=== PATIENT | female | born 1935 | race Caucasian/White ===

== ENCOUNTER 2023-04-10 04:31 | Emergency (ER) | payer MEDICARE, SELFPAY ==
[2023-04-10 04:32] VITALS: BP 130/82; PULSE 65; RESP 18; O2SAT 98
--- NOTE | 2023-04-10 04:38 | ED_ITS ---
HPI - Fall General Chief Complaint: Fall Stated Complaint: FALL Time Seen by Provider: 04/10/23 04:38 History of Present Illness HPI Narrative: demented skilled nursing patient fell and sustained a nose bleed. Does not take blood thinners. Nose bleed has stop. Sent in from [place] Related Data Home Medications Medication Instructions Recorded Confirmed acetaminophen 325 mg tablet 325 mg PO Q6H PRN fever or pain 04/10/23 04/10/23 (Tylenol) aspirin 325 mg capsule 325 mg PO DAILY 04/10/23 04/10/23 buspirone 5 mg tablet mg 04/10/23 calcium carbonate 600 mg-vitamin 1 tab PO DAILY 04/10/23 04/10/23 D3 20 mcg (800 unit) chewable tablet (Caltrate 600 plus D) cholecalciferol (vitamin D3) 50 04/10/23 mcg (2,000 unit) capsule ferrous sulfate 325 mg (65 mg mg PO 04/10/23 iron) tablet,delayed release sertraline 25 mg tablet mg 04/10/23 Allergies Allergy/AdvReac Type Severity Reaction Status Date / Time No Known Drug Allergies Allergy Verified 04/10/23 04:41 Exam Constitutional Vital Signs, click to edit/add: Last Vital Signs Pulse 65 04/10/23 04:32 Resp 18 04/10/23 04:32 BP 130/82 04/10/23 04:32 Pulse Ox 98 04/10/23 04:32 O2 Del Method Room Air 04/10/23 04:32 Common normals: no apparent distress and alert Eye Common normals: EOMs intact bilaterally and conjunctivae normal Respiratory Common normals: normal respiratory effort and no use of accessory muscles Cardio Common normals: regular rate, regular rhythm, S1 normal heart sound and S2 normal heart sound GI Common normals: Normal to inspection, nondistended, normoactive bowel sounds present, soft to palpation and non-tender Extremity Common normals: normal to inspection and full ROM Neuro Common normals: moves all extremities Psych Appearance: grossly normal Course Vital Signs Vital signs: Vital Signs Pulse Rate 65 04/10/23 04:32 Respiratory Rate 18 04/10/23 04:32 Blood Pressure 130/82 04/10/23 04:32 Pulse Oximetry 98 04/10/23 04:32 Oxygen Delivery Method Room Air 04/10/23 04:32 Pulse Rate 65 04/10/23 04:32 Respiratory Rate 18 04/10/23 04:32 Blood Pressure 130/82 04/10/23 04:32 Pulse Oximetry 98 04/10/23 04:32 Oxygen Delivery Method Room Air 04/10/23 04:32 MDM - Fall MDM Narrative Medical decision making narrative: patient presents after a fall striking her face and a nose bleed. Bleed stop spontaneously. Patient demented and not able to provide any history. Her nephew did show up and felt she was normal baseline to him. I did perform a CT of her brain and findings of age indeterminate mastoiditis. Will discharge patient back to the skilled nursing and recommend consult with ENT regarding the mastoiditis Lab Data Labs: Lab Results 04/10/23 04/10/23 Range/Units 04:50 05:15 WBC 7.2 (4.0-11.0) 10^3/uL RBC 3.68 L (4.20-5.40) 10^6/uL Hgb 11.9 L (12.0-16.0) g/dL Hct 34.5 L (36.0-48.0) % MCV 93.8 (81.0-99.0) fL MCH 32.3 (26.7-34.0) pg MCHC 34.5 (29.9-35.2) g/dL RDW 13.2 (11.0-15.0) % Plt Count 338 (150-450) 10^3/uL MPV 9.2 L (9.5-13.5) fL Neut % (Auto) 70.5 (43.0-75.0) % Lymph % (Auto) 17.5 L (20.5-60.0) % Caroline % (Auto) 10.8 (1.7-12.0) % Eos % (Auto) 0.4 L (0.9-7.0) % Baso % (Auto) 0.4 (0.2-2.0) % Neut # (Auto) 5.1 (1.4-6.5) 10^3/uL Lymph # (Auto) 1.3 (1.2-3.8) 10^3/uL Caroline # (Auto) 0.8 (0.3-0.8) 10^3/uL Eos # (Auto) 0.0 (0.0-0.7) 10^3/uL Baso # (Auto) 0.0 (0.0-0.1) 10^3/uL Abs Immat Gran (auto) 0.03 (0.00-0.03) 10^3/uL Imm/Tot Granulo (auto) 0.4 (0.0-0.5) % Sodium 136 (136-145) mmol/L Potassium 3.3 L (3.5-5.1) mmol/L Chloride 100 (98-107) mmol/L Carbon Dioxide 29.1 (21.0-32.0) mmol/L Anion Gap 10.2 BUN 11.0 (7.0-18.0) mg/dL Creatinine 0.58 (0.55-1.02) mg/dL Est GFR ( Amer) >60 (>=60) Est GFR (Non-Af Amer) >60 (>=60) BUN/Creatinine Ratio 19.0 Glucose 134 H (74-106) mg/dL Calcium 9.2 (8.5-10.1) mg/dL Stool Occult Blood Negative Discharge Plan Discharge Chief Complaint: Fall Clinical Impression: Chronic mastoiditis, right ear, Acute anterior epistaxis Patient Disposition: Home, Self-Care Prescriptions / Home Meds: No Action buspirone 5 mg tablet sertraline 25 mg tablet ferrous sulfate 325 mg (65 mg iron) tablet,delayed release (DR/EC) PO cholecalciferol (vitamin D3) 50 mcg (2,000 unit) capsule aspirin 325 mg capsule 325 mg PO DAILY Caltrate 600 plus D 600 mg-20 mcg (800 unit) tablet,chewable 1 tab PO DAILY acetaminophen [Tylenol] 325 mg tablet 325 mg PO Q6H PRN (Reason: fever or pain) Instructions: Nosebleed (ED), Mastoiditis (ED) Additional Instructions: consult ENT to manage mastoiditis Stand Alone Forms: Portal Instructions Referrals: ASHLEY BONILLA [Primary Care Provider] - 1 week
--- NOTE | 2023-04-10 04:40 | CT_ITS ---
The [address] [address] Patient Name: JIM GARCIA MRN: [id number] date: 1935 Sex: F Assigned Patient Location: ER Current Patient Location: ER Accession/Order Number: [id number] Exam Date: 04/10/2023 05:10 Report Date: 04/10/2023 05:48 At the request of: SHEYLA JAIME Procedure: CT head/brain wo con INDICATION: 87 years old; Female. Fall. TECHNIQUE: CT Head (ax/cor/sag reformats). Ionizing radiation dose reduced via iterative reconstruction/FBP blend and body size kV/mA adjustment. Comparison: Head CT dated 09/27/2022. FINDINGS: POSTOPERATIVE CHANGES: None. BRAIN PARENCHYMA: Old lacunar infarction in the santosh on the left. Old lacunar infarction versus dilated perivascular space in the lentiform nucleus on the right. No intraparenchymal or extra-axial hemorrhage. No mass effect. No midline shift or herniation. Patchy and confluent low-density in the white matter without mass effect consistent with small vessel ischemic change. VENTRICLES/EXTRA-AXIAL SPACES: Enlarged, consistent with atrophy. SINUSES/MASTOIDS: Visualized sinuses are clear. There is opacification of the right mastoid air cells, mastoid antrum, and right middle ear. This is consistent with indeterminate age otomastoiditis. Underlying cholesteatoma not excluded. Recommend follow-up with ENT. MSK: No displaced or depressed calvarial fracture. Generalized bony demineralization. Degenerative change in the TMJ. OTHER: No hyperdense intraluminal thrombus. Vascular calcifications. TECHNIQUE: CT imaging of the cervical spine was performed. IV contrast: None. Dose reduction techniques were achieved by using automated exposure control and/or adjustment of mA and/or kV according to patient size and/or use of iterative reconstruction technique. COMPARISON: Cervical CT dated 09/27/2022. Due to difficulty with patient positioning, the anterior margin of C7 and the upper thoracic vertebral bodies are not included in the examination. FINDINGS: POSTOPERATIVE CHANGES: None. ALIGNMENT: There is accentuation the normal cervical curve. The horizontal orientation of the lower cervical upper thoracic spine is seen which would be most consistent with increased thoracic kyphosis. This is unchanged as compared to the prior study. COMPRESSION FRACTURES: Generalized bony demineralization is seen. No fracture or vertebral body collapse is seen. No asymmetric widening of the facets is noted. PREVERTEBRAL SOFT TISSUES: Normal. CRANIOCERVICAL JUNCTION: There is a normal relationship of the occipital condyles, lateral masses of C1, and articular surfaces of C2. The base of the dens and body of C2 are intact. There is narrowing of the predental space with sclerosis and spurring. Spurring arising from the anterior arch of C1 with pseudoarthrosis between the osteophytes and the adjacent clivus. POSTERIOR FOSSA: Cerebellar tonsils are above the foramen magnum. Disc levels: C2-C3: No disc herniation. No spinal canal or foraminal narrowing. C3-C4: No disc herniation. No spinal canal or foraminal narrowing. C4-C5: No disc herniation. No spinal canal or foraminal narrowing. C5-C6: No disc herniation. No spinal canal or foraminal narrowing. C6-C7: No disc herniation. No spinal canal or foraminal narrowing. C7-T1: The anterior portion the vertebral bodies are not included. The central canal and neural foramina are patent. UPPER THORACIC SPINE: The anterior aspects of the T1 and T2 vertebral bodies are not included. The central canal and neural foramina are patent. OTHER: No thyroid nodule or adenopathy. CT/CT head/brain wo con IMPRESSION: 1. 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 Atrophy. 3. Vascular calcification. 4. Opacification of the right mastoids, mastoid antrum, and middle ear. This is consistent with indeterminate age otomastoiditis. Recommend ENT evaluation. 5. Allowing for difficulties with patient positioning, no fracture is seen. No focal disc herniation or bony stenosis is noted. Electronically authenticated by: NADYA KAHN Date: 04/10/2023 05:48
--- NOTE | 2023-04-10 04:40 | CT_ITS ---
The [address] [address] Patient Name: JIM GARCIA MRN: [id number] date: 1935 Sex: F Assigned Patient Location: ED.MAIN Current Patient Location: Accession/Order Number: [id number] Exam Date: 04/10/2023 05:13 Report Date: 04/10/2023 05:48 At the request of: SHEYLA JAIME Procedure: CT cervical spine wo con INDICATION: 87 years old; Female. Fall. TECHNIQUE: CT Head (ax/cor/sag reformats). Ionizing radiation dose reduced via iterative reconstruction/FBP blend and body size kV/mA adjustment. Comparison: Head CT dated 09/27/2022. FINDINGS: POSTOPERATIVE CHANGES: None. BRAIN PARENCHYMA: Old lacunar infarction in the santosh on the left. Old lacunar infarction versus dilated perivascular space in the lentiform nucleus on the right. No intraparenchymal or extra-axial hemorrhage. No mass effect. No midline shift or herniation. Patchy and confluent low-density in the white matter without mass effect consistent with small vessel ischemic change. VENTRICLES/EXTRA-AXIAL SPACES: Enlarged, consistent with atrophy. SINUSES/MASTOIDS: Visualized sinuses are clear. There is opacification of the right mastoid air cells, mastoid antrum, and right middle ear. This is consistent with indeterminate age otomastoiditis. Underlying cholesteatoma not excluded. Recommend follow-up with ENT. MSK: No displaced or depressed calvarial fracture. Generalized bony demineralization. Degenerative change in the TMJ. OTHER: No hyperdense intraluminal thrombus. Vascular calcifications. TECHNIQUE: CT imaging of the cervical spine was performed. IV contrast: None. Dose reduction techniques were achieved by using automated exposure control and/or adjustment of mA and/or kV according to patient size and/or use of iterative reconstruction technique. COMPARISON: Cervical CT dated 09/27/2022. Due to difficulty with patient positioning, the anterior margin of C7 and the upper thoracic vertebral bodies are not included in the examination. FINDINGS: POSTOPERATIVE CHANGES: None. ALIGNMENT: There is accentuation the normal cervical curve. The horizontal orientation of the lower cervical upper thoracic spine is seen which would be most consistent with increased thoracic kyphosis. This is unchanged as compared to the prior study. COMPRESSION FRACTURES: Generalized bony demineralization is seen. No fracture or vertebral body collapse is seen. No asymmetric widening of the facets is noted. PREVERTEBRAL SOFT TISSUES: Normal. CRANIOCERVICAL JUNCTION: There is a normal relationship of the occipital condyles, lateral masses of C1, and articular surfaces of C2. The base of the dens and body of C2 are intact. There is narrowing of the predental space with sclerosis and spurring. Spurring arising from the anterior arch of C1 with pseudoarthrosis between the osteophytes and the adjacent clivus. POSTERIOR FOSSA: Cerebellar tonsils are above the foramen magnum. Disc levels: C2-C3: No disc herniation. No spinal canal or foraminal narrowing. C3-C4: No disc herniation. No spinal canal or foraminal narrowing. C4-C5: No disc herniation. No spinal canal or foraminal narrowing. C5-C6: No disc herniation. No spinal canal or foraminal narrowing. C6-C7: No disc herniation. No spinal canal or foraminal narrowing. C7-T1: The anterior portion the vertebral bodies are not included. The central canal and neural foramina are patent. UPPER THORACIC SPINE: The anterior aspects of the T1 and T2 vertebral bodies are not included. The central canal and neural foramina are patent. OTHER: No thyroid nodule or adenopathy. CT/CT cervical spine wo con IMPRESSION: 1. 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 Atrophy. 3. Vascular calcification. 4. Opacification of the right mastoids, mastoid antrum, and middle ear. This is consistent with indeterminate age otomastoiditis. Recommend ENT evaluation. 5. Allowing for difficulties with patient positioning, no fracture is seen. No focal disc herniation or bony stenosis is noted. Electronically authenticated by: NADYA KAHN Date: 04/10/2023 05:48
[2023-04-10 05:19] LABS: Basophils Percent Auto 0.4 % (0.2-2.0); Eosinophils Percent Auto 0.4 % (0.9-7.0); Hematocrit 34.5 % (36.0-48.0); Hemoglobin 11.9 g/dL (12.0-16.0); Immature Granulocytes Abs Auto 0.03 10^3/uL (0.00-0.03); Immature Granulocytes Pct Auto 0.4 % (0.0-0.5); Lymphocytes Absolute Auto 1.3 10^3/uL (1.2-3.8); Lymphocytes Percent Auto 17.5 % (20.5-60.0); Mean Corpuscular HGB Conc 34.5 g/dL (29.9-35.2); Mean Corpuscular Hemoglobin 32.3 pg (26.7-34.0); Mean Corpuscular Volume 93.8 fL (81.0-99.0); Mean Platelet Volume 9.2 fL (9.5-13.5); Monocytes Absolute Auto 0.8 10^3/uL (0.3-0.8); Monocytes Percent Auto 10.8 % (1.7-12.0); Neutrophils Absolute Auto 5.1 10^3/uL (1.4-6.5); Neutrophils Percent Auto 70.5 % (43.0-75.0); Platelet Count 338 10^3/uL (150-450); Red Blood Count 3.68 10^6/uL (4.20-5.40); Red Cell Distribution Width 13.2 % (11.0-15.0); White Blood Count 7.2 10^3/uL (4.0-11.0)
[2023-04-10] MEDS: 0.9 % SODIUM CHLORIDE 1,000 ML 999 ML IV (05:20)
[2023-04-10 05:27] LABS: Anion Gap 10.2; Calcium 9.2 mg/dL (8.5-10.1); Carbon Dioxide 29.1 mmol/L (21.0-32.0); Chloride 100 mmol/L (98-107); Estimated GFR (African America >60 (>=60); Estimated GFR (Non-African Ame >60 (>=60); Glucose 134 mg/dL (74-106); Potassium 3.3 mmol/L (3.5-5.1); Sodium 136 mmol/L (136-145)
[2023-04-10 05:28] LABS: Occult Blood Negative
== END 2023-04-10 06:37 | disposition home or self-care (01) ==
PROVIDERS: Emergency Provider Internal Medicine; PCP Nurse Practitioner
DX: R04.0 Epistaxis (principal); H70.11 Chronic mastoiditis, right ear; Z79.82 Long term (current) use of aspirin; Z79.899 Other long term (current) drug therapy; W19.XXXA Unspecified fall, initial encounter
CPT/HCPCS: 36415; 70450; 72125; 80048; 85025; 99285; G0328

== ENCOUNTER 2023-07-28 13:52 | Emergency (ER) | payer MEDICARE, SELFPAY ==
[2023-07-28 14:07] VITALS: PULSE 76; RESP 18; TEMP 36.6; BMI 19.4
--- NOTE | 2023-07-28 14:15 | XR_ITS ---
The [address] [address] Patient Name: JIM GARCIA MRN: [id number] date: 1935 Sex: F Assigned Patient Location: ER Current Patient Location: ER Accession/Order Number: [id number] Exam Date: 07/28/2023 14:34 Report Date: 07/28/2023 14:50 At the request of: BONIFACIO LEMOS Procedure: XR ankle RT min 3V PROCEDURE: XR ankle RT min 3V COMPARISON: None. HISTORY: FALL A COUPLE DAYS AGO FINDINGS: BONES:No acute fracture or dislocation. Mild degenerative changes. Mild enthesopathic spurring plantar calcaneus SOFT TISSUES:Moderate bimalleolar soft tissue swelling EFFUSION:None visible. OTHER: Negative. XR/XR ankle RT min 3V IMPRESSION: Soft tissue swelling, no acute fracture Electronically authenticated by: SOPHIE BARKER Date: 07/28/2023 14:50
[2023-07-28 14:18] VITALS: PULSE 84; O2SAT 99
--- NOTE | 2023-07-28 14:53 | ED_ITS ---
Documented by User: Lucille Carrillo 07/28/23 15:18 HPI - Extremity Injury (Lower) General Chief Complaint: Extremity Injury, Lower Stated Complaint: LOWER EXTREMITY SWELLING TO RIGHT LEG Time Seen by Provider: 07/28/23 14:52 Source: patient Mode of arrival: walk-in Limitations: no limitations History of Present Illness HPI Narrative: 87-year-old female presents to the emergency room with chief complaint right ankle pain. patient had a witnessed fall at home in the senior living two days ago presents today with right ankle pain.Patient and family member denies striking her head. Patient states only right ankle tenderness but does not hurt as much now. Patient does have borderline dementia. No obvious swelling deformity other than right ankle swelling to all other extremities small abr asion to left knee. Related Data Home Medications Medication Instructions Recorded Confirmed acetaminophen 325 mg tablet 325 mg PO Q6H PRN fever or pain 04/10/23 07/28/23 (Tylenol) aspirin 325 mg capsule 325 mg PO DAILY 04/10/23 07/28/23 buspirone 5 mg tablet 5 mg PO DAILY 04/10/23 07/28/23 calcium carbonate 600 mg-vitamin 1 tab PO DAILY 04/10/23 07/28/23 D3 20 mcg (800 unit) chewable tablet (Caltrate 600 plus D) cholecalciferol (vitamin D3) 50 50 mcg PO DAILY 04/10/23 07/28/23 mcg (2,000 unit) capsule ferrous sulfate 325 mg (65 mg 325 mg PO DAILY 04/10/23 07/28/23 iron) tablet,delayed release sertraline 25 mg tablet 25 mg PO Q24H 04/10/23 07/28/23 Allergies Allergy/AdvReac Type Severity Reaction Status Date / Time No Known Drug Allergies Allergy Verified 04/10/23 04:41 Review of Systems ROS Narrative All Systems are negative except as noted/marked. Exam Narrative Exam Narrative: Nurses note and vital signs reviewed and patient is not hypoxic. General: The patient appears well and in no apparent distress. Patient is resting comfortably on cart. Skin: Warm, dry, no pallor noted. There is no rash noted. Head: Normocephalic, atraumatic Eye: Normal conjunctiva, no drainage, EOMI. PERRL Ears, Nose, Mouth, and Throat: oral mucosa is moist. Nares patent. Mouth without vesicles. Ear canals patent. Tm's without Erythema Cardiovascular: Regular Rate and Rhythm Respiratory: Patient is in no distress, no accessory muscle use, lungs are clear to auscultation, no wheezing, rales or rhonchi Musculoskeletal: right ankle swelling, no obvious dislocation, pulses intact latera sThe patient has no evidence of calf tenderness, no pitting edema, symmetrical pulses noted bilaterally Neurological: A&O x4, normal speech Psychiatric: Cooperative Constitutional Vital Signs, click to edit/add: Last Vital Signs Temp 97.8 F 07/28/23 14:07 Pulse 84 07/28/23 14:18 Resp 18 07/28/23 14:07 Pulse Ox 99 07/28/23 14:18 O2 Del Method Room Air 07/28/23 14:07 Course Vital Signs Vital signs: Vital Signs Temperature 97.8 F 07/28/23 14:07 Pulse Rate 76 07/28/23 14:07 Respiratory Rate 18 07/28/23 14:07 Oxygen Delivery Method Room Air 07/28/23 14:07 Temperature 97.8 F 07/28/23 14:07 Pulse Rate 84 07/28/23 14:18 Respiratory Rate 18 07/28/23 14:07 Pulse Oximetry 99 07/28/23 14:18 Oxygen Delivery Method Room Air 07/28/23 14:07 MDM - Extremity Injury (Lower) MDM Narrative Medical decision making narrative: She presented here with a chief complaint of fall two days ago at her nursing facility. She is alert and oriented appropriate to herself she does have a history of dementia. Patient denies any head or neck pain and bruising swelling or abnormalities. She is brought here by family members chief complaint right ankle swelling left knee abrasion. X-rays of right ankle shows no acute deformity or fracture. Patient will be placed in an Caesar wrap. She'll follow-up Dr. Willett's office for ankle sprain. Caesar wrap applied by nursing staff extremity is neurovascular intact before and after application. Ankle sprain Rice care instructions were given. Family members at bedside agree with plan of care Differential Diagnosis Differential diagnosis: Likely ankle sprain and strain Medical Records Attestation: I reviewed the patient's medical records. Imaging Data ankle: Attestation: I have reviewed the pertinent imaging results. Radiologist's impression: JIM GARCIA MRN: [facility]:[id number] date: 1935 Sex: F Assigned Patient Location: ER Current Patient Location: ER Accession/Order Number: [id number] Exam Date: 07/28/2023 14:34 Report Date: 07/28/2023 14:50 At the request of: BONIFACIO GAMEZ Procedure: XR ankle RT min 3V PROCEDURE: XR ankle RT min 3V COMPARISON: None. HISTORY: FALL A COUPLE DAYS AGO FINDINGS: BONES:No acute fracture or dislocation. Mild degenerative changes. Mild enthesopathic spurring plantar calcaneus SOFT TISSUES:Moderate bimalleolar soft tissue swelling EFFUSION:None visible. OTHER: Negative. IMPRESSION: Soft tissue swelling, no acute fracture Electronically authenticated by: SOPHIE BARKER Date: 07/28/2023 14:50 Discharge Plan Discharge Chief Complaint: Extremity Injury, Lower Clinical Impression: Ankle sprain and strain Patient Disposition: Home, Self-Care Time of Disposition Decision: 15:07 Condition: Good Prescriptions / Home Meds: No Action buspirone 5 mg tablet 5 mg PO DAILY sertraline 25 mg tablet 25 mg PO Q24H ferrous sulfate 325 mg (65 mg iron) tablet,delayed release (DR/EC) 325 mg PO DAILY cholecalciferol (vitamin D3) 50 mcg (2,000 unit) capsule 50 mcg PO DAILY aspirin 325 mg capsule 325 mg PO DAILY Caltrate 600 plus D 600 mg-20 mcg (800 unit) tablet,chewable 1 tab PO DAILY acetaminophen [Tylenol] 325 mg tablet 325 mg PO Q6H PRN (Reason: fever or pain) Instructions: P.R.I.C.E. Treatment (ED), Ankle Strain (ED) Stand Alone Forms: Portal Instructions Referrals: Ever Willett DPM [Physician] - 1 week ASHLEY BONILLA [Primary Care Provider] - 1 week Discharge Date/Time: 07/28/23 15:26 Documented by User: Bonifacio Gamez MD 07/28/23 20:56 HPI - Extremity Injury (Lower) General Chief Complaint: Extremity Injury, Lower Stated Complaint: LOWER EXTREMITY SWELLING TO RIGHT LEG Time Seen by Provider: 07/28/23 14:52 Related Data Home Medications Medication Instructions Recorded Confirmed acetaminophen 325 mg tablet 325 mg PO Q6H PRN fever or pain 04/10/23 07/28/23 (Tylenol) aspirin 325 mg capsule 325 mg PO DAILY 04/10/23 07/28/23 buspirone 5 mg tablet 5 mg PO DAILY 04/10/23 07/28/23 calcium carbonate 600 mg-vitamin 1 tab PO DAILY 04/10/23 07/28/23 D3 20 mcg (800 unit) chewable tablet (Caltrate 600 plus D) cholecalciferol (vitamin D3) 50 50 mcg PO DAILY 04/10/23 07/28/23 mcg (2,000 unit) capsule ferrous sulfate 325 mg (65 mg 325 mg PO DAILY 04/10/23 07/28/23 iron) tablet,delayed release sertraline 25 mg tablet 25 mg PO Q24H 04/10/23 07/28/23 Allergies Allergy/AdvReac Type Severity Reaction Status Date / Time No Known Drug Allergies Allergy Verified 04/10/23 04:41 Exam Constitutional Vital Signs, click to edit/add: Last Vital Signs Temp 97.8 F 07/28/23 14:07 Pulse 84 07/28/23 14:18 Resp 18 07/28/23 14:07 Pulse Ox 99 07/28/23 14:18 O2 Del Method Room Air 07/28/23 14:07 Course Vital Signs Vital signs: Vital Signs Temperature 97.8 F 07/28/23 14:07 Pulse Rate 76 07/28/23 14:07 Respiratory Rate 18 07/28/23 14:07 Oxygen Delivery Method Room Air 07/28/23 14:07 Temperature 97.8 F 07/28/23 14:07 Pulse Rate 84 07/28/23 14:18 Respiratory Rate 18 07/28/23 14:07 Pulse Oximetry 99 07/28/23 14:18 Oxygen Delivery Method Room Air 07/28/23 14:07 MDM - Extremity Injury (Lower) MDM Narrative Medical decision making narrative: She presented here with a chief complaint of fall two days ago at her nursing facility. She is alert and oriented appropriate to herself she does have a history of dementia. Patient denies any head or neck pain and bruising swelling or abnormalities. She is brought here by family members chief complaint right ankle swelling left knee abrasion. X-rays of right ankle shows no acute deformity or fracture. Patient will be placed in an Caesar wrap. She'll follow-up Dr. Willett's office for ankle sprain. Caesar wrap applied by nursing staff extremity is neurovascular intact before and after application. Ankle sprain Rice care instructions were given. Family members at bedside agree with plan of care I, Dr Gamez, have reviewed the above progress note and course of action in the ER; agree with the above. I have gone over history and physical, and discussed disposition and treatment plan with the patient. Discharge Plan Discharge Chief Complaint: Extremity Injury, Lower Clinical Impression: Ankle sprain and strain Patient Disposition: Home, Self-Care Time of Disposition Decision: 15:07 Condition: Good Prescriptions / Home Meds: No Action buspirone 5 mg tablet 5 mg PO DAILY sertraline 25 mg tablet 25 mg PO Q24H ferrous sulfate 325 mg (65 mg iron) tablet,delayed release (DR/EC) 325 mg PO DAILY cholecalciferol (vitamin D3) 50 mcg (2,000 unit) capsule 50 mcg PO DAILY aspirin 325 mg capsule 325 mg PO DAILY Caltrate 600 plus D 600 mg-20 mcg (800 unit) tablet,chewable 1 tab PO DAILY acetaminophen [Tylenol] 325 mg tablet 325 mg PO Q6H PRN (Reason: fever or pain) Instructions: P.R.I.C.E. Treatment (ED), Ankle Strain (ED) Stand Alone Forms: Portal Instructions Referrals: Ever Willett DPM [Physician] - 1 week ASHLEY BONILLA [Primary Care Provider] - 1 week Discharge Date/Time: 07/28/23 15:26
== END 2023-07-28 15:26 | disposition home or self-care (01) ==
PROVIDERS: Emergency Provider Emergency Medicine; PCP Nurse Practitioner
DX: S93.401A Sprain of unspecified ligament of right ankle, initial encounter (principal); S96.911A Strain of unspecified muscle and tendon at ankle and foot level, right foot, initial encounter; W19.XXXA Unspecified fall, initial encounter; Z79.82 Long term (current) use of aspirin; Z79.899 Other long term (current) drug therapy; F03.90 Unspecified dementia, unspecified severity, without behavioral disturbance, psychotic disturbance, mood disturbance, and anxiety
CPT/HCPCS: 73610; 99283

== ENCOUNTER 2023-09-22 17:54 | Emergency (ER) | payer MEDICARE, SELFPAY ==
--- OUTSIDE RECORDS SUMMARY | 2023-09-22 18:01 | XMS_ITS | CCD ---
Author Name Unknown Address [address] [place] [address] Organization [facility] Care Team Providers Care [employer] Optician Name Role Phone Rylie Galvan Unavailable Richard He Primary Care Provider UnavailRichard Loomis Primary Care Provider UnavailRichard Loomis Primary Care Provider UnavailJULES Chaves Primary Care Provider MD Juliet Green Admit Provider MD Leighton Valente Other Provider MD Galen Escobar Other Provider MD Lilian Van Other Provider DO Silvestre Saunders Other Provider [phone] MD Bulmaro Moses II Other Provider MD Yani Cyr Attending Provider ADELE KATZ Admitting Unavailable DR TAYLOR PENA Consulting Unavailable OLVERA, ASHLEY Primary Care Unavailable ADELE KATZ Attending Unavailable ADELE KATZ Consulting Unavailable PAY ., DR VALDOVINOS Attending Unavailable OLVERA, ASHLEY Primary Care Unavailable PAY ., DR VALDOVINOS Consulting Unavailable PAY ., DR VALDOVINOS Admitting Unavailable ISRAEL JUÁREZ Consulting Unavailable DIAB ., JACIEL Admitting Unavailable OLVERA, ASHLEY Primary Care Unavailable DIAB ., JACIEL Attending Unavailable Kanu Burk Consulting Unavailable SOPHIE SINGLETON Consulting Unavailable DIAB ., JACIEL Consulting Unavailable RAVEN RENNER Consulting Unavailable MADELEINE HEREDIA Consulting Unavailable DR GAB LEE Attending Unavailable OLVERA, ASHLEY Primary Care Unavailable DR GAB LEE Consulting Unavailable DR GAB LEE Admitting Unavailable JANETTE, DR MARISSA Orosco Consulting Unavailnico PENA, DR TAYLOR Grimes Consulting Unavailable BRIGHT, DR LENI Steele Consulting Unavailable ERICKA ., FAHAD HAMILTON Consulting UnavailVAEL Maciel Consulting Unavailable ASHLEY OLVERA Primary Care Unavailable JACKIE, DR ONEIL Consulting Unavailable JACKIE, DR ONEIL Admitting Unavailable JACKIE, DR ONEIL Attending Unavailable Leighton Valente Consulting Unavailable Juliet Green Admitting Unavailable Yani Cyr Attending Unavailable Ashley Olvera Primary Care Unavailable Galen Escobar Consulting Unavailable Lilian Van Consulting Unavailable Silvestre Saunders Consulting Unavailable Bulmaro Moses II Consulting UnavailLeighton Anglin Unavailable Medications Current Medications Medication Drug Class(es) Dates Sig (Normalized) Sig (Original) acetaminophen 500 mg oral tablet (4 sources) Start: 10-03-2022 take 1000 mg by mouth every eight hours Acetaminophen Active 1000 MG PO Every 8 hours 0 October 03, 2022 12:00am Start: 04-09-2016 take 1 tablet by senia th every four hours as needed acetaminophen (TYLENOL) 325 mg tablet Take 1 tablet by mouth every 4 hours as needed. 0 04/09/2016 Active Comment on above: Take 1 tablet by senia th every 4 hours as needed. aspirin 325 mg oral tablet (1 source) Platelet Aggregation Inhibitor, Nonsteroidal Anti-inflammatory Drug Start: 10-03-2022 take 325 mg by mouth once daily Aspirin Active 325 MG PO Daily 0 October 03, 2022 12:00am Calcium Citrate-Vitamin D3 (1 source) Start: 09-28-2022 take 1 tablet by mouth once daily Calcium Citrate-Vitamin D3 Active 1 TAB PO Daily September 28, 2022 1:00am Citracal +D3 250-107-500 MG-MG-UNIT (2 sources) Citracal +D3 250-107-500 MG-MG-UNIT Orally Active ferrous sulfate 325 mg oral tablet (3 sources) Start: 09-28-2022 take 325 mg by mouth once daily Ferrous Sulfate Active 325 MG PO Daily September 28, 2022 1:00am take 1 tablet by mouth once jeanine y Ferrous Sulfate 325 (65 Fe) MG 1 tablet Orally Once a day Active take 1 tablet by senia th every twenty-four hours Ferrous Sulfate 325 (65 Fe) MG 1 tablet Orally Once a day Active lutein 20 mg oral tablet (5 sources) take 1 capsule by mo [facility] once daily Lutein 20 MG 1 capsule with a meal Orally Once a day Active LUTEIN ORAL Take by mouth. 0 Active [facility] hours Lutein 20 MG 1 capsule with a meal Orall y Once a day Active Comment on above: Take by mouth. Completed/Discontinued Medications Medication Drug Class(es) Dates Sig (Normalized) Sig (Original) ibandronic acid 150 mg oral tablet (5 sources) Bisphosphonate Start: 05-06-2014 Ibandronate 150 mg tablet loperamide hydrochloride 2 mg oral capsule (3 sources) Opioid Agonist Start: 04-19-2016 take 1 capsule by mouth twice daily, then take 1 capsule by mouth at breakfast, then take 1 capsule by mouth at dinner loperamide (IMODIUM) 2 mg cap(s) Take 1 capsule by mouth twice daily. Take 1 capsule with breakfast and 1 with dinner 60 capsule 5 04/19/2016 Active Comment on above: [facility]. Take 1 capsule with breakfast and 1 with dinner meclizine hydrochloride 25 mg chewable tablet (3 sources) Antiemetic take 1 tablet by mouth three times daily as needed Meclizine HCl 25 mg Chew Tab Take by mouth three times daily as needed. 0 Active Comment on above: Take by mouth three times daily as needed. meloxicam 7.5 mg oral tablet (3 sources) Nonsteroidal Anti-inflammatory Drug Start: 05-15-2014 meloxicam (MOBIC) 7.5 mg tablet MV,CA,MIN/IRON FUM/FA/VIT K (MULTI FOR HER ORAL) (3 sources) MV,CA,MIN/IRON FUM/FA/VIT K (MULTI FOR HER ORAL) Take by mouth. 0 Active Comment on above: Take by mouth. oxyCODONE hydrochloride 5 mg oral tablet (3 sources) Opioid Agonist Start: 04-09-2016 take 1 tablet by mouth every four hours as needed oxyCODONE immediate release (PERCOLONE) 5 mg immediate release tablet Take 1 tablet by mouth every 4 hours as needed. 40 tablet 0 04/09/2016 Active Comment on above: Take 1 tablet by [facility] every 4 hours as needed. simvastatin 20 mg oral tablet (5 sources) HMG-CoA Reductase Inhibitor Start: 05-16-2014 simvastatin (ZOCOR) 20 mg tablet Suprep Bowel Prep - (2 sources) Start: 01-27-2016 Suprep Bowel Prep - 1 Orally Daily for 1 day(s) Jan, Not-Taking Problems Active Problems Problem Classification Problem Date Documented Date Episodic/Chronic Cancer of colon (5 sources) Malignant tumor of colon; Translations: [Malignant neoplasm of colon, unspecified] Onset: 04-04-2016 04-04-2016 Chronic Deficiency and other anemia (2 sources) Iron deficiency anemia; Translations: [Iron deficiency anemia, unspecified] Episodic Deficiency and other anemia (4 sources) Anemia, unspecified; Translations: [ANEMIA UNSPECIFIED] Onset: 10-14-2022 Episodic Diverticulosis and diverticulitis (2 sources) Diverticular disease; Translations: [Diverticulosis of intestine, part unspecified, without perforation or abscess without bleeding] Chronic E Codes: Fall (6 sources) Unspecified fall, initial encounter; Translations: [Fall] Onset: 12-13-2021 Resolved: 12-13-2021 Episodic Fluid and electrolyte disorders (2 sources) Hypokalemia; Translations: [Hypo-osmolality and hyponatremia] Onset: 05-12-2022 Episodic Fracture of neck of femur (hip) (4 sources) Fracture of bone of hip region; Translations: [Fracture of unspecified part of neck of left femur, initial encounter for closed fracture] Onset: 09-28-2022 09-28-2022 Episodic Other aftercare (1 source) Other half-way (current) drug therapy; Translations: [OTH [facility] CURRENT DRUG THERAPY] Onset: 09-29-2022 Episodic Other non-traumatic joint disorders (3 sources) Pain in left hip; Translations: [PAIN IN LEFT HIP] Onset: 09-27-2022 Episodic Spondylosis; intervertebral disc disorders; other back problems (2 sources) Other intervertebral disc degeneration, lumbar region; Translations: [Other cervical disc degeneration, unspecified cervical region] Onset: 09-29-2022 Chronic Thyroid disorders (1 source) Hypothyroidism, unspecified; Translations: [HYPOTHYROIDISM UNSPECIFIED] Onset: 05-12-2022 Chronic Unclassified (1 source) CONTACT W/AND (SUSP) EXPOS COVID-19; Translations: [CONTACT W/AND (SUSP) EXPOS COVID-19] Onset: 05-12-2022 Unclassified (1 source) Displaced intertrochanteric fracture of left femur, initial encounter for closed fracture; Translations: [Displaced intertrochanteric fracture of left femur, initial encounter for closed fracture] Onset: 09-28-2022 Past or Other Problems Problem Classification Problem Date Documented Da te Episodic/Chronic Bacterial infection; unspecified site (2 sources) Proteus (mirabilis) (morganii) as the cause of diseases classified elsewhere; Translations: [Unspecified Escherichia coli [E. coli] as the cause of diseases classified elsewhere] Onset: 05-12-2022 Episodic Deficiency and other anemia (1 source) Iron deficiency anemia, unspecified; Translations: [IRON DEFICIENCY ANEMIA UNSPECIFIED] Onset: 05-12-2022 Episodic E Codes: Place of occurrence (1 source) Unspecified place in unspecified non-institutional (private) residence as the place of occurrence of the external cause Onset: 12-13-2021 Resolved: 12-13-2021 Episodic Nonspecific chest pain (1 source) Other chest pain; Translations: [OTHER CHEST PAIN] Onset: 05-12-2022 Episodic Other fractures (1 source) Unspecified fracture of sacrum, initial encounter for closed fracture; Translations: [UNS FX SACRUM INITIAL CLOS FRACTURE] Onset: 05-03-2022 Episodic Other fractures (4 sources) Other specified fracture of right pubis, initial encounter for closed fracture; Translations: [OTHER SPEC FX RT PUBIS INIT CLOS FX] Onset: 03-31-2022 Episodic Other fractures (1 source) Collapsed vertebra, not elsewhere classified, thoracic region, subsequent encounter for fracture with routine healing; Translations: [COLLAPSED VERT NEC THOR SUB RTN HL] Onset: 05-12-2022 Episodic Other injuries and conditions due to external causes (1 source) Unspecified injury of head, initial encounter Onset: 12-13-2021 Resolved: 12-13-2021 Episodic Other non-traumatic joint disorders (5 sources) Pain in right hip; Translations: [PAIN IN RIGHT HIP] Onset: 12-13-2021 Resolved: 12-13-2021 Episodic Screening and history of mental health and substance abuse codes (1 source) Personal history of nicotine dependence; Translations: [PERSONAL HISTORY OF NICOTINE DEPEND] Onset: 12-14-2021 Episodic Superficial injury; contusion (1 source) Contusion of right hip, initial encounter; Translations: [CONTUSION RIGHT HIP INITIAL ENC] Onset: 12-14-2021 Episodic Urinary tract infections (1 source) Urinary tract infection, site not specified; Translations: [UTI SITE NOT SPECIFIED] Onset: 05-12-2022 Episodic Results Test Name Value Interpretation Reference Range Facility CBC AUTO DIFFon 10-14-2022 BASO # 0.0 103/ul Normal 0.0-0.1 [facility] Comment on above: Performed By: #### C HELENA CARCAMO #### [facility] [address] [address] [address] Nidhi Dawn Basophils/100 WBC (Bld) 0.3 % Normal 0.2-2.0 [facility] Comment on above: Performed By: #### C HELENA CARCAMO #### [facility] [address] [place] [address] Dr. Nidhi Dawn EO # 0.1 103/ul Normal 0.0-0.7 [facility] Comment on above: Performed By: #### C HELENA CARCAMO #### [facility] [address] [place] [address] Dr. Nidhi Dawn Eosinophils/100 WBC (Bld) 1.2 % Normal 0.9-7.0 [facility] Comment on above: Performed By: #### C HELENA CARCAMO #### [facility] [address] [place] [address] Dr. Nidhi Dawn Erythrocyte distribution width (RBC) [Ratio] 15.7 % Critically high 11.0-15.0 [facility] Comment on above: Performed By: #### C HELENA CARCAMO #### [facility] [address] [place] [address] Dr. Nidhi Dawn Hematocrit (Bld) [Volume fraction] 28.5 % Critically low 36.0-48.0 [facility] Comment on above: Performed By: #### C HELENA CARCAMO #### [facility] [address] [place] [address] Dr. Nidhi Dawn Hemoglobin (Bld) [Mass/Vol] 8.9 g/dL Critically low 12.0-16.0 [facility] Comment on above: Performed By: #### C DONA, CMADM #### [facility] [address] [address] [address] Nidhi Dawn IG # 0.04 10e3/ul Critically high 0.00-0.03 [facility] Comment on above: Performed By: #### C MP, CMADM #### [facility] [address] [address] [address] Nidhi Dawn IG % 0.7 % Critically high 0.0-0.5 [facility] Comment on above: Performed By: #### C MP, CMADM #### [facility] [address] [address] [address] Nidhi Dawn LYMPH # 0.9 103/ul Critically low 1.2-3.8 [facility] Comment on above: Performed By: #### C MP, CMADM #### [facility] [address] [place] [address] Dr. Nidhi Dawn Lymphocytes/100 WBC (Bld) 15.6 % Critically low 20.5-60.0 [facility] Comment on above: Performed By: #### C MP, CMADM #### [facility] [address] [address] [address] Nidhi Dawn MANUAL DIFF REQ NO Normal [facility] Comment on above: Performed By: #### C MP, CMADM #### [facility] [address] [address] [address] Nidhi Dawn MCH (RBC) [Entitic mass] 30.8 pg Normal 26.7-34.0 [facility] Comment on above: Performed By: #### C MP, CMADM #### [facility] [address] [address] [address] Nidhi Dawn MCHC (RBC) [Mass/Vol] 31.2 g/dL Normal 29.9-35.2 [facility] Comment on above: Performed By: #### C MP, CMADM #### [facility] [address] [place] [address] Dr. Nidhi Dawn MCV (RBC) [Entitic vol] 98.6 fL Normal 81.0-99.0 [facility] Comment on above: Performed By: #### C MP, CMADM #### [facility] [address] [address] [address] Nidhi Dawn MONO # 0.7 103/ul Normal 0.3-0.8 [facility] Comment on above: Performed By: #### C MP, CMADM #### [facility] [address] [address] [address] Nidhi Dawn Monocytes/100 WBC (Bld) 11.1 % Normal 1.7-12.0 [facility] Comment on above: Performed By: #### C MP, CMADM #### [facility] [address] [address] [address] Nidhi Dawn NEUT # 4.2 103/ul Normal 1.4-6.5 [facility] Comment on above: Performed By: #### C MP, CMADM #### [facility] [address] [place] [address] Dr. Nidhi Dawn Neutrophils/100 WBC (Bld) 71.1 % Normal 43.0-75.0 [facility] Comment on above: Performed By: #### C DONA, CMADM #### [facility] [address] [place] [address] Dr. Nidhi Dawn Platelet mean volume (Bld) [Entitic vol] 8.5 fL Critically low 9.5-13.5 [facility] Comment on above: Performed By: #### C DONA, CMADM #### [facility] [address] [address] [address] Nidhi Dawn PLT 614 103/ul Critically high 150-450 [facility] Comment on above: Performed By: #### C DONA, CMADM #### [facility] [address] [address] [address] Nidhi Dawn RBC 2.89 106/ul Critically low 4.20-5.40 [facility] Comment on above: Performed By: #### C DONA, CMADM #### [facility] [address] [address] [address] Nidhi Dawn WBC 5.8 103/ul Normal 4.0-11.0 [facility] Comment on above: Performed By: #### C MP, CMADM #### [facility] [address] [address] [address] Nidhi Dawn Basic Metabolic Panelon - Anion gap [Moles/Vol] 8.2 mmol/L Normal 6.0-15.0 [facility] Comment on above: Performed By: #### F ER, FE and TIBC #### [facility] [address] Calcium [Mass/Vol] 9.1 mg/dL Normal 8.6-10.3 [facility] Comment on above: Performed By: #### F ER, FE and TIBC #### [facility] [address] Chloride [Moles/Vol] 102 mmol/L Normal 98-107 [facility] Comment on above: Performed By: #### F ER, FE and TIBC #### [facility] [address] CO2 [Moles/Vol] 30.5 mmol/L Normal 21.0-31.0 [facility] Comment on above: Performed By: #### F ER, FE and TIBC #### [facility] [address] [place] [address] [place] Creatinine [Mass/Vol] 0.35 mg/dL Low 0.60-1.20 [facility] Comment on above: Performed By: #### F ER, FE and TIBC #### [facility] [address] [place] [address] [place] Creatinine Clr Calc Pharmacy 35.59 Normal [facility] Comment on above: Result Comment: PERF ORMED BY: [place] [address] PATHOLOGIST [employer] CLARICE OSWALD M.D. Performed By: #### F ER, FE and TIBC #### [facility] [address] [place] [address] [place] GFR/1.73 sq M.predicted MDRD (S/P/Bld) [Vol rate/Area] mL/min/{1.73_m2} Normal [facility] Comment on above: Performed By: #### F ER, FE and TIBC #### [facility] [address] Glucose [Mass/Vol] 104 mg/dL Normal 74-109 [facility] Comment on above: Result Comment: [place] Glucose Reference Range is dependent on time and content of last meal. Glucose of more than 200 mg/dL in a nonstressed, ambulatory subject supports the diagnosis of Diabetes Mellitus. ADA recommended reference range Performed By: #### F ER, FE and TIBC #### [facility] [address] Potassium [Moles/Vol] 3.7 mmol/L Normal 3.5-5.1 [facility] Comment on above: Performed By: #### F ER, FE and TIBC #### [facility] [address] Sodium [Moles/Vol] 137 mmol/L Normal 136-145 [facility] Comment on above: Performed By: #### F ER, FE and TIBC #### [facility] [address] Urea nitrogen [Mass/Vol] 10 mg/dL Normal 7-25 [facility] Comment on above: Performed By: #### F ER, FE and TIBC #### [facility] [address] Basophils Auto (Bld) [#/Vol] Ordered By: Yani Cyr on 10-03-2022 Basophils (Bld) [#/Vol] 0.0 10*3/uL 0.0-0.2 [facility] Basophils/100 WBC Auto (Bld) Ordered By: Yani Cyr on 10-03-2022 Basophils/100 WBC (Bld) 0.4 % . [facility] Calcium [Mass/volume] in Ser um or PlasmaOrdered By: Yani Cyr on 10-03-2022 Calcium [Mass/Vol] 9.1 mg/dL 8.6-10.3 [facility] Carbon dioxide, total [Moles /volume] in Serum or PlasmaOrdered By: Yani Cyr on 10-03-2022 CO2 [Moles/Vol] 30.5 mmol/L 21.0-31.0 [facility] Chloride [Moles/volume] in S enma or PlasmaOrdered By: Yani Cyr on 10-03-2022 Chloride [Moles/Vol] 102 mmol/L 98-107 [facility] Complete Blood Count Auto Di ffon 10-03-2022 Basophils (Bld) [#/Vol] 0.0 10*3/uL Normal 0.0-0.2 [facility] Comment on above: Result Comment: PERF ORMED BY: [place] [address] PATHOLOGIST [employer] CLARICE OSWALD M.D. Performed By: #### F ER, FE and TIBC #### [address] Basophils/100 WBC (Bld) 0.4 % Normal . [facility] Comment on above: Performed By: #### F ER, FE and TIBC #### [facility] [address] [place] [address] Eosinophils (Bld) [#/Vol] 0.1 10*3/uL Normal 0.0-0.45 [facility] Comment on above: Performed By: #### F ER, FE and TIBC #### [facility] [address] [place] [address] [place] Eosinophils/100 WBC (Bld) 1.9 % Normal . [facility] Comment on above: Performed By: #### F ER, FE and TIBC #### [facility] [address] [place] [address] Erythrocyte distribution width (RBC) [Ratio] 14.5 % Normal 11.9-15.3 [facility] Comment on above: Performed By: #### F ER, FE and TIBC #### [facility] [address] [place] [address] Hematocrit (Bld) [Volume fraction] 25.7 % Low 34.0-46.4 [facility] Comment on above: Performed By: #### F ER, FE and TIBC #### [address] Hemoglobin (Bld) [Mass/Vol] 8.7 g/dL Low 11.8-15.4 [facility] Comment on above: Performed By: #### F ER, FE and TIBC #### [address] Lymphocytes (Bld) [#/Vol] 1.1 10*3/uL Normal 1.00-4.8 [facility] Comment on above: Performed By: #### F ER, FE and TIBC #### [address] Lymphocytes/100 WBC (Bld) 14.2 % Normal . [facility] Comment on above: Performed By: #### F ER, FE and TIBC #### [address] MCH (RBC) [Entitic mass] 31.5 pg Normal 24.7-34.3 [facility] Comment on above: Performed By: #### F ER, FE and TIBC #### [address] MCV (RBC) [Entitic vol] 92.5 fL Normal 80-100 [facility] Comment on above: Performed By: #### F ER, FE and TIBC #### [address] Mean Corpuscular HGB Conc 34.1 g/dL Normal 32.0-35.0 [facility] Comment on above: Performed By: #### F ER, FE and TIBC #### [address] Monocytes (Bld) [#/Vol] 0.8 10*3/uL Normal 0.0-0.8 [facility] Comment on above: Performed By: #### F ER, FE and TIBC #### [address] [place] [address] [place] Monocytes/100 WBC (Bld) 10.5 % Normal . [facility] Comment on above: Performed By: #### F ER, FE and TIBC #### [facility] [address] Neutrophils (Bld) [#/Vol] 5.5 10*3/uL Normal 1.8-7.7 [facility] Comment on above: Performed By: #### F ER, FE and TIBC #### [facility] [address] Neutrophils/100 WBC (Bld) 73.0 % Normal . [facility] Comment on above: Performed By: #### F ER, FE and TIBC #### [address] NRBC% 0.1 /100{WBC} Normal 0-0.5 [facility] Comment on above: Performed By: #### F ER, FE and TIBC #### [address] Platelet mean volume (Bld) [Entitic vol] 7.5 fL Normal 6.3-10.7 [facility] Comment on above: Performed By: #### F ER, FE and TIBC #### [place] [address] [place] Platelets (Bld) [#/Vol] 322 10*3/uL Normal 150-450 [facility] Comment on above: Performed By: #### F ER, FE and TIBC #### [place] [address] [place] RBC (Bld) [#/Vol] 2.77 10*6/uL Low 3.60-5.00 [facility] Comment on above: Performed By: #### F ER, FE and TIBC #### [place] [address] [place] WBC (Bld) [#/Vol] 7.6 10*3/uL Normal 3.8-11.6 [facility] Comment on above: Performed By: #### F ER, FE and TIBC #### [facility] [address] Creatinine [Mass/volume] in Serum or PlasmaOrdered By: Yani Cyr on 10-03-2022 Creatinine [Mass/Vol] 0.35 mg/dL 0.60-1.20 [facility] Eosinophils Auto (Bld) [#/Vo l]Ordered By: Yani Cyr on 10-03-2022 Eosinophils (Bld) [#/Vol] 0.1 10*3/uL 0.0-0.45 [facility] Eosinophils/100 WBC Auto (Bl d)Ordered By: Yani Cyr on 10-03-2022 Eosinophils/100 WBC (Bld) 1.9 % . [facility] Erythrocyte distribution wid th Auto (RBC) [Ratio]Ordered By: Yani Cyr on 10-03-2022 Erythrocyte distribution width (RBC) [Ratio] 14.5 % 11.9-15.3 [facility] Glucose [Mass/volume] in Ser um or PlasmaOrdered By: Yani Cyr on 10-03-2022 Glucose [Mass/Vol] 104 mg/dL 74-109 [facility] Comment on above: ADA recommended refe rence rangeRandom Glucose Reference Range is dependent on time and content of last meal. Glucose of more than 200 mg/dL in a nonstressed, ambulatory subject supports the diagnosis of Diabetes Mellitus. Hematocrit Auto (Bld) [Volum e fraction]Ordered By: Yani Cyr on 10-03-2022 Hematocrit (Bld) [Volume fraction] 25.7 % 34.0-46.4 [facility] Hemoglobin [Mass/volume] in BloodOrdered By: Yani Cyr on 10-03-2022 Hemoglobin (Bld) [Mass/Vol] 8.7 g/dL 11.8-15.4 [facility] - Chemistry and C hemistry - challengeOrdered By: Yani Cyr on 10-03-2022 GFR/1.73 sq M.predicted MDRD (S/P/Bld) [Vol rate/Area] mL/min/{1.73_m2} [facility] Leukocytes [#/volume] correc anna marie for nucleated erythrocytes in Blood by Automated counOrdered By: Yani Cyr on 10-03-2022 WBC corrected for nucl RBC Auto (Bld) [#/Vol] 7.6 10*3/uL 3.8-11.6 [facility] Lymphocytes Auto (Bld) [#/Vo l]Ordered By: Yani Cyr on 10-03-2022 Lymphocytes (Bld) [#/Vol] 1.1 10*3/uL 1.00-4.8 [facility] Lymphocytes/100 WBC Auto (Bl d)Ordered By: Yani Cyr on 10-03-2022 Lymphocytes/100 WBC (Bld) 14.2 % . [facility] MCH Auto (RBC) [Entitic mass ]Ordered By: Yani Cyr on 10-03-2022 MCH (RBC) [Entitic mass] 31.5 pg 24.7-34.3 [facility] MCHC Auto (RBC) [Mass/Vol]Or dered By: Yani Cyr on 10-03-2022 MCHC (RBC) [Mass/Vol] 34.1 g/dL 32.0-35.0 [facility] MCV Auto (RBC) [Entitic vol] Ordered By: Yani Cyr on 10-03-2022 MCV (RBC) [Entitic vol] 92.5 fL 80-100 [facility] [facility] Monocytes Auto (Bld) [#/Vol] Ordered By: Yani Cyr on 10-03-2022 Monocytes (Bld) [#/Vol] 0.8 10*3/uL 0.0-0.8 [facility] Monocytes/100 WBC Auto (Bld) Ordered By: Yani Cyr on 10-03-2022 Monocytes/100 WBC (Bld) 10.5 % . [facility] Neutrophils Auto (Bld) [#/Vo l]Ordered By: Yani Cyr on 10-03-2022 Neutrophils (Bld) [#/Vol] 5.5 10*3/uL 1.8-7.7 [facility] Neutrophils/100 WBC Auto (Bl d)Ordered By: Yani Cyr on 10-03-2022 Neutrophils/100 WBC (Bld) 73.0 % . [facility] No Panel InformationOrdered By: Yani Cyr on 10-03-2022 Pharmacy Creatinine Clearance (Chem 35.59 [facility] Nucleated erythrocytes [Pres ence] in Blood by Automated countOrdered By: Yani Cyr on 10-03-2022 Nucleated RBC Auto Ql (Bld) 0.1 /100{WBC} 0-0.5 [facility] Platelet mean volume Auto (B ld) [Entitic vol]Ordered By: Yani Cyr on 10-03-2022 Platelet mean volume (Bld) [Entitic vol] 7.5 fL 6.3-10.7 [facility] Platelets Auto (Bld) [#/Vol] Ordered By: Yani Cyr on 10-03-2022 Platelets (Bld) [#/Vol] 322 10*3/uL 150-450 [facility] Potassium [Moles/volume] in Serum or PlasmaOrdered By: Yani Cyr on 10-03-2022 Potassium [Moles/Vol] 3.7 mmol/L 3.5-5.1 [facility] RBC Auto (Bld) [#/Vol]Ordere d By: Yani Cyr on 10-03-2022 RBC (Bld) [#/Vol] 2.77 10*6/uL 3.60-5.00 [facility] Serum or plasma anion gap de terminationOrdered By: Yani Cyr on 10-03-2022 Anion gap [Moles/Vol] 8.2 mmol/L 6.0-15.0 [facility] Sodium [Moles/volume] in Ser um or PlasmaOrdered By: Yani Cyr on 10-03-2022 Sodium [Moles/Vol] 137 mmol/L 136-145 [facility] Urea nitrogen [Mass/volume] in Serum or PlasmaOrdered By: Yani Cyr on 10-03-2022 Urea nitrogen [Mass/Vol] 10 mg/dL 7-25 [facility] WBC Auto (Bld) [#/Vol]Ordere d By: Yani Cyr on 10-03-2022 WBC (Bld) [#/Vol] 7.6 10*3/uL 3.8-11.6 [facility] XR hip LT min 2V(w/wo pelvis )*on 10-03-2022 XR hip LT min 2V(w/wo pelvis)* [facility] [place] [address] [place] [id number] XRay Report Signed Patient: Annamaria Garcia MR#: [id number] : 1935 Acct:[id number] Age/Sex: 87 / F ADM Date: 09/28/22 Loc: Room: [address] [place] [address] Type: ADM IN Attending Dr: Yani Cyr MD Copies to: MD Leighton Gibson MD Ordering Provider: Leighton Valente MD Date of Service: 10/03/22 XR/XR hip LT min 2V(w/wo pelvis)*: fx LEFT HIP - 2 views: CLINICAL HISTORY: Status post left hip TFN COMPARISON: Intraoperative study 09/28/2022 FINDINGS: Soft tissues demonstrate post surgical changes. Left hip hardware in place without radiographic complication. Presumed remote left-sided pubic rami fractures. XR/XR hip LT min 2V(w/wo pelvis)* IMPRESSION: No evidence of hardware complication. Impression dictated by: Josse Forrester Jr., D.O.10/03/2022 10:04 AM Dictation Location: [place] [address] Transcribed By: [facility] 10/03/22 1004 Dictated By: Josse Forrester Jr, DO 10/03/22 1003 Signed By: 10/03/22 1004 Normal [facility] Hemoglobin and Hematocriton 10-02-2022 Hematocrit (Bld) [Volume fraction] 21.3 % Low 34.0-46.4 [facility] Comment on above: Result Comment: PERF ORMED BY: [place] [address] PATHOLOGIST [employer] CLARICE OSWALD M.D. Performed By: #### F ER, FE and TIBC #### [place] [address] [place] Hemoglobin (Bld) [Mass/Vol] 7.3 g/dL Low 11.8-15.4 [facility] Comment on above: Performed By: #### F ER, FE and TIBC #### [address] Complete Blood Count Auto Di ffon 10-01-2022 Basophils (Bld) [#/Vol] 0.0 10*3/uL Normal 0.0-0.2 [facility] Comment on above: Result Comment: PERF ORMED BY: [place] [address] PATHOLOGIST [employer] CLARICE OSWALD M.D. Performed By: #### C BC #### [address] Basophils/100 WBC (Bld) 0.3 % Normal . [facility] Comment on above: Performed By: #### C BC #### [address] Eosinophils (Bld) [#/Vol] 0.1 10*3/uL Normal 0.0-0.45 [facility] Comment on above: Performed By: #### C BC #### [address] Eosinophils/100 WBC (Bld) 1.0 % Normal . [facility] Comment on above: Performed By: #### C BC #### [address] Erythrocyte distribution width (RBC) [Ratio] 13.8 % Normal 11.9-15.3 [facility] Comment on above: Performed By: #### C BC #### [address] Hematocrit (Bld) [Volume fraction] 21.8 % Low 34.0-46.4 [facility] Comment on above: Performed By: #### C BC #### [address] Hemoglobin (Bld) [Mass/Vol] 7.4 g/dL Low 11.8-15.4 [facility] Comment on above: Performed By: #### C BC #### [facility] [address] Lymphocytes (Bld) [#/Vol] 0.9 10*3/uL Low 1.00-4.8 [facility] Comment on above: Performed By: #### C BC #### [facility] [address] Lymphocytes/100 WBC (Bld) 12.7 % Normal . [facility] Comment on above: Performed By: #### C BC #### [facility] [address] MCH (RBC) [Entitic mass] 31.0 pg Normal 24.7-34.3 [facility] Comment on above: Performed By: #### C BC #### [address] MCV (RBC) [Entitic vol] 91.8 fL Normal 80-100 [facility] Comment on above: Performed By: #### C BC #### [address] Mean Corpuscular HGB Conc 33.8 g/dL Normal 32.0-35.0 [facility] Comment on above: Performed By: #### C BC #### [address] Monocytes (Bld) [#/Vol] 1.0 10*3/uL High 0.0-0.8 [facility] Comment on above: Performed By: #### C BC #### [place] [address] [place] Monocytes/100 WBC (Bld) 13.6 % Normal . [facility] Comment on above: Performed By: #### C BC #### [address] Neutrophils (Bld) [#/Vol] 5.3 10*3/uL Normal 1.8-7.7 [facility] Comment on above: Performed By: #### C BC #### [facility] [address] Neutrophils/100 WBC (Bld) 72.4 % Normal . [facility] Comment on above: Performed By: #### C BC #### [facility] [address] NRBC% 0.0 /100{WBC} Normal 0-0.5 [facility] Comment on above: Performed By: #### C BC #### [facility] [address] Platelet mean volume (Bld) [Entitic vol] 8.0 fL Normal 6.3-10.7 [facility] Comment on above: Performed By: #### C BC #### [address] Platelets (Bld) [#/Vol] 208 10*3/uL Normal 150-450 [facility] Comment on above: Performed By: #### C BC #### [address] RBC (Bld) [#/Vol] 2.37 10*6/uL Low 3.60-5.00 [facility] Comment on above: Performed By: #### C BC #### [address] WBC (Bld) [#/Vol] 7.3 10*3/uL Normal 3.8-11.6 [facility] Comment on above: Performed By: #### C BC #### [address] Basic Metabolic Panelon 09-21 Anion gap [Moles/Vol] 8.7 mmol/L Normal 6.0-15.0 [facility] Comment on above: Performed By: #### B MP, CBC #### [address] Calcium [Mass/Vol] 8.3 mg/dL Low 8.6-10.3 [facility] Comment on above: Performed By: #### B MP, CBC #### [facility] [address] [place] [address] [place] Chloride [Moles/Vol] 111 mmol/L High 98-107 [facility] Comment on above: Performed By: #### B MP, CBC #### [facility] [address] CO2 [Moles/Vol] 26.5 mmol/L Normal 21.0-31.0 [facility] Comment on above: Performed By: #### B MP, CBC #### [facility] [address] Creatinine [Mass/Vol] 0.37 mg/dL Low 0.60-1.20 [facility] Comment on above: Performed By: #### B MP, CBC #### [address] Creatinine Clr Calc Pharmacy 35.59 Normal [facility] Comment on above: Result Comment: PERF ORMED BY: [place] [address] PATHOLOGIST [employer] CLARICE OSWALD M.D. Performed By: #### B MP, CBC #### [place] [address] [place] GFR/1.73 sq M.predicted MDRD (S/P/Bld) [Vol rate/Area] mL/min/{1.73_m2} [facility] Comment on above: Performed By: #### B MP, CBC #### [address] Glucose [Mass/Vol] 102 mg/dL Normal 74-109 [facility] Comment on above: Result Comment: [place] Glucose Reference Range is dependent on time and content of last meal. Glucose of more than 200 mg/dL in a nonstressed, ambulatory subject supports the diagnosis of Diabetes Mellitus. ADA recommended reference range Performed By: #### B MP, CBC #### [facility] [address] [place] [address] [place] Potassium [Moles/Vol] 4.2 mmol/L Normal 3.5-5.1 [facility] Comment on above: Performed By: #### B MP, CBC #### [address] Sodium [Moles/Vol] 142 mmol/L Normal 136-145 [facility] Comment on above: Performed By: #### B MP, CBC #### [facility] [address] Urea nitrogen [Mass/Vol] 16 mg/dL Normal 7-25 [facility] Comment on above: Performed By: #### B MP, CBC #### [address] Complete Blood Count Auto Di ffon 09-30-2022 Basophils (Bld) [#/Vol] 0.0 10*3/uL Normal 0.0-0.2 [facility] Comment on above: Result Comment: PERF ORMED BY: [place] [address] PATHOLOGIST [employer] CLARICE OSWALD M.D. Performed By: #### B MP, CBC #### [address] Basophils/100 WBC (Bld) 0.3 % Normal . [facility] Comment on above: Performed By: #### B MP, CBC #### [address] Eosinophils (Bld) [#/Vol] 0.0 10*3/uL Normal 0.0-0.45 [facility] Comment on above: Performed By: #### B MP, CBC #### [address] Eosinophils/100 WBC (Bld) 0.3 % Normal . [facility] Comment on above: Performed By: #### B MP, CBC #### [address] Erythrocyte distribution width (RBC) [Ratio] 14.1 % Normal 11.9-15.3 [facility] Comment on above: Performed By: #### B MP, CBC #### [facility] [address] Hematocrit (Bld) [Volume fraction] 22.3 % Low 34.0-46.4 [facility] Comment on above: Performed By: #### B MP, CBC #### [facility] [address] Hemoglobin (Bld) [Mass/Vol] 7.8 g/dL Low 11.8-15.4 [facility] Comment on above: Performed By: #### B MP, CBC #### [facility] [address] Lymphocytes (Bld) [#/Vol] 1.0 10*3/uL Normal 1.00-4.8 [facility] Comment on above: Performed By: #### B MP, CBC #### [address] Lymphocytes/100 WBC (Bld) 12.9 % Normal . [facility] Comment on above: Performed By: #### B MP, CBC #### [address] MCH (RBC) [Entitic mass] 31.9 pg Normal 24.7-34.3 [facility] Comment on above: Performed By: #### B MP, CBC #### [address] MCV (RBC) [Entitic vol] 91.3 fL Normal 80-100 [facility] Comment on above: Performed By: #### B MP, CBC #### [address] Mean Corpuscular HGB Conc 34.9 g/dL Normal 32.0-35.0 [facility] Comment on above: Performed By: #### B MP, CBC #### [address] Monocytes (Bld) [#/Vol] 1.1 10*3/uL High 0.0-0.8 [facility] Comment on above: Performed By: #### B MP, CBC #### [facility] [address] Monocytes/100 WBC (Bld) 13.3 % Normal . [facility] Comment on above: Performed By: #### B MP, CBC #### [facility] [address] Neutrophils (Bld) [#/Vol] 5.9 10*3/uL Normal 1.8-7.7 [facility] Comment on above: Performed By: #### B MP, CBC #### [facility] [address] Neutrophils/100 WBC (Bld) 73.2 % Normal . [facility] Comment on above: Performed By: #### B MP, CBC #### [facility] [address] NRBC% 0.0 /100{WBC} Normal 0-0.5 [facility] Comment on above: Performed By: #### B MP, CBC #### [facility] [address] Platelet mean volume (Bld) [Entitic vol] 8.2 fL Normal 6.3-10.7 [facility] Comment on above: Performed By: #### B MP, CBC #### [facility] [address] [place] [address] [place] Platelets (Bld) [#/Vol] 182 10*3/uL Normal 150-450 [facility] Comment on above: Performed By: #### B MP, CBC #### [facility] [address] RBC (Bld) [#/Vol] 2.44 10*6/uL Low 3.60-5.00 [facility] Comment on above: Performed By: #### B MP, CBC #### [facility] [address] WBC (Bld) [#/Vol] 8.0 10*3/uL Normal 3.8-11.6 [facility] Comment on above: Performed By: #### B MP, CBC #### [facility] [address] [place] [id number] [facility] Ferritinon 09-30-2022 Ferritin [Mass/Vol] 53.4 ng/mL Normal 11.0-306.8 [facility] Comment on above: Order Comment: Comme nt add on Result Comment: PERF ORMED BY: [place] [address] PATHOLOGIST [employer] CLARICE OSWALD M.D. Performed By: #### F ER, FE and TIBC #### [address] Ferritin [Mass/volume] in Se rum or PlasmaOrdered By: Mimi Artis on 09-30-2022 Ferritin [Mass/Vol] 53.4 ng/mL 11.0-306.8 [facility] Hemoglobin and Hematocriton 09-30-2022 Hematocrit (Bld) [Volume fraction] 25.5 % Low 34.0-46.4 [facility] Comment on above: Result Comment: PERF ORMED BY: [place] [address] PATHOLOGIST [employer] CLARICE OSWALD M.D. Performed By: #### F ER, FE and TIBC #### [address] Hemoglobin (Bld) [Mass/Vol] 8.6 g/dL Low 11.8-15.4 [facility] Comment on above: Performed By: #### F ER, FE and TIBC #### [address] Iron [Mass/volume] in Serum or PlasmaOrdered By: Mimi Artis on 09-30-2022 Iron [Mass/Vol] 20 ug/dL 50-212 [facility] Iron and TIBC Profileon 09-21 0 % Iron Saturation 7.0 % Low 20-50 [facility] Comment on above: Order Comment: Comme nt add on Performed By: #### F ER, FE and TIBC #### [facility] [address] [place] [address] Iron [Mass/Vol] 20 ug/dL Low 50-212 [facility] Comment on above: Order Comment: Comme nt add on Performed By: #### F ER, FE and TIBC #### [facility] [address] Total Iron Binding Capacity 286 ug/dL Normal 255-450 [facility] Comment on above: Order Comment: Comme nt add on Performed By: #### F ER, FE and TIBC #### [facility] [address] Transferrin [Mass/Vol] 204 mg/dL Normal 203-362 [facility] Comment on above: Order Comment: Comme nt add on Performed By: #### F ER, FE and TIBC #### [facility] [address] Iron binding capacity [Mass/ volume] in Serum or PlasmaOrdered By: Mimi Artis on 09-30-2022 Iron binding capacity [Mass/Vol] 286 ug/dL 255-450 [facility] Iron saturation [Mass Fracti on] in Serum or PlasmaOrdered By: Mimi Artis on 09-30-2022 Iron saturation [Mass fraction] 7.0 % 20-50 [facility] Transferrin [Mass/volume] in Serum or PlasmaOrdered By: Mimi Artis on 09-30-2022 Transferrin [Mass/Vol] 204 mg/dL 203-362 [facility] Basic Metabolic Panelon 030 Anion gap [Moles/Vol] 12.9 mmol/L Normal 6.0-15.0 [facility] Comment on above: Performed By: #### B MP, SCAN CBC #### [facility] [address] [place] [address] [place] Calcium [Mass/Vol] 8.9 mg/dL Normal 8.6-10.3 [facility] Comment on above: Performed By: #### B MP, SCAN CBC #### [facility] [address] [place] [address] [place] Chloride [Moles/Vol] 108 mmol/L High 98-107 [facility] Comment on above: Performed By: #### B MP, SCAN CBC #### [facility] [address] [place] [address] [place] CO2 [Moles/Vol] 21.4 mmol/L Normal 21.0-31.0 [facility] Comment on above: Performed By: #### B MP, SCAN CBC #### [facility] [address] [place] [address] [place] Creatinine [Mass/Vol] 0.56 mg/dL Low 0.60-1.20 [facility] Comment on above: Performed By: #### B MP, SCAN CBC #### [facility] [address] [place] [address] [place] Creatinine Clr Calc Pharmacy 35.59 Normal [facility] Comment on above: Result Comment: PERF ORMED BY: [place] [address] PATHOLOGIST [employer] CLARICE OSWALD M.D. Performed By: #### B MP, SCAN CBC #### [facility] [address] [place] [address] [place] GFR/1.73 sq M.predicted MDRD (S/P/Bld) [Vol rate/Area] mL/min/{1.73_m2} Normal [facility] Comment on above: Performed By: #### B MP, SCAN CBC #### [facility] [address] [place] [address] [place] Glucose [Mass/Vol] 118 mg/dL High 74-109 [facility] Comment on above: Result Comment: [place] Glucose Reference Range is dependent on time and content of last meal. Glucose of more than 200 mg/dL in a nonstressed, ambulatory subject supports the diagnosis of Diabetes Mellitus. ADA recommended reference range Performed By: #### B MP, SCAN CBC #### [facility] [address] [place] [address] [place] Potassium [Moles/Vol] 4.3 mmol/L Normal 3.5-5.1 [facility] Comment on above: Performed By: #### B MP, SCAN CBC #### [facility] [address] Sodium [Moles/Vol] 138 mmol/L Normal 136-145 [facility] Comment on above: Performed By: #### B MP, SCAN CBC #### [facility] [address] Urea nitrogen [Mass/Vol] 16 mg/dL Normal 7-25 [facility] Comment on above: Performed By: #### B MP, SCAN CBC #### [facility] [address] Platelet adequacy [Presence] in Blood by Light microscopyOrdered By: Mimi Arits on 09-29-2022 Platelets LM Ql (Bld) Normal Normal [facility] Platelet morphology finding [Identifier] in BloodOrdered By: Mimi Artis on 09-29-2022 Platelet morphology finding Nom (Bld) Normal Normal [facility] RBC morphologyOrdered By: Rosalba Artis on 09-29-2022 RBC morphology finding Nom (Bld) Normal Normal [facility] Scan and CBCon 09-29-2022 Basophils (Bld) [#/Vol] 0.0 10*3/uL Normal 0.0-0.2 [facility] Comment on above: Performed By: #### B MP, SCAN CBC #### [facility] [address] [place] [address] Basophils/100 WBC (Bld) 0.1 % Normal . [facility] Comment on above: Performed By: #### B MP, SCAN CBC #### [facility] [address] [place] [address] [place] Eosinophils (Bld) [#/Vol] 0.0 10*3/uL Normal 0.0-0.45 [facility] Comment on above: Performed By: #### B MP, SCAN CBC #### [facility] [address] Eosinophils/100 WBC (Bld) 0.0 % Normal . [facility] Comment on above: Performed By: #### B MP, SCAN CBC #### [facility] [address] Erythrocyte distribution width (RBC) [Ratio] 14.2 % Normal 11.9-15.3 [facility] Comment on above: Performed By: #### B MP, SCAN CBC #### [address] Hematocrit (Bld) [Volume fraction] 27.0 % Low 34.0-46.4 [facility] Comment on above: Performed By: #### B MP, SCAN CBC #### [facility] [address] [place] [address] Hemoglobin (Bld) [Mass/Vol] 9.1 g/dL Low 11.8-15.4 [facility] Comment on above: Performed By: #### B MP, SCAN CBC #### [address] Lymphocytes (Bld) [#/Vol] 0.9 10*3/uL Low 1.00-4.8 [facility] Comment on above: Performed By: #### B MP, SCAN CBC #### [address] Lymphocytes/100 WBC (Bld) 7.1 % Normal . [facility] Comment on above: Performed By: #### B MP, SCAN CBC #### [address] MCH (RBC) [Entitic mass] 30.9 pg Normal 24.7-34.3 [facility] Comment on above: Performed By: #### B MP, SCAN CBC #### [address] MCV (RBC) [Entitic vol] 91.6 fL Normal 80-100 [facility] Comment on above: Performed By: #### B MP, SCAN CBC #### [facility] [address] [place] [address] Mean Corpuscular HGB Conc 33.7 g/dL Normal 32.0-35.0 [facility] Comment on above: Performed By: #### B MP, SCAN CBC #### [address] Monocytes (Bld) [#/Vol] 1.7 10*3/uL High 0.0-0.8 [facility] Comment on above: Performed By: #### B MP, SCAN CBC #### [facility] [address] Monocytes/100 WBC (Bld) 13.5 % Normal . [facility] Comment on above: Performed By: #### B MP, SCAN CBC #### [facility] [address] Neutrophils (Bld) [#/Vol] 10.2 10*3/uL High 1.8-7.7 [facility] Comment on above: Performed By: #### B MP, SCAN CBC #### [facility] [address] [place] [address] Neutrophils/100 WBC (Bld) 79.3 % Normal . [facility] Comment on above: Performed By: #### B MP, SCAN CBC #### [facility] [address] [place] [address] NRBC% 0.0 /100{WBC} Normal 0-0.5 [facility] Comment on above: Performed By: #### B MP, SCAN CBC #### [facility] [address] [place] [address] Platelet Estimate Normal Normal Normal [facility] Comment on above: Performed By: #### B MP, SCAN CBC #### [facility] [address] [place] [address] Platelet mean volume (Bld) [Entitic vol] 8.0 fL Normal 6.3-10.7 [facility] Comment on above: Performed By: #### B MP, SCAN CBC #### [facility] [address] [place] [address] Platelet Morphology Normal Normal Normal [facility] Comment on above: Result Comment: PERF ORMED BY: [place] [address] PATHOLOGIST [employer] CLARICE OSWALD M.D. Performed By: #### B MP, SCAN CBC #### [place] [id number] [place] Platelets (Bld) [#/Vol] 220 10*3/uL Normal 150-450 [facility] Comment on above: Performed By: #### B MP, SCAN CBC #### [facility] [address] RBC (Bld) [#/Vol] 2.95 10*6/uL Low 3.60-5.00 [facility] Comment on above: Performed By: #### B MP, SCAN CBC #### [facility] [address] RBC morphology finding Nom (Bld) Normal Normal Normal [facility] Comment on above: Performed By: #### B MP, SCAN CBC #### [facility] [address] WBC (Bld) [#/Vol] 12.9 10*3/uL High 3.8-11.6 [facility] Comment on above: Performed By: #### B MP, SCAN CBC #### [place] [address] [place] XR hip LT min 2V(w/wo pelvis )*on 09-29-2022 XR hip LT min 2V(w/wo pelvis)* [facility] [place] [address] [place] [address] XRay Report Signed Patient: Annamaria Garcia MR#: [id number] : 1935 Acct:[id number] Age/Sex: 87 / F ADM Date: 09/28/22 Loc: Room: 6X4148-2 Type: ADM IN Attending Dr: Adama Kothari MD Copies to: MD Leighton Paul MD Ordering Provider: Leighton Valente MD Date of Service: 09/28/22 XR/XR hip LT min 2V(w/wo pelvis)*: LT HIP TFN PORTABLE LEFT HIP -9 images: CLINICAL HISTORY: Intraoperative localization for fixation of intratrochanteric hip fracture COMPARISON: 09/28/2022 AP and lateral spot films pre as well as multiple images during placement of a dynamic hip screw with short intramedullary sona were obtained. An intratrochanteric hip fracture is again seen. There is improvement of the varus positioning of fracture fragments following fixation. DAP: 2.27 Gy cm2 Impression dictated by: Angie Francisco M.D.09/29/2022 11:29 AM Dictation Location: [place] [address] Transcribed By: [facility] 09/29/22 112 Dictated By: Angie Francisco MD 09/29/22 112 Signed By: 09/29/22 1129 Normal [facility] ABO AND RH TYPEon 09-28-2022 ABO and Rh group Nom (Bld) ABO Rh Typing A Rh Positive Normal [facility] Comment on above: Performed By: #### C MP, CMADM #### [facility] [address] [place] [address] Dr. Nidhi Dawn Albumin Levelon 09-28-2022 Albumin [Mass/Vol] 4.0 g/dL Normal 3.5-5.7 [facility] Comment on above: Result Comment: PERF ORMED BY: [place] [address] PATHOLOGIST [employer] CLARICE OSWALD M.D. Performed By: #### F ER, FE and TIBC #### [facility] [address] [place] [address] Albumin [Mass/volume] in Ser um or Plasma by Bromocresol green (BCG) dye binding methoOrdered By: Bulmaro Moses on 09-28-2022 Albumin BCG dye [Mass/Vol] 4.0 g/dL 3.5-5.7 [facility] Basic Metabolic Panelon Anion gap [Moles/Vol] 10.8 mmol/L Normal 6.0-15.0 [facility] Comment on above: Performed By: #### F ER, FE and TIBC #### [facility] [address] [place] [address] [place] Calcium [Mass/Vol] 9.0 mg/dL Normal 8.6-10.3 [facility] Comment on above: Performed By: #### F ER, FE and TIBC #### [facility] [address] [place] [address] [place] Chloride [Moles/Vol] 103 mmol/L Normal 98-107 [facility] Comment on above: Performed By: #### F ER, FE and TIBC #### [facility] [address] CO2 [Moles/Vol] 28.5 mmol/L Normal 21.0-31.0 [facility] Comment on above: Performed By: #### F ER, FE and TIBC #### [facility] [address] [place] [address] [place] Creatinine [Mass/Vol] 0.40 mg/dL Low 0.60-1.20 [facility] Comment on above: Performed By: #### F ER, FE and TIBC #### [facility] [address] [place] [address] [place] Creatinine Clr Calc Pharmacy 31.68 [facility] Comment on above: Result Comment: PERF ORMED BY: [facility] [address] [place] [address] PATHOLOGIST [employer] CLARICE OSWALD M.D. Performed By: #### F ER, FE and TIBC #### [facility] [address] GFR/1.73 sq M.predicted MDRD (S/P/Bld) [Vol rate/Area] mL/min/{1.73_m2} [facility] Comment on above: Performed By: #### F ER, FE and TIBC #### [facility] [address] [place] [address] [place] Glucose [Mass/Vol] 143 mg/dL High 74-109 [facility] Comment on above: Result Comment: [place] Glucose Reference Range is dependent on time and content of last meal. Glucose of more than 200 mg/dL in a nonstressed, ambulatory subject supports the diagnosis of Diabetes Mellitus. ADA recommended reference range Performed By: #### F ER, FE and TIBC #### [facility] [address] [place] [address] [place] Potassium [Moles/Vol] 3.3 mmol/L Low 3.5-5.1 [facility] Comment on above: Performed By: #### F ER, FE and TIBC #### [facility] [address] [place] [id number] [facility] Sodium [Moles/Vol] 139 mmol/L Normal 136-145 [facility] Comment on above: Performed By: #### F ER, FE and TIBC #### [facility] [address] [place] [id number] [facility] Urea nitrogen [Mass/Vol] 8 mg/dL Normal 7-25 [facility] Comment on above: Performed By: #### F ER, FE and TIBC #### [facility] [address] [place] [id number] [facility] CT ABD/PELVIS WO CONon 09-28 CT ABD/PELVIS WO CON EXAM: CT ABD/PELVIS WO CON TECHNIQUE: Axial CT images were obtained of the abdomen and pelvis without intravenous contrast. Sagittal and coronal reformatted images were also obtained. Dose reduction techniques were achieved by using automated exposure control and/or adjustment of mA and/or kV according to patient size and/or use of iterative reconstruction technique. HISTORY: Unspecified fall COMPARISON: 05/02/2022 FINDINGS: Lower chest: The lower lungs are clear. Liver: The liver is homogeneous with normal contours and normal size. Gallbladder: Status post cholecystectomy. No significant biliary dilatation. Pancreas: The pancreas is homogeneous without evidence for mass lesion or inflammation. Spleen: The spleen is unremarkable without evidence for mass lesion. Adrenal glands: The adrenal glands are unremarkable Kidneys and bladder: The kidneys are unremarkable with no evidence for mass lesion, hydronephrosis or inflammation. The ureters demonstrate normal caliber. The urinary bladder is unremarkable. GI Tract: Stomach is unremarkable. Visualized small bowel is unremarkable without evidence for obstruction or active inflammation. Severe diverticulosis throughout the remaining portion of the colon. Prior partial colectomy. Reproductive: Unremarkable Lymph nodes: No retroperitoneal or abdominal lymphadenopathy. Vascular: The aorta is not dilated. Peritoneum: Small amount of free fluid in the pelvis. Abdominal wall: Comminuted fracture of the proximal intertrochanteric left femur appears acute. Additional old pelvic fractures. IMPRESSION: Intertrochanteric fracture of the proximal left femur with varus angulation at the fracture site. Several old healed pelvic fractures. No additional acute abdominal findings. Electronically authenticated by: RAVEN RENNER Date: 2022-09-27 22:38 Normal [facility] CT CSPINE WO CONon 3 CT CSPINE WO CON EXAMINATION: CT CSPI NE WO CON HISTORY: Unspecified fall COMPARISON: Cervical spine CT 03/31/2022 TECHNIQUE: CT Cervical spine without IV contrast. Coronal and sagittal reformations were performed. Dose reduction techniques were achieved by using automated exposure control and/or adjustment of mA and/or kV according to patient size and/or use of iterative reconstruction technique. FINDINGS: There is a stable increase of the normal cervical lordosis. Vertebral body heights and alignments exhibit no fracture or listhesis. The dens and lateral masses of C1 are symmetric. Age-related facet and endplate changes. No prevertebral soft tissue edema. IMPRESSION: No visualized acute irregularity Electronically authenticated by: SOPHIE SINGLETON Date: 2022-09-27 22:42 Normal [facility] CT HEAD WO CONon 09-28-2022 CT HEAD WO CON EXAMINATION: CT HEAD WO CON TECHNIQUE: Axial CT images were obtained through the brain. Sagittal and coronal reformatted images were also obtained. HISTORY: Unspecified fall COMPARISON: 03/31/2022 FINDINGS: Intracranial Bleed: No evidence for acute intracranial bleed. Intracranial Mass: No evidence for mass lesion. No mass effect or midline shift. Extra-axial spaces: There is mild cerebral atrophy and proportional ventricular enlargement. White/Vasquez Matter: No acute cortical infarct. Moderate bilateral white matter chronic small vessel ischemic change. Skull/Scalp: No evidence for skull fracture or lesion. Orbits and sinuses: The orbits appear unremarkable. The visualized paranasal sinuses are clear. Opacification of the right mastoid air cells which may suggest mastoid effusion and/or mastoiditis. IMPRESSION: No acute intracranial pathology. Electronically authenticated by: RAVEN RENNER Date: 2022-09-27 22:43 Normal [facility] CT LSPINE WO CONon 3 CT LSLIEBENTHAL WO CON EXAM: CT LSPINE WO C ON HISTORY: The patient is an 86-year-old female. Unspecified fall COMPARISON: CT scan of the chest from 03/31/[address] scan of the pelvis from 05/02/2022. TECHNIQUE: CT images were obtained through the lumbar spine without intravenous contrast and reformatted in 2 dimensions. Dose reduction techniques were achieved by using automated exposure control and/or adjustment of mA and/or kV according to patient size and/or use of iterative reconstruction technique. FINDINGS: The coronal and sagittal reformatted images demonstrate an old wedge compression fracture of the T11 vertebral body, and this was present on the prior CT scan from 03/31/2022. There are also old partially healed fracture deformities of the sacrum, and these were present on the prior CT scan of 05/02/2022. The axial images demonstrate no new fractures or cortical discontinuities throughout the lumbar spine. The alignment of the sacroiliac joints is relatively maintained. The coronal and sagittal reformatted images demonstrate no new fractures or loss of vertebral body height throughout the lumbar spine. There is no spondylolisthesis throughout the lumbar spine. There is moderate narrowing of the L4-L5 and L5-S1 discs, unchanged since 03/31/2022. The soft tissue images demonstrate no evidence of disc herniations or central canal stenosis throughout the lumbar spine. There are no new findings. IMPRESSION: No new fractures or loss of vertebral body height throughout the lumbar spine. Electronically authenticated by: KANU BURK Date: 2022-09-27 22:42 Normal [facility] Complete Blood Count Auto Di ffon 09-28-2022 Basophils (Bld) [#/Vol] 0.0 10*3/uL Normal 0.0-0.2 [facility] Comment on above: Result Comment: PERF ORMED BY: [place] [address] PATHOLOGIST [employer] CLARICE OSWALD M.D. Performed By: #### F ER, FE and TIBC #### [address] Basophils/100 WBC (Bld) 0.0 % Normal . [facility] Comment on above: Performed By: #### F ER, FE and TIBC #### [address] Eosinophils (Bld) [#/Vol] 0.0 10*3/uL Normal 0.0-0.45 [facility] Comment on above: Performed By: #### F ER, FE and TIBC #### [address] Eosinophils/100 WBC (Bld) 0.0 % Normal . [facility] Comment on above: Performed By: #### F ER, FE and TIBC #### [address] Erythrocyte distribution width (RBC) [Ratio] 13.9 % Normal 11.9-15.3 [facility] Comment on above: Performed By: #### F ER, FE and TIBC #### [address] Hematocrit (Bld) [Volume fraction] 33.9 % Low 34.0-46.4 [facility] Comment on above: Performed By: #### F ER, FE and TIBC #### [address] Hemoglobin (Bld) [Mass/Vol] 11.5 g/dL Low 11.8-15.4 [facility] Comment on above: Performed By: #### F ER, FE and TIBC #### [address] Lymphocytes (Bld) [#/Vol] 0.6 10*3/uL Low 1.00-4.8 [facility] Comment on above: Performed By: #### F ER, FE and TIBC #### [address] Lymphocytes/100 WBC (Bld) 4.7 % Normal . [facility] Comment on above: Performed By: #### F ER, FE and TIBC #### [address] MCH (RBC) [Entitic mass] 30.8 pg Normal 24.7-34.3 [facility] Comment on above: Performed By: #### F ER, FE and TIBC #### [address] MCV (RBC) [Entitic vol] 90.8 fL Normal 80-100 [facility] Comment on above: Performed By: #### F ER, FE and TIBC #### [address] Mean Corpuscular HGB Conc 34.0 g/dL Normal 32.0-35.0 [facility] Comment on above: Performed By: #### F ER, FE and TIBC #### [address] Monocytes (Bld) [#/Vol] 0.9 10*3/uL High 0.0-0.8 [facility] Comment on above: Performed By: #### F ER, FE and TIBC #### [address] Monocytes/100 WBC (Bld) 7.4 % Normal . [facility] Comment on above: Performed By: #### F ER, FE and TIBC #### [address] Neutrophils (Bld) [#/Vol] 10.7 10*3/uL High 1.8-7.7 [facility] Comment on above: Performed By: #### F ER, FE and TIBC #### [address] Neutrophils/100 WBC (Bld) 87.9 % Normal . [facility] Comment on above: Performed By: #### F ER, FE and TIBC #### [address] NRBC% 0.1 /100{WBC} Normal 0-0.5 [facility] Comment on above: Performed By: #### F ER, FE and TIBC #### [address] Platelet mean volume (Bld) [Entitic vol] 8.0 fL Normal 6.3-10.7 [facility] Comment on above: Performed By: #### F ER, FE and TIBC #### [facility] [address] Platelets (Bld) [#/Vol] 253 10*3/uL Normal 150-450 [facility] Comment on above: Performed By: #### F ER, FE and TIBC #### [facility] [address] RBC (Bld) [#/Vol] 3.73 10*6/uL Normal 3.60-5.00 [facility] Comment on above: Performed By: #### F ER, FE and TIBC #### [facility] [address] WBC (Bld) [#/Vol] 12.2 10*3/uL High 3.8-11.6 [facility] Comment on above: Performed By: #### F ER, FE and TIBC #### [facility] [address] ECG 12 lead ECGon 09-28-2022 ECG 12 lead ECG [facility] [place] [address] Electrocardiograph Report Signed Patient: Annamaria Garcia MR#: [id number] : 1935 Acct:[id number] Age/Sex: 87 / F ADM Date: 09/28/22 Loc: Room: [address] [place] [address] Type: ADM IN Attending Dr: Adama Kothari MD Ordering Provider: Juliet Green MD Date of Service: 09/28/2203/15/500 ECG/ECG 12 lead ECG: preop Copies to: Test Reason : Blood Pressure : / mmHG Vent. Rate : 070 BPM Atrial Rate : 070 BPM P-R Int : 140 ms QRS Dur : 086 ms QT Int : 396 ms P-R-T Axes : 069 013 054 degrees QTc Int : 427 ms Normal sinus rhythm Normal ECG No previous ECGs available Confirmed by ESTEE TSONE MD ([id number]) on 09/28/2022 3:08:35 PM Referred By: Electronically Signed By:ESTEE STONE MD Transcribed By: MUS Signed By Estee Stone MD 0 09/28/22 1508 Normal [facility] ER URINE PROFILEon 3 Bilirubin Ql (U) Negative Normal NEGATIVE [facility] Comment on above: Performed By: #### C MP, CMADM #### [facility] [address] [place] [address] Dr. Nidhi Dawn Clarity (U) CLEAR Normal CLEAR [facility] Comment on above: Performed By: #### C MP, CMADM #### [facility] [address] [place] [address] Dr. Nidhi Dawn Color (U) LT. YELLOW Normal YELLOW [facility] Comment on above: Performed By: #### C MP, CMADM #### [facility] [address] [place] [address] Dr. Nidhi TERRAZAS A micrscopic examina tion will be performed if indicated. Normal [facility] Comment on above: Performed By: #### C MP, CMADM #### [facility] [address] [place] [address] Dr. Nidhi Dawn Glucose Ql (U) Negative Normal NEGATIVE [facility] Comment on above: Performed By: #### C MP, CMADM #### [facility] [address] [place] [address] [address] Nidhi Dawn Hemoglobin Ql (U) Negative Normal NEGATIVE [facility] Comment on above: Performed By: #### C MP, CMADM #### [facility] [address] [place] [address] [address] Nidhi Dawn Ketones Ql (U) 40 mg/dl Abnormal NEGATIVE [facility] Comment on above: Performed By: #### C MP, CMADM #### [facility] [address] [place] [address] Dr. Nidhi Dawn LEUKOCYTES Negative Normal NEGATIVE [facility] Comment on above: Performed By: #### C MP, CMADM #### [facility] [address] [place] [address] [address] Nidhi Dawn Nitrite Ql (U) Negative Normal NEGATIVE [facility] Comment on above: Performed By: #### C DONA, CMADM #### [facility] [address] [place] [address] [address] Nidhi Dawn pH (U) 7.0 [pH] Normal 5-9 [facility] Comment on above: Performed By: #### C DONA, CMADM #### [facility] [address] [place] [address] [address] Nidhi Dawn SPEC GRAVITY 1.010 Normal 1.005-<=1.0 25 [facility] Comment on above: Performed By: #### C DONA, LEONCIODM #### [facility] [address] [place] [address] Dr. Nidhi Dawn UA PROTEIN TRACE Normal NEGATIVE/ TRACE [facility] Comment on above: Performed By: #### C DONA, LEONCIODM #### [facility] [address] [place] [address] Dr. Nidhi Dawn UR MICRO IND NOT INDICATED Normal [facility] Comment on above: Performed By: #### C DONA, LEONCIODM #### [facility] [address] [place] [address] Dr. Nidhi Dawn Urobilinogen Qn (U) 0.2 {[place]'U}/dL Normal 0.2 - 1. 0 [facility] Comment on above: Performed By: #### C DONA, LEONCIODM #### [facility] [address] [place] [address] Dr. Nidhi Dawn Glucose Glucometer (dC) [M ass/Vol]Ordered By: Juliet Green on 09-28-2022 Glucose [Mass/Vol] 107 mg/dL [facility] Comment on above: Random Glucose Refer ence Range is dependent on time and content of last meal. Glucose of more than 200 mg/dL in a nonstressed, ambulatory subject supports the diagnosis of Diabetes Mellitus. Glucose Poct Glucometerson 0 09-28-2022 Glucose [Mass/Vol] 107 mg/dL Normal [facility] Comment on above: Result Comment: [place] Glucose Reference Range is dependent on time and content of last meal. Glucose of more than 200 mg/dL in a nonstressed, ambulatory subject supports the diagnosis of Diabetes Mellitus. PERFORMED BY: [place] [address] PATHOLOGIST [employer] CLARICE OSWALD M.D. Performed By: #### G LU #### Point of Care testing , Laboratory - CoagulationOrde red By: Juliet Green on 09-28-2022 PT Coag (PPP) [Time] 13.1 s 9.0-12.9 [facility] Magnesiumon 09-28-2022 Magnesium [Mass/Vol] 1.9 mg/dL Normal 1.9-2.7 [facility] Comment on above: Order Comment: Comme nt add Result Comment: PERF ORMED BY: [place] [address] PATHOLOGIST [employer]ER CLARICE OSWALD M.D. Performed By: #### M G #### [address] Magnesium [Mass/volume] in S enma or PlasmaOrdered By: Juliet Green on 09-28-2022 Magnesium [Mass/Vol] 1.9 mg/dL 1.9-2.7 [facility] Platelet poor plasma interna tional normalized ratio (INR) by coagulation assay (relatOrdered By: Juliet Green on 09-28-2022 INR Coag (PPP) [Relative time] 1.1 {INR} [facility] Comment on above: INR Therapeutic Rang e A) Pre- and Peroperative OAT started two weeks before surgery. NOT HIP SURGERY: 1.5 - 2.5 HIP SURGERY: 2 - 3B) Primary and secondary prevention of venous THROMBOSIS: 2 - 3C) Active venous thrombosis, pulmonary embolismand prevention of recurrent venous thrombosis: 2 - 3D) Prevention of arterial thromboembolismincluding patients with mechanical heart valves: 3 - 4.5 Prothrombin Time INRon 09-28 INR Coag (PPP) [Relative time] 1.1 {INR} Normal [facility] Comment on above: Result Comment: INR Therapeutic Range A) Pre- and Peroperative OAT started two weeks before surgery. NOT HIP SURGERY: 1.5 - 2.5 HIP SURGERY: 2 - 3 B) Primary and secondary prevention of venous THROMBOSIS: 2 - 3 C) Active venous thrombosis, pulmonary embolism and prevention of recurrent venous thrombosis: 2 - 3 D) Prevention of arterial thromboembolism including patients with mechanical heart valves: 3 - 4.5 PERFORMED BY: [place] [address] PATHOLOGIST [employer] CLARICE OSWALD M.D. Performed By: #### F ER, FE and TIBC #### [facility] [address] [place] [address] PT Coag (PPP) [Time] 13.1 s High 9.0-12.9 [facility] Comment on above: Performed By: #### F ER, FE and TIBC #### [facility] [address] [place], [place] [id number] [facility] Vitamin B12on 09-28-2022 Cobalamin (Vitamin B12) [Mass/Vol] 202 pg/mL Normal 180-914 [facility] Comment on above: Result Comment: PERF ORMED BY: [place] [address] PATHOLOGIST [employer] DES[employer]ER CLARICE OSWALD M.D. Performed By: #### B 12 #### [facility] [address] [place], [place] [id number] [facility] Vitamin B12 ser/plasOrdered By: Mimi Artis on 09-28-2022 Cobalamin (Vitamin B12) [Mass/Vol] 202 pg/mL 180-914 [facility] Vitamin D 25 Hydroxy,Tot+D2+ D3on 09-28-2022 Vitamin D 25 OH (LC) 33 ng/mL Normal . [facility] Comment on above: Result Comment: Refe rence Range: All Ages: Target levels 30 - 100 Performed By: #### F ER, FE and TIBC #### [facility] [address] [place] [address] Vitamin D-2 <1.0 Normal . [facility] Comment on above: Result Comment: This test was developed and its performance characteristics determined by [facility]. It has not been cleared or approved by the Food and Drug Administration. Performed By: #### F ER, FE and TIBC #### [address] Vitamin D-3 33 ng/mL Normal . [facility] Comment on above: Result Comment: This test was developed and its performance characteristics determined by [facility]. It has not been cleared or approved by the Food and Drug Administration. Performed at: [employer] [address] [place] [id number] Roof Slater: Avel Dempsey MD, Phone: [phone] PERFORMED BY: [place] [address] PATHOLOGIST [employer] DES[employer]ER CLRAICE OSWALD M.D. Performed By: #### F ER, FE and TIBC #### [address] XR femur LT 2V*on 09-28-2022 XR femur LT 2V* [facility] [place] [address] [place] [address] XRay Report Signed Patient: Annamaria Garcia MR#: [id number] : 1935 Acct:[id number] Age/Sex: 87 / F ADM Date: 09/28/22 Loc: Room: [address] [place] [address] Type: ADM IN Attending Dr: Juliet Green MD Copies to: MD Juliet Lennon MD Ordering Provider: Bulmaro Moses MD Date of Service: 09/28/22 XR/XR femur LT 2V*: left fem head fx ([id number]) XR/XR low pelvis w/LT x-table hip: left femural head fx CLINICAL DATA: Follow-up femur fracture LOW PELVIS WITH LEFT HIP - 3 views COMPARISON: CT abdomen 09/27/2022 AP view of the low pelvis and AP and crosstable lateral views of the left hip were obtained. There is osteopenia. There is an acute, mildly comminuted left intertrochanteric hip fracture with varus positioning. There are chronic-appearing bilateral pubic rami fractures which were also seen on the CT study. Suspected old sacral fractures noted at that time are not as well demonstrated on plain film due to overlying bowel gas and stool. No dislocation is seen at the hips. There are no focal soft tissue findings. A Bernstein catheter is present. XR/XR low pelvis w/LT x-table hip IMPRESSION: ACUTE LEFT INTERTROCHANTERIC HIP FRACTURE. CHRONIC APPEARING BILATERAL PUBIC RAMI FRACTURES. LEFT FEMUR - 2 views COMPARISON: None AP and lateral views were obtained. The hip is not included since there is a separate hip study. There is osteopenia. No acute fractures or dislocation are seen within the [id number]. There is mild degenerative change at the knee with medial tibiofemoral joint compartment narrowing and minor tricompartment marginal spurring. There are no focal soft tissue findings. IMPRESSION: NO ACUTE BONY INJURY WITHIN THE [id number]. Impression dictated by: Angie Francisco M.D.09/28/2022 7:21 AM Dictation Location: [place] [address] Transcribed By: [facility] 09/28/22720 Dictated By: Angie Francisco MD 09/28/22 0716 Signed By: 09/28/2221 [facility] CARDIAC CELESTINO ADMITon 023 CK [Catalytic activity/Vol] 96 U/L Normal 26-192 [facility] Comment on above: Performed By: #### C HELENA CARCAMO #### [facility] [address] [place] [address] [address] Nidhi Dawn CK.MB [Mass/Vol] 2.59 ng/mL Normal <=3.60 [facility] Comment on above: Performed By: #### C LEONCIO CARCAMODM #### [facility] [address] [place] [address] [address] Nidhi Dawn HSTROP 8.6 pg/mL Normal 4.0-51.3 [facility] Comment on above: Result Comment: CUT- OFF POINTS HAVE BEEN ESTABLISHED BASED ON THE FOURTH UNIVERSAL DEFINITIONS OF MYOCARDIAL INFARCTION. THE UPPER REFERENCE LIMIT (URL) OF TROPONIN, DEFINED THE 99TH PERCENTILE OF cTnI DISTRIBUTION IN A REFERENCE POPULATION, HAS BEEN CONFIRMED THE DECISION THRESHOLD FOR AL DIAGNOSIS. Performed By: #### C MP, CMADM #### [facility] [address] [place] [address] [address] Nidhi Dawn BOBBY 75 ng/mL Normal 9-82 [facility] Comment on above: Performed By: #### C MP, CMADM #### [facility] [address] [place] [address] [address] Nidhi Dawn CBC AUTO DIFFon 09-27-2022 BASO # 0.0 103/ul Normal 0.0-0.1 [facility] Comment on above: Performed By: #### C BC #### [facility] [address] [place] [address] [address] Nidhi Dawn Basophils/100 WBC (Bld) 0.2 % Normal 0.2-2.0 [facility] Comment on above: Performed By: #### C BC #### [facility] [address] [place] [address] Dr. Nidhi Dawn EO # 0.0 103/ul Normal 0.0-0.7 [facility] Comment on above: Performed By: #### C BC #### [facility] [address] [place] [address] [address] Nidhi Dawn Eosinophils/100 WBC (Bld) 0.1 % Critically low 0.9-7.0 [facility] Comment on above: Performed By: #### C BC #### [facility] [address] [place] [address] [address] Nidhi Dawn Erythrocyte distribution width (RBC) [Ratio] 13.2 % Normal 11.0-15.0 [facility] Comment on above: Performed By: #### C BC #### [facility] [address] [place] [address] Dr. Nidhi Dawn Hematocrit (Bld) [Volume fraction] 34.6 % Critically low 36.0-48.0 [facility] Comment on above: Performed By: #### C BC #### [facility] [address] [address] [address] Nidhi Dawn Hemoglobin (Bld) [Mass/Vol] 11.7 g/dL Critically low 12.0-16.0 [facility] Comment on above: Performed By: #### C BC #### [facility] [address] [place] [address] Dr. Nidhi Dawn IG # 0.06 10e3/ul Critically high 0.00-0.03 [facility] Comment on above: Performed By: #### C BC #### [facility] [address] [place] [address] Dr. Nidhi Dawn IG % 0.4 % Normal 0.0-0.5 [facility] Comment on above: Performed By: #### C BC #### [facility] [address] [place] [address] Dr. Nidhi Dawn LYMPH # 1.1 103/ul Critically low 1.2-3.8 [facility] Comment on above: Performed By: #### C BC #### [facility] [address] [place] [address] Dr. Nidhi Dawn Lymphocytes/100 WBC (Bld) 7.0 % Critically low 20.5-60.0 [facility] Comment on above: Performed By: #### C BC #### [facility] [address] [place] [address] Dr. Nidhi Dawn MANUAL DIFF REQ NO Normal [facility] Comment on above: Performed By: #### C BC #### [facility] [address] [place] [address] Dr. Nidhi Dawn MCH (RBC) [Entitic mass] 31.0 pg Normal 26.7-34.0 [facility] Comment on above: Performed By: #### C BC #### [facility] [address] [place] [address] Dr. Nidhi Dawn MCHC (RBC) [Mass/Vol] 33.8 g/dL Normal 29.9-35.2 [facility] Comment on above: Performed By: #### C BC #### [facility] [address] [place] [address] Dr. Nidhi Dawn MCV (RBC) [Entitic vol] 91.8 fL Normal 81.0-99.0 [facility] Comment on above: Performed By: #### C BC #### [facility] [address] [address] [address] Nidhi Dawn MONO # 1.1 103/ul Critically high 0.3-0.8 [facility] Comment on above: Performed By: #### C BC #### [facility] [address] [address] [address] Nidhi Dawn Monocytes/100 WBC (Bld) 7.0 % Normal 1.7-12.0 [facility] Comment on above: Performed By: #### C BC #### [facility] [address] [address] [address] Nidhi Dawn NEUT # 13.1 103/ul Critically high 1.4-6.5 [facility] Comment on above: Performed By: #### C BC #### [facility] [address] [place] [address] Dr. Nidhi Dawn Neutrophils/100 WBC (Bld) 85.3 % Critically high 43.0-75.0 [facility] Comment on above: Performed By: #### C BC #### [facility] [address] [place] [address] Dr. Nidhi Dawn Platelet mean volume (Bld) [Entitic vol] 9.1 fL Critically low 9.5-13.5 [facility] Comment on above: Performed By: #### C BC #### [facility] [address] [place] [address] Dr. Nidhi Dawn PLT 274 103/ul Normal 150-450 [facility] Comment on above: Performed By: #### C BC #### [facility] [address] [place] [address] Dr. Nidhi Dawn RBC 3.77 106/ul Critically low 4.20-5.40 [facility] Comment on above: Performed By: #### C BC #### [facility] [address] [place] [address] Dr. Nidhi Dawn WBC 15.4 103/ul Critically high 4.0-11.0 [facility] Comment on above: Performed By: #### C BC #### [facility] [address] [place] [address] Dr. Nidhi Dawn MAGNESIUMon 09-27-2022 Magnesium [Mass/Vol] 1.6 mg/dL Critically low 1.8-2.4 [facility] Comment on above: Performed By: #### C BC #### [facility] [address] [place] [address] Dr. Nidhi Dawn PROF 14(COMP METB)on 023 Albumin [Mass/Vol] 3.6 g/dL Normal 3.4-5.0 [facility] Comment on above: Performed By: #### C MP, CMADM #### [facility] [address] [place] [address] Dr. Nidhi Dawn Albumin/Globulin [Mass ratio] 1.2 {ratio} Normal [facility] Comment on above: Performed By: #### C MP, CMADM #### [facility] [address] [place] [address] Dr. Nidhi Dawn ALP [Catalytic activity/Vol] 60 U/L Normal 46-116 [facility] Comment on above: Performed By: #### C MP, CMADM #### [facility] [address] [place] [address] Dr. Nidhi Dawn ALT [Catalytic activity/Vol] 18 U/L Normal 14-59 [facility] Comment on above: Performed By: #### C MP, CMADM #### [facility] [address] [place] [address] Dr. Nidhi Dawn Anion gap [Moles/Vol] 9.3 mmol/L Normal [facility] Comment on above: Performed By: #### C MP, CMADM #### [facility] [address] [place] [address] Dr. Nidhi Dawn AST [Catalytic activity/Vol] 19 U/L Normal 15-37 [facility] Comment on above: Performed By: #### C MP, CMADM #### [facility] [address] [place] [address] Dr. Nidhi Dawn Bilirubin [Mass/Vol] 0.4 mg/dL Normal 0.2-1.0 [facility] Comment on above: Performed By: #### C MP, CMADM #### [facility] [address] [address] [address] Nidhi Dawn Calcium [Mass/Vol] 8.8 mg/dL Normal 8.5-10.1 [facility] Comment on above: Performed By: #### C MP, CMADM #### [facility] [address] [address] [address] Nidhi Dawn Chloride [Moles/Vol] 104 mmol/L Normal 98-107 [facility] Comment on above: Performed By: #### C MP, CMADM #### [facility] [address] [address] [address] Nidhi Dawn CO2 [Moles/Vol] 30.6 mmol/L Normal 21.0-32.0 [facility] Comment on above: Performed By: #### C DONA, CMADM #### [facility] [address] [place] [address] Dr. Nidhi Dawn Creatinine [Mass/Vol] 0.43 mg/dL Critically low 0.55-1.02 [facility] Comment on above: Performed By: #### C DONA, CMADM #### [facility] [address] [place] [address] Dr. Nidhi Dawn EGFR-AF COMORAN >60 Normal >=60 [facility] Comment on above: Performed By: #### C DONA, CMADM #### [facility] [address] [place] [address] Dr. Nidhi Dawn EGFR-NON AF COMORAN >60 Normal >=60 [facility] Comment on above: Performed By: #### C MP, CMADM #### [facility] [address] [address] [address] Nidhi Dawn Globulin (S) [Mass/Vol] 3.0 g/dL Normal [facility] Comment on above: Performed By: #### C MP, CMADM #### [facility] [address] [place] [address] Dr. Nidhi Dawn Glucose [Mass/Vol] 152 mg/dL Critically high 74-106 [facility] Comment on above: Performed By: #### C MP, CMADM #### [facility] [address] [address] [address] Nidhi Dawn Potassium [Moles/Vol] 2.9 mmol/L Critically low 3.5-5.1 [facility] Comment on above: Performed By: #### C MP, CMADM #### [facility] [address] [place] [address] Dr. Nidhi Dawn Protein [Mass/Vol] 6.6 g/dL Normal 6.4-8.2 [facility] Comment on above: Performed By: #### C DONA, CMADM #### [facility] [address] [place] [address] Dr. Nidhi Dawn Sodium [Moles/Vol] 140 mmol/L Normal 136-145 [facility] Comment on above: Performed By: #### C DONA, CMADM #### [facility] [address] [place] [address] Dr. Nidhi Dawn Urea nitrogen [Mass/Vol] 5.0 mg/dL Critically low 7.0-18.0 [facility] Comment on above: Performed By: #### C DONA, CMADM #### [facility] [address] [place] [address] Dr. Nidhi Dawn Urea nitrogen/Creatinine [Mass ratio] 11.6 mg/mg Normal [facility] Comment on above: Performed By: #### C DONA, CMADM #### [facility] [address] [place] [address] PELVIS WO CONon 2 CT PELVIS WO CON EXAMINATION: CT PELV IS WO CON HISTORY: Pain ; acute posterior hip and pelvis pain since falling 2 weeks ago COMPARISON: CT pelvis 12/13/2021 TECHNIQUE: Axial, Coronal, and Sagittal CT images obtained without IV contrast. Dose reduction techniques were achieved by using automated exposure control and/or adjustment of mA and/or kV according to patient size and/or use of iterative reconstruction technique. FINDINGS: BOWEL: Air and fluid-filled, mildly distended loops of small bowel. Marked diverticulosis of the visible colon without acute inflammatory changes. No free air or free fluid. LYMPH NODES: No adenopathy. URINARY BLADDER: No visible focal wall thickening, lesion, or calculus. PELVIC ORGANS: No visible mass. Pelvic organs appropriate for patient age. ANTERIOR WALL: No hernia. BONES: No displaced fractures of the right and left sides of the sacrum which appears to extend through the right side of the sacrum from anterior to posterior paralleling the sacroiliac joint, and involves the anterior lateral corner of the left side of the sacrum. Displaced, comminuted fractures of the right superior and inferior pubic rami and right pubis. Early callus formation is present along margins of the rami fractures. Small amount of surrounding soft tissue, likely residual blood products and edema. OTHER: Negative. IMPRESSION: 1. Nondisplaced fractures of the right and left sacrum; new since prior study. 2. Subacute displaced and comminuted fractures of the right superior and inferior pubic ramus and right pubis; new since prior study. Small amount of surrounding residual blood products/inflammation. No free fluid or appreciable involvement of intrapelvic structures. 3. Marked colonic diverticulosis. 4. And fluid-filled small bowel which is mildly dilated; possible mild ileus. Electronically authenticated by: TAYLOR PENA Date: 2022-05-02 16:39 Normal [facility] T4 LABCORPon 04-05-2022 T4 [Mass/Vol] 6.9 ug/dL Normal 4.5-12.0 [facility] Comment on above: Performed By: #### C BC #### [facility] [address] [address] [address] Nidhi Dawn CBC AUTO DIFFon 04-04-2022 BASO # 0.0 103/ul Normal 0.0-0.1 [facility] Comment on above: Performed By: #### C BC #### [facility] [address] [address] [address] Nidhi aDwn Basophils/100 WBC (Bld) 0.4 % Normal 0.2-2.0 [facility] Comment on above: Performed By: #### C BC #### [facility] [address] [address] [address] Nidhi Dawn EO # 0.2 103/ul Normal 0.0-0.7 [facility] Comment on above: Performed By: #### C BC #### [facility] [address] [place] [address] Dr. Nidhi Dawn Eosinophils/100 WBC (Bld) 3.1 % Normal 0.9-7.0 [facility] Comment on above: Performed By: #### C BC #### [facility] [address] [place] [address] Dr. Nidhi Dawn Erythrocyte distribution width (RBC) [Ratio] 13.6 % Normal 11.0-15.0 [facility] Comment on above: Performed By: #### C BC #### [facility] [address] [place] [address] Dr. Nidhi Dawn Hematocrit (Bld) [Volume fraction] 30.8 % Critically low 36.0-48.0 [facility] Comment on above: Performed By: #### C BC #### [facility] [address] [place] [address] Dr. Nidhi Dawn Hemoglobin (Bld) [Mass/Vol] 10.3 g/dL Critically low 12.0-16.0 [facility] Comment on above: Performed By: #### C BC #### [facility] [address] [place] [address] Dr. Nidhi Dawn IG # 0.04 10e3/ul Critically high 0.00-0.03 [facility] Comment on above: Performed By: #### C BC #### [facility] [address] [place] [address] Dr. Nidhi Dawn IG % 0.6 % Critically high 0.0-0.5 [facility] Comment on above: Performed By: #### C BC #### [facility] [address] [place] [address] Dr. Nidhi Dawn LYMPH # 1.3 103/ul Normal 1.2-3.8 [facility] Comment on above: Performed By: #### C BC #### [facility] [address] [place] [address] Dr. Nidhi Dawn Lymphocytes/100 WBC (Bld) 18.3 % Critically low 20.5-60.0 [facility] Comment on above: Performed By: #### C BC #### [facility] [address] [place] [address] Dr. Nidhi Dawn MANUAL DIFF REQ NO Normal [facility] Comment on above: Performed By: #### C BC #### [facility] [address] [place] [address] Dr. Nidhi Dawn MCH (RBC) [Entitic mass] 31.0 pg Normal 26.7-34.0 [facility] Comment on above: Performed By: #### C BC #### [facility] [address] [place] [address] Dr. Nidhi Dawn MCHC (RBC) [Mass/Vol] 33.4 g/dL Normal 29.9-35.2 [facility] Comment on above: Performed By: #### C BC #### [facility] [address] [place] [address] Dr. Nidhi Dawn MCV (RBC) [Entitic vol] 92.8 fL Normal 81.0-99.0 [facility] Comment on above: Performed By: #### C BC #### [facility] [address] [place] [address] Dr. Nidhi Dawn MONO # 1.0 103/ul Critically high 0.3-0.8 [facility] Comment on above: Performed By: #### C BC #### [facility] [address] [place] [address] Dr. Nidhi Dawn Monocytes/100 WBC (Bld) 13.7 % Critically high 1.7-12.0 [facility] Comment on above: Performed By: #### C BC #### [facility] [address] [place] [address] Dr. Nidhi Dawn NEUT # 4.5 103/ul Normal 1.4-6.5 [facility] Comment on above: Performed By: #### C BC #### [facility] [address] [place] [address] Dr. Nidhi Dawn Neutrophils/100 WBC (Bld) 63.9 % Normal 43.0-75.0 [facility] Comment on above: Performed By: #### C BC #### [facility] [address] [address] [address] Nidhi Dawn Platelet mean volume (Bld) [Entitic vol] 9.6 fL Normal 9.5-13.5 [facility] Comment on above: Performed By: #### C BC #### [facility] [address] [address] [address] Nidhi Dawn PLT 228 103/ul Normal 150-450 [facility] Comment on above: Performed By: #### C BC #### [facility] [address] [address] [address] Nidhi Dawn RBC 3.32 106/ul Critically low 4.20-5.40 [facility] Comment on above: Performed By: #### C BC #### [facility] [address] [address] [address] Nidhi Dawn WBC 7.0 103/ul Normal 4.0-11.0 [facility] Comment on above: Performed By: #### C BC #### [facility] [address] [address] [address] Nidhi Dawn CULTURE URINEon 04-04-2022 CULTURE URINE Isolate 1 Proteus mirabilis >100,000 cfu/ml of Isolate 2 Escherichia coli >100,000 cfu/ml of ORGANISM 1 Proteus mirabilis ANTIBIOTIC M.I.C RX STATUS Ampicillin <=2 S F Ampicillin/Sulbactam <=2 S F Piperacillin/Tazobactam <=4 S F Cefazolin <=4 S F Ceftazidime <=1 S F Ceftriaxone <=1 S F Ertapenem <=0.5 S F Imipenem 2 S F Amikacin <=2 S F Gentamicin <=1 S F Tobramycin <=1 S F Ciprofloxacin <=0.25 S F Levofloxacin <=0.12 S F Nitrofurantoin 128 R F Trimethoprim/Sulfamethoxaz ole <=20 S F ORGANISM 2 Escherichia coli ANTIBIOTIC M.I.C RX STATUS Ampicillin 4 S F Ampicillin/Sulbactam <=2 S F Piperacillin/Tazobactam <=4 S F Cefazolin <=4 S F Ceftazidime <=1 S F Ceftriaxone <=1 S F Ertapenem <=0.5 S F Imipenem <=0.25 S F Amikacin <=2 S F Gentamicin <=1 S F Tobramycin <=1 S F Ciprofloxacin <=0.25 S F Levofloxacin <=0.12 S F Nitrofurantoin <=16 S F Trimethoprim/Sulfamethoxaz ole <=20 S F Normal [facility] Comment on above: Performed By: #### C DONA, CMADM #### [facility] [address] [place] [address] Dr. Nidhi Dawn PROF CHEM 8 (BAS METB)on Anion gap [Moles/Vol] 8.8 mmol/L Normal [facility] Comment on above: Performed By: #### C DONA, LEONCIODM #### [facility] [address] [place] [address] Dr. Nidhi Dawn Calcium [Mass/Vol] 8.7 mg/dL Normal 8.5-10.1 [facility] Comment on above: Performed By: #### C DONA, CMADM #### [facility] [address] [place] [address] Dr. Nidhi Dawn Chloride [Moles/Vol] 101 mmol/L Normal 98-107 [facility] Comment on above: Performed By: #### C DONA, CMADM #### [facility] [address] [place] [address] Dr. Nidhi Dawn CO2 [Moles/Vol] 29.6 mmol/L Normal 21.0-32.0 [facility] Comment on above: Performed By: #### C DONA, CMADM #### [facility] [address] [place] [address] Dr. Nidhi Dawn Creatinine [Mass/Vol] 0.56 mg/dL Normal 0.55-1.02 [facility] Comment on above: Performed By: #### C DONA, LEONCIODM #### [facility] [address] [place] [address] Dr. Nidhi Dawn EGFR-AF COMORAN >60 Normal >=60 [facility] Comment on above: Performed By: #### C DONA, CMADM #### [facility] [address] [address] [address] Nidhi Dawn EGFR-NON AF COMORAN >60 Normal >=60 [facility] Comment on above: Performed By: #### C DONA, CMADM #### [facility] [address] [address] [address] Nidhi Dawn Glucose [Mass/Vol] 106 mg/dL Normal 74-106 [facility] Comment on above: Performed By: #### C DONA, CMADM #### [facility] [address] [place] [address] Dr. Nidhi Dawn Potassium [Moles/Vol] 3.4 mmol/L Critically low 3.5-5.1 [facility] Comment on above: Performed By: #### C DONA, CMADM #### [facility] [address] [place] [address] Dr. Nidhi Dawn Sodium [Moles/Vol] 136 mmol/L Normal 136-145 [facility] Comment on above: Performed By: #### C DONA, CMADM #### [facility] [address] [place] [address] Dr. Nidhi Dawn Urea nitrogen [Mass/Vol] 10.0 mg/dL Normal 7.0-18.0 [facility] Comment on above: Performed By: #### C DONA, CMADM #### [facility] [address] [place] [address] Dr. Nidhi Dawn Urea nitrogen/Creatinine [Mass ratio] 17.9 mg/mg Normal [facility] Comment on above: Performed By: #### C DONA, CMADM #### [facility] [address] [place] [address] Dr. Nidhi Dawn CBC AUTO DIFFon 04-03-2022 BASO # 0.0 103/ul Normal 0.0-0.1 [facility] Comment on above: Performed By: #### C BC #### [facility] [address] [place] [address] Dr. Nidhi Dawn Basophils/100 WBC (Bld) 0.4 % Normal 0.2-2.0 [facility] Comment on above: Performed By: #### C BC #### [facility] [address] [place] [address] Dr. Nidhi Dawn EO # 0.1 103/ul Normal 0.0-0.7 [facility] Comment on above: Performed By: #### C BC #### [facility] [address] [place] [address] Dr. Nidhi Dawn Eosinophils/100 WBC (Bld) 1.0 % Normal 0.9-7.0 [facility] Comment on above: Performed By: #### C BC #### [facility] [address] [place] [address] Dr. Nidhi Dawn Erythrocyte distribution width (RBC) [Ratio] 13.6 % Normal 11.0-15.0 [facility] Comment on above: Performed By: #### C BC #### [facility] [address] [place] [address] Dr. Nidhi Dawn Hematocrit (Bld) [Volume fraction] 28.4 % Critically low 36.0-48.0 [facility] Comment on above: Performed By: #### C BC #### [facility] [address] [place] [address] Dr. Nidhi Dawn Hemoglobin (Bld) [Mass/Vol] 9.2 g/dL Critically low 12.0-16.0 [facility] Comment on above: Performed By: #### C BC #### [facility] [address] [place] [address] Dr. Nidhi Dawn IG # 0.04 10e3/ul Critically high 0.00-0.03 [facility] Comment on above: Performed By: #### C BC #### [facility] [address] [place] [address] Dr. Nidhi Dawn IG % 0.5 % Normal 0.0-0.5 [facility] Comment on above: Performed By: #### C BC #### [facility] [address] [place] [address] Dr. Nidhi Dawn LYMPH # 1.1 103/ul Critically low 1.2-3.8 [facility] Comment on above: Performed By: #### C BC #### [facility] [address] [place] [address] Dr. Nidhi Dawn Lymphocytes/100 WBC (Bld) 13.6 % Critically low 20.5-60.0 [facility] Comment on above: Performed By: #### C BC #### [facility] [address] [place] [address] Dr. Nidhi Dawn MANUAL DIFF REQ NO Normal [facility] Comment on above: Performed By: #### C BC #### [facility] [address] [place] [address] Dr. Nidhi Dawn MCH (RBC) [Entitic mass] 30.0 pg Normal 26.7-34.0 [facility] Comment on above: Performed By: #### C BC #### [facility] [address] [place] [address] Dr. Nidhi Dawn MCHC (RBC) [Mass/Vol] 32.4 g/dL Normal 29.9-35.2 [facility] Comment on above: Performed By: #### C BC #### [facility] [address] [place] [address] Dr. Nidhi Dawn MCV (RBC) [Entitic vol] 92.5 fL Normal 81.0-99.0 [facility] Comment on above: Performed By: #### C BC #### [facility] [address] [place] [address] Dr. Nidhi Dawn MONO # 0.9 103/ul Critically high 0.3-0.8 [facility] Comment on above: Performed By: #### C BC #### [facility] [address] [place] [address] Dr. Nidhi Dawn Monocytes/100 WBC (Bld) 12.1 % Critically high 1.7-12.0 [facility] Comment on above: Performed By: #### C BC #### [facility] [address] [place] [address] Dr. Nidhi Dawn NEUT # 5.7 103/ul Normal 1.4-6.5 [facility] Comment on above: Performed By: #### C BC #### [facility] [address] [address] [address] Nidhi Dawn Neutrophils/100 WBC (Bld) 72.4 % Normal 43.0-75.0 [facility] Comment on above: Performed By: #### C BC #### [facility] [address] [place] [address] Dr. Nidhi Dawn Platelet mean volume (Bld) [Entitic vol] 10.1 fL Normal 9.5-13.5 [facility] Comment on above: Performed By: #### C BC #### [facility] [address] [place] [address] Dr. Nidhi Dawn PLT 174 103/ul Normal 150-450 [facility] Comment on above: Performed By: #### C BC #### [facility] [address] [place] [address] Dr. Nidhi Dawn RBC 3.07 106/ul Critically low 4.20-5.40 [facility] Comment on above: Performed By: #### C BC #### [facility] [address] [place] [address] Dr. Nidhi Dawn WBC 7.8 103/ul Normal 4.0-11.0 [facility] Comment on above: Performed By: #### C BC #### [facility] [address] [place] [address] Dr. Nidhi Dawn PROF CHEM 8 (BAS METB)on Anion gap [Moles/Vol] 11.2 mmol/L Normal [facility] Comment on above: Performed By: #### B MP #### [facility] [address] [place] [address] Dr. Nidhi Dawn Calcium [Mass/Vol] 8.4 mg/dL Critically low 8.5-10.1 [facility] Comment on above: Performed By: #### B MP #### [facility] [address] [place] [address] Dr. Nidhi Dawn Chloride [Moles/Vol] 100 mmol/L Normal 98-107 [facility] Comment on above: Performed By: #### B MP #### [facility] [address] [address] [address] Nidhi Dawn CO2 [Moles/Vol] 27.4 mmol/L Normal 21.0-32.0 [facility] Comment on above: Performed By: #### B MP #### [facility] [address] [address] [address] Nidhi Dawn Creatinine [Mass/Vol] 0.56 mg/dL Normal 0.55-1.02 [facility] Comment on above: Performed By: #### B MP #### [facility] [address] [address] [address] Nidhi Dawn EGFR-AF COMORAN >60 Normal >=60 [facility] Comment on above: Performed By: #### B MP #### [facility] [address] [place] [address] Dr. Nidhi Dawn EGFR-NON AF COMORAN >60 Normal >=60 [facility] Comment on above: Performed By: #### B MP #### [facility] [address] [address] [address] Nidhi Dawn Glucose [Mass/Vol] 113 mg/dL Critically high 74-106 T [facility] Comment on above: Performed By: #### B MP #### [facility] [address] [address] [address] Nidhi Dawn Potassium [Moles/Vol] 3.6 mmol/L Normal 3.5-5.1 [facility] Comment on above: Performed By: #### B MP #### [facility] [address] [address] [address] Nidhi Dawn Sodium [Moles/Vol] 135 mmol/L Critically low 136-[address] [facility] Comment on above: Performed By: #### B MP #### [facility] [address] [place] [address] Dr. Nidhi Dawn Urea nitrogen [Mass/Vol] 14.0 mg/dL Normal 7.0-18.0 [facility] Comment on above: Performed By: #### B MP #### [facility] [address] [place] [address] Dr. Nidhi Dawn Urea nitrogen/Creatinine [Mass ratio] 25.0 mg/mg Normal [facility] Comment on above: Performed By: #### B MP #### [facility] [address] [place] [address] Dr. Nidhi Dawn CBC AUTO DIFFon 04-02-2022 BASO # 0.0 103/ul Normal 0.0-0.1 [facility] Comment on above: Performed By: #### C BC #### [facility] [address] [place] [address] Dr. Nidhi Dawn Basophils/100 WBC (Bld) 0.3 % Normal 0.2-2.0 [facility] Comment on above: Performed By: #### C BC #### [facility] [address] [place] [address] Dr. Nidhi Dawn EO # 0.1 103/ul Normal 0.0-0.7 [facility] Comment on above: Performed By: #### C BC #### [facility] [address] [place] [address] Dr. Nidhi Dawn Eosinophils/100 WBC (Bld) 0.8 % Critically low 0.9-7.0 [facility] Comment on above: Performed By: #### C BC #### [facility] [address] [place] [address] Dr. Nidhi Dawn Erythrocyte distribution width (RBC) [Ratio] 13.8 % Normal 11.0-15.0 [facility] Comment on above: Performed By: #### C BC #### [facility] [address] [place] [address] Dr. Nidhi Dawn Hematocrit (Bld) [Volume fraction] 30.1 % Critically low 36.0-48.0 [facility] Comment on above: Performed By: #### C BC #### [facility] [address] [place] [address] Dr. Nidhi Dawn Hemoglobin (Bld) [Mass/Vol] 10.1 g/dL Critically low 12.0-16.0 [facility] Comment on above: Performed By: #### C BC #### [facility] [address] [place] [address] Dr. Nidhi Dawn IG # 0.03 10e3/ul Normal 0.00-0.03 [facility] Comment on above: Performed By: #### C BC #### [facility] [address] [place] [address] Dr. Nidhi Dawn IG % 0.3 % Normal 0.0-0.5 [facility] Comment on above: Performed By: #### C BC #### [facility] [address] [place] [address] Dr. Nidhi Dawn LYMPH # 1.0 103/ul Critically low 1.2-3.8 [facility] Comment on above: Performed By: #### C BC #### [facility] [address] [place] [address] Dr. Nidhi Dawn Lymphocytes/100 WBC (Bld) 10.6 % Critically low 20.5-60.0 [facility] Comment on above: Performed By: #### C BC #### [facility] [address] [place] [address] Dr. Nidhi Dawn MANUAL DIFF REQ NO Normal [facility] Comment on above: Performed By: #### C BC #### [facility] [address] [place] [address] Dr. Nidhi Dawn MCH (RBC) [Entitic mass] 30.7 pg Normal 26.7-34.0 [facility] Comment on above: Performed By: #### C BC #### [facility] [address] [place] [address] Dr. Nidhi Dawn MCHC (RBC) [Mass/Vol] 33.6 g/dL Normal 29.9-35.2 [facility] Comment on above: Performed By: #### C BC #### [facility] [address] [place] [address] Dr. Nidhi Dawn MCV (RBC) [Entitic vol] 91.5 fL Normal 81.0-99.0 [facility] Comment on above: Performed By: #### C BC #### [facility] [address] [place] [address] Dr. Nidhi Dawn MONO # 1.0 103/ul Critically high 0.3-0.8 [facility] Comment on above: Performed By: #### C BC #### [facility] [address] [place] [address] Dr. Nidhi Dawn Monocytes/100 WBC (Bld) 10.3 % Normal 1.7-12.0 [facility] Comment on above: Performed By: #### C BC #### [facility] [address] [place] [address] Dr. Nidhi Dawn NEUT # 7.4 103/ul Critically high 1.4-6.5 [facility] Comment on above: Performed By: #### C BC #### [facility] [address] [place] [address] Dr. Nidhi Dwan Neutrophils/100 WBC (Bld) 77.7 % Critically high 43.0-75.0 [facility] Comment on above: Performed By: #### C BC #### [facility] [address] [place] [address] Dr. Nidhi Dawn Platelet mean volume (Bld) [Entitic vol] 10.0 fL Normal 9.5-13.5 [facility] Comment on above: Performed By: #### C BC #### [facility] [address] [place] [address] Dr. Nidhi Dawn PLT 175 103/ul Normal 150-450 [facility] Comment on above: Performed By: #### C BC #### [facility] [address] [place] [address] Dr. Nidhi Dawn RBC 3.29 106/ul Critically low 4.20-5.40 [facility] Comment on above: Performed By: #### C BC #### [facility] [address] [place] [address] Dr. Nidhi Dawn WBC 9.5 103/ul Normal 4.0-11.0 [facility] Comment on above: Performed By: #### C BC #### [facility] [address] [place] [address] Dr. Nidhi Dawn ER URINE PROFILEon 2 Bilirubin Ql (U) Negative Normal NEGATIVE [facility] Comment on above: Performed By: #### C MP, CMADM #### [facility] [address] [address] [address] Nidhi Dawn Clarity (U) CLEAR Normal CLEAR [facility] Comment on above: Performed By: #### C MP, CMADM #### [facility] [address] [place] [address] Dr. Nidhi Dawn Color (U) YELLOW Normal YELLOW [facility] Comment on above: Performed By: #### C MP, CMADM #### [facility] [address] [place] [address] Dr. Nidhi Dawn ERUAHD A micrscopic examina tion will be performed if indicated. Normal [facility] Comment on above: Performed By: #### C MP, CMADM #### [facility] [address] [place] [address] Dr. Nidhi Dawn Glucose Ql (U) Negative Normal NEGATIVE [facility] Comment on above: Performed By: #### C MP, CMADM #### [facility] [address] [place] [address] Dr. Nidhi Dawn Hemoglobin Ql (U) MODERATE Abnormal NEGATIVE [facility] Comment on above: Performed By: #### C MP, CMADM #### [facility] [address] [place] [address] Dr. Nidhi Dawn Ketones Ql (U) TRACE Abnormal NEGATIVE [facility] Comment on above: Performed By: #### C MP, CMADM #### [facility] [address] [address] [address] Nidhi Dawn LEUKOCYTES MODERATE Abnormal NEGATIVE [facility] Comment on above: Performed By: #### C MP, CMADM #### [facility] [address] [address] [address] Nidhi Dawn Nitrite Ql (U) Positive Abnormal NEGATIVE [facility] Comment on above: Performed By: #### C MP, CMADM #### [facility] [address] [place] [address] Dr. Nidhi Dawn pH (U) [pH] Abnormal 5-9 [facility] Comment on above: Performed By: #### C MP, CMADM #### [facility] [address] [place] [address] Dr. Nidhi Dawn Protein (U) [Mass/Vol] 100 mg/dL Abnormal NEGAT GRIFFIN/ TRACE [facility] Comment on above: Performed By: #### C MP, CMADM #### [facility] [address] [place] [address] Dr. Nidhi Dawn SPEC GRAVITY <=1.005 Abnormal 1.005-<=1.[address] [place] [address] Comment on above: Performed By: #### C MP, CMADM #### [facility] [address] [place] [address] Dr. Nidhi Dawn UR MICRO IND INDICATED Normal [facility] Comment on above: Performed By: #### C MP, CMADM #### [facility] [address] [place] [address] Dr. Nidhi Dawn Urobilinogen Qn (U) 1.0 {Lawrence'U}/dL Normal 0.2 - 1. 0 [facility] Comment on above: Performed By: #### C MP, CMADM #### [facility] [address] [place] [address] Dr. Nidhi Dawn FREE T3on 04-02-2022 FREE T3 1.84 pg/mlL Critically low 2.18-3.98 [facility] Comment on above: Performed By: #### C BC #### [facility] [address] [place] [address] Dr. Nidhi Dawn PROF CHEM 8 (BAS METB)on Anion gap [Moles/Vol] 10.9 mmol/L Normal Th [facility] Comment on above: Performed By: #### C BC #### [facility] [address] [place] [address] Dr. Nidhi Dawn Calcium [Mass/Vol] 8.6 mg/dL Normal 8.5-10.1 [facility] Comment on above: Performed By: #### C BC #### [facility] [address] [place] [address] Dr. Nidhi Dawn Chloride [Moles/Vol] 102 mmol/L Normal 98-107 [facility] Comment on above: Performed By: #### C BC #### [facility] [address] [place] [address] Dr. Nidhi Dawn CO2 [Moles/Vol] 24.9 mmol/L Normal 21.0-32.0 [facility] Comment on above: Performed By: #### C BC #### [facility] [address] [place] [address] Dr. Nidhi Dawn Creatinine [Mass/Vol] 0.42 mg/dL Critically low 0.55-1.02 [facility] Comment on above: Performed By: #### C BC #### [facility] [address] [place] [address] Dr. Nidhi Dawn EGFR-AF COMORAN >60 Normal >=60 [facility] Comment on above: Performed By: #### C BC #### [facility] [address] [place] [address] Dr. Nidhi Dawn EGFR-NON AF COMORAN >60 Normal >=60 [facility] Comment on above: Performed By: #### C BC #### [facility] [address] [place] [address] Dr. Nidhi Dawn Glucose [Mass/Vol] 103 mg/dL Normal 74-106 [facility] Comment on above: Performed By: #### C BC #### [facility] [address] [place] [address] Dr. Nidhi Dawn Potassium [Moles/Vol] 3.8 mmol/L Normal 3.5-5.1 [facility] Comment on above: Performed By: #### C BC #### [facility] [address] [place] [address] Dr. Nidhi Dawn Sodium [Moles/Vol] 134 mmol/L Critically low 136-[address] [facility] Comment on above: Performed By: #### C BC #### [facility] [address] [place] [address] Dr. Nidhi Dawn Urea nitrogen [Mass/Vol] 14.0 mg/dL Normal 7.0-18.0 [facility] Comment on above: Performed By: #### C BC #### [facility] [address] [place] [address] Dr. Nidhi Dawn Urea nitrogen/Creatinine [Mass ratio] 33.3 mg/mg Normal [facility] Comment on above: Performed By: #### C BC #### [facility] [address] [place] [address] Dr. Nidhi Dawn URINE MICROSCOPIC ONLYon BACTERIA MODERATE Abnormal NONE SEEN [facility] Comment on above: Performed By: #### C MP, CMADM #### [facility] [address] [place] [address] Dr. Nidhi Dawn Bacteria identified Cx Nom (U) INDICATED Normal [facility] Comment on above: Performed By: #### C MP, CMADM #### [facility] [address] [place] [address] Dr. Nidhi Dawn CAST NONE SEEN Normal NONE SEEN [facility] Comment on above: Performed By: #### C MP, CMADM #### [facility] [address] [place] [address] Dr. Nidhi Dawn Crystals LM Nom (Urine sed) NONE SEEN Normal NONE SEEN [facility] Comment on above: Performed By: #### C DONA, CMADM #### [facility] [address] [place] [address] Dr. Nidhi Dawn Epithelial cells LM Ql (Urine sed) RARE Normal NONE SEEN /RARE [facility] Comment on above: Performed By: #### C DONA, CMADM #### [facility] [address] [place] [address] Dr. Nidhi Dawn MUCOUS TRACE Abnormal NONE SEEN [facility] Comment on above: Performed By: #### C DONA, CMADM #### [facility] [address] [place] [address] Dr. Nidhi Dawn RBC 5-10 Abnormal 0-2 [facility] Comment on above: Performed By: #### C DONA, CMADM #### [facility] [address] [place] [address] Dr. Nidhi Dawn WBC 10-20 Abnormal NONE SEEN [facility] Comment on above: Performed By: #### C MP, CMADM #### [facility] [address] [address] [address] Nidhi Dawn CBC AUTO DIFFon 04-01-2022 BASO # 0.0 103/ul Normal 0.0-0.1 [facility] Comment on above: Performed By: #### C BC #### [facility] [address] [address] [address] Nidhi Dawn Basophils/100 WBC (Bld) 0.1 % Critically low 0.2-2.0 [facility] Comment on above: Performed By: #### C BC #### [facility] [address] [place] [address] Dr. Nidhi Dawn EO # 0.0 103/ul Normal 0.0-0.7 [facility] Comment on above: Performed By: #### C BC #### [facility] [address] [place] [address] Dr. Nidhi Dawn Eosinophils/100 WBC (Bld) 0.1 % Critically low 0.9-7.0 [facility] Comment on above: Performed By: #### C BC #### [facility] [address] [place] [address] Dr. Nidhi Dawn Erythrocyte distribution width (RBC) [Ratio] 13.9 % Normal 11.0-15.0 [facility] Comment on above: Performed By: #### C BC #### [facility] [address] [place] [address] Dr. Nidhi Dawn Hematocrit (Bld) [Volume fraction] 31.4 % Critically low 36.0-48.0 [facility] Comment on above: Performed By: #### C BC #### [facility] [address] [place] [address] Dr. Nidhi Dawn Hemoglobin (Bld) [Mass/Vol] 10.3 g/dL Critically low 12.0-16.0 [facility] Comment on above: Performed By: #### C BC #### [facility] [address] [place] [address] Dr. Nidhi Dawn IG # 0.03 10e3/ul Normal 0.00-0.03 [facility] Comment on above: Performed By: #### C BC #### [facility] [address] [place] [address] Dr. Nidhi Dawn IG % 0.3 % Normal 0.0-0.5 [facility] Comment on above: Performed By: #### C BC #### [facility] [address] [place] [address] Dr. Nidhi Dawn LYMPH # 1.3 103/ul Normal 1.2-3.8 [facility] Comment on above: Performed By: #### C BC #### [facility] [address] [place] [address] Dr. Nidhi Dawn Lymphocytes/100 WBC (Bld) 13.5 % Critically low 20.5-60.0 [facility] Comment on above: Performed By: #### C BC #### [facility] [address] [place] [address] Dr. Nidhi Dawn MANUAL DIFF REQ NO Normal [facility] Comment on above: Performed By: #### C BC #### [facility] [address] [place] [address] Dr. Nidhi Dawn MCH (RBC) [Entitic mass] 30.3 pg Normal 26.7-34.0 [facility] Comment on above: Performed By: #### C BC #### [facility] [address] [place] [address] Dr. Nidhi Dawn MCHC (RBC) [Mass/Vol] 32.8 g/dL Normal 29.9-35.2 [facility] Comment on above: Performed By: #### C BC #### [facility] [address] [place] [address] Dr. Nidhi Dawn MCV (RBC) [Entitic vol] 92.4 fL Normal 81.0-99.0 [facility] Comment on above: Performed By: #### C BC #### [facility] [address] [place] [address] Dr. Nidhi Dawn MONO # 1.1 103/ul Critically high 0.3-0.8 [facility] Comment on above: Performed By: #### C BC #### [facility] [address] [place] [address] Dr. Nidhi Dawn Monocytes/100 WBC (Bld) 11.1 % Normal 1.7-12.0 [facility] Comment on above: Performed By: #### C BC #### [facility] [address] [place] [address] Dr. Nidhi Dawn NEUT # 7.4 103/ul Critically high 1.4-6.5 [facility] Comment on above: Performed By: #### C BC #### [facility] [address] [place] [address] Dr. Nidhi Dawn Neutrophils/100 WBC (Bld) 74.9 % Normal 43.0-75.0 [facility] Comment on above: Performed By: #### C BC #### [facility] [address] [place] [address] Dr. Nidhi Dawn Platelet mean volume (Bld) [Entitic vol] 9.9 fL Normal 9.5-13.5 [facility] Comment on above: Performed By: #### C BC #### [facility] [address] [place] [address] Dr. Nidhi Dawn PLT 219 103/ul Normal 150-450 [facility] Comment on above: Performed By: #### C BC #### [facility] [address] [place] [address] Dr. Nidhi Dawn RBC 3.40 106/ul Critically low 4.20-5.40 [facility] Comment on above: Performed By: #### C BC #### [facility] [address] [place] [address] Dr. Nidhi Dawn WBC 9.9 103/ul Normal 4.0-11.0 [facility] Comment on above: Performed By: #### C BC #### [facility] [address] [place] [address] Dr. Nidhi Dawn PROF CHEM 8 (BAS METB)on Anion gap [Moles/Vol] 9.7 mmol/L Normal [facility] Comment on above: Performed By: #### B MP #### [facility] [address] [address] [address] Nidhi Dawn Calcium [Mass/Vol] 8.5 mg/dL Normal 8.5-10.1 [facility] Comment on above: Performed By: #### B MP #### [facility] [address] [address] [address] Nidhi Dawn Chloride [Moles/Vol] 102 mmol/L Normal 98-107 [facility] Comment on above: Performed By: #### B MP #### [facility] [address] [address] [address] Nidhi Dawn CO2 [Moles/Vol] 28.8 mmol/L Normal 21.0-32.0 [facility] Comment on above: Performed By: #### B MP #### [facility] [address] [place] [address] Dr. Nidhi Dawn Creatinine [Mass/Vol] 0.54 mg/dL Critically low 0.55-1.02 [facility] Comment on above: Performed By: #### B MP #### [facility] [address] [place] [address] Dr. Nidhi Dawn EGFR-AF COMORAN >60 Normal >=60 [facility] Comment on above: Performed By: #### B MP #### [facility] [address] [place] [address] Dr. Nidhi Dawn EGFR-NON AF COMORAN >60 Normal >=60 [facility] Comment on above: Performed By: #### B MP #### [facility] [address] [place] [address] Dr. Nidhi Dawn Glucose [Mass/Vol] 108 mg/dL Critically high 74-106 [facility] Comment on above: Performed By: #### B MP #### [facility] [address] [address] [address] Nidhi Dawn Potassium [Moles/Vol] 3.5 mmol/L Normal 3.5-5.1 [facility] Comment on above: Performed By: #### B MP #### [facility] [address] [place] [address] Dr. Nidhi Dawn Sodium [Moles/Vol] 137 mmol/L Normal 136-145 [facility] Comment on above: Performed By: #### B MP #### [facility] [address] [place] [address] Dr. Nidhi Dawn Urea nitrogen [Mass/Vol] 14.0 mg/dL Normal 7.0-18.0 [facility] Comment on above: Performed By: #### B MP #### [facility] [address] [place] [address] Dr. Nidhi Dawn Urea nitrogen/Creatinine [Mass ratio] 25.9 mg/mg Normal [facility] Comment on above: Performed By: #### B MP #### [facility] [address] [place] [address] Dr. Nidhi Dawn CARDIAC CELESTINO ADMITon 022 CK [Catalytic activity/Vol] 60 U/L Normal 26-192 [facility] Comment on above: Performed By: #### C BC #### [facility] [address] [place] [address] Dr. Nidhi Dawn CK.MB [Mass/Vol] 2.29 ng/mL Normal <=3.60 [facility] Comment on above: Performed By: #### C BC #### [facility] [address] [place] [address] Dr. Nidhi Dawn HSTROP 5.8 pg/mL Normal 4.0-51.3 [facility] Comment on above: Result Comment: CUT- OFF POINTS HAVE BEEN ESTABLISHED BASED ON THE FOURTH UNIVERSAL DEFINITIONS OF MYOCARDIAL INFARCTION. THE UPPER REFERENCE LIMIT (URL) OF TROPONIN, DEFINED THE 99TH PERCENTILE OF cTnI DISTRIBUTION IN A REFERENCE POPULATION, HAS BEEN CONFIRMED THE DECISION THRESHOLD FOR AL DIAGNOSIS. Performed By: #### C BC #### [facility] [address] [place] [address] Dr. Nidhi Dawn BOBBY 63 ng/mL Normal 9-82 [facility] Comment on above: Performed By: #### C BC #### [facility] [address] [place] [address] Dr. Nidhi Dawn CBC AUTO DIFFon 03-31-2022 BASO # 0.0 103/ul Normal 0.0-0.1 [facility] Comment on above: Performed By: #### C BC #### [facility] [address] [place] [address] Dr. Nidhi Dawn Basophils/100 WBC (Bld) 0.3 % Normal 0.2-2.0 [facility] Comment on above: Performed By: #### C BC #### [facility] [address] [place] [address] Dr. Nidhi Dawn EO # 0.0 103/ul Normal 0.0-0.7 [facility] Comment on above: Performed By: #### C BC #### [facility] [address] [place] [address] Dr. Nidhi Dawn Eosinophils/100 WBC (Bld) 0.3 % Critically low 0.9-7.0 [facility] Comment on above: Performed By: #### C BC #### [facility] [address] [place] [address] Dr. Nidhi Dawn Erythrocyte distribution width (RBC) [Ratio] 13.8 % Normal 11.0-15.0 [facility] Comment on above: Performed By: #### C BC #### [facility] [address] [place] [address] Dr. Nidhi Dawn Hematocrit (Bld) [Volume fraction] 39.3 % Normal 36.0-48.0 [facility] Comment on above: Performed By: #### C BC #### [facility] [address] [place] [address] Dr. Nidhi Dawn Hemoglobin (Bld) [Mass/Vol] 12.8 g/dL Normal 12.0-16.0 [facility] Comment on above: Performed By: #### C BC #### [facility] [address] [place] [address] Dr. Nidhi Dawn IG # 0.10 10e3/ul Critically high 0.00-0.03 [facility] Comment on above: Performed By: #### C BC #### [facility] [address] [place] [address] Dr. Nidhi Dawn IG % 0.8 % Critically high 0.0-0.5 [facility] Comment on above: Performed By: #### C BC #### [facility] [address] [place] [address] Dr. Nidhi Dawn LYMPH # 1.1 103/ul Critically low 1.2-3.8 [facility] Comment on above: Performed By: #### C BC #### [facility] [address] [place] [address] Dr. Nidhi Dawn Lymphocytes/100 WBC (Bld) 9.3 % Critically low 20.5-60.0 [facility] Comment on above: Performed By: #### C BC #### [facility] [address] [place] [address] Dr. Nidhi Dawn MANUAL DIFF REQ NO Normal [facility] Comment on above: Performed By: #### C BC #### [facility] [address] [place] [address] Dr. Nidhi Dawn MCH (RBC) [Entitic mass] 30.0 pg Normal 26.7-34.0 [facility] Comment on above: Performed By: #### C BC #### [facility] [address] [place] [address] Dr. Nidhi Dawn MCHC (RBC) [Mass/Vol] 32.6 g/dL Normal 29.9-35.2 [facility] Comment on above: Performed By: #### C BC #### [facility] [address] [place] [address] Dr. Nidhi Dawn MCV (RBC) [Entitic vol] 92.3 fL Normal 81.0-99.0 [facility] Comment on above: Performed By: #### C BC #### [facility] [address] [place] [address] Dr. Nidhi Dawn MONO # 0.8 103/ul Normal 0.3-0.8 [facility] Comment on above: Performed By: #### C BC #### [facility] [address] [place] [address] Dr. Nidhi Dawn Monocytes/100 WBC (Bld) 6.6 % Normal 1.7-12.0 [facility] Comment on above: Performed By: #### C BC #### [facility] [address] [place] [address] Dr. Nidhi Dawn NEUT # 9.8 103/ul Critically high 1.4-6.5 [facility] Comment on above: Performed By: #### C BC #### [facility] [address] [place] [address] Dr. Nidhi Dawn Neutrophils/100 WBC (Bld) 82.7 % Critically high 43.0-75.0 [facility] Comment on above: Performed By: #### C BC #### [facility] [address] [place] [address] Dr. Nidhi Dawn Platelet mean volume (Bld) [Entitic vol] 9.3 fL Critically low 9.5-13.5 [facility] Comment on above: Performed By: #### C BC #### [facility] [address] [place] [address] Dr. Nidhi Dawn PLT 284 103/ul Normal 150-450 [facility] Comment on above: Performed By: #### C BC #### [facility] [address] [place] [address] Dr. Nidhi Dawn RBC 4.26 106/ul Normal 4.20-5.40 [facility] Comment on above: Performed By: #### C BC #### [facility] [address] [place] [address] Dr. Nidhi Dawn WBC 11.8 103/ul Critically high 4.0-11.0 [facility] Comment on above: Performed By: #### C BC #### [facility] [address] [place] [address] CHEST W CONon 03-31-2022 CT CHEST W CON EXAMINATION: CT CHES T W CON HISTORY: Unspecified fall ; right side pain COMPARISON: No relevant comparison available. TECHNIQUE: Multi-planar CT images were created with IV contrast. Axial, Coronal, and Sagittal images. Dose reduction techniques were achieved by using automated exposure control and/or adjustment of mA and/or kV according to patient size and/or use of iterative reconstruction technique. FINDINGS: LUNGS: No acute infiltrates. Mild changes of COPD. PLEURA: No mass, effusion, or pneumothorax. VASCULATURE: No abnormality. FRAN: No mass or adenopathy. MEDIASTINUM: No mass or adenopathy. CARDIAC: No enlargement, pericardial thickening, or significant calcification. AORTA: No aneurysm or dissection. CHEST WALL: No mass or axillary adenopathy. BONES: T6, T8 and T11 moderate compression fractures. LIMITED ABDOMEN: No suspicious findings Limited images of the upper abdomen. OTHER: Negative. IMPRESSION: 1. 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 No new findings. 2. No acute infiltrates. Chronic changes of COPD. Electronically authenticated by: TAYLOR PENA Date: 2022-03-31 14:[address] [facility] CT CSPINE WO CONon CT CSPINE WO CON EXAMINATION: CT CSPI NE WO CON HISTORY: Unspecified fall COMPARISON: No relevant comparison available. TECHNIQUE: Axial, Coronal, and Sagittal images were created without IV contrast. Dose reduction techniques were achieved by using automated exposure control and/or adjustment of mA and/or kV according to patient size and/or use of iterative reconstruction technique. FINDINGS: VERTEBRAL BODIES: Marked kyphosis. No fracture or spondylolisthesis. FACET JOINTS: No disruption or abnormal widening. Multilevel mild/moderate degenerative changes. CERVICAL DISCS: Posterior disc-osteophyte complex causing moderate narrowing C3-4 on left, C4-5 on right. CENTRAL CANAL: No spinal stenosis or evidence of hemorrhage. PARASPINAL AREA: No visible mass. IMPRESSION: 1. No acute bone abnormality. 2. Chronic degenerative changes. Electronically authenticated by: TAYLOR PENA Date: 2022-03-31 14:[address] [facility] CT HEAD WO CONon 03-31-2022 CT HEAD WO CON EXAMINATION: CT HEAD WO CON HISTORY: Unspecified fall COMPARISON: No relevant comparison available. TECHNIQUE: Axial CT images were obtained without IV contrast. Dose reduction techniques were achieved by using automated exposure control and/or adjustment of mA and/or kV according to patient size and/or use of iterative reconstruction technique. FINDINGS: BRAIN: No edema, hemorrhage, mass, acute infarction, or inappropriate atrophy. CSF SPACES: No hydrocephalus, subarachnoid hemorrhage, or mass. Appropriate for age. SKULL: No fracture, mass, or other significant visible lesion. SINUSES: No significant mucosal thickening or fluid on the limited views. ORBITS: No appreciable abnormality on the limited views. OTHER: Negative IMPRESSION: 1. No intracranial hemorrhage or appreciable acute abnormality. 2. Age consistent atrophy and chronic small vessel ischemic changes. 3. No fracture of the calvarium or scalp hematoma. Electronically authenticated by: TAYLOR PENA Date: 2022-03-31 14:11 Normal [facility] CT LSPINE WO CONon 2 CT LSPINE WO CON EXAMINATION: CT LSPI NE WO CON, 03/31/2022 1:16 PM EDT HISTORY: Unspecified fall COMPARISON: None. TECHNIQUE: CT of the lumbar spine was performed without IV contrast. CT dose reduction technique was used, including Automated Exposure Control. FINDINGS: PARASPINAL AREA: Normal with no visible mass. BONES: Moderate degenerative facet arthropathy L4-5, L5-S1. No fracture or spondylolisthesis. DISCS : Multilevel mild diffuse disc bulging causing mild foramen and central canal narrowing. Marked narrowing of the left L5-S1 neural foramen secondary to posterior disc-osteophyte complex and uncovertebral joint spurring. IMPRESSION: 1. No acute bone abnormality. 2. Multilevel degenerative changes, greatest at L5-S1. Electronically authenticated by: TAYLOR PENA Date: 2022-03-31 14:27 Normal [facility] Cov[facility]19 PCR [facility]on SARS-CoV-2 (COVID-19) RNA COLLINS+probe Ql (Unsp spec) Not detected Normal NOT DETECTED [facility] Comment on above: Result Comment: When diagnostic testing is negative, the possibility of a false negative should be considered in the context of a patient's recent exposures and the presence of clinical signs and symptoms consistent with SARS-CoV-2. This test is not yet approved or cleared by the [place] FDA. When there are no FDA-approved or cleared tests available, and other criteria are met, FDA can make tests available under an emergency access mechanism called an Emergency Use Authorization (EUA). The EUA for this test is supported by the [place] of Health and Human Service's declaration that circumstances exist to justify the emergency use of in vitro diagnostics for the detection and/or diagnosis of the virus that causes COVID-19. This EUA will remain in effect for the duration of the COVID-19 declaration justifying emergency of IVDs, unless it is terminated or revoked by the FDA (after which the test may no longer be used). Performed By: #### C [facility] #### [facility] [address] [place] [address] Dr. Nidhi Dawn PROF 14(COMP METB)on 022 Albumin [Mass/Vol] 3.7 g/dL Normal 3.4-5.0 [facility] Comment on above: Performed By: #### C BC #### [facility] [address] [place] [address] Dr. Nidhi Dawn Albumin/Globulin [Mass ratio] 1.2 {ratio} Normal [facility] Comment on above: Performed By: #### C BC #### [facility] [address] [place] [address] Dr. Nidhi Dawn ALP [Catalytic activity/Vol] 55 U/L Normal 46-116 [facility] Comment on above: Performed By: #### C BC #### [facility] [address] [place] [address] Dr. Nidhi Dawn ALT [Catalytic activity/Vol] 24 U/L Normal 14-59 [facility] Comment on above: Performed By: #### C BC #### [facility] [address] [place] [address] Dr. Nidhi Dawn Anion gap [Moles/Vol] 9.2 mmol/L Normal [facility] Comment on above: Performed By: #### C BC #### [facility] [address] [place] [address] Dr. Nidhi Dawn AST [Catalytic activity/Vol] 19 U/L Normal 15-37 [facility] Comment on above: Performed By: #### C BC #### [facility] [address] [place] [address] Dr. Nidhi Dawn Bilirubin [Mass/Vol] 0.5 mg/dL Normal 0.2-1.0 [facility] Comment on above: Performed By: #### C BC #### [facility] [address] [place] [address] Dr. Nidhi Dawn Calcium [Mass/Vol] 9.1 mg/dL Normal 8.5-10.1 [facility] Comment on above: Performed By: #### C BC #### [facility] [address] [place] [address] Dr. Nidhi Dawn Chloride [Moles/Vol] 103 mmol/L Normal 98-107 [facility] Comment on above: Performed By: #### C BC #### [facility] [address] [place] [address] Dr. Nidhi Dawn CO2 [Moles/Vol] 28.0 mmol/L Normal 21.0-32.0 [facility] Comment on above: Performed By: #### C BC #### [facility] [address] [place] [address] Dr. Nidhi Dawn Creatinine [Mass/Vol] 0.56 mg/dL Normal 0.55-1.02 [facility] Comment on above: Performed By: #### C BC #### [facility] [address] [place] [address] Dr. Nidhi Dawn EGFR-AF COMORAN >60 Normal >=60 [facility] Comment on above: Performed By: #### C BC #### [facility] [address] [place] [address] Dr. Nidhi Dawn EGFR-NON AF COMORAN >60 Normal >=60 [facility] Comment on above: Performed By: #### C BC #### [facility] [address] [place] [address] Dr. Nidhi Dawn Globulin (S) [Mass/Vol] 3.2 g/dL Normal [facility] Comment on above: Performed By: #### C BC #### [facility] [address] [place] [address] Dr. Nidhi Dawn Glucose [Mass/Vol] 140 mg/dL Critically high 74-106 T [facility] Comment on above: Performed By: #### C BC #### [facility] [address] [place] [address] Dr. Nidhi Dawn Potassium [Moles/Vol] 3.2 mmol/L Critically low 3.5-5.1 [facility] Comment on above: Performed By: #### C BC #### [facility] [address] [address] [address] Nidhi Dawn Protein [Mass/Vol] 6.9 g/dL Normal 6.4-8.2 [facility] Comment on above: Performed By: #### C BC #### [facility] [address] [address] [address] Nidhi Dawn Sodium [Moles/Vol] 137 mmol/L Normal 136-145 [facility] Comment on above: Performed By: #### C BC #### [facility] [address] [address] [address] Nidhi Dawn Urea nitrogen [Mass/Vol] 13.0 mg/dL Normal 7.0-18.0 [facility] Comment on above: Performed By: #### C BC #### [facility] [address] [place] [address] Dr. Nidhi Dawn Urea nitrogen/Creatinine [Mass ratio] 23.2 mg/mg Normal [facility] Comment on above: Performed By: #### C BC #### [facility] [address] [place] [address] Dr. Nidhi Dawn PROTIMEon 03-31-2022 INR Coag (PPP) [Relative time] 1.01 {INR} Normal [facility] Comment on above: Performed By: #### C BC #### [facility] [address] [place] [address] Dr. Nidhi Dawn INR GUIDELINES SEE BELOW Normal [facility] Comment on above: Result Comment: BASSEM RED INR: 2.0 - 3.0 CONDITIONS NOT LISTED BELOW 2.5 - 3.5 FOR PROSTHETIC HEART VALVE REPLACEMENT 2.5 - 3.5 RECURRENT THROMBOSIS Performed By: #### C BC #### [facility] [address] [place] [address] Dr. Nidhi Dawn PT Coag (PPP) [Time] 10.9 s Normal 9.0-11.6 [facility] Comment on above: Performed By: #### C BC #### [facility] [address] [place] [address] Dr. Nidhi Dawn PTTon 03-31-2022 aPTT Coag (Bld) [Time] 25.7 s Normal 22.3-36.2 [facility] Comment on above: Performed By: #### C BC #### [facility] [address] [address] [address] Nidhi Dawn TSHon 03-31-2022 TSH 3.763 uIU/mL Critically high 0.358-3.740 [facility] Comment on above: Performed By: #### C BC #### [facility] [address] [address] [address] Nidhi Dawn XR HIP RT 2 3V W PELVISon XR HIP RT 2 3V W PELVIS EXAM: XR FEMUR RT, XR HIP RT 2 3V W PELVIS HISTORY: Unspecified fall COMPARISON: None. TECHNIQUE: Single view the pelvis, 2 views of the right hip and 4 views of the right femur FINDINGS: The bones are diffusely osteopenic, which limits detection of subtle nondisplaced fracture. There are comminuted fractures involving the right superior and inferior pubic rami near the pubic symphysis. No other acute displaced fracture identified. The right hip and knee are congruent. 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 Mild osteoarthritis of the left hip. 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 IMPRESSION: Comminuted, mildly displaced right superior and inferior pubic rami fractures near The pubic symphysis. Electronically authenticated by: AVEL BUENO Date: 2022-03-31 14:33 Normal [facility] XR HIP RT 2 3V W PELVISon XR HIP RT 2 3V W PELVIS EXAM:XR HIP RT 2 3V W PELVIS INDICATION:Pain COMPARISON: None FINDINGS: The bones are diffusely osteopenic. The hip alignments are preserved. The obturator rings are intact. The visualized portion of the lower lumbar spine demonstrates severe spondylotic changes at L4-L5. Surgical clips are seen in the right hemiabdomen. There is gaseous distention of the small bowel loops in the visualized portion of the abdomen and pelvis. IMPRESSION: Osteopenia limits the evaluation for subtle fracture. Allowing for the limitation of the study, no obvious fracture deformity. However, radiograph is not a sensitive modality for occult fracture. If the clinical suspicion remains high, this can be further evaluated with MRI using trauma pelvis protocol. Electronically authenticated by: KANDIS KENNY Date: 2021-12-14 21:43 [address] [facility] CT PELVIS WO CONon 2 CT PELVIS WO CON EXAMINATION: CT PELV IS WO CON HISTORY: Pain COMPARISON: None. TECHNIQUE: Multiple axial images of the pelvis are obtained without the use of IV contrast material. Coronal and sagittal reformatted sequences are submitted for review. Dose reduction techniques were achieved by using automated exposure control and/or adjustment of mA and/or kV according to patient size and/or use of iterative reconstruction technique. FINDINGS: Mild diffuse bony demineralization is seen. No acute fracture seen. Joint alignment is normal. Joint spaces are preserved. The visualized soft tissues appear unremarkable. The urinary bladder appears unremarkable. No significant free fluid or abnormal fluid collection is seen in the abdomen and pelvis. Sigmoid diverticula are seen without significant associated inflammatory changes IMPRESSION: No acute fracture or malalignment. Mild diffuse bony demineralization. Sigmoid diverticulosis without CT evidence for diverticulitis Electronically authenticated by: ISRAEL JUÁREZ Date: 2021-12-13 18:51 Normal [facility] Vital Signs Date Time Vital Sign Value Performing Clinician Facility 10-03-2022 16:00-0400 Body temperature 97.6 [degF] S[employer]ANT OPERATOR-C Ashley Olvera Work Phone: [facility] 10-03-2022 16:00-0400 Diastolic blood pressure 79 mm[Hg] S[employer]OWER PLANT OPERATOR-C Ashley Olvera Work Phone: [facility] 10-03-2022 16:00-0400 Heart rate 77 /min S[employer]IOR POWER PLANT OPERATOR-C Ashley Olvera Work Phone: [facility] 10-03-2022 16:00-0400 Respiratory rate 16 /min S[employer]IOR POWER PLANT OPERATOR-C Ashley Olvera Work Phone: [facility] 10-03-2022 16:00-0400 SaO2% (BldA) [Mass fraction] 100 % [employer] PLANT OPERATOR-C Ashley Olvera Work Phone: [facility] 10-03-2022 16:00-0400 Systolic blood pressure 156 mm[Hg] SENIOR POWER PLANT OPERATOR-Mino Olvera Work Phone: [facility] 10-02-2022 20:00-0400 Inhaled oxygen flow rate 2 L/min SENIOR POWER PLANT OPERATOR-Mino Olvera Work Phone: [facility] 09-29-2022 06:00-0500 Body weight 49 kg SENIOR POWER PLANT OPERATOR-Mino Olvera Work Phone: [facility] 09-28-2022 16:10-0500 Body height 147.32 cm SENIOR POWER PLANT OPERATOR-Mino Olvera Work Phone: [facility] 09-28-2022 16:10-0500 Body mass index (BMI) [Ratio] 18.6 kg/m2 SENIOR POWER PLANT OPERATOR-Mino Olvera Work Phone: [facility] 12-13-2021 16:30-0400 Body height 152.4 cm Rylie Brooksmond Other [facility] Other 12-13-2021 16:30-0400 Body mass index (BMI) [Ratio] 19.33 kg/m2 Rylie Brooksmond Other [facility] Other 12-13-2021 16:30-0400 Body temperature 98 [degF] Rylie Brooksmond Other [facility] Other 12-13-2021 16:30-0400 Body weight 44.91 kg Rylie Brooksmond Other [facility] Other 12-13-2021 16:30-0400 Diastolic blood pressure 83 mm[Hg] Rylie Mandy Other [facility] Other 12-13-2021 16:30-0400 Respiratory rate 18 /min Rylie Galvan Other [facility] Other 12-13-2021 16:30-0400 SaO2% (BldA) [Mass fraction] 97 % Rylie Galvan Other [facility] Other 12-13-2021 16:30-0400 Systolic blood pressure 130 mm[Hg] Rylie Galvan Other [facility] Other Encounters Encounter Date Encounter Type Care Provider Facility Start: 10-25-2022 End: 10-25-2022 ambulatory Leighton Valente Other [employer] [facility] Other Start: 10-25-2022 Telephone encounter Leighton Valente [facility] Start: 10-14-2022 End: 10-14-2022 ambulatory ASHLEY OLVERA Facility: Start: 09-28-2022 End: 10-03-2022 Evaluation and management of inpatient Leighton Valente Facility:[facility] Start: 09-28-2022 End: 10-03-2022 Evaluation and management of inpatient SENIOR POWER PLANT OPERATOR-C Ashley Olvera Work Phone: [facility] Work Phone: Start: 09-27-2022 End: 09-28-2022 ambulatory JACIEL WILSON . Facility:[facility] Start: 05-02-2022 End: 05-02-2022 ambulatory ADELE NÚÑEZ . Facility:[facility] Start: 04-13-2022 Patient encounter procedure Storm Russell APRN.HVAC SHEET METAL INSTALLER Work Phone: [facility] Start: 04-13-2022 Progress Note Storm GARCIA RN.HVAC SHEET METAL INSTALLER Work Phone: [facility] Start: 04-08-2022 Patient encounter procedure Storm Russell APRN.HVAC SHEET METAL INSTALLER Work Phone: [facility] Start: 04-08-2022 Progress Note Storm GARCIA RN.HVAC SHEET METAL INSTALLER Work Phone: [facility] Start: 04-05-2022 Patient encounter procedure Debra Vásquez Work Phone: [facility] Start: 04-05-2022 Progress Note Debra Vásquez Work Phone: [facility] [employer] [facility] Start: 03-31-2022 End: 04-04-2022 Evaluation and management of inpatient DR GAB FONSECA . Facility: Start: 12-13-2021 End: 12-13-[address] BONIFACIO LEMOS . [facility] [email or web address] Other Start: 12-13-2021 Office outpatient visit 15 minutes Rylie Galvan [facility] Procedures Date Procedure Procedure Detail Performing Clinician Start: 10-03-2022 Plain X-ray of left hip SENIOR POWER PLANT OPERATOR-C Ashley Olvera Work Phone: Start: 09-28-2022 Plain X-ray of left hip SENIOR POWER PLANT OPERATOR-C Ashley Olvera Work Phone: Start: 09-28-2022 Open reduction with internal fixation SENIOR POWER PLANT OPERATOR-C Ashley Olvera Work Phone: Start: 09-28-2022 Plain X-ray of left femur SENIOR POWER PLANT OPERATOR-C Ashley Olvera Work Phone: Start: 09-28-2022 Plain X-ray of left hip SENIOR POWER PLANT OPERATOR-C Ashley Olvera Work Phone: Plan of Treatment Date Care Activity Detail Author Start: 10-03-2022 [facility] Start: 09-28-2022 [facility] Start: 09-28-2022 Consultation [facility] Start: 09-28-2022 Hospital admission [facility] Start: 03-24-2022 Influenza vaccination INFLUENZA (#1) [facility] Start: 07-24-2021 ADVANCE DIRECTIVE DISCUSSION ADVANCE DIRECTIVE DISCUSSION [facility] Start: 04-09-2019 DIABETES SCREEN DIABETES SCREEN [facility] Start: 2000 BONE DENSITY BONE DENSITY [facility] Start: 2000 PNEUMOCOCCAL: 65+ (1 - PCV) PNEUMOCOCCAL: 65+ (1 - PCV) [facility] Start: 1985 SHINGRIX VACCINE (1 of 2) BASILIO GRIX VACCINE (1 of 2) [facility] Start: 1954 Urine microalbumin profile DTAP,TDAP,TD (1 - Tdap) [facility] Start: 03-10-1936 COVID-19 VACCINE (#1) COVID-19 VACCI NE (#1) [facility] 25-hydroxyvitamin D2 [Mass/volume] in Serum or Plasma [facility] 25-hydroxyvitamin D3 [Mass/volume] in Serum or Plasma [facility] 25-Hydroxyvitamin D3+25-Hydroxyvitamin D2 [Mass/volume] in Serum or Plasma [facility] Patient referral [facility] Work Phone: XR Hip - left 2 Views [facility] Payers Date Payer Category Payer Medicare [id number] 2022 Self-pay 2016 Medicare UHC MEDICARE UHC MEDICARE ADVANTAGE PPO [id number] 2016-Present [phone] [address] [address] [place] [address] PPO [id number] 1959 Medicare [id number] 1959 Private Health Insurance [id number] 1935 Unknown [id number] 1935 Unknown [id number] 1935 Unknown [id number] 1935 Unknown [id number] 1935 Unknown [id number] Unknown [id number] Social History Date Type Detail Facility Sex Assigned At [employer] Other [facility] Start: 10-25-2016 Alcohol intake Current drinke r of alcohol (finding) [facility] Start: 1935 Sex Assigned At Not on file [facility] Start: 09-29-2022 Tobacco smoking stat [facility] Unknown if ever smoked [facility] Start: 1935 Sex Assigned At Female F [facility] Goals Date Patient Goal Desired Activity /State Functional Status Date Assessment Result Facility 09-28-2022 Functional status Patient Not at Baseline [facility] Work Phone: Mental Status Date Assessment Result Facility 09-28-2022 Cognitive function Cognitive Sta tus Patient Not at Baseline [facility] Work Phone: Clinical Notes 12-13-2021 to 10-02-2022 Note Date & Type Note Facility 10-02-2022 Progress note Note Date/Time October 02, 2022 12:44pm [facility] [address] [place] [address] Hospitalist Progress Note Signed Patient: Annamaria Garcia MR#: [id number] : 1935 Acct:[id number] Age/Sex: 87 / F Adm Date: 3 Loc: 4N Room: [address] [place] [address] Type: ADM IN Attending Dr: Gordon You MD Copies to: ~ Date of Service: 10/02/2022 Subjective Subjective Narrative: Patient seen and examined at bedside. No acute events overnight. Patient resting comfortably in bed, denying any pain at this time. Mentation significantly improved and continues to improve. Afebrile Exam Physical Exam Vital Signs: Temp Pulse Resp BP Pulse Ox O2 Del Method O2 Flow Rate 97.9 F 79 12 140/77 96 Room Air 2 10/02/22 12:13 10/02/22 12:13 10/02/22 12:13 10/02/22 12:13 10/02/22 12:13 10/02/22 12:13 10/01/22 20:00 Narrative: CONST-very thin, no acute distress CARDIAC-normal rate, regular rhythm, normal S1 & S2. PULM-clear without wheeze or rhonchi, 2 L, no accessory muscle use or cough noted ABD - Soft. Bowel sounds are normal. No distention No tenderness EXTREM-left hip tenderness, dressing clean dry and intact NEURO-confused, speech clear and tongue midline, equal facial symmetry no focal motor deficits Objective Lab Results 10/02/22 09:50 09/30/22 04:51 Meds Allergies and Active Meds Allergies No Known Allergies Allergy (Verified 09/28/22 03:47) Active Meds: Active Medications Generic Name Dose Route Start Last Admin Trade Name Freq PRN Reason Stop Dose Admin Acetaminophen 1,000 mg 09/30/22 00:00 10/01/22 06:54 Acetaminophen 500 Mg Tablet PO 10/10/23 00:00 1,000 mg Q8HR PRN Administration Fever or Pain Albuterol 2.5 mg 09/28/22 04:41 Albuterol Neb 2.5 Mg/3 Ml Vial.Neb INHALATION 09/28/23 04:40 Q2H PRN Shortness Of Breath Aspirin 325 mg 09/30/22 13:30 10/02/22 09:41 Aspirin 325 Mg Tablet PO 09/30/23 13:29 325 mg DAILY XIAO Administration Calcium Carbonate 1 tab 09/29/22 09:00 10/02/22 09:41 Calcium Carbonate/Vitamin D3 500 Mg/200 Unit Tablet PO 09/29/23 08:59 1 tab DAILY XIAO Administration Docusate Sodium 200 mg 09/28/22 04:41 Docusate 100 Mg Capsule PO 09/28/23 04:40 BID PRN Constipation Ferrous Sulfate 324 mg 09/29/22 09:00 10/02/22 09:41 Ferrous Sulfate 324 Mg Tablet. PO 09/29/23 08:59 324 mg DAILY XIAO Administration Hydralazine HCl 10 mg 09/28/22 04:41 Hydralazine 20 Mg/Ml Vial IV-PUSH 09/28/23 04:40 Q4H PRN if SBP > 185 Hydromorphone HCl 0.25 mg 09/28/22 17:59 09/28/22 17:53 Hydromorphone 0.5 Mg/0.5 Ml Syringe IV-PUSH 0.25 mg ONCE PRN Administration Pain Sodium Chloride 0 ml 09/28/22 07:54 09/28/22 09:38 Sodium Chloride 0.9 % 10 Ml Syringe IV-PUSH 09/28/23 07:53 10 ml PRN PRN Administration Flush A&P - Hospitalist Assessment/Plan (1) Hip fracture, left: Plan Left hip fracture?secondary to below Mechanical fall Delirium?improving ?POD #4 S/P intramedullary nailing left proximal femur ?Weightbearing status per orthopedics ?Vitamin D pending ?PT/OT ?Continue pain management and avoid opioids due to mental status Anemia of possible acute blood loss ?Hemoglobin 7.3, preprocedure of 11.5. Will transfuse to keep hemoglobin above 7 ?Iron panel with low iron and iron saturation, on iron supplementation ?No signs of bleeding noted ?Continue to monitor H&H Hypertension?stable ?Continue hydralazine as needed DVT prophylaxis: Aspirin 325 per orthopedics CODE STATUS: Full code Discharge disposition: Medically stable to be discharged awaiting for placement Attending Provider Attestation Attending Physician Attestation: I personally saw this patient on the day of the encounter, reviewed the history,performed the cherry elements of the exam, formulated the plan of care and confirmed ACOUSTIC SENSOR OPERATOR's written note. Documented By: Mimi Artis APRN 10/02/22 1241 Signed By: <Electronically signed by KHURRAM Artis> 10/02/22 1244 <Electronically signed by Gordon You MD> 10/02/222119 [facility] Work Phone: [phone] 126-403803-12-2023 Progress note Author Gordon You [facility] October 02, 2022 9:16pm Note Date/Time October 01, 2022 12: 12pm [facility] [address] [place] [address] Hospitalist Progress Note Signed Patient: Annamaria Garcia MR#: [id number] : 1935 Acct:[id number] Age/Sex: 87 / F Adm Date: 3 Loc: 4N Room: 5A0089-1 Type: ADM IN Attending Dr: Gordon You MD Copies to: ~ Date of Service: 10/01/2022 Subjective Subjective Narrative: Patient seen and examined at bedside. No acute events overnight. Pleasantly confused, however mentation has improved since surgery. Reporting little to moderate pain to the left hip. Denies chest pain, still on 2 L of oxygen, will try to wean off oxygen. No fever, chills, afebrile. She is tolerating her dietwell Exam Physical Exam Vital Signs: Temp Pulse Resp BP Pulse Ox O2 Del Method O2 Flow Rate 97.5 F L 74 16 132/63 100 Nasal Cannula 2 10/01/22 07:54 10/01/22 07:54 10/01/22 07:54 10/01/22 07:54 10/01/22 07:54 10/01/22 09:30 10/01/22 09:30 Narrative: CONST-very thin, no acute distress CARDIAC-normal rate, regular rhythm, normal S1 & S2. PULM-clear without wheeze or rhonchi, 2 L, no accessory muscle use or cough noted ABD - Soft. Bowel sounds are normal. No distention No tenderness EXTREM-left hip tenderness, dressing clean dry and intact NEURO-confused, speech clear and tongue midline, equal facial symmetry no focal motor deficits Objective Lab Results 10/01/22 04:44 09/30/22 04:51 Meds Allergies and Active Meds Allergies No Known Allergies Allergy (Verified 09/28/22 03:47) Active Meds: Active Medications Generic Name Dose Route Start Last Admin Trade Name Chong PRN Reason Stop Dose Admin Acetaminophen 1,000 mg 09/30/22 00:00 10/01/22 06:54 Acetaminophen 500 Mg Tablet PO 10/10/23 00:00 1,000 mg Q8HR PRN Administration Fever or Pain Albuterol 2.5 mg 09/28/22 04:41 Albuterol Neb 2.5 Mg/3 Ml Vial.Neb INHALATION 09/28/23 04:40 Q2H PRN Shortness Of Breath Aspirin 325 mg 09/30/22 13:30 10/01/22 09:34 Aspirin 325 Mg Tablet PO 09/30/23 13:29 325 mg DAILY XIAO Administration Calcium Carbonate 1 tab 09/29/22 09:00 10/01/22 09:34 Calcium Carbonate/Vitamin D3 500 Mg/200 Unit Tablet PO 09/29/23 08:59 1 tab DAILY XIAO Administration Docusate Sodium 200 mg 09/28/22 04:41 Docusate 100 Mg Capsule PO 09/28/23 04:40 BID PRN Constipation Ferrous Sulfate 324 mg 09/29/22 09:00 10/01/22 09:34 Ferrous Sulfate 324 Mg Tablet. PO 09/29/23 08:59 324 mg DAILY XIAO Administration Hydralazine HCl 10 mg 09/28/22 04:41 Hydralazine 20 Mg/Ml Vial IV-PUSH 09/28/23 04:40 Q4H PRN if SBP > 185 Hydromorphone HCl 0.25 mg 09/28/22 17:59 09/28/22 17:53 Hydromorphone 0.5 Mg/0.5 Ml Syringe IV-PUSH 0.25 mg ONCE PRN Administration Pain Sodium Chloride 0 ml 09/28/22 07:54 09/28/22 09:38 Sodium Chloride 0.9 % 10 Ml Syringe IV-PUSH 09/28/23 07:53 10 ml PRN PRN Administration Flush A&P - Hospitalist Assessment/Plan (1) Hip fracture, left: Plan Left hip fracture?secondary to below Mechanical fall Delirium?improving ?POD #3 S/P intramedullary nailing left proximal femur ?Weightbearing status per orthopedics ?Vitamin D pending ?PT/OT ?Continue pain management and avoid opioids due to mental status Anemia of possible acute blood loss ?Hemoglobin 7.4, preprocedure of 11.5. Will transfuse to keep hemoglobin above 7 ?Iron panel with low iron and iron saturation, on iron supplementation ?No signs of bleeding noted ?Continue to monitor H&H Hypertension?stable ?Continue hydralazine as needed . DVT prophylaxis SCDs for now, defer to orthopedic team Attending Provider Attestation Attending Physician Attestation: I personally saw this patient on the day of the encounter, reviewed the history,performed the cherry elements of the exam, formulated the plan of care and confirmed the ACOUSTIC SENSOR OPERATOR's written note. Documented By: Mimi Artis APRN 10/01/22 1207 Signed By: <Electronically signed by KHURRAM Artis> 10/01/22 1213 <Electronically signed by Gordon You MD> 10/02/222115 [facility] Work Phone: 1([phone]) [phone] Progress note Author Leighton Valente [facility] October 02, 2022 12:49pm Note Date/Time October 02, 2022 12: 43pm [facility] [address] [place] [address] Orthopedic Progress Note Signed Patient: Annamaria Garcia MR#: [id number] : 1935 Acct:[id number] Age/Sex: 87 / F Adm Date: 3 Loc: Room: [address] [place] [address] Type: ADM IN Attending Dr: Gordon You MD Copies to: ~ Date of Service: 10/02/2022 Exam Physical Exam Vital Signs: Temp Pulse Resp BP Pulse Ox O2 Del Method O2 Flow Rate 98.4 F 89 18 164/74 H 99 Room Air 2 10/02/22 03:19 10/02/22 03:19 10/02/22 03:19 10/02/22 03:19 10/02/22 03:19 10/02/22 03:19 10/01/22 20:00 Narrative: Patient is alert and oriented with no specific complaints. The wound is clean and dry. The calf and thigh are nontender with no evidence of DVT. The leg is neurovascularly intact. Patient is able to move the ankle and toes without difficulty. Objective Labs Labs: Laboratory Results - last 24 hr 10/01/22 04:44 Corrected WBC 7.3 Uncorrected WBC Count 7.3 RBC 2.37 L Hgb 7.4 L Hct 21.8 L MCV 91.8 MCH 31.0 MCHC 33.8 RDW 13.8 Plt Count 208 MPV 8.0 Neut % (Auto) 72.4 Lymph % (Auto) 12.7 [place] % (Auto) 13.6 Eos % (Auto) 1.0 Baso % (Auto) 0.3 Nucleat RBC Rel Count 0.0 Neut # (Auto) 5.3 Lymph # (Auto) 0.9 L [place] # (Auto) 1.0 H Eos # (Auto) 0.1 Baso # (Auto) 0.0 Assessment / Plan Assessment and plan (1) Hip fracture, left: Plan: Hopeful discharge to extended care facility Monday. We will repeat x-rays left Monday. Code(s): S72.002A - Fracture of unspecified part of neck of left femur, initial encounterfor closed fracture Status: Acute Documented By: Leighton Valente MD 10/02/22 0541 Signed By: <Electronically signed by MD Leighton Valente> 10/02/22 8816 [facility] Work Phone: 1(958) 561-120503-10-2023 Progress note Author Yani Cyr [facility] September 30, 2022 4:42pm Note Date/Time September 30, 2022 12: 30pm [facility] [address] [place] [address] Hospitalist Progress Note Signed Patient: Annamaria Garcia MR#: [id number] : 1935 Acct:[id number] Age/Sex: 87 / F Adm Date: 3 Loc: 4N Room: [address] [place] [address] Type: ADM IN Attending Dr: Yani Cyr MD Copies to: ~ Date of Service: 09/30/2022 Subjective Subjective Narrative: Patient seen and examined at bedside. No acute events overnight. Resting comfortably in chair, does not appear to be in a lot of pain. Her mental statusis slightly improved. Continues to be afebrile Exam Physical Exam Vital Signs: Temp Pulse Resp BP Pulse Ox O2 Del Method O2 Flow Rate 98.1 F 85 16 128/72 100 Nasal Cannula 2 09/30/22 08:40 09/30/22 08:40 09/30/22 08:40 09/30/22 08:40 09/30/22 08:40 09/30/22 08:40 09/30/22 08:40 Narrative: CONST-very thin, no acute distress CARDIAC-normal rate, regular rhythm, normal S1 & S2. PULM-clear without wheeze or rhonchi, 2 L, no accessory muscle use or cough noted ABD - Soft. Bowel sounds are normal. No distention No tenderness EXTREM-left hip tenderness, dressing clean dry and intact NEURO-confused, speech clear and tongue midline, equal facial symmetry no focal motor deficits Objective Lab Results 09/30/22 04:51 09/30/22 04:51 Meds Allergies and Active Meds Allergies No Known Allergies Allergy (Verified 09/28/22 03:47) Active Meds: Active Medications Generic Name Dose Route Start Last Admin Trade Name Chong PRN Reason Stop Dose Admin Acetaminophen 1,000 mg 09/30/22 00:00 Acetaminophen 500 Mg Tablet PO 10/10/23 00:00 Q8HR PRN Fever or Pain Albuterol 2.5 mg 09/28/22 04:41 Albuterol Neb 2.5 Mg/3 Ml Vial.Neb INHALATION 09/28/23 04:40 Q2H PRN Shortness Of Breath Calcium Carbonate 1 tab 09/29/22 09:00 09/30/22 08:13 Calcium Carbonate/Vitamin D3 500 Mg/200 Unit Tablet PO 09/29/23 08:59 1 tab DAILY XIAO Administration Docusate Sodium 200 mg 09/28/22 04:41 Docusate 100 Mg Capsule PO 09/28/23 04:40 BID PRN Constipation Ferrous Sulfate 324 mg 09/29/22 09:00 09/30/22 08:13 Ferrous Sulfate 324 Mg Tablet. PO 09/29/23 08:59 324 mg DAILY XIAO Administration Hydralazine HCl 10 mg 09/28/22 04:41 Hydralazine 20 Mg/Ml Vial IV-PUSH 09/28/23 04:40 Q4H PRN if SBP > 185 Hydromorphone HCl 0.25 mg 09/28/22 17:59 09/28/22 17:53 Hydromorphone 0.5 Mg/0.5 Ml Syringe IV-PUSH 0.25 mg ONCE PRN Administration Pain Sodium Chloride 0 ml 09/28/22 07:54 09/28/22 09:38 Sodium Chloride 0.9 % 10 Ml Syringe IV-PUSH 09/28/23 07:53 10 ml PRN PRN Administration Flush A&P - Hospitalist Assessment/Plan (1) Hip fracture, left: Plan Left hip fracture?secondary to below Mechanical fall Delirium?improving ?POD #2 S/P intramedullary nailing left proximal femur ?Weightbearing status per orthopedics ?Vitamin D pending ?PT/OT ?Continue pain management and avoid opioids due to mental status Anemia of possible acute blood loss ?Hemoglobin 7.8, preprocedure of 11.5. Will repeat hemoglobin and if less than 7 will transfuse ?No signs of bleeding noted ?Continue to monitor H&H Hypertension?likely due to pain ?Continue hydralazine as needed . DVT prophylaxis SCDs for now, defer to orthopedic team Documented By: Mimi Artis APRN 09/30/22 1228 Signed By: <Electronically signed by KHURRAM Artis> 09/30/22 1237 <Electronically signed by Yani Cyr MD> 09/30/22 1642 [facility] Work Phone: [phone] Progress note Author Leighton Valente [facility] September 29, 2022 12:30pm Note Date/Time September 29, 2022 7:53 am [facility] [address] [place] [address] Orthopedic Progress Note Signed Patient: Annamaria Garcia MR#: [id number] : 1935 Acct:[id number] Age/Sex: 87 / F Adm Date: 3 Loc: 4N Room: [address] [place] [address] Type: ADM IN Attending Dr: Adama Kothari MD Copies to: ~ Date of Service: 09/29/2022 Exam Physical Exam Vital Signs: Temp Pulse Resp BP Pulse Ox O2 Del Method O2 Flow Rate 98 F 76 15 139/74 94 L Nasal Cannula 2 09/29/22 01:20 09/29/22 05:04 09/29/22 05:04 09/29/22 05:04 09/29/22 05:04 09/29/22 05:04 09/29/22 05:04 Narrative: Patient is alert and oriented with no specific complaints. The wound is clean and dry. The calf and thigh are nontender with no evidence of DVT. The leg is neurovascularly intact. Patient is able to move the ankle and toes without difficulty. Const General: cooperative Objective Labs Labs: Laboratory Results - last 24 hr 09/28/22 09/28/22 04:49 08:12 POC Glucose 107 Vitamin B12 202 Assessment / Plan Assessment and plan (1) Hip fracture, left: Plan: We will allow toe-touch/foot down weightbearing for transfers. Patient will require extended care facility stay within the next couple days. Obtain x-rays of the left hip in 1 week and have the sent to our office. We will then repeat x-rays every 2 weeks up to the 6-week point. Code(s): S72.002A - Fracture of unspecified part of neck of left femur, initial encounterfor closed fracture Status: Acute Documented By: Leighton Valente MD 09/29/22 0752 Signed By: <Electronically signed by MD Leighton Valente> 09/29/22 1230 [facility] Work Phone: [phone] Consult note Author Leighton Valente [facility] September 29, 2022 7:45am Note Date/Time September 29, 2022 7:39 am [facility] [address] [place] [address] Orthopedic Consult Note Signed Patient: Annamaria Garcia MR#: [id number] : 1935 Acct:[id number] Age/Sex: 87 / F Adm Date: 3 Loc: Room: [address] [place] [address] Type: ADM IN Attending Dr: Adama Kothari MD Copies to: MD Leighton Paul MD Valerie J Castillo NP-C~ History of Present Illness HPI Consult date: 09/29/2022 Requesting provider: Adama Kothari MD History of present illness: Patient is an 87-year-old female who sustained a fall with complaints of left hip pain.. [facility]. [facility] have demonstrated displaced left intertrochanteric hip fracture. Review of Systems Review of Systems All other systems reviewed & are negative unless noted below or in HPI PMFSH Vaccinated for COVID-19?: Yes Medical History (Updated 09/29/22 @ 05:21 by Cary Zabala RN) Anemia Dementia Frequent falls HTN (hypertension) Surgical History (Updated 09/28/22 @ 04:36 by Zoya Watkins RN) No pertinent past surgical history Social History Smoking Status: Unknown if ever smoked Allergies & Medications Medications and Allergies Allergies No Known Allergies Allergy (Verified 09/28/22 03:47) Home Medications calcium citrate-vitamin D3 500 mg-200 unit chewable tablet 1 tab PO DAILY 09/28/22 [History Confirmed 09/28/22] ferrous sulfate 325 mg (65 mg iron) tablet 325 mg PO DAILY 09/28/22 [History Confirmed 09/28/22] Exam Physical Exam Vital Signs: Temp Pulse Resp BP Pulse Ox O2 Del Method O2 Flow Rate 98 F 76 15 139/74 94 L Nasal Cannula 2 09/29/22 01:20 09/29/22 05:04 09/29/22 05:04 09/29/22 05:04 09/29/22 05:04 09/29/22 05:04 09/29/22 05:04 Narrative: Patient was awake and responding however discussion occurred with patient's daughter. Const General: cooperative HEENT Head: normal to inspection Neck Neck: normal visual inspection and full ROM Resp Effort & Inspection: normal respiratory effort Extrem Other: Patient demonstrated intact passive motion of both shoulder elbow and wrist. Good muscle tone and joint stability. Skin intact Nonpainful motion right hip knee and ankle. Holding the left leg shortened and externally rotated. Skin intact Results Lab Results 09/28/22 04:49 09/28/22 04:49 Labs: Laboratory Results - Last 48 hrs. 09/28/22 08:12: POC Glucose 107 09/28/22 04:49: Vitamin B12 202 09/28/22 04:49: Albumin 4.0 09/28/22 04:49: PHA Creatinine Clear 31.68, Sodium 139, Potassium 3.3 L, Chloride 103, Carbon Dioxide 28.5, Anion Gap 10.8, BUN 8, Creatinine 0.40 L, Est GFR (CKD-EPI) > 60.0, Glucose 143 H, Calcium 9.0 09/28/22 04:49: PT 13.1 H, INR 1.1 09/28/22 04:49: Corrected WBC 12.2 H, Uncorrected WBC Count 12.2 H, RBC 3.73, Hgb 11.5 L, Hct 33.9 L, MCV 90.8, MCH 30.8, MCHC 34.0, RDW 13.9, Plt Count 253, MPV 8.0, Neut % (Auto) 87.9, Lymph % (Auto) 4.7, [place] % (Auto) 7.4, Eos % (Auto)0.0, Baso % (Auto) 0.0, Nucleat RBC Rel Count 0.1, Neut # (Auto) 10.7 H, Lymph #(Auto) 0.6 L, [place] # (Auto) 0.9 H, Eos # (Auto) 0.0, Baso # (Auto) 0.0 09/28/22 04:49: Magnesium 1.9 H & H 09/28/22 Range/Units 04:49 Hgb 11.5 L (11.8-15.4) g/dL Hct 33.9 L (34.0-46.4) % Coagulation 09/28/22 Range/Units 04:49 INR 1.1 All other labs are normal. Imaging & Diagnostic Results Imaging/Diagnostics: AP and lateral views of the left hip demonstrate a comminuted shortened left intertrochanteric hip fracture Assessment/Plan (1) Hip fracture, left: Plan: Patient has sustained a displaced left intertrochanteric hip fracture. We will need to plan on internal fixation. This was extensively discussed with patient's daughter and son. Code(s): S72.002A - Fracture of unspecified part of neck of left femur, initial encounterfor closed fracture Documented By: Leighton Valente MD 09/29/22 0735 Signed By: <Electronically signed by MD Leighton Valente> 09/29/22 0745 [facility] Work Phone: 1([phone]) [phone] History and physical note Author Juliet Green [facility] September 28, 2022 9:41pm Note Date/Time September 28, 2022 4:41 am [facility] [address] [place] [address] Hospitalist H&P Signed Patient: Annamaria Garcia MR#: [id number] : 1935 Acct:[id number] Age/Sex: 87 / F Adm Date: 3 Loc: Room: [address] [place] [address] Type: ADM IN Attending Dr: Adama Kothari MD Copies to: MD Juliet Paul MD Valerie J Castillo SENIOR POWER PLANT OPERATOR-C~ HPI DATE OF EXAMINATION: 09/28/22 CHIEF COMPLAINT: hip fx HISTORY OF PRESENT ILLNESS: 87 years old female sustained what it seems mechanical fall, without any prodromal symptoms at home, where she lives alone, and presented to [facility] emergency room where she was diagnosed with intertrochanteric fracture of the proximal left femur. She laid on the ground for roughly 3.5 hours before relative found her and called 911. Upon arrival her blood pressure was in 200s. the case was discussed with our orthopedic surgeon who agreed to see the patient in consultation here. When I saw the patient on the floor she was confused, poor historian, she complained of left hip pain otherwise she denied any complaints. The patient's niece was at the bedside. No known history of cardiac or pulmonary problems. She lives alone at home, she sustained a fall last summer as well complicated by pelvic fractures. Since then she was not driving the car. CT abdomen and pelvis without contrast no acute abdominal findings CT spine without contrast no visualized abnormalities CT head without contrast without acute findings CT spine without contrast without acute findings While blood cell count 15.4, hemoglobin 11.7, platelets 274 Creatinine kinase 96 which is normal troponins 8.6 which is normal Sodium 140, potassium 2.9, chloride 104, bicarbonate 30, glucose 152, BUN 5, creatinine 0.4, calcium 8.8, ALT 18, AST 19, bilirubin normal EKG very poor quality, with a lot of artifact, normal sinus rhythm with ventricular rate 70, with QTc [address]-T wave changes Review of system is limited as the patient is confused and poor historian General -patient is awake alert oriented 1/2, lying in flat position, does not appear to be in respiratory distress HEENT -dry oropharyngeal mucosa without any ulcers or exudates Cardiovascular -S1 plus S2, with regular rate, no significant murmurs, I did notappreciate any carotid bruit Pulmonary -clear to auscultation bilaterally Gastrointestinal -abdomen is soft, nondistended, nontender, bowel sounds positive, no rigidity, no rebound Genitourinary -deferred Musculoskeletal -left external rotated and shortened leg Neurological -no focal Skin -no significant ulcers, no rash noted Extremities - no edema in bilateral lower extremities noted Psychiatry - appropriate affect Laboratory work up, imaging studies reviewed EKG personally reviewed by me as noted above Previous records in the computer system reviewed [facility] Vaccinated for COVID-19?: Yes Surgical History (Updated 09/28/22 @ 04:36 by Zoya Watkins RN) No pertinent past surgical history Social History Smoking Status: Unknown if ever smoked Meds Medications and Allergies Allergies No Known Allergies Allergy (Verified 09/28/22 03:47) Home Medications calcium citrate-vitamin D3 500 mg-200 unit chewable tablet 1 tab PO DAILY 09/28/22 [History Confirmed 09/28/22] ferrous sulfate 325 mg (65 mg iron) tablet 325 mg PO DAILY 09/28/22 [History Confirmed 09/28/22] Exam Physical Exam Vital Signs: Temp Pulse Resp BP Pulse Ox O2 Del Method O2 Flow Rate 37.1 C 77 18 183/80 H 97 Nasal Cannula 2 09/28/22 03:28 09/28/22 03:28 09/28/22 03:28 09/28/22 03:28 09/28/22 03:28 09/28/22 03:40 09/28/22 03:40 A&P - Hospitalist Assessment/Plan (1) Hip fracture, left: Plan 1. Status post mechanical fall associated with left hip fracture We will consult orthopedic team 2. Hypertension with elevated blood pressure, resume home medications and starthydralazine on as-needed basis 3. Hypokalemia, will replace and recheck 4. DVT prophylaxis SCDs for now Documented By: Juliet Green MD 09/28/22 0434 Signed By: <Electronically signed by Juliet Green MD> 09/28/22 2141 [facility] Work Phone: 1([phone]) 281-804203-08-2023 Progress note Author Adama Kothari [facility] September 28, 2022 7:19pm Note Date/Time September 28, 2022 10:0 4am [facility] [address] [place] [address] Hospitalist Progress Note Signed Patient: Annamaria Garcia MR#: [id number] : 1935 Acct:[id number] Age/Sex: 87 / F Adm Date: 3 Loc: Room: [address] [place] [address] Type: ADM IN Attending Dr: Adama Kothari MD Copies to: ~ Date of Service: 09/28/2022 Subjective Subjective Narrative: Patient seen and examined with family in the room, just medicated and resting comfortably. No chest pain, on 2 L of oxygen via nasal cannula, no heart palpitation. No fever, chills, nausea vomiting. No urinary symptoms Exam Physical Exam Vital Signs: Temp Pulse Resp BP Pulse Ox O2 Del Method O2 Flow Rate 97.9 F 71 16 164/83 H 98 Nasal Cannula 2 09/28/22 07:45 09/28/22 07:45 09/28/22 07:45 09/28/22 07:45 09/28/22 07:45 09/28/22 07:45 09/28/22 07:45 Narrative: CONST-very thin, no acute distress HEAD - Normocephalic and atraumatic EENT-Sclera nonicteric and conjunctive are nonerythemic, moist oral mucosa, pharynx clear NECK-Supple, no cervical lymphadenopathy CARDIAC-normal rate, regular rhythm, normal S1 & S2. PULM-clear without wheeze or rhonchi, RA, no accessory muscle use or cough noted ABD - Soft. Bowel sounds are normal. No distention No tenderness EXTREM-left hip tenderness, leg extended rotated and shortened SKIN- W/D good turgor MS- MAEX4 spontaneously with equal with equal strength NEURO- A&Ox3 speech clear and tongue midline, equal facial symmetry no focal motor deficits PSYCH-Mood, affect and behavior appropriate Objective Lab Results 09/28/22 04:49 09/28/22 04:49 Meds Allergies and Active Meds Allergies No Known Allergies Allergy (Verified 09/28/22 03:47) Active Meds: Active Medications Generic Name Dose Route Start Last Admin Trade Name Rudolphq PRN Reason Stop Dose Admin Acetaminophen 650 mg 09/28/22 04:41 Acetaminophen 325 Mg Tablet PO 09/28/23 04:40 Q4H PRN Pain Scale 1 - 5 Albuterol 2.5 mg 09/28/22 04:41 Albuterol Neb 2.5 Mg/3 Ml Vial.Neb INHALATION 09/28/23 04:40 Q2H PRN Shortness Of Breath Calcium Carbonate 1 tab 09/29/22 09:00 Calcium Carbonate/Vitamin D3 500 Mg/200 Unit Tablet PO 09/29/23 08:59 DAILY XIAO Docusate Sodium 200 mg 09/28/22 04:41 Docusate 100 Mg Capsule PO 09/28/23 04:40 BID PRN Constipation Ferrous Sulfate 324 mg 09/29/22 09:00 Ferrous Sulfate 324 Mg Tablet. PO 09/29/23 08:59 DAILY XIAO Hydralazine HCl 10 mg 09/28/22 04:41 Hydralazine 20 Mg/Ml Vial IV-PUSH 09/28/23 04:40 Q4H PRN if SBP > 185 Hydromorphone HCl 0.25 mg 09/28/22 04:41 09/28/22 09:38 Hydromorphone 0.5 Mg/0.5 Ml Syringe IV-PUSH 0.25 mg Q4H PRN Administration Pain Potassium Chloride/Sodium Chloride 1,000 mls @ 75 mls/hr 09/28/22 05:30 09/28/22 07:48 0.9 % Nacl-20 Meq Kcl IV 09/28/23 05:29 75 mls/hr .[id number] XIAO Administration Lactated Ringer's 1,000 mls @ 20 mls/hr 09/28/22 07:54 Lactated Ringers IV 09/29/22 07:53 .Q24H ONE Sodium Chloride 0 ml 09/28/22 07:54 09/28/22 09:38 Sodium Chloride 0.9 % 10 Ml Syringe IV-PUSH 09/28/23 07:53 10 ml PRN PRN Administration Flush A&P - Hospitalist Assessment/Plan (1) Fall: (2) Hip fracture, left: Plan Left hip fracture secondary to below Mechanical fall ?Hip and pelvis x-ray with left intertrochanteric hip fracture ?CT brain without contrast shows no acute intracranial processes ?Orthopedic consulted, n.p.o. since after midnight,anticipating surgery ?Check vitamin D, B12 ?Pain control with IV opiates ?PT/OT Hypertension?likely due to pain ?Continue hydralazine as needed Hypokalemia?repleted DVT prophylaxis: SCDs CODE STATUS: Full code Documented By: Mimi Artis APRN 09/28/22 0952 Signed By: <Electronically signed by KHURRAM Artis> 09/28/22 1004 <Electronically signed by Adama Kothari MD> 09/28/22 1919 [facility] Work Phone: 1(414) 594-935203-08-2023 Hospital Discharge instructions Additional Instructions SNF Physician: - PT/OT to eval and treat - Monitor VS routine - Hx. HTN - Orthopedic assessments - Dx. Left hip fracture with surgery 09/28/22 -- Toe-touch/foot down weightbearing for transfers -- Obtain x-rays of the left hip in 1 week and have the sent to our office. -- We will then repeat x-rays every 2 weeks up to the 6-week point. - Fall precautions - high fall risk, recent fall - Routine skin assessments/care -- Every 3 days - Mepilex border foam to Coccyx for protection. [facility] Work Phone: [phone]) 477-656309-26-2022 NoteHNO ID: [id number] Author: Storm Russell APRN.[employer] INST[employer]ER Service: ? Author Type: Nurse Specialist Type: Progress Notes Filed: 04/21/2022 7:19 AM Note Text: [facility] NOTE NAME: STANISLAW GARCIA NO.: [id number] DATE OF SERVICE: 04/18/2022 [facility] DATE OF : 1935 REASON FOR VISIT: The patient is a resident of [facility]. This is a skilled visit for fracture of the right pubis subsequent encounter with routine healing and other medical concerns. Upon entering room, found the patient alert, sitting up in bed, taking morning meal. The patient does not appear to be in distress or discomfort. The patient is pleasantly confused and does not appear to be in distress or discomfort. The patient states she feels well. The patient states has been up, walking up and down the halls and states has very minimal pain. The patient states no cough, shortness of breath. No fever, chills, or nausea. States appetite has been good and bowels have been moving. States has been drinking fluids. Denies urinary symptoms. MEDICATIONS: Medications have been reviewed. EXAMINATION: Temp 97.6, blood pressure 132/83, pulse 69, respirations 18, pulse ox 94% on room air. Weight 92.2 pounds. Respiratory: Respirations are easy and unlabored with the patient at rest. Lung sounds clear. Heart: Heart rate and rhythm are regular. Abdomen: Soft, nontender with palpation. Bowel sounds present x4. Extremities: Non-edematous. Musculoskeletal: The patient is noted moving bilateral lower extremities without difficulty. Full sensorium is stated. IMPRESSION AND PLAN: 1. Fracture of the right pubis subsequent encounter. Continue with therapy services. The patient has Percocet for pain and acetaminophen for lesser pain. 2. Gait instability and unsteadiness on feet. Continue with therapy services. 3. Anemia. Continue ferrous sulfate. 4. Generalized weakness. Again continue with therapy services. 5. Mild cognitive impairment. Continue monitor the patient and the patient's safety. Provide supportive care. 6. Hypothyroidism. On no supplement. DICTATED BY: SARAH Bliss/Bernice JOB# [id number] cc:[facility]09-21-2022 NoteHNO ID: [id number] Author: Storm Russell APRN.[employer] INSTALLER Service: ? Author Type: Nurse Specialist Type: Progress Notes Filed: 04/14/2022 3:59 PM Note Text: [facility] NAME: STANISLAW GARCIA NO.: [id number] DATE OF SERVICE: 04/13/2022 [facility] DATE OF : 1935 REASON FOR VISIT: The patient is a resident of [facility]. This is a skilled visit for fracture of the right pelvis subsequent encounter with routine healing and other medical concerns. Upon entering room, found the patient calm, alert, sitting upright in bed, working on puzzles. The patient does not appear to be in distress or discomfort. The patient does have confusion and states does not remember me from previous visit likely last week, re-introduced myself. The patient states was doing therapy today and stated the pain seemed to be intensifying and all of a sudden, the patient states pain relief and had very little pain to the right posterior hip. The patient states at this time she has very little pain. The patient states the medication for pain has been helping. The patient states no complaints of cough, shortness of breath. No fever, chills, or nausea. States appetite is good. Bowels have been moving. States has been drinking fluids. Denies urinary symptoms. The patient states no paresthesias down to right lower extremity MEDICATIONS: Medications have been reviewed. EXAMINATION: Temp 97.9, blood pressure 152/93, pulse 81, respirations 16, pulse ox 99% on room air. Weight 92.2 pounds. Respiratory: Respirations are easy and unlabored with the patient at rest. Lung sounds are clear. Heart: Heart rate and rhythm are regular. Abdomen: Soft, nontender with palpation. Bowel sounds present x4. Extremities: Non-edematous. Musculoskeletal: The patient has limited range of motion to right lower extremity. Full sensorium is stated. Right pedal pulses palpable. IMPRESSION AND PLAN: 1. Fracture of the right pubis subsequent encounter covered with routine healing. Continue with acetaminophen for lesser pain, Percocet for more severe pain. The patient will continue with therapy services. 2. Unsteadiness on feet and gait instability. The patient is working with therapy services. 3. Urinary tract infection. No urinary symptoms are stated. 4. Anemia from iron deficiency. Currently on ferrous sulfate. 5. Generalized weakness. Again the patient is working with therapy services. 6. Cognitive impairment. Continue to monitor the patient and the patient's safety, provide supportive care. DICTATED BY: SARAH Bliss/Bernice JOB# [id number] cc:[facility]09-21-2022 History of Present illness Narrative* Storm Russell APRN.[employer] INST[employer]ER - 04/13/2022 12:00 AM EDT [facility] NAME: STANISLAW GARCIA NO.: [id number] DATE OF SERVICE: 04/13/2022 [facility] DATE OF : 1935 REASON FOR VISIT: The patient is a resident of [facility]. This is a skilled visit for fracture of the right pelvis subsequent encounter with routine healing and other medical concerns. Upon entering room, found the patient calm, alert, sitting upright in bed, working on puzzles. The patient does not appear to be in distress or discomfort. The patient does have confusion and states does not remember me from previous visit likely last week, re-introduced myself. The patient states was doing therapy today and stated the pain seemed to be intensifying and all of a sudden, the patient states pain relief and had very little pain to the right posterior hip. The patient states at this time she has very little pain. The patient states the medication for pain has been helping. The patient states no complaints of cough, shortness of breath. No fever, chills, or nausea. States appetite is good. Bowels have been moving. States has been drinking fluids. Denies urinary symptoms. The patient states no paresthesias down to right lower extremity MEDICATIONS: Medications have been reviewed. EXAMINATION: Temp 97.9, blood pressure 152/93, pulse 81, respirations 16, pulse ox 99% on room air.Weight 92.2 pounds. Respiratory: Respirations are easy and unlabored with the patient at rest. Lungsounds are clear. Heart: Heart rate and rhythm are regular. Abdomen: Soft, nontender with palpation. Bowel sounds present x4. Extremities: Non-edematous. Musculoskeletal: The patient has limited range of motion to right lower extremity. Full sensorium is stated. Right pedal pulses palpable. IMPRESSION AND PLAN: 1. Fracture of the right pubis subsequent encounter covered with routine healing. Continue with acetaminophen for lesser pain, Percocet for more severe pain. The patient will continue with therapy services. 2. Unsteadiness on feet and gait instability. The patient is working with therapy services. 3. Urinary tract infection. No urinary symptoms are stated. 4. Anemia from iron deficiency. Currently on ferrous sulfate. 5. Generalized weakness. Again the patient is working with therapy services. 6. Cognitive impairment. Continue to monitor the patient and the patient's safety, provide supportive care. DICTATED BY: SARAH Bliss/Bernice JOB# [id number] cc:[facility] NoteHNO ID: [id number] Author: Storm Russell APRN.[employer] INSTALLER Service: ? Author Type: Nurse Specialist Type: Progress Notes Filed: 04/11/2022 7:39 PM Note Text: [facility] NAME: STANISLAW GARCIA NO.: [id number] DATE OF SERVICE: 04/08/2022 [facility] DATE OF : 1935 REASON FOR VISIT: The patient is a resident of [facility]. This is a skilled visit for pelvic fracture, subsequent encounter and other medical concerns. Upon entering the room found the patient calm, alert, sitting in chair. The patient does not appear to be in distress or discomfort. The patient is pleasantly confused, appears to be in good spirits and smiling. The patient states she does have right posterior hip pain and does have right hip pain when she is up and walking. The patient states has been participating in therapy services. The patient states no paresthesia to the bilateral lower extremities. The patient states no pain at rest. The patient states pain medications do help with the pain. Currently states no cough, no shortness of breath. No fever, chills, or nausea. States she eats and drinks well. Denies bowel or bladder dysfunction. MEDICATIONS: Have been reviewed. PHYSICAL EXAM: Temp 97.3, blood pressure 126/72, pulse 68, respirations 17, pulse ox 98% on room air. Weight 92.6 pounds. Respiratory: Respirations are easy and unlabored with patient at rest. Lung sounds are clear. Heart: Heart rate and rhythm regular. Abdomen: Soft, nontender with palpation. Bowel sounds present x4. Extremities: Not edematous. Musculoskeletal: The patient does move bilateral lower extremities without difficulty and no paresthesias stated. Pedal pulses palpable. IMPRESSION AND PLAN: 1. Fracture of the right pubis, subsequent encounter with routine healing. The patient will continue with therapy services. It is encouraged patient to use narcotic medication prior to therapy services to help tolerate the pain. The patient does have acetaminophen for lesser pain. 2. Gait instability and unsteadiness on feet. Again, patient will continue to follow with therapy services. 3. Urinary tract infection, on Cipro. 4. Anemia, iron deficiency. Currently on ferrous sulfate. 5. Generalized weakness. Again the patient will continue with therapy services. 6. Mild cognitive impairment. Continue supportive care. Continue monitoring patient and patient's safety. 7. Hypothyroidism, on supplement. The patient will have TSH, T4 drawn April 11, 2022. Labs reviewed April 07, 2022. Basic metabolic panel abnormals, creatinine 0.4, BUN creatinine ratio 28. All other labs within normal range. CBC with diff abnormals RBC 3.0, hemoglobin 9.4, hematocrit 28.0, monocytes 15.2, eosinophils 0.10. All other labs within normal range. DICTATED BY: SARAH Bliss/Bernice JOB# [id number] cc:[facility]09-16-2022 History of Present illness Narrative* Storm Russell APRN.[employer] METAL INSTALLER - 04/08/2022 12:00 AM EDT [facility] NAME: STANISLAW GARCIA NO.: [id number] DATE OF SERVICE: 04/08/2022 [facility] DATE OF : 1935 REASON FOR VISIT: The patient is a resident of [facility]. This is a skilled visit for pelvic fracture, subsequent encounter and other medical concerns. Upon entering the room found the patient calm, alert, sitting in chair. The patient does not appear to be in distress or discomfort. The patient is pleasantly confused, appears to be in good spirits and smiling. The patient states shedoes have right posterior hip pain and does have right hip pain when she is up and walking. The patient states has been participating in therapy services. The patient states no paresthesia to the bilateral lower extremities. The patient states no pain at rest. The patient states pain medications dohelp with the pain. Currently states no cough, no shortness of breath. No fever, chills, or nausea.States she eats and drinks well. Denies bowel or bladder dysfunction. MEDICATIONS: Have been reviewed. PHYSICAL EXAM: Temp 97.3, blood pressure 126/72, pulse 68, respirations 17, pulse ox 98% on room air. Weight 92.6 pounds. Respiratory: Respirations are easy and unlabored with patient at rest. Lung sounds are clear. Heart: Heart rate and rhythm regular. Abdomen: Soft, nontender with palpation. Bowel sounds present x4. Extremities: Not edematous. Musculoskeletal: The patient does move bilateral lower extremities without difficulty and no paresthesias stated. Pedal pulses palpable. IMPRESSION AND PLAN: 1. Fracture of the right pubis, subsequent encounter with routine healing. The patient will continue with therapy services. It is encouraged patient to use narcotic medication prior to therapy services to help tolerate the pain. The patient does have acetaminophen for lesser pain. 2. Gait instability and unsteadiness on feet. Again, patient will continue to follow with therapy services. 3. Urinary tract infection, on Cipro. 4. Anemia, iron deficiency. Currently on ferrous sulfate. 5. Generalized weakness. Again the patient will continue with therapy services. 6. Mild cognitive impairment. Continue supportive care. Continue monitoring patient and patient's safety. 7. Hypothyroidism, on supplement. The patient will have TSH, T4 drawn April 11, 2022. Labs reviewed April 07, 2022. Basic metabolic panel abnormals, creatinine 0.4, BUN creatinine ratio 28. All other labs within normal range. CBC with diff abnormals RBC 3.0, hemoglobin 9.4, hematocrit 28.0, monocytes 15.2, eosinophils 0.10. All other labs within normal range. DICTATED BY: SARAH Bliss JOB# [id number] cc:[facility]22 NoteHNO ID: [id number] Author: Debra Vásquez Service: ? Author Type: Physician Type: Progress Notes Filed: 04/06/2022 5:49 PM Note Text: [facility] NAME: STANISLAW GARCIA NO.: [id number] DATE OF SERVICE: 04/05/2022 [facility] DATE OF : 1935 NEW PATIENT HISTORY AND PHYSICAL HISTORY OF PRESENT ILLNESS: Patient is an 86-year-old female, who is admitted to us from [facility] with a diagnoses of acute nondisplaced fracture of the right superior and inferior pubic rami secondary to accidental mechanical fall, history of multiple thoracic compression fractures, lumbar degenerative disc disease, acute urinary tract infection, cervical degenerative disc disease, iron deficiency anemia, hypothyroidism and generalized weakness. The patient initially presented to the hospital after experiencing an accidental mechanical fall when she apparently tripped over her recliner. No reports of head trauma or loss of consciousness. Evaluation in the hospital did reveal a minimally displaced right superior and inferior pubic rami fractures, also mention made of multiple thoracic compression fractures though unclear whether these are old or acute. She was treated for an acute urinary tract infection. Her condition was stabilized and she is now admitted to our facility for continued therapy. REVIEW OF SYSTEMS: She is currently sitting up in bed. She is alert and responsive. She is somewhat a vague and poor historian. She guessed at the month as well as year. She could not tell me her current location though she knew that she was somewhere is [place]. She is aware of having had a fall. She does complain of some hip and pelvic pain. She claims to be fairly good health. She has had no change in her vision or hearing or actual syncope. She denies being short of breath. No documented history of COPD, asthma, bronchitis or recent pneumonia. She denies COVID infection and claims to be vaccinated. She is not aware of any heart problems. No chest pain, angina, palpitations, palpitations, previous heart attacks, heart surgery or pacemakers. No reports of hypertension. Her appetite has been poor to fair. No bleeding ulcers, hepatitis or melena. No prior strokes or seizures, diabetes mellitus, bleeding problems or blood clots. She does have hypothyroidism. FAMILY HISTORY: Significant for diabetes as well as heart disease. SOCIAL/FUNCTIONAL HISTORY: She does not smoke or abuse alcohol. She claims to be living by herself. MEDICATIONS: Calcium citrate with vitamin D 2 tablets daily, Cipro 500 mg b.i.d. for 7 days, ferrous sulfate 325 mg daily, oxycodone/acetaminophen p.r.n. ALLERGIES: No known drug allergies. EXAMINATION: She is currently afebrile, her vital signs stable. She is in no distress. She appears chronically ill. HEENT: Extraocular movements intact. Sclerae nonicteric. Ears intact. Lungs are clear. Heart: Regular. Abdomen: Soft, nontender. Bowel sounds present. Extremities: No edema. Skin is warm and dry. She does have generalized weakness. IMPRESSION: 1. Acute right superior and inferior pubic rami fractures secondary to accidental mechanical fall-we will continue with current conservative management. Fall precautions are present. She will be receiving physical therapy for gait training. Monitor symptoms and make adjustments as needed. 2. Acute urinary tract infection-patient will complete her course of antibiotic therapy. Monitor urinary symptoms closely. 3. Iron deficiency anemia-continue with current iron supplement. 4. Function assessment-she does have generalized weakness. She will be receiving rehab services for overall strengthening and condition. She may have some mild cognitive impairment. We will continue to monitor this closely. Overall condition and prognosis is somewhat guarded. We will obtain follow up labs including CBC and BMP. She will be returning home upon completion of her therapy. She does have hypothyroidism listed though she currently is not receiving any thyroid supplement. She apparently did have thyroid studies performed in the hospital. DICTATED BY: MD ROCHELLE Silverio/Bernice JOB# [id number] cc:[facility]09-13-2022 History of Present illness Narrative* Debra Vásquez - 04/05/2022 12:00 AM EDT [facility] NAME: STANISLAW GARCIA NO.: [id number] DATE OF SERVICE: 04/05/2022 [facility] DATE OF : 1935 NEW PATIENT HISTORY AND PHYSICAL HISTORY OF PRESENT ILLNESS: Patient is an 86-year-old female, who is admitted to us from [facility] with a diagnoses of acute nondisplaced fracture of the right superior and inferior pubic rami secondary to accidental mechanical fall, history of multiple thoracic compression fractures, lumbar degenerative disc disease, acute urinary tract infection, cervical degenerative disc disease, iron deficiency anemia, hypothyroidism and generalized weakness. The patient initially presented to the hospital after experiencing an accidental mechanical fall when she apparently tripped over her recliner. No reports of head trauma or loss of consciousness. Evaluation in the hospital did reveal a minimally displaced right superior and inferior pubic rami fractures, also mention made of multiple thoracic compression fractures though unclear whether these are old or acute. She was treated for an acute urinary tract infection. Her condition was stabilized and she is now admitted to our facility for continued therapy. REVIEW OF SYSTEMS: She is currently sitting up in bed. She is alert and responsive. She is somewhata vague and poor historian. She guessed at the month as well as year. She could not tell me her current location though she knew that she was somewhere is [place]. She is aware of having had a fall. She does complain of some hip and pelvic pain. She claims to be fairly good health. She has had no change in her vision or hearing or actual syncope. She denies being short of breath. No documented history of COPD, asthma, bronchitis or recent pneumonia. She denies COVID infection and claims to be vaccinated. She is not aware of any heart problems. No chest pain, angina, palpitations, palpitations, previous heart attacks, heart surgery or pacemakers. No reports of hypertension. Her appetite has been poor to fair. No bleeding ulcers, hepatitis or melena. No prior strokes or seizures, diabetes mellitus, bleeding problems or blood clots. She does have hypothyroidism. FAMILY HISTORY: Significant for diabetes as well as heart disease. SOCIAL/FUNCTIONAL HISTORY: She does not smoke or abuse alcohol. She claims to be living by herself. MEDICATIONS: Calcium citrate with vitamin D 2 tablets daily, Cipro 500 mg b.i.d. for 7 days, ferrous sulfate 325 mg daily, oxycodone/acetaminophen p.r.n. ALLERGIES: No known drug allergies. EXAMINATION: She is currently afebrile, her vital signs stable. She is in no distress. She appears chronically ill. HEENT: Extraocular movements intact. Sclerae nonicteric. Ears intact. Lungs are clear. Heart: Regular. Abdomen: Soft, nontender. Bowel sounds present. Extremities: No edema. Skin is warm and dry. She does have generalized weakness. IMPRESSION: 1. Acute right superior and inferior pubic rami fractures secondary to accidental mechanical fall-we will continue with current conservative management. Fall precautions are present. She will be receiving physical therapy for gait training. Monitor symptoms and make adjustments as needed. 2. Acute urinary tract infection-patient will complete her course of antibiotic therapy. Monitor urinary symptoms closely. 3. Iron deficiency anemia-continue with current iron supplement. 4. Functionassessment-she does have generalized weakness. She will be receiving rehab services for overall strengthening and condition. She may have some mild cognitive impairment. We will continue to monitor this closely. Overall condition and prognosis is somewhat guarded. We will obtain follow up labs including CBC and BMP. She will be returning home upon completion of her therapy. She does have hypothyroidism listed though she currently is not receiving any thyroid supplement. She apparently did have t hyroid studies performed in the hospital. DICTATED BY: MD ROCHELLE Silverio/Bernice JOB# [id number] cc:[facility] Evaluation note* Encounter Date Diagnosis Assessment Notes Treatment Notes Treatment Clinical Notes November, Unspecified fall, initial encounter (ICD-10 - W19.XXXA) November, Right hip pain (ICD-10 - M25.551) It is recommended that she go to the emergency room of your choice for further evaluation of your head injury and hip pain after falling at home. Patient and niece verbalized understanding and agreement with above plan, states she will go to [facility] for further evaluation. Patient states the pain is worsening with time and is unable to bear weight on the right leg. She lives in a split-level home and is concerned about using crutches at home. November, Unspecified place in unspecified non-institutional (private) residence as the place of occurrence of the external cause (ICD-10 - Y92.009) November, Injury of head, initial encounter (ICD-10 - S09.90XA) [employer] Other Evaluation note* Diagnosis Onset Date Resolution Status Fall acute Hip fracture, left [facility] Work Phone: Evaluation noteNo InformationNort Prelert Other History general Narrative - Reported* Type Description Date Surgical History CATARACT REMOVAL Surgical History CHOLECYSTECTOMY [employer] Other Advance Directives Documents on File Type Date Recorded 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 Advance Directive(s) 04/04/2016 12:27 PM Advance Directive Response Recorded Date/ Time Advance Directives No September 28 2:49am Summary Purpose Family History No Family History Records FoundNo Family History Records FoundNo Family History Records Found Chief Complaint and Reason for Visit Chief Complaint L femoral head fract ure Reason for Visit Fall Hip fracture, left Additional Source Comments REASON FOR VISIT (unrecogniz ed section and content) RIGHT LEG PAIN, S/P FALLdisk Source Comments (unrecognize d section and content) In the event this informatio n is protected by the Federal Confidentiality of Alcohol and Drug Abuse Patient Records regulations: The Federal rules restrict any use of the information to criminally investigate or prosecute any alcohol or drug abuse patient.[facility] the event this information is protected by the Federal Confidentiality of Alcohol and Drug Abuse Patient Records regulations: The Federal rules restrict any use of the information to criminally investigate or prosecute any alcohol or drug abuse patient.[facility] Hospital[facility] the event this information is protected by the Federal Confidentiality of Alcohol and Drug Abuse Patient Records regulations: The Federal rules restrict any use of the information to criminally investigate or prosecute any alcohol or drug abuse patient.[facility] Care Teams (unrecognized sec tion and content) [employer] Relationship Specialty Start Date End Date Richard He PCP - General Family Practice 05/08/14 [employer] Relationship Specialty Start Date End Date Richard He PCP - General Family Medicine 05/08/14 Team Status: Active Member Role Status Dates AshleyJULES Navarro Primary Care Provider Active Team Status: Inactive Member Role Status Dates Ashley Olvera NP-Mino Primary Care Provider Active Juliet Green MD Admit Provider Active Leighton Valente MD Other Provider Active Galen Escobar MD Other Provider Active Lilian Van MD Other Provider Active Silvestre Saunders DO Other Provider Active Bulmaro Moses II, MD Other Provider Active Yani Cyr MD Attending Provider Active INFORMATION SOURCE (unrecogn ized section and content) DATE CREATED AUTHOR 04/25/2022 [facility] DATE CREATED AUTHOR AUTHOR'S ORGANIZ ATION 10/17/2022 [facility] DATE CREATED AUTHOR AUTHOR'S ORGANIZ ATION 10/17/2022 [facility] FOR RECORDS PERTAINING TO PATIENTS WHO ARE OR HAVE BEEN ENROLLED IN A CHEMICAL DEPENDENCY/SUBSTANCEABUSE PROGRAM, SOME INFORMATION MAY BE OMITTED. This clinical summary was aggregated from multiple sources. Caution should be exercised in using it in the provision of clinical care. This summary normalizes information from multiple sources, and as a consequence, information in this document may materially change the coding, format and clinical context of patient data. In addition, data may be omitted in some cases. CLINICAL DECISIONS SHOULD BE BASED ON THE PRIMARY CLINICAL RECORDS. [employer] provides no warranty or guarantee of the accuracy or completeness of information in this document.
[2023-09-22 18:11] VITALS: BP 176/71; PULSE 64; RESP 15; TEMP 36.9; O2SAT 99; BMI 20.7
--- NOTE | 2023-09-22 19:12 | ED.GENADUL1 ---
Documented by User: Lucille Carrillo 09/22/23 19:17 HPI - General Adult General Chief complaint: Skin/Abscess/Foreign Body Stated complaint: RASH Time Seen by Provider: 09/22/23 18:38 Source: patient and family Mode of arrival: walk-in Limitations: no limitations History of Present Illness HPI narrative: 88 year old female presents here with chief complaint of a rash to bilateral lower extremities. Round circular dry rash is noted. Patient denies any new medications. She does stay at a local residential. She was on a Medrol Dosepak previously and it did help her symptoms. She stopped the Medrol Dosepak 2 weeks ago and symptoms have returned. Patient does scratch the areas routinely. Rash appears to be bilateral lower extremities only. Mucous membranes are spared. Related Data Home Medications Medication Instructions Recorded Confirmed acetaminophen 325 mg tablet 325 mg PO Q6H PRN fever or pain 04/10/23 07/28/23 (Tylenol) aspirin 325 mg capsule 325 mg PO DAILY 04/10/23 07/28/23 calcium carbonate 600 mg-vitamin 1 tab PO DAILY 04/10/23 07/28/23 D3 20 mcg (800 unit) chewable tablet (Caltrate 600 plus D) cholecalciferol (vitamin D3) 50 50 mcg PO DAILY 04/10/23 07/28/23 mcg (2,000 unit) capsule ferrous sulfate 325 mg (65 mg 325 mg PO DAILY 04/10/23 07/28/23 iron) tablet,delayed release sertraline 25 mg tablet 25 mg PO Q24H 04/10/23 07/28/23 Previous Rx's Medication Instructions Recorded clobetasol 0.05 % topical cream 1 applic topical DAILY 2 weeks #60 09/22/23 grams Allergies Allergy/AdvReac Type Severity Reaction Status Date / Time No Known Drug Allergies Allergy Verified 04/10/23 04:41 Review of Systems ROS Narrative All Systems are negative except as noted/marked. Exam Narrative Exam Narrative: Nurses note and vital signs reviewed and patient is not hypoxic. General: The patient appears well and in no apparent distress. Patient is resting comfortably on cart. Skin: Warm, dry, no pallor noted. pruitc, dry circular rash to bilateral lower extremities Head: Normocephalic, atraumatic Eye: Normal conjunctiva, no drainage, EOMI. PERRL Ears, Nose, Mouth, and Throat: oral mucosa is moist. Nares patent. Mouth without vesicles. Ear canals patent. Tm's without Erythema Cardiovascular: Regular Rate and Rhythm Respiratory: Patient is in no distress, no accessory muscle use, lungs are clear to auscultation, no wheezing, rales or rhonchi Back: non-tender, no CVA tenderness bilaterally to percussion. Musculoskeletal: The patient has no evidence of calf tenderness, no pitting edema, symmetrical pulses noted bilaterally Neurological: A&O x4, normal speech Psychiatric: Cooperative Constitutional Vital Signs, click to edit/add: Last Vital Signs Temp 98.4 F 09/22/23 18:11 Pulse 64 09/22/23 18:11 Resp 15 09/22/23 18:11 BP 176/71 H 09/22/23 18:11 Pulse Ox 99 09/22/23 18:11 O2 Del Method Room Air 09/22/23 18:11 Course Vital Signs Vital signs: Vital Signs Temperature 98.4 F 09/22/23 18:11 Pulse Rate 64 09/22/23 18:11 Respiratory Rate 15 09/22/23 18:11 Blood Pressure 176/71 H 09/22/23 18:11 Pulse Oximetry 99 09/22/23 18:11 Oxygen Delivery Method Room Air 09/22/23 18:11 Temperature 98.4 F 09/22/23 18:11 Pulse Rate 64 09/22/23 18:11 Respiratory Rate 15 09/22/23 18:11 Blood Pressure 176/71 H 09/22/23 18:11 Pulse Oximetry 99 09/22/23 18:11 Oxygen Delivery Method Room Air 09/22/23 18:11 Medical Decision Making [facility] Narrative Medical decision making narrative: 88 year old female presents here with chief complaint of a rash to bilateral lower extremities. Round circular dry rash is noted. Patient denies any new medications. She does stay at a local residential. She was on a Medrol Dosepak previously and it did help her symptoms. She stopped the Medrol Dosepak 2 weeks ago and symptoms have returned. Patient does scratch the areas routinely. Rash appears to be bilateral lower extremities only. Mucous membranes are spared. Nonspecific rash consistent with dermatitis, keratitis. Patient be discharged home prescription of cortisone cream as well as another Medrol Dosepak. Patient courage to follow-up with practicing physician at the facility she is staying. Patient's family members at bedside will take her back to the residential. They agree with plan of care Differential Diagnosis Differential Diagnosis: rash, dermatitis Medical Records Medical records reviewed: Yes I reviewed the patient's medical records Discharge Plan Discharge Chief Complaint: Skin/Abscess/Foreign Body Clinical Impression: Rash and nonspecific skin eruption, Keratitis Patient Disposition: Home, Self-Care Time of Disposition Decision: 19:08 Condition: Good Prescriptions / Home Meds: New clobetasol 0.05 % cream 1 applic topical DAILY 14 Days Qty: 60 1RF No Action sertraline 25 mg tablet 25 mg PO Q24H ferrous sulfate 325 mg (65 mg iron) tablet,delayed release (DR/EC) 325 mg PO DAILY cholecalciferol (vitamin D3) 50 mcg (2,000 unit) capsule 50 mcg PO DAILY aspirin 325 mg capsule 325 mg PO DAILY Caltrate 600 plus D 600 mg-20 mcg (800 unit) tablet,chewable 1 tab PO DAILY acetaminophen [Tylenol] 325 mg tablet 325 mg PO Q6H PRN (Reason: fever or pain) Referrals: ASHLEY BONILLA [Primary Care Provider] - 1 week Discharge Date/Time: 09/22/23 19:18 Stand Alone Forms: Portal Instructions Documented by User: Srinath Gamez MD 09/22/23 19:43 HPI - General Adult General Chief complaint: Skin/Abscess/Foreign Body Stated complaint: RASH Time Seen by Provider: 09/22/23 18:38 Related Data Home Medications Medication Instructions Recorded Confirmed acetaminophen 325 mg tablet 325 mg PO Q6H PRN fever or pain 04/10/23 07/28/23 (Tylenol) aspirin 325 mg capsule 325 mg PO DAILY 04/10/23 07/28/23 calcium carbonate 600 mg-vitamin 1 tab PO DAILY 04/10/23 07/28/23 D3 20 mcg (800 unit) chewable tablet (Caltrate 600 plus D) cholecalciferol (vitamin D3) 50 50 mcg PO DAILY 04/10/23 07/28/23 mcg (2,000 unit) capsule ferrous sulfate 325 mg (65 mg 325 mg PO DAILY 04/10/23 07/28/23 iron) tablet,delayed release sertraline 25 mg tablet 25 mg PO Q24H 04/10/23 07/28/23 Previous Rx's Medication Instructions Recorded clobetasol 0.05 % topical cream 1 applic topical DAILY 2 weeks #60 09/22/23 grams Allergies Allergy/AdvReac Type Severity Reaction Status Date / Time No Known Drug Allergies Allergy Verified 04/10/23 04:41 Exam Constitutional Vital Signs, click to edit/add: Last Vital Signs Temp 98.4 F 09/22/23 18:11 Pulse 64 09/22/23 18:11 Resp 15 09/22/23 18:11 BP 176/71 H 09/22/23 18:11 Pulse Ox 99 09/22/23 18:11 O2 Del Method Room Air 09/22/23 18:11 Course Vital Signs Vital signs: Vital Signs Temperature 98.4 F 09/22/23 18:11 Pulse Rate 64 09/22/23 18:11 Respiratory Rate 15 09/22/23 18:11 Blood Pressure 176/71 H 09/22/23 18:11 Pulse Oximetry 99 09/22/23 18:11 Oxygen Delivery Method Room Air 09/22/23 18:11 Temperature 98.4 F 09/22/23 18:11 Pulse Rate 64 09/22/23 18:11 Respiratory Rate 15 09/22/23 18:11 Blood Pressure 176/71 H 09/22/23 18:11 Pulse Oximetry 99 09/22/23 18:11 Oxygen Delivery Method Room Air 09/22/23 18:11 Medical Decision Making [facility] Narrative Medical decision making narrative: 88 year old female presents here with chief complaint of a rash to bilateral lower extremities. Round circular dry rash is noted. Patient denies any new medications. She does stay at a local residential. She was on a Medrol Dosepak previously and it did help her symptoms. She stopped the Medrol Dosepak 2 weeks ago and symptoms have returned. Patient does scratch the areas routinely. Rash appears to be bilateral lower extremities only. Mucous membranes are spared. Nonspecific rash consistent with dermatitis, keratitis. Patient be discharged home prescription of cortisone cream as well as another Medrol Dosepak. Patient courage to follow-up with practicing physician at the facility she is staying. Patient's family members at bedside will take her back to the residential. They agree with plan of care I, Dr Gamez, have reviewed the above progress note and course of action in the ER; agree with the above. I have gone over history and physical, and discussed disposition and treatment plan with the patient. Discharge Plan Discharge Chief Complaint: Skin/Abscess/Foreign Body Clinical Impression: Rash and nonspecific skin eruption, Keratitis Patient Disposition: Home, Self-Care Time of Disposition Decision: 19:08 Condition: Good Prescriptions / Home Meds: New clobetasol 0.05 % cream 1 applic topical DAILY 14 Days Qty: 60 1RF No Action sertraline 25 mg tablet 25 mg PO Q24H ferrous sulfate 325 mg (65 mg iron) tablet,delayed release (DR/EC) 325 mg PO DAILY cholecalciferol (vitamin D3) 50 mcg (2,000 unit) capsule 50 mcg PO DAILY aspirin 325 mg capsule 325 mg PO DAILY Caltrate 600 plus D 600 mg-20 mcg (800 unit) tablet,chewable 1 tab PO DAILY acetaminophen [Tylenol] 325 mg tablet 325 mg PO Q6H PRN (Reason: fever or pain) Referrals: ASHLEY BONILLA [Primary Care Provider] - 1 week Discharge Date/Time: 09/22/23 19:18 Stand Alone Forms: Portal Instructions
== END 2023-09-22 19:18 | disposition home or self-care (01) ==
PROVIDERS: Emergency Provider Emergency Medicine; PCP Nurse Practitioner
DX: R21 Rash and other nonspecific skin eruption (principal); H16.9 Unspecified keratitis; Z79.82 Long term (current) use of aspirin; Z79.899 Other long term (current) drug therapy
CPT/HCPCS: 99283

== ENCOUNTER 2023-09-30 21:55 | Observation (INO) | payer MEDICARE, SELFPAY ==
[2023-09-30 22:04] VITALS: BP 200/90; PULSE 64; RESP 20; TEMP 36.8; O2SAT 99; BMI 24.1
--- OUTSIDE RECORDS SUMMARY | 2023-09-30 22:07 | XMS_ITS | CCD ---
Author Name Unknown Address [id number] [place] [address] Organization [facility] Care Team Providers Care Business Controller Name Role Phone Rylie Galvan Unavailable Richard He Primary Care Provider UnavailRichard Loomis Primary Care Provider UnavailRichard Loomis E Primary Care Provider UnavailJULES Chaves Primary Care Provider MD Juliet Green Admit Provider MD Leighton Valente Other Provider MD Galen Escobar Other Provider MD Lilian Van Other Provider DO Silvestre Saunders Other Provider MD Bulmaro Moses II Other Provider [phone] MD Yani Cyr Attending Provider ADELE KATZ [...] Consulting Unavailable DIAB ., JACIEL Consulting Unavailable ARVEN RENNER Consulting Unavailable MADELEINE HEREDIA Consulting Unavailable RAYMUNDO Nath, DR DE GUZMAN Attending Unavailable ASHLEY OLVERA Primary Care Unavailable RAYMUNDO Nath, DR DE GUZMAN Consulting Unavailable RAYMUNDO Nath, DR DE GUZMAN Admitting Unavailable JANETTE, DR MARISSA Orosco Consulting Unavailnico PENA, DR TAYLOR Grimes Consulting Unavailable BRIGHT, DR LENI Steele Consulting Unavailable ERICKA ., FAHAD HAMILTON Consulting UnavailAVEL Maciel Consulting Unavailable ASHLEY OLVERA Primary Care Unavailable JACKIE, DR ONEIL Consulting Unavailable JACKIE, DR ONEIL Admitting Unavailable JACKIE, DR ONEIL Attending Unavailable Leighton Valente Consulting Unavailable Juliet Green Admitting Unavailable Yani Cyr Attending Unavailable Ashley Olvera Primary Care Unavailable Galen Escobar Consulting Unavailable Lilian Van Consulting Unavailable Silvestre Saunders Consulting Unavailable Bulmaro Moses II Consulting Unavailnico Valente, Leighton Unavailable ASHLEY OLVERA Attending Unavailable ASHLEY OLVERA Referring Unavailable ITA OLVERAE Shruthi Primary Care Unavailable ASLHEY OLVERA Attending Unavailable ASHLEY OLVERA Referring Unavailable CLIFTON OLVERAERIE Shruthi Primary Care Unavailable Olvera INSPECTOR EYEGL[employer] FRAMES-TRANSFORMER MECHANIC, Ashley Shruthi Primary Care Provid er Allergies Allergy Classification Reported Allergen(s) Allergy Type Date of Onset Reaction(s) Facility (2 sources) TETANUS VACCINES AND TOXOID; Translations: [TETANUS VACCINES AND TOXOID] Propensity to adverse reactions to drug (disorder) 7 Rash [facility] Medications Current Medications Medication Drug Class(es) Dates [...] as needed. aspirin 325 mg oral tablet (2 sources) Platelet Aggregation Inhibitor, Nonsteroidal Anti-inflammatory Drug Start: 10-03-2022 take 325 mg by mouth once daily Aspirin Active 325 MG PO Daily 0 October 03, 2022 12:00am take 1 tablet by mouth in the mo rning aspirin 81 mg Take 1 tablet (81 mg total) by mouth in the morning. 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 30 tablet 1 03/10/2023 Active calcium carbonate 1500 mg / cholecalciferol 800 unt chewable tablet (1 source) Vitamin D Start: 10-31-2022 calcium carbonate-vitamin D3 (CALTRATE 600 PLUS D) 600 mg (1,500 mg)-800 units tablet,chewable Indications: Age-related osteoporosis with current pathological fracture with routine healing, subsequent encounter Chew 1 tablet and swallow in the morning and 1 tablet in the evening. Chew with meals. 60 tablet 6 10/31/2022 Active Calcium Citrate-Vitamin D3 (1 source) Start: 09-28-2022 take 1 tablet by mouth once daily Calcium Citrate-Vitamin D3 Active 1 TAB PO Daily September 28, 2022 1:00am Citracal +D3 250-107-500 MG-MG-UNIT (2 sources) Citracal +D3 250-107-500 MG-MG-UNIT Orally Active clobetasol propionate 0.5 mg/ml topical cream (1 source) Corticosteroid Start: 09-22-2023 clobetasoL (TEMOVATE) 0.05 % cream apply to affected area once daily for 2 weeks 0 09/22/2023 Active ferrous sulfate 325 mg delayed release oral tablet (4 sources) Start: 07-13-2023 take 1 tablet by mouth in the morning, then take 1 tablet by mouth at mealtime ferrous sulfate 325 (65 FE) mg EC tablet Indications: Other iron deficiency anemia Take 1 tablet (325 mg total) by mouth in the morning and 1 tablet (325 mg total) in the evening. Take with meals. 60 tablet 11 07/13/2023 Active Start: 09-28-2022 take 325 mg by mouth once jeanine y Ferrous Sulfate Active 325 MG PO Daily September 28, 2022 1:00am take 1 tablet by mouth once jeanine y Ferrous Sulfate 325 (65 Fe) MG 1 tablet Orally Once a day Active take 1 tablet by senia every twenty-four hours Ferrous Sulfate 325 (65 Fe) MG 1 tablet Orally Once a day Active lutein 20 mg oral tablet (5 sources) take 1 capsule by mo [facility] once daily Lutein 20 MG 1 capsule with a meal Orally Once a day Active LUTEIN ORAL Take by mouth. 0 Active take 1 capsule by mo [facility] every twenty-four hours Lutein 20 MG 1 capsule with a meal Orall y Once a day Active Comment on above: Take by mouth. 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 30 tablet 11 07/13/2023 Active vitamin b12 1 mg sublingual tablet (1 source) Vitamin B12 Start: 2021 take 1 tablet under the tongue in the morning cyanocobalamin (VITAMIN B12) 1,000 mcg tablet, sublingual Indications: Deficiency of vitamin B12 Place 1 tablet (1,000 mcg total) under the tongue in the morning. 90 each 2 11/15/2021 Active Completed/Discontinued Medications Medication Drug Class(es) Dates Sig (Normalized) Sig (Original) alendronic acid 35 mg oral tablet (1 source) Bisphosphonate Start: 07-13-2023 End: 09-28-2023 take 1 tablet by mouth in the morning alendronate (FOSAMAX) 35 mg tablet Indications: History of healed osteoporosis fracture Take 1 tablet (35 mg total) by mouth every 7 days. In a.m. with water on empty stomach, nothing else by mouth and remain upright for 30min 4 tablet 11 07/13/2023 09/28/2023 Discontinued (Therapy completed) ibandronic acid 150 mg oral tablet (5 [...] Comment on above: Take 1 capsule by mo [facility] twice daily. Take 1 capsule with [...] Comment on above: Take 1 tablet by [facility] every 4 hours as needed. simvastatin 20 mg oral tablet (5 sources) HMG-CoA Reductase Inhibitor Start: 05-16-2014 simvastatin (ZOCOR) 20 mg tablet Suprep Bowel Prep - (2 sources) Start: 01-27-2016 Suprep Bowel Prep - 1 Orally Daily for 1 day(s) Jan, Not-Taking Problems Active Problems Problem Classification Problem Date Documented Date Episodic/Chronic Cancer of colon (8 sources) Malignant tumor of colon; Translations: [Malignant neoplasm of colon, unspecified] Onset: 04-04-2016 04-04-2016 Chronic Cancer of colon (1 source) History of malignant neoplasm of colon; Translations: [Personal history of other malignant neoplasm of large intestine] 05-12-2020 Episodic Deficiency and other anemia (2 sources) Iron deficiency anemia; Translations: [Iron deficiency anemia, unspecified] Episodic Deficiency and other anemia (4 sources) Anemia, unspecified; Translations: [ANEMIA UNSPECIFIED] Onset: 10-14-2022 Episodic Deficiency and other anemia (1 source) Other iron deficiency anemias; Translations: [Other iron deficiency anemias] Onset: 07-13-2023 Episodic Delirium, dementia, and amnestic and other cognitive disorders (4 sources) Alzheimer's disease with late onset; Translations: [Senile dementia] Onset: 09-30-2022 09-27-2023 Chronic Diverticulosis and diverticulitis (2 sources) Diverticular disease; Translations: [Diverticulosis of intestine, part unspecified, without perforation or abscess without bleeding] Chronic E Codes: Fall (6 sources) Unspecified fall, initial encounter; Translations: [Fall] Onset: 12-13-2021 Resolved: 12-13-2021 Episodic Fluid and electrolyte disorders (2 sources) Hypokalemia; Translations: [Hypo-osmolality and hyponatremia] Onset: 05-12-2022 Episodic Mood disorders (3 sources) Major depressive disorder, single episode, moderate; Translations: [Moderate major depression, single episode] Onset: 07-13-2023 09-27-2023 Chronic Nutritional deficiencies (1 source) Vitamin D deficiency; Translations: [Vitamin D deficiency, unspecified] Onset: 08-12-2019 08-12-2019 Chronic Osteoporosis (1 source) Osteoporosis; Translations: [Age-related osteoporosis without current pathological fracture] 06-07-2017 Chronic Other acquired deformities (1 source) Kyphosis of thoracic spine; Translations: [Unspecified kyphosis, thoracic region] 10-10-2022 Chronic Other aftercare (1 source) 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; Translations: [OTH HALF-WAY CURRENT DRUG THERAPY] Onset: 09-29-2022 Episodic Other nervous system disorders (1 source) Cognitive deficit in communication skills; Translations: [Cognitive communication deficit] Onset: 10-03-2022 01-03-2023 Chronic Other non-traumatic joint disorders (3 sources) Pain in left hip; Translations: [PAIN IN LEFT HIP] Onset: 09-27-2022 Episodic Other screening for suspected conditions (not mental disorders or infectious disease) (1 source) Encounter for screening for cardiovascular disorders; Translations: [Encounter for screening for cardiovascular disorders] Onset: 07-13-2023 Episodic Other skin disorders (1 source) Rash and other nonspecific skin eruption; Translations: [Rash and other nonspecific skin eruption] Onset: 09-27-2023 Episodic Other skin disorders (1 source) Eruption; Translations: [Rash and other nonspecific skin eruption] 09-27-2023 Episodic Pathological fracture (1 source) Personal history of (healed) osteoporosis fracture; Translations: [Personal history of (healed) osteoporosis fracture] Onset: 07-13-2023 Episodic Retinal detachments; defects; vascular occlusion; and retinopathy (1 source) Degenerative disorder of macula ; Translations: [Unspecified macular degeneration] 01-05-2017 Chronic Spondylosis; intervertebral disc disorders; other back problems (2 sources) Other intervertebral disc degeneration, lumbar region; Translations: [Other cervical disc degeneration, unspecified cervical region] Onset: 09-29-2022 Chronic Thyroid disorders (2 sources) Hypothyroidism, unspecified; Translations: [Thyroid nodule] Onset: 06-01-2019 06-01-2019 Chronic Unclassified (1 source) CONTACT W/AND (SUSP) EXPOS COVID-19; Translations: [CONTACT W/AND (SUSP) EXPOS COVID-19] Onset: 05-12-2022 Unclassified (1 source) Displaced intertrochanteric fracture of left femur, initial encounter for closed fracture; Translations: [Displaced intertrochanteric fracture of left femur, initial encounter for closed fracture] Onset: 09-28-2022 Unclassified (1 source) Dementia in other diseases classified elsewhere, mild, with other behavioral disturbance; Translations: [Dementia in other diseases classified elsewhere, mild, with other behavioral disturbance] Onset: 07-13-2023 Unclassified (1 source) Annual Exam Onset: 07-13-2023 Past or Other Problems Problem Classification Problem [...] external cause Onset: 12-13-2021 Resolved: 12-13-2021 Episodic Fracture of neck of femur (hip) (5 sources) Fracture of bone of hip region; Translations: [Fracture of unspecified part of neck of left femur, initial encounter for closed fracture] Onset: 09-28-2022 09-28-2022 Episodic Mood disorders (1 source) Mood disorders Onset: 09-27-2023 09-27-2023 Nonspecific chest pain (1 source) Other chest pain; Translations: [OTHER CHEST PAIN] Onset: 05-12-2022 Episodic Nutritional deficiencies (2 sources) Deficiency of other specified B group vitamins; Translations: [Cobalamin deficiency] Onset: 05-07-2018 05-07-2018 Episodic Other fractures (1 source) Unspecified fracture [...] HISTORY OF NICOTINE DEPEND] Onset: 12-14-2021 Episodic Spondylosis; intervertebral disc disorders; other back problems (1 source) Neck pain; Translations: [Cervicalgia] Onset: 02-20-2023 02-20-2023 Episodic Superficial injury; contusion (1 source) Contusion of right hip, initial encounter; Translations: [CONTUSION RIGHT HIP INITIAL ENC] Onset: 12-14-2021 Episodic Unclassified (1 source) Onset: 11-30-2022 11-30-2022 Urinary tract infections (1 source) Urinary tract infection, site not specified; Translations: [UTI SITE NOT SPECIFIED] Onset: 05-12-2022 Episodic Results Test Name Value Interpretation Reference Range Facility CBC AUTO DIFFon 10-14-2022 BASO # 0.0 103/ul Normal 0.0-0.1 [facility] Comment on above: Performed By: #### C MP, CMADM #### [facility] [address] [address] [address] Nidhi Dawn Basophils/100 WBC (Bld) 0.3 % Normal 0.2-2.0 [facility] Comment on above: Performed By: #### C MP, CMADM #### [facility] [address] [address] [address] Nidhi Dawn EO # 0.1 103/ul Normal 0.0-0.7 [facility] Comment on above: Performed By: #### C DONA, CMADM #### [facility] [address] [address] [address] Nidhi Dawn Eosinophils/100 WBC (Bld) 1.2 % Normal 0.9-7.0 [facility] Comment on above: Performed By: #### C DONA, CMADM #### [facility] [address] [address] [address] Nidhi Dawn Erythrocyte distribution width (RBC) [Ratio] 15.7 % Critically high 11.0-15.0 [facility] Comment on above: Performed By: #### C MP, CMADM #### [facility] [address] [address] [address] Nidhi Dawn Hematocrit (Bld) [Volume fraction] 28.5 % Critically low 36.0-48.0 [facility] Comment on above: Performed By: #### C MP, CMADM #### [facility] [address] [address] [address] Nidhi Dawn Hemoglobin (Bld) [Mass/Vol] 8.9 g/dL Critically low 12.0-16.0 [facility] Comment on above: Performed By: #### C DONA, CMADM #### [facility] [address] [place] [address] Dr. Nidhi Dawn IG # 0.04 10e3/ul Critically high 0.00-0.03 [facility] Comment on above: Performed By: #### C DONA, CMADM #### [facility] [address] [place] [address] Dr. Nidhi Dawn IG % 0.7 % Critically high 0.0-0.5 [facility] Comment on above: Performed By: #### C DONA, CMADM #### [facility] [address] [place] [address] Dr. Nidhi Dawn LYMPH # 0.9 103/ul Critically low 1.2-3.8 [facility] Comment on above: Performed By: #### C DONA CMADM #### [facility] [address] [place] [address] Dr. Nidhi Dawn Lymphocytes/100 WBC (Bld) 15.6 % Critically low 20.5-60.0 [facility] Comment on above: Performed By: #### C LEONCIO CARCAMODM #### [facility] [address] [place] [address] Dr. Nidhi Dawn MANUAL DIFF REQ NO Normal [facility] Comment on above: Performed By: #### C DONA, CMADM #### [facility] [address] [place] [address] Dr. Nidhi Dawn MCH (RBC) [Entitic mass] 30.8 pg Normal 26.7-34.0 [facility] Comment on above: Performed By: #### C DONA, CMADM #### [facility] [address] [place] [address] Dr. Nidhi Dawn MCHC (RBC) [Mass/Vol] 31.2 g/dL Normal 29.9-35.2 [facility] Comment on above: Performed By: #### C DONA, CMADM #### [facility] [address] [place] [address] Dr. Nidhi Dawn MCV (RBC) [Entitic vol] 98.6 fL Normal 81.0-99.0 [facility] Comment on above: Performed By: #### C DONA, CMADM #### [facility] [address] [place] [address] Dr. Nidhi Dawn MONO # 0.7 103/ul Normal 0.3-0.8 [facility] Comment on above: Performed By: #### C DONA, CMADM #### [facility] [address] [place] [address] Dr. Nidhi Dawn Monocytes/100 WBC (Bld) 11.1 % Normal 1.7-12.0 [facility] Comment on above: Performed By: #### C DONA, CMADM #### [facility] [address] [place] [address] Dr. Nidhi Dawn NEUT # 4.2 103/ul Normal 1.4-6.5 [facility] Comment on above: Performed By: #### C DONA, LEONCIODM #### [facility] [address] [place] [address] Dr. Nidhi Dawn Neutrophils/100 WBC (Bld) 71.1 % Normal 43.0-75.0 [facility] Comment on above: Performed By: #### C DONA, LEONCIODM #### [facility] [address] [place] [address] Dr. Nidhi Dawn Platelet mean volume (Bld) [Entitic vol] 8.5 fL Critically low 9.5-13.5 [facility] Comment on above: Performed By: #### C DONA, CMADM #### [facility] [address] [place] [address] Dr. Nidhi Dawn PLT 614 103/ul Critically high 150-450 [facility] Comment on above: Performed By: #### C DONA, CMADM #### [facility] [address] [place] [address] Dr. Nidhi Dawn RBC 2.89 106/ul Critically low 4.20-5.40 [facility] Comment on above: Performed By: #### C DONA, CMADM #### [facility] [address] [address] [address] Nidhi Dawn WBC 5.8 103/ul Normal 4.0-11.0 [facility] Comment on above: Performed By: #### C MP, CMADM #### [facility] [address] [address] [address] Nidhi Dawn Basic Metabolic Panelon 09-21 Anion gap [Moles/Vol] 8.2 mmol/L Normal 6.0-15.0 [facility] Comment on above: Performed By: #### F ER, FE and TIBC #### [facility] [address] [place] [address] [place] Calcium [Mass/Vol] 9.1 mg/dL Normal 8.6-10.3 [facility] Comment on above: Performed By: #### F ER, FE and TIBC #### [facility] [address] [place] [address] [place] Chloride [Moles/Vol] 102 mmol/L Normal 98-107 [facility] Comment on above: Performed By: #### F ER, FE and TIBC #### [facility] [address] [place] [address] [place] CO2 [Moles/Vol] 30.5 mmol/L Normal 21.0-31.0 [facility] Comment on above: Performed By: #### F ER, FE and TIBC #### [facility] [address] [place] [address] [place] Creatinine [Mass/Vol] 0.35 mg/dL Low 0.60-1.20 [facility] Comment on above: Performed By: #### F ER, FE and TIBC #### [facility] [address] [place] [address] [place] Creatinine Clr Calc Pharmacy 35.59 Normal [facility] Comment on above: Result Comment: PERF ORMED BY: [place] [address] PATHOLOGIST PRESIDENTIAL [employer] CHIEF CLARICE OSWALD M.D. Performed By: #### F ER, FE and TIBC #### [facility] [address] [place] [address] [place] GFR/1.73 sq M.predicted MDRD (S/P/Bld) [Vol rate/Area] mL/min/{1.73_m2} Normal [facility] Comment on above: Performed By: #### F ER, FE and TIBC #### [facility] [address] Glucose [Mass/Vol] 104 mg/dL Normal 74-109 [facility] Comment on above: Result Comment: [facility] Glucose Reference Range is dependent on time and content of last meal. Glucose of more than 200 mg/dL in a nonstressed, ambulatory subject supports the diagnosis of Diabetes Mellitus. ADA recommended reference range Performed By: #### F ER, FE and TIBC #### [facility] [address] Potassium [Moles/Vol] 3.7 mmol/L Normal 3.5-5.1 [facility] Comment on above: Performed By: #### F ER, FE and TIBC #### [address] Sodium [Moles/Vol] 137 mmol/L Normal 136-145 [facility] Comment on above: Performed By: #### F ER, FE and TIBC #### [address] Urea nitrogen [Mass/Vol] 10 mg/dL Normal 7-25 [facility] Comment on above: Performed By: #### F ER, FE and TIBC #### [facility] [address] [place] [address] [place] Basophils Auto (Bld) [#/Vol] Ordered By: Yani Cyr on 10-03-2022 Basophils (Bld) [#/Vol] 0.0 10*3/uL 0.0-0.2 [facility] Basophils/100 WBC Auto (Bld) Ordered By: Yani Cyr on 10-03-2022 Basophils/100 WBC (Bld) 0.4 % . [facility] Calcium [Mass/volume] in Ser um or PlasmaOrdered By: Yani Cyr on 10-03-2022 Calcium [Mass/Vol] 9.1 mg/dL 8.6-10.3 [facility] Carbon dioxide, total [Moles /volume] in Serum or PlasmaOrdered By: Yani Cyr on 10-03-2022 CO2 [Moles/Vol] 30.5 mmol/L 21.0-31.0 [facility] Chloride [Moles/volume] in S enma or PlasmaOrdered By: Yani Cyr on 10-03-2022 Chloride [Moles/Vol] 102 mmol/L 98-107 [facility] Complete Blood Count Auto Di ffon 10-03-2022 Basophils (Bld) [#/Vol] 0.0 10*3/uL Normal 0.0-0.2 [facility] Comment on above: Result Comment: PERF ORMED BY: [place] [address] PATHOLOGIST [employer]IDENT[employer] CHIEF CLARICE OSWALD M.D. Performed By: #### F ER, FE and TIBC #### [facility] [address] Basophils/100 WBC (Bld) 0.4 % Normal . [facility] Comment on above: Performed By: #### F ER, FE and TIBC #### [facility] [address] [place] [address] [place] Eosinophils (Bld) [#/Vol] 0.1 10*3/uL Normal 0.0-0.45 [facility] Comment on above: Performed By: #### F ER, FE and TIBC #### [facility] [address] [place] [address] [place] Eosinophils/100 WBC (Bld) 1.9 % Normal . [facility] Comment on above: Performed By: #### F ER, FE and TIBC #### [facility] [address] Erythrocyte distribution width (RBC) [Ratio] 14.5 % Normal 11.9-15.3 [facility] Comment on above: Performed By: #### F ER, FE and TIBC #### [facility] [address] Hematocrit (Bld) [Volume fraction] 25.7 % Low 34.0-46.4 [facility] Comment on above: Performed By: #### F ER, FE and TIBC #### [address] Hemoglobin (Bld) [Mass/Vol] 8.7 g/dL Low 11.8-15.4 [facility] Comment on above: Performed By: #### F ER, FE and TIBC #### [address] Lymphocytes (Bld) [#/Vol] 1.1 10*3/uL Normal 1.00-4.8 [facility] Comment on above: Performed By: #### F ER, FE and TIBC #### [address] Lymphocytes/100 WBC (Bld) 14.2 % Normal . [facility] Comment on above: Performed By: #### F ER, FE and TIBC #### [address] MCH (RBC) [Entitic mass] 31.5 pg Normal 24.7-34.3 [facility] Comment on above: Performed By: #### F ER, FE and TIBC #### [address] MCV (RBC) [Entitic vol] 92.5 fL Normal 80-100 [facility] Comment on above: Performed By: #### F ER, FE and TIBC #### [address] Mean Corpuscular HGB Conc 34.1 g/dL Normal 32.0-35.0 [facility] Comment on above: Performed By: #### F ER, FE and TIBC #### [address] Monocytes (Bld) [#/Vol] 0.8 10*3/uL Normal 0.0-0.8 [facility] Comment on above: Performed By: #### F ER, FE and TIBC #### [facility] [facility] [address] [place] [address] [place] Monocytes/100 WBC (Bld) 10.5 % Normal . [facility] Comment on above: Performed By: #### F ER, FE and TIBC #### [facility] [address] Neutrophils (Bld) [#/Vol] 5.5 10*3/uL Normal 1.8-7.7 [facility] Comment on above: Performed By: #### F ER, FE and TIBC #### [facility] [address] Neutrophils/100 WBC (Bld) 73.0 % Normal . [facility] Comment on above: Performed By: #### F ER, FE and TIBC #### [facility] [address] [place] [address] [place] NRBC% 0.1 /100{WBC} Normal 0-0.5 [facility] Comment on above: Performed By: #### F ER, FE and TIBC #### [facility] [address] [place] [address] [place] Platelet mean volume (Bld) [Entitic vol] 7.5 fL Normal 6.3-10.7 [facility] Comment on above: Performed By: #### F ER, FE and TIBC #### [facility] [address] [place] [address] [place] Platelets (Bld) [#/Vol] 322 10*3/uL Normal 150-450 [facility] Comment on above: Performed By: #### F ER, FE and TIBC #### [facility] [address] [place] [address] [place] RBC (Bld) [#/Vol] 2.77 10*6/uL Low 3.60-5.00 [facility] Comment on above: Performed By: #### F ER, FE and TIBC #### [facility] [address] [place] [address] [place] WBC (Bld) [#/Vol] 7.6 10*3/uL Normal 3.8-11.6 [facility] Comment on above: Performed By: #### F ER, FE and TIBC #### [facility] [address] Creatinine [Mass/volume] in Serum or PlasmaOrdered By: Yani Cyr on 10-03-2022 Creatinine [Mass/Vol] 0.35 mg/dL 0.60-1.20 [facility] Eosinophils Auto (Bld) [#/Vo l]Ordered By: Yani Cyr on 10-03-2022 Eosinophils (Bld) [#/Vol] 0.1 10*3/uL 0.0-0.45 [facility] Eosinophils/100 WBC Auto (Bl d)Ordered By: Yani Cyr on 10-03-2022 Eosinophils/100 WBC (Bld) 1.9 % . [facility] Erythrocyte distribution wid th Auto (RBC) [Ratio]Ordered By: Yani Cyr on 10-03-2022 Erythrocyte distribution width (RBC) [Ratio] 14.5 % 11.9-15.3 [facility] Glucose [Mass/volume] in Ser um or PlasmaOrdered By: Yani Cyr on 10-03-2022 Glucose [Mass/Vol] 104 mg/dL 74-109 [facility] Comment on above: ADA recommended refe rence rangeRandom Glucose Reference Range is dependent on time and content of last meal. Glucose of more than 200 mg/dL in a nonstressed, ambulatory subject supports the diagnosis of Diabetes Mellitus. Hematocrit Auto (Bld) [Volum e fraction]Ordered By: Yani Cyr on 10-03-2022 Hematocrit (Bld) [Volume fraction] 25.7 % 34.0-46.4 [facility] Hemoglobin [Mass/volume] in BloodOrdered By: Yani Cyr on 10-03-2022 Hemoglobin (Bld) [Mass/Vol] 8.7 g/dL 11.8-15.4 [facility] Laboratory - Chemistry and C hemistry - challengeOrdered By: Yani Cyr on 10-03-2022 GFR/1.73 sq M.predicted MDRD (S/P/Bld) [Vol rate/Area] mL/min/{1.73_m2} [facility] Leukocytes [#/volume] correc anna marie for nucleated erythrocytes in Blood by Automated counOrdered By: Yani Cyr on 10-03-2022 WBC corrected for nucl RBC Auto (Bld) [#/Vol] 7.6 10*3/uL 3.8-11.6 [facility] Lymphocytes Auto (Bld) [#/Vo l]Ordered By: Yani Cyr on 10-03-2022 Lymphocytes (Bld) [#/Vol] 1.1 10*3/uL 1.00-4.8 [facility] Lymphocytes/100 WBC Auto (Bl d)Ordered By: Yani Cyr on 10-03-2022 Lymphocytes/100 WBC (Bld) 14.2 % . [facility] MCH Auto (RBC) [Entitic mass ]Ordered By: Yani Cyr on 10-03-2022 MCH (RBC) [Entitic mass] 31.5 pg 24.7-34.3 [facility] MCHC Auto (RBC) [Mass/Vol]Or dered By: Yani Cyr on 10-03-2022 MCHC (RBC) [Mass/Vol] 34.1 g/dL 32.0-35.0 [facility] MCV Auto (RBC) [Entitic vol] Ordered By: Yani Cyr on 10-03-2022 MCV (RBC) [Entitic vol] 92.5 fL 80-100 [facility] Monocytes Auto (Bld) [#/Vol] Ordered By: Yani Cyr on 10-03-2022 Monocytes (Bld) [#/Vol] 0.8 10*3/uL 0.0-0.8 [facility] Monocytes/100 WBC Auto (Bld) Ordered By: Yani Cyr on 10-03-2022 Monocytes/100 WBC (Bld) 10.5 % . [facility] Neutrophils Auto (Bld) [#/Vo l]Ordered By: Yani yCr on 10-03-2022 Neutrophils (Bld) [#/Vol] 5.5 10*3/uL 1.8-7.7 [facility] Neutrophils/100 WBC Auto (Bl d)Ordered By: Yani Cyr on 10-03-2022 Neutrophils/100 WBC (Bld) 73.0 % . [facility] No Panel InformationOrdered By: Yani Cyr on 10-03-2022 Pharmacy Creatinine Clearance (Chem 35.59 [facility] Nucleated erythrocytes [Pres ence] in Blood by Automated countOrdered By: Yani Cyr on 10-03-2022 Nucleated RBC Auto Ql (Bld) 0.1 /100{WBC} 0-0.5 [facility] Platelet mean volume Auto (B ld) [Entitic vol]Ordered By: Yani Cyr on 10-03-2022 Platelet mean volume (Bld) [Entitic vol] 7.5 fL 6.3-10.7 [facility] Platelets Auto (Bld) [#/Vol] Ordered By: Yani Cyr on 10-03-2022 Platelets (Bld) [#/Vol] 322 10*3/uL 150-450 [facility] Potassium [Moles/volume] in Serum or PlasmaOrdered By: Yani Cyr on 10-03-2022 Potassium [Moles/Vol] 3.7 mmol/L 3.5-5.1 [facility] RBC Auto (Bld) [#/Vol]Ordere d By: Yani Cyr on 10-03-2022 RBC (Bld) [#/Vol] 2.77 10*6/uL 3.60-5.00 [facility] Serum or plasma anion gap de terminationOrdered By: Yani Cyr on 10-03-2022 Anion gap [Moles/Vol] 8.2 mmol/L 6.0-15.0 [facility] Sodium [Moles/volume] in Ser um or PlasmaOrdered By: Yani Cyr on 10-03-2022 Sodium [Moles/Vol] 137 mmol/L 136-145 [facility] Urea nitrogen [Mass/volume] in Serum or PlasmaOrdered By: Yani Cyr on 10-03-2022 Urea nitrogen [Mass/Vol] 10 mg/dL 7-25 [facility] WBC Auto (Bld) [#/Vol]Ordere d By: Yani Cyr on 10-03-2022 WBC (Bld) [#/Vol] 7.6 10*3/uL 3.8-11.6 [facility] XR hip LT min 2V(w/wo pelvis )*on 10-03-2022 XR hip LT min 2V(w/wo pelvis)* [facility] [place] [address] [place] [id number] XRay Report Signed Patient: Annamaria Garcia MR#: [id number] : 1935 Acct:[id number] Age/Sex: 87 / F ADM Date: 09/28/22 Loc: Room: [address] [place] [address] Type: ADM IN Attending Dr: Yani Cyr [...] complication. Impression dictated by: Josse Forrester Jr., D.OPortillo10/03/2022 10:04 AM Dictation Location: [place] [address] Transcribed By: [facility] 10/03/22 1004 Dictated By: Josse Forrester Jr, DO 10/03/22 1003 Signed By: 10/03/22 1004 Normal [facility] Hemoglobin and Hematocriton 10-02-2022 Hematocrit (Bld) [Volume fraction] 21.3 % Low 34.0-46.4 [facility] Comment on above: Result Comment: PERF ORMED BY: [address] [id number] PATHOLOGIST [employer] CLARICE OSWALD M.D. Performed By: #### F ER, FE and TIBC #### [address] Hemoglobin (Bld) [Mass/Vol] 7.3 g/dL Low 11.8-15.4 [facility] Comment on above: Performed By: #### F ER, FE and TIBC #### [address] Complete Blood Count Auto Di ffon 10-01-2022 Basophils (Bld) [#/Vol] 0.0 10*3/uL Normal 0.0-0.2 [facility] Comment on above: Result Comment: PERF ORMED BY: [place] [address] PATHOLOGIST [employer] CLARICE OSWALD M.D. Performed By: #### C BC #### [address] Basophils/100 WBC (Bld) 0.3 % Normal . [facility] Comment on above: Performed By: #### C BC #### [address] Eosinophils (Bld) [#/Vol] 0.1 10*3/uL Normal 0.0-0.45 [facility] Comment on above: Performed By: #### C BC #### [address] Eosinophils/100 WBC (Bld) 1.0 % Normal . [facility] Comment on above: Performed By: #### C BC #### [address] Erythrocyte distribution width (RBC) [Ratio] 13.8 % Normal 11.9-15.3 [facility] Comment on above: Performed By: #### C BC #### [address] Hematocrit (Bld) [Volume fraction] 21.8 % Low 34.0-46.4 [facility] Comment on above: Performed By: #### C BC #### [address] Hemoglobin (Bld) [Mass/Vol] 7.4 g/dL Low 11.8-15.4 [facility] Comment on above: Performed By: #### C BC #### [address] Lymphocytes (Bld) [#/Vol] 0.9 10*3/uL Low 1.00-4.8 [facility] Comment on above: Performed By: #### C BC #### [address] Lymphocytes/100 WBC (Bld) 12.7 % Normal . [facility] Comment on above: Performed By: #### C BC #### [address] MCH (RBC) [Entitic mass] 31.0 pg Normal 24.7-34.3 [facility] Comment on above: Performed By: #### C BC #### [address] MCV (RBC) [Entitic vol] 91.8 fL Normal 80-100 [facility] Comment on above: Performed By: #### C BC #### [address] Mean Corpuscular HGB Conc 33.8 g/dL Normal 32.0-35.0 [facility] Comment on above: Performed By: #### C BC #### [address] Monocytes (Bld) [#/Vol] 1.0 10*3/uL High 0.0-0.8 [facility] Comment on above: Performed By: #### C BC #### [address] Monocytes/100 WBC (Bld) 13.6 % Normal . [facility] Comment on above: Performed By: #### C BC #### [address] Neutrophils (Bld) [#/Vol] 5.3 10*3/uL Normal 1.8-7.7 [facility] Comment on above: Performed By: #### C BC #### [facility] [address] Neutrophils/100 WBC (Bld) 72.4 % Normal . [facility] Comment on above: Performed By: #### C BC #### [facility] [address] NRBC% 0.0 /100{WBC} Normal 0-0.5 [facility] Comment on above: Performed By: #### C BC #### [facility] [address] Platelet mean volume (Bld) [Entitic vol] 8.0 fL Normal 6.3-10.7 [facility] Comment on above: Performed By: #### C BC #### [facility] [address] Platelets (Bld) [#/Vol] 208 10*3/uL Normal 150-450 [facility] Comment on above: Performed By: #### C BC #### [facility] [address] RBC (Bld) [#/Vol] 2.37 10*6/uL Low 3.60-5.00 [facility] Comment on above: Performed By: #### C BC #### [facility] [address] WBC (Bld) [#/Vol] 7.3 10*3/uL Normal 3.8-11.6 [facility] Comment on above: Performed By: #### C BC #### [facility] [address] Basic Metabolic Panelon 09-21 Anion gap [Moles/Vol] 8.7 mmol/L Normal 6.0-15.0 [facility] Comment on above: Performed By: #### B MP, CBC #### [facility] [address] Calcium [Mass/Vol] 8.3 mg/dL Low 8.6-10.3 [facility] Comment on above: Performed By: #### B MP, CBC #### [facility] [address] [place] [address] [place] Chloride [Moles/Vol] 111 mmol/L High 98-107 [facility] Comment on above: Performed By: #### B MP, CBC #### [facility] [address] CO2 [Moles/Vol] 26.5 mmol/L Normal 21.0-31.0 [facility] Comment on above: Performed By: #### B MP, CBC #### [facility] [address] Creatinine [Mass/Vol] 0.37 mg/dL Low 0.60-1.20 [facility] Comment on above: Performed By: #### B MP, CBC #### [place] [address] [place] Creatinine Clr Calc Pharmacy 35.59 [facility] Comment on above: Result Comment: PERF ORMED BY: [place] [address] PATHOLOGIST [employer] CLARICE OSWALD M.D. Performed By: #### B MP, CBC #### [place] [address] [place] GFR/1.73 sq M.predicted MDRD (S/P/Bld) [Vol rate/Area] mL/min/{1.73_m2} [facility] Comment on above: Performed By: #### B MP, CBC #### [facility] [address] [place] [address] [place] Glucose [Mass/Vol] 102 mg/dL Normal 74-109 [facility] Comment on above: Result Comment: [place] Glucose Reference Range is dependent on time and content of last meal. Glucose of more than 200 mg/dL in a nonstressed, ambulatory subject supports the diagnosis of Diabetes Mellitus. ADA recommended reference range Performed By: #### B MP, CBC #### [place] [address] Potassium [Moles/Vol] 4.2 mmol/L Normal 3.5-5.1 [facility] Comment on above: Performed By: #### B MP, CBC #### [address] Sodium [Moles/Vol] 142 mmol/L Normal 136-145 [facility] Comment on above: Performed By: #### B MP, CBC #### [address] Urea nitrogen [Mass/Vol] 16 mg/dL Normal 7-25 [facility] Comment on above: Performed By: #### B MP, CBC #### [address] Complete Blood Count Auto Di ffon 09-30-2022 Basophils (Bld) [#/Vol] 0.0 10*3/uL Normal 0.0-0.2 [facility] Comment on above: Result Comment: PERF ORMED BY: [place] [address] PATHOLOGIST [employer] CLARICE OSWALD M.D. Performed By: #### B MP, CBC #### [address] Basophils/100 WBC (Bld) 0.3 % Normal . [facility] Comment on above: Performed By: #### B MP, CBC #### [address] Eosinophils (Bld) [#/Vol] 0.0 10*3/uL Normal 0.0-0.45 [facility] Comment on above: Performed By: #### B MP, CBC #### [address] Eosinophils/100 WBC (Bld) 0.3 % Normal . [facility] Comment on above: Performed By: #### B MP, CBC #### [address] Erythrocyte distribution width (RBC) [Ratio] 14.1 % Normal 11.9-15.3 [facility] Comment on above: Performed By: #### B MP, CBC #### [address] Hematocrit (Bld) [Volume fraction] 22.3 % Low 34.0-46.4 [facility] Comment on above: Performed By: #### B MP, CBC #### [address] Hemoglobin (Bld) [Mass/Vol] 7.8 g/dL Low 11.8-15.4 [facility] Comment on above: Performed By: #### B MP, CBC #### [address] Lymphocytes (Bld) [#/Vol] 1.0 10*3/uL Normal 1.00-4.8 [facility] Comment on above: Performed By: #### B MP, CBC #### [address] Lymphocytes/100 WBC (Bld) 12.9 % Normal . [facility] Comment on above: Performed By: #### B MP, CBC #### [address] MCH (RBC) [Entitic mass] 31.9 pg Normal 24.7-34.3 [facility] Comment on above: Performed By: #### B MP, CBC #### [address] MCV (RBC) [Entitic vol] 91.3 fL Normal 80-100 [facility] Comment on above: Performed By: #### B MP, CBC #### [address] Mean Corpuscular HGB Conc 34.9 g/dL Normal 32.0-35.0 [facility] Comment on above: Performed By: #### B MP, CBC #### [address] Monocytes (Bld) [#/Vol] 1.1 10*3/uL High 0.0-0.8 [facility] Comment on above: Performed By: #### B MP, CBC #### [facility] [address] Monocytes/100 WBC (Bld) 13.3 % Normal . [facility] Comment on above: Performed By: #### B MP, CBC #### [facility] [address] Neutrophils (Bld) [#/Vol] 5.9 10*3/uL Normal 1.8-7.7 [facility] Comment on above: Performed By: #### B MP, CBC #### [facility] [address] Neutrophils/100 WBC (Bld) 73.2 % Normal . [facility] Comment on above: Performed By: #### B MP, CBC #### [facility] [address] NRBC% 0.0 /100{WBC} Normal 0-0.5 [facility] Comment on above: Performed By: #### B MP, CBC #### [facility] [address] Platelet mean volume (Bld) [Entitic vol] 8.2 fL Normal 6.3-10.7 [facility] Comment on above: Performed By: #### B MP, CBC #### [facility] [address] [place] [address] [place] Platelets (Bld) [#/Vol] 182 10*3/uL Normal 150-450 [facility] Comment on above: Performed By: #### B MP, CBC #### [facility] [address] [place] [address] [place] RBC (Bld) [#/Vol] 2.44 10*6/uL Low 3.60-5.00 [facility] Comment on above: Performed By: #### B MP, CBC #### [facility] [address] WBC (Bld) [#/Vol] 8.0 10*3/uL Normal 3.8-11.6 [facility] Comment on above: Performed By: #### B MP, CBC #### [facility] [address] [place] [id number] [place] Ferritinon 09-30-2022 Ferritin [Mass/Vol] 53.4 ng/mL Normal 11.0-306.8 [facility] Comment on above: Order Comment: Comme nt add on Result Comment: PERF ORMED BY: [place] [address] PATHOLOGIST [employer] CLARICE OSWALD M.D. Performed By: #### F ER, FE and TIBC #### [facility] [address] [place] [address] Ferritin [Mass/volume] in Se rum or PlasmaOrdered By: Mimi Artis on 09-30-2022 Ferritin [Mass/Vol] 53.4 ng/mL 11.0-306.8 [facility] Hemoglobin and Hematocriton 09-30-2022 Hematocrit (Bld) [Volume fraction] 25.5 % Low 34.0-46.4 [facility] Comment on above: Result Comment: PERF ORMED BY: [place] [address] PATHOLOGIST [employer] CLARICE OSWALD M.D. Performed By: #### F ER, FE and TIBC #### [facility] [address] [place], [place] [id number] [facility] Hemoglobin (Bld) [Mass/Vol] 8.6 g/dL Low 11.8-15.4 [facility] Comment on above: Performed By: #### F ER, FE and TIBC #### [facility] [address] [place] [id number] [place] Iron [Mass/volume] in Serum or PlasmaOrdered By: Mimi Artis on 09-30-2022 Iron [Mass/Vol] 20 ug/dL 50-212 [facility] Iron and TIBC Profileon 09-21 0 % Iron Saturation 7.0 % Low 20-50 [facility] Comment on above: Order Comment: Comme nt add on Performed By: #### F ER, FE and TIBC #### [facility] [address] Iron [Mass/Vol] 20 ug/dL Low 50-212 [facility] Comment on above: Order Comment: Comme nt add on Performed By: #### F ER, FE and TIBC #### [facility] [address] Total Iron Binding Capacity 286 ug/dL Normal 255-450 [facility] Comment on above: Order Comment: Comme nt add on Performed By: #### F ER, FE and TIBC #### [facility] [address] Transferrin [Mass/Vol] 204 mg/dL Normal 203-362 [facility] Comment on above: Order Comment: Comme nt add on Performed By: #### F ER, FE and TIBC #### [address] Iron binding capacity [Mass/ volume] in Serum or PlasmaOrdered By: Mimi Artis on 09-30-2022 Iron binding capacity [Mass/Vol] 286 ug/dL 255-450 [facility] Iron saturation [Mass Fracti on] in Serum or PlasmaOrdered By: Mimi Obika on 09-30-2022 Iron saturation [Mass fraction] 7.0 % 20-50 [facility] Transferrin [Mass/volume] in Serum or PlasmaOrdered By: Mimi Obika on 09-30-2022 Transferrin [Mass/Vol] 204 mg/dL 203-362 [facility] Basic Metabolic Panelon 03 Anion gap [Moles/Vol] 12.9 mmol/L Normal 6.0-15.0 [facility] Comment on above: Performed By: #### B MP, SCAN CBC #### [facility] [address] [place] [address] Calcium [Mass/Vol] 8.9 mg/dL Normal 8.6-10.3 [facility] Comment on above: Performed By: #### B MP, SCAN CBC #### [facility] [address] Chloride [Moles/Vol] 108 mmol/L High 98-107 [facility] Comment on above: Performed By: #### B MP, SCAN CBC #### [facility] [address] CO2 [Moles/Vol] 21.4 mmol/L Normal 21.0-31.0 [facility] Comment on above: Performed By: #### B MP, SCAN CBC #### [facility] [address] Creatinine [Mass/Vol] 0.56 mg/dL Low 0.60-1.20 [facility] Comment on above: Performed By: #### B MP, SCAN CBC #### [address] Creatinine Clr Calc Pharmacy 35.59 [facility] Comment on above: Result Comment: PERF ORMED BY: [place] [address] PATHOLOGIST [employer] CLARICE OSWALD M.D. Performed By: #### B MP, SCAN CBC #### [address] GFR/1.73 sq M.predicted MDRD (S/P/Bld) [Vol rate/Area] mL/min/{1.73_m2} [facility] Comment on above: Performed By: #### B MP, SCAN CBC #### [facility] [address] [place] [address] Glucose [Mass/Vol] 118 mg/dL High 74-109 [facility] Comment on above: Result Comment: [place] Glucose Reference Range is dependent on time and content of last meal. Glucose of more than 200 mg/dL in a nonstressed, ambulatory subject supports the diagnosis of Diabetes Mellitus. ADA recommended reference range Performed By: #### B MP, SCAN CBC #### [facility] [address] Potassium [Moles/Vol] 4.3 mmol/L Normal 3.5-5.1 [facility] Comment on above: Performed By: #### B MP, SCAN CBC #### [facility] [address] Sodium [Moles/Vol] 138 mmol/L Normal 136-145 [facility] Comment on above: Performed By: #### B MP, SCAN CBC #### [facility] [address] Urea nitrogen [Mass/Vol] 16 mg/dL Normal 7-25 [facility] Comment on above: Performed By: #### B MP, SCAN CBC #### [facility] [address] Platelet adequacy [Presence] in Blood by Light microscopyOrdered By: Mimi Artis on 09-29-2022 Platelets LM Ql (Bld) Normal Normal [facility] Platelet morphology finding [Identifier] in BloodOrdered By: Mimi Artis on 09-29-2022 Platelet morphology finding Nom (Bld) Normal Normal [facility] RBC morphologyOrdered By: Rosalba Artis on 09-29-2022 RBC morphology finding Nom (Bld) Normal Normal [facility] Scan and CBCon 09-29-2022 Basophils (Bld) [#/Vol] 0.0 10*3/uL Normal 0.0-0.2 [facility] Comment on above: Performed By: #### B MP, SCAN CBC #### [facility] [address] [place] [address] [place] Basophils/100 WBC (Bld) 0.1 % Normal . [facility] Comment on above: Performed By: #### B MP, SCAN CBC #### [facility] [address] [place] [address] [place] Eosinophils (Bld) [#/Vol] 0.0 10*3/uL Normal 0.0-0.45 [facility] Comment on above: Performed By: #### B MP, SCAN CBC #### [facility] [address] [place] [address] [place] Eosinophils/100 WBC (Bld) 0.0 % Normal . [facility] Comment on above: Performed By: #### B MP, SCAN CBC #### [facility] [address] Erythrocyte distribution width (RBC) [Ratio] 14.2 % Normal 11.9-15.3 [facility] Comment on above: Performed By: #### B MP, SCAN CBC #### [facility] [address] Hematocrit (Bld) [Volume fraction] 27.0 % Low 34.0-46.4 [facility] Comment on above: Performed By: #### B MP, SCAN CBC #### [facility] [address] [place] [address] Hemoglobin (Bld) [Mass/Vol] 9.1 g/dL Low 11.8-15.4 [facility] Comment on above: Performed By: #### B MP, SCAN CBC #### [address] Lymphocytes (Bld) [#/Vol] 0.9 10*3/uL Low 1.00-4.8 [facility] Comment on above: Performed By: #### B MP, SCAN CBC #### [place] [address] [place] Lymphocytes/100 WBC (Bld) 7.1 % Normal . [facility] Comment on above: Performed By: #### B MP, SCAN CBC #### [address] MCH (RBC) [Entitic mass] 30.9 pg Normal 24.7-34.3 [facility] Comment on above: Performed By: #### B MP, SCAN CBC #### [place] [address] [place] MCV (RBC) [Entitic vol] 91.6 fL Normal 80-100 [facility] Comment on above: Performed By: #### B MP, SCAN CBC #### [facility] [address] [place] [address] Mean Corpuscular HGB Conc 33.7 g/dL Normal 32.0-35.0 [facility] Comment on above: Performed By: #### B MP, SCAN CBC #### [facility] [address] [place] [address] [place] Monocytes (Bld) [#/Vol] 1.7 10*3/uL High 0.0-0.8 [facility] Comment on above: Performed By: #### B MP, SCAN CBC #### [facility] [address] Monocytes/100 WBC (Bld) 13.5 % Normal . [facility] Comment on above: Performed By: #### B MP, SCAN CBC #### [facility] [address] Neutrophils (Bld) [#/Vol] 10.2 10*3/uL High 1.8-7.7 [facility] Comment on above: Performed By: #### B MP, SCAN CBC #### [facility] [address] [place] [address] Neutrophils/100 WBC (Bld) 79.3 % Normal . [facility] Comment on above: Performed By: #### B MP, SCAN CBC #### [address] NRBC% 0.0 /100{WBC} Normal 0-0.5 [facility] Comment on above: Performed By: #### B MP, SCAN CBC #### [facility] [address] [place] [address] Platelet Estimate Normal Normal Normal [facility] Comment on above: Performed By: #### B MP, SCAN CBC #### [facility] [address] [place] [address] Platelet mean volume (Bld) [Entitic vol] 8.0 fL Normal 6.3-10.7 [facility] Comment on above: Performed By: #### B MP, SCAN CBC #### [facility] [address] [place] [address] Platelet Morphology Normal Normal Normal [facility] Comment on above: Result Comment: PERF ORMED BY: [place] [address] PATHOLOGIST [employer] CLARICE OSWALD M.D. Performed By: #### B MP, SCAN CBC #### [facility] [address] [place] [address] [place] Platelets (Bld) [#/Vol] 220 10*3/uL Normal 150-450 [facility] Comment on above: Performed By: #### B MP, SCAN CBC #### [facility] [address] RBC (Bld) [#/Vol] 2.95 10*6/uL Low 3.60-5.00 [facility] Comment on above: Performed By: #### B MP, SCAN CBC #### [facility] [address] RBC morphology finding Nom (Bld) Normal Normal Normal [facility] Comment on above: Performed By: #### B MP, SCAN CBC #### [facility] [address] WBC (Bld) [#/Vol] 12.9 10*3/uL High 3.8-11.6 [facility] Comment on above: Performed By: #### B MP, SCAN CBC #### [facility] [address] XR hip LT min 2V(w/wo pelvis )*on 09-29-2022 XR hip LT min 2V(w/wo pelvis)* [facility] [place] [address] [place] [address] XRay Report Signed Patient: Annamaria Garcia MR#: [id number] : 1935 Acct:[id number] Age/Sex: 87 / F ADM Date: 09/28/22 Loc: Room: [address] [place] [address] Type: ADM IN Attending Dr: Adama Kothari [...] Angie Francisco M.D.09/29/2022 11:29 AM Dictation Location: [place] [address] Transcribed By: KWABENA 09/29/22 1129 Dictated By: Angie Francisco MD 09/29/22 1127 Signed By: 09/29/22 1129 Normal [facility] ABO AND RH TYPEon 09-28-2022 ABO and Rh group Nom (Bld) ABO Rh Typing A Rh Positive Normal [facility] Comment on above: Performed By: #### C MP, CMADM #### [facility] [address] [place] [address] [address] Nidhi Dawn Albumin Levelon 09-28-2022 Albumin [Mass/Vol] 4.0 g/dL Normal 3.5-5.7 [facility] Comment on above: Result Comment: PERF ORMED BY: [place] [address] PATHOLOGIST [employer] CLARICE OSWALD M.D. Performed By: #### F ER, FE and TIBC #### [facility] [address] [place] [address] [place] Albumin [Mass/volume] in Ser um or Plasma by Bromocresol green (BCG) dye binding methoOrdered By: Bulmaro Moses on 09-28-2022 Albumin BCG dye [Mass/Vol] 4.0 g/dL 3.5-5.7 [facility] Basic Metabolic Panelon Anion gap [Moles/Vol] 10.8 mmol/L Normal 6.0-15.0 [facility] Comment on above: Performed By: #### F ER, FE and TIBC #### [facility] [address] [place] [address] [place] Calcium [Mass/Vol] 9.0 mg/dL Normal 8.6-10.3 [facility] Comment on above: Performed By: #### F ER, FE and TIBC #### [facility] [address] Chloride [Moles/Vol] 103 mmol/L Normal 98-107 [facility] Comment on above: Performed By: #### F ER, FE and TIBC #### [facility] [address] CO2 [Moles/Vol] 28.5 mmol/L Normal 21.0-31.0 [facility] Comment on above: Performed By: #### F ER, FE and TIBC #### [facility] [address] Creatinine [Mass/Vol] 0.40 mg/dL Low 0.60-1.20 [facility] Comment on above: Performed By: #### F ER, FE and TIBC #### [facility] [address] [place] [address] [place] Creatinine Clr Calc Pharmacy 31.68 [facility] Comment on above: Result Comment: PERF ORMED BY: [place] [address] PATHOLOGIST [employer] CLARICE OSWALD M.D. Performed By: #### F ER, FE and TIBC #### [facility] [address] GFR/1.73 sq M.predicted MDRD (S/P/Bld) [Vol rate/Area] mL/min/{1.73_m2} [facility] Comment on above: Performed By: #### F ER, FE and TIBC #### [facility] [address] [place] [address] [place] Glucose [Mass/Vol] 143 mg/dL High 74-109 [facility] Comment on above: Result Comment: [place] Glucose Reference Range is dependent on time and content of last meal. Glucose of more than 200 mg/dL in a nonstressed, ambulatory subject supports the diagnosis of Diabetes Mellitus. ADA recommended reference range Performed By: #### F ER, FE and TIBC #### [facility] [address] [place] [address] [place] Potassium [Moles/Vol] 3.3 mmol/L Low 3.5-5.1 [facility] Comment on above: Performed By: #### F ER, FE and TIBC #### [facility] [address] Sodium [Moles/Vol] 139 mmol/L Normal 136-145 [facility] Comment on above: Performed By: #### F ER, FE and TIBC #### [facility] [address] Urea nitrogen [Mass/Vol] 8 mg/dL Normal 7-25 [facility] Comment on above: Performed By: #### F ER, FE and TIBC #### [facility] [address] ABD/PELVIS WO CONon 09-28 CT ABD/PELVIS [...] additional acute abdominal findings. Electronically authenticated by: ARVEN RENNER Date: 2022-09-27 22:38 Normal [facility] CT CSPINE WO CONon 3 CT CSPINE [...] SOPHIE SINGLETON Date: 2022-09-27 22:42 Normal [facility] CT HEAD WO CONon 09-28-2022 CT HEAD [...] RAVEN RENNER Date: 2022-09-27 22:43 Normal [facility] CT LSPINE WO CONon 3 CT LSPINE WO CON EXAM: CT LSPINE WO C [...] KANU BURK Date: 2022-09-27 22:42 Normal [facility] Complete Blood Count Auto Di ffon 09-28-2022 Basophils (Bld) [#/Vol] 0.0 10*3/uL Normal 0.0-0.2 [facility] Comment on above: Result Comment: PERF ORMED BY: [place] [address] PATHOLOGIST [employer] CLARICE OSWALD M.D. Performed By: #### F ER, FE and TIBC #### [address] Basophils/100 WBC (Bld) 0.0 % Normal . [facility] Comment on above: Performed By: #### F ER, FE and TIBC #### [address] Eosinophils (Bld) [#/Vol] 0.0 10*3/uL Normal 0.0-0.45 [facility] Comment on above: Performed By: #### F ER, FE and TIBC #### [address] Eosinophils/100 WBC (Bld) 0.0 % Normal . [facility] Comment on above: Performed By: #### F ER, FE and TIBC #### [address] Erythrocyte distribution width (RBC) [Ratio] 13.9 % Normal 11.9-15.3 [facility] Comment on above: Performed By: #### F ER, FE and TIBC #### [address] Hematocrit (Bld) [Volume fraction] 33.9 % Low 34.0-46.4 [facility] Comment on above: Performed By: #### F ER, FE and TIBC #### [address] Hemoglobin (Bld) [Mass/Vol] 11.5 g/dL Low 11.8-15.4 [facility] Comment on above: Performed By: #### F ER, FE and TIBC #### [address] Lymphocytes (Bld) [#/Vol] 0.6 10*3/uL Low 1.00-4.8 [facility] Comment on above: Performed By: #### F ER, FE and TIBC #### [address] Lymphocytes/100 WBC (Bld) 4.7 % Normal . [facility] Comment on above: Performed By: #### F ER, FE and TIBC #### [facility] [address] [place] [address] MCH (RBC) [Entitic mass] 30.8 pg Normal 24.7-34.3 [facility] Comment on above: Performed By: #### F ER, FE and TIBC #### [address] MCV (RBC) [Entitic vol] 90.8 fL Normal 80-100 [facility] Comment on above: Performed By: #### F ER, FE and TIBC #### [address] Mean Corpuscular HGB Conc 34.0 g/dL Normal 32.0-35.0 [facility] Comment on above: Performed By: #### F ER, FE and TIBC #### [address] Monocytes (Bld) [#/Vol] 0.9 10*3/uL High 0.0-0.8 [facility] Comment on above: Performed By: #### F ER, FE and TIBC #### [address] Monocytes/100 WBC (Bld) 7.4 % Normal . [facility] Comment on above: Performed By: #### F ER, FE and TIBC #### [address] Neutrophils (Bld) [#/Vol] 10.7 10*3/uL High 1.8-7.7 [facility] Comment on above: Performed By: #### F ER, FE and TIBC #### [address] Neutrophils/100 WBC (Bld) 87.9 % Normal . [facility] Comment on above: Performed By: #### F ER, FE and TIBC #### [address] NRBC% 0.1 /100{WBC} Normal 0-0.5 [facility] Comment on above: Performed By: #### F ER, FE and TIBC #### [facility] [address] Platelet mean volume (Bld) [Entitic vol] 8.0 fL Normal 6.3-10.7 [facility] Comment on above: Performed By: #### F ER, FE and TIBC #### [facility] [address] [place] [id number] [place] Platelets (Bld) [#/Vol] 253 10*3/uL Normal 150-450 [facility] Comment on above: Performed By: #### F ER, FE and TIBC #### [facility] [address] RBC (Bld) [#/Vol] 3.73 10*6/uL Normal 3.60-5.00 [facility] Comment on above: Performed By: #### F ER, FE and TIBC #### [facility] [address] WBC (Bld) [#/Vol] 12.2 10*3/uL High 3.8-11.6 [facility] Comment on above: Performed By: #### F ER, FE and TIBC #### [facility] [address] ECG 12 lead ECGon 09-28-2022 ECG 12 lead ECG [facility] [place] [address] [place] [address] Electrocardiograph Report Signed Patient: Annamaria Garcia MR#: [id number] : 1935 Acct:[id number] Age/Sex: 87 / F ADM Date: 09/28/22 Loc: Room: [address] [place] [address] Type: ADM IN Attending Dr: Adama Kothari [...] No previous ECGs available Confirmed by ESTEE KNIGHT MD ([id number]) on 09/28/2022 3:08:35 PM Referred By: Electronically Signed By:ESTEE KNIGHT MD Transcribed By: MUS Signed By Estee Knight MD 0 09/28/22 1508 Normal [facility] ER URINE PROFILEon 3 Bilirubin Ql (U) Negative Normal NEGATIVE [facility] Comment on above: Performed By: #### C MP, CMADM #### [facility] [address] [place] [address] Dr. Nidhi Dawn Clarity (U) CLEAR Normal CLEAR [facility] Comment on above: Performed By: #### C MP, CMADM #### [facility] [address] [place] [address] Dr. Nidhi Dawn Color (U) LT. YELLOW Normal YELLOW [facility] Comment on above: Performed By: #### C MP, CMADM #### [facility] [address] [place] [address] Dr. Nidhi Dawn ERUAHRadha A micrscopic examina tion will be performed if indicated. Normal [facility] Comment on above: Performed By: #### C MP, CMADM #### [facility] [address] [place] [address] Dr. Nidhi Dawn Glucose Ql (U) Negative Normal NEGATIVE [facility] Comment on above: Performed By: #### C MP, CMADM #### [facility] [address] [place] [address] [address] Nidhi Dawn Hemoglobin Ql (U) Negative Normal NEGATIVE [facility] Comment on above: Performed By: #### C MP, CMADM #### [facility] [address] [place] [address] Dr. Nidhi Dawn Ketones Ql (U) 40 mg/dl Abnormal NEGATIVE [facility] Comment on above: Performed By: #### C MP, CMADM #### [facility] [address] [place] [address] Dr. Nidhi Dawn LEUKOCYTES Negative Normal NEGATIVE [facility] Comment on above: Performed By: #### C MP, CMADM #### [facility] [address] [place] [address] [address] Nidhi Dawn Nitrite Ql (U) Negative Normal NEGATIVE [facility] Comment on above: Performed By: #### C MP, CMADM #### [facility] [address] [place] [address] [address] Nidhi Dawn pH (U) 7.0 [pH] Normal 5-9 [facility] Comment on above: Performed By: #### C MP, CMADM #### [facility] [address] [place] [address] [address] Nidhi Dawn SPEC GRAVITY 1.010 Normal 1.005-<=1.0 25 [facility] Comment on above: Performed By: #### C DONA, CMADM #### [facility] [address] [place] [address] [address] Nidhi Dawn UA PROTEIN TRACE Normal NEGATIVE/ TRACE [facility] Comment on above: Performed By: #### C DONA, CMADM #### [facility] [address] [place] [address] [address] Nidhi Dawn UR MICRO IND NOT INDICATED Normal [facility] Comment on above: Performed By: #### C DONA, CMADM #### [facility] [address] [place] [address] [address] Nidhi Dawn Urobilinogen Qn (U) 0.2 {[place]'U}/dL Normal 0.2 - 1. 0 [facility] Comment on above: Performed By: #### C DONA, CMADM #### [facility] [address] [place] [address] [address] Nidhi Dawn Glucose Glucometer ([facility]) [M ass/Vol]Ordered By: Juliet Green on 09-28-2022 Glucose [Mass/Vol] 107 mg/dL [facility] Comment on above: Random Glucose Refer ence Range is dependent on time and content of last meal. Glucose of more than 200 mg/dL in a nonstressed, ambulatory subject supports the diagnosis of Diabetes Mellitus. Glucose Poct Glucometerson 0 09-28-2022 Glucose [Mass/Vol] 107 mg/dL Normal [facility] Comment on above: Result Comment: [facility] Glucose Reference Range is dependent on time and content of last meal. Glucose of more than 200 mg/dL in a nonstressed, ambulatory subject supports the diagnosis of Diabetes Mellitus. PERFORMED BY: [place] [address] PATHOLOGIST [employer] CLARICE OSWALD M.D. Performed By: #### G OSCAR #### Point of Care testing , Laboratory - CoagulationOrde red By: Juliet Green on 09-28-2022 PT Coag (PPP) [Time] 13.1 s 9.0-12.9 [facility] Magnesiumon 09-28-2022 Magnesium [Mass/Vol] 1.9 mg/dL Normal 1.9-2.7 [facility] Comment on above: Order Comment: Comme nt add Result Comment: PERF ORMED BY: [place] [address] PATHOLOGIST [employer] CLARICE OSWALD M.D. Performed By: #### M G #### [address] Magnesium [Mass/volume] in S enma or PlasmaOrdered By: Juliet Green on 09-28-2022 Magnesium [Mass/Vol] 1.9 mg/dL 1.9-2.7 [facility] Platelet poor plasma interna tional normalized ratio (INR) by coagulation assay (relatOrdered By: Juliet Green on 09-28-2022 INR Coag (PPP) [Relative time] 1.1 {INR} [facility] Comment on above: INR Therapeutic Rang [...] Coag (PPP) [Relative time] 1.1 {INR} Normal [facility] Comment on above: Result Comment: INR [...] heart valves: 3 - 4.5 PERFORMED BY: [place] [address] PATHOLOGIST [employer] CLARICE OSWALD M.D. Performed By: #### F ER, FE and TIBC #### [address] PT Coag (PPP) [Time] 13.1 s High 9.0-12.9 [facility] Comment on above: Performed By: #### F ER, FE and TIBC #### [place] [id number] [facility] Vitamin B12on 09-28-2022 Cobalamin (Vitamin B12) [Mass/Vol] 202 pg/mL Normal 180-914 [facility] Comment on above: Result Comment: PERF ORMED BY: [place] [address] PATHOLOGIST [employer] CLARICE OSWALD M.D. Performed By: #### B 12 #### [facility] [address] [place] [address] Vitamin B12 ser/plasOrdered By: Mimi Artis on 09-28-2022 Cobalamin (Vitamin B12) [Mass/Vol] 202 pg/mL 180-914 [facility] Vitamin D 25 Hydroxy,Tot+D2+ D3on 09-28-2022 Vitamin D 25 OH (LC) 33 ng/mL Normal . [facility] Comment on above: Result Comment: Refe rence Range: All Ages: Target levels 30 - 100 Performed By: #### F ER, FE and TIBC #### [facility] [address] [place] [address] Vitamin D-2 <1.0 Normal . [facility] Comment on above: Result Comment: This test was developed and its performance characteristics determined by [facility]. It has not been cleared or approved by the Food and Drug Administration. Performed By: #### F ER, FE and TIBC #### [facility] [address] [place] [address] Vitamin D-3 33 ng/mL Normal . [facility] Comment on above: Result Comment: This test was developed and its performance characteristics determined by [facility]. It has not been cleared or approved by the Food and Drug Administration. Performed at: [employer] [address] [place] [id number] Anime Artist: Avel Dempsey MD, Phone: [phone] PERFORMED BY: [place] [address] PATHOLOGIST [employer] CLARICE OSWALD M.D. Performed By: #### F ER, FE and TIBC #### [address] XR femur LT 2V*on 09-28-2022 XR femur LT 2V* [facility] [place] [address] [place] [address] XRay Report Signed Patient: Annamaria Garcia MR#: [id number] : 1935 Acct:[id number] Age/Sex: 87 / F ADM Date: 09/28/22 Loc: Room: [address] [place] [address] Type: ADM IN Attending Dr: Juliet Green MD Copies to: MD Juliet Lennon MD Ordering Provider: Bulmaro Moses MD Date of Service: 09/28/22 XR/XR femur LT 2V*: left fem head fx ([id number]) XR/XR low pelvis w/LT x-table hip: left [...] fractures or dislocation are seen within the [id number]. There is mild degenerative change at the knee with medial tibiofemoral joint compartment narrowing and minor tricompartment marginal spurring. There are no focal soft tissue findings. IMPRESSION: NO ACUTE BONY INJURY WITHIN THE [id number]. Impression dictated by: Angie Francisco M.D.09/28/2022 7:21 AM Dictation Location: [place] [address] Transcribed By: [facility] 09/28/22720 Dictated By: Angie Francisco MD 09/28/22 0716 Signed By: 09/28/22720 [facility] CARDIAC CELESTINO ADMITon 023 CK [Catalytic activity/Vol] 96 U/L Normal 26-192 [facility] Comment on above: Performed By: #### C HELENA CARCAMO #### [facility] [address] [place] [address] [address] Nidhi Dawn CK.MB [Mass/Vol] 2.59 ng/mL Normal <=3.60 [facility] Comment on above: Performed By: #### HELENA Herzog MP #### [facility] [address] [place] [address] [address] Nidhi Dawn HSTROP 8.6 pg/mL Normal 4.0-51.3 [facility] Comment on above: Result Comment: CUT- OFF POINTS HAVE BEEN ESTABLISHED BASED ON THE FOURTH UNIVERSAL DEFINITIONS OF MYOCARDIAL INFARCTION. THE UPPER REFERENCE LIMIT (URL) OF TROPONIN, DEFINED THE 99TH PERCENTILE OF cTnI DISTRIBUTION IN A REFERENCE POPULATION, HAS BEEN CONFIRMED THE DECISION THRESHOLD FOR [place] DIAGNOSIS. Performed By: #### C HELENA CARCAMO #### [facility] [address] [place] [address] Dr. Nidhi Dawn BOBBY 75 ng/mL Normal 9-82 [facility] Comment on above: Performed By: #### C HELENA CARCAMO #### [facility] [address] [place] [address] Dr. Nidhi Dawn CBC AUTO DIFFon 09-27-2022 BASO # 0.0 103/ul Normal 0.0-0.1 [facility] Comment on above: Performed By: #### C BC #### [facility] [address] [place] [address] Dr. Nidhi Dawn Basophils/100 WBC (Bld) 0.2 % Normal 0.2-2.0 [facility] Comment on above: Performed By: #### C BC #### [facility] [address] [place] [address] Dr. Nidhi Dawn EO # 0.0 103/ul Normal 0.0-0.7 [facility] Comment on above: Performed By: #### C BC #### [facility] [address] [place] [address] Dr. Nidhi Dawn Eosinophils/100 WBC (Bld) 0.1 % Critically low 0.9-7.0 [facility] Comment on above: Performed By: #### C BC #### [facility] [address] [place] [address] Dr. Nidhi Dawn Erythrocyte distribution width (RBC) [Ratio] 13.2 % Normal 11.0-15.0 [facility] Comment on above: Performed By: #### C BC #### [facility] [address] [place] [address] Dr. Nidhi Dawn Hematocrit (Bld) [Volume fraction] 34.6 % Critically low 36.0-48.0 [facility] Comment on above: Performed By: #### C BC #### [facility] [address] [place] [address] Dr. Nidhi Dawn Hemoglobin (Bld) [Mass/Vol] 11.7 g/dL Critically low 12.0-16.0 [facility] Comment on above: Performed By: #### C BC #### [facility] [address] [place] [address] Dr. Nidhi Dawn IG # 0.06 10e3/ul Critically high 0.00-0.03 [facility] Comment on above: Performed By: #### C BC #### [facility] [address] [place] [address] Dr. Nidhi Dawn IG % 0.4 % Normal 0.0-0.5 [facility] Comment on above: Performed By: #### C BC #### [facility] [address] [place] [address] Dr. Nidhi Dawn LYMPH # 1.1 103/ul Critically low 1.2-3.8 [facility] Comment on above: Performed By: #### C BC #### [facility] [address] [place] [address] Dr. Nidhi Dawn Lymphocytes/100 WBC (Bld) 7.0 % Critically low 20.5-60.0 [facility] Comment on above: Performed By: #### C BC #### [facility] [address] [place] [address] Dr. Nidhi Dawn MANUAL DIFF REQ NO Normal [facility] Comment on above: Performed By: #### C BC #### [facility] [address] [place] [address] Dr. Nidhi Dawn MCH (RBC) [Entitic mass] 31.0 pg Normal 26.7-34.0 [facility] Comment on above: Performed By: #### C BC #### [facility] [address] [place] [address] Dr. Nidhi Dawn MCHC (RBC) [Mass/Vol] 33.8 g/dL Normal 29.9-35.2 [facility] Comment on above: Performed By: #### C BC #### [facility] [address] [place] [address] Dr. Nidhi Dawn MCV (RBC) [Entitic vol] 91.8 fL Normal 81.0-99.0 [facility] Comment on above: Performed By: #### C BC #### [facility] [address] [place] [address] Dr. Nidhi Dawn MONO # 1.1 103/ul Critically high 0.3-0.8 [facility] Comment on above: Performed By: #### C BC #### [facility] [address] [place] [address] Dr. Nidhi Dawn Monocytes/100 WBC (Bld) 7.0 % Normal 1.7-12.0 [facility] Comment on above: Performed By: #### C BC #### [facility] [address] [place] [address] Dr. Nidhi Dawn NEUT # 13.1 103/ul Critically high 1.4-6.5 [facility] Comment on above: Performed By: #### C BC #### [facility] [address] [place] [address] Dr. Nidhi Dawn Neutrophils/100 WBC (Bld) 85.3 % Critically high 43.0-75.0 [facility] Comment on above: Performed By: #### C BC #### [facility] [address] [place] [address] Dr. Nidhi Dawn Platelet mean volume (Bld) [Entitic vol] 9.1 fL Critically low 9.5-13.5 [facility] Comment on above: Performed By: #### C BC #### [facility] [address] [place] [address] Dr. Nidhi Dawn PLT 274 103/ul Normal 150-450 [facility] Comment on above: Performed By: #### C BC #### [facility] [address] [place] [address] Dr. Nidhi Dawn RBC 3.77 106/ul Critically low 4.20-5.40 [facility] Comment on above: Performed By: #### C BC #### [facility] [address] [place] [address] Dr. Nidhi Dawn WBC 15.4 103/ul Critically high 4.0-11.0 [facility] Comment on above: Performed By: #### C BC #### [facility] [address] [place] [address] Dr. Nidhi Dawn MAGNESIUMon 09-27-2022 Magnesium [Mass/Vol] 1.6 mg/dL Critically low 1.8-2.4 [facility] Comment on above: Performed By: #### C BC #### [facility] [address] [place] [address] Dr. Nidhi Dawn PROF 14(COMP METB)on 023 Albumin [Mass/Vol] 3.6 g/dL Normal 3.4-5.0 [facility] Comment on above: Performed By: #### C HELENA CARCAMO #### [facility] [address] [place] [address] Dr. Nidhi Dawn Albumin/Globulin [Mass ratio] 1.2 {ratio} Normal [facility] Comment on above: Performed By: #### C HELENA CARCAMO #### [facility] [address] [place] [address] Dr. Nidhi Dawn ALP [Catalytic activity/Vol] 60 U/L Normal 46-116 [facility] Comment on above: Performed By: #### C HELENA CARCAMO #### [facility] [address] [place] [address] Dr. Nidhi Dawn ALT [Catalytic activity/Vol] 18 U/L Normal 14-59 [facility] Comment on above: Performed By: #### C LEONCIO CARCAMODM #### [facility] [address] [place] [address] Dr. Nidhi Dawn Anion gap [Moles/Vol] 9.3 mmol/L Normal [facility] Comment on above: Performed By: #### C DONA, LEONCIODM #### [facility] [address] [place] [address] Dr. Nidhi Dawn AST [Catalytic activity/Vol] 19 U/L Normal 15-37 [facility] Comment on above: Performed By: #### C LEONCIO CARCAMODM #### [facility] [address] [place] [address] Dr. Nidhi Dawn Bilirubin [Mass/Vol] 0.4 mg/dL Normal 0.2-1.0 [facility] Comment on above: Performed By: #### C DONA, CMADM #### [facility] [address] [place] [address] Dr. Nidhi Dawn Calcium [Mass/Vol] 8.8 mg/dL Normal 8.5-10.1 [facility] Comment on above: Performed By: #### C DONA, CMADM #### [facility] [address] [place] [address] Dr. Nidhi Dawn Chloride [Moles/Vol] 104 mmol/L Normal 98-107 [facility] Comment on above: Performed By: #### C DONA, CMADM #### [facility] [address] [place] [address] Dr. Nidhi Dawn CO2 [Moles/Vol] 30.6 mmol/L Normal 21.0-32.0 [facility] Comment on above: Performed By: #### C DONA, CMADM #### [facility] [address] [place] [address] Dr. Nidhi Dawn Creatinine [Mass/Vol] 0.43 mg/dL Critically low 0.55-1.02 [facility] Comment on above: Performed By: #### C DONA, LEONCIODM #### [facility] [address] [place] [address] Dr. Nidhi Dawn EGFR-AF UZBEK >60 Normal >=60 [facility] Comment on above: Performed By: #### C DONA, CMADM #### [facility] [address] [place] [address] Dr. Nidhi Dawn EGFR-NON AF UZBEK >60 Normal >=60 [facility] Comment on above: Performed By: #### C DONA, CMADM #### [facility] [address] [place] [address] Dr. Nidhi Dawn Globulin (S) [Mass/Vol] 3.0 g/dL Normal [facility] Comment on above: Performed By: #### C DONA, CMADM #### [facility] [address] [place] [address] Dr. Nidhi Dawn Glucose [Mass/Vol] 152 mg/dL Critically high 74-106 [facility] Comment on above: Performed By: #### C DONA, CMADM #### [facility] [address] [address] [address] Nidhi Dawn Potassium [Moles/Vol] 2.9 mmol/L Critically low 3.5-5.1 [facility] Comment on above: Performed By: #### C DONA, CMADM #### [facility] [address] [address] [address] Nidhi Dawn Protein [Mass/Vol] 6.6 g/dL Normal 6.4-8.2 [facility] Comment on above: Performed By: #### C DONA, CMADM #### [facility] [address] [address] [address] Nidhi Dawn Sodium [Moles/Vol] 140 mmol/L Normal 136-145 [facility] Comment on above: Performed By: #### C DONA, CMADM #### [facility] [address] [address] [address] Nidhi Dawn Urea nitrogen [Mass/Vol] 5.0 mg/dL Critically low 7.0-18.0 [facility] Comment on above: Performed By: #### C DONA, CMADM #### [facility] [address] [address] [address] Nidhi Dawn Urea nitrogen/Creatinine [Mass ratio] 11.6 mg/mg Normal [facility] Comment on above: Performed By: #### C DONA, CMADM #### [facility] [address] [address] [address] PELVIS WO CONon CT PELVIS WO CON EXAMINATION: CT PELV [...] possible mild ileus. Electronically authenticated by: TAYLOR PEAN Date: 2022-05-02 16:39 Normal [facility] T4 [facility]ORPon 04-05-2022 T4 [Mass/Vol] 6.9 ug/dL Normal 4.5-12.0 [facility] Comment on above: Performed By: #### C BC #### [facility] [address] [address] [address] Nidhi Dawn CBC AUTO DIFFon 04-04-2022 BASO # 0.0 103/ul Normal 0.0-0.1 [facility] Comment on above: Performed By: #### C BC #### [facility] [address] [address] [address] Nidhi Dawn Basophils/100 WBC (Bld) 0.4 % Normal 0.2-2.0 [facility] Comment on above: Performed By: #### C BC #### [facility] [address] [place] [address] Dr. Nidhi Dawn EO # 0.2 103/ul Normal 0.0-0.7 [facility] Comment on above: Performed By: #### C BC #### [facility] [address] [place] [address] Dr. Nidhi Dawn Eosinophils/100 WBC (Bld) 3.1 % Normal 0.9-7.0 [facility] Comment on above: Performed By: #### C BC #### [facility] [address] [place] [address] Dr. Nidhi Dawn Erythrocyte distribution width (RBC) [Ratio] 13.6 % Normal 11.0-15.0 [facility] Comment on above: Performed By: #### C BC #### [facility] [address] [place] [address] Dr. iNdhi Dawn Hematocrit (Bld) [Volume fraction] 30.8 % Critically low 36.0-48.0 [facility] Comment on above: Performed By: #### C BC #### [facility] [address] [place] [address] Dr. Nidhi Dawn Hemoglobin (Bld) [Mass/Vol] 10.3 g/dL Critically low 12.0-16.0 [facility] Comment on above: Performed By: #### C BC #### [facility] [address] [place] [address] Dr. Nidhi Dawn IG # 0.04 10e3/ul Critically high 0.00-0.03 [facility] Comment on above: Performed By: #### C BC #### [facility] [address] [place] [address] Dr. Nidhi Dawn IG % 0.6 % Critically high 0.0-0.5 [facility] Comment on above: Performed By: #### C BC #### [facility] [address] [place] [address] Dr. Nidhi Dawn LYMPH # 1.3 103/ul Normal 1.2-3.8 [facility] Comment on above: Performed By: #### C BC #### [facility] [address] [place] [address] Dr. Nidhi Dawn Lymphocytes/100 WBC (Bld) 18.3 % Critically low 20.5-60.0 [facility] Comment on above: Performed By: #### C BC #### [facility] [address] [place] [address] Dr. Nidhi Dawn MANUAL DIFF REQ NO Normal [facility] Comment on above: Performed By: #### C BC #### [facility] [address] [place] [address] Dr. Nidhi Dawn MCH (RBC) [Entitic mass] 31.0 pg Normal 26.7-34.0 [facility] Comment on above: Performed By: #### C BC #### [facility] [address] [place] [address] Dr. Nidhi Dawn MCHC (RBC) [Mass/Vol] 33.4 g/dL Normal 29.9-35.2 [facility] Comment on above: Performed By: #### C BC #### [facility] [address] [place] [address] Dr. Nidhi Dawn MCV (RBC) [Entitic vol] 92.8 fL Normal 81.0-99.0 [facility] Comment on above: Performed By: #### C BC #### [facility] [address] [place] [address] Dr. Nidhi Dawn MONO # 1.0 103/ul Critically high 0.3-0.8 [facility] Comment on above: Performed By: #### C BC #### [facility] [address] [place] [address] Dr. Nidhi Dawn Monocytes/100 WBC (Bld) 13.7 % Critically high 1.7-12.0 [facility] Comment on above: Performed By: #### C BC #### [facility] [address] [place] [address] Dr. Nidhi Dawn NEUT # 4.5 103/ul Normal 1.4-6.5 [facility] Comment on above: Performed By: #### C BC #### [facility] [address] [place] [address] Dr. Nidhi Dawn Neutrophils/100 WBC (Bld) 63.9 % Normal 43.0-75.0 [facility] Comment on above: Performed By: #### C BC #### [facility] [address] [place] [address] Dr. Nidhi Dawn Platelet mean volume (Bld) [Entitic vol] 9.6 fL Normal 9.5-13.5 [facility] Comment on above: Performed By: #### C BC #### [facility] [address] [place] [address] Dr. Nidhi Dawn PLT 228 103/ul Normal 150-450 [facility] Comment on above: Performed By: #### C BC #### [facility] [address] [place] [address] Dr. Nidhi Dawn RBC 3.32 106/ul Critically low 4.20-5.40 [facility] Comment on above: Performed By: #### C BC #### [facility] [address] [place] [address] Dr. Nidhi Dawn WBC 7.0 103/ul Normal 4.0-11.0 [facility] Comment on above: Performed By: #### C BC #### [facility] [address] [place] [address] Dr. Nidhi Dawn CULTURE URINEon 04-04-2022 CULTURE [...] Trimethoprim/Sulfamethoxaz ole <=20 S F Normal [facility] Comment on above: Performed By: #### C HELENA CARCAMO #### [facility] [address] [place] [address] Dr. Nidhi Dawn PROF CHEM 8 (BAS METB)on Anion gap [Moles/Vol] 8.8 mmol/L Normal [facility] Comment on above: Performed By: #### C HELENA CARCAMO #### [facility] [address] [place] [address] Dr. Nidhi Dawn Calcium [Mass/Vol] 8.7 mg/dL Normal 8.5-10.1 [facility] Comment on above: Performed By: #### C HELENA CARCAMO #### [facility] [address] [place] [address] Dr. Nidhi Dawn Chloride [Moles/Vol] 101 mmol/L Normal 98-107 [facility] Comment on above: Performed By: #### C HELENA CARCAMO #### [facility] [address] [place] [address] Dr. Nidhi Dawn CO2 [Moles/Vol] 29.6 mmol/L Normal 21.0-32.0 [facility] Comment on above: Performed By: #### C HELENA CARCAMO #### [facility] [address] [place] [address] Dr. Nidhi Dawn Creatinine [Mass/Vol] 0.56 mg/dL Normal 0.55-1.02 [facility] Comment on above: Performed By: #### C HELENA CARCAMO #### [facility] [address] [place] [address] Dr. Nidhi Dawn EGFR-AF UZBEK >60 Normal >=60 [facility] Comment on above: Performed By: #### C MP, CMADM #### [facility] [address] [place] [address] Dr. Nidhi Dawn EGFR-NON AF UZBEK >60 Normal >=60 [facility] Comment on above: Performed By: #### C MP, CMADM #### [facility] [address] [place] [address] Dr. Nidhi Dawn Glucose [Mass/Vol] 106 mg/dL Normal 74-106 [facility] Comment on above: Performed By: #### C MP, CMADM #### [facility] [address] [place] [address] Dr. Nidhi Dawn Potassium [Moles/Vol] 3.4 mmol/L Critically low 3.5-5.1 [facility] Comment on above: Performed By: #### C DONA, CMADM #### [facility] [address] [place] [address] Dr. Nidhi Dawn Sodium [Moles/Vol] 136 mmol/L Normal 136-145 [facility] Comment on above: Performed By: #### C MP, CMADM #### [facility] [address] [place] [address] Dr. Nidhi Dawn Urea nitrogen [Mass/Vol] 10.0 mg/dL Normal 7.0-18.0 [facility] Comment on above: Performed By: #### C DONA, CMADM #### [facility] [address] [place] [address] Dr. Nidhi Dawn Urea nitrogen/Creatinine [Mass ratio] 17.9 mg/mg Normal [facility] Comment on above: Performed By: #### C MP, CMADM #### [facility] [address] [place] [address] Dr. Nidhi Dawn CBC AUTO DIFFon 04-03-2022 BASO # 0.0 103/ul Normal 0.0-0.1 [facility] Comment on above: Performed By: #### C BC #### [facility] [address] [place] [address] Dr. Nidhi Dawn Basophils/100 WBC (Bld) 0.4 % Normal 0.2-2.0 [facility] Comment on above: Performed By: #### C BC #### [facility] [address] [place] [address] Dr. Nidhi Dawn EO # 0.1 103/ul Normal 0.0-0.7 [facility] Comment on above: Performed By: #### C BC #### [facility] [address] [place] [address] Dr. Nidhi Dawn Eosinophils/100 WBC (Bld) 1.0 % Normal 0.9-7.0 [facility] Comment on above: Performed By: #### C BC #### [facility] [address] [place] [address] Dr. Nidhi Dawn Erythrocyte distribution width (RBC) [Ratio] 13.6 % Normal 11.0-15.0 [facility] Comment on above: Performed By: #### C BC #### [facility] [address] [place] [address] Dr. Nidhi Dawn Hematocrit (Bld) [Volume fraction] 28.4 % Critically low 36.0-48.0 [facility] Comment on above: Performed By: #### C BC #### [facility] [address] [place] [address] Dr. Nidhi Dawn Hemoglobin (Bld) [Mass/Vol] 9.2 g/dL Critically low 12.0-16.0 [facility] Comment on above: Performed By: #### C BC #### [facility] [address] [place] [address] Dr. Nidhi Dawn IG # 0.04 10e3/ul Critically high 0.00-0.03 [facility] Comment on above: Performed By: #### C BC #### [facility] [address] [place] [address] Dr. Nidhi Dawn IG % 0.5 % Normal 0.0-0.5 [facility] Comment on above: Performed By: #### C BC #### [facility] [address] [place] [address] Dr. Nidhi Dawn LYMPH # 1.1 103/ul Critically low 1.2-3.8 [facility] Comment on above: Performed By: #### C BC #### [facility] [address] [place] [address] Dr. Nidhi Dawn Lymphocytes/100 WBC (Bld) 13.6 % Critically low 20.5-60.0 [facility] Comment on above: Performed By: #### C BC #### [facility] [address] [place] [address] Dr. Nidhi aDwn MANUAL DIFF REQ NO Normal [facility] Comment on above: Performed By: #### C BC #### [facility] [address] [place] [address] Dr. Nidhi Dawn MCH (RBC) [Entitic mass] 30.0 pg Normal 26.7-34.0 [facility] Comment on above: Performed By: #### C BC #### [facility] [address] [place] [address] Dr. Nidhi Dawn MCHC (RBC) [Mass/Vol] 32.4 g/dL Normal 29.9-35.2 [facility] Comment on above: Performed By: #### C BC #### [facility] [address] [place] [address] Dr. Nidhi Dawn MCV (RBC) [Entitic vol] 92.5 fL Normal 81.0-99.0 [facility] Comment on above: Performed By: #### C BC #### [facility] [address] [place] [address] Dr. Nidhi Dawn MONO # 0.9 103/ul Critically high 0.3-0.8 [facility] Comment on above: Performed By: #### C BC #### [facility] [address] [place] [address] Dr. Nidhi Dawn Monocytes/100 WBC (Bld) 12.1 % Critically high 1.7-12.0 [facility] Comment on above: Performed By: #### C BC #### [facility] [address] [place] [address] Dr. Nidhi Dawn NEUT # 5.7 103/ul Normal 1.4-6.5 [facility] Comment on above: Performed By: #### C BC #### [facility] [address] [place] [address] Dr. Nidhi Dawn Neutrophils/100 WBC (Bld) 72.4 % Normal 43.0-75.0 [facility] Comment on above: Performed By: #### C BC #### [facility] [address] [place] [address] Dr. Nidhi Dawn Platelet mean volume (Bld) [Entitic vol] 10.1 fL Normal 9.5-13.5 [facility] Comment on above: Performed By: #### C BC #### [facility] [address] [place] [address] Dr. Nidhi Dawn PLT 174 103/ul Normal 150-450 [facility] Comment on above: Performed By: #### C BC #### [facility] [address] [place] [address] Dr. Nidhi Dawn RBC 3.07 106/ul Critically low 4.20-5.40 [facility] Comment on above: Performed By: #### C BC #### [facility] [address] [place] [address] Dr. Nidhi Dawn WBC 7.8 103/ul Normal 4.0-11.0 [facility] Comment on above: Performed By: #### C BC #### [facility] [address] [place] [address] Dr. Nidhi Dawn PROF CHEM 8 (BAS METB)on Anion gap [Moles/Vol] 11.2 mmol/L Normal [facility] Comment on above: Performed By: #### B MP #### [facility] [address] [place] [address] Dr. Nidhi Dawn Calcium [Mass/Vol] 8.4 mg/dL Critically low 8.5-10.1 [facility] Comment on above: Performed By: #### B MP #### [facility] [address] [place] [address] Dr. Nidhi Dawn Chloride [Moles/Vol] 100 mmol/L Normal 98-107 [facility] Comment on above: Performed By: #### B MP #### [facility] [address] [address] [address] Nidih Dawn CO2 [Moles/Vol] 27.4 mmol/L Normal 21.0-32.0 [facility] Comment on above: Performed By: #### B MP #### [facility] [address] [address] [address] Nidhi Dawn Creatinine [Mass/Vol] 0.56 mg/dL Normal 0.55-1.02 [facility] Comment on above: Performed By: #### B MP #### [facility] [address] [address] [address] Nidhi Dawn EGFR-AF UZBEK >60 Normal >=60 [facility] Comment on above: Performed By: #### B MP #### [facility] [address] [address] [address] Nidhi Dawn EGFR-NON AF UZBEK >60 Normal >=60 [facility] Comment on above: Performed By: #### B MP #### [facility] [address] [address] [address] Nidhi Dawn Glucose [Mass/Vol] 113 mg/dL Critically high 74-106 [facility] Comment on above: Performed By: #### B MP #### [facility] [address] [address] [address] Nidhi Dawn Potassium [Moles/Vol] 3.6 mmol/L Normal 3.5-5.1 [facility] Comment on above: Performed By: #### B MP #### [facility] [address] [place] [address] Dr. Nidhi Dawn Sodium [Moles/Vol] 135 mmol/L Critically low 136-145 Th [facility] Comment on above: Performed By: #### B MP #### [facility] [address] [address] [address] Nidhi Dawn Urea nitrogen [Mass/Vol] 14.0 mg/dL Normal 7.0-18.0 [facility] Comment on above: Performed By: #### B MP #### [facility] [address] [place] [address] Dr. Nidhi Dawn Urea nitrogen/Creatinine [Mass ratio] 25.0 mg/mg Normal [facility] Comment on above: Performed By: #### B MP #### [facility] [address] [place] [address] Dr. Nidhi Dawn CBC AUTO DIFFon 04-02-2022 BASO # 0.0 103/ul Normal 0.0-0.1 [facility] Comment on above: Performed By: #### C BC #### [facility] [address] [place] [address] Dr. Nidhi Dawn Basophils/100 WBC (Bld) 0.3 % Normal 0.2-2.0 [facility] Comment on above: Performed By: #### C BC #### [facility] [address] [place] [address] Dr. Nidhi Dawn EO # 0.1 103/ul Normal 0.0-0.7 [facility] Comment on above: Performed By: #### C BC #### [facility] [address] [place] [address] Dr. Nidhi Dawn Eosinophils/100 WBC (Bld) 0.8 % Critically low 0.9-7.0 [facility] Comment on above: Performed By: #### C BC #### [facility] [address] [place] [address] Dr. Nidhi Dawn Erythrocyte distribution width (RBC) [Ratio] 13.8 % Normal 11.0-15.0 [facility] Comment on above: Performed By: #### C BC #### [facility] [address] [place] [address] Dr. Nidhi Dawn Hematocrit (Bld) [Volume fraction] 30.1 % Critically low 36.0-48.0 [facility] Comment on above: Performed By: #### C BC #### [facility] [address] [place] [address] Dr. Nidhi Dawn Hemoglobin (Bld) [Mass/Vol] 10.1 g/dL Critically low 12.0-16.0 [facility] Comment on above: Performed By: #### C BC #### [facility] [address] [place] [address] Dr. Nidhi Dawn IG # 0.03 10e3/ul Normal 0.00-0.03 [facility] Comment on above: Performed By: #### C BC #### [facility] [address] [place] [address] Dr. Nidhi Dawn IG % 0.3 % Normal 0.0-0.5 [facility] Comment on above: Performed By: #### C BC #### [facility] [address] [place] [address] Dr. Nidhi Dawn LYMPH # 1.0 103/ul Critically low 1.2-3.8 [facility] Comment on above: Performed By: #### C BC #### [facility] [address] [place] [address] Dr. Nidhi Dawn Lymphocytes/100 WBC (Bld) 10.6 % Critically low 20.5-60.0 [facility] Comment on above: Performed By: #### C BC #### [facility] [address] [place] [address] Dr. Nidhi Dawn MANUAL DIFF REQ NO Normal [facility] Comment on above: Performed By: #### C BC #### [facility] [address] [place] [address] Dr. Nidhi Danw MCH (RBC) [Entitic mass] 30.7 pg Normal 26.7-34.0 [facility] Comment on above: Performed By: #### C BC #### [facility] [address] [place] [address] Dr. Nidhi Dawn MCHC (RBC) [Mass/Vol] 33.6 g/dL Normal 29.9-35.2 [facility] Comment on above: Performed By: #### C BC #### [facility] [address] [place] [address] Dr. Nidhi Dawn MCV (RBC) [Entitic vol] 91.5 fL Normal 81.0-99.0 [facility] Comment on above: Performed By: #### C BC #### [facility] [address] [place] [address] Dr. Nidhi Dawn MONO # 1.0 103/ul Critically high 0.3-0.8 [facility] Comment on above: Performed By: #### C BC #### [facility] [address] [place] [address] Dr. Nidhi Dawn Monocytes/100 WBC (Bld) 10.3 % Normal 1.7-12.0 [facility] Comment on above: Performed By: #### C BC #### [facility] [address] [place] [address] Dr. Nidhi Dawn NEUT # 7.4 103/ul Critically high 1.4-6.5 [facility] Comment on above: Performed By: #### C BC #### [facility] [address] [place] [address] Dr. Nidhi Dawn Neutrophils/100 WBC (Bld) 77.7 % Critically high 43.0-75.0 [facility] Comment on above: Performed By: #### C BC #### [facility] [address] [place] [address] Dr. Nidhi Dawn Platelet mean volume (Bld) [Entitic vol] 10.0 fL Normal 9.5-13.5 [facility] Comment on above: Performed By: #### C BC #### [facility] [address] [place] [address] Dr. Nidhi Dawn PLT 175 103/ul Normal 150-450 [facility] Comment on above: Performed By: #### C BC #### [facility] [address] [place] [address] Dr. Nidhi Dawn RBC 3.29 106/ul Critically low 4.20-5.40 [facility] Comment on above: Performed By: #### C BC #### [facility] [address] [place] [address] Dr. Nidhi Dawn WBC 9.5 103/ul Normal 4.0-11.0 [facility] Comment on above: Performed By: #### C BC #### [facility] [address] [place] [address] Dr. Nidhi HARDIN URINE PROFILEon 2 Bilirubin Ql (U) Negative Normal NEGATIVE [facility] Comment on above: Performed By: #### C MP, CMADM #### [facility] [address] [place] [address] Dr. Nidhi Dawn Clarity (U) CLEAR Normal CLEAR [facility] Comment on above: Performed By: #### C MP, CMADM #### [facility] [address] [place] [address] Dr. Nidhi Dawn Color (U) YELLOW Normal YELLOW [facility] Comment on above: Performed By: #### C MP, CMADM #### [facility] [address] [place] [address] Dr. Nidhi TERRAZAS A micrscopic examina tion will be performed if indicated. Normal [facility] Comment on above: Performed By: #### C MP, CMADM #### [facility] [address] [place] [address] Dr. Nidhi Dawn Glucose Ql (U) Negative Normal NEGATIVE [facility] Comment on above: Performed By: #### C MP, CMADM #### [facility] [address] [place] [address] Dr. Nidhi Dawn Hemoglobin Ql (U) MODERATE Abnormal NEGATIVE [facility] Comment on above: Performed By: #### C MP, CMADM #### [facility] [address] [place] [address] Dr. Nidhi Dawn Ketones Ql (U) TRACE Abnormal NEGATIVE [facility] Comment on above: Performed By: #### C MP, CMADM #### [facility] [address] [place] [address] Dr. Nidhi Dawn LEUKOCYTES MODERATE Abnormal NEGATIVE [facility] Comment on above: Performed By: #### C MP, CMADM #### [facility] [address] [place] [address] Dr. Nidhi Dawn Nitrite Ql (U) Positive Abnormal NEGATIVE [facility] Comment on above: Performed By: #### C MP, CMADM #### [facility] [address] [place] [address] Dr. Nidhi Dawn pH (U) [pH] Abnormal 5-9 [facility] Comment on above: Performed By: #### C DONA, LEONCIODM #### [facility] [address] [place] [address] Dr. Nidhi Dawn Protein (U) [Mass/Vol] 100 mg/dL Abnormal NEGAT GRIFFIN/ TRACE [facility] Comment on above: Performed By: #### C DONA, LEONCIODM #### [facility] [address] [place] [address] Dr. Nidhi Dawn SPEC GRAVITY <=1.005 Abnormal 1.005-<=1.0 25 [facility] Comment on above: Performed By: #### C HELENA CARCAMO #### [facility] [address] [place] [address] Dr. Nidhi Dawn UR MICRO IND INDICATED Normal [facility] Comment on above: Performed By: #### C HELENA CARCAMO #### [facility] [address] [place] [address] Dr. Nidhi Dawn Urobilinogen Qn (U) 1.0 {Lawrence'U}/dL Normal 0.2 - 1. 0 [facility] Comment on above: Performed By: #### C HELENA CARCAMO #### [facility] [address] [place] [address] Dr. Nidhi Dawn FREE T3on 04-02-2022 FREE T3 1.84 pg/mlL Critically low 2.18-3.98 [facility] Comment on above: Performed By: #### C BC #### [facility] [address] [place] [address] Dr. Nidhi Dawn PROF CHEM 8 (BAS METB)on Anion gap [Moles/Vol] 10.9 mmol/L Normal [facility] Comment on above: Performed By: #### C BC #### [facility] [address] [place] [address] Dr. Nidhi Dawn Calcium [Mass/Vol] 8.6 mg/dL Normal 8.5-10.1 [facility] Comment on above: Performed By: #### C BC #### [facility] [address] [place] [address] Dr. Nidhi Dawn Chloride [Moles/Vol] 102 mmol/L Normal 98-107 [facility] Comment on above: Performed By: #### C BC #### [facility] [address] [place] [address] [address] Nidhi Dawn CO2 [Moles/Vol] 24.9 mmol/L Normal 21.0-32.0 [facility] Comment on above: Performed By: #### C BC #### [facility] [address] [place] [address] Dr. Nidhi Dawn Creatinine [Mass/Vol] 0.42 mg/dL Critically low 0.55-1.02 [facility] Comment on above: Performed By: #### C BC #### [facility] [address] [place] [address] Dr. Nidhi Dawn EGFR-AF UZBEK >60 Normal >=60 [facility] Comment on above: Performed By: #### C BC #### [facility] [address] [place] [address] Dr. Nidhi Dawn EGFR-NON AF UZBEK >60 Normal >=60 [facility] Comment on above: Performed By: #### C BC #### [facility] [address] [place] [address] Dr. Nidhi Dawn Glucose [Mass/Vol] 103 mg/dL Normal 74-106 [facility] Comment on above: Performed By: #### C BC #### [facility] [address] [place] [address] Dr. Nidhi aDwn Potassium [Moles/Vol] 3.8 mmol/L Normal 3.5-5.1 [facility] Comment on above: Performed By: #### C BC #### [facility] [address] [place] [address] Dr. Nidhi Dawn Sodium [Moles/Vol] 134 mmol/L Critically low 136-145 Th [facility] Comment on above: Performed By: #### C BC #### [facility] [address] [place] [address] Dr. Nidhi Dawn Urea nitrogen [Mass/Vol] 14.0 mg/dL Normal 7.0-18.0 [facility] Comment on above: Performed By: #### C BC #### [facility] [address] [place] [address] Dr. Nidhi Dawn Urea nitrogen/Creatinine [Mass ratio] 33.3 mg/mg Normal [facility] Comment on above: Performed By: #### C BC #### [facility] [address] [place] [address] Dr. Nidhi Dawn URINE MICROSCOPIC ONLYon BACTERIA MODERATE Abnormal NONE SEEN The [facility] Comment on above: Performed By: #### C MP, CMADM #### [facility] [address] [place] [address] Dr. Nidhi Dawn Bacteria identified Cx Nom (U) INDICATED Normal [facility] Comment on above: Performed By: #### C MP, CMADM #### [facility] [address] [place] [address] Dr. Nidhi Dawn CAST NONE SEEN Normal NONE SEEN [facility] Comment on above: Performed By: #### C MP, CMADM #### [facility] [address] [place] [address] Dr. Nidhi Dawn Crystals LM Nom (Urine sed) NONE SEEN Normal NONE SEEN [facility] Comment on above: Performed By: #### C MP, CMADM #### [facility] [address] [place] [address] Dr. Nidhi Dawn Epithelial cells LM Ql (Urine sed) RARE Normal NONE SEEN /RARE [facility] Comment on above: Performed By: #### C MP, CMADM #### [facility] [address] [place] [address] Dr. Nidhi Dawn MUCOUS TRACE Abnormal NONE SEEN The [facility] Comment on above: Performed By: #### C MP, CMADM #### [facility] [address] [place] [address] Dr. Nidhi Dawn RBC 5-10 Abnormal 0-2 [facility] Comment on above: Performed By: #### C MP, CMADM #### [facility] [address] [place] [address] Dr. Nidhi Dawn WBC 10-20 Abnormal NONE SEEN [facility] Comment on above: Performed By: #### C MP, CMADM #### [facility] [address] [place] [address] Dr. Nidhi Dawn CBC AUTO DIFFon 04-01-2022 BASO # 0.0 103/ul Normal 0.0-0.1 [facility] Comment on above: Performed By: #### C BC #### [facility] [address] [place] [address] Dr. Nidhi Dawn Basophils/100 WBC (Bld) 0.1 % Critically low 0.2-2.0 [facility] Comment on above: Performed By: #### C BC #### [facility] [address] [place] [address] Dr. Nidhi Dawn EO # 0.0 103/ul Normal 0.0-0.7 [facility] Comment on above: Performed By: #### C BC #### [facility] [address] [place] [address] Dr. Nidhi Dawn Eosinophils/100 WBC (Bld) 0.1 % Critically low 0.9-7.0 [facility] Comment on above: Performed By: #### C BC #### [facility] [address] [place] [address] Dr. Nidhi Dawn Erythrocyte distribution width (RBC) [Ratio] 13.9 % Normal 11.0-15.0 [facility] Comment on above: Performed By: #### C BC #### [facility] [address] [place] [address] Dr. Nidhi Dawn Hematocrit (Bld) [Volume fraction] 31.4 % Critically low 36.0-48.0 [facility] Comment on above: Performed By: #### C BC #### [facility] [address] [place] [address] Dr. Nidhi Dawn Hemoglobin (Bld) [Mass/Vol] 10.3 g/dL Critically low 12.0-16.0 [facility] Comment on above: Performed By: #### C BC #### [facility] [address] [place] [address] Dr. Nidhi Dawn IG # 0.03 10e3/ul Normal 0.00-0.03 [facility] Comment on above: Performed By: #### C BC #### [facility] [address] [place] [address] Dr. Nidhi Dawn IG % 0.3 % Normal 0.0-0.5 [facility] Comment on above: Performed By: #### C BC #### [facility] [address] [place] [address] Dr. Nidhi Dawn LYMPH # 1.3 103/ul Normal 1.2-3.8 [facility] Comment on above: Performed By: #### C BC #### [facility] [address] [place] [address] Dr. Nidhi Dawn Lymphocytes/100 WBC (Bld) 13.5 % Critically low 20.5-60.0 [facility] Comment on above: Performed By: #### C BC #### [facility] [address] [place] [address] Dr. Nidhi Dawn MANUAL DIFF REQ NO Normal [facility] Comment on above: Performed By: #### C BC #### [facility] [address] [place] [address] Dr. Nidhi Dawn MCH (RBC) [Entitic mass] 30.3 pg Normal 26.7-34.0 [facility] Comment on above: Performed By: #### C BC #### [facility] [address] [place] [address] Dr. Nidhi Dawn MCHC (RBC) [Mass/Vol] 32.8 g/dL Normal 29.9-35.2 [facility] Comment on above: Performed By: #### C BC #### [facility] [address] [place] [address] Dr. Nidhi Dawn MCV (RBC) [Entitic vol] 92.4 fL Normal 81.0-99.0 [facility] Comment on above: Performed By: #### C BC #### [facility] [address] [place] [address] Dr. Nidhi Dawn MONO # 1.1 103/ul Critically high 0.3-0.8 [facility] Comment on above: Performed By: #### C BC #### [facility] [address] [place] [address] Dr. Nidhi Dawn Monocytes/100 WBC (Bld) 11.1 % Normal 1.7-12.0 [facility] Comment on above: Performed By: #### C BC #### [facility] [address] [place] [address] Dr. Nidhi Dawn NEUT # 7.4 103/ul Critically high 1.4-6.5 [facility] Comment on above: Performed By: #### C BC #### [facility] [address] [place] [address] Dr. Nidhi Dawn Neutrophils/100 WBC (Bld) 74.9 % Normal 43.0-75.0 [facility] Comment on above: Performed By: #### C BC #### [facility] [address] [place] [address] Dr. Nidhi Dawn Platelet mean volume (Bld) [Entitic vol] 9.9 fL Normal 9.5-13.5 [facility] Comment on above: Performed By: #### C BC #### [facility] [address] [place] [address] Dr. Nidhi Dawn PLT 219 103/ul Normal 150-450 [facility] Comment on above: Performed By: #### C BC #### [facility] [address] [place] [address] Dr. Nidhi Dawn RBC 3.40 106/ul Critically low 4.20-5.40 [facility] Comment on above: Performed By: #### C BC #### [facility] [address] [place] [address] Dr. Nidhi Dawn WBC 9.9 103/ul Normal 4.0-11.0 [facility] Comment on above: Performed By: #### C BC #### [facility] [address] [place] [address] Dr. Nidhi Dawn PROF CHEM 8 (BAS METB)on Anion gap [Moles/Vol] 9.7 mmol/L Normal [facility] Comment on above: Performed By: #### B MP #### [facility] [address] [place] [address] Dr. Nidhi Dawn Calcium [Mass/Vol] 8.5 mg/dL Normal 8.5-10.1 [facility] Comment on above: Performed By: #### B MP #### [facility] [address] [place] [address] Dr. Nidhi Dawn Chloride [Moles/Vol] 102 mmol/L Normal 98-107 [facility] Comment on above: Performed By: #### B MP #### [facility] [address] [place] [address] Dr. Nidhi Dawn CO2 [Moles/Vol] 28.8 mmol/L Normal 21.0-32.0 [facility] Comment on above: Performed By: #### B MP #### [facility] [address] [place] [address] Dr. Nidhi Dawn Creatinine [Mass/Vol] 0.54 mg/dL Critically low 0.55-1.02 [facility] Comment on above: Performed By: #### B MP #### [facility] [address] [place] [address] Dr. Nidhi Dawn EGFR-AF UZBEK >60 Normal >=60 [facility] Comment on above: Performed By: #### B MP #### [facility] [address] [place] [address] Dr. Nidhi Dawn EGFR-NON AF UZBEK >60 Normal >=60 [facility] Comment on above: Performed By: #### B MP #### [facility] [address] [place] [address] Dr. Nidhi Dawn Glucose [Mass/Vol] 108 mg/dL Critically high 74-106 [facility] Comment on above: Performed By: #### B MP #### [facility] [address] [place] [address] Dr. Nidhi Dawn Potassium [Moles/Vol] 3.5 mmol/L Normal 3.5-5.1 [facility] Comment on above: Performed By: #### B MP #### [facility] [address] [address] [address] Nidhi Dawn Sodium [Moles/Vol] 137 mmol/L Normal 136-145 [facility] Comment on above: Performed By: #### B MP #### [facility] [address] [address] [address] Nidhi Dawn Urea nitrogen [Mass/Vol] 14.0 mg/dL Normal 7.0-18.0 [facility] Comment on above: Performed By: #### B MP #### [facility] [address] [place] [address] Dr. Nidhi Dawn Urea nitrogen/Creatinine [Mass ratio] 25.9 mg/mg Normal [facility] Comment on above: Performed By: #### B MP #### [facility] [address] [place] [address] Dr. Nidhi Dawn CARDIAC CELESTINO ADMITon 022 CK [Catalytic activity/Vol] 60 U/L Normal 26-192 [facility] Comment on above: Performed By: #### C BC #### [facility] [address] [place] [address] Dr. Nidhi Dawn CK.MB [Mass/Vol] 2.29 ng/mL Normal <=3.60 [facility] Comment on above: Performed By: #### C BC #### [facility] [address] [place] [address] Dr. Nidhi Dawn HSTROP 5.8 pg/mL Normal 4.0-51.3 [facility] Comment on above: Result Comment: CUT- OFF POINTS HAVE BEEN ESTABLISHED BASED ON THE FOURTH UNIVERSAL DEFINITIONS OF MYOCARDIAL INFARCTION. THE UPPER REFERENCE LIMIT (URL) OF TROPONIN, DEFINED THE 99TH PERCENTILE OF cTnI DISTRIBUTION IN A REFERENCE POPULATION, HAS BEEN CONFIRMED THE DECISION THRESHOLD FOR [place] DIAGNOSIS. Performed By: #### C BC #### [facility] [address] [place] [address] Dr. Nidhi Dawn BOBBY 63 ng/mL Normal 9-82 [facility] Comment on above: Performed By: #### C BC #### [facility] [address] [place] [address] Dr. Nidhi Dawn CBC AUTO DIFFon 03-31-2022 BASO # 0.0 103/ul Normal 0.0-0.1 [facility] Comment on above: Performed By: #### C BC #### [facility] [address] [place] [address] Dr. Nidhi Dawn Basophils/100 WBC (Bld) 0.3 % Normal 0.2-2.0 [facility] Comment on above: Performed By: #### C BC #### [facility] [address] [place] [address] Dr. Nidhi Dawn EO # 0.0 103/ul Normal 0.0-0.7 [facility] Comment on above: Performed By: #### C BC #### [facility] [address] [place] [address] Dr. Nidhi Dawn Eosinophils/100 WBC (Bld) 0.3 % Critically low 0.9-7.0 [facility] Comment on above: Performed By: #### C BC #### [facility] [address] [place] [address] Dr. Nidhi Dawn Erythrocyte distribution width (RBC) [Ratio] 13.8 % Normal 11.0-15.0 [facility] Comment on above: Performed By: #### C BC #### [facility] [address] [place] [address] Dr. Nidhi Dawn Hematocrit (Bld) [Volume fraction] 39.3 % Normal 36.0-48.0 [facility] Comment on above: Performed By: #### C BC #### [facility] [address] [place] [address] Dr. Nidhi Dawn Hemoglobin (Bld) [Mass/Vol] 12.8 g/dL Normal 12.0-16.0 [facility] Comment on above: Performed By: #### C BC #### [facility] [address] [place] [address] Dr. Nidhi Dawn IG # 0.10 10e3/ul Critically high 0.00-0.03 [facility] Comment on above: Performed By: #### C BC #### [facility] [address] [place] [address] Dr. Nidhi Dawn IG % 0.8 % Critically high 0.0-0.5 [facility] Comment on above: Performed By: #### C BC #### [facility] [address] [place] [address] Dr. Nidhi Dawn LYMPH # 1.1 103/ul Critically low 1.2-3.8 [facility] Comment on above: Performed By: #### C BC #### [facility] [address] [place] [address] Dr. Nidhi Dawn Lymphocytes/100 WBC (Bld) 9.3 % Critically low 20.5-60.0 [facility] Comment on above: Performed By: #### C BC #### [facility] [address] [place] [address] Dr. Nidhi Dawn MANUAL DIFF REQ NO Normal [facility] Comment on above: Performed By: #### C BC #### [facility] [address] [place] [address] Dr. Nidhi Dawn MCH (RBC) [Entitic mass] 30.0 pg Normal 26.7-34.0 [facility] Comment on above: Performed By: #### C BC #### [facility] [address] [place] [address] Dr. Nidhi Dawn MCHC (RBC) [Mass/Vol] 32.6 g/dL Normal 29.9-35.2 [facility] Comment on above: Performed By: #### C BC #### [facility] [address] [place] [address] Dr. Nidhi Dawn MCV (RBC) [Entitic vol] 92.3 fL Normal 81.0-99.0 [facility] Comment on above: Performed By: #### C BC #### [facility] [address] [place] [address] Dr. Nidhi Dawn MONO # 0.8 103/ul Normal 0.3-0.8 [facility] Comment on above: Performed By: #### C BC #### [facility] [address] [place] [address] Dr. Nidhi Dawn Monocytes/100 WBC (Bld) 6.6 % Normal 1.7-12.0 [facility] Comment on above: Performed By: #### C BC #### [facility] [address] [place] [address] Dr. Nidhi Dawn NEUT # 9.8 103/ul Critically high 1.4-6.5 [facility] Comment on above: Performed By: #### C BC #### [facility] [address] [place] [address] Dr. Nidhi Dawn Neutrophils/100 WBC (Bld) 82.7 % Critically high 43.0-75.0 [facility] Comment on above: Performed By: #### C BC #### [facility] [address] [place] [address] Dr. Nidhi Dawn Platelet mean volume (Bld) [Entitic vol] 9.3 fL Critically low 9.5-13.5 [facility] Comment on above: Performed By: #### C BC #### [facility] [address] [place] [address] Dr. Nidhi Dawn PLT 284 103/ul Normal 150-450 [facility] Comment on above: Performed By: #### C BC #### [facility] [address] [place] [address] Dr. Nidhi Dawn RBC 4.26 106/ul Normal 4.20-5.40 [facility] Comment on above: Performed By: #### C BC #### [facility] [address] [place] [address] Dr. Nidhi Dawn WBC 11.8 103/ul Critically high 4.0-11.0 [facility] Comment on above: Performed By: #### C BC #### [facility] [address] [place], [place] [id number] Dr. Nidhi Dawn CT CHEST W CONon [...] by: TAYLOR PENA Date: 2022-03-31 14:36 Normal [facility] CT CSPINE WO CONon CT CSPINE WO [...] by: TAYLOR PENA Date: 2022-03-31 14:48 Normal The [facility] CT HEAD WO CONon 03-31-2022 CT HEAD [...] TAYLOR PENA Date: 2022-03-31 14:11 Normal The [facility] CT LSPINE WO CONon 2 CT LSPINE [...] TAYLOR PENA Date: 2022-03-31 14:27 Normal [facility]on SARS-CoV-2 (COVID-19) RNA COLLINS+probe Ql (Unsp spec) Not detected Normal NOT DETECTED The [facility] Comment on above: Result Comment: When diagnostic [...] for this test is supported by the [place] of Health and Human Service's declaration that [...] longer be used). Performed By: #### C VDTB #### [facility] [address] [place] [address] Dr. Nidhi Dawn PROF 14(COMP METB)on 022 Albumin [Mass/Vol] 3.7 g/dL Normal 3.4-5.0 [facility] Comment on above: Performed By: #### C BC #### [facility] [address] [place] [address] Dr. Nidhi Dawn Albumin/Globulin [Mass ratio] 1.2 {ratio} Normal [facility] Comment on above: Performed By: #### C BC #### [facility] [address] [place] [address] Dr. Nidhi Dawn ALP [Catalytic activity/Vol] 55 U/L Normal 46-116 [facility] Comment on above: Performed By: #### C BC #### [facility] [address] [place] [address] Dr. Nidhi Dawn ALT [Catalytic activity/Vol] 24 U/L Normal 14-59 [facility] Comment on above: Performed By: #### C BC #### [facility] [address] [place] [address] Dr. Nidhi Dawn Anion gap [Moles/Vol] 9.2 mmol/L Normal [facility] Comment on above: Performed By: #### C BC #### [facility] [address] [place] [address] Dr. Nidhi Dawn AST [Catalytic activity/Vol] 19 U/L Normal 15-37 [facility] Comment on above: Performed By: #### C BC #### [facility] [address] [place] [address] Dr. Nidhi Dawn Bilirubin [Mass/Vol] 0.5 mg/dL Normal 0.2-1.0 [facility] Comment on above: Performed By: #### C BC #### [facility] [address] [place] [address] Dr. Nidhi Dawn Calcium [Mass/Vol] 9.1 mg/dL Normal 8.5-10.1 [facility] Comment on above: Performed By: #### C BC #### [facility] [address] [place] [address] Dr. Nidhi Dawn Chloride [Moles/Vol] 103 mmol/L Normal 98-107 [facility] Comment on above: Performed By: #### C BC #### [facility] [address] [place] [address] Dr. Nidhi Dawn CO2 [Moles/Vol] 28.0 mmol/L Normal 21.0-32.0 [facility] Comment on above: Performed By: #### C BC #### [facility] [address] [place] [address] Dr. Nidhi Dawn Creatinine [Mass/Vol] 0.56 mg/dL Normal 0.55-1.02 [facility] Comment on above: Performed By: #### C BC #### [facility] [address] [place] [address] Dr. Nidhi Dawn EGFR-AF UZBEK >60 Normal >=60 [facility] Comment on above: Performed By: #### C BC #### [facility] [address] [place] [address] Dr. Nidhi Dawn EGFR-NON AF UZBEK >60 Normal >=60 [facility] Comment on above: Performed By: #### C BC #### [facility] [address] [place] [address] Dr. Nidhi Dawn Globulin (S) [Mass/Vol] 3.2 g/dL Normal [facility] Comment on above: Performed By: #### C BC #### [facility] [address] [place] [address] Dr. Nidhi Dawn Glucose [Mass/Vol] 140 mg/dL Critically high 74-106 [facility] Comment on above: Performed By: #### C BC #### [facility] [address] [place] [address] Dr. Nidhi Dawn Potassium [Moles/Vol] 3.2 mmol/L Critically low 3.5-5.1 [facility] Comment on above: Performed By: #### C BC #### [facility] [address] [place] [address] Dr. Nidhi Dawn Protein [Mass/Vol] 6.9 g/dL Normal 6.4-8.2 [facility] Comment on above: Performed By: #### C BC #### [facility] [address] [address] [address] Nidhi Dawn Sodium [Moles/Vol] 137 mmol/L Normal 136-145 [facility] Comment on above: Performed By: #### C BC #### [facility] [address] [place] [address] Dr. Nidhi Dawn Urea nitrogen [Mass/Vol] 13.0 mg/dL Normal 7.0-18.0 [facility] Comment on above: Performed By: #### C BC #### [facility] [address] [place] [address] Dr. Nidhi Dawn Urea nitrogen/Creatinine [Mass ratio] 23.2 mg/mg Normal The [facility] Comment on above: Performed By: #### C BC #### [facility] [address] [place] [address] Dr. Nidhi Dawn PROTIMEon 03-31-2022 INR Coag (PPP) [Relative time] 1.01 {INR} Normal [facility] Comment on above: Performed By: #### C BC #### [facility] [address] [place] [address] Dr. Nidhi Dawn INR GUIDELINES SEE BELOW Normal The [facility] Comment on above: Result Comment: BASSEM RED INR: 2.0 - 3.0 CONDITIONS NOT LISTED BELOW 2.5 - 3.5 FOR PROSTHETIC HEART VALVE REPLACEMENT 2.5 - 3.5 RECURRENT THROMBOSIS Performed By: #### C BC #### [facility] [address] [place] [address] Dr. Nidhi Dawn PT Coag (PPP) [Time] 10.9 s Normal 9.0-11.6 [facility] Comment on above: Performed By: #### C BC #### [facility] [address] [place], [place] [address] Dr. Nidhi Dawn PTTon 03-31-2022 aPTT Coag (Bld) [Time] 25.7 s Normal 22.3-36.2 Th e [facility] Comment on above: Performed By: #### C BC #### [facility] [address] [id number] Nidhi Dawn TSHon 03-31-2022 TSH 3.763 uIU/mL Critically high 0.358-3.740 [facility] Comment on above: Performed By: #### C BC #### [facility] [address] [address] [address] Nidhi Dawn XR HIP RT 2 [...] by: AVEL BUENO Date: 2022-03-31 14:33 Normal The [facility] XR HIP RT 2 3V W PELVISon [...] by: KANDIS KENNY Date: 2021-12-14 21:43 Normal [facility] CT PELVIS WO CONon 2 CT PELVIS [...] by: ISRAEL JUÁREZ Date: 2021-12-13 18:51 Normal [facility] Vital Signs Date Time Vital Sign Value Performing Clinician Facility 09-27-2023 15:42-0500 Body height 149.9 cm Ashley Olveraseth PAULSONSponduuTRANSFORMER MECHANIC Work Phone: [facility] 09-27-2023 15:42-0500 Body mass index (BMI) [Ratio] 19.79 kg/m2 [facility] Work Phone: [facility] 09-27-2023 15:42-0500 Body temperature 98.01 [degF] Ashley [facility]a [facility] Work Phone: [facility] 09-27-2023 15:42-0500 Body weight 44.45 kg Ashley Wade [facility] Work Phone: [facility] 09-27-2023 15:42-0500 Diastolic blood pressure 80 mm[Hg] Ashley Olvera INSPECTOR EYEGLASS FRAMES-TRANSFORMER MECHANIC Work Phone: [facility] 09-27-2023 15:42-0500 Heart rate 59 /min Ashley Olvera INSPECTOR EYEGLASS FRAMES-TRANSFORMER MECHANIC Work Phone: [facility] 09-27-2023 15:42-0500 Respiratory rate 18 /min Ashley Olvera INSPECTOR EYEGLASS FRAMES-TRANSFORMER MECHANIC Work Phone: [facility] 09-27-2023 15:42-0500 SaO2% (BldA) [Mass fraction] 93 % Ashley Olvera INSPECTOR EYEGLASS FRAMES-TRANSFORMER MECHANIC Work Phone: [facility] 09-27-2023 15:42-0500 Systolic blood pressure 122 mm[Hg] Ashley Olvera INSPECTOR EYEGLASS FRAMES-TRANSFORMER MECHANIC Work Phone: [facility] 10-03-2022 16:00-0400 Body temperature 97.6 [degF] LUBRICATING ENGINEER-C Ashley Olvera Work Phone: [facility] 10-03-2022 16:00-0400 Diastolic blood pressure 79 mm[Hg] LUBRICATING ENGINEER-C Ashley Olvera Work Phone: [facility] 10-03-2022 16:00-0400 Heart rate 77 /min LUBRICATING ENGINEER-C Ashley Olvera Work Phone: [facility] 10-03-2022 16:00-0400 Respiratory rate 16 /min LUBRICATING ENGINEER-C Ashley Olvera Work Phone: [facility] 10-03-2022 16:00-0400 SaO2% (BldA) [Mass fraction] 100 % LUBRICATING ENGINEER-C Ashley Olvera Work Phone: [facility] 10-03-2022 16:00-0400 Systolic blood pressure 156 mm[Hg] LUBRICATING ENGINEER-C Ashley Olvera Work Phone: [facility] 10-02-2022 20:00-0400 Inhaled oxygen flow rate 2 L/min LUBRICATING ENGINEER-Mino Olvera Work Phone: [facility] 09-29-2022 06:00-0500 Body weight 49 kg LUBRICATING ENGINEER-Mino Olvera Work Phone: [facility] 09-28-2022 16:10-0500 Body height 147.32 cm LUBRICATING ENGINEER-Mino Olvera Work Phone: [facility] 09-28-2022 16:10-0500 Body mass index (BMI) [Ratio] 18.6 kg/m2 LUBRICATING ENGINEER-Mino Olvera Work Phone: [facility] 12-13-2021 16:30-0400 Body height 152.4 cm Rylie Brooksmond Other [employer] Other 12-13-2021 16:30-0400 Body mass index (BMI) [Ratio] 19.33 kg/m2 Rylie Galvan Other [employer] Other 12-13-2021 16:30-0400 Body temperature 98 [degF] Rylie Galvan Other [employer] Other 12-13-2021 16:30-0400 Body weight 44.91 kg Rylie Brooksmond Other [employer] Other 12-13-2021 16:30-0400 Diastolic blood pressure 83 mm[Hg] Rylie Brooksmond Other [employer] Other 12-13-2021 16:30-0400 Respiratory rate 18 /min Rylie Brooksmond Other [employer] Other 12-13-2021 16:30-0400 SaO2% (BldA) [Mass fraction] 97 % Rylie Galvan Other [employer] Other 12-13-2021 16:30-0400 Systolic blood pressure 130 mm[Hg] Rylie Galvan Other [employer] Other Encounters Encounter Date Encounter Type Care Provider Facility Start: 09-27-2023 End: 09-27-2023 ambulatory [facility] Start: 09-27-2023 End: 09-27-2023 Office outpatient visit 15 minutes 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 ([facility]); Current moderate episode of major depressive disorder without prior episode ([facility]); Malignant neoplasm of colon, unspecified part of colon ([facility]) Start: 07-13-2023 End: 07-13-2023 ambulatory [facility] Start: 07-13-2023 Encounter for genera l adult medical examination without abnormal findings [facility] Start: 10-25-2022 End: 10-25-2022 ambulatory Leighton Valente Other [employer] Other Start: 10-25-2022 Telephone encounter Leighton Valente [facility] Start: 10-14-2022 End: 10-14-2022 ambulatory ASHLEY OLVERA Facility:[facility] Start: 09-28-2022 End: 10-03-2022 Evaluation and management of inpatient Leighton Valente Facility:[facility] Start: 09-28-2022 End: 10-03-2022 Evaluation and management of inpatient LUBRICATING ENGINEER-C Ashley Olvera Work Phone: [facility] Work Phone: Start: 09-27-2022 End: 03-08-2023 ambulatory JACIEL DIAB . Facility:[facility] Start: 05-02-2022 End: 05-02-2022 ambulatory ADELE NIYA . Facility:[facility] Start: 04-13-2022 Patient encounter procedure Storm Russell APRN.BATH MIXER Work Phone: [facility] Start: 04-13-2022 Progress Note Storm GARCIA RN.BATH MIXER Work Phone: [facility] Start: 04-08-2022 Patient encounter procedure Storm Russell APRN.BATH MIXER Work Phone: [facility] Start: 04-08-2022 Progress Note Storm GARCIA RN.BATH MIXER Work Phone: [facility] Department Start: 04-05-2022 Patient encounter procedure Debra Vásquez Work Phone: [facility] Start: 04-05-2022 Progress Note Itri A Fahad Work Phone: [facility] Start: 03-31-2022 End: 04-04-2022 Evaluation and management of inpatient DR GAB FONSECA . Facility:[facility] Start: 12-13-2021 End: 12-13-[address] BONIFACIO LEMOS . [employer] Other Start: 12-13-2021 Office outpatient vi sit 15 minutes Rylie Galvan [facility] Procedures Date Procedure Procedure Detail Performing Clinician Start: 09-27-2023 Follow-up visit Follow-up ASHLEY OLVERA Start: 09-27-2023 Adult depression screening assessment Ashley Olvera INSPECTOR EYEGLASS FRAMES-TRANSFORMER MECHANIC Work Phone: Start: 10-03-2022 Plain X-ray of left hip LUBRICATING ENGINEER-C Ashley Olvera Work Phone: Start: 09-28-2022 Plain X-ray of left hip LUBRICATING ENGINEER-C Ashley Olvera Work Phone: Start: 09-28-2022 Open reduction with internal fixation LUBRICATING ENGINEER-C Ashley Olvera Work Phone: Start: 09-28-2022 Plain X-ray of left femur LUBRICATING ENGINEER-C Ashley Olvera Work Phone: Start: 09-28-2022 Plain X-ray of left hip LUBRICATING ENGINEER-C Ashley Olvera Work Phone: Plan of Treatment Date Care Activity Detail Author Start: 06-14-2030 DTaP,Tdap and Td Vaccines (3 - Td or Tdap) DTaP,Tdap and Td Vaccines (3 - Td or Tdap) [facility] Start: 09-27-2024 Tobacco Screening Tobacco Screening [facility] Start: 09-26-2024 Adult BMI Screening Adult BMI Screening [facility] Start: 09-26-2024 Depression Screening Depression Screening [facility] Start: 09-26-2024 Fall Risk Screening Fall Risk Screening [facility] Start: 07-13-2024 Medicare Annual Wellness Visit Medicare Annual Wellness Visit [facility] Start: 03-20-2024 End: 03-20-2024 Patient encounter procedure 03/20/2024 11:20 AM EDT Office Visit [facility] [address] [place] [address] Ashley Olvera, INSPECTOR EYEGLASS FRAMES-TRANSFORMER MECHANIC [address] [place] [address] [facility] Start: 03-24-2023 COVID-19 Vaccine ( season) COVID-19 Vaccine ( season) [facility] Start: 10-03-2022 [facility] Start: 09-28-2022 [facility] Start: 09-28-2022 Consultation [facility] Start: 09-28-2022 Hospital admission [facility] Start: 03-24-2022 Influenza vaccination INFLUENZA (#1) [facility] Start: 07-24-2021 ADVANCE DIRECTIVE DISCUSSION ADVANCE DIRECTIVE DISCUSSION [facility] Start: 04-09-2019 DIABETES SCREEN DIABETES SCREEN [facility] Start: 2000 BONE DENSITY BONE DENSITY [facility] Start: 2000 PNEUMOCOCCAL: 65+ (1 - PCV) PNEUMOCOCCAL: 65+ (1 - PCV) [facility] Start: 1985 SHINGRIX VACCINE (1 of 2) SHINGRIX VACCINE (1 of 2) [facility] Start: 1954 Administration of varicella zoster vaccine Zoster (Shingles) Vaccine (1 of 2) [facility] Start: 1954 Urine microalbumin profile DTAP,TDAP,TD (1 - Tdap) [facility] Start: 03-10-1936 COVID-19 VACCINE (#1) COVID-19 VACCINE (#1) [facility] 25-hydroxyvitamin D2 [Mass/volume] in Serum or Plasma [facility] 25-hydroxyvitamin D3 [Mass/volume] in Serum or Plasma [facility] 25-Hydroxyvitamin D3+25-Hydroxyvitamin D2 [Mass/volume] in Serum or Plasma [facility] Patient referral [facility] Work Phone: XR Hip - left 2 Views [facility] Immunizations Immunization Date Immunization Notes Care Provider [facility] 04-11-2023 Influenza Vaccine, Quadrivalent, Adjuvanted Ashley Olvera INSPECTOR EYEGLASS FRAMES-TRANSFORMER MECHANIC Work Phone: [facility] 05-09-2022 influenza, seasonal, injectable Ashley Olvera INSPECTOR EYEGLASS FRAMES-TRANSFORMER MECHANIC Work Phone: [facility] 05-09-2022 pneumococcal polysaccharide vaccine, 23 valent Ashley Olvera INSPECTOR EYEGLASS FRAMES-TRANSFORMER MECHANIC Work Phone: [facility] 04-21-2022 Influenza Vaccine, Quadrivalent, Adjuvanted Ashley Olvera INSPECTOR EYEGLASS FRAMES-TRANSFORMER MECHANIC Work Phone: [facility] 12-06-2021 COVID-19, mRNA, LNP- S, PF, 30mcg/0.3mL Dose Ashley Olvera INSPECTOR EYEGLASS FRAMES-TRANSFORMER MECHANIC Work Phone: [facility] 11-01-2021 COVID-19, mRNA, LNP- S, PF, 30mcg/0.3mL Dose Ashley Olvera INSPECTOR EYEGLASS FRAMES-TRANSFORMER MECHANIC Work Phone: [facility] 05-17-2021 Influenza, High-dose , Quadrivalent Ashley Olvera INSPECTOR EYEGLASS FRAMES-TRANSFORMER MECHANIC Work Phone: [facility] 06-14-2020 diphtheria, tetanus toxoids and pertussis vaccine Ashley Olvera INSPECTOR EYEGLASS FRAMES-TRANSFORMER MECHANIC Work Phone: [facility] 05-12-2020 Influenza, High-dose , Quadrivalent Ashley Olvera INSPECTOR EYEGLASS FRAMES-TRANSFORMER MECHANIC Work Phone: [facility] 05-07-2019 influenza, high dose seasonal, preservative-free Ashley Olvera INSPECTOR EYEGLASS FRAMES-TRANSFORMER MECHANIC Work Phone: [facility] 04-17-2019 pneumococcal polysaccharide vaccine, 23 valent Ashley Olvera INSPECTOR EYEGLASS FRAMES-TRANSFORMER MECHANIC Work Phone: [facility] 05-07-2018 influenza, high dose seasonal, preservative-free Ashley Olvera INSPECTOR EYEGL[employer] FRAMES-TRANSFORMER MECHANIC Work Phone: [facility] 05-09-2017 influenza, injectabl e, quadrivalent, preservative free Ashley Olvera INSPECTOR EYEGLASS FRAMES-TRANSFORMER MECHANIC Work Phone: [facility] 01-05-2017 pneumococcal conjuga te vaccine, 13 valent Ashley Olvera INSPECTOR EYEGLASS [employer]AMES-TRANSFORMER MECHANIC Work Phone: [facility] 01-05-2017 tetanus toxoid, redu cristino diphtheria toxoid, and acellular pertussis vaccine, adsorbed Ashley Olvera INSPECTOR EYEGLASS FRAMES-TRANSFORMER MECHANIC Work Phone: [facility] 05-22-2015 influenza, injectabl e, quadrivalent, preservative free Ashley Olvera INSPECTOR EYEGLASS FRAMES-TRANSFORMER MECHANIC Work Phone: [facility] 04-21-2014 influenza, seasonal, injectable, preservative free Ashley Olvera INSPECTOR EYEGLASS FRAMES-TRANSFORMER MECHANIC Work Phone: [facility] 04-17-2013 influenza virus vacc ine, whole virus Ashley Olvera INSPECTOR EYEGLASS FRAMES-TRANSFORMER MECHANIC Work Phone: [facility] 06-28-2012 pneumococcal vaccine , unspecified formulation Ashley Olvera INSPECTOR EYEGLASS FRAMES-TRANSFORMER MECHANIC Work Phone: [facility] 04-24-2012 influenza virus vacc ine, whole virus Ashley Olvera INSPECTOR EYEGLASS FRAMES-TRANSFORMER MECHANIC Work Phone: [facility] 04-20-2011 influenza virus vacc ine, whole virus Ashley Olvera INSPECTOR EYEGLASS FRAMES-TRANSFORMER MECHANIC Work Phone: [facility] 05-05-2010 influenza virus vacc ine, whole virus Ashley Olvera INSPECTOR EYEGLASS FRAMES-TRANSFORMER MECHANIC Work Phone: [facility] 04-29-2009 influenza virus vacc ine, whole virus Ashley Olvera INSPECTOR EYEGLASS FRAMES-TRANSFORMER MECHANIC Work Phone: [facility] 05-09-2007 influenza virus vacc ine, whole virus Ashley Olvera INSPECTOR EYEGLASS FRAMES-TRANSFORMER MECHANIC Work Phone: [facility] Payers Date Payer Category Payer Medicare [id number] 2022 Self-pay 2016 Medicare [id number] 1959 Medicare [id number] 2.1 [id number] 1959 Private Health Insurance [id number] 1935 Unknown [id number] 2.16.84 [id number] 1935 Unknown [id number] 2.16.84 [id number] 1935 Unknown [id number] 2.16.84 [id number] 1935 Unknown [id number] 2.16.84 [id number] 1935 Unknown [id number] 2.16.84 [id number] 1935 Unknown [id number] 2.16.8 [id number] 1935 Unknown [id number] 2.16.84 [id number] Unknown [id number] 2.16.8 [id number] Social History Date Type Detail Facility Start: 08-04-2020 End: 09-28-2023 Sex Assigned At [facility] Start: 05-28-2014 End: 09-21-2022 Tobacco smoking status NHIS Never smoked tobacco [facility] Start: 10-25-2016 End: 09-28-2023 Alcohol intake Current drinker of alcohol (finding) [facility] Start: 1935 Sex Assigned At Not on file [facility] Start: 09-29-2022 Tobacco smoking stat us IDIS Unknown if ever smoked [facility] Start: 1935 Sex Assigned At Female F [facility] Start: 09-21-2022 Tobacco use and exposure Smokeless tobacco non-user [facility] Start: 08-04-2020 End: 09-28-2023 History of Social function [facility] Adolescent depressio n screening assessment 0 [facility] Goals Date Patient Goal Desired Activity /State Functional Status Date Assessment Result Facility 09-28-2022 Functional status Patient Not at Baseline [facility] Work Phone: Mental Status Date Assessment Result Facility 09-28-2022 Cognitive function Cognitive Sta tus Patient Not at Baseline [facility] Work Phone: Clinical Notes 12-13-2021 to 09-27-2023 Ashley Olvera APRN-TRANSFORMER MECHANIC - 09/27/2023 3:40 PM EST Note Date & Type Note Facility 09-27-2023 History of Present illness Narrative Images from the original note were not included. Yosef W [facility] [id number] SUBJECTIVE: Patient ID: Annamaria Garcia is a 88 y.o. female. Chief Complaint Patient presents with ER follow up. Rash on lower legs and face Is accompanied by her POA, nephew today. Nephew states she has a rash for over one month on lower legs. Rash on face started approximately 2 weeks ago. Was started on Medrol dose pack approximately 3 weeks ago. Rash did improve about 50% but returned worse. Family took her to [facility] ER last week for evaluation. Ordered another Medrol dose pack and clobetasol cream. Has not resolved. There is no drainage from rash. Patient does admit is itchy at times. Nephew does not believe she is using new detergents, creams, soaps, or body washes. Rash This is a recurrent problem. The current episode started more than 1 month ago. Location: legs and face. The rash is characterized by redness, scaling and itchiness. She was exposed to nothing. Pertinent negatives include no shortness of breath. Past treatments include moisturizer, oral steroids and topical steroids. The treatment provided mild relief. The following portions of the patient's history were reviewed and updated as appropriate: allergies, current medications, past family history, past medical history, past social history, past surgical history and problem list. Past Surgical History: Procedure Laterality Date CATARACT EXTRACTION, BILATERAL 07/24/2013 CHOLECYSTECTOMY COLECTOMY 07/24/2015 partial . colon cancer COLONOSCOPY 07/24/2015 EYE SURGERY Bilateral 07/24/2013 blephoplasty FRACTURE SURGERY Left Hip Past Medical History: Diagnosis Date B12 deficiency Colonic cancer ([facility]) s/p robotic resection. 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 Macular degeneration Menopausal state Osteoporosis 2018 dexa with worse t scores Vertigo Immunization History Administered Date(s) Administered COVID-19, mRNA, LNP-S, PF, 100mcg/0.5mL Dose 11/16/2020, 12/14/2020, 08/24/2021 COVID-19, mRNA, LNP-S, PF, 30mcg/0.3mL Dose 11/01/2021, 12/06/2021 DTP 06/14/2020 Influenza (IM) Preservative Free 04/21/2014 Influenza High Dose Preservative Free IM 05/07/2018, 05/07/2019 Influenza Vaccine, Quadrivalent, Adjuvanted 04/21/2022, 04/11/2023 Influenza Whole 05/09/2007, 04/29/2009, 05/05/2010, 04/20/2011, 04/24/2012, 04/17/2013 Influenza, High-dose, Quadrivalent 05/12/2020, 05/17/2021 Influenza, Im Trivalent Preservative 05/09/2022 Influenza, Injectable, quadrivalent (PF) 05/22/2015, 05/09/2017 Pneumococcal Conjugate 13-Valent 01/05/2017 Pneumococcal Polysaccharide 04/17/2019, 05/09/2022 Pneumococcal, Unspecified 06/28/2012 Tdap 01/05/2017 REVIEW OF SYSTEMS: Review of Systems HENT: Negative. Eyes: Negative for visual disturbance. Respiratory: Negative for chest tightness and shortness of breath. Cardiovascular: Negative for palpitations. Gastrointestinal: Negative. Endocrine: Negative. Genitourinary: Negative for menstrual problem and pelvic pain. Musculoskeletal: Negative. Skin: Positive for rash. Allergic/Immunologic: Negative. Neurological: Negative for syncope and facial asymmetry. Hematological: Does not bruise/bleed easily. Psychiatric/Behavioral: Negative. PHYSICAL EXAMINATION: Vitals: 09/27/23 1542 BP: 122/80 BP Site: Left Arm BP Postition: Sitting Pulse: 59 Resp: 18 Temp: 36.7 C (98 F) TempSrc: Oral SpO2: 93% Weight: 44.5 kg (98 lb) Height: 149.9 cm (4' 11 ) Physical Exam Vitals and nursing note reviewed. Constitutional: General: She is not in acute distress. Appearance: She is well-developed. She is not diaphoretic. HENT: Head: Normocephalic and atraumatic. Right Ear: Tympanic membrane and external ear normal. Left Ear: Tympanic membrane and external ear normal. Nose: Nose normal. Mouth/Throat: Mouth: Mucous membranes are moist. Pharynx: No oropharyngeal exudate. Eyes: General: Right eye: No discharge. Left eye: No discharge. Conjunctiva/sclera: Conjunctivae normal. Pupils: Pupils are equal, round, and reactive to light. Neck: Thyroid: No thyromegaly. Vascular: No JVD. Cardiovascular: Rate and Rhythm: Normal rate and regular rhythm. Heart sounds: Normal heart sounds. No murmur heard. No friction rub. No gallop. Pulmonary: Effort: Pulmonary effort is normal. Breath sounds: Normal breath sounds. Abdominal: General: Bowel sounds are normal. There is no distension. Palpations: Abdomen is soft. There is no mass. Tenderness: There is no abdominal tenderness. Musculoskeletal: General: Normal range of motion. Cervical back: Normal range of motion and neck supple. Comments: Red colored papules lower legs. Mild erythema of face. Lymphadenopathy: Cervical: No cervical adenopathy. Skin: General: Skin is warm and dry. Capillary Refill: Capillary refill takes less than 2 seconds. Findings: Rash present. Neurological: Mental Status: She is alert. Mental status is at baseline. Deep Tendon Reflexes: Reflexes are normal and symmetric. Psychiatric: Mood and Affect: Mood normal. Behavior: Behavior normal. ASSESSMENT/PLAN: Annamaria was seen today for er follow up. rash on lower legs and face. 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 Onset over one month ago. Not resolved with Medrol dose pack x2 or clobetasol. Excoriation on face started 2 weeks ago Finish medrol dose pack until gone. Continue clobetasol as directed. Apply thin layer of Aquaphor to face twice daily. Do not use any other lotions or creams to face. -Referral to dermatology Dementia. With depression. Days of sadness and behavior outbursts have stopped with sertraline. -Continue sertraline 25 mg oral daily Resides in assisted living with 24 hour supervision. Is now on lowest level of complex (ground floor) for safety. Depression: Not at risk (09/27/2023) PHQ-2 PHQ-2 Score: 0 Malignant neoplasm of colon History of colon cancer, approximately 2014. Was managed by [facility] and [facility]. She denies blood in stools, changes in stool patterns. ALL QUESTIONS ANSWERED Total time spent was 25 minutes: Preparing to see the patient (e.g., review of tests) Obtaining and/or reviewing separately obtained history Performing a medically appropriate examination and/or evaluation Counseling and educating the patient/family/caregiver Ordering medications, tests, or procedures Follow-up: 5 months Sooner if needed GAGE Guerrero 09/28/23 1358 [facility] Progress note Note Date/Time October 02, 2022 12:44pm [facility] [address] [place] [address] Hospitalist Progress Note Signed Patient: Annamaria Garcia MR#: [id number] : 1935 Acct:[id number] Age/Sex: 87 / F Adm Date: 3 Loc: 4N Room: [address] [place] [address] Type: ADM IN Attending Dr: Gordon You [...] formulated the plan of care and confirmed TRANSFORMER MECHANIC's written note. Documented By: Mimi Artis APRN 10/02/22 1241 Signed By: <Electronically signed by KHURRAM Artis> 10/02/22 1244 <Electronically signed by Gordon You MD> 10/02/220 [facility] Work Phone: 1(164) 360-696103-12-2023 Progress note Author Gordon You [facility] October 02, 2022 9:16pm Note Date/Time October 01, 2022 12: 12pm [facility] [address] [place] [address] Hospitalist Progress Note Signed Patient: Annamaria Garcia MR#: [id number] : 1935 Acct:[id number] Age/Sex: 87 / F Adm Date: 3 Loc: Room: [address] [place] [address] Type: ADM IN Attending Dr: Gordon You [...] the plan of care and confirmed the TRANSFORMER MECHANIC's written note. Documented By: Mimi Artis APRN 10/01/22 1207 Signed By: <Electronically signed by KHURRAM Artis> 10/01/22 1213 <Electronically signed by Gordon You MD> 10/02/22 211 [facility] Work Phone: 1(978) 879-782803-12-2023 Progress note Author Leighton Valente [facility] October 02, 2022 12:49pm Note Date/Time October 02, 2022 12: 43pm [facility] [address] [place] [address] Orthopedic Progress Note Signed Patient: Annamaria Garcia MR#: [id number] : 1935 Acct:[id number] Age/Sex: 87 / F Adm Date: 3 Loc: 4N Room: [address] [place] [address] Type: ADM IN Attending Dr: Gordon You [...] % (Auto) 72.4 Lymph % (Auto) 12.7 Foard % (Auto) 13.6 Eos % (Auto) 1.0 Baso % (Auto) 0.3 Nucleat RBC Rel Count 0.0 Neut # (Auto) 5.3 Lymph # (Auto) 0.9 L Foard # (Auto) 1.0 H Eos # (Auto) [...] <Electronically signed by MD Leighton Valente> 10/02/22 1249 [facility] Work Phone: 1(338) 421-386903-10-2023 Progress note Author Yani Cyr [facility] September 30, 2022 4:42pm Note Date/Time September 30, 2022 12: 30pm [facility] [address] [place] [address] Hospitalist Progress Note Signed Patient: Annamaria Garcia MR#: [id number] : 1935 Acct:[id number] Age/Sex: 87 / F Adm Date: 3 Loc: 4N Room: 1D7263-8 Type: ADM IN Attending Dr: Yani Cyr [...] signed by Yani Cyr MD> 09/30/22 1642 [facility] Work Phone: 1(476) 582-508303-09-2023 Progress note Author Leighton Valente [facility] September 29, 2022 12:30pm Note Date/Time September 29, 2022 7:53 am [facility] [address] [place], [place] [id number] Orthopedic Progress Note Signed Patient: Annamaria Garcia MR#: [id number] : 1935 Acct:[id number] Age/Sex: 87 / F Adm Date: 3 Loc: 4N Room: [address] [place] [address] Type: ADM IN Attending Dr: Adama Kothari [...] 04:49 08:12 POC Glucose 107 Vitamin B12 Assessment / Plan Assessment and plan (1) [...] signed by MD Leighton Valente> 09/29/22 1230 [facility] Work Phone: 1(688) 811-389603-09-2023 Consult note Author Leighton Valente [facility] September 29, 2022 7:45am Note Date/Time September 29, 2022 7:39 am [facility] [address] [place] [address] Orthopedic Consult Note Signed Patient: Annamaria Garcia MR#: [id number] : 1935 Acct:[id number] Age/Sex: 87 / F Adm Date: 3 Loc: 4N Room: 8A0421-0 Type: ADM IN Attending Dr: Adama Kothari MD Copies to: MD Leighton Paul MD Valerie J Castillo NP-C~ History of Present Illness HPI Consult date: 09/29/2022 Requesting provider: Adama Kothari MD History of present illness: Patient is an 87-year-old female who sustained a fall with complaints of left hip pain.. She [facility] [place] [facility]. [facility] have demonstrated displaced left [...] % (Auto) 87.9, Lymph % (Auto) 4.7, Foard % (Auto) 7.4, Eos % (Auto)0.0, Baso % (Auto) 0.0, Nucleat RBC Rel Count 0.1, Neut # (Auto) 10.7 H, Lymph #(Auto) 0.6 L, Foard # (Auto) 0.9 H, Eos # (Auto) [...] signed by MD Leighton Valente> 09/29/22 0745 [facility] Work Phone: 1(164) 927-798503-08-2023 History and physical note Author Juliet Green [facility] September 28, 2022 9:41pm Note Date/Time September 28, 2022 4:41 am [facility] [address] [place] [address] Hospitalist H&P Signed Patient: Annamaria Garcia MR#: [id number] : 1935 Acct:[id number] Age/Sex: 87 / F Adm Date: 3 Loc: 4 Room: [address] [place] [address] Type: ADM IN Attending Dr: Adama Kothari MD Copies to: MD Juliet Paul MD Valerie J Castillo LUBRICATING ENGINEER-C~ HPI DATE OF EXAMINATION: 09/28/22 CHIEF COMPLAINT: hip fx HISTORY OF PRESENT ILLNESS: 87 years old female sustained what it seems mechanical fall, without any prodromal symptoms at home, where she lives alone, and presented to [place] emergency room where she was diagnosed with [...] Previous records in the computer system reviewed PMFSH Vaccinated for COVID-19?: Yes Surgical History (Updated [...] signed by Juliet Green MD> 09/28/22 2141 [facility] Work Phone: 1(210) 613-166303-08-2023 Progress note Author Adama Kothari [facility] September 28, 2022 7:19pm Note Date/Time September 28, 2022 10:0 4am [facility] [address] [place] [address] Hospitalist Progress Note Signed Patient: Annamaria Garcia MR#: [id number] : 1935 Acct:[id number] Age/Sex: 87 / F Adm Date: 3 Loc: 4N Room: [address] [place] [address] Type: ADM IN Attending Dr: Adama Kothari [...] Freq PRN Reason Stop Dose Admin Acetaminophen 650 [...] Meq Kcl IV 09/28/23 05:29 75 mls/hr .[id number] XIAO Administration Lactated Ringer's 1,000 mls @ [...] <Electronically signed by Adama Kothari MD> 09/28/22 191 [facility] Work Phone: 1([phone]) [phone] Hospital Discharge instructions Additional Instructions SNF Physician: [...] Mepilex border foam to Coccyx for protection. [facility] Work Phone: 1(573) 863-620309-26-2022 NoteHNO ID: [id number] Author: Storm Russell APRN.BATH MIXER Service: ? Author Type: Nurse Specialist Type: Progress Notes Filed: 04/21/2022 7:19 AM Note Text: [facility] NOTE NAME: GARCIAANNAMARIACHELI NO.: [id number] DATE OF SERVICE: 04/18/[address] [facility] DATE OF : 1935 REASON FOR VISIT: The patient is a resident of [facility]. This is a skilled visit for fracture [...] no supplement. DICTATED BY: SARAH Bliss/Bernice JOB# [id number] cc:[facility]09-21-2022 NoteHNO ID: [id number] Author: Storm Russell APRN.BATH MIXER Service: ? Author Type: Nurse Specialist Type: Progress Notes Filed: 04/14/2022 3:59 PM Note Text: [facility] NOTE NAME: STANISLAW GARCIA NO.: [id number] DATE OF SERVICE: 04/13/[address] [facility] DATE OF : 1935 REASON FOR VISIT: The patient is a resident of [facility]. This is a skilled visit for fracture [...] safety, provide supportive care. DICTATED BY: SARAH Bliss JOB# [id number] cc:[facility]09-21-2022 History of Present illness Narrative* Storm Russell APRN.BATH MIXER - 04/13/2022 12:00 AM EDT [facility] NOTE NAME: STANISLAW GARCIA NO.: [id number] DATE OF SERVICE: 04/13/[address] [facility] DATE OF : 1935 REASON FOR VISIT: The patient is a resident of [facility]. This is a skilled visit for fracture [...] supportive care. DICTATED BY: SARAH Bliss/Bernice JOB# [id number] cc:[facility] NoteHNO ID: [id number] Author: Storm Russell APRN.BATH MIXER Service: ? Author Type: Nurse Specialist Type: Progress Notes Filed: 04/11/2022 7:39 PM Note Text: [facility] NOTE NAME: STANISLAW GARCIA NO.: [id number] DATE OF SERVICE: 04/08/[address] [facility] DATE OF : 1935 REASON FOR VISIT: The patient is a resident of [facility]. This is a skilled visit for pelvic [...] normal range. DICTATED BY: SARAH Bliss JOB# [id number] cc:[facility]09-16-2022 History of Present illness Narrative* Storm Russell APRN.BATH MIXER - 04/08/2022 12:00 AM EDT [facility] NOTE NAME: ANNAMARIA GARCIACHELI NO.: [id number] DATE OF SERVICE: 04/08/[address] [facility] DATE OF : 1935 REASON FOR VISIT: The patient is a resident of [facility]. This is a skilled visit for pelvic [...] normal range. DICTATED BY: SARAH Bliss JOB# [id number] cc:[facility]-2022 NoteHNO ID: [id number] Author: Debra Vásquez Service: ? Author Type: Physician Type: Progress Notes Filed: 04/06/2022 5:49 PM Note Text: [facility] NOTE NAME: STANISLAW GARCIA NO.: [id number] DATE OF SERVICE: 04/05/[address] [facility] DATE OF : 1935 NEW PATIENT HISTORY AND PHYSICAL HISTORY OF PRESENT ILLNESS: Patient is an 86-year-old female, who is admitted to us from [facility] with a diagnoses of acute nondisplaced fracture [...] she knew that she was somewhere is [place]. She is aware of having had a [...] hospital. DICTATED BY: MD ROCHELLE Silverio/Bernice JOB# [id number] cc:[facility]09-13-2022 History of Present illness Narrative* Debra Vásquez - 04/05/2022 12:00 AM EDT [facility] NOTE NAME: STANISLAW GARCIA NO.: [id number] DATE OF SERVICE: 04/05/[address] [facility] DATE OF : 1935 NEW PATIENT HISTORY AND PHYSICAL HISTORY OF PRESENT ILLNESS: Patient is an 86-year-old female, who is admitted to us from [facility] with a diagnoses of acute nondisplaced fracture [...] she knew that she was somewhere is [place]. She is aware of having had a [...] hospital. DICTATED BY: MD ROCHELLE Silverio/Bernice JOB# [id number] cc:[facility] Evaluation note* Encounter Date Diagnosis Assessment Notes [...] above plan, states she will go to [facility] for further evaluation. 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 * Skin Rash (Sinhala) documented in this encounterWex[facility] Center[facility] HospitalReason for referral (narrative)* Consultation (Routine) - Pending Review Specialty Diagnoses / Procedures Referred By Christiane layton Referred To Contact Dermatology Diagnoses Rash and nonspecific skin eruption Ashley Olvera APRN-CNP [address] [place] [address] Shawanda Cintron MD [address] , [address] [address] Referral ID Status Reason Start Date Expiration Date Visits Requested Visits Authorized [id number] Pending Review Specialty Services Required 09/27/2023 09/26/2024 1 1 [facility] Advance Directives Documents on File Type Date Recorded 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 Advance Directive(s) 04/04/2016 12:27 PM Advance Directive Response Recorded Date/ Time Advance Directives No September 28 2:49am Documents on File Type Date Recorded 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 Rash on lower legs and fac e Source Comments (unrecognize d section and content) In the event this informatio n is protected by the Federal Confidentiality of Alcohol and Drug Abuse Patient Records regulations: The Federal rules restrict any use of the information to criminally investigate or prosecute any alcohol or drug abuse patient.[facility] Center[facility] the event this information is protected by the Federal Confidentiality of Alcohol and Drug Abuse Patient Records regulations: The Federal rules restrict any use of the information to criminally investigate or prosecute any alcohol or drug abuse patient.[facility] CenterIn the event this information is protected by the Federal Confidentiality of Alcohol and Drug Abuse Patient Records regulations: The Federal rules restrict any use of the information to criminally investigate or prosecute any alcohol or drug abuse patient.[facility] Care Teams (unrecognized sec tion and content) Business Controller Relationship Specialty Start Date End Date Richard He PCP - General Family Practice 05/08/14 Business Controller Relationship Specialty Start Date End Date Richard He PCP - General Family Medicine 05/08/14 Team Status: Active Member Role Status Dates JULES Guerrero Primary Care Provider Active Team Status: Inactive Member Role Status Dates JULES Guerrero Primary Care Provider Active Juliet Green MD Admit Provider Active Leighton Valente MD Other Provider Active Galen Escobar MD Other Provider Active Lilian Van MD Other Provider Active Silvestre Saunders DO Other Provider Active Bulmaro Moses II, MD Other Provider Active Yani Cyr MD Attending Provider Active Business Controller Relationship Specialty Start Date End Date Ashley Olvera, INSPECTOR [employer]CH[employer]IC [address] [facility] [place] [id number] PCP - General Family Medicine 07/23/19 INFORMATION SOURCE (unrecogn ized section and content) DATE CREATED AUTHOR 04/25/2022 [facility] DATE CREATED AUTHOR AUTHOR'S ORGANIZ ATION 10/17/2022 [facility] DATE CREATED AUTHOR AUTHOR'S ORGANIZ ATION 10/17/[address] [facility] DATE CREATED AUTHOR AUTHOR'S ORGANIZ ATION 09/28/2023 [facility] FOR RECORDS PERTAINING TO PATIENTS WHO ARE [...] BE BASED ON THE PRIMARY CLINICAL RECORDS. [facility] [employer] [facility]. provides no warranty or guarantee of the accuracy or completeness of information in this document.
--- NOTE | 2023-09-30 22:26 | ED.BACK1 ---
HPI - Back Pain/Injury General Chief Complaint: Back Pain/Injury Stated Complaint: BACK PAIN Time Seen by Provider: 09/30/23 22:19 Source: other Source comment: prison Mode of arrival: Wheelchair Limitations: no limitations History of Present Illness HPI Narrative: patient resides at long-term. She is pleasant and cooperative but a poor historian. Presents complaining of right hip and lower back pain. No known history of fall. She states she fell and personnel from the nursing told her family she did not fall. No lower ext. weakness . No nausea or fever. Related Data Home Medications Medication Instructions Recorded Confirmed acetaminophen 325 mg tablet 325 mg PO Q6H PRN fever or pain 04/10/23 09/30/23 (Tylenol) aspirin 325 mg capsule 325 mg PO DAILY 04/10/23 09/30/23 calcium carbonate 600 mg-vitamin 1 tab PO DAILY 04/10/23 09/30/23 D3 20 mcg (800 unit) chewable tablet (Caltrate 600 plus D) cholecalciferol (vitamin D3) 50 50 mcg PO DAILY 04/10/23 09/30/23 mcg (2,000 unit) capsule ferrous sulfate 325 mg (65 mg 325 mg PO DAILY 04/10/23 09/30/23 iron) tablet,delayed release sertraline 25 mg tablet 25 mg PO Q24H 04/10/23 09/30/23 diphenhydramine HCl 25 mg capsule 25 mg PO Q4H PRN itching 09/30/23 09/30/23 (Allergy (diphenhydramine)) methylprednisolone 4 mg tablets in mg 09/30/23 a dose pack Previous Rx's Medication Instructions Recorded clobetasol 0.05 % topical cream 1 applic topical DAILY 2 weeks #60 09/22/23 grams Allergies Allergy/AdvReac Type Severity Reaction Status Date / Time No Known Drug Allergies Allergy Verified 04/10/23 04:41 Review of Systems ROS Status of ROS 10 or more systems reviewed and unremarkable except as noted in history and below PFSH PFSH Social History Smoking status: Former smoker Exam Constitutional Vital Signs, click to edit/add: Last Vital Signs Temp 98.3 F 09/30/23 22:04 Pulse 70 10/01/23 01:41 Resp 26 H 10/01/23 01:41 BP 182/68 H 10/01/23 01:41 Pulse Ox 99 10/01/23 01:41 O2 Del Method Room Air 10/01/23 01:41 Common normals: no apparent distress, oriented x3 and alert HENMT Common normals: normocephalic and head/scalp atraumatic Eye Common normals: EOMs intact bilaterally and conjunctivae normal Respiratory Common normals: normal respiratory effort, no retractions, no use of accessory muscles and clear to auscultation bilaterally Cardio Common normals: regular rate, regular rhythm, S1 normal heart sound and S2 normal heart sound GI Common normals: Normal to inspection, nondistended, normoactive bowel sounds present, soft to palpation and non-tender Back & Pelvis Other: mod sacral tenderness mild right hip tenderness Extremity Common normals: normal to inspection and full ROM Neuro Common normals: oriented x3, CN's II-XII intact bilaterally, moves all extremities and no focal motor deficits Psych Appearance: grossly normal Course Vital Signs Vital signs: Vital Signs Temperature 98.3 F 09/30/23 22:04 Pulse Rate 64 09/30/23 22:04 Respiratory Rate 20 09/30/23 22:04 Blood Pressure 200/90 H 09/30/23 22:04 Pulse Oximetry 99 09/30/23 22:04 Oxygen Delivery Method Room Air 09/30/23 22:04 Temperature 98.3 F 09/30/23 22:04 Pulse Rate 70 10/01/23 01:41 Respiratory Rate 26 H 10/01/23 01:41 Blood Pressure 182/68 H 10/01/23 01:41 Pulse Oximetry 99 10/01/23 01:41 Oxygen Delivery Method Room Air 10/01/23 01:41 MDM - Back Pain/Injury MDM Narrative Medical decision making narrative: patient presents from long-term with complaint of pain of her back and hip. No known history of a fall. Per her family member she is usually ambulatory with a walker. Patient needed the assistance of 2 nurses to get out of the car and out of the wheelchair. She has sacral tenderness. No deformity or shortning of her legs. CT with evidence of old fractures but no acute findings. Patient medicated with morphine and toradol. She was not able to get out of the bed to even attempt to stand. labs demonstrate hyponatremia. Her hypertension improved after a dose of Hydralazine. Discussed with the hospitalist and patient accepted for obs admission to get PT involved and to follow up on her labs Lab Data Labs: Lab Results 09/30/23 09/30/23 Range/Units 22:04 22:51 WBC 14.3 H (4.0-11.0) 10^3/uL RBC 4.29 (4.20-5.40) 10^6/uL Hgb 13.1 (12.0-16.0) g/dL Hct 41.6 (36.0-48.0) % MCV 97.0 (81.0-99.0) fL MCH 30.5 (26.7-34.0) pg MCHC 31.5 (29.9-35.2) g/dL RDW 12.8 (11.0-15.0) % Plt Count 347 (150-450) 10^3/uL MPV 8.8 L (9.5-13.5) fL Neut % (Auto) 77.9 H (43.0-75.0) % Lymph % (Auto) 11.4 L (20.5-60.0) % [place] % (Auto) 8.2 (1.7-12.0) % Eos % (Auto) 0.6 L (0.9-7.0) % Baso % (Auto) 0.4 (0.2-2.0) % Neut # (Auto) 11.1 H (1.4-6.5) 10^3/uL Lymph # (Auto) 1.6 (1.2-3.8) 10^3/uL [place] # (Auto) 1.2 H (0.3-0.8) 10^3/uL Eos # (Auto) 0.1 (0.0-0.7) 10^3/uL Baso # (Auto) 0.1 (0.0-0.1) 10^3/uL Abs Immat Gran (auto) 0.21 H (0.00-0.03) 10^3/uL Imm/Tot Granulo (auto) 1.5 H (0.0-0.5) % ESR 26 (<=30) mm/hr Sodium 128 L (136-145) mmol/L Potassium 3.9 (3.5-5.1) mmol/L Chloride 95 L (98-107) mmol/L Carbon Dioxide 24.5 (21.0-32.0) mmol/L Anion Gap 12.4 BUN 13.0 (7.0-18.0) mg/dL Creatinine 0.72 (0.55-1.02) mg/dL Est GFR ( Amer) >60 (>=60) Est GFR (Non-Af Amer) >60 (>=60) BUN/Creatinine Ratio 18.1 Glucose 105 (74-106) mg/dL Calcium 9.7 (8.5-10.1) mg/dL C-Reactive Protein <0.50 (<=0.50) mg/dL Urine Color Yellow (YELLOW) Urine Clarity Clear (CLEAR) Urine pH 7.0 (5.0-9.0) Ur Specific [place] 1.020 (1.005-1.025) Urine Protein Negative (NEG/TRACE) mg/dL Urine Glucose (UA) Negative (NEGATIVE) mg/dL Urine Ketones Negative (NEGATIVE) mg/dL Urine Occult Blood Negative (NEGATIVE) Urine Nitrite Negative (NEGATIVE) Urine Bilirubin Negative (NEGATIVE) Urine Urobilinogen 0.2 (0.2-1.0) EU/dL Ur Leukocyte Esterase Negative (NEGATIVE) Discharge Plan Discharge Chief Complaint: Back Pain/Injury Clinical Impression: Hypertensive urgency, Acute back pain, Acute hyponatremia Patient Disposition: Admitted as Observation
--- NOTE | 2023-09-30 22:29 | CT_ITS ---
The [address] [address] Patient Name: JIM GARCIA MRN: [id number] date: 1935 Sex: F Assigned Patient Location: ER Current Patient Location: ER Accession/Order Number: [id number] Exam Date: 09/30/2023 23:05 Report Date: 09/30/2023 23:43 At the request of: SHEYLA JAIME Procedure: CT pelvis wo con EXAM: CT pelvis wo con, CT hip RT wo con HISTORY: The patient is an 88-year-old female with sacral pain COMPARISON: None. TECHNIQUE: CT images were obtained through the bony pelvis and both hips without intravenous contrast and reformatted in 2 dimensions. Additional smaller [id number] images were scanned through the right hip only. Dose reduction techniques were achieved by using automated exposure control and/or adjustment of mA and/or kV according to patient size and/or use of iterative reconstruction technique. FINDINGS: There are old healed fracture deformities of the right and left superior and inferior pubic rami. There are old healed fracture deformities of the sacrum. No acute or ununited fractures are seen throughout the bony pelvis. No fractures or cortical discontinuities are seen within the proximal right femur. The width and alignment of the right hip joint is relatively maintained. There is an old healed fracture of the intertrochanteric region of the proximal left femur, internally fixated with a gamma nail. The width and alignment of the left hip joint is maintained. The alignment of both sacroiliac joints are maintained. 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 The pubic symphysis is maintained. 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 This may contribute to the patient's hip symptoms. This was previously evaluated with a CT scan of the lumbar spine on 09/27/2022. The soft tissue images demonstrate no abnormal fluid collections on this non-contrast enhanced study. CT/CT pelvis wo con IMPRESSION: No acute or ununited fractures are seen within either proximal femur or elsewhere throughout the bony pelvis. If there is a clinical concern for a sacral insufficiency fracture, MRI would be a more sensitive and specific imaging modality. Electronically authenticated by: MY BURK Date: 09/30/2023 23:43
--- NOTE | 2023-09-30 22:29 | CT_ITS ---
The [address] [address] Patient Name: JIM GARCIA MRN: [id number] date: 1935 Sex: F Assigned Patient Location: ER Current Patient Location: ER Accession/Order Number: [id number] Exam Date: 09/30/2023 23:05 Report Date: 09/30/2023 23:43 At the request of: SHEYLA JAIME Procedure: CT hip RT wo con EXAM: CT pelvis wo con, CT hip RT wo con HISTORY: The patient is an 88-year-old female with sacral pain COMPARISON: None. TECHNIQUE: CT images were obtained through the bony pelvis and both hips without intravenous contrast and reformatted in 2 dimensions. Additional smaller [id number] images were scanned through the right hip only. Dose reduction techniques were achieved by using automated exposure control and/or adjustment of mA and/or kV according to patient size and/or use of iterative reconstruction technique. FINDINGS: There are old healed fracture deformities of the right and left superior and inferior pubic rami. There are old healed fracture deformities of the sacrum. No acute or ununited fractures are seen throughout the bony pelvis. No fractures or cortical discontinuities are seen within the proximal right femur. The width and alignment of the right hip joint is relatively maintained. There is an old healed fracture of the intertrochanteric region of the proximal left femur, internally fixated with a gamma nail. The width and alignment of the left hip joint is maintained. The alignment of both sacroiliac joints are maintained. 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 The pubic symphysis is maintained. 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 This may contribute to the patient's hip symptoms. This was previously evaluated with a CT scan of the lumbar spine on 09/27/2022. The soft tissue images demonstrate no abnormal fluid collections on this non-contrast enhanced study. CT/CT hip RT wo con IMPRESSION: No acute or ununited fractures are seen within either proximal femur or elsewhere throughout the bony pelvis. If there is a clinical concern for a sacral insufficiency fracture, MRI would be a more sensitive and specific imaging modality. Electronically authenticated by: MY BURK Date: 09/30/2023 23:43
[2023-09-30 22:52] LABS: Bilirubin Urine NEGATIVE (NEGATIVE); Blood Urine NEGATIVE (NEGATIVE); Clarity Urine CLEAR (CLEAR); Color Urine YELLOW (YELLOW); Glucose Urine UA NEGATIVE (NEGATIVE); Ketones Urine NEGATIVE (NEGATIVE); Leukocyte Esterase Urine NEGATIVE (NEGATIVE); Nitrite Urine NEGATIVE (NEGATIVE); Protein Urine NEGATIVE (NEG/TRACE); Urine Microscopic Indicated NO; Urobilinogen Urine 0.2 EU/dL (0.2-1.0)
[2023-09-30 22:58] LABS: Basophils Absolute Auto 0.1 10^3/uL (0.0-0.1); Basophils Percent Auto 0.4 % (0.2-2.0); Eosinophils Absolute Auto 0.1 10^3/uL (0.0-0.7); Eosinophils Percent Auto 0.6 % (0.9-7.0); Hematocrit 41.6 % (36.0-48.0); Hemoglobin 13.1 g/dL (12.0-16.0); Immature Granulocytes Abs Auto 0.21 10^3/uL (0.00-0.03); Immature Granulocytes Pct Auto 1.5 % (0.0-0.5); Lymphocytes Absolute Auto 1.6 10^3/uL (1.2-3.8); Lymphocytes Percent Auto 11.4 % (20.5-60.0); Mean Corpuscular HGB Conc 31.5 g/dL (29.9-35.2); Mean Corpuscular Hemoglobin 30.5 pg (26.7-34.0); Mean Platelet Volume 8.8 fL (9.5-13.5); Monocytes Absolute Auto 1.2 10^3/uL (0.3-0.8); Monocytes Percent Auto 8.2 % (1.7-12.0); Neutrophils Absolute Auto 11.1 10^3/uL (1.4-6.5); Neutrophils Percent Auto 77.9 % (43.0-75.0); Platelet Count 347 10^3/uL (150-450); Red Blood Count 4.29 10^6/uL (4.20-5.40); Red Cell Distribution Width 12.8 % (11.0-15.0); White Blood Count 14.3 10^3/uL (4.0-11.0)
[2023-09-30] MEDS: MORPHINE SULFATE 4 MG/ML VIAL IV (22:59)
[2023-09-30 23:10] LABS: Anion Gap 12.4; BUN Creatinine Ratio 18.1; C Reactive Protein <0.50 mg/dL (<=0.50); Calcium 9.7 mg/dL (8.5-10.1); Carbon Dioxide 24.5 mmol/L (21.0-32.0); Chloride 95 mmol/L (98-107); Estimated GFR (African America >60 (>=60); Estimated GFR (Non-African Ame >60 (>=60); Glucose 105 mg/dL (74-106); Potassium 3.9 mmol/L (3.5-5.1); Sodium 128 mmol/L (136-145)
[2023-09-30 23:33] LABS: Erythrocyte Sedimentation Rate 26 mm/hr (<=30)
[2023-10-01] VITALS (9 sets, daily range): BP systolic 127–210; BP diastolic 66–78; PULSE 58–79; RESP 16–26; TEMP 36.4–36.9; O2SAT 93–100; BMI 19.2
[2023-10-01] MEDS: KETOROLAC TROMETHAMINE 30 MG/ML VIAL IVP (00:47)
[2023-10-01] MEDS: HYDRALAZINE HCL 20 MG/ML VIAL 5 MG IVP (00:47)
[2023-10-01 03:35] LABS: Creatinine Urine Random 55.02 mg/dL (20.00-300.00); Sodium Urine Random 82 mmol/L (30-90)
--- OUTSIDE RECORDS SUMMARY | 2023-10-01 03:40 | XMS_ITS | CCD ---
Author Name Unknown Address [address] [place] [address] Organization [facility] Care Team Providers Care Assurance Manager Insurance Name Role Phone Rylie Galvan Unavailable Richard He Primary Care Provider UnavailRichard Loomis Primary Care Provider UnavailRichard Loomis E Primary Care Provider UnavailJULES Chaves Primary Care Provider MD Juliet Green Admit Provider MD Leighton Valente Other Provider MD Galen Escobar Other Provider [phone] MD Lilian Van Other Provider [phone] DO Silvestre Saunders Other Provider [phone] MD Bulmaro Moses II Other Provider [phone] MD Yani Cyr Attending Provider [phone] ADELE KATZ Admitting Unavailable DR TAYLOR PENA [...] Attending Unavailable Ashley Olvera Primary Care Unavailable Glaen Escobar Consulting Unavailable Lilian Van Consulting Unavailable Silvestre Saunders Consulting Unavailable Bulmaro Moses II Consulting Unavailnico Valente, Leighton Unavailable ASHLEY OLVERA Attending Unavailable ASHLEY OLVERA Referring Unavailable ITA OLVERAE Shruthi Primary Care Unavailable ASHLEY OLVERA Attending Unavailable ASHLEY OLVERA Referring Unavailable CLIFTON OLVERAERIE Shruthi Primary Care Unavailable Olvera RESEARCH MANUFACTURING OPERATOR-ROUTE SALES SPECIALIST, Ashley Shruthi Primary Care Provid er Allergies [...] (5 sources) take 1 capsule by mo [facility] once daily Lutein 20 MG 1 capsule with a meal Orally Once a day Active LUTEIN ORAL Take by mouth. 0 Active take 1 capsule by mo [facility] every twenty-four hours Lutein 20 MG [...] on above: Take 1 capsule by mo [facility] twice daily. Take 1 capsule with [...] Comment on above: Take 1 tablet by [facility] every 4 hours as needed. simvastatin 20 [...] 10-10-2022 Chronic Other aftercare (1 source) Other [facility] (current) drug therapy; Translations: [OTH METAL FITTER CURRENT DRUG THERAPY] Onset: 09-29-2022 Episodic Other [...] 10-14-2022 BASO # 0.0 103/ul Normal 0.0-0.1 [facility] Comment on above: Performed By: #### C MP, CMADM #### [facility] [address] [address] [address] Nidhi Dawn Basophils/100 WBC (Bld) 0.3 % Normal 0.2-2.0 [facility] Comment on above: Performed By: #### C MP, CMADM #### [facility] [address] [address] [address] Nidhi Dawn EO # 0.1 103/ul Normal 0.0-0.7 [facility] Comment on above: Performed By: #### C DONA, CMADM #### [facility] [address] [address] [address] Nidhi Dawn Eosinophils/100 WBC (Bld) 1.2 % Normal 0.9-7.0 [facility] Comment on above: Performed By: #### C DONA, CMADM #### [facility] [address] [address] [address] Nidhi Dawn Erythrocyte distribution width (RBC) [Ratio] 15.7 % Critically high 11.0-15.0 [facility] Comment on above: Performed By: #### C MP, CMADM #### [facility] [address] [address] [address] Nidhi Dawn Hematocrit (Bld) [Volume fraction] 28.5 % Critically low 36.0-48.0 [facility] Comment on above: Performed By: #### C MP, CMADM #### [facility] [address] [address] [address] Nidhi Dawn Hemoglobin (Bld) [Mass/Vol] 8.9 g/dL Critically low 12.0-16.0 [facility] Comment on above: Performed By: #### C DONA, CMADM #### [facility] [address] [place] [address] Dr. Nidhi Dawn IG # 0.04 10e3/ul Critically high 0.00-0.03 [facility] Comment on above: Performed By: #### C DONA, CMADM #### [facility] [address] [place] [address] Dr. Nidhi Dawn IG % 0.7 % Critically high 0.0-0.5 [facility] Comment on above: Performed By: #### C DONA, CMADM #### [facility] [address] [place] [address] Dr. Nidhi Dawn LYMPH # 0.9 103/ul Critically low 1.2-3.8 [facility] Comment on above: Performed By: #### C DONA CMADM #### [facility] [address] [place] [address] Dr. Nidhi Dawn Lymphocytes/100 WBC (Bld) 15.6 % Critically low 20.5-60.0 [facility] Comment on above: Performed By: #### C LEONCIO CARCAMODM #### [facility] [address] [place] [address] Dr. Nidhi Dawn MANUAL DIFF REQ NO Normal [facility] Comment on above: Performed By: #### C DONA, CMADM #### [facility] [address] [place] [address] Dr. Nidhi Dawn MCH (RBC) [Entitic mass] 30.8 pg Normal 26.7-34.0 [facility] Comment on above: Performed By: #### C DONA, CMADM #### [facility] [address] [place] [address] Dr. Nidhi Dawn MCHC (RBC) [Mass/Vol] 31.2 g/dL Normal 29.9-35.2 [facility] Comment on above: Performed By: #### C DONA, CMADM #### [facility] [address] [place] [address] Dr. Nidhi Dawn MCV (RBC) [Entitic vol] 98.6 fL Normal 81.0-99.0 [facility] Comment on above: Performed By: #### C DONA, CMADM #### [facility] [address] [place] [address] Dr. Nidhi Dawn MONO # 0.7 103/ul Normal 0.3-0.8 [facility] Comment on above: Performed By: #### C DONA, CMADM #### [facility] [address] [place] [address] Dr. Nidhi Dawn Monocytes/100 WBC (Bld) 11.1 % Normal 1.7-12.0 [facility] Comment on above: Performed By: #### C DONA, CMADM #### [facility] [address] [place] [address] Dr. Nidhi Dawn NEUT # 4.2 103/ul Normal 1.4-6.5 [facility] Comment on above: Performed By: #### C DONA, LEONCIODM #### [facility] [address] [place] [address] Dr. Nidhi Dawn Neutrophils/100 WBC (Bld) 71.1 % Normal 43.0-75.0 [facility] Comment on above: Performed By: #### C DONA, LEONCIODM #### [facility] [address] [place] [address] Dr. Nidhi Dawn Platelet mean volume (Bld) [Entitic vol] 8.5 fL Critically low 9.5-13.5 [facility] Comment on above: Performed By: #### C DONA, CMADM #### [facility] [address] [place] [address] Dr. Nidhi Dawn PLT 614 103/ul Critically high 150-450 [facility] Comment on above: Performed By: #### C DONA, CMADM #### [facility] [address] [place] [address] Dr. Nidhi Dawn RBC 2.89 106/ul Critically low 4.20-5.40 [facility] Comment on above: Performed By: #### C DONA, CMADM #### [facility] [address] [address] [address] Nidhi Dawn WBC 5.8 103/ul Normal 4.0-11.0 [facility] Comment on above: Performed By: #### C MP, CMADM #### [facility] [address] [address] [address] Nidhi Dawn Basic Metabolic Panelon 09-21 Anion gap [Moles/Vol] 8.2 mmol/L Normal 6.0-15.0 [facility] Comment on above: Performed By: #### F ER, FE and TIBC #### [facility] [address] [place] [address] [place] Calcium [Mass/Vol] 9.1 mg/dL Normal 8.6-10.3 [facility] Comment on above: Performed By: #### F ER, FE and TIBC #### [facility] [address] [place] [address] [place] Chloride [Moles/Vol] 102 mmol/L Normal 98-107 [facility] Comment on above: Performed By: #### F ER, FE and TIBC #### [facility] [address] [place] [address] [place] CO2 [Moles/Vol] 30.5 mmol/L Normal 21.0-31.0 [facility] Comment on above: Performed By: #### F ER, FE and TIBC #### [facility] [address] [place] [address] [place] Creatinine [Mass/Vol] 0.35 mg/dL Low 0.60-1.20 [facility] Comment on above: Performed By: #### F ER, FE and TIBC #### [facility] [address] [place] [address] [place] Creatinine Clr Calc Pharmacy 35.59 Normal [facility] Comment on above: Result Comment: PERF ORMED BY: [place] [address] PATHOLOGIST DEPARTMENT SECRETARY CLARICE OSWALD M.D. Performed By: #### F ER, FE and TIBC #### [facility] [address] [place] [address] [place] GFR/1.73 sq M.predicted MDRD (S/P/Bld) [Vol rate/Area] mL/min/{1.73_m2} Normal [facility] Comment on above: Performed By: #### F ER, FE and TIBC #### [facility] [address] Glucose [Mass/Vol] 104 mg/dL Normal 74-109 [facility] Comment on above: Result Comment: [facility] Glucose Reference Range is dependent on time and content of last meal. Glucose of more than 200 mg/dL in a nonstressed, ambulatory subject supports the diagnosis of Diabetes Mellitus. ADA recommended reference range Performed By: #### F ER, FE and TIBC #### [facility] [address] Potassium [Moles/Vol] 3.7 mmol/L Normal 3.5-5.1 [facility] Comment on above: Performed By: #### F ER, FE and TIBC #### [address] Sodium [Moles/Vol] 137 mmol/L Normal 136-145 [facility] Comment on above: Performed By: #### F ER, FE and TIBC #### [address] Urea nitrogen [Mass/Vol] 10 mg/dL Normal 7-25 [facility] Comment on above: Performed By: #### F ER, FE and TIBC #### [facility] [address] [place] [address] [place] Basophils Auto (Bld) [#/Vol] Ordered By: Yani Cyr on 10-03-2022 Basophils (Bld) [#/Vol] 0.0 10*3/uL 0.0-0.2 [facility] Basophils/100 WBC Auto (Bld) Ordered By: Yani Cyr on 10-03-2022 Basophils/100 WBC (Bld) 0.4 % . [facility] Calcium [Mass/volume] in Ser um or PlasmaOrdered By: Yani Cyr on 10-03-2022 Calcium [Mass/Vol] 9.1 mg/dL 8.6-10.3 [facility] Carbon dioxide, total [Moles /volume] in Serum or PlasmaOrdered By: Yani Cyr on 10-03-2022 CO2 [Moles/Vol] 30.5 mmol/L 21.0-31.0 [facility] Chloride [Moles/volume] in S enma or PlasmaOrdered By: Yani Cyr on 10-03-2022 Chloride [Moles/Vol] 102 mmol/L 98-107 [facility] Complete Blood Count Auto Di ffon 10-03-2022 Basophils (Bld) [#/Vol] 0.0 10*3/uL Normal 0.0-0.2 [facility] Comment on above: Result Comment: PERF ORMED BY: [place] [address] PATHOLOGIST DEPARTMENT SECRETARY CLARICE OSWALD M.D. Performed By: #### F ER, FE and TIBC #### [facility] [address] Basophils/100 WBC (Bld) 0.4 % Normal . [facility] Comment on above: Performed By: #### F ER, FE and TIBC #### [facility] [address] [place] [address] [place] Eosinophils (Bld) [#/Vol] 0.1 10*3/uL Normal 0.0-0.45 [facility] Comment on above: Performed By: #### F ER, FE and TIBC #### [facility] [address] [place] [address] [place] Eosinophils/100 WBC (Bld) 1.9 % Normal . [facility] Comment on above: Performed By: #### F ER, FE and TIBC #### [facility] [address] Erythrocyte distribution width (RBC) [Ratio] 14.5 % Normal 11.9-15.3 [facility] Comment on above: Performed By: #### F ER, FE and TIBC #### [facility] [address] Hematocrit (Bld) [Volume fraction] 25.7 % Low 34.0-46.4 [facility] Comment on above: Performed By: #### F ER, FE and TIBC #### [address] Hemoglobin (Bld) [Mass/Vol] 8.7 g/dL Low 11.8-15.4 [facility] Comment on above: Performed By: #### F ER, FE and TIBC #### [address] Lymphocytes (Bld) [#/Vol] 1.1 10*3/uL Normal 1.00-4.8 [facility] Comment on above: Performed By: #### F ER, FE and TIBC #### [address] Lymphocytes/100 WBC (Bld) 14.2 % Normal . [facility] Comment on above: Performed By: #### F ER, FE and TIBC #### [address] MCH (RBC) [Entitic mass] 31.5 pg Normal 24.7-34.3 [facility] Comment on above: Performed By: #### F ER, FE and TIBC #### [address] MCV (RBC) [Entitic vol] 92.5 fL Normal 80-100 [facility] Comment on above: Performed By: #### F ER, FE and TIBC #### [address] Mean Corpuscular HGB Conc 34.1 g/dL Normal 32.0-35.0 [facility] Comment on above: Performed By: #### F ER, FE and TIBC #### [address] Monocytes (Bld) [#/Vol] 0.8 10*3/uL Normal 0.0-0.8 [facility] Comment on above: Performed By: #### F ER, FE and TIBC #### [facility] [address] [place] [address] [place] Monocytes/100 WBC (Bld) 10.5 % Normal . [facility] Comment on above: Performed By: #### F ER, FE and TIBC #### [facility] [address] Neutrophils (Bld) [#/Vol] 5.5 10*3/uL Normal 1.8-7.7 [facility] Comment on above: Performed By: #### F ER, FE and TIBC #### [facility] [address] Neutrophils/100 WBC (Bld) 73.0 % Normal . [facility] Comment on above: Performed By: #### F ER, FE and TIBC #### [facility] [address] [place] [address] [place] NRBC% 0.1 /100{WBC} Normal 0-0.5 [facility] Comment on above: Performed By: #### F ER, FE and TIBC #### [facility] [address] [place] [address] [place] Platelet mean volume (Bld) [Entitic vol] 7.5 fL Normal 6.3-10.7 [facility] Comment on above: Performed By: #### F ER, FE and TIBC #### [facility] [address] [place] [address] [place] Platelets (Bld) [#/Vol] 322 10*3/uL Normal 150-450 [facility] Comment on above: Performed By: #### F ER, FE and TIBC #### [facility] [address] [place] [address] [place] RBC (Bld) [#/Vol] 2.77 10*6/uL Low 3.60-5.00 [facility] Comment on above: Performed By: #### F ER, FE and TIBC #### [facility] [address] [place] [address] [place] WBC (Bld) [#/Vol] 7.6 10*3/uL Normal 3.8-11.6 [facility] Comment on above: Performed By: #### F ER, FE and TIBC #### [facility] [address] Creatinine [Mass/volume] in Serum or PlasmaOrdered By: Yani yCr on 10-03-2022 Creatinine [Mass/Vol] 0.35 mg/dL 0.60-1.20 [facility] Eosinophils Auto (Bld) [#/Vo l]Ordered By: Yani Cyr on 10-03-2022 Eosinophils (Bld) [#/Vol] 0.1 10*3/uL 0.0-0.45 [facility] Eosinophils/100 WBC Auto (Bl d)Ordered By: Yani Cyr on 10-03-2022 Eosinophils/100 WBC (Bld) 1.9 % . [facility] Erythrocyte distribution wid th Auto (RBC) [Ratio]Ordered By: Yani Cyr on 10-03-2022 Erythrocyte distribution width (RBC) [Ratio] 14.5 % 11.9-15.3 [facility] Glucose [Mass/volume] in Ser um or PlasmaOrdered By: Yani Cyr on 10-03-2022 Glucose [Mass/Vol] 104 mg/dL 74-109 [facility] Comment on above: ADA recommended refe rence rangeRandom Glucose Reference Range is dependent on time and content of last meal. Glucose of more than 200 mg/dL in a nonstressed, ambulatory subject supports the diagnosis of Diabetes Mellitus. Hematocrit Auto (Bld) [Volum e fraction]Ordered By: Yani Cyr on 10-03-2022 Hematocrit (Bld) [Volume fraction] 25.7 % 34.0-46.4 [facility] Hemoglobin [Mass/volume] in BloodOrdered By: Yani Cyr on 10-03-2022 Hemoglobin (Bld) [Mass/Vol] 8.7 g/dL 11.8-15.4 [facility] - Chemistry and C hemistry - challengeOrdered By: Yani Cyr on 10-03-2022 GFR/1.73 sq M.predicted MDRD (S/P/Bld) [Vol rate/Area] mL/min/{1.73_m2} [facility] Leukocytes [#/volume] correc anna marie for nucleated erythrocytes in Blood by Automated counOrdered By: Yani Cyr on 10-03-2022 WBC corrected for nucl RBC Auto (Bld) [#/Vol] 7.6 10*3/uL 3.8-11.6 [facility] Lymphocytes Auto (Bld) [#/Vo l]Ordered By: Yani Cyr on 10-03-2022 Lymphocytes (Bld) [#/Vol] 1.1 10*3/uL 1.00-4.8 [facility] Lymphocytes/100 WBC Auto (Bl d)Ordered By: Yani Cyr on 10-03-2022 Lymphocytes/100 WBC (Bld) 14.2 % . [facility] MCH Auto (RBC) [Entitic mass ]Ordered By: Yani Cyr on 10-03-2022 MCH (RBC) [Entitic mass] 31.5 pg 24.7-34.3 [facility] MCHC Auto (RBC) [Mass/Vol]Or dered By: Yani Cyr on 10-03-2022 MCHC (RBC) [Mass/Vol] 34.1 g/dL 32.0-35.0 [facility] MCV Auto (RBC) [Entitic vol] Ordered By: Yani Cyr on 10-03-2022 MCV (RBC) [Entitic vol] 92.5 fL 80-100 [facility] Monocytes Auto (Bld) [#/Vol] Ordered By: Yani Cyr on 10-03-2022 Monocytes (Bld) [#/Vol] 0.8 10*3/uL 0.0-0.8 [facility] Monocytes/100 WBC Auto (Bld) Ordered By: Yani Cyr on 10-03-2022 Monocytes/100 WBC (Bld) 10.5 % . [facility] Neutrophils Auto (Bld) [#/Vo l]Ordered By: Yani Cyr on 10-03-2022 Neutrophils (Bld) [#/Vol] 5.5 10*3/uL 1.8-7.7 [facility] Neutrophils/100 WBC Auto (Bl d)Ordered By: Yani Cyr on 10-03-2022 Neutrophils/100 WBC (Bld) 73.0 % . [facility] No Panel InformationOrdered By: Yani Cyr on 10-03-2022 Pharmacy Creatinine Clearance (Chem 35.59 [facility] Nucleated erythrocytes [Pres ence] in Blood by Automated countOrdered By: Yani Cyr on 10-03-2022 Nucleated RBC Auto Ql (Bld) 0.1 /100{WBC} 0-0.5 [facility] Platelet mean volume Auto (B ld) [Entitic vol]Ordered By: Yani Cyr on 10-03-2022 Platelet mean volume (Bld) [Entitic vol] 7.5 fL 6.3-10.7 [facility] Platelets Auto (Bld) [#/Vol] Ordered By: Yani Cyr on 10-03-2022 Platelets (Bld) [#/Vol] 322 10*3/uL 150-450 [facility] Potassium [Moles/volume] in Serum or PlasmaOrdered By: Yani Cyr on 10-03-2022 Potassium [Moles/Vol] 3.7 mmol/L 3.5-5.1 [facility] RBC Auto (Bld) [#/Vol]Ordere d By: Yani Cyr on 10-03-2022 RBC (Bld) [#/Vol] 2.77 10*6/uL 3.60-5.00 [facility] Serum or plasma anion gap de terminationOrdered By: Yani Cyr on 10-03-2022 Anion gap [Moles/Vol] 8.2 mmol/L 6.0-15.0 [facility] Sodium [Moles/volume] in Ser um or PlasmaOrdered By: Yani Cyr on 10-03-2022 Sodium [Moles/Vol] 137 mmol/L 136-145 [facility] Urea nitrogen [Mass/volume] in Serum or PlasmaOrdered By: Yani Cyr on 10-03-2022 Urea nitrogen [Mass/Vol] 10 mg/dL 7-25 [facility] WBC Auto (Bld) [#/Vol]Ordere d By: Yani Cyr on 10-03-2022 WBC (Bld) [#/Vol] 7.6 10*3/uL 3.8-11.6 [facility] XR hip LT min 2V(w/wo pelvis )*on 10-03-2022 XR hip LT min 2V(w/wo pelvis)* [facility] [place] [address] [place] [id number] XRay Report Signed Patient: Annamaria Garcia MR#: [id number] : 1935 Acct:[id number] Age/Sex: 87 / F ADM Date: 09/28/22 Loc: Room: [address] [place] [address] Type: ADM IN Attending Dr: Yani Cyr [...] Forrester Jr., D.OPortillo10/03/2022 10:04 AM Dictation Location: [place] [address] Transcribed By: [facility] 10/03/22 1004 Dictated By: Josse Forrester Jr, DO 10/03/22 1003 Signed By: 10/03/22 1004 Normal [facility] Hemoglobin and Hematocriton 10-02-2022 Hematocrit (Bld) [Volume fraction] 21.3 % Low 34.0-46.4 [facility] Comment on above: Result Comment: PERF ORMED BY: [address] [address] PATHOLOGIST DEPARTMENT SECRETARY CLARICE OSWALD M.D. Performed By: #### F ER, FE and TIBC #### [address] Hemoglobin (Bld) [Mass/Vol] 7.3 g/dL Low 11.8-15.4 [facility] Comment on above: Performed By: #### F ER, FE and TIBC #### [address] Complete Blood Count Auto Di ffon 10-01-2022 Basophils (Bld) [#/Vol] 0.0 10*3/uL Normal 0.0-0.2 [facility] Comment on above: Result Comment: PERF ORMED BY: [place] [address] PATHOLOGIST DEPARTMENT SECRETARY CLARICE OSWALD M.D. Performed By: #### C BC #### [address] Basophils/100 WBC (Bld) 0.3 % Normal . [facility] Comment on above: Performed By: #### C BC #### [address] Eosinophils (Bld) [#/Vol] 0.1 10*3/uL Normal 0.0-0.45 [facility] Comment on above: Performed By: #### C BC #### [address] Eosinophils/100 WBC (Bld) 1.0 % Normal . [facility] Comment on above: Performed By: #### C BC #### [address] Erythrocyte distribution width (RBC) [Ratio] 13.8 % Normal 11.9-15.3 [facility] Comment on above: Performed By: #### C BC #### [address] Hematocrit (Bld) [Volume fraction] 21.8 % Low 34.0-46.4 [facility] Comment on above: Performed By: #### C BC #### [address] Hemoglobin (Bld) [Mass/Vol] 7.4 g/dL Low 11.8-15.4 [facility] Comment on above: Performed By: #### C BC #### [address] Lymphocytes (Bld) [#/Vol] 0.9 10*3/uL Low 1.00-4.8 [facility] Comment on above: Performed By: #### C BC #### [address] Lymphocytes/100 WBC (Bld) 12.7 % Normal . [facility] Comment on above: Performed By: #### C BC #### [address] MCH (RBC) [Entitic mass] 31.0 pg Normal 24.7-34.3 [facility] Comment on above: Performed By: #### C BC #### [address] MCV (RBC) [Entitic vol] 91.8 fL Normal 80-100 [facility] Comment on above: Performed By: #### C BC #### [address] Mean Corpuscular HGB Conc 33.8 g/dL Normal 32.0-35.0 [facility] Comment on above: Performed By: #### C BC #### [address] Monocytes (Bld) [#/Vol] 1.0 10*3/uL High 0.0-0.8 [facility] Comment on above: Performed By: #### C BC #### [address] Monocytes/100 WBC (Bld) 13.6 % Normal . [facility] Comment on above: Performed By: #### C BC #### [address] Neutrophils (Bld) [#/Vol] 5.3 10*3/uL Normal 1.8-7.7 [facility] Comment on above: Performed By: #### C BC #### [facility] [address] Neutrophils/100 WBC (Bld) 72.4 % Normal . [facility] Comment on above: Performed By: #### C BC #### [facility] [address] NRBC% 0.0 /100{WBC} Normal 0-0.5 [facility] Comment on above: Performed By: #### C BC #### [facility] [address] Platelet mean volume (Bld) [Entitic vol] 8.0 fL Normal 6.3-10.7 [facility] Comment on above: Performed By: #### C BC #### [facility] [address] Platelets (Bld) [#/Vol] 208 10*3/uL Normal 150-450 [facility] Comment on above: Performed By: #### C BC #### [facility] [address] RBC (Bld) [#/Vol] 2.37 10*6/uL Low 3.60-5.00 [facility] Comment on above: Performed By: #### C BC #### [facility] [address] WBC (Bld) [#/Vol] 7.3 10*3/uL Normal 3.8-11.6 [facility] Comment on above: Performed By: #### C BC #### [facility] [address] Basic Metabolic Panelon 09-21 Anion gap [Moles/Vol] 8.7 mmol/L Normal 6.0-15.0 [facility] [facility] Comment on above: Performed By: #### B MP, CBC #### [facility] [address] Calcium [Mass/Vol] 8.3 mg/dL Low 8.6-10.3 [facility] Comment on above: Performed By: #### B MP, CBC #### [facility] 1111 [place] [address] [place] Chloride [Moles/Vol] 111 mmol/L High 98-107 [facility] Comment on above: Performed By: #### B MP, CBC #### [facility] [address] CO2 [Moles/Vol] 26.5 mmol/L Normal 21.0-31.0 [facility] Comment on above: Performed By: #### B MP, CBC #### [facility] [address] Creatinine [Mass/Vol] 0.37 mg/dL Low 0.60-1.20 [facility] Comment on above: Performed By: #### B MP, CBC #### [place] [address] [place] Creatinine Clr Calc Pharmacy 35.59 [facility] Comment on above: Result Comment: PERF ORMED BY: [place] [address] PATHOLOGIST DEPARTMENT SECRETARY CLARICE OSWALD M.D. Performed By: #### B MP, CBC #### [place] [address] [place] GFR/1.73 sq M.predicted MDRD (S/P/Bld) [Vol rate/Area] mL/min/{1.73_m2} [facility] Comment on above: Performed By: #### B MP, CBC #### [facility] 1111 [place] [address] [place] Glucose [Mass/Vol] 102 mg/dL Normal 74-109 [facility] Comment on above: Result Comment: [place] om Glucose Reference Range is dependent on time and content of last meal. Glucose of more than 200 mg/dL in a nonstressed, ambulatory subject supports the diagnosis of Diabetes Mellitus. ADA recommended reference range Performed By: #### B MP, CBC #### [place] [address] Potassium [Moles/Vol] 4.2 mmol/L Normal 3.5-5.1 [facility] Comment on above: Performed By: #### B MP, CBC #### [address] Sodium [Moles/Vol] 142 mmol/L Normal 136-145 [facility] Comment on above: Performed By: #### B MP, CBC #### [address] Urea nitrogen [Mass/Vol] 16 mg/dL Normal 7-25 [facility] Comment on above: Performed By: #### B MP, CBC #### [address] Complete Blood Count Auto Di ffon 09-30-2022 Basophils (Bld) [#/Vol] 0.0 10*3/uL Normal 0.0-0.2 [facility] Comment on above: Result Comment: PERF ORMED BY: [place] [address] PATHOLOGIST DEPARTMENT SECRETARY CLARICE OSWALD M.D. Performed By: #### B MP, CBC #### [address] Basophils/100 WBC (Bld) 0.3 % Normal . [facility] Comment on above: Performed By: #### B MP, CBC #### [address] Eosinophils (Bld) [#/Vol] 0.0 10*3/uL Normal 0.0-0.45 [facility] Comment on above: Performed By: #### B MP, CBC #### [address] Eosinophils/100 WBC (Bld) 0.3 % Normal . [facility] Comment on above: Performed By: #### B MP, CBC #### [address] Erythrocyte distribution width (RBC) [Ratio] 14.1 % Normal 11.9-15.3 [facility] Comment on above: Performed By: #### B MP, CBC #### [address] Hematocrit (Bld) [Volume fraction] 22.3 % Low 34.0-46.4 [facility] Comment on above: Performed By: #### B MP, CBC #### [address] Hemoglobin (Bld) [Mass/Vol] 7.8 g/dL Low 11.8-15.4 [facility] Comment on above: Performed By: #### B MP, CBC #### [address] Lymphocytes (Bld) [#/Vol] 1.0 10*3/uL Normal 1.00-4.8 [facility] Comment on above: Performed By: #### B MP, CBC #### [address] Lymphocytes/100 WBC (Bld) 12.9 % Normal . [facility] Comment on above: Performed By: #### B MP, CBC #### [address] MCH (RBC) [Entitic mass] 31.9 pg Normal 24.7-34.3 [facility] Comment on above: Performed By: #### B MP, CBC #### [address] MCV (RBC) [Entitic vol] 91.3 fL Normal 80-100 [facility] Comment on above: Performed By: #### B MP, CBC #### [address] Mean Corpuscular HGB Conc 34.9 g/dL Normal 32.0-35.0 [facility] Comment on above: Performed By: #### B MP, CBC #### [address] Monocytes (Bld) [#/Vol] 1.1 10*3/uL High 0.0-0.8 [facility] Comment on above: Performed By: #### B MP, CBC #### [facility] [address] Monocytes/100 WBC (Bld) 13.3 % Normal . [facility] Comment on above: Performed By: #### B MP, CBC #### [facility] [address] Neutrophils (Bld) [#/Vol] 5.9 10*3/uL Normal 1.8-7.7 [facility] Comment on above: Performed By: #### B MP, CBC #### [facility] [address] Neutrophils/100 WBC (Bld) 73.2 % Normal . [facility] Comment on above: Performed By: #### B MP, CBC #### [facility] [address] NRBC% 0.0 /100{WBC} Normal 0-0.5 [facility] Comment on above: Performed By: #### B MP, CBC #### [facility] [address] Platelet mean volume (Bld) [Entitic vol] 8.2 fL Normal 6.3-10.7 [facility] Comment on above: Performed By: #### B MP, CBC #### [facility] 1111 [place] [address] [place] Platelets (Bld) [#/Vol] 182 10*3/uL Normal 150-450 [facility] Comment on above: Performed By: #### B MP, CBC #### [facility] 1111 [place] [address] [place] RBC (Bld) [#/Vol] 2.44 10*6/uL Low 3.60-5.00 [facility] Comment on above: Performed By: #### B MP, CBC #### [facility] [address] WBC (Bld) [#/Vol] 8.0 10*3/uL Normal 3.8-11.6 [facility] Comment on above: Performed By: #### B MP, CBC #### [facility] [address] [place] [id number] [place] Ferritinon 09-30-2022 Ferritin [Mass/Vol] 53.4 ng/mL Normal 11.0-306.8 [facility] Comment on above: Order Comment: Comme nt add on Result Comment: PERF ORMED BY: [place] [address] PATHOLOGIST DEPARTMENT SECRETARY CLARICE OSWALD M.D. Performed By: #### F ER, FE and TIBC #### [facility] [address] [place] [address] Ferritin [Mass/volume] in Se rum or PlasmaOrdered By: Mimi Artis on 09-30-2022 Ferritin [Mass/Vol] 53.4 ng/mL 11.0-306.8 [facility] Hemoglobin and Hematocriton 09-30-2022 Hematocrit (Bld) [Volume fraction] 25.5 % Low 34.0-46.4 [facility] Comment on above: Result Comment: PERF ORMED BY: [place] [address] PATHOLOGIST DEPARTMENT SECRETARY CLARICE OSWALD M.D. Performed By: #### F ER, FE and TIBC #### [facility] [address] [place], [place] [id number] [facility] Hemoglobin (Bld) [Mass/Vol] 8.6 g/dL Low 11.8-15.4 [facility] Comment on above: Performed By: #### F ER, FE and TIBC #### [facility] [address] [place] [id number] [place] Iron [Mass/volume] in Serum or PlasmaOrdered By: Mimi Artis on 09-30-2022 Iron [Mass/Vol] 20 ug/dL 50-212 [facility] Iron and TIBC Profileon 09-21 0 % Iron Saturation 7.0 % Low 20-50 [facility] Comment on above: Order Comment: Comme nt add on Performed By: #### F ER, FE and TIBC #### [facility] [address] Iron [Mass/Vol] 20 ug/dL Low 50-212 [facility] Comment on above: Order Comment: Comme nt add on Performed By: #### F ER, FE and TIBC #### [facility] [address] Total Iron Binding Capacity 286 ug/dL Normal 255-450 [facility] Comment on above: Order Comment: Comme nt add on Performed By: #### F ER, FE and TIBC #### [facility] [address] Transferrin [Mass/Vol] 204 mg/dL Normal 203-362 [facility] Comment on above: Order Comment: Comme nt add on Performed By: #### F ER, FE and TIBC #### [address] Iron binding capacity [Mass/ volume] in Serum or PlasmaOrdered By: Mimi Artis on 09-30-2022 Iron binding capacity [Mass/Vol] 286 ug/dL 255-450 [facility] Iron saturation [Mass Fracti on] in Serum or PlasmaOrdered By: Mimi Obika on 09-30-2022 Iron saturation [Mass fraction] 7.0 % 20-50 [facility] Transferrin [Mass/volume] in Serum or PlasmaOrdered By: Mimi Obika on 09-30-2022 Transferrin [Mass/Vol] 204 mg/dL 203-362 [facility] Basic Metabolic Panelon 03 Anion gap [Moles/Vol] 12.9 mmol/L Normal 6.0-15.0 [facility] Comment on above: Performed By: #### B MP, SCAN CBC #### [facility] [address] [place] [address] Calcium [Mass/Vol] 8.9 mg/dL Normal 8.6-10.3 [facility] Comment on above: Performed By: #### B MP, SCAN CBC #### [facility] [address] Chloride [Moles/Vol] 108 mmol/L High 98-107 [facility] Comment on above: Performed By: #### B MP, SCAN CBC #### [facility] [address] CO2 [Moles/Vol] 21.4 mmol/L Normal 21.0-31.0 [facility] Comment on above: Performed By: #### B MP, SCAN CBC #### [facility] [address] Creatinine [Mass/Vol] 0.56 mg/dL Low 0.60-1.20 [facility] Comment on above: Performed By: #### B MP, SCAN CBC #### [address] Creatinine Clr Calc Pharmacy 35.59 [facility] Comment on above: Result Comment: PERF ORMED BY: [place] [address] PATHOLOGIST DEPARTMENT SECRETARY CLARICE OSWALD M.D. Performed By: #### B MP, SCAN CBC #### [address] GFR/1.73 sq M.predicted MDRD (S/P/Bld) [Vol rate/Area] mL/min/{1.73_m2} [facility] Comment on above: Performed By: #### B MP, SCAN CBC #### [facility] [address] [place] [address] Glucose [Mass/Vol] 118 mg/dL High 74-109 [facility] Comment on above: Result Comment: [place] Glucose Reference Range is dependent on time and content of last meal. Glucose of more than 200 mg/dL in a nonstressed, ambulatory subject supports the diagnosis of Diabetes Mellitus. ADA recommended reference range Performed By: #### B MP, SCAN CBC #### [facility] [address] Potassium [Moles/Vol] 4.3 mmol/L Normal 3.5-5.1 [facility] Comment on above: Performed By: #### B MP, SCAN CBC #### [facility] [address] Sodium [Moles/Vol] 138 mmol/L Normal 136-145 [facility] Comment on above: Performed By: #### B MP, SCAN CBC #### [facility] [address] Urea nitrogen [Mass/Vol] 16 mg/dL Normal 7-25 [facility] Comment on above: Performed By: #### B MP, SCAN CBC #### [facility] [address] Platelet adequacy [Presence] in Blood by Light microscopyOrdered By: Mimi Artis on 09-29-2022 Platelets LM Ql (Bld) Normal Normal [facility] Platelet morphology finding [Identifier] in BloodOrdered By: Mimi Artis on 09-29-2022 Platelet morphology finding Nom (Bld) Normal Normal [facility] RBC morphologyOrdered By: Rosalba Artis on 09-29-2022 RBC morphology finding Nom (Bld) Normal Normal [facility] Scan and CBCon 09-29-2022 Basophils (Bld) [#/Vol] 0.0 10*3/uL Normal 0.0-0.2 [facility] Comment on above: Performed By: #### B MP, SCAN CBC #### [facility] [address] [place] [address] [place] Basophils/100 WBC (Bld) 0.1 % Normal . [facility] Comment on above: Performed By: #### B MP, SCAN CBC #### [facility] [address] [place] [address] [place] Eosinophils (Bld) [#/Vol] 0.0 10*3/uL Normal 0.0-0.45 [facility] Comment on above: Performed By: #### B MP, SCAN CBC #### [facility] [address] [place] [address] [place] Eosinophils/100 WBC (Bld) 0.0 % Normal . [facility] Comment on above: Performed By: #### B MP, SCAN CBC #### [facility] [address] Erythrocyte distribution width (RBC) [Ratio] 14.2 % Normal 11.9-15.3 [facility] Comment on above: Performed By: #### B MP, SCAN CBC #### [facility] [address] Hematocrit (Bld) [Volume fraction] 27.0 % Low 34.0-46.4 [facility] Comment on above: Performed By: #### B MP, SCAN CBC #### [facility] [address] [place] [address] Hemoglobin (Bld) [Mass/Vol] 9.1 g/dL Low 11.8-15.4 [facility] Comment on above: Performed By: #### B MP, SCAN CBC #### [address] Lymphocytes (Bld) [#/Vol] 0.9 10*3/uL Low 1.00-4.8 [facility] Comment on above: Performed By: #### B MP, SCAN CBC #### [place] [address] [place] Lymphocytes/100 WBC (Bld) 7.1 % Normal . [facility] Comment on above: Performed By: #### B MP, SCAN CBC #### [address] MCH (RBC) [Entitic mass] 30.9 pg Normal 24.7-34.3 [facility] Comment on above: Performed By: #### B MP, SCAN CBC #### [place] [address] [place] MCV (RBC) [Entitic vol] 91.6 fL Normal 80-100 [facility] Comment on above: Performed By: #### B MP, SCAN CBC #### [facility] [address] [place] [address] Mean Corpuscular HGB Conc 33.7 g/dL Normal 32.0-35.0 [facility] Comment on above: Performed By: #### B MP, SCAN CBC #### [facility] [address] [place] [address] [place] Monocytes (Bld) [#/Vol] 1.7 10*3/uL High 0.0-0.8 [facility] Comment on above: Performed By: #### B MP, SCAN CBC #### [facility] [address] Monocytes/100 WBC (Bld) 13.5 % Normal . [facility] Comment on above: Performed By: #### B MP, SCAN CBC #### [facility] [address] Neutrophils (Bld) [#/Vol] 10.2 10*3/uL High 1.8-7.7 [facility] Comment on above: Performed By: #### B MP, SCAN CBC #### [facility] [address] [place] [address] Neutrophils/100 WBC (Bld) 79.3 % Normal . [facility] Comment on above: Performed By: #### B MP, SCAN CBC #### [address] NRBC% 0.0 /100{WBC} Normal 0-0.5 [facility] Comment on above: Performed By: #### B MP, SCAN CBC #### [facility] [address] [place] [address] Platelet Estimate Normal Normal Normal [facility] Comment on above: Performed By: #### B MP, SCAN CBC #### [facility] [address] [place] [address] Platelet mean volume (Bld) [Entitic vol] 8.0 fL Normal 6.3-10.7 [facility] Comment on above: Performed By: #### B MP, SCAN CBC #### [facility] [address] [place] [address] Platelet Morphology Normal Normal Normal [facility] Comment on above: Result Comment: PERF ORMED BY: [place] [address] PATHOLOGIST DEPARTMENT SECRETARY CLARICE OSWALD M.D. Performed By: #### B MP, SCAN CBC #### [facility] [address] [place] [address] [place] Platelets (Bld) [#/Vol] 220 10*3/uL Normal 150-450 [facility] Comment on above: Performed By: #### B MP, SCAN CBC #### [facility] [address] RBC (Bld) [#/Vol] 2.95 10*6/uL Low 3.60-5.00 [facility] Comment on above: Performed By: #### B MP, SCAN CBC #### [facility] [address] RBC morphology finding Nom (Bld) Normal Normal Normal [facility] Comment on above: Performed By: #### B MP, SCAN CBC #### [facility] [address] WBC (Bld) [#/Vol] 12.9 10*3/uL High 3.8-11.6 [facility] Comment on above: Performed By: #### B MP, SCAN CBC #### [facility] [address] XR hip LT min 2V(w/wo pelvis )*on 09-29-2022 XR hip LT min 2V(w/wo pelvis)* [facility] [place] [address] [place] [address] XRay Report Signed Patient: Annamaria Garcia MR#: [id number] : 1935 Acct:[id number] Age/Sex: 87 / F ADM Date: 09/28/22 Loc: Room: [address] [place] [address] Type: ADM IN Attending Dr: Adama Kothari [...] M.D.09/29/2022 11:29 AM Dictation Location: [place] [address] Transcribed By: KWABENA 09/29/22 1129 Dictated By: Angie Francisco MD 09/29/22 1127 Signed By: 09/29/22 1129 Normal [facility] ABO AND RH TYPEon 09-28-2022 ABO and Rh group Nom (Bld) ABO Rh Typing A Rh Positive Normal [facility] Comment on above: Performed By: #### C MP, CMADM #### [facility] [address] [place] [address] [address] Nidhi Danw Albumin Levelon 09-28-2022 Albumin [Mass/Vol] 4.0 g/dL Normal 3.5-5.7 [facility] Comment on above: Result Comment: PERF ORMED BY: [place] [address] PATHOLOGIST DEPARTMENT SECRETARY CLARICE OSWALD M.D. Performed By: #### F ER, FE and TIBC #### [facility] [address] [place] [address] [place] Albumin [Mass/volume] in Ser um or Plasma by Bromocresol green (BCG) dye binding methoOrdered By: Bulmaro Moses on 09-28-2022 Albumin BCG dye [Mass/Vol] 4.0 g/dL 3.5-5.7 [facility] Basic Metabolic Panelon Anion gap [Moles/Vol] 10.8 mmol/L Normal 6.0-15.0 [facility] Comment on above: Performed By: #### F ER, FE and TIBC #### [facility] [address] [place] [address] [place] Calcium [Mass/Vol] 9.0 mg/dL Normal 8.6-10.3 [facility] Comment on above: Performed By: #### F ER, FE and TIBC #### [facility] [address] Chloride [Moles/Vol] 103 mmol/L Normal 98-107 [facility] Comment on above: Performed By: #### F ER, FE and TIBC #### [facility] [address] CO2 [Moles/Vol] 28.5 mmol/L Normal 21.0-31.0 [facility] Comment on above: Performed By: #### F ER, FE and TIBC #### [facility] [address] Creatinine [Mass/Vol] 0.40 mg/dL Low 0.60-1.20 [facility] Comment on above: Performed By: #### F ER, FE and TIBC #### [facility] [address] [place] [address] [place] Creatinine Clr Calc Pharmacy 31.68 [facility] Comment on above: Result Comment: PERF ORMED BY: [place] [address] PATHOLOGIST DEPARTMENT SECRETARY CLARICE OSWALD M.D. Performed By: #### F ER, FE and TIBC #### [facility] [address] GFR/1.73 sq M.predicted MDRD (S/P/Bld) [Vol rate/Area] mL/min/{1.73_m2} [facility] Comment on above: Performed By: #### F ER, FE and TIBC #### [facility] [address] [place] [address] [place] Glucose [Mass/Vol] 143 mg/dL High 74-109 [facility] Comment on above: Result Comment: [place] Glucose Reference Range is dependent on time and content of last meal. Glucose of more than 200 mg/dL in a nonstressed, ambulatory subject supports the diagnosis of Diabetes Mellitus. ADA recommended reference range Performed By: #### F ER, FE and TIBC #### [facility] [address] [place] [address] [place] Potassium [Moles/Vol] 3.3 mmol/L Low 3.5-5.1 [facility] Comment on above: Performed By: #### F ER, FE and TIBC #### [facility] [address] Sodium [Moles/Vol] 139 mmol/L Normal 136-145 [facility] Comment on above: Performed By: #### F ER, FE and TIBC #### [facility] [address] Urea nitrogen [Mass/Vol] 8 mg/dL Normal 7-25 [facility] Comment on above: Performed By: #### F ER, FE and TIBC #### [facility] [address] ABD/PELVIS WO CONon 09-28 CT [...] RAVEN RENNER Date: 2022-09-27 22:38 Normal [facility] CT CSPINE WO CONon 3 CT CSPINE [...] SOPHIE SINGLETON Date: 2022-09-27 22:42 Normal [facility] CT HEAD WO CONon 09-28-2022 CT HEAD [...] RAVEN RENNER Date: 2022-09-27 22:43 Normal [facility] CT LSPINE WO CONon 3 CT LSPINE [...] KANU BURK Date: 2022-09-27 22:42 Normal [facility] Complete Blood Count Auto Di ffon 09-28-2022 Basophils (Bld) [#/Vol] 0.0 10*3/uL Normal 0.0-0.2 [facility] Comment on above: Result Comment: PERF ORMED BY: [place] [address] PATHOLOGIST DEPARTMENT SECRETARY CLARICE OSWALD M.D. Performed By: #### F ER, FE and TIBC #### [address] Basophils/100 WBC (Bld) 0.0 % Normal . [facility] Comment on above: Performed By: #### F ER, FE and TIBC #### [address] Eosinophils (Bld) [#/Vol] 0.0 10*3/uL Normal 0.0-0.45 [facility] Comment on above: Performed By: #### F ER, FE and TIBC #### [address] Eosinophils/100 WBC (Bld) 0.0 % Normal . [facility] Comment on above: Performed By: #### F ER, FE and TIBC #### [address] Erythrocyte distribution width (RBC) [Ratio] 13.9 % Normal 11.9-15.3 [facility] Comment on above: Performed By: #### F ER, FE and TIBC #### [address] Hematocrit (Bld) [Volume fraction] 33.9 % Low 34.0-46.4 [facility] Comment on above: Performed By: #### F ER, FE and TIBC #### [address] Hemoglobin (Bld) [Mass/Vol] 11.5 g/dL Low 11.8-15.4 [facility] Comment on above: Performed By: #### F ER, FE and TIBC #### [address] Lymphocytes (Bld) [#/Vol] 0.6 10*3/uL Low 1.00-4.8 [facility] Comment on above: Performed By: #### F ER, FE and TIBC #### [address] Lymphocytes/100 WBC (Bld) 4.7 % Normal . [facility] Comment on above: Performed By: #### F ER, FE and TIBC #### [facility] [address] [place] [address] MCH (RBC) [Entitic mass] 30.8 pg Normal 24.7-34.3 [facility] Comment on above: Performed By: #### F ER, FE and TIBC #### [address] MCV (RBC) [Entitic vol] 90.8 fL Normal 80-100 [facility] Comment on above: Performed By: #### F ER, FE and TIBC #### [address] Mean Corpuscular HGB Conc 34.0 g/dL Normal 32.0-35.0 [facility] Comment on above: Performed By: #### F ER, FE and TIBC #### [address] Monocytes (Bld) [#/Vol] 0.9 10*3/uL High 0.0-0.8 [facility] Comment on above: Performed By: #### F ER, FE and TIBC #### [address] Monocytes/100 WBC (Bld) 7.4 % Normal . [facility] Comment on above: Performed By: #### F ER, FE and TIBC #### [address] Neutrophils (Bld) [#/Vol] 10.7 10*3/uL High 1.8-7.7 [facility] Comment on above: Performed By: #### F ER, FE and TIBC #### [address] Neutrophils/100 WBC (Bld) 87.9 % Normal . [facility] Comment on above: Performed By: #### F ER, FE and TIBC #### [address] NRBC% 0.1 /100{WBC} Normal 0-0.5 [facility] Comment on above: Performed By: #### F ER, FE and TIBC #### [facility] [address] Street Platelet mean volume (Bld) [Entitic vol] 8.0 fL Normal 6.3-10.7 [facility] Comment on above: Performed By: #### F ER, FE and TIBC #### [facility] [address] [id number] [place] Platelets (Bld) [#/Vol] 253 10*3/uL Normal 150-450 [facility] Comment on above: Performed By: #### F ER, FE and TIBC #### [facility] [address] RBC (Bld) [#/Vol] 3.73 10*6/uL Normal 3.60-5.00 [facility] Comment on above: Performed By: #### F ER, FE and TIBC #### [facility] [address] WBC (Bld) [#/Vol] 12.2 10*3/uL High 3.8-11.6 [facility] Comment on above: Performed By: #### F ER, FE and TIBC #### [facility] [address] ECG 12 lead ECGon 09-28-2022 ECG 12 lead ECG [facility] [place] [address] [place] [address] Electrocardiograph Report Signed Patient: Annamaria Garcia MR#: [id number] : 1935 Acct:[id number] Age/Sex: 87 / F ADM Date: 09/28/22 Loc: Room: [address] [place] [address] Type: ADM IN Attending Dr: Adama Kothari [...] ECG No previous ECGs available Confirmed by ETSEE KNIGHT MD ([id number]) on 09/28/2022 3:08:35 PM Referred By: Electronically Signed By:ESTEE KNIGHT MD Transcribed By: MUS Signed By Estee Knight MD 0 09/28/22 1508 Normal [facility] ER URINE PROFILEon 3 Bilirubin Ql (U) Negative Normal NEGATIVE [facility] Comment on above: Performed By: #### C MP, CMADM #### [facility] [address] [place] [address] Dr. Nidhi Dawn Clarity (U) CLEAR Normal CLEAR [facility] Comment on above: Performed By: #### C MP, CMADM #### [facility] [address] [place] [address] Dr. Nidhi Dawn Color (U) LT. YELLOW Normal YELLOW [facility] Comment on above: Performed By: #### C MP, CMADM #### [facility] [address] [place] [address] Dr. Nidhi Dawn ERUAHRadha A micrscopic examina tion will be performed if indicated. Normal [facility] Comment on above: Performed By: #### C MP, CMADM #### [facility] [address] [place] [address] Dr. Nidhi Dawn Glucose Ql (U) Negative Normal NEGATIVE [facility] Comment on above: Performed By: #### C MP, CMADM #### [facility] [address] [address] [address] Nidhi Dawn Hemoglobin Ql (U) Negative Normal NEGATIVE [facility] Comment on above: Performed By: #### C MP, CMADM #### [facility] [address] [place] [address] Dr. Nidhi Dawn Ketones Ql (U) 40 mg/dl Abnormal NEGATIVE [facility] Comment on above: Performed By: #### C MP, CMADM #### [facility] [address] [place] [address] Dr. Nidhi Dawn LEUKOCYTES Negative Normal NEGATIVE [facility] Comment on above: Performed By: #### C MP, CMADM #### [facility] [address] [address] [address] Nidhi Dawn Nitrite Ql (U) Negative Normal NEGATIVE [facility] Comment on above: Performed By: #### C MP, CMADM #### [facility] [address] [address] [address] Nidhi Dawn pH (U) 7.0 [pH] Normal 5-9 [facility] Comment on above: Performed By: #### C MP, CMADM #### [facility] [address] [address] [address] Nidhi Dawn SPEC GRAVITY 1.010 Normal 1.005-<=1.0 25 [facility] Comment on above: Performed By: #### C DONA, CMADM #### [facility] [address] [address] [address] Nidhi Dawn UA PROTEIN TRACE Normal NEGATIVE/ TRACE [facility] Comment on above: Performed By: #### C DONA, CMADM #### [facility] [address] [address] [address] Nidhi Dawn UR MICRO IND NOT INDICATED Normal [facility] Comment on above: Performed By: #### C DONA, CMADM #### [facility] [address] [address] [address] Nidhi Dawn Urobilinogen Qn (U) 0.2 {Lawrence'U}/dL Normal 0.2 - 1. 0 [facility] Comment on above: Performed By: #### C DONA, CMADM #### [facility] [address] [address] [address] Nidhi Dawn Glucose Glucometer ([facility]) [M ass/Vol]Ordered By: Juliet Green on 09-28-2022 Glucose [Mass/Vol] 107 mg/dL [facility] Comment on above: Random Glucose Refer ence Range is dependent on time and content of last meal. Glucose of more than 200 mg/dL in a nonstressed, ambulatory subject supports the diagnosis of Diabetes Mellitus. Glucose Poct Glucometerson 0 09-28-2022 Glucose [Mass/Vol] 107 mg/dL Normal [facility] Comment on above: Result Comment: [facility] Glucose Reference Range is dependent on time and content of last meal. Glucose of more than 200 mg/dL in a nonstressed, ambulatory subject supports the diagnosis of Diabetes Mellitus. PERFORMED BY: [place] [address] PATHOLOGIST DEPARTMENT SECRETARY CLARICE OSWALD M.D. Performed By: #### G OSCAR #### Point of Care testing , Laboratory - CoagulationOrde red By: Juliet Green on 09-28-2022 PT Coag (PPP) [Time] 13.1 s 9.0-12.9 [facility] Magnesiumon 09-28-2022 Magnesium [Mass/Vol] 1.9 mg/dL Normal 1.9-2.7 [facility] Comment on above: Order Comment: Comme nt add Result Comment: PERF ORMED BY: [place] [address] PATHOLOGIST DEPARTMENT SECRETARY CLARICE OSWALD M.D. Performed By: #### M G #### [address] Magnesium [Mass/volume] in S enma or PlasmaOrdered By: Juliet Green on 09-28-2022 Magnesium [Mass/Vol] 1.9 mg/dL 1.9-2.7 [facility] Platelet poor plasma interna tional normalized ratio (INR) by coagulation assay (relatOrdered By: Juliet Green on 09-28-2022 INR Coag (PPP) [Relative time] 1.1 {INR} [facility] Comment on above: INR Therapeutic Rang [...] Coag (PPP) [Relative time] 1.1 {INR} Normal [facility] Comment on above: Result Comment: INR [...] heart valves: 3 - 4.5 PERFORMED BY: [place] [address] PATHOLOGIST DEPARTMENT SECRETARY CLARICE OSWALD M.D. Performed By: #### F ER, FE and TIBC #### [address] PT Coag (PPP) [Time] 13.1 s High 9.0-12.9 [facility] Comment on above: Performed By: #### F ER, FE and TIBC #### [place] [id number] [facility] Vitamin B12on 09-28-2022 Cobalamin (Vitamin B12) [Mass/Vol] 202 pg/mL Normal 180-914 [facility] Comment on above: Result Comment: PERF ORMED BY: [place] [address] PATHOLOGIST DEPARTMENT SECRETARY CLARICE OSWALD M.D. Performed By: #### B 12 #### [facility] [address] [place] [address] Vitamin B12 ser/plasOrdered By: Mimi Artis on 09-28-2022 Cobalamin (Vitamin B12) [Mass/Vol] 202 pg/mL 180-914 [facility] Vitamin D 25 Hydroxy,Tot+D2+ D3on 09-28-2022 Vitamin D 25 OH (LC) 33 ng/mL Normal . [facility] Comment on above: Result Comment: Refe rence Range: All Ages: Target levels 30 - 100 Performed By: #### F ER, FE and TIBC #### [facility] [address] [place] [address] Vitamin D-2 <1.0 Normal . [facility] Comment on above: Result Comment: This test was developed and its performance characteristics determined by [facility]. It has not been cleared or approved by the Food and Drug Administration. Performed By: #### F ER, FE and TIBC #### [facility] [address] [place] [address] Vitamin D-3 33 ng/mL Normal . [facility] Comment on above: Result Comment: This test was developed and its performance characteristics determined by [facility]. It has not been cleared or approved by the Food and Drug Administration. Performed at: [facility] [address] [place] [id number] Sponge Maker: Avel Dempsey MD, Phone: [phone] PERFORMED BY: [place] [address] PATHOLOGIST DEPARTMENT SECRETARY CLARICE OSWALD M.D. Performed By: #### F ER, FE and TIBC #### [address] XR femur LT 2V*on 09-28-2022 XR femur LT 2V* [facility] [place] [address] [place] [address] XRay Report Signed Patient: Annamaria Garcia MR#: [id number] : 1935 Acct:[id number] Age/Sex: 87 / F ADM Date: 09/28/22 Loc: Room: [address] [place] [address] Type: ADM IN Attending Dr: Juliet Green MD Copies to: MD Juliet Lennon MD Ordering Provider: Bulmaro Moses MD Date of Service: 09/28/22 XR/XR femur LT 2V*: left fem head fx ([id number]) XR/XR low pelvis w/LT x-table hip: left [...] fractures or dislocation are seen within the [id number]. There is mild degenerative change at the knee with medial tibiofemoral joint compartment narrowing and minor tricompartment marginal spurring. There are no focal soft tissue findings. IMPRESSION: NO ACUTE BONY INJURY WITHIN THE [id number]. Impression dictated by: Angie Francisco M.D.09/28/2022 7:21 AM Dictation Location: [place] [address] Transcribed By: [facility] 09/28/22720 Dictated By: Angie Francisco MD 09/28/22 0716 Signed By: 09/28/22720 [facility] CARDIAC CELESTINO ADMITon 023 CK [Catalytic activity/Vol] 96 U/L Normal 26-192 [facility] Comment on above: Performed By: #### C HELENA CARCAMO #### [facility] [address] [address] [address] Nidhi Dawn CK.MB [Mass/Vol] 2.59 ng/mL Normal <=3.60 [facility] Comment on above: Performed By: #### HELENA Herzog MP #### [facility] [address] [address] [address] Nidhi Dawn HSTROP 8.6 pg/mL Normal 4.0-51.3 [facility] Comment on above: Result Comment: CUT- OFF POINTS HAVE BEEN ESTABLISHED BASED ON THE FOURTH UNIVERSAL DEFINITIONS OF MYOCARDIAL INFARCTION. THE UPPER REFERENCE LIMIT (URL) OF TROPONIN, DEFINED THE 99TH PERCENTILE OF cTnI DISTRIBUTION IN A REFERENCE POPULATION, HAS BEEN CONFIRMED THE DECISION THRESHOLD FOR [place] DIAGNOSIS. Performed By: #### C HELENA CARCAMO #### [facility] [address] [place] [address] Dr. Nidhi Dawn BOBBY 75 ng/mL Normal 9-82 [facility] Comment on above: Performed By: #### C HELENA CARCAMO #### [facility] [address] [place] [address] Dr. Nidhi Dawn CBC AUTO DIFFon 09-27-2022 BASO # 0.0 103/ul Normal 0.0-0.1 [facility] Comment on above: Performed By: #### C BC #### [facility] [address] [place] [address] Dr. Nidhi Dawn Basophils/100 WBC (Bld) 0.2 % Normal 0.2-2.0 [facility] Comment on above: Performed By: #### C BC #### [facility] [address] [place] [address] Dr. Nidhi Dawn EO # 0.0 103/ul Normal 0.0-0.7 [facility] Comment on above: Performed By: #### C BC #### [facility] [address] [place] [address] Dr. Nidhi Dawn Eosinophils/100 WBC (Bld) 0.1 % Critically low 0.9-7.0 [facility] Comment on above: Performed By: #### C BC #### [facility] [address] [place] [address] Dr. Nidhi Dawn Erythrocyte distribution width (RBC) [Ratio] 13.2 % Normal 11.0-15.0 [facility] Comment on above: Performed By: #### C BC #### [facility] [address] [place] [address] Dr. Nidhi Dawn Hematocrit (Bld) [Volume fraction] 34.6 % Critically low 36.0-48.0 [facility] Comment on above: Performed By: #### C BC #### [facility] [address] [place] [address] Dr. Nidhi Dawn Hemoglobin (Bld) [Mass/Vol] 11.7 g/dL Critically low 12.0-16.0 [facility] Comment on above: Performed By: #### C BC #### [facility] [address] [place] [address] Dr. Nidhi Dawn IG # 0.06 10e3/ul Critically high 0.00-0.03 [facility] Comment on above: Performed By: #### C BC #### [facility] [address] [place] [address] Dr. Nidhi Dawn IG % 0.4 % Normal 0.0-0.5 [facility] Comment on above: Performed By: #### C BC #### [facility] [address] [place] [address] Dr. Nidhi Dawn LYMPH # 1.1 103/ul Critically low 1.2-3.8 [facility] Comment on above: Performed By: #### C BC #### [facility] [address] [place] [address] Dr. Nidhi Dawn Lymphocytes/100 WBC (Bld) 7.0 % Critically low 20.5-60.0 [facility] Comment on above: Performed By: #### C BC #### [facility] [address] [place] [address] Dr. Nidhi Dawn MANUAL DIFF REQ NO Normal [facility] Comment on above: Performed By: #### C BC #### [facility] [address] [place] [address] Dr. Nidhi Dawn MCH (RBC) [Entitic mass] 31.0 pg Normal 26.7-34.0 [facility] Comment on above: Performed By: #### C BC #### [facility] [address] [place] [address] Dr. Nidhi Dawn MCHC (RBC) [Mass/Vol] 33.8 g/dL Normal 29.9-35.2 [facility] Comment on above: Performed By: #### C BC #### [facility] [address] [place] [address] Dr. Nidhi Dawn MCV (RBC) [Entitic vol] 91.8 fL Normal 81.0-99.0 [facility] Comment on above: Performed By: #### C BC #### [facility] [address] [place] [address] Dr. Nidhi Dawn MONO # 1.1 103/ul Critically high 0.3-0.8 [facility] Comment on above: Performed By: #### C BC #### [facility] [address] [place] [address] Dr. Nidhi Dawn Monocytes/100 WBC (Bld) 7.0 % Normal 1.7-12.0 [facility] Comment on above: Performed By: #### C BC #### [facility] [address] [place] [address] Dr. Nidhi Dawn NEUT # 13.1 103/ul Critically high 1.4-6.5 [facility] Comment on above: Performed By: #### C BC #### [facility] [address] [place] [address] Dr. Nidhi Dawn Neutrophils/100 WBC (Bld) 85.3 % Critically high 43.0-75.0 [facility] Comment on above: Performed By: #### C BC #### [facility] [address] [place] [address] Dr. Nidhi Dawn Platelet mean volume (Bld) [Entitic vol] 9.1 fL Critically low 9.5-13.5 [facility] Comment on above: Performed By: #### C BC #### [facility] [address] [place] [address] Dr. Nidhi Dawn PLT 274 103/ul Normal 150-450 [facility] Comment on above: Performed By: #### C BC #### [facility] [address] [place] [address] Dr. Nidhi Dawn RBC 3.77 106/ul Critically low 4.20-5.40 [facility] Comment on above: Performed By: #### C BC #### [facility] [address] [place] [address] Dr. Nidhi Dawn WBC 15.4 103/ul Critically high 4.0-11.0 [facility] Comment on above: Performed By: #### C BC #### [facility] [address] [place] [address] Dr. Nidhi Dawn MAGNESIUMon 09-27-2022 Magnesium [Mass/Vol] 1.6 mg/dL Critically low 1.8-2.4 [facility] Comment on above: Performed By: #### C BC #### [facility] [address] [place] [address] Dr. Nidhi Dawn PROF 14(COMP METB)on 023 Albumin [Mass/Vol] 3.6 g/dL Normal 3.4-5.0 [facility] Comment on above: Performed By: #### C HELENA CARCAMO #### [facility] [address] [place] [address] Dr. Nidhi Dawn Albumin/Globulin [Mass ratio] 1.2 {ratio} Normal [facility] Comment on above: Performed By: #### C HELENA CARCAMO #### [facility] [address] [place] [address] Dr. Nidhi Dawn ALP [Catalytic activity/Vol] 60 U/L Normal 46-116 [facility] Comment on above: Performed By: #### C HELENA CARCAMO #### [facility] [address] [place] [address] Dr. Nidhi Dawn ALT [Catalytic activity/Vol] 18 U/L Normal 14-59 [facility] Comment on above: Performed By: #### C LEONCIO CARCAMODM #### [facility] [address] [place] [address] Dr. Nidhi Dawn Anion gap [Moles/Vol] 9.3 mmol/L Normal [facility] Comment on above: Performed By: #### C DONA, LEONCIODM #### [facility] [address] [place] [address] Dr. Nidhi Dawn AST [Catalytic activity/Vol] 19 U/L Normal 15-37 [facility] Comment on above: Performed By: #### C LEONCIO CARCAMODM #### [facility] [address] [place] [address] Dr. Nidhi Dawn Bilirubin [Mass/Vol] 0.4 mg/dL Normal 0.2-1.0 [facility] Comment on above: Performed By: #### C DONA, CMADM #### [facility] [address] [place] [address] Dr. Nidhi Dawn Calcium [Mass/Vol] 8.8 mg/dL Normal 8.5-10.1 [facility] Comment on above: Performed By: #### C DONA, CMADM #### [facility] [address] [place] [address] Dr. Nidhi Dawn Chloride [Moles/Vol] 104 mmol/L Normal 98-107 [facility] Comment on above: Performed By: #### C DONA, CMADM #### [facility] [address] [place] [address] Dr. Nidhi Dawn CO2 [Moles/Vol] 30.6 mmol/L Normal 21.0-32.0 [facility] Comment on above: Performed By: #### C DONA, CMADM #### [facility] [address] [place] [address] Dr. Nidhi Dawn Creatinine [Mass/Vol] 0.43 mg/dL Critically low 0.55-1.02 [facility] Comment on above: Performed By: #### C DONA, LEONCIODM #### [facility] [address] [place] [address] Dr. Nidhi Dawn EGFR-AF NIGERIAN >60 Normal >=60 [facility] Comment on above: Performed By: #### C DONA, CMADM #### [facility] [address] [place] [address] Dr. Nidhi Dawn EGFR-NON AF NIGERIAN >60 Normal >=60 [facility] Comment on above: Performed By: #### C DONA, CMADM #### [facility] [address] [place] [address] Dr. Nidhi Dawn Globulin (S) [Mass/Vol] 3.0 g/dL Normal [facility] Comment on above: Performed By: #### C DONA, CMADM #### [facility] [address] [place] [address] Dr. Nidhi Dawn Glucose [Mass/Vol] 152 mg/dL Critically high 74-106 [facility] Comment on above: Performed By: #### C DONA, CMADM #### [facility] [address] [address] [address] Nidhi Dawn Potassium [Moles/Vol] 2.9 mmol/L Critically low 3.5-5.1 [facility] Comment on above: Performed By: #### C DONA, CMADM #### [facility] [address] [address] [address] Nidhi Dawn Protein [Mass/Vol] 6.6 g/dL Normal 6.4-8.2 [facility] Comment on above: Performed By: #### C DONA, CMADM #### [facility] [address] [address] [address] Nidhi Dawn Sodium [Moles/Vol] 140 mmol/L Normal 136-145 [facility] Comment on above: Performed By: #### C DONA, CMADM #### [facility] [address] [address] [address] Nidhi Dawn Urea nitrogen [Mass/Vol] 5.0 mg/dL Critically low 7.0-18.0 [facility] Comment on above: Performed By: #### C DONA, CMADM #### [facility] [address] [address] [address] Nidhi Dawn Urea nitrogen/Creatinine [Mass ratio] 11.6 mg/mg Normal [facility] Comment on above: Performed By: #### C DONA, CMADM #### [facility] [address] [address] [address] PELVIS WO CONon [...] TAYLOR PENA Date: 2022-05-02 16:39 Normal [facility] T4 LABCORPon 04-05-2022 T4 [Mass/Vol] 6.9 ug/dL Normal 4.5-12.0 [facility] Comment on above: Performed By: #### C BC #### [facility] [address] [address] [address] Nidhi Dawn CBC AUTO DIFFon 04-04-2022 BASO # 0.0 103/ul Normal 0.0-0.1 [facility] Comment on above: Performed By: #### C BC #### [facility] [address] [address] [address] Nidhi Dawn Basophils/100 WBC (Bld) 0.4 % Normal 0.2-2.0 [facility] Comment on above: Performed By: #### C BC #### [facility] [address] [place] [address] Dr. Nidhi Dawn EO # 0.2 103/ul Normal 0.0-0.7 [facility] Comment on above: Performed By: #### C BC #### [facility] [address] [place] [address] Dr. Nidhi Dawn Eosinophils/100 WBC (Bld) 3.1 % Normal 0.9-7.0 [facility] Comment on above: Performed By: #### C BC #### [facility] [address] [place] [address] Dr. Nidhi Dawn Erythrocyte distribution width (RBC) [Ratio] 13.6 % Normal 11.0-15.0 [facility] Comment on above: Performed By: #### C BC #### [facility] [address] [place] [address] Dr. Nidhi Dawn Hematocrit (Bld) [Volume fraction] 30.8 % Critically low 36.0-48.0 [facility] Comment on above: Performed By: #### C BC #### [facility] [address] [place] [address] Dr. Nidhi Dawn Hemoglobin (Bld) [Mass/Vol] 10.3 g/dL Critically low 12.0-16.0 [facility] Comment on above: Performed By: #### C BC #### [facility] [address] [place] [address] Dr. Nidhi Dawn IG # 0.04 10e3/ul Critically high 0.00-0.03 [facility] Comment on above: Performed By: #### C BC #### [facility] [address] [place] [address] Dr. Nidhi Dawn IG % 0.6 % Critically high 0.0-0.5 [facility] Comment on above: Performed By: #### C BC #### [facility] [address] [place] [address] Dr. Nidhi Dawn LYMPH # 1.3 103/ul Normal 1.2-3.8 [facility] Comment on above: Performed By: #### C BC #### [facility] [address] [place] [address] Dr. Nidhi Dawn Lymphocytes/100 WBC (Bld) 18.3 % Critically low 20.5-60.0 [facility] Comment on above: Performed By: #### C BC #### [facility] [facility] [address] [place] [address] Dr. Nidhi Dawn MANUAL DIFF REQ NO Normal [facility] Comment on above: Performed By: #### C BC #### [facility] [address] [place] [address] Dr. Nidhi Dawn MCH (RBC) [Entitic mass] 31.0 pg Normal 26.7-34.0 [facility] Comment on above: Performed By: #### C BC #### [facility] [address] [place] [address] Dr. Nidhi Dawn MCHC (RBC) [Mass/Vol] 33.4 g/dL Normal 29.9-35.2 [facility] Comment on above: Performed By: #### C BC #### [facility] [address] [place] [address] Dr. Nidhi Dawn MCV (RBC) [Entitic vol] 92.8 fL Normal 81.0-99.0 [facility] Comment on above: Performed By: #### C BC #### [facility] [address] [place] [address] Dr. Nidhi Dawn MONO # 1.0 103/ul Critically high 0.3-0.8 [facility] Comment on above: Performed By: #### C BC #### [facility] [address] [place] [address] Dr. Nidhi Dawn Monocytes/100 WBC (Bld) 13.7 % Critically high 1.7-12.0 [facility] Comment on above: Performed By: #### C BC #### [facility] [address] [place] [address] Dr. Nidhi Dawn NEUT # 4.5 103/ul Normal 1.4-6.5 [facility] Comment on above: Performed By: #### C BC #### [facility] [address] [place] [address] Dr. Nidhi Dawn Neutrophils/100 WBC (Bld) 63.9 % Normal 43.0-75.0 [facility] Comment on above: Performed By: #### C BC #### [facility] [address] [place] [address] Dr. Nidhi Dawn Platelet mean volume (Bld) [Entitic vol] 9.6 fL Normal 9.5-13.5 [facility] Comment on above: Performed By: #### C BC #### [facility] [address] [place] [address] Dr. Nidhi Dawn PLT 228 103/ul Normal 150-450 [facility] Comment on above: Performed By: #### C BC #### [facility] [address] [place] [address] Dr. Nidhi Dawn RBC 3.32 106/ul Critically low 4.20-5.40 [facility] Comment on above: Performed By: #### C BC #### [facility] [address] [place] [address] Dr. Nidhi Dawn WBC 7.0 103/ul Normal 4.0-11.0 [facility] Comment on above: Performed By: #### C BC #### [facility] [address] [place] [address] Dr. Nidhi Dawn CULTURE URINEon 04-04-2022 CULTURE [...] Trimethoprim/Sulfamethoxaz ole <=20 S F Normal [facility] Comment on above: Performed By: #### C HELENA CARCAMO #### [facility] [address] [place] [address] Dr. Nidhi Dawn PROF CHEM 8 (BAS METB)on Anion gap [Moles/Vol] 8.8 mmol/L Normal [facility] Comment on above: Performed By: #### C HELENA CARCAMO #### [facility] [address] [place] [address] Dr. Nidhi Dawn Calcium [Mass/Vol] 8.7 mg/dL Normal 8.5-10.1 [facility] Comment on above: Performed By: #### C HELENA CARCAMO #### [facility] [address] [place] [address] Dr. Nidhi Dawn Chloride [Moles/Vol] 101 mmol/L Normal 98-107 [facility] Comment on above: Performed By: #### C HELENA CARCAMO #### [facility] [address] [place] [address] Dr. Nidhi Dawn CO2 [Moles/Vol] 29.6 mmol/L Normal 21.0-32.0 [facility] Comment on above: Performed By: #### C HELENA CARCAMO #### [facility] [address] [place] [address] Dr. Nidhi Dawn Creatinine [Mass/Vol] 0.56 mg/dL Normal 0.55-1.02 [facility] Comment on above: Performed By: #### C HELENA CARCAMO #### [facility] [address] [place] [address] Dr. Nidhi Dawn EGFR-AF NIGERIAN >60 Normal >=60 [facility] Comment on above: Performed By: #### C MP, CMADM #### [facility] [address] [place] [address] Dr. Nidhi Dawn EGFR-NON AF NIGERIAN >60 Normal >=60 [facility] Comment on above: Performed By: #### C MP, CMADM #### [facility] [address] [place] [address] Dr. Nidhi Dawn Glucose [Mass/Vol] 106 mg/dL Normal 74-106 [facility] Comment on above: Performed By: #### C MP, CMADM #### [facility] [address] [place] [address] Dr. Nidhi Dawn Potassium [Moles/Vol] 3.4 mmol/L Critically low 3.5-5.1 [facility] Comment on above: Performed By: #### C DONA, CMADM #### [facility] [address] [place] [address] Dr. Nidhi Dawn Sodium [Moles/Vol] 136 mmol/L Normal 136-145 [facility] Comment on above: Performed By: #### C MP, CMADM #### [facility] [address] [place] [address] Dr. Nidhi Dawn Urea nitrogen [Mass/Vol] 10.0 mg/dL Normal 7.0-18.0 [facility] Comment on above: Performed By: #### C DONA, CMADM #### [facility] [address] [place] [address] Dr. Nidhi Dawn Urea nitrogen/Creatinine [Mass ratio] 17.9 mg/mg Normal [facility] Comment on above: Performed By: #### C MP, CMADM #### [facility] [address] [place] [address] Dr. Nidhi Danw CBC AUTO DIFFon 04-03-2022 BASO # 0.0 103/ul Normal 0.0-0.1 [facility] Comment on above: Performed By: #### C BC #### [facility] [address] [place] [address] Dr. Nidhi Dawn Basophils/100 WBC (Bld) 0.4 % Normal 0.2-2.0 [facility] Comment on above: Performed By: #### C BC #### [facility] [address] [place] [address] Dr. Nidhi Dawn EO # 0.1 103/ul Normal 0.0-0.7 [facility] Comment on above: Performed By: #### C BC #### [facility] [address] [place] [address] Dr. Nidhi Dawn Eosinophils/100 WBC (Bld) 1.0 % Normal 0.9-7.0 [facility] Comment on above: Performed By: #### C BC #### [facility] [address] [place] [address] Dr. Nidhi Dawn Erythrocyte distribution width (RBC) [Ratio] 13.6 % Normal 11.0-15.0 [facility] Comment on above: Performed By: #### C BC #### [facility] [address] [place] [address] Dr. Nidhi Dawn Hematocrit (Bld) [Volume fraction] 28.4 % Critically low 36.0-48.0 [facility] Comment on above: Performed By: #### C BC #### [facility] [address] [place] [address] Dr. Nidhi Dawn Hemoglobin (Bld) [Mass/Vol] 9.2 g/dL Critically low 12.0-16.0 [facility] Comment on above: Performed By: #### C BC #### [facility] [address] [place] [address] Dr. Nidhi Dawn IG # 0.04 10e3/ul Critically high 0.00-0.03 [facility] Comment on above: Performed By: #### C BC #### [facility] [address] [place] [address] Dr. Nidhi Dawn IG % 0.5 % Normal 0.0-0.5 [facility] Comment on above: Performed By: #### C BC #### [facility] [address] [place] [address] Dr. Nidhi Dawn LYMPH # 1.1 103/ul Critically low 1.2-3.8 [facility] Comment on above: Performed By: #### C BC #### [facility] [address] [place] [address] Dr. Nidhi Dawn Lymphocytes/100 WBC (Bld) 13.6 % Critically low 20.5-60.0 [facility] Comment on above: Performed By: #### C BC #### [facility] [address] [place] [address] Dr. Nidhi Dawn MANUAL DIFF REQ NO Normal [facility] Comment on above: Performed By: #### C BC #### [facility] [address] [place] [address] Dr. Nidhi Dawn MCH (RBC) [Entitic mass] 30.0 pg Normal 26.7-34.0 [facility] Comment on above: Performed By: #### C BC #### [facility] [address] [place] [address] Dr. Nidhi Dawn MCHC (RBC) [Mass/Vol] 32.4 g/dL Normal 29.9-35.2 [facility] Comment on above: Performed By: #### C BC #### [facility] [address] [place] [address] Dr. Nidhi Dawn MCV (RBC) [Entitic vol] 92.5 fL Normal 81.0-99.0 [facility] Comment on above: Performed By: #### C BC #### [facility] [address] [place] [address] Dr. Nidhi Dawn MONO # 0.9 103/ul Critically high 0.3-0.8 [facility] Comment on above: Performed By: #### C BC #### [facility] [address] [place] [address] Dr. Nidhi Dawn Monocytes/100 WBC (Bld) 12.1 % Critically high 1.7-12.0 [facility] Comment on above: Performed By: #### C BC #### [facility] [address] [place] [address] Dr. Nidhi Dawn NEUT # 5.7 103/ul Normal 1.4-6.5 [facility] Comment on above: Performed By: #### C BC #### [facility] [address] [place] [address] Dr. Nidhi Dawn Neutrophils/100 WBC (Bld) 72.4 % Normal 43.0-75.0 [facility] Comment on above: Performed By: #### C BC #### [facility] [address] [place] [address] Dr. Nidhi Dawn Platelet mean volume (Bld) [Entitic vol] 10.1 fL Normal 9.5-13.5 [facility] Comment on above: Performed By: #### C BC #### [facility] [address] [place] [address] Dr. Nidhi Dawn PLT 174 103/ul Normal 150-450 [facility] Comment on above: Performed By: #### C BC #### [facility] [address] [place] [address] Dr. Nidhi Dawn RBC 3.07 106/ul Critically low 4.20-5.40 [facility] Comment on above: Performed By: #### C BC #### [facility] [address] [place] [address] Dr. Nidhi Dawn WBC 7.8 103/ul Normal 4.0-11.0 [facility] Comment on above: Performed By: #### C BC #### [facility] [address] [place] [address] Dr. Nidhi Dawn PROF CHEM 8 (BAS METB)on Anion gap [Moles/Vol] 11.2 mmol/L Normal [facility] Comment on above: Performed By: #### B MP #### [facility] [address] [place] [address] Dr. Nidhi Dawn Calcium [Mass/Vol] 8.4 mg/dL Critically low 8.5-10.1 [facility] Comment on above: Performed By: #### B MP #### [facility] [address] [place] [address] Dr. Nidhi Dawn Chloride [Moles/Vol] 100 mmol/L Normal 98-107 [facility] Comment on above: Performed By: #### B MP #### [facility] [address] [address] [address] Nidhi Dawn CO2 [Moles/Vol] 27.4 mmol/L Normal 21.0-32.0 [facility] Comment on above: Performed By: #### B MP #### [facility] [address] [address] [address] Nidhi Dawn Creatinine [Mass/Vol] 0.56 mg/dL Normal 0.55-1.02 [facility] Comment on above: Performed By: #### B MP #### [facility] [address] [address] [address] Nidhi Dawn EGFR-AF NIGERIAN >60 Normal >=60 [facility] Comment on above: Performed By: #### B MP #### [facility] [address] [address] [address] Nidhi Dawn EGFR-NON AF NIGERIAN >60 Normal >=60 [facility] Comment on above: Performed By: #### B MP #### [facility] [address] [address] [address] Nidhi Dawn Glucose [Mass/Vol] 113 mg/dL Critically high 74-106 [facility] Comment on above: Performed By: #### B MP #### [facility] [address] [address] [address] Nidhi Dawn Potassium [Moles/Vol] 3.6 mmol/L Normal 3.5-5.1 [facility] Comment on above: Performed By: #### B MP #### [facility] [address] [address] [address] Nidhi Dawn Sodium [Moles/Vol] 135 mmol/L Critically low 136-145 [facility] Comment on above: Performed By: #### B MP #### [facility] [address] [address] [address] Nidhi Dawn Urea nitrogen [Mass/Vol] 14.0 mg/dL Normal 7.0-18.0 [facility] Comment on above: Performed By: #### B MP #### [facility] [address] [place] [address] Dr. Nidhi Dawn Urea nitrogen/Creatinine [Mass ratio] 25.0 mg/mg Normal [facility] Comment on above: Performed By: #### B MP #### [facility] [address] [place] [address] Dr. Nidhi Dawn CBC AUTO DIFFon 04-02-2022 BASO # 0.0 103/ul Normal 0.0-0.1 [facility] Comment on above: Performed By: #### C BC #### [facility] [address] [place] [address] Dr. Nidhi Dawn Basophils/100 WBC (Bld) 0.3 % Normal 0.2-2.0 [facility] Comment on above: Performed By: #### C BC #### [facility] [address] [place] [address] Dr. Nidhi Dawn EO # 0.1 103/ul Normal 0.0-0.7 [facility] Comment on above: Performed By: #### C BC #### [facility] [address] [place] [address] Dr. Nidhi Dawn Eosinophils/100 WBC (Bld) 0.8 % Critically low 0.9-7.0 [facility] Comment on above: Performed By: #### C BC #### [facility] [address] [place] [address] Dr. Nidhi Dawn Erythrocyte distribution width (RBC) [Ratio] 13.8 % Normal 11.0-15.0 [facility] Comment on above: Performed By: #### C BC #### [facility] [address] [place] [address] Dr. Nidhi Dawn Hematocrit (Bld) [Volume fraction] 30.1 % Critically low 36.0-48.0 [facility] Comment on above: Performed By: #### C BC #### [facility] [address] [place] [address] Dr. Nidhi Dawn Hemoglobin (Bld) [Mass/Vol] 10.1 g/dL Critically low 12.0-16.0 [facility] Comment on above: Performed By: #### C BC #### [facility] [address] [place] [address] Dr. Nidhi Dawn IG # 0.03 10e3/ul Normal 0.00-0.03 [facility] Comment on above: Performed By: #### C BC #### [facility] [address] [place] [address] Dr. Nidhi Dawn IG % 0.3 % Normal 0.0-0.5 [facility] Comment on above: Performed By: #### C BC #### [facility] [address] [place] [address] Dr. Nidhi Dawn LYMPH # 1.0 103/ul Critically low 1.2-3.8 [facility] Comment on above: Performed By: #### C BC #### [facility] [address] [place] [address] Dr. Nidhi Dawn Lymphocytes/100 WBC (Bld) 10.6 % Critically low 20.5-60.0 [facility] Comment on above: Performed By: #### C BC #### [facility] [address] [place] [address] Dr. Nidhi Dawn MANUAL DIFF REQ NO Normal [facility] Comment on above: Performed By: #### C BC #### [facility] [address] [place] [address] Dr. Nidhi Dawn MCH (RBC) [Entitic mass] 30.7 pg Normal 26.7-34.0 [facility] Comment on above: Performed By: #### C BC #### [facility] [address] [place] [address] Dr. Nidhi Dawn MCHC (RBC) [Mass/Vol] 33.6 g/dL Normal 29.9-35.2 [facility] Comment on above: Performed By: #### C BC #### [facility] [address] [place] [address] Dr. Nidhi Dawn MCV (RBC) [Entitic vol] 91.5 fL Normal 81.0-99.0 [facility] Comment on above: Performed By: #### C BC #### [facility] [address] [place] [address] Dr. Nidhi Dawn MONO # 1.0 103/ul Critically high 0.3-0.8 [facility] Comment on above: Performed By: #### C BC #### [facility] [address] [place] [address] Dr. Nidhi Dawn Monocytes/100 WBC (Bld) 10.3 % Normal 1.7-12.0 [facility] Comment on above: Performed By: #### C BC #### [facility] [address] [place] [address] Dr. Nidhi Dawn NEUT # 7.4 103/ul Critically high 1.4-6.5 [facility] Comment on above: Performed By: #### C BC #### [facility] [address] [place] [address] Dr. Nidhi Dawn Neutrophils/100 WBC (Bld) 77.7 % Critically high 43.0-75.0 [facility] Comment on above: Performed By: #### C BC #### [facility] [address] [place] [address] Dr. Nidhi Dawn Platelet mean volume (Bld) [Entitic vol] 10.0 fL Normal 9.5-13.5 [facility] Comment on above: Performed By: #### C BC #### [facility] [address] [place] [address] Dr. Nidhi Dawn PLT 175 103/ul Normal 150-450 [facility] Comment on above: Performed By: #### C BC #### [facility] [address] [place] [address] Dr. Nidhi Dawn RBC 3.29 106/ul Critically low 4.20-5.40 [facility] Comment on above: Performed By: #### C BC #### [facility] [address] [place] [address] Dr. Nidhi Dawn WBC 9.5 103/ul Normal 4.0-11.0 [facility] Comment on above: Performed By: #### C BC #### [facility] [address] [place] [address] Dr. Nidhi HARDIN URINE PROFILEon 2 Bilirubin Ql (U) Negative Normal NEGATIVE [facility] Comment on above: Performed By: #### C MP, CMADM #### [facility] [address] [place] [address] Dr. Nidhi Dawn Clarity (U) CLEAR Normal CLEAR [facility] Comment on above: Performed By: #### C MP, CMADM #### [facility] [address] [place] [address] Dr. Nidhi Dawn Color (U) YELLOW Normal YELLOW [facility] Comment on above: Performed By: #### C MP, CMADM #### [facility] [address] [place] [address] Dr. Nidhi TERRAZAS A micrscopic examina tion will be performed if indicated. Normal [facility] Comment on above: Performed By: #### C MP, CMADM #### [facility] [address] [place] [address] Dr. Nidhi Dawn Glucose Ql (U) Negative Normal NEGATIVE [facility] Comment on above: Performed By: #### C MP, CMADM #### [facility] [address] [place] [address] Dr. Nidhi Dawn Hemoglobin Ql (U) MODERATE Abnormal NEGATIVE [facility] Comment on above: Performed By: #### C MP, CMADM #### [facility] [address] [place] [address] Dr. Nidhi Dawn Ketones Ql (U) TRACE Abnormal NEGATIVE [facility] Comment on above: Performed By: #### C MP, CMADM #### [facility] [address] [place] [address] Dr. Nidhi Dawn LEUKOCYTES MODERATE Abnormal NEGATIVE [facility] Comment on above: Performed By: #### C MP, CMADM #### [facility] [address] [place] [address] Dr. Nidhi Dawn Nitrite Ql (U) Positive Abnormal NEGATIVE [facility] Comment on above: Performed By: #### C MP, CMADM #### [facility] [address] [place] [address] Dr. Nidhi Dawn pH (U) [pH] Abnormal 5-9 [facility] Comment on above: Performed By: #### C DONA, LEONCIODM #### [facility] [address] [place] [address] Dr. Nidhi Dawn Protein (U) [Mass/Vol] 100 mg/dL Abnormal NEGAT GRIFFIN/ TRACE [facility] Comment on above: Performed By: #### C DONA, LEONCIODM #### [facility] [address] [place] [address] Dr. Nidhi Dawn SPEC GRAVITY <=1.005 Abnormal 1.005-<=1.0 25 [facility] Comment on above: Performed By: #### C HELENA CARCAMO #### [facility] [address] [place] [address] Dr. Nidhi Dawn UR MICRO IND INDICATED Normal [facility] Comment on above: Performed By: #### C HELENA CARCAMO #### [facility] [address] [place] [address] Dr. Nidhi Dawn Urobilinogen Qn (U) 1.0 {Lawrence'U}/dL Normal 0.2 - 1. 0 [facility] Comment on above: Performed By: #### C HELENA CARCAMO #### [facility] [address] [place] [address] Dr. Nidhi Dawn FREE T3on 04-02-2022 FREE T3 1.84 pg/mlL Critically low 2.18-3.98 [facility] Comment on above: Performed By: #### C BC #### [facility] [address] [place] [address] Dr. Nidhi Dawn PROF CHEM 8 (BAS METB)on Anion gap [Moles/Vol] 10.9 mmol/L Normal [facility] Comment on above: Performed By: #### C BC #### [facility] [address] [place] [address] Dr. Nidhi Dawn Calcium [Mass/Vol] 8.6 mg/dL Normal 8.5-10.1 [facility] Comment on above: Performed By: #### C BC #### [facility] [address] [place] [address] Dr. Nidhi Dawn Chloride [Moles/Vol] 102 mmol/L Normal 98-107 [facility] Comment on above: Performed By: #### C BC #### [facility] [address] [address] [address] Nidhi Dawn CO2 [Moles/Vol] 24.9 mmol/L Normal 21.0-32.0 [facility] Comment on above: Performed By: #### C BC #### [facility] [address] [place] [address] Dr. Nidhi Dawn Creatinine [Mass/Vol] 0.42 mg/dL Critically low 0.55-1.02 [facility] Comment on above: Performed By: #### C BC #### [facility] [address] [place] [address] Dr. Nidhi Dawn EGFR-AF NIGERIAN >60 Normal >=60 [facility] Comment on above: Performed By: #### C BC #### [facility] [address] [place] [address] Dr. Nidhi Dawn EGFR-NON AF NIGERIAN >60 Normal >=60 [facility] Comment on above: Performed By: #### C BC #### [facility] [address] [place] [address] Dr. Nidhi Dawn Glucose [Mass/Vol] 103 mg/dL Normal 74-106 [facility] Comment on above: Performed By: #### C BC #### [facility] [address] [place] [address] Dr. Nidhi Dawn Potassium [Moles/Vol] 3.8 mmol/L Normal 3.5-5.1 [facility] Comment on above: Performed By: #### C BC #### [facility] [address] [place] [address] Dr. Nidhi Dawn Sodium [Moles/Vol] 134 mmol/L Critically low 136-145 [facility] Comment on above: Performed By: #### C BC #### [facility] [address] [place] [address] Dr. Nidhi Dawn Urea nitrogen [Mass/Vol] 14.0 mg/dL Normal 7.0-18.0 [facility] Comment on above: Performed By: #### C BC #### [facility] [address] [place] [address] Dr. Nidhi Danw Urea nitrogen/Creatinine [Mass ratio] 33.3 mg/mg Normal [facility] Comment on above: Performed By: #### C BC #### [facility] [address] [place] [address] Dr. Nidhi Dawn URINE MICROSCOPIC ONLYon BACTERIA MODERATE Abnormal NONE SEEN [facility] Comment on above: Performed By: #### C MP, CMADM #### [facility] [address] [place] [address] Dr. Nidhi Dawn Bacteria identified Cx Nom (U) INDICATED Normal [facility] Comment on above: Performed By: #### C MP, CMADM #### [facility] [address] [place] [address] Dr. Nidhi Dawn CAST NONE SEEN Normal NONE SEEN [facility] Comment on above: Performed By: #### C MP, CMADM #### [facility] [address] [place] [address] Dr. Nidhi Danw Crystals LM Nom (Urine sed) NONE SEEN Normal NONE SEEN [facility] Comment on above: Performed By: #### C MP, CMADM #### [facility] [address] [place] [address] Dr. Nidhi Dawn Epithelial cells LM Ql (Urine sed) RARE Normal NONE SEEN /RARE [facility] Comment on above: Performed By: #### C MP, CMADM #### [facility] [address] [place] [address] Dr. Nidhi Dawn MUCOUS TRACE Abnormal NONE SEEN [facility] Comment on above: Performed By: #### C MP, CMADM #### [facility] [address] [place] [address] Dr. Nidhi Dawn RBC 5-10 Abnormal 0-2 [facility] Comment on above: Performed By: #### C MP, CMADM #### [facility] [address] [place] [address] Dr. Nidhi Dawn WBC 10-20 Abnormal NONE SEEN [facility] Comment on above: Performed By: #### C MP, CMADM #### [facility] [address] [place] [address] Dr. Nidhi Dawn CBC AUTO DIFFon 04-01-2022 BASO # 0.0 103/ul Normal 0.0-0.1 [facility] Comment on above: Performed By: #### C BC #### [facility] [address] [place] [address] Dr. Nidhi Dawn Basophils/100 WBC (Bld) 0.1 % Critically low 0.2-2.0 [facility] Comment on above: Performed By: #### C BC #### [facility] [address] [place] [address] Dr. Nidhi Dawn EO # 0.0 103/ul Normal 0.0-0.7 [facility] Comment on above: Performed By: #### C BC #### [facility] [address] [place] [address] Dr. Nidhi Dawn Eosinophils/100 WBC (Bld) 0.1 % Critically low 0.9-7.0 [facility] Comment on above: Performed By: #### C BC #### [facility] [address] [place] [address] Dr. Nidhi Dawn Erythrocyte distribution width (RBC) [Ratio] 13.9 % Normal 11.0-15.0 [facility] Comment on above: Performed By: #### C BC #### [facility] [address] [place] [address] Dr. Nidhi Dawn Hematocrit (Bld) [Volume fraction] 31.4 % Critically low 36.0-48.0 [facility] Comment on above: Performed By: #### C BC #### [facility] [address] [place] [address] Dr. Ndihi Dawn Hemoglobin (Bld) [Mass/Vol] 10.3 g/dL Critically low 12.0-16.0 [facility] Comment on above: Performed By: #### C BC #### [facility] [address] [place] [address] Dr. Nidhi Dawn IG # 0.03 10e3/ul Normal 0.00-0.03 [facility] Comment on above: Performed By: #### C BC #### [facility] [address] [place] [address] Dr. Nidhi Dawn IG % 0.3 % Normal 0.0-0.5 [facility] Comment on above: Performed By: #### C BC #### [facility] [address] [place] [address] Dr. Nidhi Dawn LYMPH # 1.3 103/ul Normal 1.2-3.8 [facility] Comment on above: Performed By: #### C BC #### [facility] [address] [place] [address] Dr. Nidhi Dawn Lymphocytes/100 WBC (Bld) 13.5 % Critically low 20.5-60.0 [facility] Comment on above: Performed By: #### C BC #### [facility] [address] [place] [address] Dr. Nidhi Dawn MANUAL DIFF REQ NO Normal [facility] Comment on above: Performed By: #### C BC #### [facility] [address] [place] [address] Dr. Nidhi Dawn MCH (RBC) [Entitic mass] 30.3 pg Normal 26.7-34.0 [facility] Comment on above: Performed By: #### C BC #### [facility] [address] [place] [address] Dr. Nidhi Dawn MCHC (RBC) [Mass/Vol] 32.8 g/dL Normal 29.9-35.2 [facility] Comment on above: Performed By: #### C BC #### [facility] [address] [place] [address] Dr. Nidhi Dawn MCV (RBC) [Entitic vol] 92.4 fL Normal 81.0-99.0 [facility] Comment on above: Performed By: #### C BC #### [facility] [address] [place] [address] Dr. Nidhi Dawn MONO # 1.1 103/ul Critically high 0.3-0.8 [facility] Comment on above: Performed By: #### C BC #### [facility] [address] [place] [address] Dr. Nidhi Dawn Monocytes/100 WBC (Bld) 11.1 % Normal 1.7-12.0 [facility] Comment on above: Performed By: #### C BC #### [facility] [address] [place] [address] Dr. Nidhi Dawn NEUT # 7.4 103/ul Critically high 1.4-6.5 [facility] Comment on above: Performed By: #### C BC #### [facility] [address] [place] [address] Dr. Nidih Dawn Neutrophils/100 WBC (Bld) 74.9 % Normal 43.0-75.0 [facility] Comment on above: Performed By: #### C BC #### [facility] [address] [place] [address] Dr. Nidhi Dawn Platelet mean volume (Bld) [Entitic vol] 9.9 fL Normal 9.5-13.5 [facility] Comment on above: Performed By: #### C BC #### [facility] [address] [place] [address] Dr. Nidhi Dawn PLT 219 103/ul Normal 150-450 [facility] Comment on above: Performed By: #### C BC #### [facility] [address] [place] [address] Dr. Nidhi Dawn RBC 3.40 106/ul Critically low 4.20-5.40 [facility] Comment on above: Performed By: #### C BC #### [facility] [address] [place] [address] Dr. Nidhi Dawn WBC 9.9 103/ul Normal 4.0-11.0 [facility] Comment on above: Performed By: #### C BC #### [facility] [address] [place] [address] Dr. Nidhi Dawn PROF CHEM 8 (BAS METB)on Anion gap [Moles/Vol] 9.7 mmol/L Normal [facility] Comment on above: Performed By: #### B MP #### [facility] [address] [place] [address] Dr. Nidhi Dawn Calcium [Mass/Vol] 8.5 mg/dL Normal 8.5-10.1 [facility] Comment on above: Performed By: #### B MP #### [facility] [address] [place] [address] Dr. Nidhi Dawn Chloride [Moles/Vol] 102 mmol/L Normal 98-107 [facility] Comment on above: Performed By: #### B MP #### [facility] [address] [place] [address] Dr. Nidhi Dawn CO2 [Moles/Vol] 28.8 mmol/L Normal 21.0-32.0 [facility] Comment on above: Performed By: #### B MP #### [facility] [address] [place] [address] Dr. Nidhi Dawn Creatinine [Mass/Vol] 0.54 mg/dL Critically low 0.55-1.02 [facility] Comment on above: Performed By: #### B MP #### [facility] [address] [place] [address] Dr. Nidhi Dawn EGFR-AF NIGERIAN >60 Normal >=60 [facility] Comment on above: Performed By: #### B MP #### [facility] [address] [place] [address] Dr. Nidhi Dawn EGFR-NON AF NIGERIAN >60 Normal >=60 [facility] Comment on above: Performed By: #### B MP #### [facility] [address] [place] [address] Dr. Nidhi Dawn Glucose [Mass/Vol] 108 mg/dL Critically high 74-106 [facility] Comment on above: Performed By: #### B MP #### [facility] [address] [place] [address] Dr. Nidhi Dawn Potassium [Moles/Vol] 3.5 mmol/L Normal 3.5-5.1 [facility] Comment on above: Performed By: #### B MP #### [facility] [address] [address] [address] Nidhi Dawn Sodium [Moles/Vol] 137 mmol/L Normal 136-145 [facility] Comment on above: Performed By: #### B MP #### [facility] [address] [address] [address] Nidhi Dawn Urea nitrogen [Mass/Vol] 14.0 mg/dL Normal 7.0-18.0 [facility] Comment on above: Performed By: #### B MP #### [facility] [address] [place] [address] Dr. Nidhi Dawn Urea nitrogen/Creatinine [Mass ratio] 25.9 mg/mg Normal [facility] Comment on above: Performed By: #### B MP #### [facility] [address] [place] [address] Dr. Nidhi Dawn CARDIAC CELESTINO ADMITon 022 CK [Catalytic activity/Vol] 60 U/L Normal 26-192 [facility] Comment on above: Performed By: #### C BC #### [facility] [address] [place] [address] Dr. Nidhi Dawn CK.MB [Mass/Vol] 2.29 ng/mL Normal <=3.60 [facility] Comment on above: Performed By: #### C BC #### [facility] [address] [place] [address] Dr. Nidhi Dawn HSTROP 5.8 pg/mL Normal 4.0-51.3 [facility] Comment on above: Result Comment: CUT- OFF POINTS HAVE BEEN ESTABLISHED BASED ON THE FOURTH UNIVERSAL DEFINITIONS OF MYOCARDIAL INFARCTION. THE UPPER REFERENCE LIMIT (URL) OF TROPONIN, DEFINED THE 99TH PERCENTILE OF cTnI DISTRIBUTION IN A REFERENCE POPULATION, HAS BEEN CONFIRMED THE DECISION THRESHOLD FOR [place] DIAGNOSIS. Performed By: #### C BC #### [facility] [address] [place] [address] Dr. Nidhi Dawn BOBBY 63 ng/mL Normal 9-82 [facility] Comment on above: Performed By: #### C BC #### [facility] [address] [place] [address] Dr. Nidhi Dawn CBC AUTO DIFFon 03-31-2022 BASO # 0.0 103/ul Normal 0.0-0.1 [facility] Comment on above: Performed By: #### C BC #### [facility] [address] [place] [address] Dr. Nidhi Dawn Basophils/100 WBC (Bld) 0.3 % Normal 0.2-2.0 [facility] Comment on above: Performed By: #### C BC #### [facility] [address] [place] [address] Dr. Nidhi Dawn EO # 0.0 103/ul Normal 0.0-0.7 [facility] Comment on above: Performed By: #### C BC #### [facility] [address] [place] [address] Dr. Nidhi Dawn Eosinophils/100 WBC (Bld) 0.3 % Critically low 0.9-7.0 [facility] Comment on above: Performed By: #### C BC #### [facility] [address] [place] [address] Dr. Nidhi Dawn Erythrocyte distribution width (RBC) [Ratio] 13.8 % Normal 11.0-15.0 [facility] Comment on above: Performed By: #### C BC #### [facility] [address] [place] [address] Dr. Nidhi Dawn Hematocrit (Bld) [Volume fraction] 39.3 % Normal 36.0-48.0 [facility] Comment on above: Performed By: #### C BC #### [facility] [address] [place] [address] Dr. Nidhi Dawn Hemoglobin (Bld) [Mass/Vol] 12.8 g/dL Normal 12.0-16.0 [facility] Comment on above: Performed By: #### C BC #### [facility] [address] [place] [address] Dr. Nidhi Dawn IG # 0.10 10e3/ul Critically high 0.00-0.03 [facility] Comment on above: Performed By: #### C BC #### [facility] [address] [place] [address] Dr. Nidhi Dawn IG % 0.8 % Critically high 0.0-0.5 [facility] Comment on above: Performed By: #### C BC #### [facility] [address] [place] [address] Dr. Nidhi Dawn LYMPH # 1.1 103/ul Critically low 1.2-3.8 [facility] Comment on above: Performed By: #### C BC #### [facility] [address] [place] [address] Dr. Nidhi Dawn Lymphocytes/100 WBC (Bld) 9.3 % Critically low 20.5-60.0 [facility] Comment on above: Performed By: #### C BC #### [facility] [address] [place] [address] Dr. Nidhi Dawn MANUAL DIFF REQ NO Normal [facility] Comment on above: Performed By: #### C BC #### [facility] [address] [place] [address] Dr. Nidhi Dawn MCH (RBC) [Entitic mass] 30.0 pg Normal 26.7-34.0 [facility] Comment on above: Performed By: #### C BC #### [facility] [address] [place] [address] Dr. Nidhi Dawn MCHC (RBC) [Mass/Vol] 32.6 g/dL Normal 29.9-35.2 [facility] Comment on above: Performed By: #### C BC #### [facility] [address] [place] [address] Dr. Nidhi Dawn MCV (RBC) [Entitic vol] 92.3 fL Normal 81.0-99.0 [facility] Comment on above: Performed By: #### C BC #### [facility] [address] [place] [address] Dr. Nidhi Dawn MONO # 0.8 103/ul Normal 0.3-0.8 [facility] Comment on above: Performed By: #### C BC #### [facility] [address] [place] [address] Dr. Nidhi Dawn Monocytes/100 WBC (Bld) 6.6 % Normal 1.7-12.0 [facility] Comment on above: Performed By: #### C BC #### [facility] [address] [place] [address] Dr. Nihdi Dawn NEUT # 9.8 103/ul Critically high 1.4-6.5 [facility] Comment on above: Performed By: #### C BC #### [facility] [address] [place] [address] Dr. Nidhi Dawn Neutrophils/100 WBC (Bld) 82.7 % Critically high 43.0-75.0 [facility] Comment on above: Performed By: #### C BC #### [facility] [address] [place] [address] Dr. Nidhi Dawn Platelet mean volume (Bld) [Entitic vol] 9.3 fL Critically low 9.5-13.5 [facility] Comment on above: Performed By: #### C BC #### [facility] [address] [place] [address] Dr. Nidhi Dawn PLT 284 103/ul Normal 150-450 [facility] Comment on above: Performed By: #### C BC #### [facility] [address] [place] [address] Dr. Nidhi Dawn RBC 4.26 106/ul Normal 4.20-5.40 [facility] Comment on above: Performed By: #### C BC #### [facility] [address] [place] [address] Dr. Nidhi Dawn WBC 11.8 103/ul Critically high 4.0-11.0 [facility] Comment on above: Performed By: #### C BC #### [facility] [address] [place], [place] [id number] Dr. Nidhi Danw CT CHEST W CONon 03-31-2022 CT CHEST [...] by: TAYLOR PENA Date: 2022-03-31 14:36 Normal [facility] CT CSPINE WO CONon CT CSPINE WO [...] TAYLOR PENA Date: 2022-03-31 14:48 Normal [facility] CT HEAD WO CONon 03-31-2022 CT HEAD [...] TAYLOR PENA Date: 2022-03-31 14:11 Normal [facility] CT LSPINE WO CONon 2 CT LSPINE [...] TAYLOR PENA Date: 2022-03-31 14:27 Normal [facility]on SARS-CoV-2 (COVID-19) RNA COLLINS+probe Ql (Unsp spec) Not detected Normal NOT DETECTED [facility] Comment on above: Result Comment: When diagnostic [...] for this test is supported by the [place] of Health and Human Service's declaration that [...] used). Performed By: #### C VDTB #### [facility] [address] [place] [address] Dr. Nidhi Dawn PROF 14(COMP METB)on 022 Albumin [Mass/Vol] 3.7 g/dL Normal 3.4-5.0 [facility] Comment on above: Performed By: #### C BC #### [facility] [address] [place] [address] Dr. Nidhi Dawn Albumin/Globulin [Mass ratio] 1.2 {ratio} Normal [facility] Comment on above: Performed By: #### C BC #### [facility] [address] [place] [address] Dr. Nidhi Dawn ALP [Catalytic activity/Vol] 55 U/L Normal 46-116 [facility] Comment on above: Performed By: #### C BC #### [facility] [address] [place] [address] Dr. Nidhi Dawn ALT [Catalytic activity/Vol] 24 U/L Normal 14-59 [facility] Comment on above: Performed By: #### C BC #### [facility] [address] [place] [address] Dr. Nidhi Dawn Anion gap [Moles/Vol] 9.2 mmol/L Normal [facility] Comment on above: Performed By: #### C BC #### [facility] [address] [place] [address] Dr. Nidhi Dawn AST [Catalytic activity/Vol] 19 U/L Normal 15-37 [facility] Comment on above: Performed By: #### C BC #### [facility] [address] [place] [address] Dr. Nidhi Dawn Bilirubin [Mass/Vol] 0.5 mg/dL Normal 0.2-1.0 [facility] Comment on above: Performed By: #### C BC #### [facility] [address] [place] [address] Dr. Nidhi Dawn Calcium [Mass/Vol] 9.1 mg/dL Normal 8.5-10.1 [facility] Comment on above: Performed By: #### C BC #### [facility] [address] [place] [address] Dr. Nidhi Dawn Chloride [Moles/Vol] 103 mmol/L Normal 98-107 [facility] Comment on above: Performed By: #### C BC #### [facility] [address] [place] [address] Dr. Nidhi Dawn CO2 [Moles/Vol] 28.0 mmol/L Normal 21.0-32.0 [facility] Comment on above: Performed By: #### C BC #### [facility] [address] [place] [address] Dr. Nidhi Dawn Creatinine [Mass/Vol] 0.56 mg/dL Normal 0.55-1.02 [facility] Comment on above: Performed By: #### C BC #### [facility] [address] [place] [address] Dr. Nidhi Dawn EGFR-AF NIGERIAN >60 Normal >=60 [facility] Comment on above: Performed By: #### C BC #### [facility] [address] [place] [address] Dr. Nidhi Dawn EGFR-NON AF NIGERIAN >60 Normal >=60 [facility] Comment on above: Performed By: #### C BC #### [facility] [address] [place] [address] Dr. Nidhi Dawn Globulin (S) [Mass/Vol] 3.2 g/dL Normal [facility] Comment on above: Performed By: #### C BC #### [facility] [address] [place] [address] Dr. Nidhi Dawn Glucose [Mass/Vol] 140 mg/dL Critically high 74-106 [facility] Comment on above: Performed By: #### C BC #### [facility] [address] [place] [address] Dr. Nidhi Dawn Potassium [Moles/Vol] 3.2 mmol/L Critically low 3.5-5.1 [facility] Comment on above: Performed By: #### C BC #### [facility] [address] [place] [address] Dr. Nidhi Dawn Protein [Mass/Vol] 6.9 g/dL Normal 6.4-8.2 [facility] Comment on above: Performed By: #### C BC #### [facility] [address] [address] [address] Nidhi Dawn Sodium [Moles/Vol] 137 mmol/L Normal 136-145 [facility] Comment on above: Performed By: #### C BC #### [facility] [address] [place] [address] Dr. Nidhi Dawn Urea nitrogen [Mass/Vol] 13.0 mg/dL Normal 7.0-18.0 [facility] Comment on above: Performed By: #### C BC #### [facility] [address] [place] [address] Dr. Nidhi Dawn Urea nitrogen/Creatinine [Mass ratio] 23.2 mg/mg Normal [facility] Comment on above: Performed By: #### C BC #### [facility] [address] [place] [address] Dr. Nidhi Dawn PROTIMEon 03-31-2022 INR Coag (PPP) [Relative time] 1.01 {INR} Normal [facility] Comment on above: Performed By: #### C BC #### [facility] [address] [place] [address] Dr. Nidhi Dawn INR GUIDELINES SEE BELOW Normal [facility] Comment on above: Result Comment: BASSEM RED INR: 2.0 - 3.0 CONDITIONS NOT LISTED BELOW 2.5 - 3.5 FOR PROSTHETIC HEART VALVE REPLACEMENT 2.5 - 3.5 RECURRENT THROMBOSIS Performed By: #### C BC #### [facility] [address] [place] [address] Dr. Nidhi Dawn PT Coag (PPP) [Time] 10.9 s Normal 9.0-11.6 [facility] Comment on above: Performed By: #### C BC #### [facility] [address] [place], [place] [address] Dr. Nidhi Dawn PTTon 03-31-2022 aPTT Coag (Bld) [Time] 25.7 s Normal 22.3-36.2 Th e [facility] Comment on above: Performed By: #### C BC #### [facility] [address] [id number] Nidhi Dawn TSHon 03-31-2022 TSH 3.763 uIU/mL Critically high 0.358-3.740 [facility] Comment on above: Performed By: #### C BC #### [facility] [address] [place] [address] [address] Nidhi Dawn XR HIP RT 2 [...] AVEL BUENO Date: 2022-03-31 14:33 Normal The [facility] XR HIP RT 2 3V W PELVISon [...] by: KANDIS KENNY Date: 2021-12-14 21:43 Normal [facility] CT PELVIS WO CONon 2 CT PELVIS [...] by: ISRAEL JUÁREZ Date: 2021-12-13 18:51 Normal [facility] Vital Signs Date Time Vital Sign Value Performing Clinician Facility 09-27-2023 15:42-0500 Body height 149.9 cm Ashley Olveraseth PAULSONRF ArraysROUTE SALES SPECIALIST Work Phone: [facility] 09-27-2023 15:42-0500 Body mass index (BMI) [Ratio] 19.79 kg/m2 [facility] Work Phone: [facility] 09-27-2023 15:42-0500 Body temperature 98.01 [degF] Ashley [facility]vera APRNRF [facility] Work Phone: [facility] 09-27-2023 15:42-0500 Body weight 44.45 kg Ashley Wade [facility] Work Phone: [facility] 09-27-2023 15:42-0500 Diastolic blood pressure 80 mm[Hg] Ashley Olvera RESEARCH MANUFACTURING OPERATOR-ROUTE SALES SPECIALIST Work Phone: [facility] 09-27-2023 15:42-0500 Heart rate 59 /min Ashley Olvera RESEARCH MANUFACTURING OPERATOR-ROUTE SALES SPECIALIST Work Phone: [facility] 09-27-2023 15:42-0500 Respiratory rate 18 /min Ashley Olvera RESEARCH MANUFACTURING OPERATOR-ROUTE SALES SPECIALIST Work Phone: [facility] 09-27-2023 15:42-0500 SaO2% (BldA) [Mass fraction] 93 % Ashley Olvera RESEARCH MANUFACTURING OPERATOR-ROUTE SALES SPECIALIST Work Phone: [facility] 09-27-2023 15:42-0500 Systolic blood pressure 122 mm[Hg] Ashley Olvera RESEARCH MANUFACTURING OPERATOR-ROUTE SALES SPECIALIST Work Phone: [facility] 10-03-2022 16:00-0400 Body temperature 97.6 [degF] SENIOR COMPLIANCE ANALYST-C Ashley Olvera Work Phone: [facility] 10-03-2022 16:00-0400 Diastolic blood pressure 79 mm[Hg] SENIOR COMPLIANCE ANALYST-C Ashley Olvera Work Phone: [facility] 10-03-2022 16:00-0400 Heart rate 77 /min SENIOR COMPLIANCE ANALYST-C Ashley Ovlera Work Phone: [facility] 10-03-2022 16:00-0400 Respiratory rate 16 /min SENIOR COMPLIANCE ANALYST-C Ashley Olvera Work Phone: [facility] 10-03-2022 16:00-0400 SaO2% (BldA) [Mass fraction] 100 % SENIOR COMPLIANCE ANALYST-C Ashley Olvera Work Phone: [facility] 10-03-2022 16:00-0400 Systolic blood pressure 156 mm[Hg] SENIOR COMPLIANCE ANALYST-C Ashley Olvera Work Phone: [facility] 10-02-2022 20:00-0400 Inhaled oxygen flow rate 2 L/min SENIOR COMPLIANCE ANALYST-Mino Olvera Work Phone: [facility] 09-29-2022 06:00-0500 Body weight 49 kg SENIOR COMPLIANCE ANALYST-Mino Olvera Work Phone: [facility] 09-28-2022 16:10-0500 Body height 147.32 cm SENIOR COMPLIANCE ANALYST-Mino Olvera Work Phone: [facility] 09-28-2022 16:10-0500 Body mass index (BMI) [Ratio] 18.6 kg/m2 SENIOR COMPLIANCE ANALYST-Mino Olvera Work Phone: [facility] 12-13-2021 16:30-0400 Body height 152.4 cm Rylie Brooksmond Other [employer] Other 12-13-2021 16:30-0400 Body mass index (BMI) [Ratio] 19.33 kg/m2 Rylie Galvan Other [employer] Other 12-13-2021 16:30-0400 Body temperature 98 [degF] Rylie Galvan Other [employer] Other 12-13-2021 16:30-0400 Body weight 44.91 kg Rylie Brooksmond Other [employer] Other 12-13-2021 16:30-0400 Diastolic blood pressure 83 mm[Hg] Rylie Brooksmond Other [employer] Other 12-13-2021 16:30-0400 Respiratory rate 18 /min Rylie Brooksmond Other [employer] Other 12-13-2021 16:30-0400 SaO2% (BldA) [Mass fraction] 97 % Rylie Galvan Other [employer] Other 12-13-2021 16:30-0400 Systolic blood pressure 130 mm[Hg] Rylie Galvan Other [employer] Other Encounters Encounter Date Encounter Type Care Provider Facility Start: 09-27-2023 End: 09-27-2023 ambulatory [facility] Start: 09-27-2023 End: 09-27-2023 Office outpatient visit 15 minutes [facility] RESEARCH MANUFACTURING OPERATOR-ROUTE SALES SPECIALIST Work Phone: [facility] Comment on above: Rash and nonspecific skin eruption (Primary Dx); 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); Current moderate episode of major depressive disorder without prior episode ([facility]); Malignant neoplasm of colon, unspecified part of colon ([facility]) Start: 07-13-2023 End: 07-13-2023 ambulatory [facility] Start: 07-13-2023 Encounter for genera l adult medical examination without abnormal findings [facility] Start: 10-25-2022 End: 10-25-2022 ambulatory Leighton Vlaente Other [employer] Other Start: 10-25-2022 Telephone encounter Leighton Valente [facility] Start: 10-14-2022 End: 10-14-2022 ambulatory ASHLEY OLVERA Facility:[facility] Start: 09-28-2022 End: 10-03-2022 Evaluation and management of inpatient Leighton Valente Facility:[facility] Start: 09-28-2022 End: 10-03-2022 Evaluation and management of inpatient SENIOR COMPLIANCE ANALYST-C Ashley Olvera Work Phone: [facility] Work Phone: Start: 09-27-2022 End: 03-08-2023 ambulatory JACIEL DIAB . Facility:[facility] Start: 05-02-2022 End: 05-02-2022 ambulatory ADELE NIYA . Facility:[facility] Start: 04-13-2022 Patient encounter procedure Storm Russell APRN.HEAD OF OPERATION AND LOGISTICS Work Phone: [facility] Start: 04-13-2022 Progress Note Storm GARCIA RN.HEAD OF OPERATION AND LOGISTICS Work Phone: [facility] Department Start: 04-08-2022 Patient encounter procedure Storm Russell APRN.HEAD OF OPERATION AND LOGISTICS Work Phone: [facility] Start: 04-08-2022 Progress Note Storm GARCIA RN.HEAD OF OPERATION AND LOGISTICS Work Phone: [facility] Start: 04-05-2022 Patient encounter procedure Debra Vásquez Work Phone: [facility] Start: 04-05-2022 Progress Note Itri A Fahad Work Phone: [facility] Coord[facility] Start: 03-31-2022 End: 04-04-2022 Evaluation and management of inpatient DR GAB FONSECA . Facility:[facility] Start: 12-13-2021 End: 12-13-[address] BONIFACIO LEMOS . 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-ROUTE SALES SPECIALIST Work Phone: Start: 10-03-2022 Plain X-ray of left hip SENIOR COMPLIANCE ANALYST-C Ashley Olvera Work Phone: Start: 09-28-2022 Plain X-ray of left hip SENIOR COMPLIANCE ANALYST-C Ashley Olvera Work Phone: Start: 09-28-2022 Open reduction with internal fixation SENIOR COMPLIANCE ANALYST-C Ashley Olvera Work Phone: Start: 09-28-2022 Plain X-ray of left femur SENIOR COMPLIANCE ANALYST-C Ashley Olvera Work Phone: Start: 09-28-2022 Plain X-ray of left hip SENIOR COMPLIANCE ANALYST-C Ashley Olvera Work Phone: Plan of Treatment Date Care Activity Detail Author Start: 06-14-2030 DTaP,Tdap and Td Vaccines (3 - Td or Tdap) DTaP,Tdap and Td Vaccines (3 - Td or Tdap) [facility] Start: 09-27-2024 Tobacco Screening Tobacco Screening [facility] Start: 09-26-2024 Adult BMI Screening Adult BMI Screening [facility] Start: 09-26-2024 Depression Screening Depression Screening [facility] Start: 09-26-2024 Fall Risk Screening Fall Risk Screening [facility] Start: 07-13-2024 Medicare Annual Wellness Visit Medicare Annual Wellness Visit [facility] Start: 03-20-2024 End: 03-20-2024 Patient encounter procedure 03/20/2024 11:20 AM EDT Office Visit [facility] [address] [place] [address] Ashley Olvera, RESEARCH MANUFACTURING OPERATOR-ROUTE SALES SPECIALIST [address] [place] [address] [facility] Start: 03-24-2023 COVID-19 Vaccine ( season) COVID-19 Vaccine ( season) [facility] Start: 10-03-2022 [facility] Start: 09-28-2022 [facility] Start: 09-28-2022 Consultation [facility] Start: 09-28-2022 Hospital admission [facility] Start: 03-24-2022 Influenza vaccination INFLUENZA (#1) [facility] Start: 07-24-2021 ADVANCE DIRECTIVE DISCUSSION ADVANCE DIRECTIVE DISCUSSION [facility] Start: 04-09-2019 DIABETES SCREEN DIABETES SCREEN [facility] Start: 2000 BONE DENSITY BONE DENSITY [facility] Start: 2000 PNEUMOCOCCAL: 65+ (1 - PCV) PNEUMOCOCCAL: 65+ (1 - PCV) [facility] Start: 1985 SHINGRIX VACCINE (1 of 2) SHINGRIX VACCINE (1 of 2) [facility] Start: 1954 Administration of varicella zoster vaccine Zoster (Shingles) Vaccine (1 of 2) [facility] Start: 1954 Urine microalbumin profile DTAP,TDAP,TD (1 - Tdap) [facility] Start: 03-10-1936 COVID-19 VACCINE (#1) COVID-19 VACCINE (#1) [facility] 25-hydroxyvitamin D2 [Mass/volume] in Serum or Plasma [facility] 25-hydroxyvitamin D3 [Mass/volume] in Serum or Plasma [facility] 25-Hydroxyvitamin D3+25-Hydroxyvitamin D2 [Mass/volume] in Serum or Plasma [facility] Patient referral [facility] Work Phone: XR Hip - left 2 Views [facility] Immunizations Immunization Date Immunization Notes Care Provider Fa [facility] 04-11-2023 Influenza Vaccine, Quadrivalent, Adjuvanted Ashley Olvera RESEARCH MANUFACTURING OPERATOR-ROUTE SALES SPECIALIST Work Phone: [facility] 05-09-2022 influenza, seasonal, injectable Ashley Olvera RESEARCH MANUFACTURING OPERATOR-ROUTE SALES SPECIALIST Work Phone: [facility] 05-09-2022 pneumococcal polysaccharide vaccine, 23 valent Ashley Olvera RESEARCH MANUFACTURING OPERATOR-ROUTE SALES SPECIALIST Work Phone: [facility] 04-21-2022 Influenza Vaccine, Quadrivalent, Adjuvanted Ashley Olvera RESEARCH MANUFACTURING OPERATOR-ROUTE SALES SPECIALIST Work Phone: [facility] 12-06-2021 COVID-19, mRNA, LNP- S, PF, 30mcg/0.3mL Dose Ashley Olvera RESEARCH MANUFACTURING OPERATOR-ROUTE SALES SPECIALIST Work Phone: [facility] 11-01-2021 COVID-19, mRNA, LNP- S, PF, 30mcg/0.3mL Dose Ashley Olvera RESEARCH MANUFACTURING OPERATOR-ROUTE SALES SPECIALIST Work Phone: [facility] 05-17-2021 Influenza, High-dose , Quadrivalent Ashley Olvera RESEARCH MANUFACTURING OPERATOR-ROUTE SALES SPECIALIST Work Phone: [facility] 06-14-2020 diphtheria, tetanus toxoids and pertussis vaccine Ashley Olvera RESEARCH MANUFACTURING OPERATOR-ROUTE SALES SPECIALIST Work Phone: [facility] 05-12-2020 Influenza, High-dose , Quadrivalent Ashley Olvera RESEARCH MANUFACTURING OPERATOR-ROUTE SALES SPECIALIST Work Phone: [facility] 05-07-2019 influenza, high dose seasonal, preservative-free Ashley Olvera RESEARCH MANUFACTURING OPERATOR-ROUTE SALES SPECIALIST Work Phone: [facility] 04-17-2019 pneumococcal polysaccharide vaccine, 23 valent Ashley Olvera RESEARCH MANUFACTURING OPERATOR-ROUTE SALES SPECIALIST Work Phone: [facility] 05-07-2018 influenza, high dose seasonal, preservative-free Ashley Olvera RESEARCH MANUFACTURING OPERATOR-ROUTE SALES SPECIALIST Work Phone: [facility] 05-09-2017 influenza, injectabl e, quadrivalent, preservative free Ashley Olvera RESEARCH MANUFACTURING OPERATOR-ROUTE SALES SPECIALIST Work Phone: [facility] 01-05-2017 pneumococcal conjuga te vaccine, 13 valent Ashley Olvera RESEARCH MANUFACTURING OPERATOR-ROUTE SALES SPECIALIST Work Phone: [facility] 01-05-2017 tetanus toxoid, redu cristino diphtheria toxoid, and acellular pertussis vaccine, adsorbed Ashley Olvera RESEARCH MANUFACTURING OPERATOR-ROUTE SALES SPECIALIST Work Phone: [facility] 05-22-2015 influenza, injectabl e, quadrivalent, preservative free Ashley Olvera RESEARCH MANUFACTURING OPERATOR-ROUTE SALES SPECIALIST Work Phone: [facility] 04-21-2014 influenza, seasonal, injectable, preservative free Ashley Olvera RESEARCH MANUFACTURING OPERATOR-ROUTE SALES SPECIALIST Work Phone: [facility] 04-17-2013 influenza virus vacc ine, whole virus Ashley Olvera RESEARCH MANUFACTURING OPERATOR-ROUTE SALES SPECIALIST Work Phone: [facility] 06-28-2012 pneumococcal vaccine , unspecified formulation Ashley Olvera RESEARCH MANUFACTURING OPERATOR-ROUTE SALES SPECIALIST Work Phone: [facility] 04-24-2012 influenza virus vacc ine, whole virus Ashley Olvera RESEARCH MANUFACTURING OPERATOR-ROUTE SALES SPECIALIST Work Phone: [facility] 04-20-2011 influenza virus vacc ine, whole virus Ashley Olvera RESEARCH MANUFACTURING OPERATOR-ROUTE SALES SPECIALIST Work Phone: [facility] 05-05-2010 influenza virus vacc ine, whole virus Ashley Olvera RESEARCH MANUFACTURING OPERATOR-ROUTE SALES SPECIALIST Work Phone: [facility] 04-29-2009 influenza virus vacc ine, whole virus Ashley Olvera RESEARCH MANUFACTURING OPERATOR-ROUTE SALES SPECIALIST Work Phone: [facility] 05-09-2007 influenza virus vacc ine, whole virus Ashley Olvera RESEARCH MANUFACTURING OPERATOR-ROUTE SALES SPECIALIST Work Phone: [facility] Payers Date Payer Category Payer Medicare [id number] 2022 Self-pay 2016 Medicare [id number] 1959 Medicare [id number] 2.1 [id number] 1959 Private Health Insurance [id number] 1935 Unknown [id number] 2.16.84 [id number] 1935 Unknown [id number] 2.16.84 [id number] 1935 Unknown [id number] 2.16.84 [id number] 1935 Unknown [id number] 2.16.84 [id number] 1935 Unknown [id number] 2.16.84 [id number] 1935 Unknown [id number] 2.16.8 [id number] 1935 Unknown [id number] 2.16.84 [id number] Unknown [id number] 2.16.8 [id number] Social History Date Type Detail Facility Start: 08-04-2020 End: 09-28-2023 Sex Assigned At [facility] Start: 05-28-2014 End: 09-21-2022 Tobacco smoking status NHIS Never smoked tobacco [facility] Start: 10-25-2016 End: 09-28-2023 Alcohol intake Current drinker of alcohol (finding) [facility] Start: 1935 Sex Assigned At Not on file C [facility] Start: 09-29-2022 Tobacco smoking stat us MTIS Unknown if ever smoked [facility] Start: 1935 Sex Assigned At Female F [facility] Start: 09-21-2022 Tobacco use and exposure Smokeless tobacco non-user [facility] Start: 08-04-2020 End: 09-28-2023 History of Social function [facility] Adolescent depressio n screening assessment 0 [facility] Goals Date Patient Goal Desired Activity /State Functional Status Date Assessment Result Facility 09-28-2022 Functional status Patient Not at Baseline [facility] Work Phone: Mental Status Date Assessment Result Facility 09-28-2022 Cognitive function Cognitive Sta tus Patient Not at Baseline [facility] Work Phone: Clinical Notes 12-13-2021 to 09-27-2023 Ashley Olvera APRN-ROUTE SALES SPECIALIST - 09/27/2023 3:40 PM EST Note Date & Type Note Facility 09-27-2023 History of Present illness Narrative Images from the original note were not included. [address] [facility] [address] SUBJECTIVE: Patient ID: Annamaria Garcia is [...] but returned worse. Family took her to [facility] ER last week for evaluation. 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 Documented By: Mimi Artis APRN 10/02/22 1241 Signed By: <Electronically signed by KHURRAM Artis> 10/02/22 1244 <Electronically signed by Gordon You MD> 10/02/[address] [facility] Work Phone: 1(764) 576-624703-12-2023 Progress note Author Gordon You [facility] October 02, 2022 9:16pm Note Date/Time October 01, 2022 12: 12pm [facility] [address] [place] [address] Hospitalist Progress Note Signed Patient: Annamaria Garcia MR#: [id number] : 1935 Acct:[id number] Age/Sex: 87 / F Adm Date: 3 Loc: Room: [address] [place] [address] Type: ADM IN Attending Dr: Gordon You [...] the plan of care and confirmed the ROUTE SALES SPECIALIST's written note. Documented By: Mimi Artis APRN 10/01/22 1207 Signed By: <Electronically signed by KHURRAM Artis> 10/01/22 1213 <Electronically signed by Gordon You MD> 10/02/[address] [facility] Work Phone: 1(714) 202-166603-12-2023 Progress note Author Leighton Valente [facility] October 02, 2022 12:49pm Note Date/Time October 02, 2022 12: 43pm [facility] [address] [place] [address] Orthopedic Progress Note Signed Patient: Annamaria Garcia MR#: [id number] : 1935 Acct:[id number] Age/Sex: 87 / F Adm Date: 3 Loc: 4N Room: [address] [place] [address] Type: ADM IN Attending Dr: Gordon You [...] % (Auto) 72.4 Lymph % (Auto) 12.7 Ballard % (Auto) 13.6 Eos % (Auto) 1.0 Baso % (Auto) 0.3 Nucleat RBC Rel Count 0.0 Neut # (Auto) 5.3 Lymph # (Auto) 0.9 L Ballard # (Auto) 1.0 H Eos # (Auto) [...] signed by MD Leighton Valente> 10/02/22 1249 [facility] Work Phone: 1(851) 909-165403-10-2023 Progress note Author Yani Cyr [facility] September 30, 2022 4:42pm Note Date/Time September 30, 2022 12: 30pm [facility] [address] [place] [address] Hospitalist Progress Note Signed Patient: Annamaria Garcia MR#: [id number] : 1935 Acct:[id number] Age/Sex: 87 / F Adm Date: 3 Loc: 4N Room: 4V5597-6 Type: ADM IN Attending Dr: Yani Cyr [...] signed by Yani Cyr MD> 09/30/22 1642 [facility] Work Phone: 1(441) 139-755103-09-2023 Progress note Author Leighton Valente [facility] September 29, 2022 12:30pm Note Date/Time September 29, 2022 7:53 am [facility] [address] [place], [place] [id number] Orthopedic Progress Note Signed Patient: Annamaria Garcia MR#: [id number] : 1935 Acct:[id number] Age/Sex: 87 / F Adm Date: 3 Loc: 4N Room: [address] [place] [address] Type: ADM IN Attending Dr: Adama Kothari [...] signed by MD Leighton Valente> 09/29/22 1230 [facility] Work Phone: 1([phone]) 820-272703-09-2023 Consult note Author Leighton Valente [facility] September 29, 2022 7:45am Note Date/Time September 29, 2022 7:39 am [facility] [address] [place] [address] Orthopedic Consult Note Signed Patient: Annamaria Garcia MR#: [id number] : 1935 Acct:[id number] Age/Sex: 87 / F Adm Date: 3 Loc: 4N Room: 1Z0090-6 Type: ADM IN Attending Dr: Adama Kothari MD Copies to: MD Leighton Paul MD Valerie J Castillo NP-C~ History of Present Illness HPI Consult date: 09/29/2022 Requesting provider: Adama Kothari MD History of present illness: Patient is an 87-year-old female who sustained a fall with complaints of left hip pain.. [facility]. [facility] displaced [...] % (Auto) 87.9, Lymph % (Auto) 4.7, Ballard % (Auto) 7.4, Eos % (Auto)0.0, Baso % (Auto) 0.0, Nucleat RBC Rel Count 0.1, Neut # (Auto) 10.7 H, Lymph #(Auto) 0.6 L, Ballard # (Auto) 0.9 H, Eos # (Auto) [...] signed by MD Leighton Valente> 09/29/22 0745 [facility] Work Phone: 1(202) 996-594903-08-2023 History and physical note Author Juliet Green [facility] September 28, 2022 9:41pm Note Date/Time September 28, 2022 4:41 am [facility] [address] [place] [address] Hospitalist H&P Signed Patient: Annamaria Garcia MR#: [id number] : 1935 Acct:[id number] Age/Sex: 87 / F Adm Date: 3 Loc: 4 Room: [address] [place] [address] Type: ADM IN Attending Dr: Adama Kothari MD Copies to: MD Juliet Paul MD Valerie J Castillo SENIOR COMPLIANCE ANALYST-C~ HPI DATE OF EXAMINATION: 09/28/22 CHIEF COMPLAINT: hip fx HISTORY OF PRESENT ILLNESS: 87 years old female sustained what it seems mechanical fall, without any prodromal symptoms at home, where she lives alone, and presented to [facility] emergency room where she was diagnosed with [...] 0434 Signed By: <Electronically signed by Juliet rGeen MD> 09/28/22 2141 [facility] Work Phone: 1(323) 279-455103-08-2023 Progress note Author Adama Kothari [facility] September 28, 2022 7:19pm Note Date/Time September 28, 2022 10:0 4am [facility] [address] [place] [address] Hospitalist Progress Note Signed Patient: Annamaria Garcia MR#: [id number] : 1935 Acct:[id number] Age/Sex: 87 / F Adm Date: 3 Loc: 4N Room: [address] [place] [address] Type: ADM IN Attending Dr: Adama Kothari [...] Meq Kcl IV 09/28/23 05:29 75 mls/hr .[id number] XIAO Administration Lactated Ringer's 1,000 mls @ [...] signed by Adama Kothari MD> 09/28/22 191 [facility] Work Phone: 1(893) 841-676803-08-2023 Hospital Discharge instructions Additional Instructions SNF Physician: [...] Mepilex border foam to Coccyx for protection. [facility] Work Phone: 1(862) 423-271209-26-2022 NoteHNO ID: [id number] Author: Storm Russell APRN.HEAD OF OPERATION AND LOGISTICS Service: ? Author Type: Nurse Specialist Type: Progress Notes Filed: 04/21/2022 7:19 AM Note Text: [facility] NOTE NAME: GARCIAANNAMARIACHELI NO.: [id number] DATE OF SERVICE: 04/18/2022 [facility] DATE OF : 1935 REASON FOR VISIT: The patient is a resident of [facility]. This is a skilled visit for [...] no supplement. DICTATED BY: SARAH Bliss/Bernice JOB# [id number] cc:[facility]09-21-2022 NoteHNO ID: [id number] Author: Storm Russell APRN.HEAD OF OPERATION AND LOGISTICS Service: ? Author Type: Nurse Specialist Type: Progress Notes Filed: 04/14/2022 3:59 PM Note Text: [facility] NOTE NAME: STANISLAW GARCIA NO.: [id number] DATE OF SERVICE: 04/13/2022 [facility] DATE OF : 1935 REASON FOR VISIT: The patient is a resident of [facility]. This is a skilled visit for [...] supportive care. DICTATED BY: SARAH Bliss JOB# [id number] cc:[facility]09-21-2022 History of Present illness Narrative* Storm Russell APRN.HEAD OF OPERATION AND LOGISTICS - 04/13/2022 12:00 AM EDT [facility] NOTE NAME: STANISLAW GARCIA NO.: [id number] DATE OF SERVICE: 04/13/2022 [facility] DATE OF : 1935 REASON FOR VISIT: The patient is a resident of [facility]. This is a skilled visit for [...] supportive care. DICTATED BY: SARAH Bliss/Bernice JOB# [id number] cc:[facility] documented in this encounterRegency Hospital Company09-16-2022 NoteHNO ID: [id number] Author: Storm Russell APRN.HEAD OF OPERATION AND LOGISTICS Service: ? Author Type: Nurse Specialist Type: Progress Notes Filed: 04/11/2022 7:39 PM Note Text: [facility] NOTE NAME: STANISLAW GARCIA NO.: [id number] DATE OF SERVICE: 04/08/2022 [facility] DATE OF : 1935 REASON FOR VISIT: The patient is a resident of [facility]. This is a skilled visit for [...] normal range. DICTATED BY: SARAH Bliss JOB# [id number] cc:[facility]09-16-2022 History of Present illness Narrative* Storm Russell APRN.HEAD OF OPERATION AND LOGISTICS - 04/08/2022 12:00 AM EDT [facility] NOTE NAME: ANNAMARIA GARCIACHELI NO.: [id number] DATE OF SERVICE: 04/08/2022 [facility] DATE OF : 1935 REASON FOR VISIT: The patient is a resident of [facility]. This is a skilled visit for [...] normal range. DICTATED BY: SARAH Bliss JOB# [id number] cc:[facility] documented in this encounterRegency Hospital Company09-13-2022 NoteHNO ID: [id number] Author: Debra Vásquez Service: ? Author Type: Physician Type: Progress Notes Filed: 04/06/2022 5:49 PM Note Text: [facility] NOTE NAME: STANISLAW GARCIA NO.: [id number] DATE OF SERVICE: 04/05/2022 [facility] DATE OF : 1935 NEW PATIENT HISTORY AND PHYSICAL HISTORY OF PRESENT ILLNESS: Patient is an 86-year-old female, who is admitted to us from [facility] with a diagnoses of acute nondisplaced fracture [...] she knew that she was somewhere is [place]. She is aware of having had a [...] hospital. DICTATED BY: MD ROCHELLE Silverio/Bernice JOB# [id number] cc:[facility]09-13-2022 History of Present illness Narrative* Debra Vásquez - 04/05/2022 12:00 AM EDT [facility] NOTE NAME: STANISLAW GARCIA NO.: [id number] DATE OF SERVICE: 04/05/2022 [facility] DATE OF : 1935 NEW PATIENT HISTORY AND PHYSICAL HISTORY OF PRESENT ILLNESS: Patient is an 86-year-old female, who is admitted to us from [facility] with a diagnoses of acute nondisplaced fracture [...] she knew that she was somewhere is [place]. She is aware of having had a [...] hospital. DICTATED BY: MD ROCHELLE Silverio/Bernice JOB# [id number] cc:[facility] documented in this encounterRegency Hospital Company05-23-2022 Evaluation note* Encounter Date Diagnosis Assessment Notes [...] above plan, states she will go to [facility] for further evaluation. 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-H[facility]) documented in this encounter [facility] HospitalHistory general Narrative - Reported* Type Description Date Surgical History CATARACT REMOVAL Surgical History CHOLECYSTECTOMY [employer] Other Instructions* Attachments The following attachments cannot be sent through Care Everywhere. * Skin Rash (Togolese) documented in this encounterDunlap Memorial HospitalYi Chang Ou Sai [facility] HospitalReason for referral (narrative)* Consultation (Routine) - Pending Review Specialty Diagnoses / Procedures Referred By Christiane layton Referred To Contact Dermatology Diagnoses Rash and nonspecific skin eruption Ashley Olvera APRN-CNP [address] [place] [address] Shawanda Cintron MD [address] , [address] [address] Referral ID Status Reason Start Date Expiration Date Visits Requested Visits Authorized [id number] Pending Review Specialty Services Required 09/27/2023 09/26/2024 1 1 [facility] Advance Directives Documents on File Type Date Recorded Patient Teleservices Representative Expl anation Advance Directive(s) 04/04/2016 12:27 PM Advance Directive Response Recorded Date/ Time Advance Directives No September 28 2:49am Documents on File Type Date Recorded Patient Teleservices Representative Expl anation Advance Directive 04/11/2023 3:23 PM [...] or prosecute any alcohol or drug abuse patient.[facility] Hospital CompanyIn the event this information is protected by the Federal Confidentiality of Alcohol and Drug Abuse Patient Records regulations: The Federal rules restrict any use of the information to criminally investigate or prosecute any alcohol or drug abuse patient.[facility] Hospital CompanyIn the event this information is protected by the Federal Confidentiality of Alcohol and Drug Abuse Patient Records regulations: The Federal rules restrict any use of the information to criminally investigate or prosecute any alcohol or drug abuse patient.[facility] Care Teams (unrecognized sec tion and content) Assurance Manager Insurance Relationship Specialty Start Date End Date Richard He PCP - General Family Practice 05/08/14 Assurance Manager Insurance Relationship Specialty Start Date End Date Richard [...] Active Yani Cyr MD Attending Provider Active Assurance Manager Insurance Relationship Specialty Start Date End Date Ashley Olvera, RESEARCH MANUFACTURING OPERATOR-ROUTE SALES SPECIALIST [address] [facility] [place] [address] PCP - General Family Medicine 07/23/19 INFORMATION SOURCE (unrecogn ized section and content) DATE CREATED AUTHOR 04/25/2022 [facility] DATE CREATED AUTHOR AUTHOR'S ORGANIZ ATION 10/17/2022 [facility] DATE CREATED AUTHOR AUTHOR'S ORGANIZ ATION 10/17/2022 [facility] DATE CREATED AUTHOR AUTHOR'S ORGANIZ ATION 09/28/2023 [facility] FOR RECORDS PERTAINING TO PATIENTS WHO ARE [...] BE BASED ON THE PRIMARY CLINICAL RECORDS. [facility] [employer] [facility]. provides no warranty or guarantee of the accuracy or completeness of information in this document.
[2023-10-01] MEDS: 0.9 % SODIUM CHLORIDE 1,000 ML 100 ML IV (04:16)
[2023-10-01 05:21] LABS: Basophils Percent Auto 0.2 % (0.2-2.0); Eosinophils Percent Auto 0.2 % (0.9-7.0); Hematocrit 38.6 % (36.0-48.0); Hemoglobin 12.6 g/dL (12.0-16.0); Immature Granulocytes Abs Auto 0.15 10^3/uL (0.00-0.03); Immature Granulocytes Pct Auto 0.8 % (0.0-0.5); Lymphocytes Absolute Auto 1.2 10^3/uL (1.2-3.8); Lymphocytes Percent Auto 6.3 % (20.5-60.0); Mean Corpuscular HGB Conc 32.6 g/dL (29.9-35.2); Mean Corpuscular Hemoglobin 30.5 pg (26.7-34.0); Mean Corpuscular Volume 93.5 fL (81.0-99.0); Mean Platelet Volume 9.1 fL (9.5-13.5); Monocytes Absolute Auto 1.5 10^3/uL (0.3-0.8); Neutrophils Absolute Auto 16.3 10^3/uL (1.4-6.5); Neutrophils Percent Auto 84.5 % (43.0-75.0); Platelet Count 340 10^3/uL (150-450); Red Blood Count 4.13 10^6/uL (4.20-5.40); Red Cell Distribution Width 12.7 % (11.0-15.0); White Blood Count 19.2 10^3/uL (4.0-11.0)
[2023-10-01 05:36] LABS: Alanine Aminotransferase 111 U/L (14-59); Albumin Globulin Ratio 0.8; Albumin Level 2.9 g/dL (3.4-5.0); Alkaline Phosphatase 113 U/L (46-116); Aspartate Amino Transferase 178 U/L (15-37); BUN Creatinine Ratio 20.4; Bilirubin Total 0.6 mg/dL (0.2-1.0); Calcium 8.7 mg/dL (8.5-10.1); Carbon Dioxide 22.4 mmol/L (21.0-32.0); Chloride 99 mmol/L (98-107); Estimated GFR (African America >60 (>=60); Estimated GFR (Non-African Ame >60 (>=60); Globulin 3.7 g/dL; Glucose 122 mg/dL (74-106); Potassium 3.4 mmol/L (3.5-5.1); Sodium 131 mmol/L (136-145); Total Protein 6.6 g/dL (6.4-8.2)
[2023-10-01] MEDS: ENOXAPARIN SODIUM 30 MG/0.3 ML SYRINGE SUBQ (08:38)
[2023-10-01] MEDS: CLOBETASOL PROPIONATE 0.05% CREAM 15 GRAM TUBE 1 APPLIC TOPICAL (08:38)
[2023-10-01] MEDS: CALCIUM CARBONATE 600 MG/VITAMIN D3 400 IU TABLET 1 TAB PO (08:39)
[2023-10-01] MEDS: ASPIRIN 325 MG TABLET.DR PO (08:39)
[2023-10-01] MEDS: CHOLECALCIFEROL (VITAMIN D3) 25 MCG/1,000 UNITS TABLET 50 MCG PO (08:39)
[2023-10-01] MEDS: FERROUS SULFATE 325 MG TABLET PO (08:39)
--- NOTE | 2023-10-01 09:20 | XR_ITS ---
The [address] [address] Patient Name: JIM GARCIA MRN: [id number] date: 1935 Sex: F Assigned Patient Location: [place] Current Patient Location: [place] Accession/Order Number: [id number] Exam Date: 10/01/2023 09:55 Report Date: 10/01/2023 10:50 At the request of: SHAIKH LEEANN Procedure: XR chest 1V EXAM: XR chest 1V HISTORY: LEUKOCYTOSIS COMPARISON: 03/31/2022 TECHNIQUE: Chest X-ray AP, 1 view FINDINGS: Support devices: None. Lungs/pleura: No effusion, or pneumothorax. Left basilar opacity, may represent atelectasis and/or consolidation. Heart and mediastinum: Normal contours. Bones: No acute abnormality identified. XR/XR chest 1V Impression: Left basilar opacity, may represent atelectasis and/or consolidation. Electronically authenticated by: CLEMENT KASPER Date: 10/01/2023 10:50
--- NOTE | 2023-10-01 11:11 | P.HP_ITS ---
HPI H&P: HPI History of Present Illness Chief complaint: PAIN HTN HYPONATREMIA BACK PAIN Narrative: 88 y o female, was sent from detention for intractable sacral/low back pain. She ambulates using a walker at baseline and required 2 person assist to help her move. There is inconstant report relate to whether or not she fell. Patient was seen earlier today and appeared comfortable. She seems to be more or less at her baseline now. She was still complaining of low back and hip pain. However, ambulated using a walker earlier today. She was admitted overnight for obs for pain control, PT/OT eval along with a host of abnormalities noted on her workup. She reports no complaints and denies CP, SOB, cough, nausea, vomiting, abdominal pain, urinary complaints. Upon arrival, her BP was 200/90 that improved during the course of night. no prior hx of HTN. She is a poor hx and unable to provide any reliable information due to underlying dementia Opioid HPI Opioid Management Most Recent Opioid Data: Last Pain Assessment 10/01/23 10:30 Last ED Pain Assessment 10/01/23 03:15 Last ORT Total Score 0 10/01/23 03:53 Last ORT Risk Category Low Risk 10/01/23 03:53 Review of Systems ROS Status of ROS 10 or more systems reviewed and unremark able except as noted in history and below [facility] Medical History (Updated 10/01/23 @ 11:23 by Shaikh Farhan MD) Bilateral fracture of pubic rami with routine healing ?S32.591D - Other specified fracture of right pubis, subsequent encounter for fracture with routine healing (ICD-10) ?S32.592D - Other specified fracture of left pubis, subsequent encounter for fracture with routine healing (ICD-10) Pubic bone fracture ?S32.509A - Unspecified fracture of unspecified pubis, initial encounter for closed fracture (ICD-10) Hip fracture, intertrochanteric ?S72.143A - Displaced intertrochanteric fracture of unspecified femur, initial encounter for closed fracture (ICD-10) H/O fracture of hip ?Z87.81 - Personal history of (healed) traumatic fracture (ICD-10) Closed sacral fracture ?S32.10XA - Unspecified fracture of sacrum, initial encounter for closed fracture (ICD-10) Dementia ?F03.90 - Unspecified dementia, unspecified severity, without behavioral disturbance, psychotic disturbance, mood disturbance, and anxiety (ICD-10) Osteoporosis ?M81.0 - Age-related osteoporosis without current pathological fracture (ICD- 10) Social History (Updated 10/01/23 @ 03:49 by Caity Arteaga RN) Within the past year, how often did you have a drink containing alcohol: never Score interpretation: A score less than 3 is consistent with normal alcohol consumption. Smoking status: Former smoker Non-prescribed substance use: denies use Gender Identity: female Meds Home Medications and Allergies Home Medications Medication Instructions Recorded Confirmed Type acetaminophen 325 mg tablet 325 mg PO Q6H PRN fever or pain 04/10/23 09/30/23 History (Tylenol) aspirin 325 mg capsule 325 mg PO DAILY 04/10/23 09/30/23 History calcium carbonate 600 mg-vitamin 1 tab PO DAILY 04/10/23 09/30/23 History D3 20 mcg (800 unit) chewable tablet (Caltrate 600 plus D) cholecalciferol (vitamin D3) 50 50 mcg PO DAILY 04/10/23 09/30/23 History mcg (2,000 unit) capsule ferrous sulfate 325 mg (65 mg 325 mg PO DAILY 04/10/23 09/30/23 History iron) tablet,delayed release sertraline 25 mg tablet 25 mg PO Q24H 04/10/23 09/30/23 History clobetasol 0.05 % topical cream 1 applic topical DAILY 2 weeks #60 09/22/23 09/30/23 Rx grams diphenhydramine HCl 25 mg capsule 25 mg PO Q4H PRN itching 09/30/23 09/30/23 History (Allergy (diphenhydramine)) Allergies Allergy/AdvReac Type Severity Reaction Status Date / Time No Known Drug Allergies Allergy Verified 04/10/23 04:41 Exam Constitutional Vital Signs, click to edit/add: Last Vital Signs Temp 98.2 F 10/01/23 09:29 Pulse 58 L 10/01/23 09:29 Resp 16 10/01/23 09:29 BP 150/75 H 10/01/23 09:29 Pulse Ox 96 10/01/23 09:29 O2 Del Method Room Air 10/01/23 09:29 Documenting provider has reviewed patient's vital signs: yes Common normals: no apparent distress and oriented x3 HENMT Common normals: normocephalic and head/scalp atraumatic Respiratory Common normals: normal respiratory effort, no use of accessory muscles and clear to auscultation bilaterally Effort & inspection: able to speak in complete sentences Cardio Common normals: regular rate, regular rhythm, S1 normal heart sound and S2 normal heart sound GI Common normals: Normal to inspection, nondistended, normoactive bowel sounds present Extremity Common normals: normal to inspection and full ROM Neuro Common normals: oriented x3, moves all extremities, no focal motor deficits and no sensory deficits noted Other: Patient is confused. Psych Common normals: mental status grossly normal and cooperative Results Labs Labs: Short CBC 09/30/23 10/01/23 Range/Units 22:51 04:46 WBC 14.3 H 19.2 H (4.0-11.0) 10^3/uL Hgb 13.1 12.6 (12.0-16.0) g/dL Hct 41.6 38.6 (36.0-48.0) % Plt Count 347 340 (150-450) 10^3/uL BMP 09/30/23 10/01/23 22:51 04:46 Sodium 128 L 131 L Potassium 3.9 3.4 L Chloride 95 L 99 Carbon Dioxide 24.5 22.4 BUN 13.0 11.0 Creatinine 0.72 0.54 L Glucose 105 122 H Calcium 9.7 8.7 Liver Function 10/01/23 Range/Units 04:46 Total Bilirubin 0.6 (0.2-1.0) mg/dL AST 178 H (15-37) U/L ALT 111 H (14-59) U/L Alkaline Phosphatase 113 (46-116) U/L Albumin 2.9 L (3.4-5.0) g/dL Urine 09/30/23 Range/Units 22:04 Urine Color Yellow (YELLOW) Urine Clarity Clear (CLEAR) Urine pH 7.0 (5.0-9.0) Ur Specific [place] 1.020 (1.005-1.025) Urine Protein Negative (NEG/TRACE) mg/dL Urine Glucose (UA) Negative (NEGATIVE) mg/dL Assessment and Plan Assessment and Plan (1) Hypertensive urgency: Assessment and Plan: No hx of HTN. BP is better now. IV hydralazine as needed. Started on po norvasc. (2) Left lower lobe pneumonia: Assessment and Plan: No resp symptoms but sig leukocytosis, along with possible inflittrate on CXR. Started on rocpehin/azithromycin Qualifiers: Pneumonia type: due to unspecified organism Qualified Code(s): J18.9 - Pneumonia, unspecified organism (3) Leukocytosis: Assessment and Plan: Blood and sputum cx ordered. CXR cw pna, started on abx. UA - no evidence of uti Qualifiers: Leukocytosis type: leukemoid reaction Qualified Code(s): D72.823 - Leukemoid reaction (4) Hyponatremia: Assessment and Plan: likely due to dehydration, improved. c/w IVF. (5) Intractable back pain: Assessment and Plan: Improved pain now. PT/OT eval. C/w pain control. (6) Dementia: Assessment and Plan: Confused at baseline. Monitor. Qualifiers: Dementia type: Alzheimer's Alzheimer's disease onset: late onset Dementia severity: moderate Dementia behavioral or psychological symptom: without behavioral, psychotic, or mood disturbance or anxiety Qualified Code(s): G30.1 - Alzheimer's disease with late onset; F02.B0 - Dementia in other diseases classified elsewhere, moderate, without behavioral disturbance, psychotic disturbance, mood disturbance, and anxiety (7) Closed sacral fracture: Assessment and Plan: Chronic, old. Unchanged. Monitor. Qualifiers: Encounter type: subsequent encounter Zone of sacrum fracture: unspecified portion of sacrum Fracture healing: with routine healing Qualified Code(s): S32.10XD - Unspecified fracture of sacrum, subsequent encounter for fracture with routine healing (8) Bilateral fracture of pubic rami with routine healing: Assessment and Plan: Chronic, old, monitor Qualifiers: Fracture type: closed Qualified Code(s): S32.591D - Other specified fracture of right pubis, subsequent encounter for fracture with routine healing; S32.592D - Other specified fracture of left pubis, subsequent encounter for fracture with routine healing
[2023-10-01] MEDS: POTASSIUM CHLORIDE 10 MEQ ER TABLET 40 MEQ PO (13:11)
[2023-10-01] MEDS: 0.9 % SODIUM CHLORIDE 1,000 ML 75 ML IV (13:11)
[2023-10-01] MEDS: AMLODIPINE BESYLATE 5 MG TABLET PO (13:11)
[2023-10-01] MEDS: AZITHROMYCIN 250 MG TABLET 500 MG PO (13:11)
[2023-10-01] MEDS: SERTRALINE HCL 50 MG TABLET 25 MG PO (13:11)
[2023-10-01] MEDS: CEFTRIAXONE 1,000 MG in 0.9 % SODIUM CHLORIDE 50 ML 100 MG IV (13:12)
[2023-10-01 16:30] LABS: Glucometer 76 mg/dL (74-106)
[2023-10-01] MEDS: HYDROCODONE/ACET 5-325 MG TABLET 2 TAB PO (16:49)
[2023-10-01 20:20] LABS: Glucometer 149 mg/dL (74-106)
[2023-10-02 00:38] VITALS: BP 168/85; PULSE 72; RESP 16; TEMP 36.4; O2SAT 95
[2023-10-02] MEDS: 0.9 % SODIUM CHLORIDE 1,000 ML 75 ML IV (02:53)
[2023-10-02 04:46] VITALS: BP 168/74; PULSE 74; RESP 18; TEMP 37.1; O2SAT 95
[2023-10-02 04:47] VITALS: BP 168/74; PULSE 74; RESP 18; TEMP 37.1; O2SAT 95
[2023-10-02 05:10] LABS: Basophils Absolute Auto 0.1 10^3/uL (0.0-0.1); Basophils Percent Auto 0.5 % (0.2-2.0); Eosinophils Absolute Auto 0.2 10^3/uL (0.0-0.7); Eosinophils Percent Auto 1.5 % (0.9-7.0); Hematocrit 39.8 % (36.0-48.0); Hemoglobin 13.1 g/dL (12.0-16.0); Immature Granulocytes Abs Auto 0.07 10^3/uL (0.00-0.03); Immature Granulocytes Pct Auto 0.6 % (0.0-0.5); Lymphocytes Absolute Auto 1.1 10^3/uL (1.2-3.8); Mean Corpuscular HGB Conc 32.9 g/dL (29.9-35.2); Mean Corpuscular Hemoglobin 30.8 pg (26.7-34.0); Mean Corpuscular Volume 93.4 fL (81.0-99.0); Mean Platelet Volume 9.2 fL (9.5-13.5); Monocytes Percent Auto 8.9 % (1.7-12.0); Neutrophils Percent Auto 78.5 % (43.0-75.0); Platelet Count 306 10^3/uL (150-450); Red Blood Count 4.26 10^6/uL (4.20-5.40); Red Cell Distribution Width 13.1 % (11.0-15.0); White Blood Count 11.5 10^3/uL (4.0-11.0)
[2023-10-02 05:28] LABS: Alanine Aminotransferase 71 U/L (14-59); Albumin Globulin Ratio 0.7; Albumin Level 2.9 g/dL (3.4-5.0); Alkaline Phosphatase 106 U/L (46-116); Anion Gap 11.4; Aspartate Amino Transferase 40 U/L (15-37); BUN Creatinine Ratio 15.6; Bilirubin Total 0.5 mg/dL (0.2-1.0); Calcium 8.4 mg/dL (8.5-10.1); Carbon Dioxide 25.1 mmol/L (21.0-32.0); Chloride 100 mmol/L (98-107); Estimated GFR (African America >60 (>=60); Estimated GFR (Non-African Ame >60 (>=60); Glucose 110 mg/dL (74-106); Potassium 3.5 mmol/L (3.5-5.1); Sodium 133 mmol/L (136-145); Total Protein 6.9 g/dL (6.4-8.2)
[2023-10-02 07:32] VITALS: BP 160/69; PULSE 70; RESP 16; TEMP 36.3; O2SAT 96
[2023-10-02 07:36] VITALS: RESP 16
[2023-10-02] MEDS: ENOXAPARIN SODIUM 30 MG/0.3 ML SYRINGE SUBQ (08:56)
[2023-10-02] MEDS: CLOBETASOL PROPIONATE 0.05% CREAM 15 GRAM TUBE 1 APPLIC TOPICAL (08:57)
[2023-10-02] MEDS: AZITHROMYCIN 250 MG TABLET 500 MG PO (08:58)
[2023-10-02] MEDS: CHOLECALCIFEROL (VITAMIN D3) 25 MCG/1,000 UNITS TABLET 50 MCG PO (08:58)
[2023-10-02] MEDS: FERROUS SULFATE 325 MG TABLET PO (08:58)
[2023-10-02] MEDS: SERTRALINE HCL 50 MG TABLET 25 MG PO (08:58)
[2023-10-02] MEDS: ASPIRIN 325 MG TABLET.DR PO (08:59)
[2023-10-02] MEDS: AMLODIPINE BESYLATE 5 MG TABLET PO (08:59)
[2023-10-02] MEDS: CALCIUM CARBONATE 600 MG/VITAMIN D3 400 IU TABLET 1 TAB PO (08:59)
[2023-10-02] MEDS: LIDOCAINE 5% PATCH 1 PATCH TOPICAL (10:31)
--- NOTE | 2023-10-02 10:50 | CM.NOTE ---
Rounds made with mike Decker to discharge pt back to [facility]. PT and OT will evaluate pt prior to discharge.
--- NOTE | 2023-10-02 11:26 | P.DS_ITS ---
<Statement entered by Shaikh Farhan MD - 10/02/23 12:43> This documentation has been reviewed and approved. Patient seen and examined. Agree with documentation and clinical finding. Exam Frail, NAD, sitting on recliner, was able to get up without needing help CTA b/l, no wheezing, rhonchi. Normal HR, No murmur noted Assessment and Plan LL PNA Intractable back pain HTN urgency Hyponatremia [place] Chronic healed sacral fracture Old/healed pubic rami fracture. Pain at baseline now. Ambulating with a walker. No resp symptoms or compromise. Stable for d/c on oral Abx.Will d/c on amlodipine. She will need to follow up her PCP to titrate her BP meds. She will go back to [facility]. Follow up with PCP in one week. DS: Providers Provider Date of admission: 10/01/23 03:32 Primary care physician: ASHLEY BONILLA Consults: 10/01/23 03:17 Occupational Therapy Eval and Treat Routine Reason for consultation: sacral pain Has provider been notified: No Physical Therapy Eval and Treat Routine Reason for consultation: sacral pain Has provider been notified: No 10/01/23 11:04 Occupational Therapy Eval and Treat Routine Reason for consultation: Ambulatory dysfunction/weakness Physical Therapy Eval and Treat Routine Reason for consultation: Ambulatory dysfunction/weakness Discharging clinician: Lilia Conde DS: Diagnosis Discharge Diagnosis (1) Hypertensive urgency: (2) Left lower lobe pneumonia: Qualifiers: Pneumonia type: due to unspecified organism Qualified Code(s): J18.9 - Pneumonia, unspecified organism (3) Leukocytosis: Qualifiers: Leukocytosis type: leukemoid reaction Qualified Code(s): D72.823 - Leukemoid reaction (4) Hyponatremia: (5) Intractable back pain: (6) Dementia: Qualifiers: Alzheimer's disease onset: late onset Dementia behavioral or psychological symptom: without behavioral, psychotic, or mood disturbance or anxiety Dementia severity: moderate Dementia type: Alzheimer's Qualified Code(s): G30.1 - Alzheimer's disease with late onset; F02.B0 - Dementia in other diseases classified elsewhere, moderate, without behavioral disturbance, psychotic disturbance, mood disturbance, and anxiety (7) Closed sacral fracture: Qualifiers: Encounter type: subsequent encounter Fracture healing: with routine healing Zone of sacrum fracture: unspecified portion of sacrum Qualified Code(s): S32.10XD - Unspecified fracture of sacrum, subsequent encounter for fracture with routine healing (8) Bilateral fracture of pubic rami with routine healing: Qualifiers: Fracture type: closed Qualified Code(s): S32.591D - Other specified fracture of right pubis, subsequent encounter for fracture with routine healing; S32.592D - Other specified fracture of left pubis, subsequent encounter for fracture with routine healing DS: Summary Hospital Course Hospital Course: The patient was admitted with sacral and hip pain that apparently she did not take her home pain medication for prior to arrival in the ED. She was also noted to be hypertensive and have hyponatremia on labs. She was admitted to the hospitalist service in observation overnight. She was given IV fluids and started on amlodipine. Her hypertension is improving although not yet to goal. We defer to the patient's PCP for further titrations of amlodipine or additional medications indicated for her hypertension. Her hyponatremia resolved by the time of discharge. CT of the hip and pelvis were negative for any acute fracture but did show old fractures that have healed. She was seen in consult by PT/OT who recommend further PT services for strengthening. She was also noted to have LLL pneumonia on CXR and was treated with IVPB Rocephin/PO azithromycin. She was not hypoxic during her stay. As this patient's pain is from her chronic injury, she is stable at her baseline and is being discharged back to her assisted living facility with home health services. We have prescribed a Lidoderm patch and low-dose tramadol as needed for her sacral/hip pain. She is also prescribed 7 more days of Augmentin for her pneumonia, and amlodipine for HTN. She is being discharged in stable condition. She should follow up with her PCP in 5-7 days. Time Spent with Patient Time attestation: Total time spent providing and/or coordinating discharge services: Time spent: greater than 30 minutes Specific discharge activities: Physical exam, discussion of discharge plan, questions answered. Exam Constitutional Vital Signs, click to edit/add: Last Vital Signs Temp 97.3 F L 10/02/23 07:32 Pulse 70 10/02/23 07:32 Resp 16 10/02/23 07:36 BP 160/69 H 10/02/23 07:32 Pulse Ox 96 10/02/23 07:32 O2 Del Method Room Air 10/02/23 07:32 Common normals: no apparent distress and alert General appearance: cooperative Orientation/consciousness: Yes awake, Yes oriented to person and Yes confused; not oriented to place and not oriented to time HENMT Common normals: normocephalic and head/scalp atraumatic Eye Common normals: PERRL, EOMs intact bilaterally, conjunctivae normal and no scleral icterus Neck & C-Spine Common normals: no JVD Respiratory Common normals: normal respiratory effort, no use of accessory muscles and clear to auscultation bilaterally Effort & inspection: able to speak in complete sentences and symmetric chest movement Cardio Common normals: no JVD, regular rate, regular rhythm, S1 normal heart sound, S2 normal heart sound, no murmurs and peripheral pulses 2+ throughout GI Common normals: Normal to inspection, nondistended, normoactive bowel sounds present, soft to palpation and non-tender Bladder/kidney exam: bladder normal to palpation Back & Pelvis Sacrum: tenderness (Especially with sitting) Extremity Common normals: normal to inspection, full ROM, normal capillary refill and no pedal edema General: no clubbing and no cyanosis Neuro Common normals: moves all extremities, no focal motor deficits and no sensory deficits noted Speech: speech normal Psych Common normals: activity/motor behavior normal Speech: normal speech Mood and affect: euthymic mood Memory/cognition: memory grossly impaired Insight: fair Judgement: limited DS: Data Data Completed and Pending Labs on day of discharge: Labs from last 24 hours 10/02/23 10/01/23 10/01/23 04:43 20:19 16:28 WBC 11.5 H RBC 4.26 Hgb 13.1 Hct 39.8 MCV 93.4 MCH 30.8 MCHC 32.9 RDW 13.1 Plt Count 306 MPV 9.2 L Neut % (Auto) 78.5 H Lymph % (Auto) 10.0 L [place] % (Auto) 8.9 Eos % (Auto) 1.5 Baso % (Auto) 0.5 Neut # (Auto) 9.0 H Lymph # (Auto) 1.1 L [place] # (Auto) 1.0 H Eos # (Auto) 0.2 Baso # (Auto) 0.1 Abs Immat Gran (auto) 0.07 H Imm/Tot Granulo (auto) 0.6 H Sodium 133 L Potassium 3.5 Chloride 100 Carbon Dioxide 25.1 Anion Gap 11.4 BUN 5.0 L Creatinine 0.32 L Est GFR ( Amer) >60 Est GFR (Non-Af Amer) >60 BUN/Creatinine Ratio 15.6 Glucose 110 H Calcium 8.4 L Total Bilirubin 0.5 AST 40 H ALT 71 H Alkaline Phosphatase 106 Total Protein 6.9 Albumin 2.9 L Globulin 4.0 Albumin/Globulin Ratio 0.7 POC Glucose 149 H 76 Imaging Chest x-ray: Attestation: I have reviewed the pertinent imaging results. Radiologist's impression: Impression: Left basilar opacity, may represent atelectasis and/or consolidation. CT scan - pelvis: Attestation: I have reviewed the pertinent imaging results. Radiologist's impression: IMPRESSION: No acute or ununited fractures are seen within either proximal femur or elsewhere throughout the bony pelvis. If there is a clinical concern for a sacral insufficiency fracture, MRI would be a more sensitive and specific imaging modality. Discharge Plan Discharge Disposition: Home Health Service Condition: Fair Discharge Medications: New amlodipine 5 mg Tablet 5 mg PO QD 30 Days Qty: 30 0RF amoxicillin-pot clavulanate 875-125 mg tablet 1 tab PO BID 7 Days Qty: 14 0RF lidocaine [Lidoderm] 5 % adhesive patch,medicated 1 patch topical DAILY Qty: 30 0RF Rx Instructions: leave on most painful area (tailbone/lumbar spine) for up to 12 hrs tramadol 50 mg tablet 50 mg PO Q8H PRN (Reason: pain) Qty: 20 0RF Continued clobetasol 0.05 % cream 1 applic topical DAILY 14 Days Qty: 60 1RF sertraline 25 mg tablet 25 mg PO Q24H ferrous sulfate 325 mg (65 mg iron) tablet,delayed release (DR/EC) 325 mg PO DAILY cholecalciferol (vitamin D3) 50 mcg (2,000 unit) capsule 50 mcg PO DAILY Rx Instructions: 1000 units daily aspirin 325 mg capsule 325 mg PO DAILY Caltrate 600 plus D 600 mg-20 mcg (800 unit) tablet,chewable 1 tab PO DAILY acetaminophen [Tylenol] 325 mg tablet 325 mg PO Q6H PRN (Reason: fever or pain) diphenhydramine HCl [Allergy (diphenhydramine)] 25 mg capsule 25 mg PO Q4H PRN (Reason: itching) Forms: Portal Instructions Follow Up Appointments: Follow up with PCP within 1 week
[2023-10-02 11:32] LABS: Glucometer 97 mg/dL (74-106)
--- NOTE | 2023-10-02 11:35 | SWNOTE1 ---
Pt is from [facility]. [facility] called over and spoke with them and they are able to accept her back and would use [facility]. Pt and nephew in room and they are agreeable to use [facility]. Pt's nephew does want her to return, and pt wants to return to see her friends. [facility]RIQUE sent referral to [facility], this included face sheet, physician notes, therapy and dc med rec.
--- NOTE | 2023-10-02 11:38 | SWNOTE1 ---
Pt's nephew is transporting and will need to leave by 1:00 as he works second shift.
[2023-10-02 11:50] VITALS: BP 159/90; PULSE 81; RESP 16; TEMP 36.7; O2SAT 97
--- NOTE | 2023-10-02 11:58 | SWNOTE1 ---
SW did review [facility] form with pt's nephew. He voiced understanding, no questions. Pt's nephew signed form, original given to him and copy placed on chart.
[2023-10-02] MEDS: CEFTRIAXONE 1,000 MG in 0.9 % SODIUM CHLORIDE 50 ML 100 MG IV (12:06)
--- NOTE | 2023-10-02 14:53 | SWNOTE1 ---
SW spoke to [facility], they received referral and are running insurance.
--- NOTE | 2023-10-02 16:17 | SWNOTE1 ---
[facility] is able to accept. SW sent over dc med rec and CRF.
--- NOTE | 2023-10-04 14:43 | CM.DCFOLLOWU ---
Pt at [facility]
[2023-10-07 20:07] LABS: Osmolality, Urine 506 mOsmol/kg (.)
== END 2023-10-02 14:05 | disposition home health service (06) ==
LOC: ER 10-01 03:35 → MS 10-01 03:38
PROVIDERS: Nurse Practitioner Acute Care; Admitting Provider Internal Medicine; Emergency Provider Internal Medicine; PCP Nurse Practitioner; Visit Provider Internal Medicine
DX: I16.0 Hypertensive urgency (principal); J18.9 Pneumonia, unspecified organism; E87.1 Hypo-osmolality and hyponatremia; D72.823 Leukemoid reaction; G30.1 Alzheimer's disease with late onset; F02.80 Dementia in other diseases classified elsewhere, unspecified severity, without behavioral disturbance, psychotic disturbance, mood disturbance, and anxiety; Z87.81 Personal history of (healed) traumatic fracture; Z87.891 Personal history of nicotine dependence; M81.0 Age-related osteoporosis without current pathological fracture; Z79.82 Long term (current) use of aspirin; Z79.899 Other long term (current) drug therapy
CPT/HCPCS: 36415; 71045; 72192; 73700; 80048; 80053; 81003; 82570; 82948; 83935; 84300; 85025; 85652; 86140; 87040; 96365; 96366; 96372; 96375; 97110; 97161; 97165; 97530; 99285; G0378

== ENCOUNTER 2023-10-18 09:43 | Outpatient (OUT) | payer MEDICARE, SELFPAY ==
--- NOTE | 2023-10-18 | XR_ITS ---
The [address] [address] Patient Name: JIM GARCIA MRN: [id number] date: 1935 Sex: F Assigned Patient Location: Current Patient Location: Accession/Order Number: [id number] Exam Date: 10/18/2023 10:00 Report Date: 10/19/2023 07:04 At the request of: FRANCOIS HOFFMAN Procedure: XR foot LT min 3V PROCEDURE: XR foot LT min 3V HISTORY: LEFT FOOT PAIN COMPARISON: None. FINDINGS: BONES:Joint space narrowing and degenerative osteophytes involving the first through fourth tarsal-metatarsal joints. No fracture, dislocation, bone lesion. Mild flattening of plantar arch. SOFT TISSUES:No visible soft tissue swelling. EFFUSION:None visible. OTHER: Negative. XR/XR foot LT min 3V IMPRESSION: 1. No appreciable acute bone abnormality. 2. Moderate degenerative changes of the midfoot. Electronically authenticated by: TAYLOR PENA Date: 10/19/2023 07:04
--- OUTSIDE RECORDS SUMMARY | 2023-10-18 09:49 | XMS_ITS | CCD ---
Author Organization [facility] Care Team Providers Care Shellfish Bed Worker Name Role Phone Rylie Galvan Unavailable Richard He Primary Care Provider UnavailAntwan Loomist Emelia Primary Care Provider UnavailAntwan Loomist E Primary Care Provider UnavailJULES Chaves Primary Care Provider MD Juliet Green Admit Provider MD Leighton Valente Other Provider MD Galen Escobar Other Provider MD Lilian Van Other Provider [phone] DO Silvestre Saunders Other Provider [phone] MD Bulmaro Moses II Other Provider [phone] MD Yani Cyr Attending Provider ADELE KATZ [...] Consulting Unavailable DR GAB LEE Admitting Unavailable JANETTE DR MARISSA Orosco Consulting Unavailnico PENA, DR [...] Consulting Unavailable Bulmaro Moses II Consulting Unavailnico Valente Leighton Unavailable Wade CLOUD SUBJECT MATTER EXPERTAshley SMITH Primary Care Provid er ASHLEY OLVERA Attending Unavailable ASHLEY OLVERA Referring Unavailable ASHLEY OLVERA Primary Care Unavailable ASHLEY OLVERA Attending Unavailable ASHLEY OLVERA Referring Unavailable ASHLEY OLVERA Primary Care Unavailable ASHLEY OLVERA Attending Unavailable ASHLEY OLVERA Referring Unavailable ASHLEY OLVERA Primary Care Unavailable Allergies Allergy Classification Reported Allergen(s) Allergy Type Date of Onset Reaction(s) Facility (5 sources) Tetanus Vaccines And Toxoid; Translations: [TETANUS VACCINES AND TOXOID] Propensity to adverse reactions to drug 01-11-2017 [facility] Medications Current Medications Medication Drug Class(es) Dates [...] senia th every 4 hours as needed. amLODIPine 5 mg oral tablet (5 sources) Dihydropyridine Calcium Channel Evelia Start: take 1 tablet by mouth once daily amLODIPine (NORVASC) 5 mg tablet Indications: Benign essential HTN take 1 tablet by mouth once daily 90 tablet 2 10/17/2023 Active Start: 10-02-2023 End: 10-17-2023 take 1 tablet by mouth once daily amLODIPine (NORVASC) 5 mg tablet Indications: Benign essential HTN take 1 tablet by mouth once daily 90 tablet 2 10/09/2023 10/17/2023 Discontinued (Reorder) aspirin 325 mg oral tablet (5 sources) Platelet Aggregation Inhibitor, Nonsteroidal Anti-inflammatory Drug Start: 10-03-2022 take 325 mg by mouth once daily Aspirin Active 325 MG PO Daily 0 October 03, 2022 12:00am take 1 tablet by mouth in the mo rning aspirin 81 mg Take 1 tablet (81 mg total) by mouth in the morning. 0 Active calcium carbonate 1500 mg / cholecalciferol 800 unt chewable tablet (4 sources) Vitamin D Start: 10-31-2022 calcium carbonate-vitamin D3 [...] Active clobetasol propionate 0.5 mg/ml topical cream (4 sources) Corticosteroid Start: 09-22-2023 clobetasoL (TEMOVATE) 0.05 % cream apply to affected area once daily for 2 weeks 0 09/22/2023 Active ferrous sulfate 325 mg delayed release oral tablet (7 sources) Start: 07-13-2023 take 1 tablet by [...] a day Active take 1 tablet by [facility] every twenty-four hours Ferrous Sulfate 325 (65 Fe) MG 1 tablet Orally Once a day Active lidocaine 0.018 mg/mg medicated patch (1 source) Antiarrhythmic, Amide Local Anesthetic Start: 10-17-2023 lidocaine 1.8 % adhesive patch,medicated Indications: Arthritis, multiple joint involvement Apply 1 patch topically See Admin Instructions. On for 12 hours off for 12 hours. 30 patch 10/17/2023 Active Start: 10-17-2023 lidocaine 1.8 % adhesive patch,medicated Indications: Arthritis, multiple joint involvement Apply 1 patch topically See Admin Instructions. On for 12 hours off for 12 hours. 30 patch 10/17/2023 Active lutein 20 mg oral tablet (5 sources) take 1 capsule by [facility] once daily Lutein 20 MG 1 capsule with a meal Orally Once a day Active LUTEIN ORAL Take by mouth. 0 Active take 1 capsule by [facility] every twenty-four hours Lutein 20 MG 1 capsule with a meal Orall y Once a day Active Comment on above: Take by mouth. meloxicam 7.5 mg oral tablet (7 sources) Nonsteroidal Anti-inflammatory Drug Start: 4 End: take 1 tablet by mouth in the morning meloxicam (MOBIC) 7.5 mg tablet Indications: Arthritis, multiple joint involvement Take 1 tablet (7.5 mg total) by mouth in the morning. 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 30 tablet 07/13/2023 Active traMADol hydrochloride 50 mg oral tablet (5 sources) Opioid Agonist Start: 10-02-2023 End: 10-09-2023 take 1 tablet by mouth every eight hours as needed for pain traMADoL (ULTRAM) 50 mg tablet Indications: Arthritis, multiple joint involvement Take 1 tablet (50 mg total) by mouth every 8 (eight) hours as needed for pain. 30 tablet 0 10/09/2023 Active vitamin b12 1 mg sublingual tablet (4 sources) Vitamin B12 Start: 11-15-2021 take 1 tablet under the tongue in the morning cyanocobalamin (VITAMIN B12) 1,000 mcg tablet, sublingual Indications: Deficiency of vitamin B12 Place 1 tablet (1,000 mcg total) under the tongue in the morning. 90 each 2 11/15/2021 Active Completed/Discontinued Medications Medication Drug Class(es) Dates Sig (Normalized) Sig (Original) alendronic acid 35 mg oral tablet (1 source) Bisphosphonate Start: 3 End: 4 take 1 tablet by mouth in the morning alendronate (FOSAMAX) 35 mg tablet Indications: History of healed osteoporosis fracture Take 1 tablet (35 mg total) by mouth every 7 days. In a.m. with water on empty stomach, nothing else by mouth and remain upright for 30min 4 tablet 11 07/13/2023 09/28/2023 Discontinued (Therapy completed) amoxicillin 875 mg / clavulanate 125 mg oral tablet (1 source) Penicillin-class Antibacterial Start: 4 End: 4 take 1 tablet by mouth twice daily amoxicillin-pot clavulanate (AUGMENTIN) 875-125 mg per tablet take 1 tablet by mouth twice a day for 7 days 0 10/02/2023 10/09/2023 Discontinued (Therapy completed) busPIRone hydrochloride 5 mg oral tablet (2 sources) Start: 3 End: 4 take 0.5 tablet by mouth three times daily as needed for anxiety busPIRone (BUSPAR) 5 mg tablet Indications: 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 30 tablet 1 03/10/2023 10/09/2023 Discontinued (Therapy completed) ibandronic acid 150 mg oral tablet (5 sources) Bisphosphonate Start: 4 Ibandronate 150 mg tablet loperamide hydrochloride 2 mg oral capsule (3 sources) Opioid Agonist Start: 6 take 1 capsule by mouth twice daily, then take 1 capsule by mouth at breakfast, then take 1 capsule by mouth at dinner loperamide (IMODIUM) 2 mg cap(s) Take 1 capsule by mouth twice daily. Take 1 capsule with breakfast and 1 with dinner 60 capsule 5 04/19/2016 Active Comment on above: Take 1 capsule by mo [facility] twice daily. Take 1 capsule with breakfast and 1 with dinner meclizine hydrochloride 25 mg chewable tablet (3 sources) Antiemetic take 1 tablet by mouth three times daily as needed Meclizine HCl 25 mg Chew Tab Take by mouth three times daily as needed. 0 Active Comment on above: Take by mouth three times daily as needed. 1 ml methylPREDNISolone acetate 40 mg/ml injection (4 sources) Corticosteroid Start: 4 End: methylPREDNISolone acetate (DEPO-MEDROL) injection 40 mg Start: 10-09-2023 End: 10-09-2023 methylPREDNISolone acetate ( DEPO-MEDROL) injection 40 mg Start: 09-22-2023 End: 10-09-2023 methylPREDNISolone (MEDROL, MONICA,) 4 mg tablet use as directed FOLLOW DIRECTIONS ON BACK OF FOIL PACK 0 09/22/2023 10/09/2023 Discontinued (Therapy completed) Start: 09-22-2023 methylPREDNISo lone (MEDROL, MONICA,) 4 mg tablet use as directed FOLLOW DIRECTIONS ON BACK OF FOIL PACK 0 09/22/2023 Active MV,CA,MIN/IRON FUM/FA/VIT K (MULTI FOR HER ORAL) (3 sources) MV,CA,MIN/IRON FUM/FA/VIT K (MULTI FOR HER ORAL) Take by mouth. 0 Active Comment on above: Take by mouth. oxyCODONE hydrochloride 5 mg oral tablet (3 sources) Opioid Agonist Start: 04-09-20 16 take 1 tablet by mouth every four hours as needed oxyCODONE immediate release (PERCOLONE) 5 mg immediate release tablet Take 1 tablet by mouth every 4 hours as needed. 40 tablet 0 04/09/2016 Active Comment on above: Take 1 tablet by [facility] every 4 hours as needed. simvastatin 20 mg oral tablet (5 sources) HMG-CoA Reductase Inhibitor Start: 05-16-20 14 simvastatin (ZOCOR) 20 mg tablet Suprep Bowel Prep - (2 sources) Start: 01-27-20 16 Suprep Bowel Prep - 1 Orally Daily for 1 day(s) Jan, Not-Taking Problems Active Problems Problem Classification Problem Date Documented Date Episodic/Chronic Cancer of colon (14 sources) Malignant tumor of colon; Translations: [Malignant neoplasm of colon, unspecified] Onset: 04-04-2016 04-04-2016 Chronic Cancer of colon (4 sources) History of malignant neoplasm of colon; Translations: [...] dementia, and amnestic and other cognitive disorders (10 sources) Senile dementia; Translations: [Alzheimer's disease with late onset] Onset: 09-30-2022 09-27-2023 Chronic Diverticulosis and diverticulitis (2 sources) Diverticular disease; Translations: [Diverticulosis of intestine, part unspecified, without perforation or abscess without bleeding] Chronic E Codes: Fall (6 sources) Unspecified fall, initial encounter; Translations: [Fall] Onset: 12-13-2021 Resolved: 12-13-2021 Episodic Essential hypertension (4 sources) Benign essential hypertension; Translations: [Essential (primary) hypertension] Onset: 10-09-2023 10-09-2023 Chronic Fluid and electrolyte disorders (2 sources) Hypokalemia; Translations: [Hypo-osmolality and hyponatremia] Onset: 05-12-2022 Episodic Mood disorders (6 sources) Moderate major depression, single episode; Translations: [Major depressive disorder, single episode, moderate] Onset: 07-13-2023 09-27-2023 Chronic Nutritional deficiencies (4 sources) Vitamin D deficiency; Translations: [Vitamin D deficiency, unspecified] Onset: 08-12-2019 08-12-2019 Chronic Osteoporosis (4 sources) Osteoporosis; Translations: [Age-related osteoporosis without current pathological fracture] 06-07-2017 Chronic Other acquired deformities (4 sources) Kyphosis of thoracic spine; Translations: [Unspecified kyphosis, thoracic region] 10-10-2022 Chronic Other aftercare (1 source) Other usp (current) drug therapy; Translations: [OTH [facility] CURRENT DRUG THERAPY] Onset: 09-29-2022 Episodic Other nervous system disorders (4 sources) Cognitive deficit in communication skills; Translations: [Cognitive communication deficit] Onset: 10-03-2022 01-03-2023 Chronic Other non-traumatic joint disorders (3 sources) Arthropathy of multiple joints; Translations: [Arthropathy, unspecified] 10-09-2023 Chronic Other non-traumatic joint disorders (1 source) Arthropathy, unspecified; Translations: [Arthropathy, unspecified] Onset: 10-09-2023 Chronic Other non-traumatic joint disorders (3 sources) Pain in left hip; Translations: [PAIN IN LEFT HIP] Onset: 09-27-2022 Episodic Other screening for suspected conditions (not mental disorders or infectious disease) (1 source) Encounter for screening for cardiovascular disorders; Translations: [Encounter for screening for cardiovascular disorders] Onset: 07-13-2023 Episodic Other skin disorders (2 sources) Eruption; Translations: [Rash and other nonspecific skin eruption] 09-27-2023 Episodic Other skin disorders (1 source) Rash and other nonspecific skin eruption; Translations: [Rash and other nonspecific skin eruption] Onset: 09-27-2023 Episodic Pathological fracture (1 source) Personal history of (healed) osteoporosis fracture; Translations: [Personal history of (healed) osteoporosis fracture] Onset: 07-13-2023 Episodic Pneumonia (except that caused by tuberculosis or sexually transmitted disease) (1 source) Infective pneumonia; Translations: [Pneumonia, unspecified organism] 10-09-2023 Episodic Retinal detachments; defects; vascular occlusion; and retinopathy (4 sources) Degenerative disorder of macula ; Translations: [Unspecified macular degeneration] 01-05-2017 Chronic Spondylosis; intervertebral disc disorders; other back problems (2 sources) Other intervertebral disc degeneration, lumbar region; Translations: [Other cervical disc degeneration, unspecified cervical region] Onset: 09-29-2022 Chronic Thyroid disorders (5 sources) Hypothyroidism, unspecified; Translations: [Thyroid nodule] Onset: [...] Episodic Fracture of neck of femur (hip) (8 sources) Fracture of bone of hip region; Translations: [Fracture of unspecified part of neck of left femur, initial encounter for closed fracture] Onset: 09-28-2022 09-28-2022 Episodic Mood disorders (4 sources) Mood disorders Onset: 09-27-2023 Resolved: 10-09-2023 09-27-2023 Nonspecific chest pain (1 source) Other chest pain; Translations: [OTHER CHEST PAIN] Onset: 05-12-2022 Episodic Nutritional deficiencies (5 sources) Cobalamin deficiency; Translations: [Deficiency of other specified B group vitamins] Onset: 05-07-2018 05-07-2018 Episodic Other fractures (1 [...] Spondylosis; intervertebral disc disorders; other back problems (4 sources) Neck pain; Translations: [Cervicalgia] Onset: 02-20-2023 02-20-2023 Episodic Superficial injury; contusion (1 source) Contusion of right hip, initial encounter; Translations: [CONTUSION RIGHT HIP INITIAL ENC] Onset: 12-14-2021 Episodic Unclassified (4 sources) Onset: 11-30-2022 11-30-2022 Urinary tract infections (1 source) Urinary tract infection, site not specified; Translations: [UTI SITE NOT SPECIFIED] Onset: 05-12-2022 Episodic Results Test Name Value Interpretation Reference Range Facility CBC AUTO DIFFon 10-14-2022 BASO # 0.0 103/ul Normal 0.0-0.1 [facility] Comment on above: Performed By: #### C HELENA CARCAMO #### [facility] [address] [address] [address] Nidhi Dawn Basophils/100 WBC (Bld) 0.3 % Normal 0.2-2.0 [facility] Comment on above: Performed By: #### C HELENA CARCAMO #### [facility] [address] [place] [address] Dr. Nidhi Dawn EO # 0.1 103/ul Normal 0.0-0.7 [facility] Comment on above: Performed By: #### C DONA, LEONCIODM #### [facility] [address] [place] [address] Dr. Nidhi Dawn Eosinophils/100 WBC (Bld) 1.2 % Normal 0.9-7.0 [facility] Comment on above: Performed By: #### C DONA, LEONCIODM #### [facility] [address] [place] [address] Dr. Nidhi Dawn Erythrocyte distribution width (RBC) [Ratio] 15.7 % Critically high 11.0-15.0 [facility] Comment on above: Performed By: #### C DONA, LEONCIODM #### [facility] [address] [place] [address] Dr. Nidhi Dawn Hematocrit (Bld) [Volume fraction] 28.5 % Critically low 36.0-48.0 [facility] Comment on above: Performed By: #### C DONA, LEONCIODM #### [facility] [address] [place] [address] Dr. Nidhi Dawn Hemoglobin (Bld) [Mass/Vol] 8.9 g/dL Critically low 12.0-16.0 [facility] Comment on above: Performed By: #### C DONA, LEONCIODM #### [facility] [address] [place] [address] Dr. Nidhi Dawn IG # 0.04 10e3/ul Critically high 0.00-0.03 [facility] Comment on above: Performed By: #### C DONA, CMADM #### [facility] [address] [place] [address] Dr. Nidhi Dawn IG % 0.7 % Critically high 0.0-0.5 [facility] Comment on above: Performed By: #### C DONA, CMADM #### [facility] [address] [place] [address] Dr. Nidhi Dawn LYMPH # 0.9 103/ul Critically low 1.2-3.8 [facility] Comment on above: Performed By: #### C DONA CMADM #### [facility] [address] [place] [address] Dr. Nidhi Dawn Lymphocytes/100 WBC (Bld) 15.6 % Critically low 20.5-60.0 [facility] Comment on above: Performed By: #### C MP, CMADM #### [facility] [address] [place] [address] Dr. Nidhi Dawn MANUAL DIFF REQ NO Normal [facility] Comment on above: Performed By: #### C MP, CMADM #### [facility] [address] [place] [address] Dr. Nidhi Dawn MCH (RBC) [Entitic mass] 30.8 pg Normal 26.7-34.0 [facility] Comment on above: Performed By: #### C MP, CMADM #### [facility] [address] [place] [address] Dr. Nidhi Dawn MCHC (RBC) [Mass/Vol] 31.2 g/dL Normal 29.9-35.2 [facility] Comment on above: Performed By: #### C DONA, CMADM #### [facility] [address] [place] [address] Dr. Nidhi Dawn MCV (RBC) [Entitic vol] 98.6 fL Normal 81.0-99.0 [facility] Comment on above: Performed By: #### C MP, CMADM #### [facility] [address] [place] [address] Dr. Nidhi Dawn MONO # 0.7 103/ul Normal 0.3-0.8 [facility] Comment on above: Performed By: #### C MP, CMADM #### [facility] [address] [place] [address] Dr. Nidhi Dawn Monocytes/100 WBC (Bld) 11.1 % Normal 1.7-12.0 [facility] Comment on above: Performed By: #### C MP, CMADM #### [facility] [address] [place] [address] Dr. Nidhi Dawn NEUT # 4.2 103/ul Normal 1.4-6.5 [facility] Comment on above: Performed By: #### C DONA, CMADM #### [facility] [address] [address] [address] Nidhi Dawn Neutrophils/100 WBC (Bld) 71.1 % Normal 43.0-75.0 [facility] Comment on above: Performed By: #### C DONA, CMADM #### [facility] [address] [address] [address] Nidhi Dawn Platelet mean volume (Bld) [Entitic vol] 8.5 fL Critically low 9.5-13.5 [facility] Comment on above: Performed By: #### C DONA, CMADM #### [facility] [address] [place] [address] Dr. Nidhi Dawn PLT 614 103/ul Critically high 150-450 [facility] Comment on above: Performed By: #### C DONA, CMADM #### [facility] [address] [address] [address] Nidhi Dawn RBC 2.89 106/ul Critically low 4.20-5.40 [facility] Comment on above: Performed By: #### C DONA, CMADM #### [facility] [address] [place] [address] Dr. Nidhi Dawn WBC 5.8 103/ul Normal 4.0-11.0 [facility] Comment on above: Performed By: #### C DONA, CMADM #### [facility] [address] [address] [address] Nidhi Dawn Basic Metabolic Panelon 09-21 Anion gap [Moles/Vol] 8.2 mmol/L Normal 6.0-15.0 [facility] Comment on above: Performed By: #### F ER, FE and TIBC #### [facility] [address] Calcium [Mass/Vol] 9.1 mg/dL Normal 8.6-10.3 [facility] Comment on above: Performed By: #### F ER, FE and TIBC #### [facility] [address] Chloride [Moles/Vol] 102 mmol/L Normal 98-107 [facility] Comment on above: Performed By: #### F ER, FE and TIBC #### [facility] [address] CO2 [Moles/Vol] 30.5 mmol/L Normal 21.0-31.0 [facility] Comment on above: Performed By: #### F ER, FE and TIBC #### [facility] [address] Creatinine [Mass/Vol] 0.35 mg/dL Low 0.60-1.20 [facility] Comment on above: Performed By: #### F ER, FE and TIBC #### [facility] [address] Creatinine Clr Calc Pharmacy 35.59 Normal [facility] Comment on above: Result Comment: PERF ORMED BY: [place] [address] PATHOLOGIST ADMINISTRATIVE HEARING OFFICER CLARICE OSWALD M.D. Performed By: #### F ER, FE and TIBC #### [facility] [address] GFR/1.73 sq M.predicted MDRD (S/P/Bld) [Vol rate/Area] mL/min/{1.73_m2} [facility] Comment on above: Performed By: #### F ER, FE and TIBC #### [facility] [address] Glucose [Mass/Vol] 104 mg/dL Normal 74-109 [facility] Comment on above: Result Comment: Schneider om Glucose Reference Range is dependent on time and content of last meal. Glucose of more than 200 mg/dL in a nonstressed, ambulatory subject supports the diagnosis of Diabetes Mellitus. ADA recommended reference range Performed By: #### F ER, FE and TIBC #### [facility] [address] Potassium [Moles/Vol] 3.7 mmol/L Normal 3.5-5.1 [facility] Comment on above: Performed By: #### F ER, FE and TIBC #### [facility] [address] Sodium [Moles/Vol] 137 mmol/L Normal 136-145 [facility] Comment on above: Performed By: #### F ER, FE and TIBC #### [facility] [address] Urea nitrogen [Mass/Vol] 10 mg/dL Normal 7-25 [facility] Comment on above: Performed By: #### F ER, FE and TIBC #### [facility] [address] Basophils Auto (Bld) [#/Vol] Ordered By: Yani Cyr on 10-03-2022 Basophils (Bld) [#/Vol] 0.0 10*3/uL 0.0-0.2 [facility] Basophils/100 WBC Auto (Bld) Ordered By: Yani Cyr on 10-03-2022 Basophils/100 WBC (Bld) 0.4 % . [facility] Calcium [Mass/volume] in Ser um or PlasmaOrdered By: Yani Cyr on 10-03-2022 Calcium [Mass/Vol] 9.1 mg/dL 8.6-10.3 [facility] Carbon dioxide, total [Moles /volume] in Serum or PlasmaOrdered By: Yani Cyr on 10-03-2022 CO2 [Moles/Vol] 30.5 mmol/L 21.0-31.0 [facility] Chloride [Moles/volume] in S enma or PlasmaOrdered By: Yani Cyr on 10-03-2022 Chloride [Moles/Vol] 102 mmol/L 98-107 [facility] Complete Blood Count Auto Di ffon 10-03-2022 Basophils (Bld) [#/Vol] 0.0 10*3/uL Normal 0.0-0.2 [facility] Comment on above: Result Comment: PERF ORMED BY: [facility] [address] [place] [address] PATHOLOGIST ADMINISTRATIVE HEARING OFFICER CLARICE OSWALD M.D. Performed By: #### F ER, FE and TIBC #### [address] Basophils/100 WBC (Bld) 0.4 % Normal . [facility] Comment on above: Performed By: #### F ER, FE and TIBC #### [address] Eosinophils (Bld) [#/Vol] 0.1 10*3/uL Normal 0.0-0.45 [facility] Comment on above: Performed By: #### F ER, FE and TIBC #### [address] Eosinophils/100 WBC (Bld) 1.9 % Normal . [facility] Comment on above: Performed By: #### F ER, FE and TIBC #### [address] Erythrocyte distribution width (RBC) [Ratio] 14.5 % Normal 11.9-15.3 [facility] Comment on above: Performed By: #### F ER, FE and TIBC #### [address] Hematocrit (Bld) [Volume fraction] 25.7 % Low 34.0-46.4 [facility] Comment on above: Performed By: #### F ER, FE and TIBC #### [place] [address] [place] Hemoglobin (Bld) [Mass/Vol] 8.7 g/dL Low 11.8-15.4 [facility] Comment on above: Performed By: #### F ER, FE and TIBC #### [place] [address] [place] Lymphocytes (Bld) [#/Vol] 1.1 10*3/uL Normal 1.00-4.8 [facility] Comment on above: Performed By: #### F ER, FE and TIBC #### [place] [address] [place] Lymphocytes/100 WBC (Bld) 14.2 % Normal . [facility] Comment on above: Performed By: #### F ER, FE and TIBC #### [address] MCH (RBC) [Entitic mass] 31.5 pg Normal 24.7-34.3 [facility] Comment on above: Performed By: #### F ER, FE and TIBC #### [address] MCV (RBC) [Entitic vol] 92.5 fL Normal 80-100 [facility] Comment on above: Performed By: #### F ER, FE and TIBC #### [address] Mean Corpuscular HGB Conc 34.1 g/dL Normal 32.0-35.0 [facility] Comment on above: Performed By: #### F ER, FE and TIBC #### [address] Monocytes (Bld) [#/Vol] 0.8 10*3/uL Normal 0.0-0.8 [facility] Comment on above: Performed By: #### F ER, FE and TIBC #### [address] Monocytes/100 WBC (Bld) 10.5 % Normal . [facility] Comment on above: Performed By: #### F ER, FE and TIBC #### [address] Neutrophils (Bld) [#/Vol] 5.5 10*3/uL Normal 1.8-7.7 [facility] Comment on above: Performed By: #### F ER, FE and TIBC #### [address] Neutrophils/100 WBC (Bld) 73.0 % Normal . [facility] Comment on above: Performed By: #### F ER, FE and TIBC #### [place] [id number] [place] NRBC% 0.1 /100{WBC} Normal 0-0.5 [facility] Comment on above: Performed By: #### F ER, FE and TIBC #### [facility] [address] [place] [address] Platelet mean volume (Bld) [Entitic vol] 7.5 fL Normal 6.3-10.7 [facility] Comment on above: Performed By: #### F ER, FE and TIBC #### [facility] [address] Platelets (Bld) [#/Vol] 322 10*3/uL Normal 150-450 [facility] Comment on above: Performed By: #### F ER, FE and TIBC #### [address] RBC (Bld) [#/Vol] 2.77 10*6/uL Low 3.60-5.00 [facility] Comment on above: Performed By: #### F ER, FE and TIBC #### [facility] [address] [place] [address] WBC (Bld) [#/Vol] 7.6 10*3/uL Normal 3.8-11.6 [facility] Comment on above: Performed By: #### F ER, FE and TIBC #### [facility] [address] [place] [address] Creatinine [Mass/volume] in Serum or PlasmaOrdered By: Yani Cyr on 10-03-2022 Creatinine [Mass/Vol] 0.35 mg/dL 0.60-1.20 [facility] Eosinophils Auto (Bld) [#/Vo l]Ordered By: Yani Cyr on 10-03-2022 Eosinophils (Bld) [#/Vol] 0.1 10*3/uL 0.0-0.45 [facility] Eosinophils/100 WBC Auto (Bl d)Ordered By: Yani Cyr on 10-03-2022 Eosinophils/100 WBC (Bld) 1.9 % . [facility] Erythrocyte distribution wid th Auto (RBC) [Ratio]Ordered By: Yani Cyr on 10-03-2022 Erythrocyte distribution width (RBC) [Ratio] 14.5 % 11.9-15.3 [facility] Glucose [Mass/volume] in Ser um or PlasmaOrdered By: Yani Cyr on 10-03-2022 Glucose [Mass/Vol] 104 mg/dL 74-109 [facility] Comment on above: ADA recommended refe rence rangeRandom Glucose Reference Range is dependent on time and content of last meal. Glucose of more than 200 mg/dL in a nonstressed, ambulatory subject supports the diagnosis of Diabetes Mellitus. Hematocrit Auto (Bld) [Volum e fraction]Ordered By: Yani Cyr on 10-03-2022 Hematocrit (Bld) [Volume fraction] 25.7 % 34.0-46.4 [facility] Hemoglobin [Mass/volume] in BloodOrdered By: Yani Cyr on 10-03-2022 Hemoglobin (Bld) [Mass/Vol] 8.7 g/dL 11.8-15.4 [facility] Laboratory - Chemistry and C hemistry - challengeOrdered By: Yani Cyr on 10-03-2022 GFR/1.73 sq M.predicted MDRD (S/P/Bld) [Vol rate/Area] mL/min/{1.73_m2} [facility] Leukocytes [#/volume] correc anna marie for nucleated erythrocytes in Blood by Automated counOrdered By: Yani Cyr on 10-03-2022 WBC corrected for nucl RBC Auto (Bld) [#/Vol] 7.6 10*3/uL 3.8-11.6 [facility] Lymphocytes Auto (Bld) [#/Vo l]Ordered By: Yani Cyr on 10-03-2022 Lymphocytes (Bld) [#/Vol] 1.1 10*3/uL 1.00-4.8 [facility] Lymphocytes/100 WBC Auto (Bl d)Ordered By: Yani Cyr on 10-03-2022 Lymphocytes/100 WBC (Bld) 14.2 % . [facility] MCH Auto (RBC) [Entitic mass ]Ordered By: Yani Cyr on 10-03-2022 MCH (RBC) [Entitic mass] 31.5 pg 24.7-34.3 [facility] MCHC Auto (RBC) [Mass/Vol]Or dered By: Yani Cyr on 10-03-2022 MCHC (RBC) [Mass/Vol] 34.1 g/dL 32.0-35.0 [facility] MCV Auto (RBC) [Entitic vol] Ordered By: Yani Cyr on 10-03-2022 MCV (RBC) [Entitic vol] 92.5 fL 80-100 [facility] Monocytes Auto (Bld) [#/Vol] Ordered By: Yani Cyr on 10-03-2022 Monocytes (Bld) [#/Vol] 0.8 10*3/uL 0.0-0.8 [facility] Monocytes/100 WBC Auto (Bld) Ordered By: Yani Cyr on 10-03-2022 Monocytes/100 WBC (Bld) 10.5 % . [facility] Neutrophils Auto (Bld) [#/Vo l]Ordered By: Yani Cyr on 10-03-2022 Neutrophils (Bld) [#/Vol] 5.5 10*3/uL 1.8-7.7 [facility] Neutrophils/100 WBC Auto (Bl d)Ordered By: Yani Cyr on 10-03-2022 Neutrophils/100 WBC (Bld) 73.0 % . [facility] No Panel InformationOrdered By: Yani Cyr on 10-03-2022 Pharmacy Creatinine Clearance (Chem 35.59 [facility] Nucleated erythrocytes [Pres ence] in Blood by Automated countOrdered By: Yani Cyr on 10-03-2022 Nucleated RBC Auto Ql (Bld) 0.1 /100{WBC} 0-0.5 [facility] Platelet mean volume Auto (B ld) [Entitic vol]Ordered By: Yani Cyr on 10-03-2022 Platelet mean volume (Bld) [Entitic vol] 7.5 fL 6.3-10.7 [facility] Platelets Auto (Bld) [#/Vol] Ordered By: Yani Cyr on 10-03-2022 Platelets (Bld) [#/Vol] 322 10*3/uL 150-450 [facility] Potassium [Moles/volume] in Serum or PlasmaOrdered By: Yani Cyr on 10-03-2022 Potassium [Moles/Vol] 3.7 mmol/L 3.5-5.1 [facility] RBC Auto (Bld) [#/Vol]Ordere d By: Yani Cyr on 10-03-2022 RBC (Bld) [#/Vol] 2.77 10*6/uL 3.60-5.00 [facility] Serum or plasma anion gap de terminationOrdered By: Yani Cyr on 10-03-2022 Anion gap [Moles/Vol] 8.2 mmol/L 6.0-15.0 [facility] Sodium [Moles/volume] in Ser um or PlasmaOrdered By: Yani Cyr on 10-03-2022 Sodium [Moles/Vol] 137 mmol/L 136-145 [facility] Urea nitrogen [Mass/volume] in Serum or PlasmaOrdered By: Yani Cyr on 10-03-2022 Urea nitrogen [Mass/Vol] 10 mg/dL 7-25 [facility] WBC Auto (Bld) [#/Vol]Ordere d By: Yani Cyr on 10-03-2022 WBC (Bld) [#/Vol] 7.6 10*3/uL 3.8-11.6 [facility] XR hip LT min 2V(w/wo pelvis )*on 10-03-2022 XR hip LT min 2V(w/wo pelvis)* [facility] [place] [place] [address] XRay Report Signed Patient: Annamaria Garcia MR#: [id number] : 1935 Acct:[id number] Age/Sex: 87 / F ADM Date: 09/28/22 Loc: Room: [address] [place] [address] Type: ADM IN Attending Dr: Yani Cyr [...] Forrester Jr., D.OPortillo10/03/2022 10:04 AM Dictation Location: [place] [address] Transcribed By: [facility] 10/03/22 1004 Dictated By: Josse Forrester Jr, DO 10/03/22 1003 Signed By: 10/03/22 1004 Normal [facility] Hemoglobin and Hematocriton 10-02-2022 Hematocrit (Bld) [Volume fraction] 21.3 % Low 34.0-46.4 [facility] Comment on above: Result Comment: PERF ORMED BY: [place] [address] PATHOLOGIST ADMINISTRATIVE HEARING OFFICER CLARICE OSWALD M.D. Performed By: #### F ER, FE and TIBC #### [address] Hemoglobin (Bld) [Mass/Vol] 7.3 g/dL Low 11.8-15.4 [facility] Comment on above: Performed By: #### F ER, FE and TIBC #### [address] Complete Blood Count Auto Di ffon 10-01-2022 Basophils (Bld) [#/Vol] 0.0 10*3/uL Normal 0.0-0.2 [facility] Comment on above: Result Comment: PERF ORMED BY: [place] [address] PATHOLOGIST ADMINISTRATIVE HEARING OFFICER CLARICE OSWALD M.D. Performed By: #### C BC #### [facility] [address] [place] [address] [place] Basophils/100 WBC (Bld) 0.3 % Normal . [facility] Comment on above: Performed By: #### C BC #### [facility] [address] Eosinophils (Bld) [#/Vol] 0.1 10*3/uL Normal 0.0-0.45 [facility] Comment on above: Performed By: #### C BC #### [address] Eosinophils/100 WBC (Bld) 1.0 % Normal . [facility] Comment on above: Performed By: #### C BC #### [address] Erythrocyte distribution width (RBC) [Ratio] 13.8 % Normal 11.9-15.3 [facility] Comment on above: Performed By: #### C BC #### [address] Hematocrit (Bld) [Volume fraction] 21.8 % Low 34.0-46.4 [facility] Comment on above: Performed By: #### C BC #### [address] Hemoglobin (Bld) [Mass/Vol] 7.4 g/dL Low 11.8-15.4 [facility] Comment on above: Performed By: #### C BC #### [address] Lymphocytes (Bld) [#/Vol] 0.9 10*3/uL Low 1.00-4.8 [facility] Comment on above: Performed By: #### C BC #### [address] Lymphocytes/100 WBC (Bld) 12.7 % Normal . [facility] Comment on above: Performed By: #### C BC #### [address] MCH (RBC) [Entitic mass] 31.0 pg Normal 24.7-34.3 [facility] Comment on above: Performed By: #### C BC #### [facility] [address] MCV (RBC) [Entitic vol] 91.8 fL Normal 80-100 [facility] Comment on above: Performed By: #### C BC #### [facility] [address] Mean Corpuscular HGB Conc 33.8 g/dL Normal 32.0-35.0 [facility] Comment on above: Performed By: #### C BC #### [facility] [address] Monocytes (Bld) [#/Vol] 1.0 10*3/uL High 0.0-0.8 [facility] Comment on above: Performed By: #### C BC #### [facility] [address] Monocytes/100 WBC (Bld) 13.6 % Normal . [facility] Comment on above: Performed By: #### C BC #### [address] Neutrophils (Bld) [#/Vol] 5.3 10*3/uL Normal 1.8-7.7 [facility] Comment on above: Performed By: #### C BC #### [address] Neutrophils/100 WBC (Bld) 72.4 % Normal . [facility] Comment on above: Performed By: #### C BC #### [address] NRBC% 0.0 /100{WBC} Normal 0-0.5 [facility] Comment on above: Performed By: #### C BC #### [address] Platelet mean volume (Bld) [Entitic vol] 8.0 fL Normal 6.3-10.7 [facility] Comment on above: Performed By: #### C BC #### [place] [id number] [place] Platelets (Bld) [#/Vol] 208 10*3/uL Normal 150-450 [facility] Comment on above: Performed By: #### C BC #### [address] RBC (Bld) [#/Vol] 2.37 10*6/uL Low 3.60-5.00 [facility] Comment on above: Performed By: #### C BC #### [address] WBC (Bld) [#/Vol] 7.3 10*3/uL Normal 3.8-11.6 [facility] Comment on above: Performed By: #### C BC #### [address] Basic Metabolic Panelon 09-21 0-2022 Anion gap [Moles/Vol] 8.7 mmol/L Normal 6.0-15.0 [facility] Comment on above: Performed By: #### B MP, CBC #### [address] Calcium [Mass/Vol] 8.3 mg/dL Low 8.6-10.3 [facility] Comment on above: Performed By: #### B MP, CBC #### [address] Chloride [Moles/Vol] 111 mmol/L High 98-107 [facility] Comment on above: Performed By: #### B MP, CBC #### [facility] [address] [place] [address] CO2 [Moles/Vol] 26.5 mmol/L Normal 21.0-31.0 [facility] Comment on above: Performed By: #### B MP, CBC #### [facility] [address] [place] [address] Creatinine [Mass/Vol] 0.37 mg/dL Low 0.60-1.20 [facility] Comment on above: Performed By: #### B MP, CBC #### [facility] [address] Creatinine Clr Calc Pharmacy 35.59 Normal [facility] Comment on above: Result Comment: PERF ORMED BY: [place] [address] PATHOLOGIST ADMINISTRATIVE HEARING OFFICER CLARICE OSWALD M.D. Performed By: #### B MP, CBC #### [place] [address] [place] GFR/1.73 sq M.predicted MDRD (S/P/Bld) [Vol rate/Area] mL/min/{1.73_m2} [facility] Comment on above: Performed By: #### B MP, CBC #### [address] Glucose [Mass/Vol] 102 mg/dL Normal 74-109 [facility] Comment on above: Result Comment: [facility] Glucose Reference Range is dependent on time and content of last meal. Glucose of more than 200 mg/dL in a nonstressed, ambulatory subject supports the diagnosis of Diabetes Mellitus. ADA recommended reference range Performed By: #### B MP, CBC #### [address] Potassium [Moles/Vol] 4.2 mmol/L Normal 3.5-5.1 [facility] Comment on above: Performed By: #### B MP, CBC #### [place] [address] [place] Sodium [Moles/Vol] 142 mmol/L Normal 136-145 [facility] Comment on above: Performed By: #### B MP, CBC #### [place] [address] [place] Urea nitrogen [Mass/Vol] 16 mg/dL Normal 7-25 [facility] Comment on above: Performed By: #### B MP, CBC #### [address] Complete Blood Count Auto Di ffon 09-30-2022 Basophils (Bld) [#/Vol] 0.0 10*3/uL Normal 0.0-0.2 [facility] Comment on above: Result Comment: PERF ORMED BY: [place] [address] PATHOLOGIST ADMINISTRATIVE HEARING OFFICER CLARICE OSWALD M.D. Performed By: #### B MP, CBC #### [address] Basophils/100 WBC (Bld) 0.3 % Normal . [facility] Comment on above: Performed By: #### B MP, CBC #### [place] [address] [place] Eosinophils (Bld) [#/Vol] 0.0 10*3/uL Normal 0.0-0.45 [facility] Comment on above: Performed By: #### B MP, CBC #### [address] Eosinophils/100 WBC (Bld) 0.3 % Normal . [facility] Comment on above: Performed By: #### B MP, CBC #### [address] Erythrocyte distribution width (RBC) [Ratio] 14.1 % Normal 11.9-15.3 [facility] Comment on above: Performed By: #### B MP, CBC #### [address] Hematocrit (Bld) [Volume fraction] 22.3 % Low 34.0-46.4 [facility] Comment on above: Performed By: #### B MP, CBC #### [place] [address] [place] Hemoglobin (Bld) [Mass/Vol] 7.8 g/dL Low 11.8-15.4 [facility] Comment on above: Performed By: #### B MP, CBC #### [place] [address] [place] Lymphocytes (Bld) [#/Vol] 1.0 10*3/uL Normal 1.00-4.8 [facility] Comment on above: Performed By: #### B MP, CBC #### [address] Lymphocytes/100 WBC (Bld) 12.9 % Normal . [facility] Comment on above: Performed By: #### B MP, CBC #### [facility] [address] MCH (RBC) [Entitic mass] 31.9 pg Normal 24.7-34.3 [facility] Comment on above: Performed By: #### B MP, CBC #### [address] MCV (RBC) [Entitic vol] 91.3 fL Normal 80-100 [facility] Comment on above: Performed By: #### B MP, CBC #### [address] Mean Corpuscular HGB Conc 34.9 g/dL Normal 32.0-35.0 [facility] Comment on above: Performed By: #### B MP, CBC #### [place] [address] [place] Monocytes (Bld) [#/Vol] 1.1 10*3/uL High 0.0-0.8 [facility] Comment on above: Performed By: #### B MP, CBC #### [address] Monocytes/100 WBC (Bld) 13.3 % Normal . [facility] Comment on above: Performed By: #### B MP, CBC #### [address] Neutrophils (Bld) [#/Vol] 5.9 10*3/uL Normal 1.8-7.7 [facility] Comment on above: Performed By: #### B MP, CBC #### [address] Neutrophils/100 WBC (Bld) 73.2 % Normal . [facility] Comment on above: Performed By: #### B MP, CBC #### [address] [place] [address] [place] NRBC% 0.0 /100{WBC} Normal 0-0.5 [facility] Comment on above: Performed By: #### B MP, CBC #### [address] Platelet mean volume (Bld) [Entitic vol] 8.2 fL Normal 6.3-10.7 [facility] Comment on above: Performed By: #### B MP, CBC #### [address] Platelets (Bld) [#/Vol] 182 10*3/uL Normal 150-450 [facility] Comment on above: Performed By: #### B MP, CBC #### [address] RBC (Bld) [#/Vol] 2.44 10*6/uL Low 3.60-5.00 [facility] Comment on above: Performed By: #### B MP, CBC #### [address] WBC (Bld) [#/Vol] 8.0 10*3/uL Normal 3.8-11.6 [facility] Comment on above: Performed By: #### B MP, CBC #### [address] Ferritinon 09-30-2022 Ferritin [Mass/Vol] 53.4 ng/mL Normal 11.0-306.8 [facility] Comment on above: Order Comment: Comme nt add on Result Comment: PERF ORMED BY: [place] [address] PATHOLOGIST ADMINISTRATIVE HEARING OFFICER CLARICE OSWALD M.D. Performed By: #### F ER, FE and TIBC #### [address] Ferritin [Mass/volume] in Se rum or PlasmaOrdered By: Mimi Artis on 09-30-2022 Ferritin [Mass/Vol] 53.4 ng/mL 11.0-306.8 [facility] Hemoglobin and Hematocriton 09-30-2022 Hematocrit (Bld) [Volume fraction] 25.5 % Low 34.0-46.4 [facility] Comment on above: Result Comment: PERF ORMED BY: [place] [address] PATHOLOGIST ADMINISTRATIVE HEARING OFFICER CLARICE OSWALD M.D. Performed By: #### F ER, FE and TIBC #### [facility] [address] [place] [address] Hemoglobin (Bld) [Mass/Vol] 8.6 g/dL Low 11.8-15.4 [facility] Comment on above: Performed By: #### F ER, FE and TIBC #### [address] Iron [Mass/volume] in Serum or PlasmaOrdered By: Mimi Artis on 09-30-2022 Iron [Mass/Vol] 20 ug/dL 50-212 [facility] Iron and TIBC Profileon 09-21 0-2022 % Iron Saturation 7.0 % Low 20-50 [facility] Comment on above: Order Comment: Comme nt add on Performed By: #### F ER, FE and TIBC #### [facility] [address] [place] [address] Iron [Mass/Vol] 20 ug/dL Low 50-212 [facility] Comment on above: Order Comment: Comme nt add on Performed By: #### F ER, FE and TIBC #### [facility] [address] [place] [address] Total Iron Binding Capacity 286 ug/dL Normal 255-450 [facility] Comment on above: Order Comment: Comme nt add on Performed By: #### F ER, FE and TIBC #### [facility] [address] [place] [address] Transferrin [Mass/Vol] 204 mg/dL Normal 203-362 [facility] Comment on above: Order Comment: Comme nt add on Performed By: #### F ER, FE and TIBC #### [address] [place] [address] [facility] Iron binding capacity [Mass/ volume] in Serum or PlasmaOrdered By: Mimi Artis on 09-30-2022 Iron binding capacity [Mass/Vol] 286 ug/dL 255-450 [facility] Iron saturation [Mass Fracti on] in Serum or PlasmaOrdered By: Mimi Artis on 09-30-2022 Iron saturation [Mass fraction] 7.0 % 20-50 [facility] Transferrin [Mass/volume] in Serum or PlasmaOrdered By: Mimi Artis on 09-30-2022 Transferrin [Mass/Vol] 204 mg/dL 203-362 [facility] Basic Metabolic Panelon Anion gap [Moles/Vol] 12.9 mmol/L Normal 6.0-15.0 [facility] Comment on above: Performed By: #### B MP, SCAN CBC #### [facility] [address] Calcium [Mass/Vol] 8.9 mg/dL Normal 8.6-10.3 [facility] Comment on above: Performed By: #### B MP, SCAN CBC #### [facility] [address] [place] [id number] [place] Chloride [Moles/Vol] 108 mmol/L High 98-107 [facility] Comment on above: Performed By: #### B MP, SCAN CBC #### [facility] [address] [place] [phone] [place] CO2 [Moles/Vol] 21.4 mmol/L Normal 21.0-31.0 [facility] Comment on above: Performed By: #### B MP, SCAN CBC #### [facility] [address] [place] [phone] [place] Creatinine [Mass/Vol] 0.56 mg/dL Low 0.60-1.20 [facility] Comment on above: Performed By: #### B MP, SCAN CBC #### [facility] [address] [place] [phone] [place] Creatinine Clr Calc Pharmacy 35.59 Normal [facility] Comment on above: Result Comment: PERF ORMED BY: [place] [address] PATHOLOGIST ADMINISTRATIVE HEARING OFFICER CLARICE OSWALD M.D. Performed By: #### B MP, SCAN CBC #### [facility] [address] [place] [address] [place] GFR/1.73 sq M.predicted MDRD (S/P/Bld) [Vol rate/Area] mL/min/{1.73_m2} Normal [facility] Comment on above: Performed By: #### B MP, SCAN CBC #### [facility] [address] Glucose [Mass/Vol] 118 mg/dL High 74-109 [facility] Comment on above: Result Comment: [facility] Glucose Reference Range is dependent on time and content of last meal. Glucose of more than 200 mg/dL in a nonstressed, ambulatory subject supports the diagnosis of Diabetes Mellitus. ADA recommended reference range Performed By: #### B MP, SCAN CBC #### [facility] [address] [place] [address] Potassium [Moles/Vol] 4.3 mmol/L Normal 3.5-5.1 [facility] Comment on above: Performed By: #### B MP, SCAN CBC #### [facility] [address] [place] [address] [place] Sodium [Moles/Vol] 138 mmol/L Normal 136-145 [facility] Comment on above: Performed By: #### B MP, SCAN CBC #### [facility] [address] [place] [address] [place] Urea nitrogen [Mass/Vol] 16 mg/dL Normal 7-25 [facility] Comment on above: Performed By: #### B MP, SCAN CBC #### [facility] [address] [place] [address] [place] Platelet adequacy [Presence] in Blood by Light microscopyOrdered By: Mimi Artis on 09-29-2022 Platelets LM Ql (Bld) Normal Normal [facility] Platelet morphology finding [Identifier] in BloodOrdered By: Mimi Artis on 03-09-2023 Platelet morphology finding Nom (Bld) Normal Normal [facility] RBC morphologyOrdered By: Rosalba Artis on 09-29-2022 RBC morphology finding Nom (Bld) Normal Normal [facility] Scan and CBCon 09-29-2022 Basophils (Bld) [#/Vol] 0.0 10*3/uL Normal 0.0-0.2 [facility] Comment on above: Performed By: #### B MP, SCAN CBC #### [facility] [address] Basophils/100 WBC (Bld) 0.1 % Normal . [facility] Comment on above: Performed By: #### B MP, SCAN CBC #### [facility] [address] Eosinophils (Bld) [#/Vol] 0.0 10*3/uL Normal 0.0-0.45 [facility] Comment on above: Performed By: #### B MP, SCAN CBC #### [facility] [address] Eosinophils/100 WBC (Bld) 0.0 % Normal . [facility] Comment on above: Performed By: #### B MP, SCAN CBC #### [facility] [address] Erythrocyte distribution width (RBC) [Ratio] 14.2 % Normal 11.9-15.3 [facility] Comment on above: Performed By: #### B MP, SCAN CBC #### [facility] [address] Hematocrit (Bld) [Volume fraction] 27.0 % Low 34.0-46.4 [facility] Comment on above: Performed By: #### B MP, SCAN CBC #### [facility] [address] [place] [address] [place] Hemoglobin (Bld) [Mass/Vol] 9.1 g/dL Low 11.8-15.4 [facility] Comment on above: Performed By: #### B MP, SCAN CBC #### [facility] [address] [place] [address] [place] Lymphocytes (Bld) [#/Vol] 0.9 10*3/uL Low 1.00-4.8 [facility] Comment on above: Performed By: #### B MP, SCAN CBC #### [facility] [address] Lymphocytes/100 WBC (Bld) 7.1 % Normal . [facility] Comment on above: Performed By: #### B MP, SCAN CBC #### [facility] [address] [place] [address] [place] MCH (RBC) [Entitic mass] 30.9 pg Normal 24.7-34.3 [facility] Comment on above: Performed By: #### B MP, SCAN CBC #### [facility] [address] [place] [address] MCV (RBC) [Entitic vol] 91.6 fL Normal 80-100 [facility] Comment on above: Performed By: #### B MP, SCAN CBC #### [facility] [address] [place] [address] Mean Corpuscular HGB Conc 33.7 g/dL Normal 32.0-35.0 [facility] Comment on above: Performed By: #### B MP, SCAN CBC #### [facility] [address] [place] [address] [place] Monocytes (Bld) [#/Vol] 1.7 10*3/uL High 0.0-0.8 [facility] Comment on above: Performed By: #### B MP, SCAN CBC #### [place] [address] [place] Monocytes/100 WBC (Bld) 13.5 % Normal . [facility] Comment on above: Performed By: #### B MP, SCAN CBC #### [facility] [address] [place] [address] [place] Neutrophils (Bld) [#/Vol] 10.2 10*3/uL High 1.8-7.7 [facility] Comment on above: Performed By: #### B MP, SCAN CBC #### [facility] [address] [place] [address] [place] Neutrophils/100 WBC (Bld) 79.3 % Normal . [facility] Comment on above: Performed By: #### B MP, SCAN CBC #### [address] NRBC% 0.0 /100{WBC} Normal 0-0.5 [facility] Comment on above: Performed By: #### B MP, SCAN CBC #### [place] [address] [place] Platelet Estimate Normal Normal Normal [facility] Comment on above: Performed By: #### B MP, SCAN CBC #### [address] Platelet mean volume (Bld) [Entitic vol] 8.0 fL Normal 6.3-10.7 [facility] Comment on above: Performed By: #### B MP, SCAN CBC #### [address] Platelet Morphology Normal Normal Normal [facility] Comment on above: Result Comment: PERF ORMED BY: [place] [address] PATHOLOGIST ADMINISTRATIVE HEARING OFFICER CLARICE OSWALD M.D. Performed By: #### B MP, SCAN CBC #### [place] [address] [place] Platelets (Bld) [#/Vol] 220 10*3/uL Normal 150-450 [facility] Comment on above: Performed By: #### B MP, SCAN CBC #### [place] [address] [place] RBC (Bld) [#/Vol] 2.95 10*6/uL Low 3.60-5.00 [facility] Comment on above: Performed By: #### B MP, SCAN CBC #### [address] RBC morphology finding Nom (Bld) Normal Normal Normal [facility] Comment on above: Performed By: #### B MP, SCAN CBC #### [place] [address] [place] WBC (Bld) [#/Vol] 12.9 10*3/uL High 3.8-11.6 [facility] Comment on above: Performed By: #### B MP, SCAN CBC #### [address] XR hip LT min 2V(w/wo pelvis )*on 09-29-2022 XR hip LT min 2V(w/wo pelvis)* [facility] Main [place] [address] [place] [address] XRay Report Signed Patient: Annamaria Garcia MR#: [id number] : 1935 Acct:[id number] Age/Sex: 87 / F ADM Date: 09/28/22 Loc: Room: [address] [place] [address] Type: ADM IN Attending Dr: Adama Kothari [...] Angie Francisco M.D.09/29/2022 11:29 AM Dictation Location: [place] [address] Transcribed By: [facility] 09/29/22 1129 Dictated By: Angie Francisco MD 09/29/22 1127 Signed By: 09/29/22 1129 Normal [facility] ABO AND RH TYPEon 09-28-2022 ABO and Rh group Nom (Bld) ABO Rh Typing A Rh Positive Normal [facility] Comment on above: Performed By: #### C MP, CMADM #### [facility] [address] [place] [address] [address] Nidhi Dawn Albumin Levelon 09-28-2022 Albumin [Mass/Vol] 4.0 g/dL Normal 3.5-5.7 [facility] Comment on above: Result Comment: PERF ORMED BY: [place] [address] PATHOLOGIST ADMINISTRATIVE HEARING OFFICER CLARICE OSWALD M.D. Performed By: #### F ER, FE and TIBC #### [facility] [address] [place] [address] [place] Albumin [Mass/volume] in Ser um or Plasma by Bromocresol green (BCG) dye binding methoOrdered By: Bulmaro Moses on 09-28-2022 Albumin BCG dye [Mass/Vol] 4.0 g/dL 3.5-5.7 [facility] Basic Metabolic Panelon Anion gap [Moles/Vol] 10.8 mmol/L Normal 6.0-15.0 [facility] Comment on above: Performed By: #### F ER, FE and TIBC #### [facility] [address] [place] [address] [place] Calcium [Mass/Vol] 9.0 mg/dL Normal 8.6-10.3 [facility] Comment on above: Performed By: #### F ER, FE and TIBC #### [facility] [address] [place] [address] [place] Chloride [Moles/Vol] 103 mmol/L Normal 98-107 [facility] Comment on above: Performed By: #### F ER, FE and TIBC #### [facility] [address] [place] [address] [place] CO2 [Moles/Vol] 28.5 mmol/L Normal 21.0-31.0 [facility] Comment on above: Performed By: #### F ER, FE and TIBC #### [facility] [address] [place] [address] [place] Creatinine [Mass/Vol] 0.40 mg/dL Low 0.60-1.20 [facility] Comment on above: Performed By: #### F ER, FE and TIBC #### [facility] [address] Creatinine Clr Calc Pharmacy 31.68 [facility] Comment on above: Result Comment: PERF ORMED BY: [place] [address] PATHOLOGIST ADMINISTRATIVE HEARING OFFICER CLARICE OSWALD M.D. Performed By: #### F ER, FE and TIBC #### [address] GFR/1.73 sq M.predicted MDRD (S/P/Bld) [Vol rate/Area] mL/min/{1.73_m2} [facility] Comment on above: Performed By: #### F ER, FE and TIBC #### [address] Glucose [Mass/Vol] 143 mg/dL High 74-109 [facility] Comment on above: Result Comment: [facility] Glucose Reference Range is dependent on time and content of last meal. Glucose of more than 200 mg/dL in a nonstressed, ambulatory subject supports the diagnosis of Diabetes Mellitus. ADA recommended reference range Performed By: #### F ER, FE and TIBC #### [address] Potassium [Moles/Vol] 3.3 mmol/L Low 3.5-5.1 [facility] Comment on above: Performed By: #### F ER, FE and TIBC #### [address] Sodium [Moles/Vol] 139 mmol/L Normal 136-145 [facility] Comment on above: Performed By: #### F ER, FE and TIBC #### [address] Urea nitrogen [Mass/Vol] 8 mg/dL Normal 7-25 [facility] Comment on above: Performed By: #### F ER, FE and TIBC #### [address] ABD/PELVIS WO CONon 09-28 CT [...] by: RAVEN RENNER Date: 2022-09-27 22:38 Normal [facility] CT CSPINE WO CONon CT CSPINE [...] SOPHIE SINGLETON Date: 2022-09-27 22:42 Normal [facility] CT HEAD WO CONon 09-28-2022 CT HEAD [...] RAVEN RENNER Date: 2022-09-27 22:43 Normal [facility] CT LSPINE WO CONon CT LSPINE WO CON EXAM: CT LSPINE [...] KANU BURK Date: 2022-09-27 22:42 Normal [facility] Complete Blood Count Auto Di ffon 09-28-2022 Basophils (Bld) [#/Vol] 0.0 10*3/uL Normal 0.0-0.2 [facility] Comment on above: Result Comment: PERF ORMED BY: [place] [address] PATHOLOGIST ADMINISTRATIVE HEARING OFFICER CLARICE OSWALD M.D. Performed By: #### F ER, FE and TIBC #### [facility] [address] [place] [address] Basophils/100 WBC (Bld) 0.0 % Normal . [facility] Comment on above: Performed By: #### F ER, FE and TIBC #### [facility] [address] [place] [address] [place] Eosinophils (Bld) [#/Vol] 0.0 10*3/uL Normal 0.0-0.45 [facility] Comment on above: Performed By: #### F ER, FE and TIBC #### [facility] [address] [place] [address] [place] Eosinophils/100 WBC (Bld) 0.0 % Normal . [facility] Comment on above: Performed By: #### F ER, FE and TIBC #### [facility] [address] [place] [address] Erythrocyte distribution width (RBC) [Ratio] 13.9 % Normal 11.9-15.3 [facility] Comment on above: Performed By: #### F ER, FE and TIBC #### [facility] [address] Hematocrit (Bld) [Volume fraction] 33.9 % Low 34.0-46.4 [facility] Comment on above: Performed By: #### F ER, FE and TIBC #### [address] Hemoglobin (Bld) [Mass/Vol] 11.5 g/dL Low 11.8-15.4 [facility] Comment on above: Performed By: #### F ER, FE and TIBC #### [address] Lymphocytes (Bld) [#/Vol] 0.6 10*3/uL Low 1.00-4.8 [facility] Comment on above: Performed By: #### F ER, FE and TIBC #### [address] Lymphocytes/100 WBC (Bld) 4.7 % Normal . [facility] Comment on above: Performed By: #### F ER, FE and TIBC #### [address] MCH (RBC) [Entitic mass] 30.8 pg Normal 24.7-34.3 [facility] Comment on above: Performed By: #### F ER, FE and TIBC #### [address] MCV (RBC) [Entitic vol] 90.8 fL Normal 80-100 [facility] Comment on above: Performed By: #### F ER, FE and TIBC #### [address] Mean Corpuscular HGB Conc 34.0 g/dL Normal 32.0-35.0 [facility] Comment on above: Performed By: #### F ER, FE and TIBC #### [address] Monocytes (Bld) [#/Vol] 0.9 10*3/uL High 0.0-0.8 [facility] Comment on above: Performed By: #### F ER, FE and TIBC #### [facility] [address] Monocytes/100 WBC (Bld) 7.4 % Normal . [facility] Comment on above: Performed By: #### F ER, FE and TIBC #### [facility] [address] [place] [address] Neutrophils (Bld) [#/Vol] 10.7 10*3/uL High 1.8-7.7 [facility] Comment on above: Performed By: #### F ER, FE and TIBC #### [address] Neutrophils/100 WBC (Bld) 87.9 % Normal . [facility] Comment on above: Performed By: #### F ER, FE and TIBC #### [address] NRBC% 0.1 /100{WBC} Normal 0-0.5 [facility] Comment on above: Performed By: #### F ER, FE and TIBC #### [address] Platelet mean volume (Bld) [Entitic vol] 8.0 fL Normal 6.3-10.7 [facility] Comment on above: Performed By: #### F ER, FE and TIBC #### [facility] [address] [place] [address] Platelets (Bld) [#/Vol] 253 10*3/uL Normal 150-450 [facility] Comment on above: Performed By: #### F ER, FE and TIBC #### [address] RBC (Bld) [#/Vol] 3.73 10*6/uL Normal 3.60-5.00 [facility] Comment on above: Performed By: #### F ER, FE and TIBC #### [address] [place] [address] [facility] WBC (Bld) [#/Vol] 12.2 10*3/uL High 3.8-11.6 [facility] Comment on above: Performed By: #### F ER, FE and TIBC #### [facility] [address] [place] [id number] [facility] ECG 12 lead ECGon 09-28-2022 ECG 12 lead ECG [facility] Main [place] [address] [place] [address] Electrocardiograph Report Signed Patient: Annamaria Garcia MR#: [id number] : 1935 Acct:[id number] Age/Sex: 87 / F ADM Date: 09/28/22 Loc: Room: [address] [place] [address] Type: ADM IN Attending Dr: Adama Kothari [...] Knight MD 0 09/28/22 1508 Normal [facility] ER URINE PROFILEon 3 Bilirubin Ql (U) Negative Normal NEGATIVE [facility] Comment on above: Performed By: #### C HELENA CARCAMO #### [facility] [address] [place] [address] Dr. Nidhi Dawn Clarity (U) CLEAR Normal CLEAR [facility] Comment on above: Performed By: #### C HELENA CARCAMO #### [facility] [address] [place] [address] Dr. Nidhi Dawn Color (U) LT. YELLOW Normal YELLOW [facility] Comment on above: Performed By: #### C DONA, CMADM #### [facility] [address] [place] [address] Dr. Nidhi TERRAZAS A micrscopic examina tion will be performed if indicated. Normal [facility] Comment on above: Performed By: #### C MP, CMADM #### [facility] [address] [place] [address] [address] Nidhi Dawn Glucose Ql (U) Negative Normal NEGATIVE [facility] Comment on above: Performed By: #### C MP, CMADM #### [facility] [address] [place] [address] Dr. Nidhi Dawn Hemoglobin Ql (U) Negative Normal NEGATIVE [facility] Comment on above: Performed By: #### C DONA, CMADM #### [facility] [address] [place] [address] Dr. Nidhi Dawn Ketones Ql (U) 40 mg/dl Abnormal NEGATIVE [facility] Comment on above: Performed By: #### C MP, CMADM #### [facility] [address] [place] [address] Dr. Nidhi Dawn LEUKOCYTES Negative Normal NEGATIVE [facility] Comment on above: Performed By: #### C MP, CMADM #### [facility] [address] [place] [address] Dr. Nidhi Dawn Nitrite Ql (U) Negative Normal NEGATIVE [facility] Comment on above: Performed By: #### C MP, CMADM #### [facility] [address] [place] [address] Dr. Nidhi Dawn pH (U) 7.0 [pH] Normal 5-9 [facility] Comment on above: Performed By: #### C MP, CMADM #### [facility] [address] [place] [address] Dr. Nidhi Dawn SPEC GRAVITY 1.010 Normal 1.005-<=1.0 25 [facility] Comment on above: Performed By: #### C MP, CMADM #### [facility] [address] [place] [address] [address] Nidhi Dawn UA PROTEIN TRACE Normal NEGATIVE/ TRACE [facility] Comment on above: Performed By: #### C HELENA CARCAMO #### [facility] [address] [place] [address] [address] Nidhi Dawn UR MICRO IND NOT INDICATED Normal [facility] Comment on above: Performed By: #### C DONA, HELENA #### [facility] [address] [place] [address] [address] Nidhi Dawn Urobilinogen Qn (U) 0.2 {Lawrence'U}/dL Normal 0.2 - 1. 0 [facility] Comment on above: Performed By: #### C HELENA CARCAMO #### [facility] [address] [place] [address] [address] Nidhi Dawn Glucose Glucometer (BldC) [M ass/Vol]Ordered By: Juliet Green on 09-28-2022 Glucose [Mass/Vol] 107 mg/dL [facility] Comment on above: Random Glucose Refer ence Range is dependent on time and content of last meal. Glucose of more than 200 mg/dL in a nonstressed, ambulatory subject supports the diagnosis of Diabetes Mellitus. Glucose Poct Glucometerson 0 09-28-2022 Glucose [Mass/Vol] 107 mg/dL Normal [facility] Comment on above: Result Comment: [facility] Glucose Reference Range is dependent on time and content of last meal. Glucose of more than 200 mg/dL in a nonstressed, ambulatory subject supports the diagnosis of Diabetes Mellitus. PERFORMED BY: [facility] [address] [place] [address] PATHOLOGIST ADMINISTRATIVE HEARING OFFICER CLARICE OSWALD M.D. Performed By: #### G LULS #### Point of Care testing , Laboratory - CoagulationOrde red By: Juliet Green on 09-28-2022 PT Coag (PPP) [Time] 13.1 s 9.0-12.9 [facility] Magnesiumon 09-28-2022 Magnesium [Mass/Vol] 1.9 mg/dL Normal 1.9-2.7 [facility] Comment on above: Order Comment: Comme nt add Result Comment: PERF ORMED BY: [facility] [address] [place] [address] PATHOLOGIST ADMINISTRATIVE HEARING OFFICER CLARICE OSWALD M.D. Performed By: #### M G #### [facility] [address] Magnesium [Mass/volume] in S enma or PlasmaOrdered By: Juliet Green on 09-28-2022 Magnesium [Mass/Vol] 1.9 mg/dL 1.9-2.7 [facility] Platelet poor plasma interna tional normalized ratio (INR) by coagulation assay (relatOrdered By: Juliet Green on 09-28-2022 INR Coag (PPP) [Relative time] 1.1 {INR} [facility] Comment on above: INR Therapeutic Rang e [...] (PPP) [Relative time] 1.1 {INR} Normal [facility] Comment on above: Result Comment: INR Therapeutic [...] heart valves: 3 - 4.5 PERFORMED BY: [address] [address] PATHOLOGIST ADMINISTRATIVE HEARING OFFICER CLARICE OSWALD M.D. Performed By: #### F ER, FE and TIBC #### [facility] [address] [place] [address] [facility] PT Coag (PPP) [Time] 13.1 s High 9.0-12.9 [facility] Comment on above: Performed By: #### F ER, FE and TIBC #### [facility] [address] [place] [address] Vitamin B12on 09-28-2022 Cobalamin (Vitamin B12) [Mass/Vol] 202 pg/mL Normal 180-914 [facility] Comment on above: Result Comment: PERF ORMED BY: [place] [address] PATHOLOGIST ADMINISTRATIVE HEARING OFFICER CLARICE OSWALD M.D. Performed By: #### B 12 #### [facility] [address] [place] [address] Vitamin B12 ser/plasOrdered By: Mimi Artis on 09-28-2022 Cobalamin (Vitamin B12) [Mass/Vol] 202 pg/mL 180-914 [facility] Vitamin D 25 Hydroxy,Tot+D2+ D3on 09-28-2022 Vitamin D 25 OH (LC) 33 ng/mL Normal . [facility] Comment on above: Result Comment: Refe rence Range: All Ages: Target levels 30 - 100 Performed By: #### F ER, FE and TIBC #### [facility] [address] [place] [address] Vitamin D-2 <1.0 Normal . [facility] Comment on above: Result Comment: This test was developed and its performance characteristics determined by [facility]. It has not been cleared or approved by the Food and Drug Administration. Performed By: #### F ER, FE and TIBC #### [facility] [address] [place] [address] Vitamin D-3 33 ng/mL Normal . [facility] Comment on above: Result Comment: This test was developed and its performance characteristics determined by [facility]. It has not been cleared or approved by the Food and Drug Administration. Performed at: [facility] [address] [place] [id number] Oral Therapist: Avel Dempsey MD, Phone: [phone] PERFORMED BY: [place] [address] PATHOLOGIST ADMINISTRATIVE HEARING OFFICER CLARICE OSWALD M.D. Performed By: #### F ER, FE and TIBC #### [facility] [address] [place] [id number] [facility] XR femur LT 2V*on 09-28-2022 XR femur LT 2V* [facility] Main [place] [address] [place] [id number] XRay Report Signed Patient: Annamaria Garcia MR#: [id number] : 1935 Acct:[id number] Age/Sex: 87 / F ADM Date: 09/28/22 Loc: Room: [address] [place] [address] Type: ADM IN Attending Dr: Juliet Green MD Copies to: MD Juliet Lennon MD Ordering Provider: Bulmaro Moses MD Date of Service: 09/28/22 XR/XR femur LT 2V*: left fem head fx ([id number]) XR/XR low pelvis w/LT x-table hip: left [...] fractures or dislocation are seen within the kjvea-[id number]. There is mild degenerative change at the knee with medial tibiofemoral joint compartment narrowing and minor tricompartment marginal spurring. There are no focal soft tissue findings. IMPRESSION: NO ACUTE BONY INJURY WITHIN THE [id number]-FU-YSVA. Impression dictated by: Angie Francisco M.D.09/28/2022 7:21 AM Dictation Location: [place] [address] Transcribed By: [facility] 09/28/22720 Dictated By: Angie Francisco MD 09/28/22715 Signed By: 09/28/22720 [facility] CARDIAC CELESTINO ADMITon 023 CK [Catalytic activity/Vol] 96 U/L Normal 26-192 [facility] Comment on above: Performed By: #### C MP, CMADM #### [facility] [address] [place] [address] Dr. Nidhi Dawn CK.MB [Mass/Vol] 2.59 ng/mL Normal <=3.60 [facility] Comment on above: Performed By: #### C DONA, CMADM #### [facility] [address] [place] [address] Dr. Nidhi Dawn HSTROP 8.6 pg/mL Normal 4.0-51.3 [facility] Comment on above: Result Comment: CUT- OFF POINTS HAVE BEEN ESTABLISHED BASED ON THE FOURTH UNIVERSAL DEFINITIONS OF MYOCARDIAL INFARCTION. THE UPPER REFERENCE LIMIT (URL) OF TROPONIN, DEFINED THE 99TH PERCENTILE OF cTnI DISTRIBUTION IN A REFERENCE POPULATION, HAS BEEN CONFIRMED THE DECISION THRESHOLD FOR OK DIAGNOSIS. Performed By: #### C DONA, CMADM #### [facility] [address] [place] [address] Dr. Nidhi Dawn BOBBY 75 ng/mL Normal 9-82 [facility] Comment on above: Performed By: #### C MP, CMADM #### [facility] [address] [place] [address] Dr. Nidhi Dawn CBC AUTO DIFFon 09-27-2022 BASO # 0.0 103/ul Normal 0.0-0.1 [facility] Comment on above: Performed By: #### C BC #### [facility] [address] [place] [address] [address] Nidhi Dawn Basophils/100 WBC (Bld) 0.2 % Normal 0.2-2.0 [facility] Comment on above: Performed By: #### C BC #### [facility] [address] [place] [address] Dr. Nidhi Dawn EO # 0.0 103/ul Normal 0.0-0.7 [facility] Comment on above: Performed By: #### C BC #### [facility] [address] [place] [address] Dr. Nidhi Dawn Eosinophils/100 WBC (Bld) 0.1 % Critically low 0.9-7.0 [facility] Comment on above: Performed By: #### C BC #### [facility] [address] [place] [address] Dr. Nidhi Dawn Erythrocyte distribution width (RBC) [Ratio] 13.2 % Normal 11.0-15.0 [facility] Comment on above: Performed By: #### C BC #### [facility] [address] [place] [address] Dr. Nidhi Dawn Hematocrit (Bld) [Volume fraction] 34.6 % Critically low 36.0-48.0 [facility] Comment on above: Performed By: #### C BC #### [facility] [address] [place] [address] Dr. Nidhi Dawn Hemoglobin (Bld) [Mass/Vol] 11.7 g/dL Critically low 12.0-16.0 [facility] Comment on above: Performed By: #### C BC #### [facility] [address] [place] [address] Dr. Nidhi Dawn IG # 0.06 10e3/ul Critically high 0.00-0.03 [facility] Comment on above: Performed By: #### C BC #### [facility] [address] [place] [address] Dr. Nidhi Dawn IG % 0.4 % Normal 0.0-0.5 [facility] Comment on above: Performed By: #### C BC #### [facility] [address] [place] [address] Dr. Nidhi Dawn LYMPH # 1.1 103/ul Critically low 1.2-3.8 [facility] Comment on above: Performed By: #### C BC #### [facility] [address] [place] [address] Dr. Nidhi Dawn Lymphocytes/100 WBC (Bld) 7.0 % Critically low 20.5-60.0 [facility] Comment on above: Performed By: #### C BC #### [facility] [address] [place] [address] Dr. Nidhi Dawn MANUAL DIFF REQ NO Normal [facility] Comment on above: Performed By: #### C BC #### [facility] [address] [place] [address] Dr. Nidhi Dawn MCH (RBC) [Entitic mass] 31.0 pg Normal 26.7-34.0 [facility] Comment on above: Performed By: #### C BC #### [facility] [address] [place] [address] Dr. Nidhi Dawn MCHC (RBC) [Mass/Vol] 33.8 g/dL Normal 29.9-35.2 [facility] Comment on above: Performed By: #### C BC #### [facility] [address] [place] [address] Dr. Nidhi Dawn MCV (RBC) [Entitic vol] 91.8 fL Normal 81.0-99.0 [facility] Comment on above: Performed By: #### C BC #### [facility] [address] [place] [address] Dr. Nidhi Dawn MONO # 1.1 103/ul Critically high 0.3-0.8 [facility] Comment on above: Performed By: #### C BC #### [facility] [address] [place] [address] Dr. Nidhi Dawn Monocytes/100 WBC (Bld) 7.0 % Normal 1.7-12.0 [facility] Comment on above: Performed By: #### C BC #### [facility] [address] [place] [address] Dr. Nidhi Dawn NEUT # 13.1 103/ul Critically high 1.4-6.5 [facility] Comment on above: Performed By: #### C BC #### [facility] [address] [address] [address] Nidhi Dawn Neutrophils/100 WBC (Bld) 85.3 % Critically high 43.0-75.0 [facility] Comment on above: Performed By: #### C BC #### [facility] [address] [address] [address] Nidhi Dawn Platelet mean volume (Bld) [Entitic vol] 9.1 fL Critically low 9.5-13.5 [facility] Comment on above: Performed By: #### C BC #### [facility] [address] [address] [address] Nidhi Dawn PLT 274 103/ul Normal 150-450 [facility] Comment on above: Performed By: #### C BC #### [facility] [address] [place] [address] Dr. Nidhi Dawn RBC 3.77 106/ul Critically low 4.20-5.40 [facility] Comment on above: Performed By: #### C BC #### [facility] [address] [place] [address] Dr. Nidhi Dawn WBC 15.4 103/ul Critically high 4.0-11.0 [facility] Comment on above: Performed By: #### C BC #### [facility] [address] [place] [address] Dr. Nidhi Dawn MAGNESIUMon 09-27-2022 Magnesium [Mass/Vol] 1.6 mg/dL Critically low 1.8-2.4 [facility] Comment on above: Performed By: #### C BC #### [facility] [address] [place] [address] Dr. Nidhi Dawn PROF 14(COMP METB)on 023 Albumin [Mass/Vol] 3.6 g/dL Normal 3.4-5.0 [facility] Comment on above: Performed By: #### C MP, CMADM #### [facility] [address] [place] [address] Dr. Nidhi Dawn Albumin/Globulin [Mass ratio] 1.2 {ratio} Normal [facility] Comment on above: Performed By: #### C MP, CMADM #### [facility] [address] [address] [address] Nidhi Dawn ALP [Catalytic activity/Vol] 60 U/L Normal 46-116 [facility] Comment on above: Performed By: #### C MP, CMADM #### [facility] [address] [address] [address] Nidhi Dawn ALT [Catalytic activity/Vol] 18 U/L Normal 14-59 [facility] Comment on above: Performed By: #### C MP, CMADM #### [facility] [address] [address] [address] Nidhi Dawn Anion gap [Moles/Vol] 9.3 mmol/L Normal [facility] Comment on above: Performed By: #### C MP, CMADM #### [facility] [address] [address] [address] Nidhi Dawn AST [Catalytic activity/Vol] 19 U/L Normal 15-37 [facility] Comment on above: Performed By: #### C DONA, CMADM #### [facility] [address] [address] [address] Nidhi Dawn Bilirubin [Mass/Vol] 0.4 mg/dL Normal 0.2-1.0 [facility] Comment on above: Performed By: #### C MP, CMADM #### [facility] [address] [address] [address] Nidhi Dawn Calcium [Mass/Vol] 8.8 mg/dL Normal 8.5-10.1 [facility] Comment on above: Performed By: #### C MP, CMADM #### [facility] [address] [address] [address] Nidhi Dawn Chloride [Moles/Vol] 104 mmol/L Normal 98-107 [facility] Comment on above: Performed By: #### C MP, CMADM #### [facility] [address] [address] [address] Nidhi Dawn CO2 [Moles/Vol] 30.6 mmol/L Normal 21.0-32.0 [facility] Comment on above: Performed By: #### C MP, CMADM #### [facility] [address] [address] [address] Nidhi Dawn Creatinine [Mass/Vol] 0.43 mg/dL Critically low 0.55-1.02 [facility] Comment on above: Performed By: #### C MP, CMADM #### [facility] [address] [address] [address] Nidhi Dawn EGFR-AF FAROESE >60 Normal >=60 [facility] Comment on above: Performed By: #### C MP, CMADM #### [facility] [address] [address] [address] Nidhi Dawn EGFR-NON AF FAROESE >60 Normal >=60 [facility] Comment on above: Performed By: #### C MP, CMADM #### [facility] [address] [address] [address] Nidhi Dawn Globulin (S) [Mass/Vol] 3.0 g/dL Normal [facility] Comment on above: Performed By: #### C MP, CMADM #### [facility] [address] [address] [address] Nidhi Dawn Glucose [Mass/Vol] 152 mg/dL Critically high 74-106 T [facility] Comment on above: Performed By: #### C MP, CMADM #### [facility] [address] [address] [address] Nidhi Dawn Potassium [Moles/Vol] 2.9 mmol/L Critically low 3.5-5.1 [facility] Comment on above: Performed By: #### C MP, CMADM #### [facility] [address] [address] [address] Nidhi Dawn Protein [Mass/Vol] 6.6 g/dL Normal 6.4-8.2 [facility] Comment on above: Performed By: #### C MP, CMADM #### [facility] [address] [address] [address] Nidhi Dawn Sodium [Moles/Vol] 140 mmol/L Normal 136-145 [facility] Comment on above: Performed By: #### C MP, CMADM #### [facility] [address] [address] [address] Nidhi Dawn Urea nitrogen [Mass/Vol] 5.0 mg/dL Critically low 7.0-18.0 [facility] Comment on above: Performed By: #### C DONA, CMADM #### [facility] [address] [address] [address] Nidhi Dawn Urea nitrogen/Creatinine [Mass ratio] 11.6 mg/mg Normal [facility] Comment on above: Performed By: #### C DONA, CMADM #### [facility] [address] [address] [address] PELVIS WO CONon [...] TAYLOR PENA Date: 2022-05-02 16:39 Normal [facility] T4 [facility]ORPon 04-05-2022 T4 [Mass/Vol] 6.9 ug/dL Normal 4.5-12.0 [facility] Comment on above: Performed By: #### C BC #### [facility] [address] [place] [address] Dr. Nidhi Dawn CBC AUTO DIFFon 04-04-2022 BASO # 0.0 103/ul Normal 0.0-0.1 [facility] Comment on above: Performed By: #### C BC #### [facility] [address] [place] [address] Dr. Nidhi Dawn Basophils/100 WBC (Bld) 0.4 % Normal 0.2-2.0 [facility] Comment on above: Performed By: #### C BC #### [facility] [address] [place] [address] Dr. Nidhi Dawn EO # 0.2 103/ul Normal 0.0-0.7 [facility] Comment on above: Performed By: #### C BC #### [facility] [address] [address] [address] Nidhi Dawn Eosinophils/100 WBC (Bld) 3.1 % Normal 0.9-7.0 [facility] Comment on above: Performed By: #### C BC #### [facility] [address] [place] [address] Dr. Nidhi Dawn Erythrocyte distribution width (RBC) [Ratio] 13.6 % Normal 11.0-15.0 [facility] Comment on above: Performed By: #### C BC #### [facility] [address] [place] [address] Dr. Nidhi Dawn Hematocrit (Bld) [Volume fraction] 30.8 % Critically low 36.0-48.0 [facility] Comment on above: Performed By: #### C BC #### [facility] [address] [place] [address] Dr. Nidhi Dawn Hemoglobin (Bld) [Mass/Vol] 10.3 g/dL Critically low 12.0-16.0 [facility] Comment on above: Performed By: #### C BC #### [facility] [address] [place] [address] Dr. Nidhi Dawn IG # 0.04 10e3/ul Critically high 0.00-0.03 [facility] Comment on above: Performed By: #### C BC #### [facility] [address] [place] [address] Dr. Nidhi Dawn IG % 0.6 % Critically high 0.0-0.5 [facility] Comment on above: Performed By: #### C BC #### [facility] [address] [place] [address] Dr. Nidhi Dawn LYMPH # 1.3 103/ul Normal 1.2-3.8 [facility] Comment on above: Performed By: #### C BC #### [facility] [address] [place] [address] Dr. Nidhi Dawn Lymphocytes/100 WBC (Bld) 18.3 % Critically low 20.5-60.0 [facility] Comment on above: Performed By: #### C BC #### [facility] [address] [place] [address] Dr. Nidhi Dawn MANUAL DIFF REQ NO Normal [facility] Comment on above: Performed By: #### C BC #### [facility] [address] [place] [address] Dr. Nidhi Dawn MCH (RBC) [Entitic mass] 31.0 pg Normal 26.7-34.0 [facility] Comment on above: Performed By: #### C BC #### [facility] [address] [place] [address] Dr. Nidhi Dawn MCHC (RBC) [Mass/Vol] 33.4 g/dL Normal 29.9-35.2 [facility] Comment on above: Performed By: #### C BC #### [facility] [address] [address] [address] Nidhi Dawn MCV (RBC) [Entitic vol] 92.8 fL Normal 81.0-99.0 [facility] Comment on above: Performed By: #### C BC #### [facility] [address] [address] [address] Nidhi Dawn MONO # 1.0 103/ul Critically high 0.3-0.8 [facility] Comment on above: Performed By: #### C BC #### [facility] [address] [place] [address] Dr. Nidhi Dawn Monocytes/100 WBC (Bld) 13.7 % Critically high 1.7-12.0 [facility] Comment on above: Performed By: #### C BC #### [facility] [address] [place] [address] Dr. Nidhi Dawn NEUT # 4.5 103/ul Normal 1.4-6.5 [facility] Comment on above: Performed By: #### C BC #### [facility] [address] [place] [address] Dr. Nidhi Dawn Neutrophils/100 WBC (Bld) 63.9 % Normal 43.0-75.0 [facility] Comment on above: Performed By: #### C BC #### [facility] [address] [place] [address] Dr. Nidhi Dawn Platelet mean volume (Bld) [Entitic vol] 9.6 fL Normal 9.5-13.5 [facility] Comment on above: Performed By: #### C BC #### [facility] [address] [place] [address] Dr. Nidhi Dawn PLT 228 103/ul Normal 150-450 [facility] Comment on above: Performed By: #### C BC #### [facility] [address] [place] [address] Dr. Nidhi Dawn RBC 3.32 106/ul Critically low 4.20-5.40 [facility] Comment on above: Performed By: #### C BC #### [facility] [address] [place] [address] Dr. Nidhi Dawn WBC 7.0 103/ul Normal 4.0-11.0 [facility] Comment on above: Performed By: #### C BC #### [facility] [address] [place] [address] Dr. Nidhi Dawn CULTURE URINEon 04-04-2022 CULTURE [...] Trimethoprim/Sulfamethoxaz ole <=20 S F Normal [facility] Comment on above: Performed By: #### C HELENA CARCAMO #### [facility] [address] [place] [address] Dr. Nidhi Dawn PROF CHEM 8 (BAS METB)on Anion gap [Moles/Vol] 8.8 mmol/L Normal [facility] Comment on above: Performed By: #### C MP, CMADM #### [facility] [address] [address] [address] Nidhi Dawn Calcium [Mass/Vol] 8.7 mg/dL Normal 8.5-10.1 [facility] Comment on above: Performed By: #### C MP, CMADM #### [facility] [address] [address] [address] Nidhi Dawn Chloride [Moles/Vol] 101 mmol/L Normal 98-107 [facility] Comment on above: Performed By: #### C MP, CMADM #### [facility] [address] [address] [address] Nidhi Dawn CO2 [Moles/Vol] 29.6 mmol/L Normal 21.0-32.0 [facility] Comment on above: Performed By: #### C DONA, CMADM #### [facility] [address] [place] [address] Dr. Nidhi Dawn Creatinine [Mass/Vol] 0.56 mg/dL Normal 0.55-1.02 [facility] Comment on above: Performed By: #### C DONA, CMADM #### [facility] [address] [place] [address] Dr. Nidhi Dawn EGFR-AF FAROESE >60 Normal >=60 [facility] Comment on above: Performed By: #### C DONA, CMADM #### [facility] [address] [place] [address] Dr. Nidhi Dawn EGFR-NON AF FAROESE >60 Normal >=60 [facility] Comment on above: Performed By: #### C DONA, CMADM #### [facility] [address] [place] [address] Dr. Nidhi Danw Glucose [Mass/Vol] 106 mg/dL Normal 74-106 [facility] Comment on above: Performed By: #### C MP, CMADM #### [facility] [address] [place] [address] Dr. Nidhi Dawn Potassium [Moles/Vol] 3.4 mmol/L Critically low 3.5-5.1 [facility] Comment on above: Performed By: #### C DONA, CMADM #### [facility] [address] [place] [address] Dr. Nidhi Dawn Sodium [Moles/Vol] 136 mmol/L Normal 136-145 [facility] Comment on above: Performed By: #### C MP, CMADM #### [facility] [address] [place] [address] Dr. Nidhi Dawn Urea nitrogen [Mass/Vol] 10.0 mg/dL Normal 7.0-18.0 [facility] Comment on above: Performed By: #### C MP, CMADM #### [facility] [address] [place] [address] Dr. Nidhi Dawn Urea nitrogen/Creatinine [Mass ratio] 17.9 mg/mg Normal [facility] Comment on above: Performed By: #### C DONA, CMADM #### [facility] [address] [place] [address] Dr. Nidhi Dawn CBC AUTO DIFFon 04-03-2022 BASO # 0.0 103/ul Normal 0.0-0.1 [facility] Comment on above: Performed By: #### C BC #### [facility] [address] [place] [address] Dr. Nidhi Dawn Basophils/100 WBC (Bld) 0.4 % Normal 0.2-2.0 [facility] Comment on above: Performed By: #### C BC #### [facility] [address] [place] [address] Dr. Nidhi Dawn EO # 0.1 103/ul Normal 0.0-0.7 [facility] Comment on above: Performed By: #### C BC #### [facility] [address] [place] [address] Dr. Nidhi Dawn Eosinophils/100 WBC (Bld) 1.0 % Normal 0.9-7.0 [facility] Comment on above: Performed By: #### C BC #### [facility] [address] [place] [address] Dr. Nidhi Dawn Erythrocyte distribution width (RBC) [Ratio] 13.6 % Normal 11.0-15.0 [facility] Comment on above: Performed By: #### C BC #### [facility] [address] [place] [address] Dr. Nidhi Dawn Hematocrit (Bld) [Volume fraction] 28.4 % Critically low 36.0-48.0 [facility] Comment on above: Performed By: #### C BC #### [facility] [address] [place] [address] Dr. Nidhi Dawn Hemoglobin (Bld) [Mass/Vol] 9.2 g/dL Critically low 12.0-16.0 [facility] Comment on above: Performed By: #### C BC #### [facility] [address] [place] [address] Dr. Nidhi Dawn IG # 0.04 10e3/ul Critically high 0.00-0.03 [facility] Comment on above: Performed By: #### C BC #### [facility] [address] [place] [address] Dr. Nidhi Dawn IG % 0.5 % Normal 0.0-0.5 [facility] Comment on above: Performed By: #### C BC #### [facility] [address] [place] [address] Dr. Nidhi Dawn LYMPH # 1.1 103/ul Critically low 1.2-3.8 [facility] Comment on above: Performed By: #### C BC #### [facility] [address] [place] [address] Dr. Nidhi Dawn Lymphocytes/100 WBC (Bld) 13.6 % Critically low 20.5-60.0 [facility] Comment on above: Performed By: #### C BC #### [facility] [address] [place] [address] Dr. Nidhi Dawn MANUAL DIFF REQ NO Normal [facility] Comment on above: Performed By: #### C BC #### [facility] [address] [place] [address] Dr. Nidhi Dawn MCH (RBC) [Entitic mass] 30.0 pg Normal 26.7-34.0 [facility] Comment on above: Performed By: #### C BC #### [facility] [address] [address] [address] Nidhi Dawn MCHC (RBC) [Mass/Vol] 32.4 g/dL Normal 29.9-35.2 [facility] Comment on above: Performed By: #### C BC #### [facility] [address] [address] [address] Nidhi Dawn MCV (RBC) [Entitic vol] 92.5 fL Normal 81.0-99.0 [facility] Comment on above: Performed By: #### C BC #### [facility] [address] [address] [address] Nidhi Dawn MONO # 0.9 103/ul Critically high 0.3-0.8 [facility] Comment on above: Performed By: #### C BC #### [facility] [address] [place] [address] Dr. Nidhi Dawn Monocytes/100 WBC (Bld) 12.1 % Critically high 1.7-12.0 [facility] Comment on above: Performed By: #### C BC #### [facility] [address] [place] [address] Dr. Nidhi Dawn NEUT # 5.7 103/ul Normal 1.4-6.5 [facility] Comment on above: Performed By: #### C BC #### [facility] [address] [place] [address] Dr. Nidhi Dawn Neutrophils/100 WBC (Bld) 72.4 % Normal 43.0-75.0 [facility] Comment on above: Performed By: #### C BC #### [facility] [address] [place] [address] Dr. Nidhi Dawn Platelet mean volume (Bld) [Entitic vol] 10.1 fL Normal 9.5-13.5 [facility] Comment on above: Performed By: #### C BC #### [facility] [address] [place] [address] Dr. Nidhi Dawn PLT 174 103/ul Normal 150-450 [facility] Comment on above: Performed By: #### C BC #### [facility] [address] [place] [address] Dr. Nidhi Dawn RBC 3.07 106/ul Critically low 4.20-5.40 [facility] Comment on above: Performed By: #### C BC #### [facility] [address] [place] [address] Dr. Nidhi Dawn WBC 7.8 103/ul Normal 4.0-11.0 [facility] Comment on above: Performed By: #### C BC #### [facility] [address] [place] [address] Dr. Nidhi Dawn PROF CHEM 8 (BAS METB)on Anion gap [Moles/Vol] 11.2 mmol/L Normal [facility] Comment on above: Performed By: #### B MP #### [facility] [address] [place] [address] Dr. Nidhi Dawn Calcium [Mass/Vol] 8.4 mg/dL Critically low 8.5-10.1 [facility] Comment on above: Performed By: #### B MP #### [facility] [address] [place] [address] Dr. Nidhi Dawn Chloride [Moles/Vol] 100 mmol/L Normal 98-107 [facility] Comment on above: Performed By: #### B MP #### [facility] [address] [place] [address] Dr. Nidhi Dawn CO2 [Moles/Vol] 27.4 mmol/L Normal 21.0-32.0 [facility] Comment on above: Performed By: #### B MP #### [facility] [address] [place] [address] Dr. Nidhi Dawn Creatinine [Mass/Vol] 0.56 mg/dL Normal 0.55-1.02 [facility] Comment on above: Performed By: #### B MP #### [facility] [address] [place] [address] Dr. Nidhi Dawn EGFR-AF FAROESE >60 Normal >=60 [facility] Comment on above: Performed By: #### B MP #### [facility] [address] [place] [address] Dr. Nidhi Dawn EGFR-NON AF FAROESE >60 Normal >=60 [facility] Comment on above: Performed By: #### B MP #### [facility] [address] [address] [address] Nidhi Dawn Glucose [Mass/Vol] 113 mg/dL Critically high 74-106 T [facility] Comment on above: Performed By: #### B MP #### [facility] [address] [address] [address] Nidhi Dawn Potassium [Moles/Vol] 3.6 mmol/L Normal 3.5-5.1 [facility] Comment on above: Performed By: #### B MP #### [facility] [address] [place] [address] Dr. Nidhi Dawn Sodium [Moles/Vol] 135 mmol/L Critically low 136-145 Th [facility] Comment on above: Performed By: #### B MP #### [facility] [address] [place] [address] Dr. Nidhi Dawn Urea nitrogen [Mass/Vol] 14.0 mg/dL Normal 7.0-18.0 [facility] Comment on above: Performed By: #### B MP #### [facility] [address] [place] [address] Dr. Nidhi Dawn Urea nitrogen/Creatinine [Mass ratio] 25.0 mg/mg Normal [facility] Comment on above: Performed By: #### B MP #### [facility] [address] [place] [address] Dr. Nidhi Dawn CBC AUTO DIFFon 04-02-2022 BASO # 0.0 103/ul Normal 0.0-0.1 [facility] Comment on above: Performed By: #### C BC #### [facility] [address] [place] [address] Dr. Nidhi Dawn Basophils/100 WBC (Bld) 0.3 % Normal 0.2-2.0 [facility] Comment on above: Performed By: #### C BC #### [facility] [address] [place] [address] Dr. Nidhi Dawn EO # 0.1 103/ul Normal 0.0-0.7 [facility] Comment on above: Performed By: #### C BC #### [facility] [address] [place] [address] Dr. Nidhi Dawn Eosinophils/100 WBC (Bld) 0.8 % Critically low 0.9-7.0 [facility] Comment on above: Performed By: #### C BC #### [facility] [address] [place] [address] Dr. Nidhi Dawn Erythrocyte distribution width (RBC) [Ratio] 13.8 % Normal 11.0-15.0 [facility] Comment on above: Performed By: #### C BC #### [facility] [address] [place] [address] Dr. Nidhi Dawn Hematocrit (Bld) [Volume fraction] 30.1 % Critically low 36.0-48.0 [facility] Comment on above: Performed By: #### C BC #### [facility] [address] [place] [address] Dr. Nidhi Dawn Hemoglobin (Bld) [Mass/Vol] 10.1 g/dL Critically low 12.0-16.0 [facility] Comment on above: Performed By: #### C BC #### [facility] [address] [place] [address] Dr. Nidhi Dawn IG # 0.03 10e3/ul Normal 0.00-0.03 [facility] Comment on above: Performed By: #### C BC #### [facility] [address] [place] [address] Dr. Nidhi Dawn IG % 0.3 % Normal 0.0-0.5 [facility] Comment on above: Performed By: #### C BC #### [facility] [address] [place] [address] Dr. Nidhi Dawn LYMPH # 1.0 103/ul Critically low 1.2-3.8 [facility] Comment on above: Performed By: #### C BC #### [facility] [address] [place] [address] Dr. Nidhi Dawn Lymphocytes/100 WBC (Bld) 10.6 % Critically low 20.5-60.0 [facility] Comment on above: Performed By: #### C BC #### [facility] [address] [place] [address] Dr. Nidhi Dawn MANUAL DIFF REQ NO Normal [facility] Comment on above: Performed By: #### C BC #### [facility] [address] [place] [address] Dr. Nidhi Dawn MCH (RBC) [Entitic mass] 30.7 pg Normal 26.7-34.0 [facility] Comment on above: Performed By: #### C BC #### [facility] [address] [place] [address] Dr. Nidhi Dawn MCHC (RBC) [Mass/Vol] 33.6 g/dL Normal 29.9-35.2 [facility] Comment on above: Performed By: #### C BC #### [facility] [address] [place] [address] Dr. Nidhi Dawn MCV (RBC) [Entitic vol] 91.5 fL Normal 81.0-99.0 [facility] Comment on above: Performed By: #### C BC #### [facility] [address] [place] [address] Dr. Nidhi Dawn MONO # 1.0 103/ul Critically high 0.3-0.8 [facility] Comment on above: Performed By: #### C BC #### [facility] [address] [place] [address] Dr. Nidhi Dawn Monocytes/100 WBC (Bld) 10.3 % Normal 1.7-12.0 [facility] Comment on above: Performed By: #### C BC #### [facility] [address] [place] [address] Dr. Nidhi Dawn NEUT # 7.4 103/ul Critically high 1.4-6.5 [facility] Comment on above: Performed By: #### C BC #### [facility] [address] [place] [address] Dr. Nidhi Dawn Neutrophils/100 WBC (Bld) 77.7 % Critically high 43.0-75.0 [facility] Comment on above: Performed By: #### C BC #### [facility] [address] [place] [address] Dr. Nidhi Dawn Platelet mean volume (Bld) [Entitic vol] 10.0 fL Normal 9.5-13.5 [facility] Comment on above: Performed By: #### C BC #### [facility] [address] [place] [address] Dr. Nidhi Dawn PLT 175 103/ul Normal 150-450 [facility] Comment on above: Performed By: #### C BC #### [facility] [address] [place] [address] Dr. Nidhi Dawn RBC 3.29 106/ul Critically low 4.20-5.40 [facility] Comment on above: Performed By: #### C BC #### [facility] [address] [place] [address] Dr. Nidhi Dawn WBC 9.5 103/ul Normal 4.0-11.0 [facility] Comment on above: Performed By: #### C BC #### [facility] [address] [place] [address] Dr. Nidhi Dawn ER URINE PROFILEon 2 Bilirubin Ql (U) Negative Normal NEGATIVE [facility] Comment on above: Performed By: #### C DONA, CMADM #### [facility] [address] [place] [address] Dr. Nidhi Dawn Clarity (U) CLEAR Normal CLEAR [facility] Comment on above: Performed By: #### C MP, CMADM #### [facility] [address] [place] [address] Dr. Nidhi Dawn Color (U) YELLOW Normal YELLOW [facility] Comment on above: Performed By: #### C DONA, CMADM #### [facility] [address] [place] [address] Dr. Nidhi Dawn ERUMANE A micrscopic examina tion will be performed if indicated. Normal [facility] Comment on above: Performed By: #### C DONA, CMADM #### [facility] [address] [address] [address] Nidhi Dawn Glucose Ql (U) Negative Normal NEGATIVE [facility] Comment on above: Performed By: #### C MP, CMADM #### [facility] [address] [place] [address] Dr. Nidhi Dawn Hemoglobin Ql (U) MODERATE Abnormal NEGATIVE [facility] Comment on above: Performed By: #### C MP, CMADM #### [facility] [address] [address] [address] Nidhi Dawn Ketones Ql (U) TRACE Abnormal NEGATIVE [facility] Comment on above: Performed By: #### C MP, CMADM #### [facility] [address] [place] [address] Dr. Nidhi Dawn LEUKOCYTES MODERATE Abnormal NEGATIVE [facility] Comment on above: Performed By: #### C MP, CMADM #### [facility] [address] [place] [address] Dr. Nidhi Dawn Nitrite Ql (U) Positive Abnormal NEGATIVE [facility] Comment on above: Performed By: #### C MP, CMADM #### [facility] [address] [place] [address] Dr. Nidhi Dawn pH (U) [pH] Abnormal 5-9 [facility] Comment on above: Performed By: #### C MP, CMADM #### [facility] [address] [place] [address] Dr. Nidhi Dawn Protein (U) [Mass/Vol] 100 mg/dL Abnormal NEGAT GRIFFIN/ TRACE [facility] Comment on above: Performed By: #### C MP, CMADM #### [facility] [address] [place] [address] Dr. Nidhi Dawn SPEC GRAVITY <=1.005 Abnormal 1.005-<=1.0 25 [facility] Comment on above: Performed By: #### C MP, CMADM #### [facility] [address] [place] [address] Dr. Nidhi Dawn UR MICRO IND INDICATED Normal [facility] Comment on above: Performed By: #### C MP, CMADM #### [facility] [address] [place] [address] Dr. Nidhi Dawn Urobilinogen Qn (U) 1.0 {Lawrence'U}/dL Normal 0.2 - 1. 0 [facility] Comment on above: Performed By: #### C HELENA CARCAMO #### [facility] [address] [place] [address] Dr. Nidhi Dawn FREE T3on 04-02-2022 FREE T3 1.84 pg/mlL Critically low 2.18-3.98 [facility] Comment on above: Performed By: #### C BC #### [facility] [address] [place] [address] Dr. Nidhi Dawn PROF CHEM 8 (BAS METB)on Anion gap [Moles/Vol] 10.9 mmol/L Normal [facility] Comment on above: Performed By: #### C BC #### [facility] [address] [place] [address] Dr. Nidhi Dawn Calcium [Mass/Vol] 8.6 mg/dL Normal 8.5-10.1 [facility] Comment on above: Performed By: #### C BC #### [facility] [address] [place] [address] Dr. Nidhi Dawn Chloride [Moles/Vol] 102 mmol/L Normal 98-107 [facility] Comment on above: Performed By: #### C BC #### [facility] [address] [place] [address] Dr. Nidhi Dawn CO2 [Moles/Vol] 24.9 mmol/L Normal 21.0-32.0 [facility] Comment on above: Performed By: #### C BC #### [facility] [address] [place] [address] Dr. Nidhi Dawn Creatinine [Mass/Vol] 0.42 mg/dL Critically low 0.55-1.02 [facility] Comment on above: Performed By: #### C BC #### [facility] [address] [place] [address] Dr. Nidhi Dawn EGFR-AF FAROESE >60 Normal >=60 [facility] Comment on above: Performed By: #### C BC #### [facility] [address] [address] [address] Nidhi Dawn EGFR-NON AF FAROESE >60 Normal >=60 [facility] Comment on above: Performed By: #### C BC #### [facility] [address] [address] [address] Nidhi Dawn Glucose [Mass/Vol] 103 mg/dL Normal 74-106 [facility] Comment on above: Performed By: #### C BC #### [facility] [address] [address] [address] Nidhi Dawn Potassium [Moles/Vol] 3.8 mmol/L Normal 3.5-5.1 [facility] Comment on above: Performed By: #### C BC #### [facility] [address] [address] [address] Nidhi Dawn Sodium [Moles/Vol] 134 mmol/L Critically low 136-145 [facility] Comment on above: Performed By: #### C BC #### [facility] [address] [address] [address] Nidhi Dawn Urea nitrogen [Mass/Vol] 14.0 mg/dL Normal 7.0-18.0 [facility] Comment on above: Performed By: #### C BC #### [facility] [address] [address] [address] Nidhi Dawn Urea nitrogen/Creatinine [Mass ratio] 33.3 mg/mg Normal [facility] Comment on above: Performed By: #### C BC #### [facility] [address] [address] [address] Nidhi Dawn URINE MICROSCOPIC ONLYon BACTERIA MODERATE Abnormal NONE SEEN [facility] Comment on above: Performed By: #### C DONA, CMADM #### [facility] [address] [address] [address] Nidhi Dawn Bacteria identified Cx Nom (U) INDICATED Normal [facility] Comment on above: Performed By: #### C MP, CMADM #### [facility] [address] [place] [address] Dr. Nidhi Dawn CAST NONE SEEN Normal NONE SEEN [facility] Comment on above: Performed By: #### C MP, CMADM #### [facility] [address] [place] [address] Dr. Nidhi Dawn Crystals LM Nom (Urine sed) NONE SEEN Normal NONE SEEN [facility] Comment on above: Performed By: #### C MP, CMADM #### [facility] [address] [place] [address] Dr. Nidhi Dawn Epithelial cells LM Ql (Urine sed) RARE Normal NONE SEEN /RARE [facility] Comment on above: Performed By: #### C DONA, CMADM #### [facility] [address] [place] [address] Dr. Nidhi Dawn MUCOUS TRACE Abnormal NONE SEEN [facility] Comment on above: Performed By: #### C DONA, CMADM #### [facility] [address] [place] [address] Dr. Nidhi Dawn RBC 5-10 Abnormal 0-2 [facility] Comment on above: Performed By: #### C DONA, CMADM #### [facility] [address] [place] [address] Dr. Nidhi Dawn WBC 10-20 Abnormal NONE SEEN [facility] Comment on above: Performed By: #### C DONA, CMADM #### [facility] [address] [place] [address] Dr. Nidhi Dawn CBC AUTO DIFFon 04-01-2022 BASO # 0.0 103/ul Normal 0.0-0.1 [facility] Comment on above: Performed By: #### C BC #### [facility] [address] [place] [address] Dr. Nidhi Dawn Basophils/100 WBC (Bld) 0.1 % Critically low 0.2-2.0 [facility] Comment on above: Performed By: #### C BC #### [facility] [address] [place] [address] Dr. Nidhi Dawn EO # 0.0 103/ul Normal 0.0-0.7 [facility] Comment on above: Performed By: #### C BC #### [facility] [address] [place] [address] Dr. Nidhi Dawn Eosinophils/100 WBC (Bld) 0.1 % Critically low 0.9-7.0 [facility] Comment on above: Performed By: #### C BC #### [facility] [address] [place] [address] Dr. Nidhi Dawn Erythrocyte distribution width (RBC) [Ratio] 13.9 % Normal 11.0-15.0 [facility] Comment on above: Performed By: #### C BC #### [facility] [address] [place] [address] Dr. Nidhi Dawn Hematocrit (Bld) [Volume fraction] 31.4 % Critically low 36.0-48.0 [facility] Comment on above: Performed By: #### C BC #### [facility] [address] [place] [address] Dr. Nidhi Dawn Hemoglobin (Bld) [Mass/Vol] 10.3 g/dL Critically low 12.0-16.0 [facility] Comment on above: Performed By: #### C BC #### [facility] [address] [place] [address] Dr. Nidhi Dawn IG # 0.03 10e3/ul Normal 0.00-0.03 [facility] Comment on above: Performed By: #### C BC #### [facility] [address] [place] [address] Dr. Nidhi Dawn IG % 0.3 % Normal 0.0-0.5 [facility] Comment on above: Performed By: #### C BC #### [facility] [address] [place] [address] Dr. Nidhi Dawn LYMPH # 1.3 103/ul Normal 1.2-3.8 [facility] Comment on above: Performed By: #### C BC #### [facility] [address] [place] [address] Dr. Nidhi Dawn Lymphocytes/100 WBC (Bld) 13.5 % Critically low 20.5-60.0 [facility] Comment on above: Performed By: #### C BC #### [facility] [address] [place] [address] Dr. Nidhi Dawn MANUAL DIFF REQ NO Normal [facility] Comment on above: Performed By: #### C BC #### [facility] [address] [place] [address] Dr. Nidhi Dawn MCH (RBC) [Entitic mass] 30.3 pg Normal 26.7-34.0 [facility] Comment on above: Performed By: #### C BC #### [facility] [address] [place] [address] Dr. Nidhi Dawn MCHC (RBC) [Mass/Vol] 32.8 g/dL Normal 29.9-35.2 [facility] Comment on above: Performed By: #### C BC #### [facility] [address] [place] [address] Dr. Nidhi Dawn MCV (RBC) [Entitic vol] 92.4 fL Normal 81.0-99.0 [facility] Comment on above: Performed By: #### C BC #### [facility] [address] [place] [address] Dr. Nidhi Dawn MONO # 1.1 103/ul Critically high 0.3-0.8 [facility] Comment on above: Performed By: #### C BC #### [facility] [address] [place] [address] Dr. Nidhi Dawn Monocytes/100 WBC (Bld) 11.1 % Normal 1.7-12.0 [facility] Comment on above: Performed By: #### C BC #### [facility] [address] [place] [address] Dr. Nidhi Dawn NEUT # 7.4 103/ul Critically high 1.4-6.5 [facility] Comment on above: Performed By: #### C BC #### [facility] [address] [place] [address] Dr. Nidhi Dawn Neutrophils/100 WBC (Bld) 74.9 % Normal 43.0-75.0 [facility] Comment on above: Performed By: #### C BC #### [facility] [address] [place] [address] Dr. Nidhi Dawn Platelet mean volume (Bld) [Entitic vol] 9.9 fL Normal 9.5-13.5 [facility] Comment on above: Performed By: #### C BC #### [facility] [address] [place] [address] Dr. Nidhi Dawn PLT 219 103/ul Normal 150-450 [facility] Comment on above: Performed By: #### C BC #### [facility] [address] [place] [address] Dr. Nidhi Dawn RBC 3.40 106/ul Critically low 4.20-5.40 [facility] Comment on above: Performed By: #### C BC #### [facility] [address] [place] [address] Dr. Nidhi Dawn WBC 9.9 103/ul Normal 4.0-11.0 [facility] Comment on above: Performed By: #### C BC #### [facility] [address] [place] [address] Dr. Nidhi Dawn PROF CHEM 8 (BAS METB)on Anion gap [Moles/Vol] 9.7 mmol/L Normal [facility] Comment on above: Performed By: #### B MP #### [facility] [address] [place] [address] Dr. Nidhi Dawn Calcium [Mass/Vol] 8.5 mg/dL Normal 8.5-10.1 [facility] Comment on above: Performed By: #### B MP #### [facility] [address] [place] [address] Dr. Nidhi Dawn Chloride [Moles/Vol] 102 mmol/L Normal 98-107 [facility] Comment on above: Performed By: #### B MP #### [facility] [address] [place] [address] Dr. Nidhi Dawn CO2 [Moles/Vol] 28.8 mmol/L Normal 21.0-32.0 [facility] Comment on above: Performed By: #### B MP #### [facility] [address] [address] [address] Nidhi Dawn Creatinine [Mass/Vol] 0.54 mg/dL Critically low 0.55-1.02 [facility] Comment on above: Performed By: #### B MP #### [facility] [address] [address] [address] Nidhi Dawn EGFR-AF FAROESE >60 Normal >=60 [facility] Comment on above: Performed By: #### B MP #### [facility] [address] [address] [address] Nidhi Dawn EGFR-NON AF FAROESE >60 Normal >=60 [facility] Comment on above: Performed By: #### B MP #### [facility] [address] [place] [address] Dr. Nidhi Dawn Glucose [Mass/Vol] 108 mg/dL Critically high 74-106 [facility] Comment on above: Performed By: #### B MP #### [facility] [address] [place] [address] Dr. Nidhi Dawn Potassium [Moles/Vol] 3.5 mmol/L Normal 3.5-5.1 [facility] Comment on above: Performed By: #### B MP #### [facility] [address] [place] [address] Dr. Nidhi Dawn Sodium [Moles/Vol] 137 mmol/L Normal 136-145 [facility] Comment on above: Performed By: #### B MP #### [facility] [address] [address] [address] Nidhi Dawn Urea nitrogen [Mass/Vol] 14.0 mg/dL Normal 7.0-18.0 [facility] Comment on above: Performed By: #### B MP #### [facility] [address] [place] [address] Dr. Nidhi Dawn Urea nitrogen/Creatinine [Mass ratio] 25.9 mg/mg Normal [facility] Comment on above: Performed By: #### B MP #### [facility] [address] [place] [address] Dr. Nidhi Dawn CARDIAC CELESTINO ADMITon 09-08-2 022 CK [Catalytic activity/Vol] 60 U/L Normal 26-192 [facility] Comment on above: Performed By: #### C BC #### [facility] [address] [place] [address] Dr. Nidhi Dawn CK.MB [Mass/Vol] 2.29 ng/mL Normal <=3.60 [facility] Comment on above: Performed By: #### C BC #### [facility] [address] [place] [address] Dr. Nidhi Dawn HSTROP 5.8 pg/mL Normal 4.0-51.3 [facility] Comment on above: Result Comment: CUT- OFF POINTS HAVE BEEN ESTABLISHED BASED ON THE FOURTH UNIVERSAL DEFINITIONS OF MYOCARDIAL INFARCTION. THE UPPER REFERENCE LIMIT (URL) OF TROPONIN, DEFINED THE 99TH PERCENTILE OF cTnI DISTRIBUTION IN A REFERENCE POPULATION, HAS BEEN CONFIRMED THE DECISION THRESHOLD FOR OK DIAGNOSIS. Performed By: #### C BC #### [facility] [address] [place] [address] Dr. Nidhi Dawn BOBBY 63 ng/mL Normal 9-82 [facility] Comment on above: Performed By: #### C BC #### [facility] [address] [place] [address] Dr. Nidhi Dawn CBC AUTO DIFFon 03-31-2022 BASO # 0.0 103/ul Normal 0.0-0.1 [facility] Comment on above: Performed By: #### C BC #### [facility] [address] [place] [address] Dr. Nidhi Dawn Basophils/100 WBC (Bld) 0.3 % Normal 0.2-2.0 [facility] Comment on above: Performed By: #### C BC #### [facility] [address] [place] [address] Dr. Nidhi Dawn EO # 0.0 103/ul Normal 0.0-0.7 [facility] Comment on above: Performed By: #### C BC #### [facility] [address] [place] [address] Dr. Nidhi Dawn Eosinophils/100 WBC (Bld) 0.3 % Critically low 0.9-7.0 [facility] Comment on above: Performed By: #### C BC #### [facility] [address] [place] [address] Dr. Nidhi Dawn Erythrocyte distribution width (RBC) [Ratio] 13.8 % Normal 11.0-15.0 [facility] Comment on above: Performed By: #### C BC #### [facility] [address] [place] [address] Dr. Nidhi Dawn Hematocrit (Bld) [Volume fraction] 39.3 % Normal 36.0-48.0 [facility] Comment on above: Performed By: #### C BC #### [facility] [address] [place] [address] Dr. Nidhi Dawn Hemoglobin (Bld) [Mass/Vol] 12.8 g/dL Normal 12.0-16.0 [facility] Comment on above: Performed By: #### C BC #### [facility] [address] [place] [address] Dr. Nidhi Dawn IG # 0.10 10e3/ul Critically high 0.00-0.03 [facility] Comment on above: Performed By: #### C BC #### [facility] [address] [place] [address] Dr. Nidhi Dawn IG % 0.8 % Critically high 0.0-0.5 [facility] Comment on above: Performed By: #### C BC #### [facility] [address] [place] [address] Dr. Nidhi Dwan LYMPH # 1.1 103/ul Critically low 1.2-3.8 [facility] Comment on above: Performed By: #### C BC #### [facility] [address] [place] [address] Dr. Nidhi Dawn Lymphocytes/100 WBC (Bld) 9.3 % Critically low 20.5-60.0 [facility] Comment on above: Performed By: #### C BC #### [facility] [address] [place] [address] Dr. Nidhi Dawn MANUAL DIFF REQ NO Normal [facility] Comment on above: Performed By: #### C BC #### [facility] [address] [address] [address] Nidhi Dawn MCH (RBC) [Entitic mass] 30.0 pg Normal 26.7-34.0 [facility] Comment on above: Performed By: #### C BC #### [facility] [address] [address] [address] Nidhi Dawn MCHC (RBC) [Mass/Vol] 32.6 g/dL Normal 29.9-35.2 [facility] Comment on above: Performed By: #### C BC #### [facility] [address] [place] [address] Dr. Nidhi Dawn MCV (RBC) [Entitic vol] 92.3 fL Normal 81.0-99.0 [facility] Comment on above: Performed By: #### C BC #### [facility] [address] [place] [address] Dr. Nidhi Dawn MONO # 0.8 103/ul Normal 0.3-0.8 [facility] Comment on above: Performed By: #### C BC #### [facility] [address] [place] [address] Dr. Nidhi Dawn Monocytes/100 WBC (Bld) 6.6 % Normal 1.7-12.0 [facility] Comment on above: Performed By: #### C BC #### [facility] [address] [place] [address] Dr. Nidhi Dawn NEUT # 9.8 103/ul Critically high 1.4-6.5 [facility] Comment on above: Performed By: #### C BC #### [facility] [address] [place] [address] Dr. Nidhi Dawn Neutrophils/100 WBC (Bld) 82.7 % Critically high 43.0-75.0 [facility] Comment on above: Performed By: #### C BC #### [facility] [address] [place] [address] Dr. Nidhi Dawn Platelet mean volume (Bld) [Entitic vol] 9.3 fL Critically low 9.5-13.5 [facility] Comment on above: Performed By: #### C BC #### [facility] [address] [address] [address] Nidhi Dawn PLT 284 103/ul Normal 150-450 [facility] Comment on above: Performed By: #### C BC #### [facility] [address] [address] [address] Nidhi Dawn RBC 4.26 106/ul Normal 4.20-5.40 [facility] Comment on above: Performed By: #### C BC #### [facility] [address] [address] [address] Nidhi Dawn WBC 11.8 103/ul Critically high 4.0-11.0 [facility] Comment on above: Performed By: #### C BC #### [facility] [address] [address] [address] CHEST W CONon [...] by: TAYLOR PENA Date: 2022-03-31 14:36 Normal [facility] CT CSPINE WO CONon 2 CT CSPINE WO CON EXAMINATION: CT CSPI [...] by: TAYLOR PENA Date: 2022-03-31 14:48 Normal [facility] CT HEAD WO CONon 03-31-2022 CT HEAD [...] by: TAYLOR PENA Date: 2022-03-31 14:11 Normal [facility] CT LSPINE WO CONon 2 CT LSPINE [...] TAYLOR PENA Date: 2022-03-31 14:27 Normal [facility] Covid-19 PCR (CVDTB)on SARS-CoV-2 (COVID-19) RNA COLLINS+probe Ql (Unsp spec) Not detected Normal NOT DETECTED [facility] Comment on above: Result Comment: When diagnostic [...] for this test is supported by the [place] of [employer] and Human Service's declaration that [...] used). Performed By: #### C VDTB #### [facility] [address] [place] [address] Dr. Nidhi Dawn PROF 14(COMP METB)on 022 Albumin [Mass/Vol] 3.7 g/dL Normal 3.4-5.0 [facility] Comment on above: Performed By: #### C BC #### [facility] [address] [place] [address] Dr. Nidhi Dawn Albumin/Globulin [Mass ratio] 1.2 {ratio} Normal [facility] Comment on above: Performed By: #### C BC #### [facility] [address] [place] [address] Dr. Nidhi Dawn ALP [Catalytic activity/Vol] 55 U/L Normal 46-116 [facility] Comment on above: Performed By: #### C BC #### [facility] [address] [place] [address] Dr. Nidhi Dawn ALT [Catalytic activity/Vol] 24 U/L Normal 14-59 [facility] Comment on above: Performed By: #### C BC #### [facility] [address] [place] [address] Dr. Nidhi Dawn Anion gap [Moles/Vol] 9.2 mmol/L Normal [facility] Comment on above: Performed By: #### C BC #### [facility] [address] [place] [address] Dr. Nidhi Dawn AST [Catalytic activity/Vol] 19 U/L Normal 15-37 [facility] Comment on above: Performed By: #### C BC #### [facility] [address] [place] [address] Dr. Nidhi Dawn Bilirubin [Mass/Vol] 0.5 mg/dL Normal 0.2-1.0 [facility] Comment on above: Performed By: #### C BC #### [facility] [address] [place] [address] Dr. Nidhi Dawn Calcium [Mass/Vol] 9.1 mg/dL Normal 8.5-10.1 [facility] Comment on above: Performed By: #### C BC #### [facility] [address] [place] [address] Dr. Nidhi Dawn Chloride [Moles/Vol] 103 mmol/L Normal 98-107 [facility] Comment on above: Performed By: #### C BC #### [facility] [address] [place] [address] Dr. Nidhi Dawn CO2 [Moles/Vol] 28.0 mmol/L Normal 21.0-32.0 [facility] Comment on above: Performed By: #### C BC #### [facility] [address] [place] [address] Dr. Nidhi Dawn Creatinine [Mass/Vol] 0.56 mg/dL Normal 0.55-1.02 [facility] Comment on above: Performed By: #### C BC #### [facility] [address] [address] [address] Nidhi Dawn EGFR-AF FAROESE >60 Normal >=60 [facility] Comment on above: Performed By: #### C BC #### [facility] [address] [address] [address] Nidhi Dawn EGFR-NON AF FAROESE >60 Normal >=60 [facility] Comment on above: Performed By: #### C BC #### [facility] [address] [address] [address] Nidhi Dawn Globulin (S) [Mass/Vol] 3.2 g/dL Normal [facility] Comment on above: Performed By: #### C BC #### [facility] [address] [place] [address] Dr. Nidhi Dawn Glucose [Mass/Vol] 140 mg/dL Critically high 74-106 [facility] Comment on above: Performed By: #### C BC #### [facility] [address] [address] [address] Nidhi Dawn Potassium [Moles/Vol] 3.2 mmol/L Critically low 3.5-5.1 [facility] Comment on above: Performed By: #### C BC #### [facility] [address] [address] [address] Nidhi Dawn Protein [Mass/Vol] 6.9 g/dL Normal 6.4-8.2 [facility] Comment on above: Performed By: #### C BC #### [facility] [facility] [address] [address] [address] Nidhi Dawn Sodium [Moles/Vol] 137 mmol/L Normal 136-145 [facility] Comment on above: Performed By: #### C BC #### [facility] [address] [address] [address] Nidhi Dawn Urea nitrogen [Mass/Vol] 13.0 mg/dL Normal 7.0-18.0 [facility] Comment on above: Performed By: #### C BC #### [facility] [address] [address] [address] Nidhi Dawn Urea nitrogen/Creatinine [Mass ratio] 23.2 mg/mg Normal [facility] Comment on above: Performed By: #### C BC #### [facility] [address] [place] [address] Dr. Nidhi Dawn PROTIMEon 03-31-2022 INR Coag (PPP) [Relative time] 1.01 {INR} Normal [facility] Comment on above: Performed By: #### C BC #### [facility] [address] [place] [address] Dr. Nidhi Dawn INR GUIDELINES SEE BELOW Normal [facility] Comment on above: Result Comment: BASSEM RED INR: 2.0 - 3.0 CONDITIONS NOT LISTED BELOW 2.5 - 3.5 FOR PROSTHETIC HEART VALVE REPLACEMENT 2.5 - 3.5 RECURRENT THROMBOSIS Performed By: #### C BC #### [facility] [address] [place] [address] Dr. Nidhi Dawn PT Coag (PPP) [Time] 10.9 s Normal 9.0-11.6 [facility] Comment on above: Performed By: #### C BC #### [facility] [address] [place] [address] Dr. Nidhi Dawn PTTon 03-31-2022 aPTT Coag (Bld) [Time] 25.7 s Normal 22.3-36.2 [facility] Comment on above: Performed By: #### C BC #### [facility] [address] [place] [address] Dr. Nidhi Dawn TSHon 03-31-2022 TSH 3.763 uIU/mL Critically high 0.358-3.740 [facility] Comment on above: Performed By: #### C BC #### [facility] [address] [place] [address] Dr. Nidhi Dawn XR HIP RT 2 [...] by: AVEL BUENO Date: 2022-03-31 14:33 Normal [facility] XR HIP RT 2 3V W PELVISon [...] by: KANDIS KENNY Date: 2021-12-14 21:[address] [facility] [address] PELVIS WO CONon 2 CT [...] by: ISRAEL JUÁREZ Date: 2021-12-13 18:51 Normal [facility] Vital Signs Date Time Vital Sign Value Performing Clinician Facility 10-09-2023 11:45-0400 Body height 149.9 cm Ashley Mistryillo CLOUD SUBJECT MATTER EXPERT-MANAGER BUSINESS PLANNING Work Phone: [facility] 10-09-2023 11:45-0400 Body mass index (BMI) [Ratio] 18.46 kg/m2 Ashley Olvera CLOUD SUBJECT MATTER EXPERT-MANAGER BUSINESS PLANNING Work Phone: [facility] 10-09-2023 11:45-0400 Body temperature 97.3 [degF] Ashley Olvera CLOUD SUBJECT MATTER EXPERT-MANAGER BUSINESS PLANNING Work Phone: [facility] 10-09-2023 11:45-0400 Body weight 41.46 kg Ashley Olvera CLOUD SUBJECT MATTER EXPERT-MANAGER BUSINESS PLANNING Work Phone: [facility] 10-09-2023 11:45-0400 Diastolic blood pressure 60 mm[Hg] Ashleyemelia Olvera CLOUD SUBJECT MATTER EXPERT-MANAGER BUSINESS PLANNING Work Phone: [facility] 10-09-2023 11:45-0400 Heart rate 70 /min Ashleyselina Mistryillo CLOUD SUBJECT MATTER EXPERT-MANAGER BUSINESS PLANNING Work Phone: [facility] 10-09-2023 11:45-0400 Respiratory rate 22 /min Ashley Mistryillo CLOUD SUBJECT MATTER EXPERT-MANAGER BUSINESS PLANNING Work Phone: [facility] 10-09-2023 11:45-0400 SaO2% (BldA) [Mass fraction] 100 % Ashley Mistryillo CLOUD SUBJECT MATTER EXPERT-MANAGER BUSINESS PLANNING Work Phone: [facility] 10-09-2023 11:45-0400 Systolic blood pressure 128 mm[Hg] Ashley Olvera CLOUD SUBJECT MATTER EXPERT-MANAGER BUSINESS PLANNING Work Phone: [facility] [employer] [facility] 09-27-2023 15:42-0500 Body height 149.9 cm Ashley Olvera APRN-SARAH Work Phone: [facility] [employer] [facility] 09-27-2023 15:42-0500 Body mass index (BMI) [Ratio] 19.79 kg/m2 Ashley Olvera APRN-SARAH Work Phone: [facility] [employer] [facility] 09-27-2023 15:42-0500 Body temperature 98.01 [degF] Ashley Olvera APRN-SARAH Work Phone: [facility] [employer] [facility] 09-27-2023 15:42-0500 Body weight 44.45 kg Ashley Olvera APRN-SARAH Work Phone: [facility] [employer] [facility] 09-27-2023 15:42-0500 Diastolic blood pressure 80 mm[Hg] Ashley Olvera APRN-SARAH Work Phone: [facility] [employer] [facility] 09-27-2023 15:42-0500 Heart rate 59 /min Ashley Olvera APRN-SARAH Work Phone: [facility] [employer] [facility] 09-27-2023 15:42-0500 Respiratory rate 18 /min Ashley Olvera APRN-SARAH Work Phone: [facility] [employer] [facility] 09-27-2023 15:42-0500 SaO2% (BldA) [Mass fraction] 93 % Ashley Olvera APRN-SARAH Work Phone: [facility] [employer] [facility] 09-27-2023 15:42-0500 Systolic blood pressure 122 mm[Hg] Ashley Olvera APRN-MANAGER BUSINESS PLANNING Work Phone: [facility] [employer] [facility] 10-03-2022 16:00-0400 Body temperature 97.6 [degF] COUNTY AGENT-C Ashley Olvera Work Phone: [facility] 10-03-2022 16:00-0400 Diastolic blood pressure 79 mm[Hg] COUNTY AGENT-C Ashley Olvera Work Phone: [facility] 10-03-2022 16:00-0400 Heart rate 77 /min COUNTY AGENT-C Ashley Olvera Work Phone: [facility] 10-03-2022 16:00-0400 Respiratory rate 16 /min COUNTY AGENT-C Ashley Olvera Work Phone: [facility] 10-03-2022 16:00-0400 SaO2% (BldA) [Mass fraction] 100 % COUNTY AGENT-C Ashley Olvera Work Phone: [facility] 10-03-2022 16:00-0400 Systolic blood pressure 156 mm[Hg] COUNTY AGENT-C Ashley Olvera Work Phone: [facility] 10-02-2022 20:00-0400 Inhaled oxygen flow rate 2 L/min COUNTY AGENT-C Ashley Olvera Work Phone: [facility] 09-29-2022 06:00-0500 Body weight 49 kg COUNTY AGENT-C Ashley Olvera Work Phone: [facility] 09-28-2022 16:10-0500 Body height 147.32 cm COUNTY AGENT-C Ashley Olvera Work Phone: [facility] 09-28-2022 16:10-0500 Body mass index (BMI) [Ratio] 18.6 kg/m2 COUNTY AGENT-C Ashley Olvera Work Phone: [facility] 12-13-2021 16:30-0400 Body height 152.4 cm Rylie Galvan Other [employer] Other 12-13-2021 16:30-0400 Body mass index (BMI) [Ratio] 19.33 kg/m2 Rylie Galvan Other [employer] Other 05-23-2022 16:30-0400 Body temperature 98 [degF] Rylie Galvan Other [employer] Other 12-13-2021 16:30-0400 Body weight 44.91 kg Rylie Galvan Other [employer] Other 12-13-2021 16:30-0400 Diastolic blood pressure 83 mm[Hg] Rylie Galvan Other [employer] Other 12-13-2021 16:30-0400 Respiratory rate 18 /min Rylie Galvan Other [employer] Other 12-13-2021 16:30-0400 SaO2% (BldA) [Mass fraction] 97 % Rylie Galvan Other [employer] Other 12-13-2021 16:30-0400 Systolic blood pressure 130 mm[Hg] Rylie Galvan Other [employer] Other Encounters Encounter Date Encounter Type Care Provider Facility Start: 10-17-2023 Orders Only Ashley ann CLOUD SUBJECT MATTER EXPERT-MANAGER BUSINESS PLANNING Work Phone: [facility] - [facility] Comment on above: Arthritis, multiple joint involvement (Primary Dx); Benign essential HTN Start: 10-09-2023 End: 10-09-2023 [facility] Comment on above: Arthritis, multiple joint involvement Start: 10-09-2023 End: 10-09-2023 Transitional care manage srvc 7 day discharge Ashley Olvera CLOUD SUBJECT MATTER EXPERT-MANAGER BUSINESS PLANNING Work Phone: [facility] - [facility] Comment on above: Pneumonia of left lo wer lobe due to infectious organism (Primary Dx); Benign essential HTN; Arthritis, multiple joint involvement; Rash and nonspecific skin eruption Start: 09-27-2023 End: 09-27-2023 ambulatory [facility] Start: 09-27-2023 End: 09-27-2023 Office outpatient visit 15 minutes Ashley Olvera CLOUD SUBJECT MATTER EXPERT-MANAGER BUSINESS PLANNING Work Phone: [facility] - [facility] Comment on above: Rash and nonspecific skin eruption (Primary Dx); 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 ([facility]); Current moderate episode of major depressive disorder without prior episode ([facility]); Malignant neoplasm of colon, unspecified part of colon ([facility]) Start: 07-13-2023 End: 07-13-2023 ambulatory [facility] Start: 07-13-2023 Encounter for genera l adult medical examination without abnormal findings [facility] Start: 10-25-2022 End: 10-25-2022 ambulatory Leighton Valente Other [employer] Other Start: 10-25-2022 Telephone encounter Leighton Valente [facility] Start: 10-14-2022 End: 10-14-2022 ambulatory ASHLEY OLVERA Facility:[facility] Start: 09-28-2022 End: 10-03-2022 Evaluation and management of inpatient Leighton Oledimple Facility:[facility] Start: 09-28-2022 End: 10-03-2022 Evaluation and management of inpatient COUNTY AGENT-C Ashley Olvera Work Phone: [facility] Work Phone: Start: 09-27-2022 End: 09-28-2022 ambulatory JACIEL DIAB . Facility:[facility] Start: 05-02-2022 End: 05-02-2022 ambulatory ADELE NIYA . Facility:[facility] Start: 04-13-2022 Patient encounter procedure Storm Russell APRN.ROLLER SKATE ASSEMBLER Work Phone: [facility] Start: 04-13-2022 Progress Note Storm GARCIA RN.ROLLER SKATE ASSEMBLER Work Phone: [facility] Start: 04-08-2022 Patient encounter procedure Storm Russell APRN.ROLLER SKATE ASSEMBLER Work Phone: [facility] Start: 04-08-2022 Progress Note Storm GARCIA RN.ROLLER SKATE ASSEMBLER Work Phone: [facility] Start: 04-05-2022 Patient encounter procedure Debra Alvaradon Work Phone: [facility] Start: 04-05-2022 Progress Note Itrdoris Alvaradon Work Phone: [employer] Start: 03-31-2022 End: 04-04-2022 Evaluation and management of inpatient DR GAB FONSECA . Facility: Start: 12-13-2021 End: 12-13-[address] BONIFACIO LEMOS . [facility] [employer] Other Start: 12-13-2021 Office outpatient vi sit 15 minutes Rylie Galvan [facility] Procedures Date Procedure Procedure Detail Performing Clinician Start: 10-09-2023 Adult depression screening assessment Ashley Olvera CLOUD SUBJECT MATTER EXPERT-MANAGER BUSINESS PLANNING Work Phone: Start: 09-27-2023 Follow-up visit Follow-up ASHLEY OLVERA Start: 09-27-2023 Adult depression screening assessment Ashley Olvera CLOUD SUBJECT MATTER EXPERT-MANAGER BUSINESS PLANNING Work Phone: Start: 10-03-2022 Plain X-ray of left hip COUNTY AGENT-C Ashley Olvera Work Phone: Start: 09-28-2022 Plain X-ray of left hip COUNTY AGENT-C Ashley Olvera Work Phone: Start: 09-28-2022 Open reduction with internal fixation COUNTY AGENT-C Ashley Olvera Work Phone: Start: 09-28-2022 Plain X-ray of left femur COUNTY AGENT-C sAhley Olvera Work Phone: Start: 09-28-2022 Plain X-ray of left hip COUNTY AGENT-C Ashley Olvera Work Phone: Plan of Treatment Date Care Activity Detail Author Start: 06-14-2030 DTaP,Tdap and Td Vaccines (3 - Td or Tdap) DTaP,Tdap and Td Vaccines (3 - Td or Tdap) [facility] Start: 10-08-2024 Adult BMI Screening Adult BMI Screening [facility] Start: 10-08-2024 Depression Screening Depression Screening [facility] Start: 10-08-2024 Fall Risk Screening Fall Risk Screening [facility] Start: 10-08-2024 Tobacco Screening Tobacco Screening [facility] Start: 09-27-2024 Tobacco Screening Tobacco Screening [facility] Start: 09-26-2024 Adult BMI Screening Adult BMI Screening [facility] Start: 09-26-2024 Depression Screening Depression Screening [facility] Start: 09-26-2024 Fall Risk Screening Fall Risk Screening [facility] Start: 07-13-2024 Medicare Annual Wellness Visit Medicare Annual Wellness Visit [facility] Start: 03-20-2024 End: 03-20-2024 Patient encounter procedure 03/20/2024 11:20 AM EDT Office Visit [facility] Internal Medicine - Family Medicine [address] [place] [address] Ashley Olvera, CLOUD SUBJECT MATTER EXPERT-MANAGER BUSINESS PLANNING [address] [place] [address] [facility] Internal Medicine - Family [facility] Start: 01-09-2024 End: 01-09-2024 Patient encounter procedure 01/09/2024 10:40 AM EDT Office Visit [facility] Internal Medicine - Family Medicine [address] [place] [address] Ashley Olvera, CLOUD SUBJECT MATTER EXPERT-MANAGER BUSINESS PLANNING [address] [place] [address] [facility] Internal Medicine Family [facility] Start: 11-01-2023 Adult BMI Follow Up Plan Adult BMI Follow Up Plan [facility] Start: 03-24-2023 COVID-19 Vaccine (2022- season) COVID-19 Vaccine (2022-24 season) [facility] Start: 10-03-2022 [facility] Start: 09-28-2022 [facility] Start: 09-28-2022 Consultation [facility] Start: 09-28-2022 Hospital admission [facility] Start: 03-24-2022 Influenza vaccination INFLUENZA (#1) [facility] Start: 07-24-2021 ADVANCE DIRECTIVE DISCUSSION ADVANCE DIRECTIVE DISCUSSION [facility] Start: 04-09-2019 DIABETES SCREEN DIABETES SCREEN [facility] Start: 2000 BONE DENSITY BONE DENSITY [facility] Start: 2000 PNEUMOCOCCAL: 65+ (1 - PCV) PNEUMOCOCCAL: 65+ (1 - PCV) [facility] Start: 1985 SHINGRIX VACCINE (1 of 2) SHINGRIX VACCINE (1 of 2) [facility] Start: 1954 Administration of varicella zoster vaccine Zoster (Shingles) Vaccine (1 of 2) [facility] Start: 1954 Urine microalbumin profile DTAP,TDAP,TD (1 - Tdap) [facility] Start: 03-10-1936 COVID-19 VACCINE (#1) COVID-19 VACCINE (#1) [facility] 25-hydroxyvitamin D2 [Mass/volume] in Serum or Plasma [facility] 25-hydroxyvitamin D3 [Mass/volume] in Serum or Plasma [facility] 25-Hydroxyvitamin D3+25-Hydroxyvitamin D2 [Mass/volume] in Serum or Plasma [facility] Patient referral [facility] Work Phone: XR Hip - left 2 Views [facility] Immunizations Immunization Date Immunization Notes Care Provider Fa cility 04-11-2023 Influenza Vaccine, Quadrivalent, Adjuvanted Ashley Olvera CLOUD SUBJECT MATTER EXPERT-MANAGER BUSINESS PLANNING Work Phone: [facility] 05-09-2022 influenza, seasonal, injectable Ashley Olvera CLOUD SUBJECT MATTER EXPERT-MANAGER BUSINESS PLANNING Work Phone: [facility] 05-09-2022 pneumococcal polysaccharide vaccine, 23 valent Ashley Olvera CLOUD SUBJECT MATTER EXPERT-MANAGER BUSINESS PLANNING Work Phone: [facility] 04-21-2022 Influenza Vaccine, Quadrivalent, Adjuvanted Ashley Olvera CLOUD SUBJECT MATTER EXPERT-MANAGER BUSINESS PLANNING Work Phone: [facility] 12-06-2021 COVID-19, mRNA, LNP- S, PF, 30mcg/0.3mL Dose Ashley Olvera CLOUD SUBJECT MATTER EXPERT-MANAGER BUSINESS PLANNING Work Phone: [facility] 11-01-2021 COVID-19, mRNA, LNP- S, PF, 30mcg/0.3mL Dose Ashley Olvera CLOUD SUBJECT MATTER EXPERT-MANAGER BUSINESS PLANNING Work Phone: [facility] 05-17-2021 Influenza, High-dose , Quadrivalent Ashley Olvera CLOUD SUBJECT MATTER EXPERT-MANAGER BUSINESS PLANNING Work Phone: [facility] 06-14-2020 diphtheria, tetanus toxoids and pertussis vaccine Ashley Olvera CLOUD SUBJECT MATTER EXPERT-MANAGER BUSINESS PLANNING Work Phone: [facility] 05-12-2020 Influenza, High-dose , Quadrivalent Ashley Olvera CLOUD SUBJECT MATTER EXPERT-MANAGER BUSINESS PLANNING Work Phone: [facility] 05-07-2019 influenza, high dose seasonal, preservative-free Ashley Olvera CLOUD SUBJECT MATTER EXPERT-MANAGER BUSINESS PLANNING Work Phone: [facility] 04-17-2019 pneumococcal polysaccharide vaccine, 23 valent Ashley Olvera CLOUD SUBJECT MATTER EXPERT-MANAGER BUSINESS PLANNING Work Phone: [facility] 05-07-2018 influenza, high dose seasonal, preservative-free Ashley Olvera CLOUD SUBJECT MATTER EXPERT-MANAGER BUSINESS PLANNING Work Phone: [facility] 05-09-2017 influenza, injectabl e, quadrivalent, preservative free Ashley Olvera CLOUD SUBJECT MATTER EXPERT-MANAGER BUSINESS PLANNING Work Phone: [facility] 01-05-2017 pneumococcal conjuga te vaccine, 13 valent Ashley Olvera CLOUD SUBJECT MATTER EXPERT-MANAGER BUSINESS PLANNING Work Phone: [facility] 01-05-2017 tetanus toxoid, redu cristino diphtheria toxoid, and acellular pertussis vaccine, adsorbed Ashley Olvera CLOUD SUBJECT MATTER EXPERT-MANAGER BUSINESS PLANNING Work Phone: [facility] 05-22-2015 influenza, injectabl e, quadrivalent, preservative free Ashley Olvera CLOUD SUBJECT MATTER EXPERT-MANAGER BUSINESS PLANNING Work Phone: [facility] 04-21-2014 influenza, seasonal, injectable, preservative free Ashley Olvera CLOUD SUBJECT MATTER EXPERT-MANAGER BUSINESS PLANNING Work Phone: [facility] 04-17-2013 influenza virus vacc ine, whole virus Ashley Olvera CLOUD SUBJECT MATTER EXPERT-MANAGER BUSINESS PLANNING Work Phone: [facility] 06-28-2012 pneumococcal vaccine , unspecified formulation Ashley Olvera CLOUD SUBJECT MATTER EXPERT-MANAGER BUSINESS PLANNING Work Phone: [facility] 04-24-2012 influenza virus vacc ine, whole virus Ashley Olvera CLOUD SUBJECT MATTER EXPERT-MANAGER BUSINESS PLANNING Work Phone: [facility] 04-20-2011 influenza virus vacc ine, whole virus Ashley Olvera CLOUD SUBJECT MATTER EXPERT-MANAGER BUSINESS PLANNING Work Phone: [facility] 05-05-2010 influenza virus vacc ine, whole virus Ashley Olvera CLOUD SUBJECT MATTER EXPERT-MANAGER BUSINESS PLANNING Work Phone: [facility] 04-29-2009 influenza virus vacc ine, whole virus Ashley Olvera CLOUD SUBJECT MATTER EXPERT-MANAGER BUSINESS PLANNING Work Phone: [facility] 05-09-2007 influenza virus vacc ine, whole virus Ashley Olvera CLOUD SUBJECT MATTER EXPERT-MANAGER BUSINESS PLANNING Work Phone: [facility] Payers Date Payer Category Payer Medicare [id number] 2022 Self-pay 2016 Medicare [id number] 1959 Medicare [id number] 2.1 [id number] 1959 Private Health Insurance [id number] 1935 Unknown [id number] [id number] 1935 Unknown [id number] 2.16.84 [id number] 1935 Unknown [id number] 2.16.84 [id number] 1935 Unknown [id number] 2.16.84 [id number] 1935 Unknown [id number] 2.16.84 [id number] 1935 Unknown [id number] 2.16.8 [id number] 1935 Unknown [id number] 2.16.8 [id number] 1935 Unknown [id number] 2.16.84 [id number] Unknown [id number] [id number] Social History Date Type Detail Facility Start: 08-04-2020 End: 09-28-2023 Sex Assigned At [facility] Start: 05-28-2014 End: 09-21-2022 Tobacco smoking status NHIS Never smoked tobacco [facility] Start: 10-25-2016 End: 10-09-2023 Alcohol intake Current drinker of alcohol (finding) [facility] Start: 1935 Sex Assigned At Not on file [facility] Start: 09-29-2022 Tobacco smoking stat us ALIS Unknown if ever smoked [facility] Start: 1935 Sex Assigned At Female F [facility] Start: 09-21-2022 Tobacco use and exposure Smokeless tobacco non-user [facility] Start: 08-04-2020 End: 09-28-2023 History of Social function [facility] Adolescent depressio n screening assessment 0 [facility] Goals Date Patient Goal Desired Activity /State Functional Status Date Assessment Result Facility 09-28-2022 Functional status Patient Not at Baseline [facility] Work Phone: Mental Status Date Assessment Result Facility 09-28-2022 Cognitive function Cognitive Sta tus Patient Not at Baseline [facility] Work Phone: Clinical Notes 12-13-2021 to 10-09-2023 Telephone Encounter - Justus Gastelum CMA - 10/09/2023 1:17 PM EDTTelephone Encounter - Justus Gastelum CMA - 10/09/2023 1:17 PM EDTGAGE Guerrero - 10/09/2023 11:20 AM EDT Note Date & Type Note Facility 10-09-[address] called and [facility] that [facility]. [phone] documented in this encounter [facility] 10-09-2023 Telephone encounter Note [address] called and would [facility] that was [facility]. [phone] [facility] 10-09-2023 History of Present illness Narrative Images from the original note were not included. [place] [address] Patient ID: Annamaria Garcia is a 88 y.o. female. Transition of Care Diagnosis on Discharge: Hypertensive urgency, Left lower lobe penumonia Name of Discharging Facility: [facility] Date of Facility Discharge: October 02, 2023 Date of Interactive Contact and Name of Appliance Repairer: Medication Reconciliation Completed: Yes Medication Reconciliation Questions/Concerns: *Follow Up Appointments with Providers: Primary: GAGE Guerrero Specialty: Dermatology November 06 Specialty: Specialty: Review of Pending Lab/Diagnostic Tests and Plan for Completion: NA Assessment and Support of Treatment Regimen Adherence and Medication Management: Medications administered by health care staff at assisted living Education Provided by ACN to Support Self-Management, Independent Living and ADLs: Resides in assisted living. Staff assist with needs. Communication with Home Health Agencies and Other Services Utilized/Needed by the Patient: [facility] Home care / PT *Additional Questions/Concerns Requiring PCP Follow-Up: Pain control for arthritis SUBJECTIVE: Patient ID: Annamaria Garcia is a 88 y.o. female. Chief Complaint Patient presents with Hypertension [facility] follow up 09/29-10/01 Hypertension This is a new problem. The current episode started in the past 7 days. The problem is controlled. Pertinent negatives include no chest pain, palpitations or shortness of breath. There are no associated agents to hypertension. Risk factors for coronary artery disease include post-menopausal state and sedentary lifestyle. Past treatments include calcium channel blockers. The current treatment provides significant improvement. There are no compliance problems. The following portions of the patient's history were reviewed and updated as appropriate: allergies, current medications, past family history, past medical history, past social history, past surgical history and problem list. REVIEW OF SYSTEMS: Review of Systems Reason unable to perform ROS: Nephew answers most questions due to patient dementia status. Constitutional: Negative for chills and fever. HENT: Negative. Eyes: Negative for visual disturbance. Respiratory: Negative for chest tightness and shortness of breath. Cardiovascular: Negative for chest pain and palpitations. Gastrointestinal: Negative. Endocrine: Negative. Genitourinary: Negative for menstrual problem and pelvic pain. Musculoskeletal: Positive for arthralgias and back pain. Skin: Positive for rash. Allergic/Immunologic: Negative. Neurological: Negative for syncope and facial asymmetry. Hematological: Does not bruise/bleed easily. Psychiatric/Behavioral: Negative. PHYSICAL EXAMINATION: Vitals: 10/09/23 1145 BP: 128/60 BP Site: Left Arm BP Postition: Sitting Pulse: 70 Resp: 22 Temp: 36.3 C (97.3 F) TempSrc: Oral SpO2: 100% Weight: 41.5 kg (91 lb 6.4 oz) Height: 149.9 cm (4' 11 ) Physical [...] Tenderness: There is no abdominal tenderness. Musculoskeletal: Cervical back: Normal range of motion and neck supple. Lumbar back: Tenderness and bony tenderness present. Decreased range of motion. Lymphadenopathy: Cervical: No cervical adenopathy. Skin: General: Skin is warm and dry. Capillary Refill: Capillary refill takes less than 2 seconds. Neurological: Mental Status: She is alert. Mental status is at baseline. Deep Tendon Reflexes: Reflexes are normal and symmetric. Psychiatric: Mood and Affect: Mood normal. ASSESSMENT/PLAN: Annamaria was seen today for hypertension. Diagnoses and all orders for this visit: Pneumonia of left lower lobe due to infectious organism Benign essential HTN - amLODIPine (NORVASC) 5 mg tablet; take 1 tablet by mouth once daily Arthritis, multiple joint involvement - traMADoL (ULTRAM) 50 mg tablet; Take 1 tablet (50 mg total) by mouth every 8 (eight) hours as needed for pain. - methylPREDNISolone acetate (DEPO-MEDROL) injection 40 mg - meloxicam (MOBIC) 7.5 mg tablet; Take 1 tablet (7.5 mg total) by mouth in the morning. Rash and nonspecific skin eruption - methylPREDNISolone acetate (DEPO-MEDROL) injection 40 mg Pneumonia left lower lobe Has finished course of Augmentin. No shortness of breath. Lungs are clear. Oxygen sats 100% 2. HTN Reorder amlodipine 5 mg oral daily BP is better controlled, 128/60 3. Rash and nonspecific skin eruption Facial rash is now resolved. Continue using Aquaphor to face as directed. Rash remains unchanged to lower legs. Has been on two Medrol dose packs. Currently using Clobetasol. Dermatology appointment scheduled for November 06 Depo Medrol 40 mg IM administered in office today 4. Chronic pain Arthritis pain Reported she was unable to walk previous days due to pain. Stayed in her room. Has tried Tylenol and Aleve with limited results. Previous history of bilateral pubic rami fracture and left humerus. Start Mobic 7.5 mg oral daily Tramadol 50 mg oral every 8 hours PRN breakthrough pain The OARRS/MAPPS database was reviewed today and found to be appropriate. No indication of medication diversion, or non compliance. Total time spent was 40 minutes: Preparing to see the patient (e.g., review of tests) Obtaining and/or reviewing separately obtained history Performing a medically appropriate examination and/or evaluation Counseling and educating the patient/family/caregiver Ordering medications, tests, or procedures Follow up in 3 months or sooner GAGE Guerrero 10/09/23 1307 documented in this encounter [employer] 09-27-2023 History of Present illness Narrative Images from the original note were not included. [address] [place] [address] SUBJECTIVE: Patient ID: Annamaria Garcia is a 88 y.o. female. Chief Complaint Patient presents with ER follow up. Rash on lower legs and face Is accompanied by her POA nephew today. Nephew states she has a rash for over one month on lower legs. Rash on face started approximately 2 weeks ago. Was started on Medrol dose pack approximately 3 weeks ago. Rash did improve about 50% but returned worse. Family took her to [facility] ER last week for evaluation. 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 Documented By: Mimi Artis APRN 10/02/22 1241 Signed By: <Electronically signed by KHURRAM Artis> 10/02/22 1244 <Electronically signed by Gordon You MD> 10/02/22 0300 [facility] Work Phone: 1(631) 286-767703-12-2023 Progress note Author Gordon You [facility] October 02, 2022 9:16pm Note Date/Time October 01, 2022 12: 12pm [facility] [address] [place], [place] [id number] Hospitalist Progress Note Signed Patient: Annamaria Garcia MR#: [id number] : 1935 Acct:[id number] Age/Sex: 87 / F Adm Date: 3 Loc: 4N Room: [address] [place] [address] Type: ADM IN Attending Dr: Gordon You [...] the plan of care and confirmed the MANAGER BUSINESS PLANNING's written note. Documented By: Mimi Artis APRN 10/01/22 1207 Signed By: <Electronically signed by KHURRAM Artis> 10/01/22 1213 <Electronically signed by Gordon You MD> 10/02/22 2116 [facility] Work Phone: 1(416) 121-184203-12-2023 Progress note Author Leighton Valente [facility] October 02, 2022 12:49pm Note Date/Time October 02, 2022 12: 43pm [facility] [address] [place] [address] Orthopedic Progress Note Signed Patient: Annamaria Garcia MR#: [id number] : 1935 Acct:[id number] Age/Sex: 87 / F Adm Date: 3 Loc: Room: [address] [place] [address] Type: ADM IN Attending Dr: Gordon You [...] % (Auto) 72.4 Lymph % (Auto) 12.7 Stark % (Auto) 13.6 Eos % (Auto) 1.0 Baso % (Auto) 0.3 Nucleat RBC Rel Count 0.0 Neut # (Auto) 5.3 Lymph # (Auto) 0.9 L Stark # (Auto) 1.0 H Eos # (Auto) [...] <Electronically signed by MD Leighton Valente> 10/02/22 1248 [facility] Work Phone: 1([phone]) 628-834703-10-2023 Progress note Author Yani Cyr [facility] September 30, 2022 4:42pm Note Date/Time September 30, 2022 12: 30pm [facility] [address] [place] [address] Hospitalist Progress Note Signed Patient: Annamaria Garcia MR#: [id number] : 1935 Acct:[id number] Age/Sex: 87 / F Adm Date: 3 Loc: 4N Room: [address] [place] [address] Type: ADM IN Attending Dr: Yani Cyr [...] <Electronically signed by Yani Cyr MD> 09/30/22 1641 [facility] Work Phone: 1([phone]) 277-456503-09-2023 Progress note Author Leighton Valente [facility] September 29, 2022 12:30pm Note Date/Time September 29, 2022 7:53 am [facility] [address] [place] [address] Orthopedic Progress Note Signed Patient: Annamaria Garcia MR#: [id number] : 1935 Acct:[id number] Age/Sex: 87 / F Adm Date: 3 Loc: 4N Room: [address] [place] [address] Type: ADM IN Attending Dr: Adama Kothari [...] signed by MD Leighton Valente> 09/29/22 1230 [facility] Work Phone: [phone]) 898-537003-09-2023 Consult note Author Leighton Valente [facility] September 29, 2022 7:45am Note Date/Time September 29, 2022 7:39 am [facility] [address] [place] [address] Orthopedic Consult Note Signed Patient: Annamaria Garcia MR#: [id number] : 1935 Acct:[id number] Age/Sex: 87 / F Adm Date: 3 Loc: Room: [address] [place] [address] Type: ADM IN Attending Dr: Adama Kothari MD Copies to: MD Leighton Paul MD Valerie J Castillo NP-C~ History of Present Illness HPI Consult date: 09/29/2022 Requesting provider: Adama Kothari MD History of present illness: Patient is an 87-year-old female who sustained a fall with complaints of left hip pain.. [facility]. [facility] demonstrated displaced left intertrochanteric hip fracture. Review of Systems Review of Systems All other systems reviewed & are negative unless noted below or in HPI PMFSH Vaccinated for COVID-19?: Yes Medical History (Updated 09/29/22 @ 05:21 by Cary Zabala RN) Anemia Dementia Frequent falls HTN (hypertension) Surgical History (Updated 09/28/22 @ 04:36 by Zoya aWtkins RN) No pertinent past surgical history Social [...] % (Auto) 87.9, Lymph % (Auto) 4.7, Stark % (Auto) 7.4, Eos % (Auto)0.0, Baso % (Auto) 0.0, Nucleat RBC Rel Count 0.1, Neut # (Auto) 10.7 H, Lymph #(Auto) 0.6 L, Stark # (Auto) 0.9 H, Eos # (Auto) [...] signed by MD Leighton Valente> 09/29/22 0745 [facility] Work Phone: 1([phone]) 169-220703-08-2023 History and physical note Author Juliet Green [facility] September 28, 2022 9:41pm Note Date/Time September 28, 2022 4:41 am [facility] [address] [place] [address] Hospitalist H&P Signed Patient: Annamaria Garcia MR#: [id number] : 1935 Acct:[id number] Age/Sex: 87 / F Adm Date: 3 Loc: 4N Room: 6H1488-6 Type: ADM IN Attending Dr: Adama Kothari MD Copies to: MD Juliet Paul MD Valerie J Castillo NP-C~ HPI DATE OF EXAMINATION: 09/28/22 CHIEF COMPLAINT: hip fx HISTORY OF PRESENT ILLNESS: 87 years old female sustained what it seems mechanical fall, without any prodromal symptoms at home, where she lives alone, and presented to [facility] emergency room where she was diagnosed with [...] Previous records in the computer system reviewed [facility] Vaccinated for COVID-19?: Yes Surgical History (Updated [...] signed by Juliet Green MD> 09/28/22 2141 [facility] Work Phone: 1(625) 278-649603-08-2023 Progress note [facility] September 28, 2022 7:19pm Note Date/Time September 28, 2022 10:0 4am [facility] [address] [place] [address] Hospitalist Progress Note Signed Patient: Annamaria Garcia MR#: [id number] : 1935 Acct:[id number] Age/Sex: 87 / F Adm Date: 3 Loc: 4N Room: 1H8512-9 Type: ADM IN Attending Dr: Adama Kothari [...] Shortness Of Breath Calcium Carbonate 1 tab 03/09/23 09:00 Calcium Carbonate/Vitamin D3 500 Mg/200 Unit [...] Meq Kcl IV 09/28/23 05:29 75 mls/hr .[id number] XIAO Administration Lactated Ringer's 1,000 mls @ [...] Full code Documented By: Mimi Artis APRN 09/28/2299 Signed By: <Electronically signed by KHURRAM Artis> 09/28/22 1004 <Electronically signed by Adama Kothari MD> 09/28/22 1919 [facility] Work Phone: [phone]) 333-993203-08-2023 Hospital Discharge instructions Additional Instructions [facility] Physician: - PT/OT to eval and treat [...] Mepilex border foam to Coccyx for protection. [facility] Work Phone: [phone]) [phone] NoteHNO ID: [id number] Author: Storm Russell APRN.ROLLER SKATE ASSEMBLER Service: ? Author Type: Nurse Specialist Type: Progress Notes Filed: 04/21/2022 7:19 AM Note Text: [facility] NOTE NAME: STANISLAW GARCIA NO.: [id number] DATE OF SERVICE: 04/18/2022 [facility] DATE OF : 1935 REASON FOR VISIT: The patient is a resident of [facility]. This is a skilled visit [...] no supplement. DICTATED BY: SARAH Bliss/Bernice JOB# [id number] cc:[facility]09-21-2022 NoteHNO ID: [id number] Author: Storm Russell APRN.ROLLER SKATE ASSEMBLER Service: ? Author Type: Nurse Specialist Type: Progress Notes Filed: 04/14/2022 3:59 PM Note Text: [facility] NOTE NAME: STANISLAW GARCAI NO.: [id number] DATE OF SERVICE: 04/13/2022 [facility] DATE OF : 1935 REASON FOR VISIT: The patient is a resident of [facility]. This is a skilled visit [...] supportive care. DICTATED BY: SARAH Bliss/Bernice JOB# [id number] cc:[facility]09-21-2022 History of Present illness Narrative* Storm Russell APRN.ROLLER SKATE ASSEMBLER - 04/13/2022 12:00 AM EDT [facility] NOTE NAME: GARCIA ANNAMARIACHELI NO.: [id number] DATE OF SERVICE: 04/13/2022 [facility] DATE OF : 1935 REASON FOR VISIT: The patient is a resident of [facility]. This is a skilled visit [...] safety, provide supportive care. DICTATED BY: SARAH Bliss/Berncie JOB# [id number] cc:[facility] documented in this encounterC[facility]-2022 NoteHNO ID: [id number] Author: Storm Russell APRN.ROLLER SKATE ASSEMBLER Service: ? Author Type: Nurse Specialist Type: Progress Notes Filed: 04/11/2022 7:39 PM Note Text: [facility] NOTE NAME: STANISLAW GARCIA NO.: [id number] DATE OF SERVICE: 04/08/2022 [facility] DATE OF : 1935 REASON FOR VISIT: The patient is a resident of [facility]. This is a skilled visit for pelvic [...] normal range. DICTATED BY: SARAH Bliss/Bernice JOB# [id number] cc:[facility]-16-2022 History of Present illness Narrative* Storm Russell APRN.ROLLER SKATE ASSEMBLER - 04/08/2022 12:00 AM EDT [facility] NOTE NAME: ANNAMARIA GARCIACHELI NO.: [id number] DATE OF SERVICE: 04/08/2022 [facility] DATE OF : 1935 REASON FOR VISIT: The patient is a resident of [facility]. This is a skilled visit for pelvic [...] normal range. DICTATED BY: SARAH Bliss/Bernice JOB# [id number] cc:[facility] documented in this encounterCleveland Clinic [facility]09-13-2022 NoteHNO ID: [id number] Author: Debra Vásquez Service: ? Author Type: Physician Type: Progress Notes Filed: 04/06/2022 5:49 PM Note Text: [facility] NOTE NAME: ANNAMARIA GARCIARAMONSANDRO NO.: [id number] DATE OF SERVICE: 04/05/2022 [facility] DATE OF : 1935 NEW PATIENT HISTORY AND PHYSICAL HISTORY OF PRESENT ILLNESS: Patient is an 86-year-old female, who is admitted to us from [facility] with a diagnoses of acute nondisplaced fracture [...] she knew that she was somewhere is [place]. She is aware of having had a [...] hospital. DICTATED BY: MD ROCHELLE Silverio/Bernice JOB# [id number] cc:[facility]-13-2022 History of Present illness Narrative* Debra Vásquez - 04/05/2022 12:00 AM EDT [facility] NOTE NAME: ANNAMARIA GARCIARAMONSANDRO NO.: [id number] DATE OF SERVICE: 04/05/2022 [facility] DATE OF : 1935 NEW PATIENT HISTORY AND PHYSICAL HISTORY OF PRESENT ILLNESS: Patient is an 86-year-old female, who is admitted to us from [facility] with a diagnoses of acute nondisplaced fracture [...] she knew that she was somewhere is [place]. She is aware of having had a [...] hospital. DICTATED BY: MD ROCHELLE Silverio/Bernice JOB# [id number] cc:[facility] documented in this encounterCleveland Clinic [facility]05-23-2022 Evaluation note* Encounter Date Diagnosis Assessment Notes [...] above plan, states she will go to [facility] for further evaluation. 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 ([facility]) Current moderate episode of major depressive disorder without prior episode ([facility]) Malignant neoplasm of colon, unspecified part of colon ([facility]) documented in this encounter [facility] SystemEvaluation note* Diagnosis Pneumonia of left lower lobe due to infectious organism- Primary Benign essential HTN Arthritis, multiple joint involvement Unspecified arthropathy, multiple sites Rash and nonspecific skin eruption Rash and other nonspecific skin eruption [facility]* Diagnosis Arthritis, multiple joint involvement Unspecified arthropathy, multiple sites documented in this encounter [facility] SystemEvaluation note* Diagnosis Arthritis, multiple joint involvement- Primary Unspecified arthropathy, multiple sites Benign essential HTN documented in this encounter [facility] Center[facility] general Narrative - Reported* Type Description Date Surgical History CATARACT REMOVAL Surgical History CHOLECYSTECTOMY [facility] [place] Other Instructions* Attachments The following attachments cannot be sent through Care Everywhere. * Skin Rash (Somali) documented in this encounterProDay[facility] SystemInstructions* Attachments The following attachments cannot be sent through Care Everywhere. * Joint Pain (Somali) documented in this encounterSamaritan North Health CenterInstructionsNot on file documented in this encounterSamaritan North Health CenterInstructionsNot on file documented in this encounterSamaritan North Health CenterReason for referral (narrative)* Consultation (Routine) - Pending Review Specialty Diagnoses / Procedures Referred By Christiane layton Referred To Contact Dermatology Diagnoses Rash and nonspecific skin eruption Ashley Olvera APRN-CNP [address] [place] [address] Shawanda Cintron MD [address] , [address] [address] Referral ID Status Reason Start Date Expiration Date Visits Requested Visits Authorized [id number] Pending Review Specialty Services Required 09/27/2023 09/26/2024 1 1 [facility] Advance Directives Documents on File Type Date Recorded Patient Director Of Safety Expl anation Advance Directive(s) 04/04/2016 12:27 PM Advance Directive Response Recorded Date/ Time Advance Directives No September 28 2:49am Documents on File Type Date Recorded Patient Director Of Safety Expl anation Advance Directive 04/11/2023 3:23 PM POA Advance Directive 03/08/2023 11:14 AM guar dianship 03/08/2023 Documents on File Type Date Recorded Patient Director Of Safety Expl anation Advance Directive 04/11/2023 3:23 PM POA Advance Directive 03/08/2023 11:14 AM guar dianship 03/08/2023 Summary Purpose Family History No Family History Records FoundNo Family History Records FoundNo Family History Records FoundNo Family History Records Found Chief Complaint and Reason for Visit Chief Complaint L femoral head fract ure Reason for Visit Fall Hip fracture, left Reason for Referral Specialty Diagnoses / Procedures Referred By Contac t Referred To Contact Diagnoses Arthritis, multiple joint involvement Ashley Olvera, CLOUD SUBJECT MATTER EXPERT-MANAGER BUSINESS PLANNING [address] [place] [address] Referral ID Status Reason Start Date Expiration Date V isits Requested Visits Authorized [id number] Pending Review 1 1 Additional Source Comments REASON FOR VISIT (unrecogniz ed section and content) Reason Comments ER follow up. Rash on lower legs and fac e Reason Comments Hypertension Tbh follow up 09/29-0 10/01 Source Comments (unrecognize d section and content) In the event this informatio n is protected by the Federal Confidentiality of Alcohol and Drug Abuse Patient Records regulations: The Federal rules restrict any use of the information to criminally investigate or prosecute any alcohol or drug abuse patient.[facility] RehabilitationIn the event this information is protected by the Federal Confidentiality of Alcohol and Drug Abuse Patient Records regulations: The Federal rules restrict any use of the information to criminally investigate or prosecute any alcohol or drug abuse patient.[facility] RehabilitationIn the event this information is protected by the Federal Confidentiality of Alcohol and Drug Abuse Patient Records regulations: The Federal rules restrict any use of the information to criminally investigate or prosecute any alcohol or drug abuse patient.[facility] Care Teams (unrecognized sec tion and content) Shellfish Bed Worker Relationship Specialty Start Date End Date Richard He PCP - General Family Practice 05/08/14 Shellfish Bed Worker Relationship Specialty Start Date End Date Richard He PCP - General Family Medicine 05/08/14 Team Status: Active Member Role Status Dates Ashley Olvera NP-Mino Primary Care Provider Active Team Status: Inactive Member Role Status Dates Ashley Olvera NP-Mino Primary Care Provider Active Juliet Green MD Admit Provider Active Leighton Valente MD Other Provider Active Galen Escobar MD Other Provider Active Lilian Van MD Other Provider Active Silvestre Saunders DO Other Provider Active Bulmaro Moses II, MD Other Provider Active Yani Cyr MD Attending Provider Active Shellfish Bed Worker Relationship Specialty Start Date End Date Ashley Olvera APRN-MANAGER BUSINESS PLANNING [address], [place] [address] PCP - General Family Medicine 07/23/19 Shellfish Bed Worker Relationship Specialty Start Date End Date Ashley Olvera APRN-MANAGER BUSINESS PLANNING [address] [place] [address] PCP - General Family Medicine 07/23/19 Shellfish Bed Worker Relationship Specialty Start Date End Date Olvera Ashley Hawkins APRN-SARAH [address] [place] [address] PCP - General Family Medicine 07/23/19 INFORMATION SOURCE (unrecogn ized section and content) DATE CREATED AUTHOR 04/25/2022 [facility] DATE CREATED AUTHOR AUTHOR'S ORGANIZ ATION 10/17/2022 [facility] DATE CREATED AUTHOR AUTHOR'S ORGANIZ ATION 10/17/2022 [facility] DATE CREATED AUTHOR AUTHOR'S ORGANIZ ATION 10/10/2023 [facility] FOR RECORDS PERTAINING TO PATIENTS WHO ARE [...] BE BASED ON THE PRIMARY CLINICAL RECORDS. [facility] [employer] provides no warranty or guarantee of the accuracy or completeness of information in this document.
== END 2023-10-18 09:44 | disposition home or self-care (01) ==
LOC: EC 09:43
PROVIDERS: PCP Nurse Practitioner; Visit Provider Podiatrist Foot & Ankle Surgery
DX: M79.672 Pain in left foot (principal)
CPT/HCPCS: 73630

== ENCOUNTER 2023-11-13 23:59 | Emergency (ER) | payer MEDICARE, SELFPAY ==
[2023-11-14] VITALS: BP 180/91; PULSE 73; TEMP 36.8; O2SAT 99; BMI 24.0
--- OUTSIDE RECORDS SUMMARY | 2023-11-14 00:09 | XMS_ITS | CCD ---
Author Organization [facility] Care Team Providers [employer] Name Role Phone Rylie Galvan Unavailable Richard He Primary Care Provider UnavailRichard Loomis Primary Care Provider UnavailRichard Loomis Primary Care Provider UnavailJULES Chaves Primary Care Provider MD Juliet Green Admit Provider MD Leighton Valente Other Provider MD Galen Escobar Other Provider MD Lilian Van Other Provider [phone] DO Silvestre Saunders Other Provider MD uBlmaro Moses II Other Provider [phone] MD Yani Cyr Attending Provider ADLEE KATZ Admitting Unavailable DR TAYLOR PENA Consulting [...] Care Unavailable DR GAB LEE Consulting Unavailable RAYMUNDO ., DR DE GUZMAN Admitting Unavailable JANETTE, DR MARISSA Orosco Consulting Unavailnico PENA, DR TAYLOR Grimes Consulting Unavailable BRIGHT, DR LENI Steele Consulting Unavailable ERICKA ., FAHAD HAMILTON Consulting UnavailAVEL Maciel Consulting Unavailable WADE ASHLEY Primary Care Unavailable JACKIE, DR ONEIL Consulting Unavailable JACKIE, DR ONEIL Admitting Unavailable JACKIE, DR ONEIL Attending Unavailable Leighton Valente Consulting Unavailable Juliet Green Admitting Unavailable Yani Cyr Attending Unavailable Clifton Olveraerie Shruthi Primary Care Unavailable Galen Escobar Consulting Unavailable Lilian Van Consulting Unavailable Silvestre Saunders Consulting Unavailable Bulmaro Moses II Consulting UnavailLeighton Anglin Unavailable Wade RUBBER VULCANIZING MACHINE OPERATOR-Ashley SMITH Primary Care Provid er ASHLEY OLVERA Attending Unavailable ASHLEY OLVERA Referring Unavailable OLVERAITA HOYOSE Shruthi Primary Care Unavailable ASHLEY OLVERA Attending Unavailable CLIFTON OLVERAERIE Shruthi Referring Unavailable OLVERACLIFTON HOYOSERIE Shruthi Primary Care Unavailable ASHLEY OLVERA Attending Unavailable OLVERACLIFTON HOYOSERIE Shruthi Referring Unavailable OLVERACLIFTON HOYOSERIE Shruthi Primary Care Unavailable ASHLEY OLVERA Attending Unavailable CLIFTON OLVERAERIE Shruthi Referring Unavailable OLVERA, ASHLEY J Primary Care Unavailable ITALO DONOHUE Attending Unavailable Allergies Allergy Classification Reported Allergen(s) Allergy Type Date of Onset Reaction(s) Facility (6 sources) Tetanus Vaccines And Toxoid; Translations: [TETANUS VACCINES AND TOXOID] Propensity to adverse reactions to drug 01-11-2017 [facility] Medications Current Medications Medication Drug Class(es) Dates [...] as needed. amLODIPine 5 mg oral tablet (6 sources) Dihydropyridine Calcium Channel Evelia Start: 4 take 1 tablet by mouth once daily [...] Discontinued (Reorder) aspirin 325 mg oral tablet (7 sources) Platelet Aggregation Inhibitor, Nonsteroidal Anti-inflammatory Drug Start: 10-03-2022 take 325 mg by mouth once daily Aspirin Active 325 MG PO Daily 0 October 03, 2022 12:00am End: 10-25-2023 take 1 tablet by mouth in the morning aspirin 81 mg Take 1 tablet (81 mg total) by mouth in the morning. 0 10/25/2023 Discontinued (Therapy completed) calcium carb/vit D3/minerals (CALTRATE 600+D PLUS MINERALS ORAL) (1 source) calcium carb/vit D3/minerals (CALTRATE 600+D PLUS MINERALS ORAL) Caltrate 600+D Plus 0 Active calcium carbonate 1500 mg / cholecalciferol 800 unt chewable tablet (5 sources) Vitamin D Start: 3 calcium carbonate-vitamin D3 (CALTRATE 600 PLUS D) 600 mg (1,500 mg)-800 units tablet,chewable Indications: Age-related osteoporosis with current pathological fracture with routine healing, subsequent encounter Chew 1 tablet and swallow in the morning and 1 tablet in the evening. Chew with meals. 60 tablet 6 10/31/2022 Active Calcium Citrate-Vitamin D3 (1 source) Start: 3 take 1 tablet by mouth once daily Calcium Citrate-Vitamin D3 Active 1 TAB PO Daily September 28, 2022 1:00am Citracal +D3 250-107-500 MG-MG-UNIT (2 sources) Citracal +D3 250-107-500 MG-MG-UNIT Orally Active clobetasol propionate 0.5 mg/ml topical cream (5 sources) Corticosteroid Start: 4 clobetasoL (TEMOVATE) 0.05 % cream apply to affected area once daily for 2 weeks 0 09/22/2023 Active ferrous sulfate 325 mg delayed release oral tablet (8 sources) Start: 3 take 1 tablet by mouth in the [...] day Active lidocaine 0.018 mg/mg medicated patch (2 sources) Antiarrhythmic, Amide Local Anesthetic Start: 10-17-2023 lidocaine 1.8 % adhesive patch,medicated Indications: Arthritis, multiple joint involvement Apply 1 patch topically See Admin Instructions. On for 12 hours off for 12 hours. 30 patch 11 10/17/2023 Active lutein 20 mg oral tablet (5 sources) take 1 capsule by mouth once daily Lutein 20 MG 1 capsule with a meal Orally Once a day Active LUTEIN ORAL Take by mouth. 0 Active take 1 capsule by mo [facility] every twenty-four hours Lutein 20 MG 1 capsule with a meal Orall y Once a day Active Comment on above: Take by mouth. meloxicam 7.5 mg oral tablet (8 sources) Nonsteroidal Anti-inflammatory Drug Start: 4 End: 4 take 1 tablet by mouth in the morning meloxicam (MOBIC) 7.5 mg tablet Indications: Arthritis, multiple joint involvement Take 1 tablet (7.5 mg total) by mouth in the morning. 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 30 tablet 11 07/13/2023 Active traMADol hydrochloride 50 mg oral tablet (6 sources) Opioid Agonist Start: 10-02-2023 End: 10-09-2023 take 1 tablet by mouth every eight hours as needed for pain traMADoL (ULTRAM) 50 mg tablet Indications: Arthritis, multiple joint involvement Take 1 tablet (50 mg total) by mouth every 8 (eight) hours as needed for pain. 30 tablet 0 10/09/2023 Active vitamin b12 1 mg sublingual tablet (5 sources) Vitamin B12 Start: 11-15-2021 take 1 [...] tablet 1 03/10/2023 10/09/2023 Discontinued (Therapy completed) cholecalciferol 0.01 mg oral capsule (1 source) Vitamin D End: cholecalciferol, vitamin D3, (VITAMIN D3) 10 mcg (400 unit) capsule Vitamin D3 0 10/25/2023 Discontinued (Therapy completed) ibandronic acid 150 mg [...] Comment on above: Take 1 capsule by [facility] twice daily. Take 1 capsule with breakfast [...] on above: Take 1 tablet by senia every 4 hours as needed. simvastatin 20 mg oral tablet (5 sources) HMG-CoA Reductase Inhibitor Start: 05-16-20 14 simvastatin (ZOCOR) 20 mg tablet Suprep Bowel Prep - (2 sources) Start: 01-27-20 16 Suprep Bowel Prep - 1 Orally Daily for 1 day(s) Jan, Not-Taking Problems Active Problems Problem Classification Problem Date Documented Date Episodic/Chronic Administrative/socia l admission (2 sources) Reduced mobility; Translations: [Other reduced mobility] Onset: 10-25-2023 10-25-2023 Episodic Cancer of colon (16 sources) Malignant tumor of colon; Translations: [Malignant neoplasm of colon, unspecified] Onset: 04-04-2016 04-04-2016 Chronic Cancer of colon (5 sources) History of malignant neoplasm of colon; Translations: [Personal history of other malignant neoplasm of large intestine] 05-12-2020 Episodic Deficiency and other anemia (2 sources) Iron deficiency anemia; Translations: [Iron deficiency anemia, unspecified] Episodic Deficiency and other anemia (4 sources) Anemia, unspecified; Translations: [ANEMIA UNSPECIFIED] Onset: 10-14-2022 Episodic Delirium, dementia, and amnestic and other cognitive disorders (12 sources) Senile dementia; Translations: [Alzheimer's disease with [...] and hyponatremia] Onset: 05-12-2022 Episodic Mood disorders (7 sources) Moderate major depression, single episode; Translations: [Major depressive disorder, single episode, moderate] Onset: 07-13-2023 09-27-2023 Chronic Nutritional deficiencies (5 sources) Vitamin D deficiency; Translations: [Vitamin D deficiency, unspecified] Onset: 08-12-2019 08-12-2019 Chronic Osteoporosis (5 sources) Osteoporosis; Translations: [Age-related osteoporosis without current pathological fracture] 06-07-2017 Chronic Other acquired deformities (5 sources) Kyphosis of thoracic spine; Translations: [Unspecified kyphosis, thoracic region] 10-10-2022 Chronic Other aftercare (1 source) Other terminal operations 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; Translations: [OTH STOCKHOLDER CURRENT DRUG THERAPY] Onset: 09-29-2022 Episodic Other nervous system disorders (5 sources) Cognitive deficit in communication skills; Translations: [Cognitive communication deficit] Onset: 10-03-2022 01-03-2023 Chronic Other non-traumatic joint disorders (4 sources) Arthropathy of multiple joints; Translations: [Arthropathy, unspecified] 10-09-2023 Chronic Other non-traumatic joint disorders (1 source) Arthropathy, unspecified; Translations: [Arthropathy, unspecified] Onset: 10-09-2023 Chronic Other non-traumatic joint disorders (3 sources) Pain in left hip; Translations: [PAIN IN LEFT HIP] Onset: 09-27-2022 Episodic Other skin disorders (2 sources) Eruption; Translations: [Rash and other nonspecific skin eruption] 09-27-2023 Episodic Other skin disorders (1 source) Rash and other nonspecific skin eruption; Translations: [Rash and other nonspecific skin eruption] Onset: 09-27-2023 Episodic Pathological fracture (2 sources) History of osteoporotic fracture; Translations: [Personal history of (healed) osteoporosis fracture] Onset: 10-25-2023 10-25-2023 Episodic Pneumonia (except that caused by tuberculosis or sexually transmitted disease) (1 source) Infective pneumonia; Translations: [Pneumonia, unspecified organism] 10-09-2023 Episodic Retinal detachments; defects; vascular occlusion; and retinopathy (5 sources) Degenerative disorder of macula ; Translations: [Unspecified macular degeneration] 01-05-2017 Chronic Spondylosis; intervertebral disc disorders; other back problems (2 sources) Other intervertebral disc degeneration, lumbar region; Translations: [Other cervical disc degeneration, unspecified cervical region] Onset: 09-29-2022 Chronic Spondylosis; intervertebral disc disorders; other back problems (6 sources) Neck pain; Translations: [Cervicalgia] Onset: 02-20-2023 02-20-2023 Episodic Thyroid disorders (6 sources) Hypothyroidism, unspecified; Translations: [Thyroid nodule] Onset: [...] Other Problems Problem Classification Problem Date Documented Date Episodic/Chronic Bacterial infection; unspecified site (2 sources) Proteus (mirabilis) (morganii) as the cause of diseases classified elsewhere; Translations: [Unspecified Escherichia coli [E. coli] as the cause of diseases classified elsewhere] Onset: 05-12-2022 Episodic Deficiency and other anemia (1 source) Iron deficiency anemia, unspecified; Translations: [IRON DEFICIENCY ANEMIA UNSPECIFIED] Onset: 05-12-2022 Episodic Deficiency and other anemia (1 source) Other iron deficiency anemias; Translations: [Other iron deficiency anemias] Onset: 07-13-2023 Episodic E Codes: Place of occurrence (1 source) Unspecified place in unspecified non-institutional (private) residence as the place of occurrence of the external cause Onset: 12-13-2021 Resolved: 12-13-2021 Episodic Fracture of neck of femur (hip) (9 sources) Fracture of bone of hip region; Translations: [Fracture of unspecified part of neck of left femur, initial encounter for closed fracture] Onset: 09-28-2022 09-28-2022 Episodic Mood disorders (5 sources) Mood disorders Onset: 09-27-2023 Resolved: 10-25-2023 09-27-2023 Nonspecific chest pain (1 source) Other chest pain; Translations: [OTHER CHEST PAIN] Onset: 05-12-2022 Episodic Nutritional deficiencies (6 sources) Cobalamin deficiency; Translations: [Deficiency of other [...] RIGHT HIP] Onset: 12-13-2021 Resolved: 12-13-2021 Episodic Other screening for suspected conditions (not mental disorders or infectious disease) (1 source) Encounter for screening for cardiovascular disorders; Translations: [Encounter for screening for cardiovascular disorders] Onset: 07-13-2023 Episodic Screening and history of mental health and substance abuse codes (1 source) Personal history of nicotine dependence; Translations: [PERSONAL HISTORY OF NICOTINE DEPEND] Onset: 12-14-2021 Episodic Superficial injury; contusion (1 source) Contusion of right hip, initial encounter; Translations: [CONTUSION RIGHT HIP INITIAL ENC] Onset: 12-14-2021 Episodic Unclassified (5 sources) Onset: 11-30-2022 11-30-2022 Urinary tract infections (1 source) Urinary tract infection, site not specified; Translations: [UTI SITE NOT SPECIFIED] Onset: 05-12-2022 Episodic Results Test Name Value Interpretation Reference Range Facility CBC AUTO DIFFon 10-14-2022 BASO # 0.0 103/ul Normal 0.0-0.1 [facility] Comment on above: Performed By: #### C MP, CMADM #### [facility] [address] [place] [address] Dr. Nidhi Dawn Basophils/100 WBC (Bld) 0.3 % Normal 0.2-2.0 [facility] Comment on above: Performed By: #### C MP, CMADM #### [facility] [address] [place] [address] Dr. Nidhi Dawn EO # 0.1 103/ul Normal 0.0-0.7 [facility] Comment on above: Performed By: #### C MP, CMADM #### [facility] [address] [place] [address] Dr. Nidhi Dawn Eosinophils/100 WBC (Bld) 1.2 % Normal 0.9-7.0 [facility] Comment on above: Performed By: #### C MP, CMADM #### [facility] [address] [place] [address] Dr. Nidhi Dawn Erythrocyte distribution width (RBC) [Ratio] 15.7 % Critically high 11.0-15.0 [facility] Comment on above: Performed By: #### C MP, CMADM #### [facility] [address] [place] [address] Dr. Nidhi Dawn Hematocrit (Bld) [Volume fraction] 28.5 % Critically low 36.0-48.0 [facility] Comment on above: Performed By: #### C MP, CMADM #### [facility] [address] [place] [address] Dr. Nidhi Dawn Hemoglobin (Bld) [Mass/Vol] 8.9 g/dL Critically low 12.0-16.0 [facility] Comment on above: Performed By: #### C MP, CMADM #### [facility] [address] [place] [address] Dr. Nidhi Dawn IG # 0.04 10e3/ul Critically high 0.00-0.03 [facility] Comment on above: Performed By: #### C DONA, CMADM #### [facility] [address] [place] [address] Dr. Nidhi Dawn IG % 0.7 % Critically high 0.0-0.5 [facility] Comment on above: Performed By: #### C DONA, CMADM #### [facility] [address] [place] [address] Dr. Nidhi Dawn LYMPH # 0.9 103/ul Critically low 1.2-3.8 [facility] Comment on above: Performed By: #### C DONA, LEONCIODM #### [facility] [address] [place] [address] Dr. Nidhi Dawn Lymphocytes/100 WBC (Bld) 15.6 % Critically low 20.5-60.0 [facility] Comment on above: Performed By: #### C DONA, LEONCIODM #### [facility] [address] [place] [address] Dr. Nidhi Dawn MANUAL DIFF REQ NO Normal [facility] Comment on above: Performed By: #### C DONA, LEONCIODM #### [facility] [address] [place] [address] Dr. Nidhi Dawn MCH (RBC) [Entitic mass] 30.8 pg Normal 26.7-34.0 [facility] Comment on above: Performed By: #### C DONA, LEONCIODM #### [facility] [address] [place] [address] Dr. Nidih Dawn MCHC (RBC) [Mass/Vol] 31.2 g/dL Normal 29.9-35.2 [facility] Comment on above: Performed By: #### C DONA, CMADM #### [facility] [address] [place] [address] Dr. Nidhi Dawn MCV (RBC) [Entitic vol] 98.6 fL Normal 81.0-99.0 [facility] Comment on above: Performed By: #### C DONA, CMADM #### [facility] [address] [place] [address] Dr. Nidhi Dawn MONO # 0.7 103/ul Normal 0.3-0.8 [facility] Comment on above: Performed By: #### C HELENA CARCAMO #### [facility] [address] [place] [address] Dr. Nidhi Dawn Monocytes/100 WBC (Bld) 11.1 % Normal 1.7-12.0 [facility] Comment on above: Performed By: #### C LEONCIO CARCAMODM #### [facility] [address] [place] [address] Dr. Nidhi Dawn NEUT # 4.2 103/ul Normal 1.4-6.5 [facility] Comment on above: Performed By: #### C HELENA CARCAMO #### [facility] [address] [place] [address] Dr. Nidhi Dawn Neutrophils/100 WBC (Bld) 71.1 % Normal 43.0-75.0 [facility] Comment on above: Performed By: #### C HELENA CARCAMO #### [facility] [address] [place] [address] Dr. Nidhi Dawn Platelet mean volume (Bld) [Entitic vol] 8.5 fL Critically low 9.5-13.5 [facility] Comment on above: Performed By: #### C HELENA CARCAMO #### [facility] [address] [place] [address] Dr. Nidhi Dawn PLT 614 103/ul Critically high 150-450 [facility] Comment on above: Performed By: #### C HELENA CARCAMO #### [facility] [address] [place] [address] Dr. Nidhi Dawn RBC 2.89 106/ul Critically low 4.20-5.40 [facility] Comment on above: Performed By: #### C HELENA CARCAMO #### [facility] [address] [place] [address] Dr. Nidhi Dawn WBC 5.8 103/ul Normal 4.0-11.0 [facility] Comment on above: Performed By: #### C HELENA CARCAMO #### [facility] [address] [address] [address] Nidhi Dawn Basic Metabolic Panelon 09-21 Anion gap [Moles/Vol] 8.2 mmol/L Normal 6.0-15.0 [facility] Comment on above: Performed By: #### F ER, FE and TIBC #### [facility] [address] [place] [address] [place] Calcium [Mass/Vol] 9.1 mg/dL Normal 8.6-10.3 [facility] Comment on above: Performed By: #### F ER, FE and TIBC #### [facility] [address] [place] [address] [place] Chloride [Moles/Vol] 102 mmol/L Normal 98-107 [facility] Comment on above: Performed By: #### F ER, FE and TIBC #### [facility] [address] CO2 [Moles/Vol] 30.5 mmol/L Normal 21.0-31.0 [facility] Comment on above: Performed By: #### F ER, FE and TIBC #### [facility] [address] [place] [address] [place] Creatinine [Mass/Vol] 0.35 mg/dL Low 0.60-1.20 [facility] Comment on above: Performed By: #### F ER, FE and TIBC #### [facility] [address] [place] [address] [place] Creatinine Clr Calc Pharmacy 35.59 [facility] Comment on above: Result Comment: PERF ORMED BY: [facility] [address] [place] [address] PATHOLOGIST BAGGAGEMASTER CLARICE OSWALD M.D. Performed By: #### F ER, FE and TIBC #### [facility] [address] [place] [address] [place] GFR/1.73 sq M.predicted MDRD (S/P/Bld) [Vol rate/Area] mL/min/{1.73_m2} [facility] Comment on above: Performed By: #### F ER, FE and TIBC #### [facility] [address] Glucose [Mass/Vol] 104 mg/dL Normal 74-109 [facility] Comment on above: Result Comment: [facility] Glucose Reference Range is dependent on time and content of last meal. Glucose of more than 200 mg/dL in a nonstressed, ambulatory subject supports the diagnosis of Diabetes Mellitus. ADA recommended reference range Performed By: #### F ER, FE and TIBC #### [facility] [address] Potassium [Moles/Vol] 3.7 mmol/L Normal 3.5-5.1 [facility] Comment on above: Performed By: #### F ER, FE and TIBC #### [facility] [address] Sodium [Moles/Vol] 137 mmol/L Normal 136-145 [facility] Comment on above: Performed By: #### F ER, FE and TIBC #### [facility] [address] Urea nitrogen [Mass/Vol] 10 mg/dL Normal 7-25 [facility] Comment on above: Performed By: #### F ER, FE and TIBC #### [facility] [address] Basophils Auto (Bld) [#/Vol] Ordered By: Yani Cyr on 10-03-2022 Basophils (Bld) [#/Vol] 0.0 10*3/uL 0.0-0.2 [facility] Basophils/100 WBC Auto (Bld) Ordered By: Yani Cyr on 10-03-2022 Basophils/100 WBC (Bld) 0.4 % . [facility] Calcium [Mass/volume] in Ser um or PlasmaOrdered By: Yani Cyr on 10-03-2022 Calcium [Mass/Vol] 9.1 mg/dL 8.6-10.3 [facility] Carbon dioxide, total [Moles /volume] in Serum or PlasmaOrdered By: Yani Cyr on 10-03-2022 CO2 [Moles/Vol] 30.5 mmol/L 21.0-31.0 [facility] Chloride [Moles/volume] in S enma or PlasmaOrdered By: Yani Cyr on 10-03-2022 Chloride [Moles/Vol] 102 mmol/L 98-107 [facility] Complete Blood Count Auto Di ffon 10-03-2022 Basophils (Bld) [#/Vol] 0.0 10*3/uL Normal 0.0-0.2 [facility] Comment on above: Result Comment: PERF ORMED BY: [place] [address] PATHOLOGIST BAGGAGEMASTER CLARICE OSWALD M.D. Performed By: #### F ER, FE and TIBC #### [address] Basophils/100 WBC (Bld) 0.4 % Normal . [facility] Comment on above: Performed By: #### F ER, FE and TIBC #### [facility] [address] Eosinophils (Bld) [#/Vol] 0.1 10*3/uL Normal 0.0-0.45 [facility] Comment on above: Performed By: #### F ER, FE and TIBC #### [address] Eosinophils/100 WBC (Bld) 1.9 % Normal . [facility] Comment on above: Performed By: #### F ER, FE and TIBC #### [facility] [address] Erythrocyte distribution width (RBC) [Ratio] 14.5 % Normal 11.9-15.3 [facility] Comment on above: Performed By: #### F ER, FE and TIBC #### [facility] [address] [place] [address] Hematocrit (Bld) [Volume fraction] 25.7 % Low 34.0-46.4 [facility] Comment on above: Performed By: #### F ER, FE and TIBC #### [facility] [address] Hemoglobin (Bld) [Mass/Vol] 8.7 g/dL Low 11.8-15.4 [facility] Comment on above: Performed By: #### F ER, FE and TIBC #### [facility] [address] Lymphocytes (Bld) [#/Vol] 1.1 10*3/uL Normal 1.00-4.8 [facility] Comment on above: Performed By: #### F ER, FE and TIBC #### [address] Lymphocytes/100 WBC (Bld) 14.2 % Normal . [facility] Comment on above: Performed By: #### F ER, FE and TIBC #### [address] MCH (RBC) [Entitic mass] 31.5 pg Normal 24.7-34.3 [facility] Comment on above: Performed By: #### F ER, FE and TIBC #### [address] MCV (RBC) [Entitic vol] 92.5 fL Normal 80-100 [facility] Comment on above: Performed By: #### F ER, FE and TIBC #### [address] Mean Corpuscular HGB Conc 34.1 g/dL Normal 32.0-35.0 [facility] Comment on above: Performed By: #### F ER, FE and TIBC #### [place] [address] [place] Monocytes (Bld) [#/Vol] 0.8 10*3/uL Normal 0.0-0.8 [facility] Comment on above: Performed By: #### F ER, FE and TIBC #### [place] [address] [place] Monocytes/100 WBC (Bld) 10.5 % Normal . [facility] Comment on above: Performed By: #### F ER, FE and TIBC #### [facility] [address] Neutrophils (Bld) [#/Vol] 5.5 10*3/uL Normal 1.8-7.7 [facility] Comment on above: Performed By: #### F ER, FE and TIBC #### [facility] [address] Neutrophils/100 WBC (Bld) 73.0 % Normal . [facility] Comment on above: Performed By: #### F ER, FE and TIBC #### [address] NRBC% 0.1 /100{WBC} Normal 0-0.5 [facility] Comment on above: Performed By: #### F ER, FE and TIBC #### [address] Platelet mean volume (Bld) [Entitic vol] 7.5 fL Normal 6.3-10.7 [facility] Comment on above: Performed By: #### F ER, FE and TIBC #### [place] [address] [place] Platelets (Bld) [#/Vol] 322 10*3/uL Normal 150-450 [facility] Comment on above: Performed By: #### F ER, FE and TIBC #### [address] RBC (Bld) [#/Vol] 2.77 10*6/uL Low 3.60-5.00 [facility] Comment on above: Performed By: #### F ER, FE and TIBC #### [place] [address] [place] WBC (Bld) [#/Vol] 7.6 10*3/uL Normal 3.8-11.6 [facility] Comment on above: Performed By: #### F ER, FE and TIBC #### [place] [address] [place] Creatinine [Mass/volume] in Serum or PlasmaOrdered By: Yani Cyr on 10-03-2022 Creatinine [Mass/Vol] 0.35 mg/dL 0.60-1.20 [facility] Eosinophils Auto (Bld) [#/Vo l]Ordered By: Yani Cyr on 10-03-2022 Eosinophils (Bld) [#/Vol] 0.1 10*3/uL 0.0-0.45 [facility] Eosinophils/100 WBC Auto (Bl d)Ordered By: Yani Cyr on 10-03-2022 Eosinophils/100 WBC (Bld) 1.9 % . [facility] Erythrocyte distribution wid th Auto (RBC) [Ratio]Ordered By: Yani Cyr on 10-03-2022 Erythrocyte distribution width (RBC) [Ratio] 14.5 % 11.9-15.3 [facility] Glucose [Mass/volume] in Ser um or PlasmaOrdered By: Yani Cyr on 10-03-2022 Glucose [Mass/Vol] 104 mg/dL 74-109 [facility] Comment on above: ADA recommended refe rence rangeRandom Glucose Reference Range is dependent on time and content of last meal. Glucose of more than 200 mg/dL in a nonstressed, ambulatory subject supports the diagnosis of Diabetes Mellitus. Hematocrit Auto (Bld) [Volum e fraction]Ordered By: Yani Cyr on 10-03-2022 Hematocrit (Bld) [Volume fraction] 25.7 % 34.0-46.4 [facility] Hemoglobin [Mass/volume] in BloodOrdered By: Yani Cyr on 10-03-2022 Hemoglobin (Bld) [Mass/Vol] 8.7 g/dL 11.8-15.4 [facility] Laboratory - Chemistry and C hemistry - challengeOrdered By: Yani Cyr on 10-03-2022 GFR/1.73 sq M.predicted MDRD (S/P/Bld) [Vol rate/Area] mL/min/{1.73_m2} [facility] Leukocytes [#/volume] correc anna marie for nucleated erythrocytes in Blood by Automated counOrdered By: Yani Cyr on 03-13-2023 WBC corrected for nucl RBC Auto (Bld) [#/Vol] 7.6 10*3/uL 3.8-11.6 [facility] Lymphocytes Auto (Bld) [#/Vo l]Ordered By: Yani Cyr on 10-03-2022 Lymphocytes (Bld) [#/Vol] 1.1 10*3/uL 1.00-4.8 [facility] Lymphocytes/100 WBC Auto (Bl d)Ordered By: Yani Cyr on 10-03-2022 Lymphocytes/100 WBC (Bld) 14.2 % . [facility] MCH Auto (RBC) [Entitic mass ]Ordered By: Yani Cyr on 10-03-2022 MCH (RBC) [Entitic mass] 31.5 pg 24.7-34.3 [facility] MCHC Auto (RBC) [Mass/Vol]Or dered By: Yani Cyr on 10-03-2022 MCHC (RBC) [Mass/Vol] 34.1 g/dL 32.0-35.0 [facility] MCV Auto (RBC) [Entitic vol] Ordered By: Yani Cyr on 10-03-2022 MCV (RBC) [Entitic vol] 92.5 fL 80-100 [facility] Monocytes Auto (Bld) [#/Vol] Ordered By: Yani Cyr on 10-03-2022 Monocytes (Bld) [#/Vol] 0.8 10*3/uL 0.0-0.8 [facility] Monocytes/100 WBC Auto (Bld) Ordered By: Yani Cyr on 10-03-2022 Monocytes/100 WBC (Bld) 10.5 % . [facility] Neutrophils Auto (Bld) [#/Vo l]Ordered By: Yani Cyr on 10-03-2022 Neutrophils (Bld) [#/Vol] 5.5 10*3/uL 1.8-7.7 [facility] Neutrophils/100 WBC Auto (Bl d)Ordered By: Yani Cyr on 10-03-2022 Neutrophils/100 WBC (Bld) 73.0 % . [facility] No Panel InformationOrdered By: Yani Cyr on 10-03-2022 Pharmacy Creatinine Clearance (Chem 35.59 [facility] Nucleated erythrocytes [Pres ence] in Blood by Automated countOrdered By: Yani Cyr on 10-03-2022 Nucleated RBC Auto Ql (Bld) 0.1 /100{WBC} 0-0.5 [facility] Platelet mean volume Auto (B ld) [Entitic vol]Ordered By: Yani Cyr on 10-03-2022 Platelet mean volume (Bld) [Entitic vol] 7.5 fL 6.3-10.7 [facility] Platelets Auto (Bld) [#/Vol] Ordered By: Yani Cyr on 10-03-2022 Platelets (Bld) [#/Vol] 322 10*3/uL 150-450 [facility] Potassium [Moles/volume] in Serum or PlasmaOrdered By: Yani Cyr on 10-03-2022 Potassium [Moles/Vol] 3.7 mmol/L 3.5-5.1 [facility] RBC Auto (Bld) [#/Vol]Ordere d By: Yani Cyr on 10-03-2022 RBC (Bld) [#/Vol] 2.77 10*6/uL 3.60-5.00 [facility] Serum or plasma anion gap de terminationOrdered By: Yani Cyr on 10-03-2022 Anion gap [Moles/Vol] 8.2 mmol/L 6.0-15.0 [facility] Sodium [Moles/volume] in Ser um or PlasmaOrdered By: Yani Cyr on 10-03-2022 Sodium [Moles/Vol] 137 mmol/L 136-145 [facility] Urea nitrogen [Mass/volume] in Serum or PlasmaOrdered By: Yani Cyr on 10-03-2022 Urea nitrogen [Mass/Vol] 10 mg/dL 7-25 [facility] WBC Auto (Bld) [#/Vol]Ordere d By: Yani Cyr on 10-03-2022 WBC (Bld) [#/Vol] 7.6 10*3/uL 3.8-11.6 [facility] XR hip LT min 2V(w/wo pelvis )*on 10-03-2022 XR hip LT min 2V(w/wo pelvis)* [facility] [place] [address] [place] [address] XRay Report Signed Patient: Annamaria Garcia MR#: [id number] : 1935 Acct:[id number] Age/Sex: 87 / F ADM Date: 09/28/22 Loc: Room: [address] [place] [address] Type: ADM IN Attending Dr: Yani Cyr [...] Forrester Jr., D.O.10/03/2022 10:04 AM Dictation Location: [place] [address] Transcribed By: [facility] 10/03/22 1004 Dictated By: Josse Forrester Jr, DO 10/03/22 1003 Signed By: 10/03/22 1004 Normal [facility] Hemoglobin and Hematocriton 10-02-2022 Hematocrit (Bld) [Volume fraction] 21.3 % Low 34.0-46.4 [facility] Comment on above: Result Comment: PERF ORMED BY: [place] [address] PATHOLOGIST BAGGAGEMASTER CLARICE OSWALD M.D. Performed By: #### F ER, FE and TIBC #### [place] [address] [place] Hemoglobin (Bld) [Mass/Vol] 7.3 g/dL Low 11.8-15.4 [facility] Comment on above: Performed By: #### F ER, FE and TIBC #### [address] Complete Blood Count Auto Di ffon 10-01-2022 Basophils (Bld) [#/Vol] 0.0 10*3/uL Normal 0.0-0.2 [facility] Comment on above: Result Comment: PERF ORMED BY: [address] [place] [address] PATHOLOGIST BAGGAGEMASTER CLARICE OSWALD M.D. Performed By: #### C BC #### [address] Basophils/100 WBC (Bld) 0.3 % Normal . [facility] Comment on above: Performed By: #### C BC #### [address] Eosinophils (Bld) [#/Vol] 0.1 10*3/uL Normal 0.0-0.45 [facility] Comment on above: Performed By: #### C BC #### [address] Eosinophils/100 WBC (Bld) 1.0 % Normal . [facility] Comment on above: Performed By: #### C BC #### [address] Erythrocyte distribution width (RBC) [Ratio] 13.8 % Normal 11.9-15.3 [facility] Comment on above: Performed By: #### C BC #### [address] Hematocrit (Bld) [Volume fraction] 21.8 % Low 34.0-46.4 [facility] Comment on above: Performed By: #### C BC #### [address] Hemoglobin (Bld) [Mass/Vol] 7.4 g/dL Low 11.8-15.4 [facility] Comment on above: Performed By: #### C BC #### [address] [address] [place] Lymphocytes (Bld) [#/Vol] 0.9 10*3/uL Low 1.00-4.8 [facility] Comment on above: Performed By: #### C BC #### [address] Lymphocytes/100 WBC (Bld) 12.7 % Normal . [facility] Comment on above: Performed By: #### C BC #### [address] MCH (RBC) [Entitic mass] 31.0 pg Normal 24.7-34.3 [facility] Comment on above: Performed By: #### C BC #### [address] MCV (RBC) [Entitic vol] 91.8 fL Normal 80-100 [facility] Comment on above: Performed By: #### C BC #### [address] Mean Corpuscular HGB Conc 33.8 g/dL Normal 32.0-35.0 [facility] Comment on above: Performed By: #### C BC #### [address] Monocytes (Bld) [#/Vol] 1.0 10*3/uL High 0.0-0.8 [facility] Comment on above: Performed By: #### C BC #### [address] Monocytes/100 WBC (Bld) 13.6 % Normal . [facility] Comment on above: Performed By: #### C BC #### [address] Neutrophils (Bld) [#/Vol] 5.3 10*3/uL Normal 1.8-7.7 [facility] Comment on above: Performed By: #### C BC #### [address] Neutrophils/100 WBC (Bld) 72.4 % Normal . [facility] Comment on above: Performed By: #### C BC #### [facility] [address] NRBC% 0.0 /100{WBC} Normal 0-0.5 [facility] Comment on above: Performed By: #### C BC #### [facility] [address] Platelet mean volume (Bld) [Entitic vol] 8.0 fL Normal 6.3-10.7 [facility] Comment on above: Performed By: #### C BC #### [facility] [address] Platelets (Bld) [#/Vol] 208 10*3/uL Normal 150-450 [facility] Comment on above: Performed By: #### C BC #### [facility] [address] RBC (Bld) [#/Vol] 2.37 10*6/uL Low 3.60-5.00 [facility] Comment on above: Performed By: #### C BC #### [facility] [address] WBC (Bld) [#/Vol] 7.3 10*3/uL Normal 3.8-11.6 [facility] Comment on above: Performed By: #### C BC #### [facility] [address] Basic Metabolic Panelon 03- Anion gap [Moles/Vol] 8.7 mmol/L Normal 6.0-15.0 [facility] Comment on above: Performed By: #### B MP, CBC #### [facility] [address] Calcium [Mass/Vol] 8.3 mg/dL Low 8.6-10.3 [facility] Comment on above: Performed By: #### B MP, CBC #### [facility] [address] Chloride [Moles/Vol] 111 mmol/L High 98-107 [facility] Comment on above: Performed By: #### B MP, CBC #### [facility] [address] [place] [address] [place] CO2 [Moles/Vol] 26.5 mmol/L Normal 21.0-31.0 [facility] Comment on above: Performed By: #### B MP, CBC #### [facility] [address] [place] [address] [place] Creatinine [Mass/Vol] 0.37 mg/dL Low 0.60-1.20 [facility] Comment on above: Performed By: #### B MP, CBC #### [facility] [address] [place] [address] [place] Creatinine Clr Calc Pharmacy 35.59 Normal [facility] Comment on above: Result Comment: PERF ORMED BY: [place] [address] PATHOLOGIST BAGGAGEMASTER CLARICE OSWALD M.D. Performed By: #### B MP, CBC #### [facility] [address] [place] [address] [place] GFR/1.73 sq M.predicted MDRD (S/P/Bld) [Vol rate/Area] mL/min/{1.73_m2} Normal [facility] Comment on above: Performed By: #### B MP, CBC #### [facility] [address] Glucose [Mass/Vol] 102 mg/dL Normal 74-109 [facility] Comment on above: Result Comment: [place] Glucose Reference Range is dependent on time and content of last meal. Glucose of more than 200 mg/dL in a nonstressed, ambulatory subject supports the diagnosis of Diabetes Mellitus. ADA recommended reference range Performed By: #### B MP, CBC #### [facility] [address] [place] [address] [place] Potassium [Moles/Vol] 4.2 mmol/L Normal 3.5-5.1 [facility] Comment on above: Performed By: #### B MP, CBC #### [facility] [address] [place] [address] Sodium [Moles/Vol] 142 mmol/L Normal 136-145 [facility] Comment on above: Performed By: #### B MP, CBC #### [address] Urea nitrogen [Mass/Vol] 16 mg/dL Normal 7-25 [facility] Comment on above: Performed By: #### B MP, CBC #### [address] Complete Blood Count Auto Di ffon 09-30-2022 Basophils (Bld) [#/Vol] 0.0 10*3/uL Normal 0.0-0.2 [facility] Comment on above: Result Comment: PERF ORMED BY: [place] [address] PATHOLOGIST BAGGAGEMASTER CLARICE OSWALD M.D. Performed By: #### B MP, CBC #### [address] Basophils/100 WBC (Bld) 0.3 % Normal . [facility] Comment on above: Performed By: #### B MP, CBC #### [address] Eosinophils (Bld) [#/Vol] 0.0 10*3/uL Normal 0.0-0.45 [facility] Comment on above: Performed By: #### B MP, CBC #### [address] Eosinophils/100 WBC (Bld) 0.3 % Normal . [facility] Comment on above: Performed By: #### B MP, CBC #### [address] Erythrocyte distribution width (RBC) [Ratio] 14.1 % Normal 11.9-15.3 [facility] Comment on above: Performed By: #### B MP, CBC #### [address] Hematocrit (Bld) [Volume fraction] 22.3 % Low 34.0-46.4 [facility] Comment on above: Performed By: #### B MP, CBC #### [facility] [address] Hemoglobin (Bld) [Mass/Vol] 7.8 g/dL Low 11.8-15.4 [facility] Comment on above: Performed By: #### B MP, CBC #### [facility] [address] Lymphocytes (Bld) [#/Vol] 1.0 10*3/uL Normal 1.00-4.8 [facility] Comment on above: Performed By: #### B MP, CBC #### [facility] [address] Lymphocytes/100 WBC (Bld) 12.9 % Normal . [facility] Comment on above: Performed By: #### B MP, CBC #### [facility] [address] MCH (RBC) [Entitic mass] 31.9 pg Normal 24.7-34.3 [facility] Comment on above: Performed By: #### B MP, CBC #### [facility] [address] MCV (RBC) [Entitic vol] 91.3 fL Normal 80-100 [facility] Comment on above: Performed By: #### B MP, CBC #### [facility] [address] Mean Corpuscular HGB Conc 34.9 g/dL Normal 32.0-35.0 [facility] Comment on above: Performed By: #### B MP, CBC #### [facility] [address] [place] [address] [place] Monocytes (Bld) [#/Vol] 1.1 10*3/uL High 0.0-0.8 [facility] Comment on above: Performed By: #### B MP, CBC #### [facility] [address] [place] [address] [place] Monocytes/100 WBC (Bld) 13.3 % Normal . [facility] Comment on above: Performed By: #### B MP, CBC #### [facility] [address] [place] [address] [place] Neutrophils (Bld) [#/Vol] 5.9 10*3/uL Normal 1.8-7.7 [facility] Comment on above: Performed By: #### B MP, CBC #### [facility] [address] [place] [address] [place] Neutrophils/100 WBC (Bld) 73.2 % Normal . [facility] Comment on above: Performed By: #### B MP, CBC #### [facility] [address] NRBC% 0.0 /100{WBC} Normal 0-0.5 [facility] Comment on above: Performed By: #### B MP, CBC #### [facility] [address] Platelet mean volume (Bld) [Entitic vol] 8.2 fL Normal 6.3-10.7 [facility] Comment on above: Performed By: #### B MP, CBC #### [facility] [address] [place] [address] [place] Platelets (Bld) [#/Vol] 182 10*3/uL Normal 150-450 [facility] Comment on above: Performed By: #### B MP, CBC #### [facility] [address] [place] [address] [place] RBC (Bld) [#/Vol] 2.44 10*6/uL Low 3.60-5.00 [facility] Comment on above: Performed By: #### B MP, CBC #### [facility] [address] [place] [address] [place] WBC (Bld) [#/Vol] 8.0 10*3/uL Normal 3.8-11.6 [facility] Comment on above: Performed By: #### B MP, CBC #### [facility] [address] [place] [id number] [place] Ferritinon 09-30-2022 Ferritin [Mass/Vol] 53.4 ng/mL Normal 11.0-306.8 [facility] Comment on above: Order Comment: Comme nt add on Result Comment: PERF ORMED BY: [place] [address] PATHOLOGIST BAGGAGEMASTER CLARICE OSWALD M.D. Performed By: #### F ER, FE and TIBC #### [place] [address] [place] Ferritin [Mass/volume] in Se rum or PlasmaOrdered By: Mimi Artis on 09-30-2022 Ferritin [Mass/Vol] 53.4 ng/mL 11.0-306.8 [facility] Hemoglobin and Hematocriton 09-30-2022 Hematocrit (Bld) [Volume fraction] 25.5 % Low 34.0-46.4 [facility] Comment on above: Result Comment: PERF ORMED BY: [place] [address] PATHOLOGIST BAGGAGEMASTER CLARICE OSWALD M.D. Performed By: #### F ER, FE and TIBC #### [facility] [address] [place] [address] Hemoglobin (Bld) [Mass/Vol] 8.6 g/dL Low 11.8-15.4 [facility] Comment on above: Performed By: #### F ER, FE and TIBC #### [address] Iron [Mass/volume] in Serum or PlasmaOrdered By: Mimi Artis on 09-30-2022 Iron [Mass/Vol] 20 ug/dL 50-212 [facility] Iron and TIBC Profileon 09-21 0-2022 % Iron Saturation 7.0 % Low 20-50 [facility] Comment on above: Order Comment: Comme nt add on Performed By: #### F ER, FE and TIBC #### [address] Iron [Mass/Vol] 20 ug/dL Low 50-212 [facility] Comment on above: Order Comment: Comme nt add on Performed By: #### F ER, FE and TIBC #### [facility] [address] [place] [id number] [facility] Total Iron Binding Capacity 286 ug/dL Normal 255-450 [facility] Comment on above: Order Comment: Comme nt add on Performed By: #### F ER, FE and TIBC #### [facility] [address] [place] [address] [place] Transferrin [Mass/Vol] 204 mg/dL Normal 203-362 [facility] Comment on above: Order Comment: Comme nt add on Performed By: #### F ER, FE and TIBC #### [facility] [address] Iron binding capacity [Mass/ volume] in Serum or PlasmaOrdered By: Mimi Artis on 09-30-2022 Iron binding capacity [Mass/Vol] 286 ug/dL 255-450 [facility] Iron saturation [Mass Fracti on] in Serum or PlasmaOrdered By: Mimi Artis on 09-30-2022 Iron saturation [Mass fraction] 7.0 % 20-50 [facility] Transferrin [Mass/volume] in Serum or PlasmaOrdered By: Mimi Artis on 09-30-2022 Transferrin [Mass/Vol] 204 mg/dL 203-362 [facility] Basic Metabolic Panelon Anion gap [Moles/Vol] 12.9 mmol/L Normal 6.0-15.0 [facility] Comment on above: Performed By: #### B MP, SCAN CBC #### [facility] [address] [place] [address] [place] Calcium [Mass/Vol] 8.9 mg/dL Normal 8.6-10.3 [facility] Comment on above: Performed By: #### B MP, SCAN CBC #### [facility] [address] [place] [address] [place] Chloride [Moles/Vol] 108 mmol/L High 98-107 [facility] Comment on above: Performed By: #### B MP, SCAN CBC #### [facility] [address] [place] [address] [place] CO2 [Moles/Vol] 21.4 mmol/L Normal 21.0-31.0 [facility] Comment on above: Performed By: #### B MP, SCAN CBC #### [facility] [address] Creatinine [Mass/Vol] 0.56 mg/dL Low 0.60-1.20 [facility] Comment on above: Performed By: #### B MP, SCAN CBC #### [facility] [address] [place] [address] [place] Creatinine Clr Calc Pharmacy 35.59 [facility] Comment on above: Result Comment: PERF ORMED BY: [place] [address] PATHOLOGIST BAGGAGEMASTER CLARICE OSWALD M.D. Performed By: #### B MP, SCAN CBC #### [address] GFR/1.73 sq M.predicted MDRD (S/P/Bld) [Vol rate/Area] mL/min/{1.73_m2} [facility] Comment on above: Performed By: #### B MP, SCAN CBC #### [facility] [address] [place] [address] Glucose [Mass/Vol] 118 mg/dL High 74-109 [facility] Comment on above: Result Comment: [place] Glucose Reference Range is dependent on time and content of last meal. Glucose of more than 200 mg/dL in a nonstressed, ambulatory subject supports the diagnosis of Diabetes Mellitus. ADA recommended reference range Performed By: #### B MP, SCAN CBC #### [facility] [address] [place] [address] [place] Potassium [Moles/Vol] 4.3 mmol/L Normal 3.5-5.1 [facility] Comment on above: Performed By: #### B MP, SCAN CBC #### [facility] [address] [place] [address] [place] Sodium [Moles/Vol] 138 mmol/L Normal 136-145 [facility] Comment on above: Performed By: #### B MP, SCAN CBC #### [facility] [address] [place] [address] [place] Urea nitrogen [Mass/Vol] 16 mg/dL Normal 7-25 [facility] Comment on above: Performed By: #### B MP, SCAN CBC #### [facility] [address] Platelet adequacy [Presence] in Blood by Light microscopyOrdered By: Mimi Artis on 09-29-2022 Platelets LM Ql (Bld) Normal Normal [facility] Platelet morphology finding [Identifier] in BloodOrdered By: Mimi Artis on 09-29-2022 Platelet morphology finding Nom (Bld) Normal Normal [facility] RBC morphologyOrdered By: Rosalba Artis on 09-29-2022 RBC morphology finding Nom (Bld) Normal Normal [facility] Scan and CBCon 09-29-2022 Basophils (Bld) [#/Vol] 0.0 10*3/uL Normal 0.0-0.2 [facility] Comment on above: Performed By: #### B MP, SCAN CBC #### [facility] [address] [place] [address] [place] Basophils/100 WBC (Bld) 0.1 % Normal . [facility] Comment on above: Performed By: #### B MP, SCAN CBC #### [facility] [address] [place] [address] [place] Eosinophils (Bld) [#/Vol] 0.0 10*3/uL Normal 0.0-0.45 [facility] Comment on above: Performed By: #### B MP, SCAN CBC #### [facility] [address] [place] [address] [place] Eosinophils/100 WBC (Bld) 0.0 % Normal . [facility] Comment on above: Performed By: #### B MP, SCAN CBC #### [facility] [address] [place] [id number] [place] Erythrocyte distribution width (RBC) [Ratio] 14.2 % Normal 11.9-15.3 [facility] Comment on above: Performed By: #### B MP, SCAN CBC #### [address] Hematocrit (Bld) [Volume fraction] 27.0 % Low 34.0-46.4 [facility] Comment on above: Performed By: #### B MP, SCAN CBC #### [address] Hemoglobin (Bld) [Mass/Vol] 9.1 g/dL Low 11.8-15.4 [facility] Comment on above: Performed By: #### B MP, SCAN CBC #### [facility] [address] [place] [address] Lymphocytes (Bld) [#/Vol] 0.9 10*3/uL Low 1.00-4.8 [facility] Comment on above: Performed By: #### B MP, SCAN CBC #### [address] Lymphocytes/100 WBC (Bld) 7.1 % Normal . [facility] Comment on above: Performed By: #### B MP, SCAN CBC #### [address] MCH (RBC) [Entitic mass] 30.9 pg Normal 24.7-34.3 [facility] Comment on above: Performed By: #### B MP, SCAN CBC #### [address] MCV (RBC) [Entitic vol] 91.6 fL Normal 80-100 [facility] Comment on above: Performed By: #### B MP, SCAN CBC #### [address] Mean Corpuscular HGB Conc 33.7 g/dL Normal 32.0-35.0 [facility] Comment on above: Performed By: #### B MP, SCAN CBC #### [facility] [address] [place] [address] Monocytes (Bld) [#/Vol] 1.7 10*3/uL High 0.0-0.8 [facility] Comment on above: Performed By: #### B MP, SCAN CBC #### [facility] [address] Monocytes/100 WBC (Bld) 13.5 % Normal . [facility] Comment on above: Performed By: #### B MP, SCAN CBC #### [facility] [address] Neutrophils (Bld) [#/Vol] 10.2 10*3/uL High 1.8-7.7 [facility] Comment on above: Performed By: #### B MP, SCAN CBC #### [facility] [address] Neutrophils/100 WBC (Bld) 79.3 % Normal . [facility] Comment on above: Performed By: #### B MP, SCAN CBC #### [facility] [address] NRBC% 0.0 /100{WBC} Normal 0-0.5 [facility] Comment on above: Performed By: #### B MP, SCAN CBC #### [facility] [address] [place] [address] Platelet Estimate Normal Normal Normal [facility] Comment on above: Performed By: #### B MP, SCAN CBC #### [facility] [address] Platelet mean volume (Bld) [Entitic vol] 8.0 fL Normal 6.3-10.7 [facility] Comment on above: Performed By: #### B MP, SCAN CBC #### [facility] [address] [place] [address] Platelet Morphology Normal Normal Normal [facility] Comment on above: Result Comment: PERF ORMED BY: [place] [address] PATHOLOGIST BAGGAGEMASTER CLARICE OSWALD M.D. Performed By: #### B MP, SCAN CBC #### [facility] [address] [place] [address] [place] Platelets (Bld) [#/Vol] 220 10*3/uL Normal 150-450 [facility] Comment on above: Performed By: #### B MP, SCAN CBC #### [facility] [facility] [address] [place] [address] [place] RBC (Bld) [#/Vol] 2.95 10*6/uL Low 3.60-5.00 [facility] Comment on above: Performed By: #### B MP, SCAN CBC #### [facility] [address] RBC morphology finding Nom (Bld) Normal Normal Normal [facility] Comment on above: Performed By: #### B MP, SCAN CBC #### [facility] [address] WBC (Bld) [#/Vol] 12.9 10*3/uL High 3.8-11.6 [facility] Comment on above: Performed By: #### B MP, SCAN CBC #### [facility] [address] [place] [address] [place] XR hip LT min 2V(w/wo pelvis )*on 09-29-2022 XR hip LT min 2V(w/wo pelvis)* [facility] [address] [place] [address] XRay Report Signed Patient: Annamaria Garcia MR#: [id number] : 1935 Acct:[id number] Age/Sex: 87 / F ADM Date: 09/28/22 Loc: Room: [address] [place] [address] Type: ADM IN Attending Dr: Adama Kothari [...] Angie Francisco M.D.09/29/2022 11:29 AM Dictation Location: [place] [address] Transcribed By: [facility] 09/29/22 112 Dictated By: Angie Francisco MD 09/29/221126 Signed By: 09/29/22 1129 Normal [facility] ABO AND RH TYPEon 09-28-2022 ABO and Rh group Nom (Bld) ABO Rh Typing A Rh Positive Normal [facility] Comment on above: Performed By: #### C MP, CMADM #### [facility] [address] [place] [address] [address] Nidhi Dawn Albumin Levelon 09-28-2022 Albumin [Mass/Vol] 4.0 g/dL Normal 3.5-5.7 [facility] Comment on above: Result Comment: PERF ORMED BY: [place] [address] PATHOLOGIST BAGGAGEMASTER CLARICE OSWALD M.D. Performed By: #### F ER, FE and TIBC #### [facility] [address] [place] [address] [place] Albumin [Mass/volume] in Ser um or Plasma by Bromocresol green (BCG) dye binding methoOrdered By: Bulmaro Moses on 09-28-2022 Albumin BCG dye [Mass/Vol] 4.0 g/dL 3.5-5.7 [facility] Basic Metabolic Panelon Anion gap [Moles/Vol] 10.8 mmol/L Normal 6.0-15.0 [facility] Comment on above: Performed By: #### F ER, FE and TIBC #### [facility] [address] [place] [address] [place] Calcium [Mass/Vol] 9.0 mg/dL Normal 8.6-10.3 [facility] Comment on above: Performed By: #### F ER, FE and TIBC #### [facility] [address] [place] [address] [place] Chloride [Moles/Vol] 103 mmol/L Normal 98-107 [facility] Comment on above: Performed By: #### F ER, FE and TIBC #### [facility] [address] CO2 [Moles/Vol] 28.5 mmol/L Normal 21.0-31.0 [facility] Comment on above: Performed By: #### F ER, FE and TIBC #### [facility] [address] [place] [address] [place] Creatinine [Mass/Vol] 0.40 mg/dL Low 0.60-1.20 [facility] Comment on above: Performed By: #### F ER, FE and TIBC #### [facility] [address] [place] [address] [place] Creatinine Clr Calc Pharmacy 31.68 [facility] Comment on above: Result Comment: PERF ORMED BY: [facility] [address] [place] [address] PATHOLOGIST BAGGAGEMASTER CLARICE OSWALD M.D. Performed By: #### F ER, FE and TIBC #### [facility] [address] [place] [address] [place] GFR/1.73 sq M.predicted MDRD (S/P/Bld) [Vol rate/Area] mL/min/{1.73_m2} [facility] Comment on above: Performed By: #### F ER, FE and TIBC #### [facility] [address] [place] [address] [place] Glucose [Mass/Vol] 143 mg/dL High 74-109 [facility] Comment on above: Result Comment: [place] Glucose Reference Range is dependent on time and content of last meal. Glucose of more than 200 mg/dL in a nonstressed, ambulatory subject supports the diagnosis of Diabetes Mellitus. ADA recommended reference range Performed By: #### F ER, FE and TIBC #### [facility] [address] [place] [address] [place] Potassium [Moles/Vol] 3.3 mmol/L Low 3.5-5.1 [facility] Comment on above: Performed By: #### F ER, FE and TIBC #### [facility] [address] Sodium [Moles/Vol] 139 mmol/L Normal 136-145 [facility] Comment on above: Performed By: #### F ER, FE and TIBC #### [facility] [address] [place] [id number] [facility] Urea nitrogen [Mass/Vol] 8 mg/dL Normal 7-25 [facility] Comment on above: Performed By: #### F ER, FE and TIBC #### [facility] [address] [place] [id number] [facility] CT ABD/PELVIS WO CONon 09-28 CT ABD/PELVIS [...] RAVEN RENNER Date: 2022-09-27 22:38 Normal [facility] CT CSPINE WO CONon 3 CT CSPINE [...] SOPHIE SINGLETON Date: 2022-09-27 22:42 Normal [facility] CT HEAD WO CONon 09-28-2022 CT [...] RAVEN RENNER Date: 2022-09-27 22:43 Normal [facility] CT LSPINE WO CONon 3 CT LSPINE [...] by: KANU BURK Date: 2022-09-27 22:42 Normal [facility] Complete Blood Count Auto Di ffon 09-28-2022 Basophils (Bld) [#/Vol] 0.0 10*3/uL Normal 0.0-0.2 [facility] Comment on above: Result Comment: PERF ORMED BY: [place] [address] PATHOLOGIST BAGGAGEMASTER CLARICE OSWALD M.D. Performed By: #### F ER, FE and TIBC #### [place] [address] [place] Basophils/100 WBC (Bld) 0.0 % Normal . [facility] Comment on above: Performed By: #### F ER, FE and TIBC #### [place] [address] [place] Eosinophils (Bld) [#/Vol] 0.0 10*3/uL Normal 0.0-0.45 [facility] Comment on above: Performed By: #### F ER, FE and TIBC #### [address] Eosinophils/100 WBC (Bld) 0.0 % Normal . [facility] Comment on above: Performed By: #### F ER, FE and TIBC #### [address] Erythrocyte distribution width (RBC) [Ratio] 13.9 % Normal 11.9-15.3 [facility] Comment on above: Performed By: #### F ER, FE and TIBC #### [address] Hematocrit (Bld) [Volume fraction] 33.9 % Low 34.0-46.4 [facility] Comment on above: Performed By: #### F ER, FE and TIBC #### [address] Hemoglobin (Bld) [Mass/Vol] 11.5 g/dL Low 11.8-15.4 [facility] Comment on above: Performed By: #### F ER, FE and TIBC #### [address] Lymphocytes (Bld) [#/Vol] 0.6 10*3/uL Low 1.00-4.8 [facility] Comment on above: Performed By: #### F ER, FE and TIBC #### [address] Lymphocytes/100 WBC (Bld) 4.7 % Normal . [facility] Comment on above: Performed By: #### F ER, FE and TIBC #### [address] MCH (RBC) [Entitic mass] 30.8 pg Normal 24.7-34.3 [facility] Comment on above: Performed By: #### F ER, FE and TIBC #### [address] [place] [address] [place] MCV (RBC) [Entitic vol] 90.8 fL Normal 80-100 [facility] Comment on above: Performed By: #### F ER, FE and TIBC #### [facility] [address] Mean Corpuscular HGB Conc 34.0 g/dL Normal 32.0-35.0 [facility] Comment on above: Performed By: #### F ER, FE and TIBC #### [address] Monocytes (Bld) [#/Vol] 0.9 10*3/uL High 0.0-0.8 [facility] Comment on above: Performed By: #### F ER, FE and TIBC #### [address] Monocytes/100 WBC (Bld) 7.4 % Normal . [facility] Comment on above: Performed By: #### F ER, FE and TIBC #### [address] Neutrophils (Bld) [#/Vol] 10.7 10*3/uL High 1.8-7.7 [facility] Comment on above: Performed By: #### F ER, FE and TIBC #### [address] Neutrophils/100 WBC (Bld) 87.9 % Normal . [facility] Comment on above: Performed By: #### F ER, FE and TIBC #### [address] NRBC% 0.1 /100{WBC} Normal 0-0.5 [facility] Comment on above: Performed By: #### F ER, FE and TIBC #### [address] Platelet mean volume (Bld) [Entitic vol] 8.0 fL Normal 6.3-10.7 [facility] Comment on above: Performed By: #### F ER, FE and TIBC #### [facility] [address] Platelets (Bld) [#/Vol] 253 10*3/uL Normal 150-450 [facility] Comment on above: Performed By: #### F ER, FE and TIBC #### [facility] [address] RBC (Bld) [#/Vol] 3.73 10*6/uL Normal 3.60-5.00 [facility] Comment on above: Performed By: #### F ER, FE and TIBC #### [facility] [address] WBC (Bld) [#/Vol] 12.2 10*3/uL High 3.8-11.6 [facility] Comment on above: Performed By: #### F ER, FE and TIBC #### [facility] [address] ECG 12 lead ECGon 09-28-2022 ECG 12 lead ECG [facility] [address] [place] [address] Electrocardiograph Report Signed Patient: Annamaria Garcia MR#: [id number] : 1935 Acct:[id number] Age/Sex: 87 / F ADM Date: 09/28/22 Loc: Room: [address] [place] [address] Type: ADM IN Attending Dr: Adama Kothari [...] ECG No previous ECGs available Confirmed by ANTONIA PACHECO, ESTEE ([id number]) on 09/28/2022 3:08:35 PM Referred By: Electronically Signed By:ESTEE KNIGHT MD Transcribed By: MUS Signed By Estee Knight MD 0 09/28/22 1508 Normal [facility] ER URINE PROFILEon 3 Bilirubin Ql (U) Negative Normal NEGATIVE [facility] Comment on above: Performed By: #### C MP, CMADM #### [facility] [address] [place] [address] [address] Nidhi Dawn Clarity (U) CLEAR Normal CLEAR [facility] Comment on above: Performed By: #### C MP, CMADM #### [facility] [address] [place] [address] Dr. Nidhi Dawn Color (U) LT. YELLOW Normal YELLOW [facility] Comment on above: Performed By: #### C MP, CMADM #### [facility] [address] [place] [address] Dr. Nidhi TERRAZAS A micrscopic examina tion will be performed if indicated. Normal [facility] Comment on above: Performed By: #### C MP, CMADM #### [facility] [address] [place] [address] [address] Nidhi Dawn Glucose Ql (U) Negative Normal NEGATIVE [facility] Comment on above: Performed By: #### C DONA, CMADM #### [facility] [address] [place] [address] Dr. Nidhi Dawn Hemoglobin Ql (U) Negative Normal NEGATIVE [facility] Comment on above: Performed By: #### C DONA, CMADM #### [facility] [address] [place] [address] [address] Nidhi Dawn Ketones Ql (U) 40 mg/dl Abnormal NEGATIVE [facility] Comment on above: Performed By: #### C DONA, CMADM #### [facility] [address] [place] [address] [address] Nidhi Dawn LEUKOCYTES Negative Normal NEGATIVE [facility] Comment on above: Performed By: #### C MP, CMADM #### [facility] [address] [place] [address] Dr. Nidhi Dawn Nitrite Ql (U) Negative Normal NEGATIVE [facility] Comment on above: Performed By: #### C MP, CMADM #### [facility] [address] [place] [address] [address] Nidhi Dawn pH (U) 7.0 [pH] Normal 5-9 [facility] Comment on above: Performed By: #### C MP, CMADM #### [facility] [address] [place] [address] [address] Nidhi Dawn SPEC GRAVITY 1.010 Normal 1.005-<=1.[address] [place] [address] Comment on above: Performed By: #### C MP, CMADM #### [facility] [address] [place] [address] [address] Nidhi Dawn UA PROTEIN TRACE Normal NEGATIVE/ TRACE [facility] Comment on above: Performed By: #### C MP, CMADM #### [facility] [address] [place] [address] [address] Nidhi Dawn UR MICRO IND NOT INDICATED Normal [facility] Comment on above: Performed By: #### C MP, CMADM #### [facility] [address] [place] [address] [address] Nidhi Dawn Urobilinogen Qn (U) 0.2 {[place]'U}/dL Normal 0.2 - 1. 0 [facility] Comment on above: Performed By: #### C MP, CMADM #### [facility] [address] [place] [address] [address] Nidhi Dawn Glucose Glucometer (dC) [M ass/Vol]Ordered By: Juliet Green on 09-28-2022 Glucose [Mass/Vol] 107 mg/dL [facility] Comment on above: Random Glucose Refer ence Range is dependent on time and content of last meal. Glucose of more than 200 mg/dL in a nonstressed, ambulatory subject supports the diagnosis of Diabetes Mellitus. Glucose Poct Glucometerson 0 09-28-2022 Glucose [Mass/Vol] 107 mg/dL Normal [facility] Comment on above: Result Comment: [place] Glucose Reference Range is dependent on time and content of last meal. Glucose of more than 200 mg/dL in a nonstressed, ambulatory subject supports the diagnosis of Diabetes Mellitus. PERFORMED BY: [place] [address] PATHOLOGIST BAGGAGEMASTER CLARICE OSWALD M.D. Performed By: #### G OSCAR #### Point of Care testing , Laboratory - CoagulationOrde red By: Juliet Green on 09-28-2022 PT Coag (PPP) [Time] 13.1 s 9.0-12.9 [facility] Magnesiumon 09-28-2022 Magnesium [Mass/Vol] 1.9 mg/dL Normal 1.9-2.7 [facility] Comment on above: Order Comment: Comme nt add Result Comment: PERF ORMED BY: [place] [address] PATHOLOGIST BAGGAGEMASTER CLARICE OSWALD M.D. Performed By: #### M G #### [address] Magnesium [Mass/volume] in S enma or PlasmaOrdered By: Juliet Green on 09-28-2022 Magnesium [Mass/Vol] 1.9 mg/dL 1.9-2.7 [facility] Platelet poor plasma interna tional normalized ratio (INR) by coagulation assay (relatOrdered By: Juliet Green on 09-28-2022 INR Coag (PPP) [Relative time] 1.1 {INR} [facility] Comment on above: INR Therapeutic Rang e [...] Coag (PPP) [Relative time] 1.1 {INR} Normal [facility] Comment on above: Result Comment: INR Therapeutic [...] heart valves: 3 - 4.5 PERFORMED BY: [place] [address] PATHOLOGIST BAGGAGEMASTER CLARICE OSWALD M.D. Performed By: #### F ER, FE and TIBC #### [facility] [address] [place] [address] PT Coag (PPP) [Time] 13.1 s High 9.0-12.9 [facility] Comment on above: Performed By: #### F ER FE and TIBC #### [address] Vitamin B12on 09-28-2022 Cobalamin (Vitamin B12) [Mass/Vol] 202 pg/mL Normal 180-914 [facility] Comment on above: Result Comment: PERF ORMED BY: [place] [address] PATHOLOGIST BAGGAGEMASTER CLARICE OSWALD M.D. Performed By: #### B 12 #### [address] Vitamin B12 ser/plasOrdered By: Mimi Artis on 09-28-2022 Cobalamin (Vitamin B12) [Mass/Vol] 202 pg/mL 180-914 [facility] Vitamin D 25 Hydroxy,Tot+D2+ D3on 09-28-2022 Vitamin D 25 [place] (LC) 33 ng/mL Normal . [facility] Comment on above: Result Comment: Refe rence Range: All Ages: Target levels 30 - 100 Performed By: #### F ER, FE and TIBC #### [facility] [address] [place] [address] Vitamin D-2 <1.0 Normal . [facility] Comment on above: Result Comment: This test was developed and its performance characteristics determined by [employer]. It has not been cleared or approved by the Food and Drug Administration. Performed By: #### F ER, FE and TIBC #### [facility] [address] [place] [address] Vitamin D-3 33 ng/mL Normal . [facility] Comment on above: Result Comment: This test was developed and its performance characteristics determined by [facility]. It has not been cleared or approved by the Food and Drug Administration. Performed at: [facility] [address] [place] [id number] [employer]: Avel Dempsey MD, Phone: [phone] PERFORMED BY: [place] [address] PATHOLOGIST BAGGAGEMASTER CLARICE OSWALD M.D. Performed By: #### F ER, FE and TIBC #### [address] XR femur LT 2V*on 09-28-2022 XR femur LT 2V* [facility] [address] [place] [address] XRay Report Signed Patient: Annamaria Garcia MR#: [id number] : 1935 Acct:[id number] Age/Sex: 87 / F ADM Date: 09/28/22 Loc: Room: [address] [place] [address] Type: ADM IN Attending Dr: Juliet Green MD Copies to: MD Juliet Lennon MD Ordering Provider: Bulmaro Moses MD Date of Service: 09/28/22 XR/XR femur LT 2V*: left fem head fx ([id number]) XR/XR low pelvis w/LT x-table hip: left [...] fractures or dislocation are seen within the cvfrs-wy-yvsr. There is mild degenerative change at the knee with medial tibiofemoral joint compartment narrowing and minor tricompartment marginal spurring. There are no focal soft tissue findings. IMPRESSION: NO ACUTE BONY INJURY WITHIN THE GROJI-MS-UNEW. Impression dictated by: Angie Francisco M.D.09/28/2022 7:21 AM Dictation Location: [place] [address] Transcribed By: [facility] 09/28/22720 Dictated By: Angie Francisco MD 09/28/22 0716 Signed By: 09/28/22 0721 [facility] CARDIAC CELESTINO ADMITon 023 CK [Catalytic activity/Vol] 96 U/L Normal 26-192 [facility] Comment on above: Performed By: #### C HELENA CARCAMO #### [facility] [address] [place] [address] Dr. Nidhi Dawn CK.MB [Mass/Vol] 2.59 ng/mL Normal <=3.60 [facility] Comment on above: Performed By: #### C HELENA CARCAMO #### [facility] [address] [place] [address] [address] Nidhi Dawn HSTROP 8.6 pg/mL Normal 4.0-51.3 [facility] Comment on above: Result Comment: CUT- OFF POINTS HAVE BEEN ESTABLISHED BASED ON THE FOURTH UNIVERSAL DEFINITIONS OF MYOCARDIAL INFARCTION. THE UPPER REFERENCE LIMIT (URL) OF TROPONIN, DEFINED THE 99TH PERCENTILE OF cTnI DISTRIBUTION IN A REFERENCE POPULATION, HAS BEEN CONFIRMED THE DECISION THRESHOLD FOR MD DIAGNOSIS. Performed By: #### C HELENA CARCAMO #### [facility] [address] [place] [address] [address] Nidhi Dawn BOBBY 75 ng/mL Normal 9-82 [facility] Comment on above: Performed By: #### C MP, CMADM #### [facility] [address] [place] [address] Dr. Nidhi Dawn CBC AUTO DIFFon 09-27-2022 BASO # 0.0 103/ul Normal 0.0-0.1 [facility] Comment on above: Performed By: #### C BC #### [facility] [address] [place] [address] Dr. Nidhi Dawn Basophils/100 WBC (Bld) 0.2 % Normal 0.2-2.0 [facility] Comment on above: Performed By: #### C BC #### [facility] [address] [place] [address] Dr. Nidhi Dawn EO # 0.0 103/ul Normal 0.0-0.7 [facility] Comment on above: Performed By: #### C BC #### [facility] [address] [place] [address] Dr. Nidhi Dawn Eosinophils/100 WBC (Bld) 0.1 % Critically low 0.9-7.0 [facility] Comment on above: Performed By: #### C BC #### [facility] [address] [place] [address] Dr. Nidhi Dawn Erythrocyte distribution width (RBC) [Ratio] 13.2 % Normal 11.0-15.0 [facility] Comment on above: Performed By: #### C BC #### [facility] [address] [place] [address] Dr. Nidhi Dawn Hematocrit (Bld) [Volume fraction] 34.6 % Critically low 36.0-48.0 [facility] Comment on above: Performed By: #### C BC #### [facility] [address] [place] [address] Dr. Nidhi Dawn Hemoglobin (Bld) [Mass/Vol] 11.7 g/dL Critically low 12.0-16.0 [facility] Comment on above: Performed By: #### C BC #### [facility] [address] [place] [address] Dr. Nidhi Dawn IG # 0.06 10e3/ul Critically high 0.00-0.03 [facility] Comment on above: Performed By: #### C BC #### [facility] [address] [place] [address] Dr. Nidhi Dawn IG % 0.4 % Normal 0.0-0.5 [facility] Comment on above: Performed By: #### C BC #### [facility] [address] [place] [address] Dr. Nidhi Dawn LYMPH # 1.1 103/ul Critically low 1.2-3.8 [facility] Comment on above: Performed By: #### C BC #### [facility] [address] [place] [address] Dr. Nidhi Dawn Lymphocytes/100 WBC (Bld) 7.0 % Critically low 20.5-60.0 [facility] Comment on above: Performed By: #### C BC #### [facility] [address] [place] [address] Dr. Nidhi Dawn MANUAL DIFF REQ NO Normal [facility] Comment on above: Performed By: #### C BC #### [facility] [address] [place] [address] Dr. Nidhi Dawn MCH (RBC) [Entitic mass] 31.0 pg Normal 26.7-34.0 [facility] Comment on above: Performed By: #### C BC #### [facility] [address] [place] [address] Dr. Nidhi Dawn MCHC (RBC) [Mass/Vol] 33.8 g/dL Normal 29.9-35.2 [facility] Comment on above: Performed By: #### C BC #### [facility] [address] [place] [address] Dr. Nidhi Dawn MCV (RBC) [Entitic vol] 91.8 fL Normal 81.0-99.0 [facility] Comment on above: Performed By: #### C BC #### [facility] [address] [place] [address] Dr. Nidhi Dawn MONO # 1.1 103/ul Critically high 0.3-0.8 [facility] Comment on above: Performed By: #### C BC #### [facility] [address] [place] [address] Dr. Nidhi Dawn Monocytes/100 WBC (Bld) 7.0 % Normal 1.7-12.0 [facility] Comment on above: Performed By: #### C BC #### [facility] [address] [place] [address] Dr. Nidhi Dawn NEUT # 13.1 103/ul Critically high 1.4-6.5 [facility] Comment on above: Performed By: #### C BC #### [facility] [address] [place] [address] Dr. Nidhi Dawn Neutrophils/100 WBC (Bld) 85.3 % Critically high 43.0-75.0 [facility] Comment on above: Performed By: #### C BC #### [facility] [address] [place] [address] Dr. Nidhi Dawn Platelet mean volume (Bld) [Entitic vol] 9.1 fL Critically low 9.5-13.5 [facility] Comment on above: Performed By: #### C BC #### [facility] [address] [place] [address] Dr. Nidhi Dawn PLT 274 103/ul Normal 150-450 [facility] Comment on above: Performed By: #### C BC #### [facility] [address] [place] [address] Dr. Nidhi Dawn RBC 3.77 106/ul Critically low 4.20-5.40 [facility] Comment on above: Performed By: #### C BC #### [facility] [address] [place] [address] Dr. Nidhi Dawn WBC 15.4 103/ul Critically high 4.0-11.0 [facility] Comment on above: Performed By: #### C BC #### [facility] [address] [place] [address] Dr. Nidhi Dawn MAGNESIUMon 09-27-2022 Magnesium [Mass/Vol] 1.6 mg/dL Critically low 1.8-2.4 [facility] Comment on above: Performed By: #### C BC #### [facility] [address] [place] [address] Dr. Nidhi Dawn PROF 14(COMP METB)on 023 Albumin [Mass/Vol] 3.6 g/dL Normal 3.4-5.0 [facility] Comment on above: Performed By: #### C LEONCIO CARCAMODM #### [facility] [address] [place] [address] Dr. Nidhi Dawn Albumin/Globulin [Mass ratio] 1.2 {ratio} Normal [facility] Comment on above: Performed By: #### C LEONCIO CARCAMODM #### [facility] [address] [place] [address] Dr. Nidhi Dawn ALP [Catalytic activity/Vol] 60 U/L Normal 46-116 [facility] Comment on above: Performed By: #### C LEONCIO CARCAMODM #### [facility] [address] [place] [address] Dr. Nidhi Dawn ALT [Catalytic activity/Vol] 18 U/L Normal 14-59 [facility] Comment on above: Performed By: #### C LEONCIO CARCAMODM #### [facility] [address] [place] [address] Dr. Nidhi Dawn Anion gap [Moles/Vol] 9.3 mmol/L Normal [facility] Comment on above: Performed By: #### C DONA, CMADM #### [facility] [address] [place] [address] Dr. Nidhi Dawn AST [Catalytic activity/Vol] 19 U/L Normal 15-37 [facility] Comment on above: Performed By: #### C DONA, CMADM #### [facility] [address] [place] [address] Dr. Nidhi Dawn Bilirubin [Mass/Vol] 0.4 mg/dL Normal 0.2-1.0 [facility] [facility] Comment on above: Performed By: #### C DONA, CMADM #### [facility] [address] [place] [address] Dr. Nidhi Dawn Calcium [Mass/Vol] 8.8 mg/dL Normal 8.5-10.1 [facility] Comment on above: Performed By: #### C DONA, CMADM #### [facility] [address] [place] [address] Dr. Nidhi Dawn Chloride [Moles/Vol] 104 mmol/L Normal 98-107 [facility] Comment on above: Performed By: #### C DONA, CMADM #### [facility] [address] [place] [address] Dr. Nidhi Dawn CO2 [Moles/Vol] 30.6 mmol/L Normal 21.0-32.0 [facility] Comment on above: Performed By: #### C DONA, CMADM #### [facility] [address] [place] [address] Dr. Nidhi Dawn Creatinine [Mass/Vol] 0.43 mg/dL Critically low 0.55-1.02 [facility] Comment on above: Performed By: #### C DONA, CMADM #### [facility] [address] [place] [address] Dr. Nidhi Dawn EGFR-AF FAROESE >60 Normal >=60 [facility] Comment on above: Performed By: #### C DONA, LEONCIODM #### [facility] [address] [place] [address] Dr. Nidhi Dawn EGFR-NON AF FAROESE >60 Normal >=60 [facility] Comment on above: Performed By: #### C DONA, CMADM #### [facility] [address] [place] [address] Dr. Nidhi Dawn Globulin (S) [Mass/Vol] 3.0 g/dL Normal [facility] Comment on above: Performed By: #### C DONA, CMADM #### [facility] [address] [place] [address] Dr. Nidhi Dawn Glucose [Mass/Vol] 152 mg/dL Critically high 74-106 T [facility] Comment on above: Performed By: #### C DONA, LEONCIODM #### [facility] [address] [place] [address] Dr. Nidhi Dawn Potassium [Moles/Vol] 2.9 mmol/L Critically low 3.5-5.1 [facility] Comment on above: Performed By: #### C DONA, CMADM #### [facility] [address] [address] [address] Nidhi Dawn Protein [Mass/Vol] 6.6 g/dL Normal 6.4-8.2 [facility] Comment on above: Performed By: #### C DONA, CMADM #### [facility] [address] [address] [address] Nidhi Dawn Sodium [Moles/Vol] 140 mmol/L Normal 136-145 [facility] Comment on above: Performed By: #### C DONA, CMADM #### [facility] [address] [place] [address] Dr. Nidhi Dawn Urea nitrogen [Mass/Vol] 5.0 mg/dL Critically low 7.0-18.0 [facility] Comment on above: Performed By: #### C DONA, CMADM #### [facility] [address] [place] [address] Dr. Nidhi Dawn Urea nitrogen/Creatinine [Mass ratio] 11.6 mg/mg Normal [facility] Comment on above: Performed By: #### C DONA, CMADM #### [facility] [address] [place] [address] PELVIS WO CONon [...] TAYLOR PENA Date: 2022-05-02 16:39 Normal [facility] T4 [facility]on 04-05-2022 T4 [Mass/Vol] 6.9 ug/dL Normal 4.5-12.0 [facility] Comment on above: Performed By: #### C BC #### [facility] [address] [place] [address] Dr. Nidhi Dawn CBC AUTO DIFFon 04-04-2022 BASO # 0.0 103/ul Normal 0.0-0.1 [facility] Comment on above: Performed By: #### C BC #### [facility] [address] [place] [address] Dr. Nidhi Dawn Basophils/100 WBC (Bld) 0.4 % Normal 0.2-2.0 [facility] Comment on above: Performed By: #### C BC #### [facility] [address] [place] [address] Dr. Nidhi Dawn EO # 0.2 103/ul Normal 0.0-0.7 [facility] Comment on above: Performed By: #### C BC #### [facility] [address] [place] [address] Dr. Nidhi Dawn Eosinophils/100 WBC (Bld) 3.1 % Normal 0.9-7.0 [facility] Comment on above: Performed By: #### C BC #### [facility] [address] [place] [address] Dr. Nidhi Dawn Erythrocyte distribution width (RBC) [Ratio] 13.6 % Normal 11.0-15.0 [facility] Comment on above: Performed By: #### C BC #### [facility] [address] [place] [address] Dr. Nidhi Dawn Hematocrit (Bld) [Volume fraction] 30.8 % Critically low 36.0-48.0 [facility] Comment on above: Performed By: #### C BC #### [facility] [address] [place] [address] Dr. Nidhi Dawn Hemoglobin (Bld) [Mass/Vol] 10.3 g/dL Critically low 12.0-16.0 [facility] Comment on above: Performed By: #### C BC #### [facility] [address] [place] [address] Dr. Nidhi Dawn IG # 0.04 10e3/ul Critically high 0.00-0.03 [facility] Comment on above: Performed By: #### C BC #### [facility] [address] [place] [address] Dr. Nidhi Dawn IG % 0.6 % Critically high 0.0-0.5 [facility] Comment on above: Performed By: #### C BC #### [facility] [address] [place] [address] Dr. Nidhi Dawn LYMPH # 1.3 103/ul Normal 1.2-3.8 [facility] Comment on above: Performed By: #### C BC #### [facility] [address] [place] [address] Dr. Nidhi Dawn Lymphocytes/100 WBC (Bld) 18.3 % Critically low 20.5-60.0 [facility] Comment on above: Performed By: #### C BC #### [facility] [address] [place] [address] Dr. Nidhi Dawn MANUAL DIFF REQ NO Normal [facility] Comment on above: Performed By: #### C BC #### [facility] [address] [place] [address] Dr. Nidhi Dawn MCH (RBC) [Entitic mass] 31.0 pg Normal 26.7-34.0 [facility] Comment on above: Performed By: #### C BC #### [facility] [address] [place] [address] Dr. Nidhi Dawn MCHC (RBC) [Mass/Vol] 33.4 g/dL Normal 29.9-35.2 [facility] Comment on above: Performed By: #### C BC #### [facility] [address] [place] [address] Dr. Nidhi Dawn MCV (RBC) [Entitic vol] 92.8 fL Normal 81.0-99.0 [facility] Comment on above: Performed By: #### C BC #### [facility] [address] [place] [address] Dr. Nidhi Dawn MONO # 1.0 103/ul Critically high 0.3-0.8 [facility] Comment on above: Performed By: #### C BC #### [facility] [address] [place] [address] Dr. Nidhi Dawn Monocytes/100 WBC (Bld) 13.7 % Critically high 1.7-12.0 [facility] Comment on above: Performed By: #### C BC #### [facility] [address] [place] [address] Dr. Nidhi Dawn NEUT # 4.5 103/ul Normal 1.4-6.5 [facility] Comment on above: Performed By: #### C BC #### [facility] [address] [place] [address] Dr. Nidhi Dawn Neutrophils/100 WBC (Bld) 63.9 % Normal 43.0-75.0 [facility] Comment on above: Performed By: #### C BC #### [facility] [address] [place] [address] Dr. Nidhi Dawn Platelet mean volume (Bld) [Entitic vol] 9.6 fL Normal 9.5-13.5 [facility] Comment on above: Performed By: #### C BC #### [facility] [address] [place] [address] Dr. Nidhi Dawn PLT 228 103/ul Normal 150-450 [facility] Comment on above: Performed By: #### C BC #### [facility] [address] [place] [address] Dr. Nidhi Dawn RBC 3.32 106/ul Critically low 4.20-5.40 [facility] Comment on above: Performed By: #### C BC #### [facility] [address] [place] [address] Dr. Nidhi Dawn WBC 7.0 103/ul Normal 4.0-11.0 [facility] Comment on above: Performed By: #### C BC #### [facility] [address] [place] [address] Dr. Nidhi Dawn CULTURE URINEon 04-04-2022 CULTURE [...] F Trimethoprim/Sulfamethoxaz ole <=20 S F Normal [facility] Comment on above: Performed By: #### C DONA, CMADM #### [facility] [address] [place] [address] Dr. Nidhi Dawn PROF CHEM 8 (BAS METB)on Anion gap [Moles/Vol] 8.8 mmol/L Normal [facility] Comment on above: Performed By: #### C DONA, CMADM #### [facility] [address] [place] [address] Dr. Nidhi Dawn Calcium [Mass/Vol] 8.7 mg/dL Normal 8.5-10.1 [facility] Comment on above: Performed By: #### C DONA, CMADM #### [facility] [address] [place] [address] Dr. Nidhi Dawn Chloride [Moles/Vol] 101 mmol/L Normal 98-107 [facility] Comment on above: Performed By: #### C DONA, LEONCIODM #### [facility] [address] [place] [address] Dr. Nidhi Dawn CO2 [Moles/Vol] 29.6 mmol/L Normal 21.0-32.0 [facility] Comment on above: Performed By: #### C DONA, CMADM #### [facility] [address] [place] [address] Dr. Nidhi Dawn Creatinine [Mass/Vol] 0.56 mg/dL Normal 0.55-1.02 [facility] Comment on above: Performed By: #### C DONA, CMADM #### [facility] [address] [place] [address] Dr. Nidhi Dawn EGFR-AF FAROESE >60 Normal >=60 [facility] Comment on above: Performed By: #### C DONA, CMADM #### [facility] [address] [place] [address] Dr. Nidhi Dawn EGFR-NON AF FAROESE >60 Normal >=60 [facility] Comment on above: Performed By: #### C DONA, CMADM #### [facility] [address] [place] [address] Dr. Nidhi Dawn Glucose [Mass/Vol] 106 mg/dL Normal 74-106 [facility] Comment on above: Performed By: #### C MP, CMADM #### [facility] [address] [place] [address] Dr. Nidhi Dawn Potassium [Moles/Vol] 3.4 mmol/L Critically low 3.5-5.1 [facility] Comment on above: Performed By: #### C DONA, CMADM #### [facility] [address] [place] [address] Dr. Nidhi Dawn Sodium [Moles/Vol] 136 mmol/L Normal 136-145 [facility] Comment on above: Performed By: #### C DONA, CMADM #### [facility] [address] [place] [address] Dr. Nidhi Dawn Urea nitrogen [Mass/Vol] 10.0 mg/dL Normal 7.0-18.0 [facility] Comment on above: Performed By: #### C DONA, LEONCIODM #### [facility] [address] [place] [address] Dr. Nidhi Dawn Urea nitrogen/Creatinine [Mass ratio] 17.9 mg/mg Normal [facility] Comment on above: Performed By: #### C DONA, CMADM #### [facility] [address] [place] [address] Dr. Nidhi Dawn CBC AUTO DIFFon 04-03-2022 BASO # 0.0 103/ul Normal 0.0-0.1 [facility] Comment on above: Performed By: #### C BC #### [facility] [address] [place] [address] Dr. Nidhi Dawn Basophils/100 WBC (Bld) 0.4 % Normal 0.2-2.0 [facility] Comment on above: Performed By: #### C BC #### [facility] [address] [place] [address] Dr. Nidhi Dawn EO # 0.1 103/ul Normal 0.0-0.7 [facility] Comment on above: Performed By: #### C BC #### [facility] [address] [place] [address] Dr. Nidhi Dawn Eosinophils/100 WBC (Bld) 1.0 % Normal 0.9-7.0 [facility] Comment on above: Performed By: #### C BC #### [facility] [address] [place] [address] Dr. Nidhi Dawn Erythrocyte distribution width (RBC) [Ratio] 13.6 % Normal 11.0-15.0 [facility] Comment on above: Performed By: #### C BC #### [facility] [address] [place] [address] Dr. Nidhi Dawn Hematocrit (Bld) [Volume fraction] 28.4 % Critically low 36.0-48.0 [facility] Comment on above: Performed By: #### C BC #### [facility] [address] [place] [address] Dr. Nidhi Dawn Hemoglobin (Bld) [Mass/Vol] 9.2 g/dL Critically low 12.0-16.0 [facility] Comment on above: Performed By: #### C BC #### [facility] [address] [place] [address] Dr. Nidhi Dawn IG # 0.04 10e3/ul Critically high 0.00-0.03 [facility] Comment on above: Performed By: #### C BC #### [facility] [address] [place] [address] Dr. Nidhi Dawn IG % 0.5 % Normal 0.0-0.5 [facility] Comment on above: Performed By: #### C BC #### [facility] [address] [place] [address] Dr. Nidhi Dawn LYMPH # 1.1 103/ul Critically low 1.2-3.8 [facility] Comment on above: Performed By: #### C BC #### [facility] [address] [place] [address] Dr. Nidhi Dawn Lymphocytes/100 WBC (Bld) 13.6 % Critically low 20.5-60.0 [facility] Comment on above: Performed By: #### C BC #### [facility] [address] [place] [address] Dr. Nidhi Dawn MANUAL DIFF REQ NO Normal [facility] Comment on above: Performed By: #### C BC #### [facility] [address] [place] [address] Dr. Nidhi Dawn MCH (RBC) [Entitic mass] 30.0 pg Normal 26.7-34.0 [facility] Comment on above: Performed By: #### C BC #### [facility] [address] [place] [address] Dr. Nidhi Dawn MCHC (RBC) [Mass/Vol] 32.4 g/dL Normal 29.9-35.2 [facility] Comment on above: Performed By: #### C BC #### [facility] [address] [place] [address] Dr. Nidhi Dawn MCV (RBC) [Entitic vol] 92.5 fL Normal 81.0-99.0 [facility] Comment on above: Performed By: #### C BC #### [facility] [address] [place] [address] Dr. Nidhi Dawn MONO # 0.9 103/ul Critically high 0.3-0.8 [facility] Comment on above: Performed By: #### C BC #### [facility] [address] [place] [address] Dr. Nidhi Dawn Monocytes/100 WBC (Bld) 12.1 % Critically high 1.7-12.0 [facility] Comment on above: Performed By: #### C BC #### [facility] [address] [place] [address] Dr. Nidhi Dawn NEUT # 5.7 103/ul Normal 1.4-6.5 [facility] Comment on above: Performed By: #### C BC #### [facility] [address] [place] [address] Dr. Nidhi Dawn Neutrophils/100 WBC (Bld) 72.4 % Normal 43.0-75.0 [facility] Comment on above: Performed By: #### C BC #### [facility] [address] [place] [address] Dr. Nidhi Dawn Platelet mean volume (Bld) [Entitic vol] 10.1 fL Normal 9.5-13.5 [facility] Comment on above: Performed By: #### C BC #### [facility] [address] [place] [address] Dr. Nidhi Dawn PLT 174 103/ul Normal 150-450 [facility] Comment on above: Performed By: #### C BC #### [facility] [address] [place] [address] Dr. Nidhi Dawn RBC 3.07 106/ul Critically low 4.20-5.40 [facility] Comment on above: Performed By: #### C BC #### [facility] [address] [place] [address] Dr. Nidhi Dawn WBC 7.8 103/ul Normal 4.0-11.0 [facility] Comment on above: Performed By: #### C BC #### [facility] [address] [place] [address] Dr. Nidhi Dawn PROF CHEM 8 (BAS METB)on Anion gap [Moles/Vol] 11.2 mmol/L Normal [facility] Comment on above: Performed By: #### B MP #### [facility] [address] [place] [address] Dr. Nidhi Dawn Calcium [Mass/Vol] 8.4 mg/dL Critically low 8.5-10.1 [facility] Comment on above: Performed By: #### B MP #### [facility] [address] [place] [address] Dr. Nidhi Dawn Chloride [Moles/Vol] 100 mmol/L Normal 98-107 [facility] Comment on above: Performed By: #### B MP #### [facility] [address] [place] [address] Dr. Nidhi Dawn CO2 [Moles/Vol] 27.4 mmol/L Normal 21.0-32.0 [facility] Comment on above: Performed By: #### B MP #### [facility] [address] [address] [address] Nidhi Dawn Creatinine [Mass/Vol] 0.56 mg/dL Normal 0.55-1.02 [facility] Comment on above: Performed By: #### B MP #### [facility] [address] [address] [address] Nidhi Dawn EGFR-AF FAROESE >60 Normal >=60 [facility] Comment on above: Performed By: #### B MP #### [facility] [address] [address] [address] Nidhi Dawn EGFR-NON AF FAROESE >60 Normal >=60 [facility] Comment on above: Performed By: #### B MP #### [facility] [address] [address] [address] Nidhi Dawn Glucose [Mass/Vol] 113 mg/dL Critically high 74-106 T [facility] Comment on above: Performed By: #### B MP #### [facility] [address] [address] [address] Nidhi Dawn Potassium [Moles/Vol] 3.6 mmol/L Normal 3.5-5.1 [facility] Comment on above: Performed By: #### B MP #### [facility] [address] [address] [address] Nidhi Dawn Sodium [Moles/Vol] 135 mmol/L Critically low 136-145 Th [facility] Comment on above: Performed By: #### B MP #### [facility] [address] [address] [address] Nidhi Dawn Urea nitrogen [Mass/Vol] 14.0 mg/dL Normal 7.0-18.0 [facility] Comment on above: Performed By: #### B MP #### [facility] [address] [address] [address] Nidhi Dawn Urea nitrogen/Creatinine [Mass ratio] 25.0 mg/mg Normal [facility] Comment on above: Performed By: #### B MP #### [facility] [address] [address] [address] Nidhi Dawn CBC AUTO DIFFon 04-02-2022 BASO # 0.0 103/ul Normal 0.0-0.1 [facility] Comment on above: Performed By: #### C BC #### [facility] [address] [place] [address] Dr. Nidhi Dawn Basophils/100 WBC (Bld) 0.3 % Normal 0.2-2.0 [facility] Comment on above: Performed By: #### C BC #### [facility] [address] [place] [address] Dr. Nidhi Dawn EO # 0.1 103/ul Normal 0.0-0.7 [facility] Comment on above: Performed By: #### C BC #### [facility] [address] [place] [address] Dr. Nidhi Dawn Eosinophils/100 WBC (Bld) 0.8 % Critically low 0.9-7.0 [facility] Comment on above: Performed By: #### C BC #### [facility] [address] [place] [address] Dr. Nidhi Dawn Erythrocyte distribution width (RBC) [Ratio] 13.8 % Normal 11.0-15.0 [facility] Comment on above: Performed By: #### C BC #### [facility] [address] [place] [address] Dr. Nidhi Dawn Hematocrit (Bld) [Volume fraction] 30.1 % Critically low 36.0-48.0 [facility] Comment on above: Performed By: #### C BC #### [facility] [address] [place] [address] Dr. Nidhi Dawn Hemoglobin (Bld) [Mass/Vol] 10.1 g/dL Critically low 12.0-16.0 [facility] Comment on above: Performed By: #### C BC #### [facility] [address] [place] [address] Dr. Nidhi Dawn IG # 0.03 10e3/ul Normal 0.00-0.03 [facility] Comment on above: Performed By: #### C BC #### [facility] [address] [place] [address] Dr. Nidhi Dawn IG % 0.3 % Normal 0.0-0.5 [facility] Comment on above: Performed By: #### C BC #### [facility] [address] [place] [address] Dr. Nidhi Dawn LYMPH # 1.0 103/ul Critically low 1.2-3.8 [facility] Comment on above: Performed By: #### C BC #### [facility] [address] [place] [address] Dr. Nidhi Dawn Lymphocytes/100 WBC (Bld) 10.6 % Critically low 20.5-60.0 [facility] Comment on above: Performed By: #### C BC #### [facility] [address] [place] [address] Dr. Nidhi Dawn MANUAL DIFF REQ NO Normal [facility] Comment on above: Performed By: #### C BC #### [facility] [address] [place] [address] Dr. Nidhi Dawn MCH (RBC) [Entitic mass] 30.7 pg Normal 26.7-34.0 [facility] Comment on above: Performed By: #### C BC #### [facility] [address] [place] [address] Dr. Nidhi Dawn MCHC (RBC) [Mass/Vol] 33.6 g/dL Normal 29.9-35.2 [facility] Comment on above: Performed By: #### C BC #### [facility] [address] [place] [address] Dr. Nidhi Dawn MCV (RBC) [Entitic vol] 91.5 fL Normal 81.0-99.0 [facility] Comment on above: Performed By: #### C BC #### [facility] [address] [place] [address] Dr. Nidhi Dawn MONO # 1.0 103/ul Critically high 0.3-0.8 [facility] Comment on above: Performed By: #### C BC #### [facility] [address] [place] [address] Dr. Nidhi Dawn Monocytes/100 WBC (Bld) 10.3 % Normal 1.7-12.0 [facility] Comment on above: Performed By: #### C BC #### [facility] [address] [place] [address] Dr. Nidhi Dawn NEUT # 7.4 103/ul Critically high 1.4-6.5 [facility] Comment on above: Performed By: #### C BC #### [facility] [address] [place] [address] Dr. Nidhi Dawn Neutrophils/100 WBC (Bld) 77.7 % Critically high 43.0-75.0 [facility] Comment on above: Performed By: #### C BC #### [facility] [address] [place] [address] Dr. Nidhi Dawn Platelet mean volume (Bld) [Entitic vol] 10.0 fL Normal 9.5-13.5 [facility] Comment on above: Performed By: #### C BC #### [facility] [address] [place] [address] Dr. Nidhi Dawn PLT 175 103/ul Normal 150-450 [facility] Comment on above: Performed By: #### C BC #### [facility] [address] [place] [address] Dr. Nidhi Dawn RBC 3.29 106/ul Critically low 4.20-5.40 [facility] Comment on above: Performed By: #### C BC #### [facility] [address] [place] [address] Dr. Nidhi Dawn WBC 9.5 103/ul Normal 4.0-11.0 [facility] Comment on above: Performed By: #### C BC #### [facility] [address] [place] [address] Dr. Nidhi Dawn ER URINE PROFILEon 2 Bilirubin Ql (U) Negative Normal NEGATIVE [facility] Comment on above: Performed By: #### C MP, CMADM #### [facility] [address] [place] [address] Dr. Nidhi Dawn Clarity (U) CLEAR Normal CLEAR [facility] Comment on above: Performed By: #### C MP, CMADM #### [facility] [address] [place] [address] Dr. Nidhi Dawn Color (U) YELLOW Normal YELLOW [facility] Comment on above: Performed By: #### C MP, CMADM #### [facility] [address] [place] [address] Dr. Nidhi TERRAZAS A micrscopic examina tion will be performed if indicated. Normal [facility] Comment on above: Performed By: #### C MP, CMADM #### [facility] [address] [place] [address] Dr. Nidhi Dawn Glucose Ql (U) Negative Normal NEGATIVE [facility] Comment on above: Performed By: #### C MP, CMADM #### [facility] [address] [place] [address] Dr. Nidhi Dawn Hemoglobin Ql (U) MODERATE Abnormal NEGATIVE [facility] Comment on above: Performed By: #### C MP, CMADM #### [facility] [address] [place] [address] Dr. Nidhi Dawn Ketones Ql (U) TRACE Abnormal NEGATIVE [facility] Comment on above: Performed By: #### C MP, CMADM #### [facility] [address] [place] [address] Dr. Nidhi Dawn LEUKOCYTES MODERATE Abnormal NEGATIVE [facility] Comment on above: Performed By: #### C MP, CMADM #### [facility] [address] [place] [address] Dr. Nidhi Dawn Nitrite Ql (U) Positive Abnormal NEGATIVE [facility] Comment on above: Performed By: #### C MP, CMADM #### [facility] [address] [place] [address] Dr. Nidhi Dawn pH (U) [pH] Abnormal 5-9 [facility] Comment on above: Performed By: #### C MP, CMADM #### [facility] [address] [place] [address] Dr. Nidhi Dawn Protein (U) [Mass/Vol] 100 mg/dL Abnormal NEGAT GRIFFIN/ TRACE [facility] Comment on above: Performed By: #### C HELENA CARCAMO #### [facility] [address] [place] [address] Dr. Nidhi Dawn SPEC GRAVITY <=1.005 Abnormal 1.005-<=1.0 25 [facility] Comment on above: Performed By: #### C LEONCIO CARCAMODM #### [facility] [address] [place] [address] Dr. Nidhi Dawn UR MICRO IND INDICATED Normal [facility] Comment on above: Performed By: #### C HELENA CARCAMO #### [facility] [address] [place] [address] Dr. Nidhi Dawn Urobilinogen Qn (U) 1.0 {Lawrence'U}/dL Normal 0.2 - 1. 0 [facility] Comment on above: Performed By: #### C HELENA CARCAMO #### [facility] [address] [place] [address] Dr. Nidhi Dawn FREE T3on 04-02-2022 FREE T3 1.84 pg/mlL Critically low 2.18-3.98 [facility] Comment on above: Performed By: #### C BC #### [facility] [address] [place] [address] Dr. Nidhi Dawn PROF CHEM 8 (BAS METB)on Anion gap [Moles/Vol] 10.9 mmol/L Normal [facility] Comment on above: Performed By: #### C BC #### [facility] [address] [place] [address] Dr. Nidhi Dawn Calcium [Mass/Vol] 8.6 mg/dL Normal 8.5-10.1 [facility] Comment on above: Performed By: #### C BC #### [facility] [address] [place] [address] Dr. Nidhi Dawn Chloride [Moles/Vol] 102 mmol/L Normal 98-107 [facility] Comment on above: Performed By: #### C BC #### [facility] [address] [address] [address] Nidhi Dawn CO2 [Moles/Vol] 24.9 mmol/L Normal 21.0-32.0 [facility] Comment on above: Performed By: #### C BC #### [facility] [address] [address] [address] Nidhi Dawn Creatinine [Mass/Vol] 0.42 mg/dL Critically low 0.55-1.02 [facility] Comment on above: Performed By: #### C BC #### [facility] [address] [address] [address] Nidhi Dawn EGFR-AF FAROESE >60 Normal >=60 [facility] Comment on above: Performed By: #### C BC #### [facility] [address] [place] [address] Dr. Nidhi Dawn EGFR-NON AF FAROESE >60 Normal >=60 [facility] Comment on above: Performed By: #### C BC #### [facility] [address] [place] [address] Dr. Nidhi Dawn Glucose [Mass/Vol] 103 mg/dL Normal 74-106 [facility] Comment on above: Performed By: #### C BC #### [facility] [address] [place] [address] Dr. Nidhi Dawn Potassium [Moles/Vol] 3.8 mmol/L Normal 3.5-5.1 [facility] Comment on above: Performed By: #### C BC #### [facility] [address] [place] [address] Dr. Nidhi Dawn Sodium [Moles/Vol] 134 mmol/L Critically low 136-145 Th [facility] Comment on above: Performed By: #### C BC #### [facility] [address] [place] [address] Dr. Nidhi Dawn Urea nitrogen [Mass/Vol] 14.0 mg/dL Normal 7.0-18.0 [facility] Comment on above: Performed By: #### C BC #### [facility] [address] [place] [address] Dr. Nidhi Dawn Urea nitrogen/Creatinine [Mass ratio] 33.3 mg/mg Normal [facility] Comment on above: Performed By: #### C BC #### [facility] [address] [place] [address] Dr. Nidhi Dawn URINE MICROSCOPIC ONLYon BACTERIA MODERATE Abnormal NONE SEEN [facility] Comment on above: Performed By: #### C MP, CMADM #### [facility] [address] [place] [address] Dr. Nidhi Dawn Bacteria identified Cx Nom (U) INDICATED Normal [facility] Comment on above: Performed By: #### C MP, CMADM #### [facility] [address] [place] [address] Dr. Nidhi Dawn CAST NONE SEEN Normal NONE SEEN [facility] Comment on above: Performed By: #### C MP, CMADM #### [facility] [address] [place] [address] Dr. Nidhi Dawn Crystals LM Nom (Urine sed) NONE SEEN Normal NONE SEEN [facility] Comment on above: Performed By: #### C MP, CMADM #### [facility] [address] [place] [address] Dr. Nidhi Dawn Epithelial cells LM Ql (Urine sed) RARE Normal NONE SEEN /RARE [facility] Comment on above: Performed By: #### C MP, CMADM #### [facility] [address] [place] [address] Dr. Nidhi Dawn MUCOUS TRACE Abnormal NONE SEEN [facility] Comment on above: Performed By: #### C MP, CMADM #### [facility] [address] [place] [address] Dr. Nidhi Dawn RBC 5-10 Abnormal 0-2 [facility] Comment on above: Performed By: #### C MP, CMADM #### [facility] [address] [place] [address] Dr. Nidhi Dawn WBC 10-20 Abnormal NONE SEEN [facility] Comment on above: Performed By: #### C MP, CMADM #### [facility] [address] [place] [address] Dr. Nidhi Dawn CBC AUTO DIFFon 04-01-2022 BASO # 0.0 103/ul Normal 0.0-0.1 [facility] Comment on above: Performed By: #### C BC #### [facility] [address] [place] [address] Dr. Nidhi Dawn Basophils/100 WBC (Bld) 0.1 % Critically low 0.2-2.0 [facility] Comment on above: Performed By: #### C BC #### [facility] [address] [place] [address] Dr. Nidhi Dawn EO # 0.0 103/ul Normal 0.0-0.7 [facility] Comment on above: Performed By: #### C BC #### [facility] [address] [place] [address] Dr. Nidhi Dawn Eosinophils/100 WBC (Bld) 0.1 % Critically low 0.9-7.0 [facility] Comment on above: Performed By: #### C BC #### [facility] [address] [place] [address] Dr. Nidhi Dawn Erythrocyte distribution width (RBC) [Ratio] 13.9 % Normal 11.0-15.0 [facility] Comment on above: Performed By: #### C BC #### [facility] [address] [place] [address] Dr. Nidhi Dawn Hematocrit (Bld) [Volume fraction] 31.4 % Critically low 36.0-48.0 [facility] Comment on above: Performed By: #### C BC #### [facility] [address] [place] [address] Dr. Nidhi Dawn Hemoglobin (Bld) [Mass/Vol] 10.3 g/dL Critically low 12.0-16.0 [facility] Comment on above: Performed By: #### C BC #### [facility] [address] [place] [address] Dr. Nidhi Dawn IG # 0.03 10e3/ul Normal 0.00-0.03 [facility] Comment on above: Performed By: #### C BC #### [facility] [address] [place] [address] Dr. Nidhi Dawn IG % 0.3 % Normal 0.0-0.5 [facility] Comment on above: Performed By: #### C BC #### [facility] [address] [place] [address] Dr. Nidhi Dawn LYMPH # 1.3 103/ul Normal 1.2-3.8 [facility] Comment on above: Performed By: #### C BC #### [facility] [address] [place] [address] Dr. Nidhi Dawn Lymphocytes/100 WBC (Bld) 13.5 % Critically low 20.5-60.0 [facility] Comment on above: Performed By: #### C BC #### [facility] [address] [place] [address] Dr. Nidhi Dawn MANUAL DIFF REQ NO Normal [facility] Comment on above: Performed By: #### C BC #### [facility] [address] [place] [address] Dr. iNdhi Dawn MCH (RBC) [Entitic mass] 30.3 pg Normal 26.7-34.0 [facility] Comment on above: Performed By: #### C BC #### [facility] [address] [place] [address] Dr. Nidhi Dawn MCHC (RBC) [Mass/Vol] 32.8 g/dL Normal 29.9-35.2 [facility] Comment on above: Performed By: #### C BC #### [facility] [address] [place] [address] Dr. Nidhi Dawn MCV (RBC) [Entitic vol] 92.4 fL Normal 81.0-99.0 [facility] Comment on above: Performed By: #### C BC #### [facility] [address] [place] [address] Dr. Nidhi Dawn MONO # 1.1 103/ul Critically high 0.3-0.8 [facility] Comment on above: Performed By: #### C BC #### [facility] [address] [place] [address] Dr. Nidhi Dawn Monocytes/100 WBC (Bld) 11.1 % Normal 1.7-12.0 [facility] Comment on above: Performed By: #### C BC #### [facility] [address] [place] [address] Dr. Ndihi Dawn NEUT # 7.4 103/ul Critically high 1.4-6.5 [facility] Comment on above: Performed By: #### C BC #### [facility] [address] [place] [address] Dr. Nidhi Dawn Neutrophils/100 WBC (Bld) 74.9 % Normal 43.0-75.0 [facility] Comment on above: Performed By: #### C BC #### [facility] [address] [place] [address] Dr. Nidhi Dawn Platelet mean volume (Bld) [Entitic vol] 9.9 fL Normal 9.5-13.5 [facility] Comment on above: Performed By: #### C BC #### [facility] [address] [place] [address] Dr. Nidhi Dawn PLT 219 103/ul Normal 150-450 [facility] Comment on above: Performed By: #### C BC #### [facility] [address] [place] [address] Dr. Nidhi Dawn RBC 3.40 106/ul Critically low 4.20-5.40 [facility] Comment on above: Performed By: #### C BC #### [facility] [address] [place] [address] Dr. Nidhi Dawn WBC 9.9 103/ul Normal 4.0-11.0 [facility] Comment on above: Performed By: #### C BC #### [facility] [address] [place] [address] Dr. Nidhi Dawn PROF CHEM 8 (BAS METB)on Anion gap [Moles/Vol] 9.7 mmol/L Normal [facility] Comment on above: Performed By: #### B MP #### [facility] [address] [place] [address] Dr. Nidhi Dawn Calcium [Mass/Vol] 8.5 mg/dL Normal 8.5-10.1 [facility] Comment on above: Performed By: #### B MP #### [facility] [address] [place] [address] Dr. Nidhi Dawn Chloride [Moles/Vol] 102 mmol/L Normal 98-107 [facility] Comment on above: Performed By: #### B MP #### [facility] [address] [place] [address] Dr. Nidhi Dawn CO2 [Moles/Vol] 28.8 mmol/L Normal 21.0-32.0 [facility] Comment on above: Performed By: #### B MP #### [facility] [address] [place] [address] Dr. Nidhi Dawn Creatinine [Mass/Vol] 0.54 mg/dL Critically low 0.55-1.02 [facility] Comment on above: Performed By: #### B MP #### [facility] [address] [place] [address] Dr. Nidhi Dawn EGFR-AF FAROESE >60 Normal >=60 [facility] Comment on above: Performed By: #### B MP #### [facility] [address] [place] [address] Dr. Nidhi Dawn EGFR-NON AF FAROESE >60 Normal >=60 [facility] Comment on above: Performed By: #### B MP #### [facility] [address] [place] [address] Dr. Nidhi Dawn Glucose [Mass/Vol] 108 mg/dL Critically high 74-106 [facility] Comment on above: Performed By: #### B MP #### [facility] [address] [place] [address] Dr. Nidhi Dawn Potassium [Moles/Vol] 3.5 mmol/L Normal 3.5-5.1 [facility] Comment on above: Performed By: #### B MP #### [facility] [address] [place] [address] Dr. Nidhi Dawn Sodium [Moles/Vol] 137 mmol/L Normal 136-145 [facility] Comment on above: Performed By: #### B MP #### [facility] [address] [place] [address] Dr. Nidhi Dawn Urea nitrogen [Mass/Vol] 14.0 mg/dL Normal 7.0-18.0 [facility] Comment on above: Performed By: #### B MP #### [facility] [address] [place] [address] Dr. Nidhi Dawn Urea nitrogen/Creatinine [Mass ratio] 25.9 mg/mg Normal [facility] Comment on above: Performed By: #### B MP #### [facility] [address] [place] [address] Dr. Nidhi Dawn CARDIAC CELESTINO ADMITon 022 CK [Catalytic activity/Vol] 60 U/L Normal 26-192 [facility] Comment on above: Performed By: #### C BC #### [facility] [address] [place] [address] Dr. Nidhi Dawn CK.MB [Mass/Vol] 2.29 ng/mL Normal <=3.60 [facility] Comment on above: Performed By: #### C BC #### [facility] [address] [place] [address] Dr. Nidhi Dawn HSTROP 5.8 pg/mL Normal 4.0-51.3 [facility] Comment on above: Result Comment: CUT- OFF POINTS HAVE BEEN ESTABLISHED BASED ON THE FOURTH UNIVERSAL DEFINITIONS OF MYOCARDIAL INFARCTION. THE UPPER REFERENCE LIMIT (URL) OF TROPONIN, DEFINED THE 99TH PERCENTILE OF cTnI DISTRIBUTION IN A REFERENCE POPULATION, HAS BEEN CONFIRMED THE DECISION THRESHOLD FOR MD DIAGNOSIS. Performed By: #### C BC #### [facility] [address] [place] [address] Dr. Nidhi Dawn BOBBY 63 ng/mL Normal 9-82 [facility] Comment on above: Performed By: #### C BC #### [facility] [address] [place] [address] Dr. Nidhi Dawn CBC AUTO DIFFon 03-31-2022 BASO # 0.0 103/ul Normal 0.0-0.1 [facility] Comment on above: Performed By: #### C BC #### [facility] [address] [address] [address] Nidhi Dawn Basophils/100 WBC (Bld) 0.3 % Normal 0.2-2.0 [facility] Comment on above: Performed By: #### C BC #### [facility] [address] [address] [address] Nidhi Dawn EO # 0.0 103/ul Normal 0.0-0.7 [facility] Comment on above: Performed By: #### C BC #### [facility] [address] [place] [address] Dr. Nidhi Dawn Eosinophils/100 WBC (Bld) 0.3 % Critically low 0.9-7.0 [facility] Comment on above: Performed By: #### C BC #### [facility] [address] [place] [address] Dr. Nidhi Dawn Erythrocyte distribution width (RBC) [Ratio] 13.8 % Normal 11.0-15.0 [facility] Comment on above: Performed By: #### C BC #### [facility] [address] [place] [address] Dr. Nidhi Dawn Hematocrit (Bld) [Volume fraction] 39.3 % Normal 36.0-48.0 [facility] Comment on above: Performed By: #### C BC #### [facility] [address] [place] [address] Dr. Nidhi Dawn Hemoglobin (Bld) [Mass/Vol] 12.8 g/dL Normal 12.0-16.0 [facility] Comment on above: Performed By: #### C BC #### [facility] [address] [place] [address] Dr. Nidhi Dawn IG # 0.10 10e3/ul Critically high 0.00-0.03 [facility] Comment on above: Performed By: #### C BC #### [facility] [address] [place] [address] Dr. Nidhi Dawn IG % 0.8 % Critically high 0.0-0.5 [facility] Comment on above: Performed By: #### C BC #### [facility] [address] [place] [address] Dr. Nidhi Dawn LYMPH # 1.1 103/ul Critically low 1.2-3.8 [facility] Comment on above: Performed By: #### C BC #### [facility] [address] [place] [address] Dr. Nidhi Dawn Lymphocytes/100 WBC (Bld) 9.3 % Critically low 20.5-60.0 [facility] Comment on above: Performed By: #### C BC #### [facility] [address] [place] [address] Dr. Nidhi Dawn MANUAL DIFF REQ NO Normal [facility] Comment on above: Performed By: #### C BC #### [facility] [address] [place] [address] Dr. Nidhi Dawn MCH (RBC) [Entitic mass] 30.0 pg Normal 26.7-34.0 [facility] Comment on above: Performed By: #### C BC #### [facility] [address] [place] [address] Dr. Nidhi Dawn MCHC (RBC) [Mass/Vol] 32.6 g/dL Normal 29.9-35.2 [facility] Comment on above: Performed By: #### C BC #### [facility] [address] [place] [address] Dr. Nidhi Dawn MCV (RBC) [Entitic vol] 92.3 fL Normal 81.0-99.0 [facility] Comment on above: Performed By: #### C BC #### [facility] [address] [place] [address] Dr. Nidhi Dawn MONO # 0.8 103/ul Normal 0.3-0.8 [facility] Comment on above: Performed By: #### C BC #### [facility] [address] [place] [address] Dr. Nidhi Dawn Monocytes/100 WBC (Bld) 6.6 % Normal 1.7-12.0 [facility] Comment on above: Performed By: #### C BC #### [facility] [address] [place] [address] Dr. Nidhi Dawn NEUT # 9.8 103/ul Critically high 1.4-6.5 [facility] Comment on above: Performed By: #### C BC #### [facility] [address] [address] [address] Nidhi Dawn Neutrophils/100 WBC (Bld) 82.7 % Critically high 43.0-75.0 [facility] Comment on above: Performed By: #### C BC #### [facility] [address] [address] [address] Nidhi Dawn Platelet mean volume (Bld) [Entitic vol] 9.3 fL Critically low 9.5-13.5 [facility] Comment on above: Performed By: #### C BC #### [facility] [address] [place] [address] Dr. Nidhi Dawn PLT 284 103/ul Normal 150-450 [facility] Comment on above: Performed By: #### C BC #### [facility] [address] [address] [address] Nidhi Dawn RBC 4.26 106/ul Normal 4.20-5.40 [facility] Comment on above: Performed By: #### C BC #### [facility] [address] [address] [address] Nidhi Dawn WBC 11.8 103/ul Critically high 4.0-11.0 [facility] Comment on above: Performed By: #### C BC #### [facility] [address] [place] [address] CHEST W CONon [...] by: TAYLOR PENA Date: 2022-03-31 14:36 Normal [facility] CT CSPINE WO CONon CT CSPINE WO [...] by: TAYLOR PENA Date: 2022-03-31 14:48 Normal [facility] CT HEAD WO CONon 03-31-2022 CT HEAD [...] TAYLOR PENA Date: 2022-03-31 14:11 Normal [facility] CT LSPINE WO CONon CT LSPINE WO CON EXAMINATION: CT LSPI [...] TAYLOR PENA Date: 2022-03-31 14:27 Normal [facility]on SARS-CoV-2 (COVID-19) RNA COLLINS+probe Ql (Unsp spec) Not detected Normal NOT DETECTED [facility] Comment on above: Result Comment: When [...] for this test is supported by the [place] of Health and Human Service's declaration that [...] longer be used). Performed By: #### C VDTBH #### [facility] [address] [place] [address] Dr. Nidhi Dawn PROF 14(COMP METB)on 022 Albumin [Mass/Vol] 3.7 g/dL Normal 3.4-5.0 [facility] Comment on above: Performed By: #### C BC #### [facility] [address] [place] [address] Dr. Nidhi Dawn Albumin/Globulin [Mass ratio] 1.2 {ratio} Normal [facility] Comment on above: Performed By: #### C BC #### [facility] [address] [place] [address] Dr. Nidhi Dawn ALP [Catalytic activity/Vol] 55 U/L Normal 46-116 [facility] Comment on above: Performed By: #### C BC #### [facility] [address] [place] [address] Dr. Nidhi Dawn ALT [Catalytic activity/Vol] 24 U/L Normal 14-59 [facility] Comment on above: Performed By: #### C BC #### [facility] [address] [place] [address] Dr. Nidhi Dawn Anion gap [Moles/Vol] 9.2 mmol/L Normal [facility] Comment on above: Performed By: #### C BC #### [facility] [address] [place] [address] Dr. Nidhi Dawn AST [Catalytic activity/Vol] 19 U/L Normal 15-37 [facility] Comment on above: Performed By: #### C BC #### [facility] [address] [place] [address] Dr. Nidhi Dawn Bilirubin [Mass/Vol] 0.5 mg/dL Normal 0.2-1.0 [facility] Comment on above: Performed By: #### C BC #### [facility] [address] [place] [address] Dr. Nidhi Dawn Calcium [Mass/Vol] 9.1 mg/dL Normal 8.5-10.1 [facility] Comment on above: Performed By: #### C BC #### [facility] [address] [place] [address] Dr. Nidhi Dawn Chloride [Moles/Vol] 103 mmol/L Normal 98-107 [facility] Comment on above: Performed By: #### C BC #### [facility] [address] [address] [address] Nidhi Dawn CO2 [Moles/Vol] 28.0 mmol/L Normal 21.0-32.0 [facility] Comment on above: Performed By: #### C BC #### [facility] [address] [place] [address] Dr. Nidhi Dawn Creatinine [Mass/Vol] 0.56 mg/dL Normal 0.55-1.02 [facility] Comment on above: Performed By: #### C BC #### [facility] [address] [place] [address] Dr. Nidhi Dawn EGFR-AF FAROESE >60 Normal >=60 [facility] Comment on above: Performed By: #### C BC #### [facility] [address] [place] [address] Dr. Nidhi Dawn EGFR-NON AF FAROESE >60 Normal >=60 [facility] Comment on above: Performed By: #### C BC #### [facility] [address] [place] [address] Dr. Nidhi Dawn Globulin (S) [Mass/Vol] 3.2 g/dL Normal [facility] Comment on above: Performed By: #### C BC #### [facility] [address] [place] [address] Dr. Nidhi Dawn Glucose [Mass/Vol] 140 mg/dL Critically high 74-106 [facility] Comment on above: Performed By: #### C BC #### [facility] [address] [place] [address] Dr. Nidhi Dawn Potassium [Moles/Vol] 3.2 mmol/L Critically low 3.5-5.1 [facility] Comment on above: Performed By: #### C BC #### [facility] [address] [place] [address] Dr. Nidhi Dawn Protein [Mass/Vol] 6.9 g/dL Normal 6.4-8.2 [facility] Comment on above: Performed By: #### C BC #### [facility] [address] [place] [address] Dr. Nidhi Dawn Sodium [Moles/Vol] 137 mmol/L Normal 136-145 [facility] Comment on above: Performed By: #### C BC #### [facility] [address] [place] [address] Dr. Nidhi Dawn Urea nitrogen [Mass/Vol] 13.0 mg/dL Normal 7.0-18.0 [facility] Comment on above: Performed By: #### C BC #### [facility] [address] [place] [address] Dr. Nidhi Dawn Urea nitrogen/Creatinine [Mass ratio] 23.2 mg/mg Normal [facility] Comment on above: Performed By: #### C BC #### [facility] [address] [place] [address] Dr. Nidhi Dawn PROTIMEon 03-31-2022 INR Coag (PPP) [Relative time] 1.01 {INR} Normal [facility] Comment on above: Performed By: #### C BC #### [facility] [address] [place] [address] Dr. Nidhi Dawn INR GUIDELINES SEE BELOW Normal [facility] Comment on above: Result Comment: BASSEM RED INR: 2.0 - 3.0 CONDITIONS NOT LISTED BELOW 2.5 - 3.5 FOR PROSTHETIC HEART VALVE REPLACEMENT 2.5 - 3.5 RECURRENT THROMBOSIS Performed By: #### C BC #### [facility] [address] [place] [address] Dr. Nidhi Dawn PT Coag (PPP) [Time] 10.9 s Normal 9.0-11.6 [facility] Comment on above: Performed By: #### C BC #### [facility] [address] [place] [address] Dr. Nidhi Dawn PTTon 03-31-2022 aPTT Coag (Bld) [Time] 25.7 s Normal 22.3-36.2 [facility] Comment on above: Performed By: #### C BC #### [facility] [address] [place], [place] [address] Dr. Nidhi Dawn TSHon 03-31-2022 TSH 3.763 uIU/mL Critically high 0.358-3.740 [facility] Comment on above: Performed By: #### C BC #### [facility] [address] [place], [place] [address] Dr. Nidhi Dawn XR HIP RT 2 [...] AVEL BUENO Date: 2022-03-31 14:33 Normal [facility] XR HIP RT 2 3V W [...] by: KANDIS KENNY Date: 2021-12-14 21:43 Normal [facility] CT PELVIS WO CONon CT PELVIS WO [...] by: ISRAEL JUÁREZ Date: 2021-12-13 18:51 Normal [facility] Vital Signs Date Time Vital Sign Value Performing Clinician Facility 10-25-2023 11:40-0400 Body height 149.9 cm Ashley ALMONTE Work Phone: [facility] 10-25-2023 11:40-0400 Body mass index (BMI) [Ratio] 19.09 kg/m2 Ashley Olvera APRN-COAL DIGGER Work Phone: [facility] 10-25-2023 11:40-0400 Body temperature 97.39 [degF] Ashley Olvera APRN-COAL DIGGER Work Phone: [facility] 10-25-2023 11:40-0400 Body weight 42.87 kg Ashley Olvera APRN-COAL DIGGER Work Phone: [facility] 10-25-2023 11:40-0400 Diastolic blood pressure 62 mm[Hg] Ashley Olvera APRN-COAL DIGGER Work Phone: [facility] 10-25-2023 11:40-0400 Heart rate 57 /min Ashley Olvera APRN-COAL DIGGER Work Phone: [facility] 10-25-2023 11:40-0400 Respiratory rate 18 /min Ashley Olvera APRN-COAL DIGGER Work Phone: [facility] 10-25-2023 11:40-0400 SaO2% (BldA) [Mass fraction] 99 % Ashley Olvera APRN-COAL DIGGER Work Phone: [facility] 10-25-2023 11:40-0400 Systolic blood pressure 120 mm[Hg] Ashley Olvera APRN-COAL DIGGER Work Phone: [facility] 10-09-2023 11:45-0400 Body height 149.9 cm Ashley Olvera APRN-COAL DIGGER Work Phone: [facility] 10-09-2023 11:45-0400 Body mass index (BMI) [Ratio] 18.46 kg/m2 Ashley Olvera APRN-COAL DIGGER Work Phone: [facility] 10-09-2023 11:45-0400 Body temperature 97.3 [degF] Ashley Olvera APRN-COAL DIGGER Work Phone: [facility] 10-09-2023 11:45-0400 Body weight 41.46 kg Ashley Olvera APRN-COAL DIGGER Work Phone: [facility] 10-09-2023 11:45-0400 Diastolic blood pressure 60 mm[Hg] Ashley Olvera APRN-COAL DIGGER Work Phone: [facility] 10-09-2023 11:45-0400 Heart rate 70 /min Ashley Olvera APRN-COAL DIGGER Work Phone: [facility] 10-09-2023 11:45-0400 Respiratory rate 22 /min Ashley Olvera APRN-COAL DIGGER Work Phone: [facility] 10-09-2023 11:45-0400 SaO2% (BldA) [Mass fraction] 100 % Ashley Olvera APRN-COAL DIGGER Work Phone: [facility] 10-09-2023 11:45-0400 Systolic blood pressure 128 mm[Hg] Ashley Olvera APRN-COAL DIGGER Work Phone: [facility] 09-27-2023 15:42-0500 Body height 149.9 cm Ashley Olvera APRN-COAL DIGGER Work Phone: [facility] 09-27-2023 15:42-0500 Body mass index (BMI) [Ratio] 19.79 kg/m2 Aslhey Olvera APRN-COAL DIGGER Work Phone: [facility] 09-27-2023 15:42-0500 Body temperature 98.01 [degF] Ashley Olvera APRN-COAL DIGGER Work Phone: [facility] 09-27-2023 15:42-0500 Body weight 44.45 kg Ashley Olvera APRN-COAL DIGGER Work Phone: [facility] 09-27-2023 15:42-0500 Diastolic blood pressure 80 mm[Hg] Ashley Olvera APRN-COAL DIGGER Work Phone: [facility] 09-27-2023 15:42-0500 Heart rate 59 /min Ashley Olvera APRN-COAL DIGGER Work Phone: [facility] 09-27-2023 15:42-0500 Respiratory rate 18 /min Ashley Olvera APRN-COAL DIGGER Work Phone: [facility] 09-27-2023 15:42-0500 SaO2% (BldA) [Mass fraction] 93 % Ashley Olvera APRN-COAL DIGGER Work Phone: [facility] 09-27-2023 15:42-0500 Systolic blood pressure 122 mm[Hg] Ashley Olvera RUBBER VULCANIZING MACHINE OPERATOR-COAL DIGGER Work Phone: [facility] 10-03-2022 16:00-0400 Body temperature 97.6 [degF] EXCELSIOR MACHINE FEEDER-C Ashley Olvera Work Phone: [facility] 10-03-2022 16:00-0400 Diastolic blood pressure 79 mm[Hg] EXCELSIOR MACHINE FEEDER-C Ashley Olvera Work Phone: [facility] 10-03-2022 16:00-0400 Heart rate 77 /min EXCELSIOR MACHINE FEEDER-C Ashley Olvera Work Phone: [facility] 10-03-2022 16:00-0400 Respiratory rate 16 /min EXCELSIOR MACHINE FEEDER-C Ashley Olvera Work Phone: [facility] 10-03-2022 16:00-0400 SaO2% (BldA) [Mass fraction] 100 % EXCELSIOR MACHINE FEEDER-C Ashley Olvera Work Phone: [facility] 10-03-2022 16:00-0400 Systolic blood pressure 156 mm[Hg] EXCELSIOR MACHINE FEEDER-C Ashley Olvera Work Phone: [facility] 10-02-2022 20:00-0400 Inhaled oxygen flow rate 2 L/min EXCELSIOR MACHINE FEEDER-C Ashley Olvera Work Phone: [facility] 09-29-2022 06:00-0500 Body weight 49 kg EXCELSIOR MACHINE FEEDER-C Ashley Olvera Work Phone: [facility] 09-28-2022 16:10-0500 Body height 147.32 cm EXCELSIOR MACHINE FEEDER-C Ashley Olvera Work Phone: [facility] 09-28-2022 16:10-0500 Body mass index (BMI) [Ratio] 18.6 kg/m2 EXCELSIOR MACHINE FEEDER-C Ashley Olvera Work Phone: [facility] 12-13-2021 16:30-0400 Body height 152.4 cm Rylie Galvan Other [facility] Other 12-13-2021 16:30-0400 Body mass index (BMI) [Ratio] 19.33 kg/m2 Rylie Galvan Other [facility] Other 12-13-2021 16:30-0400 Body temperature 98 [degF] Rylie Galvan Other [facility] Other 12-13-2021 16:30-0400 Body weight 44.91 kg Rylie Galvan Other [facility] Other 12-13-2021 16:30-0400 Diastolic blood pressure 83 mm[Hg] Rylie Galvan Other [facility] Other 12-13-2021 16:30-0400 Respiratory rate 18 /min Rylie Galvan Other [facility] Other 12-13-2021 16:30-0400 SaO2% (BldA) [Mass fraction] 97 % Rylie Galvan Other [facility] Other 12-13-2021 16:30-0400 Systolic blood pressure 130 mm[Hg] Rylie Galvan Other [facility] Other Encounters Encounter Date Encounter Type Care Provider Facility Start: 11-07-2023 End: 11-07-2023 ambulatory ITALOEmelia SNOWDEN Not Available Start: 10-25-2023 End: 10-25-2023 ambulatory ASHLEYEmelia OLVERA [facility] Start: 10-25-2023 End: 10-25-2023 Office outpatient visit 15 minutes Ashley Olvera RUBBER VULCANIZING MACHINE OPERATOR-COAL DIGGER Work Phone: [facility] - [facility] Comment on above: Arthritis, multiple joint involvement (Primary Dx); History of healed osteoporosis fracture; Decreased mobility and endurance Start: 10-17-2023 Orders Only Ashley hoyos RUBBER VULCANIZING MACHINE OPERATOR-COAL DIGGER Work Phone: [facility] - [facility] Comment on above: Arthritis, multiple joint involvement (Primary Dx); Benign essential HTN Start: 10-09-2023 End: 10-09-2023 [facility] Comment on above: Arthritis, multiple joint involvement Start: 10-09-2023 End: 10-09-2023 Transitional care manage srvc 7 day discharge Ashley Olvera RUBBER VULCANIZING MACHINE OPERATOR-COAL DIGGER Work Phone: [facility] - [facility] Comment on above: Pneumonia of left lo wer lobe due to infectious organism (Primary Dx); Benign essential HTN; Arthritis, multiple joint involvement; Rash and nonspecific skin eruption Start: 09-27-2023 End: 09-27-2023 ambulatory [facility] Start: 09-27-2023 End: 09-27-2023 Office outpatient visit 15 minutes Ashley Olvera RUBBER VULCANIZING MACHINE OPERATOR-COAL DIGGER Work Phone: [facility] - [facility] Comment on above: Rash and nonspecific skin eruption (Primary Dx); 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); Current moderate episode of major depressive disorder without prior episode (CMS-HCC); Malignant neoplasm of colon, unspecified part of colon (CMS-HCC) Start: 07-13-2023 End: 07-13-2023 ambulatory [facility] Start: 07-13-2023 Encounter for genera l adult medical examination without abnormal findings [facility] Start: 10-25-2022 End: 10-25-2022 ambulatory Leighton Valente Other [facility] Other Start: 10-25-2022 Telephone encounter Leighton Valente [facility] Start: 10-14-2022 End: 10-14-2022 ambulatory ASHLEY WADE Facility: Start: 09-28-2022 End: 10-03-2022 Evaluation and management of inpatient Leighton Valente Facility:[facility] Start: 09-28-2022 End: 10-03-2022 Evaluation and management of inpatient EXCELSIOR MACHINE FEEDER-C Ashley Olvera Work Phone: [facility] Work Phone: Start: 09-27-2022 End: 09-28-2022 ambulatory JACIEL STEVE . Facility:[facility] Start: 05-02-2022 End: 05-02-2022 ambulatory ADELE NÚÑEZ . Facility:[facility] Start: 04-13-2022 Patient encounter procedure Storm Russell APRN.DISABILITY BENEFITS SPECIALIST Work Phone: [facility] Start: 04-13-2022 Progress Note Storm GARCIA RN.DISABILITY BENEFITS SPECIALIST Work Phone: [facility] Start: 04-08-2022 Patient encounter procedure Storm Russell APRN.DISABILITY BENEFITS SPECIALIST Work Phone: [facility] Start: 04-08-2022 Progress Note Storm GARCIA RN.DISABILITY BENEFITS SPECIALIST Work Phone: [facility] Start: 04-05-2022 Patient encounter procedure Ryani Cedric Vásquez Work Phone: [facility] Start: 04-05-2022 Progress Note Itri Cedric Fahad Work Phone: [facility] Client Reporting Associate Start: 03-31-2022 End: 04-04-2022 Evaluation and management of inpatient DR GAB FONSECA . Facility:[facility] Start: 12-13-2021 End: 12-13-[address] BONIFACIO LEMOS . [facility] Other Start: 12-13-2021 Office outpatient vi sit 15 minutes Rylie Galvan [facility] Procedures Date Procedure Procedure Detail Performing Clinician Start: 10-25-2023 Adult depression screening assessment Ashley Olvera RUBBER VULCANIZING MACHINE OPERATOR-COAL DIGGER Work Phone: Start: 10-09-2023 Adult depression screening assessment Ashley Olvera RUBBER VULCANIZING MACHINE OPERATOR-COAL DIGGER Work Phone: Start: 09-27-2023 Follow-up visit Follow-up ASHLEY OLVERA Start: 09-27-2023 Adult depression screening assessment Ashley Olvera RUBBER VULCANIZING MACHINE OPERATOR-COAL DIGGER Work Phone: Start: 10-03-2022 Plain X-ray of left hip EXCELSIOR MACHINE FEEDER-C Ashley Olvera Work Phone: Start: 09-28-2022 Plain X-ray of left hip EXCELSIOR MACHINE FEEDER-C Ashley Olvera Work Phone: Start: 09-28-2022 Open reduction with internal fixation EXCELSIOR MACHINE FEEDER-C Ashley Olvera Work Phone: Start: 09-28-2022 Plain X-ray of left femur EXCELSIOR MACHINE FEEDER-Mino Olvera Work Phone: Start: 09-28-2022 Plain X-ray of left hip EXCELSIOR MACHINE FEEDER-Mino Olvera Work Phone: Plan of Treatment Date Care Activity Detail Author Start: 06-14-2030 DTaP,Tdap and Td Vaccines (3 - Td or Tdap) DTaP,Tdap and Td Vaccines (3 - Td or Tdap) [facility] Start: 10-24-2024 Adult BMI Screening Adult BMI Screening [facility] Start: 10-24-2024 Depression Screening Depression Screening [facility] Start: 10-24-2024 Fall Risk Screening Fall Risk Screening [facility] Start: 10-24-2024 Tobacco Screening Tobacco Screening [facility] Start: 10-08-2024 Adult BMI Screening Adult BMI Screening [facility] Start: 10-08-2024 Depression Screening Depression Screening [facility] Start: 10-08-2024 Fall Risk Screening Fall Risk Screening [facility] Start: 10-08-2024 Tobacco Screening Tobacco Screening [facility] Start: 09-27-2024 Tobacco Screening Tobacco Screening [facility] Start: 09-26-2024 Adult BMI Screening Adult BMI Screening [facility] Start: 09-26-2024 Depression Screening Depression Screening [facility] Start: 09-26-2024 Fall Risk Screening Fall Risk Screening [facility] Start: 07-13-2024 Medicare Annual Wellness Visit Medicare Annual Wellness Visit [facility] Start: 03-24-2024 Influenza vaccination Influenza Vaccine [facility] Start: 03-20-2024 End: 03-20-2024 Patient encounter procedure 03/20/2024 11:20 AM EDT Office Visit [facility] Internal Medicine - Family [facility] [address] [place] [address] Ashley Olvera, RUBBER VULCANIZING MACHINE OPERATOR-COAL DIGGER [address] [place] [address] [facility] Internal Medicine - Family [facility] Start: 01-09-2024 End: 01-09-2024 Patient encounter procedure 01/09/2024 10:40 AM EDT Office Visit [facility] Internal Medicine - [facility] [address] [place] [address] Ashley Olvera, RUBBER VULCANIZING MACHINE OPERATOR-COAL DIGGER [address] [place] [address] [facility] Internal [facility] Start: 11-01-2023 Adult BMI Follow Up Plan Adult BMI Follow Up Plan [facility] Start: 03-24-2023 COVID-19 Vaccine ( season) COVID-19 Vaccine ( season) [facility] Start: 10-03-2022 [facility] Start: 09-28-2022 [facility] Start: 09-28-2022 Consultation [facility] Start: 09-28-2022 Hospital admission [facility] Start: 03-24-2022 Influenza vaccination INFLUENZA (#1) [facility] Start: 07-24-2021 ADVANCE DIRECTIVE DISCUSSION ADVANCE DIRECTIVE DISCUSSION [facility] Start: 04-09-2019 DIABETES SCREEN DIABETES SCREEN [facility] Start: 2000 BONE DENSITY BONE DENSITY [facility] Start: 2000 PNEUMOCOCCAL: 65+ (1 - PCV) PNEUMOCOCCAL: 65+ (1 - PCV) [facility] Start: 1985 SHINGRIX VACCINE (1 of 2) SHINGRIX VACCINE (1 of 2) [facility] Start: 1954 Administration of varicella zoster vaccine Zoster (Shingles) Vaccine (1 of 2) [facility] Start: 1954 Urine microalbumin profile DTAP,TDAP,TD (1 - Tdap) [facility] Start: 03-10-1936 COVID-19 VACCINE (#1) COVID-19 VACCINE (#1) [facility] 25-hydroxyvitamin D2 [Mass/volume] in Serum or Plasma [facility] 25-hydroxyvitamin D3 [Mass/volume] in Serum or Plasma [facility] 25-Hydroxyvitamin D3+25-Hydroxyvitamin D2 [Mass/volume] in Serum or Plasma [facility] Patient referral [facility] Work Phone: XR Hip - left 2 Views [facility] Immunizations Immunization Date Immunization Notes Care Provider Fa [facility] 04-11-2023 Influenza Vaccine, Quadrivalent, Adjuvanted Ashley Olvera RUBBER VULCANIZING MACHINE OPERATOR-COAL DIGGER Work Phone: [facility] 04-11-2023 influenza virus vacc ine, unspecified formulation Ashley Olvera RUBBER VULCANIZING MACHINE OPERATOR-COAL DIGGER Work Phone: [facility] 05-09-2022 influenza, seasonal, injectable Ashley Olvera RUBBER VULCANIZING MACHINE OPERATOR-COAL DIGGER Work Phone: [facility] 05-09-2022 pneumococcal polysaccharide vaccine, 23 valent Ashley Olvera RUBBER VULCANIZING MACHINE OPERATOR-COAL DIGGER Work Phone: [facility] 04-21-2022 Influenza Vaccine, Quadrivalent, Adjuvanted Ashley Olvera RUBBER VULCANIZING MACHINE OPERATOR-COAL DIGGER Work Phone: [facility] 12-06-2021 COVID-19, mRNA, LNP- S, PF, 30mcg/0.3mL Dose Ashley Olvera RUBBER VULCANIZING MACHINE OPERATOR-COAL DIGGER Work Phone: [facility] 11-01-2021 COVID-19, mRNA, LNP- S, PF, 30mcg/0.3mL Dose Ashley Olvera RUBBER VULCANIZING MACHINE OPERATOR-COAL DIGGER Work Phone: [facility] 05-17-2021 Influenza, High-dose , Quadrivalent Ashley Olvera RUBBER VULCANIZING MACHINE OPERATOR-COAL DIGGER Work Phone: [facility] 06-14-2020 diphtheria, tetanus toxoids and pertussis vaccine Ashley Olvera RUBBER VULCANIZING MACHINE OPERATOR-COAL DIGGER Work Phone: [facility] 05-12-2020 Influenza, High-dose , Quadrivalent Ashley Olvera RUBBER VULCANIZING MACHINE OPERATOR-COAL DIGGER Work Phone: [facility] 05-07-2019 influenza, high dose seasonal, preservative-free Ashley Olvera RUBBER VULCANIZING MACHINE OPERATOR-COAL DIGGER Work Phone: [facility] 04-17-2019 pneumococcal polysaccharide vaccine, 23 valent Ashley Olvera RUBBER VULCANIZING MACHINE OPERATOR-COAL DIGGER Work Phone: [facility] 05-07-2018 influenza, high dose seasonal, preservative-free Ashley Olvera RUBBER VULCANIZING MACHINE OPERATOR-COAL DIGGER Work Phone: [facility] 05-09-2017 influenza, injectabl e, quadrivalent, preservative free Ashley Olvera RUBBER VULCANIZING MACHINE OPERATOR-COAL DIGGER Work Phone: [facility] 01-05-2017 pneumococcal conjuga te vaccine, 13 valent Ashley Olvera RUBBER VULCANIZING MACHINE OPERATOR-COAL DIGGER Work Phone: [facility] 01-05-2017 tetanus toxoid, redu cristino diphtheria toxoid, and acellular pertussis vaccine, adsorbed Ashley Olvera RUBBER VULCANIZING MACHINE OPERATOR-COAL DIGGER Work Phone: [facility] 05-22-2015 influenza, injectabl e, quadrivalent, preservative free Ashley Olvera RUBBER VULCANIZING MACHINE OPERATOR-COAL DIGGER Work Phone: [facility] 04-21-2014 influenza, seasonal, injectable, preservative free Ashley Olvera RUBBER VULCANIZING MACHINE OPERATOR-COAL DIGGER Work Phone: [facility] 04-17-2013 influenza virus vacc ine, whole virus Ashley Olvera RUBBER VULCANIZING MACHINE OPERATOR-COAL DIGGER Work Phone: [facility] 06-28-2012 pneumococcal vaccine , unspecified formulation Ashley Olvera RUBBER VULCANIZING MACHINE OPERATOR-COAL DIGGER Work Phone: [facility] 04-24-2012 influenza virus vacc ine, whole virus Ashley Olvera RUBBER VULCANIZING MACHINE OPERATOR-COAL DIGGER Work Phone: [facility] 04-20-2011 influenza virus vacc ine, whole virus Ashley Olvera RUBBER VULCANIZING MACHINE OPERATOR-COAL DIGGER Work Phone: [facility] 05-05-2010 influenza virus vacc ine, whole virus Ashley Olvera RUBBER VULCANIZING MACHINE OPERATOR-COAL DIGGER Work Phone: [facility] 04-29-2009 influenza virus vacc ine, whole virus Ashley Olvera RUBBER VULCANIZING MACHINE OPERATOR-COAL DIGGER Work Phone: [facility] 05-09-2007 influenza virus vacc ine, whole virus Ashley Olvera RUBBER VULCANIZING MACHINE OPERATOR-COAL DIGGER Work Phone: [facility] Payers Date Payer Category Payer Medicare [id number] 2022 Self-pay 2016 Medicare [id number] 1959 Medicare [id number] 2.1 [id number] 1959 Private Health Insurance [id number] 1935 Unknown [id number] 2.16.84 [id number] 1935 Unknown [id number] 2.16.84 [id number] 1935 Unknown [id number] 2.16.84 [id number] 1935 Unknown [id number] 2.16.84 [id number] 1935 Unknown [id number] 2.16.84 [id number] 1935 Unknown [id number] 2.16.8 [id number] 1935 Unknown [id number] 2.16.8 [id number] 1935 Unknown [id number] 2.16.8 [id number] 1935 Unknown [id number] 2.16.84 [id number] 1935 Unknown [id number] 2.16.84 [id number] Unknown [id number] 2.16.8 [id number] Social History Date Type Detail Facility Start: 08-04-2020 End: 09-28-2023 Sex Assigned At [facility] Start: 05-28-2014 End: 09-21-2022 Tobacco smoking status NHIS Never smoked tobacco [facility] Start: 10-25-2016 End: 10-25-2023 Alcohol intake Current drinker of alcohol (finding) [facility] Start: 1935 Sex Assigned At Not on file [facility] Start: 09-29-2022 Tobacco smoking stat us SDIS Unknown if ever smoked [facility] Start: 1935 Sex Assigned At Female F [facility] Start: 09-21-2022 Tobacco use and exposure Smokeless tobacco non-user [facility] Start: 08-04-2020 End: 09-28-2023 History of Social function [facility] Adolescent depressio n screening assessment 0 [facility] Goals Date Patient Goal Desired Activity /State Functional Status Date Assessment Result Facility 09-28-2022 Functional status Patient Not at Baseline [facility] Work Phone: Mental Status Date Assessment Result Facility 09-28-2022 Cognitive function Cognitive Sta t[facility] Patient Not at Baseline [facility] Work Phone: Clinical Notes 05-23-2022 to 10-25-2023 Ashley Olvera, RUBBER VULCANIZING MACHINE OPERATOR-COAL DIGGER - 10/25/2023 11:30 AM EDTTelephone Encounter - Justus Gastelum, [facility] - 10/09/2023 1:17 PM EDTTelephone Encounter - Justus Gastelum, [facility] - 10/09/2023 1:17 PM EDT Note Date & Type Note Facility 10-25-2023 History of Present illness Narrative Images from the original note were not included. [address] [place] [address] SUBJECTIVE: Patient ID: Annamaria Garcia is a 88 y.o. female. Chief Complaint Patient presents with Back Pain Back pain for a few weeks Patient is accompanied by her guardian, nephew, Celestino today. She has been experiencing increased arthritic join pain over the past several months. Decline in gait, balance, and endurance. At last visit, she was started on Mobic and tramadol PRN. Nursing staff noticed improvement with pain control. She is also using Lidocaine patches topically. Pain This is a chronic problem. The current episode started more than 1 year ago. The problem occurs daily. The problem has been gradually improving. Associated symptoms include arthralgias and myalgias. Pertinent negatives include no chest pain, chills or fever. The symptoms are aggravated by standing, walking, twisting, exertion and bending. She has tried oral narcotics, position changes, rest, lying down, NSAIDs and acetaminophen for the symptoms. The treatment provided moderate relief. 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 Constitutional: Negative for chills and fever. HENT: Negative. Eyes: Negative for visual disturbance. Respiratory: Negative for chest tightness and shortness of breath. Cardiovascular: Negative for chest pain and palpitations. Gastrointestinal: Negative. Endocrine: Negative. Genitourinary: Negative for menstrual problem and pelvic pain. Musculoskeletal: Positive for arthralgias, back pain and myalgias. Skin: Negative. Allergic/Immunologic: Negative. Neurological: Negative for syncope and facial asymmetry. Hematological: Does not bruise/bleed easily. Psychiatric/Behavioral: Positive for confusion. Negative for decreased concentration. PHYSICAL EXAMINATION: Vitals: 10/25/23 1140 BP: 120/62 BP Site: Left Arm BP Postition: Sitting Pulse: 57 Resp: 18 Temp: 36.3 C (97.4 F) TempSrc: Oral SpO2: 99% Weight: 42.9 kg (94 lb 8 oz) Height: 149.9 cm (4' 11 ) [...] Normal range of motion and neck supple. Lymphadenopathy: Cervical: No cervical adenopathy. Skin: General: Skin is warm and dry. Capillary Refill: Capillary refill takes less than 2 seconds. Neurological: Mental Status: She is alert. Mental status is at baseline. Motor: Weakness present. Gait: Gait abnormal. Deep Tendon Reflexes: Reflexes are normal and symmetric. Psychiatric: Mood and Affect: Mood normal. Behavior: Behavior normal. ASSESSMENT/PLAN: Annamaria was seen today for back pain. Diagnoses and all orders for this visit: Arthritis, multiple joint involvement - Ambulatory referral to Physical Therapy (Non-[facility]); Future - Disability/Handicap Placard History of healed osteoporosis fracture - Ambulatory referral to Physical Therapy (Non[facility]); Future - Disability/Handicap Placard Decreased mobility and endurance - Ambulatory referral to Physical Therapy (Non[facility]); Future - Disability/Handicap Placard Continue Mobic 7.5 mg oral daily Tramadol 50 mg oral every 8 hours PRN pain New orders for physical therapy. Patient does not drive. Is homebound. Resides at assisted living in [place]. ALL QUESTIONS ANSWERED Total time spent was 25 minutes: Preparing to see the patient (e.g., review of tests) Obtaining and/or reviewing separately obtained history Performing a medically appropriate examination and/or evaluation Counseling and educating the patient/family/caregiver Ordering medications, tests, or procedures Follow-up: 4 months GAGE Guerrero 10/25/23 1251 [facility] 10-09-[address] called and [facility] that was [facility]. [phone] documented in this encounter [facility]2023 Telephone encounter Note [address] called and would like the [facility] other [facility] that was listed. [phone] [facility] 10-09-2023 History of Present illness Narrative Images from the original note were not included. [address] [place] [address] Patient ID: Annamaria Garcia is a 88 y.o. female. Transition of Care Diagnosis on Discharge: Hypertensive urgency, Left lower lobe penumonia Name of Discharging Facility: [facility] Date of Facility Discharge: October 02, 2023 Date of Interactive Contact and Name of Accounting/Finance Tutor: Medication Reconciliation Completed: Yes Medication Reconciliation Questions/Concerns: [...] and Other Services Utilized/Needed by the Patient: [facility] Home care / PT *Additional Questions/Concerns Requiring PCP Follow-Up: Pain control for arthritis SUBJECTIVE: Patient ID: Annamaria Garcia is a 88 y.o. female. Chief Complaint Patient presents with Hypertension [facility] follow up 09/29-10/01 Hypertension This is a [...] Guerrero 10/09/23 1307 documented in this encounter [facility] 09-27-2023 History of Present illness Narrative Images from the original note were not included. [address] [facility] [address] SUBJECTIVE: Patient ID: Annamaria Garcia is a [...] but returned worse. Family took her to [facility] ER last week for evaluation. 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 10-02-2022 Progress note Note Date/Time October 02, 2022 12:44pm [facility] [address] [place] [address] Hospitalist Progress Note Signed Patient: Annamaria Garcia MR#: [id number] : 1935 Acct:[id number] Age/Sex: 87 / F Adm Date: 3 Loc: 4N Room: [address] [place] [address] Type: ADM IN Attending Dr: Gordon You [...] formulated the plan of care and confirmed COAL DIGGER's written note. Documented By: Mimi Artis APRN 10/02/22 1241 Signed By: <Electronically signed by KHURRAM Artis> 10/02/22 1244 <Electronically signed by Gordon You MD> 10/02/222119 [facility] Work Phone: 1(952) 441-329603-12-2023 Progress note Author Gordon You [facility] October 02, 2022 9:16pm Note Date/Time October 01, 2022 12: 12pm [facility] [address] [place] [address] Hospitalist Progress Note Signed Patient: Annamaria Garcia MR#: [id number] : 1935 Acct:[id number] Age/Sex: 87 / F Adm Date: 3 Loc: 4N Room: [address] [place] [address] Type: ADM IN Attending Dr: Gordon You [...] the plan of care and confirmed the COAL DIGGER's written note. Documented By: Mimi Artis APRN 10/01/22 1207 Signed By: <Electronically signed by KHURRAM Artis> 10/01/22 1213 <Electronically signed by Gordon You MD> 10/02/22 4642 [facility] Work Phone: 1(223) 179-878503-12-2023 Progress note Author Leighton Valente [facility] October 02, 2022 12:49pm Note Date/Time October 02, 2022 12: 43pm [facility] [address] [place] [address] Orthopedic Progress Note Signed Patient: Annamaria Garcia MR#: [id number] : 1935 Acct:[id number] Age/Sex: 87 / F Adm Date: 3 Loc: 4N Room: [address] [place] [address] Type: ADM IN Attending Dr: Gordon You [...] % (Auto) 72.4 Lymph % (Auto) 12.7 Spink % (Auto) 13.6 Eos % (Auto) 1.0 Baso % (Auto) 0.3 Nucleat RBC Rel Count 0.0 Neut # (Auto) 5.3 Lymph # (Auto) 0.9 L Spink # (Auto) 1.0 H Eos # (Auto) [...] <Electronically signed by MD Leighton Valente> 10/02/22 124 [facility] Work Phone: 1(970) 511-809403-10-2023 Progress note Author Yani Cyr [facility] September 30, 2022 4:42pm Note Date/Time September 30, 2022 12: 30pm [facility] [address] [place] [address] Hospitalist Progress Note Signed Patient: Annamaria Garcia MR#: [id number] : 1935 Acct:[id number] Age/Sex: 87 / F Adm Date: 3 Loc: Room: [address] [place] [address] Type: ADM IN Attending Dr: Yani Cyr [...] 09:00 09/30/22 08:13 Ferrous Sulfate 324 Mg Tablet.Dr PO 09/29/23 08:59 324 mg DAILY XIAO [...] Yani Cyr MD> 09/30/22 1641 [facility] Work Phone: 1(119) 933-592003-09-2023 Progress note Author Leighton Valente [facility] September 29, 2022 12:30pm Note Date/Time September 29, 2022 7:53 am [facility] [address] [place] [address] Orthopedic Progress Note Signed Patient: Annamaria Garcia MR#: [id number] : 1935 Acct:[id number] Age/Sex: 87 / F Adm Date: 3 Loc: Room: [address] [place] [address] Type: ADM IN Attending Dr: Adama Kothari [...] MD Leighton Valente> 09/29/22 1230 [facility] Work Phone: 1([phone]) 406-346003-09-2023 Consult note Author Leighton Valente [facility] September 29, 2022 7:45am Note Date/Time September 29, 2022 7:39 am [facility] [address] [place] [address] Orthopedic Consult Note Signed Patient: Annamaria Garcia MR#: [id number] : 1935 Acct:[id number] Age/Sex: 87 / F Adm Date: 3 Loc: Room: [address] [place] [address] Type: ADM IN Attending Dr: Adama Kothari MD Copies to: MD Leighton Paul MD Valerie J Castillo NP-C~ History of Present Illness HPI Consult date: 09/29/2022 Requesting provider: Adama Kothari MD History of present illness: Patient is an 87-year-old female who sustained a fall with complaints of left hip pain.. [facility] [place] [facility]. [facility] displaced [...] % (Auto) 87.9, Lymph % (Auto) 4.7, Spink % (Auto) 7.4, Eos % (Auto)0.0, Baso % (Auto) 0.0, Nucleat RBC Rel Count 0.1, Neut # (Auto) 10.7 H, Lymph #(Auto) 0.6 L, Spink # (Auto) 0.9 H, Eos # (Auto) [...] signed by MD Leighton Valente> 09/29/22 0745 [facility] Work Phone: 1(430) 340-404303-08-2023 History and physical note Author Juliet Green [facility] September 28, 2022 9:41pm Note Date/Time September 28, 2022 4:41 am [facility] [address] [place] [address] Hospitalist H&P Signed Patient: Annamaria Garcia MR#: [id number] : 1935 Acct:[id number] Age/Sex: 87 / F Adm Date: 3 Loc: 4N Room: [address] [place] [address] Type: ADM IN Attending Dr: Adama Kothari MD Copies to: MD Juliet Paul MD Valerie J Castillo EXCELSIOR MACHINE FEEDER-C~ HPI DATE OF EXAMINATION: 09/28/22 CHIEF COMPLAINT: hip fx HISTORY OF PRESENT ILLNESS: 87 years old female sustained what it seems mechanical fall, without any prodromal symptoms at home, where she lives alone, and presented to [place] emergency room where she was diagnosed with [...] Juliet Green MD> 09/28/22 2141 [facility] Work Phone: 1(163) 477-465603-08-2023 Progress note Author Adama Kothari [facility] September 28, 2022 7:19pm Note Date/Time September 28, 2022 10:0 4am [facility] [address] [place] [address] Hospitalist Progress Note Signed Patient: Annamaria Garcia MR#: [id number] : 1935 Acct:[id number] Age/Sex: 87 / F Adm Date: 3 Loc: Room: [address] [place] [address] Type: ADM IN Attending Dr: Adama Kothari [...] mg 09/29/22 09:00 Ferrous Sulfate 324 Mg Tablet.Dr PABLO 09/29/23 08:59 DAILY XIAO Hydralazine HCl 10 [...] Meq Kcl IV 09/28/23 05:29 75 mls/hr .[id number] XIAO Administration Lactated Ringer's 1,000 mls @ [...] Full code Documented By: Mimi Artis APRN 09/28/2205 Signed By: <Electronically signed by KHURRAM Artis> 09/28/22 1004 <Electronically signed by Adama Kothari MD> 09/28/22 191 [facility] Work Phone: 1(232) 412-765803-08-2023 Hospital Discharge instructions Additional Instructions SNF Physician: [...] foam to Coccyx for protection. [facility] Work Phone: 1(384) 598-244609-26-2022 NoteHNO ID: [id number] Author: Storm Russell APRN.DISABILITY BENEFITS SPECIALIST Service: ? Author Type: Nurse Specialist Type: Progress Notes Filed: 04/21/2022 7:19 AM Note Text: [facility] NOTE NAME: STANISLAW GARCIA NO.: [id number] DATE OF SERVICE: 04/18/2022 [facility] DATE OF : 1935 REASON FOR VISIT: The patient is a resident of [facility]. This is a skilled visit for fracture [...] no supplement. DICTATED BY: SARAH Bliss/Bernice JOB# [id number] cc:[facility]09-21-2022 NoteHNO ID: [id number] Author: Storm Russell APRN.DISABILITY BENEFITS SPECIALIST Service: ? Author Type: Nurse Specialist Type: Progress Notes Filed: 04/14/2022 3:59 PM Note Text: [facility] NOTE NAME: STANISLAW GARCIA NO.: [id number] DATE OF SERVICE: 04/13/2022 [facility] DATE OF : 1935 REASON FOR VISIT: The patient is a resident of [facility]. This is a skilled visit for fracture [...] supportive care. DICTATED BY: SARAH Bliss/Bernice JOB# [id number] cc:[facility]-21-2022 History of Present illness Narrative* Storm Russell APRN.DISABILITY BENEFITS SPECIALIST - 04/13/2022 12:00 AM EDT [facility] NOTE NAME: STANISLAW GARCIA NO.: [id number] DATE OF SERVICE: 04/13/2022 [facility] DATE OF : 1935 REASON FOR VISIT: The patient is a resident of [facility]. This is a skilled visit for fracture [...] supportive care. DICTATED BY: SARAH Bliss JOB# [id number] cc:[facility] documented [facility]-16-2022 NoteHNO ID: [id number] Author: Storm Russell APRN.DISABILITY BENEFITS SPECIALIST Service: ? Author Type: Nurse Specialist Type: Progress Notes Filed: 04/11/2022 7:39 PM Note Text: [facility] NOTE NAME: STANISLAW GARCIA NO.: [id number] DATE OF SERVICE: 04/08/2022 [facility] DATE OF : 1935 REASON FOR VISIT: The patient is a resident of [facility]. This is a skilled visit for [...] normal range. DICTATED BY: SARAH Bliss/Bernice JOB# [id number] cc:[facility]-16-2022 History of Present illness Narrative* Storm Russell APRN.DISABILITY BENEFITS SPECIALIST - 04/08/2022 12:00 AM EDT [facility] NOTE NAME: STANISLAW GARCIA NO.: [id number] DATE OF SERVICE: 04/08/2022 [facility] DATE OF : 1935 REASON FOR VISIT: The patient is a resident of [facility]. This is a skilled visit for [...] normal range. DICTATED BY: SARAH Bliss/Bernice JOB# [id number] cc:[facility] documented in this encounterLuther[facility] Hospital09-13-2022 NoteHNO ID: [id number] Author: Debra Vásquez Service: ? Author Type: Physician Type: Progress Notes Filed: 04/06/2022 5:49 PM Note Text: [facility] DETENTION NOTE NAME: RADHA ANNAMARIACHELI NO.: [id number] DATE OF SERVICE: 04/05/2022 [facility] DATE OF : 1935 NEW PATIENT HISTORY AND PHYSICAL HISTORY OF PRESENT ILLNESS: Patient is an 86-year-old female, who is admitted to us from [facility] with a diagnoses of acute nondisplaced [...] she knew that she was somewhere is [place]. She is aware of having had a [...] hospital. DICTATED BY: MD ROCHELLE Silverio/Bernice JOB# [id number] cc:[facility]09-13-2022 History of Present illness Narrative* Debra Vásquez - 04/05/2022 12:00 AM EDT [facility] NOTE NAME: STANISLAW GARCIA NO.: [id number] DATE OF SERVICE: 04/05/2022 [facility] DATE OF : 1935 NEW PATIENT HISTORY AND PHYSICAL HISTORY OF PRESENT ILLNESS: Patient is an 86-year-old female, who is admitted to us from [facility] with a diagnoses of acute nondisplaced [...] she knew that she was somewhere is [place]. She is aware of having had a [...] hospital. DICTATED BY: MD ROCHELLE Silverio/Bernice JOB# [id number] cc:[facility] documented in this encounterLutheran Hospital05-23-2022 Evaluation note* Encounter Date Diagnosis Assessment [...] above plan, states she will go to [facility] for further evaluation. 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 ([facility]) Current moderate episode of major depressive disorder without prior episode ([facility]) Malignant neoplasm of colon, unspecified part of colon ([facility]-HCC) [facility] Diagnosis Pneumonia of left lower lobe due to infectious organism- Primary Benign essential HTN Arthritis, multiple joint involvement Unspecified arthropathy, multiple sites Rash and nonspecific skin eruption Rash and other nonspecific skin eruption documented in this encounter [facility]* Diagnosis Arthritis, multiple joint involvement Unspecified arthropathy, multiple sites documented in this encounter [facility]* Diagnosis Arthritis, multiple joint involvement- Primary Unspecified arthropathy, multiple sites Benign essential HTN documented in this encounter [facility]* Diagnosis Arthritis, multiple joint involvement- Primary Unspecified arthropathy, multiple sites History of healed osteoporosis fracture Decreased mobility and endurance [facility] System[facility] general Narrative - Reported* Type Description Date Surgical History CATARACT REMOVAL Surgical History CHOLECYSTECTOMY YellowPepper Other Instructions* Attachments The following attachments cannot be sent through Care Everywhere. * Skin Rash (Israeli) [facility] SystemInst[facility]* Attachments The following attachments cannot be sent through Care Everywhere. * Joint Pain (Israeli) documented in [facility] SystemInstructionsNot on file documented in this encounterCosho[facility] SystemInstructionsNot on file documented in this encounterCoshocton [facility] SystemInstructions* Attachments The following attachments cannot be sent through Care Everywhere. * Chronic pain (Israeli) [facility] HospitalReason for referral (narrative)* Consultation (Routine) - Pending Review Specialty Diagnoses / Procedures Referred By Christiane layton Referred To Contact Dermatology Diagnoses Rash and nonspecific skin eruption Ashley Olvera APRN-COAL DIGGER [address] [place] [address] Shawanda Cintron MD [address] , [address] [address] Referral ID Status Reason Start Date Expiration Date Visits Requested Visits Authorized [id number] Pending Review Specialty Services Required 09/27/2023 09/26/2024 1 1 [facility] Advance Directives No Advanced Directives Records FoundDocuments on File Type Date Recorded Patient Pre Algebra Teacher Expl anation Advance Directive(s) 04/04/2016 12:27 PM Advance Directive Response Recorded Date/ Time Advance Directives No September 28 2:49am Documents on File Type Date Recorded Patient Pre Algebra Teacher Expl anation Advance Directive 04/11/2023 3:23 PM POA Advance Directive 03/08/2023 11:14 AM guar dianship 03/08/2023 Documents on File Type Date Recorded Patient Pre Algebra Teacher Expl anation Advance Directive 04/11/2023 3:23 PM [...] Referral Specialty Diagnoses / Procedures Referred By Christiane t Referred To Contact Diagnoses Arthritis, multiple joint involvement Ashley Olvera, RUBBER VULCANIZING MACHINE OPERATOR-COAL DIGGER [address] [place] [address] Referral ID Status Reason Start Date Expiration Date V isits Requested Visits Authorized [id number] Pending Review 1 1 Additional Source Comments REASON FOR VISIT (unrecogniz ed section and content) Reason Comments ER follow up. Rash on lower legs and fac e Reason Comments Hypertension [facility] follow up 09/29-0 10/01 Reason Comments Back Pain Back pain for a few weeks Source Comments (unrecognize d section and content) In the event this informatio n is protected by the Federal Confidentiality of Alcohol and Drug Abuse Patient Records regulations: The Federal rules restrict any use of the information to criminally investigate or prosecute any alcohol or drug abuse patient.[facility] HospitalIn the event this information is protected by the Federal Confidentiality of Alcohol and Drug Abuse Patient Records regulations: The Federal rules restrict any use of the information to criminally investigate or prosecute any alcohol or drug abuse patient.[facility] HospitalIn the event this information is protected by the Federal Confidentiality of Alcohol and Drug Abuse Patient Records regulations: The Federal rules restrict any use of the information to criminally investigate or prosecute any alcohol or drug abuse patient.[facility] Care Teams (unrecognized sec tion and content) Men'S Swim Coach Relationship Specialty Start Date End Date Richard He PCP - General Family Practice 05/08/14 Men'S Swim Coach Relationship Specialty Start Date End Date Richard [...] Active Yani Cyr MD Attending Provider Active Men'S Swim Coach Relationship Specialty Start Date End Date Ashley Olvera, RUBBER VULCANIZING MACHINE OPERATOR-COAL DIGGER [address], [place] [address] PCP - General Family Medicine 07/23/19 Men'S Swim Coach Relationship Specialty Start Date End Date [facility] [address] [place] [address] PCP - General Family Medicine 07/23/19 Men'S Swim Coach Relationship Specialty Start Date End Date [facility] [address] [place] [place] [address] PCP - General Family Medicine 07/23/19 Men'S Swim Coach Relationship Specialty Start Date End Date Ashley [facility] [address] [place] [address] PCP - General Family Medicine 07/23/19 INFORMATION SOURCE (unrecogn ized section and content) DATE CREATED AUTHOR 04/25/2022 [facility] DATE CREATED AUTHOR AUTHOR'S ORGANIZ ATION 10/17/2022 [facility] DATE CREATED AUTHOR AUTHOR'S ORGANIZ ATION 10/17/2022 [facility] DATE CREATED AUTHOR AUTHOR'S ORGANIZ ATION 10/26/2023 [facility] DATE CREATED AUTHOR AUTHOR'S ORGANIZ ATION 11/08/2023 [facility] dicny Specialists [facility] FOR RECORDS PERTAINING TO PATIENTS WHO ARE [...] BE BASED ON THE PRIMARY CLINICAL RECORDS. [facility]. provides no warranty or guarantee of the accuracy or completeness of information in this document.
--- NOTE | 2023-11-14 00:11 | CT_ITS ---
The [address] [address] Patient Name: JIM GARCIA MRN: [id number] date: 1935 Sex: F Assigned Patient Location: ER Current Patient Location: ER Accession/Order Number: [id number] Exam Date: 11/14/2023 00:20 Report Date: 11/14/2023 01:00 At the request of: AARON ROMERO Procedure: CT cervical spine wo con INDICATION: 88 years old; Female. Closed head trauma status post fall. TECHNIQUE: CT Head (ax/cor/sag reformats). Ionizing radiation dose reduced via iterative reconstruction/FBP blend and body size kV/mA adjustment. Comparison: Head CT dated 04/10/2023. FINDINGS: POSTOPERATIVE CHANGES: None. BRAIN PARENCHYMA: No intraparenchymal or extra-axial hemorrhage. 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 Redemonstration of patchy and confluent low-density throughout the white matter. This is a nonspecific finding but would be compatible with small vessel ischemic change. VENTRICLES/EXTRA-AXIAL SPACES: Enlarged, consistent with atrophy. SINUSES/MASTOIDS: Mucoperiosteal thickening in the maxillary sinus on the right. There is redemonstration and no change in the previously described opacification of the right mastoid antrum, mastoid air cells, and middle ear. Cyst is consistent with indeterminate age otomastoiditis and underlying cholesteatoma not excluded. As previously recommended, ENT evaluation is suggested. MSK: No displaced or depressed calvarial fracture. OTHER: No hyperdense intraluminal thrombus. Vascular calcifications are present. TECHNIQUE: CT imaging of the cervical spine was performed. IV contrast: None. Dose reduction techniques were achieved by using automated exposure control and/or adjustment of mA and/or kV according to patient size and/or use of iterative reconstruction technique. COMPARISON: Cervical CT dated 04/10/2023. Cervical CT dated 09/27/2022. FINDINGS: POSTOPERATIVE CHANGES: None. ALIGNMENT: Normal cervical lordotic curve. There are findings which would indicate accentuation of the thoracic kyphosis. COMPRESSION FRACTURES: Generalized bony demineralization is present. No fracture or vertebral body collapse is seen. No asymmetric widening of the facets is noted. There is concave appearance of the superior endplates of T2 and T3 which are unchanged as compared to the prior examination of 09/27/2022. PREVERTEBRAL SOFT TISSUES: Normal. CRANIOCERVICAL JUNCTION: There is a normal relationship of the occipital condyles, lateral masses of C1, and articular surfaces of C2. The base of the dens and body of C2 are intact. There is narrowing of the predental space with spurring arising from the anterior arch of C1 and the tip of the dens. POSTERIOR FOSSA: The cerebellar tonsils are above the foramen magnum. There is thickening of the transverse ligament without compression of the cervical medullary junction. Disc levels: C2-C3: No disc herniation. No spinal canal or foraminal narrowing. C3-C4: No disc herniation. No spinal canal or foraminal narrowing. C4-C5: No disc herniation. No spinal canal or foraminal narrowing. C5-C6: No disc herniation. No spinal canal or foraminal narrowing. C6-C7: No disc herniation. No spinal canal or foraminal narrowing. C7-T1: No disc herniation. No spinal canal or foraminal narrowing. UPPER THORACIC SPINE: Narrowing is seen at T1-T2 and T2-T3. This is unchanged from the prior study. Anterior osteophyte formation is noted. OTHER: Vascular calcifications. CT/CT cervical spine wo con IMPRESSION: 1. No acute intracranial abnormality. No hemorrhage or mass effect. 2. Nonspecific white matter changes which are stable. The prior examination. 3. Atrophy. 4. Redemonstration and no change in the previous described opacification of the mastoid antrum, mastoid air cells, and middle ear. This is consistent with otomastoiditis. Underlying cholesteatoma not excluded. As previously recommended, ENT evaluation is suggested. 5. No acute cervical fracture is seen. Cervical spondylosis, without stenosis. Electronically authenticated by: NADYA KAHN Date: 11/14/2023 01:00
--- NOTE | 2023-11-14 00:11 | XR_ITS ---
The [address] [address] Patient Name: JIM GARCIA MRN: [id number] date: 1935 Sex: F Assigned Patient Location: ER Current Patient Location: ER Accession/Order Number: [id number] Exam Date: 11/14/2023 00:20 Report Date: 11/14/2023 01:04 At the request of: AARON ROMERO Procedure: XR ribs RT min 3V w CXR1V EXAM: XR ribs RT min 3V w CXR1V HISTORY: Fall, right-sided pain, found on the floor. COMPARISON: Chest x-ray 10/01/2023. CT chest 03/31/2022. TECHNIQUE: AP chest x-ray with 3 views of the right ribs. FINDINGS: Cardiac size appears unchanged. Trachea is midline. No mediastinal widening. Chronic interstitial thickening is noted. No pneumothorax or effusion is identified. There is callus along a healed fracture of the posterior lateral right eighth rib. Acute, minimally displaced fracture of the lateral right ninth rib. XR/XR ribs RT min 3V w CXR1V IMPRESSION: 1. Acute, minimally displaced fracture of the lateral right ninth rib. No pneumothorax. 2. Mild chronic interstitial thickening. Electronically authenticated by: ADEN TSAI Date: 11/14/2023 01:04
--- NOTE | 2023-11-14 00:11 | CT_ITS ---
The [address] [address] Patient Name: JIM GARCIA MRN: [id number] date: 1935 Sex: F Assigned Patient Location: ER Current Patient Location: ER Accession/Order Number: [id number] Exam Date: 11/14/2023 00:20 Report Date: 11/14/2023 01:00 At the request of: AARON ROMERO Procedure: CT head/brain wo con INDICATION: 88 years old; Female. Closed head trauma status post fall. TECHNIQUE: CT Head (ax/cor/sag reformats). Ionizing radiation dose reduced via iterative reconstruction/FBP blend and body size kV/mA adjustment. Comparison: Head CT dated 04/10/2023. FINDINGS: POSTOPERATIVE CHANGES: None. BRAIN PARENCHYMA: No intraparenchymal or extra-axial hemorrhage. 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 Redemonstration of patchy and confluent low-density throughout the white matter. This is a nonspecific finding but would be compatible with small vessel ischemic change. VENTRICLES/EXTRA-AXIAL SPACES: Enlarged, consistent with atrophy. SINUSES/MASTOIDS: Mucoperiosteal thickening in the maxillary sinus on the right. There is redemonstration and no change in the previously described opacification of the right mastoid antrum, mastoid air cells, and middle ear. Cyst is consistent with indeterminate age otomastoiditis and underlying cholesteatoma not excluded. As previously recommended, ENT evaluation is suggested. MSK: No displaced or depressed calvarial fracture. OTHER: No hyperdense intraluminal thrombus. Vascular calcifications are present. TECHNIQUE: CT imaging of the cervical spine was performed. IV contrast: None. Dose reduction techniques were achieved by using automated exposure control and/or adjustment of mA and/or kV according to patient size and/or use of iterative reconstruction technique. COMPARISON: Cervical CT dated 04/10/2023. Cervical CT dated 09/27/2022. FINDINGS: POSTOPERATIVE CHANGES: None. ALIGNMENT: Normal cervical lordotic curve. There are findings which would indicate accentuation of the thoracic kyphosis. COMPRESSION FRACTURES: Generalized bony demineralization is present. No fracture or vertebral body collapse is seen. No asymmetric widening of the facets is noted. There is concave appearance of the superior endplates of T2 and T3 which are unchanged as compared to the prior examination of 09/27/2022. PREVERTEBRAL SOFT TISSUES: Normal. CRANIOCERVICAL JUNCTION: There is a normal relationship of the occipital condyles, lateral masses of C1, and articular surfaces of C2. The base of the dens and body of C2 are intact. There is narrowing of the predental space with spurring arising from the anterior arch of C1 and the tip of the dens. POSTERIOR FOSSA: The cerebellar tonsils are above the foramen magnum. There is thickening of the transverse ligament without compression of the cervical medullary junction. Disc levels: C2-C3: No disc herniation. No spinal canal or foraminal narrowing. C3-C4: No disc herniation. No spinal canal or foraminal narrowing. C4-C5: No disc herniation. No spinal canal or foraminal narrowing. C5-C6: No disc herniation. No spinal canal or foraminal narrowing. C6-C7: No disc herniation. No spinal canal or foraminal narrowing. C7-T1: No disc herniation. No spinal canal or foraminal narrowing. UPPER THORACIC SPINE: Narrowing is seen at T1-T2 and T2-T3. This is unchanged from the prior study. Anterior osteophyte formation is noted. OTHER: Vascular calcifications. CT/CT head/brain wo con IMPRESSION: 1. No acute intracranial abnormality. No hemorrhage or mass effect. 2. Nonspecific white matter changes which are stable. The prior examination. 3. Atrophy. 4. Redemonstration and no change in the previous described opacification of the mastoid antrum, mastoid air cells, and middle ear. This is consistent with otomastoiditis. Underlying cholesteatoma not excluded. As previously recommended, ENT evaluation is suggested. 5. No acute cervical fracture is seen. Cervical spondylosis, without stenosis. Electronically authenticated by: NADYA KAHN Date: 11/14/2023 01:00
--- NOTE | 2023-11-14 00:12 | ED_ITS ---
HPI HPI - Fall General Chief Complaint: Fall Stated Complaint: RIB PAIN Time Seen by Provider: 11/14/23 00:08 History of Present Illness HPI Narrative: 88-year-old female presents for an unwitnessed fall. She is unable to give any history at all, she has dementia. She was found on the floor and when they were getting her back in the bed she seems to be complaining of right rib pain. There was no bleeding. This happened tonight. No further history is obta inable. Related Data Home Medications ?Medication ?Instructions ?Recorded ?Confirmed acetaminophen 325 mg tablet 325 mg PO Q6H PRN fever or pain 04/10/23 09/30/23 (Tylenol) aspirin 325 mg capsule 325 mg PO DAILY 04/10/23 09/30/23 calcium carbonate 600 mg-vitamin 1 tab PO DAILY 04/10/23 09/30/23 D3 20 mcg (800 unit) chewable tablet (Caltrate 600 plus D) cholecalciferol (vitamin D3) 50 50 mcg PO DAILY 04/10/23 09/30/23 mcg (2,000 unit) capsule ferrous sulfate 325 mg (65 mg 325 mg PO DAILY 04/10/23 09/30/23 iron) tablet,delayed release sertraline 25 mg tablet 25 mg PO Q24H 04/10/23 09/30/23 diphenhydramine HCl 25 mg capsule 25 mg PO Q4H PRN itching 09/30/23 09/30/23 (Allergy (diphenhydramine)) Previous Rx's ?Medication ?Instructions ?Recorded clobetasol 0.05 % topical cream 1 applic topical DAILY 2 weeks #60 09/22/23 grams amlodipine 5 mg tablet 5 mg PO QD 30 days #30 tabs 10/02/23 amoxicillin 875 mg-potassium 1 tab PO BID 7 days #14 tabs 10/02/23 clavulanate 125 mg tablet lidocaine 5 % topical patch 1 patch topical DAILY #30 ea 10/02/23 (Lidoderm) tramadol 50 mg tablet 50 mg PO Q8H PRN pain #20 tabs 10/02/23 Allergies Allergy/AdvReac Type Severity Reaction Status Date / Time No Known Drug Allergies Allergy Verified 11/14/23 00:13 Opioid HPI Opioid Management Most Recent Pain and Opioid Data: Last Pain Scale 7 10/02/23 10:38 Last Pain Intensity 6 10/02/23 10:38 Last ORT Total Score 0 10/01/23 03:53 Last ORT Risk Category Low Risk 10/01/23 03:53 Review of Systems ROS Narrative A ten point review of systems is negative except as noted above. [facility] Medical History (Updated 11/14/23 @ 01:14 by Felice Echols MD) Acute hyponatremia ?E87.1 - Hypo-osmolality and hyponatremia (ICD-10) Acute back pain ?M54.9 - Dorsalgia, unspecified (ICD-10) Keratitis ?H16.9 - Unspecified keratitis (ICD-10) Rash and nonspecific skin eruption ?R21 - Rash and other nonspecific skin eruption (ICD-10) Ankle sprain and strain ?S93.409A - Sprain of unspecified ligament of unspecified ankle, initial encounter (ICD-10) ?S96.919A - Strain of unspecified muscle and tendon at ankle and foot level, unspecified foot, initial encounter (ICD-10) Acute anterior epistaxis ?R04.0 - Epistaxis (ICD-10) Chronic mastoiditis, 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 - Chronic mastoiditis, right ear (ICD-10) Bilateral fracture of pubic rami with routine healing ?S32.591D - Other specified fracture of right pubis, subsequent encounter for fracture with routine healing (ICD-10) ?S32.592D - Other specified fracture of left pubis, subsequent encounter for fracture with routine healing (ICD-10) Pubic bone fracture ?S32.509A - Unspecified fracture of unspecified pubis, initial encounter for closed fracture (ICD-10) Hip fracture, intertrochanteric ?S72.143A - Displaced intertrochanteric fracture of unspecified femur, initial encounter for closed fracture (ICD-10) H/O fracture of hip ?Z87.81 - Personal history of (healed) traumatic fracture (ICD-10) Closed sacral fracture ?S32.10XA - Unspecified fracture of sacrum, initial encounter for closed fracture (ICD-10) Dementia ?F03.90 - Unspecified dementia, unspecified severity, without behavioral disturbance, psychotic disturbance, mood disturbance, and anxiety (ICD-10) Osteoporosis ?M81.0 - Age-related osteoporosis without current pathological fracture (ICD- 10) Social History (Updated 10/01/23 @ 03:49 by Caity Arteaga RN) Within the past year, how often did you have a drink containing alcohol: never Score interpretation: A score less than 3 is consistent with normal alcohol consumption. Smoking status: Former smoker Non-prescribed substance use: denies use Gender Identity: female Exam Narrative Exam Narrative: Nurses note and vital signs reviewed and patient is not hypoxic. General: The patient appears in no acute respiratory distress. C-collar is in place. Skin: Warm, dry, no pallor noted. There is no rash noted. Head: Normocephalic, atraumatic Eye: Normal conjunctiva, no drainage Ears, Nose, Mouth, and Throat: oral mucosa is moist. Nares patent. Cardiovascular: Regular Rate and Rhythm Respiratory: Patient is in no distress, no accessory muscle use, lungs are clear to auscultation, no wheezing, rales or rhonchi. She seems to have tenderness on the right side of her chest without crepitus or bruise or abrasion. Back: non-tender GI: Soft and nontender Musculoskeletal: No palpable tenderness to all 4 extremities and all joints have full range of motion in her extremities. Neurological: Awake and alert. She could not tell me her name but she was able to tell the nurse. This is her baseline. She is otherwise not oriented. Psychiatric: Not uncooperative Constitutional Vital Signs, click to edit/add: Last Vital Signs Temp 98.2 F 11/14/23 00:00 Pulse 73 11/14/23 00:00 Resp 20 11/14/23 00:00 BP 180/91 H 11/14/23 00:00 Pulse Ox 99 11/14/23 00:00 O2 Del Method Room Air 11/14/23 00:00 Course Vital Signs Vital signs: Vital Signs Temperature 98.2 F 11/14/23 00:00 Pulse Rate 73 11/14/23 00:00 Respiratory Rate 20 11/14/23 00:00 Blood Pressure 180/91 H 11/14/23 00:00 Pulse Oximetry 99 11/14/23 00:00 Oxygen Delivery Method Room Air 11/14/23 00:00 Temperature 98.2 F 11/14/23 00:00 Pulse Rate 73 11/14/23 00:00 Respiratory Rate 20 11/14/23 00:00 Blood Pressure 180/91 H 11/14/23 00:00 Pulse Oximetry 99 11/14/23 00:00 Oxygen Delivery Method Room Air 11/14/23 00:00 MDM - Fall MDM Narrative Medical decision making narrative: CT of head and neck are negative and rib x-rays show 1/9 rib fracture without pneumothorax. Findings are discussed with the patient's niece. The patient was given Tylenol and an incentive spirometer. Treatment diagnosis and follow-up were discussed with the patient's niece. Differential Diagnosis Differential diagnosis: Likely other (Intracranial hemorrhage, rib fracture, pneumothorax, rib contusion) Imaging Data CT scan - head: Radiologist's impression: ITS Impressions Cervical Spine CT 11/14/23 00:11 IMPRESSION: 1. No acute intracranial abnormality. No hemorrhage or mass effect. 2. Nonspecific white matter changes which are stable. The prior examination. 3. Atrophy. 4. Redemonstration and no change in the previous described opacification of the mastoid antrum, mastoid air cells, and middle ear. This is consistent with otomastoiditis. Underlying cholesteatoma not excluded. As previously recommended, ENT evaluation is suggested. 5. No acute cervical fracture is seen. Cervical spondylosis, without stenosis. Electronically authenticated by: NADYA KAHN Date: 11/14/2023 01:[address] 11/14/23 00:11 IMPRESSION: 1. No acute intracranial abnormality. No hemorrhage or mass effect. 2. Nonspecific white matter changes which are stable. The prior examination. 3. Atrophy. 4. Redemonstration and no change in the previous described opacification of the mastoid antrum, mastoid air cells, and middle ear. This is consistent with otomastoiditis. Underlying cholesteatoma not excluded. As previously recommended, ENT evaluation is suggested. 5. No acute cervical fracture is seen. Cervical spondylosis, without stenosis. Electronically authenticated by: NADYA KAHN Date: 11/14/2023 01:00 Ribs X-Ray 11/14/23 00:11 IMPRESSION: 1. Acute, minimally displaced fracture of the lateral right ninth rib. No pneumothorax. 2. Mild chronic interstitial thickening. Electronically authenticated by: ADEN TSAI Date: 11/14/2023 01:04 Discharge Plan Discharge Stand Alone Forms: Portal Instructions Chief Complaint: Fall Clinical Impression: Fracture, rib Patient Disposition: Home, Self-Care Time of Disposition Decision: 01:14 Condition: Good Mode of Transportation: Private Vehicle Prescriptions / Home Meds: No Action clobetasol 0.05 % cream 1 applic topical DAILY 14 Days Qty: 60 1RF sertraline 25 mg tablet 25 mg PO Q24H ferrous sulfate 325 mg (65 mg iron) tablet,delayed release (DR/EC) 325 mg PO DAILY cholecalciferol (vitamin D3) 50 mcg (2,000 unit) capsule 50 mcg PO DAILY Rx Instructions: 1000 units daily aspirin 325 mg capsule 325 mg PO DAILY Caltrate 600 plus D 600 mg-20 mcg (800 unit) tablet,chewable 1 tab PO DAILY acetaminophen [Tylenol] 325 mg tablet 325 mg PO Q6H PRN (Reason: fever or pain) diphenhydramine HCl [Allergy (diphenhydramine)] 25 mg capsule 25 mg PO Q4H PRN (Reason: itching) amlodipine 5 mg Tablet 5 mg PO QD 30 Days Qty: 30 0RF amoxicillin-pot clavulanate 875-125 mg tablet 1 tab PO BID 7 Days Qty: 14 0RF lidocaine [Lidoderm] 5 % adhesive patch,medicated 1 patch topical DAILY Qty: 30 0RF Rx Instructions: leave on most painful area (tailbone/lumbar spine) for up to 12 hrs tramadol 50 mg tablet 50 mg PO Q8H PRN (Reason: pain) Qty: 20 0RF Print Language: Citizen Of [place] Instructions: Rib Fracture (ED) Referrals: ASHLEY BONILLA [Primary Care Provider] - 1 week
[2023-11-14] MEDS: ACETAMINOPHEN 325 MG TABLET 650 MG PO (01:36)
[2023-11-14 01:53] VITALS: BP 154/84; PULSE 70; O2SAT 98
== END 2023-11-14 02:00 | disposition home or self-care (01) ==
PROVIDERS: Emergency Provider Emergency Medicine; PCP Nurse Practitioner
DX: S22.31XA Fracture of one rib, right side, initial encounter for closed fracture (principal); W19.XXXA Unspecified fall, initial encounter; F03.90 Unspecified dementia, unspecified severity, without behavioral disturbance, psychotic disturbance, mood disturbance, and anxiety; M81.0 Age-related osteoporosis without current pathological fracture; Z87.891 Personal history of nicotine dependence; Z79.82 Long term (current) use of aspirin; Z79.899 Other long term (current) drug therapy; Z87.81 Personal history of (healed) traumatic fracture
CPT/HCPCS: 70450; 71101; 72125; 94667; 99284

== ENCOUNTER 2023-11-30 18:26 | Emergency (ER) | payer MEDICARE, SELFPAY ==
[2023-11-30 18:37] VITALS: BP 162/87; PULSE 73; TEMP 36.8; O2SAT 96; BMI 19.8
--- OUTSIDE RECORDS SUMMARY | 2023-11-30 18:55 | XMS_ITS | CCD ---
Author Organization [facility] Care Team Providers Care Cloth Washer Name Role Phone Rylie Galvan Unavailable Richard He Primary Care Provider UnavailRichard Loomis Primary Care Provider UnavailRichard Loomis Primary Care Provider UnavailJULES Chaves Primary Care Provider MD Juliet Green Admit Provider MD Leighton Valente Other Provider MD Galen Escobar Other Provider [phone] MD Lilian Van Other Provider DO Silvestre Saunders Other Provider [phone] MD Bulmaro Moses II Other Provider MD Yani Cyr Attending Provider [phone] ADELE KATZ Admitting Unavailable DR TAYLOR [...] FAHAD HAMILTON Consulting UnavailAVEL Maciel Consulting Unavailable OLVERA, ASHLEY Primary Care Unavailable JACKIE, DR ONEIL Consulting Unavailable JACKIE, DR ONEIL Admitting Unavailable JACKIE, DR ONEIL Attending Unavailable Leighton Valente Consulting Unavailable Juliet Green Admitting Unavailable Yani Cyr Attending Unavailable Olvera, Ashley J Primary Care Unavailable Galen Escobar Consulting Unavailable Lilian Van Consulting Unavailable Silvestre Saunders Consulting Unavailable Bulamro Moses II Consulting UnavailLeighton Anglin Unavailable Olvera TRIMMER MEATDELROY, Ashley J Primary Care Provid er ITALO DONOHUE Attending Unavailable OLVERAASHLEY J Attending Unavailable OLVREA, ASHLEY J Referring Unavailable OLVERA, ASHLEY J Primary Care Unavailable OLVERA, ASHLEY J Attending Unavailable OLVERA, ASHLEY J Referring Unavailable OLVERA, ASHLEY J Primary Care Unavailable OLVERA, ASHLEY J Attending Unavailable OLVERA, ASHLEY J Referring Unavailable OLVERA, ASHLEY J Primary Care Unavailable OLVERA, ASHLEY J Attending Unavailable OLVERA, ASHLEY J Referring Unavailable OLVERA, ASHLEY J Primary Care Unavailable OLVERA, ASHLEY J Attending Unavailable OLVERA, ASHLEY J Referring Unavailable OLVERA, ASHLEY J Primary Care Unavailable Allergies Allergy Classification Reported Allergen(s) Allergy Type Date of Onset Reaction(s) Facility (6 sources) Tetanus Vaccines And Toxoid; Translations: [TETANUS VACCINES AND TOXOID] Propensity to adverse reactions to drug 01-11-2017 [facility] Medications Current Medications Medication Drug Class(es) Dates [...] by senia every 4 hours as needed. amLODIPine 5 [...] 0 Active take 1 capsule by [facility] every twenty-four hours Lutein 20 MG 1 [...] Comment on above: Take 1 capsule by [facility] twice daily. Take 1 capsule with [...] senia th every 4 hours as needed. simvastatin 20 [...] 10-10-2022 Chronic Other aftercare (1 source) Other [facility]entiary (current) drug therapy; Translations: [OTH BRONC BREAKER CURRENT DRUG THERAPY] Onset: 09-29-2022 Episodic Other fractures (1 source) Fracture of one rib, right side, initial encounter for closed fracture; Translations: [Fracture of one rib, right side, initial encounter for closed fracture] Onset: 11-21-2023 Episodic Other nervous system disorders (5 sources) [...] other nonspecific skin eruption] Onset: 09-27-2023 Episodic Pneumonia (except that caused by tuberculosis [...] screening for cardiovascular disorders] Onset: 07-13-2023 Episodic Pathological fracture (2 sources) History of osteoporotic fracture; Translations: [Personal history of (healed) osteoporosis fracture] Onset: 07-13-2023 10-25-2023 Episodic Screening and history of mental health and substance abuse codes (1 source) Personal history of nicotine dependence; Translations: [PERSONAL HISTORY OF NICOTINE DEPEND] Onset: 05-24-2022 Episodic Superficial injury; contusion (1 source) Contusion [...] Performed By: #### C MP, CMADM #### [facility] [address] [place] [address] Dr. Nidhi Dawn Basophils/100 WBC (Bld) 0.3 % Normal 0.2-2.0 [facility] Comment on above: Performed By: #### C MP, CMADM #### [facility] [address] [place] [address] Dr. Nidhi Dawn EO # 0.1 103/ul Normal 0.0-0.7 [facility] Comment on above: Performed By: #### C DONA, CMADM #### [facility] [address] [place] [address] Dr. Nidhi Dawn Eosinophils/100 WBC (Bld) 1.2 % Normal 0.9-7.0 [facility] Comment on above: Performed By: #### C DONA, CMADM #### [facility] [address] [place] [address] Dr. Nidhi Dawn Erythrocyte distribution width (RBC) [Ratio] 15.7 % Critically high 11.0-15.0 [facility] Comment on above: Performed By: #### C MP, CMADM #### [facility] [address] [place] [address] Dr. Nidhi Dawn Hematocrit (Bld) [Volume fraction] 28.5 % Critically low 36.0-48.0 [facility] Comment on above: Performed By: #### C MP, CMADM #### [facility] [address] [place] [address] Dr. Nidhi Dawn Hemoglobin (Bld) [Mass/Vol] 8.9 g/dL Critically low 12.0-16.0 [facility] Comment on above: Performed By: #### C HELENA CARCAMO #### [facility] [address] [address] [address] Nidhi Dawn IG # 0.04 10e3/ul Critically high 0.00-0.03 [facility] Comment on above: Performed By: #### C DONA, LEONCIODM #### [facility] [address] [address] [address] Nidhi Dawn IG % 0.7 % Critically high 0.0-0.5 [facility] Comment on above: Performed By: #### C HELENA CARCAMO #### [facility] [address] [place] [address] Dr. Nidhi Dawn LYMPH # 0.9 103/ul Critically low 1.2-3.8 [facility] Comment on above: Performed By: #### C HELENA CARCAMO #### [facility] [address] [place] [address] Dr. Nidhi Dawn Lymphocytes/100 WBC (Bld) 15.6 % Critically low 20.5-60.0 [facility] Comment on above: Performed By: #### C HELENA CARCAMO #### [facility] [address] [place] [address] Dr. Nidhi Dawn MANUAL DIFF REQ NO Normal [facility] Comment on above: Performed By: #### C HELENA CARCAMO #### [facility] [address] [place] [address] Dr. Nidhi Dawn MCH (RBC) [Entitic mass] 30.8 pg Normal 26.7-34.0 [facility] Comment on above: Performed By: #### C HELENA CARCAMO #### [facility] [address] [place] [address] Dr. Nidhi Dawn MCHC (RBC) [Mass/Vol] 31.2 g/dL Normal 29.9-35.2 [facility] Comment on above: Performed By: #### C HELENA CARCAMO #### [facility] [address] [address] [address] Nidhi Dawn MCV (RBC) [Entitic vol] 98.6 fL Normal 81.0-99.0 [facility] Comment on above: Performed By: #### C MP, CMADM #### [facility] [address] [place] [address] Dr. Nidhi Dawn MONO # 0.7 103/ul Normal 0.3-0.8 [facility] Comment on above: Performed By: #### C MP, CMADM #### [facility] [address] [place] [address] Dr. Nidhi Dawn Monocytes/100 WBC (Bld) 11.1 % Normal 1.7-12.0 [facility] Comment on above: Performed By: #### C DONA, CMADM #### [facility] [address] [place] [address] Dr. Nidhi Dawn NEUT # 4.2 103/ul Normal 1.4-6.5 [facility] Comment on above: Performed By: #### C DONA, CMADM #### [facility] [address] [place] [address] Dr. Nidhi Dawn Neutrophils/100 WBC (Bld) 71.1 % Normal 43.0-75.0 [facility] Comment on above: Performed By: #### C DONA, CMADM #### [facility] [address] [place] [address] Dr. Nidhi Dawn Platelet mean volume (Bld) [Entitic vol] 8.5 fL Critically low 9.5-13.5 [facility] Comment on above: Performed By: #### C MP, CMADM #### [facility] [address] [place] [address] Dr. Nidhi Dawn PLT 614 103/ul Critically high 150-450 [facility] Comment on above: Performed By: #### C DONA, CMADM #### [facility] [address] [place] [address] Dr. Nidhi Dawn RBC 2.89 106/ul Critically low 4.20-5.40 [facility] Comment on above: Performed By: #### C DONA, CMADM #### [facility] [address] [place], [place] [address] Dr. Nidhi Dawn WBC 5.8 103/ul Normal 4.0-11.0 [facility] Comment on above: Performed By: #### C MP, CMADM #### [facility] [address] [place], [place] [address] Dr. Nidhi Dawn Basic Metabolic Panelon 09-21 Anion gap [Moles/Vol] 8.2 mmol/L Normal 6.0-15.0 [facility] Comment on above: Performed By: #### F ER, FE and TIBC #### [facility] [address] Calcium [Mass/Vol] 9.1 mg/dL Normal 8.6-10.3 [facility] Comment on above: Performed By: #### F ER, FE and TIBC #### [facility] [address] Chloride [Moles/Vol] 102 mmol/L Normal 98-107 [facility] Comment on above: Performed By: #### F ER, FE and TIBC #### [facility] [address] CO2 [Moles/Vol] 30.5 mmol/L Normal 21.0-31.0 [facility] Comment on above: Performed By: #### F ER, FE and TIBC #### [facility] [address] [place] [address] [place] Creatinine [Mass/Vol] 0.35 mg/dL Low 0.60-1.20 [facility] Comment on above: Performed By: #### F ER, FE and TIBC #### [facility] [address] [place] [address] [place] Creatinine Clr Calc Pharmacy 35.59 Normal [facility] Comment on above: Result Comment: PERF ORMED BY: [place] [address] PATHOLOGIST FISHER CLARICE OSWALD M.D. Performed By: #### F ER, FE and TIBC #### [facility] [address] [place] [address] [place] GFR/1.73 sq M.predicted MDRD (S/P/Bld) [Vol rate/Area] mL/min/{1.73_m2} Normal [facility] Comment on above: Performed By: #### F ER, FE and TIBC #### [facility] [address] Glucose [Mass/Vol] 104 mg/dL Normal 74-109 [facility] Comment on above: Result Comment: [facility] Glucose Reference Range is dependent on time and content of last meal. Glucose of more than 200 mg/dL in a nonstressed, ambulatory subject supports the diagnosis of Diabetes Mellitus. ADA recommended reference range Performed By: #### F ER, FE and TIBC #### [facility] [address] Potassium [Moles/Vol] 3.7 mmol/L Normal 3.5-5.1 [facility] Comment on above: Performed By: #### F ER, FE and TIBC #### [facility] [address] Sodium [Moles/Vol] 137 mmol/L Normal 136-145 [facility] Comment on above: Performed By: #### F ER, FE and TIBC #### [facility] [address] [place] [address] [place] Urea nitrogen [Mass/Vol] 10 mg/dL Normal 7-25 [facility] Comment on above: Performed By: #### F ER, FE and TIBC #### [facility] [address] [place] [address] [place] Basophils Auto (Bld) [#/Vol] Ordered By: Yani Cyr on 10-03-2022 Basophils (Bld) [#/Vol] 0.0 10*3/uL 0.0-0.2 [facility] Basophils/100 WBC Auto (Bld) Ordered By: Yani Cyr on 10-03-2022 Basophils/100 WBC (Bld) 0.4 % . [facility] Calcium [Mass/volume] in Ser um or PlasmaOrdered By: Yani Cyr on 10-03-2022 Calcium [Mass/Vol] 9.1 mg/dL 8.6-10.3 [facility] Carbon dioxide, total [Moles /volume] in Serum or PlasmaOrdered By: Yani Cyr on 10-03-2022 CO2 [Moles/Vol] 30.5 mmol/L 21.0-31.0 [facility] Chloride [Moles/volume] in S enma or PlasmaOrdered By: Yani Cyr on 10-03-2022 Chloride [Moles/Vol] 102 mmol/L 98-107 [facility] Complete Blood Count Auto Di ffon 10-03-2022 Basophils (Bld) [#/Vol] 0.0 10*3/uL Normal 0.0-0.2 [facility] Comment on above: Result Comment: PERF ORMED BY: [place] [address] PATHOLOGIST FISHER CLARICE OSWALD M.D. Performed By: #### F ER, FE and TIBC #### [facility] [address] Basophils/100 WBC (Bld) 0.4 % Normal . [facility] Comment on above: Performed By: #### F ER, FE and TIBC #### [facility] [address] Eosinophils (Bld) [#/Vol] 0.1 10*3/uL Normal 0.0-0.45 [facility] Comment on above: Performed By: #### F ER, FE and TIBC #### [facility] [address] [place] [address] [place] Eosinophils/100 WBC (Bld) 1.9 % Normal . [facility] Comment on above: Performed By: #### F ER, FE and TIBC #### [facility] [address] [place] [address] [place] Erythrocyte distribution width (RBC) [Ratio] 14.5 % Normal 11.9-15.3 [facility] Comment on above: Performed By: #### F ER, FE and TIBC #### [address] Hematocrit (Bld) [Volume fraction] 25.7 % Low 34.0-46.4 [facility] Comment on above: Performed By: #### F ER, FE and TIBC #### [address] Hemoglobin (Bld) [Mass/Vol] 8.7 g/dL Low 11.8-15.4 [facility] Comment on above: Performed By: #### F ER, FE and TIBC #### [address] Lymphocytes (Bld) [#/Vol] 1.1 10*3/uL Normal 1.00-4.8 [facility] Comment on above: Performed By: #### F ER, FE and TIBC #### [address] Lymphocytes/100 WBC (Bld) 14.2 % Normal . [facility] Comment on above: Performed By: #### F ER, FE and TIBC #### [address] MCH (RBC) [Entitic mass] 31.5 pg Normal 24.7-34.3 [facility] Comment on above: Performed By: #### F ER, FE and TIBC #### [address] MCV (RBC) [Entitic vol] 92.5 fL Normal 80-100 [facility] Comment on above: Performed By: #### F ER, FE and TIBC #### [address] Mean Corpuscular HGB Conc 34.1 g/dL Normal 32.0-35.0 [facility] Comment on above: Performed By: #### F ER, FE and TIBC #### [address] Monocytes (Bld) [#/Vol] 0.8 10*3/uL Normal 0.0-0.8 [facility] Comment on above: Performed By: #### F ER, FE and TIBC #### [facility] [address] [place] [address] [place] Monocytes/100 WBC (Bld) 10.5 % Normal . [facility] Comment on above: Performed By: #### F ER, FE and TIBC #### [facility] [address] Neutrophils (Bld) [#/Vol] 5.5 10*3/uL Normal 1.8-7.7 [facility] Comment on above: Performed By: #### F ER, FE and TIBC #### [facility] [address] Neutrophils/100 WBC (Bld) 73.0 % Normal . [facility] Comment on above: Performed By: #### F ER, FE and TIBC #### [facility] [address] NRBC% 0.1 /100{WBC} Normal 0-0.5 [facility] Comment on above: Performed By: #### F ER, FE and TIBC #### [facility] [address] Platelet mean volume (Bld) [Entitic vol] 7.5 fL Normal 6.3-10.7 [facility] Comment on above: Performed By: #### F ER, FE and TIBC #### [facility] [address] [place] [address] [place] Platelets (Bld) [#/Vol] 322 10*3/uL Normal 150-450 [facility] Comment on above: Performed By: #### F ER, FE and TIBC #### [facility] [address] [place] [address] [place] RBC (Bld) [#/Vol] 2.77 10*6/uL Low 3.60-5.00 [facility] Comment on above: Performed By: #### F ER, FE and TIBC #### [facility] [address] [place] [address] [place] WBC (Bld) [#/Vol] 7.6 10*3/uL Normal 3.8-11.6 [facility] Comment on above: Performed By: #### F ER, FE and TIBC #### [facility] [address] [place] [address] [place] Creatinine [Mass/volume] in Serum or PlasmaOrdered By: Yani Cyr on 10-03-2022 Creatinine [Mass/Vol] 0.35 mg/dL 0.60-1.20 [facility] Eosinophils Auto (Bld) [#/Vo l]Ordered By: Yani Cyr on 10-03-2022 Eosinophils (Bld) [#/Vol] 0.1 10*3/uL 0.0-0.45 [facility] Eosinophils/100 WBC Auto (Bl d)Ordered By: Yani Cyr on 10-03-2022 Eosinophils/100 WBC (Bld) 1.9 % . [facility] Erythrocyte distribution wid th Auto (RBC) [Ratio]Ordered By: Yani Cyr on 10-03-2022 Erythrocyte distribution width (RBC) [Ratio] 14.5 % 11.9-15.3 [facility] Glucose [Mass/volume] in Ser um or PlasmaOrdered By: Yani Cyr on 10-03-2022 Glucose [Mass/Vol] 104 mg/dL 74-109 [facility] Comment on above: ADA recommended refe rence rangeRandom Glucose Reference Range is dependent on time and content of last meal. Glucose of more than 200 mg/dL in a nonstressed, ambulatory subject supports the diagnosis of Diabetes Mellitus. Hematocrit Auto (Bld) [Volum e fraction]Ordered By: Yani Cyr on 10-03-2022 Hematocrit (Bld) [Volume fraction] 25.7 % 34.0-46.4 [facility] Hemoglobin [Mass/volume] in BloodOrdered By: Yani Cyr on 10-03-2022 Hemoglobin (Bld) [Mass/Vol] 8.7 g/dL 11.8-15.4 [facility] - Chemistry and C hemistry - challengeOrdered By: Yani Cyr on 10-03-2022 GFR/1.73 sq M.predicted MDRD (S/P/Bld) [Vol rate/Area] mL/min/{1.73_m2} [facility] Leukocytes [#/volume] correc anna marie for nucleated erythrocytes in Blood by Automated counOrdered By: Yani Cyr on 10-03-2022 WBC corrected for nucl RBC Auto (Bld) [#/Vol] 7.6 10*3/uL 3.8-11.6 [facility] Lymphocytes Auto (Bld) [#/Vo l]Ordered By: Yani Cyr on 10-03-2022 Lymphocytes (Bld) [#/Vol] 1.1 10*3/uL 1.00-4.8 [facility] Lymphocytes/100 WBC Auto (Bl d)Ordered By: Yani Cyr on 10-03-2022 Lymphocytes/100 WBC (Bld) 14.2 % . [facility] MCH Auto (RBC) [Entitic mass ]Ordered By: Yani Cyr on 10-03-2022 MCH (RBC) [Entitic mass] 31.5 pg 24.7-34.3 [facility] MCHC Auto (RBC) [Mass/Vol]Or dered By: Yani Cyr on 10-03-2022 MCHC (RBC) [Mass/Vol] 34.1 g/dL 32.0-35.0 [facility] MCV Auto (RBC) [Entitic vol] Ordered By: Yani Cyr on 10-03-2022 MCV (RBC) [Entitic vol] 92.5 fL 80-100 [facility] Monocytes Auto (Bld) [#/Vol] Ordered By: Yani Cyr on 10-03-2022 Monocytes (Bld) [#/Vol] 0.8 10*3/uL 0.0-0.8 [facility] Monocytes/100 WBC Auto (Bld) Ordered By: Yani Cyr on 10-03-2022 Monocytes/100 WBC (Bld) 10.5 % . [facility] Neutrophils Auto (Bld) [#/Vo l]Ordered By: Yani Cyr on 10-03-2022 Neutrophils (Bld) [#/Vol] 5.5 10*3/uL 1.8-7.7 [facility] Neutrophils/100 WBC Auto (Bl d)Ordered By: Yani Cyr on 10-03-2022 Neutrophils/100 WBC (Bld) 73.0 % . [facility] No Panel InformationOrdered By: Yani Cyr on 10-03-2022 Pharmacy Creatinine Clearance (Chem 35.59 [facility] Nucleated erythrocytes [Pres ence] in Blood by Automated countOrdered By: Yani Cyr on 10-03-2022 Nucleated RBC Auto Ql (Bld) 0.1 /100{WBC} 0-0.5 [facility] Platelet mean volume Auto (B ld) [Entitic vol]Ordered By: Yani Cyr on 10-03-2022 Platelet mean volume (Bld) [Entitic vol] 7.5 fL 6.3-10.7 [facility] Platelets Auto (Bld) [#/Vol] Ordered By: Yani Cyr on 10-03-2022 Platelets (Bld) [#/Vol] 322 10*3/uL 150-450 [facility] Potassium [Moles/volume] in Serum or PlasmaOrdered By: Yani Cyr on 10-03-2022 Potassium [Moles/Vol] 3.7 mmol/L 3.5-5.1 [facility] RBC Auto (Bld) [#/Vol]Ordere d By: Yani Cyr on 10-03-2022 RBC (Bld) [#/Vol] 2.77 10*6/uL 3.60-5.00 [facility] Serum or plasma anion gap de terminationOrdered By: Yani Cyr on 10-03-2022 Anion gap [Moles/Vol] 8.2 mmol/L 6.0-15.0 [facility] Sodium [Moles/volume] in Ser um or PlasmaOrdered By: Yani Cyr on 10-03-2022 Sodium [Moles/Vol] 137 mmol/L 136-145 [facility] Urea nitrogen [Mass/volume] in Serum or PlasmaOrdered By: Yani Cyr on 10-03-2022 Urea nitrogen [Mass/Vol] 10 mg/dL 7-25 [facility] WBC Auto (Bld) [#/Vol]Ordere d By: Yani Cyr on 10-03-2022 WBC (Bld) [#/Vol] 7.6 10*3/uL 3.8-11.6 [facility] XR hip LT min 2V(w/wo pelvis )*on 10-03-2022 XR hip LT min 2V(w/wo pelvis)* [facility] [place] [address] [place] [id number] XRay Report Signed Patient: Annamaria Garcia MR#: [id number] : 1935 Acct:[id number] Age/Sex: 87 / F ADM Date: 09/28/22 Loc: Room: [address] [place] [address] Type: ADM IN Attending Dr: Yani Cyr [...] Forrester Jr., D.O.10/03/2022 10:04 AM Dictation Location: [place] [address] Transcribed By: [facility] 10/03/22 1004 Dictated By: Josse Forrester Jr, DO 10/03/22 1003 Signed By: 10/03/22 1004 Normal [facility] Hemoglobin and Hematocriton 10-02-2022 Hematocrit (Bld) [Volume fraction] 21.3 % Low 34.0-46.4 [facility] Comment on above: Result Comment: PERF ORMED BY: [address] [address] PATHOLOGIST FISHER CLARICE OSWALD M.D. Performed By: #### F ER, FE and TIBC #### [facility] [address] Hemoglobin (Bld) [Mass/Vol] 7.3 g/dL Low 11.8-15.4 [facility] Comment on above: Performed By: #### F ER, FE and TIBC #### [facility] [address] Complete Blood Count Auto Di ffon 10-01-2022 Basophils (Bld) [#/Vol] 0.0 10*3/uL Normal 0.0-0.2 [facility] Comment on above: Result Comment: PERF ORMED BY: [place] [address] PATHOLOGIST FISHER CLARICE OSWALD M.D. Performed By: #### C BC #### [address] Basophils/100 WBC (Bld) 0.3 % Normal . [facility] Comment on above: Performed By: #### C BC #### [facility] [address] Eosinophils (Bld) [#/Vol] 0.1 10*3/uL Normal 0.0-0.45 [facility] Comment on above: Performed By: #### C BC #### [address] Eosinophils/100 WBC (Bld) 1.0 % Normal . [facility] Comment on above: Performed By: #### C BC #### [address] Erythrocyte distribution width (RBC) [Ratio] 13.8 % Normal 11.9-15.3 [facility] Comment on above: Performed By: #### C BC #### [address] Hematocrit (Bld) [Volume fraction] 21.8 % Low 34.0-46.4 [facility] Comment on above: Performed By: #### C BC #### [address] Hemoglobin (Bld) [Mass/Vol] 7.4 g/dL Low 11.8-15.4 [facility] Comment on above: Performed By: #### C BC #### [address] Lymphocytes (Bld) [#/Vol] 0.9 10*3/uL Low 1.00-4.8 [facility] Comment on above: Performed By: #### C BC #### [address] Lymphocytes/100 WBC (Bld) 12.7 % Normal . [facility] Comment on above: Performed By: #### C BC #### [address] MCH (RBC) [Entitic mass] 31.0 pg Normal 24.7-34.3 [facility] Comment on above: Performed By: #### C BC #### [address] MCV (RBC) [Entitic vol] 91.8 fL Normal 80-100 [facility] Comment on above: Performed By: #### C BC #### [address] Mean Corpuscular HGB Conc 33.8 g/dL Normal 32.0-35.0 [facility] Comment on above: Performed By: #### C BC #### [address] Monocytes (Bld) [#/Vol] 1.0 10*3/uL High 0.0-0.8 [facility] Comment on above: Performed By: #### C BC #### [place] [address] [place] Monocytes/100 WBC (Bld) 13.6 % Normal . [facility] Comment on above: Performed By: #### C BC #### [place] [address] [place] Neutrophils (Bld) [#/Vol] 5.3 10*3/uL Normal 1.8-7.7 [facility] Comment on above: Performed By: #### C BC #### [facility] [address] Neutrophils/100 WBC (Bld) 72.4 % Normal . [facility] Comment on above: Performed By: #### C BC #### [facility] [address] NRBC% 0.0 /100{WBC} Normal 0-0.5 [facility] Comment on above: Performed By: #### C BC #### [facility] [address] Platelet mean volume (Bld) [Entitic vol] 8.0 fL Normal 6.3-10.7 [facility] Comment on above: Performed By: #### C BC #### [facility] [address] Platelets (Bld) [#/Vol] 208 10*3/uL Normal 150-450 [facility] Comment on above: Performed By: #### C BC #### [address] RBC (Bld) [#/Vol] 2.37 10*6/uL Low 3.60-5.00 [facility] [facility] Comment on above: Performed By: #### C BC #### [facility] [address] WBC (Bld) [#/Vol] 7.3 10*3/uL Normal 3.8-11.6 [facility] Comment on above: Performed By: #### C BC #### [facility] [address] Basic Metabolic Panelon 03- 0-2022 Anion gap [Moles/Vol] 8.7 mmol/L Normal 6.0-15.0 [facility] Comment on above: Performed By: #### B MP, CBC #### [facility] [address] [place] [address] [place] Calcium [Mass/Vol] 8.3 mg/dL Low 8.6-10.3 [facility] Comment on above: Performed By: #### B MP, CBC #### [facility] [address] Chloride [Moles/Vol] 111 mmol/L High 98-107 [facility] Comment on above: Performed By: #### B MP, CBC #### [facility] [address] CO2 [Moles/Vol] 26.5 mmol/L Normal 21.0-31.0 [facility] Comment on above: Performed By: #### B MP, CBC #### [facility] [address] Creatinine [Mass/Vol] 0.37 mg/dL Low 0.60-1.20 [facility] Comment on above: Performed By: #### B MP, CBC #### [facility] [address] Creatinine Clr Calc Pharmacy 35.59 [facility] Comment on above: Result Comment: PERF ORMED BY: [place] [address] PATHOLOGIST FISHER CLARICE OSWALD M.D. Performed By: #### B MP, CBC #### [place] [address] [place] GFR/1.73 sq M.predicted MDRD (S/P/Bld) [Vol rate/Area] mL/min/{1.73_m2} [facility] Comment on above: Performed By: #### B MP, CBC #### [facility] [address] Glucose [Mass/Vol] 102 mg/dL Normal 74-109 [facility] Comment on above: Result Comment: [place] Glucose Reference Range is dependent on time and content of last meal. Glucose of more than 200 mg/dL in a nonstressed, ambulatory subject supports the diagnosis of Diabetes Mellitus. ADA recommended reference range Performed By: #### B MP, CBC #### [facility] [address] Potassium [Moles/Vol] 4.2 mmol/L Normal 3.5-5.1 [facility] Comment on above: Performed By: #### B MP, CBC #### [address] Sodium [Moles/Vol] 142 mmol/L Normal 136-145 [facility] Comment on above: Performed By: #### B MP, CBC #### [address] Urea nitrogen [Mass/Vol] 16 mg/dL Normal 7-25 [facility] Comment on above: Performed By: #### B MP, CBC #### [address] Complete Blood Count Auto Di ffon 09-30-2022 Basophils (Bld) [#/Vol] 0.0 10*3/uL Normal 0.0-0.2 [facility] Comment on above: Result Comment: PERF ORMED BY: [place] [address] PATHOLOGIST FISHER CLARICE OSWALD M.D. Performed By: #### B MP, CBC #### [address] Basophils/100 WBC (Bld) 0.3 % Normal . [facility] Comment on above: Performed By: #### B MP, CBC #### [address] Eosinophils (Bld) [#/Vol] 0.0 10*3/uL Normal 0.0-0.45 [facility] Comment on above: Performed By: #### B MP, CBC #### [place] [address] [place] Eosinophils/100 WBC (Bld) 0.3 % Normal . [facility] Comment on above: Performed By: #### B MP, CBC #### [address] Erythrocyte distribution width (RBC) [Ratio] 14.1 % Normal 11.9-15.3 [facility] Comment on above: Performed By: #### B MP, CBC #### [address] Hematocrit (Bld) [Volume fraction] 22.3 % Low 34.0-46.4 [facility] Comment on above: Performed By: #### B MP, CBC #### [address] Hemoglobin (Bld) [Mass/Vol] 7.8 g/dL Low 11.8-15.4 [facility] Comment on above: Performed By: #### B MP, CBC #### [address] Lymphocytes (Bld) [#/Vol] 1.0 10*3/uL Normal 1.00-4.8 [facility] Comment on above: Performed By: #### B MP, CBC #### [address] Lymphocytes/100 WBC (Bld) 12.9 % Normal . [facility] Comment on above: Performed By: #### B MP, CBC #### [address] MCH (RBC) [Entitic mass] 31.9 pg Normal 24.7-34.3 [facility] Comment on above: Performed By: #### B MP, CBC #### [address] MCV (RBC) [Entitic vol] 91.3 fL Normal 80-100 [facility] Comment on above: Performed By: #### B MP, CBC #### [address] Mean Corpuscular HGB Conc 34.9 g/dL Normal 32.0-35.0 [facility] Comment on above: Performed By: #### B MP, CBC #### [address] Monocytes (Bld) [#/Vol] 1.1 10*3/uL High 0.0-0.8 [facility] Comment on above: Performed By: #### B MP, CBC #### [address] Monocytes/100 WBC (Bld) 13.3 % Normal . [facility] Comment on above: Performed By: #### B MP, CBC #### [facility] [address] Neutrophils (Bld) [#/Vol] 5.9 10*3/uL Normal 1.8-7.7 [facility] Comment on above: Performed By: #### B MP, CBC #### [address] Neutrophils/100 WBC (Bld) 73.2 % Normal . [facility] Comment on above: Performed By: #### B MP, CBC #### [facility] [address] [place] [address] NRBC% 0.0 /100{WBC} Normal 0-0.5 [facility] Comment on above: Performed By: #### B MP, CBC #### [facility] [address] [place] [address] Platelet mean volume (Bld) [Entitic vol] 8.2 fL Normal 6.3-10.7 [facility] Comment on above: Performed By: #### B MP, CBC #### [facility] [address] [place] [address] [place] Platelets (Bld) [#/Vol] 182 10*3/uL Normal 150-450 [facility] Comment on above: Performed By: #### B MP, CBC #### [facility] [address] [place] [address] [place] RBC (Bld) [#/Vol] 2.44 10*6/uL Low 3.60-5.00 [facility] Comment on above: Performed By: #### B MP, CBC #### [address] WBC (Bld) [#/Vol] 8.0 10*3/uL Normal 3.8-11.6 [facility] Comment on above: Performed By: #### B MP, CBC #### [facility] [address] [place] [address] [place] Ferritinon 09-30-2022 Ferritin [Mass/Vol] 53.4 ng/mL Normal 11.0-306.8 [facility] Comment on above: Order Comment: Comme nt add on Result Comment: PERF ORMED BY: [place] [address] PATHOLOGIST FISHER CLARICE OSWALD M.D. Performed By: #### F ER, FE and TIBC #### [facility] [address] [place] [address] Ferritin [Mass/volume] in Se rum or PlasmaOrdered By: Mimi Artis on 09-30-2022 Ferritin [Mass/Vol] 53.4 ng/mL 11.0-306.8 [facility] Hemoglobin and Hematocriton 09-30-2022 Hematocrit (Bld) [Volume fraction] 25.5 % Low 34.0-46.4 [facility] Comment on above: Result Comment: PERF ORMED BY: [place] [address] PATHOLOGIST FISHER CLARICE OSWALD M.D. Performed By: #### F ER, FE and TIBC #### [facility] [address] [place] [address] Hemoglobin (Bld) [Mass/Vol] 8.6 g/dL Low 11.8-15.4 [facility] Comment on above: Performed By: #### F ER, FE and TIBC #### [facility] [address] [place] [address] Iron [Mass/volume] in Serum or PlasmaOrdered By: Mimi Artis on 09-30-2022 Iron [Mass/Vol] 20 ug/dL 50-212 [facility] Iron and TIBC Profileon 09-21 0 % Iron Saturation 7.0 % Low 20-50 [facility] Comment on above: Order Comment: Comme nt add on Performed By: #### F ER, FE and TIBC #### [facility] [address] Iron [Mass/Vol] 20 ug/dL Low 50-212 [facility] Comment on above: Order Comment: Comme nt add on Performed By: #### F ER, FE and TIBC #### [facility] [address] Total Iron Binding Capacity 286 ug/dL Normal 255-450 [facility] Comment on above: Order Comment: Comme nt add on Performed By: #### F ER, FE and TIBC #### [facility] [address] Transferrin [Mass/Vol] 204 mg/dL Normal 203-362 [facility] Comment on above: Order Comment: Comme nt add on Performed By: #### F ER, FE and TIBC #### [facility] [address] Iron binding capacity [Mass/ volume] in Serum or PlasmaOrdered By: Mimi Artis on 09-30-2022 Iron binding capacity [Mass/Vol] 286 ug/dL 255-450 [facility] Iron saturation [Mass Fracti on] in Serum or PlasmaOrdered By: Mimi Obika on 09-30-2022 Iron saturation [Mass fraction] 7.0 % 20-50 [facility] Transferrin [Mass/volume] in Serum or PlasmaOrdered By: Mimi Obika on 09-30-2022 Transferrin [Mass/Vol] 204 mg/dL 203-362 [facility] Basic Metabolic Panelon 030 Anion gap [Moles/Vol] 12.9 mmol/L Normal 6.0-15.0 [facility] Comment on above: Performed By: #### B MP, SCAN CBC #### [facility] [address] Calcium [Mass/Vol] 8.9 mg/dL Normal 8.6-10.3 [facility] Comment on above: Performed By: #### B MP, SCAN CBC #### [facility] [address] [place] [address] [place] Chloride [Moles/Vol] 108 mmol/L High 98-107 [facility] Comment on above: Performed By: #### B MP, SCAN CBC #### [facility] [address] [place] [address] [place] CO2 [Moles/Vol] 21.4 mmol/L Normal 21.0-31.0 [facility] Comment on above: Performed By: #### B MP, SCAN CBC #### [facility] [address] [place] [address] [place] Creatinine [Mass/Vol] 0.56 mg/dL Low 0.60-1.20 [facility] Comment on above: Performed By: #### B MP, SCAN CBC #### [facility] [address] [place] [address] [place] Creatinine Clr Calc Pharmacy 35.59 [facility] Comment on above: Result Comment: PERF ORMED BY: [place] [address] PATHOLOGIST FISHER CLARICE OSWALD M.D. Performed By: #### B MP, SCAN CBC #### [facility] [address] [place] [address] [place] GFR/1.73 sq M.predicted MDRD (S/P/Bld) [Vol rate/Area] mL/min/{1.73_m2} [facility] Comment on above: Performed By: #### B MP, SCAN CBC #### [facility] [address] [place] [address] [place] Glucose [Mass/Vol] 118 mg/dL High 74-109 [facility] Comment on above: Result Comment: [place] Glucose Reference Range is dependent on time and content of last meal. Glucose of more than 200 mg/dL in a nonstressed, ambulatory subject supports the diagnosis of Diabetes Mellitus. ADA recommended reference range Performed By: #### B MP, SCAN CBC #### [facility] [address] [place] [address] [place] Potassium [Moles/Vol] 4.3 mmol/L Normal 3.5-5.1 [facility] Comment on above: Performed By: #### B MP, SCAN CBC #### [facility] [address] [place] [address] [place] Sodium [Moles/Vol] 138 mmol/L Normal 136-145 [facility] Comment on above: Performed By: #### B MP, SCAN CBC #### [facility] [address] [place] [address] [place] Urea nitrogen [Mass/Vol] 16 mg/dL Normal 7-25 [facility] Comment on above: Performed By: #### B MP, SCAN CBC #### [facility] [address] [place] [address] [place] Platelet adequacy [Presence] in Blood by Light microscopyOrdered By: Mimi Artis on 09-29-2022 Platelets LM Ql (Bld) Normal Normal [facility] Platelet morphology finding [Identifier] in BloodOrdered By: Mimi Artis on 09-29-2022 Platelet morphology finding Nom (Bld) Normal Normal [facility] RBC morphologyOrdered By: Rosalba Artis on 09-29-2022 RBC morphology finding Nom (Bld) Normal Normal [facility] Scan and CBCon 09-29-2022 Basophils (Bld) [#/Vol] 0.0 10*3/uL Normal 0.0-0.2 [facility] Comment on above: Performed By: #### B MP, SCAN CBC #### [facility] [address] [place] [address] [place] Basophils/100 WBC (Bld) 0.1 % Normal . [facility] Comment on above: Performed By: #### B MP, SCAN CBC #### [facility] [address] [place] [address] [place] Eosinophils (Bld) [#/Vol] 0.0 10*3/uL Normal 0.0-0.45 [facility] Comment on above: Performed By: #### B MP, SCAN CBC #### [facility] [address] [place] [address] [place] Eosinophils/100 WBC (Bld) 0.0 % Normal . [facility] Comment on above: Performed By: #### B MP, SCAN CBC #### [facility] [address] Erythrocyte distribution width (RBC) [Ratio] 14.2 % Normal 11.9-15.3 [facility] Comment on above: Performed By: #### B MP, SCAN CBC #### [facility] [address] Hematocrit (Bld) [Volume fraction] 27.0 % Low 34.0-46.4 [facility] Comment on above: Performed By: #### B MP, SCAN CBC #### [facility] [address] Hemoglobin (Bld) [Mass/Vol] 9.1 g/dL Low 11.8-15.4 [facility] Comment on above: Performed By: #### B MP, SCAN CBC #### [address] Lymphocytes (Bld) [#/Vol] 0.9 10*3/uL Low 1.00-4.8 [facility] Comment on above: Performed By: #### B MP, SCAN CBC #### [place] [address] [place] Lymphocytes/100 WBC (Bld) 7.1 % Normal . [facility] Comment on above: Performed By: #### B MP, SCAN CBC #### [facility] [address] [place] [address] [place] MCH (RBC) [Entitic mass] 30.9 pg Normal 24.7-34.3 [facility] Comment on above: Performed By: #### B MP, SCAN CBC #### [facility] [address] [place] [address] [place] MCV (RBC) [Entitic vol] 91.6 fL Normal 80-100 [facility] Comment on above: Performed By: #### B MP, SCAN CBC #### [facility] [address] Mean Corpuscular HGB Conc 33.7 g/dL Normal 32.0-35.0 [facility] Comment on above: Performed By: #### B MP, SCAN CBC #### [facility] [address] [place] [address] [place] Monocytes (Bld) [#/Vol] 1.7 10*3/uL High 0.0-0.8 [facility] Comment on above: Performed By: #### B MP, SCAN CBC #### [facility] [address] [place] [address] [place] Monocytes/100 WBC (Bld) 13.5 % Normal . [facility] Comment on above: Performed By: #### B MP, SCAN CBC #### [facility] [address] [place] [address] [place] Neutrophils (Bld) [#/Vol] 10.2 10*3/uL High 1.8-7.7 [facility] Comment on above: Performed By: #### B MP, SCAN CBC #### [address] Neutrophils/100 WBC (Bld) 79.3 % Normal . [facility] Comment on above: Performed By: #### B MP, SCAN CBC #### [facility] [address] [place] [address] [place] NRBC% 0.0 /100{WBC} Normal 0-0.5 [facility] Comment on above: Performed By: #### B MP, SCAN CBC #### [facility] [address] [place] [address] Platelet Estimate Normal Normal Normal [facility] Comment on above: Performed By: #### B MP, SCAN CBC #### [facility] [address] [place] [address] [place] Platelet mean volume (Bld) [Entitic vol] 8.0 fL Normal 6.3-10.7 [facility] Comment on above: Performed By: #### B MP, SCAN CBC #### [facility] [address] [place] [address] Platelet Morphology Normal Normal Normal [facility] Comment on above: Result Comment: PERF ORMED BY: [place] [address] PATHOLOGIST FISHER CLARICE OSWALD M.D. Performed By: #### B MP, SCAN CBC #### [facility] [address] [place] [address] [place] Platelets (Bld) [#/Vol] 220 10*3/uL Normal 150-450 [facility] Comment on above: Performed By: #### B MP, SCAN CBC #### [facility] [address] RBC (Bld) [#/Vol] 2.95 10*6/uL Low 3.60-5.00 [facility] Comment on above: Performed By: #### B MP, SCAN CBC #### [facility] [address] RBC morphology finding Nom (Bld) Normal Normal Normal [facility] Comment on above: Performed By: #### B MP, SCAN CBC #### [facility] [address] WBC (Bld) [#/Vol] 12.9 10*3/uL High 3.8-11.6 [facility] Comment on above: Performed By: #### B MP, SCAN CBC #### [facility] [address] [place] [address] [place] XR hip LT min 2V(w/wo pelvis )*on 09-29-2022 XR hip LT min 2V(w/wo pelvis)* [facility] [place] [address] [place] [address] XRay Report Signed Patient: Annamaria Garcia MR#: [id number] : 1935 Acct:[id number] Age/Sex: 87 / F ADM Date: 09/28/22 Loc: Room: [address] [place] [address] Type: ADM IN Attending Dr: Adama Kothari [...] Angie Francisco M.D.09/29/2022 11:29 AM Dictation Location: [facility]- Transcribed By: [facility] 09/29/22 112 Dictated By: Angie Francisco MD 09/29/22 1127 Signed By: 09/29/22 1129 Normal [facility] ABO AND RH TYPEon 09-28-2022 ABO and Rh group Nom (Bld) ABO Rh Typing A Rh Positive Normal [facility] Comment on above: Performed By: #### C MP, CMADM #### [facility] [address] [address] [address] Nidhi Dawn Albumin Levelon 09-28-2022 Albumin [Mass/Vol] 4.0 g/dL Normal 3.5-5.7 [facility] Comment on above: Result Comment: PERF ORMED BY: [place] [address] PATHOLOGIST FISHER CLARICE OSWALD M.D. Performed By: #### F ER, FE and TIBC #### [facility] [address] Albumin [Mass/volume] in Ser um or Plasma by Bromocresol green (BCG) dye binding methoOrdered By: Bulmaro Moses on 09-28-2022 Albumin BCG dye [Mass/Vol] 4.0 g/dL 3.5-5.7 [facility] Basic Metabolic Panelon Anion gap [Moles/Vol] 10.8 mmol/L Normal 6.0-15.0 [facility] Comment on above: Performed By: #### F ER, FE and TIBC #### [facility] [address] [place] [address] [place] Calcium [Mass/Vol] 9.0 mg/dL Normal 8.6-10.3 [facility] Comment on above: Performed By: #### F ER, FE and TIBC #### [facility] [address] [place] [address] [place] Chloride [Moles/Vol] 103 mmol/L Normal 98-107 [facility] Comment on above: Performed By: #### F ER, FE and TIBC #### [facility] [address] [place] [address] [place] CO2 [Moles/Vol] 28.5 mmol/L Normal 21.0-31.0 [facility] Comment on above: Performed By: #### F ER, FE and TIBC #### [facility] [address] Creatinine [Mass/Vol] 0.40 mg/dL Low 0.60-1.20 [facility] Comment on above: Performed By: #### F ER, FE and TIBC #### [facility] [address] [place] [address] [place] Creatinine Clr Calc Pharmacy 31.68 [facility] Comment on above: Result Comment: PERF ORMED BY: [place] [address] PATHOLOGIST FISHER CLARICE OSWALD M.D. Performed By: #### F ER, FE and TIBC #### [facility] [address] GFR/1.73 sq M.predicted MDRD (S/P/Bld) [Vol rate/Area] mL/min/{1.73_m2} [facility] Comment on above: Performed By: #### F ER, FE and TIBC #### [facility] [address] [place] [address] [place] Glucose [Mass/Vol] 143 mg/dL High 74-109 [facility] Comment on above: Result Comment: [place] om Glucose Reference Range is dependent on time and content of last meal. Glucose of more than 200 mg/dL in a nonstressed, ambulatory subject supports the diagnosis of Diabetes Mellitus. ADA recommended reference range Performed By: #### F ER, FE and TIBC #### [facility] [address] Potassium [Moles/Vol] 3.3 mmol/L Low 3.5-5.1 [facility] Comment on above: Performed By: #### F ER, FE and TIBC #### [facility] [address] Sodium [Moles/Vol] 139 mmol/L Normal 136-145 [facility] Comment on above: Performed By: #### F ER, FE and TIBC #### [facility] [address] Urea nitrogen [Mass/Vol] 8 mg/dL Normal 7-25 [facility] Comment on above: Performed By: #### F ER, FE and TIBC #### [facility] [address] ABD/PELVIS WO CONon 09-28 CT [...] RAVEN RENNER Date: 2022-09-27 22:38 Normal [facility] CT CSPINE WO CONon 3 CT [...] by: SOPHIE SINGLETON Date: 2022-09-27 22:42 Normal [facility] CT HEAD WO CONon 09-28-2022 CT [...] RAVEN RENNER Date: 2022-09-27 22:43 Normal [facility] CT LSPINE WO CONon 3 CT [...] KANU BURK Date: 2022-09-27 22:42 Normal [facility] Complete Blood Count Auto Di ffon 09-28-2022 Basophils (Bld) [#/Vol] 0.0 10*3/uL Normal 0.0-0.2 [facility] Comment on above: Result Comment: PERF ORMED BY: [address] [place] [address] PATHOLOGIST FISHER CLARICE OSWALD M.D. Performed By: #### F ER, FE and TIBC #### [facility] [address] Basophils/100 WBC (Bld) 0.0 % Normal . [facility] Comment on above: Performed By: #### F ER, FE and TIBC #### [address] Eosinophils (Bld) [#/Vol] 0.0 10*3/uL Normal 0.0-0.45 [facility] Comment on above: Performed By: #### F ER, FE and TIBC #### [address] Eosinophils/100 WBC (Bld) 0.0 % Normal . [facility] Comment on above: Performed By: #### F ER, FE and TIBC #### [address] Erythrocyte distribution width (RBC) [Ratio] 13.9 % Normal 11.9-15.3 [facility] Comment on above: Performed By: #### F ER, FE and TIBC #### [address] Hematocrit (Bld) [Volume fraction] 33.9 % Low 34.0-46.4 [facility] Comment on above: Performed By: #### F ER, FE and TIBC #### [address] Hemoglobin (Bld) [Mass/Vol] 11.5 g/dL Low 11.8-15.4 [facility] Comment on above: Performed By: #### F ER, FE and TIBC #### [place] [address] [place] Lymphocytes (Bld) [#/Vol] 0.6 10*3/uL Low 1.00-4.8 [facility] Comment on above: Performed By: #### F ER, FE and TIBC #### [address] Lymphocytes/100 WBC (Bld) 4.7 % Normal . [facility] Comment on above: Performed By: #### F ER, FE and TIBC #### [facility] [address] MCH (RBC) [Entitic mass] 30.8 pg Normal 24.7-34.3 [facility] Comment on above: Performed By: #### F ER, FE and TIBC #### [address] MCV (RBC) [Entitic vol] 90.8 fL Normal 80-100 [facility] Comment on above: Performed By: #### F ER, FE and TIBC #### [address] Mean Corpuscular HGB Conc 34.0 g/dL Normal 32.0-35.0 [facility] Comment on above: Performed By: #### F ER, FE and TIBC #### [address] Monocytes (Bld) [#/Vol] 0.9 10*3/uL High 0.0-0.8 [facility] Comment on above: Performed By: #### F ER, FE and TIBC #### [address] Monocytes/100 WBC (Bld) 7.4 % Normal . [facility] Comment on above: Performed By: #### F ER, FE and TIBC #### [address] Neutrophils (Bld) [#/Vol] 10.7 10*3/uL High 1.8-7.7 [facility] Comment on above: Performed By: #### F ER, FE and TIBC #### [address] Neutrophils/100 WBC (Bld) 87.9 % Normal . [facility] Comment on above: Performed By: #### F ER, FE and TIBC #### [address] NRBC% 0.1 /100{WBC} Normal 0-0.5 [facility] Comment on above: Performed By: #### F ER, FE and TIBC #### [facility] [address] Platelet mean volume (Bld) [Entitic vol] 8.0 fL Normal 6.3-10.7 [facility] Comment on above: Performed By: #### F ER, FE and TIBC #### [facility] [address] Platelets (Bld) [#/Vol] 253 10*3/uL Normal 150-450 [facility] Comment on above: Performed By: #### F ER, FE and TIBC #### [facility] [address] RBC (Bld) [#/Vol] 3.73 10*6/uL Normal 3.60-5.00 [facility] Comment on above: Performed By: #### F ER, FE and TIBC #### [facility] [address] WBC (Bld) [#/Vol] 12.2 10*3/uL High 3.8-11.6 [facility] Comment on above: Performed By: #### F ER, FE and TIBC #### [address] ECG 12 lead ECGon 09-28-2022 ECG 12 lead ECG [facility] [place] [address] [place] [address] Electrocardiograph Report Signed Patient: Annamaria Garcia MR#: [id number] : 1935 Acct:[id number] Age/Sex: 87 / F ADM Date: 09/28/22 Loc: Room: [address] [place] [address] Type: ADM IN Attending Dr: Adama Kothari [...] Estee Knight MD 0 09/28/22 1508 Normal [facility] ER URINE PROFILEon 3 Bilirubin Ql (U) Negative Normal NEGATIVE [facility] Comment on above: Performed By: #### C MP, CMADM #### [facility] [address] [place] [address] Dr. Nidhi Dawn Clarity (U) CLEAR Normal CLEAR [facility] Comment on above: Performed By: #### C MP, CMADM #### [facility] [address] [place] [address] Dr. Nidhi Dawn Color (U) LT. YELLOW Normal YELLOW [facility] Comment on above: Performed By: #### C MP, CMADM #### [facility] [address] [address] [address] Nidhi TERRAZAS A micrscopic examina tion will be performed if indicated. Normal [facility] Comment on above: Performed By: #### C MP, CMADM #### [facility] [address] [place] [address] Dr. Nidhi Dawn Glucose Ql (U) Negative Normal NEGATIVE [facility] Comment on above: Performed By: #### C MP, CMADM #### [facility] [address] [address] [address] Nidhi Dawn Hemoglobin Ql (U) Negative Normal NEGATIVE [facility] Comment on above: Performed By: #### C MP, CMADM #### [facility] [address] [place] [address] Dr. Nidhi Dawn Ketones Ql (U) 40 mg/dl Abnormal NEGATIVE [facility] Comment on above: Performed By: #### C MP, CMADM #### [facility] [address] [address] [address] Nidhi Dawn LEUKOCYTES Negative Normal NEGATIVE [facility] Comment on above: Performed By: #### C MP, CMADM #### [facility] [address] [address] [address] Nidhi Dawn Nitrite Ql (U) Negative Normal NEGATIVE [facility] Comment on above: Performed By: #### C DONA, CMADM #### [facility] [address] [place] [address] Dr. Nidhi Dawn pH (U) 7.0 [pH] Normal 5-9 [facility] Comment on above: Performed By: #### C DONA, CMADM #### [facility] [address] [place] [address] Dr. Nidhi Dawn SPEC GRAVITY 1.010 Normal 1.005-<=1.0 25 [facility] Comment on above: Performed By: #### C DONA, CMADM #### [facility] [address] [place] [address] Dr. Nidhi Dawn UA PROTEIN TRACE Normal NEGATIVE/ TRACE [facility] Comment on above: Performed By: #### C DONA, CMADM #### [facility] [address] [place] [address] Dr. Nidhi Dawn UR MICRO IND NOT INDICATED Normal [facility] Comment on above: Performed By: #### C DONA, CMADM #### [facility] [address] [place] [address] Dr. Nidhi Dawn Urobilinogen Qn (U) 0.2 {Lawrence'U}/dL Normal 0.2 - 1. 0 [facility] Comment on above: Performed By: #### C DONA, CMADM #### [facility] [address] [place] [address] Dr. Nidhi Dawn Glucose Glucometer (dC) [M ass/Vol]Ordered By: Juliet Green on 09-28-2022 Glucose [Mass/Vol] 107 mg/dL [facility] Comment on above: Random Glucose Refer ence Range is dependent on time and content of last meal. Glucose of more than 200 mg/dL in a nonstressed, ambulatory subject supports the diagnosis of Diabetes Mellitus. Glucose Poct Glucometerson 0 09-28-2022 Glucose [Mass/Vol] 107 mg/dL Normal [facility] Comment on above: Result Comment: [facility] Glucose Reference Range is dependent on time and content of last meal. Glucose of more than 200 mg/dL in a nonstressed, ambulatory subject supports the diagnosis of Diabetes Mellitus. PERFORMED BY: [place] [address] PATHOLOGIST FISHER CLARICE OSWALD M.D. Performed By: #### G LULS #### Point of Care testing , Laboratory - CoagulationOrde red By: Juliet Green on 09-28-2022 PT Coag (PPP) [Time] 13.1 s 9.0-12.9 [facility] Magnesiumon 09-28-2022 Magnesium [Mass/Vol] 1.9 mg/dL Normal 1.9-2.7 [facility] Comment on above: Order Comment: Comme nt add Result Comment: PERF ORMED BY: [place] [address] PATHOLOGIST FISHER CLARICE OSWALD M.D. Performed By: #### M G #### [address] Magnesium [Mass/volume] in S enma or PlasmaOrdered By: Juliet Green on 09-28-2022 Magnesium [Mass/Vol] 1.9 mg/dL 1.9-2.7 [facility] Platelet poor plasma interna tional normalized ratio (INR) by coagulation assay (relatOrdered By: Juliet Green on 09-28-2022 INR Coag (PPP) [Relative time] 1.1 {INR} [facility] Comment on above: INR Therapeutic [...] Coag (PPP) [Relative time] 1.1 {INR} Normal [facility] Comment on above: Result Comment: [...] heart valves: 3 - 4.5 PERFORMED BY: [place] [address] PATHOLOGIST FISHER CLARICE OSWALD M.D. Performed By: #### F ER, FE and TIBC #### [facility] [address] [place] [address] PT Coag (PPP) [Time] 13.1 s High 9.0-12.9 [facility] Comment on above: Performed By: #### F ER, FE and TIBC #### [facility] [address] [place] [address] Vitamin B12on 09-28-2022 Cobalamin (Vitamin B12) [Mass/Vol] 202 pg/mL Normal 180-914 [facility] Comment on above: Result Comment: PERF ORMED BY: [place] [address] PATHOLOGIST FISHER CLARICE OSWALD M.D. Performed By: #### B 12 #### [facility] [address] [place] [address] Vitamin B12 ser/plasOrdered By: Mimi Artis on 09-28-2022 Cobalamin (Vitamin B12) [Mass/Vol] 202 pg/mL 180-914 [facility] Vitamin D 25 Hydroxy,Tot+D2+ D3on 09-28-2022 Vitamin D 25 OH (LC) 33 ng/mL Normal . [facility] Comment on above: Result Comment: Refe rence Range: All Ages: Target levels 30 - 100 Performed By: #### F ER, FE and TIBC #### [address] Vitamin D-2 <1.0 Normal . [facility] Comment on above: Result Comment: This test was developed and its performance characteristics determined by [facility]. It has not been cleared or approved by the Food and Drug Administration. Performed By: #### F ER, FE and TIBC #### [address] Vitamin D-3 33 ng/mL Normal . [facility] Comment on above: Result Comment: This test was developed and its performance characteristics determined by [facility]. It has not been cleared or approved by the Food and Drug Administration. Performed at: [facility] [address] [place] [id number] [employer]: Avel Dempsey MD, Phone: [phone] PERFORMED BY: [place] [address] PATHOLOGIST FISHER CLARICE OSWALD M.D. Performed By: #### F ER, FE and TIBC #### [address] XR femur LT 2V*on 09-28-2022 XR femur LT 2V* [facility] [place] [address] XRay Report Signed Patient: Annamaria Garcia MR#: [id number] : 1935 Acct:[id number] Age/Sex: 87 / F ADM Date: 09/28/22 Loc: Room: [address] [place] [address] Type: ADM IN Attending Dr: Juliet Green MD Copies to: MD Juliet Lennon MD Ordering Provider: Bulmaro Moses MD Date of Service: 09/28/22 XR/XR femur LT 2V*: left fem head fx ([id number]) XR/XR low pelvis w/LT x-table hip: left [...] fractures or dislocation are seen within the [id number]. There is mild degenerative change at the knee with medial tibiofemoral joint compartment narrowing and minor tricompartment marginal spurring. There are no focal soft tissue findings. IMPRESSION: NO ACUTE BONY INJURY WITHIN THE VMYLL-SY-AZVM. Impression dictated by: Angie Francisco M.D.09/28/2022 7:21 AM Dictation Location: [place] [address] Transcribed By: [facility] 09/28/22720 Dictated By: Angie Francisco MD 09/28/2216 Signed By: 09/28/22720 [facility] CARDIAC CELESTINO ADMITon 023 CK [Catalytic activity/Vol] 96 U/L Normal 26-192 [facility] Comment on above: Performed By: #### C HELENA CARCAMO #### [facility] [address] [place], [place] [address] Dr. Nidhi Dawn CK.MB [Mass/Vol] 2.59 ng/mL Normal <=3.60 [facility] Comment on above: Performed By: #### C HELENA CARCAMO #### [facility] [address] [place], [place] [address] Dr. Nidhi Dawn HSTROP 8.6 pg/mL Normal 4.0-51.3 [facility] Comment on above: Result Comment: CUT- OFF POINTS HAVE BEEN ESTABLISHED BASED ON THE FOURTH UNIVERSAL DEFINITIONS OF MYOCARDIAL INFARCTION. THE UPPER REFERENCE LIMIT (URL) OF TROPONIN, DEFINED THE 99TH PERCENTILE OF cTnI DISTRIBUTION IN A REFERENCE POPULATION, HAS BEEN CONFIRMED THE DECISION THRESHOLD FOR MN DIAGNOSIS. Performed By: #### C HELENA CARCAMO #### [facility] [address] [place] [address] Dr. Nidhi Dawn BOBBY 75 ng/mL Normal 9-82 [facility] Comment on above: Performed By: #### C HELENA CARCAMO #### [facility] [address] [place] [address] Dr. Nidhi Dawn CBC AUTO DIFFon 09-27-2022 BASO # 0.0 103/ul Normal 0.0-0.1 [facility] Comment on above: Performed By: #### C BC #### [facility] [address] [place] [address] Dr. Nidhi Dawn Basophils/100 WBC (Bld) 0.2 % Normal 0.2-2.0 [facility] Comment on above: Performed By: #### C BC #### [facility] [address] [place] [address] Dr. Nidhi Dawn EO # 0.0 103/ul Normal 0.0-0.7 [facility] Comment on above: Performed By: #### C BC #### [facility] [address] [place] [address] Dr. Nidhi Dawn Eosinophils/100 WBC (Bld) 0.1 % Critically low 0.9-7.0 [facility] Comment on above: Performed By: #### C BC #### [facility] [address] [place] [address] Dr. Nidhi Dawn Erythrocyte distribution width (RBC) [Ratio] 13.2 % Normal 11.0-15.0 [facility] Comment on above: Performed By: #### C BC #### [facility] [address] [place] [address] Dr. Nidhi Dawn Hematocrit (Bld) [Volume fraction] 34.6 % Critically low 36.0-48.0 [facility] Comment on above: Performed By: #### C BC #### [facility] [address] [address] [address] Nidhi Dawn Hemoglobin (Bld) [Mass/Vol] 11.7 g/dL Critically low 12.0-16.0 [facility] Comment on above: Performed By: #### C BC #### [facility] [address] [address] [address] Nidhi Dawn IG # 0.06 10e3/ul Critically high 0.00-0.03 [facility] Comment on above: Performed By: #### C BC #### [facility] [address] [place] [address] Dr. Nidhi Dawn IG % 0.4 % Normal 0.0-0.5 [facility] Comment on above: Performed By: #### C BC #### [facility] [address] [place] [address] Dr. Nidhi Dawn LYMPH # 1.1 103/ul Critically low 1.2-3.8 [facility] Comment on above: Performed By: #### C BC #### [facility] [address] [place] [address] Dr. Nidhi Dawn Lymphocytes/100 WBC (Bld) 7.0 % Critically low 20.5-60.0 [facility] Comment on above: Performed By: #### C BC #### [facility] [address] [place] [address] Dr. Nidhi Dawn MANUAL DIFF REQ NO Normal [facility] Comment on above: Performed By: #### C BC #### [facility] [address] [place] [address] Dr. Nidhi Dawn MCH (RBC) [Entitic mass] 31.0 pg Normal 26.7-34.0 [facility] Comment on above: Performed By: #### C BC #### [facility] [address] [place] [address] Dr. Nidhi Dawn MCHC (RBC) [Mass/Vol] 33.8 g/dL Normal 29.9-35.2 [facility] Comment on above: Performed By: #### C BC #### [facility] [address] [place] [address] Dr. Nidhi Dawn MCV (RBC) [Entitic vol] 91.8 fL Normal 81.0-99.0 [facility] Comment on above: Performed By: #### C BC #### [facility] [address] [place] [address] Dr. Nidhi Dawn MONO # 1.1 103/ul Critically high 0.3-0.8 [facility] Comment on above: Performed By: #### C BC #### [facility] [address] [place] [address] Dr. Nidhi Dawn Monocytes/100 WBC (Bld) 7.0 % Normal 1.7-12.0 [facility] Comment on above: Performed By: #### C BC #### [facility] [address] [place] [address] Dr. Nidhi Dawn NEUT # 13.1 103/ul Critically high 1.4-6.5 [facility] Comment on above: Performed By: #### C BC #### [facility] [address] [place] [address] Dr. Nidhi Dawn Neutrophils/100 WBC (Bld) 85.3 % Critically high 43.0-75.0 [facility] Comment on above: Performed By: #### C BC #### [facility] [address] [place] [address] Dr. Nidhi Dawn Platelet mean volume (Bld) [Entitic vol] 9.1 fL Critically low 9.5-13.5 [facility] Comment on above: Performed By: #### C BC #### [facility] [address] [place] [address] Dr. Nidhi Dawn PLT 274 103/ul Normal 150-450 [facility] Comment on above: Performed By: #### C BC #### [facility] [address] [place] [address] Dr. Nidhi Dawn RBC 3.77 106/ul Critically low 4.20-5.40 [facility] Comment on above: Performed By: #### C BC #### [facility] [address] [place] [address] Dr. Nidhi Dawn WBC 15.4 103/ul Critically high 4.0-11.0 [facility] Comment on above: Performed By: #### C BC #### [facility] [address] [place] [address] Dr. Nidhi Dawn MAGNESIUMon 09-27-2022 Magnesium [Mass/Vol] 1.6 mg/dL Critically low 1.8-2.4 [facility] Comment on above: Performed By: #### C BC #### [facility] [address] [place] [address] Dr. Nidhi Dawn PROF 14(COMP METB)on 023 Albumin [Mass/Vol] 3.6 g/dL Normal 3.4-5.0 [facility] Comment on above: Performed By: #### C LEONCIO CARCAMODM #### [facility] [address] [place] [address] Dr. Nidhi Dawn Albumin/Globulin [Mass ratio] 1.2 {ratio} Normal [facility] Comment on above: Performed By: #### C DONA CMADM #### [facility] [address] [place] [address] Dr. Nidhi Dawn ALP [Catalytic activity/Vol] 60 U/L Normal 46-116 [facility] Comment on above: Performed By: #### C DONA, CMADM #### [facility] [address] [place] [address] Dr. Nidhi Dawn ALT [Catalytic activity/Vol] 18 U/L Normal 14-59 [facility] Comment on above: Performed By: #### C DONA, CMADM #### [facility] [address] [place] [address] Dr. Nidhi Dawn Anion gap [Moles/Vol] 9.3 mmol/L Normal [facility] Comment on above: Performed By: #### C DONA, CMADM #### [facility] [address] [place] [address] Dr. Nidhi Dawn AST [Catalytic activity/Vol] 19 U/L Normal 15-37 [facility] Comment on above: Performed By: #### C DONA, CMADM #### [facility] [address] [address] [address] Nidhi Dawn Bilirubin [Mass/Vol] 0.4 mg/dL Normal 0.2-1.0 [facility] Comment on above: Performed By: #### C DONA, CMADM #### [facility] [address] [place] [address] Dr. Nidhi Dawn Calcium [Mass/Vol] 8.8 mg/dL Normal 8.5-10.1 [facility] Comment on above: Performed By: #### C DONA, CMADM #### [facility] [address] [place] [address] Dr. Nidhi Dawn Chloride [Moles/Vol] 104 mmol/L Normal 98-107 [facility] Comment on above: Performed By: #### C DONA, CMADM #### [facility] [address] [place] [address] Dr. Nidhi Dawn CO2 [Moles/Vol] 30.6 mmol/L Normal 21.0-32.0 [facility] Comment on above: Performed By: #### C DONA, CMADM #### [facility] [address] [place] [address] Dr. Nidhi Dawn Creatinine [Mass/Vol] 0.43 mg/dL Critically low 0.55-1.02 [facility] Comment on above: Performed By: #### C DONA, CMADM #### [facility] [address] [place] [address] Dr. Nidhi Dawn EGFR-AF PERUVIAN >60 Normal >=60 [facility] Comment on above: Performed By: #### C DONA, CMADM #### [facility] [address] [place] [address] Dr. Nidhi Dawn EGFR-NON AF PERUVIAN >60 Normal >=60 [facility] Comment on above: Performed By: #### C DONA, CMADM #### [facility] [address] [place] [address] Dr. Nidhi Dawn Globulin (S) [Mass/Vol] 3.0 g/dL Normal [facility] Comment on above: Performed By: #### C DONA, CMADM #### [facility] [address] [address] [address] Nidhi Dawn Glucose [Mass/Vol] 152 mg/dL Critically high 74-106 [facility] Comment on above: Performed By: #### C MP, CMADM #### [facility] [address] [address] [address] Nidhi Dawn Potassium [Moles/Vol] 2.9 mmol/L Critically low 3.5-5.1 [facility] Comment on above: Performed By: #### C MP, CMADM #### [facility] [address] [address] [address] Nidhi Dawn Protein [Mass/Vol] 6.6 g/dL Normal 6.4-8.2 [facility] Comment on above: Performed By: #### C DONA, CMADM #### [facility] [address] [address] [address] Nidhi Dawn Sodium [Moles/Vol] 140 mmol/L Normal 136-145 [facility] Comment on above: Performed By: #### C DONA, CMADM #### [facility] [address] [address] [address] Nidhi Dawn Urea nitrogen [Mass/Vol] 5.0 mg/dL Critically low 7.0-18.0 [facility] Comment on above: Performed By: #### C DONA, CMADM #### [facility] [address] [place] [address] Dr. Nidhi Dawn Urea nitrogen/Creatinine [Mass ratio] 11.6 mg/mg Normal [facility] Comment on above: Performed By: #### C DONA, CMADM #### [facility] [address] [address] [address] PELVIS WO CONon [...] TAYLOR PENA Date: 2022-05-02 16:39 Normal [facility] T4 LABCORPon 04-05-2022 T4 [Mass/Vol] 6.9 ug/dL Normal 4.5-12.0 [facility] Comment on above: Performed By: #### C BC #### [facility] [address] [address] [address] Nidhi Dawn CBC AUTO DIFFon 04-04-2022 BASO # 0.0 103/ul Normal 0.0-0.1 [facility] Comment on above: Performed By: #### C BC #### [facility] [address] [address] [address] Nidhi Dawn Basophils/100 WBC (Bld) 0.4 % Normal 0.2-2.0 [facility] Comment on above: Performed By: #### C BC #### [facility] [address] [place] [address] Dr. Nidhi Dawn EO # 0.2 103/ul Normal 0.0-0.7 [facility] Comment on above: Performed By: #### C BC #### [facility] [address] [place] [address] Dr. Nidhi Dawn Eosinophils/100 WBC (Bld) 3.1 % Normal 0.9-7.0 [facility] Comment on above: Performed By: #### C BC #### [facility] [address] [place] [address] Dr. Nidhi Dawn Erythrocyte distribution width (RBC) [Ratio] 13.6 % Normal 11.0-15.0 [facility] Comment on above: Performed By: #### C BC #### [facility] [address] [place] [address] Dr. Nidhi Dawn Hematocrit (Bld) [Volume fraction] 30.8 % Critically low 36.0-48.0 [facility] Comment on above: Performed By: #### C BC #### [facility] [address] [place] [address] Dr. Nidhi Dawn Hemoglobin (Bld) [Mass/Vol] 10.3 g/dL Critically low 12.0-16.0 [facility] Comment on above: Performed By: #### C BC #### [facility] [address] [place] [address] Dr. Nidhi Dawn IG # 0.04 10e3/ul Critically high 0.00-0.03 [facility] Comment on above: Performed By: #### C BC #### [facility] [address] [place] [address] Dr. Nidhi Dawn IG % 0.6 % Critically high 0.0-0.5 [facility] Comment on above: Performed By: #### C BC #### [facility] [address] [place] [address] Dr. Nidhi Dawn LYMPH # 1.3 103/ul Normal 1.2-3.8 [facility] Comment on above: Performed By: #### C BC #### [facility] [address] [place] [address] Dr. Nidhi Dawn Lymphocytes/100 WBC (Bld) 18.3 % Critically low 20.5-60.0 [facility] Comment on above: Performed By: #### C BC #### [facility] [address] [place] [address] Dr. Nidhi Dawn MANUAL DIFF REQ NO Normal [facility] Comment on above: Performed By: #### C BC #### [facility] [address] [place] [address] Dr. Nidhi Dawn MCH (RBC) [Entitic mass] 31.0 pg Normal 26.7-34.0 [facility] Comment on above: Performed By: #### C BC #### [facility] [address] [place] [address] Dr. Nidhi Dawn MCHC (RBC) [Mass/Vol] 33.4 g/dL Normal 29.9-35.2 [facility] Comment on above: Performed By: #### C BC #### [facility] [address] [place] [address] Dr. Nidhi Dawn MCV (RBC) [Entitic vol] 92.8 fL Normal 81.0-99.0 [facility] Comment on above: Performed By: #### C BC #### [facility] [address] [place] [address] Dr. Nidhi Dawn MONO # 1.0 103/ul Critically high 0.3-0.8 [facility] Comment on above: Performed By: #### C BC #### [facility] [address] [place] [address] Dr. Nidhi Dawn Monocytes/100 WBC (Bld) 13.7 % Critically high 1.7-12.0 [facility] Comment on above: Performed By: #### C BC #### [facility] [address] [place] [address] Dr. Nidhi Dawn NEUT # 4.5 103/ul Normal 1.4-6.5 [facility] Comment on above: Performed By: #### C BC #### [facility] [address] [place] [address] Dr. Nidhi Dawn Neutrophils/100 WBC (Bld) 63.9 % Normal 43.0-75.0 [facility] Comment on above: Performed By: #### C BC #### [facility] [address] [place] [address] Dr. Nidhi Dawn Platelet mean volume (Bld) [Entitic vol] 9.6 fL Normal 9.5-13.5 [facility] Comment on above: Performed By: #### C BC #### [facility] [address] [place] [address] Dr. Nidhi Dawn PLT 228 103/ul Normal 150-450 [facility] Comment on above: Performed By: #### C BC #### [facility] [address] [place] [address] Dr. Nidhi Dawn RBC 3.32 106/ul Critically low 4.20-5.40 [facility] Comment on above: Performed By: #### C BC #### [facility] [address] [place] [address] Dr. Nidhi Dawn WBC 7.0 103/ul Normal 4.0-11.0 [facility] Comment on above: Performed By: #### C BC #### [facility] [address] [place] [address] Dr. Nidhi Dawn CULTURE URINEon 04-04-2022 CULTURE [...] Trimethoprim/Sulfamethoxaz ole <=20 S F Normal [facility] Comment on above: Performed By: #### C HELENA CARCAMO #### [facility] [facility] [address] [place] [address] Dr. Nidhi Dawn PROF CHEM 8 (BAS METB)on Anion gap [Moles/Vol] 8.8 mmol/L Normal [facility] Comment on above: Performed By: #### C HELENA CARCAMO #### [facility] [address] [place] [address] Dr. Nidhi Dawn Calcium [Mass/Vol] 8.7 mg/dL Normal 8.5-10.1 [facility] Comment on above: Performed By: #### C HELENA CARCAMO #### [facility] [address] [place] [address] Dr. Nidhi Dawn Chloride [Moles/Vol] 101 mmol/L Normal 98-107 [facility] Comment on above: Performed By: #### C HELENA CARCAMO #### [facility] [address] [place] [address] Dr. Nidhi Dawn CO2 [Moles/Vol] 29.6 mmol/L Normal 21.0-32.0 [facility] Comment on above: Performed By: #### C HELENA CARCAMO #### [facility] [address] [place] [address] Dr. Nidhi Dawn Creatinine [Mass/Vol] 0.56 mg/dL Normal 0.55-1.02 [facility] Comment on above: Performed By: #### C HELENA CARCAMO #### [facility] [address] [place] [address] Dr. Nidhi Dawn EGFR-AF PERUVIAN >60 Normal >=60 [facility] Comment on above: Performed By: #### C HELENA CARCAMO #### [facility] [address] [place] [address] Dr. Nidhi Dawn EGFR-NON AF PERUVIAN >60 Normal >=60 [facility] Comment on above: Performed By: #### C HELENA CARCAMO #### [facility] [address] [address] [address] Nidhi Dawn Glucose [Mass/Vol] 106 mg/dL Normal 74-106 [facility] Comment on above: Performed By: #### C HELENA CARCAMO #### [facility] [address] [place] [address] Dr. Nidhi Dawn Potassium [Moles/Vol] 3.4 mmol/L Critically low 3.5-5.1 [facility] Comment on above: Performed By: #### C HELENA CARCAMO #### [facility] [address] [address] [address] Nidhi Dawn Sodium [Moles/Vol] 136 mmol/L Normal 136-145 [facility] Comment on above: Performed By: #### C HELENA CARCAMO #### [facility] [address] [place] [address] Dr. Nidhi Dawn Urea nitrogen [Mass/Vol] 10.0 mg/dL Normal 7.0-18.0 [facility] Comment on above: Performed By: #### C HELENA CARCAMO #### [facility] [address] [place] [address] Dr. Nidhi Dawn Urea nitrogen/Creatinine [Mass ratio] 17.9 mg/mg Normal [facility] Comment on above: Performed By: #### C HELENA CARCAMO #### [facility] [address] [place] [address] Dr. Nidhi Dawn CBC AUTO DIFFon 04-03-2022 BASO # 0.0 103/ul Normal 0.0-0.1 [facility] Comment on above: Performed By: #### C BC #### [facility] [address] [place] [address] Dr. Nidhi Dawn Basophils/100 WBC (Bld) 0.4 % Normal 0.2-2.0 [facility] Comment on above: Performed By: #### C BC #### [facility] [address] [place] [address] Dr. Nidhi Dawn EO # 0.1 103/ul Normal 0.0-0.7 [facility] Comment on above: Performed By: #### C BC #### [facility] [address] [place] [address] Dr. Nidhi Dawn Eosinophils/100 WBC (Bld) 1.0 % Normal 0.9-7.0 [facility] Comment on above: Performed By: #### C BC #### [facility] [address] [place] [address] Dr. Nidhi Dawn Erythrocyte distribution width (RBC) [Ratio] 13.6 % Normal 11.0-15.0 [facility] Comment on above: Performed By: #### C BC #### [facility] [address] [place] [address] Dr. Nidhi Dawn Hematocrit (Bld) [Volume fraction] 28.4 % Critically low 36.0-48.0 [facility] Comment on above: Performed By: #### C BC #### [facility] [address] [place] [address] Dr. Nidhi Dawn Hemoglobin (Bld) [Mass/Vol] 9.2 g/dL Critically low 12.0-16.0 [facility] Comment on above: Performed By: #### C BC #### [facility] [address] [place] [address] Dr. Nidhi Dawn IG # 0.04 10e3/ul Critically high 0.00-0.03 [facility] Comment on above: Performed By: #### C BC #### [facility] [address] [place] [address] Dr. Nidhi Dawn IG % 0.5 % Normal 0.0-0.5 [facility] Comment on above: Performed By: #### C BC #### [facility] [address] [place] [address] Dr. Nidhi Dawn LYMPH # 1.1 103/ul Critically low 1.2-3.8 [facility] Comment on above: Performed By: #### C BC #### [facility] [address] [place] [address] Dr. Nidhi Dawn Lymphocytes/100 WBC (Bld) 13.6 % Critically low 20.5-60.0 [facility] Comment on above: Performed By: #### C BC #### [facility] [address] [place] [address] Dr. Nidhi Dawn MANUAL DIFF REQ NO Normal [facility] Comment on above: Performed By: #### C BC #### [facility] [address] [place] [address] Dr. Nidhi Dawn MCH (RBC) [Entitic mass] 30.0 pg Normal 26.7-34.0 [facility] Comment on above: Performed By: #### C BC #### [facility] [address] [place] [address] Dr. Nidhi Dawn MCHC (RBC) [Mass/Vol] 32.4 g/dL Normal 29.9-35.2 [facility] Comment on above: Performed By: #### C BC #### [facility] [address] [place] [address] Dr. Nidhi Dawn MCV (RBC) [Entitic vol] 92.5 fL Normal 81.0-99.0 [facility] Comment on above: Performed By: #### C BC #### [facility] [address] [place] [address] Dr. Nidhi Dawn MONO # 0.9 103/ul Critically high 0.3-0.8 [facility] Comment on above: Performed By: #### C BC #### [facility] [address] [place] [address] Dr. Nidhi Dawn Monocytes/100 WBC (Bld) 12.1 % Critically high 1.7-12.0 [facility] Comment on above: Performed By: #### C BC #### [facility] [address] [place] [address] Dr. Nidhi Dawn NEUT # 5.7 103/ul Normal 1.4-6.5 [facility] Comment on above: Performed By: #### C BC #### [facility] [address] [place] [address] Dr. Nidhi Dawn Neutrophils/100 WBC (Bld) 72.4 % Normal 43.0-75.0 [facility] Comment on above: Performed By: #### C BC #### [facility] [address] [place] [address] Dr. Nidhi Dawn Platelet mean volume (Bld) [Entitic vol] 10.1 fL Normal 9.5-13.5 [facility] Comment on above: Performed By: #### C BC #### [facility] [address] [place] [address] Dr. Nidhi Dawn PLT 174 103/ul Normal 150-450 [facility] Comment on above: Performed By: #### C BC #### [facility] [address] [place] [address] Dr. Nidhi Dawn RBC 3.07 106/ul Critically low 4.20-5.40 [facility] Comment on above: Performed By: #### C BC #### [facility] [address] [place] [address] Dr. Nidhi Dawn WBC 7.8 103/ul Normal 4.0-11.0 [facility] Comment on above: Performed By: #### C BC #### [facility] [address] [place] [address] Dr. Nidhi Dawn PROF CHEM 8 (BAS METB)on Anion gap [Moles/Vol] 11.2 mmol/L Normal [facility] Comment on above: Performed By: #### B MP #### [facility] [address] [place] [address] Dr. Nidhi Dawn Calcium [Mass/Vol] 8.4 mg/dL Critically low 8.5-10.1 [facility] Comment on above: Performed By: #### B MP #### [facility] [address] [place] [address] Dr. Nidhi Dawn Chloride [Moles/Vol] 100 mmol/L Normal 98-107 [facility] Comment on above: Performed By: #### B MP #### [facility] [address] [address] [address] Nidhi Dawn CO2 [Moles/Vol] 27.4 mmol/L Normal 21.0-32.0 [facility] Comment on above: Performed By: #### B MP #### [facility] [address] [address] [address] Nidhi Dawn Creatinine [Mass/Vol] 0.56 mg/dL Normal 0.55-1.02 [facility] Comment on above: Performed By: #### B MP #### [facility] [address] [place] [address] Dr. Nidhi Dawn EGFR-AF PERUVIAN >60 Normal >=60 [facility] Comment on above: Performed By: #### B MP #### [facility] [address] [place] [address] Dr. Nidhi Dawn EGFR-NON AF PERUVIAN >60 Normal >=60 [facility] Comment on above: Performed By: #### B MP #### [facility] [address] [address] [address] Nidhi Dawn Glucose [Mass/Vol] 113 mg/dL Critically high 74-106 [facility] Comment on above: Performed By: #### B MP #### [facility] [address] [place] [address] Dr. Nidhi Dawn Potassium [Moles/Vol] 3.6 mmol/L Normal 3.5-5.1 [facility] Comment on above: Performed By: #### B MP #### [facility] [address] [address] [address] Nidhi Dawn Sodium [Moles/Vol] 135 mmol/L Critically low 136-145 [facility] Comment on above: Performed By: #### B MP #### [facility] [address] [address] [address] Nidhi Dawn Urea nitrogen [Mass/Vol] 14.0 mg/dL Normal 7.0-18.0 [facility] Comment on above: Performed By: #### B MP #### [facility] [address] [address] [address] Nidhi Dawn Urea nitrogen/Creatinine [Mass ratio] 25.0 mg/mg Normal [facility] Comment on above: Performed By: #### B MP #### [facility] [address] [address] [address] Nidhi Dawn CBC AUTO DIFFon 04-02-2022 BASO # 0.0 103/ul Normal 0.0-0.1 [facility] Comment on above: Performed By: #### C BC #### [facility] [address] [place] [address] Dr. Nidhi Dawn Basophils/100 WBC (Bld) 0.3 % Normal 0.2-2.0 [facility] Comment on above: Performed By: #### C BC #### [facility] [address] [place] [address] Dr. Nidhi Dawn EO # 0.1 103/ul Normal 0.0-0.7 [facility] Comment on above: Performed By: #### C BC #### [facility] [address] [place] [address] Dr. Nidhi Dawn Eosinophils/100 WBC (Bld) 0.8 % Critically low 0.9-7.0 [facility] Comment on above: Performed By: #### C BC #### [facility] [address] [place] [address] Dr. Nidhi Dawn Erythrocyte distribution width (RBC) [Ratio] 13.8 % Normal 11.0-15.0 [facility] Comment on above: Performed By: #### C BC #### [facility] [address] [place] [address] Dr. Nidhi Dawn Hematocrit (Bld) [Volume fraction] 30.1 % Critically low 36.0-48.0 [facility] Comment on above: Performed By: #### C BC #### [facility] [address] [place] [address] Dr. Nidhi Dawn Hemoglobin (Bld) [Mass/Vol] 10.1 g/dL Critically low 12.0-16.0 [facility] Comment on above: Performed By: #### C BC #### [facility] [address] [place] [address] Dr. Nidhi Dawn IG # 0.03 10e3/ul Normal 0.00-0.03 [facility] Comment on above: Performed By: #### C BC #### [facility] [address] [place] [address] Dr. Nidhi Dawn IG % 0.3 % Normal 0.0-0.5 [facility] Comment on above: Performed By: #### C BC #### [facility] [address] [place] [address] Dr. Nihdi Dawn LYMPH # 1.0 103/ul Critically low 1.2-3.8 [facility] Comment on above: Performed By: #### C BC #### [facility] [address] [place] [address] Dr. Nidhi Dawn Lymphocytes/100 WBC (Bld) 10.6 % Critically low 20.5-60.0 [facility] Comment on above: Performed By: #### C BC #### [facility] [address] [place] [address] Dr. Nidhi Dawn MANUAL DIFF REQ NO Normal [facility] Comment on above: Performed By: #### C BC #### [facility] [address] [place] [address] Dr. Nidhi Dawn MCH (RBC) [Entitic mass] 30.7 pg Normal 26.7-34.0 [facility] Comment on above: Performed By: #### C BC #### [facility] [address] [place] [address] Dr. Nidhi Dawn MCHC (RBC) [Mass/Vol] 33.6 g/dL Normal 29.9-35.2 [facility] Comment on above: Performed By: #### C BC #### [facility] [address] [place] [address] Dr. Nidhi Dawn MCV (RBC) [Entitic vol] 91.5 fL Normal 81.0-99.0 [facility] Comment on above: Performed By: #### C BC #### [facility] [address] [place] [address] Dr. Nidhi Dawn MONO # 1.0 103/ul Critically high 0.3-0.8 [facility] Comment on above: Performed By: #### C BC #### [facility] [address] [place] [address] Dr. Nidhi Dawn Monocytes/100 WBC (Bld) 10.3 % Normal 1.7-12.0 [facility] Comment on above: Performed By: #### C BC #### [facility] [address] [place] [address] Dr. Nidhi Dawn NEUT # 7.4 103/ul Critically high 1.4-6.5 [facility] Comment on above: Performed By: #### C BC #### [facility] [address] [place] [address] Dr. Nidhi Dawn Neutrophils/100 WBC (Bld) 77.7 % Critically high 43.0-75.0 [facility] Comment on above: Performed By: #### C BC #### [facility] [address] [place] [address] Dr. Nidhi Dawn Platelet mean volume (Bld) [Entitic vol] 10.0 fL Normal 9.5-13.5 [facility] Comment on above: Performed By: #### C BC #### [facility] [address] [place] [address] Dr. Nidhi Dawn PLT 175 103/ul Normal 150-450 [facility] Comment on above: Performed By: #### C BC #### [facility] [address] [place] [address] Dr. Nidhi Dawn RBC 3.29 106/ul Critically low 4.20-5.40 [facility] Comment on above: Performed By: #### C BC #### [facility] [address] [place] [address] Dr. Nidhi Dawn WBC 9.5 103/ul Normal 4.0-11.0 [facility] Comment on above: Performed By: #### C BC #### [facility] [address] [address] [address] Nidhi HARDIN URINE PROFILEon 2 Bilirubin Ql (U) Negative Normal NEGATIVE [facility] Comment on above: Performed By: #### C MP, CMADM #### [facility] [address] [place] [address] Dr. Nidhi Dawn Clarity (U) CLEAR Normal CLEAR [facility] Comment on above: Performed By: #### C MP, CMADM #### [facility] [address] [address] [address] Nidhi Dawn Color (U) YELLOW Normal YELLOW [facility] Comment on above: Performed By: #### C MP, CMADM #### [facility] [address] [place] [address] Dr. Nidhi TERRAZAS A micrscopic examina tion will be performed if indicated. Normal [facility] Comment on above: Performed By: #### C MP, CMADM #### [facility] [address] [place] [address] Dr. Nidhi Dawn Glucose Ql (U) Negative Normal NEGATIVE [facility] Comment on above: Performed By: #### C DONA, CMADM #### [facility] [address] [place] [address] Dr. Nidhi Dawn Hemoglobin Ql (U) MODERATE Abnormal NEGATIVE [facility] Comment on above: Performed By: #### C MP, CMADM #### [facility] [address] [address] [address] Nidhi Dawn Ketones Ql (U) TRACE Abnormal NEGATIVE [facility] Comment on above: Performed By: #### C MP, CMADM #### [facility] [address] [address] [address] Nidhi Dawn LEUKOCYTES MODERATE Abnormal NEGATIVE [facility] Comment on above: Performed By: #### C MP, CMADM #### [facility] [address] [place] [address] Dr. Nidhi Dawn Nitrite Ql (U) Positive Abnormal NEGATIVE [facility] Comment on above: Performed By: #### C MP, CMADM #### [facility] [address] [place] [address] Dr. Nidhi Dawn pH (U) [pH] Abnormal 5-9 [facility] Comment on above: Performed By: #### C DONA, LEONCIODM #### [facility] [address] [place] [address] Dr. Nidhi Dawn Protein (U) [Mass/Vol] 100 mg/dL Abnormal NEGAT GRIFFIN/ TRACE [facility] Comment on above: Performed By: #### C DONA, LEONCIODM #### [facility] [address] [place] [address] Dr. Nidhi Dawn SPEC GRAVITY <=1.005 Abnormal 1.005-<=1.0 25 [facility] Comment on above: Performed By: #### C HELENA CARCAMO #### [facility] [address] [place] [address] Dr. Nidhi Dawn UR MICRO IND INDICATED Normal [facility] Comment on above: Performed By: #### C DONA, HELENA #### [facility] [address] [place] [address] Dr. Nidhi Dawn Urobilinogen Qn (U) 1.0 {Lawrence'U}/dL Normal 0.2 - 1. 0 [facility] Comment on above: Performed By: #### C HELENA CARCAMO #### [facility] [address] [place] [address] Dr. Nidhi Dawn FREE T3on 04-02-2022 FREE T3 1.84 pg/mlL Critically low 2.18-3.98 [facility] Comment on above: Performed By: #### C BC #### [facility] [address] [place] [address] Dr. Nidhi Dawn PROF CHEM 8 (BAS METB)on Anion gap [Moles/Vol] 10.9 mmol/L Normal [facility] Comment on above: Performed By: #### C BC #### [facility] [address] [place] [address] Dr. Nidhi Dawn Calcium [Mass/Vol] 8.6 mg/dL Normal 8.5-10.1 [facility] Comment on above: Performed By: #### C BC #### [facility] [address] [address] [address] Nidhi Dawn Chloride [Moles/Vol] 102 mmol/L Normal 98-107 [facility] Comment on above: Performed By: #### C BC #### [facility] [address] [address] [address] Nidhi Dawn CO2 [Moles/Vol] 24.9 mmol/L Normal 21.0-32.0 [facility] Comment on above: Performed By: #### C BC #### [facility] [address] [address] [address] Nidhi Dawn Creatinine [Mass/Vol] 0.42 mg/dL Critically low 0.55-1.02 [facility] Comment on above: Performed By: #### C BC #### [facility] [address] [place] [address] Dr. Nidhi Dawn EGFR-AF PERUVIAN >60 Normal >=60 [facility] Comment on above: Performed By: #### C BC #### [facility] [address] [place] [address] Dr. Nidhi Dawn EGFR-NON AF PERUVIAN >60 Normal >=60 [facility] Comment on above: Performed By: #### C BC #### [facility] [address] [place] [address] Dr. Nidhi Dawn Glucose [Mass/Vol] 103 mg/dL Normal 74-106 [facility] Comment on above: Performed By: #### C BC #### [facility] [address] [place] [address] Dr. Nidhi Dawn Potassium [Moles/Vol] 3.8 mmol/L Normal 3.5-5.1 [facility] Comment on above: Performed By: #### C BC #### [facility] [address] [place] [address] Dr. Nidhi Dawn Sodium [Moles/Vol] 134 mmol/L Critically low 136-145 Th [facility] Comment on above: Performed By: #### C BC #### [facility] [address] [place] [address] Dr. Nidhi Dawn Urea nitrogen [Mass/Vol] 14.0 mg/dL Normal 7.0-18.0 [facility] Comment on above: Performed By: #### C BC #### [facility] [address] [place] [address] Dr. Nidhi Dawn Urea nitrogen/Creatinine [Mass ratio] 33.3 mg/mg Normal [facility] Comment on above: Performed By: #### C BC #### [facility] [address] [place] [address] Dr. Nidhi Dawn URINE MICROSCOPIC ONLYon BACTERIA MODERATE Abnormal NONE SEEN [facility] Comment on above: Performed By: #### C MP, CMADM #### [facility] [address] [place] [address] Dr. Nidhi Dawn Bacteria identified Cx Nom (U) INDICATED Normal [facility] Comment on above: Performed By: #### C MP, CMADM #### [facility] [address] [place] [address] Dr. Nidhi Dawn CAST NONE SEEN Normal NONE SEEN [facility] Comment on above: Performed By: #### C MP, CMADM #### [facility] [address] [place] [address] Dr. Nidhi Dawn Crystals LM Nom (Urine sed) NONE SEEN Normal NONE SEEN [facility] Comment on above: Performed By: #### C MP, CMADM #### [facility] [address] [place] [address] Dr. Nidhi Dawn Epithelial cells LM Ql (Urine sed) RARE Normal NONE SEEN /RARE [facility] Comment on above: Performed By: #### C MP, CMADM #### [facility] [address] [place] [address] Dr. Nidhi Dawn MUCOUS TRACE Abnormal NONE SEEN [facility] Comment on above: Performed By: #### C MP, CMADM #### [facility] [address] [place] [address] Dr. Nidhi Dawn RBC 5-10 Abnormal 0-2 [facility] Comment on above: Performed By: #### C MP, CMADM #### [facility] [address] [address] [address] Nidhi Dawn WBC 10-20 Abnormal NONE SEEN [facility] Comment on above: Performed By: #### C MP, CMADM #### [facility] [address] [place] [address] Dr. Nidhi Dawn CBC AUTO DIFFon 04-01-2022 BASO # 0.0 103/ul Normal 0.0-0.1 [facility] Comment on above: Performed By: #### C BC #### [facility] [address] [place] [address] Dr. Nidhi Dawn Basophils/100 WBC (Bld) 0.1 % Critically low 0.2-2.0 [facility] Comment on above: Performed By: #### C BC #### [facility] [address] [place] [address] Dr. Nidhi Dawn EO # 0.0 103/ul Normal 0.0-0.7 [facility] Comment on above: Performed By: #### C BC #### [facility] [address] [place] [address] Dr. Nidhi Dawn Eosinophils/100 WBC (Bld) 0.1 % Critically low 0.9-7.0 [facility] Comment on above: Performed By: #### C BC #### [facility] [address] [place] [address] Dr. Nidhi Dawn Erythrocyte distribution width (RBC) [Ratio] 13.9 % Normal 11.0-15.0 [facility] Comment on above: Performed By: #### C BC #### [facility] Laboratory [address] [place] [address] Dr. Nidhi Dawn Hematocrit (Bld) [Volume fraction] 31.4 % Critically low 36.0-48.0 [facility] Comment on above: Performed By: #### C BC #### [facility] [address] [place] [address] Dr. Nidhi Dawn Hemoglobin (Bld) [Mass/Vol] 10.3 g/dL Critically low 12.0-16.0 [facility] Comment on above: Performed By: #### C BC #### [facility] [address] [place] [address] Dr. Nidhi Dawn IG # 0.03 10e3/ul Normal 0.00-0.03 [facility] Comment on above: Performed By: #### C BC #### [facility] [address] [place] [address] Dr. Nidhi Dawn IG % 0.3 % Normal 0.0-0.5 [facility] Comment on above: Performed By: #### C BC #### [facility] [address] [place] [address] Dr. Nidhi Dawn LYMPH # 1.3 103/ul Normal 1.2-3.8 [facility] Comment on above: Performed By: #### C BC #### [facility] [address] [place] [address] Dr. Nidhi Dawn Lymphocytes/100 WBC (Bld) 13.5 % Critically low 20.5-60.0 [facility] Comment on above: Performed By: #### C BC #### [facility] [address] [place] [address] Dr. Nidhi Dawn MANUAL DIFF REQ NO Normal [facility] Comment on above: Performed By: #### C BC #### [facility] [address] [place] [address] Dr. Nidhi Dawn MCH (RBC) [Entitic mass] 30.3 pg Normal 26.7-34.0 [facility] Comment on above: Performed By: #### C BC #### [facility] [address] [place] [address] Dr. Nidhi Dawn MCHC (RBC) [Mass/Vol] 32.8 g/dL Normal 29.9-35.2 [facility] Comment on above: Performed By: #### C BC #### [facility] [address] [place] [address] Dr. Nidhi Dawn MCV (RBC) [Entitic vol] 92.4 fL Normal 81.0-99.0 [facility] Comment on above: Performed By: #### C BC #### [facility] [address] [address] [address] Nidhi Dawn MONO # 1.1 103/ul Critically high 0.3-0.8 [facility] Comment on above: Performed By: #### C BC #### [facility] [address] [place] [address] Dr. Nidhi Dawn Monocytes/100 WBC (Bld) 11.1 % Normal 1.7-12.0 [facility] Comment on above: Performed By: #### C BC #### [facility] [address] [place] [address] Dr. Nidhi Dawn NEUT # 7.4 103/ul Critically high 1.4-6.5 [facility] Comment on above: Performed By: #### C BC #### [facility] [address] [place] [address] Dr. Nidhi Dawn Neutrophils/100 WBC (Bld) 74.9 % Normal 43.0-75.0 [facility] Comment on above: Performed By: #### C BC #### [facility] [address] [place] [address] Dr. Nidhi Dawn Platelet mean volume (Bld) [Entitic vol] 9.9 fL Normal 9.5-13.5 [facility] Comment on above: Performed By: #### C BC #### [facility] [address] [place] [address] Dr. Nidhi Dawn PLT 219 103/ul Normal 150-450 [facility] Comment on above: Performed By: #### C BC #### [facility] [address] [place] [address] Dr. Nidhi Dawn RBC 3.40 106/ul Critically low 4.20-5.40 [facility] Comment on above: Performed By: #### C BC #### [facility] [address] [place] [address] Dr. Nidhi Dawn WBC 9.9 103/ul Normal 4.0-11.0 [facility] Comment on above: Performed By: #### C BC #### [facility] [address] [place] [address] Dr. Nidhi Dawn PROF CHEM 8 (BAS METB)on Anion gap [Moles/Vol] 9.7 mmol/L Normal [facility] Comment on above: Performed By: #### B MP #### [facility] [address] [address] [address] Nidhi Dawn Calcium [Mass/Vol] 8.5 mg/dL Normal 8.5-10.1 [facility] Comment on above: Performed By: #### B MP #### [facility] [address] [address] [address] Nidhi Dawn Chloride [Moles/Vol] 102 mmol/L Normal 98-107 [facility] Comment on above: Performed By: #### B MP #### [facility] [address] [address] [address] Nidhi Dawn CO2 [Moles/Vol] 28.8 mmol/L Normal 21.0-32.0 [facility] Comment on above: Performed By: #### B MP #### [facility] [address] [address] [address] Nidhi Dawn Creatinine [Mass/Vol] 0.54 mg/dL Critically low 0.55-1.02 [facility] Comment on above: Performed By: #### B MP #### [facility] [address] [place] [address] Dr. Nidhi Dawn EGFR-AF PERUVIAN >60 Normal >=60 [facility] Comment on above: Performed By: #### B MP #### [facility] [address] [address] [address] Nidhi Dawn EGFR-NON AF PERUVIAN >60 Normal >=60 [facility] Comment on above: Performed By: #### B MP #### [facility] [address] [address] [address] Nidhi Dawn Glucose [Mass/Vol] 108 mg/dL Critically high 74-106 [facility] Comment on above: Performed By: #### B MP #### [facility] [address] [place] [address] Dr. Nidhi Dawn Potassium [Moles/Vol] 3.5 mmol/L Normal 3.5-5.1 [facility] Comment on above: Performed By: #### B MP #### [facility] [address] [address] [address] Nidhi Dawn Sodium [Moles/Vol] 137 mmol/L Normal 136-145 [facility] Comment on above: Performed By: #### B MP #### [facility] [address] [address] [address] Nidhi Dawn Urea nitrogen [Mass/Vol] 14.0 mg/dL Normal 7.0-18.0 [facility] Comment on above: Performed By: #### B MP #### [facility] [address] [address] [address] Nidhi Dawn Urea nitrogen/Creatinine [Mass ratio] 25.9 mg/mg Normal [facility] Comment on above: Performed By: #### B MP #### [facility] [address] [place] [address] Dr. Nidhi Dawn CARDIAC CELESTINO ADMITon 022 CK [Catalytic activity/Vol] 60 U/L Normal 26-192 [facility] Comment on above: Performed By: #### C BC #### [facility] [address] [place] [address] Dr. Nidhi Dawn CK.MB [Mass/Vol] 2.29 ng/mL Normal <=3.60 [facility] Comment on above: Performed By: #### C BC #### [facility] [address] [place] [address] Dr. Nidhi Dawn HSTROP 5.8 pg/mL Normal 4.0-51.3 [facility] Comment on above: Result Comment: CUT- OFF POINTS HAVE BEEN ESTABLISHED BASED ON THE FOURTH UNIVERSAL DEFINITIONS OF MYOCARDIAL INFARCTION. THE UPPER REFERENCE LIMIT (URL) OF TROPONIN, DEFINED THE 99TH PERCENTILE OF cTnI DISTRIBUTION IN A REFERENCE POPULATION, HAS BEEN CONFIRMED THE DECISION THRESHOLD FOR [place] DIAGNOSIS. Performed By: #### C BC #### [facility] [address] [place] [address] Dr. Nidhi Dawn BOBBY 63 ng/mL Normal 9-82 [facility] Comment on above: Performed By: #### C BC #### [facility] [address] [place] [address] Dr. Nidhi Dawn CBC AUTO DIFFon 03-31-2022 BASO # 0.0 103/ul Normal 0.0-0.1 [facility] Comment on above: Performed By: #### C BC #### [facility] [address] [place] [address] Dr. Nidhi Dawn Basophils/100 WBC (Bld) 0.3 % Normal 0.2-2.0 [facility] Comment on above: Performed By: #### C BC #### [facility] [address] [place] [address] Dr. Nidhi Dawn EO # 0.0 103/ul Normal 0.0-0.7 [facility] Comment on above: Performed By: #### C BC #### [facility] [address] [place] [address] Dr. Nidhi Dawn Eosinophils/100 WBC (Bld) 0.3 % Critically low 0.9-7.0 [facility] Comment on above: Performed By: #### C BC #### [facility] [address] [place] [address] Dr. Nidhi Dawn Erythrocyte distribution width (RBC) [Ratio] 13.8 % Normal 11.0-15.0 [facility] Comment on above: Performed By: #### C BC #### [facility] [address] [place] [address] Dr. Nidhi Dawn Hematocrit (Bld) [Volume fraction] 39.3 % Normal 36.0-48.0 [facility] Comment on above: Performed By: #### C BC #### [facility] [address] [place] [address] Dr. Nidhi Dawn Hemoglobin (Bld) [Mass/Vol] 12.8 g/dL Normal 12.0-16.0 [facility] Comment on above: Performed By: #### C BC #### [facility] [address] [place] [address] Dr. Nidhi Dawn IG # 0.10 10e3/ul Critically high 0.00-0.03 [facility] Comment on above: Performed By: #### C BC #### [facility] [address] [place] [address] Dr. Nidhi Dawn IG % 0.8 % Critically high 0.0-0.5 [facility] Comment on above: Performed By: #### C BC #### [facility] [address] [place] [address] Dr. Nidhi Dawn LYMPH # 1.1 103/ul Critically low 1.2-3.8 [facility] Comment on above: Performed By: #### C BC #### [facility] [address] [place] [address] Dr. Nidhi Dawn Lymphocytes/100 WBC (Bld) 9.3 % Critically low 20.5-60.0 [facility] Comment on above: Performed By: #### C BC #### [facility] [address] [place] [address] Dr. Nidhi Dawn MANUAL DIFF REQ NO Normal [facility] Comment on above: Performed By: #### C BC #### [facility] [address] [place] [address] Dr. Nidhi Dwan MCH (RBC) [Entitic mass] 30.0 pg Normal 26.7-34.0 [facility] Comment on above: Performed By: #### C BC #### [facility] [address] [place] [address] Dr. Nidhi Dawn MCHC (RBC) [Mass/Vol] 32.6 g/dL Normal 29.9-35.2 [facility] Comment on above: Performed By: #### C BC #### [facility] [address] [place] [address] Dr. Nidhi Dawn MCV (RBC) [Entitic vol] 92.3 fL Normal 81.0-99.0 [facility] Comment on above: Performed By: #### C BC #### [facility] [address] [place] [address] Dr. Nidhi Dawn MONO # 0.8 103/ul Normal 0.3-0.8 [facility] Comment on above: Performed By: #### C BC #### [facility] [address] [place] [address] Dr. Nidhi Dawn Monocytes/100 WBC (Bld) 6.6 % Normal 1.7-12.0 [facility] Comment on above: Performed By: #### C BC #### [facility] [address] [place] [address] Dr. Nidhi Dawn NEUT # 9.8 103/ul Critically high 1.4-6.5 [facility] Comment on above: Performed By: #### C BC #### [facility] [address] [place] [address] Dr. Nidhi Dawn Neutrophils/100 WBC (Bld) 82.7 % Critically high 43.0-75.0 [facility] Comment on above: Performed By: #### C BC #### [facility] [address] [place] [address] Dr. Nidhi Dawn Platelet mean volume (Bld) [Entitic vol] 9.3 fL Critically low 9.5-13.5 [facility] Comment on above: Performed By: #### C BC #### [facility] [address] [place] [address] Dr. Nidhi Dawn PLT 284 103/ul Normal 150-450 [facility] Comment on above: Performed By: #### C BC #### [facility] [address] [place] [address] Dr. Nidhi Dawn RBC 4.26 106/ul Normal 4.20-5.40 [facility] Comment on above: Performed By: #### C BC #### [facility] [address] [place] [address] Dr. Nidhi Dawn WBC 11.8 103/ul Critically high 4.0-11.0 [facility] Comment on above: Performed By: #### C BC #### [facility] [address] [place] [address] CHEST W CONon [...] TAYLOR PENA Date: 2022-03-31 14:36 Normal [facility] CT CSPINE WO CONon CT CSPINE [...] TAYLOR PENA Date: 2022-03-31 14:48 Normal [facility] CT HEAD WO CONon 03-31-2022 CT [...] TAYLOR PENA Date: 2022-03-31 14:11 Normal [facility] CT LSPINE WO CONon 2 CT [...] TAYLOR PENA Date: 2022-03-31 14:27 Normal [facility] Cov[facility]-19 [facility]on SARS-CoV-2 (COVID-19) RNA COLLINS+probe Ql (Unsp spec) Not detected Normal NOT DETECTED [facility] Comment on above: Result Comment: When [...] for this test is supported by the [place] of Health and Human Service's declaration that [...] longer be used). Performed By: #### C [facility] #### [facility] [address] [place] [address] Dr. Nidhi Dawn PROF 14(COMP METB)on 022 Albumin [Mass/Vol] 3.7 g/dL Normal 3.4-5.0 [facility] Comment on above: Performed By: #### C BC #### [facility] [address] [place] [address] Dr. Nidhi Dawn Albumin/Globulin [Mass ratio] 1.2 {ratio} Normal [facility] Comment on above: Performed By: #### C BC #### [facility] [address] [place] [address] Dr. Nidhi Dawn ALP [Catalytic activity/Vol] 55 U/L Normal 46-116 [facility] Comment on above: Performed By: #### C BC #### [facility] [address] [place] [address] Dr. Nidhi Dawn ALT [Catalytic activity/Vol] 24 U/L Normal 14-59 [facility] Comment on above: Performed By: #### C BC #### [facility] [address] [place] [address] Dr. Nidhi Dawn Anion gap [Moles/Vol] 9.2 mmol/L Normal [facility] Comment on above: Performed By: #### C BC #### [facility] [address] [place] [address] Dr. Nidhi Dawn AST [Catalytic activity/Vol] 19 U/L Normal 15-37 [facility] Comment on above: Performed By: #### C BC #### [facility] [address] [place] [address] Dr. Nidhi Dawn Bilirubin [Mass/Vol] 0.5 mg/dL Normal 0.2-1.0 [facility] Comment on above: Performed By: #### C BC #### [facility] [address] [address] [address] Nidhi Dawn Calcium [Mass/Vol] 9.1 mg/dL Normal 8.5-10.1 [facility] Comment on above: Performed By: #### C BC #### [facility] [address] [address] [address] Nidhi Dawn Chloride [Moles/Vol] 103 mmol/L Normal 98-107 [facility] Comment on above: Performed By: #### C BC #### [facility] [address] [place] [address] Dr. Nidhi Dawn CO2 [Moles/Vol] 28.0 mmol/L Normal 21.0-32.0 [facility] Comment on above: Performed By: #### C BC #### [facility] [address] [place] [address] Dr. Nidhi Dawn Creatinine [Mass/Vol] 0.56 mg/dL Normal 0.55-1.02 [facility] Comment on above: Performed By: #### C BC #### [facility] [address] [place] [address] Dr. Nidhi Dawn EGFR-AF PERUVIAN >60 Normal >=60 [facility] Comment on above: Performed By: #### C BC #### [facility] [address] [place] [address] Dr. Nidhi Dawn EGFR-NON AF PERUVIAN >60 Normal >=60 [facility] Comment on above: Performed By: #### C BC #### [facility] [address] [place] [address] Dr. Nidhi Dawn Globulin (S) [Mass/Vol] 3.2 g/dL Normal [facility] Comment on above: Performed By: #### C BC #### [facility] [address] [place] [address] Dr. Nidhi Dawn Glucose [Mass/Vol] 140 mg/dL Critically high 74-106 [facility] Comment on above: Performed By: #### C BC #### [facility] [address] [address] [address] Nidhi Dawn Potassium [Moles/Vol] 3.2 mmol/L Critically low 3.5-5.1 [facility] Comment on above: Performed By: #### C BC #### [facility] [address] [place] [address] Dr. Nidhi Dawn Protein [Mass/Vol] 6.9 g/dL Normal 6.4-8.2 [facility] Comment on above: Performed By: #### C BC #### [facility] [address] [place] [address] Dr. Nidhi Dawn Sodium [Moles/Vol] 137 mmol/L Normal 136-145 [facility] Comment on above: Performed By: #### C BC #### [facility] [address] [place] [address] Dr. Nidhi Dawn Urea nitrogen [Mass/Vol] 13.0 mg/dL Normal 7.0-18.0 [facility] Comment on above: Performed By: #### C BC #### [facility] [address] [place] [address] Dr. Nidhi Dawn Urea nitrogen/Creatinine [Mass ratio] 23.2 mg/mg Normal [facility] Comment on above: Performed By: #### C BC #### [facility] [address] [place] [address] Dr. Nidhi Dawn PROTIMEon 03-31-2022 INR Coag (PPP) [Relative time] 1.01 {INR} Normal [facility] Comment on above: Performed By: #### C BC #### [facility] [address] [place] [address] Dr. Nidhi Dawn INR GUIDELINES SEE BELOW Normal [facility] Comment on above: Result Comment: BASSEM RED INR: 2.0 - 3.0 CONDITIONS NOT LISTED BELOW 2.5 - 3.5 FOR PROSTHETIC HEART VALVE REPLACEMENT 2.5 - 3.5 RECURRENT THROMBOSIS Performed By: #### C BC #### [facility] [address] [place] [address] Dr. Nidhi Dawn PT Coag (PPP) [Time] 10.9 s Normal 9.0-11.6 [facility] Comment on above: Performed By: #### C BC #### [facility] [address] [address] [address] Nidhi Dawn PTTon 03-31-2022 aPTT Coag (Bld) [Time] 25.7 s Normal 22.3-36.2 [facility] Comment on above: Performed By: #### C BC #### [facility] [address] [address] [address] Nidhi Dawn TSHon 03-31-2022 TSH 3.763 uIU/mL Critically high 0.358-3.740 [facility] Comment on above: Performed By: #### C BC #### [facility] [address] [address] [address] Nidhi Dawn XR HIP RT 2 [...] AVEL BUENO Date: 2022-03-31 14:33 Normal [facility] XR HIP RT 2 3V W [...] 10-25-2023 11:40-0400 Body height 149.9 cm Ashley Olvera APRNAfricasana Work Phone: [facility] 10-25-2023 11:40-0400 Body mass index (BMI) [Ratio] 19.09 kg/m2 Ashley Olveraseth PAULSONAfricasana Work Phone: [facility] 10-25-2023 11:40-0400 Body temperature 97.39 [degF] Ashley Olvera APRNSwift EndeavorPANTRY COOK Work Phone: [facility] 10-25-2023 11:40-0400 Body weight 42.87 kg Ashley Olvera APRN-PANTRY COOK Work Phone: [facility] 10-25-2023 11:40-0400 Diastolic blood pressure 62 mm[Hg] Ashley Olvera APRN-PANTRY COOK Work Phone: [facility] 10-25-2023 11:40-0400 Heart rate 57 /min Ashley Olvera APRN-PANTRY COOK Work Phone: [facility] 10-25-2023 11:40-0400 Respiratory rate 18 /min Ashley Olvera APRN-PANTRY COOK Work Phone: [facility] 10-25-2023 11:40-0400 SaO2% (BldA) [Mass fraction] 99 % Ashley Olvera APRN-PANTRY COOK Work Phone: [facility] 10-25-2023 11:40-0400 Systolic blood pressure 120 mm[Hg] Ashley Olvera APRN-PANTRY COOK Work Phone: [facility] 10-09-2023 11:45-0400 Body height 149.9 cm Ashley Olvera APRN-PANTRY COOK Work Phone: [facility] 10-09-2023 11:45-0400 Body mass index (BMI) [Ratio] 18.46 kg/m2 Ashley Olvera APRN-PANTRY COOK Work Phone: [facility] 10-09-2023 11:45-0400 Body temperature 97.3 [degF] Ashley Olvera APRN-PANTRY COOK Work Phone: [facility] 10-09-2023 11:45-0400 Body weight 41.46 kg Ashley Olvera APRN-PANTRY COOK Work Phone: [facility] 10-09-2023 11:45-0400 Diastolic blood pressure 60 mm[Hg] Ashley Olvera APRN-PANTRY COOK Work Phone: [facility] 10-09-2023 11:45-0400 Heart rate 70 /min Ashleyselina Olvera APRN-SARAH Work Phone: [facility] 10-09-2023 11:45-0400 Respiratory rate 22 /min Ashley ALMONTE Work Phone: [facility] 10-09-2023 11:45-0400 SaO2% (BldA) [Mass fraction] 100 % Ashley ALMONTE Work Phone: [facility] 10-09-2023 11:45-0400 Systolic blood pressure 128 mm[Hg] Ashley Olvera APRN-SARAH Work Phone: [facility] 09-27-2023 15:42-0500 Body height 149.9 cm Ashley ALMONTE Work Phone: [facility] 09-27-2023 15:42-0500 Body mass index (BMI) [Ratio] 19.79 kg/m2 Ashley ALMONTE Work Phone: [facility] 09-27-2023 15:42-0500 Body temperature 98.01 [degF] Ashley Olvera APRN-SARAH Work Phone: [facility] 09-27-2023 15:42-0500 Body weight 44.45 kg Ashley ALMONTE Work Phone: [facility] 09-27-2023 15:42-0500 Diastolic blood pressure 80 mm[Hg] Ashley Olvera APRN-SARAH Work Phone: [facility] 09-27-2023 15:42-0500 Heart rate 59 /min Ashley Olvera APRN-SARAH Work Phone: [facility] 09-27-2023 15:42-0500 Respiratory rate 18 /min Ashley Olvera APRN-SARAH Work Phone: [facility] 09-27-2023 15:42-0500 SaO2% (BldA) [Mass fraction] 93 % Ashley Olvera TRIMMER MEAT-PANTRY COOK Work Phone: [facility] 09-27-2023 15:42-0500 Systolic blood pressure 122 mm[Hg] Ashley Olvera TRIMMER MEAT-PANTRY COOK Work Phone: [facility] 10-03-2022 16:00-0400 Body temperature 97.6 [degF] [employer] Ashley Olvera Work Phone: [facility] 10-03-2022 16:00-0400 Diastolic blood pressure 79 mm[Hg] [employer] ENGINEER-C Ashley Olvera Work Phone: [facility] 10-03-2022 16:00-0400 Heart rate 77 /min [employer]INEER-[employer] Ashley Olvera Work Phone: [facility] 10-03-2022 16:00-0400 Respiratory rate 16 /min [employer] ENGINEER[employer] Ashley Olvera Work Phone: [facility] 10-03-2022 16:00-0400 SaO2% (BldA) [Mass fraction] 100 % [employer]INEER-C Ashley Olvera Work Phone: [facility] 10-03-2022 16:00-0400 Systolic blood pressure 156 mm[Hg] NAV[employer] ENGINEER-C Ashley Olvera Work Phone: [facility] 10-02-2022 20:00-0400 Inhaled oxygen flow rate 2 L/min [employer] Ashley Olvera Work Phone: [facility] 09-29-2022 06:00-0500 Body weight 49 kg [employer] ENG[employer]ER[employer] Ashley Olvera Work Phone: [facility] 09-28-2022 16:10-0500 Body height 147.32 cm NAVAL ENGINEER-C Ashley Olvera Work Phone: [facility] 09-28-2022 16:10-0500 Body mass index (BMI) [Ratio] 18.6 kg/m2 [employer] Ashley Olvera Work Phone: [facility] 12-13-2021 16:30-0400 Body height 152.4 cm Rylie Galvan Other [facility] Other 12-13-2021 16:30-0400 Body mass index (BMI) [Ratio] 19.33 kg/m2 Rylie Mandy Other [facility] [facility] Other 12-13-2021 16:30-0400 Body temperature 98 [degF] Rylie Mandy Other [facility] [facility] Other 12-13-2021 16:30-0400 Body weight 44.91 kg Rylie Galvan Other [facility] [facility] Other 12-13-2021 16:30-0400 Diastolic blood pressure 83 mm[Hg] Rylie Brooksmond Other [facility] [facility] Other 12-13-2021 16:30-0400 Respiratory rate 18 /min Rylie Galvan Other [facility] [facility] Other 12-13-2021 16:30-0400 SaO2% (BldA) [Mass fraction] 97 % Rylie Brooksmond Other [facility] [facility] Other 12-13-2021 16:30-0400 Systolic blood pressure 130 mm[Hg] Rylie Mandy Other [employer] [facility] Other Encounters Encounter Date Encounter Type Care Provider Facility Start: 11-21-2023 End: 11-21-2023 ambulatory ASHLEY OLVERA [facility] Start: 11-07-2023 End: 11-07-2023 ambulatory ITALO DONOHUE Not Available Start: 10-25-2023 End: 10-25-2023 ambulatory [facility] Start: 10-25-2023 End: 10-25-2023 Office outpatient visit 15 minutes Ashley Olvera [employer]IMMER MEAT-PANTRY COOK Work Phone: [facility] Comment on above: Arthritis, multiple joint involvement (Primary Dx); History of healed osteoporosis fracture; Decreased mobility and endurance Start: 10-17-2023 Orders Only Ashley ann TRIMMER MEAT-PANTRY COOK Work Phone: [facility] Comment on above: Arthritis, multiple joint involvement (Primary Dx); Benign essential HTN Start: 10-09-2023 End: 10-09-2023 Refill Justus Gastelum CMA [facility] Comment on above: Arthritis, multiple joint involvement Start: 10-09-2023 End: 10-09-2023 Transitional care manage srvc 7 day discharge Ashley Olvera [employer]IMMER MEAT[employer]PANTRY COOK Work Phone: [facility] Comment on above: Pneumonia of left lo wer lobe due to infectious organism (Primary Dx); Benign essential HTN; Arthritis, multiple joint involvement; Rash and nonspecific skin eruption Start: 09-27-2023 End: 09-27-2023 ambulatory [facility] Start: 09-27-2023 End: 09-27-2023 Office outpatient visit 15 minutes Ashley Olvera [employer]IMMER ME[employer]PANTRY COOK Work Phone: [facility] Comment on above: Rash and nonspecific skin eruption (Primary Dx); 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); Current moderate episode of major depressive disorder without prior episode (CMS-HCC); Malignant neoplasm of colon, unspecified part of colon (CMS-HCC) Start: 07-13-2023 End: 07-13-2023 ambulatory [facility] Start: 07-13-2023 Encounter for genera l adult medical examination without abnormal findings [facility] Start: 10-25-2022 End: 10-25-2022 ambulatory Leighton Valente Other [facility] [facility] Other Start: 10-25-2022 Telephone encounter Leighton Valente [facility] Start: 10-14-2022 End: 10-14-2022 ambulatory ASHLEY OLVERA Facility:[facility] Start: 09-28-2022 End: 10-03-2022 Evaluation and management of inpatient Leighton Valente Facility:[facility] Start: 09-28-2022 End: 10-03-2022 Evaluation and management of inpatient NAVAL ENGINEER-C Ashley Olvera Work Phone: [facility] Work Phone: Start: 09-27-2022 End: 09-28-2022 ambulatory JACIEL STEVE . Facility: Start: 05-02-2022 End: 05-02-2022 ambulatory ADELE NÚÑEZ . Facility:[facility] Start: 04-13-2022 Patient encounter procedure Storm Russell APRN.TUGBOAT CAPTAIN Work Phone: [facility] Start: 04-13-2022 Progress Note Storm GRACIA RN.TUGBOAT CAPTAIN Work Phone: [facility] Department Start: 04-08-2022 Patient encounter procedure Storm Russell APRN.TUGBOAT CAPTAIN Work Phone: [facility] Start: 04-08-2022 Progress Note Storm GARCIA RN.TUGBOAT CAPTAIN Work Phone: [facility] Department Start: 04-05-2022 Patient encounter procedure Itri A Fahad Work Phone: [facility] Start: 04-05-2022 Progress Note Itri A Fahad Work Phone: [employer] Start: 03-31-2022 End: 04-04-2022 Evaluation and management of inpatient DR GAB FONSECA . Facility:[facility] Start: 12-13-2021 End: 12-13-[address] BONIFACIO LEMOS . [facility] Other Start: 12-13-2021 Office outpatient vi sit 15 minutes Rylie Galvan [facility] Procedures Date Procedure Procedure Detail Performing Clinician Start: 10-25-2023 Adult depression screening assessment Ashley Olvera [employer]MER [employer] COOK Work Phone: Start: 10-09-2023 Adult depression screening assessment Ashley Olvera TRIMMER ME[employer]TRY COOK Work Phone: Start: 09-27-2023 Follow-up visit Follow-up ASHLEY OLVERA Start: 09-27-2023 Adult depression screening assessment Ashley Olvera [employer]MER [employer]PAN[employer] COOK Work Phone: Start: 10-03-2022 Plain X-ray of left hip NAVAL ENGINEER-C Ashley Olvera Work Phone: Start: 09-28-2022 Plain X-ray of left hip NAVAL ENGINEER-C Ashley Olvera Work Phone: Start: 09-28-2022 Open reduction with internal fixation NAVAL ENGINEER-C Ashley Olvera Work Phone: Start: 09-28-2022 Plain X-ray of left femur NAVAL ENGINEER-C Ashley Olvera Work Phone: Start: 09-28-2022 Plain X-ray of left hip NAVAL ENGINEER-C Ashley Olvera Work Phone: Plan of Treatment Date Care Activity Detail Author Start: 06-14-2030 DTaP,Tdap and Td Vaccines (3 - Td or Tdap) DTaP,Tdap and Td Vaccines (3 - Td or Tdap) [facility] Start: 10-24-2024 Adult BMI Screening Adult BMI Screening [facility] Start: 10-24-2024 Depression Screening Depression Screening [facility] Start: 10-24-2024 Fall Risk Screening Fall Risk Screening [facility] Start: 10-24-2024 Tobacco Screening Tobacco Screening [facility] Start: 10-08-2024 Adult BMI Screening Adult BMI Screening [facility] Start: 10-08-2024 Depression Screening Depression Screening [facility] Start: 10-08-2024 Fall Risk Screening Fall Risk Screening [facility] Start: 10-08-2024 Tobacco Screening Tobacco Screening [facility] Start: 09-27-2024 Tobacco Screening Tobacco Screening [facility] Start: 09-26-2024 Adult BMI Screening Adult BMI Screening [facility] Start: 09-26-2024 Depression Screening Depression Screening [facility] Start: 09-26-2024 Fall Risk Screening Fall Risk Screening [facility] Start: 07-13-2024 Medicare Annual Wellness Visit Medicare Annual Wellness Visit [facility] Start: 03-24-2024 Influenza vaccination Influenza Vaccine [facility] Start: 03-20-2024 End: 03-20-2024 Patient encounter procedure 03/20/2024 11:20 AM EDT Office Visit [facility] [address] [place] [address] Ashley Olvera, TRIMMER MEAT-PANTRY COOK [address] [place] [address] [facility] Start: 01-09-2024 End: 01-09-2024 Patient encounter procedure 01/09/2024 10:40 AM EDT Office Visit [facility] [address] [place] [address] Ashley Olvera, TRIMMER ME[employer]PANTRY COOK [address] [place] [address] [facility] Start: 11-01-2023 Adult BMI Follow Up Plan Adult BMI Follow Up Plan [facility] Start: 03-24-2023 COVID-19 Vaccine () COVID-19 Vaccine ( season) [facility] Start: 10-03-2022 [facility] Start: 09-28-2022 [facility] Start: 09-28-2022 Consultation [facility] Start: 09-28-2022 Hospital admission [facility] Start: 03-24-2022 Influenza vaccination INFLUENZA (#1) [facility] Start: 07-24-2021 ADVANCE DIRECTIVE DISCUSSION ADVANCE DIRECTIVE DISCUSSION [facility] Start: 04-09-2019 DIABETES SCREEN DIABETES SCREEN [facility] Start: 2000 BONE DENSITY BONE DENSITY [facility] Start: 2000 PNEUMOCOCCAL: 65+ (1 - PCV) PNEUMOCOCCAL: 65+ (1 - PCV) [facility] Start: 1985 SHINGRIX VACCINE (1 of 2) SHINGRIX VACCINE (1 of 2) [facility] Start: 1954 Administration of varicella zoster vaccine Zoster (Shingles) Vaccine (1 of 2) [facility] Start: 1954 Urine microalbumin profile DTAP,TDAP,TD (1 - Tdap) [facility] Start: 03-10-1936 COVID-19 VACCINE (#1) COVID-19 VACCINE (#1) [facility] 25-hydroxyvitamin D2 [Mass/volume] in Serum or Plasma [facility] 25-hydroxyvitamin D3 [Mass/volume] in Serum or Plasma [facility] 25-Hydroxyvitamin D3+25-Hydroxyvitamin D2 [Mass/volume] in Serum or Plasma [facility] Patient referral [facility] Work Phone: XR Hip - left 2 Views [facility] Immunizations Immunization Date Immunization Notes Care Provider Gustabo santos 04-11-2023 Influenza Vaccine, Quadrivalent, Adjuvanted Ashley Olvera TRIMMER MEAT[employer]PANTRY COOK Work Phone: [facility] 04-11-2023 influenza virus vacc ine, unspecified formulation Ashley Olvera TRIMMER MEAT-PANTRY COOK Work Phone: [facility] 05-09-2022 influenza, seasonal, injectable Ashley Olvera TRIMMER MEAT-PANTRY COOK Work Phone: [facility] 05-09-2022 pneumococcal polysaccharide vaccine, 23 valent Ashley Olvera TRIMMER MEAT-PANTRY COOK Work Phone: [facility] 04-21-2022 Influenza Vaccine, Quadrivalent, Adjuvanted Ashley Olvera TRIMMER MEAT-PANTRY COOK Work Phone: [facility] 12-06-2021 COVID-19, mRNA, LNP- S, PF, 30mcg/0.3mL Dose Ashley Olvera TRIMMER MEAT-PANTRY COOK Work Phone: [facility] 11-01-2021 COVID-19, mRNA, LNP- S, PF, 30mcg/0.3mL Dose Ashley Olvera TRIMMER MEAT-PANTRY COOK Work Phone: [facility] 05-17-2021 Influenza, High-dose , Quadrivalent Ashley Olvera TRIMMER MEAT-PANTRY COOK Work Phone: [facility] 06-14-2020 diphtheria, tetanus toxoids and pertussis vaccine Ashley Olvera TRIMMER MEAT-PANTRY COOK Work Phone: [facility] 05-12-2020 Influenza, High-dose , Quadrivalent Ashley Olvera TRIMMER MEAT-PANTRY COOK Work Phone: [facility] 05-07-2019 influenza, high dose seasonal, preservative-free Ashley Olvera TRIMMER MEAT-PANTRY COOK Work Phone: [facility] 04-17-2019 pneumococcal polysaccharide vaccine, 23 valent Ashley Olvera TRIMMER MEAT-PANTRY COOK Work Phone: [facility] 05-07-2018 influenza, high dose seasonal, preservative-free Ashley Olvera TRIMMER MEAT[employer]PANTRY COOK Work Phone: [facility] 05-09-2017 influenza, injectabl e, quadrivalent, preservative free Ashley Olvera TRIMMER MEAT-PANTRY COOK Work Phone: [facility] 01-05-2017 pneumococcal conjuga te vaccine, 13 valent Ashley Olvera TRIMMER MEAT-PANTRY COOK Work Phone: [facility] 01-05-2017 tetanus toxoid, redu cristino diphtheria toxoid, and acellular pertussis vaccine, adsorbed Ashley Olvera TRIMMER MEAT-PANTRY COOK Work Phone: [facility] 05-22-2015 influenza, injectabl e, quadrivalent, preservative free Ashley Olvera TRIMMER MEAT-PANTRY COOK Work Phone: [facility] 04-21-2014 influenza, seasonal, injectable, preservative free Ashley Olvera TRIMMER MEAT-PANTRY COOK Work Phone: [facility] 04-17-2013 influenza virus vacc ine, whole virus Ashley Olvera TRIMMER MEAT-PANTRY COOK Work Phone: [facility] 06-28-2012 pneumococcal vaccine , unspecified formulation Ashley Olvera TRIMMER MEAT-PANTRY COOK Work Phone: [facility] 04-24-2012 influenza virus vacc ine, whole virus Ashley Olvera TRIMMER MEAT-PANTRY COOK Work Phone: [facility] 04-20-2011 influenza virus vacc ine, whole virus Ashley Olvera TRIMMER MEAT-PANTRY COOK Work Phone: [facility] 05-05-2010 influenza virus vacc ine, whole virus Ashley Olvera TRIMMER MEAT-PANTRY COOK Work Phone: [facility] 04-29-2009 influenza virus vacc ine, whole virus Ashley Olvera TRIMMER MEAT-PANTRY COOK Work Phone: [facility] 05-09-2007 influenza virus vacc ine, whole virus Ashley Olvera TRIMMER MEAT-PANTRY COOK Work Phone: [facility] Payers Date Payer Category Payer Medicare [id number] 2022 Self-pay 2016 Medicare [id number] 1959 Medicare [id number] 2.1 [id number] 1959 Private Health Insurance [id number] 1935 Unknown [id number] 2.16.84 [id number] 1935 Unknown [id number] 2.16.84 [id number] 1935 Unknown [id number] 2.16.84 [id number] 1935 Unknown [id number] 2.16.84 [id number] 1935 Unknown [id number] 2.16.84 [id number] 1935 Unknown [id number] 2.16.84 [id number] 1935 Unknown [id number] 2.16.8 [id number] 1935 Unknown [id number] 2.16.8 [id number] 1935 Unknown [id number] 2.16.8 [id number] 1935 Unknown [id number] 2.16.8 [id number] 1935 Unknown [id number] 2.16.84 [id number] Unknown [id number] 2.16.8 [id number] Social History Date Type Detail Facility Start: 08-04-2020 End: 09-28-2023 Sex Assigned At [facility] Start: 05-28-2014 End: 09-21-2022 Tobacco smoking status NHIS Never smoked tobacco [facility] Start: 10-25-2016 End: 10-25-2023 Alcohol intake Current drinker of alcohol (finding) [facility] Start: 1935 Sex Assigned At Not on file [facility] Start: 09-29-2022 Tobacco smoking stat us MAIS Unknown if ever smoked [facility] Start: 1935 Sex Assigned At Female F [facility] Start: 09-21-2022 Tobacco use and exposure Smokeless tobacco non-user [facility] Start: 08-04-2020 End: 09-28-2023 History of Social function [facility] Adolescent depressio n screening assessment 0 [facility] Goals Date Patient Goal Desired Activity /State Functional Status Date Assessment Result Facility 09-28-2022 Functional status Patient Not at Baseline [facility] Work Phone: Mental Status Date Assessment Result Facility 09-28-2022 Cognitive function Cognitive Sta tus Patient Not at Baseline [facility] Work Phone: Clinical Notes 12-13-2021 to 10-25-2023 Ashley Olvera, [facility] - 10/25/2023 11:30 AM EDTTelephone Encounter - Justus Gastelum, [facility] - 10/09/2023 1:17 PM EDTTelephone Encounter - Justus Gastelum, [facility] 10/09/2023 1:17 PM EDT Note Date & Type Note Facility 10-25-2023 History of Present illness Narrative Images from the original note were not included. [address] [facility] [address] SUBJECTIVE: Patient ID: Annamaria Garcia [...] History: Diagnosis Date B12 deficiency Colonic cancer ([facility]) s/p robotic resection. 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 Resides at assisted living in [employer]. ALL QUESTIONS ANSWERED Total time spent was 25 minutes: Preparing to see the patient (e.g., review of tests) Obtaining and/or reviewing separately obtained history Performing a medically appropriate examination and/or evaluation Counseling and educating the patient/family/caregiver Ordering medications, tests, or procedures Follow-up: 4 months GAGE Guerrero 10/25/23 1251 documented in this encounter [facility] 10-09-2023 Miscellaneous Notes Ronel Perryyde Yenifer called and would like the recent Scripts sent to [facility] instead of the other pharmacy that was listed. [phone] documented in this encounter [facility] 10-09-2023 Telephone encounter Note Ronel frausto [address] called and would like the recent Scripts sent to [facility] instead of the other pharmacy that was listed. [phone] [facility] 10-09-2023 History of Present illness Narrative Images from the original note were not included. [place] [address] Patient ID: Annamaria Garcia is a 88 y.o. female. Transition of Care Diagnosis on Discharge: Hypertensive urgency, Left lower lobe penumonia Name of Discharging Facility: [facility] Date of Facility Discharge: October 02, 2023 Date of Interactive Contact and Name of Central Supply Supervisor: Medication Reconciliation Completed: Yes Medication Reconciliation Questions/Concerns: *Follow Up Appointments with Providers: Primary: Ashley Olvera APRN-SARAH Specialty: Dermatology November 06 Specialty: Specialty: Review [...] and Other Services Utilized/Needed by the Patient: [facility] Home care / PT *Additional Questions/Concerns Requiring PCP Follow-Up: Pain control for arthritis SUBJECTIVE: Patient ID: Annamaria Garcia is a 88 y.o. female. Chief Complaint Patient presents with Hypertension [facility] follow up 09/29-10/01 Hypertension This is [...] Guerrero 10/09/23 1307 documented in this encounter [facility] 09-27-2023 History of Present illness Narrative Images from the original note were not included. [address] [facility] [address] SUBJECTIVE: Patient ID: Annamaria Garcia is a [...] but returned worse. Family took her to [facility] ER last week for evaluation. Ordered [...] History: Diagnosis Date B12 deficiency Colonic cancer ([facility]) s/p robotic resection. 3 tumors, no [...] colon cancer, approximately 2014. Was managed by [facility] MURILLO and [facility]. She denies blood in stools, changes in stool patterns. ALL QUESTIONS ANSWERED Total time spent was 25 minutes: Preparing to see the patient (e.g., review of tests) Obtaining and/or reviewing separately obtained history Performing a medically appropriate examination and/or evaluation Counseling and educating the patient/family/caregiver Ordering medications, tests, or procedures Follow-up: 5 months Sooner if needed GAGE Guerrero 09/28/23 9409 documented in this encounter [facility] 10-02-2022 Progress note Note Date/Time October 02, 2022 12:44pm [facility] [address] [place] [address] Hospitalist Progress Note Signed Patient: Annamaria Garcia MR#: [id number] : 1935 Acct:[id number] Age/Sex: 87 / F Adm Date: 3 Loc: 4N Room: [address] [place] [address] Type: ADM IN Attending Dr: Gordon You [...] formulated the plan of care and confirmed PANTRY COOK's written note. Documented By: Miim Artis APRN 10/02/22 1241 Signed By: <Electronically signed by KHURRAM Artis> 10/02/22 1244 <Electronically signed by Gordon You MD> 10/02/22 [address] [facility] Work Phone: 1(702) 867-709503-12-2023 Progress note Author Gordon You [facility] October 02, 2022 9:16pm Note Date/Time October 01, 2022 12: 12pm [facility] [address] [place] [address] Hospitalist Progress Note Signed Patient: Annamaria Garcia MR#: [id number] : 1935 Acct:[id number] Age/Sex: 87 / F Adm Date: 3 Loc: 4N Room: [address] [place] [address] Type: ADM IN Attending Dr: Gordon You [...] the plan of care and confirmed the PANTRY COOK's written note. Documented By: Mimi Artis APRN 10/01/22 1207 Signed By: <Electronically signed by KHURRAM Artis> 10/01/22 1213 <Electronically signed by Gordon You MD> 10/02/22 [facility] Work Phone: 1(425) 654-685303-12-2023 Progress note Author Leighton Valente [facility] October 02, 2022 12:49pm Note Date/Time October 02, 2022 12: 43pm [facility] [address] [place] [address] Orthopedic Progress Note Signed Patient: Annamaria Garcia MR#: [id number] : 1935 Acct:[id number] Age/Sex: 87 / F Adm Date: 3 Loc: 4N Room: [address] [place] [address] Type: ADM IN Attending Dr: Gordon You [...] % (Auto) 72.4 Lymph % (Auto) 12.7 [place] % (Auto) 13.6 Eos % (Auto) 1.0 Baso % (Auto) 0.3 Nucleat RBC Rel Count 0.0 Neut # (Auto) 5.3 Lymph # (Auto) 0.9 L [place] # (Auto) 1.0 H Eos # (Auto) [...] signed by MD Leighton Valente> 10/02/22 12[address] [facility] Work Phone: 1(732) 536-669003-10-2023 Progress note Author Yani Cyr [facility] September 30, 2022 4:42pm Note Date/Time September 30, 2022 12: 30pm [facility] [address] [place] [address] Hospitalist Progress Note Signed Patient: Annamaria Garcia MR#: [id number] : 1935 Acct:[id number] Age/Sex: 87 / F Adm Date: 3 Loc: 4N Room: 3X5611-2 Type: ADM IN Attending Dr: Yani Cyr [...] signed by Yani Cyr MD> 09/30/22 1642 [facility] Work Phone: 1(898) 419-963103-09-2023 Progress note Author Leighton Valente [facility] September 29, 2022 12:30pm Note Date/Time September 29, 2022 7:[address] [facility] [address] [place] [address] Orthopedic Progress Note Signed Patient: Annamaria Garcia MR#: [id number] : 1935 Acct:[id number] Age/Sex: 87 / F Adm Date: 3 Loc: 4N Room: 4C9968-7 Type: ADM IN Attending Dr: Adama Kothari [...] signed by MD Leighton Valente> 09/29/22 1230 [facility] Work Phone: 1(613) 114-939803-09-2023 Consult note Author Leighton Valente [facility] September 29, 2022 7:45am Note Date/Time September 29, 2022 7:[address] [facility] [address] [place] [address] Orthopedic Consult Note Signed Patient: Annamaria Garcia MR#: [id number] : 1935 Acct:[id number] Age/Sex: 87 / F Adm Date: 3 Loc: 4N Room: [address] [place] [address] Type: ADM IN Attending Dr: Adama Kothari MD Copies to: MD Leighton Paul MD Valerie J Castillo NAVAL ENGINEERElizabethC~ History of Present Illness HPI Consult date: 09/29/2022 Requesting provider: Adama Kothari MD History of present illness: Patient is an 87-year-old female who sustained a fall with complaints of left hip pain.. [facility] [place] [facility]. [facility] demonstrated displaced [...] % (Auto) 87.9, Lymph % (Auto) 4.7, [place] % (Auto) 7.4, Eos % (Auto)0.0, Baso % (Auto) 0.0, Nucleat RBC Rel Count 0.1, Neut # (Auto) 10.7 H, Lymph #(Auto) 0.6 L, [place] # (Auto) 0.9 H, Eos # (Auto) [...] signed by MD Leighton Valente> 09/29/22 0745 [facility] Work Phone: [phone]) 165-563503-08-2023 History and physical note Author Juliet Green [facility] September 28, 2022 9:41pm Note Date/Time September 28, 2022 4:[address] [facility] [address] [place] [address] Hospitalist H&P Signed Patient: Annamaria Garcia MR#: [id number] : 1935 Acct:[id number] Age/Sex: 87 / F Adm Date: 3 Loc: Room: [address] [place] [address] Type: ADM IN Attending Dr: Adama Kothari MD Copies to: MD Juliet Paul MD Valerie J Castillo NP-C~ HPI DATE OF EXAMINATION: 09/28/22 CHIEF COMPLAINT: hip fx HISTORY OF PRESENT ILLNESS: 87 years old female sustained what it seems mechanical fall, without any prodromal symptoms at home, where she lives alone, and presented to [place] emergency room where she was diagnosed with [...] Previous records in the computer system reviewed [facility] Vaccinated for COVID-19?: Yes Surgical History (Updated [...] now Documented By: Juliet Green MD 09/28/22 [id number] Signed By: <Electronically signed by Juliet Green MD> 09/28/22 1438 [facility] Work Phone: [phone]) 459-748303-08-2023 Progress note [facility] 28, 2022 7:19pm Note Date/Time September 28, 2022 10:[address] [facility] [address] [place] [address] Hospitalist Progress Note Signed Patient: Annamaria Garcia MR#: [id number] : 1935 Acct:[id number] Age/Sex: 87 / F Adm Date: 3 Loc: 4N Room: [address] [place] [address] Type: ADM IN Attending Dr: Adama Kothari [...] Meq Kcl IV 09/28/23 05:29 75 mls/hr .[id number] XIAO Administration Lactated Ringer's 1,000 mls @ [...] signed by Adama Kothari MD> 09/28/22 1919 [facility] Work Phone: [phone]) 505-563803-08-2023 Hospital Discharge instructions Additional Instructions SNF Physician: [...] Mepilex border foam to Coccyx for protection. [facility] Work Phone: [phone]) 373-801409-26-2022 NoteHNO ID: [id number] Author: Storm Russell APRN.TUGBOAT CAPTAIN Service: ? Author Type: Nurse Specialist Type: Progress Notes Filed: 04/21/2022 7:19 AM Note Text: [facility] NOTE NAME: ANNAMARIA GARCIARAMONSANDRO NO.: [id number] DATE OF SERVICE: 04/18/2022 [facility] DATE OF : 1935 REASON FOR VISIT: The patient is a resident of [facility]. This is a skilled visit [...] no supplement. DICTATED BY: SARAH Bliss/Bernice JOB# [id number] cc:[facility]09-21-2022 NoteHNO ID: [id number] Author: Storm Russell APRN.TUGBOAT CAPTAIN Service: ? Author Type: Nurse Specialist Type: Progress Notes Filed: 04/14/2022 3:59 PM Note Text: [facility] NOTE NAME: ANNAMARIA GARCIARAMONSANRDO NO.: [id number] DATE OF SERVICE: 04/13/2022 [facility] DATE OF : 1935 REASON FOR VISIT: The patient is a resident of [facility]. This is a skilled visit [...] supportive care. DICTATED BY: SARAH Bliss/Bernice JOB# [id number] cc:[facility]09-21-2022 History of Present illness Narrative* Storm Russell APRN.TUGBOAT CAPTAIN - 04/13/2022 12:00 AM EDT [facility] NOTE NAME: STANISLAW GARCIA NO.: [id number] DATE OF SERVICE: 04/13/2022 [facility] DATE OF : 1935 REASON FOR VISIT: The patient is a resident of [facility]. This is a skilled visit [...] supportive care. DICTATED BY: SARAH Bliss/Bernice JOB# [id number] cc:[facility] documented in [facility] encounterMem[facility]22 NoteHNO ID: [id number] Author: Storm Russell APRN.TUGBOAT CAPTAIN Service: ? Author Type: Nurse Specialist Type: Progress Notes Filed: 04/11/2022 7:39 PM Note Text: [facility] CUSTODIAL NOTE NAME: STANISLAW GARCIA NO.: [id number] DATE OF SERVICE: 04/08/2022 [facility] [...] normal range. DICTATED BY: SARAH Bliss JOB# [id number] cc:[facility]09-16-2022 History of Present illness Narrative* Storm Russell APRN.TUGBOAT CAPTAIN - 04/08/2022 12:00 AM EDT [facility] NOTE NAME: STANISLAW GARCIA NO.: [id number] DATE OF SERVICE: 04/08/2022 [facility] [...] normal range. DICTATED BY: SARAH Bliss/Bernice JOB# [id number] cc:[facility] documented in this encounterMemorial Health [facility]09-13-2022 NoteHNO ID: [id number] Author: Debra Vásquez Service: ? Author Type: Physician Type: Progress Notes Filed: 04/06/2022 5:49 PM Note Text: [facility] NOTE NAME: STANISLAW GARCIA NO.: [id number] DATE OF SERVICE: 04/05/2022 [facility] DATE OF : 1935 NEW PATIENT HISTORY AND PHYSICAL HISTORY OF PRESENT ILLNESS: Patient is an 86-year-old female, who is admitted to us from [facility] with a diagnoses of acute nondisplaced [...] she knew that she was somewhere is [place]. She is aware of having had a [...] hospital. DICTATED BY: MD ROCHELLE Silverio/Bernice JOB# [id number] cc:[facility]09-13-2022 History of Present illness Narrative* Debra Vásquez - 04/05/2022 12:00 AM EDT [facility] NOTE NAME: STANISLAW GARCIA NO.: [id number] DATE OF SERVICE: 04/05/2022 [facility] DATE OF : 1935 NEW PATIENT HISTORY AND PHYSICAL HISTORY OF PRESENT ILLNESS: Patient is an 86-year-old female, who is admitted to us from [facility] with a diagnoses of acute nondisplaced [...] she knew that she was somewhere is [place]. She is aware of having had a [...] hospital. DICTATED BY: MD ROCHELLE Silverio/Bernice JOB# [id number] cc:[facility] documented in this encounterMemorial Health [facility]05-23-2022 Evaluation note* Encounter Date Diagnosis Assessment [...] above plan, states she will go to [facility] for further evaluation. 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 ([facility]-HCC) Malignant neoplasm of colon, unspecified part of colon ([facility]-HCC) documented in this encounter [facility] Diagnosis Pneumonia of left lower lobe due to infectious organism- Primary Benign essential HTN Arthritis, multiple joint involvement Unspecified arthropathy, multiple sites Rash and nonspecific skin eruption Rash and other nonspecific skin eruption documented in this encounter [facility]* Diagnosis Arthritis, multiple joint involvement Unspecified arthropathy, multiple sites documented in this encounter [facility]* Diagnosis Arthritis, multiple joint involvement- Primary Unspecified arthropathy, multiple sites Benign essential HTN documented [facility] this [facility]* Diagnosis Arthritis, multiple joint involvement- Primary Unspecified arthropathy, multiple sites History of healed osteoporosis fracture Decreased mobility and endurance documented in this encounter [facility] SystemHistory general Narrative - Reported* Type Description Date Surgical History CATARACT REMOVAL Surgical History CHOLECYSTECTOMY [facility] Other Instructions* Attachments The following attachments cannot be sent through Care Everywhere. * Skin Rash ([place]) documented in this encounterProT[facility] SystemInstructions* Attachments The following attachments cannot be sent through Care Everywhere. * Joint Pain ([place]) documented in this encounterProTuscarawas Hospital SystemInstructionsNot on file documented in this encounterProBryce Hospital DiabetOm[facility] SystemInstructionsNot on file documented in this encounterOhioHealth [facility] SystemInstructions* Attachments The following attachments cannot be sent through Care Everywhere. * Chronic pain ([place]) documented in this encounterOhioHealth [facility] SystemReason for referral (narrative)* Consultation (Routine) - Pending Review Specialty Diagnoses / Procedures Referred By Christiane layton Referred To Contact Dermatology Diagnoses Rash and nonspecific skin eruption Ashley Olvera, [employer] [address] [place] [address] Shawanda Cintron MD [address], [facility] [address] [place] [address] Referral ID Status Reason Start Date Expiration Date Visits Requested Visits Authorized [id number] Pending Review Specialty Services Required 09/27/2023 09/26/2024 1 1 [facility] Advance Directives No Advanced Directives Records FoundDocuments on File Type Date Recorded 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 Advance Directive(s) 04/04/2016 12:27 PM Advance Directive Response Recorded Date/ Time Advance Directives No September 28 2:49am Documents on File Type Date Recorded 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 Advance Directive 04/11/2023 3:23 PM POA Advance Directive 03/08/2023 11:14 AM guar dianship 03/08/2023 Documents on File Type Date Recorded 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 Advance Directive 04/11/2023 3:23 PM [...] Diagnoses Arthritis, multiple joint involvement Ashley Olvera, [employer] [address] [place] [address] Referral ID Status Reason Start Date Expiration Date V isits Requested Visits Authorized [id number] Pending Review 1 1 Additional Source Comments [...] or prosecute any alcohol or drug abuse patient.[facility] HospitalIn the event this information is protected by the Federal Confidentiality of Alcohol and Drug Abuse Patient Records regulations: The Federal rules restrict any use of the information to criminally investigate or prosecute any alcohol or drug abuse patient.[facility] HospitalIn the event this information is protected by the Federal Confidentiality of Alcohol and Drug Abuse Patient Records regulations: The Federal rules restrict any use of the information to criminally investigate or prosecute any alcohol or drug abuse patient.[facility] Care Teams (unrecognized sec tion and content) Cloth Washer Relationship Specialty Start Date End Date Richard He PCP - General Family Practice 05/08/14 Cloth Washer Relationship Specialty Start Date End Date Richard He PCP - General Family Medicine 05/08/14 Team Status: Active Member Role Status Dates Ashley Olvera NAVAL ENGINEER-C Primary Care Provider Active Team Status: Inactive Member Role Status Dates Ashley J Olvera , NAVAL ENGINEER-C Primary Care Provider Active Juliet Green MD Admit Provider Active Leighton Valente MD Other Provider Active Galen Escobar MD Other Provider Active Lilian Van MD Other Provider Active Silvestre Saunders DO Other Provider Active Bulmaro Moses II, MD Other Provider Active Yani Cyr MD Attending Provider Active Cloth Washer Relationship Specialty Start Date End Date [facility] [address] [place] [address] PCP - General Family Medicine 07/23/19 Cloth Washer Relationship Specialty Start Date End Date [facility] [address] [place] [address] PCP - General Family Medicine 07/23/19 Cloth Washer Relationship Specialty Start Date End Date Ashley Olvera [facility] [address] [place] [address] PCP - General Family Medicine 07/23/19 Cloth Washer Relationship Specialty Start Date End Date [facility] [address] [place] [address] PCP - General Family Medicine 07/23/19 INFORMATION SOURCE (unrecogn ized section and content) DATE CREATED AUTHOR 04/25/2022 [facility] DATE CREATED AUTHOR AUTHOR'S ORGANIZ ATION 10/17/2022 [facility] DATE CREATED AUTHOR AUTHOR'S ORGANIZ ATION 10/17/2022 [facility] DATE CREATED AUTHOR AUTHOR'S ORGANIZ ATION 11/08/2023 [facility] DATE CREATED AUTHOR AUTHOR'S ORGANIZ ATION 11/22/2023 [facility] FOR RECORDS PERTAINING TO PATIENTS WHO ARE [...] BE BASED ON THE PRIMARY CLINICAL RECORDS. [facility] Systems[facility]. provides no warranty or guarantee of the accuracy or completeness of information in this document.
[2023-11-30 20:05] VITALS: BP 160/90; PULSE 68; O2SAT 98
--- NOTE | 2023-11-30 20:16 | PC.NURSE ---
Dr. Love placed Rhino rocket in right nare.
--- NOTE | 2023-11-30 20:41 | ED_ITS ---
HPI - Epistaxis General Chief Complaint: Epistaxis Stated Complaint: EPISTAXIS Time Seen by Provider: 11/30/23 19:58 Source: patient and family Mode of arrival: walk-in Limitations: no limitations History of Present Illness HPI Narrative: patient resides at assisted living. Recurrent episodes of bleeding from right nostril . no injury. No headache. Assisted living facility wanted her evaluated to control her bleeding. Arrives and is no longer bleeding Related Data Home Medications ?Medication ?Instructions ?Recorded ?Confirmed acetaminophen 325 mg tablet 325 mg PO Q6H PRN fever or pain 04/10/23 09/30/23 (Tylenol) aspirin 325 mg capsule 325 mg PO DAILY 04/10/23 09/30/23 calcium carbonate 600 mg-vitamin 1 tab PO DAILY 04/10/23 09/30/23 D3 20 mcg (800 unit) chewable tablet (Caltrate 600 plus D) cholecalciferol (vitamin D3) 50 50 mcg PO DAILY 04/10/23 09/30/23 mcg (2,000 unit) capsule ferrous sulfate 325 mg (65 mg 325 mg PO DAILY 04/10/23 09/30/23 iron) tablet,delayed release sertraline 25 mg tablet 25 mg PO Q24H 04/10/23 09/30/23 diphenhydramine HCl 25 mg capsule 25 mg PO Q4H PRN itching 09/30/23 09/30/23 (Allergy (diphenhydramine)) Previous Rx's ?Medication ?Instructions ?Recorded clobetasol 0.05 % topical cream 1 applic topical DAILY 2 weeks #60 09/22/23 grams amlodipine 5 mg tablet 5 mg PO QD 30 days #30 tabs 10/02/23 amoxicillin 875 mg-potassium 1 tab PO BID 7 days #14 tabs 10/02/23 clavulanate 125 mg tablet lidocaine 5 % topical patch 1 patch topical DAILY #30 ea 10/02/23 (Lidoderm) tramadol 50 mg tablet 50 mg PO Q8H PRN pain #20 tabs 10/02/23 Allergies Allergy/AdvReac Type Severity Reaction Status Date / Time No Known Drug Allergies Allergy Verified 11/30/23 18:37 Review of Systems ROS Status of ROS 10 or more systems reviewed and unremark able except as noted in history and below [facility] Medical History (Updated 11/30/23 @ 20:41 by Rad Love MD) Acute hyponatremia ?E87.1 - Hypo-osmolality and hyponatremia (ICD-10) Acute back pain ?M54.9 - Dorsalgia, unspecified (ICD-10) Keratitis ?H16.9 - Unspecified keratitis (ICD-10) Rash and nonspecific skin eruption ?R21 - Rash and other nonspecific skin eruption (ICD-10) Ankle sprain and strain ?S93.409A - Sprain of unspecified ligament of unspecified ankle, initial encounter (ICD-10) ?S96.919A - Strain of unspecified muscle and tendon at ankle and foot level, unspecified foot, initial encounter (ICD-10) Acute anterior epistaxis ?R04.0 - Epistaxis (ICD-10) Chronic mastoiditis, 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 - Chronic mastoiditis, right ear (ICD-10) Bilateral fracture of pubic rami with routine healing ?S32.591D - Other specified fracture of right pubis, subsequent encounter for fracture with routine healing (ICD-10) ?S32.592D - Other specified fracture of left pubis, subsequent encounter for fracture with routine healing (ICD-10) Pubic bone fracture ?S32.509A - Unspecified fracture of unspecified pubis, initial encounter for closed fracture (ICD-10) Hip fracture, intertrochanteric ?S72.143A - Displaced intertrochanteric fracture of unspecified femur, initial encounter for closed fracture (ICD-10) H/O fracture of hip ?Z87.81 - Personal history of (healed) traumatic fracture (ICD-10) Closed sacral fracture ?S32.10XA - Unspecified fracture of sacrum, initial encounter for closed fracture (ICD-10) Dementia ?F03.90 - Unspecified dementia, unspecified severity, without behavioral disturbance, psychotic disturbance, mood disturbance, and anxiety (ICD-10) Osteoporosis ?M81.0 - Age-related osteoporosis without current pathological fracture (ICD- 10) Social History (Updated 10/01/23 @ 03:49 by Caity Arteaga RN) Within the past year, how often did you have a drink containing alcohol: never Score interpretation: A score less than 3 is consistent with normal alcohol consumption. Smoking status: Former smoker Non-prescribed substance use: denies use Gender Identity: female Exam Constitutional Vital Signs, click to edit/add: Last Vital Signs Temp 98.2 F 11/30/23 18:37 Pulse 68 11/30/23 20:05 Resp 18 11/30/23 20:05 BP 160/90 H 11/30/23 20:05 Pulse Ox 98 11/30/23 20:05 O2 Del Method Room Air 11/30/23 20:05 Common normals: no apparent distress, average body habitus, oriented x3, no limitations, healthy appearing, alert and well nourished [facility] Common normals: normocephalic and head/scalp atraumatic Other: dried blood right nostril. No active bleeding Eye Common normals: EOMs intact bilaterally and conjunctivae normal Respiratory Common normals: normal respiratory effort, no retractions, no use of accessory muscles and clear to auscultation bilaterally Cardio Common normals: regular rate, regular rhythm, S1 normal heart sound and S2 normal heart sound Extremity Common normals: normal to inspection and full ROM Neuro Common normals: oriented x3, CN's II-XII intact bilaterally, moves all extremities and no focal motor deficits Psych Appearance: grossly normal Course Vital Signs Vital signs: Vital Signs Temperature 98.2 F 11/30/23 18:37 Pulse Rate 73 11/30/23 18:37 Respiratory Rate 14 11/30/23 18:37 Blood Pressure 162/87 H 11/30/23 18:37 Pulse Oximetry 96 11/30/23 18:37 Oxygen Delivery Method Room Air 11/30/23 18:37 Temperature 98.2 F 11/30/23 18:37 Pulse Rate 68 11/30/23 20:05 Respiratory Rate 18 11/30/23 20:05 Blood Pressure 160/90 H 11/30/23 20:05 Pulse Oximetry 98 11/30/23 20:05 Oxygen Delivery Method Room Air 11/30/23 20:05 MDM - Epistaxis MDM Narrative Medical decision making narrative: presents with recurrent bleeding from right nostril. Arrives and no active bleeding but has dried blood right septum. Nasal Rhino rocket placed. Tolerated well. Discharged home in stable condition Discharge Plan Discharge Stand Alone Forms: Portal Instructions Chief Complaint: Epistaxis Clinical Impression: Epistaxis Patient Disposition: Home, Self-Care Prescriptions / Home Meds: No Action clobetasol 0.05 % cream 1 applic topical DAILY 14 Days Qty: 60 1RF sertraline 25 mg tablet 25 mg PO Q24H ferrous sulfate 325 mg (65 mg iron) tablet,delayed release (DR/EC) 325 mg PO DAILY cholecalciferol (vitamin D3) 50 mcg (2,000 unit) capsule 50 mcg PO DAILY Rx Instructions: 1000 units daily aspirin 325 mg capsule 325 mg PO DAILY Caltrate 600 plus D 600 mg-20 mcg (800 unit) tablet,chewable 1 tab PO DAILY acetaminophen [Tylenol] 325 mg tablet 325 mg PO Q6H PRN (Reason: fever or pain) diphenhydramine HCl [Allergy (diphenhydramine)] 25 mg capsule 25 mg PO Q4H PRN (Reason: itching) amlodipine 5 mg Tablet 5 mg PO QD 30 Days Qty: 30 0RF amoxicillin-pot clavulanate 875-125 mg tablet 1 tab PO BID 7 Days Qty: 14 0RF lidocaine [Lidoderm] 5 % adhesive patch,medicated 1 patch topical DAILY Qty: 30 0RF Rx Instructions: leave on most painful area (tailbone/lumbar spine) for up to 12 hrs tramadol 50 mg tablet 50 mg PO Q8H PRN (Reason: pain) Qty: 20 0RF Print Language: Pashto Instructions: Nosebleed (ED) Additional Instructions: have packing removed in 1-2 days Referrals: ASHLEY BONILLA [Primary Care Provider] - 1 week Procedures ED Procedure Instructions Procedures Procedures: nose bleed right nostril. anterior bleed . nasal Rhino rocket placed without incident. Tolerated well
[2023-11-30] MEDS: AMOXICILLIN 500 MG CAPSULE PO (20:51)
== END 2023-11-30 21:03 | disposition home or self-care (01) ==
PROVIDERS: Emergency Provider Internal Medicine; PCP Nurse Practitioner
DX: R04.0 Epistaxis (principal); Z79.899 Other long term (current) drug therapy; Z79.82 Long term (current) use of aspirin; F03.90 Unspecified dementia, unspecified severity, without behavioral disturbance, psychotic disturbance, mood disturbance, and anxiety; M81.0 Age-related osteoporosis without current pathological fracture; Z87.891 Personal history of nicotine dependence
CPT/HCPCS: 30901; 99283

== ENCOUNTER 2023-12-06 19:45 | Emergency (ER) | payer MEDICARE, SELFPAY ==
--- NOTE | 2023-12-06 19:47 | ED.GENADUL1 ---
HPI HPI - General Adult General Chief complaint: Back Pain/Injury Stated complaint: BACK PAIN Time Seen by Provider: 12/06/23 19:47 Source: patient Mode of arrival: ambulance Limitations: other Limitations comment: History of dementia History of Present Illness HPI narrative: This 88-year-old female was transferred from the [facility] where she resides for evaluation of left low back/left lower quadrant abdominal pain. The pain has been ongoing for a number of days. The patient has a history of dementia and is unable to give me a reliable history. Her niece is here with her and states that when she stood up earlier today she clutched her left lower back area. The patient denies any chest pain or shortness of breath. She denies any urinary symptoms. She does not think she is constipated. She does not think she is having any difficulty urinating. There was no note of any fever from the [facility]. According to the patient's niece she is at her baseline mental status. At the time of my interview the patient appears comfortable and denies any pain at this time. Related Data Home Medications ?Medication ?Instructions ?Recorded ?Confirmed acetaminophen 325 mg tablet 325 mg PO Q6H PRN fever or pain 04/10/23 09/30/23 (Tylenol) aspirin 325 mg capsule 325 mg PO DAILY 04/10/23 09/30/23 calcium carbonate 600 mg-vitamin 1 tab PO DAILY 04/10/23 09/30/23 D3 20 mcg (800 unit) chewable tablet (Caltrate 600 plus D) cholecalciferol (vitamin D3) 50 50 mcg PO DAILY 04/10/23 09/30/23 mcg (2,000 unit) capsule ferrous sulfate 325 mg (65 mg 325 mg PO DAILY 04/10/23 09/30/23 iron) tablet,delayed release sertraline 25 mg tablet 25 mg PO Q24H 04/10/23 09/30/23 diphenhydramine HCl 25 mg capsule 25 mg PO Q4H PRN itching 09/30/23 09/30/23 (Allergy (diphenhydramine)) Previous Rx's ?Medication ?Instructions ?Recorded clobetasol 0.05 % topical cream 1 applic topical DAILY 2 weeks #60 09/22/23 grams amlodipine 5 mg tablet 5 mg PO QD 30 days #30 tabs 10/02/23 amoxicillin 875 mg-potassium 1 tab PO BID 7 days #14 tabs 10/02/23 clavulanate 125 mg tablet lidocaine 5 % topical patch 1 patch topical DAILY #30 ea 10/02/23 (Lidoderm) tramadol 50 mg tablet 50 mg PO Q8H PRN pain #20 tabs 10/02/23 Allergies Allergy/AdvReac Type Severity Reaction Status Date / Time No Known Drug Allergies Allergy Verified 12/06/23 19:53 Opioid HPI Opioid Management Most Recent Opioid Data: Last Pain Scale 7 10/02/23 10:38 Last Pain Intensity 6 10/02/23 10:38 Last ORT Total Score 0 10/01/23 03:53 Last ORT Risk Category Low Risk 10/01/23 03:53 Review of Systems ROS Status of ROS 10 or more systems reviewed and unremarkable except as noted in history and below [facility] Medical History (Updated 12/06/23 @ 22:41 by Beth Ibanez MD) Acute hyponatremia ?E87.1 - Hypo-osmolality and hyponatremia (ICD-10) Acute back pain ?M54.9 - Dorsalgia, unspecified (ICD-10) Keratitis ?H16.9 - Unspecified keratitis (ICD-10) Rash and nonspecific skin eruption ?R21 - Rash and other nonspecific skin eruption (ICD-10) Ankle sprain and strain ?S93.409A - Sprain of unspecified ligament of unspecified ankle, initial encounter (ICD-10) ?S96.919A - Strain of unspecified muscle and tendon at ankle and foot level, unspecified foot, initial encounter (ICD-10) Acute anterior epistaxis ?R04.0 - Epistaxis (ICD-10) Chronic mastoiditis, 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 - Chronic mastoiditis, right ear (ICD-10) Bilateral fracture of pubic rami with routine healing ?S32.591D - Other specified fracture of right pubis, subsequent encounter for fracture with routine healing (ICD-10) ?S32.592D - Other specified fracture of left pubis, subsequent encounter for fracture with routine healing (ICD-10) Pubic bone fracture ?S32.509A - Unspecified fracture of unspecified pubis, initial encounter for closed fracture (ICD-10) Hip fracture, intertrochanteric ?S72.143A - Displaced intertrochanteric fracture of unspecified femur, initial encounter for closed fracture (ICD-10) H/O fracture of hip ?Z87.81 - Personal history of (healed) traumatic fracture (ICD-10) Closed sacral fracture ?S32.10XA - Unspecified fracture of sacrum, initial encounter for closed fracture (ICD-10) Dementia ?F03.90 - Unspecified dementia, unspecified severity, without behavioral disturbance, psychotic disturbance, mood disturbance, and anxiety (ICD-10) Osteoporosis ?M81.0 - Age-related osteoporosis without current pathological fracture (ICD-10) Social History (Updated 10/01/23 @ 03:49 by Caity Arteaga RN) Within the past year, how often did you have a drink containing alcohol: never Score interpretation: A score less than 3 is consistent with normal alcohol consumption. Smoking status: Former smoker Non-prescribed substance use: denies use Gender Identity: female Exam Narrative Exam Narrative: Vital signs and Nursing Notes reviewed: General: Awake, alert, pleasantly confused, no acute distress, lying comfortably on the stretcher HEENT: Normocephalic atraumatic, mucous membranes are moist and pink, eyes are clear, normal conjunctiva, vision is grossly intact, Neck: Supple, no meningeal signs, no anterior or posterior cervical lymphadenopathy Chest: Lungs are clear to auscultation with good air entry, there is no wheezing or rhonchi appreciated, there is faint rales at bilateral bases, patient is speaking in complete sentences-no chest wall tenderness to palpation CVS: Regular rate and rhythm S1-S2, no murmurs rubs or gallops, pulses are brisk and equal bilaterally ABD: Softly distended in the lower abdomen. Questionable minimal tenderness in the left lower quadrant without rebound or guarding. Posterior thoracic area appears normal with no skin rash but there is mild tenderness to palpation. No midline bony vertebral tenderness or step-off Extremities: Moving all extremities, no lower extremity tenderness or swelling noted, negative Homans' sign, pulses are brisk and equal bilaterally Skin: Normal in appearance without rash,pallor, petechiae or purpura Neuro: No focal deficits, pleasantly confused with a history of dementia and at her neurologic baseline according to her niece. Constitutional Vital Signs, click to edit/add: Last Vital Signs Temp 98.2 F 12/06/23 19:49 Pulse 72 12/06/23 22:12 Resp 16 12/06/23 22:12 BP 141/70 12/06/23 22:12 Pulse Ox 99 12/06/23 22:12 O2 Del Method Room Air 12/06/23 19:49 O2 Flow Rate 1 12/06/23 22:12 Course Vital Signs Vital signs: Vital Signs Temperature 98.2 F 12/06/23 19:49 Pulse Rate 73 12/06/23 19:49 Respiratory Rate 18 12/06/23 19:49 Blood Pressure 177/81 H 12/06/23 19:49 Pulse Oximetry 96 12/06/23 19:49 Oxygen Delivery Method Room Air 12/06/23 19:49 Temperature 98.2 F 12/06/23 19:49 Pulse Rate 72 12/06/23 22:12 Respiratory Rate 16 12/06/23 22:12 Blood Pressure 141/70 12/06/23 22:12 Pulse Oximetry 99 12/06/23 22:12 Oxygen Delivery Method Room Air 12/06/23 19:49 Oxygen Delivery Flow Rate 1 12/06/23 22:12 Medical Decision Making MDM Narrative Medical decision making narrative: This 88-year-old female with a history of dementia is transferred from the [facility] the [facility] where she currently resides for evaluation of left low back/left flank and left lower quadrant abdominal pain. According to the nursing report from the [facility] care facility she was complaining of abdominal pain but upon arrival the patient and her niece state that she is having left low back pain. It is unclear whether she has a history of kidney stones. The [facility] report seems to indicate that she did have a history of kidney stones with the patient cannot recall ever having any kidney stones. She is not having any nausea or vomiting. She appears comfortable. She denies that she is having any pain upon arrival. She is at her baseline according to her niece who presented to the emergency department shortly after the patient's arrival. She is pleasantly confused with no gross focal deficits. An IV was placed and she was medicated with IV fluids. Routine labs are reviewed. She has an elevated white count at 17.2 with a stable hemoglobin of 11. Electrolytes are normal. Lactic acid is normal. Urinalysis was obtained by placing a Bernstein catheter and does not appear to be infected. 2 view chest x-ray shows patchy interstitial infiltrates. CT scan of the abdomen pelvis shows a likely acute versus subacute fracture of L2 vertebrae and chronic partial compression of T11 vertebrae with underlying diffuse osteopenia. There is no sign of urinary tract dilatation or kidney stones. Colonic diverticulosis without diverticulitis it was also noted. There was other chronic changes. The results of the CT scan was shared with the patient and her niece. The niece request that she be medicated with something for pain. She has had tramadol in the past which she tolerated without difficulty. We had a lengthy discussion about pain medications in elderly patients with fall risk and the patient has a as needed order for tramadol. I suggest that she continue the tramadol. In light of the elevated white count and patchy interstitial infiltrates on the chest x-ray she was medicated with a dose of doxycycline and will be discharged home with doxycycline to use for the next 10 days. I encouraged the niece to make sure that she follows up closely with her primary care provider for further evaluation and treatment. The patient has remained comfortable and stable in the emergency department throughout her stay and is anxious to be discharged home. Medical Records Medical records reviewed: Yes I reviewed the patient's medical records Medical records narrative: The [address] [address] XRay Report Signed Patient: JIM GARCIA MR#: [id number] : 1935 Acct:[id number] Age/Sex: 88 / F ADM Date: 12/06/23 Loc: ER Attending Dr: Ordering Physician: Beth Ibanez Date of Service: 12/06/23 Procedure(s): XR chest 2V Accession Number(s): [id number] cc: ASHLEY BONILLA ; Beth Ibanez~ The [address] [id number] Patient Name: JIM GARCIA MRN: [id number] date: 1935 Sex: F Assigned Patient Location: ER Current Patient Location: ER Accession/Order Number: [id number] Exam Date: 12/06/2023 21:25 Report Date: 12/06/2023 22:11 At the request of: BETH IBANEZ Procedure: XR chest 2V EXAM: XR chest 2V HISTORY: Hx rib fracture, SOB COMPARISON: None. TECHNIQUE: 2 views of the chest FINDINGS: Heart size normal. Patchy interstitial and alveolar opacities scattered throughout the lungs. No pneumothorax. Small bilateral pleural effusions. XR/XR chest 2V IMPRESSION: Patchy scattered interstitial and alveolar opacities. Small bilateral pleural effusion The [address] [address] [address] Scan Report Signed Patient: JIM GARCIA MR#: [id number] : 1935 Acct:[id number] Age/Sex: 88 / F ADM Date: 12/06/23 Loc: ER Attending Dr: Ordering Physician: Beth Ibanez Date of Service: 12/06/23 Procedure(s): CT abdomen pelvis wo con Accession Number(s): [id number] cc: ASHLEY BONILLA ~ The [place] [id number] Patient Name: JIM GARCIA MRN: [id number] date: 1935 Sex: F Assigned Patient Location: ER Current Patient Location: ER Accession/Order Number: [id number] Exam Date: 12/06/2023 20:16 Report Date: 12/06/2023 21:22 At the request of: BETH IBANEZ Procedure: CT abdomen pelvis wo con EXAM: CT abdomen pelvis wo con , 12/06/2023 HISTORY: left flank pain COMPARISON: Prior CT scan from 09/27/2022 and rib x-rays from 11/14/2023. TECHNIQUE: Noncontrast CT scan of the abdomen and pelvis was performed. Coronal and sagittal reconstructions were performed. Dose reduction techniques were achieved by using automated exposure control and/or adjustment of mA and/or kV according to patient size and/or use of iterative reconstruction technique. FINDINGS: No urolithiasis or urinary tract dilatation. Urinary bladder is unremarkable. No obvious focal kidney lesion. The liver, spleen, pancreas and both adrenal glands are unremarkable, given the limitation of noncontrast study. Postcholecystectomy. No biliary dilatation or significant interval change. Mild atherosclerotic calcification of the abdominal aorta. Colonic diverticulosis without diverticulitis. No bowel loop dilatation or bowel wall thickening. Postsurgical sutures in the right-sided colon. Uterus and adnexa are unremarkable. No free fluid in the peritoneal cavity. The bone windows demonstrate compression fracture of L2 vertebra, which is a new finding compared to 2022. Partial compression of T11 vertebra. Fixation hardware in the left femur. Old fractures of the right-sided ribs posteriorly. Old healed fractures of the pelvic bones. Scans through the lung show mild bilateral atelectasis. CT/CT abdomen pelvis wo con IMPRESSION: 1. Likely acute/subacute fracture of L2 vertebra, and chronic partial compression of T11 vertebra with underlying diffuse osteopenia. Recommend clinical correlation and dedicated spine imaging as indicated. 2. No urolithiasis or urinary tract dilatation. 3. Colonic diverticulosis without diverticulitis. Electronically authenticated by: BEHZAD BARILLAS Date: 12/06/2023 21:22 Lab Data Labs: Lab Results 12/06/23 12/06/23 Range/Units 20:07 21:20 WBC 17.2 H (4.0-11.0) 10^3/uL RBC 3.56 L (4.20-5.40) 10^6/uL Hgb 11.1 L (12.0-16.0) g/dL Hct 32.8 L (36.0-48.0) % MCV 92.1 (81.0-99.0) fL MCH 31.2 (26.7-34.0) pg MCHC 33.8 (29.9-35.2) g/dL RDW 14.0 (11.0-15.0) % Plt Count 468 H (150-450) 10^3/uL MPV 8.7 L (9.5-13.5) fL Seg Neuts % (Manual) 83.0 Lymphocytes % (Manual) 4.0 L (20.5-60.0) % Atypical Lymphs % (Man) 4.0 % Monocytes % (Manual) 7.0 (1.7-12.0) % Eosinophils % (Manual) 0.0 L (0.9-7.0) % Basophils % (Manual) 0.0 L (0.2-2.0) % Myelocytes % 2.0 Neutrophils # (Manual) 14.27 H (1.4-6.5) 10^3/uL Lymphocytes # (Manual) 0.68 L (1.20-3.80) 10^3/uL Abs Atypical Lymphs Man 0.68 Monocytes # (Manual) 1.20 H (0.30-0.80) 10^3/uL Eosinophils # (Manual) 0.00 (0.00-0.70) 10^3/uL Basophils # (Manual) 0.00 (0.00-0.10) 10^3/uL Myelocytes # 0.34 Hypersegmented Neuts 3+ Sodium 131 L (136-145) mmol/L Potassium 3.4 L (3.5-5.1) mmol/L Chloride 96 L (98-107) mmol/L Carbon Dioxide 26.6 (21.0-32.0) mmol/L Anion Gap 11.8 BUN 13.0 (7.0-18.0) mg/dL Creatinine 0.46 L (0.55-1.02) mg/dL Est GFR ( Amer) >60 (>=60) Est GFR (Non-Af Amer) >60 (>=60) BUN/Creatinine Ratio 28.3 Glucose 108 H (74-106) mg/dL Lactate 1.2 (0.4-2.0) mmol/L Calcium 9.8 (8.5-10.1) mg/dL Total Bilirubin 0.5 (0.2-1.0) mg/dL AST 29 (15-37) U/L ALT 11 L (14-59) U/L Alkaline Phosphatase 88 (46-116) U/L Total Protein 7.1 (6.4-8.2) g/dL Albumin 2.8 L (3.4-5.0) g/dL Globulin 4.3 g/dL Albumin/Globulin Ratio 0.7 Urine Color Yellow (YELLOW) Urine Clarity Clear (CLEAR) Urine pH 6.0 (5.0-9.0) Ur Specific [place] 1.020 (1.005-1.025) Urine Protein 30 A (NEG/TRACE) mg/dL Urine Glucose (UA) Negative (NEGATIVE) mg/dL Urine Ketones 15 A (NEGATIVE) mg/dL Urine Occult Blood Negative (NEGATIVE) Urine Nitrite Negative (NEGATIVE) Urine Bilirubin Negative (NEGATIVE) Urine Urobilinogen 1.0 (0.2-1.0) EU/dL Ur Leukocyte Esterase Trace A (NEGATIVE) Urine RBC 0-2 (0-2) #/HPF Urine WBC 5-10 A (NONE SEEN) #/HPF Ur Squamous Epith Cells Rare (NONE/RARE) #/LPF Ur Transition Epith Cell Few A (NONE SEEN) #/LPF Urine Crystals None seen (None Seen) #/HPF Urine Bacteria None seen (NONE SEEN) #/HPF Urine Casts Seen A (NONE SEEN) #/LPF Hyaline Casts Few Urine Mucus Moderate A (NONE SEEN) Ur Culture Indicated? Yes ECG Data Attestation: I personally reviewed and interpreted this ECG as follows: Discharge Plan Discharge Stand Alone Forms: Portal Instructions Chief Complaint: Back Pain/Injury Clinical Impression: Compression fracture of lumbar spine, non-traumatic, Atypical pneumonia Patient Disposition: Home, Self-Care Time of Disposition Decision: 22:39 Condition: Fair Prescriptions / Home Meds: No Action clobetasol 0.05 % cream 1 applic topical DAILY 14 Days Qty: 60 1RF sertraline 25 mg tablet 25 mg PO Q24H ferrous sulfate 325 mg (65 mg iron) tablet,delayed release (DR/EC) 325 mg PO DAILY cholecalciferol (vitamin D3) 50 mcg (2,000 unit) capsule 50 mcg PO DAILY Rx Instructions: 1000 units daily aspirin 325 mg capsule 325 mg PO DAILY Caltrate 600 plus D 600 mg-20 mcg (800 unit) tablet,chewable 1 tab PO DAILY acetaminophen [Tylenol] 325 mg tablet 325 mg PO Q6H PRN (Reason: fever or pain) diphenhydramine HCl [Allergy (diphenhydramine)] 25 mg capsule 25 mg PO Q4H PRN (Reason: itching) amlodipine 5 mg Tablet 5 mg PO QD 30 Days Qty: 30 0RF amoxicillin-pot clavulanate 875-125 mg tablet 1 tab PO BID 7 Days Qty: 14 0RF lidocaine [Lidoderm] 5 % adhesive patch,medicated 1 patch topical DAILY Qty: 30 0RF Rx Instructions: leave on most painful area (tailbone/lumbar spine) for up to 12 hrs tramadol 50 mg tablet 50 mg PO Q8H PRN (Reason: pain) Qty: 20 0RF Print Language: Niuean Instructions: Vertebral Compression Fracture (ED) Additional Instructions: Continue current pain medication with tramadol as needed for pain. Use antibiotics as directed until gone. Referrals: ASHLEY BONILLA [Primary Care Provider] - 1 week
[2023-12-06 19:49] VITALS: BP 177/81; PULSE 73; TEMP 36.8; O2SAT 96
--- OUTSIDE RECORDS SUMMARY | 2023-12-06 20:02 | XMS_ITS | CCD ---
Author Organization [facility] Care Team Providers Care Nurse Navigator Name Role Phone Rylie Galvan Unavailable Richard He Primary Care Provider UnavailRichard Loomis Primary Care Provider UnavailRichard Loomis Primary Care Provider UnavailJULES Chaves Primary Care Provider MD Juliet Green Admit Provider MD Leighton Valente Other Provider MD Galen Escobar Other Provider MD Lilian Van Other Provider DO Silvestre Saunders Other Provider MD Bulmaro Moses II Other Provider MD [...] Bulmaro Moses II Consulting UnavailLeighton Anglin Unavailable Olvera CABLEMANDELROY, Ashley J Primary Care Provid er ITALO DONOHUE Attending Unavailable OLVERAASHLEY J Attending Unavailable OLVERA, ASHLEY J Referring [...] Propensity to adverse reactions to drug 01-11-2017 [facility] Medications Current Medications Medication Drug Class(es) [...] Comment on above: Take 1 capsule by [facility] twice daily. 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 Comment on above: Performed By: #### C MP, CMADM #### [facility] [address] [place] [address] Dr. Nidhi Dawn Basophils/100 WBC (Bld) 0.3 % Normal 0.2-2.0 [facility] Comment on above: Performed By: #### C MP, CMADM #### [facility] [address] [place] [address] Dr. Nidhi Dawn EO # 0.1 103/ul Normal 0.0-0.7 [facility] Comment on above: Performed By: #### C DONA, CMADM #### [facility] [address] [place] [address] Dr. iNdhi Dawn Eosinophils/100 WBC (Bld) 1.2 % Normal 0.9-7.0 [facility] Comment on above: Performed By: #### C DONA, CMADM #### [facility] [address] [place] [address] Dr. Nidhi Dawn Erythrocyte distribution width (RBC) [Ratio] 15.7 % Critically high 11.0-15.0 [facility] Comment on above: Performed By: #### C MP, CMADM #### [facility] [address] [place] [address] Dr. Nidhi Dawn Hematocrit (Bld) [Volume fraction] 28.5 % Critically low 36.0-48.0 [facility] Comment on above: Performed By: #### C MP, CMADM #### [facility] [address] [place] [address] Dr. Nidhi Dawn Hemoglobin (Bld) [Mass/Vol] 8.9 g/dL Critically low 12.0-16.0 [facility] Comment on above: Performed By: #### C HELENA CARCAMO #### [facility] [address] [address] [address] Nidhi Dawn IG # 0.04 10e3/ul Critically high 0.00-0.03 [facility] Comment on above: Performed By: #### C DONA, LEONCIODM #### [facility] [address] [address] [address] Nidhi Dawn IG % 0.7 % Critically high 0.0-0.5 [facility] Comment on above: Performed By: #### C HELENA CARCAMO #### [facility] [address] [place] [address] Dr. Nidhi Dawn LYMPH # 0.9 103/ul Critically low 1.2-3.8 [facility] Comment on above: Performed By: #### C HELENA CARCAMO #### [facility] [address] [place] [address] Dr. Nidhi Dawn Lymphocytes/100 WBC (Bld) 15.6 % Critically low 20.5-60.0 [facility] Comment on above: Performed By: #### C HELENA CARCAMO #### [facility] [address] [place] [address] Dr. Nidhi Dawn MANUAL DIFF REQ NO Normal [facility] Comment on above: Performed By: #### C HELENA CARCAMO #### [facility] [address] [place] [address] Dr. Nidhi Dawn MCH (RBC) [Entitic mass] 30.8 pg Normal 26.7-34.0 [facility] Comment on above: Performed By: #### C HELENA CARCAMO #### [facility] [address] [place] [address] Dr. Nidhi Dawn MCHC (RBC) [Mass/Vol] 31.2 g/dL Normal 29.9-35.2 [facility] Comment on above: Performed By: #### C HELENA CARCAMO #### [facility] [address] [address] [address] Nidhi Dawn MCV (RBC) [Entitic vol] 98.6 fL Normal 81.0-99.0 [facility] Comment on above: Performed By: #### C MP, CMADM #### [facility] [address] [place] [address] Dr. Nidhi Dawn MONO # 0.7 103/ul Normal 0.3-0.8 [facility] Comment on above: Performed By: #### C MP, CMADM #### [facility] [address] [place] [address] Dr. Nidhi Dawn Monocytes/100 WBC (Bld) 11.1 % Normal 1.7-12.0 [facility] Comment on above: Performed By: #### C DONA, CMADM #### [facility] [address] [place] [address] Dr. Nidhi Dawn NEUT # 4.2 103/ul Normal 1.4-6.5 [facility] Comment on above: Performed By: #### C DONA, CMADM #### [facility] [address] [place] [address] Dr. Nidhi Dawn Neutrophils/100 WBC (Bld) 71.1 % Normal 43.0-75.0 [facility] Comment on above: Performed By: #### C DONA, CMADM #### [facility] [address] [place] [address] Dr. Nidhi Dawn Platelet mean volume (Bld) [Entitic vol] 8.5 fL Critically low 9.5-13.5 [facility] Comment on above: Performed By: #### C MP, CMADM #### [facility] [address] [place] [address] Dr. Nidhi Dawn PLT 614 103/ul Critically high 150-450 [facility] Comment on above: Performed By: #### C DONA, CMADM #### [facility] [address] [place] [address] Dr. Nidhi Dawn RBC 2.89 106/ul Critically low 4.20-5.40 [facility] Comment on above: Performed By: #### C DONA, CMADM #### [facility] [address] [place], [place] [address] Dr. Nidhi Dawn WBC 5.8 103/ul Normal 4.0-11.0 [facility] Comment on above: Performed By: #### C MP, CMADM #### [facility] [address] [place], [place] [address] Dr. Nidhi Dawn Basic Metabolic Panelon 09-21 Anion gap [Moles/Vol] 8.2 mmol/L Normal 6.0-15.0 [facility] Comment on above: Performed By: #### F ER, FE and TIBC #### [facility] [address] Calcium [Mass/Vol] 9.1 mg/dL Normal 8.6-10.3 [facility] Comment on above: Performed By: #### F ER, FE and TIBC #### [facility] [address] Chloride [Moles/Vol] 102 mmol/L Normal 98-107 [facility] Comment on above: Performed By: #### F ER, FE and TIBC #### [facility] [address] CO2 [Moles/Vol] 30.5 mmol/L Normal 21.0-31.0 [facility] Comment on above: Performed By: #### F ER, FE and TIBC #### [facility] [address] [place] [address] [place] Creatinine [Mass/Vol] 0.35 mg/dL Low 0.60-1.20 [facility] Comment on above: Performed By: #### F ER, FE and TIBC #### [facility] [address] [place] [address] [place] Creatinine Clr Calc Pharmacy 35.59 Normal [facility] Comment on above: Result Comment: PERF ORMED BY: [place] [address] PATHOLOGIST CLINIC LPN CLARICE OSWALD M.D. Performed By: #### F ER, FE and TIBC #### [facility] [address] [place] [address] [place] GFR/1.73 sq M.predicted MDRD (S/P/Bld) [Vol rate/Area] mL/min/{1.73_m2} Normal [facility] Comment on above: Performed By: #### F ER, FE and TIBC #### [facility] [address] Glucose [Mass/Vol] 104 mg/dL Normal 74-109 [facility] Comment on above: Result Comment: [facility] [place] Glucose Reference Range is dependent on time and content of last meal. Glucose of more than 200 mg/dL in a nonstressed, ambulatory subject supports the diagnosis of Diabetes Mellitus. ADA recommended reference range Performed By: #### F ER, FE and TIBC #### [facility] [address] Potassium [Moles/Vol] 3.7 mmol/L Normal 3.5-5.1 [facility] Comment on above: Performed By: #### F ER, FE and TIBC #### [facility] [address] Sodium [Moles/Vol] 137 mmol/L Normal 136-145 [facility] Comment on above: Performed By: #### F ER, FE and TIBC #### [facility] [address] [place] [address] [place] Urea nitrogen [Mass/Vol] 10 mg/dL Normal 7-25 [facility] Comment on above: Performed By: #### F ER, FE and TIBC #### [facility] [address] [place] [address] [place] Basophils Auto (Bld) [#/Vol] Ordered By: Yani Cyr on 10-03-2022 Basophils (Bld) [#/Vol] 0.0 10*3/uL 0.0-0.2 [facility] Basophils/100 WBC Auto (Bld) Ordered By: Yani Cyr on 10-03-2022 Basophils/100 WBC (Bld) 0.4 % . [facility] Calcium [Mass/volume] in Ser um or PlasmaOrdered By: Yani Cyr on 10-03-2022 Calcium [Mass/Vol] 9.1 mg/dL 8.6-10.3 [facility] Carbon dioxide, total [Moles /volume] in Serum or PlasmaOrdered By: Yani Cyr on 10-03-2022 CO2 [Moles/Vol] 30.5 mmol/L 21.0-31.0 [facility] Chloride [Moles/volume] in S enma or PlasmaOrdered By: Yani Cyr on 10-03-2022 Chloride [Moles/Vol] 102 mmol/L 98-107 [facility] Complete Blood Count Auto Di ffon 10-03-2022 Basophils (Bld) [#/Vol] 0.0 10*3/uL Normal 0.0-0.2 [facility] Comment on above: Result Comment: PERF ORMED BY: [place] [address] PATHOLOGIST CLINIC LPN CLARICE OSWALD M.D. Performed By: #### F ER, FE and TIBC #### [facility] [address] Basophils/100 WBC (Bld) 0.4 % Normal . [facility] Comment on above: Performed By: #### F ER, FE and TIBC #### [facility] [address] Eosinophils (Bld) [#/Vol] 0.1 10*3/uL Normal 0.0-0.45 [facility] Comment on above: Performed By: #### F ER, FE and TIBC #### [facility] [address] [place] [address] [place] Eosinophils/100 WBC (Bld) 1.9 % Normal . [facility] Comment on above: Performed By: #### F ER, FE and TIBC #### [facility] [address] [place] [address] [place] Erythrocyte distribution width (RBC) [Ratio] 14.5 % Normal 11.9-15.3 [facility] Comment on above: Performed By: #### F ER, FE and TIBC #### [address] Hematocrit (Bld) [Volume fraction] 25.7 % Low 34.0-46.4 [facility] Comment on above: Performed By: #### F ER, FE and TIBC #### [address] Hemoglobin (Bld) [Mass/Vol] 8.7 g/dL Low 11.8-15.4 [facility] Comment on above: Performed By: #### F ER, FE and TIBC #### [address] Lymphocytes (Bld) [#/Vol] 1.1 10*3/uL Normal 1.00-4.8 [facility] Comment on above: Performed By: #### F ER, FE and TIBC #### [address] Lymphocytes/100 WBC (Bld) 14.2 % Normal . [facility] Comment on above: Performed By: #### F ER, FE and TIBC #### [address] MCH (RBC) [Entitic mass] 31.5 pg Normal 24.7-34.3 [facility] Comment on above: Performed By: #### F ER, FE and TIBC #### [address] MCV (RBC) [Entitic vol] 92.5 fL Normal 80-100 [facility] Comment on above: Performed By: #### F ER, FE and TIBC #### [address] Mean Corpuscular HGB Conc 34.1 g/dL Normal 32.0-35.0 [facility] Comment on above: Performed By: #### F ER, FE and TIBC #### [address] Monocytes (Bld) [#/Vol] 0.8 10*3/uL Normal 0.0-0.8 [facility] Comment on above: Performed By: #### F ER, FE and TIBC #### [facility] [address] [place] [address] [place] Monocytes/100 WBC (Bld) 10.5 % Normal . [facility] Comment on above: Performed By: #### F ER, FE and TIBC #### [facility] [address] Neutrophils (Bld) [#/Vol] 5.5 10*3/uL Normal 1.8-7.7 [facility] Comment on above: Performed By: #### F ER, FE and TIBC #### [facility] [address] Neutrophils/100 WBC (Bld) 73.0 % Normal . [facility] Comment on above: Performed By: #### F ER, FE and TIBC #### [facility] [address] NRBC% 0.1 /100{WBC} Normal 0-0.5 [facility] Comment on above: Performed By: #### F ER, FE and TIBC #### [facility] [address] Platelet mean volume (Bld) [Entitic vol] 7.5 fL Normal 6.3-10.7 [facility] Comment on above: Performed By: #### F ER, FE and TIBC #### [facility] [address] [place] [address] [place] Platelets (Bld) [#/Vol] 322 10*3/uL Normal 150-450 [facility] Comment on above: Performed By: #### F ER, FE and TIBC #### [facility] [address] [place] [address] [place] RBC (Bld) [#/Vol] 2.77 10*6/uL Low 3.60-5.00 [facility] Comment on above: Performed By: #### F ER, FE and TIBC #### [facility] [address] [place] [address] [place] WBC (Bld) [#/Vol] 7.6 10*3/uL Normal 3.8-11.6 [facility] Comment on above: Performed By: #### F ER, FE and TIBC #### [facility] [address] [place] [address] [facility] Creatinine [Mass/volume] in Serum or PlasmaOrdered By: Yani Cyr on 10-03-2022 Creatinine [Mass/Vol] 0.35 mg/dL 0.60-1.20 [facility] Eosinophils Auto (Bld) [#/Vo l]Ordered By: Yani Cyr on 10-03-2022 Eosinophils (Bld) [#/Vol] 0.1 10*3/uL 0.0-0.45 [facility] Eosinophils/100 WBC Auto (Bl d)Ordered By: Yani Cyr on 10-03-2022 Eosinophils/100 WBC (Bld) 1.9 % . [facility] Erythrocyte distribution wid th Auto (RBC) [Ratio]Ordered By: Yani Cyr on 10-03-2022 Erythrocyte distribution width (RBC) [Ratio] 14.5 % 11.9-15.3 [facility] Glucose [Mass/volume] in Ser um or PlasmaOrdered By: Yani Cyr on 10-03-2022 Glucose [Mass/Vol] 104 mg/dL 74-109 [facility] Comment on above: ADA recommended refe rence rangeRandom Glucose Reference Range is dependent on time and content of last meal. Glucose of more than 200 mg/dL in a nonstressed, ambulatory subject supports the diagnosis of Diabetes Mellitus. Hematocrit Auto (Bld) [Volum e fraction]Ordered By: Yani Cyr on 10-03-2022 Hematocrit (Bld) [Volume fraction] 25.7 % 34.0-46.4 [facility] Hemoglobin [Mass/volume] in BloodOrdered By: Yani Cyr on 10-03-2022 Hemoglobin (Bld) [Mass/Vol] 8.7 g/dL 11.8-15.4 [facility] - Chemistry and C hemistry - challengeOrdered By: Yani Cyr on 10-03-2022 GFR/1.73 sq M.predicted MDRD (S/P/Bld) [Vol rate/Area] mL/min/{1.73_m2} [facility] Leukocytes [#/volume] correc anna marie for nucleated erythrocytes in Blood by Automated counOrdered By: Yani Cyr on 10-03-2022 WBC corrected for nucl RBC Auto (Bld) [#/Vol] 7.6 10*3/uL 3.8-11.6 [facility] Lymphocytes Auto (Bld) [#/Vo l]Ordered By: Yani Cyr on 10-03-2022 Lymphocytes (Bld) [#/Vol] 1.1 10*3/uL 1.00-4.8 [facility] Lymphocytes/100 WBC Auto (Bl d)Ordered By: Yani Cyr on 10-03-2022 Lymphocytes/100 WBC (Bld) 14.2 % . [facility] MCH Auto (RBC) [Entitic mass ]Ordered By: Yani Cyr on 10-03-2022 MCH (RBC) [Entitic mass] 31.5 pg 24.7-34.3 [facility] MCHC Auto (RBC) [Mass/Vol]Or dered By: Yani Cyr on 10-03-2022 MCHC (RBC) [Mass/Vol] 34.1 g/dL 32.0-35.0 [facility] MCV Auto (RBC) [Entitic vol] Ordered By: Yani Cyr on 10-03-2022 MCV (RBC) [Entitic vol] 92.5 fL 80-100 [facility] Monocytes Auto (Bld) [#/Vol] Ordered By: Yani Cyr on 10-03-2022 Monocytes (Bld) [#/Vol] 0.8 10*3/uL 0.0-0.8 [facility] Monocytes/100 WBC Auto (Bld) Ordered By: Yani Cyr on 10-03-2022 Monocytes/100 WBC (Bld) 10.5 % . [facility] Neutrophils Auto (Bld) [#/Vo l]Ordered By: Yani Cyr on 10-03-2022 Neutrophils (Bld) [#/Vol] 5.5 10*3/uL 1.8-7.7 [facility] Neutrophils/100 WBC Auto (Bl d)Ordered By: Yani Cyr on 10-03-2022 Neutrophils/100 WBC (Bld) 73.0 % . [facility] No Panel InformationOrdered By: Yani Cyr on 10-03-2022 Pharmacy Creatinine Clearance (Chem 35.59 [facility] Nucleated erythrocytes [Pres ence] in Blood by Automated countOrdered By: Yani Cyr on 10-03-2022 Nucleated RBC Auto Ql (Bld) 0.1 /100{WBC} 0-0.5 [facility] Platelet mean volume Auto (B ld) [Entitic vol]Ordered By: Yani Cyr on 10-03-2022 Platelet mean volume (Bld) [Entitic vol] 7.5 fL 6.3-10.7 [facility] Platelets Auto (Bld) [#/Vol] Ordered By: Yani Cyr on 10-03-2022 Platelets (Bld) [#/Vol] 322 10*3/uL 150-450 [facility] Potassium [Moles/volume] in Serum or PlasmaOrdered By: Yani Cyr on 10-03-2022 Potassium [Moles/Vol] 3.7 mmol/L 3.5-5.1 [facility] RBC Auto (Bld) [#/Vol]Ordere d By: Yani Cyr on 10-03-2022 RBC (Bld) [#/Vol] 2.77 10*6/uL 3.60-5.00 [facility] Serum or plasma anion gap de terminationOrdered By: Yani Cyr on 10-03-2022 Anion gap [Moles/Vol] 8.2 mmol/L 6.0-15.0 [facility] Sodium [Moles/volume] in Ser um or PlasmaOrdered By: Yani Cyr on 10-03-2022 Sodium [Moles/Vol] 137 mmol/L 136-145 [facility] Urea nitrogen [Mass/volume] in Serum or PlasmaOrdered By: Yani Cyr on 10-03-2022 Urea nitrogen [Mass/Vol] 10 mg/dL 7-25 [facility] WBC Auto (Bld) [#/Vol]Ordere d By: Yani Cyr on 10-03-2022 WBC (Bld) [#/Vol] 7.6 10*3/uL 3.8-11.6 [facility] XR hip LT min 2V(w/wo pelvis )*on 10-03-2022 XR hip LT min 2V(w/wo pelvis)* [facility] [place] [address] [place] [id number] XRay Report Signed Patient: Annamaria Garcia MR#: [id number] : 1935 Acct:[id number] Age/Sex: 87 / F ADM Date: 09/28/22 Loc: Room: [address] [place] [address] Type: ADM IN Attending Dr: Yani Cyr [...] Forrester Jr., D.O.10/03/2022 10:04 AM Dictation Location: [place] [address] Transcribed By: [facility] 10/03/22 1004 Dictated By: Josse Forrester Jr, DO 10/03/22 1003 Signed By: 10/03/22 1004 Normal [facility] Hemoglobin and Hematocriton 10-02-2022 Hematocrit (Bld) [Volume fraction] 21.3 % Low 34.0-46.4 [facility] Comment on above: Result Comment: PERF ORMED BY: [address] [address] PATHOLOGIST CLINIC LPN CLARICE OSWALD M.D. Performed By: #### F ER, FE and TIBC #### [facility] [address] Hemoglobin (Bld) [Mass/Vol] 7.3 g/dL Low 11.8-15.4 [facility] Comment on above: Performed By: #### F ER, FE and TIBC #### [facility] [address] Complete Blood Count Auto Di ffon 10-01-2022 Basophils (Bld) [#/Vol] 0.0 10*3/uL Normal 0.0-0.2 [facility] Comment on above: Result Comment: PERF ORMED BY: [place] [address] PATHOLOGIST CLINIC LPN CLARICE OSWALD M.D. Performed By: #### C BC #### [address] Basophils/100 WBC (Bld) 0.3 % Normal . [facility] Comment on above: Performed By: #### C BC #### [facility] [address] Eosinophils (Bld) [#/Vol] 0.1 10*3/uL Normal 0.0-0.45 [facility] Comment on above: Performed By: #### C BC #### [address] Eosinophils/100 WBC (Bld) 1.0 % Normal . [facility] Comment on above: Performed By: #### C BC #### [address] Erythrocyte distribution width (RBC) [Ratio] 13.8 % Normal 11.9-15.3 [facility] Comment on above: Performed By: #### C BC #### [address] Hematocrit (Bld) [Volume fraction] 21.8 % Low 34.0-46.4 [facility] Comment on above: Performed By: #### C BC #### [address] Hemoglobin (Bld) [Mass/Vol] 7.4 g/dL Low 11.8-15.4 [facility] Comment on above: Performed By: #### C BC #### [address] Lymphocytes (Bld) [#/Vol] 0.9 10*3/uL Low 1.00-4.8 [facility] Comment on above: Performed By: #### C BC #### [address] Lymphocytes/100 WBC (Bld) 12.7 % Normal . [facility] Comment on above: Performed By: #### C BC #### [address] MCH (RBC) [Entitic mass] 31.0 pg Normal 24.7-34.3 [facility] Comment on above: Performed By: #### C BC #### [address] MCV (RBC) [Entitic vol] 91.8 fL Normal 80-100 [facility] Comment on above: Performed By: #### C BC #### [address] Mean Corpuscular HGB Conc 33.8 g/dL Normal 32.0-35.0 [facility] Comment on above: Performed By: #### C BC #### [address] Monocytes (Bld) [#/Vol] 1.0 10*3/uL High 0.0-0.8 [facility] Comment on above: Performed By: #### C BC #### [place] [address] [place] Monocytes/100 WBC (Bld) 13.6 % Normal . [facility] Comment on above: Performed By: #### C BC #### [place] [address] [place] Neutrophils (Bld) [#/Vol] 5.3 10*3/uL Normal 1.8-7.7 [facility] Comment on above: Performed By: #### C BC #### [facility] [address] Neutrophils/100 WBC (Bld) 72.4 % Normal . [facility] Comment on above: Performed By: #### C BC #### [facility] [address] NRBC% 0.0 /100{WBC} Normal 0-0.5 [facility] Comment on above: Performed By: #### C BC #### [facility] [address] Platelet mean volume (Bld) [Entitic vol] 8.0 fL Normal 6.3-10.7 [facility] Comment on above: Performed By: #### C BC #### [facility] [address] Platelets (Bld) [#/Vol] 208 10*3/uL Normal 150-450 [facility] Comment on above: Performed By: #### C BC #### [address] RBC (Bld) [#/Vol] 2.37 10*6/uL Low 3.60-5.00 [facility] Comment on above: Performed By: #### C BC #### [facility] [address] WBC (Bld) [#/Vol] 7.3 10*3/uL Normal 3.8-11.6 [facility] Comment on above: Performed By: #### C BC #### [facility] [address] Basic Metabolic Panelon 03- 0-2022 Anion gap [Moles/Vol] 8.7 mmol/L Normal 6.0-15.0 [facility] Comment on above: Performed By: #### B MP, CBC #### [facility] [address] [place] [address] [place] Calcium [Mass/Vol] 8.3 mg/dL Low 8.6-10.3 [facility] Comment on above: Performed By: #### B MP, CBC #### [facility] [address] Chloride [Moles/Vol] 111 mmol/L High 98-107 [facility] Comment on above: Performed By: #### B MP, CBC #### [facility] [address] CO2 [Moles/Vol] 26.5 mmol/L Normal 21.0-31.0 [facility] Comment on above: Performed By: #### B MP, CBC #### [facility] [address] Creatinine [Mass/Vol] 0.37 mg/dL Low 0.60-1.20 [facility] Comment on above: Performed By: #### B MP, CBC #### [facility] [address] Creatinine Clr Calc Pharmacy 35.59 [facility] Comment on above: Result Comment: PERF ORMED BY: [place] [address] PATHOLOGIST CLINIC LPN CLARICE OSWALD M.D. Performed By: #### B MP, CBC #### [place] [address] [place] GFR/1.73 sq M.predicted MDRD (S/P/Bld) [Vol rate/Area] mL/min/{1.73_m2} [facility] Comment on above: Performed By: #### B MP, CBC #### [facility] [address] Glucose [Mass/Vol] 102 mg/dL Normal 74-109 [facility] Comment on above: Result Comment: [place] Glucose Reference Range is dependent on time and content of last meal. Glucose of more than 200 mg/dL in a nonstressed, ambulatory subject supports the diagnosis of Diabetes Mellitus. ADA recommended reference range Performed By: #### B MP, CBC #### [facility] [address] Potassium [Moles/Vol] 4.2 mmol/L Normal 3.5-5.1 [facility] Comment on above: Performed By: #### B MP, CBC #### [address] Sodium [Moles/Vol] 142 mmol/L Normal 136-145 [facility] Comment on above: Performed By: #### B MP, CBC #### [address] Urea nitrogen [Mass/Vol] 16 mg/dL Normal 7-25 [facility] Comment on above: Performed By: #### B MP, CBC #### [address] Complete Blood Count Auto Di ffon 09-30-2022 Basophils (Bld) [#/Vol] 0.0 10*3/uL Normal 0.0-0.2 [facility] Comment on above: Result Comment: PERF ORMED BY: [place] [address] PATHOLOGIST CLINIC LPN CLARICE OSWALD M.D. Performed By: #### B MP, CBC #### [address] Basophils/100 WBC (Bld) 0.3 % Normal . [facility] Comment on above: Performed By: #### B MP, CBC #### [address] Eosinophils (Bld) [#/Vol] 0.0 10*3/uL Normal 0.0-0.45 [facility] Comment on above: Performed By: #### B MP, CBC #### [place] [address] [place] Eosinophils/100 WBC (Bld) 0.3 % Normal . [facility] Comment on above: Performed By: #### B MP, CBC #### [address] Erythrocyte distribution width (RBC) [Ratio] 14.1 % Normal 11.9-15.3 [facility] Comment on above: Performed By: #### B MP, CBC #### [address] Hematocrit (Bld) [Volume fraction] 22.3 % Low 34.0-46.4 [facility] Comment on above: Performed By: #### B MP, CBC #### [address] Hemoglobin (Bld) [Mass/Vol] 7.8 g/dL Low 11.8-15.4 [facility] Comment on above: Performed By: #### B MP, CBC #### [address] Lymphocytes (Bld) [#/Vol] 1.0 10*3/uL Normal 1.00-4.8 [facility] Comment on above: Performed By: #### B MP, CBC #### [address] Lymphocytes/100 WBC (Bld) 12.9 % Normal . [facility] Comment on above: Performed By: #### B MP, CBC #### [address] MCH (RBC) [Entitic mass] 31.9 pg Normal 24.7-34.3 [facility] Comment on above: Performed By: #### B MP, CBC #### [address] MCV (RBC) [Entitic vol] 91.3 fL Normal 80-100 [facility] Comment on above: Performed By: #### B MP, CBC #### [address] Mean Corpuscular HGB Conc 34.9 g/dL Normal 32.0-35.0 [facility] Comment on above: Performed By: #### B MP, CBC #### [address] Monocytes (Bld) [#/Vol] 1.1 10*3/uL High 0.0-0.8 [facility] Comment on above: Performed By: #### B MP, CBC #### [address] Monocytes/100 WBC (Bld) 13.3 % Normal . [facility] Comment on above: Performed By: #### B MP, CBC #### [facility] [address] Neutrophils (Bld) [#/Vol] 5.9 10*3/uL Normal 1.8-7.7 [facility] Comment on above: Performed By: #### B MP, CBC #### [address] Neutrophils/100 WBC (Bld) 73.2 % Normal . [facility] Comment on above: Performed By: #### B MP, CBC #### [facility] [address] [place] [address] NRBC% 0.0 /100{WBC} Normal 0-0.5 [facility] Comment on above: Performed By: #### B MP, CBC #### [facility] [address] [place] [address] Platelet mean volume (Bld) [Entitic vol] 8.2 fL Normal 6.3-10.7 [facility] Comment on above: Performed By: #### B MP, CBC #### [facility] [address] [place] [address] [place] Platelets (Bld) [#/Vol] 182 10*3/uL Normal 150-450 [facility] Comment on above: Performed By: #### B MP, CBC #### [facility] [address] [place] [address] [place] RBC (Bld) [#/Vol] 2.44 10*6/uL Low 3.60-5.00 [facility] Comment on above: Performed By: #### B MP, CBC #### [address] WBC (Bld) [#/Vol] 8.0 10*3/uL Normal 3.8-11.6 [facility] Comment on above: Performed By: #### B MP, CBC #### [facility] [address] [place] [address] [place] Ferritinon 09-30-2022 Ferritin [Mass/Vol] 53.4 ng/mL Normal 11.0-306.8 [facility] Comment on above: Order Comment: Comme nt add on Result Comment: PERF ORMED BY: [place] [address] PATHOLOGIST CLINIC LPN CLARICE OSWALD M.D. Performed By: #### F ER, FE and TIBC #### [facility] [address] [place] [address] Ferritin [Mass/volume] in Se rum or PlasmaOrdered By: Mimi Artis on 09-30-2022 Ferritin [Mass/Vol] 53.4 ng/mL 11.0-306.8 [facility] Hemoglobin and Hematocriton 09-30-2022 Hematocrit (Bld) [Volume fraction] 25.5 % Low 34.0-46.4 [facility] Comment on above: Result Comment: PERF ORMED BY: [place] [address] PATHOLOGIST CLINIC LPN CLARICE OSWALD M.D. Performed By: #### F ER, FE and TIBC #### [facility] [address] [place] [address] Hemoglobin (Bld) [Mass/Vol] 8.6 g/dL Low 11.8-15.4 [facility] Comment on above: Performed By: #### F ER, FE and TIBC #### [facility] [address] [place] [address] Iron [Mass/volume] in Serum or PlasmaOrdered By: Mimi Artis on 09-30-2022 Iron [Mass/Vol] 20 ug/dL 50-212 [facility] Iron and TIBC Profileon 09-21 0 % Iron Saturation 7.0 % Low 20-[address] [facility] Comment on above: Order Comment: Comme nt add on Performed By: #### F ER, FE and TIBC #### [facility] [address] Iron [Mass/Vol] 20 ug/dL Low 50-212 [facility] Comment on above: Order Comment: Comme nt add on Performed By: #### F ER, FE and TIBC #### [facility] [address] Total Iron Binding Capacity 286 ug/dL Normal 255-450 [facility] Comment on above: Order Comment: Comme nt add on Performed By: #### F ER, FE and TIBC #### [facility] [address] Transferrin [Mass/Vol] 204 mg/dL Normal 203-362 [facility] Comment on above: Order Comment: Comme nt add on Performed By: #### F ER, FE and TIBC #### [facility] [address] Iron binding capacity [Mass/ volume] in Serum or PlasmaOrdered By: Mimi Artis on 09-30-2022 Iron binding capacity [Mass/Vol] 286 ug/dL 255-450 [facility] Iron saturation [Mass Fracti on] in Serum or PlasmaOrdered By: Mimi Obika on 09-30-2022 Iron saturation [Mass fraction] 7.0 % 20-50 [facility] Transferrin [Mass/volume] in Serum or PlasmaOrdered By: Mimi Obika on 09-30-2022 Transferrin [Mass/Vol] 204 mg/dL 203-362 [facility] Basic Metabolic Panelon 030 Anion gap [Moles/Vol] 12.9 mmol/L Normal 6.0-15.0 [facility] Comment on above: Performed By: #### B MP, SCAN CBC #### [facility] [address] Calcium [Mass/Vol] 8.9 mg/dL Normal 8.6-10.3 [facility] Comment on above: Performed By: #### B MP, SCAN CBC #### [facility] [address] [place] [address] [place] Chloride [Moles/Vol] 108 mmol/L High 98-107 [facility] Comment on above: Performed By: #### B MP, SCAN CBC #### [facility] [address] [place] [address] [place] CO2 [Moles/Vol] 21.4 mmol/L Normal 21.0-31.0 [facility] Comment on above: Performed By: #### B MP, SCAN CBC #### [facility] [address] [place] [address] [place] Creatinine [Mass/Vol] 0.56 mg/dL Low 0.60-1.20 [facility] Comment on above: Performed By: #### B MP, SCAN CBC #### [facility] [address] [place] [address] [place] Creatinine Clr Calc Pharmacy 35.59 [facility] Comment on above: Result Comment: PERF ORMED BY: [place] [address] PATHOLOGIST CLINIC LPN CLARICE OSWALD M.D. Performed By: #### B MP, SCAN CBC #### [facility] [address] [place] [address] [place] GFR/1.73 sq M.predicted MDRD (S/P/Bld) [Vol rate/Area] mL/min/{1.73_m2} [facility] Comment on above: Performed By: #### B MP, SCAN CBC #### [facility] [address] [place] [address] [place] Glucose [Mass/Vol] 118 mg/dL High 74-109 [facility] Comment on above: Result Comment: [place] Glucose Reference Range is dependent on time and content of last meal. Glucose of more than 200 mg/dL in a nonstressed, ambulatory subject supports the diagnosis of Diabetes Mellitus. ADA recommended reference range Performed By: #### B MP, SCAN CBC #### [facility] [address] [place] [address] [place] Potassium [Moles/Vol] 4.3 mmol/L Normal 3.5-5.1 [facility] Comment on above: Performed By: #### B MP, SCAN CBC #### [facility] [address] [place] [address] [place] Sodium [Moles/Vol] 138 mmol/L Normal 136-145 [facility] Comment on above: Performed By: #### B MP, SCAN CBC #### [facility] [address] [place] [address] [place] Urea nitrogen [Mass/Vol] 16 mg/dL Normal 7-25 [facility] Comment on above: Performed By: #### B MP, SCAN CBC #### [facility] [address] [place] [address] [place] Platelet adequacy [Presence] in Blood by Light microscopyOrdered By: Mimi Artis on 09-29-2022 Platelets LM Ql (Bld) Normal Normal [facility] Platelet morphology finding [Identifier] in BloodOrdered By: Mimi Artis on 09-29-2022 Platelet morphology finding Nom (Bld) Normal Normal [facility] RBC morphologyOrdered By: Rosalba Artis on 09-29-2022 RBC morphology finding Nom (Bld) Normal Normal [facility] Scan and CBCon 09-29-2022 Basophils (Bld) [#/Vol] 0.0 10*3/uL Normal 0.0-0.2 [facility] Comment on above: Performed By: #### B MP, SCAN CBC #### [facility] [address] [place] [address] [place] Basophils/100 WBC (Bld) 0.1 % Normal . [facility] Comment on above: Performed By: #### B MP, SCAN CBC #### [facility] [address] [place] [address] [place] Eosinophils (Bld) [#/Vol] 0.0 10*3/uL Normal 0.0-0.45 [facility] Comment on above: Performed By: #### B MP, SCAN CBC #### [facility] [address] [place] [address] [place] Eosinophils/100 WBC (Bld) 0.0 % Normal . [facility] Comment on above: Performed By: #### B MP, SCAN CBC #### [facility] [address] Erythrocyte distribution width (RBC) [Ratio] 14.2 % Normal 11.9-15.3 [facility] Comment on above: Performed By: #### B MP, SCAN CBC #### [facility] [address] Hematocrit (Bld) [Volume fraction] 27.0 % Low 34.0-46.4 [facility] Comment on above: Performed By: #### B MP, SCAN CBC #### [facility] [address] Hemoglobin (Bld) [Mass/Vol] 9.1 g/dL Low 11.8-15.4 [facility] Comment on above: Performed By: #### B MP, SCAN CBC #### [address] Lymphocytes (Bld) [#/Vol] 0.9 10*3/uL Low 1.00-4.8 [facility] Comment on above: Performed By: #### B MP, SCAN CBC #### [place] [address] [place] Lymphocytes/100 WBC (Bld) 7.1 % Normal . [facility] Comment on above: Performed By: #### B MP, SCAN CBC #### [facility] [address] [place] [address] [place] MCH (RBC) [Entitic mass] 30.9 pg Normal 24.7-34.3 [facility] Comment on above: Performed By: #### B MP, SCAN CBC #### [facility] [address] [place] [address] [place] MCV (RBC) [Entitic vol] 91.6 fL Normal 80-100 [facility] Comment on above: Performed By: #### B MP, SCAN CBC #### [facility] [address] Mean Corpuscular HGB Conc 33.7 g/dL Normal 32.0-35.0 [facility] Comment on above: Performed By: #### B MP, SCAN CBC #### [facility] [address] [place] [address] [place] Monocytes (Bld) [#/Vol] 1.7 10*3/uL High 0.0-0.8 [facility] Comment on above: Performed By: #### B MP, SCAN CBC #### [facility] [address] [place] [address] [place] Monocytes/100 WBC (Bld) 13.5 % Normal . [facility] Comment on above: Performed By: #### B MP, SCAN CBC #### [facility] [address] [place] [address] [place] Neutrophils (Bld) [#/Vol] 10.2 10*3/uL High 1.8-7.7 [facility] Comment on above: Performed By: #### B MP, SCAN CBC #### [address] Neutrophils/100 WBC (Bld) 79.3 % Normal . [facility] Comment on above: Performed By: #### B MP, SCAN CBC #### [facility] [address] [place] [address] [place] NRBC% 0.0 /100{WBC} Normal 0-0.5 [facility] Comment on above: Performed By: #### B MP, SCAN CBC #### [facility] [address] [place] [address] Platelet Estimate Normal Normal Normal [facility] Comment on above: Performed By: #### B MP, SCAN CBC #### [facility] [address] [place] [address] [place] Platelet mean volume (Bld) [Entitic vol] 8.0 fL Normal 6.3-10.7 [facility] Comment on above: Performed By: #### B MP, SCAN CBC #### [facility] [address] [place] [address] Platelet Morphology Normal Normal Normal [facility] Comment on above: Result Comment: PERF ORMED BY: [place] [address] PATHOLOGIST CLINIC LPN CLARICE OSWALD M.D. Performed By: #### B MP, SCAN CBC #### [facility] [address] [place] [address] [place] Platelets (Bld) [#/Vol] 220 10*3/uL Normal 150-450 [facility] Comment on above: Performed By: #### B MP, SCAN CBC #### [facility] [address] RBC (Bld) [#/Vol] 2.95 10*6/uL Low 3.60-5.00 [facility] Comment on above: Performed By: #### B MP, SCAN CBC #### [facility] [address] RBC morphology finding Nom (Bld) Normal Normal Normal [facility] Comment on above: Performed By: #### B MP, SCAN CBC #### [facility] [address] WBC (Bld) [#/Vol] 12.9 10*3/uL High 3.8-11.6 [facility] Comment on above: Performed By: #### B MP, SCAN CBC #### [facility] [address] [place] [address] [place] XR hip LT min 2V(w/wo pelvis )*on 09-29-2022 XR hip LT min 2V(w/wo pelvis)* [facility] [place] [address] [place] [address] XRay Report Signed Patient: Annamaria Garcia MR#: [id number] : 1935 Acct:[id number] Age/Sex: 87 / F ADM Date: 09/28/22 Loc: Room: [address] [place] [address] Type: ADM IN Attending Dr: Adama Kothari [...] Angie Francisco M.D.09/29/2022 11:29 AM Dictation Location: [facility]- Transcribed By: [facility] 09/29/22 112 Dictated By: Angie Francisco MD 09/29/22 1127 Signed By: 09/29/22 1129 Normal [facility] ABO AND RH TYPEon 09-28-2022 ABO and Rh group Nom (Bld) ABO Rh Typing A Rh Positive Normal [facility] Comment on above: Performed By: #### C MP, CMADM #### [facility] [address] [address] [address] Nidhi Dawn Albumin Levelon 09-28-2022 Albumin [Mass/Vol] 4.0 g/dL Normal 3.5-5.7 [facility] Comment on above: Result Comment: PERF ORMED BY: [place] [address] PATHOLOGIST CLINIC LPN CLARICE OSWALD M.D. Performed By: #### F ER, FE and TIBC #### [facility] [address] Albumin [Mass/volume] in Ser um or Plasma by Bromocresol green (BCG) dye binding methoOrdered By: Bulmaro Moses on 09-28-2022 Albumin BCG dye [Mass/Vol] 4.0 g/dL 3.5-5.7 [facility] Basic Metabolic Panelon Anion gap [Moles/Vol] 10.8 mmol/L Normal 6.0-15.0 [facility] Comment on above: Performed By: #### F ER, FE and TIBC #### [facility] [address] [place] [address] [place] Calcium [Mass/Vol] 9.0 mg/dL Normal 8.6-10.3 [facility] Comment on above: Performed By: #### F ER, FE and TIBC #### [facility] [address] [place] [address] [place] Chloride [Moles/Vol] 103 mmol/L Normal 98-107 [facility] Comment on above: Performed By: #### F ER, FE and TIBC #### [facility] [address] [place] [address] [place] CO2 [Moles/Vol] 28.5 mmol/L Normal 21.0-31.0 [facility] Comment on above: Performed By: #### F ER, FE and TIBC #### [facility] [address] Creatinine [Mass/Vol] 0.40 mg/dL Low 0.60-1.20 [facility] Comment on above: Performed By: #### F ER, FE and TIBC #### [facility] [address] [place] [address] [place] Creatinine Clr Calc Pharmacy 31.68 [facility] Comment on above: Result Comment: PERF ORMED BY: [place] [address] PATHOLOGIST CLINIC LPN CLARICE OSWALD M.D. Performed By: #### F ER, FE and TIBC #### [facility] [address] GFR/1.73 sq M.predicted MDRD (S/P/Bld) [Vol rate/Area] mL/min/{1.73_m2} [facility] Comment on above: Performed By: #### F ER, FE and TIBC #### [facility] [address] [place] [address] [place] Glucose [Mass/Vol] 143 mg/dL High 74-109 [facility] Comment on above: Result Comment: [place] om Glucose Reference Range is dependent on time and content of last meal. Glucose of more than 200 mg/dL in a nonstressed, ambulatory subject supports the diagnosis of Diabetes Mellitus. ADA recommended reference range Performed By: #### F ER, FE and TIBC #### [facility] [address] Potassium [Moles/Vol] 3.3 mmol/L Low 3.5-5.1 [facility] Comment on above: Performed By: #### F ER, FE and TIBC #### [facility] [address] Sodium [Moles/Vol] 139 mmol/L Normal 136-145 [facility] Comment on above: Performed By: #### F ER, FE and TIBC #### [facility] [address] Urea nitrogen [Mass/Vol] 8 mg/dL Normal 7-25 [facility] Comment on above: Performed By: #### F ER, FE and TIBC #### [facility] [address] ABD/PELVIS WO CONon 09-28 CT [...] RAVEN RENNER Date: 2022-09-27 22:38 Normal [facility] CT CSPINE WO CONon 3 CT [...] by: SOPHIE SINGLETON Date: 2022-09-27 22:42 Normal [facility] CT HEAD WO CONon 09-28-2022 CT [...] Normal [facility] CT LSPINE WO CONon 3 CT [...] Normal [facility] Complete Blood Count Auto Di ffon 09-28-2022 Basophils (Bld) [#/Vol] 0.0 10*3/uL Normal 0.0-0.2 [facility] Comment on above: Result Comment: PERF ORMED BY: [address] [place] [address] PATHOLOGIST CLINIC LPN CLARICE OSWALD M.D. Performed By: #### F ER, FE and TIBC #### [facility] [address] Basophils/100 WBC (Bld) 0.0 % Normal . [facility] Comment on above: Performed By: #### F ER, FE and TIBC #### [address] Eosinophils (Bld) [#/Vol] 0.0 10*3/uL Normal 0.0-0.45 [facility] Comment on above: Performed By: #### F ER, FE and TIBC #### [address] Eosinophils/100 WBC (Bld) 0.0 % Normal . [facility] Comment on above: Performed By: #### F ER, FE and TIBC #### [address] Erythrocyte distribution width (RBC) [Ratio] 13.9 % Normal 11.9-15.3 [facility] Comment on above: Performed By: #### F ER, FE and TIBC #### [address] Hematocrit (Bld) [Volume fraction] 33.9 % Low 34.0-46.4 [facility] Comment on above: Performed By: #### F ER, FE and TIBC #### [address] Hemoglobin (Bld) [Mass/Vol] 11.5 g/dL Low 11.8-15.4 [facility] Comment on above: Performed By: #### F ER, FE and TIBC #### [place] [address] [place] Lymphocytes (Bld) [#/Vol] 0.6 10*3/uL Low 1.00-4.8 [facility] Comment on above: Performed By: #### F ER, FE and TIBC #### [address] Lymphocytes/100 WBC (Bld) 4.7 % Normal . [facility] Comment on above: Performed By: #### F ER, FE and TIBC #### [facility] [address] MCH (RBC) [Entitic mass] 30.8 pg Normal 24.7-34.3 [facility] Comment on above: Performed By: #### F ER, FE and TIBC #### [address] MCV (RBC) [Entitic vol] 90.8 fL Normal 80-100 [facility] Comment on above: Performed By: #### F ER, FE and TIBC #### [address] Mean Corpuscular HGB Conc 34.0 g/dL Normal 32.0-35.0 [facility] Comment on above: Performed By: #### F ER, FE and TIBC #### [address] Monocytes (Bld) [#/Vol] 0.9 10*3/uL High 0.0-0.8 [facility] Comment on above: Performed By: #### F ER, FE and TIBC #### [address] Monocytes/100 WBC (Bld) 7.4 % Normal . [facility] Comment on above: Performed By: #### F ER, FE and TIBC #### [address] Neutrophils (Bld) [#/Vol] 10.7 10*3/uL High 1.8-7.7 [facility] Comment on above: Performed By: #### F ER, FE and TIBC #### [address] Neutrophils/100 WBC (Bld) 87.9 % Normal . [facility] Comment on above: Performed By: #### F ER, FE and TIBC #### [address] NRBC% 0.1 /100{WBC} Normal 0-0.5 [facility] Comment on above: Performed By: #### F ER, FE and TIBC #### [facility] [address] Platelet mean volume (Bld) [Entitic vol] 8.0 fL Normal 6.3-10.7 [facility] Comment on above: Performed By: #### F ER, FE and TIBC #### [facility] [address] Platelets (Bld) [#/Vol] 253 10*3/uL Normal 150-450 [facility] Comment on above: Performed By: #### F ER, FE and TIBC #### [facility] [address] RBC (Bld) [#/Vol] 3.73 10*6/uL Normal 3.60-5.00 [facility] Comment on above: Performed By: #### F ER, FE and TIBC #### [facility] [address] WBC (Bld) [#/Vol] 12.2 10*3/uL High 3.8-11.6 [facility] Comment on above: Performed By: #### F ER, FE and TIBC #### [address] ECG 12 lead ECGon 09-28-2022 ECG 12 lead ECG [facility] [place] [address] [place] [address] Electrocardiograph Report Signed Patient: Annamaria Garcia MR#: [id number] : 1935 Acct:[id number] Age/Sex: 87 / F ADM Date: 09/28/22 Loc: Room: [address] [place] [address] Type: ADM IN Attending Dr: Adama Kothari [...] Estee Knight MD 0 09/28/22 1508 Normal [facility] ER URINE PROFILEon 3 Bilirubin Ql (U) Negative Normal NEGATIVE [facility] Comment on above: Performed By: #### C MP, CMADM #### [facility] [address] [place] [address] Dr. Nidhi Dawn Clarity (U) CLEAR Normal CLEAR [facility] Comment on above: Performed By: #### C MP, CMADM #### [facility] [address] [place] [address] Dr. Nidhi Dawn Color (U) LT. YELLOW Normal YELLOW [facility] Comment on above: Performed By: #### C MP, CMADM #### [facility] [address] [address] [address] Nidhi TERRAZAS A micrscopic examina tion will be performed if indicated. Normal [facility] Comment on above: Performed By: #### C MP, CMADM #### [facility] [address] [place] [address] Dr. Nidhi Dawn Glucose Ql (U) Negative Normal NEGATIVE [facility] Comment on above: Performed By: #### C MP, CMADM #### [facility] [address] [address] [address] Nidhi Dawn Hemoglobin Ql (U) Negative Normal NEGATIVE [facility] Comment on above: Performed By: #### C MP, CMADM #### [facility] [address] [place] [address] Dr. Nidhi Dawn Ketones Ql (U) 40 mg/dl Abnormal NEGATIVE [facility] Comment on above: Performed By: #### C MP, CMADM #### [facility] [address] [address] [address] Nidhi Dawn LEUKOCYTES Negative Normal NEGATIVE [facility] Comment on above: Performed By: #### C MP, CMADM #### [facility] [address] [address] [address] Nidhi Dawn Nitrite Ql (U) Negative Normal NEGATIVE [facility] Comment on above: Performed By: #### C DONA, CMADM #### [facility] [address] [place] [address] Dr. Nidhi Dawn pH (U) 7.0 [pH] Normal 5-9 [facility] Comment on above: Performed By: #### C DONA, CMADM #### [facility] [address] [place] [address] Dr. Nidhi Dawn SPEC GRAVITY 1.010 Normal 1.005-<=1.0 25 [facility] Comment on above: Performed By: #### C DONA, CMADM #### [facility] [address] [place] [address] Dr. Nidhi Dawn UA PROTEIN TRACE Normal NEGATIVE/ TRACE [facility] Comment on above: Performed By: #### C DONA, CMADM #### [facility] [address] [place] [address] Dr. Nidhi Dawn UR MICRO IND NOT INDICATED Normal [facility] Comment on above: Performed By: #### C DONA, CMADM #### [facility] [address] [place] [address] Dr. Nidhi Dawn Urobilinogen Qn (U) 0.2 {Lawrence'U}/dL Normal 0.2 - 1. 0 [facility] Comment on above: Performed By: #### C DONA, CMADM #### [facility] [address] [place] [address] Dr. Nidhi Dawn Glucose Glucometer (dC) [M ass/Vol]Ordered By: Juliet Green on 09-28-2022 Glucose [Mass/Vol] 107 mg/dL [facility] Comment on above: Random Glucose Refer ence Range is dependent on time and content of last meal. Glucose of more than 200 mg/dL in a nonstressed, ambulatory subject supports the diagnosis of Diabetes Mellitus. Glucose Poct Glucometerson 0 09-28-2022 Glucose [Mass/Vol] 107 mg/dL Normal [facility] Comment on above: Result Comment: [facility] [place] Glucose Reference Range is dependent on time and content of last meal. Glucose of more than 200 mg/dL in a nonstressed, ambulatory subject supports the diagnosis of Diabetes Mellitus. PERFORMED BY: [place] [address] PATHOLOGIST CLINIC LPN CLARICE OSWALD M.D. Performed By: #### G LULS #### Point of Care testing , Laboratory - CoagulationOrde red By: Juliet Green on 09-28-2022 PT Coag (PPP) [Time] 13.1 s 9.0-12.9 [facility] Magnesiumon 09-28-2022 Magnesium [Mass/Vol] 1.9 mg/dL Normal 1.9-2.7 [facility] Comment on above: Order Comment: Comme nt add Result Comment: PERF ORMED BY: [place] [address] PATHOLOGIST [facility]IN[facility] LPN CLARICE OSWALD M.D. Performed By: #### M G #### [address] Magnesium [Mass/volume] in S enma or PlasmaOrdered By: Juliet Green on 09-28-2022 Magnesium [Mass/Vol] 1.9 mg/dL 1.9-2.7 [facility] Platelet poor plasma interna tional normalized ratio (INR) by coagulation assay (relatOrdered By: Juliet Green on 09-28-2022 INR Coag (PPP) [Relative time] 1.1 {INR} [facility] Comment on above: INR Therapeutic Rang [...] Coag (PPP) [Relative time] 1.1 {INR} Normal [facility] Comment on above: Result Comment: INR [...] heart valves: 3 - 4.5 PERFORMED BY: [place] [address] PATHOLOGIST [facility]IN[facility] LPN CLARICE OSWALD M.D. Performed By: #### F ER, FE and TIBC #### [facility] [address] [place] [address] PT Coag (PPP) [Time] 13.1 s High 9.0-12.9 [facility] Comment on above: Performed By: #### F ER, FE and TIBC #### [facility] [address] [place] [address] Vitamin B12on 09-28-2022 Cobalamin (Vitamin B12) [Mass/Vol] 202 pg/mL Normal 180-914 [facility] Comment on above: Result Comment: PERF ORMED BY: [place] [address] PATHOLOGIST [facility]IN[facility] LPN CLARICE OSWALD M.D. Performed By: #### B 12 #### [facility] [address] [place] [address] Vitamin B12 ser/plasOrdered By: Mmii Artis on 09-28-2022 Cobalamin (Vitamin B12) [Mass/Vol] 202 pg/mL 180-914 [facility] Vitamin D 25 Hydroxy,Tot+D2+ D3on 09-28-2022 Vitamin D 25 OH (LC) 33 ng/mL Normal . [facility] Comment on above: Result Comment: Refe rence Range: All Ages: Target levels 30 - 100 Performed By: #### F ER, FE and TIBC #### [address] Vitamin D-2 <1.0 Normal . [facility] Comment on above: Result Comment: This test was developed and its performance characteristics determined by [facility]. It has not been cleared or approved by the Food and Drug Administration. Performed By: #### F ER, FE and TIBC #### [address] Vitamin D-3 33 ng/mL Normal . [facility] Comment on above: Result Comment: This test was developed and its performance characteristics determined by [facility]. It has not been cleared or approved by the Food and Drug Administration. Performed at: [facility] [address] [place] [address] [id number] [employer] Blockmaker: Avel Dempsey MD, Phone: [phone] PERFORMED BY: [place] [address] PATHOLOGIST CLINIC LPN CLARICE OSWALD M.D. Performed By: #### F ER, FE and TIBC #### [address] XR femur LT 2V*on 09-28-2022 XR femur LT 2V* [facility] [place] [address] XRay Report Signed Patient: Annamaria Garcia MR#: [id number] : 1935 Acct:[id number] Age/Sex: 87 / F ADM Date: 09/28/22 Loc: Room: [address] [place] [address] Type: ADM IN Attending Dr: Juliet Green MD Copies to: MD Juliet Lennon MD Ordering Provider: Bulmaro Moses MD Date of Service: 09/28/22 XR/XR femur LT 2V*: left fem head fx ([id number]) XR/XR low pelvis w/LT x-table hip: left [...] fractures or dislocation are seen within the krukw-gw-urfo. There is mild degenerative change at the knee with medial tibiofemoral joint compartment narrowing and minor tricompartment marginal spurring. There are no focal soft tissue findings. IMPRESSION: NO ACUTE BONY INJURY WITHIN THE [id number]. Impression dictated by: Angie Francisco M.D.09/28/2022 7:21 AM Dictation Location: [place] [address] Transcribed By: [facility] 09/28/22720 Dictated By: Angie Francisco MD 09/28/2216 Signed By: 09/28/22720 [facility] CARDIAC CELESTINO ADMITon 023 CK [Catalytic activity/Vol] 96 U/L Normal 26-192 [facility] Comment on above: Performed By: #### C HELENA CARCAMO #### [facility] [address] [place], [place] [address] Dr. Nidhi Dawn CK.MB [Mass/Vol] 2.59 ng/mL Normal <=3.60 [facility] Comment on above: Performed By: #### C HELENA CARCAMO #### [facility] [address] [place], [place] [address] Dr. Nidhi Dawn HSTROP 8.6 pg/mL Normal 4.0-51.3 [facility] Comment on above: Result Comment: CUT- OFF POINTS HAVE BEEN ESTABLISHED BASED ON THE FOURTH UNIVERSAL DEFINITIONS OF MYOCARDIAL INFARCTION. THE UPPER REFERENCE LIMIT (URL) OF TROPONIN, DEFINED THE 99TH PERCENTILE OF cTnI DISTRIBUTION IN A REFERENCE POPULATION, HAS BEEN CONFIRMED THE DECISION THRESHOLD FOR AR DIAGNOSIS. Performed By: #### C HELENA CARCAMO #### [facility] [address] [place] [address] Dr. Nidhi Dawn BOBBY 75 ng/mL Normal 9-82 [facility] Comment on above: Performed By: #### C HELENA CARCAMO #### [facility] [address] [place] [address] Dr. Nidhi Dawn CBC AUTO DIFFon 09-27-2022 BASO # 0.0 103/ul Normal 0.0-0.1 [facility] Comment on above: Performed By: #### C BC #### [facility] [address] [place] [address] Dr. Nidhi Dawn Basophils/100 WBC (Bld) 0.2 % Normal 0.2-2.0 [facility] Comment on above: Performed By: #### C BC #### [facility] [address] [place] [address] Dr. Nidhi Dawn EO # 0.0 103/ul Normal 0.0-0.7 [facility] Comment on above: Performed By: #### C BC #### [facility] [address] [place] [address] Dr. Nidhi Dawn Eosinophils/100 WBC (Bld) 0.1 % Critically low 0.9-7.0 [facility] Comment on above: Performed By: #### C BC #### [facility] [address] [place] [address] Dr. Nidhi Dawn Erythrocyte distribution width (RBC) [Ratio] 13.2 % Normal 11.0-15.0 [facility] Comment on above: Performed By: #### C BC #### [facility] [address] [place] [address] Dr. Nidhi Dawn Hematocrit (Bld) [Volume fraction] 34.6 % Critically low 36.0-48.0 [facility] Comment on above: Performed By: #### C BC #### [facility] [address] [address] [address] Nidhi Dawn Hemoglobin (Bld) [Mass/Vol] 11.7 g/dL Critically low 12.0-16.0 [facility] Comment on above: Performed By: #### C BC #### [facility] [address] [address] [address] Nidhi Dawn IG # 0.06 10e3/ul Critically high 0.00-0.03 [facility] Comment on above: Performed By: #### C BC #### [facility] [address] [place] [address] Dr. Nidhi Dawn IG % 0.4 % Normal 0.0-0.5 [facility] Comment on above: Performed By: #### C BC #### [facility] [address] [place] [address] Dr. Nidhi Dawn LYMPH # 1.1 103/ul Critically low 1.2-3.8 [facility] Comment on above: Performed By: #### C BC #### [facility] [address] [place] [address] Dr. Nidhi Dawn Lymphocytes/100 WBC (Bld) 7.0 % Critically low 20.5-60.0 [facility] Comment on above: Performed By: #### C BC #### [facility] [address] [place] [address] Dr. Nidhi Dawn MANUAL DIFF REQ NO Normal [facility] Comment on above: Performed By: #### C BC #### [facility] [address] [place] [address] Dr. Nidhi Dawn MCH (RBC) [Entitic mass] 31.0 pg Normal 26.7-34.0 [facility] Comment on above: Performed By: #### C BC #### [facility] [address] [place] [address] Dr. Nidhi Dawn MCHC (RBC) [Mass/Vol] 33.8 g/dL Normal 29.9-35.2 [facility] Comment on above: Performed By: #### C BC #### [facility] [address] [place] [address] Dr. Nidhi Dawn MCV (RBC) [Entitic vol] 91.8 fL Normal 81.0-99.0 [facility] Comment on above: Performed By: #### C BC #### [facility] [address] [place] [address] Dr. Nidhi Dawn MONO # 1.1 103/ul Critically high 0.3-0.8 [facility] Comment on above: Performed By: #### C BC #### [facility] [address] [place] [address] Dr. Nidhi Dawn Monocytes/100 WBC (Bld) 7.0 % Normal 1.7-12.0 [facility] Comment on above: Performed By: #### C BC #### [facility] [address] [place] [address] Dr. Nidhi Dawn NEUT # 13.1 103/ul Critically high 1.4-6.5 [facility] Comment on above: Performed By: #### C BC #### [facility] [address] [place] [address] Dr. Nidhi Dawn Neutrophils/100 WBC (Bld) 85.3 % Critically high 43.0-75.0 [facility] Comment on above: Performed By: #### C BC #### [facility] [address] [place] [address] Dr. Nidhi Dawn Platelet mean volume (Bld) [Entitic vol] 9.1 fL Critically low 9.5-13.5 [facility] Comment on above: Performed By: #### C BC #### [facility] [address] [place] [address] Dr. Nidhi Dawn PLT 274 103/ul Normal 150-450 [facility] Comment on above: Performed By: #### C BC #### [facility] [address] [place] [address] Dr. Nidhi Dawn RBC 3.77 106/ul Critically low 4.20-5.40 [facility] Comment on above: Performed By: #### C BC #### [facility] [address] [place] [address] Dr. Nidhi Dawn WBC 15.4 103/ul Critically high 4.0-11.0 [facility] Comment on above: Performed By: #### C BC #### [facility] [address] [place] [address] Dr. Nidhi Dawn MAGNESIUMon 09-27-2022 Magnesium [Mass/Vol] 1.6 mg/dL Critically low 1.8-2.4 [facility] Comment on above: Performed By: #### C BC #### [facility] [address] [place] [address] Dr. Nidhi Dawn PROF 14(COMP METB)on 023 Albumin [Mass/Vol] 3.6 g/dL Normal 3.4-5.0 [facility] Comment on above: Performed By: #### C LEONCIO CARCAMODM #### [facility] [address] [place] [address] Dr. Nidhi Dawn Albumin/Globulin [Mass ratio] 1.2 {ratio} Normal [facility] Comment on above: Performed By: #### C DONA CMADM #### [facility] [address] [place] [address] Dr. Nidhi Dawn ALP [Catalytic activity/Vol] 60 U/L Normal 46-116 [facility] Comment on above: Performed By: #### C DONA, CMADM #### [facility] [address] [place] [address] Dr. Nidhi Dawn ALT [Catalytic activity/Vol] 18 U/L Normal 14-59 [facility] Comment on above: Performed By: #### C DONA, CMADM #### [facility] [address] [place] [address] Dr. Nidhi Dawn Anion gap [Moles/Vol] 9.3 mmol/L Normal [facility] Comment on above: Performed By: #### C DONA, CMADM #### [facility] [address] [place] [address] Dr. Nidhi Dawn AST [Catalytic activity/Vol] 19 U/L Normal 15-37 [facility] Comment on above: Performed By: #### C DONA, CMADM #### [facility] [address] [address] [address] Nidhi Dawn Bilirubin [Mass/Vol] 0.4 mg/dL Normal 0.2-1.0 [facility] Comment on above: Performed By: #### C DONA, CMADM #### [facility] [address] [place] [address] Dr. Nidhi Dawn Calcium [Mass/Vol] 8.8 mg/dL Normal 8.5-10.1 [facility] Comment on above: Performed By: #### C DONA, CMADM #### [facility] [address] [place] [address] Dr. Nidhi Dawn Chloride [Moles/Vol] 104 mmol/L Normal 98-107 [facility] Comment on above: Performed By: #### C DONA, CMADM #### [facility] [address] [place] [address] Dr. Nidhi Dawn CO2 [Moles/Vol] 30.6 mmol/L Normal 21.0-32.0 [facility] Comment on above: Performed By: #### C DONA, CMADM #### [facility] [address] [place] [address] Dr. Nidhi Dawn Creatinine [Mass/Vol] 0.43 mg/dL Critically low 0.55-1.02 [facility] Comment on above: Performed By: #### C DONA, CMADM #### [facility] [address] [place] [address] Dr. Nidhi Dawn EGFR-AF SWISS >60 Normal >=60 [facility] Comment on above: Performed By: #### C DONA, CMADM #### [facility] [address] [place] [address] Dr. Nidhi Dawn EGFR-NON AF SWISS >60 Normal >=60 [facility] Comment on above: Performed By: #### C DONA, CMADM #### [facility] [address] [place] [address] Dr. Nidhi Dawn Globulin (S) [Mass/Vol] 3.0 g/dL Normal [facility] Comment on above: Performed By: #### C DONA, CMADM #### [facility] [address] [address] [address] Nidhi Dawn Glucose [Mass/Vol] 152 mg/dL Critically high 74-106 [facility] Comment on above: Performed By: #### C MP, CMADM #### [facility] [address] [address] [address] Nidhi Dawn Potassium [Moles/Vol] 2.9 mmol/L Critically low 3.5-5.1 [facility] Comment on above: Performed By: #### C MP, CMADM #### [facility] [address] [address] [address] Nidhi Dawn Protein [Mass/Vol] 6.6 g/dL Normal 6.4-8.2 [facility] Comment on above: Performed By: #### C DONA, CMADM #### [facility] [address] [address] [address] Nidhi Dawn Sodium [Moles/Vol] 140 mmol/L Normal 136-145 [facility] Comment on above: Performed By: #### C DONA, CMADM #### [facility] [address] [address] [address] Nidhi Dawn Urea nitrogen [Mass/Vol] 5.0 mg/dL Critically low 7.0-18.0 [facility] Comment on above: Performed By: #### C DONA, CMADM #### [facility] [address] [place] [address] Dr. Nidhi Dawn Urea nitrogen/Creatinine [Mass ratio] 11.6 mg/mg Normal [facility] Comment on above: Performed By: #### C DONA, CMADM #### [facility] [address] [address] [address] PELVIS WO CONon [...] TAYLOR PENA Date: 2022-05-02 16:39 Normal [facility] T4 LABCORPon 04-05-2022 T4 [Mass/Vol] 6.9 ug/dL Normal 4.5-12.0 [facility] Comment on above: Performed By: #### C BC #### [facility] [address] [address] [address] Nidhi Dawn CBC AUTO DIFFon 04-04-2022 BASO # 0.0 103/ul Normal 0.0-0.1 [facility] Comment on above: Performed By: #### C BC #### [facility] [address] [address] [address] Nidhi Dawn Basophils/100 WBC (Bld) 0.4 % Normal 0.2-2.0 [facility] Comment on above: Performed By: #### C BC #### [facility] [address] [place] [address] Dr. Nidhi Dawn EO # 0.2 103/ul Normal 0.0-0.7 [facility] Comment on above: Performed By: #### C BC #### [facility] [address] [place] [address] Dr. Nidhi Dawn Eosinophils/100 WBC (Bld) 3.1 % Normal 0.9-7.0 [facility] Comment on above: Performed By: #### C BC #### [facility] [address] [place] [address] Dr. Nidhi Dawn Erythrocyte distribution width (RBC) [Ratio] 13.6 % Normal 11.0-15.0 [facility] Comment on above: Performed By: #### C BC #### [facility] [address] [place] [address] Dr. Nidhi Dawn Hematocrit (Bld) [Volume fraction] 30.8 % Critically low 36.0-48.0 [facility] Comment on above: Performed By: #### C BC #### [facility] [address] [place] [address] Dr. Nidhi Dawn Hemoglobin (Bld) [Mass/Vol] 10.3 g/dL Critically low 12.0-16.0 [facility] Comment on above: Performed By: #### C BC #### [facility] [address] [place] [address] Dr. Nidhi Dawn IG # 0.04 10e3/ul Critically high 0.00-0.03 [facility] Comment on above: Performed By: #### C BC #### [facility] [address] [place] [address] Dr. Nidhi Dawn IG % 0.6 % Critically high 0.0-0.5 [facility] Comment on above: Performed By: #### C BC #### [facility] [address] [place] [address] Dr. Nidhi Dawn LYMPH # 1.3 103/ul Normal 1.2-3.8 [facility] Comment on above: Performed By: #### C BC #### [facility] [address] [place] [address] Dr. Nidhi Dawn Lymphocytes/100 WBC (Bld) 18.3 % Critically low 20.5-60.0 [facility] Comment on above: Performed By: #### C BC #### [facility] [address] [place] [address] Dr. Nidhi Dawn MANUAL DIFF REQ NO Normal [facility] Comment on above: Performed By: #### C BC #### [facility] [address] [place] [address] Dr. Nidhi Dawn MCH (RBC) [Entitic mass] 31.0 pg Normal 26.7-34.0 [facility] Comment on above: Performed By: #### C BC #### [facility] [address] [place] [address] Dr. Nidhi Dawn MCHC (RBC) [Mass/Vol] 33.4 g/dL Normal 29.9-35.2 [facility] Comment on above: Performed By: #### C BC #### [facility] [address] [place] [address] Dr. Nidhi Dawn MCV (RBC) [Entitic vol] 92.8 fL Normal 81.0-99.0 [facility] Comment on above: Performed By: #### C BC #### [facility] [address] [place] [address] Dr. Nidhi Dawn MONO # 1.0 103/ul Critically high 0.3-0.8 [facility] Comment on above: Performed By: #### C BC #### [facility] [address] [place] [address] Dr. Nidhi Dawn Monocytes/100 WBC (Bld) 13.7 % Critically high 1.7-12.0 [facility] [facility] Comment on above: Performed By: #### C BC #### [facility] [address] [place] [address] Dr. Nidhi Dawn NEUT # 4.5 103/ul Normal 1.4-6.5 [facility] Comment on above: Performed By: #### C BC #### [facility] [address] [place] [address] Dr. Nidhi Dawn Neutrophils/100 WBC (Bld) 63.9 % Normal 43.0-75.0 [facility] Comment on above: Performed By: #### C BC #### [facility] [address] [place] [address] Dr. Nidhi Dawn Platelet mean volume (Bld) [Entitic vol] 9.6 fL Normal 9.5-13.5 [facility] Comment on above: Performed By: #### C BC #### [facility] [address] [place] [address] Dr. Nidhi Dawn PLT 228 103/ul Normal 150-450 [facility] Comment on above: Performed By: #### C BC #### [facility] [address] [place] [address] Dr. Nidhi Dawn RBC 3.32 106/ul Critically low 4.20-5.40 [facility] Comment on above: Performed By: #### C BC #### [facility] [address] [place] [address] Dr. Nidhi Dawn WBC 7.0 103/ul Normal 4.0-11.0 [facility] Comment on above: Performed By: #### C BC #### [facility] [address] [place] [address] Dr. Nidhi Dawn CULTURE URINEon 04-04-2022 CULTURE [...] Normal [facility] Comment on above: Performed By: #### C HELENA CARCAMO #### [facility] [address] [place] [address] Dr. Nidhi Dawn PROF CHEM 8 (BAS METB)on Anion gap [Moles/Vol] 8.8 mmol/L Normal [facility] Comment on above: Performed By: #### C HELENA CARCAMO #### [facility] [address] [place] [address] Dr. Nidhi Dawn Calcium [Mass/Vol] 8.7 mg/dL Normal 8.5-10.1 [facility] Comment on above: Performed By: #### C HELENA CARCAMO #### [facility] [address] [place] [address] Dr. Nidhi Dawn Chloride [Moles/Vol] 101 mmol/L Normal 98-107 [facility] Comment on above: Performed By: #### C HELENA CARCAMO #### [facility] [address] [place] [address] Dr. Nidhi Dawn CO2 [Moles/Vol] 29.6 mmol/L Normal 21.0-32.0 [facility] Comment on above: Performed By: #### C HELENA CARCAMO #### [facility] [address] [place] [address] Dr. Nidhi Dawn Creatinine [Mass/Vol] 0.56 mg/dL Normal 0.55-1.02 [facility] Comment on above: Performed By: #### C HELENA CARCAMO #### [facility] [address] [place] [address] Dr. Nidhi Dawn EGFR-AF SWISS >60 Normal >=60 [facility] Comment on above: Performed By: #### C HELENA CARCAMO #### [facility] [address] [place] [address] Dr. Nidhi Dawn EGFR-NON AF SWISS >60 Normal >=60 [facility] Comment on above: Performed By: #### C HELENA CARCAMO #### [facility] [address] [address] [address] Nidhi Dawn Glucose [Mass/Vol] 106 mg/dL Normal 74-106 [facility] Comment on above: Performed By: #### C HELENA CARCAMO #### [facility] [address] [place] [address] Dr. Nidhi Dawn Potassium [Moles/Vol] 3.4 mmol/L Critically low 3.5-5.1 [facility] Comment on above: Performed By: #### C HELENA CARACMO #### [facility] [address] [address] [address] Nidhi Dawn Sodium [Moles/Vol] 136 mmol/L Normal 136-145 [facility] Comment on above: Performed By: #### C HELENA CARCAMO #### [facility] [address] [place] [address] Dr. Nidhi Dawn Urea nitrogen [Mass/Vol] 10.0 mg/dL Normal 7.0-18.0 [facility] Comment on above: Performed By: #### C HELENA CARCAMO #### [facility] [address] [place] [address] Dr. Nidhi Dawn Urea nitrogen/Creatinine [Mass ratio] 17.9 mg/mg Normal [facility] Comment on above: Performed By: #### C HELENA CARCAMO #### [facility] [address] [place] [address] Dr. Nidhi Dawn CBC AUTO DIFFon 04-03-2022 BASO # 0.0 103/ul Normal 0.0-0.1 [facility] Comment on above: Performed By: #### C BC #### [facility] [address] [place] [address] Dr. Nidhi Dawn Basophils/100 WBC (Bld) 0.4 % Normal 0.2-2.0 [facility] Comment on above: Performed By: #### C BC #### [facility] [address] [place] [address] Dr. Nidhi Dawn EO # 0.1 103/ul Normal 0.0-0.7 [facility] Comment on above: Performed By: #### C BC #### [facility] [address] [place] [address] Dr. Nidhi Dawn Eosinophils/100 WBC (Bld) 1.0 % Normal 0.9-7.0 [facility] Comment on above: Performed By: #### C BC #### [facility] [address] [place] [address] Dr. Nidhi Dawn Erythrocyte distribution width (RBC) [Ratio] 13.6 % Normal 11.0-15.0 [facility] Comment on above: Performed By: #### C BC #### [facility] [address] [place] [address] Dr. Nidhi aDwn Hematocrit (Bld) [Volume fraction] 28.4 % Critically low 36.0-48.0 [facility] Comment on above: Performed By: #### C BC #### [facility] [address] [place] [address] Dr. Nidhi Dawn Hemoglobin (Bld) [Mass/Vol] 9.2 g/dL Critically low 12.0-16.0 [facility] Comment on above: Performed By: #### C BC #### [facility] [address] [place] [address] Dr. Nidhi Dawn IG # 0.04 10e3/ul Critically high 0.00-0.03 [facility] Comment on above: Performed By: #### C BC #### [facility] [address] [place] [address] Dr. Nidhi Dawn IG % 0.5 % Normal 0.0-0.5 [facility] Comment on above: Performed By: #### C BC #### [facility] [address] [place] [address] Dr. Nidhi Dawn LYMPH # 1.1 103/ul Critically low 1.2-3.8 [facility] Comment on above: Performed By: #### C BC #### [facility] [address] [place] [address] Dr. Nidhi Dawn Lymphocytes/100 WBC (Bld) 13.6 % Critically low 20.5-60.0 [facility] Comment on above: Performed By: #### C BC #### [facility] [address] [place] [address] Dr. Nidhi Dawn MANUAL DIFF REQ NO Normal [facility] Comment on above: Performed By: #### C BC #### [facility] [address] [place] [address] Dr. Nidhi Dawn MCH (RBC) [Entitic mass] 30.0 pg Normal 26.7-34.0 [facility] Comment on above: Performed By: #### C BC #### [facility] [address] [place] [address] Dr. Nidhi Dawn MCHC (RBC) [Mass/Vol] 32.4 g/dL Normal 29.9-35.2 [facility] Comment on above: Performed By: #### C BC #### [facility] [address] [place] [address] Dr. Nidhi Dawn MCV (RBC) [Entitic vol] 92.5 fL Normal 81.0-99.0 [facility] Comment on above: Performed By: #### C BC #### [facility] [address] [place] [address] Dr. Nidhi Dawn MONO # 0.9 103/ul Critically high 0.3-0.8 [facility] Comment on above: Performed By: #### C BC #### [facility] [address] [place] [address] Dr. Nidhi Dawn Monocytes/100 WBC (Bld) 12.1 % Critically high 1.7-12.0 [facility] Comment on above: Performed By: #### C BC #### [facility] [address] [place] [address] Dr. Nidhi Dawn NEUT # 5.7 103/ul Normal 1.4-6.5 [facility] Comment on above: Performed By: #### C BC #### [facility] [address] [place] [address] Dr. Nidhi Dawn Neutrophils/100 WBC (Bld) 72.4 % Normal 43.0-75.0 [facility] Comment on above: Performed By: #### C BC #### [facility] [address] [place] [address] Dr. Nidhi Dawn Platelet mean volume (Bld) [Entitic vol] 10.1 fL Normal 9.5-13.5 [facility] Comment on above: Performed By: #### C BC #### [facility] [address] [place] [address] Dr. Nidhi Dawn PLT 174 103/ul Normal 150-450 [facility] Comment on above: Performed By: #### C BC #### [facility] [address] [place] [address] Dr. Nidhi Dawn RBC 3.07 106/ul Critically low 4.20-5.40 [facility] Comment on above: Performed By: #### C BC #### [facility] [address] [place] [address] Dr. Nidhi Dawn WBC 7.8 103/ul Normal 4.0-11.0 [facility] Comment on above: Performed By: #### C BC #### [facility] [address] [place] [address] Dr. Nidhi Dawn PROF CHEM 8 (BAS METB)on Anion gap [Moles/Vol] 11.2 mmol/L Normal [facility] Comment on above: Performed By: #### B MP #### [facility] [address] [place] [address] Dr. Nidhi Dawn Calcium [Mass/Vol] 8.4 mg/dL Critically low 8.5-10.1 [facility] Comment on above: Performed By: #### B MP #### [facility] [address] [place] [address] Dr. Nidhi Dawn Chloride [Moles/Vol] 100 mmol/L Normal 98-107 [facility] Comment on above: Performed By: #### B MP #### [facility] [address] [address] [address] Nidhi Dawn CO2 [Moles/Vol] 27.4 mmol/L Normal 21.0-32.0 [facility] Comment on above: Performed By: #### B MP #### [facility] [address] [address] [address] Nidhi Dawn Creatinine [Mass/Vol] 0.56 mg/dL Normal 0.55-1.02 [facility] Comment on above: Performed By: #### B MP #### [facility] [address] [place] [address] Dr. Nidhi Dawn EGFR-AF SWISS >60 Normal >=60 [facility] Comment on above: Performed By: #### B MP #### [facility] [address] [place] [address] Dr. Nidhi Dawn EGFR-NON AF SWISS >60 Normal >=60 [facility] Comment on above: Performed By: #### B MP #### [facility] [address] [address] [address] Nidhi Dawn Glucose [Mass/Vol] 113 mg/dL Critically high 74-106 [facility] Comment on above: Performed By: #### B MP #### [facility] [address] [place] [address] Dr. Nidhi Dawn Potassium [Moles/Vol] 3.6 mmol/L Normal 3.5-5.1 [facility] Comment on above: Performed By: #### B MP #### [facility] [address] [address] [address] Nidhi Dawn Sodium [Moles/Vol] 135 mmol/L Critically low 136-145 [facility] Comment on above: Performed By: #### B MP #### [facility] [address] [address] [address] Nidhi Dawn Urea nitrogen [Mass/Vol] 14.0 mg/dL Normal 7.0-18.0 [facility] Comment on above: Performed By: #### B MP #### [facility] [address] [address] [address] Nidhi Dawn Urea nitrogen/Creatinine [Mass ratio] 25.0 mg/mg Normal [facility] Comment on above: Performed By: #### B MP #### [facility] [address] [address] [address] Nidhi Dawn CBC AUTO DIFFon 04-02-2022 BASO # 0.0 103/ul Normal 0.0-0.1 [facility] Comment on above: Performed By: #### C BC #### [facility] [address] [place] [address] Dr. Nidhi Dawn Basophils/100 WBC (Bld) 0.3 % Normal 0.2-2.0 [facility] Comment on above: Performed By: #### C BC #### [facility] [address] [place] [address] Dr. Nidhi Dawn EO # 0.1 103/ul Normal 0.0-0.7 [facility] Comment on above: Performed By: #### C BC #### [facility] [address] [place] [address] Dr. Nidhi Dawn Eosinophils/100 WBC (Bld) 0.8 % Critically low 0.9-7.0 [facility] Comment on above: Performed By: #### C BC #### [facility] [address] [place] [address] Dr. Nidhi Dawn Erythrocyte distribution width (RBC) [Ratio] 13.8 % Normal 11.0-15.0 [facility] Comment on above: Performed By: #### C BC #### [facility] [address] [place] [address] Dr. Nidhi Dawn Hematocrit (Bld) [Volume fraction] 30.1 % Critically low 36.0-48.0 [facility] Comment on above: Performed By: #### C BC #### [facility] [address] [place] [address] Dr. Nidhi Dawn Hemoglobin (Bld) [Mass/Vol] 10.1 g/dL Critically low 12.0-16.0 [facility] Comment on above: Performed By: #### C BC #### [facility] [address] [place] [address] Dr. Nidhi Dawn IG # 0.03 10e3/ul Normal 0.00-0.03 [facility] Comment on above: Performed By: #### C BC #### [facility] [address] [place] [address] Dr. Nidhi Dawn IG % 0.3 % Normal 0.0-0.5 [facility] Comment on above: Performed By: #### C BC #### [facility] [address] [place] [address] Dr. Nidhi Dawn LYMPH # 1.0 103/ul Critically low 1.2-3.8 [facility] Comment on above: Performed By: #### C BC #### [facility] [address] [place] [address] Dr. Nidhi Dawn Lymphocytes/100 WBC (Bld) 10.6 % Critically low 20.5-60.0 [facility] Comment on above: Performed By: #### C BC #### [facility] [address] [place] [address] Dr. Nidhi Dawn MANUAL DIFF REQ NO Normal [facility] Comment on above: Performed By: #### C BC #### [facility] [address] [place] [address] Dr. Nidhi Dawn MCH (RBC) [Entitic mass] 30.7 pg Normal 26.7-34.0 [facility] Comment on above: Performed By: #### C BC #### [facility] [address] [place] [address] Dr. Nidhi Dawn MCHC (RBC) [Mass/Vol] 33.6 g/dL Normal 29.9-35.2 [facility] Comment on above: Performed By: #### C BC #### [facility] [address] [place] [address] Dr. Nidhi Dawn MCV (RBC) [Entitic vol] 91.5 fL Normal 81.0-99.0 [facility] Comment on above: Performed By: #### C BC #### [facility] [address] [place] [address] Dr. Nidhi Dawn MONO # 1.0 103/ul Critically high 0.3-0.8 [facility] Comment on above: Performed By: #### C BC #### [facility] [address] [place] [address] Dr. Nidhi Dawn Monocytes/100 WBC (Bld) 10.3 % Normal 1.7-12.0 [facility] Comment on above: Performed By: #### C BC #### [facility] [address] [place] [address] Dr. Nidhi Dawn NEUT # 7.4 103/ul Critically high 1.4-6.5 [facility] Comment on above: Performed By: #### C BC #### [facility] [address] [place] [address] Dr. Nidhi Dawn Neutrophils/100 WBC (Bld) 77.7 % Critically high 43.0-75.0 [facility] Comment on above: Performed By: #### C BC #### [facility] [address] [place] [address] Dr. Nidhi Dawn Platelet mean volume (Bld) [Entitic vol] 10.0 fL Normal 9.5-13.5 [facility] Comment on above: Performed By: #### C BC #### [facility] [address] [place] [address] Dr. Nidhi Dawn PLT 175 103/ul Normal 150-450 [facility] Comment on above: Performed By: #### C BC #### [facility] [address] [place] [address] Dr. Nidhi Dawn RBC 3.29 106/ul Critically low 4.20-5.40 [facility] Comment on above: Performed By: #### C BC #### [facility] [address] [place] [address] Dr. Nidhi Dawn WBC 9.5 103/ul Normal 4.0-11.0 [facility] Comment on above: Performed By: #### C BC #### [facility] [address] [address] [address] Nidhi HARDIN URINE PROFILEon 2 Bilirubin Ql (U) Negative Normal NEGATIVE [facility] Comment on above: Performed By: #### C MP, CMADM #### [facility] [address] [place] [address] Dr. Nidhi Dawn Clarity (U) CLEAR Normal CLEAR [facility] Comment on above: Performed By: #### C MP, CMADM #### [facility] [address] [address] [address] Nidhi Dawn Color (U) YELLOW Normal YELLOW [facility] Comment on above: Performed By: #### C MP, CMADM #### [facility] [address] [place] [address] Dr. Nidhi TERRAZAS A micrscopic examina tion will be performed if indicated. Normal [facility] Comment on above: Performed By: #### C MP, CMADM #### [facility] [address] [place] [address] Dr. Nidhi Dawn Glucose Ql (U) Negative Normal NEGATIVE [facility] Comment on above: Performed By: #### C DONA, CMADM #### [facility] [address] [place] [address] Dr. Nidhi Dawn Hemoglobin Ql (U) MODERATE Abnormal NEGATIVE [facility] Comment on above: Performed By: #### C MP, CMADM #### [facility] [address] [address] [address] Nidhi Dawn Ketones Ql (U) TRACE Abnormal NEGATIVE [facility] Comment on above: Performed By: #### C MP, CMADM #### [facility] [address] [address] [address] Nidhi Dawn LEUKOCYTES MODERATE Abnormal NEGATIVE [facility] Comment on above: Performed By: #### C MP, CMADM #### [facility] [address] [place] [address] Dr. Nidhi Dawn Nitrite Ql (U) Positive Abnormal NEGATIVE [facility] Comment on above: Performed By: #### C MP, CMADM #### [facility] [address] [place] [address] Dr. Nidhi Dawn pH (U) [pH] Abnormal 5-9 [facility] Comment on above: Performed By: #### C DONA, LEONCIODM #### [facility] [address] [place] [address] Dr. Nidhi Dawn Protein (U) [Mass/Vol] 100 mg/dL Abnormal NEGAT GRIFFIN/ TRACE [facility] Comment on above: Performed By: #### C DONA, LEONCIODM #### [facility] [address] [place] [address] Dr. Nidhi Dawn SPEC GRAVITY <=1.005 Abnormal 1.005-<=1.0 25 [facility] Comment on above: Performed By: #### C HELENA CARCAMO #### [facility] [address] [place] [address] Dr. Nidhi Dawn UR MICRO IND INDICATED Normal [facility] Comment on above: Performed By: #### C DONA, HELENA #### [facility] [address] [place] [address] Dr. Nidhi Dawn Urobilinogen Qn (U) 1.0 {Lawrence'U}/dL Normal 0.2 - 1. 0 [facility] Comment on above: Performed By: #### C HELENA CARCAMO #### [facility] [address] [place] [address] Dr. Nidhi Dawn FREE T3on 04-02-2022 FREE T3 1.84 pg/mlL Critically low 2.18-3.98 [facility] Comment on above: Performed By: #### C BC #### [facility] [address] [place] [address] Dr. Nidhi Dawn PROF CHEM 8 (BAS METB)on Anion gap [Moles/Vol] 10.9 mmol/L Normal [facility] Comment on above: Performed By: #### C BC #### [facility] [address] [place] [address] Dr. Nidhi Dawn Calcium [Mass/Vol] 8.6 mg/dL Normal 8.5-10.1 [facility] Comment on above: Performed By: #### C BC #### [facility] [address] [address] [address] Nidhi Dawn Chloride [Moles/Vol] 102 mmol/L Normal 98-107 [facility] Comment on above: Performed By: #### C BC #### [facility] [address] [address] [address] Nidhi Dawn CO2 [Moles/Vol] 24.9 mmol/L Normal 21.0-32.0 [facility] Comment on above: Performed By: #### C BC #### [facility] [address] [address] [address] Nidhi Dawn Creatinine [Mass/Vol] 0.42 mg/dL Critically low 0.55-1.02 [facility] Comment on above: Performed By: #### C BC #### [facility] [address] [place] [address] Dr. Nidhi Dawn EGFR-AF SWISS >60 Normal >=60 [facility] Comment on above: Performed By: #### C BC #### [facility] [address] [place] [address] Dr. Nidhi Dawn EGFR-NON AF SWISS >60 Normal >=60 [facility] Comment on above: Performed By: #### C BC #### [facility] [address] [place] [address] Dr. Nidhi Dawn Glucose [Mass/Vol] 103 mg/dL Normal 74-106 [facility] Comment on above: Performed By: #### C BC #### [facility] [address] [place] [address] Dr. Nidhi Dawn Potassium [Moles/Vol] 3.8 mmol/L Normal 3.5-5.1 [facility] Comment on above: Performed By: #### C BC #### [facility] [address] [place] [address] Dr. Nidhi Dawn Sodium [Moles/Vol] 134 mmol/L Critically low 136-145 Th [facility] Comment on above: Performed By: #### C BC #### [facility] [address] [place] [address] Dr. Nidhi Dawn Urea nitrogen [Mass/Vol] 14.0 mg/dL Normal 7.0-18.0 [facility] Comment on above: Performed By: #### C BC #### [facility] [address] [place] [address] Dr. Nidhi Dawn Urea nitrogen/Creatinine [Mass ratio] 33.3 mg/mg Normal [facility] Comment on above: Performed By: #### C BC #### [facility] [address] [place] [address] Dr. Nidhi Dawn URINE MICROSCOPIC ONLYon BACTERIA MODERATE Abnormal NONE SEEN [facility] Comment on above: Performed By: #### C MP, CMADM #### [facility] [address] [place] [address] Dr. Nidhi Dawn Bacteria identified Cx Nom (U) INDICATED Normal [facility] Comment on above: Performed By: #### C MP, CMADM #### [facility] [address] [place] [address] Dr. Nidhi Dawn CAST NONE SEEN Normal NONE SEEN [facility] Comment on above: Performed By: #### C MP, CMADM #### [facility] [address] [place] [address] Dr. Nidhi Dawn Crystals LM Nom (Urine sed) NONE SEEN Normal NONE SEEN [facility] Comment on above: Performed By: #### C MP, CMADM #### [facility] [address] [place] [address] Dr. Nidhi Dawn Epithelial cells LM Ql (Urine sed) RARE Normal NONE SEEN /RARE [facility] Comment on above: Performed By: #### C MP, CMADM #### [facility] [address] [place] [address] Dr. Nidhi Dawn MUCOUS TRACE Abnormal NONE SEEN [facility] Comment on above: Performed By: #### C MP, CMADM #### [facility] [address] [place] [address] Dr. Nidhi Dawn RBC 5-10 Abnormal 0-2 [facility] Comment on above: Performed By: #### C MP, CMADM #### [facility] [address] [address] [address] Nidhi Dawn WBC 10-20 Abnormal NONE SEEN [facility] Comment on above: Performed By: #### C MP, CMADM #### [facility] [address] [place] [address] Dr. Nidhi Dawn CBC AUTO DIFFon 04-01-2022 BASO # 0.0 103/ul Normal 0.0-0.1 [facility] Comment on above: Performed By: #### C BC #### [facility] [address] [place] [address] Dr. Nidhi Dawn Basophils/100 WBC (Bld) 0.1 % Critically low 0.2-2.0 [facility] Comment on above: Performed By: #### C BC #### [facility] [address] [place] [address] Dr. Nidhi Dawn EO # 0.0 103/ul Normal 0.0-0.7 [facility] Comment on above: Performed By: #### C BC #### [facility] [address] [place] [address] Dr. Nidhi Dawn Eosinophils/100 WBC (Bld) 0.1 % Critically low 0.9-7.0 [facility] Comment on above: Performed By: #### C BC #### [facility] [address] [place] [address] Dr. Nidhi Dawn Erythrocyte distribution width (RBC) [Ratio] 13.9 % Normal 11.0-15.0 [facility] Comment on above: Performed By: #### C BC #### [facility] [address] [place] [address] Dr. Nidhi Dawn Hematocrit (Bld) [Volume fraction] 31.4 % Critically low 36.0-48.0 [facility] Comment on above: Performed By: #### C BC #### [facility] [address] [place] [address] Dr. Nidhi Dawn Hemoglobin (Bld) [Mass/Vol] 10.3 g/dL Critically low 12.0-16.0 [facility] Comment on above: Performed By: #### C BC #### [facility] [address] [place] [address] Dr. Nidhi Dawn IG # 0.03 10e3/ul Normal 0.00-0.03 [facility] Comment on above: Performed By: #### C BC #### [facility] [address] [place] [address] Dr. Nidhi Dawn IG % 0.3 % Normal 0.0-0.5 [facility] Comment on above: Performed By: #### C BC #### [facility] [address] [place] [address] Dr. Nidhi Dawn LYMPH # 1.3 103/ul Normal 1.2-3.8 [facility] Comment on above: Performed By: #### C BC #### [facility] [address] [place] [address] Dr. Nidhi Dawn Lymphocytes/100 WBC (Bld) 13.5 % Critically low 20.5-60.0 [facility] Comment on above: Performed By: #### C BC #### [facility] [address] [place] [address] Dr. Nidhi Dawn MANUAL DIFF REQ NO Normal [facility] Comment on above: Performed By: #### C BC #### [facility] [address] [place] [address] Dr. Nidhi Dawn MCH (RBC) [Entitic mass] 30.3 pg Normal 26.7-34.0 [facility] Comment on above: Performed By: #### C BC #### [facility] [address] [place] [address] Dr. Nidhi Dawn MCHC (RBC) [Mass/Vol] 32.8 g/dL Normal 29.9-35.2 [facility] Comment on above: Performed By: #### C BC #### [facility] [address] [place] [address] Dr. Nidhi Dawn MCV (RBC) [Entitic vol] 92.4 fL Normal 81.0-99.0 [facility] Comment on above: Performed By: #### C BC #### [facility] [address] [address] [address] Nidhi Dawn MONO # 1.1 103/ul Critically high 0.3-0.8 [facility] Comment on above: Performed By: #### C BC #### [facility] [address] [place] [address] Dr. Nidhi Dawn Monocytes/100 WBC (Bld) 11.1 % Normal 1.7-12.0 [facility] Comment on above: Performed By: #### C BC #### [facility] [address] [place] [address] Dr. Nidhi Dawn NEUT # 7.4 103/ul Critically high 1.4-6.5 [facility] Comment on above: Performed By: #### C BC #### [facility] [address] [place] [address] Dr. Nidhi Dawn Neutrophils/100 WBC (Bld) 74.9 % Normal 43.0-75.0 [facility] Comment on above: Performed By: #### C BC #### [facility] [address] [place] [address] Dr. Nidhi Dawn Platelet mean volume (Bld) [Entitic vol] 9.9 fL Normal 9.5-13.5 [facility] Comment on above: Performed By: #### C BC #### [facility] [address] [place] [address] Dr. Nidhi Dawn PLT 219 103/ul Normal 150-450 [facility] Comment on above: Performed By: #### C BC #### [facility] [address] [place] [address] Dr. Nidhi Dawn RBC 3.40 106/ul Critically low 4.20-5.40 [facility] Comment on above: Performed By: #### C BC #### [facility] [address] [place] [address] Dr. Nidhi Dawn WBC 9.9 103/ul Normal 4.0-11.0 [facility] Comment on above: Performed By: #### C BC #### [facility] [address] [place] [address] Dr. Nidhi Dawn PROF CHEM 8 (BAS METB)on Anion gap [Moles/Vol] 9.7 mmol/L Normal [facility] Comment on above: Performed By: #### B MP #### [facility] [address] [address] [address] Nidhi Dawn Calcium [Mass/Vol] 8.5 mg/dL Normal 8.5-10.1 [facility] Comment on above: Performed By: #### B MP #### [facility] [address] [address] [address] Nidhi Dawn Chloride [Moles/Vol] 102 mmol/L Normal 98-107 [facility] Comment on above: Performed By: #### B MP #### [facility] [address] [address] [address] Nidhi Dawn CO2 [Moles/Vol] 28.8 mmol/L Normal 21.0-32.0 [facility] Comment on above: Performed By: #### B MP #### [facility] [address] [address] [address] Nidhi Dawn Creatinine [Mass/Vol] 0.54 mg/dL Critically low 0.55-1.02 [facility] Comment on above: Performed By: #### B MP #### [facility] [address] [place] [address] Dr. Nidhi Dawn EGFR-AF SWISS >60 Normal >=60 [facility] Comment on above: Performed By: #### B MP #### [facility] [address] [address] [address] Nidhi Dawn EGFR-NON AF SWISS >60 Normal >=60 [facility] Comment on above: Performed By: #### B MP #### [facility] [address] [address] [address] Nidhi Dawn Glucose [Mass/Vol] 108 mg/dL Critically high 74-106 [facility] Comment on above: Performed By: #### B MP #### [facility] [address] [place] [address] Dr. Nidhi Dawn Potassium [Moles/Vol] 3.5 mmol/L Normal 3.5-5.1 [facility] Comment on above: Performed By: #### B MP #### [facility] [address] [address] [address] Nidhi Dawn Sodium [Moles/Vol] 137 mmol/L Normal 136-145 [facility] Comment on above: Performed By: #### B MP #### [facility] [address] [address] [address] Nidhi Dawn Urea nitrogen [Mass/Vol] 14.0 mg/dL Normal 7.0-18.0 [facility] Comment on above: Performed By: #### B MP #### [facility] [address] [address] [address] Nidhi Dawn Urea nitrogen/Creatinine [Mass ratio] 25.9 mg/mg Normal [facility] Comment on above: Performed By: #### B MP #### [facility] [address] [place] [address] Dr. Nidhi Dawn CARDIAC CELESTINO ADMITon 022 CK [Catalytic activity/Vol] 60 U/L Normal 26-192 [facility] Comment on above: Performed By: #### C BC #### [facility] [address] [place] [address] Dr. Nidhi Dawn CK.MB [Mass/Vol] 2.29 ng/mL Normal <=3.60 [facility] Comment on above: Performed By: #### C BC #### [facility] [address] [place] [address] Dr. Nidhi Dawn HSTROP 5.8 pg/mL Normal 4.0-51.3 [facility] Comment on above: Result Comment: CUT- OFF POINTS HAVE BEEN ESTABLISHED BASED ON THE FOURTH UNIVERSAL DEFINITIONS OF MYOCARDIAL INFARCTION. THE UPPER REFERENCE LIMIT (URL) OF TROPONIN, DEFINED THE 99TH PERCENTILE OF cTnI DISTRIBUTION IN A REFERENCE POPULATION, HAS BEEN CONFIRMED THE DECISION THRESHOLD FOR AR DIAGNOSIS. Performed By: #### C BC #### [facility] [address] [place] [address] Dr. Nidhi Dawn BOBBY 63 ng/mL Normal 9-82 [facility] Comment on above: Performed By: #### C BC #### [facility] [address] [place] [address] Dr. Nidhi Dawn CBC AUTO DIFFon 03-31-2022 BASO # 0.0 103/ul Normal 0.0-0.1 [facility] Comment on above: Performed By: #### C BC #### [facility] [address] [place] [address] Dr. Nidhi Dawn Basophils/100 WBC (Bld) 0.3 % Normal 0.2-2.0 [facility] Comment on above: Performed By: #### C BC #### [facility] [address] [place] [address] Dr. Nidhi Dawn EO # 0.0 103/ul Normal 0.0-0.7 [facility] Comment on above: Performed By: #### C BC #### [facility] [address] [place] [address] Dr. Nidhi Dawn Eosinophils/100 WBC (Bld) 0.3 % Critically low 0.9-7.0 [facility] Comment on above: Performed By: #### C BC #### [facility] [address] [place] [address] Dr. Nidhi Dawn Erythrocyte distribution width (RBC) [Ratio] 13.8 % Normal 11.0-15.0 [facility] Comment on above: Performed By: #### C BC #### [facility] [address] [place] [address] Dr. Nidhi Dawn Hematocrit (Bld) [Volume fraction] 39.3 % Normal 36.0-48.0 [facility] Comment on above: Performed By: #### C BC #### [facility] [address] [place] [address] Dr. Nidhi Dawn Hemoglobin (Bld) [Mass/Vol] 12.8 g/dL Normal 12.0-16.0 [facility] Comment on above: Performed By: #### C BC #### [facility] [address] [place] [address] Dr. Nidhi Dawn IG # 0.10 10e3/ul Critically high 0.00-0.03 [facility] Comment on above: Performed By: #### C BC #### [facility] [address] [place] [address] Dr. Nidhi Dawn IG % 0.8 % Critically high 0.0-0.5 [facility] Comment on above: Performed By: #### C BC #### [facility] [address] [place] [address] Dr. Nidhi Dawn LYMPH # 1.1 103/ul Critically low 1.2-3.8 [facility] Comment on above: Performed By: #### C BC #### [facility] [address] [place] [address] Dr. Nidhi Dawn Lymphocytes/100 WBC (Bld) 9.3 % Critically low 20.5-60.0 [facility] Comment on above: Performed By: #### C BC #### [facility] [address] [place] [address] Dr. Nidhi Dawn MANUAL DIFF REQ NO Normal [facility] Comment on above: Performed By: #### C BC #### [facility] [address] [place] [address] Dr. Nidhi Dawn MCH (RBC) [Entitic mass] 30.0 pg Normal 26.7-34.0 [facility] Comment on above: Performed By: #### C BC #### [facility] [address] [place] [address] Dr. Nidhi Dawn MCHC (RBC) [Mass/Vol] 32.6 g/dL Normal 29.9-35.2 [facility] Comment on above: Performed By: #### C BC #### [facility] [address] [place] [address] Dr. Nidhi Dawn MCV (RBC) [Entitic vol] 92.3 fL Normal 81.0-99.0 [facility] Comment on above: Performed By: #### C BC #### [facility] [address] [place] [address] Dr. Nidhi Dawn MONO # 0.8 103/ul Normal 0.3-0.8 [facility] Comment on above: Performed By: #### C BC #### [facility] [address] [place] [address] Dr. Nidhi Dawn Monocytes/100 WBC (Bld) 6.6 % Normal 1.7-12.0 [facility] Comment on above: Performed By: #### C BC #### [facility] [address] [place] [address] Dr. Nidhi Dawn NEUT # 9.8 103/ul Critically high 1.4-6.5 [facility] Comment on above: Performed By: #### C BC #### [facility] [address] [place] [address] Dr. Nidhi Dawn Neutrophils/100 WBC (Bld) 82.7 % Critically high 43.0-75.0 [facility] Comment on above: Performed By: #### C BC #### [facility] [address] [place] [address] Dr. Nidhi Dawn Platelet mean volume (Bld) [Entitic vol] 9.3 fL Critically low 9.5-13.5 [facility] Comment on above: Performed By: #### C BC #### [facility] [address] [place] [address] Dr. Nidhi Dawn PLT 284 103/ul Normal 150-450 [facility] Comment on above: Performed By: #### C BC #### [facility] [address] [place] [address] Dr. Nidhi Dawn RBC 4.26 106/ul Normal 4.20-5.40 [facility] Comment on above: Performed By: #### C BC #### [facility] [address] [place] [address] Dr. Nidhi Dawn WBC 11.8 103/ul Critically high 4.0-11.0 [facility] Comment on above: Performed By: #### C BC #### [facility] [address] [place] [address] CHEST W CONon [...] TAYLOR PENA Date: 2022-03-31 14:36 Normal [facility] CT CSPINE WO CONon [...] Normal The [facility] CT HEAD WO CONon [...] Normal The [facility] CT LSPINE WO CONon [...] Normal [facility]on SARS-CoV-2 (COVID-19) RNA COLLINS+probe Ql (Unsp spec) Not detected Normal NOT DETECTED The [facility] Comment on above: Result Comment: When [...] for this test is supported by the [employer] and Human Service's declaration that [...] longer be used). Performed By: #### [facility] #### [facility] [address] [place] [address] Dr. Nidhi Dawn PROF 14(COMP METB)on 022 Albumin [Mass/Vol] 3.7 g/dL Normal 3.4-5.0 [facility] Comment on above: Performed By: #### C BC #### [facility] [address] [place] [address] Dr. Nidhi Dawn Albumin/Globulin [Mass ratio] 1.2 {ratio} Normal [facility] Comment on above: Performed By: #### C BC #### [facility] [address] [place] [address] Dr. Nidhi Dawn ALP [Catalytic activity/Vol] 55 U/L Normal 46-116 [facility] Comment on above: Performed By: #### C BC #### [facility] [address] [place] [address] Dr. Nidhi Dawn ALT [Catalytic activity/Vol] 24 U/L Normal 14-59 [facility] Comment on above: Performed By: #### C BC #### [facility] [address] [place] [address] Dr. Nidhi Dawn Anion gap [Moles/Vol] 9.2 mmol/L Normal [facility] Comment on above: Performed By: #### C BC #### [facility] [address] [place] [address] Dr. Nidhi Dawn AST [Catalytic activity/Vol] 19 U/L Normal 15-37 [facility] Comment on above: Performed By: #### C BC #### [facility] [address] [place] [address] Dr. Nidhi Dawn Bilirubin [Mass/Vol] 0.5 mg/dL Normal 0.2-1.0 [facility] Comment on above: Performed By: #### C BC #### [facility] [address] [address] [address] Nidhi Dawn Calcium [Mass/Vol] 9.1 mg/dL Normal 8.5-10.1 [facility] Comment on above: Performed By: #### C BC #### [facility] [address] [address] [address] Nidhi Dawn Chloride [Moles/Vol] 103 mmol/L Normal 98-107 [facility] Comment on above: Performed By: #### C BC #### [facility] [address] [place] [address] Dr. Nidhi Dawn CO2 [Moles/Vol] 28.0 mmol/L Normal 21.0-32.0 [facility] Comment on above: Performed By: #### C BC #### [facility] [address] [place] [address] Dr. Nidhi Dwan Creatinine [Mass/Vol] 0.56 mg/dL Normal 0.55-1.02 [facility] Comment on above: Performed By: #### C BC #### [facility] [address] [place] [address] Dr. Nidhi Dawn EGFR-AF SWISS >60 Normal >=60 [facility] Comment on above: Performed By: #### C BC #### [facility] [address] [place] [address] Dr. Nidhi Dawn EGFR-NON AF SWISS >60 Normal >=60 [facility] Comment on above: Performed By: #### C BC #### [facility] [address] [place] [address] Dr. Nidhi Dawn Globulin (S) [Mass/Vol] 3.2 g/dL Normal [facility] Comment on above: Performed By: #### C BC #### [facility] [address] [place] [address] Dr. Nidhi Dawn Glucose [Mass/Vol] 140 mg/dL Critically high 74-106 [facility] Comment on above: Performed By: #### C BC #### [facility] [address] [address] [address] Nidhi Dawn Potassium [Moles/Vol] 3.2 mmol/L Critically low 3.5-5.1 [facility] Comment on above: Performed By: #### C BC #### [facility] [address] [place] [address] Dr. Nidhi Dawn Protein [Mass/Vol] 6.9 g/dL Normal 6.4-8.2 [facility] Comment on above: Performed By: #### C BC #### [facility] [address] [place] [address] Dr. Nidhi Dawn Sodium [Moles/Vol] 137 mmol/L Normal 136-145 [facility] Comment on above: Performed By: #### C BC #### [facility] [address] [place] [address] Dr. Nidhi Dawn Urea nitrogen [Mass/Vol] 13.0 mg/dL Normal 7.0-18.0 [facility] Comment on above: Performed By: #### C BC #### [facility] [address] [place] [address] Dr. Nidhi Dawn Urea nitrogen/Creatinine [Mass ratio] 23.2 mg/mg Normal [facility] Comment on above: Performed By: #### C BC #### [facility] [address] [place] [address] Dr. Nidhi Dawn PROTIMEon 03-31-2022 INR Coag (PPP) [Relative time] 1.01 {INR} Normal [facility] Comment on above: Performed By: #### C BC #### [facility] [address] [place] [address] Dr. Nidhi Dawn INR GUIDELINES SEE BELOW Normal [facility] Comment on above: Result Comment: BASSEM RED INR: 2.0 - 3.0 CONDITIONS NOT LISTED BELOW 2.5 - 3.5 FOR PROSTHETIC HEART VALVE REPLACEMENT 2.5 - 3.5 RECURRENT THROMBOSIS Performed By: #### C BC #### [facility] [address] [place] [address] Dr. Nidhi Dawn PT Coag (PPP) [Time] 10.9 s Normal 9.0-11.6 [facility] Comment on above: Performed By: #### C BC #### [facility] [address] [address] [address] Nidhi Dawn PTTon 03-31-2022 aPTT Coag (Bld) [Time] 25.7 s Normal 22.3-36.2 Th e [facility] Comment on above: Performed By: #### C BC #### [facility] [address] [address] [address] Nidhi Dawn TSHon 03-31-2022 TSH 3.763 uIU/mL Critically high 0.358-3.740 [facility] Comment on above: Performed By: #### C BC #### [facility] [address] [address] [address] Nidhi Dawn XR HIP RT 2 [...] Normal [facility] XR HIP RT 2 [...] by: KANDIS KENNY Date: 2021-12-14 21:43 Normal [facility] CT PELVIS WO CONon 2 CT [...] by: ISRAEL JUÁREZ Date: 2021-12-13 18:51 Normal [facility] Vital Signs Date Time Vital Sign Value Performing Clinician Facility 10-25-2023 11:40-0400 Body height 149.9 cm Ashley Olvera [employer] Work Phone: [facility] 10-25-2023 11:40-0400 Body mass index (BMI) [Ratio] 19.09 kg/m2 Ashley Olveraseth [employer] Work Phone: [facility] 10-25-2023 11:40-0400 Body temperature 97.39 [degF] Ashley Olvera [employer]NB[employer] Work Phone: [facility] 10-25-2023 11:40-0400 Body weight 42.87 kg Ashley Olvera [employer] Work Phone: [facility] 10-25-2023 11:40-0400 Diastolic blood pressure 62 mm[Hg] Ashley Olvera [employer] Work Phone: [facility] 10-25-2023 11:40-0400 Heart rate 57 /min Ashley Olvera [employer] Work Phone: [facility] 10-25-2023 11:40-0400 Respiratory rate 18 /min Ashley Olvera [employer] Work Phone: [facility] 10-25-2023 11:40-0400 SaO2% (BldA) [Mass fraction] 99 % Ashley Olvera [employer] Work Phone: [facility] 10-25-2023 11:40-0400 Systolic blood pressure 120 mm[Hg] Ashley Olvera [employer] Work Phone: [facility] 10-09-2023 11:45-0400 Body height 149.9 cm Ashley Olvera [employer] Work Phone: [facility] 10-09-2023 11:45-0400 Body mass index (BMI) [Ratio] 18.46 kg/m2 Ashley Olvera [employer] Work Phone: [facility] [facility] 10-09-2023 11:45-0400 Body temperature 97.3 [degF] Ashley Olvera APRN-ENGRAVER PICTURE Work Phone: [facility] 10-09-2023 11:45-0400 Body weight 41.46 kg Ashley Olvera APRN-ENGRAVER PICTURE Work Phone: [facility] 10-09-2023 11:45-0400 Diastolic blood pressure 60 mm[Hg] Ashley Olvera APRN-ENGRAVER PICTURE Work Phone: [facility] 10-09-2023 11:45-0400 Heart rate 70 /min Ashleyselina Olvera APRN-SARAH Work Phone: [facility] 10-09-2023 11:45-0400 Respiratory rate 22 /min Ashley ALMONTE Work Phone: [facility] 10-09-2023 11:45-0400 SaO2% (BldA) [Mass fraction] 100 % Ashley ALMONTE Work Phone: [facility] 10-09-2023 11:45-0400 Systolic blood pressure 128 mm[Hg] Ashley Olvera APRN-SARAH Work Phone: [facility] 09-27-2023 15:42-0500 Body height 149.9 cm Ashley ALMONTE Work Phone: [facility] 09-27-2023 15:42-0500 Body mass index (BMI) [Ratio] 19.79 kg/m2 Ashley ALMONTE Work Phone: [facility] 09-27-2023 15:42-0500 Body temperature 98.01 [degF] Ashley Olvera APRN-SARAH Work Phone: [facility] 09-27-2023 15:42-0500 Body weight 44.45 kg Ashley ALMONTE Work Phone: [facility] 09-27-2023 15:42-0500 Diastolic blood pressure 80 mm[Hg] Ashley Olvera APRN-SARAH Work Phone: [facility] 09-27-2023 15:42-0500 Heart rate 59 /min Ashley Olvera APRN-SARAH Work Phone: [facility] 09-27-2023 15:42-0500 Respiratory rate 18 /min Ashley Olvera APRN-SARAH Work Phone: [facility] 09-27-2023 15:42-0500 SaO2% (BldA) [Mass fraction] 93 % Ashley Olvera CABLEMAN-ENGRAVER PICTURE Work Phone: [facility] 09-27-2023 15:42-0500 Systolic blood pressure 122 mm[Hg] Ashley Olvera CABLEMAN-ENGRAVER PICTURE Work Phone: [facility] 10-03-2022 16:00-0400 Body temperature 97.6 [degF] B[employer]BALL CLUB MANAGER-C Ashley Olvera Work Phone: [facility] 10-03-2022 16:00-0400 Diastolic blood pressure 79 mm[Hg] BASEBALL CLUB MANAGER-C Ashley Olvera Work Phone: [facility] 10-03-2022 16:00-0400 Heart rate 77 /min BASEBALL CLUB MANAGER-C Ashley Olvera Work Phone: [facility] 10-03-2022 16:00-0400 Respiratory rate 16 /min BASEBALL CLUB MANAGER-C Ashley Olvera Work Phone: [facility] 10-03-2022 16:00-0400 SaO2% (BldA) [Mass fraction] 100 % BASEBALL CLUB MANAGER-C Ashley Olvera Work Phone: [facility] 10-03-2022 16:00-0400 Systolic blood pressure 156 mm[Hg] BASEBALL CLUB MANAGER-C Ashley Olvera Work Phone: [facility] 10-02-2022 20:00-0400 Inhaled oxygen flow rate 2 L/min BASEBALL CLUB MANAGER-C Ashley Olvera Work Phone: [facility] 09-29-2022 06:00-0500 Body weight 49 kg BASEBALL CLUB MANAGER-C Ashley Olvera Work Phone: [facility] 09-28-2022 16:10-0500 Body height 147.32 cm BASEBALL CLUB MANAGER-C Ashley Olvera Work Phone: [facility] 09-28-2022 16:10-0500 Body mass index (BMI) [Ratio] 18.6 kg/m2 BASEBALL CLUB MANAGER-C Ashley Olvera Work Phone: [facility] 12-13-2021 16:30-0400 Body height 152.4 cm Rylie Galvan Other [facility] Other 12-13-2021 16:30-0400 Body mass index (BMI) [Ratio] 19.33 kg/m2 Rylie Mandy Other [facility] Other 12-13-2021 16:30-0400 Body temperature 98 [degF] Rylie Mandy Other [facility] Other 12-13-2021 16:30-0400 Body weight 44.91 kg Rylie Galvan Other [facility] Other 12-13-2021 16:30-0400 Diastolic blood pressure 83 mm[Hg] Rylie Brooksmond Other [facility] Other 12-13-2021 16:30-0400 Respiratory rate 18 /min Rylie Galvan Other [facility] Other 12-13-2021 16:30-0400 SaO2% (BldA) [Mass fraction] 97 % Rylie Brooksmond Other [facility] Other 12-13-2021 16:30-0400 Systolic blood pressure 130 mm[Hg] Rylie Mandy Other [facility] Other Encounters Encounter Date Encounter Type Care Provider Facility Start: 11-21-2023 End: 11-21-2023 ambulatory ASHLEY OLVERA [facility] Start: 11-07-2023 End: 11-07-2023 ambulatory ITALO DONOHUE Not Available Start: 10-25-2023 End: 10-25-2023 ambulatory [facility] Start: 10-25-2023 End: 10-25-2023 Office outpatient visit 15 minutes Ashley Olvera CABLEMAN-ENGRAVER PICTURE Work Phone: [facility] - [facility] Comment on above: Arthritis, multiple joint involvement (Primary Dx); History of healed osteoporosis fracture; Decreased mobility and endurance Start: 10-17-2023 Orders Only Ashley ann CABLEMAN-ENGRAVER PICTURE Work Phone: [facility] - [facility] Comment on above: Arthritis, multiple joint involvement (Primary Dx); Benign essential HTN Start: 10-09-2023 End: 10-09-2023 Refill Justus Gastelum CMA [facility] Physician s Internal Medicine - Family Medicine Comment on above: Arthritis, multiple joint involvement Start: 10-09-2023 End: 10-09-2023 Transitional care manage srvc 7 day discharge Ashley Olvera CABLEMAN-ENGRAVER PICTURE Work Phone: [facility] - [facility] Comment on above: Pneumonia of left lo wer lobe due to infectious organism (Primary Dx); Benign essential HTN; Arthritis, multiple joint involvement; Rash and nonspecific skin eruption Start: 09-27-2023 End: 09-27-2023 ambulatory [facility] [place] Start: 09-27-2023 End: 09-27-2023 Office outpatient visit 15 minutes Ashley Olvera CABLEMAN-ENGRAVER PICTURE Work Phone: [facility] - [facility] Comment on above: Rash and nonspecific skin eruption (Primary Dx); 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); Current moderate episode of major depressive disorder without prior episode (CMS-HCC); Malignant neoplasm of colon, unspecified part of colon (CMS-HCC) Start: 07-13-2023 End: 07-13-2023 ambulatory [facility] Start: 07-13-2023 Encounter for genera l adult medical examination without abnormal findings [facility] [place] Start: 10-25-2022 End: 10-25-2022 ambulatory Leighton Valente Other [facility] Other Start: 10-25-2022 Telephone encounter Leighton Valente [facility] Start: 10-14-2022 End: 10-14-2022 ambulatory ASHLEY OLVERA Facility:[facility] Start: 09-28-2022 End: 10-03-2022 Evaluation and management of inpatient Leighton Valente Facility:[facility] Start: 09-28-2022 End: 10-03-2022 Evaluation and management of inpatient B[employer]BALL CLUB MANAGER-C Ashley Olvera Work Phone: [facility] Work Phone: Start: 09-27-2022 End: 09-28-2022 ambulatory JACIEL STEVE . Facility: Start: 05-02-2022 End: 05-02-2022 ambulatory ADELE NÚÑEZ . Facility:[facility] Start: 04-13-2022 Patient encounter procedure Storm Russell APRN.NAVAL AIRCREWMAN TACTICAL HELICOPTER Work Phone: [facility] Start: 04-13-2022 Progress Note Storm GARCIA RN.NAVAL AIRCREWMAN TACTICAL HELICOPTER Work Phone: [facility] Start: 04-08-2022 Patient encounter procedure Storm Russell APRN.NAVAL AIRCREWMAN TACTICAL HELICOPTER Work Phone: [facility] Start: 04-08-2022 Progress Note Storm GARCIA RN.NAVAL AIRCREWMAN TACTICAL HELICOPTER Work Phone: [facility] Start: 04-05-2022 Patient encounter procedure Itri A Fahad Work Phone: [facility] Start: 04-05-2022 Progress Note Itri A Fahad Work Phone: [facility] Start: 03-31-2022 End: 04-04-2022 Evaluation and management of inpatient DR GAB FONSECA . Facility:[facility] Start: 12-13-2021 End: 12-13-[address] BONIFACIO LEMOS . [facility] Other Start: 12-13-2021 Office outpatient vi sit 15 minutes Rylie Galvan [facility] Procedures Date Procedure Procedure Detail Performing Clinician Start: 10-25-2023 Adult depression screening assessment Ashley Olvera CABLEMAN-ENGRAVER PICTURE Work Phone: Start: 10-09-2023 Adult depression screening assessment Ashley Olvera CABLEMAN-ENGRAVER PICTURE Work Phone: Start: 09-27-2023 Follow-up visit Follow-up ASHLEY OLVERA Start: 09-27-2023 Adult depression screening assessment Ashley Olvera CABLEMAN-ENGRAVER PICTURE Work Phone: Start: 10-03-2022 Plain X-ray of left hip BASEBALL CLUB MANAGER-C Ashley Olvera Work Phone: Start: 09-28-2022 Plain X-ray of left hip BASEBALL CLUB MANAGER-C Ashley Olvera Work Phone: Start: 09-28-2022 Open reduction with internal fixation B[employer]BALL CLUB MANAGER-C Ashley Olvera Work Phone: Start: 09-28-2022 Plain X-ray of left femur BASEBALL CLUB MANAGER-C Ashley Olvera Work Phone: Start: 09-28-2022 Plain X-ray of left hip BASEBALL CLUB MANAGER-C Ashley Olvera Work Phone: Plan of Treatment Date Care Activity Detail Author Start: 06-14-2030 DTaP,Tdap and Td Vaccines (3 - Td or Tdap) DTaP,Tdap and Td Vaccines (3 - Td or Tdap) [facility] Start: 10-24-2024 Adult BMI Screening Adult BMI Screening [facility] Start: 10-24-2024 Depression Screening Depression Screening [facility] Start: 10-24-2024 Fall Risk Screening Fall Risk Screening [facility] Start: 10-24-2024 Tobacco Screening Tobacco Screening [facility] Start: 10-08-2024 Adult BMI Screening Adult BMI Screening [facility] Start: 10-08-2024 Depression Screening Depression Screening [facility] Start: 10-08-2024 Fall Risk Screening Fall Risk Screening [facility] Start: 10-08-2024 Tobacco Screening Tobacco Screening [facility] Start: 09-27-2024 Tobacco Screening Tobacco Screening [facility] Start: 09-26-2024 Adult BMI Screening Adult BMI Screening [facility] Start: 09-26-2024 Depression Screening Depression Screening [facility] Start: 09-26-2024 Fall Risk Screening Fall Risk Screening [facility] Start: 07-13-2024 Medicare Annual Wellness Visit Medicare Annual Wellness Visit [facility] Start: 03-24-2024 Influenza vaccination Influenza Vaccine [facility] Start: 03-20-2024 End: 03-20-2024 Patient encounter procedure 03/20/2024 11:20 AM EDT Office Visit [facility] - [facility] Medicine [address] [place] [address] Ashley Olvera, CABLEMAN-ENGRAVER PICTURE [address] [place] [address] [facility] Start: 01-09-2024 End: 01-09-2024 Patient encounter procedure 01/09/2024 10:40 AM EDT Office Visit [facility] - [facility] Medicine [address] [place] [address] Ashley Olvera, CABLEMAN-ENGRAVER PICTURE [address] [place] [address] [facility] Start: 11-01-2023 Adult BMI Follow Up Plan Adult BMI Follow Up Plan [facility] Start: 03-24-2023 COVID-19 Vaccine () COVID-19 Vaccine ( season) [facility] Start: 10-03-2022 [facility] Start: 09-28-2022 [facility] Start: 09-28-2022 Consultation [facility] Start: 09-28-2022 Hospital admission [facility] Start: 03-24-2022 Influenza vaccination INFLUENZA (#1) [facility] Start: 07-24-2021 ADVANCE DIRECTIVE DISCUSSION ADVANCE DIRECTIVE DISCUSSION [facility] Start: 04-09-2019 DIABETES SCREEN DIABETES SCREEN [facility] Start: 2000 BONE DENSITY BONE DENSITY [facility] Start: 2000 PNEUMOCOCCAL: 65+ (1 - PCV) PNEUMOCOCCAL: 65+ (1 - PCV) [facility] Start: 1985 SHINGRIX VACCINE (1 of 2) SHINGRIX VACCINE (1 of 2) [facility] Start: 1954 Administration of varicella zoster vaccine Zoster (Shingles) Vaccine (1 of 2) [facility] Start: 1954 Urine microalbumin profile DTAP,TDAP,TD (1 - Tdap) [facility] Start: 03-10-1936 COVID-19 VACCINE (#1) COVID-19 VACCINE (#1) [facility] 25-hydroxyvitamin D2 [Mass/volume] in Serum or Plasma [facility] 25-hydroxyvitamin D3 [Mass/volume] in Serum or Plasma [facility] 25-Hydroxyvitamin D3+25-Hydroxyvitamin D2 [Mass/volume] in Serum or Plasma [facility] Patient referral [facility] Work Phone: XR Hip - left 2 Views [facility] Immunizations Immunization Date Immunization Notes Care Provider Gustabo santos 04-11-2023 Influenza Vaccine, Quadrivalent, Adjuvanted Ashley Olvera CABLEMAN-ENGRAVER PICTURE Work Phone: [facility] 04-11-2023 influenza virus vacc ine, unspecified formulation Ashley Olvera CABLEMAN-ENGRAVER PICTURE Work Phone: [facility] 05-09-2022 influenza, seasonal, injectable Ashley Olvera CABLEMAN-ENGRAVER PICTURE Work Phone: [facility] 05-09-2022 pneumococcal polysaccharide vaccine, 23 valent Ashley Olvera CABLEMAN-ENGRAVER PICTURE Work Phone: [facility] 04-21-2022 Influenza Vaccine, Quadrivalent, Adjuvanted Ashley Olvera CABLEMAN-ENGRAVER PICTURE Work Phone: [facility] 12-06-2021 COVID-19, mRNA, LNP- S, PF, 30mcg/0.3mL Dose Ashley Olvera CABLEMAN-ENGRAVER PICTURE Work Phone: [facility] 11-01-2021 COVID-19, mRNA, LNP- S, PF, 30mcg/0.3mL Dose Ashley Olvera CABLEMAN-ENGRAVER PICTURE Work Phone: [facility] 05-17-2021 Influenza, High-dose , Quadrivalent Ashley Olvera CABLEMAN-ENGRAVER PICTURE Work Phone: [facility] 06-14-2020 diphtheria, tetanus toxoids and pertussis vaccine Ashley Olvera CABLEMAN-ENGRAVER PICTURE Work Phone: [facility] 05-12-2020 Influenza, High-dose , Quadrivalent Ashley Olvera CABLEMAN-ENGRAVER PICTURE Work Phone: [facility] 05-07-2019 influenza, high dose seasonal, preservative-free Ashley Olvera CABLEMAN-ENGRAVER PICTURE Work Phone: [facility] 04-17-2019 pneumococcal polysaccharide vaccine, 23 valent Ashley Olvera CABLEMAN-ENGRAVER PICTURE Work Phone: [facility] 05-07-2018 influenza, high dose seasonal, preservative-free Ashley Olvera CABLEMAN-ENGRAVER PICTURE Work Phone: [facility] 05-09-2017 influenza, injectabl e, quadrivalent, preservative free Ashley Olvera CABLEMAN-ENGRAVER PICTURE Work Phone: [facility] 01-05-2017 pneumococcal conjuga te vaccine, 13 valent Ashley Olvera CABLEMAN-ENGRAVER PICTURE Work Phone: [facility] 01-05-2017 tetanus toxoid, redu cristino diphtheria toxoid, and acellular pertussis vaccine, adsorbed Ashley Olvera CABLEMAN-ENGRAVER PICTURE Work Phone: [facility] 05-22-2015 influenza, injectabl e, quadrivalent, preservative free Ashley Olvera CABLEMAN-ENGRAVER PICTURE Work Phone: [facility] 04-21-2014 influenza, seasonal, injectable, preservative free Ashley Olvera CABLEMAN-ENGRAVER PICTURE Work Phone: [facility] 04-17-2013 influenza virus vacc ine, whole virus Ashley Olvera CABLEMAN-ENGRAVER PICTURE Work Phone: [facility] 06-28-2012 pneumococcal vaccine , unspecified formulation Ashley Olvera CABLEMAN-ENGRAVER PICTURE Work Phone: [facility] 04-24-2012 influenza virus vacc ine, whole virus Ashley Olvera CABLEMAN-ENGRAVER PICTURE Work Phone: [facility] 04-20-2011 influenza virus vacc ine, whole virus Ashley Olvera CABLEMAN-ENGRAVER PICTURE Work Phone: [facility] 05-05-2010 influenza virus vacc ine, whole virus Ashley Olvera CABLEMAN-ENGRAVER PICTURE Work Phone: [facility] 04-29-2009 influenza virus vacc ine, whole virus Ashley Olvera CABLEMAN-ENGRAVER PICTURE Work Phone: [facility] 05-09-2007 influenza virus vacc ine, whole virus Ashley Olvera CABLEMAN-ENGRAVER PICTURE Work Phone: [facility] Payers Date Payer Category Payer Medicare [id number] 2022 Self-pay 2016 Medicare [id number] 1959 Medicare [id number] 2.1 [id number] 1959 Private Health Insurance [id number] 1935 Unknown [id number] 2.16.84 [id number] 1935 Unknown [id number] 2.16.84 [id number] 1935 Unknown [id number] 2.16.84 [id number] 1935 Unknown [id number] 2.16.84 [id number] 1935 Unknown [id number] 2.16.84 [id number] 1935 Unknown [id number] 2.16.84 [id number] 1935 Unknown [id number] 2.16.8 [id number] 1935 Unknown [id number] 2.16.8 [id number] 1935 Unknown [id number] 2.16.8 [id number] 1935 Unknown [id number] 2.16.8 [id number] 1935 Unknown [id number] 2.16.84 [id number] Unknown [id number] 2.16.8 [id number] Social History Date Type Detail Facility Start: 08-04-2020 End: 09-28-2023 Sex Assigned At [facility] Start: 05-28-2014 End: 09-21-2022 Tobacco smoking status NHIS Never smoked tobacco [facility] Start: 10-25-2016 End: 10-25-2023 Alcohol intake Current drinker of alcohol (finding) [facility] Start: 1935 Sex Assigned At Not on file [facility] Start: 09-29-2022 Tobacco smoking stat us VAIS Unknown if ever smoked [facility] Start: 1935 Sex Assigned At Female F [facility] Start: 09-21-2022 Tobacco use and exposure Smokeless tobacco non-user [facility] Start: 08-04-2020 End: 09-28-2023 History of Social function [facility] Adolescent depressio n screening assessment 0 [facility] Goals Date Patient Goal Desired Activity /State Functional Status Date Assessment Result Facility 09-28-2022 Functional status Patient Not at Baseline [facility] Work Phone: Mental Status Date Assessment Result Facility 09-28-2022 Cognitive function Cognitive Sta tus Patient Not at Baseline [facility] Work Phone: Clinical Notes 12-13-2021 to 10-25-2023 Ashley Olvera, [facility] - 10/25/2023 11:30 AM EDTTelephone Encounter - Justus Gastelum, [facility] - 10/09/2023 1:17 PM EDTTelephone Encounter - Justus Gastelum, [facility] 10/09/2023 1:17 PM EDT Note Date & Type Note Facility 10-25-2023 History of Present illness Narrative Images from the original note were not included. 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 Resides at assisted living in [place]. ALL QUESTIONS ANSWERED Total time spent was 25 minutes: Preparing to see the patient (e.g., review of tests) Obtaining and/or reviewing separately obtained history Performing a medically appropriate examination and/or evaluation Counseling and educating the patient/family/caregiver Ordering medications, tests, or procedures Follow-up: 4 months GAGE Guerrero 10/25/23 1251 documented in this encounter [facility] 10-09-2023 Miscellaneous Notes Ronel Perryyde Yenifer called and would like the recent Scripts sent to [facility] instead of the other pharmacy that was listed. [phone] documented in this encounter [facility] 10-09-2023 Telephone encounter Note Ronel frausto [address] called and would like the recent Scripts sent to [facility] instead of the other pharmacy that was listed. [phone] [facility] 10-09-2023 History of Present illness Narrative Images from the original note were not included. [place] [address] Patient ID: Annamaria Garcia is a 88 y.o. female. Transition of Care Diagnosis on Discharge: Hypertensive urgency, Left lower lobe penumonia Name of Discharging Facility: [facility] Date of Facility Discharge: October 02, 2023 Date of Interactive Contact and Name of Drum Tender: Medication Reconciliation Completed: Yes Medication Reconciliation Questions/Concerns: [...] and Other Services Utilized/Needed by the Patient: [facility] Home care / PT *Additional Questions/Concerns Requiring PCP Follow-Up: Pain control for arthritis SUBJECTIVE: Patient ID: Annamaria Garcia is a 88 y.o. female. Chief Complaint Patient presents with Hypertension [facility] follow up 09/29-10/01 Hypertension This is [...] Guerrero 10/09/23 1307 documented in this encounter [facility] 09-27-2023 History of Present illness Narrative Images from the original note were not included. [address] [facility] [address] SUBJECTIVE: Patient ID: Annamaria Garcia is a [...] but returned worse. Family took her to [facility] ER last week for evaluation. Ordered [...] History: Diagnosis Date B12 deficiency Colonic cancer ([facility]) s/p robotic resection. 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 [...] months Sooner if needed GAGE Guerrero 09/28/23 2186 documented in this encounter [employer] 10-02-2022 Progress note Note Date/Time October 02, 2022 12:44pm [facility] [address] [place] [address] Hospitalist Progress Note Signed Patient: Annamaria Garcia MR#: [id number] : 1935 Acct:[id number] Age/Sex: 87 / F Adm Date: 3 Loc: 4N Room: [address] [place] [address] Type: ADM IN Attending Dr: Gordon You [...] formulated the plan of care and confirmed ENGRAVER PICTURE's written note. Documented By: Mimi Artis APRN 10/02/22 1241 Signed By: <Electronically signed by KHURRAM Artis> 10/02/22 1244 <Electronically signed by Gordon You MD> 10/02/22 2120 [facility] Work Phone: 1(214) 979-296503-12-2023 Progress note Author Gordon You [facility] October 02, 2022 9:16pm Note Date/Time October 01, 2022 12: 12pm [facility] [address] [place] [address] Hospitalist Progress Note Signed Patient: Annamaria Garcia MR#: [id number] : 1935 Acct:[id number] Age/Sex: 87 / F Adm Date: 3 Loc: 4N Room: [address] [place] [address] Type: ADM IN Attending Dr: Gordon You [...] the plan of care and confirmed the ENGRAVER PICTURE's written note. Documented By: Mimi Artis APRN 10/01/22 1207 Signed By: <Electronically signed by KHURRAM Artis> 10/01/22 1213 <Electronically signed by Gordon You MD> 10/02/22 [facility] Work Phone: 1(687) 154-318903-12-2023 Progress note Author Leighton Valente [facility] October 02, 2022 12:49pm Note Date/Time October 02, 2022 12: 43pm [facility] [address] [place] [address] Orthopedic Progress Note Signed Patient: Annamaria Garcia MR#: [id number] : 1935 Acct:[id number] Age/Sex: 87 / F Adm Date: 3 Loc: 4N Room: [address] [place] [address] Type: ADM IN Attending Dr: Gordon You [...] % (Auto) 72.4 Lymph % (Auto) 12.7 [place] % (Auto) 13.6 Eos % (Auto) 1.0 Baso % (Auto) 0.3 Nucleat RBC Rel Count 0.0 Neut # (Auto) 5.3 Lymph # (Auto) 0.9 L [place] # (Auto) 1.0 H Eos # (Auto) [...] signed by MD Leighton Valente> 10/02/22 1249 [facility] Work Phone: 1(202) 639-762003-10-2023 Progress note Author Yani Cyr [facility] September 30, 2022 4:42pm Note Date/Time September 30, 2022 12: 30pm [facility] [address] [place] [address] Hospitalist Progress Note Signed Patient: Annamaria Garcia MR#: [id number] : 1935 Acct:[id number] Age/Sex: 87 / F Adm Date: 3 Loc: 4N Room: 0C2832-8 Type: ADM IN Attending Dr: Yani Cyr [...] signed by Yani Cyr MD> 09/30/22 1642 [facility] Work Phone: 1(776) 809-546103-09-2023 Progress note Author Leighton Valente [facility] September 29, 2022 12:30pm Note Date/Time September 29, 2022 7:53 am [facility] [address] [place] [address] Orthopedic Progress Note Signed Patient: Annamaria Garcia MR#: [id number] : 1935 Acct:[id number] Age/Sex: 87 / F Adm Date: 3 Loc: 4N Room: 0V9588-4 Type: ADM IN Attending Dr: Adama Kothari [...] signed by MD Leighton Valente> 09/29/22 1230 [facility] Work Phone: 1(808) 673-864803-09-2023 Consult note Author Leighton Valente [facility] September 29, 2022 7:45am Note Date/Time September 29, 2022 7:39 am [facility] [address] [place] [address] Orthopedic Consult Note Signed Patient: Annamaria Garcia MR#: [id number] : 1935 Acct:[id number] Age/Sex: 87 / F Adm Date: 3 Loc: 4N Room: [address] [place] [address] Type: ADM IN Attending Dr: Adama Kothari MD Copies to: MD Leighton Paul MD Valerie J Castillo [employer]ASEB[employer] CLUB MANAGERElizabethC~ History of Present Illness HPI Consult date: 09/29/2022 Requesting provider: Adama Kothari MD History of present illness: Patient is an 87-year-old female who sustained a fall with complaints of left hip pain.. [facility]. [facility] [...] % (Auto) 87.9, Lymph % (Auto) 4.7, [place] % (Auto) 7.4, Eos % (Auto)0.0, Baso % (Auto) 0.0, Nucleat RBC Rel Count 0.1, Neut # (Auto) 10.7 H, Lymph #(Auto) 0.6 L, [place] # (Auto) 0.9 H, Eos # (Auto) [...] signed by MD Leighton Valente> 09/29/22 0745 [facility] Work Phone: 1(923) 176-604703-08-2023 History and physical note Author Juliet Green [facility] September 28, 2022 9:41pm Note Date/Time September 28, 2022 4:41 am [facility] [address] [place] [address] Hospitalist H&P Signed Patient: Annamaria Garcia MR#: [id number] : 1935 Acct:[id number] Age/Sex: 87 / F Adm Date: 3 Loc: Room: [address] [place] [address] Type: ADM IN Attending Dr: Adama Kothari MD Copies to: MD Juliet Paul MD Valerie J Castillo NP-C~ HPI DATE OF EXAMINATION: 09/28/22 CHIEF COMPLAINT: hip fx HISTORY OF PRESENT ILLNESS: 87 years old female sustained what it seems mechanical fall, without any prodromal symptoms at home, where she lives alone, and presented to [facility] room where she was diagnosed with [...] Previous records in the computer system reviewed PENDING SALE TO [facility] Vaccinated for COVID-19?: Yes Surgical History (Updated [...] now Documented By: Juliet Green MD 09/28/22 3167 Signed By: <Electronically signed by Juliet Green MD> 09/28/22 3992 [facility] Work Phone: 1(321) 923-896303-08-2023 Progress note Author [facility] September 28, 2022 7:19pm Note Date/Time September 28, 2022 10:0 4am [facility] [address] [place] [address] Hospitalist Progress Note Signed Patient: Annamaria Garcia MR#: [id number] : 1935 Acct:[id number] Age/Sex: 87 / F Adm Date: 3 Loc: 4N Room: [address] [place] [address] Type: ADM IN Attending Dr: Adama oKthari MD Copies to: ~ Date of Service: [...] Meq Kcl IV 09/28/23 05:29 75 mls/hr .[id number] XIAO Administration Lactated Ringer's 1,000 mls @ [...] Adama Kothari MD> 09/28/22 1919 [facility] Work Phone: 1(241) 765-703403-08-2023 Hospital Discharge instructions Additional Instructions SNF Physician: [...] foam to Coccyx for protection. [facility] Work Phone: 1(290) 163-470009-26-2022 NoteHNO ID: [id number] Author: Storm Russell APRN.NAVAL AIRCREWMAN TACTICAL HELICOPTER Service: ? Author Type: Nurse Specialist Type: Progress Notes Filed: 04/21/2022 7:19 AM Note Text: [facility] NOTE NAME: ANNAMARIA GARCIARAMONSANDRO NO.: [id number] DATE OF SERVICE: 04/18/2022 [facility] DATE OF : 1935 REASON FOR VISIT: The patient is a resident of [facility]. This is a skilled visit for [...] no supplement. DICTATED BY: SARAH Bliss/Bernice JOB# [id number] cc:[facility]09-21-2022 NoteHNO ID: [id number] Author: Storm Russell APRN.[employer]VAL [employer]CREW[employer] TACTICAL HELICOPTER Service: ? Author Type: Nurse Specialist Type: Progress Notes Filed: 04/14/2022 3:59 PM Note Text: [facility] NOTE NAME: ANNAMARIA GARCIARAMONSANDRO NO.: [id number] DATE OF SERVICE: 04/13/2022 [facility] DATE OF : 1935 REASON FOR VISIT: The patient is a resident of [facility]. This is a skilled visit for [...] supportive care. DICTATED BY: SARAH Bliss/Bernice JOB# [id number] cc:[facility]09-21-2022 History of Present illness Narrative* Storm Russell APRN.[employer] TACTICAL HELICOPTER - 04/13/2022 12:00 AM EDT [facility] NOTE NAME: STANISLAW GARCIA NO.: [id number] DATE OF SERVICE: 04/13/2022 [facility] DATE OF : 1935 REASON FOR VISIT: The patient is a resident of [facility]. This is a skilled visit for [...] supportive care. DICTATED BY: SARAH Bliss/Bernice JOB# [id number] cc:[facility] documented in this encounterT[facility]09-16-2022 NoteHNO ID: [id number] Author: Storm Russell APRN.[employer]CREW[employer] TACTICAL HELICOPTER Service: ? Author Type: Nurse Specialist Type: Progress Notes Filed: 04/11/2022 7:39 PM Note Text: [facility] NOTE NAME: STANISLAW GARCIA NO.: [id number] DATE OF SERVICE: 04/08/2022 [facility] DATE OF : 1935 REASON FOR VISIT: The patient is a resident of [facility]. This is a skilled visit for pelvic [...] normal range. DICTATED BY: SARAH Bliss JOB# [id number] cc:[facility]09-16-2022 History of Present illness Narrative* Storm Russell APRN.[employer]CREW[employer] TACTICAL HELICOPTER - 04/08/2022 12:00 AM EDT [facility] NOTE NAME: STANISLAW GARCIA NO.: [id number] DATE OF SERVICE: 04/08/2022 [facility] DATE OF : 1935 REASON FOR VISIT: The patient is a resident of [facility]. This is a skilled visit for pelvic [...] normal range. DICTATED BY: SARAH Bliss/Bernice JOB# [id number] cc:[facility] documented in this encounterTogus [facility]09-13-2022 NoteHNO ID: [id number] Author: Debra Vásquez Service: ? Author Type: Physician Type: Progress Notes Filed: 04/06/2022 5:49 PM Note Text: [facility] NOTE NAME: STANISLAW GARCIA NO.: [id number] DATE OF SERVICE: 04/05/2022 [facility] DATE OF : 1935 NEW PATIENT HISTORY AND PHYSICAL HISTORY OF PRESENT ILLNESS: Patient is an 86-year-old female, who is admitted to us from [facility] with a diagnoses of acute nondisplaced [...] she knew that she was somewhere is [place]. She is aware of having had a [...] hospital. DICTATED BY: MD ROCHELLE Silverio/Bernice JOB# [id number] cc:[facility]09-13-2022 History of Present illness Narrative* Debra Vásquez - 04/05/2022 12:00 AM EDT [facility] NOTE NAME: STANISLAW GARCIA NO.: [id number] DATE OF SERVICE: 04/05/2022 [facility] DATE OF : 1935 NEW PATIENT HISTORY AND PHYSICAL HISTORY OF PRESENT ILLNESS: Patient is an 86-year-old female, who is admitted to us from [facility] with a diagnoses of acute nondisplaced [...] she knew that she was somewhere is [place]. She is aware of having had a [...] hospital. DICTATED BY: MD ROCHELLE Silverio/Bernice JOB# [id number] cc:[facility] documented in this encounterTogus [facility] Center05-23-2022 Evaluation note* Encounter Date Diagnosis [...] go to [facility] for further evaluation. 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* Diagnosis Arthritis, multiple joint involvement Unspecified arthropathy, multiple sites documented in this encounter [facility]* Diagnosis Arthritis, multiple joint involvement- Primary Unspecified arthropathy, multiple sites Benign essential HTN documented in this encounter [facility]* Diagnosis Arthritis, multiple joint involvement- Primary Unspecified arthropathy, multiple sites History of healed osteoporosis fracture Decreased mobility and endurance documented in this encounter [facility] SystemHistory general Narrative - Reported* Type Description Date Surgical History CATARACT REMOVAL Surgical History CHOLECYSTECTOMY INTEX Program Other Instructions* Attachments The following attachments cannot be sent through Care Everywhere. * Skin Rash (Bangladeshi) documented in this encounterProUniversity [facility] SystemInstructions* Attachments The following attachments cannot be sent through Care Everywhere. * Joint Pain (Bangladeshi) documented in this encounterProUniversity [facility] SystemInstructionsNot on file documented in this encounterProJohn [facility] [place] SystemInstructionsNot on file documented in this encounterSelect [facility] SystemInstructions* Attachments The following attachments cannot be sent through Care Everywhere. * Chronic pain (Bangladeshi) documented in this encounterSelect [facility] SystemReason for referral (narrative)* Consultation (Routine) - Pending Review Specialty Diagnoses / Procedures Referred By Christiane layton Referred To Contact Dermatology Diagnoses Rash and nonspecific skin eruption Ashley Olvera, [facility] [address] [place] [address] Shawanda Cintron MD [address], [facility] [address] [place] [address] Referral ID Status Reason Start Date Expiration Date Visits Requested Visits Authorized [id number] Pending Review Specialty Services Required 09/27/2023 09/26/[address] [facility] Advance Directives No Advanced Directives Records FoundDocuments on File Type Date Recorded Patient Business Unit Director Expl anation Advance Directive(s) 04/04/2016 12:27 PM Advance Directive Response Recorded Date/ Time Advance Directives No September 28 2:49am Documents on File Type Date Recorded Patient Business Unit Director Expl anation Advance Directive 04/11/2023 3:23 PM POA Advance Directive 03/08/2023 11:14 AM guar dianship 03/08/2023 Documents on File Type Date Recorded Patient Business Unit Director Expl anation Advance Directive 04/11/2023 3:23 PM [...] Diagnoses Arthritis, multiple joint involvement Ashley Olvera, [facility] [address] [place] [address] Referral ID Status Reason Start Date Expiration Date V isits Requested Visits Authorized [id number] Pending Review 1 1 Additional Source Comments [...] or prosecute any alcohol or drug abuse patient.[facility] CenterIn the event this information is protected by the Federal Confidentiality of Alcohol and Drug Abuse Patient Records regulations: The Federal rules restrict any use of the information to criminally investigate or prosecute any alcohol or drug abuse patient.[facility] CenterIn the event this information is protected by the Federal Confidentiality of Alcohol and Drug Abuse Patient Records regulations: The Federal rules restrict any use of the information to criminally investigate or prosecute any alcohol or drug abuse patient.[facility] Care Teams (unrecognized sec tion and content) Nurse Navigator Relationship Specialty Start Date End Date Richard He PCP - General Family Practice 05/08/14 Nurse Navigator Relationship Specialty Start Date End Date Richard He PCP - General Family Medicine 05/08/14 Team Status: Active Member Role Status Dates Ashley Olvera [employer]GER-C Primary Care Provider Active Team Status: Inactive Member Role Status Dates Ashley J Olvera , [employer] MA[employer]GER-C Primary Care Provider Active Juliet Green MD Admit Provider Active Leighton Valente MD Other Provider Active Galen Escobar MD Other Provider Active Lilian Van MD Other Provider Active Silvestre Saunders DO Other Provider Active Bulmaro Moses II, MD Other Provider Active Yani Cyr MD Attending Provider Active Nurse Navigator Relationship Specialty Start Date End Date Ashley Olvera [facility] [address] [place] [address] PCP - General Family Medicine 07/23/19 Nurse Navigator Relationship Specialty Start Date End Date Ashley Olvera [facility] [address] [place] [address] PCP - General Family Medicine 07/23/19 Nurse Navigator Relationship Specialty Start Date End Date Ashley Olvera [facility] [address] [place] [address] PCP - General Family Medicine 07/23/19 Nurse Navigator Relationship Specialty Start Date End Date Ashley Olvera [facility] [address] [place] [address] PCP - General Family Medicine 07/23/19 INFORMATION SOURCE (unrecogn ized section and content) DATE CREATED AUTHOR 04/25/2022 [facility] DATE CREATED AUTHOR AUTHOR'S ORGANIZ ATION 10/17/2022 [facility] DATE CREATED AUTHOR AUTHOR'S ORGANIZ ATION 10/17/2022 [facility] DATE CREATED AUTHOR AUTHOR'S ORGANIZ ATION 11/08/2023 [facility] DATE CREATED AUTHOR AUTHOR'S ORGANIZ ATION 11/22/2023 [facility] FOR RECORDS PERTAINING TO PATIENTS [...] BE BASED ON THE PRIMARY CLINICAL RECORDS. [facility]Phone[facility]. provides no warranty or guarantee of the accuracy or completeness of information in this document.
--- NOTE | 2023-12-06 20:05 | CT_ITS ---
The [address] [address] Patient Name: JIM GARCIA MRN: [id number] date: 1935 Sex: F Assigned Patient Location: ER Current Patient Location: ER Accession/Order Number: [id number] Exam Date: 12/06/2023 20:16 Report Date: 12/06/2023 21:22 At the request of: YANETH MARKER Procedure: CT abdomen pelvis wo con EXAM: CT abdomen pelvis wo con , 12/06/2023 HISTORY: left flank pain COMPARISON: Prior CT scan from 09/27/2022 and rib x-rays from 11/14/2023. TECHNIQUE: Noncontrast CT scan of the abdomen and pelvis was performed. Coronal and sagittal reconstructions were performed. Dose reduction techniques were achieved by using automated exposure control and/or adjustment of mA and/or kV according to patient size and/or use of iterative reconstruction technique. FINDINGS: No urolithiasis or urinary tract dilatation. Urinary bladder is unremarkable. No obvious focal kidney lesion. The liver, spleen, pancreas and both adrenal glands are unremarkable, given the limitation of noncontrast study. Postcholecystectomy. No biliary dilatation or significant interval change. Mild atherosclerotic calcification of the abdominal aorta. Colonic diverticulosis without diverticulitis. No bowel loop dilatation or bowel wall thickening. Postsurgical sutures in the right-sided colon. Uterus and adnexa are unremarkable. No free fluid in the peritoneal cavity. The bone windows demonstrate compression fracture of L2 vertebra, which is a new finding compared to 2022. Partial compression of T11 vertebra. Fixation hardware in the left femur. Old fractures of the right-sided ribs posteriorly. Old healed fractures of the pelvic bones. Scans through the lung show mild bilateral atelectasis. CT/CT abdomen pelvis wo con IMPRESSION: 1. Likely acute/subacute fracture of L2 vertebra, and chronic partial compression of T11 vertebra with underlying diffuse osteopenia. Recommend clinical correlation and dedicated spine imaging as indicated. 2. No urolithiasis or urinary tract dilatation. 3. Colonic diverticulosis without diverticulitis. Electronically authenticated by: BEHZAD BARILLAS Date: 12/06/2023 21:22
[2023-12-06 20:15] LABS: Hematocrit 32.8 % (36.0-48.0); Hemoglobin 11.1 g/dL (12.0-16.0); Mean Corpuscular HGB Conc 33.8 g/dL (29.9-35.2); Mean Corpuscular Hemoglobin 31.2 pg (26.7-34.0); Mean Corpuscular Volume 92.1 fL (81.0-99.0); Mean Platelet Volume 8.7 fL (9.5-13.5); Platelet Count 468 10^3/uL (150-450); Red Blood Count 3.56 10^6/uL (4.20-5.40); White Blood Count 17.2 10^3/uL (4.0-11.0)
[2023-12-06] MEDS: 0.9 % SODIUM CHLORIDE 1,000 ML 125 ML IV (20:25)
[2023-12-06 20:28] VITALS: BP 181/89; PULSE 84
[2023-12-06 20:31] LABS: Alanine Aminotransferase 11 U/L (14-59); Albumin Globulin Ratio 0.7; Albumin Level 2.8 g/dL (3.4-5.0); Alkaline Phosphatase 88 U/L (46-116); Anion Gap 11.8; Aspartate Amino Transferase 29 U/L (15-37); BUN Creatinine Ratio 28.3; Bilirubin Total 0.5 mg/dL (0.2-1.0); Calcium 9.8 mg/dL (8.5-10.1); Carbon Dioxide 26.6 mmol/L (21.0-32.0); Chloride 96 mmol/L (98-107); Estimated GFR (African America >60 (>=60); Estimated GFR (Non-African Ame >60 (>=60); Globulin 4.3 g/dL; Glucose 108 mg/dL (74-106); Potassium 3.4 mmol/L (3.5-5.1); Sodium 131 mmol/L (136-145); Total Protein 7.1 g/dL (6.4-8.2)
[2023-12-06 20:33] LABS: Lactate/Lactic Acid 1.2 mmol/L (0.4-2.0)
[2023-12-06 20:44] LABS: Atypical Lymphocytes Abs Man 0.68; Hypersegmented Neutrophils 3+; Lymphocytes Absolute Manual 0.68 10^3/uL (1.20-3.80); Myelocytes Absolute Manual 0.34; Segmented Neut Absolute Manual 14.27 10^3/uL (1.4-6.5)
--- NOTE | 2023-12-06 20:54 | XR_ITS ---
The [address] [address] Patient Name: JIM GARCIA MRN: [id number] date: 1935 Sex: F Assigned Patient Location: ER Current Patient Location: ER Accession/Order Number: [id number] Exam Date: 12/06/2023 21:25 Report Date: 12/06/2023 22:11 At the request of: YANETH MARKER Procedure: XR chest 2V EXAM: XR chest 2V HISTORY: Hx rib fracture, SOB COMPARISON: None. TECHNIQUE: 2 views of the chest FINDINGS: Heart size normal. Patchy interstitial and alveolar opacities scattered throughout the lungs. No pneumothorax. Small bilateral pleural effusions. XR/XR chest 2V IMPRESSION: Patchy scattered interstitial and alveolar opacities. Small bilateral pleural effusions. Electronically authenticated by: IAN PAINTING Date: 12/06/2023 22:11
[2023-12-06 20:55] VITALS: BP 178/80; PULSE 74; O2SAT 95
[2023-12-06 21:27] LABS: Bilirubin Urine NEGATIVE (NEGATIVE); Blood Urine NEGATIVE (NEGATIVE); Clarity Urine CLEAR (CLEAR); Color Urine YELLOW (YELLOW); Glucose Urine UA NEGATIVE (NEGATIVE); Ketones Urine 15 mg/dL (NEGATIVE); Leukocyte Esterase Urine TRACE (NEGATIVE); Nitrite Urine NEGATIVE (NEGATIVE); Protein Urine 30 mg/dL (NEG/TRACE)
[2023-12-06 21:42] LABS: Bacteria Urine NONE SEEN #/HPF (NONE SEEN); Crystals Seen? None Seen #/HPF (None Seen); Mucus Urine MODERATE (NONE SEEN); RBC Urine 0-2 #/HPF (0-2); Squamous Epithelial Cell Urine RARE #/LPF (NONE/RARE); Transitional Epi Cells Urine FEW #/LPF (NONE SEEN)
[2023-12-06 21:43] LABS: Cast Seen? SEEN #/LPF (NONE SEEN); Hyaline Casts Urine FEW; Urine Culture Indicated YES
[2023-12-06 22:12] VITALS: BP 141/70; PULSE 72; O2SAT 99
[2023-12-06] MEDS: DOXYCYCLINE MONOHYDRATE 100 MG CAPSULE PO (22:49)
[2023-12-06] MEDS: TRAMADOL HCL 50 MG TABLET PO (22:49)
[2023-12-06 22:50] VITALS: BP 158/76; PULSE 80; O2SAT 96
== END 2023-12-06 22:50 | disposition home or self-care (01) ==
PROVIDERS: Emergency Provider Emergency Medicine; PCP Nurse Practitioner
DX: M48.56XA Collapsed vertebra, not elsewhere classified, lumbar region, initial encounter for fracture (principal); J18.9 Pneumonia, unspecified organism; F03.90 Unspecified dementia, unspecified severity, without behavioral disturbance, psychotic disturbance, mood disturbance, and anxiety; M81.0 Age-related osteoporosis without current pathological fracture; Z87.891 Personal history of nicotine dependence; Z79.899 Other long term (current) drug therapy; Z79.82 Long term (current) use of aspirin; Z87.81 Personal history of (healed) traumatic fracture
CPT/HCPCS: 36415; 71046; 74176; 80053; 81001; 83605; 85007; 85027; 87086; 87150; 87186; 99285

== ENCOUNTER 2023-12-14 07:01 | Emergency (ER) | payer MEDICARE, SELFPAY ==
[2023-12-14 07:03] VITALS: BP 168/77; PULSE 74; TEMP 36.8; O2SAT 95; BMI 17.7
--- OUTSIDE RECORDS SUMMARY | 2023-12-14 07:13 | XMS_ITS | CCD ---
Author Organization [facility] Team Providers Care Negative Notcher Name Role Phone Rylie Galvan Unavailable Richard [...] Attending Unavailable OLVERA, ASHLEY Primary Care Unavailable RAYMUNDO ., DR DE GUZMAN Consulting Unavailable RAYMUNDO ., DR DE GUZMAN [...] Moses II Consulting UnavailLeighton Anglin Unavailable Olvera HUMAN RESOURCES VICE PRESIDENTSARAH, Ashley J Primary Care Provid er ITALO DONOHUE Attending Unavailable OLVERAASHLEY HOYOS J Attending Unavailable OLVERA, ASHLEY J Referring [...] Propensity to adverse reactions to drug 01-11-2017 [facility] Medications Current Medications Medication Drug [...] a day Active take [facility]-four hours Ferrous Sulfate 325 (65 [...] 0 Active take 1 capsule by mo [facility] every twenty-four hours Lutein 20 MG [...] Comment on above: Take [address] [facility] twice daily. Take 1 capsule with breakfast [...] 40 mg/ml injection (4 sources) Corticosteroid Start: End: methylPREDNISolone acetate (DEPO-MEDROL) injection 40 mg [...] 10-10-2022 Chronic Other aftercare (1 source) Other half-way (current) drug therapy; Translations: [OTH TRAVEL COORDINATOR CURRENT DRUG THERAPY] Onset: 09-29-2022 Episodic Other [...] 10-14-2022 BASO # 0.0 103/ul Normal 0.0-0.1 [facility] Comment on above: Performed By: #### C DONA, LEONCIODM #### [facility] [address] [place] [address] Dr. Nidhi Dawn Basophils/100 WBC (Bld) 0.3 % Normal 0.2-2.0 [facility] Comment on above: Performed By: #### C DONA, LEONCIODM #### [facility] [address] [place] [address] Dr. Nidhi Dawn EO # 0.1 103/ul Normal 0.0-0.7 [facility] Comment on above: Performed By: #### C DONA, HELENA #### [facility] [address] [place] [address] Dr. Nidhi Dawn Eosinophils/100 WBC (Bld) 1.2 % Normal 0.9-7.0 [facility] Comment on above: Performed By: #### C DONA, LEONCIODM #### [facility] [address] [place] [address] Dr. Nidhi Dawn Erythrocyte distribution width (RBC) [Ratio] 15.7 % Critically high 11.0-15.0 [facility] Comment on above: Performed By: #### C DONA, LEONCIODM #### [facility] [address] [place] [address] Dr. Nidhi Dawn Hematocrit (Bld) [Volume fraction] 28.5 % Critically low 36.0-48.0 [facility] Comment on above: Performed By: #### C DONA, LEONCIODM #### [facility] [address] [place] [address] Dr. Nidhi Dawn Hemoglobin (Bld) [Mass/Vol] 8.9 g/dL Critically low 12.0-16.0 [facility] Comment on above: Performed By: #### C DONA, LEONCIODM #### [facility] [address] [place] [address] Dr. Nidhi Dawn IG # 0.04 10e3/ul Critically high 0.00-0.03 [facility] Comment on above: Performed By: #### C DONA, LEONCIODM #### [facility] [address] [place] [address] Dr. Nidhi Dawn IG % 0.7 % Critically high 0.0-0.5 [facility] Comment on above: Performed By: #### C LEONCIO CARCAMODM #### [facility] [address] [place] [address] Dr. Nidhi Dawn LYMPH # 0.9 103/ul Critically low 1.2-3.8 [facility] Comment on above: Performed By: #### C LEONCIO CARCAMODM #### [facility] [address] [place] [address] Dr. Nidhi Dawn Lymphocytes/100 WBC (Bld) 15.6 % Critically low 20.5-60.0 [facility] Comment on above: Performed By: #### C LEONCIO CARCAMODM #### [facility] [address] [place] [address] Dr. Nidhi Dawn MANUAL DIFF REQ NO Normal [facility] Comment on above: Performed By: #### C DONA, LEONCIODM #### [facility] [address] [place] [address] Dr. Nidhi Dawn MCH (RBC) [Entitic mass] 30.8 pg Normal 26.7-34.0 [facility] Comment on above: Performed By: #### C DONA, LEONCIODM #### [facility] [address] [place] [address] Dr. Nidhi Dawn MCHC (RBC) [Mass/Vol] 31.2 g/dL Normal 29.9-35.2 [facility] Comment on above: Performed By: #### C DONA, LEONCIODM #### [facility] [address] [address] [address] Nidhi Dawn MCV (RBC) [Entitic vol] 98.6 fL Normal 81.0-99.0 [facility] Comment on above: Performed By: #### C MP, CMADM #### [facility] [address] [address] [address] Nidhi Dawn MONO # 0.7 103/ul Normal 0.3-0.8 [facility] Comment on above: Performed By: #### C MP, CMADM #### [facility] [address] [place] [address] Dr. Nidhi Dawn Monocytes/100 WBC (Bld) 11.1 % Normal 1.7-12.0 [facility] Comment on above: Performed By: #### C MP, CMADM #### [facility] [address] [place] [address] Dr. Nidhi Dawn NEUT # 4.2 103/ul Normal 1.4-6.5 [facility] Comment on above: Performed By: #### C MP, CMADM #### [facility] [address] [place] [address] Dr. Nidhi Dawn Neutrophils/100 WBC (Bld) 71.1 % Normal 43.0-75.0 [facility] Comment on above: Performed By: #### C MP, CMADM #### [facility] [address] [place] [address] Dr. Nidhi Dawn Platelet mean volume (Bld) [Entitic vol] 8.5 fL Critically low 9.5-13.5 [facility] Comment on above: Performed By: #### C MP, CMADM #### [facility] [address] [place] [address] Dr. Nidhi Dawn PLT 614 103/ul Critically high 150-450 [facility] Comment on above: Performed By: #### C MP, CMADM #### [facility] [address] [place] [address] Dr. Nidhi Dawn RBC 2.89 106/ul Critically low 4.20-5.40 [facility] Comment on above: Performed By: #### C HELENA CARCAMO #### [facility] [address] [place], [place] [address] Dr. Nidhi Dawn WBC 5.8 103/ul Normal 4.0-11.0 [facility] Comment on above: Performed By: #### C DONA, LEONCIODM #### [facility] [address] [place], [place] [address] Dr. Nidhi Dawn Basic Metabolic Panelon 09-21 Anion gap [Moles/Vol] 8.2 mmol/L Normal 6.0-15.[address] [facility] Comment on above: Performed By: #### F ER, FE and TIBC #### [facility] [address] Calcium [Mass/Vol] 9.1 mg/dL Normal 8.6-10.3 [facility] Comment on above: Performed By: #### F ER, FE and TIBC #### [facility] [address] [place] [address] [place] Chloride [Moles/Vol] 102 mmol/L Normal 98-107 [facility] Comment on above: Performed By: #### F ER, FE and TIBC #### [facility] [address] CO2 [Moles/Vol] 30.5 mmol/L Normal 21.0-31.0 [facility] Comment on above: Performed By: #### F ER, FE and TIBC #### [facility] [address] [place] [address] [place] Creatinine [Mass/Vol] 0.35 mg/dL Low 0.60-1.[address] [facility] Comment on above: Performed By: #### F ER, FE and TIBC #### [facility] [address] [place] [address] [place] Creatinine Clr Calc Pharmacy 35.59 Normal [facility] Comment on above: Result Comment: PERF ORMED BY: [place] [address] PATHOLOGIST [employer]SEMBLER CLARICE OSWALD M.D. Performed By: #### F ER, FE and TIBC #### [facility] [address] [place] [address] [place] GFR/1.73 sq M.predicted MDRD (S/P/Bld) [Vol rate/Area] mL/min/{1.73_m2} Normal [facility] Comment on above: Performed By: #### F ER, FE and TIBC #### [facility] [address] Glucose [Mass/Vol] 104 mg/dL Normal 74-109 [facility] Comment on above: Result Comment: [facility] Glucose Reference Range is dependent on time and content of last meal. Glucose of more than 200 mg/dL in a nonstressed, ambulatory subject supports the diagnosis of Diabetes Mellitus. ADA recommended reference range Performed By: #### F ER, FE and TIBC #### [facility] [address] Potassium [Moles/Vol] 3.7 mmol/L Normal 3.5-5.[address] [facility] Comment on above: Performed By: #### F ER, FE and TIBC #### [facility] [address] [place] [address] [place] Sodium [Moles/Vol] 137 mmol/L Normal 136-145 [facility] Comment on above: Performed By: #### F ER, FE and TIBC #### [facility] [address] [place] [address] [place] Urea nitrogen [Mass/Vol] 10 mg/dL Normal 7-25 [facility] Comment on above: Performed By: #### F ER, FE and TIBC #### [facility] [address] [place] [address] [place] Basophils Auto (Bld) [#/Vol] Ordered By: Yani Cyr on 10-03-2022 Basophils (Bld) [#/Vol] 0.0 10*3/uL 0.0-0.2 [facility] Basophils/100 WBC Auto (Bld) Ordered By: Yani Cyr on 10-03-2022 Basophils/100 WBC (Bld) 0.4 % . [facility] Calcium [Mass/volume] in Ser um or PlasmaOrdered By: Yani Cyr on 10-03-2022 Calcium [Mass/Vol] 9.1 mg/dL 8.6-10.3 [facility] Carbon dioxide, total [Moles /volume] in Serum or PlasmaOrdered By: Yani Cyr on 10-03-2022 CO2 [Moles/Vol] 30.5 mmol/L 21.0-31.0 [facility] Chloride [Moles/volume] in S enma or PlasmaOrdered By: Yani Cyr on 10-03-2022 Chloride [Moles/Vol] 102 mmol/L 98-107 [facility] Complete Blood Count Auto Di ffon 10-03-2022 Basophils (Bld) [#/Vol] 0.0 10*3/uL Normal 0.0-0.2 [facility] Comment on above: Result Comment: PERF ORMED BY: [place] [address] PATHOLOGIST [employer]SEM[employer] CLARICE OSWALD M.D. Performed By: #### F ER, FE and TIBC #### [facility] [address] [place] [address] [place] Basophils/100 WBC (Bld) 0.4 % Normal . [facility] Comment on above: Performed By: #### F ER, FE and TIBC #### [facility] [address] [place] [address] [place] Eosinophils (Bld) [#/Vol] 0.1 10*3/uL Normal 0.0-0.45 [facility] Comment on above: Performed By: #### F ER, FE and TIBC #### [facility] [address] [place] [address] [place] Eosinophils/100 WBC (Bld) 1.9 % Normal . [facility] Comment on above: Performed By: #### F ER, FE and TIBC #### [facility] [address] [place] [address] [place] Erythrocyte distribution width (RBC) [Ratio] 14.5 % Normal 11.9-15.3 [facility] Comment on above: Performed By: #### F ER, FE and TIBC #### [address] Hematocrit (Bld) [Volume fraction] 25.7 % Low 34.0-46.4 [facility] Comment on above: Performed By: #### F ER, FE and TIBC #### [address] Hemoglobin (Bld) [Mass/Vol] 8.7 g/dL Low 11.8-15.4 [facility] Comment on above: Performed By: #### F ER, FE and TIBC #### [address] Lymphocytes (Bld) [#/Vol] 1.1 10*3/uL Normal 1.00-4.8 [facility] Comment on above: Performed By: #### F ER, FE and TIBC #### [address] Lymphocytes/100 WBC (Bld) 14.2 % Normal . [facility] Comment on above: Performed By: #### F ER, FE and TIBC #### [address] MCH (RBC) [Entitic mass] 31.5 pg Normal 24.7-34.3 [facility] Comment on above: Performed By: #### F ER, FE and TIBC #### [address] MCV (RBC) [Entitic vol] 92.5 fL Normal 80-100 [facility] Comment on above: Performed By: #### F ER, FE and TIBC #### [address] Mean Corpuscular HGB Conc 34.1 g/dL Normal 32.0-35.0 [facility] Comment on above: Performed By: #### F ER, FE and TIBC #### [address] Monocytes (Bld) [#/Vol] 0.8 10*3/uL Normal 0.0-0.8 [facility] Comment on above: Performed By: #### F ER, FE and TIBC #### [address] Monocytes/100 WBC (Bld) 10.5 % Normal . [facility] Comment on above: Performed By: #### F ER, FE and TIBC #### [address] Neutrophils (Bld) [#/Vol] 5.5 10*3/uL Normal 1.8-7.7 [facility] Comment on above: Performed By: #### F ER, FE and TIBC #### [address] Neutrophils/100 WBC (Bld) 73.0 % Normal . [facility] Comment on above: Performed By: #### F ER, FE and TIBC #### [address] NRBC% 0.1 /100{WBC} Normal 0-0.5 [facility] Comment on above: Performed By: #### F ER, FE and TIBC #### [address] Platelet mean volume (Bld) [Entitic vol] 7.5 fL Normal 6.3-10.7 [facility] Comment on above: Performed By: #### F ER, FE and TIBC #### [address] Platelets (Bld) [#/Vol] 322 10*3/uL Normal 150-450 [facility] Comment on above: Performed By: #### F ER, FE and TIBC #### [address] RBC (Bld) [#/Vol] 2.77 10*6/uL Low 3.60-5.00 [facility] Comment on above: Performed By: #### F ER, FE and TIBC #### [address] WBC (Bld) [#/Vol] 7.6 10*3/uL Normal 3.8-11.6 [facility] Comment on above: Performed By: #### F ER, FE and TIBC #### [facility] [address] Creatinine [Mass/volume] in Serum or PlasmaOrdered By: Yani Cyr on 10-03-2022 Creatinine [Mass/Vol] 0.35 mg/dL 0.60-1.[address] [facility] Eosinophils Auto (Bld) [#/Vo l]Ordered By: Yani Cyr on 10-03-2022 Eosinophils (Bld) [#/Vol] 0.1 10*3/uL 0.0-0.45 [facility] Eosinophils/100 WBC Auto (Bl d)Ordered By: Yani Cyr on 10-03-2022 Eosinophils/100 WBC (Bld) 1.9 % . [facility] Erythrocyte distribution wid th Auto (RBC) [Ratio]Ordered By: Yani Cyr on 10-03-2022 Erythrocyte distribution width (RBC) [Ratio] 14.5 % 11.9-15.3 [facility] Glucose [Mass/volume] in Ser um or PlasmaOrdered By: Yani Cyr on 10-03-2022 Glucose [Mass/Vol] 104 mg/dL 74-109 [facility] Comment on above: ADA recommended refe rence rangeRandom Glucose Reference Range is dependent on time and content of last meal. Glucose of more than 200 mg/dL in a nonstressed, ambulatory subject supports the diagnosis of Diabetes Mellitus. Hematocrit Auto (Bld) [Volum e fraction]Ordered By: Yani Cyr on 10-03-2022 Hematocrit (Bld) [Volume fraction] 25.7 % 34.0-46.4 [facility] Hemoglobin [Mass/volume] in BloodOrdered By: Yani Cyr on 10-03-2022 Hemoglobin (Bld) [Mass/Vol] 8.7 g/dL 11.8-15.4 [facility] - Chemistry and C hemistry - challengeOrdered By: Yani Cyr on 10-03-2022 GFR/1.73 sq M.predicted MDRD (S/P/Bld) [Vol rate/Area] mL/min/{1.73_m2} [facility] Leukocytes [#/volume] correc anna marie for nucleated erythrocytes in Blood by Automated counOrdered By: Yani Cyr on 10-03-2022 WBC corrected for nucl RBC Auto (Bld) [#/Vol] 7.6 10*3/uL 3.8-11.6 [facility] Lymphocytes Auto (Bld) [#/Vo l]Ordered By: Yani Cyr on 10-03-2022 Lymphocytes (Bld) [#/Vol] 1.1 10*3/uL 1.00-4.8 [facility] Lymphocytes/100 WBC Auto (Bl d)Ordered By: Yani Cyr on 10-03-2022 Lymphocytes/100 WBC (Bld) 14.2 % . [facility] MCH Auto (RBC) [Entitic mass ]Ordered By: Yani Cyr on 10-03-2022 MCH (RBC) [Entitic mass] 31.5 pg 24.7-34.3 [facility] MCHC Auto (RBC) [Mass/Vol]Or dered By: Yani Cyr on 10-03-2022 MCHC (RBC) [Mass/Vol] 34.1 g/dL 32.0-35.[address] [facility] MCV Auto (RBC) [Entitic vol] Ordered By: Yani Cyr on 10-03-2022 MCV (RBC) [Entitic vol] 92.5 fL 80-100 [facility] Monocytes Auto (Bld) [#/Vol] Ordered By: Yani Cyr on 10-03-2022 Monocytes (Bld) [#/Vol] 0.8 10*3/uL 0.0-0.8 [facility] Monocytes/100 WBC Auto (Bld) Ordered By: Yani Cyr on 10-03-2022 Monocytes/100 WBC (Bld) 10.5 % . [facility] Neutrophils Auto (Bld) [#/Vo l]Ordered By: Yani Cyr on 10-03-2022 Neutrophils (Bld) [#/Vol] 5.5 10*3/uL 1.8-7.7 [facility] Neutrophils/100 WBC Auto (Bl d)Ordered By: Yani Cyr on 10-03-2022 Neutrophils/100 WBC (Bld) 73.0 % . [facility] No Panel InformationOrdered By: Yani Cyr on 10-03-2022 Pharmacy Creatinine Clearance (Chem 35.59 [facility] Nucleated erythrocytes [Pres ence] in Blood by Automated countOrdered By: Yani Cyr on 10-03-2022 Nucleated RBC Auto Ql (Bld) 0.1 /100{WBC} 0-0.5 [facility] Platelet mean volume Auto (B ld) [Entitic vol]Ordered By: Yani Cyr on 10-03-2022 Platelet mean volume (Bld) [Entitic vol] 7.5 fL 6.3-10.7 [facility] Platelets Auto (Bld) [#/Vol] Ordered By: Yani Cyr on 10-03-2022 Platelets (Bld) [#/Vol] 322 10*3/uL 150-450 [facility] Potassium [Moles/volume] in Serum or PlasmaOrdered By: Yani Cyr on 10-03-2022 Potassium [Moles/Vol] 3.7 mmol/L 3.5-5.[address] [facility] RBC Auto (Bld) [#/Vol]Ordere d By: Yani Cyr on 10-03-2022 RBC (Bld) [#/Vol] 2.77 10*6/uL 3.60-5.00 [facility] Serum or plasma anion gap de terminationOrdered By: Yani Cyr on 10-03-2022 Anion gap [Moles/Vol] 8.2 mmol/L 6.0-15.[address] [facility] Sodium [Moles/volume] in Ser um or PlasmaOrdered By: Yani Cyr on 10-03-2022 Sodium [Moles/Vol] 137 mmol/L 136-145 [facility] Urea nitrogen [Mass/volume] in Serum or PlasmaOrdered By: Yani Cyr on 10-03-2022 Urea nitrogen [Mass/Vol] 10 mg/dL 02-14 [facility] WBC Auto (Bld) [#/Vol]Ordere d By: Yani Cyr on 10-03-2022 WBC (Bld) [#/Vol] 7.6 10*3/uL 3.8-11.6 [facility] XR hip LT min 2V(w/wo pelvis )*on 10-03-2022 XR hip LT min 2V(w/wo pelvis)* [facility] Main [address] [address] XRay Report Signed Patient: Annamaria Garcia MR#: [id number] : 1935 Acct:[id number] Age/Sex: 87 / F ADM Date: 09/28/22 Loc: Room: [address] [place] [address] Type: ADM IN Attending Dr: Yani Cyr [...] Forrester Jr., D.O.10/03/2022 10:04 AM Dictation Location: [place] [address] Transcribed By: [facility] 10/03/22 1004 Dictated By: Josse Forrester Jr, DO 10/03/22 1003 Signed By: 10/03/22 1004 Normal [facility] Hemoglobin and Hematocriton 10-02-2022 Hematocrit (Bld) [Volume fraction] 21.3 % Low 34.0-46.4 [facility] Comment on above: Result Comment: PERF ORMED BY: [address] [id number] PATHOLOGIST [employer]SEMBLER CLARICE OSWALD M.D. Performed By: #### F ER, FE and TIBC #### [facility] [address] Hemoglobin (Bld) [Mass/Vol] 7.3 g/dL Low 11.8-15.4 [facility] Comment on above: Performed By: #### F ER, FE and TIBC #### [address] Complete Blood Count Auto Di ffon 10-01-2022 Basophils (Bld) [#/Vol] 0.0 10*3/uL Normal 0.0-0.2 [facility] Comment on above: Result Comment: PERF ORMED BY: [place] [address] PATHOLOGIST COM[employer]OR ASSEMBLER CLARICE OSWALD M.D. Performed By: #### C BC #### [address] Basophils/100 WBC (Bld) 0.3 % Normal . [facility] Comment on above: Performed By: #### C BC #### [address] Eosinophils (Bld) [#/Vol] 0.1 10*3/uL Normal 0.0-0.45 [facility] Comment on above: Performed By: #### C BC #### [address] Eosinophils/100 WBC (Bld) 1.0 % Normal . [facility] Comment on above: Performed By: #### C BC #### [address] Erythrocyte distribution width (RBC) [Ratio] 13.8 % Normal 11.9-15.3 [facility] Comment on above: Performed By: #### C BC #### [address] Hematocrit (Bld) [Volume fraction] 21.8 % Low 34.0-46.4 [facility] Comment on above: Performed By: #### C BC #### [address] Hemoglobin (Bld) [Mass/Vol] 7.4 g/dL Low 11.8-15.4 [facility] Comment on above: Performed By: #### C BC #### [address] Lymphocytes (Bld) [#/Vol] 0.9 10*3/uL Low 1.00-4.8 [facility] Comment on above: Performed By: #### C BC #### [address] Lymphocytes/100 WBC (Bld) 12.7 % Normal . [facility] Comment on above: Performed By: #### C BC #### [address] MCH (RBC) [Entitic mass] 31.0 pg Normal 24.7-34.3 [facility] Comment on above: Performed By: #### C BC #### [address] MCV (RBC) [Entitic vol] 91.8 fL Normal 80-100 [facility] Comment on above: Performed By: #### C BC #### [address] Mean Corpuscular HGB Conc 33.8 g/dL Normal 32.0-35.0 [facility] Comment on above: Performed By: #### C BC #### [address] Monocytes (Bld) [#/Vol] 1.0 10*3/uL High 0.0-0.8 [facility] Comment on above: Performed By: #### C BC #### [address] Monocytes/100 WBC (Bld) 13.6 % Normal . [facility] Comment on above: Performed By: #### C BC #### [address] Neutrophils (Bld) [#/Vol] 5.3 10*3/uL Normal 1.8-7.7 [facility] Comment on above: Performed By: #### C BC #### [address] Neutrophils/100 WBC (Bld) 72.4 % Normal . [facility] Comment on above: Performed By: #### C BC #### [address] NRBC% 0.0 /100{WBC} Normal 0-0.5 [facility] Comment on above: Performed By: #### C BC #### [address] Platelet mean volume (Bld) [Entitic vol] 8.0 fL Normal 6.3-10.7 [facility] Comment on above: Performed By: #### C BC #### [address] Platelets (Bld) [#/Vol] 208 10*3/uL Normal 150-450 [facility] Comment on above: Performed By: #### C BC #### [address] RBC (Bld) [#/Vol] 2.37 10*6/uL Low 3.60-5.00 [facility] Comment on above: Performed By: #### C BC #### [address] WBC (Bld) [#/Vol] 7.3 10*3/uL Normal 3.8-11.6 [facility] Comment on above: Performed By: #### C BC #### [address] Basic Metabolic Panelon 09-21 Anion gap [Moles/Vol] 8.7 mmol/L Normal 6.0-15.[address] [facility] Comment on above: Performed By: #### B MP, CBC #### [address] [address] [place] Calcium [Mass/Vol] 8.3 mg/dL Low 8.6-10.3 [facility] Comment on above: Performed By: #### B MP, CBC #### [facility] [address] Chloride [Moles/Vol] 111 mmol/L High 98-107 [facility] Comment on above: Performed By: #### B MP, CBC #### [facility] [address] CO2 [Moles/Vol] 26.5 mmol/L Normal 21.0-31.0 [facility] Comment on above: Performed By: #### B MP, CBC #### [facility] [address] Creatinine [Mass/Vol] 0.37 mg/dL Low 0.60-1.[address] [facility] Comment on above: Performed By: #### B MP, CBC #### [facility] [address] [place] [address] Creatinine Clr Calc Pharmacy 35.59 [facility] Comment on above: Result Comment: PERF ORMED BY: [place] [address] PATHOLOGIST [employer] ASSEMBLER CLARICE OSWALD M.D. Performed By: #### B MP, CBC #### [address] GFR/1.73 sq M.predicted MDRD (S/P/Bld) [Vol rate/Area] mL/min/{1.73_m2} [facility] Comment on above: Performed By: #### B MP, CBC #### [facility] [address] [place] [address] Glucose [Mass/Vol] 102 mg/dL Normal 74-109 [facility] Comment on above: Result Comment: [place] Glucose Reference Range is dependent on time and content of last meal. Glucose of more than 200 mg/dL in a nonstressed, ambulatory subject supports the diagnosis of Diabetes Mellitus. ADA recommended reference range Performed By: #### B MP, CBC #### [address] Potassium [Moles/Vol] 4.2 mmol/L Normal 3.5-5.[address] [facility] Comment on above: Performed By: #### B MP, CBC #### [address] Sodium [Moles/Vol] 142 mmol/L Normal 136-145 [facility] Comment on above: Performed By: #### B MP, CBC #### [address] Urea nitrogen [Mass/Vol] 16 mg/dL Normal 7-25 [facility] Comment on above: Performed By: #### B MP, CBC #### [address] Complete Blood Count Auto Di ffon 09-30-2022 Basophils (Bld) [#/Vol] 0.0 10*3/uL Normal 0.0-0.2 [facility] Comment on above: Result Comment: PERF ORMED BY: [place] [id number] PATHOLOGIST [employer]SEM[employer]ER CLARICE OSWALD M.D. Performed By: #### B MP, CBC #### [address] Basophils/100 WBC (Bld) 0.3 % Normal . [facility] Comment on above: Performed By: #### B MP, CBC #### [address] Eosinophils (Bld) [#/Vol] 0.0 10*3/uL Normal 0.0-0.45 [facility] Comment on above: Performed By: #### B MP, CBC #### [address] Eosinophils/100 WBC (Bld) 0.3 % Normal . [facility] Comment on above: Performed By: #### B MP, CBC #### [address] Erythrocyte distribution width (RBC) [Ratio] 14.1 % Normal 11.9-15.3 [facility] Comment on above: Performed By: #### B MP, CBC #### [address] Hematocrit (Bld) [Volume fraction] 22.3 % Low 34.0-46.4 [facility] Comment on above: Performed By: #### B MP, CBC #### [address] Hemoglobin (Bld) [Mass/Vol] 7.8 g/dL Low 11.8-15.4 [facility] Comment on above: Performed By: #### B MP, CBC #### [address] Lymphocytes (Bld) [#/Vol] 1.0 10*3/uL Normal 1.00-4.8 [facility] Comment on above: Performed By: #### B MP, CBC #### [address] Lymphocytes/100 WBC (Bld) 12.9 % Normal . [facility] Comment on above: Performed By: #### B MP, CBC #### [address] MCH (RBC) [Entitic mass] 31.9 pg Normal 24.7-34.3 [facility] Comment on above: Performed By: #### B MP, CBC #### [address] MCV (RBC) [Entitic vol] 91.3 fL Normal 80-100 [facility] Comment on above: Performed By: #### B MP, CBC #### [address] Mean Corpuscular HGB Conc 34.9 g/dL Normal 32.0-35.0 [facility] Comment on above: Performed By: #### B MP, CBC #### [address] Monocytes (Bld) [#/Vol] 1.1 10*3/uL High 0.0-0.8 [facility] Comment on above: Performed By: #### B MP, CBC #### [address] Monocytes/100 WBC (Bld) 13.3 % Normal . [facility] Comment on above: Performed By: #### B MP, CBC #### [address] Neutrophils (Bld) [#/Vol] 5.9 10*3/uL Normal 1.8-7.7 [facility] Comment on above: Performed By: #### B MP, CBC #### [address] Neutrophils/100 WBC (Bld) 73.2 % Normal . [facility] Comment on above: Performed By: #### B MP, CBC #### [address] NRBC% 0.0 /100{WBC} Normal 0-0.5 [facility] Comment on above: Performed By: #### B MP, CBC #### [address] Platelet mean volume (Bld) [Entitic vol] 8.2 fL Normal 6.3-10.7 [facility] Comment on above: Performed By: #### B MP, CBC #### [place] [address] [place] Platelets (Bld) [#/Vol] 182 10*3/uL Normal 150-450 [facility] Comment on above: Performed By: #### B MP, CBC #### [address] RBC (Bld) [#/Vol] 2.44 10*6/uL Low 3.60-5.00 [facility] Comment on above: Performed By: #### B MP, CBC #### [place] [address] [place] WBC (Bld) [#/Vol] 8.0 10*3/uL Normal 3.8-11.6 [facility] Comment on above: Performed By: #### B MP, CBC #### [facility] [address] [place] [address] Ferritinon 09-30-2022 Ferritin [Mass/Vol] 53.4 ng/mL Normal 11.0-306.8 [facility] Comment on above: Order Comment: Comme nt add on Result Comment: PERF ORMED BY: [place] [id number] PATHOLOGIST [employer]SEM[employer]ER CLARICE OSWALD M.D. Performed By: #### F ER, FE and TIBC #### [address] Ferritin [Mass/volume] in Se rum or PlasmaOrdered By: Mimi Artis on 09-30-2022 Ferritin [Mass/Vol] 53.4 ng/mL 11.0-306.8 [facility] Hemoglobin and Hematocriton 09-30-2022 Hematocrit (Bld) [Volume fraction] 25.5 % Low 34.0-46.4 [facility] Comment on above: Result Comment: PERF ORMED BY: [place] [id number] PATHOLOGIST [employer]OR [employer]SEM[employer]ER CLARICE OSWALD M.D. Performed By: #### F ER, FE and TIBC #### [facility] [address] [place] [address] Hemoglobin (Bld) [Mass/Vol] 8.6 g/dL Low 11.8-15.4 [facility] Comment on above: Performed By: #### F ER, FE and TIBC #### [facility] [address] [place] [address] Iron [Mass/volume] in Serum or PlasmaOrdered By: Mimi Artis on 09-30-2022 Iron [Mass/Vol] 20 ug/dL 50-212 [facility] Iron and TIBC Profileon 09-21 0 % Iron Saturation 7.0 % Low 20-50 [facility] Comment on above: Order Comment: Comme nt add on Performed By: #### F ER, FE and TIBC #### [facility] [address] Iron [Mass/Vol] 20 ug/dL Low 50-212 [facility] Comment on above: Order Comment: Comme nt add on Performed By: #### F ER, FE and TIBC #### [facility] [address] Total Iron Binding Capacity 286 ug/dL Normal 255-450 [facility] Comment on above: Order Comment: Comme nt add on Performed By: #### F ER, FE and TIBC #### [address] Transferrin [Mass/Vol] 204 mg/dL Normal 203-362 [facility] Comment on above: Order Comment: Comme nt add on Performed By: #### F ER, FE and TIBC #### [address] Iron binding capacity [Mass/ volume] in Serum or PlasmaOrdered By: Mimi Obika on 09-30-2022 Iron binding capacity [Mass/Vol] 286 ug/dL 255-450 [facility] Iron saturation [Mass Fracti on] in Serum or PlasmaOrdered By: Mimi Obika on 09-30-2022 Iron saturation [Mass fraction] 7.0 % 20-50 [facility] Transferrin [Mass/volume] in Serum or PlasmaOrdered By: Mimi Obika on 09-30-2022 Transferrin [Mass/Vol] 204 mg/dL 203-362 [facility] Basic Metabolic Panelon 030 Anion gap [Moles/Vol] 12.9 mmol/L Normal 6.0-15.0 [facility] Comment on above: Performed By: #### B MP, SCAN CBC #### [facility] [address] Calcium [Mass/Vol] 8.9 mg/dL Normal 8.6-10.3 [facility] Comment on above: Performed By: #### B MP, SCAN CBC #### [facility] [address] [place] [address] [place] Chloride [Moles/Vol] 108 mmol/L High 98-107 [facility] Comment on above: Performed By: #### B MP, SCAN CBC #### [facility] [address] CO2 [Moles/Vol] 21.4 mmol/L Normal 21.0-31.0 [facility] Comment on above: Performed By: #### B MP, SCAN CBC #### [facility] [address] Creatinine [Mass/Vol] 0.56 mg/dL Low 0.60-1.[address] [facility] Comment on above: Performed By: #### B MP, SCAN CBC #### [facility] [address] [place] [address] [place] Creatinine Clr Calc Pharmacy 35.59 [facility] Comment on above: Result Comment: PERF ORMED BY: [place] [id number] PATHOLOGIST [employer]SEM[employer]ER CLARICE OSWALD M.D. Performed By: #### B MP, SCAN CBC #### [facility] [address] [place] [address] [place] GFR/1.73 sq M.predicted MDRD (S/P/Bld) [Vol rate/Area] mL/min/{1.73_m2} [facility] Comment on above: Performed By: #### B MP, SCAN CBC #### [facility] [address] [place] [address] [place] Glucose [Mass/Vol] 118 mg/dL High 74-109 [facility] Comment on above: Result Comment: [place] Glucose Reference Range is dependent on time and content of last meal. Glucose of more than 200 mg/dL in a nonstressed, ambulatory subject supports the diagnosis of Diabetes Mellitus. ADA recommended reference range Performed By: #### B MP, SCAN CBC #### [facility] [address] [place] [address] [place] Potassium [Moles/Vol] 4.3 mmol/L Normal 3.5-5.[address] [facility] Comment on above: Performed By: #### B MP, SCAN CBC #### [facility] [address] Sodium [Moles/Vol] 138 mmol/L Normal 136-145 [facility] Comment on above: Performed By: #### B MP, SCAN CBC #### [facility] [address] [place] [address] [place] Urea nitrogen [Mass/Vol] 16 mg/dL Normal 7-25 [facility] Comment on above: Performed By: #### B MP, SCAN CBC #### [facility] [address] Platelet adequacy [Presence] in Blood by Light microscopyOrdered By: Mimi Artis on 09-29-2022 Platelets LM Ql (Bld) Normal Normal [facility] Platelet morphology finding [Identifier] in BloodOrdered By: Mimi Artis on 09-29-2022 Platelet morphology finding Nom (Bld) Normal Normal [facility] RBC morphologyOrdered By: Rosalba Artis on 09-29-2022 RBC morphology finding Nom (Bld) Normal Normal [facility] Scan and CBCon 09-29-2022 Basophils (Bld) [#/Vol] 0.0 10*3/uL Normal 0.0-0.2 [facility] Comment on above: Performed By: #### B MP, SCAN CBC #### [facility] [address] [place] [address] [place] Basophils/100 WBC (Bld) 0.1 % Normal . [facility] Comment on above: Performed By: #### B MP, SCAN CBC #### [facility] [address] [place] [address] [place] Eosinophils (Bld) [#/Vol] 0.0 10*3/uL Normal 0.0-0.45 [facility] Comment on above: Performed By: #### B MP, SCAN CBC #### [facility] [address] [place] [address] [place] Eosinophils/100 WBC (Bld) 0.0 % Normal . [facility] Comment on above: Performed By: #### B MP, SCAN CBC #### [facility] [address] Erythrocyte distribution width (RBC) [Ratio] 14.2 % Normal 11.9-15.3 [facility] Comment on above: Performed By: #### B MP, SCAN CBC #### [facility] [address] Hematocrit (Bld) [Volume fraction] 27.0 % Low 34.0-46.4 [facility] Comment on above: Performed By: #### B MP, SCAN CBC #### [facility] [address] Hemoglobin (Bld) [Mass/Vol] 9.1 g/dL Low 11.8-15.4 [facility] Comment on above: Performed By: #### B MP, SCAN CBC #### [facility] [address] [place] [address] Lymphocytes (Bld) [#/Vol] 0.9 10*3/uL Low 1.00-4.8 [facility] Comment on above: Performed By: #### B MP, SCAN CBC #### [facility] [address] [place] [address] [place] Lymphocytes/100 WBC (Bld) 7.1 % Normal . [facility] Comment on above: Performed By: #### B MP, SCAN CBC #### [facility] [address] [place] [address] [place] MCH (RBC) [Entitic mass] 30.9 pg Normal 24.7-34.3 [facility] Comment on above: Performed By: #### B MP, SCAN CBC #### [facility] [address] [place] [address] [place] MCV (RBC) [Entitic vol] 91.6 fL Normal 80-100 [facility] Comment on above: Performed By: #### B MP, SCAN CBC #### [facility] [address] [place] [address] Mean Corpuscular HGB Conc 33.7 g/dL Normal 32.0-35.0 [facility] Comment on above: Performed By: #### B MP, SCAN CBC #### [facility] [address] [place] [address] [place] Monocytes (Bld) [#/Vol] 1.7 10*3/uL High 0.0-0.8 [facility] Comment on above: Performed By: #### B MP, SCAN CBC #### [facility] [address] [place] [address] [place] Monocytes/100 WBC (Bld) 13.5 % Normal . [facility] Comment on above: Performed By: #### B MP, SCAN CBC #### [facility] [address] [place] [address] [place] Neutrophils (Bld) [#/Vol] 10.2 10*3/uL High 1.8-7.7 [facility] Comment on above: Performed By: #### B MP, SCAN CBC #### [facility] [address] Neutrophils/100 WBC (Bld) 79.3 % Normal . [facility] Comment on above: Performed By: #### B MP, SCAN CBC #### [facility] [address] [place] [address] [place] NRBC% 0.0 /100{WBC} Normal 0-0.5 [facility] Comment on above: Performed By: #### B MP, SCAN CBC #### [facility] [address] Platelet Estimate Normal Normal Normal [facility] Comment on above: Performed By: #### B MP, SCAN CBC #### [facility] [address] Platelet mean volume (Bld) [Entitic vol] 8.0 fL Normal 6.3-10.7 [facility] Comment on above: Performed By: #### B MP, SCAN CBC #### [facility] [address] Platelet Morphology Normal Normal Normal [facility] Comment on above: Result Comment: PERF ORMED BY: [facility] [address] [place] [address] PATHOLOGIST [employer]OR [employer]SEMBLER CLARICE OSWALD M.D. Performed By: #### B MP, SCAN CBC #### [facility] [address] Platelets (Bld) [#/Vol] 220 10*3/uL Normal 150-450 [facility] Comment on above: Performed By: #### B MP, SCAN CBC #### [facility] [address] RBC (Bld) [#/Vol] 2.95 10*6/uL Low 3.60-5.00 [facility] Comment on above: Performed By: #### B MP, SCAN CBC #### [facility] [address] RBC morphology finding Nom (Bld) Normal Normal Normal [facility] Comment on above: Performed By: #### B MP, SCAN CBC #### [facility] [address] WBC (Bld) [#/Vol] 12.9 10*3/uL High 3.8-11.6 [facility] Comment on above: Performed By: #### B MP, SCAN CBC #### [place] [address] [place] XR hip LT min 2V(w/wo pelvis )*on 09-29-2022 XR hip LT min 2V(w/wo pelvis)* [facility] [address] [place] [address] XRay Report Signed Patient: Annamaria Garcia MR#: [id number] : 1935 Acct:[id number] Age/Sex: 87 / F ADM Date: 09/28/22 Loc: Room: [address] [place] [address] Type: ADM IN Attending Dr: Adama Kothari [...] Angie Francisco M.D.09/29/2022 11:29 AM Dictation Location: [facility] Transcribed By: [facility] 09/29/22 112 Dictated By: Angie Francisco MD 09/29/22 112 Signed By: 09/29/22 1129 Normal [facility] ABO AND RH TYPEon 09-28-2022 ABO and Rh group Nom (Bld) ABO Rh Typing A Rh Positive Normal [facility] Comment on above: Performed By: #### C MP, CMADM #### [facility] [address] [address] [address] Nidhi Dawn Albumin Levelon 09-28-2022 Albumin [Mass/Vol] 4.0 g/dL Normal 3.5-5.7 [facility] Comment on above: Result Comment: PERF ORMED BY: [place] [id number] PATHOLOGIST COM[employer]OR ASSEMBLER CLARICE OSWALD M.D. Performed By: #### F ER, FE and TIBC #### [facility] [address] [place] [address] [place] Albumin [Mass/volume] in Ser um or Plasma by Bromocresol green (BCG) dye binding methoOrdered By: Bulmaro Moses on 09-28-2022 Albumin BCG dye [Mass/Vol] 4.0 g/dL 3.5-5.7 [facility] Basic Metabolic Panelon Anion gap [Moles/Vol] 10.8 mmol/L Normal 6.0-15.0 [facility] Comment on above: Performed By: #### F ER, FE and TIBC #### [facility] [address] [place] [address] [place] Calcium [Mass/Vol] 9.0 mg/dL Normal 8.6-10.3 [facility] Comment on above: Performed By: #### F ER, FE and TIBC #### [facility] [address] Chloride [Moles/Vol] 103 mmol/L Normal 98-107 [facility] Comment on above: Performed By: #### F ER, FE and TIBC #### [facility] [address] CO2 [Moles/Vol] 28.5 mmol/L Normal 21.0-31.0 [facility] Comment on above: Performed By: #### F ER, FE and TIBC #### [facility] [address] Creatinine [Mass/Vol] 0.40 mg/dL Low 0.60-1.[address] [facility] Comment on above: Performed By: #### F ER, FE and TIBC #### [facility] [address] [place] [address] [place] Creatinine Clr Calc Pharmacy 31.68 [facility] Comment on above: Result Comment: PERF ORMED BY: [place] [address] PATHOLOGIST COM[employer]OR ASSEMBLER CLARICE OSWALD M.D. Performed By: #### F ER, FE and TIBC #### [facility] [address] GFR/1.73 sq M.predicted MDRD (S/P/Bld) [Vol rate/Area] mL/min/{1.73_m2} [facility] Comment on above: Performed By: #### F ER, FE and TIBC #### [facility] [address] [place] [address] [place] Glucose [Mass/Vol] 143 mg/dL High 74-109 [facility] Comment on above: Result Comment: [place] Glucose Reference Range is dependent on time and content of last meal. Glucose of more than 200 mg/dL in a nonstressed, ambulatory subject supports the diagnosis of Diabetes Mellitus. ADA recommended reference range Performed By: #### F ER, FE and TIBC #### [facility] [address] Potassium [Moles/Vol] 3.3 mmol/L Low 3.5-5.[address] [facility] Comment on above: Performed By: #### F ER, FE and TIBC #### [facility] [address] Sodium [Moles/Vol] 139 mmol/L Normal 136-145 [facility] Comment on above: Performed By: #### F ER, FE and TIBC #### [facility] [address] Urea nitrogen [Mass/Vol] 8 mg/dL Normal 7-25 [facility] Comment on above: Performed By: #### F ER, FE and TIBC #### [facility] [address] ABD/PELVIS WO CONon 09-28 CT [...] by: RAVEN RENNER Date: 2022-09-27 22:38 Normal [facility] CT CSPINE WO CONon 3 CT [...] by: SOPHIE SINGLETON Date: 2022-09-27 22:42 Normal [facility] CT HEAD WO CONon 09-28-2022 CT [...] RAVEN RENNER Date: 2022-09-27 22:43 Normal [facility] CT LSPINE WO CONon 3 CT LSPINE [...] KANU BURK Date: 2022-09-27 22:42 Normal [facility] Complete Blood Count Auto Di ffon 09-28-2022 Basophils (Bld) [#/Vol] 0.0 10*3/uL Normal 0.0-0.2 [facility] Comment on above: Result Comment: PERF ORMED BY: [facility] [address] [place] [place] [address] PATHOLOGIST [employer]OR ASSEMBLER CLARICE OSWALD M.D. Performed By: #### F ER, FE and TIBC #### [facility] [address] Basophils/100 WBC (Bld) 0.0 % Normal . [facility] Comment on above: Performed By: #### F ER, FE and TIBC #### [facility] [address] Eosinophils (Bld) [#/Vol] 0.0 10*3/uL Normal 0.0-0.45 [facility] Comment on above: Performed By: #### F ER, FE and TIBC #### [address] Eosinophils/100 WBC (Bld) 0.0 % Normal . [facility] Comment on above: Performed By: #### F ER, FE and TIBC #### [address] Erythrocyte distribution width (RBC) [Ratio] 13.9 % Normal 11.9-15.3 [facility] Comment on above: Performed By: #### F ER, FE and TIBC #### [address] Hematocrit (Bld) [Volume fraction] 33.9 % Low 34.0-46.4 [facility] Comment on above: Performed By: #### F ER, FE and TIBC #### [address] Hemoglobin (Bld) [Mass/Vol] 11.5 g/dL Low 11.8-15.4 [facility] Comment on above: Performed By: #### F ER, FE and TIBC #### [place] [address] [place] Lymphocytes (Bld) [#/Vol] 0.6 10*3/uL Low 1.00-4.8 [facility] Comment on above: Performed By: #### F ER, FE and TIBC #### [address] Lymphocytes/100 WBC (Bld) 4.7 % Normal . [facility] Comment on above: Performed By: #### F ER, FE and TIBC #### [facility] [address] MCH (RBC) [Entitic mass] 30.8 pg Normal 24.7-34.3 [facility] Comment on above: Performed By: #### F ER, FE and TIBC #### [address] MCV (RBC) [Entitic vol] 90.8 fL Normal 80-100 [facility] Comment on above: Performed By: #### F ER, FE and TIBC #### [address] Mean Corpuscular HGB Conc 34.0 g/dL Normal 32.0-35.0 [facility] Comment on above: Performed By: #### F ER, FE and TIBC #### [address] Monocytes (Bld) [#/Vol] 0.9 10*3/uL High 0.0-0.8 [facility] Comment on above: Performed By: #### F ER, FE and TIBC #### [address] Monocytes/100 WBC (Bld) 7.4 % Normal . [facility] Comment on above: Performed By: #### F ER, FE and TIBC #### [address] Neutrophils (Bld) [#/Vol] 10.7 10*3/uL High 1.8-7.7 [facility] Comment on above: Performed By: #### F ER, FE and TIBC #### [address] Neutrophils/100 WBC (Bld) 87.9 % Normal . [facility] Comment on above: Performed By: #### F ER, FE and TIBC #### [address] NRBC% 0.1 /100{WBC} Normal 0-0.5 [facility] Comment on above: Performed By: #### F ER, FE and TIBC #### [facility] [address] Platelet mean volume (Bld) [Entitic vol] 8.0 fL Normal 6.3-10.7 [facility] Comment on above: Performed By: #### F ER, FE and TIBC #### [facility] [address] Platelets (Bld) [#/Vol] 253 10*3/uL Normal 150-450 [facility] Comment on above: Performed By: #### F ER, FE and TIBC #### [facility] [address] RBC (Bld) [#/Vol] 3.73 10*6/uL Normal 3.60-5.00 [facility] Comment on above: Performed By: #### F ER, FE and TIBC #### [facility] [address] WBC (Bld) [#/Vol] 12.2 10*3/uL High 3.8-11.6 [facility] Comment on above: Performed By: #### F ER, FE and TIBC #### [address] ECG 12 lead ECGon 09-28-2022 ECG 12 lead ECG [facility] [address] [place] [address] Electrocardiograph Report Signed Patient: Annamaria Garcia MR#: [id number] : 1935 Acct:[id number] Age/Sex: 87 / F ADM Date: 09/28/22 Loc: Room: [address] [place] [address] Type: ADM IN Attending Dr: Adama Kothari [...] Estee Knight MD 0 09/28/22 1508 Normal [facility] ER URINE PROFILEon 3 Bilirubin Ql (U) Negative Normal NEGATIVE [facility] Comment on above: Performed By: #### C MP, CMADM #### [facility] [address] [place] [address] Dr. Nidhi Dawn Clarity (U) CLEAR Normal CLEAR [facility] Comment on above: Performed By: #### C MP, CMADM #### [facility] [address] [place] [address] Dr. Nidhi Dawn Color (U) LT. YELLOW Normal YELLOW [facility] Comment on above: Performed By: #### C DONA, CMADM #### [facility] [address] [place] [address] Dr. Nidhi TERRAZAS A micrscopic examina tion will be performed if indicated. Normal [facility] Comment on above: Performed By: #### C MP, CMADM #### [facility] [address] [place] [address] Dr. Nidhi Dawn Glucose Ql (U) Negative Normal NEGATIVE [facility] Comment on above: Performed By: #### C MP, CMADM #### [facility] [address] [place] [address] Dr. Nidhi Dawn Hemoglobin Ql (U) Negative Normal NEGATIVE [facility] Comment on above: Performed By: #### C MP, CMADM #### [facility] [address] [place] [address] Dr. Nidhi Dawn Ketones Ql (U) 40 mg/dl Abnormal NEGATIVE [facility] Comment on above: Performed By: #### C MP, CMADM #### [facility] [address] [place] [address] Dr. Nidhi Dawn LEUKOCYTES Negative Normal NEGATIVE [facility] Comment on above: Performed By: #### C MP, CMADM #### [facility] [address] [place] [address] Dr. Nidhi Dawn Nitrite Ql (U) Negative Normal NEGATIVE [facility] Comment on above: Performed By: #### C DONA, CMADM #### [facility] [address] [place] [address] Dr. Nidhi Dawn pH (U) 7.0 [pH] Normal 5-9 [facility] Comment on above: Performed By: #### C DONA, CMADM #### [facility] [address] [place] [address] Dr. Nidhi Dawn SPEC GRAVITY 1.010 Normal 1.005-<=1.0 25 [facility] Comment on above: Performed By: #### C DONA, LEONCIODM #### [facility] [address] [place] [address] Dr. Nidhi Dawn UA PROTEIN TRACE Normal NEGATIVE/ TRACE [facility] Comment on above: Performed By: #### C DONA, LEONCIODM #### [facility] [address] [place] [address] Dr. Nidhi Dawn UR MICRO IND NOT INDICATED Normal [facility] Comment on above: Performed By: #### C DONA, LEONCIODM #### [facility] [address] [place] [address] Dr. Nidhi Dawn Urobilinogen Qn (U) 0.2 {Lawrence'U}/dL Normal 0.2 - 1. 0 [facility] Comment on above: Performed By: #### C DONA, CMADM #### [facility] [address] [place] [address] Dr. Nidhi Dawn Glucose Glucometer (dC) [M ass/Vol]Ordered By: Juliet Green on 09-28-2022 Glucose [Mass/Vol] 107 mg/dL [facility] Comment on above: Random Glucose Refer ence Range is dependent on time and content of last meal. Glucose of more than 200 mg/dL in a nonstressed, ambulatory subject supports the diagnosis of Diabetes Mellitus. Glucose Poct Glucometerson 0 09-28-2022 Glucose [Mass/Vol] 107 mg/dL Normal [facility] Comment on above: Result Comment: [place] Glucose Reference Range is dependent on time and content of last meal. Glucose of more than 200 mg/dL in a nonstressed, ambulatory subject supports the diagnosis of Diabetes Mellitus. PERFORMED BY: [place] [id number] PATHOLOGIST COMPRESSOR ASSEMBLER CLARICE OSWALD M.D. Performed By: #### G LULS #### Point of Care testing , Laboratory - CoagulationOrde red By: Juliet Green on 09-28-2022 PT Coag (PPP) [Time] 13.1 s 9.0-12.9 [facility] Magnesiumon 09-28-2022 Magnesium [Mass/Vol] 1.9 mg/dL Normal 1.9-2.7 [facility] Comment on above: Order Comment: Comme nt add Result Comment: PERF ORMED BY: [place] [id number] PATHOLOGIST COMPRESSOR ASSEMBLER CLARICE OSWALD M.D. Performed By: #### M G #### [address] Magnesium [Mass/volume] in S enma or PlasmaOrdered By: Juliet Green on 09-28-2022 Magnesium [Mass/Vol] 1.9 mg/dL 1.9-2.7 [facility] Platelet poor plasma interna tional normalized ratio (INR) by coagulation assay (relatOrdered By: Juliet Green on 09-28-2022 INR Coag (PPP) [Relative time] 1.1 {INR} [facility] Comment on above: INR Therapeutic [...] Coag (PPP) [Relative time] 1.1 {INR} Normal [facility] Comment on above: Result Comment: [...] heart valves: 3 - 4.5 PERFORMED BY: [place] [id number] PATHOLOGIST COMPRESSOR ASSEMBLER CLARICE OSWALD M.D. Performed By: #### F ER, FE and TIBC #### [facility] [address] [place] [address] PT Coag (PPP) [Time] 13.1 s High 9.0-12.9 [facility] Comment on above: Performed By: #### F ER, FE and TIBC #### [facility] [address] [place] [address] Vitamin B12on 09-28-2022 Cobalamin (Vitamin B12) [Mass/Vol] 202 pg/mL Normal 180-914 [facility] Comment on above: Result Comment: PERF ORMED BY: [place] [id number] PATHOLOGIST COMPRESSOR ASSEMBLER CLARICE OSWALD M.D. Performed By: #### B 12 #### [facility] [address] [place] [address] Vitamin B12 ser/plasOrdered By: Mimi Artis on 09-28-2022 Cobalamin (Vitamin B12) [Mass/Vol] 202 pg/mL 180-914 [facility] Vitamin D 25 Hydroxy,Tot+D2+ D3on 09-28-2022 Vitamin D 25 OH (LC) 33 ng/mL Normal . [facility] Comment on above: Result Comment: Refe rence Range: All Ages: Target levels 30 - 100 Performed By: #### F ER, FE and TIBC #### [facility] [address] [place] [address] Vitamin D-2 <1.0 Normal . [facility] Comment on above: Result Comment: This test was developed and its performance characteristics determined by [facility]. It has not been cleared or approved by the Food and Drug Administration. Performed By: #### F ER, FE and TIBC #### [facility] [address] [place] [address] Vitamin D-3 33 ng/mL Normal . [facility] Comment on above: Result Comment: This test was developed and its performance characteristics determined by [facility]. It has not been cleared or approved by the Food and Drug Administration. Performed at: [facility] [address] [place] [address] [id number] Redevelopment Manager: Avel Dempsey MD, Phone: [phone] PERFORMED BY: [place] [id number] PATHOLOGIST COMPRESSOR ASSEMBLER CLARICE OSWALD M.D. Performed By: #### F ER, FE and TIBC #### [address] XR femur LT 2V*on 09-28-2022 XR femur LT 2V* [facility] [place] [address] [place] [address] XRay Report Signed Patient: Annamaria Garcia MR#: [id number] : 1935 Acct:[id number] Age/Sex: 87 / F ADM Date: 09/28/22 Loc: Room: 0C6228-8 Type: ADM IN Attending Dr: Juliet Green MD Copies to: MD Juliet Lennon MD Ordering Provider: Bulmaro Moses MD Date of Service: 09/28/22 XR/XR femur LT 2V*: left fem head fx ([id number]) XR/XR low pelvis w/LT x-table hip: left [...] fractures or dislocation are seen within the [id number]. There is mild degenerative change at the knee with medial tibiofemoral joint compartment narrowing and minor tricompartment marginal spurring. There are no focal soft tissue findings. IMPRESSION: NO ACUTE BONY INJURY WITHIN THE [id number]. Impression dictated by: Angie Francisco M.D.09/28/2022 7:21 AM Dictation Location: [place] [address] Transcribed By: [facility] 09/28/22720 Dictated By: Angie Francisco MD 09/28/22 0716 Signed By: 09/28/22 0721 [facility] CARDIAC CELESTINO ADMITon 023 CK [Catalytic activity/Vol] 96 U/L Normal 26-192 [facility] Comment on above: Performed By: #### C HELENA CARCAMO #### [facility] [address] [address] [address] Nidhi Dawn CK.MB [Mass/Vol] 2.59 ng/mL Normal <=3.60 [facility] Comment on above: Performed By: #### C HELENA CARCAMO #### [facility] [address] [place], [place] [address] Dr. Nidhi Dawn HSTROP 8.6 pg/mL Normal 4.0-51.3 [facility] Comment on above: Result Comment: CUT- OFF POINTS HAVE BEEN ESTABLISHED BASED ON THE FOURTH UNIVERSAL DEFINITIONS OF MYOCARDIAL INFARCTION. THE UPPER REFERENCE LIMIT (URL) OF TROPONIN, DEFINED THE 99TH PERCENTILE OF cTnI DISTRIBUTION IN A REFERENCE POPULATION, HAS BEEN CONFIRMED THE DECISION THRESHOLD FOR OR DIAGNOSIS. Performed By: #### C DONA, LEONCIODM #### [facility] [address] [place] [address] Dr. Nidhi Dawn BOBBY 75 ng/mL Normal 9-82 [facility] Comment on above: Performed By: #### C MP, LEONCIODM #### [facility] [address] [place] [address] Dr. Nidhi Dawn CBC AUTO DIFFon 09-27-2022 BASO # 0.0 103/ul Normal 0.0-0.1 [facility] Comment on above: Performed By: #### C BC #### [facility] [address] [place] [address] Dr. Nidhi Dawn Basophils/100 WBC (Bld) 0.2 % Normal 0.2-2.0 [facility] Comment on above: Performed By: #### C BC #### [facility] [address] [place] [address] Dr. Nidhi Dawn EO # 0.0 103/ul Normal 0.0-0.7 [facility] Comment on above: Performed By: #### C BC #### [facility] [address] [place] [address] Dr. Nidhi Dawn Eosinophils/100 WBC (Bld) 0.1 % Critically low 0.9-7.0 [facility] Comment on above: Performed By: #### C BC #### [facility] [address] [place] [address] Dr. Nidhi Dawn Erythrocyte distribution width (RBC) [Ratio] 13.2 % Normal 11.0-15.0 [facility] Comment on above: Performed By: #### C BC #### [facility] [address] [place] [address] Dr. Nidhi Dawn Hematocrit (Bld) [Volume fraction] 34.6 % Critically low 36.0-48.0 [facility] Comment on above: Performed By: #### C BC #### [facility] [address] [place] [address] Dr. Nidhi Dawn Hemoglobin (Bld) [Mass/Vol] 11.7 g/dL Critically low 12.0-16.0 [facility] Comment on above: Performed By: #### C BC #### [facility] [address] [place] [address] Dr. Nidhi Dawn IG # 0.06 10e3/ul Critically high 0.00-0.03 [facility] Comment on above: Performed By: #### C BC #### [facility] [address] [place] [address] Dr. Nidhi Dawn IG % 0.4 % Normal 0.0-0.5 [facility] Comment on above: Performed By: #### C BC #### [facility] [address] [place] [address] Dr. Nidhi Dawn LYMPH # 1.1 103/ul Critically low 1.2-3.8 [facility] Comment on above: Performed By: #### C BC #### [facility] [address] [place] [address] Dr. Nidhi Dawn Lymphocytes/100 WBC (Bld) 7.0 % Critically low 20.5-60.0 [facility] Comment on above: Performed By: #### C BC #### [facility] [address] [place] [address] Dr. Nidhi Dawn MANUAL DIFF REQ NO Normal [facility] Comment on above: Performed By: #### C BC #### [facility] [address] [place] [address] Dr. Nidhi Dawn MCH (RBC) [Entitic mass] 31.0 pg Normal 26.7-34.0 [facility] Comment on above: Performed By: #### C BC #### [facility] [address] [place] [address] Dr. Nidhi Dawn MCHC (RBC) [Mass/Vol] 33.8 g/dL Normal 29.9-35.2 [facility] Comment on above: Performed By: #### C BC #### [facility] [address] [place] [id number] Nidhi Dawn MCV (RBC) [Entitic vol] 91.8 fL Normal 81.0-99.0 [facility] Comment on above: Performed By: #### C BC #### [facility] [address] [place] [address] [address] Nidhi Dawn MONO # 1.1 103/ul Critically high 0.3-0.8 [facility] Comment on above: Performed By: #### C BC #### [facility] [address] [place] [address] Dr. Nidhi Dawn Monocytes/100 WBC (Bld) 7.0 % Normal 1.7-12.0 [facility] Comment on above: Performed By: #### C BC #### [facility] [address] [place] [address] Dr. Nidhi Dawn NEUT # 13.1 103/ul Critically high 1.4-6.5 [facility] Comment on above: Performed By: #### C BC #### [facility] [address] [place] [address] Dr. Nidhi Dawn Neutrophils/100 WBC (Bld) 85.3 % Critically high 43.0-75.0 [facility] Comment on above: Performed By: #### C BC #### [facility] [address] [place] [address] Dr. Nidhi Dawn Platelet mean volume (Bld) [Entitic vol] 9.1 fL Critically low 9.5-13.5 [facility] Comment on above: Performed By: #### C BC #### [facility] [address] [place] [address] Dr. Nidhi Dawn PLT 274 103/ul Normal 150-450 [facility] Comment on above: Performed By: #### C BC #### [facility] [address] [place] [address] Dr. Nidhi Dawn RBC 3.77 106/ul Critically low 4.20-5.40 [facility] Comment on above: Performed By: #### C BC #### [facility] [address] [place] [address] Dr. Nidhi Dawn WBC 15.4 103/ul Critically high 4.0-11.0 [facility] Comment on above: Performed By: #### C BC #### [facility] [address] [place] [address] Dr. Nidhi Dawn MAGNESIUMon 09-27-2022 Magnesium [Mass/Vol] 1.6 mg/dL Critically low 1.8-2.4 [facility] Comment on above: Performed By: #### C BC #### [facility] [address] [place] [address] Dr. Nidhi Dawn PROF 14(COMP METB)on 023 Albumin [Mass/Vol] 3.6 g/dL Normal 3.4-5.0 [facility] Comment on above: Performed By: #### C LEONCIO CARCAMODM #### [facility] [address] [place] [address] Dr. Nidhi Dawn Albumin/Globulin [Mass ratio] 1.2 {ratio} Normal [facility] Comment on above: Performed By: #### C DONA CMADM #### [facility] [address] [place] [address] Dr. Nidhi Dawn ALP [Catalytic activity/Vol] 60 U/L Normal 46-116 [facility] Comment on above: Performed By: #### C DONA, CMADM #### [facility] [address] [place] [address] Dr. Nidhi Dawn ALT [Catalytic activity/Vol] 18 U/L Normal 14-59 [facility] Comment on above: Performed By: #### C DONA, CMADM #### [facility] [address] [place] [address] Dr. Nidhi Dawn Anion gap [Moles/Vol] 9.3 mmol/L Normal [facility] Comment on above: Performed By: #### C DONA, CMADM #### [facility] [address] [place] [address] Dr. Nidhi Dawn AST [Catalytic activity/Vol] 19 U/L Normal 15-37 [facility] Comment on above: Performed By: #### C DONA, CMADM #### [facility] [address] [place] [address] [address] Nidhi Dawn Bilirubin [Mass/Vol] 0.4 mg/dL Normal 0.2-1.0 [facility] Comment on above: Performed By: #### C MP, CMADM #### [facility] [address] [place] [address] [address] Nidhi Dawn Calcium [Mass/Vol] 8.8 mg/dL Normal 8.5-10.1 [facility] Comment on above: Performed By: #### C MP, CMADM #### [facility] [address] [address] [address] Nidhi Dawn Chloride [Moles/Vol] 104 mmol/L Normal 98-107 [facility] Comment on above: Performed By: #### C DONA, CMADM #### [facility] [address] [place] [address] Dr. Nidhi Dawn CO2 [Moles/Vol] 30.6 mmol/L Normal 21.0-32.0 [facility] Comment on above: Performed By: #### C DONA, CMADM #### [facility] [address] [place] [address] [address] Nidhi Dawn Creatinine [Mass/Vol] 0.43 mg/dL Critically low 0.55-1.02 [facility] Comment on above: Performed By: #### C DONA, CMADM #### [facility] [address] [place] [address] Dr. Nidhi Dawn EGFR-AF TRINIDADIAN >60 Normal >=60 [facility] Comment on above: Performed By: #### C MP, CMADM #### [facility] [address] [place] [address] Dr. Nidhi Dawn EGFR-NON AF TRINIDADIAN >60 Normal >=60 [facility] Comment on above: Performed By: #### C DONA, CMADM #### [facility] [address] [place] [address] [address] Nidhi Dawn Globulin (S) [Mass/Vol] 3.0 g/dL Normal [facility] Comment on above: Performed By: #### C DONA, CMADM #### [facility] [address] [place] [address] [address] Nidhi Dawn Glucose [Mass/Vol] 152 mg/dL Critically high 74-106 [facility] Comment on above: Performed By: #### C MP, CMADM #### [facility] [address] [place] [address] [address] Nidhi Dawn Potassium [Moles/Vol] 2.9 mmol/L Critically low 3.5-5.1 [facility] Comment on above: Performed By: #### C MP, CMADM #### [facility] [address] [place] [address] [address] Nidhi Dawn Protein [Mass/Vol] 6.6 g/dL Normal 6.4-8.2 [facility] Comment on above: Performed By: #### C MP, CMADM #### [facility] [address] [place] [address] [address] Nidhi Dawn Sodium [Moles/Vol] 140 mmol/L Normal 136-145 [facility] Comment on above: Performed By: #### C MP, CMADM #### [facility] [address] [place] [address] [address] Nidhi Dawn Urea nitrogen [Mass/Vol] 5.0 mg/dL Critically low 7.0-18.0 [facility] Comment on above: Performed By: #### C MP, CMADM #### [facility] [address] [address] [address] Nidhi Dawn Urea nitrogen/Creatinine [Mass ratio] 11.6 mg/mg Normal [facility] Comment on above: Performed By: #### C MP, CMADM #### [facility] [address] [place] [address] PELVIS WO CONon [...] TAYLOR PENA Date: 2022-05-02 16:39 Normal [facility] T4 LABCORPon 04-05-2022 T4 [Mass/Vol] 6.9 ug/dL Normal 4.5-12.0 [facility] Comment on above: Performed By: #### C BC #### [facility] [address] [address] [address] Nidhi Dawn CBC AUTO DIFFon 04-04-2022 BASO # 0.0 103/ul Normal 0.0-0.1 [facility] Comment on above: Performed By: #### C BC #### [facility] [address] [address] [address] Nidhi Dawn Basophils/100 WBC (Bld) 0.4 % Normal 0.2-2.0 [facility] Comment on above: Performed By: #### C BC #### [facility] [address] [place] [address] Dr. Nidhi Dawn EO # 0.2 103/ul Normal 0.0-0.7 [facility] Comment on above: Performed By: #### C BC #### [facility] [address] [place] [address] Dr. Nidhi Dawn Eosinophils/100 WBC (Bld) 3.1 % Normal 0.9-7.0 [facility] Comment on above: Performed By: #### C BC #### [facility] [address] [place] [address] Dr. Nidhi Dawn Erythrocyte distribution width (RBC) [Ratio] 13.6 % Normal 11.0-15.0 [facility] Comment on above: Performed By: #### C BC #### [facility] [address] [place] [address] Dr. Nidhi Dawn Hematocrit (Bld) [Volume fraction] 30.8 % Critically low 36.0-48.0 [facility] Comment on above: Performed By: #### C BC #### [facility] [address] [place] [address] Dr. Nidhi Dawn Hemoglobin (Bld) [Mass/Vol] 10.3 g/dL Critically low 12.0-16.0 [facility] Comment on above: Performed By: #### C BC #### [facility] [address] [place] [address] Dr. Nidhi Dawn IG # 0.04 10e3/ul Critically high 0.00-0.03 [facility] Comment on above: Performed By: #### C BC #### [facility] [address] [place] [address] Dr. Nidhi Dawn IG % 0.6 % Critically high 0.0-0.5 [facility] Comment on above: Performed By: #### C BC #### [facility] [address] [place] [address] Dr. Nidhi Dawn LYMPH # 1.3 103/ul Normal 1.2-3.8 [facility] Comment on above: Performed By: #### C BC #### [facility] [address] [place] [address] Dr. Nidhi Dawn Lymphocytes/100 WBC (Bld) 18.3 % Critically low 20.5-60.0 [facility] Comment on above: Performed By: #### C BC #### [facility] [address] [place] [address] Dr. Nidhi Dawn MANUAL DIFF REQ NO Normal [facility] Comment on above: Performed By: #### C BC #### [facility] [address] [place] [address] Dr. Nidhi Dawn MCH (RBC) [Entitic mass] 31.0 pg Normal 26.7-34.0 [facility] Comment on above: Performed By: #### C BC #### [facility] [address] [place] [address] Dr. Nidhi Dawn MCHC (RBC) [Mass/Vol] 33.4 g/dL Normal 29.9-35.2 [facility] Comment on above: Performed By: #### C BC #### [facility] [address] [place] [address] Dr. Nidhi Dawn MCV (RBC) [Entitic vol] 92.8 fL Normal 81.0-99.0 [facility] Comment on above: Performed By: #### C BC #### [facility] [address] [place] [address] Dr. Nidhi Dawn MONO # 1.0 103/ul Critically high 0.3-0.8 [facility] Comment on above: Performed By: #### C BC #### [facility] [address] [place] [address] Dr. Nidhi Dawn Monocytes/100 WBC (Bld) 13.7 % Critically high 1.7-12.0 [facility] Comment on above: Performed By: #### C BC #### [facility] [address] [place] [address] Dr. Nidhi Dawn NEUT # 4.5 103/ul Normal 1.4-6.5 [facility] Comment on above: Performed By: #### C BC #### [facility] [address] [place] [address] Dr. Nidhi Dawn Neutrophils/100 WBC (Bld) 63.9 % Normal 43.0-75.0 [facility] Comment on above: Performed By: #### C BC #### [facility] [address] [place] [address] Dr. Nidhi Dawn Platelet mean volume (Bld) [Entitic vol] 9.6 fL Normal 9.5-13.5 [facility] Comment on above: Performed By: #### C BC #### [facility] [address] [place] [address] Dr. Nidhi Dawn PLT 228 103/ul Normal 150-450 [facility] Comment on above: Performed By: #### C BC #### [facility] [address] [place] [address] Dr. Nidhi Dawn RBC 3.32 106/ul Critically low 4.20-5.40 [facility] Comment on above: Performed By: #### C BC #### [facility] [address] [place] [address] Dr. Nidhi Dawn WBC 7.0 103/ul Normal 4.0-11.0 [facility] Comment on above: Performed By: #### C BC #### [facility] Laboratory [address] [place] [address] Dr. Nidhi Dawn CULTURE URINEon 04-04-2022 CULTURE [...] Trimethoprim/Sulfamethoxaz ole <=20 S F Normal [facility] Comment on above: Performed By: #### C HELENA CARCAMO #### [facility] Laboratory [address] [place] [address] Dr. Nidhi Dawn PROF CHEM 8 ([facility])on Anion gap [Moles/Vol] 8.8 mmol/L Normal [facility] Comment on above: Performed By: #### C HELENA CARCAMO #### [facility] Laboratory [address] [place] [address] Dr. Nidhi Dawn Calcium [Mass/Vol] 8.7 mg/dL Normal 8.5-10.1 [facility] Comment on above: Performed By: #### C HELENA CARCAMO #### [facility] [address] [place] [address] Dr. Nidhi Dawn Chloride [Moles/Vol] 101 mmol/L Normal 98-107 [facility] Comment on above: Performed By: #### C HELENA CARCAMO #### [facility] [address] [place] [address] Dr. Nidhi Dawn CO2 [Moles/Vol] 29.6 mmol/L Normal 21.0-32.0 [facility] Comment on above: Performed By: #### C HELENA CARCAMO #### [facility] [address] [place] [address] Dr. Nidhi Dawn Creatinine [Mass/Vol] 0.56 mg/dL Normal 0.55-1.02 [facility] Comment on above: Performed By: #### C HELENA CARCAMO #### [facility] [address] [address] [address] Nidhi Dawn EGFR-AF TRINIDADIAN >60 Normal >=60 [facility] Comment on above: Performed By: #### C HELENA CARCAMO #### [facility] [address] [address] [address] Nidhi Dawn EGFR-NON AF TRINIDADIAN >60 Normal >=60 [facility] Comment on above: Performed By: #### C HELENA CARCAMO #### [facility] [address] [address] [address] Nidhi Dawn Glucose [Mass/Vol] 106 mg/dL Normal 74-106 [facility] Comment on above: Performed By: #### C HELENA CARCAMO #### [facility] [address] [place] [address] Dr. Nidhi Dawn Potassium [Moles/Vol] 3.4 mmol/L Critically low 3.5-5.1 [facility] Comment on above: Performed By: #### C HELENA CARCAMO #### [facility] [address] [place] [address] Dr. Nidhi Dawn Sodium [Moles/Vol] 136 mmol/L Normal 136-145 [facility] Comment on above: Performed By: #### C HELENA CARCAMO #### [facility] [address] [place] [address] Dr. Nidhi Dawn Urea nitrogen [Mass/Vol] 10.0 mg/dL Normal 7.0-18.0 [facility] Comment on above: Performed By: #### C HELENA CARCAMO #### [facility] [address] [place] [address] Dr. Nidhi Dawn Urea nitrogen/Creatinine [Mass ratio] 17.9 mg/mg Normal [facility] Comment on above: Performed By: #### C HELENA CARCAMO #### [facility] [address] [place] [address] Dr. Nidhi Dawn CBC AUTO DIFFon 04-03-2022 BASO # 0.0 103/ul Normal 0.0-0.1 [facility] Comment on above: Performed By: #### C BC #### [facility] [address] [place] [address] Dr. Nidhi Dawn Basophils/100 WBC (Bld) 0.4 % Normal 0.2-2.0 [facility] Comment on above: Performed By: #### C BC #### [facility] [address] [place] [address] Dr. Nidhi Dawn EO # 0.1 103/ul Normal 0.0-0.7 [facility] Comment on above: Performed By: #### C BC #### [facility] [address] [place] [address] Dr. Nidhi Dawn Eosinophils/100 WBC (Bld) 1.0 % Normal 0.9-7.0 [facility] Comment on above: Performed By: #### C BC #### [facility] [address] [place] [address] Dr. Nidhi Danw Erythrocyte distribution width (RBC) [Ratio] 13.6 % Normal 11.0-15.0 [facility] Comment on above: Performed By: #### C BC #### [facility] [address] [place] [address] Dr. Nidhi Dawn Hematocrit (Bld) [Volume fraction] 28.4 % Critically low 36.0-48.0 [facility] Comment on above: Performed By: #### C BC #### [facility] [address] [place] [address] Dr. Nidhi Dawn Hemoglobin (Bld) [Mass/Vol] 9.2 g/dL Critically low 12.0-16.0 [facility] Comment on above: Performed By: #### C BC #### [facility] [address] [place] [address] Dr. Nidhi Dawn IG # 0.04 10e3/ul Critically high 0.00-0.03 [facility] Comment on above: Performed By: #### C BC #### [facility] [address] [place] [address] Dr. Nidhi Dawn IG % 0.5 % Normal 0.0-0.5 [facility] Comment on above: Performed By: #### C BC #### [facility] [address] [place] [address] Dr. Nidhi Dawn LYMPH # 1.1 103/ul Critically low 1.2-3.8 [facility] Comment on above: Performed By: #### C BC #### [facility] [address] [place] [address] Dr. Nidhi Dawn Lymphocytes/100 WBC (Bld) 13.6 % Critically low 20.5-60.0 [facility] Comment on above: Performed By: #### C BC #### [facility] [address] [place] [address] Dr. Nidhi Dawn MANUAL DIFF REQ NO Normal [facility] Comment on above: Performed By: #### C BC #### [facility] [address] [place] [address] Dr. Nidhi Dawn MCH (RBC) [Entitic mass] 30.0 pg Normal 26.7-34.0 [facility] Comment on above: Performed By: #### C BC #### [facility] [address] [place] [address] Dr. Nidhi Dawn MCHC (RBC) [Mass/Vol] 32.4 g/dL Normal 29.9-35.2 [facility] Comment on above: Performed By: #### C BC #### [facility] [address] [place] [address] Dr. Nidhi Dawn MCV (RBC) [Entitic vol] 92.5 fL Normal 81.0-99.0 [facility] Comment on above: Performed By: #### C BC #### [facility] [address] [place] [address] Dr. Nidhi Dawn MONO # 0.9 103/ul Critically high 0.3-0.8 [facility] Comment on above: Performed By: #### C BC #### [facility] [address] [place] [address] Dr. Nidhi Dawn Monocytes/100 WBC (Bld) 12.1 % Critically high 1.7-12.0 [facility] Comment on above: Performed By: #### C BC #### [facility] [address] [place] [address] Dr. Nidhi Dawn NEUT # 5.7 103/ul Normal 1.4-6.5 [facility] Comment on above: Performed By: #### C BC #### [facility] [address] [place] [address] Dr. Nidhi Dawn Neutrophils/100 WBC (Bld) 72.4 % Normal 43.0-75.0 [facility] Comment on above: Performed By: #### C BC #### [facility] [address] [place] [address] Dr. Nidhi Dawn Platelet mean volume (Bld) [Entitic vol] 10.1 fL Normal 9.5-13.5 [facility] Comment on above: Performed By: #### C BC #### [facility] [address] [place] [address] Dr. Nidhi aDwn PLT 174 103/ul Normal 150-450 [facility] Comment on above: Performed By: #### C BC #### [facility] [address] [place] [address] Dr. Nidhi aDwn RBC 3.07 106/ul Critically low 4.20-5.40 [facility] Comment on above: Performed By: #### C BC #### [facility] [address] [place] [address] Dr. Nidhi Dawn WBC 7.8 103/ul Normal 4.0-11.0 [facility] Comment on above: Performed By: #### C BC #### [facility] [address] [place] [address] Dr. Nidhi Dawn PROF CHEM 8 (BAS METB)on Anion gap [Moles/Vol] 11.2 mmol/L Normal [facility] Comment on above: Performed By: #### B MP #### [facility] [address] [place] [address] Dr. Nidhi Dawn Calcium [Mass/Vol] 8.4 mg/dL Critically low 8.5-10.1 [facility] Comment on above: Performed By: #### B MP #### [facility] [address] [place] [address] Dr. Nidhi Dawn Chloride [Moles/Vol] 100 mmol/L Normal 98-107 [facility] Comment on above: Performed By: #### B MP #### [facility] [address] [address] [address] Nidhi Dawn CO2 [Moles/Vol] 27.4 mmol/L Normal 21.0-32.0 [facility] Comment on above: Performed By: #### B MP #### [facility] [address] [address] [address] Nidhi Dawn Creatinine [Mass/Vol] 0.56 mg/dL Normal 0.55-1.02 [facility] Comment on above: Performed By: #### B MP #### [facility] [address] [place] [address] Dr. Nidhi Dawn EGFR-AF TRINIDADIAN >60 Normal >=60 [facility] Comment on above: Performed By: #### B MP #### [facility] [address] [address] [address] Nidhi Dawn EGFR-NON AF TRINIDADIAN >60 Normal >=60 [facility] Comment on above: Performed By: #### B MP #### [facility] [address] [address] [address] Nidhi Dawn Glucose [Mass/Vol] 113 mg/dL Critically high 74-106 [facility] Comment on above: Performed By: #### B MP #### [facility] [address] [address] [address] Nidhi Dawn Potassium [Moles/Vol] 3.6 mmol/L Normal 3.5-5.1 [facility] Comment on above: Performed By: #### B MP #### [facility] [address] [address] [address] Nidhi Dawn Sodium [Moles/Vol] 135 mmol/L Critically low 136-145 [facility] Comment on above: Performed By: #### B MP #### [facility] [address] [place] [address] Dr. Nidhi Dawn Urea nitrogen [Mass/Vol] 14.0 mg/dL Normal 7.0-18.0 [facility] Comment on above: Performed By: #### B MP #### [facility] [address] [address] [address] Nidhi Dawn Urea nitrogen/Creatinine [Mass ratio] 25.0 mg/mg Normal [facility] Comment on above: Performed By: #### B MP #### [facility] [address] [place] [address] Dr. Nidhi Dawn CBC AUTO DIFFon 04-02-2022 BASO # 0.0 103/ul Normal 0.0-0.1 [facility] Comment on above: Performed By: #### C BC #### [facility] [address] [place] [address] Dr. Nidhi Dawn Basophils/100 WBC (Bld) 0.3 % Normal 0.2-2.0 [facility] Comment on above: Performed By: #### C BC #### [facility] [address] [place] [address] Dr. Nidhi Dawn EO # 0.1 103/ul Normal 0.0-0.7 [facility] Comment on above: Performed By: #### C BC #### [facility] [address] [place] [address] Dr. Nidhi Dawn Eosinophils/100 WBC (Bld) 0.8 % Critically low 0.9-7.0 [facility] Comment on above: Performed By: #### C BC #### [facility] [address] [place] [address] Dr. Nidhi Dawn Erythrocyte distribution width (RBC) [Ratio] 13.8 % Normal 11.0-15.0 [facility] Comment on above: Performed By: #### C BC #### [facility] [address] [place] [address] Dr. Nidhi Dawn Hematocrit (Bld) [Volume fraction] 30.1 % Critically low 36.0-48.0 [facility] Comment on above: Performed By: #### C BC #### [facility] [address] [place] [address] Dr. Nidhi Dawn Hemoglobin (Bld) [Mass/Vol] 10.1 g/dL Critically low 12.0-16.0 [facility] Comment on above: Performed By: #### C BC #### [facility] [address] [place] [address] Dr. Nidhi Dawn IG # 0.03 10e3/ul Normal 0.00-0.03 [facility] Comment on above: Performed By: #### C BC #### [facility] [address] [place] [address] Dr. Nidhi Dawn IG % 0.3 % Normal 0.0-0.5 [facility] Comment on above: Performed By: #### C BC #### [facility] [address] [place] [address] Dr. Nidhi Dawn LYMPH # 1.0 103/ul Critically low 1.2-3.8 [facility] Comment on above: Performed By: #### C BC #### [facility] [address] [place] [address] Dr. Nidhi Dawn Lymphocytes/100 WBC (Bld) 10.6 % Critically low 20.5-60.0 [facility] Comment on above: Performed By: #### C BC #### [facility] [address] [place] [address] Dr. Nidhi Dawn MANUAL DIFF REQ NO Normal [facility] Comment on above: Performed By: #### C BC #### [facility] [address] [place] [address] Dr. Nidhi Dawn MCH (RBC) [Entitic mass] 30.7 pg Normal 26.7-34.0 [facility] Comment on above: Performed By: #### C BC #### [facility] [address] [place] [address] Dr. Nidhi Dawn MCHC (RBC) [Mass/Vol] 33.6 g/dL Normal 29.9-35.2 [facility] Comment on above: Performed By: #### C BC #### [facility] [address] [place] [address] Dr. Nidhi Dawn MCV (RBC) [Entitic vol] 91.5 fL Normal 81.0-99.0 [facility] Comment on above: Performed By: #### C BC #### [facility] [address] [address] [address] Nidhi Dawn MONO # 1.0 103/ul Critically high 0.3-0.8 [facility] Comment on above: Performed By: #### C BC #### [facility] [address] [address] [address] Nidhi Dawn Monocytes/100 WBC (Bld) 10.3 % Normal 1.7-12.0 [facility] Comment on above: Performed By: #### C BC #### [facility] [address] [address] [address] Nidhi Dawn NEUT # 7.4 103/ul Critically high 1.4-6.5 [facility] Comment on above: Performed By: #### C BC #### [facility] [address] [place] [address] Dr. Nidhi Dawn Neutrophils/100 WBC (Bld) 77.7 % Critically high 43.0-75.0 [facility] Comment on above: Performed By: #### C BC #### [facility] [address] [place] [address] Dr. Nidhi Dawn Platelet mean volume (Bld) [Entitic vol] 10.0 fL Normal 9.5-13.5 [facility] Comment on above: Performed By: #### C BC #### [facility] [address] [place] [address] Dr. Nidhi Dawn PLT 175 103/ul Normal 150-450 [facility] Comment on above: Performed By: #### C BC #### [facility] [address] [place] [address] Dr. Nidhi Dawn RBC 3.29 106/ul Critically low 4.20-5.40 [facility] Comment on above: Performed By: #### C BC #### [facility] [address] [place] [address] Dr. Nidhi Dawn WBC 9.5 103/ul Normal 4.0-11.0 [facility] Comment on above: Performed By: #### C BC #### [facility] [address] [address] [address] Nidhi Dawn ER URINE PROFILEon 2 Bilirubin Ql (U) Negative Normal NEGATIVE [facility] Comment on above: Performed By: #### C MP, CMADM #### [facility] [address] [place] [address] Dr. Nidhi Dawn Clarity (U) CLEAR Normal CLEAR [facility] Comment on above: Performed By: #### C MP, CMADM #### [facility] [address] [place] [address] Dr. Nidhi Dawn Color (U) YELLOW Normal YELLOW [facility] Comment on above: Performed By: #### C MP, CMADM #### [facility] [address] [place] [address] Dr. Nidhi TERRAZAS A micrscopic examina tion will be performed if indicated. Normal [facility] Comment on above: Performed By: #### C MP, CMADM #### [facility] [address] [place] [address] Dr. Nidhi Dawn Glucose Ql (U) Negative Normal NEGATIVE [facility] Comment on above: Performed By: #### C MP, CMADM #### [facility] [address] [place] [address] Dr. Nidhi Dawn Hemoglobin Ql (U) MODERATE Abnormal NEGATIVE [facility] Comment on above: Performed By: #### C MP, CMADM #### [facility] [address] [address] [address] Nidhi Dawn Ketones Ql (U) TRACE Abnormal NEGATIVE [facility] Comment on above: Performed By: #### C MP, CMADM #### [facility] [address] [address] [address] Nidhi Dawn LEUKOCYTES MODERATE Abnormal NEGATIVE [facility] Comment on above: Performed By: #### C MP, CMADM #### [facility] [address] [place] [address] Dr. Nidhi Dawn Nitrite Ql (U) Positive Abnormal NEGATIVE [facility] Comment on above: Performed By: #### C MP, CMADM #### [facility] [address] [place] [address] Dr. Nidhi Dawn pH (U) [pH] Abnormal 5-9 [facility] Comment on above: Performed By: #### C DONA, CMADM #### [facility] [address] [place] [address] Dr. Nidhi Dawn Protein (U) [Mass/Vol] 100 mg/dL Abnormal NEGAT GRIFFIN/ TRACE [facility] Comment on above: Performed By: #### C DONA, CMADM #### [facility] [address] [place] [address] Dr. Nidhi Dawn SPEC GRAVITY <=1.005 Abnormal 1.005-<=1.[address] [place] [address] Comment on above: Performed By: #### C DONA, CMADM #### [facility] [address] [place] [address] Dr. Nidhi Dawn UR MICRO IND INDICATED Normal [facility] Comment on above: Performed By: #### C DONA, LEONCIODM #### [facility] [address] [place] [address] Dr. Nidhi Dawn Urobilinogen Qn (U) 1.0 {Lawrence'U}/dL Normal 0.2 - 1. 0 [facility] Comment on above: Performed By: #### C DONA, CMADM #### [facility] [address] [place] [address] Dr. Nidhi Dawn FREE T3on 04-02-2022 FREE T3 1.84 pg/mlL Critically low 2.18-3.98 [facility] Comment on above: Performed By: #### C BC #### [facility] [address] [place] [address] Dr. Nidhi Dawn PROF CHEM 8 (BAS METB)on Anion gap [Moles/Vol] 10.9 mmol/L Normal [facility] Comment on above: Performed By: #### C BC #### [facility] [address] [place] [address] Dr. Nidhi Dawn Calcium [Mass/Vol] 8.6 mg/dL Normal 8.5-10.1 [facility] Comment on above: Performed By: #### C BC #### [facility] [address] [address] [address] Nidhi Dawn Chloride [Moles/Vol] 102 mmol/L Normal 98-107 [facility] Comment on above: Performed By: #### C BC #### [facility] [address] [address] [address] Nidhi Dawn CO2 [Moles/Vol] 24.9 mmol/L Normal 21.0-32.0 [facility] Comment on above: Performed By: #### C BC #### [facility] [address] [place] [address] Dr. Nidhi Dawn Creatinine [Mass/Vol] 0.42 mg/dL Critically low 0.55-1.02 [facility] Comment on above: Performed By: #### C BC #### [facility] [address] [place] [address] Dr. Nidhi Dawn EGFR-AF TRINIDADIAN >60 Normal >=60 [facility] Comment on above: Performed By: #### C BC #### [facility] [address] [place] [address] Dr. Nidhi Dawn EGFR-NON AF TRINIDADIAN >60 Normal >=60 [facility] Comment on above: Performed By: #### C BC #### [facility] [address] [place] [address] Dr. Nidhi Dawn Glucose [Mass/Vol] 103 mg/dL Normal 74-106 [facility] Comment on above: Performed By: #### C BC #### [facility] [address] [place] [address] Dr. Nidhi Dawn Potassium [Moles/Vol] 3.8 mmol/L Normal 3.5-5.1 [facility] Comment on above: Performed By: #### C BC #### [facility] [address] [place] [address] Dr. Nidhi Dawn Sodium [Moles/Vol] 134 mmol/L Critically low 136-145 [facility] Comment on above: Performed By: #### C BC #### [facility] [address] [place] [address] Dr. Nidhi Dawn Urea nitrogen [Mass/Vol] 14.0 mg/dL Normal 7.0-18.0 [facility] Comment on above: Performed By: #### C BC #### [facility] [address] [place] [address] Dr. Nidhi Dawn Urea nitrogen/Creatinine [Mass ratio] 33.3 mg/mg Normal [facility] Comment on above: Performed By: #### C BC #### [facility] [address] [place] [address] Dr. Nidhi Dawn URINE MICROSCOPIC ONLYon BACTERIA MODERATE Abnormal NONE SEEN [facility] Comment on above: Performed By: #### C MP, CMADM #### [facility] [address] [place] [address] Dr. Nidhi Dawn Bacteria identified Cx Nom (U) INDICATED Normal [facility] Comment on above: Performed By: #### C MP, CMADM #### [facility] [address] [place] [address] Dr. Nidhi Dawn CAST NONE SEEN Normal NONE SEEN [facility] Comment on above: Performed By: #### C MP, CMADM #### [facility] [address] [place] [address] Dr. Nidhi Dawn Crystals LM Nom (Urine sed) NONE SEEN Normal NONE SEEN [facility] Comment on above: Performed By: #### C MP, CMADM #### [facility] [address] [place] [address] Dr. Nidhi Dawn Epithelial cells LM Ql (Urine sed) RARE Normal NONE SEEN /RARE [facility] Comment on above: Performed By: #### C MP, CMADM #### [facility] [address] [place] [address] Dr. Nidhi Dawn MUCOUS TRACE Abnormal NONE SEEN [facility] Comment on above: Performed By: #### C MP, CMADM #### [facility] [address] [place] [address] Dr. Nidhi Dawn RBC 5-10 Abnormal 0-2 [facility] Comment on above: Performed By: #### C MP, CMADM #### [facility] [address] [address] [address] Nidhi Dawn WBC 10-20 Abnormal NONE SEEN [facility] Comment on above: Performed By: #### C HELENA CARCAMO #### [facility] [address] [address] [address] Nidhi Dawn CBC AUTO DIFFon 04-01-2022 BASO # 0.0 103/ul Normal 0.0-0.1 [facility] Comment on above: Performed By: #### C BC #### [facility] [address] [place] [address] Dr. Nidhi Dawn Basophils/100 WBC (Bld) 0.1 % Critically low 0.2-2.0 [facility] Comment on above: Performed By: #### C BC #### [facility] [address] [place] [address] Dr. Nidhi Dawn EO # 0.0 103/ul Normal 0.0-0.7 [facility] Comment on above: Performed By: #### C BC #### [facility] [address] [place] [address] Dr. Nidhi Dawn Eosinophils/100 WBC (Bld) 0.1 % Critically low 0.9-7.0 [facility] Comment on above: Performed By: #### C BC #### [facility] [address] [place] [address] Dr. Nidhi Dawn Erythrocyte distribution width (RBC) [Ratio] 13.9 % Normal 11.0-15.0 [facility] Comment on above: Performed By: #### C BC #### [facility] [address] [place] [address] Dr. Nidhi Dawn Hematocrit (Bld) [Volume fraction] 31.4 % Critically low 36.0-48.0 [facility] Comment on above: Performed By: #### C BC #### [facility] [address] [place] [address] Dr. Nidhi Dawn Hemoglobin (Bld) [Mass/Vol] 10.3 g/dL Critically low 12.0-16.0 [facility] Comment on above: Performed By: #### C BC #### [facility] [address] [place] [address] Dr. Nidhi Dawn IG # 0.03 10e3/ul Normal 0.00-0.03 [facility] Comment on above: Performed By: #### C BC #### [facility] [address] [place] [address] Dr. Nidhi Dawn IG % 0.3 % Normal 0.0-0.5 [facility] Comment on above: Performed By: #### C BC #### [facility] [address] [place] [address] Dr. Nidhi Dawn LYMPH # 1.3 103/ul Normal 1.2-3.8 [facility] Comment on above: Performed By: #### C BC #### [facility] [address] [place] [address] Dr. Nidhi Dawn Lymphocytes/100 WBC (Bld) 13.5 % Critically low 20.5-60.0 [facility] Comment on above: Performed By: #### C BC #### [facility] [address] [place] [address] Dr. Nidhi Dawn MANUAL DIFF REQ NO Normal [facility] Comment on above: Performed By: #### C BC #### [facility] [address] [place] [address] Dr. Nidhi Dawn MCH (RBC) [Entitic mass] 30.3 pg Normal 26.7-34.0 [facility] Comment on above: Performed By: #### C BC #### [facility] [address] [place] [address] Dr. Nidhi Dawn MCHC (RBC) [Mass/Vol] 32.8 g/dL Normal 29.9-35.2 [facility] Comment on above: Performed By: #### C BC #### [facility] [address] [place] [address] Dr. Nidhi Dawn MCV (RBC) [Entitic vol] 92.4 fL Normal 81.0-99.0 [facility] Comment on above: Performed By: #### C BC #### [facility] [address] [place] [address] Dr. Nidhi Dawn MONO # 1.1 103/ul Critically high 0.3-0.8 [facility] Comment on above: Performed By: #### C BC #### [facility] [address] [place] [address] Dr. Nidhi Dawn Monocytes/100 WBC (Bld) 11.1 % Normal 1.7-12.0 [facility] Comment on above: Performed By: #### C BC #### [facility] [address] [place] [address] Dr. Nidhi Dawn NEUT # 7.4 103/ul Critically high 1.4-6.5 [facility] Comment on above: Performed By: #### C BC #### [facility] [address] [place] [address] Dr. Nidhi Dawn Neutrophils/100 WBC (Bld) 74.9 % Normal 43.0-75.0 [facility] Comment on above: Performed By: #### C BC #### [facility] [address] [place] [address] Dr. Nidhi Dawn Platelet mean volume (Bld) [Entitic vol] 9.9 fL Normal 9.5-13.5 [facility] Comment on above: Performed By: #### C BC #### [facility] [address] [place] [address] Dr. Nidhi Dawn PLT 219 103/ul Normal 150-450 [facility] Comment on above: Performed By: #### C BC #### [facility] [address] [place] [address] Dr. Nidhi Dawn RBC 3.40 106/ul Critically low 4.20-5.40 [facility] Comment on above: Performed By: #### C BC #### [facility] [address] [place] [address] Dr. Nidhi Dawn WBC 9.9 103/ul Normal 4.0-11.0 [facility] Comment on above: Performed By: #### C BC #### [facility] [address] [place] [address] Dr. Nidhi Dawn PROF CHEM 8 (BAS METB)on Anion gap [Moles/Vol] 9.7 mmol/L Normal [facility] Comment on above: Performed By: #### B MP #### [facility] [address] [address] [address] Nidhi Dawn Calcium [Mass/Vol] 8.5 mg/dL Normal 8.5-10.1 [facility] Comment on above: Performed By: #### B MP #### [facility] [address] [place] [address] Dr. Nidhi Dawn Chloride [Moles/Vol] 102 mmol/L Normal 98-107 [facility] Comment on above: Performed By: #### B MP #### [facility] [address] [place] [address] Dr. Nidhi Dawn CO2 [Moles/Vol] 28.8 mmol/L Normal 21.0-32.0 [facility] Comment on above: Performed By: #### B MP #### [facility] [address] [place] [address] Dr. Nidhi Dawn Creatinine [Mass/Vol] 0.54 mg/dL Critically low 0.55-1.02 [facility] Comment on above: Performed By: #### B MP #### [facility] [address] [place] [address] Dr. Nidhi Dawn EGFR-AF TRINIDADIAN >60 Normal >=60 [facility] Comment on above: Performed By: #### B MP #### [facility] [address] [place] [address] Dr. Nidhi Dawn EGFR-NON AF TRINIDADIAN >60 Normal >=60 [facility] Comment on above: Performed By: #### B MP #### [facility] [address] [place] [address] Dr. Nidhi Dawn Glucose [Mass/Vol] 108 mg/dL Critically high 74-106 [facility] Comment on above: Performed By: #### B MP #### [facility] [address] [address] [address] Nidhi Dawn Potassium [Moles/Vol] 3.5 mmol/L Normal 3.5-5.1 [facility] Comment on above: Performed By: #### B MP #### [facility] [address] [place] [address] Dr. Nidhi Dawn Sodium [Moles/Vol] 137 mmol/L Normal 136-145 [facility] Comment on above: Performed By: #### B MP #### [facility] [address] [place] [address] Dr. Nidhi Dawn Urea nitrogen [Mass/Vol] 14.0 mg/dL Normal 7.0-18.0 [facility] Comment on above: Performed By: #### B MP #### [facility] [address] [place] [address] Dr. Nidhi Dawn Urea nitrogen/Creatinine [Mass ratio] 25.9 mg/mg Normal [facility] Comment on above: Performed By: #### B MP #### [facility] [address] [place] [address] Dr. Nidhi Dawn CARDIAC CELESTINO ADMITon 022 CK [Catalytic activity/Vol] 60 U/L Normal 26-192 [facility] Comment on above: Performed By: #### C BC #### [facility] [address] [place] [address] Dr. Nidhi Dawn CK.MB [Mass/Vol] 2.29 ng/mL Normal <=3.60 [facility] Comment on above: Performed By: #### C BC #### [facility] [address] [place] [address] Dr. Nidhi Dawn HSTROP 5.8 pg/mL Normal 4.0-51.3 [facility] Comment on above: Result Comment: CUT- OFF POINTS HAVE BEEN ESTABLISHED BASED ON THE FOURTH UNIVERSAL DEFINITIONS OF MYOCARDIAL INFARCTION. THE UPPER REFERENCE LIMIT (URL) OF TROPONIN, DEFINED THE 99TH PERCENTILE OF cTnI DISTRIBUTION IN A REFERENCE POPULATION, HAS BEEN CONFIRMED THE DECISION THRESHOLD FOR OR DIAGNOSIS. Performed By: #### C BC #### [facility] [address] [place] [address] Dr. Nidhi Dawn BOBBY 63 ng/mL Normal 9-82 [facility] Comment on above: Performed By: #### C BC #### [facility] [address] [address] [address] Nidhi Dawn CBC AUTO DIFFon 03-31-2022 BASO # 0.0 103/ul Normal 0.0-0.1 [facility] Comment on above: Performed By: #### C BC #### [facility] [address] [address] [address] Nidhi Dawn Basophils/100 WBC (Bld) 0.3 % Normal 0.2-2.0 [facility] Comment on above: Performed By: #### C BC #### [facility] [address] [address] [address] Nidhi Dawn EO # 0.0 103/ul Normal 0.0-0.7 [facility] Comment on above: Performed By: #### C BC #### [facility] [address] [place] [address] Dr. Nidhi Dawn Eosinophils/100 WBC (Bld) 0.3 % Critically low 0.9-7.0 [facility] Comment on above: Performed By: #### C BC #### [facility] [address] [address] [address] Ndihi Dawn Erythrocyte distribution width (RBC) [Ratio] 13.8 % Normal 11.0-15.0 [facility] Comment on above: Performed By: #### C BC #### [facility] [address] [place] [address] Dr. Nidhi Dawn Hematocrit (Bld) [Volume fraction] 39.3 % Normal 36.0-48.0 [facility] Comment on above: Performed By: #### C BC #### [facility] [address] [address] [address] Nidhi Dawn Hemoglobin (Bld) [Mass/Vol] 12.8 g/dL Normal 12.0-16.0 [facility] Comment on above: Performed By: #### C BC #### [facility] [address] [address] [address] Nidhi Dawn IG # 0.10 10e3/ul Critically high 0.00-0.03 [facility] Comment on above: Performed By: #### C BC #### [facility] [address] [place] [address] Dr. Nidhi Dawn IG % 0.8 % Critically high 0.0-0.5 [facility] Comment on above: Performed By: #### C BC #### [facility] [address] [place] [address] Dr. Nidhi Dawn LYMPH # 1.1 103/ul Critically low 1.2-3.8 [facility] Comment on above: Performed By: #### C BC #### [facility] [address] [place] [address] Dr. Nidhi Dawn Lymphocytes/100 WBC (Bld) 9.3 % Critically low 20.5-60.0 [facility] Comment on above: Performed By: #### C BC #### [facility] [address] [place] [address] Dr. Nidhi Dawn MANUAL DIFF REQ NO Normal [facility] Comment on above: Performed By: #### C BC #### [facility] [address] [place] [address] Dr. Nidhi Dawn MCH (RBC) [Entitic mass] 30.0 pg Normal 26.7-34.0 [facility] Comment on above: Performed By: #### C BC #### [facility] [address] [place] [address] Dr. Nidhi Dawn MCHC (RBC) [Mass/Vol] 32.6 g/dL Normal 29.9-35.2 [facility] Comment on above: Performed By: #### C BC #### [facility] [address] [place] [address] Dr. Nidhi Dawn MCV (RBC) [Entitic vol] 92.3 fL Normal 81.0-99.0 [facility] Comment on above: Performed By: #### C BC #### [facility] [address] [place] [address] Dr. Nidhi Dawn MONO # 0.8 103/ul Normal 0.3-0.8 [facility] Comment on above: Performed By: #### C BC #### [facility] [address] [address] [address] Nidhi Dawn Monocytes/100 WBC (Bld) 6.6 % Normal 1.7-12.0 [facility] Comment on above: Performed By: #### C BC #### [facility] [address] [address] [address] Nidhi Dawn NEUT # 9.8 103/ul Critically high 1.4-6.5 [facility] Comment on above: Performed By: #### C BC #### [facility] [address] [address] [address] Nidhi Dawn Neutrophils/100 WBC (Bld) 82.7 % Critically high 43.0-75.0 [facility] Comment on above: Performed By: #### C BC #### [facility] [address] [place] [address] Dr. Nidhi Dawn Platelet mean volume (Bld) [Entitic vol] 9.3 fL Critically low 9.5-13.5 [facility] Comment on above: Performed By: #### C BC #### [facility] [address] [place] [address] Dr. Nidhi Dawn PLT 284 103/ul Normal 150-450 [facility] Comment on above: Performed By: #### C BC #### [facility] [address] [place] [address] Dr. Nidhi Dawn RBC 4.26 106/ul Normal 4.20-5.40 [facility] Comment on above: Performed By: #### C BC #### [facility] [address] [place] [address] Dr. Nidhi Dawn WBC 11.8 103/ul Critically high 4.0-11.0 [facility] Comment on above: Performed By: #### C BC #### [facility] [address] [place] [address] CHEST W CONon [...] by: TAYLOR PENA Date: 2022-03-31 14:36 Normal [facility] CT CSPINE WO CONon CT CSPINE [...] TAYLOR PENA Date: 2022-03-31 14:48 Normal [facility] CT HEAD WO CONon 03-31-2022 CT [...] TAYLOR PENA Date: 2022-03-31 14:11 Normal [facility] CT LSPINE WO CONon 2 [...] TAYLOR PENA Date: 2022-03-31 14:27 Normal [facility] Covid-19 PCR (CVDTB)on SARS-CoV-2 (COVID-19) RNA COLLINS+probe Ql (Unsp spec) Not detected Normal NOT DETECTED [facility] Comment on above: Result Comment: [...] for this test is supported by the [employer] of [employer] and Human Service's declaration that [...] longer be used). Performed By: #### [facility] #### [facility] [address] [place] [address] Dr. Nidhi Dawn PROF 14(COMP METB)on 022 Albumin [Mass/Vol] 3.7 g/dL Normal 3.4-5.0 [facility] Comment on above: Performed By: #### C BC #### [facility] [address] [place] [address] Dr. Nidhi Dawn Albumin/Globulin [Mass ratio] 1.2 {ratio} Normal [facility] Comment on above: Performed By: #### C BC #### [facility] [address] [place] [address] Dr. Nidhi Dawn ALP [Catalytic activity/Vol] 55 U/L Normal 46-116 [facility] Comment on above: Performed By: #### C BC #### [facility] [address] [place] [address] Dr. Nidhi Dawn ALT [Catalytic activity/Vol] 24 U/L Normal 14-59 [facility] Comment on above: Performed By: #### C BC #### [facility] [address] [place] [address] Dr. Nidhi Dawn Anion gap [Moles/Vol] 9.2 mmol/L Normal [facility] Comment on above: Performed By: #### C BC #### [facility] [address] [place] [address] Dr. Nidhi Dawn AST [Catalytic activity/Vol] 19 U/L Normal 15-37 [facility] Comment on above: Performed By: #### C BC #### [facility] [address] [place] [address] Dr. Nidhi Dawn Bilirubin [Mass/Vol] 0.5 mg/dL Normal 0.2-1.0 [facility] Comment on above: Performed By: #### C BC #### [facility] [address] [address] [address] Nidhi Dawn Calcium [Mass/Vol] 9.1 mg/dL Normal 8.5-10.1 [facility] Comment on above: Performed By: #### C BC #### [facility] [address] [address] [address] Nidhi Dawn Chloride [Moles/Vol] 103 mmol/L Normal 98-107 [facility] Comment on above: Performed By: #### C BC #### [facility] [address] [address] [address] Nidhi Dawn CO2 [Moles/Vol] 28.0 mmol/L Normal 21.0-32.0 [facility] Comment on above: Performed By: #### C BC #### [facility] [address] [place] [address] Dr. Nidhi Dawn Creatinine [Mass/Vol] 0.56 mg/dL Normal 0.55-1.02 [facility] Comment on above: Performed By: #### C BC #### [facility] [address] [place] [address] Dr. Nidhi Dawn EGFR-AF TRINIDADIAN >60 Normal >=60 [facility] Comment on above: Performed By: #### C BC #### [facility] [address] [address] [address] Nidhi Dawn EGFR-NON AF TRINIDADIAN >60 Normal >=60 [facility] Comment on above: Performed By: #### C BC #### [facility] [address] [place] [address] Dr. Nidhi Dawn Globulin (S) [Mass/Vol] 3.2 g/dL Normal [facility] Comment on above: Performed By: #### C BC #### [facility] [address] [address] [address] Nidhi Dawn Glucose [Mass/Vol] 140 mg/dL Critically high 74-106 [facility] Comment on above: Performed By: #### C BC #### [facility] [address] [address] [address] Nidhi Dawn Potassium [Moles/Vol] 3.2 mmol/L Critically low 3.5-5.1 [facility] Comment on above: Performed By: #### C BC #### [facility] [address] [address] [address] Nidhi Dawn Protein [Mass/Vol] 6.9 g/dL Normal 6.4-8.2 [facility] Comment on above: Performed By: #### C BC #### [facility] [address] [address] [address] Nidhi Dawn Sodium [Moles/Vol] 137 mmol/L Normal 136-145 [facility] Comment on above: Performed By: #### C BC #### [facility] [address] [address] [address] Nidhi Dawn Urea nitrogen [Mass/Vol] 13.0 mg/dL Normal 7.0-18.0 [facility] Comment on above: Performed By: #### C BC #### [facility] [address] [address] [address] Nidhi Dawn Urea nitrogen/Creatinine [Mass ratio] 23.2 mg/mg Normal [facility] Comment on above: Performed By: #### C BC #### [facility] [address] [address] [address] Nidhi Dawn PROTIMEon 03-31-2022 INR Coag (PPP) [Relative time] 1.01 {INR} Normal [facility] Comment on above: Performed By: #### C BC #### [facility] [address] [address] [address] Nidhi Dawn INR GUIDELINES SEE BELOW Normal [facility] Comment on above: Result Comment: BASSEM RED INR: 2.0 - 3.0 CONDITIONS NOT LISTED BELOW 2.5 - 3.5 FOR PROSTHETIC HEART VALVE REPLACEMENT 2.5 - 3.5 RECURRENT THROMBOSIS Performed By: #### C BC #### [facility] [address] [address] [address] Nidhi Dawn PT Coag (PPP) [Time] 10.9 s Normal 9.0-11.6 [facility] Comment on above: Performed By: #### C BC #### [facility] [address] [address] [address] Nidhi Dawn PTTon 03-31-2022 aPTT Coag (Bld) [Time] 25.7 s Normal 22.3-36.2 [facility] Comment on above: Performed By: #### C BC #### [facility] [address] [address] [address] Nidhi Dawn TSHon 03-31-2022 TSH 3.763 uIU/mL Critically high 0.358-3.740 [facility] Comment on above: Performed By: #### C BC #### [facility] [address] [address] [address] Nidhi Dawn XR HIP RT 2 [...] AVEL BUENO Date: 2022-03-31 14:33 Normal [facility] XR HIP RT 2 3V W PELVISon [...] by: KANDIS KENNY Date: 2021-12-14 21:43 Normal [facility] CT PELVIS WO CONon 2 CT [...] by: ISRAEL JUÁREZ Date: 2021-12-13 18:51 Normal [facility] Vital Signs Date Time Vital Sign Value Performing Clinician Facility 10-25-2023 11:40-0400 Body height 149.9 cm Ashley ALMONTE Work Phone: [facility] [employer] [facility] 10-25-2023 11:40-0400 Body mass index (BMI) [Ratio] 19.09 kg/m2 Ashley Olvera APRNClassic DriveTECHNICIAN ASSISTANT Work Phone: [facility] [employer] [facility] 10-25-2023 11:40-0400 Body temperature 97.39 [degF] Ashley DAVIESTECHNICIAN ASSISTANT Work Phone: [facility] [employer] [facility] 10-25-2023 11:40-0400 Body weight 42.87 kg Ashley Olvera APRN-SARAH Work Phone: [facility] [employer] [facility] 10-25-2023 11:40-0400 Diastolic blood pressure 62 mm[Hg] Ashley Olvera APRN-SARAH Work Phone: [facility] 10-25-2023 11:40-0400 Heart rate 57 /min Ashley Olvera APRN-SARAH Work Phone: [facility] 10-25-2023 11:40-0400 Respiratory rate 18 /min Ashley Olvera APRN-SARAH Work Phone: [facility] [employer] [facility] 10-25-2023 11:40-0400 SaO2% (BldA) [Mass fraction] 99 % Ashley Olvera APRN-SARAH Work Phone: [facility] [employer] [facility] 10-25-2023 11:40-0400 Systolic blood pressure 120 mm[Hg] Ashley Olvera APRN-SARAH Work Phone: [facility] 10-09-2023 11:45-0400 Body height 149.9 cm Ashley Olvera APRN-SARAH Work Phone: [facility] [employer] [facility] 10-09-2023 11:45-0400 Body mass index (BMI) [Ratio] 18.46 kg/m2 Ashley Olvera APRN-SARAH Work Phone: [facility] [employer] [facility] 10-09-2023 11:45-0400 Body temperature 97.3 [degF] Ashley Olvera APRN-SARAH Work Phone: [facility] [employer] [facility] 10-09-2023 11:45-0400 Body weight 41.46 kg Ashley Olvera APRN-SARAH Work Phone: [facility] 10-09-2023 11:45-0400 Diastolic blood pressure 60 mm[Hg] Ashley Olvera APRN-SARAH Work Phone: [facility] [employer] [facility] 10-09-2023 11:45-0400 Heart rate 70 /min Ashley Olvera APRN-SARAH Work Phone: [facility] [employer] [facility] 10-09-2023 11:45-0400 Respiratory rate 22 /min Ashley Olvera APRN-TECHNICIAN ASSISTANT Work Phone: [facility] 10-09-2023 11:45-0400 SaO2% (BldA) [Mass fraction] 100 % Ashley Olvera APRN-SARAH Work Phone: [facility] [employer] [facility] 10-09-2023 11:45-0400 Systolic blood pressure 128 mm[Hg] Ashley Olvera APRN-SARAH Work Phone: [facility] [employer] [facility] 09-27-2023 15:42-0500 Body height 149.9 cm Ashley Olvera APRN-TECHNICIAN ASSISTANT Work Phone: [facility] [employer] [facility] 09-27-2023 15:42-0500 Body mass index (BMI) [Ratio] 19.79 kg/m2 Ashley Olvera APRN-SARAH Work Phone: [facility] [employer] [facility] 09-27-2023 15:42-0500 Body temperature 98.01 [degF] Ashley Olvera APRN-SARAH Work Phone: [facility] 09-27-2023 15:42-0500 Body weight 44.45 kg Ashley Olvera APRN-TECHNICIAN ASSISTANT Work Phone: [facility] [employer] [facility] 09-27-2023 15:42-0500 Diastolic blood pressure 80 mm[Hg] Ashley Olvera APRN-TECHNICIAN ASSISTANT Work Phone: [facility] [employer] [facility] 09-27-2023 15:42-0500 Heart rate 59 /min Ashley Olvera APRN-TECHNICIAN ASSISTANT Work Phone: [facility] 09-27-2023 15:42-0500 Respiratory rate 18 /min Ashley Olvera APRN-TECHNICIAN ASSISTANT Work Phone: [facility] 09-27-2023 15:42-0500 SaO2% (BldA) [Mass fraction] 93 % Ashley Olvera HUMAN RESOURCES VICE PRESIDENT-TECHNICIAN ASSISTANT Work Phone: [facility] 09-27-2023 15:42-0500 Systolic blood pressure 122 mm[Hg] Ashley Olvera HUMAN RESOURCES VICE PRESIDENT-TECHNICIAN ASSISTANT Work Phone: [facility] 10-03-2022 16:00-0400 Body temperature 97.6 [degF] WIC SITE COORDINATOR-C Ashley Olvera Work Phone: [facility] 10-03-2022 16:00-0400 Diastolic blood pressure 79 mm[Hg] WIC SITE COORDINATOR-C Ashley Olvera Work Phone: [facility] 10-03-2022 16:00-0400 Heart rate 77 /min WIC SITE COORDINATOR-C Ashley Olvera Work Phone: [facility] 10-03-2022 16:00-0400 Respiratory rate 16 /min WIC SITE COORDINATOR-C Ashley Olvera Work Phone: [facility] 10-03-2022 16:00-0400 SaO2% (BldA) [Mass fraction] 100 % WIC SITE COORDINATOR-C Ashley Olvera Work Phone: [facility] 10-03-2022 16:00-0400 Systolic blood pressure 156 mm[Hg] WIC SITE COORDINATOR-C Ashley Olvera Work Phone: [facility] 10-02-2022 20:00-0400 Inhaled oxygen flow rate 2 L/min WIC SITE COORDINATOR-C Ashley Olvera Work Phone: [facility] 09-29-2022 06:00-0500 Body weight 49 kg WIC SITE COORDINATOR-C Ashley Olvera Work Phone: [facility] 09-28-2022 16:10-0500 Body height 147.32 cm WIC SITE COORDINATOR-C Ashley Olvera Work Phone: [facility] 09-28-2022 16:10-0500 Body mass index (BMI) [Ratio] 18.6 kg/m2 JULES Olvera Work Phone: [facility] 12-13-2021 16:30-0400 Body height 152.4 cm Rylie Galvan Other [employer] Other 12-13-2021 16:30-0400 Body mass index (BMI) [Ratio] 19.33 kg/m2 Rylie Mandy Other [employer] Other 12-13-2021 16:30-0400 Body temperature 98 [degF] Rylie Brooksmond Other [employer] Other 12-13-2021 16:30-0400 Body weight 44.91 kg Rylie Brooksmond Other [employer] Other 12-13-2021 16:30-0400 Diastolic blood pressure 83 mm[Hg] Rylie Brooksmond Other [employer] Other 12-13-2021 16:30-0400 Respiratory rate 18 /min Rylie Brooksmond Other [employer] Other 12-13-2021 16:30-0400 SaO2% (BldA) [Mass fraction] 97 % Rylie Mandy Other [employer] Other 12-13-2021 16:30-0400 Systolic blood pressure 130 mm[Hg] Rylie Mandy Other [employer] Other Encounters Encounter Date Encounter Type Care Provider Facility Start: 11-21-2023 End: 11-21-2023 ambulatory ASHLEY OLVERA [facility] Start: 11-07-2023 End: 11-07-2023 ambulatory ITALO DONOHUE Not Available Start: 10-25-2023 End: 10-25-2023 ambulatory [facility] Start: 10-25-2023 End: 10-25-2023 Office outpatient visit 15 minutes Ashley Shruthi Wade HUMAN RESOURCES VICE PRESIDENT-TECHNICIAN ASSISTANT Work Phone: [facility] - [facility] Comment on above: Arthritis, multiple joint involvement (Primary Dx); History of healed osteoporosis fracture; Decreased mobility and endurance Start: 10-17-2023 Orders Only Ashleyhector hoyos HUMAN RESOURCES VICE PRESIDENT-TECHNICIAN ASSISTANT Work Phone: [facility] - [facility] Comment on above: Arthritis, multiple joint involvement (Primary Dx); Benign essential HTN Start: 10-09-2023 End: 10-09-2023 Refill Justus Gastelum CMA [facility] - Family Medicine Comment on above: Arthritis, multiple joint involvement Start: 10-09-2023 End: 10-09-2023 Transitional care manage srvc 7 day discharge Ashley Olvera HUMAN RESOURCES VICE PRESIDENT-[facility] Work Phone: [facility] - [facility] Comment on above: Pneumonia of left lo wer lobe due to infectious organism (Primary Dx); Benign essential HTN; Arthritis, multiple joint involvement; Rash and nonspecific skin eruption Start: 09-27-2023 End: 09-27-2023 ambulatory [facility] Start: 09-27-2023 End: 09-27-2023 Office outpatient visit 15 minutes Ashley Olvera HUMAN RESOURCES VICE PRESIDENT-TECHNICIAN ASSISTANT Work Phone: [facility] - [facility] Comment on above: Rash and nonspecific skin eruption (Primary Dx); 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); Current moderate episode of major depressive disorder without prior episode (CMS-HCC); Malignant neoplasm of colon, unspecified part of colon (CMS-HCC) Start: 07-13-2023 End: 07-13-2023 ambulatory [facility] Start: 07-13-2023 Encounter for genera l adult medical examination without abnormal findings [facility] Start: 10-25-2022 End: 10-25-2022 ambulatory Leighton Valente Other [employer] Other Start: 10-25-2022 Telephone encounter Leighton Valente [facility] Start: 10-14-2022 End: 10-14-2022 ambulatory ASHLEY OLVERA Facility:[facility] Start: 09-28-2022 End: 10-03-2022 Evaluation and management of inpatient Leighton Valente Facility:[facility] Start: 09-28-2022 End: 10-03-2022 Evaluation and management of inpatient WIC SITE COORDINATOR-C Ashley Olvera Work Phone: [facility] Work Phone: Start: 09-27-2022 End: 09-28-2022 ambulatory JACIEL STEVE . Facility: Start: 05-02-2022 End: 05-02-2022 ambulatory ADELE NÚÑEZ . Facility:[facility] Start: 04-13-2022 Patient encounter procedure Storm Russell APRN.MANAGER OF REGULATORY AFFAIRS Work Phone: [facility] Start: 04-13-2022 Progress Note Storm GARCIA RN.MANAGER OF REGULATORY AFFAIRS Work Phone: [facility] Start: 04-08-2022 Patient encounter procedure Storm Russlel APRN.MANAGER OF REGULATORY AFFAIRS Work Phone: [facility] Start: 04-08-2022 Progress Note Storm GARCIA RN.MANAGER OF REGULATORY AFFAIRS Work Phone: [facility] Start: 04-05-2022 Patient encounter procedure Itri Cedric Fahad Work Phone: [facility] Start: 04-05-2022 Progress Note Itri A Fahad Work Phone: [facility] Start: 03-31-2022 End: 04-04-2022 Evaluation and management of inpatient DR GAB FONSECA . Facility:[facility] Start: 12-13-2021 End: 12-13-[address] BONIFACIO LEMOS . [employer] Other Start: 12-13-2021 Office outpatient vi sit 15 minutes Rylie Galvan [facility] Procedures Date Procedure Procedure Detail Performing Clinician Start: 10-25-2023 Adult depression screening assessment Ashley Olvera HUMAN RESOURCES VICE PRESIDENT-TECHNICIAN ASSISTANT Work Phone: Start: 10-09-2023 Adult depression screening assessment Ashley Olvera HUMAN RESOURCES VICE PRESIDENT-TECHNICIAN ASSISTANT Work Phone: Start: 09-27-2023 Follow-up visit Follow-up ASHLEY OLVERA Start: 09-27-2023 Adult depression screening assessment Ashley Olvera HUMAN RESOURCES VICE PRESIDENT-TECHNICIAN ASSISTANT Work Phone: Start: 10-03-2022 Plain X-ray of left hip WIC SITE COORDINATOR-C Ashley Olvera Work Phone: Start: 09-28-2022 Plain X-ray of left hip WIC SITE COORDINATOR-C Ashley Olvera Work Phone: Start: 09-28-2022 Open reduction with internal fixation WIC SITE COORDINATOR-C Ashley Olvera Work Phone: Start: 09-28-2022 Plain X-ray of left femur WIC SITE COORDINATOR-C Ashley Olvera Work Phone: Start: 09-28-2022 Plain X-ray of left hip WIC SITE COORDINATOR-C Ashley Olvera Work Phone: Plan of Treatment Date Care Activity Detail Author Start: 06-14-2030 DTaP,Tdap and Td Vaccines (3 - Td or Tdap) DTaP,Tdap and Td Vaccines (3 - Td or Tdap) [facility] Start: 10-24-2024 Adult BMI Screening Adult BMI Screening [facility] Start: 10-24-2024 Depression Screening Depression Screening [facility] Start: 10-24-2024 Fall Risk Screening Fall Risk Screening [facility] Start: 10-24-2024 Tobacco Screening Tobacco Screening [facility] Start: 10-08-2024 Adult BMI Screening Adult BMI Screening [facility] Start: 10-08-2024 Depression Screening Depression Screening [facility] Start: 10-08-2024 Fall Risk Screening Fall Risk Screening [facility] Start: 10-08-2024 Tobacco Screening Tobacco Screening [facility] Start: 09-27-2024 Tobacco Screening Tobacco Screening [facility] Start: 09-26-2024 Adult BMI Screening Adult BMI Screening [facility] Start: 09-26-2024 Depression Screening Depression Screening [facility] Start: 09-26-2024 Fall Risk Screening Fall Risk Screening [facility] Start: 07-13-2024 Medicare Annual Wellness Visit Medicare Annual Wellness Visit [facility] Start: 03-24-2024 Influenza vaccination Influenza Vaccine [facility] Start: 03-20-2024 End: 03-20-2024 Patient encounter procedure 03/20/2024 11:20 AM EDT Office Visit [facility] - [facility] [address] [place] [address] Ashley Olvera, HUMAN RESOURCES VICE PRESIDENT-TECHNICIAN ASSISTANT [address] [place] [address] [facility] Start: 01-09-2024 End: 01-09-2024 Patient encounter procedure 01/09/2024 10:40 AM EDT Office Visit [facility] [address] [place] [address] Ashley Olvera, HUMAN RESOURCES VICE PRESIDENT-TECHNICIAN ASSISTANT [address] [place] [address] [facility] Start: 11-01-2023 Adult BMI Follow Up Plan Adult BMI Follow Up Plan [facility] Start: 03-24-2023 COVID-19 Vaccine ( season) COVID-19 Vaccine ( season) [facility] Start: 10-03-2022 [facility] Start: 09-28-2022 [facility] Start: 09-28-2022 Consultation [facility] Start: 09-28-2022 Hospital admission [facility] Start: 03-24-2022 Influenza vaccination INFLUENZA (#1) [facility] Start: 07-24-2021 ADVANCE DIRECTIVE DISCUSSION ADVANCE DIRECTIVE DISCUSSION [facility] Start: 04-09-2019 DIABETES SCREEN DIABETES SCREEN [facility] Start: 2000 BONE DENSITY BONE DENSITY [facility] Start: 2000 PNEUMOCOCCAL: 65+ (1 - PCV) PNEUMOCOCCAL: 65+ (1 - PCV) [facility] Start: 1985 SHINGRIX VACCINE (1 of 2) SHINGRIX VACCINE (1 of 2) [facility] Start: 1954 Administration of varicella zoster vaccine Zoster (Shingles) Vaccine (1 of 2) [facility] Start: 1954 Urine microalbumin profile DTAP,TDAP,TD (1 - Tdap) [facility] Start: 03-10-1936 COVID-19 VACCINE (#1) COVID-19 VACCINE (#1) [facility] 25-hydroxyvitamin D2 [Mass/volume] in Serum or Plasma [facility] 25-hydroxyvitamin D3 [Mass/volume] in Serum or Plasma [facility] 25-Hydroxyvitamin D3+25-Hydroxyvitamin D2 [Mass/volume] in Serum or Plasma [facility] Patient referral [facility] Work Phone: XR Hip - left 2 Views [facility] Immunizations Immunization Date Immunization Notes Care Provider Gustabo roca 04-11-2023 Influenza Vaccine, Quadrivalent, Adjuvanted Ashley Olvera HUMAN RESOURCES VICE PRESIDENT-TECHNICIAN ASSISTANT Work Phone: [facility] 04-11-2023 influenza virus vacc ine, unspecified formulation Ashley Olvera HUMAN RESOURCES VICE PRESIDENT-TECHNICIAN ASSISTANT Work Phone: [facility] 05-09-2022 influenza, seasonal, injectable Ashley Olvera HUMAN RESOURCES VICE PRESIDENT-TECHNICIAN ASSISTANT Work Phone: [facility] 05-09-2022 pneumococcal polysaccharide vaccine, 23 valent Ashley Olvera HUMAN RESOURCES VICE PRESIDENT-TECHNICIAN ASSISTANT Work Phone: [facility] 04-21-2022 Influenza Vaccine, Quadrivalent, Adjuvanted Ashley Olvera HUMAN RESOURCES VICE PRESIDENT-TECHNICIAN ASSISTANT Work Phone: [facility] 12-06-2021 COVID-19, mRNA, LNP- S, PF, 30mcg/0.3mL Dose Ashley Olvera HUMAN RESOURCES VICE PRESIDENT-TECHNICIAN ASSISTANT Work Phone: [facility] 11-01-2021 COVID-19, mRNA, LNP- S, PF, 30mcg/0.3mL Dose Ashley Olvera HUMAN RESOURCES VICE PRESIDENT-TECHNICIAN ASSISTANT Work Phone: [facility] 05-17-2021 Influenza, High-dose , Quadrivalent Ashley Olvera HUMAN RESOURCES VICE PRESIDENT-TECHNICIAN ASSISTANT Work Phone: [facility] 06-14-2020 diphtheria, tetanus toxoids and pertussis vaccine Ashley Olvera HUMAN RESOURCES VICE PRESIDENT-TECHNICIAN ASSISTANT Work Phone: [facility] 05-12-2020 Influenza, High-dose , Quadrivalent Ashley Olvera HUMAN RESOURCES VICE PRESIDENT-TECHNICIAN ASSISTANT Work Phone: [facility] 05-07-2019 influenza, high dose seasonal, preservative-free Ashley Olvera HUMAN RESOURCES VICE PRESIDENT-TECHNICIAN ASSISTANT Work Phone: [facility] 04-17-2019 pneumococcal polysaccharide vaccine, 23 valent Ashley Olvera HUMAN RESOURCES VICE PRESIDENT-TECHNICIAN ASSISTANT Work Phone: [facility] 05-07-2018 influenza, high dose seasonal, preservative-free Ashley Olvera HUMAN RESOURCES VICE PRESIDENT-TECHNICIAN ASSISTANT Work Phone: [facility] 05-09-2017 influenza, injectabl e, quadrivalent, preservative free Ashley Olvera HUMAN RESOURCES VICE PRESIDENT-TECHNICIAN ASSISTANT Work Phone: [facility] 01-05-2017 pneumococcal conjuga te vaccine, 13 valent Ashley Olvera HUMAN RESOURCES VICE PRESIDENT-TECHNICIAN ASSISTANT Work Phone: [facility] 01-05-2017 tetanus toxoid, redu cristino diphtheria toxoid, and acellular pertussis vaccine, adsorbed Ashley Olvera HUMAN RESOURCES VICE PRESIDENT-TECHNICIAN ASSISTANT Work Phone: [facility] 05-22-2015 influenza, injectabl e, quadrivalent, preservative free Ashley Olvera HUMAN RESOURCES VICE PRESIDENT-TECHNICIAN ASSISTANT Work Phone: [facility] 04-21-2014 influenza, seasonal, injectable, preservative free Ashley Olvera HUMAN RESOURCES VICE PRESIDENT-TECHNICIAN ASSISTANT Work Phone: [facility] 04-17-2013 influenza virus vacc ine, whole virus Ashley Olvera HUMAN RESOURCES VICE PRESIDENT-TECHNICIAN ASSISTANT Work Phone: [facility] 06-28-2012 pneumococcal vaccine , unspecified formulation Ashley Olvera HUMAN RESOURCES VICE PRESIDENT-TECHNICIAN ASSISTANT Work Phone: [facility] 04-24-2012 influenza virus vacc ine, whole virus Ashley Olvera HUMAN RESOURCES VICE PRESIDENT-TECHNICIAN ASSISTANT Work Phone: [facility] 04-20-2011 influenza virus vacc ine, whole virus Ashley Olvera HUMAN RESOURCES VICE PRESIDENT-TECHNICIAN ASSISTANT Work Phone: [facility] 05-05-2010 influenza virus vacc ine, whole virus Ashley Olvera HUMAN RESOURCES VICE PRESIDENT-TECHNICIAN ASSISTANT Work Phone: [facility] 04-29-2009 influenza virus vacc ine, whole virus Ashley Olvera HUMAN RESOURCES VICE PRESIDENT-TECHNICIAN ASSISTANT Work Phone: [facility] 05-09-2007 influenza virus vacc ine, whole virus Ashley Olvera HUMAN RESOURCES VICE PRESIDENT-TECHNICIAN ASSISTANT Work Phone: [facility] Payers Date Payer Category Payer Medicare [id number] 2022 Self-pay 2016 Medicare [id number] 1959 Medicare [id number] 2.1 [id number] 1959 Private Health Insurance [id number] 1935 Unknown [id number] 2.16.84 [id number] 1935 Unknown [id number] 2.16.84 [id number] 1935 Unknown [id number] 2.16.84 [id number] 1935 Unknown [id number] 2.16.84 [id number] 1935 Unknown [id number] 2.16.84 [id number] 1935 Unknown [id number] 2.16.84 [id number] 1935 Unknown [id number] 2.16.8 [id number] 1935 Unknown [id number] 2.16.8 [id number] 1935 Unknown [id number] 2.16.8 [id number] 1935 Unknown [id number] 2.16.8 [id number] 1935 Unknown [id number] 2.16.84 [id number] Unknown [id number] 2.16.8 [id number] Social History Date Type Detail Facility Start: 08-04-2020 End: 09-28-2023 Sex Assigned At [facility] Start: 05-28-2014 End: 09-21-2022 Tobacco smoking status NHIS Never smoked tobacco [facility] Start: 10-25-2016 End: 10-25-2023 Alcohol intake Current drinker of alcohol (finding) [facility] Start: 1935 Sex Assigned At Not on file [facility] Start: 09-29-2022 Tobacco smoking stat us MIIS Unknown if ever smoked [facility] Start: 1935 Sex Assigned At Female F [facility] Start: 09-21-2022 Tobacco use and exposure Smokeless tobacco non-user [employer] Start: 08-04-2020 End: 09-28-2023 History of Social function [employer] Adolescent depressio n screening assessment 0 [employer] Goals Date Patient Goal Desired Activity /State Functional Status Date Assessment Result Facility 09-28-2022 Functional status Patient Not at Baseline [facility] Work Phone: Mental Status Date Assessment Result Facility 09-28-2022 Cognitive function Cognitive Sta tus Patient Not at Baseline [facility] Work Phone: Clinical Notes 12-13-2021 to 10-25-2023 Ashley Olvera APRN-[facility] - 10/25/2023 11:30 AM EDTTelephone Encounter - Justus Gastelum, [facility] - 10/09/2023 1:17 PM EDTTelephone Encounter - Justus Gastelum [facility] - 10/09/2023 1:17 PM EDT Note Date & Type Note Facility 10-25-2023 History of Present illness Narrative Images from the original note were not included. [address] [facility] [address] SUBJECTIVE: Patient ID: Annamaria Garcia [...] History: Diagnosis Date B12 deficiency Colonic cancer ([facility]) s/p robotic resection. 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 Resides at assisted living in [place]. ALL QUESTIONS ANSWERED Total time spent was 25 minutes: Preparing to see the patient (e.g., review of tests) Obtaining and/or reviewing separately obtained history Performing a medically appropriate examination and/or evaluation Counseling and educating the patient/family/caregiver Ordering medications, tests, or procedures Follow-up: 4 months GAGE Guerrero 10/25/23 [id number] documented in this encounter [facility] 10-09-[address] and would like the recent Scripts sent to [facility] instead of the other pharmacy that was listed. [phone] documented in this encounter [facility] 10-09-2023 Telephone encounter Note [address] called and would like the recent Scripts sent to [facility] instead of the other pharmacy that was listed. [phone] [facility] 10-09-2023 History of Present illness Narrative Images from the original note were not included. [address] [facility] [address] Patient ID: Annamaria Garcia is a 88 y.o. female. Transition of Care Diagnosis on Discharge: Hypertensive urgency, Left lower lobe penumonia Name of Discharging Facility: [facility] Date of Facility Discharge: October 02, 2023 Date of Interactive Contact and Name of Window Covering Sales Consultant: Medication Reconciliation Completed: Yes Medication Reconciliation Questions/Concerns: [...] and Other Services Utilized/Needed by the Patient: [facility] Home care / PT *Additional Questions/Concerns Requiring PCP Follow-Up: Pain control for arthritis SUBJECTIVE: Patient ID: Annamaria Garcia is a 88 y.o. female. Chief Complaint Patient presents with Hypertension [facility] follow up 09/29-10/01 Hypertension This is a [...] Guerrero 10/09/23 1307 documented in this encounter [facility] 09-27-2023 History of Present illness Narrative Images from the original note were not included. [address] [facility] [facility] [address] SUBJECTIVE: Patient ID: Annamaria [...] but returned worse. Family took her to [facility] ER last week for evaluation. Ordered another [...] History: Diagnosis Date B12 deficiency Colonic cancer ([facility]) s/p robotic resection. 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 [...] skin eruption - Ambulatory [facility] Future Mild late onset Alzheimer's dementia with [...] months Sooner if needed GAGE Guerrero 09/28/23 1351 documented in this encounter [facility] [employer] 10-02-2022 Progress note Note Date/Time October 02, 2022 12:44pm [facility] [address] [place] [address] Hospitalist Progress Note Signed Patient: Annamaria Garcia MR#: [id number] : 1935 Acct:[id number] Age/Sex: 87 / F Adm Date: 3 Loc: 4N Room: [address] [place], [place] [address] Type: ADM IN Attending Dr: Gordon You [...] formulated the plan of care and confirmed TECHNICIAN ASSISTANT's written note. Documented By: Mimi Artis APRN 10/02/22 1241 Signed By: <Electronically signed by KHURRAM Artis> 10/02/22 1244 <Electronically signed by Gordon You MD> 10/02/[address] [facility] Work Phone: 1(527) 535-195503-12-2023 Progress note Author Gordon You [facility] October 02, 2022 9:16pm Note Date/Time October 01, 2022 12: 12pm [facility] [address] [place] [address] Hospitalist Progress Note Signed Patient: Annamaria Garcia MR#: [id number] : 1935 Acct:[id number] Age/Sex: 87 / F Adm Date: 3 Loc: 4N Room: [address] [place] [address] Type: ADM IN Attending Dr: Gordon You [...] 09:00 10/01/22 09:34 Ferrous Sulfate 324 Mg Tablet.Dr PO 09/29/23 [...] the plan of care and confirmed the TECHNICIAN ASSISTANT's written note. Documented By: Mimi Artis APRN 10/01/22 1207 Signed By: <Electronically signed by KHURRAM Artis> 10/01/22 1213 <Electronically signed by Gordon You MD> 10/02/22 [facility] Work Phone: 1(776) 355-395803-12-2023 Progress note Author Leighton Valente [facility] October 02, 2022 12:49pm Note Date/Time October 02, 2022 12: 43pm [facility] [address] [place] [address] Orthopedic Progress Note Signed Patient: Annamaria Garcia MR#: [id number] : 1935 Acct:[id number] Age/Sex: 87 / F Adm Date: 3 Loc: 4N Room: [address] [place] [address] Type: ADM IN Attending Dr: Gordon You [...] % (Auto) 72.4 Lymph % (Auto) 12.7 [place] % (Auto) 13.6 Eos % (Auto) 1.0 Baso % (Auto) 0.3 Nucleat RBC Rel Count 0.0 Neut # (Auto) 5.3 Lymph # (Auto) 0.9 L [place] # (Auto) 1.0 H Eos # (Auto) [...] signed by MD Leighton Valente> 10/02/22 1249 [facility] Work Phone: 1(121) 467-421803-10-2023 Progress note Author Yani Cyr [facility] September 30, 2022 4:42pm Note Date/Time September 30, 2022 12: 30pm [facility] [address] [place] [address] Hospitalist Progress Note Signed Patient: Annamaria Garcia MR#: [id number] : 1935 Acct:[id number] Age/Sex: 87 / F Adm Date: 3 Loc: 4N Room: 1I5989-9 Type: ADM IN Attending Dr: Yani Cyr [...] <Electronically signed by Yani Cyr MD> 09/30/22 1649 [facility] Work Phone: 1(351) 534-809703-09-2023 Progress note Author Leighton Valente [facility] September 29, 2022 12:30pm Note Date/Time September 29, 2022 7:53 am [facility] [address] [place] [address] Orthopedic Progress Note Signed Patient: Annamaria Garcia MR#: [id number] : 1935 Acct:[id number] Age/Sex: 87 / F Adm Date: 3 Loc: 4N Room: 0G4156-6 Type: ADM IN Attending Dr: Adama Kothari [...] signed by MD Leighton Valente> 09/29/22 1230 [facility] Work Phone: 1([phone]) 208-531703-09-2023 Consult note Author Leighton Valente [facility] September 29, 2022 7:45am Note Date/Time September 29, 2022 7:39 am [facility] [address] [place] [address] Orthopedic Consult Note Signed Patient: Annamaria Garcia MR#: [id number] : 1935 Acct:[id number] Age/Sex: 87 / F Adm Date: 3 Loc: 4N Room: 5K8610-5 Type: ADM IN Attending Dr: Adama Kothari MD Copies to: MD Leighton Paul MD Valerie J Castillo WIC SITE COORDINATOR-C~ History of Present Illness HPI Consult date: 09/29/2022 Requesting provider: Adama Kothari MD History of present illness: Patient is an 87-year-old female who sustained a fall with complaints of left hip pain.. [facility]. [facility] demonstrated displaced left [...] % (Auto) 87.9, Lymph % (Auto) 4.7, [place] % (Auto) 7.4, Eos % (Auto)0.0, Baso % (Auto) 0.0, Nucleat RBC Rel Count 0.1, Neut # (Auto) 10.7 H, Lymph #(Auto) 0.6 L, [place] # (Auto) 0.9 H, Eos # (Auto) [...] <Electronically signed by MD Leighton Valente> 09/29/22 0445 [facility] Work Phone: 1(914) 247-530003-08-2023 History and physical note Author Juliet Green [facility] September 28, 2022 9:41pm Note Date/Time September 28, 2022 4:41 am [facility] [address] [place] [address] Hospitalist H&P Signed Patient: Annamaria Garcia MR#: [id number] : 1935 Acct:[id number] Age/Sex: 87 / F Adm Date: 3 Loc: 4N Room: [address] [place] [address] Type: ADM IN Attending Dr: Adama Kothari MD Copies to: MD Juliet Paul MD Valerie J Castillo WIC SITE COORDINATOR-C~ HPI DATE OF EXAMINATION: 09/28/22 CHIEF COMPLAINT: hip fx HISTORY OF PRESENT ILLNESS: 87 years old female sustained what it seems mechanical fall, without any prodromal symptoms at home, where she lives alone, and presented to [facility] emergency room where she was diagnosed with [...] [facility] computer system [facility] Vacc[facility] for [facility]-19?: Yes Surgical History (Updated [...] <Electronically signed by Juliet Green MD> 09/28/[address] [facility] Work Phone: 1(346) 337-105603-08-2023 Progress note Author Adama Saniya [facility] September 28, 2022 7:19pm Note Date/Time September 28, 2022 10:0 4am [facility] [address] [place] [address] Hospitalist Progress Note Signed Patient: Annamaria Garcia MR#: [id number] : 1935 Acct:[id number] Age/Sex: 87 / F Adm Date: 3 Loc: 4N Room: [address] [place] [address] Type: ADM IN Attending Dr: Adama Kothari [...] Meq Kcl IV 09/28/23 05:29 75 mls/hr .[id number] XIAO Administration Lactated Ringer's 1,000 mls @ [...] signed by Adama Kothari MD> 09/28/[address] [facility] Work Phone: [phone]) 545-751203-08-2023 Hospital Discharge instructions Additional Instructions SNF Physician: [...] Mepilex border foam to Coccyx for protection. [facility] Work Phone: 1(265) 206-481909-26-2022 NoteHNO ID: [id number] Author: Storm Russell APRN.MANAGER OF REGULATORY AFFAIRS Service: ? Author Type: Nurse Specialist Type: Progress Notes Filed: 04/21/2022 7:19 AM Note Text: [facility] NOTE NAME: STANISLAW GARCIA NO.: [id number] DATE OF SERVICE: 04/18/2022 [facility] DATE OF : 1935 REASON FOR VISIT: The patient is a resident of [facility]. This is a skilled visit [...] no supplement. DICTATED BY: SARAH Bliss/Bernice JOB# [id number] cc:[facility]09-21-2022 NoteHNO ID: [id number] Author: Storm Russell APRN.MANAGER OF REGULATORY AFFAIRS Service: ? Author Type: Nurse Specialist Type: Progress Notes Filed: 04/14/2022 3:59 PM Note Text: [facility] NOTE NAME: ANNAMARIA GARCIACHELI NO.: [id number] DATE OF SERVICE: 04/13/2022 [facility] DATE OF : 1935 REASON FOR VISIT: The patient is a resident of [facility]. This is a skilled visit [...] supportive care. DICTATED BY: SARAH Bliss/Bernice JOB# [id number] cc:[facility]09-21-2022 History of Present illness Narrative* Storm Russell APRN.MANAGER OF REGULATORY AFFAIRS - 04/13/2022 12:00 AM EDT [facility] NOTE NAME: STANISLAW GARCIA NO.: [id number] DATE OF SERVICE: 04/13/2022 [facility] DATE OF : 1935 REASON FOR VISIT: The patient is a resident of [facility]. This is a skilled visit [...] provide supportive care. DICTATED BY: SARAH Bliss/Bernice Garcia:04/13/2022 JOB# [id number] cc:[facility] documented in this encounterMercy Health09-16-2022 NoteHNO ID: [id number] Author: Storm Russell APRN.MANAGER OF REGULATORY AFFAIRS Service: ? Author Type: Nurse Specialist Type: Progress Notes Filed: 04/11/2022 7:39 PM Note Text: [facility] NOTE NAME: STANISLAW GARCIA NO.: [id number] DATE OF SERVICE: 04/08/2022 [facility] DATE OF : 1935 REASON FOR VISIT: The patient is a resident of [facility]. This is a skilled visit for [...] normal range. DICTATED BY: SARAH Bliss JOB# [id number] cc:[facility]09-16-2022 History of Present illness Narrative* Storm Russell APRN.MANAGER OF REGULATORY AFFAIRS - 04/08/2022 12:00 AM EDT [facility] NOTE NAME: STANISLAW GARCIA NO.: [id number] DATE OF SERVICE: 04/08/2022 [facility] DATE OF : 1935 REASON FOR VISIT: The patient is a resident of [facility]. This is a skilled visit for [...] normal range. DICTATED BY: SARAH Bliss/Bernice JOB# [id number] cc:[facility] documented in this encounterMercy Health09-13-2022 NoteHNO ID: [id number] Author: Debra Vásquez Service: ? Author Type: Physician Type: Progress Notes Filed: 04/06/2022 5:49 PM Note Text: [facility] NOTE NAME: STANISLAW GARCIA NO.: [id number] DATE OF SERVICE: 04/05/2022 [facility] DATE OF : 1935 NEW PATIENT HISTORY AND PHYSICAL HISTORY OF PRESENT ILLNESS: Patient is an 86-year-old female, who is admitted to us from [facility] with a diagnoses of acute [...] she knew that she was somewhere is [place]. She is aware of having had a [...] hospital. DICTATED BY: MD ROCHELLE Silverio/Bernice JOB# [id number] cc:[facility]09-13-2022 History of Present illness Narrative* Debra Vásquez - 04/05/2022 12:00 AM EDT [facility] NOTE NAME: RADHA ANNAMARIACHELI NO.: [id number] DATE OF SERVICE: 04/05/2022 [facility] DATE OF : 1935 NEW PATIENT HISTORY AND PHYSICAL HISTORY OF PRESENT ILLNESS: Patient is an 86-year-old female, who is admitted to us from [facility] with a diagnoses of acute nondisplaced [...] she knew that she was somewhere is [place]. She is aware of having had a [...] hospital. DICTATED BY: MD ROCHELLE Silverio/Bernice JOB# [id number] cc:[facility] documented in this encounterMercy Health05-23-2022 Evaluation note* Encounter Date Diagnosis Assessment Notes [...] above plan, states she will go to [facility] for further evaluation. 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 ([facility]-HCC) Malignant neoplasm of colon, unspecified part of colon ([facility]-HCC) documented [facility] encounter [facility] Diagnosis Pneumonia of left lower lobe due to infectious organism- Primary Benign essential HTN Arthritis, multiple joint involvement Unspecified arthropathy, multiple sites Rash and nonspecific skin eruption Rash and other nonspecific skin eruption [facility] Diagnosis Arthritis, multiple joint involvement Unspecified arthropathy, multiple sites documented [facility]* Diagnosis Arthritis, multiple joint involvement- Primary Unspecified arthropathy, multiple sites Benign essential HTN documented [facility]* Diagnosis Arthritis, multiple joint involvement- Primary Unspecified arthropathy, multiple sites History of healed osteoporosis fracture Decreased mobility and endurance documented [facility] this encounter [facility] general Narrative - Reported* Type Description Date Surgical History CATARACT REMOVAL Surgical History CHOLECYSTECTOMY KXEN Other Instructions* Attachments The following attachments cannot be sent through Care Everywhere. * Skin Rash (Mexican) [facility]* Attachments The following attachments cannot be sent through Care Everywhere. * Joint Pain (Mexican) documented in this encounterProLake [facility] SystemInstructionsNot on file documented in this encounterProLake County [facility] SystemInstructionsNot on file documented in this encounterLake [facility] SystemInstructions* Attachments The following attachments cannot be sent through Care Everywhere. * Chronic pain (Mexican) documented in this encounterLake [facility] SystemReason for referral (narrative)* Consultation (Routine) - Pending Review Specialty Diagnoses / Procedures Referred By Christiane layton Referred To Contact Dermatology Diagnoses Rash and nonspecific skin eruption Ashley Olvera HUMAN RESOURCES VICE PRESIDENT-TECHNICIAN ASSISTANT [address] [place] [address] Shawanda Cintron MD [address], [address] [place] [address] Referral ID Status Reason Start Date Expiration Date Visits Requested Visits Authorized [id number] Pending Review Specialty Services Required 09/27/2023 09/26/2024 1 1 [facility] Advance Directives No Advanced Directives Records FoundDocuments on File Type Date Recorded 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 Expl 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 Advance Directive(s) 04/04/2016 12:27 PM Advance Directive Response Recorded Date/ Time Advance Directives No September 28 2:49am Documents on File Type Date Recorded 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 Expl anation Advance Directive 04/11/2023 3:23 PM POA Advance Directive 03/08/2023 11:14 AM guar dianship 03/08/2023 Documents on File Type Date Recorded 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 Expl anation Advance Directive 04/11/2023 3:23 PM [...] Contact Diagnoses Arthritis, multiple joint involvement Ashley Olvera HUMAN RESOURCES VICE PRESIDENT-TECHNICIAN ASSISTANT [address] [place] [address] Referral ID Status Reason Start Date Expiration Date V isits Requested Visits Authorized [id number] Pending Review 1 1 Additional Source Comments [...] or prosecute any alcohol or drug abuse patient.[facility] HealthIn the event this information is protected by the Federal Confidentiality of Alcohol and Drug Abuse Patient Records regulations: The Federal rules restrict any use of the information to criminally investigate or prosecute any alcohol or drug abuse patient.[facility] HealthIn the event this information is protected by the Federal Confidentiality of Alcohol and Drug Abuse Patient Records regulations: The Federal rules restrict any use of the information to criminally investigate or prosecute any alcohol or drug abuse patient.[facility] Care Teams (unrecognized sec tion and content) Negative Notcher Relationship Specialty Start Date End Date Richard He PCP - General Family Practice 05/08/14 Negative Notcher Relationship Specialty Start Date End Date Richard He PCP - General Family Medicine 05/08/14 Team Status: Active Member Role Status Dates REILLY GuerreroC Primary Care Provider Active Team Status: Inactive Member Role Status Dates Ashley Olvera , WIC SITE COORDINATOR-C Primary Care Provider Active Juliet Green MD Admit Provider Active Leighton Valente MD Other Provider Active Galen Escobar MD Other Provider Active Lilian Van MD Other Provider Active Silvestre Saunders DO Other Provider Active Bulmaro Moses II, MD Other Provider Active Yani Cyr MD Attending Provider Active Negative Notcher Relationship Specialty Start Date End Date Ashley Olvera HUMAN RESOURCES VICE PRESIDENT-[facility] [address] [place] [address] PCP - General Family Medicine 07/23/19 Negative Notcher Relationship Specialty Start Date End Date Ashley Olvera HUMAN RESOURCES [facility] [address] [place] [address] PCP - General Family Medicine 07/23/19 Negative Notcher Relationship Specialty Start Date End Date Ashley Olvera HUMAN RESOURCES [facility] [address] [place] [address] PCP - General Family Medicine 07/23/19 Negative Notcher Relationship Specialty Start Date End Date Ashley Olvera HUMAN RESOURCES [facility] [address] [place] [address] PCP - General Family Medicine 07/23/19 INFORMATION SOURCE (unrecogn ized section and content) DATE CREATED AUTHOR 04/25/2022 [facility] DATE CREATED AUTHOR AUTHOR'S ORGANIZ ATION 10/17/2022 [facility] DATE CREATED AUTHOR AUTHOR'S ORGANIZ ATION 10/17/2022 [facility] DATE CREATED AUTHOR AUTHOR'S ORGANIZ ATION 11/08/2023 [facility] DATE CREATED AUTHOR AUTHOR'S ORGANIZ ATION 11/22/2023 [facility] FOR RECORDS PERTAINING TO PATIENTS [...] BE BASED ON THE PRIMARY CLINICAL RECORDS. [facility]. provides no warranty or guarantee of the accuracy or completeness of information in this document.
--- NOTE | 2023-12-14 07:59 | XR_ITS ---
The [address] [address] Patient Name: JIM GARCIA MRN: [id number] date: 1935 Sex: F Assigned Patient Location: ER Current Patient Location: ED.MAIN Accession/Order Number: [id number] Exam Date: 12/14/2023 08:10 Report Date: 12/14/2023 08:31 At the request of: AARON ROMERO Procedure: XR lumbar spine 2-3V EXAMINATION: XR lumbar spine 2-3V HISTORY: fall, pain COMPARISON: 12/06/2023 FINDINGS: BONES: Stable L2 fracture with increased sclerosis consistent with sclerotic healing. Retropulsion of the posterior superior margin into the central canal, unchanged. Compression fractures of T11 and T12, unchanged. Mild spondylosis. Moderate facet osteoarthropathy. Levocurvature centered at L3. DISC SPACES: Normal. No significant disc height narrowing, subluxation, or endplate abnormality. PARASPINOUS: Negative. No paraspinous abnormality is seen. OTHER: Negative. XR/XR lumbar spine 2-3V IMPRESSION: Stable thoracic and lumbar vertebral body fractures Electronically authenticated by: SOPHIE BARKER Date: 12/14/2023 08:31
[2023-12-14 08:42] VITALS: BP 146/74; PULSE 79; O2SAT 98
--- NOTE | 2023-12-14 08:55 | ED_ITS ---
HPI HPI - Fall General Chief Complaint: Fall Stated Complaint: FALL, LEG PAIN Time Seen by Provider: 12/14/23 07:07 Source: patient Mode of arrival: ambulance Limitations: altered mental status History of Present Illness HPI Narrative: 88-year-old female presents because she was found on the floor of her [facility]. She has dementia and is unable to provide any history. It was presumed that she fell but it was not witnessed. This happened today and no further history is obtainable. Related Data Home Medications ?Medication ?Instructions ?Recorded ?Confirmed acetaminophen 325 mg tablet 325 mg PO Q6H PRN fever or pain 04/10/23 09/30/23 (Tylenol) aspirin 325 mg capsule 325 mg PO DAILY 04/10/23 09/30/23 calcium carbonate 600 mg-vitamin 1 tab PO DAILY 04/10/23 09/30/23 D3 20 mcg (800 unit) chewable tablet (Caltrate 600 plus D) cholecalciferol (vitamin D3) 50 50 mcg PO DAILY 04/10/23 09/30/23 mcg (2,000 unit) capsule ferrous sulfate 325 mg (65 mg 325 mg PO DAILY 04/10/23 09/30/23 iron) tablet,delayed release sertraline 25 mg tablet 25 mg PO Q24H 04/10/23 09/30/23 diphenhydramine HCl 25 mg capsule 25 mg PO Q4H PRN itching 09/30/23 09/30/23 (Allergy (diphenhydramine)) Previous Rx's ?Medication ?Instructions ?Recorded clobetasol 0.05 % topical cream 1 applic topical DAILY 2 weeks #60 09/22/23 grams amlodipine 5 mg tablet 5 mg PO QD 30 days #30 tabs 10/02/23 amoxicillin 875 mg-potassium 1 tab PO BID 7 days #14 tabs 10/02/23 clavulanate 125 mg tablet lidocaine 5 % topical patch 1 patch topical DAILY #30 ea 10/02/23 (Lidoderm) tramadol 50 mg tablet 50 mg PO Q8H PRN pain #20 tabs 10/02/23 Allergies Allergy/AdvReac Type Severity Reaction Status Date / Time No Known Drug Allergies Allergy Verified 12/06/23 19:53 Opioid HPI Opioid Management Most Recent Pain and Opioid Data: Last Pain Scale 7 10/02/23 10:38 Last Pain Intensity 6 10/02/23 10:38 Last ORT Total Score 0 10/01/23 03:53 Last ORT Risk Category Low Risk 10/01/23 03:53 Review of Systems ROS Narrative Unable to be obtained, dementia [facility] Medical History (Updated 12/14/23 @ 08:55 by Felice Echols MD) Acute hyponatremia ?E87.1 - Hypo-osmolality and hyponatremia (ICD-10) Acute back pain ?M54.9 - Dorsalgia, unspecified (ICD-10) Keratitis ?H16.9 - Unspecified keratitis (ICD-10) Rash and nonspecific skin eruption ?R21 - Rash and other nonspecific skin eruption (ICD-10) Ankle sprain and strain ?S93.409A - Sprain of unspecified ligament of unspecified ankle, initial encounter (ICD-10) ?S96.919A - Strain of unspecified muscle and tendon at ankle and foot level, unspecified foot, initial encounter (ICD-10) Acute anterior epistaxis ?R04.0 - Epistaxis (ICD-10) Chronic mastoiditis, 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 - Chronic mastoiditis, right ear (ICD-10) Bilateral fracture of pubic rami with routine healing ?S32.591D - Other specified fracture of right pubis, subsequent encounter for fracture with routine healing (ICD-10) ?S32.592D - Other specified fracture of left pubis, subsequent encounter for fracture with routine healing (ICD-10) Pubic bone fracture ?S32.509A - Unspecified fracture of unspecified pubis, initial encounter for closed fracture (ICD-10) Hip fracture, intertrochanteric ?S72.143A - Displaced intertrochanteric fracture of unspecified femur, initial encounter for closed fracture (ICD-10) H/O fracture of hip ?Z87.81 - Personal history of (healed) traumatic fracture (ICD-10) Closed sacral fracture ?S32.10XA - Unspecified fracture of sacrum, initial encounter for closed fracture (ICD-10) Dementia ?F03.90 - Unspecified dementia, unspecified severity, without behavioral disturbance, psychotic disturbance, mood disturbance, and anxiety (ICD-10) Osteoporosis ?M81.0 - Age-related osteoporosis without current pathological fracture (ICD- 10) Social History (Updated 10/01/23 @ 03:49 by Caity Anstead, RN) Within the past year, how often did you have a drink containing alcohol: never Score interpretation: A score less than 3 is consistent with normal alcohol consumption. Smoking status: Former smoker Non-prescribed substance use: denies use Gender Identity: female Exam Narrative Exam Narrative: Nurses note and vital signs reviewed and patient is not hypoxic. General: The patient appears generally weak and in no acute distress Skin: Warm, dry, no pallor noted. There is no rash noted. Head: Normocephalic, atraumatic Eye: Normal conjunctiva, no drainage Ears, Nose, Mouth, and Throat: oral mucosa is moist. Nares patent. Cardiovascular: Regular Rate and Rhythm Respiratory: Patient is in no distress, no accessory muscle use, lungs are clear to auscultation, no wheezing, rales or rhonchi Back: Cervical and thoracic spines are nontender. She has no bruise or rash or abrasions on her lower back. She does not seem to have any palpable tenderness. She seems to be complaining of pain when she moved her lower back. GI: Soft and nontender Musculoskeletal: No tenderness to all 4 extremities. Neurological: Awake and alert. She does not know where she is or why she is here or what year it is. Psychiatric: Cooperative Constitutional Vital Signs, click to edit/add: Last Vital Signs Temp 98.3 F 12/14/23 07:03 Pulse 79 12/14/23 08:42 Resp 16 12/14/23 08:42 BP 146/74 H 12/14/23 08:42 Pulse Ox 98 12/14/23 08:42 O2 Del Method Room Air 12/14/23 07:03 Course Vital Signs Vital signs: Vital Signs Temperature 98.3 F 12/14/23 07:03 Pulse Rate 74 12/14/23 07:03 Respiratory Rate 16 12/14/23 07:03 Blood Pressure 168/77 H 12/14/23 07:03 Pulse Oximetry 95 12/14/23 07:03 Oxygen Delivery Method Room Air 12/14/23 07:03 Temperature 98.3 F 12/14/23 07:03 Pulse Rate 79 12/14/23 08:42 Respiratory Rate 16 12/14/23 08:42 Blood Pressure 146/74 H 12/14/23 08:42 Pulse Oximetry 98 12/14/23 08:42 Oxygen Delivery Method Room Air 12/14/23 07:03 MDM - Fall MDM Narrative Medical decision making narrative: Lumbar films were obtained. These show no acute findings per radiologist. She does not have any other apparent injury. She is released back to [facility]. Differential Diagnosis Differential diagnosis: Likely syncope, compression fracture and other (fall) Imaging Data Lumbar x-ray: Radiologist's impression: ITS Impressions Lumbar Spine X-Ray 12/14/23 07:59 IMPRESSION: Stable thoracic and lumbar vertebral body fractures Electronically authenticated by: SOPHIE BARKER Date: 12/14/2023 08:31 Discharge Plan Discharge Stand Alone Forms: Portal Instructions Chief Complaint: Fall Clinical Impression: Fall Patient Disposition: Home, Self-Care Time of Disposition Decision: 08:54 Condition: Good Mode of Transportation: Private Vehicle Prescriptions / Home Meds: No Action clobetasol 0.05 % cream 1 applic topical DAILY 14 Days Qty: 60 1RF sertraline 25 mg tablet 25 mg PO Q24H ferrous sulfate 325 mg (65 mg iron) tablet,delayed release (DR/EC) 325 mg PO DAILY cholecalciferol (vitamin D3) 50 mcg (2,000 unit) capsule 50 mcg PO DAILY Rx Instructions: 1000 units daily aspirin 325 mg capsule 325 mg PO DAILY Caltrate 600 plus D 600 mg-20 mcg (800 unit) tablet,chewable 1 tab PO DAILY acetaminophen [Tylenol] 325 mg tablet 325 mg PO Q6H PRN (Reason: fever or pain) diphenhydramine HCl [Allergy (diphenhydramine)] 25 mg capsule 25 mg PO Q4H PRN (Reason: itching) amlodipine 5 mg Tablet 5 mg PO QD 30 Days Qty: 30 0RF amoxicillin-pot clavulanate 875-125 mg tablet 1 tab PO BID 7 Days Qty: 14 0RF lidocaine [Lidoderm] 5 % adhesive patch,medicated 1 patch topical DAILY Qty: 30 0RF Rx Instructions: leave on most painful area (tailbone/lumbar spine) for up to 12 hrs tramadol 50 mg tablet 50 mg PO Q8H PRN (Reason: pain) Qty: 20 0RF Print Language: Tuvaluan Instructions: Fall Prevention for Older Adults (ED) Referrals: ASHLEY BONILLA [Primary Care Provider] - 1 week
--- NOTE | 2023-12-14 15:25 | ECG_ITS ---
The [facility] Test Date: 2023-12-14 Pat Name: JIM GARCIA Department: Room: - Gender: Female Pmo Consultant: : 1935 Requested By: Chantell Olvera Order Number: [id number] Reading MD: GAB FONSECA Measurements Intervals Jay Rate: 73 P: 81 MT: 146 QRS: 40 QRSD: 86 T: 67 QT: 392 QTc: 418 Interpretive Statements 1100 Sinus rhythm 9110 normal ECG Compared to ECG 09/27/2022 22:34:28 No significant changes Electronically Signed On 12-19-2023 9:44:24 EDT by GAB FONSECA
== END 2023-12-14 11:01 | disposition home or self-care (01) ==
PROVIDERS: Emergency Provider Emergency Medicine; PCP Nurse Practitioner
DX: Z04.3 Encounter for examination and observation following other accident (principal); F03.90 Unspecified dementia, unspecified severity, without behavioral disturbance, psychotic disturbance, mood disturbance, and anxiety
CPT/HCPCS: 72100; 84484; 93005; 99283

== ENCOUNTER 2023-12-27 06:27 | Emergency (ER) | payer MEDICARE, SELFPAY ==
[2023-12-27 06:28] VITALS: BP 194/90; PULSE 76; TEMP 36.7; O2SAT 97
--- NOTE | 2023-12-27 06:38 | XR_ITS ---
The [address] [address] Patient Name: JIM GARCIA MRN: [id number] date: 1935 Sex: F Assigned Patient Location: ER Current Patient Location: ER Accession/Order Number: [id number] Exam Date: 12/27/2023 06:53 Report Date: 12/27/2023 07:20 At the request of: AARON ROMERO Procedure: XR hip RT min 2V EXAM: XR hip RT min 2V HISTORY: Fall; technologist notes state right hip and knee pain following a fall. COMPARISON: None. TECHNIQUE: AP and lateral views of the right hip performed. FINDINGS: The bony structures are osteopenic. There is no acute fracture. There are old healed fracture deformities of the right symphysis and right superior and inferior pubic rami. The right hip joint is unremarkable. There is no avascular necrosis. There are mild discogenic degenerative changes at L4-5. The sacrum is unremarkable. The bilateral sacral joints are unremarkable. The symphysis is intact. There is anastomotic suture within the right lower abdomen. There are pelvic phleboliths. No soft tissue abnormality is identified. XR/XR hip RT min 2V IMPRESSION: There is no acute fracture. There are old healed fracture deformities of the right symphysis and right superior and inferior pubic rami. The right hip joint is unremarkable. Mild degenerative changes at L4-5. The bony structures are osteopenic. Electronically authenticated by: FRANCOIS RICCI Date: 12/27/2023 07:20
--- NOTE | 2023-12-27 06:38 | XR_ITS ---
The [address] [address] Patient Name: JIM GARCIA MRN: [id number] date: 1935 Sex: F Assigned Patient Location: ER Current Patient Location: ER Accession/Order Number: [id number] Exam Date: 12/27/2023 06:53 Report Date: 12/27/2023 07:16 At the request of: AARON ROMERO Procedure: XR knee RT 3V EXAM: XR knee RT 3V HISTORY: Fall; technologist notes state right hip and knee pain following a fall and redness and bruising lateral aspect of the right knee. COMPARISON: Right femur series dated 03/31/2022. TECHNIQUE: AP, oblique and crosstable lateral views of the right knee performed. FINDINGS: The bony structures are osteopenic. There is no fracture. The joint spaces are maintained. There is no joint effusion at the knee. There is atheromatous calcification. No soft tissue abnormality is otherwise identified. XR/XR knee RT 3V IMPRESSION: There is no acute fracture or malalignment. The bony structures are osteopenic. Electronically authenticated by: FRANCOIS RICCI Date: 12/27/2023 07:16
--- NOTE | 2023-12-27 06:41 | ED.FALL1 ---
HPI HPI - Fall General Chief Complaint: Fall Stated Complaint: KNEE PAIN Time Seen by Provider: 12/27/23 06:38 History of Present Illness HPI Narrative: 88-year-old female presented for a probable fall. She has dementia and is unable to provide any history whatsoever. She was reported to have fallen. She has some erythema at the lateral aspect of her right knee. She does not know what happened. She was transported here by paramedics. This reportedly happened within the last 2 hours. Related Data Home Medications ?Medication ?Instructions ?Recorded ?Confirmed acetaminophen 325 mg tablet 325 mg PO Q6H PRN fever or pain 04/10/23 09/30/23 (Tylenol) aspirin 325 mg capsule 325 mg PO DAILY 04/10/23 09/30/23 calcium carbonate 600 mg-vitamin 1 tab PO DAILY 04/10/23 09/30/23 D3 20 mcg (800 unit) chewable tablet (Caltrate 600 plus D) cholecalciferol (vitamin D3) 50 50 mcg PO DAILY 04/10/23 09/30/23 mcg (2,000 unit) capsule ferrous sulfate 325 mg (65 mg 325 mg PO DAILY 04/10/23 09/30/23 iron) tablet,delayed release sertraline 25 mg tablet 25 mg PO Q24H 04/10/23 09/30/23 diphenhydramine HCl 25 mg capsule 25 mg PO Q4H PRN itching 09/30/23 09/30/23 (Allergy (diphenhydramine)) Previous Rx's ?Medication ?Instructions ?Recorded clobetasol 0.05 % topical cream 1 applic topical DAILY 2 weeks #60 09/22/23 grams amlodipine 5 mg tablet 5 mg PO QD 30 days #30 tabs 10/02/23 amoxicillin 875 mg-potassium 1 tab PO BID 7 days #14 tabs 10/02/23 clavulanate 125 mg tablet lidocaine 5 % topical patch 1 patch topical DAILY #30 ea 10/02/23 (Lidoderm) tramadol 50 mg tablet 50 mg PO Q8H PRN pain #20 tabs 10/02/23 Allergies Allergy/AdvReac Type Severity Reaction Status Date / Time No Known Drug Allergies Allergy Verified 12/06/23 19:53 Opioid HPI Opioid Management Most Recent Pain and Opioid Data: Last Pain Scale 7 10/02/23 10:38 Last Pain Intensity 6 10/02/23 10:38 Last ORT Total Score 0 10/01/23 03:53 Last ORT Risk Category Low Risk 10/01/23 03:53 Review of Systems ROS Narrative Unobtainable, dementia [facility] Medical History (Updated 12/27/23 @ 06:41 by Felice Echols MD) Acute hyponatremia ?E87.1 - Hypo-osmolality and hyponatremia (ICD-10) Acute back pain ?M54.9 - Dorsalgia, unspecified (ICD-10) Keratitis ?H16.9 - Unspecified keratitis (ICD-10) Rash and nonspecific skin eruption ?R21 - Rash and other nonspecific skin eruption (ICD-10) Ankle sprain and strain ?S93.409A - Sprain of unspecified ligament of unspecified ankle, initial encounter (ICD-10) ?S96.919A - Strain of unspecified muscle and tendon at ankle and foot level, unspecified foot, initial encounter (ICD-10) Acute anterior epistaxis ?R04.0 - Epistaxis (ICD-10) Chronic mastoiditis, 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 - Chronic mastoiditis, right ear (ICD-10) Bilateral fracture of pubic rami with routine healing ?S32.591D - Other specified fracture of right pubis, subsequent encounter for fracture with routine healing (ICD-10) ?S32.592D - Other specified fracture of left pubis, subsequent encounter for fracture with routine healing (ICD-10) Pubic bone fracture ?S32.509A - Unspecified fracture of unspecified pubis, initial encounter for closed fracture (ICD-10) Hip fracture, intertrochanteric ?S72.143A - Displaced intertrochanteric fracture of unspecified femur, initial encounter for closed fracture (ICD-10) H/O fracture of hip ?Z87.81 - Personal history of (healed) traumatic fracture (ICD-10) Closed sacral fracture ?S32.10XA - Unspecified fracture of sacrum, initial encounter for closed fracture (ICD-10) Dementia ?F03.90 - Unspecified dementia, unspecified severity, without behavioral disturbance, psychotic disturbance, mood disturbance, and anxiety (ICD-10) Osteoporosis ?M81.0 - Age-related osteoporosis without current pathological fracture (ICD-10) Social History (Updated 10/01/23 @ 03:49 by Caity Anstead, RN) Within the past year, how often did you have a drink containing alcohol: never Score interpretation: A score less than 3 is consistent with normal alcohol consumption. Smoking status: Former smoker Non-prescribed substance use: denies use Gender Identity: female Exam Narrative Exam Narrative: Nurses note and vital signs reviewed and patient is not hypoxic. General: The patient appears well and in no apparent distress. Patient is resting comfortably on cart. Skin: Warm, dry, no pallor noted. There is no rash noted. Head: Normocephalic, atraumatic Eye: Normal conjunctiva, no drainage Ears, Nose, Mouth, and Throat: oral mucosa is moist. Nares patent. Cardiovascular: Regular Rate and Rhythm Respiratory: Patient is in no distress, no accessory muscle use, lungs are clear to auscultation, no wheezing, rales or rhonchi Back: non-tender GI: Soft and nontender Musculoskeletal: She has some erythema at the inferior lateral aspect of the right knee. Ankle knee and hip all have full range of motion actively and passively Neurological: Awake and alert. She knows her name. She does not know where she is or what year it is or why she is here Psychiatric: Cooperative Constitutional Vital Signs, click to edit/add: Last Vital Signs Temp 98.1 F 12/27/23 06:28 Pulse 76 12/27/23 06:28 Resp 16 12/27/23 06:28 BP 194/90 H 12/27/23 06:28 Pulse Ox 97 12/27/23 06:28 O2 Del Method Room Air 12/27/23 06:28 Course Vital Signs Vital signs: Vital Signs Temperature 98.1 F 12/27/23 06:28 Pulse Rate 76 12/27/23 06:28 Respiratory Rate 16 12/27/23 06:28 Blood Pressure 194/90 H 12/27/23 06:28 Pulse Oximetry 97 12/27/23 06:28 Oxygen Delivery Method Room Air 12/27/23 06:28 Temperature 98.1 F 12/27/23 06:28 Pulse Rate 76 12/27/23 06:28 Respiratory Rate 16 12/27/23 06:28 Blood Pressure 194/90 H 12/27/23 06:28 Pulse Oximetry 97 12/27/23 06:28 Oxygen Delivery Method Room Air 12/27/23 06:28 MDM - Fall MDM Narrative Medical decision making narrative: X-rays are ordered and the patient is signed out to Dr. Jacobs. Discharge Plan Discharge Patient Disposition: Still a Patient
--- OUTSIDE RECORDS SUMMARY | 2023-12-27 06:49 | XMS_ITS | CCD ---
Author Organization [facility] Team Providers Care Livestock Handler Name Role Phone Rylie Galvan Unavailable Richard He Primary Care Provider UnavailRichard Loomis Primary Care Provider UnavailRichard Loomis Primary Care Provider UnavailJULES Chaves Primary Care Provider MD Juliet Green Admit Provider MD Leighton Valente Other Provider MD Galen Escobar Other Provider [phone] MD Lilian Van Other Provider [phone] DO Silvestre Saunders Other Provider MD Bulmaro [...] Consulting Unavailable MADELEINE HEREDIA Consulting Unavailable RAYMUNDO .DR DE GUZMAN Attending Unavailable OLVERA, ASHLEY Primary Care Unavailable [...] Moses II Consulting UnavailLeighton Anglin Unavailable Olvera FERRY OPERATORSARAH, Ashley J Primary Care Provid er ITALO [...] Unavailable OLVERA, ASHLEY J Primary Care Unavailable OLVEAR, ASHLEY J Attending Unavailable OLVERA, ASHLEY J [...] a day Active take 1 tablet by [facility] every twenty-four hours Ferrous Sulfate 325 (65 [...] 0 Active take 1 capsule by mo [facility] every twenty-four hours Lutein 20 MG 1 [...] Comment on above: Take 1 capsule by [facility] twice daily. Take 1 capsule [...] Other [facility] (current) drug therapy; Translations: [OTH PATIENT CARE DIRECTOR CURRENT DRUG THERAPY] Onset: 09-29-2022 Episodic Other [...] 10-14-2022 BASO # 0.0 103/ul Normal 0.0-0.1 [facility] Comment on above: Performed By: #### C DONA, LEONCIODM #### [facility] [address] [place] [address] Dr. Nidhi Dawn Basophils/100 WBC (Bld) 0.3 % Normal 0.2-2.0 [facility] Comment on above: Performed By: #### C DONA, LEONCIODM #### [facility] [address] [place] [address] Dr. Nidhi Dawn EO # 0.1 103/ul Normal 0.0-0.7 [facility] Comment on above: Performed By: #### C DONA, HELENA #### [facility] [address] [place] [address] Dr. Nidhi Dawn Eosinophils/100 WBC (Bld) 1.2 % Normal 0.9-7.0 [facility] Comment on above: Performed By: #### C DONA, LEONCIODM #### [facility] [address] [place] [address] Dr. Nidhi Dawn Erythrocyte distribution width (RBC) [Ratio] 15.7 % Critically high 11.0-15.0 [facility] Comment on above: Performed By: #### C DONA, LEONCIODM #### [facility] [address] [place] [address] Dr. Nidhi Dawn Hematocrit (Bld) [Volume fraction] 28.5 % Critically low 36.0-48.0 [facility] Comment on above: Performed By: #### C DONA, LEONCIODM #### [facility] [address] [place] [address] Dr. Nidhi Dawn Hemoglobin (Bld) [Mass/Vol] 8.9 g/dL Critically low 12.0-16.[address] [facility] Comment on above: Performed By: #### C DONA, LEONCIODM #### [facility] [address] [place] [address] Dr. Nidhi Dawn IG # 0.04 10e3/ul Critically high 0.00-0.[address] [facility] Comment on above: Performed By: #### C DONA, LEONCIODM #### [facility] [address] [place] [address] Dr. Nidhi Dawn IG % 0.7 % Critically high 0.0-0.[address] [facility] Comment on above: Performed By: #### C LEONCIO CARCAMODM #### [facility] [address] [place] [address] Dr. Nidhi Dawn LYMPH # 0.9 103/ul Critically low 1.2-3.[address] [facility] Comment on above: Performed By: #### C LEONCIO CARCAMODM #### [facility] [address] [place] [address] Dr. Nidhi Dawn Lymphocytes/100 WBC (Bld) 15.6 % Critically low 20.5-60.[address] [facility] Comment on above: Performed By: #### C LEONCIO CARCAMODM #### [facility] [address] [place] [address] Dr. Nidhi Dawn MANUAL DIFF REQ NO Normal [facility] Comment on above: Performed By: #### C DONA, LEONCIODM #### [facility] [address] [place] [address] Dr. Nidhi Dawn MCH (RBC) [Entitic mass] 30.8 pg Normal 26.7-34.[address] [facility] Comment on above: Performed By: #### C DONA, LEONCIODM #### [facility] [address] [place] [address] Dr. Nidhi Dawn MCHC (RBC) [Mass/Vol] 31.2 g/dL Normal 29.9-35.[address] [facility] Comment on above: Performed By: #### C DONA, LEONCIODM #### [facility] [address] [address] [address] Nidhi Dawn MCV (RBC) [Entitic vol] 98.6 fL Normal 81.0-99.[address] [facility] Comment on above: Performed By: #### C MP, CMADM #### [facility] [address] [address] [address] Nidhi Dawn MONO # 0.7 103/ul Normal 0.3-0.[address] [facility] Comment on above: Performed By: #### C MP, CMADM #### [facility] [address] [place] [address] Dr. Nidhi Dawn Monocytes/100 WBC (Bld) 11.1 % Normal 1.7-12.0 [facility] Comment on above: Performed By: #### C MP, CMADM #### [facility] [address] [place] [address] Dr. Nidhi Dawn NEUT # 4.2 103/ul Normal 1.4-6.5 [facility] Comment on above: Performed By: #### C MP, CMADM #### [facility] [address] [place] [address] Dr. Nidhi Dawn Neutrophils/100 WBC (Bld) 71.1 % Normal 43.0-75.0 [facility] Comment on above: Performed By: #### C MP, CMADM #### [facility] [address] [place] [address] Dr. Nidhi Dawn Platelet mean volume (Bld) [Entitic vol] 8.5 fL Critically low 9.5-13.[address] [facility] Comment on above: Performed By: #### C MP, CMADM #### [facility] [address] [place] [address] Dr. Nidhi Dawn PLT 614 103/ul Critically high 150-[address] [facility] Comment on above: Performed By: #### C MP, CMADM #### [facility] [address] [place] [address] Dr. Nidhi Dawn RBC 2.89 106/ul Critically low 4.20-5.[address] [facility] Comment on above: Performed By: #### C HELENA CARCAMO #### [facility] [address], [place] [address] Dr. Nidhi Dawn WBC 5.8 103/ul Normal 4.0-11.0 [facility] Comment on above: Performed By: #### C DONA, LEONCIODM #### [facility] [address], [place] [address] Dr. Nidhi Dawn Basic Metabolic Panelon 09-21 Anion gap [Moles/Vol] 8.2 mmol/L Normal 6.0-15.0 [facility] Comment on above: Performed By: #### F ER, FE and TIBC #### [facility] [address] Calcium [Mass/Vol] 9.1 mg/dL Normal 8.6-10.3 [facility] Comment on above: Performed By: #### F ER, FE and TIBC #### [facility] [address] [place] [address] [place] Chloride [Moles/Vol] 102 mmol/L Normal 98-107 [facility] Comment on above: Performed By: #### F ER, FE and TIBC #### [facility] [address] CO2 [Moles/Vol] 30.5 mmol/L Normal 21.0-31.0 [facility] Comment on above: Performed By: #### F ER, FE and TIBC #### [facility] [address] [place] [address] [place] Creatinine [Mass/Vol] 0.35 mg/dL Low 0.60-1.20 [facility] Comment on above: Performed By: #### F ER, FE and TIBC #### [facility] [address] [place] [address] [place] Creatinine Clr Calc Pharmacy 35.59 Normal [facility] Comment on above: Result Comment: PERF ORMED BY: [place] [address] PATHOLOGIST WINDOW DRAPER CLARICE OSWALD M.D. Performed By: #### F ER, FE and TIBC #### [facility] [address] [place] [address] [place] GFR/1.73 sq M.predicted MDRD (S/P/Bld) [Vol rate/Area] mL/min/{1.73_m2} Normal [facility] Comment on above: Performed By: #### F ER, FE and TIBC #### [facility] [address] Glucose [Mass/Vol] 104 mg/dL Normal 74-109 [facility] Comment on above: Result Comment: [facility] Glucose Reference Range is dependent on time and content of last meal. Glucose of more than 200 mg/dL in a nonstressed, ambulatory subject supports the diagnosis of Diabetes Mellitus. ADA recommended reference range Performed By: #### F ER, FE and TIBC #### [facility] [address] Potassium [Moles/Vol] 3.7 mmol/L Normal 3.5-5.1 [facility] Comment on above: Performed By: #### F ER, FE and TIBC #### [facility] [address] [place] [address] [place] Sodium [Moles/Vol] 137 mmol/L Normal 136-145 [facility] Comment on above: Performed By: #### F ER, FE and TIBC #### [facility] [address] [place] [address] [place] Urea nitrogen [Mass/Vol] 10 mg/dL Normal 7-25 [facility] Comment on above: Performed By: #### F ER, FE and TIBC #### [facility] [address] [place] [address] [place] Basophils Auto (Bld) [#/Vol] Ordered By: Yani Cyr on 10-03-2022 Basophils (Bld) [#/Vol] 0.0 10*3/uL 0.0-0.2 [facility] Basophils/100 WBC Auto (Bld) Ordered By: Yani Cyr on 10-03-2022 Basophils/100 WBC (Bld) 0.4 % . [facility] Calcium [Mass/volume] in Ser um or PlasmaOrdered By: Yani Cyr on 10-03-2022 Calcium [Mass/Vol] 9.1 mg/dL 8.6-10.3 [facility] Carbon dioxide, total [Moles /volume] in Serum or PlasmaOrdered By: Yani Cyr on 10-03-2022 CO2 [Moles/Vol] 30.5 mmol/L 21.0-31.0 [facility] Chloride [Moles/volume] in S enma or PlasmaOrdered By: Yani Cyr on 10-03-2022 Chloride [Moles/Vol] 102 mmol/L 98-107 [facility] Complete Blood Count Auto Di ffon 10-03-2022 Basophils (Bld) [#/Vol] 0.0 10*3/uL Normal 0.0-0.2 [facility] Comment on above: Result Comment: PERF ORMED BY: [place] [address] PATHOLOGIST WINDOW DRAPER CLARICE OSWALD M.D. Performed By: #### F ER, FE and TIBC #### [facility] [address] [place] [address] [place] Basophils/100 WBC (Bld) 0.4 % Normal . [facility] Comment on above: Performed By: #### F ER, FE and TIBC #### [facility] [address] [place] [address] [place] Eosinophils (Bld) [#/Vol] 0.1 10*3/uL Normal 0.0-0.45 [facility] Comment on above: Performed By: #### F ER, FE and TIBC #### [facility] [address] [place] [address] [place] Eosinophils/100 WBC (Bld) 1.9 % Normal . [facility] Comment on above: Performed By: #### F ER, FE and TIBC #### [facility] [address] [place] [address] [place] Erythrocyte distribution width (RBC) [Ratio] 14.5 % Normal 11.9-15.3 [facility] Comment on above: Performed By: #### F ER, FE and TIBC #### [address] Hematocrit (Bld) [Volume fraction] 25.7 % Low 34.0-46.4 [facility] Comment on above: Performed By: #### F ER, FE and TIBC #### [address] Hemoglobin (Bld) [Mass/Vol] 8.7 g/dL Low 11.8-15.4 [facility] Comment on above: Performed By: #### F ER, FE and TIBC #### [address] Lymphocytes (Bld) [#/Vol] 1.1 10*3/uL Normal 1.00-4.8 [facility] Comment on above: Performed By: #### F ER, FE and TIBC #### [address] Lymphocytes/100 WBC (Bld) 14.2 % Normal . [facility] Comment on above: Performed By: #### F ER, FE and TIBC #### [address] MCH (RBC) [Entitic mass] 31.5 pg Normal 24.7-34.3 [facility] Comment on above: Performed By: #### F ER, FE and TIBC #### [address] MCV (RBC) [Entitic vol] 92.5 fL Normal 80-100 [facility] Comment on above: Performed By: #### F ER, FE and TIBC #### [address] Mean Corpuscular HGB Conc 34.1 g/dL Normal 32.0-35.0 [facility] Comment on above: Performed By: #### F ER, FE and TIBC #### [address] Monocytes (Bld) [#/Vol] 0.8 10*3/uL Normal 0.0-0.8 [facility] Comment on above: Performed By: #### F ER, FE and TIBC #### [address] Monocytes/100 WBC (Bld) 10.5 % Normal . [facility] Comment on above: Performed By: #### F ER, FE and TIBC #### [address] Neutrophils (Bld) [#/Vol] 5.5 10*3/uL Normal 1.8-7.7 [facility] Comment on above: Performed By: #### F ER, FE and TIBC #### [address] Neutrophils/100 WBC (Bld) 73.0 % Normal . [facility] Comment on above: Performed By: #### F ER, FE and TIBC #### [address] NRBC% 0.1 /100{WBC} Normal 0-0.5 [facility] Comment on above: Performed By: #### F ER, FE and TIBC #### [address] Platelet mean volume (Bld) [Entitic vol] 7.5 fL Normal 6.3-10.7 [facility] Comment on above: Performed By: #### F ER, FE and TIBC #### [address] Platelets (Bld) [#/Vol] 322 10*3/uL Normal 150-450 [facility] Comment on above: Performed By: #### F ER, FE and TIBC #### [address] RBC (Bld) [#/Vol] 2.77 10*6/uL Low 3.60-5.00 [facility] Comment on above: Performed By: #### F ER, FE and TIBC #### [address] WBC (Bld) [#/Vol] 7.6 10*3/uL Normal 3.8-11.6 [facility] Comment on above: Performed By: #### F ER, FE and TIBC #### [facility] [address] Creatinine [Mass/volume] in Serum or PlasmaOrdered By: Yani Cyr on 10-03-2022 Creatinine [Mass/Vol] 0.35 mg/dL 0.60-1.20 [facility] Eosinophils Auto (Bld) [#/Vo l]Ordered By: Yani Cyr on 10-03-2022 Eosinophils (Bld) [#/Vol] 0.1 10*3/uL 0.0-0.45 [facility] Eosinophils/100 WBC Auto (Bl d)Ordered By: Yani Cyr on 10-03-2022 Eosinophils/100 WBC (Bld) 1.9 % . [facility] Erythrocyte distribution wid th Auto (RBC) [Ratio]Ordered By: Yani Cyr on 10-03-2022 Erythrocyte distribution width (RBC) [Ratio] 14.5 % 11.9-15.3 [facility] Glucose [Mass/volume] in Ser um or PlasmaOrdered By: Yani Cyr on 10-03-2022 Glucose [Mass/Vol] 104 mg/dL 74-109 [facility] Comment on above: ADA recommended refe rence rangeRandom Glucose Reference Range is dependent on time and content of last meal. Glucose of more than 200 mg/dL in a nonstressed, ambulatory subject supports the diagnosis of Diabetes Mellitus. Hematocrit Auto (Bld) [Volum e fraction]Ordered By: Yani Cyr on 10-03-2022 Hematocrit (Bld) [Volume fraction] 25.7 % 34.0-46.4 [facility] Hemoglobin [Mass/volume] in BloodOrdered By: Yani Cyr on 10-03-2022 Hemoglobin (Bld) [Mass/Vol] 8.7 g/dL 11.8-15.4 [facility] Laboratory - Chemistry and C hemistry - challengeOrdered By: Yani Cyr on 10-03-2022 GFR/1.73 sq M.predicted MDRD (S/P/Bld) [Vol rate/Area] mL/min/{1.73_m2} [facility] Leukocytes [#/volume] correc anna marie for nucleated erythrocytes in Blood by Automated counOrdered By: Yani Cyr on 10-03-2022 WBC corrected for nucl RBC Auto (Bld) [#/Vol] 7.6 10*3/uL 3.8-11.6 [facility] Lymphocytes Auto (Bld) [#/Vo l]Ordered By: Yani Cyr on 10-03-2022 Lymphocytes (Bld) [#/Vol] 1.1 10*3/uL 1.00-4.8 [facility] Lymphocytes/100 WBC Auto (Bl d)Ordered By: Yani Cyr on 10-03-2022 Lymphocytes/100 WBC (Bld) 14.2 % . [facility] MCH Auto (RBC) [Entitic mass ]Ordered By: Yani Cyr on 10-03-2022 MCH (RBC) [Entitic mass] 31.5 pg 24.7-34.3 [facility] MCHC Auto (RBC) [Mass/Vol]Or dered By: Yani Cyr on 10-03-2022 MCHC (RBC) [Mass/Vol] 34.1 g/dL 32.0-35.0 [facility] MCV Auto (RBC) [Entitic vol] Ordered By: Yani Cyr on 10-03-2022 MCV (RBC) [Entitic vol] 92.5 fL 80-100 [facility] Monocytes Auto (Bld) [#/Vol] Ordered By: Yani Cyr on 10-03-2022 Monocytes (Bld) [#/Vol] 0.8 10*3/uL 0.0-0.8 [facility] Monocytes/100 WBC Auto (Bld) Ordered By: Yani Cyr on 10-03-2022 Monocytes/100 WBC (Bld) 10.5 % . [facility] Neutrophils Auto (Bld) [#/Vo l]Ordered By: Yani Cyr on 10-03-2022 Neutrophils (Bld) [#/Vol] 5.5 10*3/uL 1.8-7.7 [facility] Neutrophils/100 WBC Auto (Bl d)Ordered By: Yani Cyr on 10-03-2022 Neutrophils/100 WBC (Bld) 73.0 % . [facility] No Panel InformationOrdered By: Yani Cyr on 10-03-2022 Pharmacy Creatinine Clearance (Chem 35.59 [facility] Nucleated erythrocytes [Pres ence] in Blood by Automated countOrdered By: Yani Cyr on 10-03-2022 Nucleated RBC Auto Ql (Bld) 0.1 /100{WBC} 0-0.5 [facility] Platelet mean volume Auto (B ld) [Entitic vol]Ordered By: Yani Cyr on 10-03-2022 Platelet mean volume (Bld) [Entitic vol] 7.5 fL 6.3-10.7 [facility] Platelets Auto (Bld) [#/Vol] Ordered By: Yani Cyr on 10-03-2022 Platelets (Bld) [#/Vol] 322 10*3/uL 150-450 [facility] Potassium [Moles/volume] in Serum or PlasmaOrdered By: Yani Cyr on 10-03-2022 Potassium [Moles/Vol] 3.7 mmol/L 3.5-5.1 [facility] RBC Auto (Bld) [#/Vol]Ordere d By: Yani Cyr on 10-03-2022 RBC (Bld) [#/Vol] 2.77 10*6/uL 3.60-5.00 [facility] Serum or plasma anion gap de terminationOrdered By: Yani Cyr on 10-03-2022 Anion gap [Moles/Vol] 8.2 mmol/L 6.0-15.0 [facility] Sodium [Moles/volume] in Ser um or PlasmaOrdered By: Yani Cyr on 10-03-2022 Sodium [Moles/Vol] 137 mmol/L 136-145 [facility] Urea nitrogen [Mass/volume] in Serum or PlasmaOrdered By: Yani Cyr on 10-03-2022 Urea nitrogen [Mass/Vol] 10 mg/dL 02-14 [facility] WBC Auto (Bld) [#/Vol]Ordere d By: Yani Cyr on 10-03-2022 WBC (Bld) [#/Vol] 7.6 10*3/uL 3.8-11.6 [facility] XR hip LT min 2V(w/wo pelvis )*on 10-03-2022 XR hip LT min 2V(w/wo pelvis)* [facility] Main [address] [address] XRay Report Signed Patient: Annamaria Garcia MR#: [id number] : 1935 Acct:[id number] Age/Sex: 87 / F ADM Date: 09/28/22 Loc: Room: [address] [place] [address] Type: ADM IN Attending Dr: Yani Cyr [...] Forrester Jr., D.O.10/03/2022 10:04 AM Dictation Location: [place] [address] Transcribed By: [facility] 10/03/22 1004 Dictated By: Josse Forrester Jr, DO 10/03/22 1003 Signed By: 10/03/22 1004 Normal [facility] Hemoglobin and Hematocriton 10-02-2022 Hematocrit (Bld) [Volume fraction] 21.3 % Low 34.0-46.4 [facility] Comment on above: Result Comment: PERF ORMED BY: [address] [address] PATHOLOGIST WINDOW DRAPER CLARICE OSWALD M.D. Performed By: #### F ER, FE and TIBC #### [facility] [address] Hemoglobin (Bld) [Mass/Vol] 7.3 g/dL Low 11.8-15.4 [facility] Comment on above: Performed By: #### F ER, FE and TIBC #### [address] Complete Blood Count Auto Di ffon 10-01-2022 Basophils (Bld) [#/Vol] 0.0 10*3/uL Normal 0.0-0.2 [facility] Comment on above: Result Comment: PERF ORMED BY: [place] [address] PATHOLOGIST WINDOW DRAPER CLARICE OSWALD M.D. Performed By: #### C BC #### [address] Basophils/100 WBC (Bld) 0.3 % Normal . [facility] Comment on above: Performed By: #### C BC #### [address] Eosinophils (Bld) [#/Vol] 0.1 10*3/uL Normal 0.0-0.45 [facility] Comment on above: Performed By: #### C BC #### [address] Eosinophils/100 WBC (Bld) 1.0 % Normal . [facility] Comment on above: Performed By: #### C BC #### [address] Erythrocyte distribution width (RBC) [Ratio] 13.8 % Normal 11.9-15.3 [facility] Comment on above: Performed By: #### C BC #### [address] Hematocrit (Bld) [Volume fraction] 21.8 % Low 34.0-46.4 [facility] Comment on above: Performed By: #### C BC #### [address] Hemoglobin (Bld) [Mass/Vol] 7.4 g/dL Low 11.8-15.4 [facility] Comment on above: Performed By: #### C BC #### [address] Lymphocytes (Bld) [#/Vol] 0.9 10*3/uL Low 1.00-4.8 [facility] Comment on above: Performed By: #### C BC #### [address] Lymphocytes/100 WBC (Bld) 12.7 % Normal . [facility] Comment on above: Performed By: #### C BC #### [address] MCH (RBC) [Entitic mass] 31.0 pg Normal 24.7-34.3 [facility] Comment on above: Performed By: #### C BC #### [address] MCV (RBC) [Entitic vol] 91.8 fL Normal 80-100 [facility] Comment on above: Performed By: #### C BC #### [address] Mean Corpuscular HGB Conc 33.8 g/dL Normal 32.0-35.0 [facility] Comment on above: Performed By: #### C BC #### [address] Monocytes (Bld) [#/Vol] 1.0 10*3/uL High 0.0-0.8 [facility] Comment on above: Performed By: #### C BC #### [address] Monocytes/100 WBC (Bld) 13.6 % Normal . [facility] Comment on above: Performed By: #### C BC #### [address] Neutrophils (Bld) [#/Vol] 5.3 10*3/uL Normal 1.8-7.7 [facility] Comment on above: Performed By: #### C BC #### [address] Neutrophils/100 WBC (Bld) 72.4 % Normal . [facility] Comment on above: Performed By: #### C BC #### [address] NRBC% 0.0 /100{WBC} Normal 0-0.5 [facility] Comment on above: Performed By: #### C BC #### [address] Platelet mean volume (Bld) [Entitic vol] 8.0 fL Normal 6.3-10.7 [facility] Comment on above: Performed By: #### C BC #### [address] Platelets (Bld) [#/Vol] 208 10*3/uL Normal 150-450 [facility] Comment on above: Performed By: #### C BC #### [address] RBC (Bld) [#/Vol] 2.37 10*6/uL Low 3.60-5.00 [facility] Comment on above: Performed By: #### C BC #### [address] WBC (Bld) [#/Vol] 7.3 10*3/uL Normal 3.8-11.6 [facility] Comment on above: Performed By: #### C BC #### [address] Basic Metabolic Panelon 09-21 Anion gap [Moles/Vol] 8.7 mmol/L Normal 6.0-15.0 [facility] Comment on above: Performed By: #### B MP, CBC #### [address] [address] [place] Calcium [Mass/Vol] 8.3 mg/dL Low 8.6-10.3 [facility] Comment on above: Performed By: #### B MP, CBC #### [facility] [address] Chloride [Moles/Vol] 111 mmol/L High 98-107 [facility] Comment on above: Performed By: #### B MP, CBC #### [facility] [address] CO2 [Moles/Vol] 26.5 mmol/L Normal 21.0-31.0 [facility] Comment on above: Performed By: #### B MP, CBC #### [facility] [address] Creatinine [Mass/Vol] 0.37 mg/dL Low 0.60-1.20 [facility] Comment on above: Performed By: #### B MP, CBC #### [facility] [address] [place] [address] Creatinine Clr Calc Pharmacy 35.59 [facility] Comment on above: Result Comment: PERF ORMED BY: [place] [address] PATHOLOGIST WINDOW DRAPER CLARICE OSWALD M.D. Performed By: #### B MP, CBC #### [address] GFR/1.73 sq M.predicted MDRD (S/P/Bld) [Vol rate/Area] mL/min/{1.73_m2} [facility] Comment on above: Performed By: #### B MP, CBC #### [facility] [address] [place] [address] Glucose [Mass/Vol] 102 mg/dL Normal 74-109 [facility] Comment on above: Result Comment: [place] Glucose Reference Range is dependent on time and content of last meal. Glucose of more than 200 mg/dL in a nonstressed, ambulatory subject supports the diagnosis of Diabetes Mellitus. ADA recommended reference range Performed By: #### B MP, CBC #### [address] Potassium [Moles/Vol] 4.2 mmol/L Normal 3.5-5.1 [facility] Comment on above: Performed By: #### B MP, CBC #### [address] Sodium [Moles/Vol] 142 mmol/L Normal 136-145 [facility] Comment on above: Performed By: #### B MP, CBC #### [address] Urea nitrogen [Mass/Vol] 16 mg/dL Normal 7-25 [facility] Comment on above: Performed By: #### B MP, CBC #### [address] Complete Blood Count Auto Di ffon 09-30-2022 Basophils (Bld) [#/Vol] 0.0 10*3/uL Normal 0.0-0.2 [facility] Comment on above: Result Comment: PERF ORMED BY: [place] [address] PATHOLOGIST WINDOW DRAPER CLARICE OSWALD M.D. Performed By: #### B MP, CBC #### [address] Basophils/100 WBC (Bld) 0.3 % Normal . [facility] Comment on above: Performed By: #### B MP, CBC #### [address] Eosinophils (Bld) [#/Vol] 0.0 10*3/uL Normal 0.0-0.45 [facility] Comment on above: Performed By: #### B MP, CBC #### [address] Eosinophils/100 WBC (Bld) 0.3 % Normal . [facility] Comment on above: Performed By: #### B MP, CBC #### [address] Erythrocyte distribution width (RBC) [Ratio] 14.1 % Normal 11.9-15.3 [facility] Comment on above: Performed By: #### B MP, CBC #### [address] Hematocrit (Bld) [Volume fraction] 22.3 % Low 34.0-46.4 [facility] Comment on above: Performed By: #### B MP, CBC #### [address] Hemoglobin (Bld) [Mass/Vol] 7.8 g/dL Low 11.8-15.4 [facility] Comment on above: Performed By: #### B MP, CBC #### [address] Lymphocytes (Bld) [#/Vol] 1.0 10*3/uL Normal 1.00-4.8 [facility] Comment on above: Performed By: #### B MP, CBC #### [address] Lymphocytes/100 WBC (Bld) 12.9 % Normal . [facility] Comment on above: Performed By: #### B MP, CBC #### [address] MCH (RBC) [Entitic mass] 31.9 pg Normal 24.7-34.3 [facility] Comment on above: Performed By: #### B MP, CBC #### [address] MCV (RBC) [Entitic vol] 91.3 fL Normal 80-100 [facility] Comment on above: Performed By: #### B MP, CBC #### [address] Mean Corpuscular HGB Conc 34.9 g/dL Normal 32.0-35.0 [facility] Comment on above: Performed By: #### B MP, CBC #### [address] Monocytes (Bld) [#/Vol] 1.1 10*3/uL High 0.0-0.8 [facility] Comment on above: Performed By: #### B MP, CBC #### [address] Monocytes/100 WBC (Bld) 13.3 % Normal . [facility] Comment on above: Performed By: #### B MP, CBC #### [address] Neutrophils (Bld) [#/Vol] 5.9 10*3/uL Normal 1.8-7.7 [facility] Comment on above: Performed By: #### B MP, CBC #### [address] Neutrophils/100 WBC (Bld) 73.2 % Normal . [facility] Comment on above: Performed By: #### B MP, CBC #### [address] NRBC% 0.0 /100{WBC} Normal 0-0.5 [facility] Comment on above: Performed By: #### B MP, CBC #### [address] Platelet mean volume (Bld) [Entitic vol] 8.2 fL Normal 6.3-10.7 [facility] Comment on above: Performed By: #### B MP, CBC #### [place] [address] [place] Platelets (Bld) [#/Vol] 182 10*3/uL Normal 150-450 [facility] Comment on above: Performed By: #### B MP, CBC #### [address] RBC (Bld) [#/Vol] 2.44 10*6/uL Low 3.60-5.00 [facility] Comment on above: Performed By: #### B MP, CBC #### [place] [address] [place] WBC (Bld) [#/Vol] 8.0 10*3/uL Normal 3.8-11.6 [facility] Comment on above: Performed By: #### B MP, CBC #### [facility] [address] [place] [address] Ferritinon 09-30-2022 Ferritin [Mass/Vol] 53.4 ng/mL Normal 11.0-306.8 [facility] Comment on above: Order Comment: Comme nt add on Result Comment: PERF ORMED BY: [place] [address] PATHOLOGIST WINDOW DRAPER CLARICE OSWALD M.D. Performed By: #### F ER, FE and TIBC #### [address] Ferritin [Mass/volume] in Se rum or PlasmaOrdered By: Mimi Artis on 09-30-2022 Ferritin [Mass/Vol] 53.4 ng/mL 11.0-306.8 [facility] Hemoglobin and Hematocriton 09-30-2022 Hematocrit (Bld) [Volume fraction] 25.5 % Low 34.0-46.4 [facility] Comment on above: Result Comment: PERF ORMED BY: [place] [address] PATHOLOGIST WINDOW DRAPER CLARICE OSWALD M.D. Performed By: #### F ER, FE and TIBC #### [facility] [address] [place] [address] Hemoglobin (Bld) [Mass/Vol] 8.6 g/dL Low 11.8-15.4 [facility] Comment on above: Performed By: #### F ER, FE and TIBC #### [facility] [address] [place] [address] Iron [Mass/volume] in Serum or PlasmaOrdered By: Mimi Artis on 09-30-2022 Iron [Mass/Vol] 20 ug/dL 50-212 [facility] Iron and TIBC Profileon 09-21 0 % Iron Saturation 7.0 % Low 20-50 [facility] Comment on above: Order Comment: Comme nt add on Performed By: #### F ER, FE and TIBC #### [facility] [address] Iron [Mass/Vol] 20 ug/dL Low 50-212 [facility] Comment on above: Order Comment: Comme nt add on Performed By: #### F ER, FE and TIBC #### [facility] [address] Total Iron Binding Capacity 286 ug/dL Normal 255-450 [facility] Comment on above: Order Comment: Comme nt add on Performed By: #### F ER, FE and TIBC #### [address] Transferrin [Mass/Vol] 204 mg/dL Normal 203-362 [facility] Comment on above: Order Comment: Comme nt add on Performed By: #### F ER, FE and TIBC #### [address] Iron binding capacity [Mass/ volume] in Serum or PlasmaOrdered By: Mimi Obika on 09-30-2022 Iron binding capacity [Mass/Vol] 286 ug/dL 255-450 [facility] Iron saturation [Mass Fracti on] in Serum or PlasmaOrdered By: Mimi Obika on 09-30-2022 Iron saturation [Mass fraction] 7.0 % 20-50 [facility] Transferrin [Mass/volume] in Serum or PlasmaOrdered By: Mimi Obika on 09-30-2022 Transferrin [Mass/Vol] 204 mg/dL 203-362 [facility] Basic Metabolic Panelon 030 Anion gap [Moles/Vol] 12.9 mmol/L Normal 6.0-15.0 [facility] Comment on above: Performed By: #### B MP, SCAN CBC #### [facility] [address] Calcium [Mass/Vol] 8.9 mg/dL Normal 8.6-10.3 [facility] Comment on above: Performed By: #### B MP, SCAN CBC #### [facility] [address] [place] [address] [place] Chloride [Moles/Vol] 108 mmol/L High 98-107 [facility] Comment on above: Performed By: #### B MP, SCAN CBC #### [facility] [address] CO2 [Moles/Vol] 21.4 mmol/L Normal 21.0-31.0 [facility] Comment on above: Performed By: #### B MP, SCAN CBC #### [facility] [address] Creatinine [Mass/Vol] 0.56 mg/dL Low 0.60-1.20 [facility] Comment on above: Performed By: #### B MP, SCAN CBC #### [facility] [address] [place] [address] [place] Creatinine Clr Calc Pharmacy 35.59 [facility] Comment on above: Result Comment: PERF ORMED BY: [place] [address] PATHOLOGIST WINDOW DRAPER CLARICE OSWALD M.D. Performed By: #### B MP, SCAN CBC #### [facility] [address] [place] [address] [place] GFR/1.73 sq M.predicted MDRD (S/P/Bld) [Vol rate/Area] mL/min/{1.73_m2} [facility] Comment on above: Performed By: #### B MP, SCAN CBC #### [facility] [address] [place] [address] [place] Glucose [Mass/Vol] 118 mg/dL High 74-109 [facility] Comment on above: Result Comment: [place] Glucose Reference Range is dependent on time and content of last meal. Glucose of more than 200 mg/dL in a nonstressed, ambulatory subject supports the diagnosis of Diabetes Mellitus. ADA recommended reference range Performed By: #### B MP, SCAN CBC #### [facility] [address] [place] [address] [place] Potassium [Moles/Vol] 4.3 mmol/L Normal 3.5-5.1 [facility] Comment on above: Performed By: #### B MP, SCAN CBC #### [facility] [address] Sodium [Moles/Vol] 138 mmol/L Normal 136-145 [facility] Comment on above: Performed By: #### B MP, SCAN CBC #### [facility] [address] [place] [address] [place] Urea nitrogen [Mass/Vol] 16 mg/dL Normal 7-25 [facility] Comment on above: Performed By: #### B MP, SCAN CBC #### [facility] [address] Platelet adequacy [Presence] in Blood by Light microscopyOrdered By: Mimi Artis on 09-29-2022 Platelets LM Ql (Bld) Normal Normal [facility] Platelet morphology finding [Identifier] in BloodOrdered By: Mimi Artis on 09-29-2022 Platelet morphology finding Nom (Bld) Normal Normal [facility] RBC morphologyOrdered By: Rosalba Artis on 09-29-2022 RBC morphology finding Nom (Bld) Normal Normal [facility] Scan and CBCon 09-29-2022 Basophils (Bld) [#/Vol] 0.0 10*3/uL Normal 0.0-0.2 [facility] Comment on above: Performed By: #### B MP, SCAN CBC #### [facility] [address] [place] [address] [place] Basophils/100 WBC (Bld) 0.1 % Normal . [facility] Comment on above: Performed By: #### B MP, SCAN CBC #### [facility] [address] [place] [address] [place] Eosinophils (Bld) [#/Vol] 0.0 10*3/uL Normal 0.0-0.45 [facility] Comment on above: Performed By: #### B MP, SCAN CBC #### [facility] [address] [place] [address] [place] Eosinophils/100 WBC (Bld) 0.0 % Normal . [facility] Comment on above: Performed By: #### B MP, SCAN CBC #### [facility] [address] Erythrocyte distribution width (RBC) [Ratio] 14.2 % Normal 11.9-15.3 [facility] Comment on above: Performed By: #### B MP, SCAN CBC #### [facility] [address] Hematocrit (Bld) [Volume fraction] 27.0 % Low 34.0-46.4 [facility] Comment on above: Performed By: #### B MP, SCAN CBC #### [facility] [address] Hemoglobin (Bld) [Mass/Vol] 9.1 g/dL Low 11.8-15.4 [facility] Comment on above: Performed By: #### B MP, SCAN CBC #### [facility] [address] [place] [address] Lymphocytes (Bld) [#/Vol] 0.9 10*3/uL Low 1.00-4.8 [facility] Comment on above: Performed By: #### B MP, SCAN CBC #### [facility] [address] [place] [address] [place] Lymphocytes/100 WBC (Bld) 7.1 % Normal . [facility] Comment on above: Performed By: #### B MP, SCAN CBC #### [facility] [address] [place] [address] [place] MCH (RBC) [Entitic mass] 30.9 pg Normal 24.7-34.3 [facility] Comment on above: Performed By: #### B MP, SCAN CBC #### [facility] [address] [place] [address] [place] MCV (RBC) [Entitic vol] 91.6 fL Normal 80-100 [facility] Comment on above: Performed By: #### B MP, SCAN CBC #### [facility] [address] [place] [address] Mean Corpuscular HGB Conc 33.7 g/dL Normal 32.0-35.0 [facility] Comment on above: Performed By: #### B MP, SCAN CBC #### [facility] [address] [place] [address] [place] Monocytes (Bld) [#/Vol] 1.7 10*3/uL High 0.0-0.8 [facility] Comment on above: Performed By: #### B MP, SCAN CBC #### [facility] [address] [place] [address] [place] Monocytes/100 WBC (Bld) 13.5 % Normal . [facility] Comment on above: Performed By: #### B MP, SCAN CBC #### [facility] [address] [place] [address] [place] Neutrophils (Bld) [#/Vol] 10.2 10*3/uL High 1.8-7.7 [facility] Comment on above: Performed By: #### B MP, SCAN CBC #### [facility] [address] Neutrophils/100 WBC (Bld) 79.3 % Normal . [facility] Comment on above: Performed By: #### B MP, SCAN CBC #### [facility] [address] [place] [address] [place] NRBC% 0.0 /100{WBC} Normal 0-0.5 [facility] Comment on above: Performed By: #### B MP, SCAN CBC #### [facility] [address] Platelet Estimate Normal Normal Normal [facility] Comment on above: Performed By: #### B MP, SCAN CBC #### [facility] [address] Platelet mean volume (Bld) [Entitic vol] 8.0 fL Normal 6.3-10.7 [facility] Comment on above: Performed By: #### B MP, SCAN CBC #### [facility] [address] Platelet Morphology Normal Normal Normal [facility] Comment on above: Result Comment: PERF ORMED BY: [facility] [address] [place] [address] PATHOLOGIST WINDOW DRAPER CLARICE OSWALD M.D. Performed By: #### B MP, SCAN CBC #### [facility] [address] Platelets (Bld) [#/Vol] 220 10*3/uL Normal 150-450 [facility] Comment on above: Performed By: #### B MP, SCAN CBC #### [facility] [address] RBC (Bld) [#/Vol] 2.95 10*6/uL Low 3.60-5.00 [facility] Comment on above: Performed By: #### B MP, SCAN CBC #### [facility] [address] RBC morphology finding Nom (Bld) Normal Normal Normal [facility] Comment on above: Performed By: #### B MP, SCAN CBC #### [facility] [address] WBC (Bld) [#/Vol] 12.9 10*3/uL High 3.8-11.6 [facility] Comment on above: Performed By: #### B MP, SCAN CBC #### [place] [address] [place] XR hip LT min 2V(w/wo pelvis )*on 09-29-2022 XR hip LT min 2V(w/wo pelvis)* [facility] [place] [address] [place] [address] XRay Report Signed Patient: Annamaria Garcia MR#: [id number] : 1935 Acct:[id number] Age/Sex: 87 / F ADM Date: 09/28/22 Loc: Room: [address] [place] [address] Type: ADM IN Attending Dr: Adama Kothari [...] Angie Francisco M.D.09/29/2022 11:29 AM Dictation Location: [facility]12 Transcribed By: [facility] 09/29/22 112 Dictated By: Angie Francisco MD 09/29/22 112 Signed By: 09/29/22 1129 Normal [facility] ABO AND RH TYPEon 09-28-2022 ABO and Rh group Nom (Bld) ABO Rh Typing A Rh Positive Normal [facility] Comment on above: Performed By: #### C MP, CMADM #### [facility] [address] [address] [address] Nidhi Dawn Albumin Levelon 09-28-2022 Albumin [Mass/Vol] 4.0 g/dL Normal 3.5-5.7 [facility] Comment on above: Result Comment: PERF ORMED BY: [place] [address] PATHOLOGIST WINDOW DRAPER CLARICE OSWALD M.D. Performed By: #### F ER, FE and TIBC #### [facility] [address] [place] [address] [place] Albumin [Mass/volume] in Ser um or Plasma by Bromocresol green (BCG) dye binding methoOrdered By: Blumaro Moses on 09-28-2022 Albumin BCG dye [Mass/Vol] 4.0 g/dL 3.5-5.7 [facility] Basic Metabolic Panelon Anion gap [Moles/Vol] 10.8 mmol/L Normal 6.0-15.0 [facility] Comment on above: Performed By: #### F ER, FE and TIBC #### [facility] [address] [place] [address] [place] Calcium [Mass/Vol] 9.0 mg/dL Normal 8.6-10.3 [facility] Comment on above: Performed By: #### F ER, FE and TIBC #### [facility] [address] Chloride [Moles/Vol] 103 mmol/L Normal 98-107 [facility] Comment on above: Performed By: #### F ER, FE and TIBC #### [facility] [address] CO2 [Moles/Vol] 28.5 mmol/L Normal 21.0-31.0 [facility] Comment on above: Performed By: #### F ER, FE and TIBC #### [facility] [address] Creatinine [Mass/Vol] 0.40 mg/dL Low 0.60-1.20 [facility] Comment on above: Performed By: #### F ER, FE and TIBC #### [facility] [address] [place] [address] [place] Creatinine Clr Calc Pharmacy 31.68 [facility] Comment on above: Result Comment: PERF ORMED BY: [place] [address] PATHOLOGIST WINDOW DRAPER CLARICE OSWALD M.D. Performed By: #### F ER, FE and TIBC #### [facility] [address] GFR/1.73 sq M.predicted MDRD (S/P/Bld) [Vol rate/Area] mL/min/{1.73_m2} [facility] Comment on above: Performed By: #### F ER, FE and TIBC #### [facility] [address] [place] [address] [place] Glucose [Mass/Vol] 143 mg/dL High 74-109 [facility] Comment on above: Result Comment: [place] Glucose Reference Range is dependent on time and content of last meal. Glucose of more than 200 mg/dL in a nonstressed, ambulatory subject supports the diagnosis of Diabetes Mellitus. ADA recommended reference range Performed By: #### F ER, FE and TIBC #### [facility] [address] Potassium [Moles/Vol] 3.3 mmol/L Low 3.5-5.1 [facility] Comment on above: Performed By: #### F ER, FE and TIBC #### [facility] [address] Sodium [Moles/Vol] 139 mmol/L Normal 136-145 [facility] Comment on above: Performed By: #### F ER, FE and TIBC #### [facility] [address] Urea nitrogen [Mass/Vol] 8 mg/dL Normal 7-25 [facility] Comment on above: Performed By: #### F ER, FE and TIBC #### [facility] [address] ABD/PELVIS WO CONon 09-28 CT [...] by: RAVEN RENNER Date: 2022-09-27 22:38 Normal [facility] CT CSPINE WO CONon 3 [...] by: SOPHIE SINGLETON Date: 2022-09-27 22:42 Normal [facility] CT HEAD WO CONon 09-28-2022 [...] RAVEN RENNER Date: 2022-09-27 22:43 Normal [facility] CT LSPINE WO CONon 3 CT [...] KANU BURK Date: 2022-09-27 22:42 Normal [facility] Complete Blood Count Auto Di ffon 09-28-2022 Basophils (Bld) [#/Vol] 0.0 10*3/uL Normal 0.0-0.2 [facility] Comment on above: Result Comment: PERF ORMED BY: [facility] [address] [place] [address] PATHOLOGIST WINDOW DRAPER CLARICE OSWALD M.D. Performed By: #### F ER, FE and TIBC #### [facility] [address] Basophils/100 WBC (Bld) 0.0 % Normal . [facility] Comment on above: Performed By: #### F ER, FE and TIBC #### [facility] [address] Eosinophils (Bld) [#/Vol] 0.0 10*3/uL Normal 0.0-0.45 [facility] Comment on above: Performed By: #### F ER, FE and TIBC #### [address] Eosinophils/100 WBC (Bld) 0.0 % Normal . [facility] Comment on above: Performed By: #### F ER, FE and TIBC #### [address] Erythrocyte distribution width (RBC) [Ratio] 13.9 % Normal 11.9-15.3 [facility] Comment on above: Performed By: #### F ER, FE and TIBC #### [address] Hematocrit (Bld) [Volume fraction] 33.9 % Low 34.0-46.4 [facility] Comment on above: Performed By: #### F ER, FE and TIBC #### [address] Hemoglobin (Bld) [Mass/Vol] 11.5 g/dL Low 11.8-15.4 [facility] Comment on above: Performed By: #### F ER, FE and TIBC #### [place] [address] [place] Lymphocytes (Bld) [#/Vol] 0.6 10*3/uL Low 1.00-4.8 [facility] Comment on above: Performed By: #### F ER, FE and TIBC #### [address] Lymphocytes/100 WBC (Bld) 4.7 % Normal . [facility] Comment on above: Performed By: #### F ER, FE and TIBC #### [facility] [address] MCH (RBC) [Entitic mass] 30.8 pg Normal 24.7-34.3 [facility] Comment on above: Performed By: #### F ER, FE and TIBC #### [address] MCV (RBC) [Entitic vol] 90.8 fL Normal 80-100 [facility] Comment on above: Performed By: #### F ER, FE and TIBC #### [address] Mean Corpuscular HGB Conc 34.0 g/dL Normal 32.0-35.0 [facility] Comment on above: Performed By: #### F ER, FE and TIBC #### [address] Monocytes (Bld) [#/Vol] 0.9 10*3/uL High 0.0-0.8 [facility] Comment on above: Performed By: #### F ER, FE and TIBC #### [address] Monocytes/100 WBC (Bld) 7.4 % Normal . [facility] Comment on above: Performed By: #### F ER, FE and TIBC #### [address] Neutrophils (Bld) [#/Vol] 10.7 10*3/uL High 1.8-7.7 [facility] Comment on above: Performed By: #### F ER, FE and TIBC #### [address] Neutrophils/100 WBC (Bld) 87.9 % Normal . [facility] Comment on above: Performed By: #### F ER, FE and TIBC #### [address] NRBC% 0.1 /100{WBC} Normal 0-0.5 [facility] Comment on above: Performed By: #### F ER, FE and TIBC #### [facility] [address] Platelet mean volume (Bld) [Entitic vol] 8.0 fL Normal 6.3-10.7 [facility] Comment on above: Performed By: #### F ER, FE and TIBC #### [facility] [address] Platelets (Bld) [#/Vol] 253 10*3/uL Normal 150-450 [facility] Comment on above: Performed By: #### F ER, FE and TIBC #### [facility] [address] RBC (Bld) [#/Vol] 3.73 10*6/uL Normal 3.60-5.00 [facility] Comment on above: Performed By: #### F ER, FE and TIBC #### [facility] [address] WBC (Bld) [#/Vol] 12.2 10*3/uL High 3.8-11.6 [facility] Comment on above: Performed By: #### F ER, FE and TIBC #### [address] ECG 12 lead ECGon 09-28-2022 ECG 12 lead ECG [facility] [place] [address] [place] [address] Electrocardiograph Report Signed Patient: Annamaria Garcia MR#: [id number] : 1935 Acct:[id number] Age/Sex: 87 / F ADM Date: 09/28/22 Loc: Room: [address] [place] [address] Type: ADM IN Attending Dr: Adama Kothari [...] Knight MD 0 09/28/22 1508 Normal [facility] ER URINE PROFILEon 3 Bilirubin Ql (U) Negative Normal NEGATIVE [facility] Comment on above: Performed By: #### C MP, CMADM #### [facility] [address] [place] [address] Dr. Nidhi Dawn Clarity (U) CLEAR Normal CLEAR [facility] Comment on above: Performed By: #### C MP, CMADM #### [facility] [address] [place] [address] Dr. Nidhi Dawn Color (U) LT. YELLOW Normal YELLOW [facility] Comment on above: Performed By: #### C DONA, CMADM #### [facility] [address] [place] [address] Dr. Nidhi TERRAZAS A micrscopic examina tion will be performed if indicated. Normal [facility] Comment on above: Performed By: #### C MP, CMADM #### [facility] [address] [place] [address] Dr. Nidhi Dawn Glucose Ql (U) Negative Normal NEGATIVE [facility] Comment on above: Performed By: #### C MP, CMADM #### [facility] [address] [place] [address] Dr. Nidhi Dawn Hemoglobin Ql (U) Negative Normal NEGATIVE [facility] Comment on above: Performed By: #### C MP, CMADM #### [facility] [address] [place] [address] Dr. Nidhi Dawn Ketones Ql (U) 40 mg/dl Abnormal NEGATIVE [facility] Comment on above: Performed By: #### C MP, CMADM #### [facility] [address] [place] [address] Dr. Nidhi Dawn LEUKOCYTES Negative Normal NEGATIVE [facility] Comment on above: Performed By: #### C MP, CMADM #### [facility] [address] [place] [address] Dr. Nidhi Dawn Nitrite Ql (U) Negative Normal NEGATIVE [facility] Comment on above: Performed By: #### C DONA, CMADM #### [facility] [address] [place] [address] Dr. Nidhi Dawn pH (U) 7.0 [pH] Normal 5-9 [facility] Comment on above: Performed By: #### C DONA, CMADM #### [facility] [address] [place] [address] Dr. Nidhi Dawn SPEC GRAVITY 1.010 Normal 1.005-<=1.0 25 [facility] Comment on above: Performed By: #### C DONA, LEONCIODM #### [facility] [address] [place] [address] Dr. Nidhi Dawn UA PROTEIN TRACE Normal NEGATIVE/ TRACE [facility] Comment on above: Performed By: #### C DONA, LEONCIODM #### [facility] [address] [place] [address] Dr. Nidhi Dawn UR MICRO IND NOT INDICATED Normal [facility] Comment on above: Performed By: #### C DONA, LEONCIODM #### [facility] [address] [place] [address] Dr. Nidhi Dawn Urobilinogen Qn (U) 0.2 {Lawrence'U}/dL Normal 0.2 - 1. 0 [facility] Comment on above: Performed By: #### C DONA, CMADM #### [facility] [address] [place] [address] Dr. Nidhi Dawn Glucose Glucometer (dC) [M ass/Vol]Ordered By: Juliet Green on 09-28-2022 Glucose [Mass/Vol] 107 mg/dL [facility] Comment on above: Random Glucose Refer ence Range is dependent on time and content of last meal. Glucose of more than 200 mg/dL in a nonstressed, ambulatory subject supports the diagnosis of Diabetes Mellitus. Glucose Poct Glucometerson 0 09-28-2022 Glucose [Mass/Vol] 107 mg/dL Normal [facility] Comment on above: Result Comment: [place] Glucose Reference Range is dependent on time and content of last meal. Glucose of more than 200 mg/dL in a nonstressed, ambulatory subject supports the diagnosis of Diabetes Mellitus. PERFORMED BY: [place] [address] PATHOLOGIST WINDOW DRAPER CLARICE OSWALD M.D. Performed By: #### G LULS #### Point of Care testing , Laboratory - CoagulationOrde red By: Juliet Green on 09-28-2022 PT Coag (PPP) [Time] 13.1 s 9.0-12.9 [facility] Magnesiumon 09-28-2022 Magnesium [Mass/Vol] 1.9 mg/dL Normal 1.9-2.7 [facility] Comment on above: Order Comment: Comme nt add Result Comment: PERF ORMED BY: [place] [address] PATHOLOGIST WINDOW DRAPER CLARICE OSWALD M.D. Performed By: #### M G #### [address] Magnesium [Mass/volume] in S enma or PlasmaOrdered By: Juliet Green on 09-28-2022 Magnesium [Mass/Vol] 1.9 mg/dL 1.9-2.7 [facility] Platelet poor plasma interna tional normalized ratio (INR) by coagulation assay (relatOrdered By: Juliet Green on 09-28-2022 INR Coag (PPP) [Relative time] 1.1 {INR} [facility] Comment on above: INR Therapeutic Rang [...] (PPP) [Relative time] 1.1 {INR} Normal [facility] Comment on above: Result Comment: INR [...] heart valves: 3 - 4.5 PERFORMED BY: [place] [address] PATHOLOGIST WINDOW DRAPER CLARICE OSWALD M.D. Performed By: #### F ER, FE and TIBC #### [facility] [address] [place] [address] PT Coag (PPP) [Time] 13.1 s High 9.0-12.9 [facility] Comment on above: Performed By: #### F ER, FE and TIBC #### [facility] [address] [place] [address] Vitamin B12on 09-28-2022 Cobalamin (Vitamin B12) [Mass/Vol] 202 pg/mL Normal 180-914 [facility] Comment on above: Result Comment: PERF ORMED BY: [place] [address] PATHOLOGIST WINDOW DRAPER CLARICE OSWALD M.D. Performed By: #### B 12 #### [facility] [address] [place] [address] Vitamin B12 ser/plasOrdered By: Mimi Artis on 09-28-2022 Cobalamin (Vitamin B12) [Mass/Vol] 202 pg/mL 180-914 [facility] Vitamin D 25 Hydroxy,Tot+D2+ D3on 09-28-2022 Vitamin D 25 OH (LC) 33 ng/mL Normal . [facility] Comment on above: Result Comment: Refe rence Range: All Ages: Target levels 30 - 100 Performed By: #### F ER, FE and TIBC #### [facility] [address] [place] [address] Vitamin D-2 <1.0 Normal . [facility] Comment on above: Result Comment: This test was developed and its performance characteristics determined by [facility]. It has not been cleared or approved by the Food and Drug Administration. Performed By: #### F ER, FE and TIBC #### [facility] [address] [place] [address] Vitamin D-3 33 ng/mL Normal . [facility] Comment on above: Result Comment: This test was developed and its performance characteristics determined by [facility]. It has not been cleared or approved by the Food and Drug Administration. Performed at: [email or web address] [address] [place] [id number] [employer] Professor: Avel Dempsey MD, Phone: [phone] PERFORMED BY: [place] [address] PATHOLOGIST WINDOW DRAPER CLARICE OSWALD M.D. Performed By: #### F ER, FE and TIBC #### [address] XR femur LT 2V*on 09-28-2022 XR femur LT 2V* [facility] [place] [address] [place] [address] XRay Report Signed Patient: Annamaria Garcia MR#: [id number] : 1935 Acct:[id number] Age/Sex: 87 / F ADM Date: 09/28/22 Loc: Room: 1C8081-2 Type: ADM IN Attending Dr: Juliet Green MD Copies to: MD Juliet Lennon MD Ordering Provider: Bulmaro Moses MD Date of Service: 09/28/22 XR/XR femur LT 2V*: left fem head fx ([id number]) XR/XR low pelvis w/LT x-table hip: left [...] fractures or dislocation are seen within the [id number]-spmo. There is mild degenerative change at the knee with medial tibiofemoral joint compartment narrowing and minor tricompartment marginal spurring. There are no focal soft tissue findings. IMPRESSION: NO ACUTE BONY INJURY WITHIN THE [id number]. Impression dictated by: Angie Francisco M.D.09/28/2022 7:21 AM Dictation Location: [place] [address] Transcribed By: [facility] 09/28/22720 Dictated By: Angie Francisco MD 09/28/22 0716 Signed By: 09/28/22 0721 [facility] CARDIAC CELESTINO ADMITon 023 CK [Catalytic activity/Vol] 96 U/L Normal 26-192 [facility] Comment on above: Performed By: #### C HELENA CARCAMO #### [facility] [address] [place] [address] [address] Nidhi Dawn CK.MB [Mass/Vol] 2.59 ng/mL Normal <=3.[address] [facility] Comment on above: Performed By: #### C HELENA CARCAMO #### [facility] [address] [place] [address] Dr. Nidhi Dawn HSTROP 8.6 pg/mL Normal 4.0-51.[address] [facility] Comment on above: Result Comment: CUT- OFF POINTS HAVE BEEN ESTABLISHED BASED ON THE FOURTH UNIVERSAL DEFINITIONS OF MYOCARDIAL INFARCTION. THE UPPER REFERENCE LIMIT (URL) OF TROPONIN, DEFINED THE 99TH PERCENTILE OF cTnI DISTRIBUTION IN A REFERENCE POPULATION, HAS BEEN CONFIRMED THE DECISION THRESHOLD FOR IA DIAGNOSIS. Performed By: #### C DONA, LEONCIODM #### [facility] [address] [place] [address] Dr. Nidhi Dawn BOBBY 75 ng/mL Normal 9-[address] [facility] Comment on above: Performed By: #### C MP, LEONCIODM #### [facility] [address] [place] [address] Dr. Nidhi Dawn CBC AUTO DIFFon 09-27-2022 BASO # 0.0 103/ul Normal 0.0-0.1 [facility] Comment on above: Performed By: #### C BC #### [facility] [address] [place] [address] Dr. Nidhi Dawn Basophils/100 WBC (Bld) 0.2 % Normal 0.2-2.0 [facility] Comment on above: Performed By: #### C BC #### [facility] [address] [place] [address] Dr. Nidhi Dawn EO # 0.0 103/ul Normal 0.0-0.7 [facility] Comment on above: Performed By: #### C BC #### [facility] [address] [place] [address] Dr. Nidhi Dawn Eosinophils/100 WBC (Bld) 0.1 % Critically low 0.9-7.0 [facility] Comment on above: Performed By: #### C BC #### [facility] [address] [place] [address] Dr. Nidhi Dawn Erythrocyte distribution width (RBC) [Ratio] 13.2 % Normal 11.0-15.[address] [facility] Comment on above: Performed By: #### C BC #### [facility] [address] [place] [address] Dr. Nidhi Dawn Hematocrit (Bld) [Volume fraction] 34.6 % Critically low 36.0-48.[address] [facility] Comment on above: Performed By: #### C BC #### [facility] [address] [place] [address] Dr. Nidhi Dawn Hemoglobin (Bld) [Mass/Vol] 11.7 g/dL Critically low 12.0-16.0 [facility] Comment on above: Performed By: #### C BC #### [facility] [address] [place] [address] Dr. Nidhi Dawn IG # 0.06 10e3/ul Critically high 0.00-0.03 [facility] Comment on above: Performed By: #### C BC #### [facility] [address] [place] [address] Dr. Nidhi Dawn IG % 0.4 % Normal 0.0-0.5 [facility] Comment on above: Performed By: #### C BC #### [facility] [address] [place] [address] Dr. Nidhi Dawn LYMPH # 1.1 103/ul Critically low 1.2-3.8 [facility] Comment on above: Performed By: #### C BC #### [facility] [address] [place] [address] Dr. Nidhi Dawn Lymphocytes/100 WBC (Bld) 7.0 % Critically low 20.5-60.0 [facility] Comment on above: Performed By: #### C BC #### [facility] [address] [place] [address] Dr. Nidhi Dawn MANUAL DIFF REQ NO Normal [facility] Comment on above: Performed By: #### C BC #### [facility] [address] [place] [address] Dr. Nidhi Dawn MCH (RBC) [Entitic mass] 31.0 pg Normal 26.7-34.[address] [facility] Comment on above: Performed By: #### C BC #### [facility] [address] [place] [address] Dr. Nidhi Dawn MCHC (RBC) [Mass/Vol] 33.8 g/dL Normal 29.9-35.[address] [facility] Comment on above: Performed By: #### C BC #### [facility] [address] [place] [id number] Nidhi Dawn MCV (RBC) [Entitic vol] 91.8 fL Normal 81.0-99.0 [facility] Comment on above: Performed By: #### C BC #### [facility] [address] [place] [address] [address] Nidhi Dawn MONO # 1.1 103/ul Critically high 0.3-0.8 [facility] Comment on above: Performed By: #### C BC #### [facility] [address] [place] [address] Dr. Nidhi Dawn Monocytes/100 WBC (Bld) 7.0 % Normal 1.7-12.0 [facility] Comment on above: Performed By: #### C BC #### [facility] [address] [place] [address] Dr. Nidhi Dawn NEUT # 13.1 103/ul Critically high 1.4-6.5 [facility] Comment on above: Performed By: #### C BC #### [facility] [address] [place] [address] Dr. Nidhi Dawn Neutrophils/100 WBC (Bld) 85.3 % Critically high 43.0-75.0 [facility] Comment on above: Performed By: #### C BC #### [facility] [address] [place] [address] Dr. Nidhi Dawn Platelet mean volume (Bld) [Entitic vol] 9.1 fL Critically low 9.5-13.5 [facility] Comment on above: Performed By: #### C BC #### [facility] [address] [place] [address] Dr. Nidhi Dawn PLT 274 103/ul Normal 150-[address] [facility] Comment on above: Performed By: #### C BC #### [facility] [address] [place] [address] Dr. Nidhi Dawn RBC 3.77 106/ul Critically low 4.20-5.[address] [facility] Comment on above: Performed By: #### C BC #### [facility] [address] [place] [address] Dr. Nidhi Dawn WBC 15.4 103/ul Critically high 4.0-11.[address] [facility] Comment on above: Performed By: #### C BC #### [facility] [address] [place] [address] Dr. Nidhi Dawn MAGNESIUMon 09-27-2022 Magnesium [Mass/Vol] 1.6 mg/dL Critically low 1.8-2.[address] [facility] Comment on above: Performed By: #### C BC #### [facility] [address] [place] [address] Dr. Nidhi Dawn PROF 14(COMP METB)on 023 Albumin [Mass/Vol] 3.6 g/dL Normal 3.4-5.0 [facility] Comment on above: Performed By: #### C LEONCIO CARCAMODM #### [facility] [address] [place] [address] Dr. Nidhi Dawn Albumin/Globulin [Mass ratio] 1.2 {ratio} Normal [facility] Comment on above: Performed By: #### C DONA CMADM #### [facility] [address] [place] [address] Dr. Nidhi Dawn ALP [Catalytic activity/Vol] 60 U/L Normal 46-[address] [facility] Comment on above: Performed By: #### C DONA, CMADM #### [facility] [address] [place] [address] Dr. Nidhi Dawn ALT [Catalytic activity/Vol] 18 U/L Normal 14-[address] [facility] Comment on above: Performed By: #### C DONA, CMADM #### [facility] [address] [place] [address] Dr. Nidhi Dawn Anion gap [Moles/Vol] 9.3 mmol/L Normal [facility] Comment on above: Performed By: #### C DONA, CMADM #### [facility] [address] [place] [address] Dr. Nidhi Dawn AST [Catalytic activity/Vol] 19 U/L Normal 15-[address] [facility] Comment on above: Performed By: #### C DONA, CMADM #### [facility] [address] [place] [address] [address] Nidhi Dawn Bilirubin [Mass/Vol] 0.4 mg/dL Normal 0.2-1.[address] [facility] Comment on above: Performed By: #### C MP, CMADM #### [facility] [address] [place] [address] [address] Nidhi Dawn Calcium [Mass/Vol] 8.8 mg/dL Normal 8.5-10.[address] [facility] Comment on above: Performed By: #### C MP, CMADM #### [facility] [address] [place] [address] [address] Nidhi Dawn Chloride [Moles/Vol] 104 mmol/L Normal 98-[address] [facility] Comment on above: Performed By: #### C DONA, CMADM #### [facility] [address] [place] [address] Dr. Nidhi Dawn CO2 [Moles/Vol] 30.6 mmol/L Normal 21.0-32.[address] [facility] Comment on above: Performed By: #### C DONA, CMADM #### [facility] [address] [place] [address] [address] Nidhi Dawn Creatinine [Mass/Vol] 0.43 mg/dL Critically low 0.55-1.02 [facility] Comment on above: Performed By: #### C DONA, CMADM #### [facility] [address] [place] [address] Dr. Nidhi Dawn EGFR-AF NICARAGUAN >60 Normal >=[address] [facility] Comment on above: Performed By: #### C MP, CMADM #### [facility] [address] [place] [address] Dr. Nidhi Dawn EGFR-NON AF NICARAGUAN >60 Normal >=[address] [facility] Comment on above: Performed By: #### C DONA, CMADM #### [facility] [address] [place] [address] [address] Nidhi Dawn Globulin (S) [Mass/Vol] 3.0 g/dL Normal [facility] Comment on above: Performed By: #### C DONA, CMADM #### [facility] [address] [place] [address] [address] Nidhi Dawn Glucose [Mass/Vol] 152 mg/dL Critically high 74-106 [facility] Comment on above: Performed By: #### C MP, CMADM #### [facility] [address] [place] [address] [address] Nidhi Dawn Potassium [Moles/Vol] 2.9 mmol/L Critically low 3.5-5.1 [facility] Comment on above: Performed By: #### C MP, CMADM #### [facility] [address] [place] [address] [address] Nidhi Dawn Protein [Mass/Vol] 6.6 g/dL Normal 6.4-8.2 [facility] Comment on above: Performed By: #### C MP, CMADM #### [facility] [address] [place] [address] [address] Nidhi Dawn Sodium [Moles/Vol] 140 mmol/L Normal 136-145 [facility] Comment on above: Performed By: #### C MP, CMADM #### [facility] [address] [place] [address] [address] Nidhi Dawn Urea nitrogen [Mass/Vol] 5.0 mg/dL Critically low 7.0-18.0 [facility] Comment on above: Performed By: #### C MP, CMADM #### [facility] [address] [place] [address] [address] Nidhi Dawn Urea nitrogen/Creatinine [Mass ratio] 11.6 mg/mg Normal [facility] Comment on above: Performed By: #### C MP, CMADM #### [facility] [address] [place] [address] PELVIS WO CONon [...] TAYLOR PENA Date: 2022-05-02 16:39 Normal [facility] T4 LABCORPon 04-05-2022 T4 [Mass/Vol] 6.9 ug/dL Normal 4.5-12.0 [facility] Comment on above: Performed By: #### C BC #### [facility] [address] [place] [address] [address] Nidhi Dawn CBC AUTO DIFFon 04-04-2022 BASO # 0.0 103/ul Normal 0.0-0.1 [facility] Comment on above: Performed By: #### C BC #### [facility] [address] [place] [address] [address] Nidhi Dawn Basophils/100 WBC (Bld) 0.4 % Normal 0.2-2.0 [facility] Comment on above: Performed By: #### C BC #### [facility] [address] [place] [address] Dr. Nidhi Dawn EO # 0.2 103/ul Normal 0.0-0.[address] [facility] Comment on above: Performed By: #### C BC #### [facility] [address] [place] [address] Dr. Nidhi Dawn Eosinophils/100 WBC (Bld) 3.1 % Normal 0.9-7.0 [facility] Comment on above: Performed By: #### C BC #### [facility] [address] [place] [address] Dr. Nidhi Dawn Erythrocyte distribution width (RBC) [Ratio] 13.6 % Normal 11.0-15.0 [facility] Comment on above: Performed By: #### C BC #### [facility] [address] [place] [address] Dr. Nidhi Dawn Hematocrit (Bld) [Volume fraction] 30.8 % Critically low 36.0-48.0 [facility] Comment on above: Performed By: #### C BC #### [facility] [address] [place] [address] Dr. Ndihi Dawn Hemoglobin (Bld) [Mass/Vol] 10.3 g/dL Critically low 12.0-16.0 [facility] Comment on above: Performed By: #### C BC #### [facility] [address] [place] [address] Dr. Nidhi Dawn IG # 0.04 10e3/ul Critically high 0.00-0.[address] [facility] Comment on above: Performed By: #### C BC #### [facility] [address] [place] [address] Dr. Nidhi Dawn IG % 0.6 % Critically high 0.0-0.[address] [facility] Comment on above: Performed By: #### C BC #### [facility] [address] [place] [address] Dr. Nidhi Dawn LYMPH # 1.3 103/ul Normal 1.2-3.[address] [facility] Comment on above: Performed By: #### C BC #### [facility] [address] [place] [address] Dr. Nidhi Dawn Lymphocytes/100 WBC (Bld) 18.3 % Critically low 20.5-60.0 [facility] Comment on above: Performed By: #### C BC #### [facility] [address] [place] [address] Dr. Nidhi Dawn MANUAL DIFF REQ NO Normal [facility] Comment on above: Performed By: #### C BC #### [facility] [address] [place] [address] Dr. Nidhi Dawn MCH (RBC) [Entitic mass] 31.0 pg Normal 26.7-34.[address] [facility] Comment on above: Performed By: #### C BC #### [facility] [address] [place] [address] Dr. Nidhi Dawn MCHC (RBC) [Mass/Vol] 33.4 g/dL Normal 29.9-35.[address] [facility] Comment on above: Performed By: #### C BC #### [facility] [address] [place] [address] Dr. Nidhi Dawn MCV (RBC) [Entitic vol] 92.8 fL Normal 81.0-99.[address] [facility] Comment on above: Performed By: #### C BC #### [facility] [address] [place] [address] Dr. Nidhi Dawn MONO # 1.0 103/ul Critically high 0.3-0.[address] [facility] Comment on above: Performed By: #### C BC #### [facility] [address] [place] [address] Dr. Nidhi Dawn Monocytes/100 WBC (Bld) 13.7 % Critically high 1.7-12.[address] [facility] Comment on above: Performed By: #### C BC #### [facility] [address] [place] [address] Dr. Nidhi Dawn NEUT # 4.5 103/ul Normal 1.4-6.[address] [facility] Comment on above: Performed By: #### C BC #### [facility] [address] [place] [address] Dr. Nidhi Dawn Neutrophils/100 WBC (Bld) 63.9 % Normal 43.0-75.[address] [facility] Comment on above: Performed By: #### C BC #### [facility] [facility] [address] [place] [address] Dr. Nidhi Dawn Platelet mean volume (Bld) [Entitic vol] 9.6 fL Normal 9.5-13.[address] [facility] Comment on above: Performed By: #### C BC #### [facility] [address] [place] [address] Dr. Nidhi Dawn PLT 228 103/ul Normal 150-[address] [facility] Comment on above: Performed By: #### C BC #### [facility] [address] [place] [address] Dr. Nidhi Dawn RBC 3.32 106/ul Critically low 4.20-5.[address] [facility] Comment on above: Performed By: #### C BC #### [facility] [address] [place] [address] Dr. Nidhi Dawn WBC 7.0 103/ul Normal 4.0-11.[address] [facility] Comment on above: Performed By: #### C BC #### [facility] [address] [place] [address] Dr. Nidhi Dawn CULTURE URINEon 04-04-2022 CULTURE [...] Trimethoprim/Sulfamethoxaz ole <=20 S F Normal [facility] Comment on above: Performed By: #### C HELENA CARCAMO #### [facility] [address] [place] [address] Dr. Nihdi Dawn PROF CHEM 8 ([facility])on Anion gap [Moles/Vol] 8.8 mmol/L Normal [facility] Comment on above: Performed By: #### C HELENA CARCAMO #### [facility] [address] [place] [address] Dr. Nidhi Dawn Calcium [Mass/Vol] 8.7 mg/dL Normal 8.5-10.1 [facility] Comment on above: Performed By: #### C HELENA CARCAMO #### [facility] [address] [place] [address] Dr. Nidhi Dawn Chloride [Moles/Vol] 101 mmol/L Normal 98-[address] [facility] Comment on above: Performed By: #### C HELENA CARCAMO #### [facility] [address] [place] [address] Dr. Nidhi Dawn CO2 [Moles/Vol] 29.6 mmol/L Normal 21.0-32.0 [facility] Comment on above: Performed By: #### C HELENA CARCAMO #### [facility] [address] [place] [address] Dr. Nidhi Dawn Creatinine [Mass/Vol] 0.56 mg/dL Normal 0.55-1.02 [facility] Comment on above: Performed By: #### C HELENA CARCAMO #### [facility] [address] [address] [address] Nidhi Dawn EGFR-AF NICARAGUAN >60 Normal >=[address] [facility] Comment on above: Performed By: #### C HELENA CARCAMO #### [facility] [address] [address] [address] Nidhi Dawn EGFR-NON AF NICARAGUAN >60 Normal >=60 [facility] Comment on above: Performed By: #### C HELENA CARCAMO #### [facility] [address] [address] [address] Nidhi Dawn Glucose [Mass/Vol] 106 mg/dL Normal 74-[address] [facility] Comment on above: Performed By: #### C HELENA CARCAMO #### [facility] [address] [place] [address] Dr. Nidhi Dawn Potassium [Moles/Vol] 3.4 mmol/L Critically low 3.5-5.1 [facility] Comment on above: Performed By: #### C HELENA CARCAMO #### [facility] [address] [place] [address] Dr. Nidhi Dawn Sodium [Moles/Vol] 136 mmol/L Normal 136-[address] [facility] Comment on above: Performed By: #### C HELENA CARCAMO #### [facility] [address] [place] [address] Dr. Nidhi Dawn Urea nitrogen [Mass/Vol] 10.0 mg/dL Normal 7.0-18.0 [facility] Comment on above: Performed By: #### C HELENA CARCAMO #### [facility] [address] [place] [address] Dr. Nidhi Dawn Urea nitrogen/Creatinine [Mass ratio] 17.9 mg/mg Normal [facility] Comment on above: Performed By: #### C HELENA CARCAMO #### [facility] [address] [place] [address] Dr. Nidhi Dawn CBC AUTO DIFFon 04-03-2022 BASO # 0.0 103/ul Normal 0.0-0.1 [facility] Comment on above: Performed By: #### C BC #### [facility] [address] [place] [address] Dr. Nidhi Dawn Basophils/100 WBC (Bld) 0.4 % Normal 0.2-2.0 [facility] Comment on above: Performed By: #### C BC #### [facility] [address] [place] [address] Dr. Nidhi Dawn EO # 0.1 103/ul Normal 0.0-0.[address] [facility] Comment on above: Performed By: #### C BC #### [facility] [address] [place] [address] Dr. Nidhi Dawn Eosinophils/100 WBC (Bld) 1.0 % Normal 0.9-7.[address] [facility] Comment on above: Performed By: #### C BC #### [facility] [address] [place] [address] Dr. Nidhi Dawn Erythrocyte distribution width (RBC) [Ratio] 13.6 % Normal 11.0-15.0 [facility] Comment on above: Performed By: #### C BC #### [facility] [address] [place] [address] Dr. Nidhi Dawn Hematocrit (Bld) [Volume fraction] 28.4 % Critically low 36.0-48.0 [facility] Comment on above: Performed By: #### C BC #### [facility] [address] [place] [address] Dr. Nidhi Dawn Hemoglobin (Bld) [Mass/Vol] 9.2 g/dL Critically low 12.0-16.[address] [facility] Comment on above: Performed By: #### C BC #### [facility] [address] [place] [address] Dr. Nidhi Dawn IG # 0.04 10e3/ul Critically high 0.00-0.[address] [facility] Comment on above: Performed By: #### C BC #### [facility] [address] [place] [address] Dr. Nidhi Dawn IG % 0.5 % Normal 0.0-0.[address] [facility] Comment on above: Performed By: #### C BC #### [facility] [address] [place] [address] Dr. Nidhi Dawn LYMPH # 1.1 103/ul Critically low 1.2-3.8 [facility] Comment on above: Performed By: #### C BC #### [facility] [address] [place] [address] Dr. Nidhi Dawn Lymphocytes/100 WBC (Bld) 13.6 % Critically low 20.5-60.0 [facility] Comment on above: Performed By: #### C BC #### [facility] [address] [place] [address] Dr. Nidhi Dawn MANUAL DIFF REQ NO Normal [facility] Comment on above: Performed By: #### C BC #### [facility] [address] [place] [address] Dr. Nidhi Dawn MCH (RBC) [Entitic mass] 30.0 pg Normal 26.7-34.0 [facility] Comment on above: Performed By: #### C BC #### [facility] [address] [place] [address] Dr. Nidhi Dawn MCHC (RBC) [Mass/Vol] 32.4 g/dL Normal 29.9-35.2 [facility] Comment on above: Performed By: #### C BC #### [facility] [address] [place] [address] Dr. Nidhi Dawn MCV (RBC) [Entitic vol] 92.5 fL Normal 81.0-99.0 [facility] Comment on above: Performed By: #### C BC #### [facility] [address] [place] [address] Dr. Nidhi Dawn MONO # 0.9 103/ul Critically high 0.3-0.[address] [facility] Comment on above: Performed By: #### C BC #### [facility] [address] [place] [address] Dr. Nidhi Dawn Monocytes/100 WBC (Bld) 12.1 % Critically high 1.7-12.0 [facility] Comment on above: Performed By: #### C BC #### [facility] [address] [place] [address] Dr. Nidhi Dawn NEUT # 5.7 103/ul Normal 1.4-6.5 [facility] Comment on above: Performed By: #### C BC #### [facility] [address] [place] [address] Dr. Nidhi Dawn Neutrophils/100 WBC (Bld) 72.4 % Normal 43.0-75.0 [facility] Comment on above: Performed By: #### C BC #### [facility] [address] [place] [address] Dr. Nidhi Dawn Platelet mean volume (Bld) [Entitic vol] 10.1 fL Normal 9.5-13.5 [facility] Comment on above: Performed By: #### C BC #### [facility] [address] [place] [address] Dr. Nidhi Dawn PLT 174 103/ul Normal 150-450 [facility] Comment on above: Performed By: #### C BC #### [facility] [address] [place] [address] Dr. Nidhi Dawn RBC 3.07 106/ul Critically low 4.20-5.40 [facility] Comment on above: Performed By: #### C BC #### [facility] [address] [place] [address] Dr. Nidhi Dawn WBC 7.8 103/ul Normal 4.0-11.0 [facility] Comment on above: Performed By: #### C BC #### [facility] [address] [place] [address] Dr. Nidhi Dawn PROF CHEM 8 (BAS METB)on Anion gap [Moles/Vol] 11.2 mmol/L Normal [facility] Comment on above: Performed By: #### B MP #### [facility] [address] [place] [address] Dr. Nidhi Dawn Calcium [Mass/Vol] 8.4 mg/dL Critically low 8.5-10.1 [facility] Comment on above: Performed By: #### B MP #### [facility] [address] [place] [address] Dr. Nidhi Dawn Chloride [Moles/Vol] 100 mmol/L Normal 98-107 [facility] Comment on above: Performed By: #### B MP #### [facility] [address] [address] [address] Nidhi Dawn CO2 [Moles/Vol] 27.4 mmol/L Normal 21.0-32.0 [facility] Comment on above: Performed By: #### B MP #### [facility] [address] [address] [address] Nidhi Dawn Creatinine [Mass/Vol] 0.56 mg/dL Normal 0.55-1.02 [facility] Comment on above: Performed By: #### B MP #### [facility] [address] [place] [address] Dr. Nidhi Dawn EGFR-AF NICARAGUAN >60 Normal >=60 [facility] Comment on above: Performed By: #### B MP #### [facility] [address] [address] [address] Nidhi Dawn EGFR-NON AF NICARAGUAN >60 Normal >=60 [facility] Comment on above: Performed By: #### B MP #### [facility] [address] [address] [address] Nidhi Dawn Glucose [Mass/Vol] 113 mg/dL Critically high 74-[address] [facility] Comment on above: Performed By: #### B MP #### [facility] [address] [address] [address] Nidhi Dawn Potassium [Moles/Vol] 3.6 mmol/L Normal 3.5-5.1 [facility] Comment on above: Performed By: #### B MP #### [facility] [address] [address] [address] Nidhi Dawn Sodium [Moles/Vol] 135 mmol/L Critically low 136-145 [facility] Comment on above: Performed By: #### B MP #### [facility] [address] [place] [address] Dr. Nidhi Dawn Urea nitrogen [Mass/Vol] 14.0 mg/dL Normal 7.0-18.0 [facility] Comment on above: Performed By: #### B MP #### [facility] [address] [address] [address] Nidhi Dawn Urea nitrogen/Creatinine [Mass ratio] 25.0 mg/mg Normal [facility] Comment on above: Performed By: #### B MP #### [facility] [address] [place] [address] Dr. Nidhi Dawn CBC AUTO DIFFon 04-02-2022 BASO # 0.0 103/ul Normal 0.0-0.1 [facility] Comment on above: Performed By: #### C BC #### [facility] [address] [place] [address] Dr. Nidhi Dawn Basophils/100 WBC (Bld) 0.3 % Normal 0.2-2.0 [facility] Comment on above: Performed By: #### C BC #### [facility] [address] [place] [address] Dr. Nidhi Dawn EO # 0.1 103/ul Normal 0.0-0.7 [facility] Comment on above: Performed By: #### C BC #### [facility] [address] [place] [address] Dr. Nidhi Dawn Eosinophils/100 WBC (Bld) 0.8 % Critically low 0.9-7.0 [facility] Comment on above: Performed By: #### C BC #### [facility] [address] [place] [address] Dr. Nidhi Dawn Erythrocyte distribution width (RBC) [Ratio] 13.8 % Normal 11.0-15.0 [facility] Comment on above: Performed By: #### C BC #### [facility] [address] [place] [address] Dr. Nidhi Dawn Hematocrit (Bld) [Volume fraction] 30.1 % Critically low 36.0-48.0 [facility] Comment on above: Performed By: #### C BC #### [facility] [address] [place] [address] Dr. Nidhi Dawn Hemoglobin (Bld) [Mass/Vol] 10.1 g/dL Critically low 12.0-16.0 [facility] Comment on above: Performed By: #### C BC #### [facility] [address] [place] [address] Dr. Nidhi Dawn IG # 0.03 10e3/ul Normal 0.00-0.03 [facility] Comment on above: Performed By: #### C BC #### [facility] [address] [place] [address] Dr. Nidhi Dawn IG % 0.3 % Normal 0.0-0.5 [facility] Comment on above: Performed By: #### C BC #### [facility] [address] [place] [address] Dr. Nidhi Dawn LYMPH # 1.0 103/ul Critically low 1.2-3.8 [facility] Comment on above: Performed By: #### C BC #### [facility] [address] [place] [address] Dr. Nidhi Dawn Lymphocytes/100 WBC (Bld) 10.6 % Critically low 20.5-60.0 [facility] Comment on above: Performed By: #### C BC #### [facility] [address] [place] [address] Dr. Nidhi Dawn MANUAL DIFF REQ NO Normal [facility] Comment on above: Performed By: #### C BC #### [facility] [address] [place] [address] Dr. Nidhi Dawn MCH (RBC) [Entitic mass] 30.7 pg Normal 26.7-34.0 [facility] Comment on above: Performed By: #### C BC #### [facility] [address] [place] [address] Dr. Nidhi Dawn MCHC (RBC) [Mass/Vol] 33.6 g/dL Normal 29.9-35.2 [facility] Comment on above: Performed By: #### C BC #### [facility] [address] [place] [address] Dr. Nidhi Dawn MCV (RBC) [Entitic vol] 91.5 fL Normal 81.0-99.0 [facility] Comment on above: Performed By: #### C BC #### [facility] [address] [address] [address] Nidhi Dawn MONO # 1.0 103/ul Critically high 0.3-0.8 [facility] Comment on above: Performed By: #### C BC #### [facility] [address] [address] [address] Nidhi Dawn Monocytes/100 WBC (Bld) 10.3 % Normal 1.7-12.0 [facility] Comment on above: Performed By: #### C BC #### [facility] [address] [address] [address] Nidhi Dawn NEUT # 7.4 103/ul Critically high 1.4-6.5 [facility] Comment on above: Performed By: #### C BC #### [facility] [address] [place] [address] Dr. Nidhi Dawn Neutrophils/100 WBC (Bld) 77.7 % Critically high 43.0-75.0 [facility] Comment on above: Performed By: #### C BC #### [facility] [address] [place] [address] Dr. Nidhi Dawn Platelet mean volume (Bld) [Entitic vol] 10.0 fL Normal 9.5-13.5 [facility] Comment on above: Performed By: #### C BC #### [facility] [address] [place] [address] Dr. Nidhi Dawn PLT 175 103/ul Normal 150-[address] [facility] Comment on above: Performed By: #### C BC #### [facility] [address] [place] [address] Dr. Nidhi Dawn RBC 3.29 106/ul Critically low 4.20-5.[address] [facility] Comment on above: Performed By: #### C BC #### [facility] [address] [place] [address] Dr. Nidhi Dawn WBC 9.5 103/ul Normal 4.0-11.[address] [facility] Comment on above: Performed By: #### C BC #### [facility] [address] [address] [address] Nidhi Dawn ER URINE PROFILEon 2 Bilirubin Ql (U) Negative Normal NEGATIVE [facility] Comment on above: Performed By: #### C MP, CMADM #### [facility] [address] [place] [address] Dr. Nidhi Dawn Clarity (U) CLEAR Normal CLEAR [facility] Comment on above: Performed By: #### C MP, CMADM #### [facility] [address] [place] [address] Dr. Nidhi Dawn Color (U) YELLOW Normal YELLOW [facility] Comment on above: Performed By: #### C MP, CMADM #### [facility] [address] [place] [address] Dr. Nidhi TERRAZAS A micrscopic examina tion will be performed if indicated. Normal [facility] Comment on above: Performed By: #### C MP, CMADM #### [facility] [address] [place] [address] Dr. Nidhi Dawn Glucose Ql (U) Negative Normal NEGATIVE [facility] Comment on above: Performed By: #### C MP, CMADM #### [facility] [address] [place] [address] Dr. Nidhi Dawn Hemoglobin Ql (U) MODERATE Abnormal NEGATIVE [facility] Comment on above: Performed By: #### C MP, CMADM #### [facility] [address] [address] [address] Nidhi Dawn Ketones Ql (U) TRACE Abnormal NEGATIVE [facility] Comment on above: Performed By: #### C MP, CMADM #### [facility] [address] [address] [address] Nidhi Dawn LEUKOCYTES MODERATE Abnormal NEGATIVE [facility] Comment on above: Performed By: #### C MP, CMADM #### [facility] [address] [place] [address] Dr. Nidhi Dawn Nitrite Ql (U) Positive Abnormal NEGATIVE [facility] Comment on above: Performed By: #### C MP, CMADM #### [facility] [address] [place] [address] Dr. Nidhi Dawn pH (U) [pH] Abnormal 5-[address] [facility] Comment on above: Performed By: #### C DONA, CMADM #### [facility] [address] [place] [address] Dr. Nidhi Dawn Protein (U) [Mass/Vol] 100 mg/dL Abnormal NEGAT GRIFFIN/ TRACE [facility] Comment on above: Performed By: #### C DONA, CMADM #### [facility] [address] [place] [address] Dr. Nidhi Dawn SPEC GRAVITY <=1.005 Abnormal 1.005-<=1.[address] [place] [address] Comment on above: Performed By: #### C DONA, CMADM #### [facility] [address] [place] [address] Dr. Nidhi Dawn UR MICRO IND INDICATED Normal [facility] Comment on above: Performed By: #### C DONA, LEONCIODM #### [facility] [address] [place] [address] Dr. Nidhi Dawn Urobilinogen Qn (U) 1.0 {Lawrence'U}/dL Normal 0.2 - 1. 0 [facility] Comment on above: Performed By: #### C DONA, CMADM #### [facility] [address] [place] [address] Dr. Nidhi Dawn FREE T3on 04-02-2022 FREE T3 1.84 pg/mlL Critically low 2.18-3.98 [facility] Comment on above: Performed By: #### C BC #### [facility] [address] [place] [address] Dr. Nidhi Dawn PROF CHEM 8 (BAS METB)on Anion gap [Moles/Vol] 10.9 mmol/L Normal [facility] Comment on above: Performed By: #### C BC #### [facility] [address] [place] [address] Dr. Nidhi Dawn Calcium [Mass/Vol] 8.6 mg/dL Normal 8.5-10.1 [facility] Comment on above: Performed By: #### C BC #### [facility] [address] [address] [address] Nidhi Dawn Chloride [Moles/Vol] 102 mmol/L Normal 98-107 [facility] Comment on above: Performed By: #### C BC #### [facility] [address] [address] [address] Nidhi Dawn CO2 [Moles/Vol] 24.9 mmol/L Normal 21.0-32.0 [facility] Comment on above: Performed By: #### C BC #### [facility] [address] [place] [address] Dr. Nidhi Dawn Creatinine [Mass/Vol] 0.42 mg/dL Critically low 0.55-1.02 [facility] Comment on above: Performed By: #### C BC #### [facility] [address] [place] [address] Dr. Nidhi Dawn EGFR-AF NICARAGUAN >60 Normal >=60 [facility] Comment on above: Performed By: #### C BC #### [facility] [address] [place] [address] Dr. Nidhi Dawn EGFR-NON AF NICARAGUAN >60 Normal >=60 [facility] Comment on above: Performed By: #### C BC #### [facility] [address] [place] [address] Dr. Nidhi Dawn Glucose [Mass/Vol] 103 mg/dL Normal 74-[address] [facility] Comment on above: Performed By: #### C BC #### [facility] [address] [place] [address] Dr. Nidhi Dawn Potassium [Moles/Vol] 3.8 mmol/L Normal 3.5-5.[address] [facility] Comment on above: Performed By: #### C BC #### [facility] [address] [place] [address] Dr. Nidhi Dawn Sodium [Moles/Vol] 134 mmol/L Critically low 136-145 Th [facility] Comment on above: Performed By: #### C BC #### [facility] [address] [place] [address] Dr. Nidhi Dawn Urea nitrogen [Mass/Vol] 14.0 mg/dL Normal 7.0-18.[address] [facility] Comment on above: Performed By: #### C BC #### [facility] [address] [place] [address] Dr. Nidhi Dawn Urea nitrogen/Creatinine [Mass ratio] 33.3 mg/mg Normal [facility] Comment on above: Performed By: #### C BC #### [facility] [address] [place] [address] Dr. Nidhi Dawn URINE MICROSCOPIC ONLYon BACTERIA MODERATE Abnormal NONE SEEN [facility] Comment on above: Performed By: #### C MP, CMADM #### [facility] Laboratory [address] [place] [address] Dr. Nidhi Dawn Bacteria identified Cx Nom (U) INDICATED Normal [facility] Comment on above: Performed By: #### C MP, CMADM #### [facility] Laboratory [address] [place] [address] Dr. Nidhi Dawn CAST NONE SEEN Normal NONE SEEN [facility] Comment on above: Performed By: #### C MP, CMADM #### [facility] Laboratory [address] [place] [address] Dr. Nidhi Dawn Crystals LM Nom (Urine sed) NONE SEEN Normal NONE SEEN [facility] Comment on above: Performed By: #### C MP, CMADM #### [facility] Laboratory [address] [place] [address] Dr. Nidhi Dawn Epithelial cells LM Ql (Urine sed) RARE Normal NONE SEEN /RARE [facility] Comment on above: Performed By: #### C MP, CMADM #### [facility] Laboratory [address] [place] [address] Dr. Nidhi Dawn MUCOUS TRACE Abnormal NONE SEEN [facility] Comment on above: Performed By: #### C MP, CMADM #### [facility] Laboratory [address] [place] [address] Dr. Nidhi Dawn RBC 5-10 Abnormal 0-[address] [facility] Comment on above: Performed By: #### C MP, CMADM #### [facility] Laboratory [address] [address] [address] Nidhi Dawn WBC 10-20 Abnormal NONE SEEN [facility] Comment on above: Performed By: #### C HELENA CARCAMO #### [facility] Laboratory [address] [address] [address] Nidhi Dawn CBC AUTO DIFFon 04-01-2022 BASO # 0.0 103/ul Normal 0.0-0.1 [facility] Comment on above: Performed By: #### C BC #### [facility] Laboratory [address] [place] [address] Dr. Nidhi Dawn Basophils/100 WBC (Bld) 0.1 % Critically low 0.2-2.0 [facility] Comment on above: Performed By: #### C BC #### [facility] Laboratory [address] [place] [address] Dr. Nidhi Dawn EO # 0.0 103/ul Normal 0.0-0.7 [facility] Comment on above: Performed By: #### C BC #### [facility] Laboratory [address] [place] [address] Dr. Nidhi Dawn Eosinophils/100 WBC (Bld) 0.1 % Critically low 0.9-7.0 [facility] Comment on above: Performed By: #### C BC #### [facility] Laboratory [address] [place] [address] Dr. Nidhi Dawn Erythrocyte distribution width (RBC) [Ratio] 13.9 % Normal 11.0-15.[address] [facility] Comment on above: Performed By: #### C BC #### [facility] Laboratory [address] [place] [address] Dr. Nidhi Dawn Hematocrit (Bld) [Volume fraction] 31.4 % Critically low 36.0-48.[address] [facility] Comment on above: Performed By: #### C BC #### [facility] Laboratory [address] [place] [address] Dr. Nidhi Dawn Hemoglobin (Bld) [Mass/Vol] 10.3 g/dL Critically low 12.0-16.0 [facility] Comment on above: Performed By: #### C BC #### [facility] [address] [place] [address] Dr. Nidhi Dawn IG # 0.03 10e3/ul Normal 0.00-0.03 [facility] Comment on above: Performed By: #### C BC #### [facility] [address] [place] [address] Dr. Nidhi Dawn IG % 0.3 % Normal 0.0-0.5 [facility] Comment on above: Performed By: #### C BC #### [facility] [address] [place] [address] Dr. Nidhi Dawn LYMPH # 1.3 103/ul Normal 1.2-3.[address] [facility] Comment on above: Performed By: #### C BC #### [facility] Laboratory [address] [place] [address] Dr. Nidhi Dawn Lymphocytes/100 WBC (Bld) 13.5 % Critically low 20.5-60.0 [facility] Comment on above: Performed By: #### C BC #### [facility] [address] [place] [address] Dr. Nidhi Dawn MANUAL DIFF REQ NO Normal [facility] Comment on above: Performed By: #### C BC #### [facility] [address] [place] [address] Dr. Nidhi Dawn MCH (RBC) [Entitic mass] 30.3 pg Normal 26.7-34.0 [facility] Comment on above: Performed By: #### C BC #### [facility] [address] [place] [address] Dr. Nidhi Dawn MCHC (RBC) [Mass/Vol] 32.8 g/dL Normal 29.9-35.[address] [facility] Comment on above: Performed By: #### C BC #### [facility] [address] [place] [address] Dr. Nidhi Dawn MCV (RBC) [Entitic vol] 92.4 fL Normal 81.0-99.0 [facility] Comment on above: Performed By: #### C BC #### [facility] [address] [place] [address] Dr. Nidhi Dawn MONO # 1.1 103/ul Critically high 0.3-0.[address] [facility] Comment on above: Performed By: #### C BC #### [facility] [address] [place] [address] Dr. Nidhi Dawn Monocytes/100 WBC (Bld) 11.1 % Normal 1.7-12.0 [facility] Comment on above: Performed By: #### C BC #### [facility] [address] [place] [address] Dr. Nidhi Dawn NEUT # 7.4 103/ul Critically high 1.4-6.[address] [facility] Comment on above: Performed By: #### C BC #### [facility] [address] [place] [address] Dr. Nidhi Dawn Neutrophils/100 WBC (Bld) 74.9 % Normal 43.0-75.0 [facility] Comment on above: Performed By: #### C BC #### [facility] [address] [place] [address] Dr. Nidhi Dawn Platelet mean volume (Bld) [Entitic vol] 9.9 fL Normal 9.5-13.[address] [facility] Comment on above: Performed By: #### C BC #### [facility] [address] [place] [address] Dr. Nidhi Dawn PLT 219 103/ul Normal 150-[address] [facility] Comment on above: Performed By: #### C BC #### [facility] [address] [place] [address] Dr. Nidhi Dawn RBC 3.40 106/ul Critically low 4.20-5.[address] [facility] Comment on above: Performed By: #### C BC #### [facility] [address] [place] [address] Dr. Nidhi Dawn WBC 9.9 103/ul Normal 4.0-11.[address] [facility] Comment on above: Performed By: #### C BC #### [facility] [address] [place] [address] Dr. Nidhi Dawn PROF CHEM 8 (BAS METB)on Anion gap [Moles/Vol] 9.7 mmol/L Normal [facility] Comment on above: Performed By: #### B MP #### [facility] [address] [address] [address] Nidhi Dawn Calcium [Mass/Vol] 8.5 mg/dL Normal 8.5-10.1 [facility] Comment on above: Performed By: #### B MP #### [facility] [address] [place] [address] Dr. Nidhi Dawn Chloride [Moles/Vol] 102 mmol/L Normal 98-107 [facility] Comment on above: Performed By: #### B MP #### [facility] [address] [place] [address] Dr. Nidhi Dawn CO2 [Moles/Vol] 28.8 mmol/L Normal 21.0-32.0 [facility] Comment on above: Performed By: #### B MP #### [facility] [address] [place] [address] Dr. Nidhi Dawn Creatinine [Mass/Vol] 0.54 mg/dL Critically low 0.55-1.02 [facility] Comment on above: Performed By: #### B MP #### [facility] [address] [place] [address] Dr. Nidhi Dawn EGFR-AF NICARAGUAN >60 Normal >=60 [facility] Comment on above: Performed By: #### B MP #### [facility] [address] [place] [address] Dr. Nidhi Dawn EGFR-NON AF NICARAGUAN >60 Normal >=60 [facility] Comment on above: Performed By: #### B MP #### [facility] [address] [place] [address] Dr. Nidhi Dawn Glucose [Mass/Vol] 108 mg/dL Critically high 74-[address] [facility] Comment on above: Performed By: #### B MP #### [facility] [address] [address] [address] Nidhi Dawn Potassium [Moles/Vol] 3.5 mmol/L Normal 3.5-5.1 [facility] Comment on above: Performed By: #### B MP #### [facility] [address] [place] [address] Dr. Nidhi Dawn Sodium [Moles/Vol] 137 mmol/L Normal 136-145 [facility] Comment on above: Performed By: #### B MP #### [facility] [address] [place] [address] Dr. Nidhi Dawn Urea nitrogen [Mass/Vol] 14.0 mg/dL Normal 7.0-18.0 [facility] Comment on above: Performed By: #### B MP #### [facility] [address] [place] [address] Dr. Nidhi Dawn Urea nitrogen/Creatinine [Mass ratio] 25.9 mg/mg Normal [facility] Comment on above: Performed By: #### B MP #### [facility] [address] [place] [address] Dr. Nidhi Dawn CARDIAC CELESTINO ADMITon 022 CK [Catalytic activity/Vol] 60 U/L Normal 26-192 [facility] Comment on above: Performed By: #### C BC #### [facility] [address] [place] [address] Dr. Nidhi Dawn CK.MB [Mass/Vol] 2.29 ng/mL Normal <=3.60 [facility] Comment on above: Performed By: #### C BC #### [facility] [address] [place] [address] Dr. Nidhi Dawn HSTROP 5.8 pg/mL Normal 4.0-51.3 [facility] Comment on above: Result Comment: CUT- OFF POINTS HAVE BEEN ESTABLISHED BASED ON THE FOURTH UNIVERSAL DEFINITIONS OF MYOCARDIAL INFARCTION. THE UPPER REFERENCE LIMIT (URL) OF TROPONIN, DEFINED THE 99TH PERCENTILE OF cTnI DISTRIBUTION IN A REFERENCE POPULATION, HAS BEEN CONFIRMED THE DECISION THRESHOLD FOR IA DIAGNOSIS. Performed By: #### C BC #### [facility] [address] [place] [address] Dr. Nidhi Dawn BOBBY 63 ng/mL Normal 9-82 [facility] Comment on above: Performed By: #### C BC #### [facility] [address] [address] [address] Nidhi Dawn CBC AUTO DIFFon 03-31-2022 BASO # 0.0 103/ul Normal 0.0-0.1 [facility] Comment on above: Performed By: #### C BC #### [facility] [address] [address] [address] Nidhi Dawn Basophils/100 WBC (Bld) 0.3 % Normal 0.2-2.0 [facility] Comment on above: Performed By: #### C BC #### [facility] [address] [address] [address] Nidhi Dawn EO # 0.0 103/ul Normal 0.0-0.7 [facility] Comment on above: Performed By: #### C BC #### [facility] [address] [place] [address] Dr. Nidhi Dawn Eosinophils/100 WBC (Bld) 0.3 % Critically low 0.9-7.0 [facility] Comment on above: Performed By: #### C BC #### [facility] [address] [address] [address] Nidhi Dawn Erythrocyte distribution width (RBC) [Ratio] 13.8 % Normal 11.0-15.0 [facility] Comment on above: Performed By: #### C BC #### [facility] [address] [place] [address] Dr. Nidhi Dawn Hematocrit (Bld) [Volume fraction] 39.3 % Normal 36.0-48.0 [facility] Comment on above: Performed By: #### C BC #### [facility] [address] [address] [address] Nidhi Dawn Hemoglobin (Bld) [Mass/Vol] 12.8 g/dL Normal 12.0-16.0 [facility] Comment on above: Performed By: #### C BC #### [facility] [address] [address] [address] Nidhi Dawn IG # 0.10 10e3/ul Critically high 0.00-0.03 [facility] Comment on above: Performed By: #### C BC #### [facility] [address] [place] [address] Dr. Nidhi Dawn IG % 0.8 % Critically high 0.0-0.5 [facility] Comment on above: Performed By: #### C BC #### [facility] [address] [place] [address] Dr. Nidhi Dawn LYMPH # 1.1 103/ul Critically low 1.2-3.8 [facility] Comment on above: Performed By: #### C BC #### [facility] [address] [place] [address] Dr. Nidhi Dawn Lymphocytes/100 WBC (Bld) 9.3 % Critically low 20.5-60.0 [facility] Comment on above: Performed By: #### C BC #### [facility] [address] [place] [address] Dr. Nidhi Dawn MANUAL DIFF REQ NO Normal [facility] Comment on above: Performed By: #### C BC #### [facility] [address] [place] [address] Dr. Nidhi Dawn MCH (RBC) [Entitic mass] 30.0 pg Normal 26.7-34.0 [facility] Comment on above: Performed By: #### C BC #### [facility] [address] [place] [address] Dr. Nidhi Dawn MCHC (RBC) [Mass/Vol] 32.6 g/dL Normal 29.9-35.2 [facility] Comment on above: Performed By: #### C BC #### [facility] [address] [place] [address] Dr. Nidhi Dawn MCV (RBC) [Entitic vol] 92.3 fL Normal 81.0-99.0 [facility] Comment on above: Performed By: #### C BC #### [facility] [address] [place] [address] Dr. Nidhi Dawn MONO # 0.8 103/ul Normal 0.3-0.8 [facility] Comment on above: Performed By: #### C BC #### [facility] [address] [address] [address] Nidhi Dawn Monocytes/100 WBC (Bld) 6.6 % Normal 1.7-12.0 [facility] Comment on above: Performed By: #### C BC #### [facility] [address] [address] [address] Nidhi Dawn NEUT # 9.8 103/ul Critically high 1.4-6.5 [facility] Comment on above: Performed By: #### C BC #### [facility] [address] [address] [address] Nidhi Dawn Neutrophils/100 WBC (Bld) 82.7 % Critically high 43.0-75.0 [facility] Comment on above: Performed By: #### C BC #### [facility] [address] [place] [address] Dr. Nidhi Dawn Platelet mean volume (Bld) [Entitic vol] 9.3 fL Critically low 9.5-13.5 [facility] Comment on above: Performed By: #### C BC #### [facility] [address] [place] [address] Dr. Nidhi Dawn PLT 284 103/ul Normal 150-[address] [facility] Comment on above: Performed By: #### C BC #### [facility] [address] [place] [address] Dr. Nidhi Dawn RBC 4.26 106/ul Normal 4.20-5.[address] [facility] Comment on above: Performed By: #### C BC #### [facility] [address] [place] [address] Dr. Nidhi Dawn WBC 11.8 103/ul Critically high 4.0-11.[address] [facility] Comment on above: Performed By: #### C BC #### [facility] [address] [place] [address] CHEST W CONon [...] by: TAYLOR PENA Date: 2022-03-31 14:36 Normal [facility] CT CSPINE WO CONon CT CSPINE [...] TAYLOR PENA Date: 2022-03-31 14:48 Normal [facility] CT HEAD WO CONon 03-31-2022 CT [...] TAYLOR PENA Date: 2022-03-31 14:11 Normal [facility] CT LSPINE WO CONon 2 CT [...] TAYLOR PENA Date: 2022-03-31 14:27 Normal [facility] Covid-19 PCR (CVDTB)on SARS-CoV-2 (COVID-19) RNA COLLINS+probe Ql (Unsp spec) Not detected Normal NOT DETECTED [facility] Comment on above: Result Comment: When [...] for this test is supported by the [employer] of Health and Human Service's declaration [...] longer be used). Performed By: #### [facility] #### [facility] [address] [place] [address] Dr. Nidhi Dawn PROF 14(COMP METB)on 022 Albumin [Mass/Vol] 3.7 g/dL Normal 3.4-5.[address] [facility] Comment on above: Performed By: #### C BC #### [facility] [address] [place] [address] Dr. Nidhi Dawn Albumin/Globulin [Mass ratio] 1.2 {ratio} Normal [facility] Comment on above: Performed By: #### C BC #### [facility] [address] [place] [address] Dr. Nidhi Dawn ALP [Catalytic activity/Vol] 55 U/L Normal 46-[address] [facility] Comment on above: Performed By: #### C BC #### [facility] [address] [place] [address] Dr. Nidhi Dawn ALT [Catalytic activity/Vol] 24 U/L Normal 14-[address] [facility] Comment on above: Performed By: #### C BC #### [facility] [address] [place] [address] Dr. Nidhi Dawn Anion gap [Moles/Vol] 9.2 mmol/L Normal [facility] Comment on above: Performed By: #### C BC #### [facility] [address] [place] [address] Dr. Nidhi Dawn AST [Catalytic activity/Vol] 19 U/L Normal 15-[address] [facility] Comment on above: Performed By: #### C BC #### [facility] [address] [place] [address] Dr. Nidhi Dawn Bilirubin [Mass/Vol] 0.5 mg/dL Normal 0.2-1.0 [facility] Comment on above: Performed By: #### C BC #### [facility] [address] [address] [address] Nidhi Dawn Calcium [Mass/Vol] 9.1 mg/dL Normal 8.5-10.1 [facility] Comment on above: Performed By: #### C BC #### [facility] [address] [address] [address] Nidhi Dawn Chloride [Moles/Vol] 103 mmol/L Normal 98-107 [facility] Comment on above: Performed By: #### C BC #### [facility] [address] [address] [address] Nidhi Dawn CO2 [Moles/Vol] 28.0 mmol/L Normal 21.0-32.0 [facility] Comment on above: Performed By: #### C BC #### [facility] [address] [place] [address] Dr. Nidhi Dawn Creatinine [Mass/Vol] 0.56 mg/dL Normal 0.55-1.02 [facility] Comment on above: Performed By: #### C BC #### [facility] [address] [place] [address] Dr. Nidhi Dawn EGFR-AF NICARAGUAN >60 Normal >=60 [facility] Comment on above: Performed By: #### C BC #### [facility] [address] [address] [address] Nidhi Dawn EGFR-NON AF NICARAGUAN >60 Normal >=60 [facility] Comment on above: Performed By: #### C BC #### [facility] [address] [place] [address] Dr. Nidhi Dawn Globulin (S) [Mass/Vol] 3.2 g/dL Normal [facility] Comment on above: Performed By: #### C BC #### [facility] [address] [address] [address] Nidhi Dawn Glucose [Mass/Vol] 140 mg/dL Critically high 74-106 [facility] Comment on above: Performed By: #### C BC #### [facility] [address] [address] [address] Nidhi Dawn Potassium [Moles/Vol] 3.2 mmol/L Critically low 3.5-5.[address] [facility] Comment on above: Performed By: #### C BC #### [facility] [address] [address] [address] Nidhi Dawn Protein [Mass/Vol] 6.9 g/dL Normal 6.4-8.[address] [facility] Comment on above: Performed By: #### C BC #### [facility] [address] [address] [address] Nidhi Dawn Sodium [Moles/Vol] 137 mmol/L Normal 136-145 [facility] Comment on above: Performed By: #### C BC #### [facility] [address] [address] [address] Nidhi Dawn Urea nitrogen [Mass/Vol] 13.0 mg/dL Normal 7.0-18.0 [facility] Comment on above: Performed By: #### C BC #### [facility] [address] [address] [address] Nidhi Dawn Urea nitrogen/Creatinine [Mass ratio] 23.2 mg/mg Normal [facility] Comment on above: Performed By: #### C BC #### [facility] [address] [address] [address] Nidhi Dawn PROTIMEon 03-31-2022 INR Coag (PPP) [Relative time] 1.01 {INR} Normal [facility] Comment on above: Performed By: #### C BC #### [facility] [address] [address] [address] Nidhi Dawn INR GUIDELINES SEE BELOW Normal [facility] Comment on above: Result Comment: BASSEM RED INR: 2.0 - 3.0 CONDITIONS NOT LISTED BELOW 2.5 - 3.5 FOR PROSTHETIC HEART VALVE REPLACEMENT 2.5 - 3.5 RECURRENT THROMBOSIS Performed By: #### C BC #### [facility] [address] [address] [address] Nidhi Dawn PT Coag (PPP) [Time] 10.9 s Normal 9.0-11.6 [facility] Comment on above: Performed By: #### C BC #### [facility] [address] [address] [address] iNdhi Dawn PTTon 03-31-2022 aPTT Coag (Bld) [Time] 25.7 s Normal 22.3-36.[address] [facility] Comment on above: Performed By: #### C BC #### [facility] [address] [address] [address] Nidhi Dawn TSHon 03-31-2022 TSH 3.763 uIU/mL Critically high 0.358-3.740 [facility] Comment on above: Performed By: #### C BC #### [facility] [address] [address] [address] Nidhi Dawn XR HIP RT 2 [...] AVEL BUENO Date: 2022-03-31 14:33 Normal [facility] XR HIP RT 2 3V W [...] by: KANDIS KENNY Date: 2021-12-14 21:43 Normal [facility] CT PELVIS WO CONon 2 CT PELVIS [...] by: ISRAEL JUÁREZ Date: 2021-12-13 18:51 Normal [facility] Vital Signs Date Time Vital Sign Value Performing Clinician Facility 10-25-2023 11:40-0400 Body height 149.9 cm Ashley ALMONTE Work Phone: [facility] 10-25-2023 11:40-0400 Body mass index (BMI) [Ratio] 19.09 kg/m2 Ashley Olvera APRNJayporeHIGH SCHOOL HISTORY TEACHER Work Phone: [facility] 10-25-2023 11:40-0400 Body temperature 97.39 [degF] Ashley DAVIESHIGH SCHOOL HISTORY TEACHER Work Phone: [facility] 10-25-2023 11:40-0400 Body weight 42.87 kg Ashley Olvera APRN-SARAH Work Phone: [facility] 10-25-2023 11:40-0400 Diastolic blood pressure 62 mm[Hg] Ashley Olvera APRN-SARAH Work Phone: [facility] [facility] 10-25-2023 11:40-0400 Heart rate 57 /min Ashley Olvera APRN-SARAH Work Phone: [facility] 10-25-2023 11:40-0400 Respiratory rate 18 /min Ashley Olvera APRN-SARAH Work Phone: [facility] 10-25-2023 11:40-0400 SaO2% (BldA) [Mass fraction] 99 % Ashley Olvera APRN-SARAH Work Phone: [facility] 10-25-2023 11:40-0400 Systolic blood pressure 120 mm[Hg] Ashley Olvera APRN-SARAH Work Phone: [facility] 10-09-2023 11:45-0400 Body height 149.9 cm Ashley Olvera APRN-SARAH Work Phone: [facility] 10-09-2023 11:45-0400 Body mass index (BMI) [Ratio] 18.46 kg/m2 Ashley Olvera APRN-SARAH Work Phone: [facility] 10-09-2023 11:45-0400 Body temperature 97.3 [degF] Ashley Olvera APRN-SARAH Work Phone: [facility] 10-09-2023 11:45-0400 Body weight 41.46 kg Ashley Olvera APRN-SARAH Work Phone: [facility] 10-09-2023 11:45-0400 Diastolic blood pressure 60 mm[Hg] Ashley Olvera APRN-SARAH Work Phone: [facility] 10-09-2023 11:45-0400 Heart rate 70 /min Ashley Olvera APRN-SARAH Work Phone: [facility] 10-09-2023 11:45-0400 Respiratory rate 22 /min Ashley Olvera APRN-HIGH [employer]CHO[employer] H[employer]ORY TEACHER Work Phone: [facility] 10-09-2023 11:45-0400 SaO2% (BldA) [Mass fraction] 100 % Ashley Olvera APRN-SARAH Work Phone: [facility] 10-09-2023 11:45-0400 Systolic blood pressure 128 mm[Hg] Ashley Olvera APRN-SARAH Work Phone: [facility] 09-27-2023 15:42-0500 Body height 149.9 cm Ashley Olvera APRN-HIGH [employer]CHO[employer] HISTORY TEACHER Work Phone: [facility] 09-27-2023 15:42-0500 Body mass index (BMI) [Ratio] 19.79 kg/m2 Ashley Olvera APRN-SARAH Work Phone: [facility] 09-27-2023 15:42-0500 Body temperature 98.01 [degF] Ashley Olvera APRN-SARAH Work Phone: [facility] 09-27-2023 15:42-0500 Body weight 44.45 kg Ashley Olvera APRN-HIGH [employer]CHO[employer] HISTORY TEACHER Work Phone: [facility] 09-27-2023 15:42-0500 Diastolic blood pressure 80 mm[Hg] Ashley Olvera APRN-HIGH SCHO[employer] HISTORY TEACHER Work Phone: [facility] 09-27-2023 15:42-0500 Heart rate 59 /min Ashley Olvera APRN-HIGH SCHO[employer] HISTORY TEACHER Work Phone: [facility] 09-27-2023 15:42-0500 Respiratory rate 18 /min Ashley Olvera APRN-HIGH [employer]CHO[employer] HISTORY TEACHER Work Phone: [facility] 09-27-2023 15:42-0500 SaO2% (BldA) [Mass fraction] 93 % Ashley Olvera FERRY OPERATOR-HIGH SCHOOL HISTORY TEACHER Work Phone: [facility] 09-27-2023 15:42-0500 Systolic blood pressure 122 mm[Hg] Ashley Olvera FERRY OPERATOR-HIGH [employer]CHO[employer] HISTORY TEACHER Work Phone: [facility] 10-03-2022 16:00-0400 Body temperature 97.6 [degF] CLINICAL TECHNICIAN-C Ashley Olvera Work Phone: [facility] 10-03-2022 16:00-0400 Diastolic blood pressure 79 mm[Hg] CLINICAL TECHNICIAN-C Ashley Olvera Work Phone: [facility] 10-03-2022 16:00-0400 Heart rate 77 /min CLINICAL TECHNICIAN-C Ashley Olvera Work Phone: [facility] 10-03-2022 16:00-0400 Respiratory rate 16 /min CLINICAL TECHNICIAN-C Ashley Olvera Work Phone: [facility] 10-03-2022 16:00-0400 SaO2% (BldA) [Mass fraction] 100 % CLINICAL TECHNICIAN-C Ashley Olvera Work Phone: [facility] 10-03-2022 16:00-0400 Systolic blood pressure 156 mm[Hg] CLINICAL TECHNICIAN-C Ashley Olvera Work Phone: [facility] 10-02-2022 20:00-0400 Inhaled oxygen flow rate 2 L/min CLINICAL TECHNICIAN-C Ashley Olvera Work Phone: [facility] 09-29-2022 06:00-0500 Body weight 49 kg CLINICAL TECHNICIAN-C Ashley Olvear Work Phone: [facility] 09-28-2022 16:10-0500 Body height 147.32 cm CLINICAL TECHNICIAN-C Ashley Olvera Work Phone: [facility] 09-28-2022 16:10-0500 Body mass index (BMI) [Ratio] 18.6 kg/m2 JULES Olvera Work Phone: [facility] 12-13-2021 16:30-0400 Body height 152.4 cm Rylie Galvan Other [employer] Other 12-13-2021 16:30-0400 Body mass index (BMI) [Ratio] 19.33 kg/m2 Rylie Mandy Other [employer] Other 12-13-2021 16:30-0400 Body temperature 98 [degF] Rylie Brooksmond Other [employer] Other 12-13-2021 16:30-0400 Body weight 44.91 kg Rylie Brooksmond Other [employer] Other 12-13-2021 16:30-0400 Diastolic blood pressure 83 mm[Hg] Rylie Brooksmond Other [employer] Other 12-13-2021 16:30-0400 Respiratory rate 18 /min Rylie Brooksmond Other [employer] Other 12-13-2021 16:30-0400 SaO2% (BldA) [Mass fraction] 97 % Rylie Mandy Other [employer] Other 12-13-2021 16:30-0400 Systolic blood pressure 130 mm[Hg] Rylie Mandy Other [employer] Other Encounters Encounter Date Encounter Type Care Provider Facility Start: 11-21-2023 End: 11-21-2023 ambulatory ASHLEY OLVERA [facility] Start: 11-07-2023 End: 11-07-2023 ambulatory ITALO DONOHUE Not Available Start: 10-25-2023 End: 10-25-2023 ambulatory [facility] Start: 10-25-2023 End: 10-25-2023 Office outpatient visit 15 minutes Ashley Shruthi Wade FERRY OPERATOR-[employer] H[employer]ORY TEACHER Work Phone: [facility] Comment on above: Arthritis, multiple joint involvement (Primary Dx); History of healed osteoporosis fracture; Decreased mobility and endurance Start: 10-17-2023 Orders Only Ashleyemelia hoyos FERRY OPERATOR-H[employer]CHO[employer] HISTORY TEACHER Work Phone: [facility] Comment on above: Arthritis, multiple joint involvement (Primary Dx); Benign essential HTN Start: 10-09-2023 End: 10-09-2023 Refill Justus Gastelum CMA [facility] Comment on above: Arthritis, multiple joint involvement Start: 10-09-2023 End: 10-09-2023 Transitional care manage srvc 7 day discharge Ashley Olvera FERRY OPERATOR-[facility] Work Phone: [facility] Comment on above: Pneumonia of left lo wer lobe due to infectious organism (Primary Dx); Benign essential HTN; Arthritis, multiple joint involvement; Rash and nonspecific skin eruption Start: 09-27-2023 End: 09-27-2023 ambulatory [facility] Start: 09-27-2023 End: 09-27-2023 Office outpatient visit 15 minutes Ashley Olvera FERRY OPERATOR-[employer] H[employer]ORY TEACHER Work Phone: [facility] Comment on above: Rash and nonspecific skin eruption (Primary Dx); 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); Current moderate episode of major depressive disorder without prior episode (CMS-HCC); Malignant neoplasm of colon, unspecified part of colon (CMS-HCC) Start: 07-13-2023 End: 07-13-2023 ambulatory [facility] Start: 07-13-2023 Encounter for genera l adult medical examination without abnormal findings [facility] Start: 10-25-2022 End: 10-25-2022 ambulatory Leighton Valente Other [employer] Other Start: 10-25-2022 Telephone encounter Leighton Valente [facility] Start: 10-14-2022 End: 10-14-2022 ambulatory ASHLEY OLVERA Facility:[facility] Start: 09-28-2022 End: 10-03-2022 Evaluation and management of inpatient Leighton Valente Facility:[facility] Start: 09-28-2022 End: 10-03-2022 Evaluation and management of inpatient CLINICAL TECHNICIAN-C Ashley Olvera Work Phone: [facility] Work Phone: Start: 09-27-2022 End: 09-28-2022 ambulatory JACIEL STEVE . Facility: Start: 05-02-2022 End: 05-02-2022 ambulatory ADELE NÚÑEZ . Facility:[facility] Start: 04-13-2022 Patient encounter procedure Storm Russell APRN.RAW HIDE TRIMMER Work Phone: [facility] Start: 04-13-2022 Progress Note Storm GARCIA RN.RAW HIDE TRIMMER Work Phone: [facility] Start: 04-08-2022 Patient encounter procedure Storm Russell APRN.RAW HIDE TRIMMER Work Phone: [facility] Start: 04-08-2022 Progress Note Storm GARCIA RN.RAW HIDE TRIMMER Work Phone: [facility] Start: 04-05-2022 Patient encounter procedure Itri Cedric Fahad Work Phone: [facility] Start: 04-05-2022 Progress Note Itri A Fahad Work Phone: [facility] Start: 03-31-2022 End: 04-04-2022 Evaluation and management of inpatient DR GAB FONSECA . Facility:[facility] Start: 12-13-2021 End: 12-13-[address] BONIFACIO LEMOS . [employer] Other Start: 12-13-2021 Office outpatient vi sit 15 minutes Rylie Galvan [facility] Procedures Date Procedure Procedure Detail Performing Clinician Start: 10-25-2023 Adult depression screening assessment Ashley Olvera FERRY OPERATOR-[employer] H[employer]ORY TEACHER Work Phone: Start: 10-09-2023 Adult depression screening assessment Ashley Olvera FERRY OPERATOR-[employer]CHO[employer] HISTORY TEACHER Work Phone: Start: 09-27-2023 Follow-up visit Follow-up ASHLEY OLVERA Start: 09-27-2023 Adult depression screening assessment Ashley Olvera FERRY OPERATOR-H[employer]CHO[employer] HISTORY TEACHER Work Phone: Start: 10-03-2022 Plain X-ray of left hip CLINICAL TECHNICIAN-C Ashley Olvera Work Phone: Start: 09-28-2022 Plain X-ray of left hip CLINICAL TECHNICIAN-C Ashley Olvera Work Phone: Start: 09-28-2022 Open reduction with internal fixation CLINICAL TECHNICIAN-C Ashley Olvera Work Phone: Start: 09-28-2022 Plain X-ray of left femur CLINICAL TECHNICIAN-C Ashley Olvera Work Phone: Start: 09-28-2022 Plain X-ray of left hip CLINICAL TECHNICIAN-C Ashley Olvera Work Phone: Plan of Treatment Date Care Activity Detail Author Start: 06-14-2030 DTaP,Tdap and Td Vaccines (3 - Td or Tdap) DTaP,Tdap and Td Vaccines (3 - Td or Tdap) [facility] Start: 10-24-2024 Adult BMI Screening Adult BMI Screening [facility] Start: 10-24-2024 Depression Screening Depression Screening [facility] Start: 10-24-2024 Fall Risk Screening Fall Risk Screening [facility] Start: 10-24-2024 Tobacco Screening Tobacco Screening [facility] Start: 10-08-2024 Adult BMI Screening Adult BMI Screening [facility] Start: 10-08-2024 Depression Screening Depression Screening [facility] Start: 10-08-2024 Fall Risk Screening Fall Risk Screening [facility] Start: 10-08-2024 Tobacco Screening Tobacco Screening [facility] Start: 09-27-2024 Tobacco Screening Tobacco Screening [facility] Start: 09-26-2024 Adult BMI Screening Adult BMI Screening [facility] Start: 09-26-2024 Depression Screening Depression Screening [facility] Start: 09-26-2024 Fall Risk Screening Fall Risk Screening [facility] Start: 07-13-2024 Medicare Annual Wellness Visit Medicare Annual Wellness Visit [facility] Start: 03-24-2024 Influenza vaccination Influenza Vaccine [facility] Start: 03-20-2024 End: 03-20-2024 Patient encounter procedure 03/20/2024 11:20 AM EDT Office Visit [facility] [address] [place] [address] Ashley Olvera, FERRY OPERATOR-HIGH SCHOOL HISTORY TEACHER [address] [place] [address] [facility] Start: 01-09-2024 End: 01-09-2024 Patient encounter procedure 01/09/2024 10:40 AM EDT Office Visit [facility] [address] [place] [address] Ashley Olvera, FERRY OPERATOR-HIGH SCHOOL HISTORY TEACHER [address] [place] [address] [facility] Start: 11-01-2023 Adult BMI Follow Up Plan Adult BMI Follow Up Plan [facility] Start: 03-24-2023 COVID-19 Vaccine ( season) COVID-19 Vaccine ( season) [facility] Start: 10-03-2022 [facility] Start: 09-28-2022 [facility] Start: 09-28-2022 Consultation [facility] Start: 09-28-2022 Hospital admission [facility] Start: 03-24-2022 Influenza vaccination INFLUENZA (#1) [facility] Start: 07-24-2021 ADVANCE DIRECTIVE DISCUSSION ADVANCE DIRECTIVE DISCUSSION [facility] Start: 04-09-2019 DIABETES SCREEN DIABETES SCREEN [facility] Start: 2000 BONE DENSITY BONE DENSITY [facility] Start: 2000 PNEUMOCOCCAL: 65+ (1 - PCV) PNEUMOCOCCAL: 65+ (1 - PCV) [facility] Start: 1985 SHINGRIX VACCINE (1 of 2) SHINGRIX VACCINE (1 of 2) [facility] Start: 1954 Administration of varicella zoster vaccine Zoster (Shingles) Vaccine (1 of 2) [facility] Start: 1954 Urine microalbumin profile DTAP,TDAP,TD (1 - Tdap) [facility] Start: 03-10-1936 COVID-19 VACCINE (#1) COVID-19 VACCINE (#1) [facility] 25-hydroxyvitamin D2 [Mass/volume] in Serum or Plasma [facility] 25-hydroxyvitamin D3 [Mass/volume] in Serum or Plasma [facility] 25-Hydroxyvitamin D3+25-Hydroxyvitamin D2 [Mass/volume] in Serum or Plasma [facility] Patient referral [facility] Work Phone: XR Hip - left 2 Views [facility] Immunizations Immunization Date Immunization Notes Care Provider Gustabo roca 04-11-2023 Influenza Vaccine, Quadrivalent, Adjuvanted Ashley Olvera FERRY OPERATOR-HIGH [employer]CHO[employer] HISTORY TEACHER Work Phone: [facility] 04-11-2023 influenza virus vacc ine, unspecified formulation Ashley Olvera FERRY OPERATOR-HIGH [employer]CHO[employer] HISTORY TEACHER Work Phone: [facility] 05-09-2022 influenza, seasonal, injectable Ashley Olvera FERRY OPERATOR-HIGH SCHOOL HISTORY TEACHER Work Phone: [facility] 05-09-2022 pneumococcal polysaccharide vaccine, 23 valent Ashley Olvera FERRY OPERATOR-HIGH [employer]CHOOL HISTORY TEACHER Work Phone: [facility] 04-21-2022 Influenza Vaccine, Quadrivalent, Adjuvanted Ashley Olvera FERRY OPERATOR-HIGH SCHOOL HISTORY TEACHER Work Phone: [facility] 12-06-2021 COVID-19, mRNA, LNP- S, PF, 30mcg/0.3mL Dose Ashley Olvera FERRY OPERATOR-HIGH [employer]CHO[employer] HISTORY TEACHER Work Phone: [facility] 11-01-2021 COVID-19, mRNA, LNP- S, PF, 30mcg/0.3mL Dose Ashley Olvera FERRY OPERATOR-HIGH [employer]CHO[employer] HISTORY TEACHER Work Phone: [facility] 05-17-2021 Influenza, High-dose , Quadrivalent Ashley Olvera FERRY OPERATOR-HIGH [employer]CHO[employer] HISTORY TEACHER Work Phone: [facility] 06-14-2020 diphtheria, tetanus toxoids and pertussis vaccine Ashley Olvera FERRY OPERATOR-HIGH [employer]CHOOL HISTORY TEACHER Work Phone: [facility] 05-12-2020 Influenza, High-dose , Quadrivalent Ashley Olvera FERRY OPERATOR-HIGH [employer]CHO[employer] HISTORY TEACHER Work Phone: [facility] 05-07-2019 influenza, high dose seasonal, preservative-free Ashley Olvera FERRY OPERATOR-HIGH [employer]CHO[employer] HISTORY TEACHER Work Phone: [facility] 04-17-2019 pneumococcal polysaccharide vaccine, 23 valent Ashley Olvera FERRY OPERATOR-HIGH [employer]CHO[employer] HISTORY TEACHER Work Phone: [facility] 05-07-2018 influenza, high dose seasonal, preservative-free Ashley Olvera FERRY OPERATOR-HIGH SCHOOL HISTORY TEACHER Work Phone: [facility] 05-09-2017 influenza, injectabl e, quadrivalent, preservative free Ashley Olvera FERRY OPERATOR-HIGH [employer]CHOOL HISTORY TEACHER Work Phone: [facility] 01-05-2017 pneumococcal conjuga te vaccine, 13 valent Ashley Olvera FERRY OPERATOR-HIGH [employer]CHOOL HISTORY TEACHER Work Phone: [facility] 01-05-2017 tetanus toxoid, redu cristino diphtheria toxoid, and acellular pertussis vaccine, adsorbed Ashley Olvera FERRY OPERATOR-HIGH [employer]CHOOL HISTORY TEACHER Work Phone: [facility] 05-22-2015 influenza, injectabl e, quadrivalent, preservative free Ashley Olevra FERRY OPERATOR-HIGH SCHOOL HISTORY TEACHER Work Phone: [facility] 04-21-2014 influenza, seasonal, injectable, preservative free Ashley Olvera FERRY OPERATOR-HIGH [employer]CHO[employer] HISTORY TEACHER Work Phone: [facility] 04-17-2013 influenza virus vacc ine, whole virus Ashley Olvera FERRY OPERATOR-HIGH [employer]CHO[employer] HISTORY TEACHER Work Phone: [facility] 06-28-2012 pneumococcal vaccine , unspecified formulation Ashley Olvera FERRY OPERATOR-HIGH [employer]CHOOL HISTORY TEACHER Work Phone: [facility] 04-24-2012 influenza virus vacc ine, whole virus Ashley Olvera FERRY OPERATOR-HIGH SCHOOL HISTORY TEACHER Work Phone: [facility] 04-20-2011 influenza virus vacc ine, whole virus Ashley Olvera FERRY OPERATOR-HIGH [employer]CHOOL HISTORY TEACHER Work Phone: [facility] 05-05-2010 influenza virus vacc ine, whole virus Ashley Olvera FERRY OPERATOR-HIGH [employer]CHOOL HISTORY TEACHER Work Phone: [facility] 04-29-2009 influenza virus vacc ine, whole virus Ashley Olvera FERRY OPERATOR-HIGH [employer]CHOOL HISTORY TEACHER Work Phone: [facility] 05-09-2007 influenza virus vacc ine, whole virus Ashley Olvera FERRY OPERATOR-HIGH SCHOOL HISTORY TEACHER Work Phone: [facility] Payers Date Payer Category Payer Medicare [id number] 2022 Self-pay 2016 Medicare [id number] 1959 Medicare [id number] 2.1 [id number] 1959 Private Health Insurance [id number] 1935 Unknown [id number] 2.16.84 [id number] 1935 Unknown [id number] 2.16.84 [id number] 1935 Unknown [id number] 2.16.84 [id number] 1935 Unknown [id number] 2.16.84 [id number] 1935 Unknown [id number] 2.16.84 [id number] 1935 Unknown [id number] 2.16.84 [id number] 1935 Unknown [id number] 2.16.8 [id number] 1935 Unknown [id number] 2.16.8 [id number] 1935 Unknown [id number] 2.16.8 [id number] 1935 Unknown [id number] 2.16.8 [id number] 1935 Unknown [id number] 2.16.84 [id number] Unknown [id number] 2.16.8 [id number] Social History Date Type Detail Facility Start: 08-04-2020 End: 09-28-2023 Sex Assigned At [facility] Start: 05-28-2014 End: 09-21-2022 Tobacco smoking status NHIS Never smoked tobacco [facility] Start: 10-25-2016 End: 10-25-2023 Alcohol intake Current drinker of alcohol (finding) [facility] Start: 1935 Sex Assigned At Not on file [facility] Start: 09-29-2022 Tobacco smoking stat us GAIS Unknown if ever smoked [facility] Start: 1935 Sex Assigned At Female F [facility] Start: 09-21-2022 Tobacco use and exposure Smokeless tobacco non-user [facility] Start: 08-04-2020 End: 09-28-2023 History of Social function [facility] Adolescent depressio n screening assessment 0 [facility] Goals Date Patient Goal Desired Activity /State Functional Status Date Assessment Result Facility 09-28-2022 Functional status Patient Not at Baseline [facility] Work Phone: Mental Status Date Assessment Result Facility 09-28-2022 Cognitive function Cognitive Sta tus Patient Not at Baseline [facility] Work Phone: Clinical Notes 12-13-2021 to 10-25-2023 Ashley Olvera APRN-[facility] - 10/25/2023 11:30 AM EDTTelephone Encounter - Justus Gastelum, [facility] - 10/09/2023 1:17 PM EDTTelephone Encounter - Justus Gastelum [facility] - 10/09/2023 1:17 PM EDT Note Date & Type Note Facility 10-25-2023 History of Present illness Narrative Images from the original note were not included. [address] [facility] [address] SUBJECTIVE: Patient ID: Annamaria Garcia [...] History: Diagnosis Date B12 deficiency Colonic cancer ([facility]-H[facility]) s/p robotic resection. 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 Resides at assisted living in [place]. ALL QUESTIONS ANSWERED Total time spent was 25 minutes: Preparing to see the patient (e.g., review of tests) Obtaining and/or reviewing separately obtained history Performing a medically appropriate examination and/or evaluation Counseling and educating the patient/family/caregiver Ordering medications, tests, or procedures Follow-up: 4 months GAGE Guerrero 10/25/23 [id number] documented in this encounter [facility] 10-09-[address] called and would like the recent Scripts sent to [facility] instead of the other pharmacy that was listed. [phone] documented in this encounter [facility] 10-09-2023 Telephone encounter Note [address] called and would like the recent Scripts sent to [facility] instead of the other pharmacy that was listed. [phone] [facility] 10-09-2023 History of Present illness Narrative Images from the original note were not included. [address] [facility] [address] Patient ID: Annamaria Garcia is a 88 y.o. female. Transition of Care Diagnosis on Discharge: Hypertensive urgency, Left lower lobe penumonia Name of Discharging Facility: [facility] Date of Facility Discharge: October 02, 2023 Date of Interactive Contact and Name of Mmd Unit Teacher: Medication Reconciliation Completed: Yes Medication Reconciliation Questions/Concerns: [...] and Other Services Utilized/Needed by the Patient: [facility] Home care / PT *Additional Questions/Concerns Requiring PCP Follow-Up: Pain control for arthritis SUBJECTIVE: Patient ID: Annamaria Garcia is a 88 y.o. female. Chief Complaint Patient presents with Hypertension [facility] follow up 09/29-10/01 Hypertension This is [...] Guerrero 10/09/23 [id number] documented in this encounter [facility] 09-27-2023 History of Present illness Narrative Images from the original note were not included. [address] [facility] [address] SUBJECTIVE: Patient ID: Annamaria [...] but returned worse. Family took her to [facility] ER last week for evaluation. Ordered another [...] History: Diagnosis Date B12 deficiency Colonic cancer ([facility]) s/p robotic resection. 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 [...] skin eruption - [facility] Future Mild late onset Alzheimer's dementia with [...] months Sooner if needed GAGE Guerrero 09/28/23 1354 documented in this encounter [facility] 10-02-2022 Progress note Note Date/Time October 02, 2022 12:44pm [facility] [address] [place] [address] Hospitalist Progress Note Signed Patient: Annamaria Garcia MR#: [id number] : 1935 Acct:[id number] Age/Sex: 87 / F Adm Date: 3 Loc: 4N Room: [address] [place] [address] Type: ADM IN Attending Dr: Gordon You [...] formulated the plan of care and confirmed HIGH SCHOOL HISTORY TEACHER's written note. Documented By: Mimi Artis APRN 10/02/22 1241 Signed By: <Electronically signed by KHURRAM Artis> 10/02/22 1244 <Electronically signed by Gordon You MD> 10/02/22 2885 [facility] Work Phone: 1(516) 595-169103-12-2023 Progress note Author Gordon You [facility] October 02, 2022 9:16pm Note Date/Time October 01, 2022 12: 12pm [facility] [address] [place] [address] Hospitalist Progress Note Signed Patient: Annamaria Garcia MR#: [id number] : 1935 Acct:[id number] Age/Sex: 87 / F Adm Date: 3 Loc: 4N Room: [address] [place] [address] Type: ADM IN Attending Dr: Gordon You [...] the plan of care and confirmed the HIGH SCHOOL HISTORY TEACHER's written note. Documented By: Mimi Artis APRN 10/01/22 1207 Signed By: <Electronically signed by KHURRAM Artis> 10/01/22 1213 <Electronically signed by Gordon You MD> 10/02/22 [facility] Work Phone: 1(517) 645-615303-12-2023 Progress note Author Leighton Valente [facility] October 02, 2022 12:49pm Note Date/Time October 02, 2022 12: 43pm [facility] [address] [place] [address] Orthopedic Progress Note Signed Patient: Annamaria Garcia MR#: [id number] : 1935 Acct:[id number] Age/Sex: 87 / F Adm Date: 3 Loc: 4N Room: [address] [place] [address] Type: ADM IN Attending Dr: Gordon You [...] % (Auto) 72.4 Lymph % (Auto) 12.7 [place] % (Auto) 13.6 Eos % (Auto) 1.0 Baso % (Auto) 0.3 Nucleat RBC Rel Count 0.0 Neut # (Auto) 5.3 Lymph # (Auto) 0.9 L [place] # (Auto) 1.0 H Eos # (Auto) [...] signed by MD Leighton Valente> 10/02/22 1249 [facility] Work Phone: 1(187) 341-740303-10-2023 Progress note Author Yani Cyr [facility] September 30, 2022 4:42pm Note Date/Time September 30, 2022 12: 30pm [facility] [address] [place] [address] Hospitalist Progress Note Signed Patient: Annamaria Garcia MR#: [id number] : 1935 Acct:[id number] Age/Sex: 87 / F Adm Date: 3 Loc: 4N Room: 7Y3115-1 Type: ADM IN Attending Dr: Yani Cyr [...] <Electronically signed by Yani Cyr MD> 09/30/22 1646 [facility] Work Phone: 1(245) 793-348803-09-2023 Progress note Author Leighton Valente [facility] September 29, 2022 12:30pm Note Date/Time September 29, 2022 7:53 am [facility] [address] [place] [address] Orthopedic Progress Note Signed Patient: Annamaria Garcia MR#: [id number] : 1935 Acct:[id number] Age/Sex: 87 / F Adm Date: 3 Loc: 4N Room: 3M9556-2 Type: ADM IN Attending Dr: Adama Kothari [...] signed by MD Leighton Valente> 09/29/22 1230 [facility] Work Phone: 1(634) 734-291203-09-2023 Consult note Author Leighton Valente [facility] September 29, 2022 7:45am Note Date/Time September 29, 2022 7:39 am [facility] [address] [place] [address] Orthopedic Consult Note Signed Patient: Annamaria Garcia MR#: [id number] : 1935 Acct:[id number] Age/Sex: 87 / F Adm Date: 3 Loc: 4N Room: 3H7785-9 Type: ADM IN Attending Dr: Adama Kothari MD Copies to: MD Leighton Paul MD Valerie J Castillo CLINICAL TECHNICIAN-C~ History of Present Illness HPI Consult date: 09/29/2022 Requesting provider: Adama Kothari MD History of present illness: Patient is an 87-year-old female who sustained a fall with complaints of left hip pain.. [facility] at [place] [facility]. [facility] [...] % (Auto) 87.9, Lymph % (Auto) 4.7, [place] % (Auto) 7.4, Eos % (Auto)0.0, Baso % (Auto) 0.0, Nucleat RBC Rel Count 0.1, Neut # (Auto) 10.7 H, Lymph #(Auto) 0.6 L, [place] # (Auto) 0.9 H, Eos # (Auto) [...] <Electronically signed by MD Leighton Valente> 09/29/22 7945 [facility] Work Phone: 1(212) 109-127703-08-2023 History and physical note Author Juliet Green [facility] September 28, 2022 9:41pm Note Date/Time September 28, 2022 4:41 am [facility] [address] [place] [address] Hospitalist H&P Signed Patient: Annamaria Garcia MR#: [id number] : 1935 Acct:[id number] Age/Sex: 87 / F Adm Date: 3 Loc: 4N Room: [address] [place] [address] Type: ADM IN Attending Dr: Adama Kothari MD Copies to: MD Juliet Paul MD Valerie J Castillo CLINICAL TECHNICIAN-C~ HPI DATE OF EXAMINATION: 09/28/22 CHIEF COMPLAINT: hip fx HISTORY OF PRESENT ILLNESS: 87 years old female sustained what it seems mechanical fall, without any prodromal symptoms at home, where she lives alone, and presented to [place] emergency room where she was diagnosed with [...] Previous records in the computer system reviewed [facility] Vaccinated for COVID-19?: Yes Surgical History (Updated [...] <Electronically signed by Juliet Green MD> 09/28/22 8525 [facility] Work Phone: 1(210) 773-409703-08-2023 Progress note Author Adama Saniya [facility] September 28, 2022 7:19pm Note Date/Time September 28, 2022 10:0 4am [facility] [address] [place] [address] Hospitalist Progress Note Signed Patient: Annamaria Garcia MR#: [id number] : 1935 Acct:[id number] Age/Sex: 87 / F Adm Date: 3 Loc: 4N Room: [address] [place] [address] Type: ADM IN Attending Dr: Adama Kothari [...] Meq Kcl IV 09/28/23 05:29 75 mls/hr .[id number] XIAO Administration Lactated Ringer's 1,000 mls @ [...] signed by Adama Kothari MD> 09/28/22 1919 [facility] Work Phone: 1(244) [phone] Hospital Discharge instructions Additional Instructions SNF Physician: [...] Mepilex border foam to Coccyx for protection. [facility] Work Phone: 1(365) 597-316209-26-2022 NoteHNO ID: [id number] Author: Storm Russell APRN.RAW HIDE TRIMMER Service: ? Author Type: Nurse Specialist Type: Progress Notes Filed: 04/21/2022 7:19 AM Note Text: [facility] NOTE NAME: STANISLAW GARCIA NO.: [id number] DATE OF SERVICE: 04/18/2022 [facility] DATE OF : 1935 REASON FOR VISIT: The patient is a resident of [facility]. This is a skilled visit [...] no supplement. DICTATED BY: SARAH Bliss/Bernice JOB# [id number] cc:[facility]09-21-2022 NoteHNO ID: [id number] Author: Storm Russell APRN.RAW HIDE TRIMMER Service: ? Author Type: Nurse Specialist Type: Progress Notes Filed: 04/14/2022 3:59 PM Note Text: [facility] NOTE NAME: ANNAMARIA GARCIACHELI NO.: [id number] DATE OF SERVICE: 04/13/2022 [facility] DATE OF : 1935 REASON FOR VISIT: The patient is a resident of [facility]. This is a skilled visit [...] supportive care. DICTATED BY: SARAH Bliss/Bernice JOB# [id number] cc:[facility]09-21-2022 History of Present illness Narrative* Storm Russell APRN.RAW HIDE TRIMMER - 04/13/2022 12:00 AM EDT [facility] NOTE NAME: STANISLAW GARCIA NO.: [id number] DATE OF SERVICE: 04/13/2022 [facility] DATE OF : 1935 REASON FOR VISIT: The patient is a resident of [facility]. This is a skilled visit [...] care. DICTATED BY: SARAH Bliss/Bernice Garcia:04/13/2022 JOB# [id number] cc:[facility] documented in [facility] encounterOhio[facility]09-16-2022 NoteHNO ID: [id number] Author: Storm Russell APRN.RAW HIDE TRIMMER Service: ? Author Type: Nurse Specialist Type: Progress Notes Filed: 04/11/2022 7:39 PM Note Text: [facility] NOTE NAME: STANISLAW GARCIA NO.: [id number] DATE OF SERVICE: 04/08/2022 [facility] DATE OF : 1935 REASON FOR VISIT: The patient is a resident of [facility]. This is a skilled visit [...] normal range. DICTATED BY: SARAH Bliss JOB# [id number] cc:[facility]09-16-2022 History of Present illness Narrative* Storm Russell APRN.RAW HIDE TRIMMER - 04/08/2022 12:00 AM EDT [facility] NOTE NAME: STANISLAW GARCIA NO.: [id number] DATE OF SERVICE: 04/08/2022 [facility] DATE OF : 1935 REASON FOR VISIT: The patient is a resident of [facility]. This is a skilled visit [...] normal range. DICTATED BY: SARAH Bliss/Bernice JOB# [id number] cc:[facility] documented in this encounterOhiohealth [facility] Hospital09-13-2022 NoteHNO ID: [id number] Author: Debra Vásquez Service: ? Author Type: Physician Type: Progress Notes Filed: 04/06/2022 5:49 PM Note Text: [facility] NOTE NAME: STANISLAW GARCIA NO.: [id number] DATE OF SERVICE: 04/05/2022 [facility] DATE OF : 1935 NEW PATIENT HISTORY AND PHYSICAL HISTORY OF PRESENT ILLNESS: Patient is an 86-year-old female, who is admitted to us from [facility] with a diagnoses of acute nondisplaced [...] she knew that she was somewhere is [place]. She is aware of having had a [...] hospital. DICTATED BY: MD ROCHELLE Silverio/Bernice JOB# [id number] cc:[facility]09-13-2022 History of Present illness Narrative* Debra Vásquez - 04/05/2022 12:00 AM EDT [facility] NOTE NAME: RADHA ANNAMARIACHELI NO.: [id number] DATE OF SERVICE: 04/05/2022 [facility] DATE OF : 1935 NEW [...] she knew that she was somewhere is [place]. She is aware of having had a [...] hospital. DICTATED BY: MD ROCHELLE Silverio/Bernice JOB# [id number] cc:[facility] documented in this encounterOhiohealth [facility] Hospital05-23-2022 Evaluation note* Encounter Date Diagnosis Assessment [...] above plan, states she will go to [facility] for further evaluation. Patient states the [...] of head, initial encounter (ICD-10 - S09.90XA) [employer] Other Evaluation note* Diagnosis Onset Date Resolution Status Fall acute Hip fracture, left acute [facility] Work Phone: Evaluation noteNo InformationNort Hostmonster Other Evaluation note* Diagnosis Rash and nonspecific skin eruption- Primary Rash and other nonspecific skin eruption 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 ([facility]) Malignant neoplasm of colon, unspecified part of colon ([facility]) [facility] Diagnosis Pneumonia of left lower lobe due to infectious organism- Primary Benign essential HTN Arthritis, multiple joint involvement Unspecified arthropathy, multiple sites Rash and nonspecific skin eruption Rash and other nonspecific skin eruption [facility] Diagnosis Arthritis, multiple joint involvement Unspecified arthropathy, multiple sites documented [facility] Diagnosis Arthritis, multiple joint involvement- Primary Unspecified arthropathy, multiple sites Benign essential HTN documented [facility] Diagnosis Arthritis, multiple joint involvement- Primary Unspecified arthropathy, multiple sites History of healed osteoporosis fracture Decreased mobility and endurance [facility] N[facility]ative - Reported* Type Description Date Surgical History CATARACT REMOVAL Surgical History CHOLECYSTECTOMY [employer] Other Instructions* Attachments The following attachments cannot be sent through Care Everywhere. * Skin Rash ([place]izen [place]) [facility] SystemInst[facility]* Attachments The following attachments cannot be sent through Care Everywhere. * Joint Pain (Citizen [place]) documented in this encounterProOhio [facility] SystemInstructionsNot on file documented in this encounterProOhio State East Hospital SystemInstructionsNot on file documented in this encounterMer[facility] SystemInstructions* Attachments The following attachments cannot be sent through Care Everywhere. * Chronic pain (Citizen [place]) documented in [facility] encounterMer[facility] SystemReason for referral (narrative)* Consultation (Routine) - Pending Review Specialty Diagnoses / Procedures Referred By Christiane layton Referred To Contact Dermatology Diagnoses Rash and nonspecific skin eruption Ashley Olvera FERRY OPERATOR-HIGH SCHOOL HISTORY TEACHER [address] [place] [address] Shawanda Cintron MD [address], [address] [place] [address] Referral ID Status Reason Start Date Expiration Date Visits Requested Visits Authorized [id number] Pending Review Specialty Services Required 09/27/2023 09/26/2024 1 1 [facility] [place] Advance Directives No Advanced Directives Records FoundDocuments on File Type Date Recorded 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 Advance Directive(s) 04/04/2016 12:27 PM Advance Directive Response Recorded Date/ Time Advance Directives No September 28 2:49am Documents on File Type Date Recorded 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 Packer Expl anation Advance Directive 04/11/2023 3:23 PM POA Advance Directive 03/08/2023 11:14 AM guar dianship 03/08/2023 Documents on File Type Date Recorded 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 Packer Expl anation Advance Directive 04/11/2023 3:23 PM [...] Diagnoses Arthritis, multiple joint involvement Ashley Olvera FERRY OPERATOR-HIGH SCHOOL HISTORY TEACHER [address] [place] [address] Referral ID Status Reason Start Date Expiration Date V isits Requested Visits Authorized [id number] Pending Review 1 1 Additional Source Comments [...] or prosecute any alcohol or drug abuse patient.[facility] Doctors HospitalIn the event this information is protected by the Federal Confidentiality of Alcohol and Drug Abuse Patient Records regulations: The Federal rules restrict any use of the information to criminally investigate or prosecute any alcohol or drug abuse patient.[facility] Doctors HospitalIn the event this information is protected by the Federal Confidentiality of Alcohol and Drug Abuse Patient Records regulations: The Federal rules restrict any use of the information to criminally investigate or prosecute any alcohol or drug abuse patient.[facility] Care Teams (unrecognized sec tion and content) Livestock Handler Relationship Specialty Start Date End Date Richard He PCP - General Family Practice 05/08/14 Livestock Handler Relationship Specialty Start Date End Date Richard He PCP - General Family Medicine 05/08/14 Team Status: Active Member Role Status Dates REILLY GuerreroC Primary Care Provider Active Team Status: Inactive Member Role Status Dates Ashley Olvera , CLINICAL TECHNICIAN-C Primary Care Provider Active Juliet Green MD Admit Provider Active Leighton Valente MD Other Provider Active Galen Escobar MD Other Provider Active Lilian Van MD Other Provider Active Silvestre Saunders DO Other Provider Active Bulmaro Moses II, MD Other Provider Active Yani Cyr MD Attending Provider Active Livestock Handler Relationship Specialty Start Date End Date Ashley Olvera [facility]ATOR-[facility] [address] [place] [address] PCP - General Family Medicine 07/23/19 Livestock Handler Relationship Specialty Start Date End Date [facility]ver[facility] [address] [place] [address] PCP - General Family Medicine 07/23/19 Livestock Handler Relationship Specialty Start Date End Date Ashley [facility]ver[facility] [address] [place] [address] PCP - General Family Medicine 07/23/19 Livestock Handler Relationship Specialty Start Date End Date Ashley [facility]ver[facility] [address] [place] [address] PCP - General Family Medicine 07/23/19 INFORMATION SOURCE (unrecogn ized section and content) DATE CREATED AUTHOR 04/25/2022 [facility] DATE CREATED AUTHOR AUTHOR'S ORGANIZ ATION 10/17/2022 [facility] DATE CREATED AUTHOR AUTHOR'S ORGANIZ ATION 10/17/2022 [facility] DATE CREATED AUTHOR AUTHOR'S ORGANIZ ATION 11/08/2023 [facility] DATE CREATED AUTHOR AUTHOR'S ORGANIZ ATION 11/22/2023 [...] BE BASED ON THE PRIMARY CLINICAL RECORDS. [facility]. provides no warranty or guarantee of the accuracy or completeness of information in this document.
[2023-12-27 09:39] VITALS: BP 180/92; PULSE 97; O2SAT 98
== END 2023-12-27 09:15 | disposition home or self-care (01) ==
PROVIDERS: Emergency Provider Emergency Medicine; PCP Nurse Practitioner
DX: Z04.3 Encounter for examination and observation following other accident (principal); F03.90 Unspecified dementia, unspecified severity, without behavioral disturbance, psychotic disturbance, mood disturbance, and anxiety
CPT/HCPCS: 73502; 73562; 99284

== ENCOUNTER 2024-08-30 14:10 | Emergency (ER) | payer MEDICARE, SELFPAY ==
[2024-08-30 14:16] VITALS: BP 146/80; PULSE 86; TEMP 36.8; O2SAT 96; BMI 18.0
[2024-08-30 15:47] LABS: Basophils Percent Auto 0.2 % (0.2-2.0); Eosinophils Percent Auto 0.2 % (0.9-7.0); Hematocrit 42.4 % (36.0-48.0); Immature Granulocytes Abs Auto 0.02 10^3/uL (0.00-0.03); Immature Granulocytes Pct Auto 0.2 % (0.0-0.5); Lymphocytes Absolute Auto 1.7 10^3/uL (1.2-3.8); Lymphocytes Percent Auto 14.7 % (20.5-60.0); Mean Corpuscular Hemoglobin 30.4 pg (26.7-34.0); Mean Platelet Volume 9.8 fL (9.5-13.5); Monocytes Absolute Auto 1.1 10^3/uL (0.3-0.8); Monocytes Percent Auto 9.7 % (1.7-12.0); Neutrophils Absolute Auto 8.4 10^3/uL (1.4-6.5); Platelet Count 351 10^3/uL (150-450); Red Blood Count 4.61 10^6/uL (4.20-5.40); Red Cell Distribution Width 12.9 % (11.0-15.0); White Blood Count 11.2 10^3/uL (4.0-11.0)
[2024-08-30 16:01] LABS: Anion Gap 14.5; BUN Creatinine Ratio 48.7; Calcium 9.4 mg/dL (8.5-10.1); Carbon Dioxide 25.3 mmol/L (21.0-32.0); Chloride 103 mmol/L (98-107); Estimated GFR (African America >60 (>=60 mL/min/1.73m^2); Estimated GFR (Non-African Ame >60 (>=60 mL/min/1.73m^2); Glucose 100 mg/dL (74-106); Potassium 3.8 mmol/L (3.5-5.1); Sodium 139 mmol/L (136-145)
[2024-08-30] MEDS: ONDANSETRON PF 4 MG/2 ML VIAL IV (17:04)
[2024-08-30] MEDS: 0.9 % SODIUM CHLORIDE 1,000 ML 1000 ML IV (17:04)
[2024-08-30 18:11] VITALS: BP 112/75; PULSE 81; O2SAT 98
--- NOTE | 2024-08-30 19:27 | ED_ITS ---
HPI HPI - General Adult General Chief complaint: Nausea/Vomiting/Diarrhea Stated complaint: DIARRHEA X'S 1 WEEK Time Seen by Provider: 08/30/24 15:04 History of Present Illness HPI narrative: 88-year-old female to the emergency department with chief complaint of nausea vomiting diarrhea. Symptoms came on a week ago. She has had some mild diarrhea daily after the first 48 hours. She has had normal intake otherwise. Her facility sent her out of concern for dehydration. She is accompanied by her nephew who is her guardian. They have no concerns at this time. Patient does not provide any history. Related Data Home Medications ?Medication ?Instructions ?Recorded ?Confirmed acetaminophen 325 mg tablet 325 mg PO Q6H PRN fever or pain 04/10/23 08/30/24 (Tylenol) aspirin 325 mg capsule 325 mg PO DAILY 04/10/23 08/30/24 calcium 600 mg (as carbonate)-vit 1 tab PO DAILY 04/10/23 08/30/24 D3 20 mcg (800 unit) chewable tablet (Caltrate plus D) cholecalciferol (vitamin D3) 50 50 mcg PO DAILY 04/10/23 08/30/24 mcg (2,000 unit) capsule ferrous sulfate 325 mg (65 mg 325 mg PO DAILY 04/10/23 08/30/24 iron) tablet,delayed release sertraline 25 mg tablet 25 mg PO Q24H 04/10/23 08/30/24 diphenhydramine HCl 25 mg capsule 25 mg PO Q4H PRN itching 09/30/23 08/30/24 (Allergy (diphenhydramine)) amlodipine 5 mg tablet 10 mg PO QD 08/30/24 08/30/24 meloxicam 7.5 mg tablet 7.5 mg PO DAILY 08/30/24 08/30/24 Previous Rx's ?Medication ?Instructions ?Recorded clobetasol 0.05 % topical cream 1 applic topical DAILY 2 weeks #60 09/22/23 grams amoxicillin 875 mg-potassium 1 tab PO BID 7 days #14 tabs 10/02/23 clavulanate 125 mg tablet lidocaine 5 % topical patch 1 patch topical DAILY #30 ea 10/02/23 (Lidoderm) tramadol 50 mg tablet 50 mg PO Q8H PRN pain #20 tabs 10/02/23 Allergies Allergy/AdvReac Type Severity Reaction Status Date / Time No Known Drug Allergies Allergy Verified 12/06/23 19:53 Opioid HPI Opioid Management Most Recent Opioid Data: Last Pain Scale 7 10/02/23 10:38 10/02/23 Last Pain Intensity 6 10/02/23 10:38 10/02/23 Last ORT Total Score 0 10/01/23 03:53 10/01/23 Last ORT Risk Category Low Risk 10/01/23 03:53 10/01/23 Review of Systems ROS Status of ROS 10 or more systems reviewed and unremark able except as noted in history and below [facility] Medical History (Updated 08/30/24 @ 17:12 by Patrice Cortes MD) Acute hyponatremia ?E87.1 - Hypo-osmolality and hyponatremia (ICD-10) Acute back pain ?M54.9 - Dorsalgia, unspecified (ICD-10) Keratitis ?H16.9 - Unspecified keratitis (ICD-10) Rash and nonspecific skin eruption ?R21 - Rash and other nonspecific skin eruption (ICD-10) Ankle sprain and strain ?S93.409A - Sprain of unspecified ligament of unspecified ankle, initial encounter (ICD-10) ?S96.919A - Strain of unspecified muscle and tendon at ankle and foot level, unspecified foot, initial encounter (ICD-10) Acute anterior epistaxis ?R04.0 - Epistaxis (ICD-10) Chronic mastoiditis, 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 - Chronic mastoiditis, right ear (ICD-10) Bilateral fracture of pubic rami with routine healing ?S32.591D - Other specified fracture of right pubis, subsequent encounter for fracture with routine healing (ICD-10) ?S32.592D - Other specified fracture of left pubis, subsequent encounter for fracture with routine healing (ICD-10) Pubic bone fracture ?S32.509A - Unspecified fracture of unspecified pubis, initial encounter for closed fracture (ICD-10) Hip fracture, intertrochanteric ?S72.143A - Displaced intertrochanteric fracture of unspecified femur, initial encounter for closed fracture (ICD-10) H/O fracture of hip ?Z87.81 - Personal history of (healed) traumatic fracture (ICD-10) Closed sacral fracture ?S32.10XA - Unspecified fracture of sacrum, initial encounter for closed fracture (ICD-10) Dementia ?F03.90 - Unspecified dementia, unspecified severity, without behavioral disturbance, psychotic disturbance, mood disturbance, and anxiety (ICD-10) Osteoporosis ?M81.0 - Age-related osteoporosis without current pathological fracture (ICD- 10) Social History (Updated 10/01/23 @ 03:49 by Caity Arteaga RN) Within the past year, how often did you have a drink containing alcohol: never Score interpretation: A score less than 3 is consistent with normal alcohol consumption. Smoking status: Former smoker Non-prescribed substance use: denies use Gender Identity: female Exam Narrative Exam Narrative: VITALS: I have reviewed the triage vital signs. GENERAL: Elderly female in no distress NEURO: Alert and oriented. Moves all extremities. Face is symmetric and expressive. EYES: PERRL. No scleral icterus or conjunctival injection. No discharge. HENT: Normocephalic, atraumatic. Hearing is grossly intact. Nares grossly patent and without discharge. Mucous membranes moist. NECK: No JVD. Patient moves neck without restriction. CARDIO: Rhythm regular. Normal rate. No murmur, rub, or gallop. Pulses equal bilaterally in the upper and lower extremity. No lower extremity edema. PULM: Lungs clear to auscultation in all mercado. No wheezes, rales, or rhonchi. No conversational dyspnea. No splinting, stridor, or accessory muscle use. GI/: Abdomen is soft and non-tender. Normoactive bowel sounds. EXTREMITIES: Symmetric muscle bulk. No joint swelling. No clubbing, cyanosis, or deformity. SKIN: Warm and dry. Normal turgor. No rash or lesions appreciated. PSYCH: Mood, affect, and interaction is appropriate to the setting. Constitutional Vital Signs, click to edit/add: Last Vital Signs Temp 98.2 F 08/30/24 14:16 Pulse 81 08/30/24 18:11 Resp 18 08/30/24 18:11 BP 112/75 08/30/24 18:11 Pulse Ox 98 08/30/24 18:11 O2 Del Method Room Air 08/30/24 18:11 Course Vital Signs Vital signs: Vital Signs Temperature 98.2 F 08/30/24 14:16 Pulse Rate 86 08/30/24 14:16 Respiratory Rate 18 08/30/24 14:16 Blood Pressure 146/80 H 08/30/24 14:16 Pulse Oximetry 96 08/30/24 14:16 Oxygen Delivery Method Room Air 08/30/24 14:16 Temperature 98.2 F 08/30/24 14:16 Pulse Rate 81 08/30/24 18:11 Respiratory Rate 18 08/30/24 18:11 Blood Pressure 112/75 08/30/24 18:11 Pulse Oximetry 98 08/30/24 18:11 Oxygen Delivery Method Room Air 08/30/24 18:11 Medical Decision Making MDM Narrative Medical decision making narrative: 88-year-old female with diarrhea for a week. Vital stable, the patient is afebrile. She appears well-hydrated. Fluids are ordered. Basic labs. Zofran. Her abdominal examination is benign. Lab work unremarkable. She was able to tolerate oral intake. Discussed expected clinical course of viral diarrhea. Return precautions were discussed. All questions were answered. The patient was discharged home Medical Records Medical records reviewed: Yes I reviewed the patient's medical records Lab Data Lab results reviewed: Yes I reviewed the patient's lab results Labs: Lab Results 08/30/24 Range/Units 15:27 WBC 11.2 H (4.0-11.0) 10^3/uL RBC 4.61 (4.20-5.40) 10^6/uL Hgb 14.0 (12.0-16.0) g/dL Hct 42.4 (36.0-48.0) % MCV 92.0 (81.0-99.0) fL MCH 30.4 (26.7-34.0) pg MCHC 33.0 (29.9-35.2) g/dL RDW 12.9 (11.0-15.0) % Plt Count 351 (150-450) 10^3/uL MPV 9.8 (9.5-13.5) fL Neut % (Auto) 75.0 (43.0-75.0) % Lymph % (Auto) 14.7 L (20.5-60.0) % Sebastian % (Auto) 9.7 (1.7-12.0) % Eos % (Auto) 0.2 L (0.9-7.0) % Baso % (Auto) 0.2 (0.2-2.0) % Neut # (Auto) 8.4 H (1.4-6.5) 10^3/uL Lymph # (Auto) 1.7 (1.2-3.8) 10^3/uL Sebastian # (Auto) 1.1 H (0.3-0.8) 10^3/uL Eos # (Auto) 0.0 (0.0-0.7) 10^3/uL Baso # (Auto) 0.0 (0.0-0.1) 10^3/uL Abs Immat Gran (auto) 0.02 (0.00-0.03) 10^3/uL Imm/Tot Granulo (auto) 0.2 (0.0-0.5) % Sodium 139 (136-145) mmol/L Potassium 3.8 (3.5-5.1) mmol/L Chloride 103 (98-107) mmol/L Carbon Dioxide 25.3 (21.0-32.0) mmol/L Anion Gap 14.5 BUN 37.0 H (7.0-18.0) mg/dL Creatinine 0.76 (0.55-1.02) mg/dL Est GFR ( Amer) >60 (>=60 mL/min/1.73m^2) Est GFR (Non-Af Amer) >60 (>=60 mL/min/1.73m^2) BUN/Creatinine Ratio 48.7 Glucose 100 (74-106) mg/dL Calcium 9.4 (8.5-10.1) mg/dL Discharge Plan Discharge Chief Complaint: Nausea/Vomiting/Diarrhea Clinical Impression: Diarrhea Patient Disposition: Home, Self-Care Time of Disposition Decision: 17:12 Condition: Good Mode of Transportation: Private Vehicle Prescriptions / Home Meds: No Action clobetasol 0.05 % cream 1 applic topical DAILY 14 Days Qty: 60 1RF meloxicam 7.5 mg tablet 7.5 mg PO DAILY amlodipine 5 mg Tablet 10 mg PO QD sertraline 25 mg tablet 25 mg PO Q24H ferrous sulfate 325 mg (65 mg iron) tablet,delayed release (DR/EC) 325 mg PO DAILY cholecalciferol (vitamin D3) 50 mcg (2,000 unit) capsule 50 mcg PO DAILY Rx Instructions: 1000 units daily aspirin 325 mg capsule 325 mg PO DAILY Caltrate 600 plus D 600 mg-20 mcg (800 unit) tablet,chewable 1 tab PO DAILY acetaminophen [Tylenol] 325 mg tablet 325 mg PO Q6H PRN (Reason: fever or pain) diphenhydramine HCl [Allergy (diphenhydramine)] 25 mg capsule 25 mg PO Q4H PRN (Reason: itching) amoxicillin-pot clavulanate 875-125 mg tablet 1 tab PO BID 7 Days Qty: 14 0RF lidocaine [Lidoderm] 5 % adhesive patch,medicated 1 patch topical DAILY Qty: 30 0RF Rx Instructions: leave on most painful area (tailbone/lumbar spine) for up to 12 hrs tramadol 50 mg tablet 50 mg PO Q8H PRN (Reason: pain) Qty: 20 0RF Print Language: Estonian Instructions: Acute Diarrhea (ED) Additional Instructions: Call the office of your primary care doctor to arrange for follow-up within the above-stated timeframe. Your ED visit was focused on your acute issue and does not replace primary care. You should review your labs, imaging, and diagnoses from this ED visit with your primary care physician. There may be non-emergent/ incidental findings that need further evaluation. You should review your vital signs including blood pressure with your PCP. If you were prescribed medications you should discuss possible side-effects and drug interactions with your pharmacist. Call 911 or go to the nearest Emergency Department if you develop any new or worsening symptoms. Referrals: ASHLEY BONILLA [Primary Care Provider] - 1 week Discharge Date/Time: 08/30/24 18:13
== END 2024-08-30 18:13 | disposition home or self-care (01) ==
PROVIDERS: Emergency Provider Student in an Organized Health Care Education/Training Program; PCP Nurse Practitioner
DX: R19.7 Diarrhea, unspecified (principal); Z87.891 Personal history of nicotine dependence
CPT/HCPCS: 36415; 80048; 85025; 96361; 96374; 99285; J2405

== ENCOUNTER 2025-05-19 07:38 | Emergency (ER) | payer MEDICARE, SELFPAY ==
[2025-05-19 07:41] VITALS: BP 171/85; PULSE 63; TEMP 36.3; O2SAT 97; BMI 17.2
--- NOTE | 2025-05-19 07:48 | XR_ITS ---
The [place] [id number] Patient Name: JIM GARCIA MRN: [id number] date: 1935 Sex: F Assigned Patient Location: ER Current Patient Location: ER Accession/Order Number: [id number] Exam Date: 05/19/2025 08:20 Report Date: 05/19/2025 09:36 At the request of: JACIEL WILSON MD Procedure: XR knee LT 2V LEFT KNEE - 2 views CLINICAL DATA: Left knee pain following fall COMPARISON: None AP and lateral views were obtained. There is osteopenia. No acute fracture or dislocation is identified. There is minimal marginal spurring. No knee effusion or focal soft tissue swelling is noted. XR/XR knee LT 2V IMPRESSION: OSTEOPENIA AND MINOR DEGENERATIVE CHANGE. NO ACUTE BONY INJURY. Impression dictated by: Angie Francisco M.D. 05/19/2025 9:36 AM Dictation Location: [place] [address] Electronically authenticated by: [id number] Y Date: 05/19/2025 09:36
--- NOTE | 2025-05-19 07:48 | CT_ITS ---
The [address] [address] Patient Name: JIM GARCIA MRN: [id number] date: 1935 Sex: F Assigned Patient Location: ER Current Patient Location: ER Accession/Order Number: [id number] Exam Date: 05/19/2025 08:15 Report Date: 05/19/2025 08:46 At the request of: JACIEL WILSON MD Procedure: CT cervical spine wo con CLINICAL DATA: Patient fell. CT BRAIN WITHOUT CONTRAST: COMPARISON: 11/14/2023 TECHNIQUE: Contiguous axial unenhanced images were obtained through the brain. This CT exam was performed using one or more following dose reduction techniques: Automated exposure control, adjustment of the mA and/or kV according to patient size, or use of iterative reconstruction technique. FINDINGS: There is moderate generalized atrophy. The ventricles are stable in size and position. Moderate microvascular changes are again noted. There are no additional areas of abnormal attenuation. There is no hemorrhage, mass effect or extra-axial collections. The calvarium is intact. The imaged paranasal sinuses are clear. There is continued opacification of the right mastoid air cells and middle ear cavity on that side. Carotid siphon plaque is seen. CT/CT cervical spine wo con IMPRESSION: ATROPHY AND CHRONIC MICROVASCULAR DISEASE. CHRONIC RIGHT OTOMASTOIDITIS NO ACUTE INTRACRANIAL TRAUMA. CT CERVICAL SPINE WITHOUT CONTRAST WITH 3D RECONSTRUCTIONS: COMPARISON: 11/14/2023 TECHNIQUE: Spiral axial unenhanced images were obtained through the cervical spine. Sagittal, coronal and 3D volume-rendered reconstructions were also reviewed. This CT exam was performed using one or more following dose reduction techniques: Automated exposure control, adjustment of the mA and/or kV according to patient size, or use of iterative reconstruction technique. FINDINGS: There is exaggeration of the normal cervical lordosis as well as dextroscoliotic curvature.. The bony structures are osteopenic. No change in alignment is seen. No acute fractures are identified. The disc spaces are uniform. There is minor endplate spurring and mild bilateral facet hypertrophy. The atlantoaxial relationship is maintained. No prevertebral soft tissue swelling is seen. There is carotid artery plaque. The upper imaged lungs show minor scarring. IMPRESSION: OSTEOPENIA, LOSS OF NORMAL CERVICAL CURVATURE AND MILD DEGENERATIVE CHANGES SIMILAR TO THE COMPARISON STUDY. NO ACUTE BONY INJURY. Impression dictated by: Angie Francisco M.D. 05/19/2025 8:46 AM Dictation Location: [place] [address] Electronically authenticated by: [id number] Y Date: 05/19/2025 08:46
--- NOTE | 2025-05-19 07:48 | XR_ITS ---
The [address] [address] Patient Name: JIM GARCIA MRN: [id number] date: 1935 Sex: F Assigned Patient Location: ED.MAIN Current Patient Location: ER Accession/Order Number: [id number] Exam Date: 05/19/2025 08:20 Report Date: 05/19/2025 09:20 At the request of: JACIEL WILSON MD Procedure: XR thoracic spine 2V CLINICAL DATA: Patient fell LEFT HIP WITH AP PELVIS - 3 views COMPARISON: CT 12/06/2023 AP view of the pelvis as well as AP and frog-lateral views of the left hip were obtained. There is osteopenia. A dynamic hip screw with short intramedullary sona is present on the left. The hardware appears intact and in appropriate position. There is an old left intertrochanteric hip fracture. There are also old pubic rami fractures on both sides. No definite acute fracture or dislocation is identified. The hip joint spaces are maintained. There is mild marginal spurring. Sclerosis is seen at the SI joints. There is levoscoliotic curvature and degenerative change at the lower imaged lumbar spine. No soft tissue abnormalities are present. XR/XR thoracic spine 2V IMPRESSION: OSTEOPENIA AND MILD DEGENERATIVE CHANGES. OLD PUBIC RAMI AND LEFT INTERTROCHANTERIC HIP FRACTURES. NO ACUTE BONY FINDINGS. THORACIC SPINE -2 views: COMPARISON: Plain films 12/06/[address] chest 03/31/2022 AP and lateral views were obtained. There is osteopenia. There is thoracolumbar dextroscoliotic curvature. No significant displacement is seen. There are compression fractures at T6, T8 and T11 which were present previously. There is moderate worsening compression deformity at T12. There is continued compression deformity at L2. Mild endplate spurring is seen. There are no paraspinal soft tissue abnormalities. IMPRESSION: OSTEOPENIA, SCOLIOSIS AND DEGENERATIVE CHANGES. MULTIPLE VERTEBRAL COMPRESSION FRACTURES WITH PROGRESSION T12. Impression dictated by: Angie Francisco M.D. 05/19/2025 9:20 AM Dictation Location: [place] [address] Electronically authenticated by: [id number] Y Date: 05/19/2025 09:20
--- NOTE | 2025-05-19 07:48 | XR_ITS ---
The [address] [address] Patient Name: JIM GARCIA MRN: [id number] date: 1935 Sex: F Assigned Patient Location: ED.MAIN Current Patient Location: ER Accession/Order Number: [id number] Exam Date: 05/19/2025 08:20 Report Date: 05/19/2025 09:20 At the request of: JACIEL WILSON MD Procedure: XR thoracic spine 2V CLINICAL DATA: Patient fell LEFT HIP WITH AP PELVIS - 3 views COMPARISON: CT 12/06/2023 AP view of the pelvis as well as AP and frog-lateral views of the left hip were obtained. There is osteopenia. A dynamic hip screw with short intramedullary sona is present on the left. The hardware appears intact and in appropriate position. There is an old left intertrochanteric hip fracture. There are also old pubic rami fractures on both sides. No definite acute fracture or dislocation is identified. The hip joint spaces are maintained. There is mild marginal spurring. Sclerosis is seen at the SI joints. There is levoscoliotic curvature and degenerative change at the lower imaged lumbar spine. No soft tissue abnormalities are present. XR/XR hip LT 2V w/ pelvis IMPRESSION: OSTEOPENIA AND MILD DEGENERATIVE CHANGES. OLD PUBIC RAMI AND LEFT INTERTROCHANTERIC HIP FRACTURES. NO ACUTE BONY FINDINGS. THORACIC SPINE -2 views: COMPARISON: Plain films 12/06/[address] chest 03/31/2022 AP and lateral views were obtained. There is osteopenia. There is thoracolumbar dextroscoliotic curvature. No significant displacement is seen. There are compression fractures at T6, T8 and T11 which were present previously. There is moderate worsening compression deformity at T12. There is continued compression deformity at L2. Mild endplate spurring is seen. There are no paraspinal soft tissue abnormalities. IMPRESSION: OSTEOPENIA, SCOLIOSIS AND DEGENERATIVE CHANGES. MULTIPLE VERTEBRAL COMPRESSION FRACTURES WITH PROGRESSION T12. Impression dictated by: Angie Francisco M.D. 05/19/2025 9:20 AM Dictation Location: [place] [address] Electronically authenticated by: [id number] Y Date: 05/19/2025 09:20
--- NOTE | 2025-05-19 07:48 | CT_ITS ---
The [address] [address] Patient Name: JIM GARCIA MRN: [id number] date: 1935 Sex: F Assigned Patient Location: ER Current Patient Location: ER Accession/Order Number: [id number] Exam Date: 05/19/2025 08:15 Report Date: 05/19/2025 08:46 At the request of: JACIEL WILSON MD Procedure: CT cervical spine wo con CLINICAL DATA: Patient fell. CT BRAIN WITHOUT CONTRAST: COMPARISON: 11/14/2023 TECHNIQUE: Contiguous axial unenhanced images were obtained through the brain. This CT exam was performed using one or more following dose reduction techniques: Automated exposure control, adjustment of the mA and/or kV according to patient size, or use of iterative reconstruction technique. FINDINGS: There is moderate generalized atrophy. The ventricles are stable in size and position. Moderate microvascular changes are again noted. There are no additional areas of abnormal attenuation. There is no hemorrhage, mass effect or extra-axial collections. The calvarium is intact. The imaged paranasal sinuses are clear. There is continued opacification of the right mastoid air cells and middle ear cavity on that side. Carotid siphon plaque is seen. CT/CT head/brain wo con IMPRESSION: ATROPHY AND CHRONIC MICROVASCULAR DISEASE. CHRONIC RIGHT OTOMASTOIDITIS NO ACUTE INTRACRANIAL TRAUMA. CT CERVICAL SPINE WITHOUT CONTRAST WITH 3D RECONSTRUCTIONS: COMPARISON: 11/14/2023 TECHNIQUE: Spiral axial unenhanced images were obtained through the cervical spine. Sagittal, coronal and 3D volume-rendered reconstructions were also reviewed. This CT exam was performed using one or more following dose reduction techniques: Automated exposure control, adjustment of the mA and/or kV according to patient size, or use of iterative reconstruction technique. FINDINGS: There is exaggeration of the normal cervical lordosis as well as dextroscoliotic curvature.. The bony structures are osteopenic. No change in alignment is seen. No acute fractures are identified. The disc spaces are uniform. There is minor endplate spurring and mild bilateral facet hypertrophy. The atlantoaxial relationship is maintained. No prevertebral soft tissue swelling is seen. There is carotid artery plaque. The upper imaged lungs show minor scarring. IMPRESSION: OSTEOPENIA, LOSS OF NORMAL CERVICAL CURVATURE AND MILD DEGENERATIVE CHANGES SIMILAR TO THE COMPARISON STUDY. NO ACUTE BONY INJURY. Impression dictated by: Angie Fracnisco M.D. 05/19/2025 8:46 AM Dictation Location: [place] [address] Electronically authenticated by: [id number] Y Date: 05/19/2025 08:46
[2025-05-19 08:09] LABS: Hematocrit 37.0 % (36.0-48.0); Hemoglobin 12.5 g/dL (12.0-16.0); Immature Granulocytes Abs Auto 0.01 10^3/uL (0.00-0.03); Immature Granulocytes Pct Auto 0.2 % (0.0-0.5); Lymphocytes Absolute Auto 1.4 10^3/uL (1.2-3.8); Mean Corpuscular HGB Conc 33.8 g/dL (29.9-35.2); Mean Corpuscular Hemoglobin 32.2 pg (26.7-34.0); Mean Corpuscular Volume 95.4 fL (81.0-99.0); Platelet Count 311 10^3/uL (150-450); Red Blood Count 3.88 10^6/uL (4.20-5.40); White Blood Count 6.4 10^3/uL (4.0-11.0)
[2025-05-19 08:24] LABS: Alanine Aminotransferase 19 U/L (14-59); Albumin Globulin Ratio 0.9; Albumin Level 3.3 g/dL (3.4-5.0); Alkaline Phosphatase 62 U/L (46-116); Anion Gap 10.9; Aspartate Amino Transferase 18 U/L (15-37); Blood Urea Nitrogen 16.0 mg/dL (7.0-18.0); Calcium 9.8 mg/dL (8.5-10.1); Carbon Dioxide 33.6 mmol/L (21.0-32.0); Chloride 105 mmol/L (98-107); Estimated GFR (African America >60 (>=60 mL/min/1.73m^2); Estimated GFR (Non-African Ame >60 (>=60 mL/min/1.73m^2); Globulin 3.7 g/dL; Glucose 93 mg/dL (74-106); Potassium 3.5 mmol/L (3.5-5.1); Sodium 146 mmol/L (136-145); Total Protein 7.0 g/dL (6.4-8.2)
--- OUTSIDE RECORDS SUMMARY | 2025-05-19 08:33 | XMS_ITS ---
Author Organization [facility] Care Team Providers Care Tablet Making Machine Operator Helper Name Role Phone JAYANT*, ITRI Unavailable Unavailable Storm Russell Unavailable Unavailable Allergies and adverse reactions No Known Allergies Care Team Name Role Address Phone Organization Dates ITRI JAYANT* PCP [address], [place], [address], [facility] (Office): : [facility] 04/04/2022 - 04/18/2022 Storm Russell [address], [place], [address], [facility] O[facility]2504/04/2022 - 04/18/2022 Immunizations Immunization Status Vaccine Details Vaccine Code CodeSystem Ricci e Notes Influenza completed Influenza, high- dose, split virus, quadrivalent, injectable, preservative free Given intramuscularly 197 CVX created date: 04/29/2022 consent date: 04/29/2022 administered date: 04/13/2022 SARS-COV-2 (COVID-19)lmoixrawqPPEA-DZP-5 (COVID-19) vaccine, mRNA, spike protein, LNP, preservative free, 30 mcg/0.3mL dose Step 2 of Multi-step with next step fifjyyfw219EVRqpkzcun date: 04/04/2022 administered date: 12/14/20204742RIAF-BXR-1 (COVID-19)uzjemqqwcOFHI-DDD-2 (COVID-19) vaccine, mRNA, spike protein, LNP, preservative free, 30 mcg/0.3mL dose Step 1 of Multi-step with next step oowuuelf260SECapglxza date: 04/04/2022 administered date: 1pneumococcal polysaccharide RQA89dsqfqnjla pneumococcal polysaccharide vaccine, 23 wfknqa54UZJvontrzk date: 04/04/2022 administered date: 04/17/2019Pneumococcal conjugate PCV 13completedpneumococcal conjugate vaccine, 13 jzvqxx594GYQzbycnoc date: 04/04/2022 administered date: 01/05/2017Tetanus Diphtheria Toxoids&ACellular Pertussis Vaccinecompleteddiphtheria, tetanus toxoids and acellular pertussis vaccine, Haemophilus influenzae type b conjugate, and poliovirus vaccine, inactivated (BDpE-Sdn-YXD)120CVXcreated date: 04/04/2022 administered date: 06/14/2020COVID GxemtmouoogdfmkzAUVO-YBH-9 (COVID-19) vaccine, mRNA, spike protein, LNP, preservative free, 30 mcg/0.3mL ujel530UOP created date: 04/04/2022 administered date: 08/24/2021 Mental Status Section Date Assessment Total Score Description 04/18/2022 BIMS 15 cognitively int act CAM 0 No delirium ind icated PHQ-9 00 5754ZBTF82fpobnhop cognitive fmxxoalocrAOV5Zt delirium indicatedPHQ-903 minimal depression Insurance Providers Problems Problem # Description Date of onset Resolved Date Code CodeSystem Concern Status 1 CHRONIC OBSTRUCTIVE PULMONARY DISEASE, UNSPECIFIED 04/04/[address] active 2 FALL FROM CHAIR, SUBSEQUENT ENCOUNTER 04/04/[address] active 3 HYPOTHYROIDISM, UNSPECIFIED 04/04/[address] active 4 IRON DEFICIENCY ANEMIA, UNSPECIFIED 04/04/[address] active 5 MULTIPLE FRACTURES OF PELVIS WITHOUT DISRUPTION OF PELVIC RING, SUBSEQUENT ENCOUNTER FOR FRACTURE WITH ROUTINE HEALING 04/04/[address] active 6 MUSCLE WEAKNESS (GENERALIZED) 04/04/[address] active 7 NEED FOR ASSISTANCE WITH PERSONAL CARE 04/04/[address] active 8 OTHER CERVICAL DISC DEGENERATION, UNSPECIFIED CERVICAL REGION 04/04/[address] active 9 OTHER INTERVERTEBRAL DISC DEGENERATION, LUMBAR REGION 04/04/[address] active 10 UNSPECIFIED FRACTURE OF UNSPECIFIED THORACIC VERTEBRA, SUBSEQUENT ENCOUNTER FOR FRACTURE WITH ROUTINE HEALING 04/04/[address] active 11 UNSPECIFIED LACK OF COORDINATION 04/04/[address] active Reason for Referral No Reasons for Referral Entered Social History Social History Observation Description Start Date End Date Code Code System Current Smoking Status Tobacco smoking consumption unknown 956064442 SNOMED CT Sex Assigned At Female 1935 83335-1 [facility] Gender Identity Sexual Orientation Vital Signs Code Code System Vitals Name Values and Units Timing Information 9279-1 [facility] Respiratory Rate Value=18.0 Units=/m in 04/18/2022 8462-4 [facility] Blood Pressure-Diastolic Value=83 Un its=mmHg 04/18/2022 8480-6 [facility] Blood Pressure-Systolic Ijknj=823 Un its=mmHg 04/18/2022 8867-4 [facility] Heart rate Value=69.0 Units=/min 8310-5 [facility] Body Temperature Value=97.6 Units= F 04/18/2022 39318-9 [facility] O2 % BldC Oximetry Value=94.0 Units= % 04/18/2022 01418-2 [facility] Pain Level Value=0.0 04/18/2022 03541-9 [facility] Weight Value=92.2 Units=Lbs 03/25 8302-2 [facility] Height Value=59.0 Units=Inches 04/04/2022
--- OUTSIDE RECORDS SUMMARY | 2025-05-19 08:33 | XMS_ITS | Clinical Summary ---
Author Organization [facility] Address [id number] [place] [address] Care Team Providers Care Ship Rigger Name Role Phone Unavailable Primary Care Provider Unavailabl e Allergies Active AllergyReactionsCriticalityNoted DateCommentsTetanus Vaccines And Toxoid IfcgKft2101/11/2017 Redness and itching after vaccination Medications MedicationSigDispense QuantityRefillsLast FilledStart DateEnd DateStatus calcium carbonate-vitamin D3 (CALTRATE 600 PLUS D) 600 mg (1,500 mg)-800 units tablet,chewable Indications:Age-related osteoporosis with current pathological fracture with routine healing, subsequent encounterChew 1 tablet and swallow in the morning and 1 tablet in the evening. Chew with meals. 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 30 tablet ctive ferrous sulfate 325 (65 FE) mg EC tablet Indications:Other iron deficiency anemiaTake 1 tablet (325 mg total) by mouth in the morning and 1 tablet (325 mg total) in the evening. Take with meals. 60 tablet ctive clobetasoL (TEMOVATE) 0.05 % cream 09/22/2023ctive traMADoL (ULTRAM) 50 mg tablet Indications:Arthritis, multiple joint involvementTake 1 tablet (50 mg total) by mouth every 8 (eight) hours as needed for pain. 30 tablet 10/09/2023ctive meloxicam (MOBIC) 7.5 mg tablet Indications:Arthritis, multiple joint involvementTake 1 tablet (7.5 mg total) by mouth in the morning. 30 tablet 4Active lidocaine 1.8 % adhesive patch,medicated Indications:Arthritis, multiple joint involvementApply 1 patch topically See Admin Instructions. On for 12 hours off for 12 hours. 30 patch 4Active aspirin 325 mg capsule Active calcium carb/vit D3/minerals (CALTRATE 600+D PLUS MINERALS ORAL) Active triamcinolone (KENALOG) 0.1 % cream 11/08/2023ctive amLODIPine (NORVASC) 10 mg tablet Indications:Benign essential HTNtake 1 tablet by mouth once daily 30 tablet 4Active cyanocobalamin 500 mcg tablet, sublingual Indications:Deficiency of vitamin C30Hfery 500 mcg under the tongue in the morning. 30 each 5Active Active Problems ProblemNoted DateDiagnosed DatePrimary osteoarthritis involving multiple joints 11/27/2024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 09/27/2023epression, major, in nwcmyjwyr30/06/2024Neck pain3Cognitive communication rvacphj04ementia in other diseases classified elsewhere, unspecified severity, without behavioral disturbance, psychotic disturbance, mood disturbance, and gyuaaoh59Fracture of unspecified part of neck of left femur, subsequent encounter for closed fracture with routine hglsrdb82Malignant neoplasm of colon03/03/2021 Hypovitaminosis D008/12/2019Thyroid zsyejs6606/01/2019 Overview (06/01/2019): See US done 04/2019 / stable from prior exam Deficiency of vitamin B1205/07/2018Colon xetyuv8704/04/2016Kyphosis of thoracic region Overview (01/05/2017): known osteoporosis Macular degenerationOsteoporosisHistory of colon cancer Overview (06/07/2017): s/p robotic resection. 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 or radiation, Encounters DateTypeDepartmentCare ZkaeIooixvzwpyl97/12/2025Telephone [facility] [address] [place] [address] Blu Vargas, PAVAN from Last 3 Months Immunizations ImmunizationAdministration DatesNext DueCOVID-19, mRNA, LNP-S, PF, 30mcg/0.3mL Dose12/06/2021,2DTP06/14/2020Influenza (IM) Preservative Free04/21/2014 Influenza High Dose Preservative Free IM05/07/2019,05/07/2018Influenza Vaccine, Quadrivalent, Vuszpelfhv78/19/2023,04/21/2022Influenza Whole04/17/2013, 04/24/2012,04/20/2011,05/05/2010,04/29/2009,05/09/2007Influenza, High-dose, Lwjmohkumojw59/25/2021,05/12/2020Influenza, Im Trivalent Nrwiyaczmxmj98/17/2022 Influenza, Injectable, quadrivalent (PF)05/09/2017,05/22/2015Pneumococcal Conjugate 13-Dwuevf8501/05/2017Pneumococcal Nvkdyqkionwkxa34/17/2022,04/17/2019 Pneumococcal, Qdgcyiwxdgs33/06/9476Ksat86/15/2017 Family History Medical HistoryRelationNameCommentsHeart diseaseFatherBreast cancerMaternal Aunt Breast cancerMotherCancerMotherBreast cancerSisterRelationNameStatusComments FatherDeceased (Age 61)Maternal AuntMotherDeceased (Age 72)Sister Social History Tobacco UseTypesPacks/DayYears UsedDateSmoking Tobacco: NeverSmokeless Tobacco: Never Tobacco Cessation:Counseling Given: Not Answered Alcohol UseStandard Drinks/WeekCommentsYes0 (1 standard drink = 0.6 oz pure alcohol)WINE ON OCCATIONPHQ-2AnswerDate RecordedTotal Rpwva5775Childcare AnswerDate FtjbeubsItjeuzexwBxrnfit35/12/2019EmploymentAnswerDate Recorded OpeukvofcxUdecxoy49/12/2019Hunger ScreeningAnswerDate RecordedWithin the past 12 months we worried whether our food would run out before we got money to buy more.Never True11/27/2024Within the past 12 months the food we bought just didn't last and we didn't have money to get more.Never True11/27/2024Purpose - LifeAnswerDate RecordedPurpose and direction in nrbuTnclfgq25/12/2021 CommentsNoSex and Gender InformationValueDate RecordedSex Assigned at BirthNot on fileLegal WmiDvqxxi54/06/2015 12:11 PM EDTGender IdentityNot on fileSexual OrientationNot on fileOccupationIndustryJob Start DateJob End Dateretired / tax company clericalNot on fileNot on fileNot on file Last Filed Vital Signs Vital SignReadingTime TakenCommentsBlood Fksubjiy969/58011/27/2024 11:28 AM EDT Zumzt074711/27/2024 11:28 AM KMFXtsbnuncpzl30.9 ??C (98.4 ??F)11/27/2024 11:28 AM EDTRespiratory Gazj392711/27/2024 11:28 AM EDTOxygen Wczisdwaqw75%11/27/2024 11:28 AM EDTInhaled Oxygen Concentration--Umcdma57.6 kg (85 lb 3.2 oz)11/27/2024 11:28 AM YPHDmhtet699.9 cm (4' 11.02 )11/27/2024 11:28 AM EDTBody Mass Index17.2 11/27/2024 11:28 AM EDT Plan of Treatment Health MaintenanceDue DateLast DoneCommentsZoster (Shingles) Vaccine (1 of 2) 5COVID-19 Vaccine ( season)505/, 11/01/2021, 08/24/2021, Additional history existsInfluenza Stspohb58/10/2023, 04/11/2023, 05/09/2022, Additional history existsMedicare Annual Wellness Visit 512/, 07/13/2023, 05/19/2022, Additional history exists Depression Xdjwrrkqa57Fall Risk Jajsfxiwu62/01/2025 Tobacco Sukkjufmq52/01/2025DTaP,Tdap and Td Vaccines (3 - Td or Tdap) , 01/05/2017 Medical Devices Not on file Insurance Advance Directives TypeDate RecordedPatient RepresentativeExplanationAdvance Directive04/11/2023 3:23 PMPOA 04/11/23Advance Directive03/08/2023 11:14 AMguardianship 03/08/2023
--- OUTSIDE RECORDS SUMMARY | 2025-05-19 08:33 | XMS_ITS | Clinical Summary ---
Author Organization [facility] Healthcare Address [address] [place] [address] Care Team Providers Care Event Marketing Manager Name Role Phone UnallocatedMelissa MD Primary Care Provi edson Allergies No known active allergies Medications MedicationSigDispense QuantityRefillsLast FilledStart DateEnd DateStatus aspirin (Vazalore) 325 MG capsule Take 325 mg by mouth DailyActive ferrous sulfate 325 (65 Fe) MG EC tablet Take 325 mg by mouth in the morning and 325 mg in the evening. Take with meals. 07/13/2023ctive meloxicam (Mobic) 7.5 MG tablet Take 7.5 mg by mouth Daily10/09/2023ctive sertraline (Zoloft) 25 MG tablet Take 25 mg by mouth in the morning.07/13/2023ctive cholecalciferol (Vitamin D-3) 25 MCG (1000 UT) capsule Take 1,000 Units by mouth DailyActive amLODIPine (Norvasc) 5 MG tablet Take 5 mg by mouth Daily10/17/2023ctive Lidocaine 1.8 % patch Apply 1 patch topically See administration wfqpyypxyida49/26/2024ctive traMADol (Ultram) 50 MG tablet Take 50 mg by mouth every 8 (eight) hours if needed for moderate pain10/09/2023 Active Active Problems No known active problems Encounters DateTypeDepartmentCare UtarGtgactmiohc68/14/2025bstract [facility] DE[facility] [address] [place] [phone] Melissa Gaston MD 04/02/2025bstract [facility] DE[facility] [address] [place] [phone] Melissa Gaston MD 03/27/2025bstract [facility] [address] [place] [address] Unallocated, [facility] Provider, 03/27/2025bstract [facility] [address] [place] [phone] Unallocated, [facility] Provider, 02/26/2025bstract [facility] [address] [place] [phone] Echo Murray, JAIRO 02/26/2025bstract [facility] [address] [place] [phone] Echo Murray, DANDY TENDER from Last 3 Months Social History Tobacco UseTypesPacks/DayYears UsedDateSmoking Tobacco: NeverSmokeless Tobacco: Never Tobacco Cessation:Counseling Given: Not Answered CommentsUnknownSex and Gender InformationValueDate RecordedSex Assigned at BirthNot on fileLegal QfbGbxjto37/15/2023 6:54 PM EDTGender IdentityNot on fileSexual OrientationNot on file Plan of Treatment Health MaintenanceDue DateLast DoneCommentsInfluenza Vaccine (#1)03/24/2025 04/11/2023, 05/09/2022, 04/21/2022, Additional history existsMedicare Annual Wellness (AWV)51, 07/13/2023, 05/19/2022, Additional history existsPneumococcal Vaccine: 65+ RhplwUshtdoszi55/17/2022, 04/17/2019, 01/05/2017, Additional history exists Insurance Care Teams Team MemberRelationshipSpecialtyStart DateEnd Date Unallocated, [facility] Provider, [address] [place], [place] [phone] PCP - GeneralFamily Medicine12/07/23
--- OUTSIDE RECORDS SUMMARY | 2025-05-19 08:33 | XMS_ITS ---
Author Organization [facility] Address [id number] [place] [address] Care Team Providers Care Orbitread Operator Name Role Phone Unavailable Primary Care Provider Unavailabl e Active Problems ProblemNoted DateDiagnosed DatePrimary osteoarthritis involving multiple joints 11/27/2024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 4Depression, major, in jlhuthtgz96/06/2024Neck pain3Cognitive communication hebibmk70ementia in other diseases classified elsewhere, unspecified severity, without behavioral disturbance, psychotic disturbance, mood disturbance, and uoqtaxn14/Fracture of unspecified part of neck of left femur, subsequent encounter for closed fracture with routine cmwytiq24/Malignant neoplasm of colon03/03/2021 Hypovitaminosis D008/12/2019Thyroid pwsodt6006/01/2019 Overview (06/01/2019): See US done 04/2019 / stable from prior exam Deficiency of vitamin B1205/07/2018Colon cjufph6504/04/2016Kyphosis of thoracic region Overview (01/05/2017): known osteoporosis Macular degenerationOsteoporosisHistory of colon cancer Overview (06/07/2017): s/p robotic resection. 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 or radiation, Current Treatment and Therapy Plans No current plan information found. Past Treatment and Therapy Plans
--- OUTSIDE RECORDS SUMMARY | 2025-05-19 08:33 | XMS_ITS | Encounter Summary ---
Author Organization [facility] Address [address] [place] [address] Care Team Providers Care Abe Teacher Name Role Phone Unallocated, [facility] Provider Primary Care Provi edson Encounter Details DateTypeDepartmentCare Team (Latest Contact Info)Ljjilcefxur27/14/2025bstract [facility] [address] [place] [phone] Unallocated, [facility] ProviderMD [address] [place] [phone] Social History Tobacco UseTypesPacks/DayYears UsedDateSmoking Tobacco: NeverSmokeless Tobacco: NeverCommentsUnknownSex and Gender InformationValueDate RecordedSex Assigned at BirthNot on fileLegal KjfEndmub15/15/2023 6:54 PM EDTGender Identity Not on fileSexual OrientationNot on filedocumented as of this encounter Plan of Treatment Not on file documented as of this encounter Visit Diagnoses Not on filedocumented in this encounter Care Teams Team MemberRelationshipSpecialtyStart DateEnd Date Unallocated, [facility] ProviderMD [address] [place], [place] [phone] PCP - GeneralFamily Medicine12/07/23documented as of this encounter
--- OUTSIDE RECORDS SUMMARY | 2025-05-19 08:34 | XMS_ITS | Patient Health Record ---
Author Organization [facility] [place] Address [address] [place] [address] Care Team Providers Care Briar Wood Sorter Name Role Phone None, Unknown or Primary Care Provider Unavailab le Allergies No Known Allergies Reason For Referral No Information Medications Medication SIG (Take, Route, Frequency, Duration) Notes Start Date End Date Status busPIRone HCl 5 MG 1 tablet Orally Twice a day ActiveCaltrate 600+D PlusActiveFerrous Sulfate 325 (65 Fe) MG1 tablet Orally Three times a WeekActiveSertraline HCl 25 MG1 tablet Orally Once a dayActive Vitamin W5XcvyrpNciuphw 325 MG1 tablet Orally Once a dayActive Social History Tobacco Use: Social History Observation Description Date Details (start date - stop date) Never Smoker NA - NA Tobacco Use/Smoking Question Answer Notes Patient is a nonsmoker Problems Problem Type SNOMED Code ICD Code Onset Dates Problem Status W/U Status Risk Notes Problem Localized, primary o steoarthritis of the ankle and/or foot (600090403) Primary osteoarthritis, left ankle and foot (M19.072) ActiveconfirmedProblemPain in left foot (678435962223780)Left foot pain (M79.672)Activeconfirmed Plan Of Treatment No Information Insurance Providers Payer Name Payer Address Payer Phone Subscriber Number Group Number Insured Name Patient Relationship to Insured Coverage Start Date Coverage End Date [employer] MEDICARE PFFS [address] [address] [place], [place] [id number] Annamaria Cassidy Self - patient is the insured Medical (General) History Medical History History ICD Code Arthritis dementiaSurgical History Surgery Date(Month/Year) hip repair 10/13
--- OUTSIDE RECORDS SUMMARY | 2025-05-19 08:37 | XMS_ITS | CCD ---
Author Organization [facility] Care Team Providers Care Hospital Manager Name Role Phone Rylie Galvan Unavailable Richard He Primary Care Provider Unavailabl Avani Floresght E Primary Care Provider Unavailabl Antwan Florest E Primary Care Provider UnavailJULES Chaves Primary Care Provider MD Juliet Green Admit Provider [phone] MD Leighton Valente Other Provider MD Galen Escobar Other Provider MD Lilian Van Other Provider DO Silvestre Saunders Other Provider MD Bulmaro Moses II Other Provider [phone] MD Yani Cyr Attending Provider ADELE KATZ Admitting Unavailable DR TAYLOR PENA Consulting Unavailable OLVERA, ASHLEY Primary Care Unavailable ADELE KAZT Attending Unavailable ADELE KATZ Consulting Unavailable PAY [...] Consulting Unavailable MADELEINE HEREDIA Consulting Unavailable RAYMUNDO ., DR DE GUZMAN Attending Unavailable OLVERA, ASHLEY Primary Care Unavailable RAYMUNDO .DR DE GUZMAN Consulting Unavailable DR GAB LEE Admitting Unavailable DR MARISSA SAVAGE Consulting Unavailabl e BECKY, DR TAYLOR Grimes Consulting Unavailable NADERER, DR LENI Steele Consulting Unavailable HARMONYCHLAUREANO ., FAHAD HAMILTON Consulting UnavailAVEL Maciel Consulting Unavailable OLVERA, ASHLEY Primary Care Unavailable JACKIE, DR ONEIL Consulting Unavailable JACKIE, DR ONEIL Admitting Unavailable JACKIE, DR ONEIL Attending Unavailable Oledimple, Leighton Consulting Unavailable Juliet Green Admitting Unavailable Yani Cyr Attending Unavailable Olvera, Ashley J Primary Care Unavailable Galen Escobar Consulting Unavailable Lilian Van Consulting Unavailable Silvestre Saunders Consulting Unavailable Bulmaro Moses II Consulting Unavailnico e Sidra, Leighton Unavailable ITALO DONOHUE Attending Unavailable Olvera COMMANDER [employer] PLANNER, Ashley J Primary Care Provid er [place] OLVERAERIE J Referring Unavailable OLVERA, ASHLEY J Primary Care Unavailable OLVERA, ASHLEY Referring Unavailable OLVERA, ASHLEY Primary Care Unavailable Olvera COMMANDER [employer]AND PLANNER, Ashley J Primary Care Provid er [place] OLVERAERIE J Attending Unavailable OLVERA, ASHLEY J Referring Unavailable OLVERA, ASHLEY J Primary Care Unavailable OLVERA ASHLEY J Attending Unavailable OLVERA, ASHLEY J Referring Unavailable OLVERA, ASHLEY J Primary Care Unavailable OLVERA, ASHLEY J Attending Unavailable OLVERA, ASHLEY J Referring Unavailable OLVERA, ASHLEY J Primary Care Unavailable OLVERA, ASHLEY J Attending Unavailable OLVERA, ASHLEY J Referring Unavailable OLVERA, ASHLEY J Primary Care Unavailable Linda COMMANDER POLICE RESERVES-BRAND PLANNERReagan Primary Care Provider Allergies Allergy ClassificationReported Allergen(s)Allergy TypeDate of OnsetReaction(s) Facility (17 sources)Tetanus Vaccines And Toxoid; Translations: [TETANUS VACCINES AND TOXOID]Propensity to adverse reactions to rycv41-70[facility]5965[facility] Medications Current Medications MedicationDrug Class(es)DatesSig (Normalized)Sig (Original)acetaminophen 500 mg oral tablet (4 sources)Start: 35-89-8233gvht 1000 mg by mouth every eight hoursAcetaminophen Active 1000 MG PO Every 8 hours October 03, 2022 12:00amStart: 89-88-7807skhr 1 tablet by mouth every four hours as neededacetaminophen (TYLENOL) 325 mg tablet Take 1 tablet by mouth every 4 hours as needed. 0 04/09/2016 Active Comment on above:Take 1 tablet by mouth every 4 hours as needed.amLODIPine 10 mg oral tablet (17 sources)Dihydropyridine Calcium Channel BlockerStart: 36-22-5733pcoj 1 tablet by mouth once dailyamLODIPine (NORVASC) 10 mg tablet Indications: Benign essential HTN take 1 tablet by mouth once daily 30 tablet 11 03/20/2024 Active Start: 10-02-2023 End: 09-50-0409otlv 1 tablet by mouth once dailyamLODIPine (NORVASC) 5 mg tablet Indications: Benign essential HTN take 1 tablet by mouth once daily 90 tablet 2 10/17/2023 03/20/2024 Discontinued (Reorder)aspirin 325 mg oral tablet (17 sources)Platelet Aggregation Inhibitor, Nonsteroidal Anti-inflammatory Drug Start: 48-62-2032qgya 325 mg by mouth once dailyAspirin Active 325 MG PO Daily 0 October 03, 2022 12:00amaspirin 325 mg capsule Active End: 56-60-8154twqm 1 tablet by mouth in the morningaspirin 81 mg Take 1 tablet (81 mg total) by mouth in the morning. 0 10/25/2023 Discontinued (Therapy completed)calcium carb/vit D3/minerals (CALTRATE 600+D PLUS MINERALS ORAL) (11 sources)calcium carb/vit D3/minerals (CALTRATE 600+D PLUS MINERALS ORAL) Activecalcium carb/vit D3/minerals (CALTRATE 600+D PLUS MINERALS ORAL) Caltrate 600+D Plus Activecalcium carb/vit D3/minerals (CALTRATE 600+D PLUS MINERALS ORAL) Caltrate 600+D Plus 0 Activecalcium carbonate 1500 mg / cholecalciferol 800 unt chewable tablet (15 sources)Vitamin DStart: 83-33-5681glhkrcl carbonate-vitamin D3 (CALTRATE 600 PLUS D) 600 mg (1,500 mg)-800 units tablet,chewable Indications: Age-related osteoporosis with current pathological fracture with routine healing, subsequent encounter Chew 1 tablet and swallow in the morning and 1 tablet in the evening. Chew with meals. 60 tablet 6 10/31/2022 ActiveCalcium Citrate-Vitamin D3 (1 source)Start: 83-38-7945nwrm 1 tablet by mouth once dailyCalcium Citrate- Vitamin D3 Active 1 TAB PO Daily September 28, 2022 1:00amCitracal +D3 250-107-500 MG-MG-UNIT (2 sources)Citracal +D3 250-107-500 MG-MG-UNIT Orally Activeclobetasol propionate 0.5 mg/ml topical cream (15 sources)CorticosteroidStart: 86-22-6491wlakitjyyP (TEMOVATE) 0.05 % cream 09/22/2023 ActiveStart: 84-21-3763cqumgmvnuY (TEMOVATE) 0.05 % cream apply to affected area once daily for 2 weeks 09/22/2023 Activeferrous sulfate 325 mg delayed release oral tablet (18 sources)Start: 86-36-5941gvfs 1 tablet by mouth in the morning, then take 1 tablet by mouth at mealtimeferrous sulfate 325 (65 FE) mg EC tablet Indications: Other iron deficiency anemia Take 1 tablet (325 mg total) by mouth in the morning and 1 tablet (325 mg total) in the evening. Take with meals. 60tablet 11 07/13/2023 ActiveStart: 14-19-7573wdsm 325 mg by mouth once dailyFerrous Sulfate Active 325 MG PO Daily September 28, 2022 1:00amtake 1 tablet by mouth once daily Ferrous Sulfate 325 (65 Fe) MG 1 tablet Orally Once a day Activetake 1 tablet by mouth every twenty-four hoursFerrous Sulfate 325 (65 Fe) MG 1 tablet Orally Once a day Activelidocaine 0.018 mg/mg medicated patch (12 sources)Antiarrhythmic, Amide Local AnestheticStart: 83-82-6252wteabioxz 1.8 % adhesive patch,medicated Indications: Arthritis, multiple joint involvement Apply 1patch topically See Admin Instructions. On for 12 hours off for 12 hours. 30 patch 11 10/17/2023 Activelutein 20 mg oral tablet (5 sources)take 1 capsule by mouth once dailyLutein 20 MG 1 capsule with a meal Orally Once a day ActiveLUTEIN ORAL Take by mouth. 0 Activetake 1 capsule by mouth every twenty-four hoursLutein 20 MG 1 capsule with a meal Orally Once a day ActiveComment on above:Take by mouth.meloxicam 7.5 mg oral tablet (18 sources)Nonsteroidal Anti-inflammatory DrugStart: 10-09-2023 End: 02-67-2050nfel 1 tablet by mouth in the morningmeloxicam (MOBIC) 7.5 mg tablet Indications: Arthritis, multiple joint involvement Take 1 tablet (7.5 mg total) by mouth in the morning. 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 30 tablet 11 07/13/2023 ActivetraMADol hydrochloride 50 mg oral tablet (16 sources)Opioid AgonistStart: 10-02-2023 End: 93-78-7688gdwi 1 tablet by mouth every eight hours as needed for pain traMADoL (ULTRAM) 50 mg tablet Indications: Arthritis, multiple joint involvement Take 1 tablet (50mg total) by mouth every 8 (eight) hours as needed for pain. 30 tablet 10/09/2023 Activetriamcinolone acetonide 1 mg/ml topical cream (10 sources)CorticosteroidStart: 91-96-4478rlzyewchiyxxn (KENALOG) 0.1 % cream 11/08/2023 Activevitamin b12 0.5 mg sublingual tablet (16 sources)Vitamin M13Olgsh: 66-32-9310nxiv 1 tablet under the tongue in the morningcyanocobalamin 500 mcg tablet, sublingual Indications: Deficiency of vitamin B12 Place 500 mcg under the tongue in the morning. 30 each 11 07/25/2024 ActiveStart: 11-15-2021 End: 32-45-6054mhtj 1 tablet under the tongue in the morningcyanocobalamin (VITAMIN B12) 1,000 mcg tablet, sublingual Indications: Deficiency of vitamin B12 Place 1 tablet (1,000 mcg total) under the tongue in the morning. 90 each 2 11/15/2021 07/25/2024 Discontinued (Reorder) Completed/Discontinued Medications MedicationDrug Class(es)DatesSig (Normalized)Sig (Original)alendronic acid 35 mg oral tablet (1 source)BisphosphonateStart: 07-13-2023 End: 75-62-1917aoeq 1 tablet by mouth in the morningalendronate (FOSAMAX) 35 mg tablet Indications: History of healed osteoporosis fracture Take 1 tablet (35 mg total) by mouth every 7 days. In a.m. with water on empty stomach, nothing else by mouth and remain upright for 30min 4 tablet 11 07/13/2023 09/28/2023 Discontinued (Therapy completed)amoxicillin 875 mg / clavulanate 125 mg oral tablet (1 source)Penicillin-class AntibacterialStart: 10-02-2023 End: 96-38-6410igfp 1 tablet by mouth twice dailyamoxicillin-pot clavulanate (AUGMENTIN) 875-125 mg per tablet take 1 tablet by mouth twice a day for 7 days 0 10/02/2023 10/09/2023 Discontinued (Therapy completed)busPIRone hydrochloride 5 mg oral tablet (2 sources)Start: 03-10-2023 End: 28-98-9459zgiy 0.5 tablet by mouth three times daily as needed for anxiety busPIRone (BUSPAR) 5 mg tablet Indications: 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 30 tablet 1 03/10/2023 10/09/2023 Discontinued (Therapy completed)cholecalciferol 0.01 mg oral capsule (1 source)Vitamin D End: 42-48-4999dbwqhjnzsenedhj, vitamin D3, (VITAMIN D3) 10 mcg (400 unit) capsule Vitamin D3 0 10/25/2023 Discontinued (Therapy completed)ibandronic acid 150 mg oral tablet (5 sources)BisphosphonateStart: 54-23-6168Ryfflgjxpwa 150 mg tabletloperamide hydrochloride 2 mg oral capsule (3 sources)Opioid AgonistStart: 69-49-7720xisa 1 capsule by mouth twice daily, then take 1 capsule by mouth at breakfast, then take 1 capsuleby mouth at dinner loperamide (IMODIUM) 2 mg cap(s) Take 1 capsule by mouth twice daily. Take 1 capsule with breakfastand 1 with dinner 60 capsule 5 04/19/2016 ActiveComment on above:Take 1 capsule by mouth twice daily. Take 1 capsule with breakfast and 1 with dinnermeclizine hydrochloride 25 mg chewable tablet (3 sources)Antiemetictake 1 tablet by mouth three times daily as neededMeclizine HCl 25 mg Chew Tab Take by mouth three times daily as needed. 0 ActiveComment on above:Take by mouth three times daily as needed.1 ml methylPREDNISolone acetate 40 mg/ml injection (4 sources)CorticosteroidStart: 10-09-2023 End: 85-78-3461eknsveCZUNDOUorbir acetate (DEPO-MEDROL) injection 40 mgStart: 10-09-2023 End: 44-07-5058iovktbWAJHLVTdvzel acetate (DEPO-MEDROL) injection 40 mgStart: 09-22-2023 End: 88-50-2960kovnfoVZGEWDLlxxjb (MEDROL, MONICA,) 4 mg tablet use as directed FOLLOW DIRECTIONS ON BACK OF FOIL PACK 0 09/22/2023 10/09/2023 Discontinued (Therapy completed)Start: 83-03-1463gmhaumHREGYHZyimvu (MEDROL, MONICA,) 4 mg tablet use as directed FOLLOW DIRECTIONS ON BACK OF FOIL PACK 0 09/22/2023 ActiveMV,CA,MIN/IRON FUM/FA/VIT K (MULTI FOR HER ORAL) (3 sources)MV,CA,MIN/IRON FUM/FA/VIT K (MULTI FOR HER ORAL) Take by mouth. 0 ActiveComment on above:Take by mouth.oxyCODONE hydrochloride 5 mg oral tablet (3 sources)Opioid AgonistStart: 09-16-6039dzwo 1 tablet by mouth every four hours as neededoxyCODONE immediate release (PERCOLONE) 5 mg immediate release tablet Take 1 tablet by mouth every 4 hours as needed. 40 tablet 0 04/09/2016 ActiveComment on above:Take 1 tablet by mouth every 4 hours as needed. simvastatin 20 mg oral tablet (5 sources)HMG-CoA Reductase InhibitorStart: 24-41-5048pzcdpjnweii (ZOCOR) 20 mg tabletSuprep Bowel Prep - (2 sources)Start: 51-54-3957Sfxjbj Bowel Prep - 1 Orally Daily for 1 day(s) Jan, Not-Taking Problems Active Problems Problem ClassificationProblemDateDocumented DateEpisodic/ChronicCancer of colon (20 sources)Malignant tumor of colon; Translations: [Malignant neoplasm of colon, unspecified]Onset: 986652-01-0326FddvhspXkqrfp of colon (15 sources)History of malignant neoplasm of colon; Translations: [Personal history of other malignant neoplasmof large intestine]90-89-5413Xlwvfoij Deficiency and other anemia (2 sources)Iron deficiency anemia; Translations: [Iron deficiency anemia, unspecified]EpisodicDeficiency and other anemia (4 sources)Anemia, unspecified; Translations: [ANEMIA UNSPECIFIED]Onset: 25-73-3713XloiydvsEpcfxhxo, dementia, and amnestic and other cognitive disorders (20 sources)Dementia associated with another disease; Translations: [Dementia in other diseases classified elsewhere without behavioral disturbance]Onset: 913643-88-1806ZylcfhyQgceslxvykmewy and diverticulitis (2 sources)Diverticular disease; Translations: [Diverticulosis of intestine, part unspecified, without perforation or abscess without bleeding]ChronicE Codes: Fall (6 sources)Unspecified fall, initial encounter; Translations: [Fall]Onset: 12-13-2021 Resolved: 35-54-9568CebaiyuzAnaitpdjf hypertension (8 sources)Benign essential hypertension; Translations: [Essential (primary) hypertension]Onset: 080799-26-8316XeisdpvFktqs and electrolyte disorders (2 sources)Hypokalemia; Translations: [Hypo-osmolality and hyponatremia]Onset: 89-50-5787GkgkpyfdVtys disorders (19 sources)Moderate major depression, single episode; Translations: [Major depressive disorder, single episode, moderate]Onset: 873836-01-3059Xdouxri Nutritional deficiencies (18 sources)Vitamin D deficiency; Translations: [Vitamin D deficiency, unspecified]Onset: 720170-68-4519WpwtpkeGysxkejuvkdips (3 sources)Degenerative joint disease involving multiple joints; Translations: [Primary generalized (osteo)arthritis]Onset: 783589-12-5754Seezzcy Osteoporosis (15 sources)Osteoporosis; Translations: [Age-related osteoporosis without current pathological fracture]76-26-3336MseriwyGtblo acquired deformities (15 sources)Kyphosis of thoracic spine; Translations: [Unspecified kyphosis, thoracic region]52-07-2679NxcamrhDohte aftercare (1 source)Other residential (current) drug therapy; Translations: [OTH RETIREMENT CURRENT DRUG THERAPY]Onset: 77-50-4453AtkpouyvAxpxj nervous system disorders (15 sources)Cognitive deficit in communication skills; Translations: [Cognitive communication deficit]Onset: 914428-31-7677YugkbkxCukpb non-traumatic joint disorders (4 sources)Arthropathy of multiple joints; Translations: [Arthropathy, unspecified]41-83-6103LifrvjoSskvf non-traumatic joint disorders (3 sources)Pain in left hip; Translations: [PAIN IN LEFT HIP]Onset: 09-27-2022 EpisodicRetinal detachments; defects; vascular occlusion; and retinopathy (15 sources)Degenerative disorder of macula ; Translations: [Unspecified macular degeneration]70-82-3780CpyhzjwQltokhdhchx; intervertebral disc disorders; other back problems (2 sources)Other intervertebral disc degeneration, lumbar region; Translations: [Other cervical disc degeneration, unspecified cervical region]Onset: 09-29-2022 ChronicThyroid disorders (16 sources)Hypothyroidism, unspecified; Translations: [Thyroid nodule]Onset: 785005-35-7205UxbgxlsCntzzipchmdz (1 source)CONTACT W/AND (SUSP) EXPOS COVID-19; Translations: [CONTACT W/AND (SUSP) EXPOS COVID-19]Onset: 03-36-2658Jkwpzgjrlnca (1 source)Displaced intertrochanteric fracture of left femur, initial encounter for closed fracture; Translations: [Displaced intertrochanteric fracture of left femur, initial encounter for closed fracture]Onset: 30-88-5410Gtbbmmrbleme (1 source)controlled substanceOnset: 43-55-5172Scfpfnkvkxuu (1 source)Annual ExamOnset: 91-48-6304Elshamqgdlop (1 source)Dementia in other diseases classified elsewhere, mild, with other behavioral disturbance; Translations: [Dementia in other diseases classified elsewhere, mild, with other behavioral disturbance]Onset: 09-27-2023 Past or Other Problems Problem ClassificationProblemDateDocumented DateEpisodic/Chronic Administrative/social admission (1 source)Reduced mobility; Translations: [Other reduced mobility]10-25-2023 EpisodicAttention-deficit, conduct, and disruptive behavior disorders (2 sources)Other symptoms and signs involving appearance and behavior; Translations: [Other symptoms and signsinvolving appearance and behavior]Onset: 84-60-4733UtlvjuxbXljikgybf-deficit, conduct, and disruptive behavior disorders (1 source)Altered behavior; Translations: [Other symptoms and signs involving appearance and behavior]56-68-5870XaqrrilnLyldlchuj infection; unspecified site (2 sources)Proteus (mirabilis) (morganii) as the cause of diseases classified elsewhere; Translations: [Unspecified Escherichia coli [E. coli] as the cause of diseases classified elsewhere]Onset: 14-42-9829JotvlrahSjwthnzxgb and other anemia (1 source)Iron deficiency anemia, unspecified; Translations: [IRON DEFICIENCY ANEMIA UNSPECIFIED]Onset: 95-53-8488ComaqqbfY Codes: Place of occurrence (1 source)Unspecified place in unspecified non-institutional (private) residence as the place of occurrence of the external causeOnset: 12-13-2021 Resolved: 90-26-4904XbqkqertCgosxobi of neck of femur (hip) (19 sources)Fracture of bone of hip region; Translations: [Fracture of unspecified part of neck of left femur, initial encounter for closed fracture] Onset: 028094-54-2608SojdiydtBjbm disorders (15 sources)Mood disordersOnset: 07-23-2024 Resolved: 130399-39-4241Akxrixzwxpu chest pain (1 source)Other chest pain; Translations: [OTHER CHEST PAIN]Onset: 05-12-2022 EpisodicNutritional deficiencies (19 sources)Cobalamin deficiency; Translations: [Deficiency of other specified B group vitamins]Onset: 101137-47-9676MufgxcaiAshtw fractures (1 source)Unspecified fracture of sacrum, initial encounter for closed fracture; Translations: [UNS FX SACRUMINITIAL CLOS FRACTURE]Onset: 76-29-6749TgrxreszZnnbg fractures (4 sources)Other specified fracture of right pubis, initial encounter for closed fracture; Translations: [OTHER SPEC FX RT PUBIS INIT CLOS FX]Onset: 03-31-2022 EpisodicOther fractures (1 source)Collapsed vertebra, not elsewhere classified, thoracic region, subsequent encounter for fracture with routine healing; Translations: [COLLAPSED VERT NEC THOR SUB RTN HL]Onset: 17-38-4479LbhqhvgfOcblw fractures (1 source)Closed fracture of one rib; Translations: [Fracture of one rib, right side, subsequent encounter for fracture with routine healing]82-98-3478Tdgxzdql Other injuries and conditions due to external causes (1 source)Unspecified injury of head, initial encounterOnset: 12-13-2021 Resolved: 40-53-0944WtyqcuuhEdcna non-traumatic joint disorders (5 sources)Pain in right hip; Translations: [PAIN IN RIGHT HIP]Onset: 12-13-2021 Resolved: 60-33-9974JfrmiqdvZtrci skin disorders (2 sources)Eruption; Translations: [Rash and other nonspecific skin eruption] 12-83-6588OrefhijvWvnfjwhjfszt fracture (1 source)History of osteoporotic fracture; Translations: [Personal history of (healed) osteoporosis fracture]00-86-1110JgzinjeqLqdkamplx (except that caused by tuberculosis or sexually transmitted disease) (1 source)Infective pneumonia; Translations: [Pneumonia, unspecified organism] 97-23-1167FszyzcohIvyfayjal and history of mental health and substance abuse codes (1 source)Personal history of nicotine dependence; Translations: [PERSONAL HISTORY OF NICOTINE DEPEND]Onset: 48-14-1413CxdcnjyxPokjbhjckkf; intervertebral disc disorders; other back problems (15 sources)Neck pain; Translations: [Cervicalgia]Onset: 507596-39-9427 EpisodicSuperficial injury; contusion (1 source)Contusion of right hip, initial encounter; Translations: [CONTUSION RIGHT HIP INITIAL ENC]Onset: 13-37-6555GcizyiapKduqfntvoqco (15 sources)Onset: 485338-99-3025Fnxemtc tract infections (2 sources)Urinary tract infection, site not specified; Translations: [Urinary tract infectious disease]Onset: 80-90-8686Zmxqztli Results Test NameValueInterpretationReference RangeFacilityCBC AND AUTO DIFFon 88-18-2507EDFDCAPT BASOPHIL0.1 X10E9/LNormal0.0-0.2PMercy [facility] Comment on above:Performed By: #### CBCA, CMP, 6-3, 2132-03, 87980-6 #### [facility] ([id number]) [address], [address] [place], [place] [address]VXANPSHJ NEUTROPHIL5.4 X10E9/LNormal1.5-6.6ProMemorial Health System HospitalComment on above:Performed By: #### CBCA, CMP, 6-3, 2132-03, 50501-3 #### [facility] ([id number]) [address], [address] [place], [place] [address]Qwqswrgvt/100 WBC (Bld)0.7 %NormalAultman Alliance Community Hospital Comment on above:Performed By: #### CBCA, CMP, 6-3, 2132-03, 07449-4 #### [facility] ([id number]) [address], [address] [place], [place] [address]Dyteswqydyq (Bld) [#/Vol]0.1 10*3/uLNormal0.0-0.4ProSalem City HospitalComment on above:Performed By: #### CBCA, CMP, 6-3, 2132-03, 06859-3 #### [facility] ([id number]) [address], [address] [place], [place] [address]Ilxkgdxcngn/100 WBC (Bld)1.1 %NormalAultman Alliance Community Hospital Comment on above:Performed By: #### CBCA, CMP, 6-3, 2132-03, 87611-5 #### [facility] ([id number]) [address], [address] [place], [place] [address]Drfglrsqoxk distribution width (RBC) [Ratio]13.8 %Normal 11.5-15.0ProSalem City HospitalComment on above:Performed By: #### CBCA, CMP, 3016-3, 9, 65938-9 #### [facility] ([id number]) [address], [address] [place], [place] [address]Ztywlqqtlq (Bld) [Volume fraction]37.0 %Okheyb34-55AskLzgyux [place] HospitalComment on above:Performed By: #### CBCA, CMP, 6-3, 9, 98986-2 #### [facility] ([id number]) [address], [address] [place], [place] [address]Ougpwtgwmp (Bld) [Mass/Vol]12.7 g/fWIdqrff80.7-15.5ProMedica Lizella HospitalComment on above:Performed By: #### CBCA, CMP, 6-3, 9, 50197-7 #### [facility] ([id number]) [address], [address] [place], [place] [address]Hofbrweojov (Bld) [#/Vol]1.2 10*3/uLNormal1.0-3.5ProMedica [facility] HospitalComment on above:Performed By: #### CBCA, CMP, 6-3, 2132-03, 63417-7 #### [facility] ([id number]) [address], [address] [place], [place] [address]Uohyioqzjss/100 WBC (Bld)15.4 %NormalProMemorial Health System Hospital Comment on above:Performed By: #### CBCA, CMP, 6-3, 9, 45863-6 #### [facility] ([id number]) [address], [address] [place], [place] [address]SFW (RBC) [Entitic mass]31.9 apAohqoy53-93AeiOatude [place] HospitalComment on above:Performed By: #### CBCA, CMP, 6-3, 9, 42705-2 #### [facility] ([id number]) [address], [address] [place], [place] [address]UXXE (RBC) [Mass/Vol]34.3 g/cDCzyizh64-69KhiVahccg [place] HospitalComment on above:Performed By: #### CBCA, CMP, 3016-3, 9, 01167-1 #### [facility] ([id number]) [address], [address] [place], [place] [address]QKP (RBC) [Entitic vol]93 kGAyngxw26-669OhfLaksuc [place] HospitalComment on above:Performed By: #### CBCA, CMP, 6-3, 2132-03, 41975-4 #### [facility] ([id number]) [address], [address] [place], [place] [address]Rtxseelrz (Bld) [#/Vol]0.8 10*3/uLNormal0-0.9ProMemorial Health System HospitalComment on above:Performed By: #### CBCA, CMP, 6-3, 9, 68145-3 #### [facility] ([id number]) [address], [address] [place], [place] [address]Fctgwgocj/100 WBC (Bld)11.2 %NormalAultman Alliance Community Hospital Comment on above:Performed By: #### CBCA, CMP, 3016-3, 9, 52199-9 #### [facility] ([id number]) [address], [address] [place], [place] [address]Sxxlasdemnh/100 WBC (Bld)71.6 %NormalAultman Alliance Community Hospital Comment on above:Performed By: #### CBCA, CMP, 3016-3, 9, 45838-6 #### [facility] ([id number]) [address], [address] [place], [place] [address]Hqbiabyj mean volume (Bld) [Entitic vol]7.8 fLNormal7-12 [facility] HospitalComment on above:Performed By: #### CBCA, CMP, 3016-3, 2131-9, 66544-5 #### [facility] ([id number]) [address], [address] [place], [place] [address]Iphzotzis (Bld) [#/Vol]392 10*3/eSBrlrgq643-516SimVrscvn [facility] HospitalComment on above:Performed By: #### CBCA, CMP, 6-3, 9, 05398-1 #### [facility] ([id number]) [address], [address] [place], [place] [address]GFQ COUNT3.98 X10E12/LNormal3.80-5.20[facility] Comment on above:Performed By: #### CBCA, CMP, 6-3, 9, 12719-7 #### [facility] ([id number]) [address], [address] [place], [place] [address]HHB (Bld) [#/Vol]7.5 10*3/uLNormal4.0-11.0[facility] HospitalComment on above:Performed By: #### CBCA, CMP, 6-3, 9, 90974-9 #### [facility] ([id number]) [address], [address] [place], [place] [address]KETMGGGLJCVLR METABOLIC PANELon 76-65-2650Glwmtun [Mass/Vol]3.8 g/dLNormal3.2-5.3[facility] HospitalComment on above:Performed By: #### CBCA, CMP, 3016-3, 9, 36250-2 #### [facility] ([id number]) [address], [address] [place], [place] [address]WYN [Catalytic activity/Vol]56 U/LLnpecx97-232MpkDuktnv [facility] HospitalComment on above:Performed By: #### CBCCedric, CMP, 3016-3, 9, 12146-6 #### [facility] ([id number]) [address], [address] [place], [place] [address]LQT [Catalytic activity/Vol]9 U/LNormal0-31ProMedKettering Health Main Campus HospitalComment on above:Performed By: #### QUEENIE, CMP, 6-3, 9, 65483-1 #### [facility] ([id number]) [address], [address] [place], [place] [address]Xpwvc gap [Moles/Vol]6 mmol/LNormal5-15Pro[facility]ca [facility] Comment on above:Performed By: #### QUEENIE, CMP, 6-3, 2132-03, 93470-4 #### [facility] ([id number]) [address], [address] [place], [place] [address]SIW [Catalytic activity/Vol]14 U/LNormal0-41Pro[facility] HospitalComment on above:Performed By: #### QUEENIE, CMP, 6-3, 2132-03, 26951-7 #### [facility] ([id number]) [address], [address] [place], [place] [address]Pafevosfj [Mass/Vol]0.3 mg/dLNormal0.3-1.2ProMedKettering Health Main Campus HospitalComment on above:Performed By: #### CBCA, CMP, 6-3, 2132-03, 81210-1 #### [facility] ([id number]) [address], [address] [place], [place] [address]Rtgwhsw [Mass/Vol]9.6 mg/dLNormal8.5-10.5ProMedKettering Health Main Campus HospitalComment on above:Performed By: #### CBCA, CMP, 6-3, 9, 15333-8 #### [facility] ([id number]) [address], [address] [place], [place] [address]Vnejcowd [Moles/Vol]101 mmol/HVsncfw51-016MmfWebbin [place] HospitalComment on above:Performed By: #### JAIRON JEROME, 3016-3, 9, 89948-6 #### [facility] ([id number]) [address], [address] [place], [place] [address]WK2 [Moles/Vol]31 mmol/ROsholx80-31CilXwdkvsMercy Health [facility] Comment on above:Performed By: #### JAIRON JEROME, 6-3, 9, 22993-5 #### [facility] ([id number]) [address], [address] [place], [place] [address]Kluzrvsgvq [Mass/Vol]0.58 mg/dLNormal0.40-1.00ProSalem City HospitalComment on above:Result Comment: METHOD TRACEABLE TO IDMS STANDARD Performed By: #### JAIRON JEROME, 6-3, 9, 17805-8 #### [facility] ([id number]) [address], [address] [place], [place] [address]MHW/1.73 sq M.predicted among non-blacks MDRD (S/P/Bld) [Vol rate/Area]87 mL/min/{1.73_m2}Normal>59ProSalem City HospitalComment on above: Result Comment: Reported eGFR is based on the CKD-EPI 2020 equation that does not use a race coefficient.Performed By: #### QUEENIE, CMP, 3016-3, 9, 42072-7 #### [facility] ([id number]) [address], [address] [place], [place] [address]Jgzxvkl [Mass/Vol]96 mg/mPIfjpxm23-25BqvMnxwteAultman Alliance Community Hospital Comment on above:Performed By: #### SHANONA, CMP, 3016-3, 9, 37403-9 #### [facility] ([id number]) [address], [address] [place] [address]Erwrndicp [Moles/Vol]3.8 mmol/LNormal3.5-5.0Pro[facility] System HospitalComment on above:Performed By: #### JAIRON JEROME, 6-3, 2132-03, 29214-4 #### [facility] ([id number]) [address], [address] [place] [address]Fqcbdvd [Mass/Vol]7.1 g/dLNormal6.0-8.0[facility] Comment on above:Performed By: #### JAIRON JEROME, 3, 2132-03, 74902-4 #### [facility] ([id number]) [address], [address] [place] [address]Yewqlm [Moles/Vol]138 mmol/KRxcaum042-210YukYhaeuu [place] HospitalComment on above:Performed By: #### JAIRON JEROME, 3, 2132-03, 06441-6 #### [facility] ([id number]) [address], [address] [place] [address]Yjur nitrogen [Mass/Vol]18 mg/dLNormal5-27[facility] System HospitalComment on above:Performed By: #### JAIRON JEROME, 3015-3, 2132-03, 27405-0 #### [facility] ([id number]) [address], [address] [place] [address]JNV Qnon 13-16-3728AFP8.43 uIU/mLNormal0.49-4.67Pro[facility] System HospitalComment on above:Performed By: #### JAIRON JEROME, 6-3, 2132-03, 11837-8 #### [facility] ([id number]) [address], [address] [place] [address]RBEDLBM B12on 40-56-5159Idgkpdbms (Vitamin B12) [Mass/Vol]140 pg/dBZif237-779MczHxexed [place] HospitalComment on above:Performed By: #### JAIRON JEROME, 3016-3, 9, 24723-1 #### [facility] ([id number]) [address], [address] [place], [place] [address]Zryxfok D+Metabolites [Mass/Vol]on 99-47-6359NBTQEQF D 25 HYD TOT74.8 ng/qPMfbraj97-241MdgSdqsvs [place] HospitalComment on above:Result Comment: Vitamin D status 25 [place] Vitamin D Deficiency <20 ng/mL Insufficiency 20-29 ng/mL Sufficiency 30-100 ng/mL Toxicity >100 ng/mL NOTE: A pediatric reference range has not been established by the continuous miner of this kit. The [place] [employer] recommends a Vitamin D level of = or >20ng/mL in infants and children.Performed By: #### JAIRON JEROME, 3016-3, 9, 75027-9 #### [facility] ([id number]) [address], [address] [place], [place] [address]AJKTFBTUBIGPS METABOLIC PANELon 46-97-8431Lpbqmrw [Mass/Vol]3.7 g/dLNormal3.2-5.3PMercy Health St. Anne HospitalComment on above:Performed By: #### CMP #### [facility] ([id number]) [address], [address] [place], [place] [address]XAM [Catalytic activity/Vol]101 U/XRvajqt47-337XwlNqoxbh [place] HospitalComment on above:Performed By: #### CMP #### [facility] ([id number]) [address], [address] [place], [place] [address]STH [Catalytic activity/Vol]9 U/LNormal0-31PMercy [facility] HospitalComment on above:Performed By: #### CMP #### [facility] ([id number]) [address], [address] [place], [place] [address]Hampr gap [Moles/Vol]7 mmol/LNormal5-15[facility] Comment on above:Performed By: #### CMP #### [facility] ([id number]) [address], [address] [place], [place] [address]ESD [Catalytic activity/Vol]13 U/LNormal0-41Pro[facility] Hospitalca [facility] HospitalComment on above:Performed By: #### CMP #### [facility] ([id number]) [address], [address] [place], [place] [address]Lwxqcabev [Mass/Vol]0.3 mg/dLNormal0.3-1.2[facility] HospitalComment on above:Performed By: #### CMP #### [facility] ([id number]) [address], [address] [place], [place] [address]Mlxgtqy [Mass/Vol]9.6 mg/dLNormal8.5-10.5ProMeduab hospital highlands [facility] HospitalComment on above:Performed By: #### CMP #### [facility] ([id number]) [address], [address] [place], [place] [address]Aziyfbzw [Moles/Vol]100 mmol/MIqkxks80-641HngAyuvio [place] HospitalComment on above:Performed By: #### CMP #### [facility] ([id number]) [address], [address] [place], [place] [address]MF8 [Moles/Vol]33 mmol/HKkws53-75ZcrZgqtuq [facility] Comment on above:Performed By: #### CMP #### [facility] ([id number]) [address], [address] [place], [place] [address]Djckczifef [Mass/Vol]0.52 mg/dLNormal0.40-1.00ProVan [facility] County Hospitalca [facility] HospitalComment on above:Result Comment: METHOD TRACEABLE TO IDMS STANDARD Performed By: #### CMP #### [facility] ([id number]) [address], [address] [place], [place] [address]DUZ/1.73 sq M.predicted among non-blacks MDRD (S/P/Bld) [Vol rate/Area]89 mL/min/{1.73_m2}Normal>59[facility] HospitalComment on above: Result Comment: Reported eGFR is based on the CKD-EPI 2020 equation that does not use a race coefficient.Performed By: #### CMP #### [facility] ([id number]) [address], [address] [place], [place] [address]Whnttrx [Mass/Vol]92 mg/pQYlfiai75-21JacLzdoup [facility] Comment on above:Performed By: #### CMP #### [facility] ([id number]) [address], [address] [place], [place] [address]Zeqjkefer [Moles/Vol]3.8 mmol/LNormal3.5-5.0ProSalem City HospitalComment on above:Performed By: #### CMP #### [facility] ([id number]) [address], [address] [place], [place] [address]Uidohyb [Mass/Vol]6.7 g/dLNormal6.0-8.0[facility] Comment on above:Performed By: #### CMP #### [facility] ([id number]) [address], [address] [place], [place] [address]Vkgzvt [Moles/Vol]140 mmol/DUbtcok961-875ZqbDqufxx [place] HospitalComment on above:Performed By: #### CMP #### [facility] ([id number]) [address], [address] [place], [place] [address]Blkr nitrogen [Mass/Vol]11 mg/dLNormal5-27Pro[facility] HospitalComment on above:Performed By: #### CMP #### [facility] ([id number]) [address] [address], [address] [place], [place] [address]UKOC urinalysis dipstick onlyon 17-54-2722Zzracvgc Poct Urine BilirubinNegativeProAt[facility] Health SystemExternal Poct Urine BloodNegative ProMMonticello Hospital SystemExternal Poct Urine CharacterclearPMercy Hospital System External Poct Urine ColoryellowProAt[facility] Health SystemExternal Poct Urine GlucoseNegativeProOhio[facility] SystemExternal Poct Urine KetonesNegative [facility] Health SystemExternal Poct Urine Leukocyte EsteraseNegativeProOhiohealth [facility] SystemExternal Poct Urine NitriteNegativeProOhiohealth [facility] Hospital SystemExternal Poct Urine Ph8.5PMercy Hospital SystemExternal Poct Urine ProteinNegative [facility] SystemExternal Poct Urine Specific Gravity1.020ProCrystal Clinic Orthopedic CenterExternal Poct Urine Urobilinogen0.2PSpecial Care HospitalCBC AUTO DIFFon 36-04-3331GQEY #0.0 103/ulNormal0.0-0.1W[facility]ner Medical CenterComment on above:Performed By: #### JAIRON, CMADM #### [facility] [address] [address] [address] Nidhi Carringtonsophils/100 WBC (Bld)0.3 %Normal0.2-2.0[facility] Comment on above:Performed By: #### CMP, CMADM #### [facility] [address] [address] [address] Nidhi Romero #0.1 103/ulNormal0.0-0.7The [facility] HospitalComment on above: Performed By: #### CMP, CMADM #### [facility] [address] [address] [address] Nidhi Crooksosinophils/100 WBC (Bld)1.2 %Normal0.9-7.0The [facility] Comment on above:Performed By: #### CMP, CMADM #### [facility] [address] [address] [address] Nidhi Crooksrythrocyte distribution width (RBC) [Ratio]15.7 %Critically high 11.0-15.0The [facility] HospitalComment on above:Performed By: #### CMP, CMADM #### [facility] [address] [address] [address] Nidhi DawnHematocrit (Bld) [Volume fraction]28.5 %Critically low36.0-48.0 The [facility] HospitalComment on above:Performed By: #### CMP, CMADM #### [facility] [address] [address] [address] Nidhi DawnHemoglobin (Bld) [Mass/Vol]8.9 g/dLCritically low12.0-16.0The [facility] HospitalComment on above:Performed By: #### CMP, CMADM #### [facility] [address] [place] [address] Dr. Nidhi Killina #0.04 10e3/ulCritically high0.00-0.03The [facility] Comment on above:Performed By: #### CMP, CMADM #### [facility] [address] [address] [address] Nidhi Killian %0.7 %Critically high0.0-0.5The [facility] HospitalComment on above:Performed By: #### CMP, CMADM #### [facility] [address] [place] [address] Dr. Nidhi AvilaH #0.9 103/ulCritically low1.2-3.8The [facility] Comment on above:Performed By: #### CMP, CMADM #### [facility] [address] [place] [address] Dr. Nidhi Donmphocytes/100 WBC (Bld)15.6 %Critically low20.5-60.0The [facility] HospitalComment on above:Performed By: #### CMP, CMADM #### [facility] [address] [place] [address] Dr. Nidhi PrabhakarUAL DIFF REQNONormalThe [facility] HospitalComment on above: Performed By: #### CMP, CMADM #### [facility] [address] [place] [address] Dr. Nidhi Burrows (RBC) [Entitic mass]30.8 hxDlbqro33.7-34.0The [facility] HospitalComment on above:Performed By: #### CMP, CMADM #### [facility] [address] [place] [address] Dr. Nidhi Burrows (RBC) [Mass/Vol]31.2 g/zTZubwdu82.9-35.2The [facility]inauer HospitalComment on above:Performed By: #### CMP, CMADM #### [facility] [address] [place] [address] Dr. Nidhi Burrows (RBC) [Entitic vol]98.6 lSQxsjlg10.0-99.0The [facility] HospitalComment on above:Performed By: #### CMP, CMADM #### [facility] [address] [place] [address] Dr. Nidhi Franks #0.7 103/ulNormal0.3-0.8The [facility] HospitalComment on above:Performed By: #### CMP, CMADM #### [facility] [address] [place] [address] Dr. Nidhi Veeocytes/100 WBC (Bld)11.1 %Normal1.7-12.0The [facility] Comment on above:Performed By: #### CMP, CMADM #### [facility] [address] [place] [address] Dr. Nidhi Charles #4.2 103/ulNormal1.4-6.5The [facility] HospitalComment on above:Performed By: #### CMP, CMADM #### [facility] [address] [place] [address] Dr. Nidhi Jonesutrophils/100 WBC (Bld)71.1 %Ixkfgq41.0-75.0The [facility] HospitalComment on above:Performed By: #### CMP, CMADM #### [facility] [address] [place] [address] Dr. Yilan ChangPlatelet mean volume (Bld) [Entitic vol]8.5 fLCritically low 9.5-13.5The [facility] HospitalComment on above:Performed By: #### CMP, CMADM #### [facility] [address] [address] [address] Nidhi DawnPLT614 103/ulCritically hqcs217-668Srt [facility] HospitalComment on above:Performed By: #### CMP, CMADM #### [facility] [address] [address] [address] Nidhi DawnRBC2.89 106/ulCritically low4.20-5.40The [facility] HospitalComment on above:Performed By: #### CMP, CMADM #### [facility] [address] [place] [address] Dr. Nidhi DawnWBC5.8 103/ulNormal4.0-11.0[facility]ner Medical CenterComment on above: Performed By: #### CMP, CMADM #### [facility] [address] [place] [address] Dr. Nidhi DawnBasic Metabolic Panelon 17-40-8195Xeope gap [Moles/Vol]8.2 mmol/L Normal6.0-15.0[facility] NorthComment on above:Performed By: #### MARIO, FE and TIBC #### [facility] [address] [place] [address] USACalcium [Mass/Vol]9.1 mg/dLNormal8.6-10.3FCommunity Memorial HospitalComment on above:Performed By: #### MARIO, FE and TIBC #### [facility] [address] [place] [address] USAChloride [Moles/Vol]102 mmol/IQewcvo77-874LfxnssdmbSelect Medical Specialty Hospital - Cincinnati NorthComment on above:Performed By: #### MARIO, FE and TIBC #### [facility] [address] [place] [address] USACO2 [Moles/Vol]30.5 mmol/CVgivan37.0-31.0[facility] - [facility] NorthComment on above:Performed By: #### MARIO, FE and TIBC #### [facility] [address] [place] [address] USACreatinine [Mass/Vol]0.35 mg/dLLow0.60-1.20[facility] - [facility] NorthComment on above:Performed By: #### MARIO FE and TIBC #### [facility] [address] [place] [address] USACreatinine Clr Calc Wihytsxr29.59NormalSelect Medical Specialty Hospital - Cincinnati NorthComment on above:Result Comment: PERFORMED BY: [facility] [address] [place] [address] PATHOLOGIST RESEARCH PROJECT MANAGER CLARICE OSWALD M.D.Performed By: #### MARIO FE and TIBC #### [place] [address] USAGFR/1.73 sq M.predicted MDRD (S/P/Bld) [Vol rate/Area] mL/min/{1.73_m2}[facility] Ahuja Medical CenterComment on above: Performed By: #### MARIO FE and TIBC #### [place] [address] USAGlucose [Mass/Vol]104 mg/pOSvepip96-727SmumbbyqvSelect Medical Specialty Hospital - Cincinnati NorthComment on above:Result Comment: Random Glucose Reference Range is dependent on time and content of last meal. Glucose of more than 200 mg/dL in a nonstressed, ambulatory subject supports the diagnosis of Diabetes Mellitus. ADA recommended reference rangePerformed By: #### MARIO FE and TIBC #### [facility] [address] [place] [address] USAPotassium [Moles/Vol]3.7 mmol/LNormal3.5-5.1FCommunity Memorial HospitalComment on above:Performed By: #### MARIO FE and TIBC #### [facility] [address] [place] [address] USASodium [Moles/Vol]137 mmol/UAvekvw960-906QhsookgzqSelect Medical Specialty Hospital - Cincinnati NorthComment on above:Performed By: #### MARIO FE and TIBC #### [facility] [address] [place] [address] USAUrea nitrogen [Mass/Vol]10 mg/dLNormal7-25[facility] - [facility] NorthComment on above:Performed By: #### YAHIR MARTIN and TIBC #### [facility] [address] [place] [address] USABasophils Auto (Bld) [#/Vol]Ordered By: Yani Cyr on 42-65-2936Dikvuyymy (Bld) [#/Vol]0.0 10*3/uL0.0-0.2FCommunity Memorial HospitalBasophils/100 WBC Auto (Bld)Ordered By: Yani Cyr on 10-03-2022 Basophils/100 WBC (Bld)0.4 %.[facility] Cincinnati NorthCalcium [Mass/volume] in Serum or PlasmaOrdered By: Yani Cyr on 93-86-0496Vxedqbs [Mass/Vol]9.1 mg/dL8.6-10.3FCommunity Memorial HospitalCarbon dioxide, total [Moles/volume] in Serum or PlasmaOrdered By: Yani Cyr on 10-03-2022 CO2 [Moles/Vol]30.5 mmol/L21.0-31.0[facility] Cincinnati NorthChloride [Moles/volume] in Serum or PlasmaOrdered By: Yani Cyr on 58-10-9165Fxgorblv [Moles/Vol]102 mmol/N00-178HschaslozSelect Medical Specialty Hospital - Cincinnati NorthComplete Blood Count Auto Diffon 86-24-6930Tjrmyqdqv (Bld) [#/Vol]0.0 10*3/uLNormal0.0-0.2 [facility] - [facility] NorthComment on above:Result Comment: PERFORMED BY: [place] [address] PATHOLOGIST RESEARCH PROJECT MANAGER CLARICE OSWALD M.D.Performed By: #### YAHIR MARTIN and TIBC #### [facility] [address] [place] [address] USABasophils/100 WBC (Bld)0.4 %Normal.[facility] - Cincinnati NorthComment on above:Performed By: #### MARIO, FE and TIBC #### [place] [address] USAEosinophils (Bld) [#/Vol]0.1 10*3/uLNormal0.0-0.45 [facility] - Cincinnati NorthComment on above:Performed By: #### MARIO, FE and TIBC #### [place] [address] USAEosinophils/100 WBC (Bld)1.9 %Normal.[facility] - Cincinnati NorthComment on above:Performed By: #### MARIO, FE and TIBC #### [place] [address] USAErythrocyte distribution width (RBC) [Ratio]14.5 %Normal 11.9-15.3FCommunity Memorial HospitalComment on above:Performed By: #### MARIO, FE and TIBC #### [place] [address] USAHematocrit (Bld) [Volume fraction]25.7 %Low34.0-46.4 [facility] - [facility] NorthComment on above:Performed By: #### MARIO, FE and TIBC #### [place] [address] USAHemoglobin (Bld) [Mass/Vol]8.7 g/dLLow11.8-15.4FCommunity Memorial HospitalComment on above:Performed By: #### MARIO, FE and TIBC #### [place] [address] USALymphocytes (Bld) [#/Vol]1.1 10*3/uLNormal1.00-4.8 [facility] - Cincinnati NorthComment on above:Performed By: #### MARIO, FE and TIBC #### [place] [address] USALymphocytes/100 WBC (Bld)14.2 %Normal.[facility] - Cincinnati NorthComment on above:Performed By: #### MARIO, FE and TIBC #### [place] [address] USAMCH (RBC) [Entitic mass]31.5 ljRhlypt02.7-34.3FCommunity Memorial HospitalComment on above:Performed By: #### MARIO, FE and TIBC #### [facility] [address] (RBC) [Entitic vol]92.5 kUEyskez67-366BfvagdcdhSelect Medical Specialty Hospital - Cincinnati NorthComment on above:Performed By: #### MARIO, FE and TIBC #### [facility] [address] [place] [address] USAMean Corpuscular HGB Conc34.1 g/fDXyeweb62.0-35.0[facility] NorthComment on above:Performed By: #### MARIO, FE and TIBC #### [place] [address] USAMonocytes (Bld) [#/Vol]0.8 10*3/uLNormal0.0-0.8[facility] - [facility] NorthComment on above:Performed By: #### MARIO, FE and TIBC #### [facility] [address] [place] [address] USAMonocytes/100 WBC (Bld)10.5 %Normal.[facility] - Cincinnati NorthComment on above:Performed By: #### MARIO, FE and TIBC #### [facility] [address] [place] [address] USANeutrophils (Bld) [#/Vol]5.5 10*3/uLNormal1.8-7.7FCommunity Memorial HospitalComment on above:Performed By: #### MARIO, FE and TIBC #### [facility] [address] [place] [address] USANeutrophils/100 WBC (Bld)73.0 %Normal.[facility] - Cincinnati NorthComment on above:Performed By: #### MARIO, FE and TIBC #### [facility] [address] [place] [address] USANRBC%0.1 /100{WBC}Normal0-0.5FCommunity Memorial HospitalComment on above:Performed By: #### MARIO, FE and TIBC #### [facility] [address] [place] [address] USAPlatelet mean volume (Bld) [Entitic vol]7.5 fLNormal 6.3-10.7FCommunity Memorial HospitalComment on above:Performed By: #### MARIO, FE and TIBC #### [facility] [address] [place] [address] USAPlatelets (Bld) [#/Vol]322 10*3/kYLervwu716-265CqwjbmjzeSelect Medical Specialty Hospital - Cincinnati NorthComment on above:Performed By: #### MARIO, FE and TIBC #### [facility] [address] [place] [address] USARBC (Bld) [#/Vol]2.77 10*6/uLLow3.60-5.00[facility] - [facility] NorthComment on above:Performed By: #### MARIO, FE and TIBC #### [facility] [address] [place] [address] USAWBC (Bld) [#/Vol]7.6 10*3/uLNormal3.8-11.6FCommunity Memorial HospitalComment on above:Performed By: #### MARIO, FE and TIBC #### [place] [address] USACreatinine [Mass/volume] in Serum or PlasmaOrdered By: Yani Cyr on [id number] [Mass/Vol]0.35 mg/dL0.60-1.20[facility] NorthEosinophils Auto (Bld) [#/Vol]Ordered By: Yani Cyr on 19-42-1120Emvbmkasiub (Bld) [#/Vol]0.1 10*3/uL0.0-0.45[facility] NorthEosinophils/100 WBC Auto (Bld)Ordered By: Yani Cyr on 08-91-3697Khpwffiwqem/100 WBC (Bld)1.9 %.[facility] Erythrocyte distribution width Auto (RBC) [Ratio]Ordered By: Yani Cyr on 73-67-8834Gguyuazvesr distribution width (RBC) [Ratio]14.5 %11.9-15.3FCommunity Memorial HospitalGlucose [Mass/volume] in Serum or PlasmaOrdered By: Yani Cyr on 75-59-7447Nvjuyok [Mass/Vol]104 mg/gT33-879QmufuylieSelect Medical Specialty Hospital - Cincinnati NorthComment on above:ADA recommended reference rangeRandom Glucose Reference Range is dependent on time and content of last meal. Glucose of more than 200 mg/dL in a nonstressed, ambulatory subject supports the diagnosisof Diabetes Mellitus.Hematocrit Auto (Bld) [Volume fraction]Ordered By: Yani Cyr on 35-70-7711Rknxxelsxu (Bld) [Volume fraction]25.7 %34.0-46.4FCommunity Memorial HospitalHemoglobin [Mass/volume] in BloodOrdered By: Yani Cyr on 28-60-6410Algkhpquvt (Bld) [Mass/Vol]8.7 g/dL11.8-15.4FCommunity Memorial HospitalLaboratory - Chemistry and Chemistry - challengeOrdered By: Yani Cyr on 80-51-0909HTI/1.73 sq M.predicted MDRD (S/P/Bld) [Vol rate/Area]mL/min/{1.73_m2}[facility] NorthLeukocytes [#/volume] corrected for nucleated erythrocytes in Blood by Automated counOrdered By: Yani Cyr on 38-97-1234OML corrected for nucl RBC Auto (Bld) [#/Vol]7.6 10*3/uL3.8-11.6FCommunity Memorial HospitalLymphocytes Auto (Bld) [#/Vol] Ordered By: Yani Cyr on 33-26-4092Wdofisqlanv (Bld) [#/Vol]1.1 10*3/uL 1.00-4.8[facility] NorthLymphocytes/100 WBC Auto (Bld)Ordered By: Yani Cyr on 07-48-2622Dpzessfdgia/100 WBC (Bld)14.2 %.[facility] NorthMCH Auto (RBC) [Entitic mass]Ordered By: Yani Cyr on 18-57-3012EEC (RBC) [Entitic mass]31.5 pg24.7-34.3FCommunity Memorial HospitalMCHC Auto (RBC) [Mass/Vol]Ordered By: Yani Cyr on 46-42-8974XESF (RBC) [Mass/Vol]34.1 g/dL32.0-35.0[facility] NorthMCV Auto (RBC) [Entitic vol]Ordered By: Yani Cyr on 22-91-8865VBI (RBC) [Entitic vol]92.5 zD09-894RnexyqpanSelect Medical Specialty Hospital - Cincinnati NorthMonocytes Auto (Bld) [#/Vol] Ordered By: Yani Cyr on 04-48-1967Wktukdcqe (Bld) [#/Vol]0.8 10*3/uL0.0-0.8 [facility] NorthMonocytes/100 WBC Auto (Bld)Ordered By: Yani Cyr on 39-76-1091Uxsrozvem/100 WBC (Bld)10.5 %.[facility] NorthNeutrophils Auto (Bld) [#/Vol]Ordered By: Yani Cyr on 10-03-2022 Neutrophils (Bld) [#/Vol]5.5 10*3/uL1.8-7.7FCommunity Memorial Hospital Neutrophils/100 WBC Auto (Bld)Ordered By: Yani Cyr on 10-03-2022 Neutrophils/100 WBC (Bld)73.0 %.[facility] NorthNo Panel InformationOrdered By: Yani Cyr on 22-79-9109Xhtmpzkl Creatinine Clearance (Chem35.59[facility] NorthNucleated erythrocytes [Presence] in Blood by Automated countOrdered By: Yani Cyr on 82-10-2519Fdwnyhtaw RBC Auto Ql (Bld)0.1 /100{WBC}0-0.5FCommunity Memorial HospitalPlatelet mean volume Auto (Bld) [Entitic vol]Ordered By: Yani Cyr on 92-59-6805Qtbuclen mean volume (Bld) [Entitic vol]7.5 fL6.3-10.7FCommunity Memorial Hospital Platelets Auto (Bld) [#/Vol]Ordered By: Yani Cyr on 70-10-2511Wmraezxwj (Bld) [#/Vol]322 10*3/qI033-253GrmnksxohSelect Medical Specialty Hospital - Cincinnati NorthPotassium [Moles/volume] in Serum or PlasmaOrdered By: Yani Cyr on 10-03-2022 Potassium [Moles/Vol]3.7 mmol/L3.5-5.1FCommunity Memorial HospitalRBC Auto (Bld) [#/Vol]Ordered By: Yani Cyr on 82-11-7272VUF (Bld) [#/Vol]2.77 10*6/uL3.60-5.00[facility] Shriners Hospitalerum or plasma anion gap determinationOrdered By: Yani Cyr on 21-30-0303Ihcpn gap [Moles/Vol]8.2 mmol/L6.0-15.0[facility]riners Hospitalodium [Moles/volume] in Serum or PlasmaOrdered By: Yani Cyr on 76-51-9763Qsmgii [Moles/Vol]137 mmol/L 136-145[facility] NorthUrea nitrogen [Mass/volume] in Serum or PlasmaOrdered By: Yani Cyr on 99-90-7686Ozix nitrogen [Mass/Vol]10 mg/dL 7-25[facility] NorthWBC Auto (Bld) [#/Vol]Ordered By: Yani Cyr on 68-16-3751DUV (Bld) [#/Vol]7.6 10*3/uL3.8-11.6FCommunity Memorial HospitalXR hip LT min 2V(w/wo pelvis)*on 94-77-6590LK hip LT min 2V(w/wo pelvis)*[place] [address] XRay Report Signed Patient: Annamaria Garcia MR#: [id number] : 1935 Acct:[id number] Age/Sex: 87 / F ADM Date: 09/28/22 Loc: 4 Room: [address] [place] [address] Type: ADM IN Attending Dr: Yani Cyr [...] Forrester Jr., D.OPortillo10/03/2022 10:04 AM Dictation Location: [place] [address] Transcribed By: [facility] 10/03/22 1004 Dictated By: Josse Forrester Jr, DO 10/03/22 1003 Signed By: 10/03/22 1004NoOhioHealth Doctors HospitalHemoglobin and Hematocriton 12-82-9701Bpjeldeibf (Bld) [Volume fraction]21.3 %Low34.0-46.4FCommunity Memorial HospitalComment on above:Result Comment: PERFORMED BY: [place] [address] PATHOLOGIST RESEARCH PROJECT MANAGER CLARICE OSWALD M.D.Performed By: #### MARIO, FE and TIBC #### [facility] [address] [place] [address] USAHemoglobin (Bld) [Mass/Vol]7.3 g/dLLow11.8-15.4FCommunity Memorial HospitalComment on above:Performed By: #### MARIO, FE and TIBC #### [facility] [address] [place] [id number] USAComplete Blood Count Auto Diffon 42-16-1211Ddgopjixp (Bld) [#/Vol]0.0 10*3/uLNormal0.0-0.2FCommunity Memorial HospitalComment on above:Result Comment: PERFORMED BY: [place] [address] PATHOLOGIST RESEARCH PROJECT MANAGER CLARICE OSWALD M.D.Performed By: #### CBC #### [facility] [address] [place] [address] USABasophils/100 WBC (Bld)0.3 %Normal.[facility] - [facility] NorthComment on above:Performed By: #### CBC #### [facility] [address] [place] [address] USAEosinophils (Bld) [#/Vol]0.1 10*3/uLNormal0.0-0.45 [facility] NorthComment on above:Performed By: #### CBC #### [facility] [address] [place] [address] USAEosinophils/100 WBC (Bld)1.0 %Normal.[facility] - [facility] NorthComhelen newberry joy hospital on above:Performed By: #### CBC #### [facility] [address] [place] [address] USAErythrocyte distribution width (RBC) [Ratio]13.8 %Normal 11.9-15.3FCommunity Memorial HospitalComment on above:Performed By: #### CBC #### [facility] [address] [place] [address] USAHematocrit (Bld) [Volume fraction]21.8 %Low34.0-46.4 [facility] NorthComhelen newberry joy hospital on above:Performed By: #### CBC #### [facility] [address] [place] [id number] USAHemoglobin (Bld) [Mass/Vol]7.4 g/dLLow11.8-15.4FCommunity Memorial HospitalComment on above:Performed By: #### CBC #### [facility] [address] [place] [id number] USALymphocytes (Bld) [#/Vol]0.9 10*3/uLLow1.00-4.8[facility] NorthComhelen newberry joy hospital on above:Performed By: #### CBC #### [facility] [address] [place] [id number] USALymphocytes/100 WBC (Bld)12.7 %Normal.[facility] - Cincinnati NorthComment on above:Performed By: #### CBC #### [facility] [address] [place] [address] USAMCH (RBC) [Entitic mass]31.0 ylBmaonc65.7-34.3FCommunity Memorial HospitalComment on above:Performed By: #### CBC #### [facility] [address] [place] [address] USAMCV (RBC) [Entitic vol]91.8 wZPjyvxg66-796TaakwasjbSelect Medical Specialty Hospital - Cincinnati NorthComment on above:Performed By: #### CBC #### [facility] [address] [place] [address] USAMean Corpuscular HGB Conc33.8 g/hSNnusgs51.0-35.0[facility] NorthComment on above:Performed By: #### CBC #### [facility] [address] [place] [address] USAMonocytes (Bld) [#/Vol]1.0 10*3/uLHigh0.0-0.8[facility] NorthComment on above:Performed By: #### CBC #### [facility] [address] [place] [address] USAMonocytes/100 WBC (Bld)13.6 %Normal.[facility] - Cincinnati NorthComment on above:Performed By: #### CBC #### [facility] [address] [place] [address] USANeutrophils (Bld) [#/Vol]5.3 10*3/uLNormal1.8-7.7FCommunity Memorial HospitalComment on above:Performed By: #### CBC #### [facility] [address] [place] [address] USANeutrophils/100 WBC (Bld)72.4 %Normal.[facility] NorthComment on above:Performed By: #### CBC #### [facility] [address] [place] [address] USANRBC%0.0 /100{WBC}Normal0-0.5FCommunity Memorial HospitalComment on above:Performed By: #### CBC #### [facility] [address] [place] [address] USAPlatelet mean volume (Bld) [Entitic vol]8.0 fLNormal 6.3-10.7FCommunity Memorial HospitalComment on above:Performed By: #### CBC #### [facility] [address] [place] [address] USAPlatelets (Bld) [#/Vol]208 10*3/hJMvxfgm824-574ChzbsunwdSelect Medical Specialty Hospital - Cincinnati NorthComment on above:Performed By: #### CBC #### [facility] [address] [place] [address] USARBC (Bld) [#/Vol]2.37 10*6/uLLow3.60-5.00[facility] NorthComment on above:Performed By: #### CBC #### [facility] [address] [place] [address] USAWBC (Bld) [#/Vol]7.3 10*3/uLNormal3.8-11.6FCommunity Memorial HospitalComment on above:Performed By: #### CBC #### [facility] [address] [place] [address] USABasic Metabolic Panelon 73-16-9969Lytse gap [Moles/Vol]8.7 mmol/LNormal6.0-15.0[facility] NorthComment on above:Performed By: #### BMP, CBC #### [facility] [address] [place] [address] USACalcium [Mass/Vol]8.3 mg/dLLow8.6-10.3FCommunity Memorial HospitalComment on above:Performed By: #### BMP, CBC #### [facility] [address] [place] [address] USAChloride [Moles/Vol]111 mmol/YCzye38-891JyeegprkbSelect Medical Specialty Hospital - Cincinnati NorthComment on above:Performed By: #### BMP, CBC #### [facility] [address] [place] [address] USACO2 [Moles/Vol]26.5 mmol/LRprorx43.0-31.0[facility] NorthComment on above:Performed By: #### BMP, CBC #### [facility] [address] [place] [address] USACreatinine [Mass/Vol]0.37 mg/dLLow0.60-1.20[facility] - [facility] NorthComment on above:Performed By: #### BMP, CBC #### [facility] [address] [place] [address] USACreatinine Clr Calc Oupmqwds62.59NormalSelect Medical Specialty Hospital - Cincinnati NorthComment on above:Result Comment: PERFORMED BY: [place] [address] PATHOLOGIST RESEARCH PROJECT MANAGER CLARICE OSWALD M.D.Performed By: #### BMP, CBC #### [place] [address] USAGFR/1.73 sq M.predicted MDRD (S/P/Bld) [Vol rate/Area] mL/min/{1.73_m2}[facility]huja Medical CenterComment on above: Performed By: #### BMP, CBC #### [place] [address] USAGlucose [Mass/Vol]102 mg/eMDqztkz59-841WptbgxpbjSelect Medical Specialty Hospital - Cincinnati NorthComment on above:Result Comment: Random Glucose Reference Range is dependent on time and content of last meal. Glucose of more than 200 mg/dL in a nonstressed, ambulatory subject supports the diagnosis of Diabetes Mellitus. ADA recommended reference rangePerformed By: #### BMP, CBC #### [facility] [address] [place] [address] USAPotassium [Moles/Vol]4.2 mmol/LNormal3.5-5.1FCommunity Memorial HospitalComment on above:Performed By: #### BMP, CBC #### [place] [address] USASodium [Moles/Vol]142 mmol/NYssblh264-903McuaeqqnsSelect Medical Specialty Hospital - Cincinnati NorthComment on above:Performed By: #### BMP, CBC #### [facility] [address] [place] [address] USAUrea nitrogen [Mass/Vol]16 mg/dLNormal7-25[facility] - [facility] NorthComment on above:Performed By: #### BMP, CBC #### [facility] [address] [place] [address] USAComplete Blood Count Auto Diffon 87-75-8722Bbbqwbvsw (Bld) [#/Vol]0.0 10*3/uLNormal0.0-0.2FCommunity Memorial HospitalComment on above:Result Comment: PERFORMED BY: [place] [address] PATHOLOGIST RESEARCH PROJECT MANAGER CLARICE OSWALD M.D.Performed By: #### BMP, CBC #### [place] [address] USABasophils/100 WBC (Bld)0.3 %Normal.[facility] - Cincinnati NorthComment on above:Performed By: #### BMP, CBC #### [facility] [address] [place] [address] USAEosinophils (Bld) [#/Vol]0.0 10*3/uLNormal0.0-0.45 [facility] NorthComment on above:Performed By: #### BMP, CBC #### [place] [address] USAEosinophils/100 WBC (Bld)0.3 %Normal.[facility] - [facility] NorthComment on above:Performed By: #### BMP, CBC #### [place] [address] USAErythrocyte distribution width (RBC) [Ratio]14.1 %Normal 11.9-15.3FCommunity Memorial HospitalComment on above:Performed By: #### BMP, CBC #### [place] [address] USAHematocrit (Bld) [Volume fraction]22.3 %Low34.0-46.4 [facility] - [facility] NorthComment on above:Performed By: #### BMP, CBC #### [facility] [address] [place] [id number] USAHemoglobin (Bld) [Mass/Vol]7.8 g/dLLow11.8-15.4FCommunity Memorial HospitalComment on above:Performed By: #### BMP, CBC #### [facility] [address] [place] [address] USALymphocytes (Bld) [#/Vol]1.0 10*3/uLNormal1.00-4.8 [facility] - [facility] NorthComment on above:Performed By: #### BMP, CBC #### [facility] [address] [place] [id number] USALymphocytes/100 WBC (Bld)12.9 %Normal.[facility] NorthComment on above:Performed By: #### BMP, CBC #### [place] [address] USAMCH (RBC) [Entitic mass]31.9 qcUdnskp56.7-34.3FCommunity Memorial HospitalComment on above:Performed By: #### BMP, CBC #### [place] [id number] USAMCV (RBC) [Entitic vol]91.3 lFYnffsu01-866FkftgwqdpSelect Medical Specialty Hospital - Cincinnati NorthComhelen newberry joy hospital on above:Performed By: #### BMP, CBC #### [place] [id number] USAMean Corpuscular HGB Conc34.9 g/iFOrjacc72.0-35.0[facility] NorthComhelen newberry joy hospital on above:Performed By: #### BMP, CBC #### [facility] [address] [place] [id number] USAMonocytes (Bld) [#/Vol]1.1 10*3/uLHigh0.0-0.8[facility] NorthComhelen newberry joy hospital on above:Performed By: #### BMP, CBC #### [facility] [address] [place] [id number] USAMonocytes/100 WBC (Bld)13.3 %Normal.[facility] Regional Medical CenterComment on above:Performed By: #### BMP, CBC #### [facility] [address] [place] [address] USANeutrophils (Bld) [#/Vol]5.9 10*3/uLNormal1.8-7.7FCommunity Memorial HospitalComment on above:Performed By: #### BMP, CBC #### [facility] [address] [place] [address] USANeutrophils/100 WBC (Bld)73.2 %Normal.[facility] NorthComment on above:Performed By: #### BMP, CBC #### [facility] [address] [place] [address] USANRBC%0.0 /100{WBC}Normal0-0.5FCommunity Memorial HospitalComment on above:Performed By: #### BMP, CBC #### [facility] [address] [place] [address] USAPlatelet mean volume (Bld) [Entitic vol]8.2 fLNormal 6.3-10.7FCommunity Memorial HospitalComment on above:Performed By: #### BMP, CBC #### [place] [address] USAPlatelets (Bld) [#/Vol]182 10*3/rPCsomod710-657MjqkpxoaxSelect Medical Specialty Hospital - Cincinnati NorthComment on above:Performed By: #### BMP, CBC #### [facility] [address] [place] [address] USARBC (Bld) [#/Vol]2.44 10*6/uLLow3.60-5.00[facility] NorthComment on above:Performed By: #### BMP, CBC #### [facility] [address] [place] [address] USAWBC (Bld) [#/Vol]8.0 10*3/uLNormal3.8-11.6FCommunity Memorial HospitalComment on above:Performed By: #### BMP, CBC #### [place] [address] USAFerritinon 36-90-1809Dbgrmcnt [Mass/Vol]53.4 ng/mLNormal 11.0-306.8[facility] NorthComment on above:Order Comment: Comment add onResult Comment: PERFORMED BY: [place] [address] PATHOLOGIST RESEARCH PROJECT MANAGER CLARICE OSWALD M.D.Performed By: #### MARIO, FE and TIBC #### [facility] [address] [place], [place] [address] USAFerritin [Mass/volume] in Serum or PlasmaOrdered By: Mimi Artis on 97-33-9782Sidsthif [Mass/Vol]53.4 ng/mL11.0-306.8[facility] NorthHemoglobin and Hematocriton 19-69-1372Wgzyafhibs (Bld) [Volume fraction]25.5 %Low34.0-46.4FCommunity Memorial HospitalComment on above: Result Comment: PERFORMED BY: [place] [address] PATHOLOGIST RESEARCH PROJECT MANAGER CLARICE OSWALD M.D.Performed By: #### MARIO, FE and TIBC #### [facility] [address] [place], [place] [address] USAHemoglobin (Bld) [Mass/Vol]8.6 g/dLLow11.8-15.4FCommunity Memorial HospitalComment on above:Performed By: #### MARIO, FE and TIBC #### [facility] [address] [place], [place] [address] USAIron [Mass/volume] in Serum or PlasmaOrdered By: Mimi Artis on 72-01-7306Tpdd [Mass/Vol]20 ug/qR12-753GmknzrtmpSelect Medical Specialty Hospital - Cincinnati NorthIron and TIBC Profileon 09-30-2022% Iron Saturation7.0 %Zsi71-54FsokdixjoSelect Medical Specialty Hospital - Cincinnati NorthComment on above:Order Comment: Comment add onPerformed By: #### MARIO, FE and TIBC #### [facility] [address] [place], [place] [address] USAIron [Mass/Vol]20 ug/eXIid59-270BzsukrmdmSelect Medical Specialty Hospital - Cincinnati NorthComment on above:Order Comment: Comment add onPerformed By: #### MARIO, FE and TIBC #### [facility] [address] [place] [address] USATotal Iron Binding Smgnmgkp832 ug/bJQygajk574-213EslyazlefSelect Medical Specialty Hospital - Cincinnati NorthComment on above:Order Comment: Comment add onPerformed By: #### MARIO, FE and TIBC #### [facility] [address] [place] [address] USATransferrin [Mass/Vol]204 mg/cMOmswsj030-780NulinowlfSelect Medical Specialty Hospital - Cincinnati NorthComment on above:Order Comment: Comment add onPerformed By: #### MARIO, FE and TIBC #### [facility] [address] [place] [address] USAIron binding capacity [Mass/volume] in Serum or Plasma Ordered By: Mimi Artis on 86-02-5557Kyam binding capacity [Mass/Vol]286 ug/dL 255-450[facility] - [facility] NorthIron saturation [Mass Fraction] in Serum or PlasmaOrdered By: Mimi Artis on 90-63-1127Tild saturation [Mass fraction]7.0 %20-50[facility] NorthTransferrin [Mass/volume] in Serum or PlasmaOrdered By: Mimi Artis on 92-16-7038Uoyojsvwomm [Mass/Vol]204 mg/dL 203-362[facility] NorthBasic Metabolic Panelon 03-25-1478Mqhzg gap [Moles/Vol]12.9 mmol/LNormal6.0-15.0[facility] NorthComment on above:Performed By: #### BMP, SCAN CBC #### [facility] [address] [place] [address] USACalcium [Mass/Vol]8.9 mg/dLNormal8.6-10.3FCommunity Memorial HospitalComment on above:Performed By: #### BMP, SCAN CBC #### [facility] [address] [place] [address] USAChloride [Moles/Vol]108 mmol/HNynb81-893WtgykkiduSelect Medical Specialty Hospital - Cincinnati NorthComment on above:Performed By: #### BMP, SCAN CBC #### [facility] [address] [place] [address] USACO2 [Moles/Vol]21.4 mmol/IOeyklf25.0-31.0[facility] - [facility] NorthComment on above:Performed By: #### BMP, SCAN CBC #### [facility] [address] [place] [address] USACreatinine [Mass/Vol]0.56 mg/dLLow0.60-1.20[facility] - [facility] NorthComment on above:Performed By: #### BMP, SCAN CBC #### [facility] [address] [place] [address] USACreatinine Clr Calc Jguoshzy05.59NormalSelect Medical Specialty Hospital - Cincinnati NorthComment on above:Result Comment: PERFORMED BY: [place] [address] PATHOLOGIST RESEARCH PROJECT MANAGER CLARICE OSWALD M.D.Performed By: #### BMP, SCAN CBC #### [facility] [address] [place] [address] USAGFR/1.73 sq M.predicted MDRD (S/P/Bld) [Vol rate/Area] mL/min/{1.73_m2}[facility]huja Medical CenterComment on above: Performed By: #### BMP, SCAN CBC #### [facility] [address] [place] [id number] USAGlucose [Mass/Vol]118 mg/jIInmz72-753YfgsuxnfvSelect Medical Specialty Hospital - Cincinnati NorthComment on above:Result Comment: Random Glucose Reference Range is dependent on time and content of last meal. Glucose of more than 200 mg/dL in a nonstressed, ambulatory subject supports the diagnosis of Diabetes Mellitus. ADA recommended reference rangePerformed By: #### BMP, SCAN CBC #### [facility] [address] [place] [address] USAPotassium [Moles/Vol]4.3 mmol/LNormal3.5-5.1FCommunity Memorial HospitalComment on above:Performed By: #### BMP, SCAN CBC #### [facility] [address] [place] [address] USASodium [Moles/Vol]138 mmol/MNqdhrc301-871QiliholpaSelect Medical Specialty Hospital - Cincinnati NorthComment on above:Performed By: #### BMP, SCAN CBC #### [facility] [address] [place] [address] USAUrea nitrogen [Mass/Vol]16 mg/dLNormal7-25[facility] NorthComment on above:Performed By: #### BMP, SCAN CBC #### [facility] [address] [place] [address] USAPlatelet adequacy [Presence] in Blood by Light microscopy Ordered By: Mimi Artis on 58-38-8462Kpgkhpqtr LM Ql (Bld)[facility] OhioPlatelet morphology finding [Identifier] in BloodOrdered By: Mimi Artis on 00-51-1685Hfjesgva morphology finding Nom (Bld)NormalCameron Regional Medical Centeral [facility] NorthRBC morphologyOrdered By: Mimi Artis on 26-33-5077SOD morphology finding Nom (Bld)[facility] Hospitalcan and CBCon 88-07-2626Tpjahanki (Bld) [#/Vol]0.0 10*3/uLNormal0.0-0.2 [facility] NorthComment on above:Performed By: #### BMP, SCAN CBC #### [facility] [address] [place] [address] USABasophils/100 WBC (Bld)0.1 %Normal.[facility] - [facility] NorthComment on above:Performed By: #### BMP, SCAN CBC #### [facility] [address] [place] [address] USAEosinophils (Bld) [#/Vol]0.0 10*3/uLNormal0.0-0.45 [facility] NorthComment on above:Performed By: #### BMP, SCAN CBC #### [facility] [address] [place] [address] USAEosinophils/100 WBC (Bld)0.0 %Normal.[facility] - [facility] NorthComment on above:Performed By: #### BMP, SCAN CBC #### [facility] [address] [place] [address] USAErythrocyte distribution width (RBC) [Ratio]14.2 %Normal 11.9-15.3FCommunity Memorial HospitalComment on above:Performed By: #### BMP, SCAN CBC #### [facility] [address] [place] [address] USAHematocrit (Bld) [Volume fraction]27.0 %Low34.0-46.4 [facility] - [facility] NorthComment on above:Performed By: #### BMP, SCAN CBC #### [facility] [address] [place] [address] USAHemoglobin (Bld) [Mass/Vol]9.1 g/dLLow11.8-15.4FCommunity Memorial HospitalComment on above:Performed By: #### BMP, SCAN CBC #### [facility] [address] [place] [address] USALymphocytes (Bld) [#/Vol]0.9 10*3/uLLow1.00-4.8[facility] [place] NorthComment on above:Performed By: #### BMP, SCAN CBC #### [facility] [address] [place] [address] USALymphocytes/100 WBC (Bld)7.1 %Normal.[facility] - [place] NorthComment on above:Performed By: #### BMP, SCAN CBC #### [facility] [address] [place] [id number] USAMCH (RBC) [Entitic mass]30.9 jhHybonr32.7-34.3FCommunity Memorial HospitalComment on above:Performed By: #### BMP, SCAN CBC #### [facility] [address] [place] [id number] USAMCV (RBC) [Entitic vol]91.6 eZEcavcg77-576XrsajmnbcSelect Medical Specialty Hospital - [place] NorthComhelen newberry joy hospital on above:Performed By: #### BMP, SCAN CBC #### [facility] [address] [place] [id number] USAMean Corpuscular HGB Conc33.7 g/aMRpdcyv25.0-35.0[facility] - [place] NorthComment on above:Performed By: #### BMP, SCAN CBC #### [facility] [address] [place] [address] USAMonocytes (Bld) [#/Vol]1.7 10*3/uLHigh0.0-0.8[facility] - [place] NorthComment on above:Performed By: #### BMP, SCAN CBC #### [facility] [address] [place] [address] USAMonocytes/100 WBC (Bld)13.5 %Normal.[facility] - [place] NorthComment on above:Performed By: #### BMP, SCAN CBC #### [facility] [address] [place] [address] USANeutrophils (Bld) [#/Vol]10.2 10*3/uLHigh1.8-7.7FCommunity Memorial HospitalComment on above:Performed By: #### BMP, SCAN CBC #### [facility] [address] [place] [address] USANeutrophils/100 WBC (Bld)79.3 %Normal.[facility] - [place] NorthComment on above:Performed By: #### BMP, SCAN CBC #### [facility] [address] [place] [address] USANRBC%0.0 /100{WBC}Normal0-0.5FCommunity Memorial HospitalComment on above:Performed By: #### BMP, SCAN CBC #### [facility] [address] [place] [address] USAPlatelet EstimateNormalNormalNoOhioHealth Doctors HospitalComment on above:Performed By: #### BMP, SCAN CBC #### [facility] [address] [place] [address] USAPlatelet mean volume (Bld) [Entitic vol]8.0 fLNormal 6.3-10.7FCommunity Memorial HospitalComment on above:Performed By: #### BMP, SCAN CBC #### [facility] [address] [place] [address] USAPlatelet MorphologyNormalNormalUniversity Hospitals Ahuja Medical CenterComment on above:Result Comment: PERFORMED BY: [place] [address] PATHOLOGIST RESEARCH PROJECT MANAGER CLARICE OSWALD M.D.Performed By: #### BMP, SCAN CBC #### [facility] [address] [place] [address] USAPlatelets (Bld) [#/Vol]220 10*3/xCOduynv760-234TiunrmcneSelect Medical Specialty Hospital - [place] NorthComment on above:Performed By: #### BMP, SCAN CBC #### [facility] [address] [place] [address] USARBC (Bld) [#/Vol]2.95 10*6/uLLow3.60-5.00[facility] - [place] NorthComment on above:Performed By: #### BMP, SCAN CBC #### [facility] [address] [place] [address] USARBC morphology finding Nom (Bld)NormalNormalNormal [facility] - [place] NorthComment on above:Performed By: #### BMP, SCAN CBC #### [facility] [address] [place] [address] USAWBC (Bld) [#/Vol]12.9 10*3/uLHigh3.8-11.6FCommunity Memorial HospitalComment on above:Performed By: #### BMP, SCAN CBC #### [facility] [address] [place] [address] USAXR hip LT min 2V(w/wo pelvis)*on 93-28-3839ZW hip LT min 2V(w/wo pelvis)*[facility] [place] [address] [place] [address] XRay Report Signed Patient: Annamaria Garcia MR#: [id number] : 1935 Acct:[id number] Age/Sex: 87 / F ADM Date: 09/28/22 Loc: Room: [address] [place] [address] Type: ADM IN Attending Dr: Adama Kothari [...] Angie Francisco M.D.09/29/2022 11:29 AM Dictation Location: [facility]- Transcribed By: [facility] 09/29/22 1129 Dictated By: Angie Francisco MD 09/29/22 1127 Signed By: 09/29/22 1129NoOhioHealth Doctors HospitalABO AND RH TYPEon 09-28-2022 ABO and Rh group Nom (Bld)ABO Rh Typing A Rh PositiveOhio State East Hospital Comment on above:Performed By: #### CMP, CMADM #### [facility] [address] [place] [address] [address] Nidhi DawnAlbumin Levelon 69-52-3546Gpvtdeq [Mass/Vol]4.0 g/dLNormal3.5-5.7 [facility] [place] NorthComment on above:Result Comment: PERFORMED BY: [place] [address] PATHOLOGIST RESEARCH PROJECT MANAGER CLARICE OSWALD M.D.Performed By: #### MARIO, FE and TIBC #### [place] [address] USAAlbumin [Mass/volume] in Serum or Plasma by Bromocresol green (BCG) dye binding methoOrdered By: Bulmaro Moses on 49-16-6538Ghcptdk BCG dye [Mass/Vol]4.0 g/dL3.5-5.7FCommunity Memorial HospitalBasic Metabolic Panelon 83-96-1443Ssxqt gap [Moles/Vol]10.8 mmol/LNormal6.0-15.0 [facility] [place] NorthComment on above:Performed By: #### MARIO, FE and TIBC #### [facility] [address] [place] [address] USACalcium [Mass/Vol]9.0 mg/dLNormal8.6-10.3FCommunity Memorial HospitalComment on above:Performed By: #### MARIO, FE and TIBC #### [facility] [address] [place] [address] USAChloride [Moles/Vol]103 mmol/MIztnts77-346LbaonofwvSelect Medical Specialty Hospital - [place] NorthComment on above:Performed By: #### MARIO, FE and TIBC #### [place] [address] USACO2 [Moles/Vol]28.5 mmol/YRxprgb96.0-31.0[facility] - [place] NorthComment on above:Performed By: #### MARIO, FE and TIBC #### [place] [address] USACreatinine [Mass/Vol]0.40 mg/dLLow0.60-1.20[facility] - [place] NorthComment on above:Performed By: #### MARIO, FE and TIBC #### [place] [address] USACreatinine Clr Calc Sqavrxrg27.68NormalSelect Medical Specialty Hospital - [place] NorthComment on above:Result Comment: PERFORMED BY: [place] [address] PATHOLOGIST RESEARCH PROJECT MANAGER CLARICE OSWALD M.D.Performed By: #### MARIO, FE and TIBC #### [place] [address] USAGFR/1.73 sq M.predicted MDRD (S/P/Bld) [Vol rate/Area] mL/min/{1.73_m2}University Hospitals Ahuja Medical CenterComment on above: Performed By: #### MARIO, FE and TIBC #### [facility] [address] [place] [address] USAGlucose [Mass/Vol]143 mg/fYLvjo49-100GdkjtqyelSelect Medical Specialty Hospital - [place] NorthComment on above:Result Comment: Random Glucose Reference Range is dependent on time and content of last meal. Glucose of more than 200 mg/dL in a nonstressed, ambulatory subject supports the diagnosis of Diabetes Mellitus. ADA recommended reference rangePerformed By: #### MARIO FE and TIBC #### [facility] [address] [place] [address] USAPotassium [Moles/Vol]3.3 mmol/LLow3.5-5.1FCommunity Memorial HospitalComment on above:Performed By: #### MARIO FE and TIBC #### [facility] [address] [place] [address] USASodium [Moles/Vol]139 mmol/QFqpheu184-272UdawvlzqxSelect Medical Specialty Hospital - [place] NorthComhelen newberry joy hospital on above:Performed By: #### MARIO FE and TIBC #### [facility] [address] [place] [address] USAUrea nitrogen [Mass/Vol]8 mg/dLNormal7-25[facility] - [place] NorthComment on above:Performed By: #### MARIO FE and TIBC #### [facility] [address] [place] [address] USACT ABD/PELVIS WO CONon 86-35-8015WG ABD/PELVIS WO CONEXAM: CT ABD/PELVIS WO CON TECHNIQUE: Axial CT [...] Electronically authenticated by: RAVEN RENNER Date: 2022-09-27 22:38[facility] State East HospitalCT CSPINE WO CONon 84-66-6367XQ CSPINE WO CONEXAMINATION: CT CSPINE WO CON HISTORY: Unspecified fall COMPARISON: Cervical [...] Electronically authenticated by: SOPHIE SINGLETON Date: 2022-09-27 22:42[facility] East HospitalCT HEAD WO CONon 56-13-4426GK HEAD WO CONEXAMINATION: CT HEAD WO CON TECHNIQUE: Axial CT [...] Electronically authenticated by: RAVEN RENNER Date: 2022-09-27 22:43[facility] East HospitalCT [facility] WO CONon 91-82-1270SH [facility] WO CONEXAM: [facility] CON HISTORY: The patient is an 86-year-old female. [...] Electronically authenticated by: KANU BURK Date: 2022-09-27 22:42[facility] HospitalComplete Blood Count Auto Diffon 80-52-0083Xwdbvcymx (Bld) [#/Vol]0.0 10*3/uLNormal0.0-0.2FCommunity Memorial HospitalComment on above:Result Comment: PERFORMED BY: [place] [address] PATHOLOGIST RESEARCH PROJECT MANAGER CLARICE OSWALD M.D.Performed By: #### MARIO, FE and TIBC #### [place] [address] USABasophils/100 WBC (Bld)0.0 %Normal.[facility] [place] NorthComment on above:Performed By: #### MARIO, FE and TIBC #### [place] [address] USAEosinophils (Bld) [#/Vol]0.0 10*3/uLNormal0.0-0.45 [facility] - [place] NorthComment on above:Performed By: #### MARIO, FE and TIBC #### [place] [address] USAEosinophils/100 WBC (Bld)0.0 %Normal.[facility] [place] NorthComment on above:Performed By: #### MARIO, FE and TIBC #### [place] [address] USAErythrocyte distribution width (RBC) [Ratio]13.9 %Normal 11.9-15.3FCommunity Memorial HospitalComment on above:Performed By: #### MARIO, FE and TIBC #### [place] [address] USAHematocrit (Bld) [Volume fraction]33.9 %Low34.0-46.4 [facility] - [place] NorthComment on above:Performed By: #### MARIO, FE and TIBC #### [place] [address] USAHemoglobin (Bld) [Mass/Vol]11.5 g/dLLow11.8-15.4FCommunity Memorial HospitalComment on above:Performed By: #### MARIO, FE and TIBC #### [place] [address] USALymphocytes (Bld) [#/Vol]0.6 10*3/uLLow1.00-4.8[facility] - [place] NorthComment on above:Performed By: #### MARIO, FE and TIBC #### [place] [address] USALymphocytes/100 WBC (Bld)4.7 %Normal.[facility] - [place] NorthComment on above:Performed By: #### MARIO, FE and TIBC #### [address] (RBC) [Entitic mass]30.8 lmWtxjzx75.7-34.3FCommunity Memorial HospitalComment on above:Performed By: #### MARIO, FE and TIBC #### [address] (RBC) [Entitic vol]90.8 zXXgxbzz00-660BflokfusbSelect Medical Specialty Hospital - [place] NorthComment on above:Performed By: #### MARIO, FE and TIBC #### [place] [address] USAMean Corpuscular HGB Conc34.0 g/bZZetifw52.0-35.0[facility] - [place] NorthComment on above:Performed By: #### MARIO, FE and TIBC #### [place] [address] USAMonocytes (Bld) [#/Vol]0.9 10*3/uLHigh0.0-0.8[facility] - [place] NorthComment on above:Performed By: #### MARIO, FE and TIBC #### [place] [address] USAMonocytes/100 WBC (Bld)7.4 %Normal.[facility] [place] NorthComment on above:Performed By: #### MARIO, FE and TIBC #### [place] [address] USANeutrophils (Bld) [#/Vol]10.7 10*3/uLHigh1.8-7.7FCommunity Memorial HospitalComment on above:Performed By: #### MARIO, FE and TIBC #### [facility] [address] [place] [address] USANeutrophils/100 WBC (Bld)87.9 %Normal.[facility] [place] NorthComment on above:Performed By: #### MARIO, FE and TIBC #### [facility] [address] [place] [address] USANRBC%0.1 /100{WBC}Normal0-0.5FCommunity Memorial HospitalComment on above:Performed By: #### MARIO, FE and TIBC #### [facility] [address] [place] [address] USAPlatelet mean volume (Bld) [Entitic vol]8.0 fLNormal 6.3-10.7FCommunity Memorial HospitalComment on above:Performed By: #### MARIO, FE and TIBC #### [place] [address] USAPlatelets (Bld) [#/Vol]253 10*3/iQHiqvrs845-226HnxwbbsetSelect Medical Specialty Hospital - [place] NorthComment on above:Performed By: #### MARIO, FE and TIBC #### [facility] [address] [place] [address] USARBC (Bld) [#/Vol]3.73 10*6/uLNormal3.60-5.00[facility] [place] NorthComment on above:Performed By: #### MARIO, FE and TIBC #### [place] [address] USAWBC (Bld) [#/Vol]12.2 10*3/uLHigh3.8-11.6FCommunity Memorial HospitalComment on above:Performed By: #### MARIO, FE and TIBC #### [place] [address] USAECG 12 lead ECGon 33-08-9060BMC 12 lead ECGUK [facility] [place] [address] [place] [address] Electrocardiograph Report Signed Patient: Annamaria Garcia MR#: [id number] : 1935 Acct:[id number] Age/Sex: 87 / F ADM Date: 09/28/22 Loc: Room: [address] [place] [address] Type: ADM IN Attending Dr: Adama Kothari [...] ECGs available Confirmed by ESTEE KNIGHT MD ([facility]) on 09/28/2022 3:08:35 PM Referred By: Electronically Signed By:ESTEE KNIGHT MD Transcribed By: MUS Signed By Estee Knight MD 0 09/28/22 1508University Hospitals Ahuja Medical CenterER URINE PROFILEon 09-28-2022 Bilirubin Ql (U)NegativeNormalNEGATIVEWexner Medical CenterComment on above: Performed By: #### CMP, CMADM #### [facility] [address] [place] [address] Dr. Nidhi Sanchez (U)CLEARNormalCLEARWexner Medical CenterComment on above: Performed By: #### CMP, CMADM #### [facility] [address] [place] [address] Dr. Nidhi Rahman (U)LT. YELLOWNormalYELLOWWexner Medical CenterComment on above:Performed By: #### CMP, CMADM #### [facility] [address] [place] [address] Dr. Nidhi Hernandez micrscopic examination will be performed if indicated. NormalThe [facility] Bucyrus HospitalComment on above:Performed By: #### CMP, CMADM #### [facility] [address] [place] [address] Dr. Yilan ChangGlucose Ql (U)NegativeNormalNEGATIVEWexner Medical CenterComment on above:Performed By: #### CMP, CMADM #### [facility] [address] [place] [address] [address] Nidhi DawnHemoglobin Ql (U)[facility] Presbyterian Medical CenterNEGGrand Lake Joint Township District Memorial Hospital Comment on above:Performed By: #### CMP, CMADM #### [facility] [address] [place] [address] [address] Nidhi DawnKetones Ql (U)40 mg/dlAbnormalNEGGrand Lake Joint Township District Memorial Hospital Comment on above:Performed By: #### CMP, CMADM #### [facility] [address] [place] [address] [address] Nidhi DawnLEUKOCYTESNegativeNormalNEGATIVEWexner Medical CenterComment on above:Performed By: #### CMP, CMADM #### [facility] [address] [place] [address] [address] Nidhi Fordtrite Ql (U)NegativeNormalNEGATIVEWexner Medical CenterComment on above:Performed By: #### CMP, CMADM #### [facility] [address] [place] [address] [address] Nidhi DawnpH (U)7.0 [pH]Normal5-9The [facility] Bucyrus HospitalComment on above: Performed By: #### CMP, CMADM #### [facility] [address] [place] [address] [address] Nidhi DawnSPEC GRAVITY1.535Tdbbln3.005-<=1.025The [facility] Bucyrus HospitalComment on above:Performed By: #### CMP, CMADM #### [facility] [address] [place] [address] [address] Nidhi Humphrey PROTEINTRACENormalNEGATIVE/ TRACEThe [facility] Bucyrus HospitalComment on above:Performed By: #### CMP, CMADM #### [facility] [address] [place] [address] [address] Nidhi Kuo MICRO INDNOT INDICATEDNoSt. Francis Hospitale [facility] HospitalComment on above:Performed By: #### CMP, CMADM #### [facility] [address] [place] [address] [address] Nidhi Snyder Qn (U)0.2 {Lawrence'U}/dLNormal0.2 - 1.0The [facility] Bucyrus HospitalComment on above:Performed By: #### CMP, CMADM #### [facility] [address] [place] [address] [address] Nidhi DawnGlucose Glucometer (dC) [Mass/Vol]Ordered By: Juliet Green on 92-38-5401Kpjfkqi [Mass/Vol]107 mg/dLSelect Medical Specialty Hospital - [place] NorthComment on above:Random Glucose Reference Range is dependent on time and content of last meal. Glucose of more than 200 mg/dL in a nonstressed, ambulatory subject supports the diagnosis of Diabetes Mellitus.Glucose Poct Glucometerson 81-21-6203Uzmftrd [Mass/Vol]107 mg/dLUniversity Hospitals Ahuja Medical Center Comment on above:Result Comment: Random Glucose Reference Range is dependent on time and content of last meal. Glucose of more than 200 mg/dL in a nonstressed, ambulatory subject supports the diagnosis of Diabetes Mellitus. PERFORMED BY: [place] [address] PATHOLOGIST RESEARCH PROJECT MANAGER CLARICE OSWALD M.D.Performed By: #### GLULS #### Point of Care testing ,Laboratory - CoagulationOrdered By: Juliet Green on 72-53-7479IK Coag (PPP) [Time]13.1 s9.0-12.9[facility] - [place] NorthMagnesiumon 09-28-2022 Magnesium [Mass/Vol]1.9 mg/dLNormal1.9-2.7FCommunity Memorial Hospital Comment on above:Order Comment: Comment addResult Comment: PERFORMED BY: [place] [address] PATHOLOGIST RESEARCH PROJECT MANAGER CLARICE OSWALD M.D.Performed By: #### MG #### [place] [address] USAMagnesium [Mass/volume] in Serum or PlasmaOrdered By: Juliet Green on 02-32-3150Xrhfuslow [Mass/Vol]1.9 mg/dL1.9-2.7FCommunity Memorial HospitalPlatelet poor plasma international normalized ratio (INR) by coagulation assay (relatOrdered By: Juliet Gonzalesjenise on 00-01-3101ZVC Coag (PPP) [Relative time]1.1 {INR}[facility] [place] NorthComment on above:INR Therapeutic Range A) Pre- and Peroperative OAT started two weeks before surgery. NOT HIP SURGERY: 1.5 - 2.5 HIP SURGERY: 2 - 3B) Primary and secondary prevention of venous THROMBOSIS: 2 - 3C) Active venous thrombosis, pulmonary embolismand prevention of recurrent venous thrombosis: 2 - 3D) Prevention of arterial thromboembolismincluding patients with mechanical heart valves: 3 - 4.5 Prothrombin Time INRon 38-22-0801RTU Coag (PPP) [Relative time]1.1 {INR}Normal [facility] [place] NorthComment on above:Result Comment: INR Therapeutic Range A) Pre- and [...] heart valves: 3 - 4.5 PERFORMED BY: [place] [address] PATHOLOGIST RESEARCH PROJECT MANAGER CLARICE OSWALD M.D.Performed By: #### YAHIR MARTIN and NENA #### [facility] [address] [place], [place] [id number] USAPT Coag (PPP) [Time]13.1 sHigh9.0-12.9[facility] - [place] NorthComment on above:Performed By: #### YAHIR MARTIN and CHARUC #### [facility] [address] [place], [place] [address] USAVitamin B12on 74-69-7092Xxdssufnv (Vitamin B12) [Mass/Vol] 202 pg/fSModmdf321-033NzrkbqwivSelect Medical Specialty Hospital - [place] NorthComment on above:Result Comment: PERFORMED BY: [place] [address] PATHOLOGIST RESEARCH PROJECT MANAGER CLARICE OSWALD M.D.Performed By: #### B12 #### [place] [address] USAVitamin B12 ser/plasOrdered By: Mimi Artis on 09-28-2022 Cobalamin (Vitamin B12) [Mass/Vol]202 pg/vI123-713NvsawkvvsSelect Medical Specialty Hospital - [place] NorthVitamin D 25 Hydroxy,Tot+D2+D3on 62-09-1908Lnqmjsk D 25 OH (LC)33 ng/mL Normal.[facility] - [place] NorthComment on above:Result Comment: Reference Range: All Ages: Target levels 30 - 100Performed By: #### MARIO FE and TIBC #### [place] [address] USAVitamin D-2<1.0Normal.[facility] [place] [facility] Comment on above:Result Comment: This test was developed and its performance characteristics determined by [facility]. It has not been cleared or approved by the Food and Drug Administration.Performed By: #### MARIO, FE and TIBC #### [place] [address] USAVitamin D-333 ng/mLNormal.[facility] [place] NorthComment on above:Result Comment: This test was developed and its performance characteristics determined by [facility]. It has not been cleared or approved by the Food and Drug Administration. Performed at: [facility] [address] [place] [id number] Shank Sorter: Avel Dempsey MD, Phone: [phone] PERFORMED BY: [place] [address] PATHOLOGIST RESEARCH PROJECT MANAGER CLARICE OSWALD M.D.Performed By: #### MARIO FE and TIBC #### [place] [id number] USAXR femur LT 2V*on 57-69-8810EX femur LT 2V*[facility] [place] [address] [place] [address] XRay Report Signed Patient: Annamaria Garcia MR#: [id number] : 1935 Acct:[id number] Age/Sex: 87 / F ADM Date: 09/28/22 Loc: Room: [address] [place] [address] Type: ADM IN Attending Dr: Juliet Green MD Copies to: MD Juliet Lennon MD Ordering Provider: Bulmaro Moses MD Date of Service: 09/28/22 XR/XR femur LT 2V*: left fem head fx ([id number]) XR/XR low pelvis w/LT x-table hip: left [...] fractures or dislocation are seen within the lwnzo-jh-jxas. There is mild degenerative change at the knee with medial tibiofemoral joint compartment narrowing and minor tricompartment marginal spurring. There are no focal soft tissue findings. IMPRESSION: NO ACUTE BONY INJURY WITHIN THE NAZWA-UM-NZQG. Impression dictated by: Angie Francisco M.D.09/28/2022 7:21 AM Dictation Location: [place] [address] Transcribed By: [facility] 09/28/22 0721 Dictated By: Angie Francisco MD 09/28/22 0716 Signed By: 09/28/22 0721University Hospitals Ahuja Medical CenterCARDIAC CELESTINO ADMITon 37-59-2485VU [Catalytic activity/Vol]96 U/IWezcjz46-358Azn [facility] Comment on above:Performed By: #### CMP, CMADM #### [facility] [address] [place] [address] Dr. Nidhi Duque.MB [Mass/Vol]2.59 ng/mLNormal<=3.60The [facility] Comment on above:Performed By: #### CMP, CMADM #### [facility] [address] [place] [address] Dr. Nidhi DavisTROP8.6 pg/mLNormal4.0-51.3The [facility] HospitalComment on above:Result Comment: CUT-OFF POINTS HAVE BEEN ESTABLISHED BASED ON THE FOURTH UNIVERSAL DEFINITIONS OF MYOCARDIAL INFARCTION. THE UPPER REFERENCE LIMIT (URL) OF TROPONIN, DEFINED THE 99TH PERCENTILE OF cTnI DISTRIBUTION IN A REFERENCE POPULATION, HAS BEEN CONFIRMED THE DECISION THRESHOLD FOR AR DIAGNOSIS.Performed By: #### CMP, CMADM #### [facility] [address] [place] [address] Dr. Nidhi Watt75 ng/mLNormal9-82The [facility] HospitalComment on above: Performed By: #### CMP, CMADM #### [facility] [address] [place] [address] Dr. Nidhi Panda AUTO DIFFon 36-72-3191HZMO #0.0 103/ulNormal0.0-0.1The [facility] HospitalComment on above:Performed By: #### CBC #### [facility] [address] [place] [address] Dr. Nidhi Carringtonsophils/100 WBC (Bld)0.2 %Normal0.2-2.0[facility] Comment on above:Performed By: #### CBC #### [facility] [address] [place] [address] Dr. Nidhi Romero #0.0 103/ulNormal0.0-0.7The [facility] HospitalComment on above: Performed By: #### CBC #### [facility] [address] [place] [address] Dr. Nidhi Crooksosinophils/100 WBC (Bld)0.1 %Critically low0.9-7.0The [facility] Bucyrus HospitalComment on above:Performed By: #### CBC #### [facility] [address] [place] [address] Dr. Nidhi Crooksrythrocyte distribution width (RBC) [Ratio]13.2 %Qwkcwa32.0-15.0 The [facility] HospitalComment on above:Performed By: #### CBC #### [facility] [address] [place] [address] Dr. Nidhi DawnHematocrit (Bld) [Volume fraction]34.6 %Critically low36.0-48.0 The [facility] HospitalComhelen newberry [facility] on above:Performed By: #### CBC #### [facility] [address] [place] [address] Dr. Nidhi DawnHemoglobin (Bld) [Mass/Vol]11.7 g/dLCritically low12.0-16.0The [facility] HospitalComment on above:Performed By: #### CBC #### [facility] [address] [place] [address] Dr. Nidhi Killian #0.06 10e3/ulCritically high0.00-0.03[facility] Comment on above:Performed By: #### CBC #### [facility] [address] [place] [address] Dr. Nidhi Killian %0.4 %Normal0.0-0.5The [facility]ment on above: Performed By: #### CBC #### [facility] [address] [place] [address] Dr. Nidhi AvilaH #1.1 103/ulCritically low1.2-3.8The [facility] Comment on above:Performed By: #### CBC #### [facility] [address] [place] [address] Dr. Nidhi Donmphocytes/100 WBC (Bld)7.0 %Critically low20.5-60.0The [facility] HospitalComment on above:Performed By: #### CBC #### [facility] [address] [address] [address] Nidhi Shaffer DIFF REQNONormalThe [facility] HospitalComment on above: Performed By: #### CBC #### [facility] [address] [place] [address] Dr. Nidhi Burrows (RBC) [Entitic mass]31.0 faCboqeu07.7-34.0The [facility] HospitalComment on above:Performed By: #### CBC #### [facility] [address] [place] [address] Dr. Nidhi Burrows (RBC) [Mass/Vol]33.8 g/yRQogxag39.9-35.2The [facility] HospitalComment on above:Performed By: #### CBC #### [facility] [address] [place] [address] Dr. Nidhi Burrows (RBC) [Entitic vol]91.8 lDGlxqgq30.0-99.0[facility] CenterComment on above:Performed By: #### CBC #### [facility] [address] [place] [address] Dr. Nidhi Franks #1.1 103/ulCritically high0.3-0.8ThMount [facility]. [facility] Comment on above:Performed By: #### CBC #### [facility] [address] [place] [address] Dr. Nidhi Veeocytes/100 WBC (Bld)7.0 %Normal1.7-12.0[facility] Comment on above:Performed By: #### CBC #### [facility] [address] [place] [address] Dr. Nidhi Charles #13.1 103/ulCritically high1.4-6.5ThMount St. [facility] Comment on above:Performed By: #### CBC #### [facility] [address] [place] [address] Dr. Nidhi Jonesutrophils/100 WBC (Bld)85.3 %Critically high43.0-75.0The [facility] HospitalComment on above:Performed By: #### CBC #### [facility] [address] [place] [address] Dr. Nidhi DawnPlatelet mean volume (Bld) [Entitic vol]9.1 fLCritically low 9.5-13.5The [facility] HospitalComment on above:Performed By: #### CBC #### [facility] [address] [place] [address] Dr. Nidhi DawnPLT274 103/njJyhfhs273-098Pjh [facility] HospitalComment on above: Performed By: #### CBC #### [facility] [address] [place] [address] Dr. Nidhi DawnRBC3.77 106/ulCritically low4.20-5.40The [facility] HospitalComment on above:Performed By: #### CBC #### [facility] [address] [place] [address] Dr. Nidhi DawnWBC15.4 103/ulCritically high4.0-11.0The [facility] HospitalComment on above:Performed By: #### CBC #### [facility] [address] [place] [address] Dr. Nidhi DawnMAGNESIUMon [id number] [Mass/Vol]1.6 mg/dLCritically low 1.8-2.4The [facility] on above:Performed By: #### CBC #### [facility] [address] [place] [address] Dr. Nidhi DawnPROF 14(COMP METB)on [id number] [Mass/Vol]3.6 g/dLNormal 3.4-5.0The [facility] HospitalComment on above:Performed By: #### CMP, CMADM #### [facility] [address] [place] [address] Dr. Nidhi DawnAlbumin/Globulin [Mass ratio]1.2 {ratio}NormalThe [facility] HospitalComment on above:Performed By: #### CMP, CMADM #### [facility] [address] [place] [address] Dr. Yilan ChangALP [Catalytic activity/Vol]60 U/IHqpeoz78-889Nwc [facility] HospitalComment on above:Performed By: #### CMP, CMADM #### [facility] [address] [address] [address] Nidhi RuddT [Catalytic activity/Vol]18 U/QKzjztc26-18Mas [facility] HospitalComment on above:Performed By: #### CMP, CMADM #### [facility] [address] [address] [address] Nidhi Chaconon gap [Moles/Vol]9.3 mmol/LNormalThe [facility] HospitalComment on above:Performed By: #### CMP, CMADM #### [facility] [address] [place] [address] Dr. Nidhi DawnAST [Catalytic activity/Vol]19 U/VZfvbti92-36Hyf [facility] HospitalComment on above:Performed By: #### CMP, CMADM #### [facility] [address] [place] [address] Dr. Nidhi DawnBilirubin [Mass/Vol]0.4 mg/dLNormal0.2-1.0The [facility] Comment on above:Performed By: #### CMP, CMADM #### [facility] [address] [place] [address] Dr. Nidhi DawnCalcium [Mass/Vol]8.8 mg/dLNormal8.5-10.1The [facility] Comment on above:Performed By: #### CMP, CMADM #### [facility] [address] [address] [address] Nidhi DawnChloride [Moles/Vol]104 mmol/XKnictp03-730Lfy [facility] Comment on above:Performed By: #### CMP, CMADM #### [facility] [address] [place] [address] Dr. Nidhi DawnCO2 [Moles/Vol]30.6 mmol/BSkzegd43.0-32.0The [facility] Comment on above:Performed By: #### CMP, CMADM #### [facility] [address] [place] [address] Dr. Nidhi DawnCreatinine [Mass/Vol]0.43 mg/dLCritically low0.55-1.02The [facility] HospitalComment on above:Performed By: #### CMP, CMADM #### [facility] [address] [address] [address] Nidhi CrooksGFR-AF GREEK>60Normal>=60The [facility] HospitalComment on above:Performed By: #### CMP, CMADM #### [facility] [address] [address] [address] Nidhi CrooksGFR-NON AF GREEK>60Normal>=60The [facility] HospitalComment on above:Performed By: #### CMP, CMADM #### [facility] [address] [address] [address] Nidhi DawnGlobulin (S) [Mass/Vol]3.0 g/dLNormalThe [facility] HospitalComment on above:Performed By: #### CMP, CMADM #### [facility] [address] [address] [address] Nidhi DawnGlucose [Mass/Vol]152 mg/dLCritically sfhv03-210Lie [facility] HospitalComment on above:Performed By: #### CMP, CMADM #### [facility] [address] [address] [address] Nidhi DawnPotassium [Moles/Vol]2.9 mmol/LCritically low3.5-5.1The [facility] HospitalComment on above:Performed By: #### CMP, CMADM #### [facility] [address] [address] [address] Nidhi DawnProtein [Mass/Vol]6.6 g/dLNormal6.4-8.2The [facility] Comment on above:Performed By: #### CMP, CMADM #### [facility] [address] [address] [address] Nidhi DawnSodium [Moles/Vol]140 mmol/TJfsktn001-422Knq [facility] Comment on above:Performed By: #### CMP, CMADM #### [facility] [address] [place], [place] [address] Dr. Nidhi Macedo nitrogen [Mass/Vol]5.0 mg/dLCritically low7.0-18.0The [facility] HospitalComment on above:Performed By: #### CMP, CMADM #### [facility] [address] [place], [place] [address] Dr. Nidhi Macedo nitrogen/Creatinine [Mass ratio]11.6 mg/mgNormalThe [facility] HospitalComment on above:Performed By: #### CMP, CMADM #### [facility] [address] [place], [place] [address] Dr. Nidhi DawnCT PELVIS WO CONon [id number] PELVIS WO CONEXAMINATION: CT PELVIS WO CON HISTORY: Pain ; acute posterior [...] Electronically authenticated by: TAYLOR PENA Date: 2022-05-02 16:39NormProMedica Defiance Regional Hospitale [facility] HospitalT4 LABCORPon [id number] [Mass/Vol]6.9 ug/dLNormal4.5-12.0The [facility] HospitalComment on above:Performed By: #### CBC #### [facility] [address] [place] [address] Dr. Nidhi ZayasC AUTO DIFFon [id number] #0.0 103/ulNormal0.0-0.1The [facility] HospitalComment on above:Performed By: #### CBC #### [facility] [address] [place] [address] Dr. Nidhi DawnBasophils/100 WBC (Bld)0.4 %Normal0.2-2.0The [facility] Comment on above:Performed By: #### CBC #### [facility] [address] [address] [address] Nidhi Romero #0.2 103/ulNormal0.0-0.7The [facility] HospitalComment on above: Performed By: #### CBC #### [facility] [address] [place] [address] Dr. Nidhi Crooksosinophils/100 WBC (Bld)3.1 %Normal0.9-7.0The [facility] Comment on above:Performed By: #### CBC #### [facility] [address] [place] [address] Dr. Nidhi Crooksrythrocyte distribution width (RBC) [Ratio]13.6 %Kdeyue40.0-15.0 The [facility] HospitalComment on above:Performed By: #### CBC #### [facility] [address] [place] [address] Dr. Nidhi DawnHematocrit (Bld) [Volume fraction]30.8 %Critically low36.0-48.0 The [facility] HospitalComment on above:Performed By: #### CBC #### [facility] [address] [address] [address] Nidhi DawnHemoglobin (Bld) [Mass/Vol]10.3 g/dLCritically low12.0-16.0The [facility] HospitalComment on above:Performed By: #### CBC #### [facility] [address] [address] [address] Nidhi Killian #0.04 10e3/ulCritically high0.00-0.03The [facility] Comment on above:Performed By: #### CBC #### [facility] [address] [address] [address] Nidhi Killian %0.6 %Critically high0.0-0.5The [facility] HospitalComment on above:Performed By: #### CBC #### [facility] [address] [address] [address] Nidhi Guaman #1.3 103/ulNormal1.2-3.8The [facility] HospitalComment on above:Performed By: #### CBC #### [facility] [address] [address] [address] Nidhi Avilahocytes/100 WBC (Bld)18.3 %Critically low20.5-60.0The [facility] Hospitalment on above:Performed By: #### CBC #### [facility] [address] [address] [address] Nidhi PrabhakarUAL DIFF REQNONormalThe [facility] HospitalComment on above: Performed By: #### CBC #### [facility] [address] [address] [address] Nidhi Burrows (RBC) [Entitic mass]31.0 fcGtydjt08.7-34.0The [facility] Hospitalment on above:Performed By: #### CBC #### [facility] [address] [address] [address] Nidhi Burrows (RBC) [Mass/Vol]33.4 g/tPShxyfu18.9-35.2The [facility] HospitalComment on above:Performed By: #### CBC #### [facility] [address] [address] [address] Nidhi Haro (RBC) [Entitic vol]92.8 pRHlwkfq18.0-99.0The [facility] HospitalComment on above:Performed By: #### CBC #### [facility] [address] [place] [address] Dr. Nidhi Franks #1.0 103/ulCritically high0.3-0.8The [facility] Comment on above:Performed By: #### CBC #### [facility] [address] [place] [address] Dr. Nidhi Veeocytes/100 WBC (Bld)13.7 %Critically high1.7-12.0The [facility] HospitalComment on above:Performed By: #### CBC #### [facility] [address] [place] [address] Dr. Nidhi Charles #4.5 103/ulNormal1.4-6.5The [facility] HospitalComment on above:Performed By: #### CBC #### [facility] [address] [place] [address] Dr. Nidhi Jonesutrophils/100 WBC (Bld)63.9 %Jyuyfm16.0-75.0The [facility] HospitalComment on above:Performed By: #### CBC #### [facility] [address] [place] [address] Dr. Nidhi Ahnlet mean volume (Bld) [Entitic vol]9.6 fLNormal9.5-13.5The [facility] HospitalComment on above:Performed By: #### CBC #### [facility] [address] [place] [address] Dr. Nidhi BarthT228 103/mtPdrgyj039-274Ytb [facility] HospitalComment on above: Performed By: #### CBC #### [facility] [address] [place] [address] Dr. Nidhi DawnRBC3.32 106/ulCritically low4.20-5.40The [facility] HospitalComment on above:Performed By: #### CBC #### [facility] [address] [place] [address] Dr. Nidhi DawnWBC7.0 103/ulNormal4.0-11.0The [facility] HospitalComment on above: Performed By: #### CBC #### [facility] [address] [place] [address] Dr. Nidhi DawnCULTURE URINEon [id number] URINEIsolate 1 Proteus mirabilis >100,000 cfu/ml of Isolate [...] <=0.12 S F Nitrofurantoin 128 R F Trimethoprim/Sulfamethoxazole <=20 S F ORGANISM 2 Escherichia coli [...] <=0.12 S F Nitrofurantoin <=16 S F Trimethoprim/Sulfamethoxazole <=20 S FNormalThe [facility] HospitalComment on above:Performed By: #### CMP, CMADM #### [facility] [address] [place] [address] Dr. Nidhi DawnPROF CHEM 8 (BAS METB)on [id number] gap [Moles/Vol]8.8 mmol/LNormalThe [facility] HospitalComment on above:Performed By: #### CMP, CMADM #### [facility] [address] [address] [address] Nidhi DawnCalcium [Mass/Vol]8.7 mg/dLNormal8.5-10.1The [facility] Comment on above:Performed By: #### CMP, CMADM #### [facility] [address] [place] [address] Dr. Nidhi DawnChloride [Moles/Vol]101 mmol/PKsyjbd41-469Dwj [facility] Comment on above:Performed By: #### CMP, CMADM #### [facility] [address] [place] [address] Dr. Nidhi DawnCO2 [Moles/Vol]29.6 mmol/VPswovv16.0-32.0[facility] Comment on above:Performed By: #### CMP, CMADM #### [facility] [address] [place] [address] Dr. Nidhi DawnCreatinine [Mass/Vol]0.56 mg/dLNormal0.55-1.02The [facility] HospitalComment on above:Performed By: #### CMP, CMADM #### [facility] [address] [place] [address] Dr. Nidhi CrooksGFR-AF GREEK>60Normal>=60The [facility] HospitalComment on above:Performed By: #### CMP, CMADM #### [facility] [address] [place] [address] Dr. Nidhi CrooksGFR-NON AF GREEK>60Normal>=60The [facility] HospitalComment on above:Performed By: #### CMP, CMADM #### [facility] [address] [place] [address] Dr. Nidhi DawnGlucose [Mass/Vol]106 mg/yZZahedo09-147CtuWexner Medical Center Comment on above:Performed By: #### CMP, CMADM #### [facility] [address] [place] [address] Dr. Nidhi DawnPotassium [Moles/Vol]3.4 mmol/LCritically low3.5-5.1The [facility] HospitalComment on above:Performed By: #### CMP, CMADM #### [facility] [address] [place] [address] Dr. Nidhi Joshium [Moles/Vol]136 mmol/ZDnrttc090-536QfoWexner Medical Center Comment on above:Performed By: #### CMP, CMADM #### [facility] [address] [place] [address] Dr. Nidhi Macedo nitrogen [Mass/Vol]10.0 mg/dLNormal7.0-18.0The [facility] HospitalComment on above:Performed By: #### CMP, CMADM #### [facility] [address] [place] [address] Dr. Nidhi Macedo nitrogen/Creatinine [Mass ratio]17.9 mg/mgNormalThe [facility] HospitalComment on above:Performed By: #### CMP, CMADM #### [facility] [address] [place] [address] Dr. Nidhi Panda AUTO DIFFon [id number] #0.0 103/ulNormal0.0-0.1[facility] CenterComment on above:Performed By: #### CBC #### [facility] [address] [place] [address] Dr. Nidhi DawnBasophils/100 WBC (Bld)0.4 %Normal0.2-2.0[facility] Comment on above:Performed By: #### CBC #### [facility] [address] [place] [address] Dr. Nidhi Romero #0.1 103/ulNormal0.0-0.7The [facility] HospitalComment on above: Performed By: #### CBC #### [facility] [address] [place] [address] Dr. Nidhi Crooksosinophils/100 WBC (Bld)1.0 %Normal0.9-7.0The [facility] Comment on above:Performed By: #### CBC #### [facility] [address] [address] [address] Nidhi Crooksrythrocyte distribution width (RBC) [Ratio]13.6 %Orymwh79.0-15.0 [facility] CenterComment on above:Performed By: #### CBC #### [facility] [address] [place] [address] Dr. Nidhi DawnHematocrit (Bld) [Volume fraction]28.4 %Critically low36.0-48.0 The [facility] HospitalComment on above:Performed By: #### CBC #### [facility] [address] [place] [address] Dr. Nidhi DawnHemoglobin (Bld) [Mass/Vol]9.2 g/dLCritically low12.0-16.0The [facility] HospitalComment on above:Performed By: #### CBC #### [facility] [address] [place] [address] Dr. Nidhi Killian #0.04 10e3/ulCritically high0.00-0.03[facility] Comment on above:Performed By: #### CBC #### [facility] [address] [place] [address] Dr. Nidhi Killian %0.5 %Normal0.0-0.5ThLakeHealth [facility] on above: Performed By: #### CBC #### [facility] [address] [place] [address] Dr. Nidhi Guaman #1.1 103/ulCritically low1.2-3.8The [facility] Comment on above:Performed By: #### CBC #### [facility] [address] [place] [address] Dr. Nidhi Donmphocytes/100 WBC (Bld)13.6 %Critically low20.5-60.0[facility] on above:Performed By: #### CBC #### [facility] [address] [place] [address] Dr. Nidhi PrabhakarUAL DIFF REQNONormalThe [facility] HospitalComment on above: Performed By: #### CBC #### [facility] [address] [address] [address] Nidhi Burrows (RBC) [Entitic mass]30.0 waRphexo16.7-34.0The [facility] HospitalComment on above:Performed By: #### CBC #### [facility] [address] [address] [address] Nidhi Burrows (RBC) [Mass/Vol]32.4 g/lTHafwys36.9-35.2The [facility] HospitalComment on above:Performed By: #### CBC #### [facility] [address] [place] [address] Dr. Nidhi Burrows (RBC) [Entitic vol]92.5 qNQfrekg49.0-99.0The [facility] HospitalComment on above:Performed By: #### CBC #### [facility] [address] [place] [address] Dr. Nidhi Franks #0.9 103/ulCritically high0.3-0.8The [facility] Comment on above:Performed By: #### CBC #### [facility] [address] [address] [address] Nidhi Veeocytes/100 WBC (Bld)12.1 %Critically high1.7-12.0The [facility] HospitalComment on above:Performed By: #### CBC #### [facility] [address] [address] [address] Nidhi Charles #5.7 103/ulNormal1.4-6.5The [facility] HospitalComment on above:Performed By: #### CBC #### [facility] [address] [address] [address] Nidhi Jonesutrophils/100 WBC (Bld)72.4 %Hchkxy26.0-75.0The [facility] HospitalComment on above:Performed By: #### CBC #### [facility] [address] [place] [address] Dr. Nidhi Ahnlet mean volume (Bld) [Entitic vol]10.1 fLNormal9.5-13.5The [facility] HospitalComment on above:Performed By: #### CBC #### [facility] [address] [place] [address] Dr. Nidhi DawnPLT174 103/poGcwkxh761-014Zah [facility] HospitalComment on above: Performed By: #### CBC #### [facility] [address] [place] [address] Dr. Nidhi DawnRBC3.07 106/ulCritically low4.20-5.40The [facility] HospitalComment on above:Performed By: #### CBC #### [facility] [address] [place] [address] Dr. Nidhi DawnWBC7.8 103/ulNormal4.0-11.0The [facility] HospitalComment on above: Performed By: #### CBC #### [facility] [address] [place] [address] Dr. Nidih DawnPROF CHEM 8 (BAS METB)on [id number] gap [Moles/Vol]11.2 mmol/LNormalThe [facility] HospitalComment on above:Performed By: #### BMP #### [facility] [address] [place] [address] Dr. Nidhi DawnCalcium [Mass/Vol]8.4 mg/dLCritically low8.5-10.1The [facility] HospitalComment on above:Performed By: #### BMP #### [facility] [address] [place] [address] Dr. Nidhi DawnChloride [Moles/Vol]100 mmol/ODdsygf99-537Uoa [facility] Comment on above:Performed By: #### BMP #### [facility] [address] [place] [address] Dr. Nidhi DawnCO2 [Moles/Vol]27.4 mmol/SNhebcg10.0-32.0The [facility] Comment on above:Performed By: #### BMP #### [facility] [address] [place] [address] Dr. Nidhi DawnCreatinine [Mass/Vol]0.56 mg/dLNormal0.55-1.02The [facility] HospitalComment on above:Performed By: #### BMP #### [facility] [address] [address] [address] Nidhi CrooksGFR-AF GREEK>60Normal>=60The [facility] HospitalComment on above:Performed By: #### BMP #### [facility] [address] [address] [address] Nidhi CrooksGFR-NON AF GREEK>60Normal>=60The [facility] HospitalComment on above:Performed By: #### BMP #### [facility] [address] [address] [address] Nidhi DawnGlucose [Mass/Vol]113 mg/dLCritically vbde23-622Nzx [facility] HospitalComment on above:Performed By: #### BMP #### [facility] [address] [place] [address] Dr. Nidhi DawnPotassium [Moles/Vol]3.6 mmol/LNormal3.5-5.1The [facility] Comment on above:Performed By: #### BMP #### [facility] [address] [address] [address] Nidhi DawnSodium [Moles/Vol]135 mmol/LCritically bnf067-526Ral [facility] HospitalComment on above:Performed By: #### BMP #### [facility] [address] [address] [address] Nidhi DawnUrea nitrogen [Mass/Vol]14.0 mg/dLNormal7.0-18.0The [facility] HospitalComment on above:Performed By: #### BMP #### [facility] [address] [address] [address] Nidhi DawnUrea nitrogen/Creatinine [Mass ratio]25.0 mg/mgNormalThe [facility] HospitalComment on above:Performed By: #### BMP #### [facility] [address] [place] [address] Dr. Nidhi DawnCBC AUTO DIFFon [id number] #0.0 103/ulNormal0.0-0.1[facility] CenterComment on above:Performed By: #### CBC #### [facility] [address] [place] [address] Dr. Nidhi DawnBasophils/100 WBC (Bld)0.3 %Normal0.2-2.0[facility] on above:Performed By: #### CBC #### [facility] [address] [place] [address] Dr. Nidhi Romero #0.1 103/ulNormal0.0-0.7The [facility] HospitalComment on above: Performed By: #### CBC #### [facility] [address] [place] [address] Dr. Nidhi Crooksosinophils/100 WBC (Bld)0.8 %Critically low0.9-7.0The [facility] HospitalComment on above:Performed By: #### CBC #### [facility] [address] [place] [address] Dr. Nidhi Crooksrythrocyte distribution width (RBC) [Ratio]13.8 %Mrqxxb89.0-15.0 [facility] CenterComment on above:Performed By: #### CBC #### [facility] [address] [place] [address] Dr. Nidhi DawnHematocrit (Bld) [Volume fraction]30.1 %Critically low36.0-48.0 [facility] CenterComment on above:Performed By: #### CBC #### [facility] [address] [place] [address] Dr. Nidhi DawnHemoglobin (Bld) [Mass/Vol]10.1 g/dLCritically low12.0-16.0The [facility] HospitalComment on above:Performed By: #### CBC #### [facility] [address] [place] [address] Dr. Nidhi Killian #0.03 10e3/ulNormal0.00-0.03The [facility] HospitalComment on above:Performed By: #### CBC #### [facility] [address] [place] [address] Dr. Nidhi Killian %0.3 %Normal0.0-0.5The [facility] HospitalComment on above: Performed By: #### CBC #### [facility] [address] [place] [address] Dr. Nidhi Guaman #1.0 103/ulCritically low1.2-3.8The [facility] Comment on above:Performed By: #### CBC #### [facility] [address] [place] [address] Dr. Nidhi Avilahocytes/100 WBC (Bld)10.6 %Critically low20.5-60.0The [facility] HospitalComment on above:Performed By: #### CBC #### [facility] [address] [place] [address] Dr. Nidhi Shaffer DIFF REQNONormalThe [facility] HospitalComment on above: Performed By: #### CBC #### [facility] [address] [place] [address] Dr. Nidhi Burrows (RBC) [Entitic mass]30.7 auJjchtb91.7-34.0The [facility] HospitalComment on above:Performed By: #### CBC #### [facility] [address] [place] [address] Dr. Nidhi Burrows (RBC) [Mass/Vol]33.6 g/jTUbvolu88.9-35.2The [facility] HospitalComment on above:Performed By: #### CBC #### [facility] [address] [place] [address] Dr. Nidhi Burrows (RBC) [Entitic vol]91.5 rHZfvxme93.0-99.0The [facility] HospitalComment on above:Performed By: #### CBC #### [facility] [address] [place] [address] Dr. Nidhi Franks #1.0 103/ulCritically high0.3-0.8The [facility] Comment on above:Performed By: #### CBC #### [facility] [address] [place] [address] Dr. Nidhi Veeocytes/100 WBC (Bld)10.3 %Normal1.7-12.0The [facility] Comment on above:Performed By: #### CBC #### [facility] [address] [place] [address] Dr. Nidhi Charles #7.4 103/ulCritically high1.4-6.5The [facility] Comment on above:Performed By: #### CBC #### [facility] [address] [place] [address] Dr. Nidhi Jonesutrophils/100 WBC (Bld)77.7 %Critically high43.0-75.0The [facility] HospitalComment on above:Performed By: #### CBC #### [facility] [address] [place] [address] Dr. Nidhi Ahnlet mean volume (Bld) [Entitic vol]10.0 fLNormal9.5-13.5The [facility] HospitalComment on above:Performed By: #### CBC #### [facility] [address] [place] [address] Dr. Nidhi DawnPLT175 103/ewMiuevd319-613Wcd [facility] HospitalComment on above: Performed By: #### CBC #### [facility] [address] [place] [address] Dr. Nidhi DawnRBC3.29 106/ulCritically low4.20-5.40The [facility] HospitalComment on above:Performed By: #### CBC #### [facility] [address] [place] [address] Dr. Nidhi DawnWBC9.5 103/ulNormal4.0-11.0The [facility] HospitalComment on above: Performed By: #### CBC #### [facility] [address] [place] [address] Dr. Terrell ChangER URINE PROFILEon 99-76-1989Rkirgxeyu Ql (U)NegativeNormal NEGATIVEThe [facility] HospitalComment on above:Performed By: #### CMP, CMADM #### [facility] [address] [address] [address] Nidhi Colonarity (U)CLEARNormalCLEARWexner Medical CenterComment on above: Performed By: #### CMP, CMADM #### [facility] [address] [address] [address] Nidhi Rahman (U)YELLOWNormalYELLOWWexner Medical CenterComment on above: Performed By: #### CMP, CMADM #### [facility] [address] [address] [address] Nidhi Hernandez micrscopic examination will be performed if indicated. NormalWexner Medical CenterComment on above:Performed By: #### CMP, CMADM #### [facility] [address] [place] [address] Dr. Nidhi DawnGlucose Ql (U)NegativeNormalNEGATIVEWexner Medical CenterComment on above:Performed By: #### CMP, CMADM #### [facility] [address] [address] [address] Nidhi DawnHemoglobin Ql (U)MODERATEAbnormalNEGGrand Lake Joint [facility] District [facility] Hospital Comment on above:Performed By: #### CMP, CMADM #### [facility] [address] [address] [address] Nidhi Kumarones Ql (U)TRACEAbnormalNEGATIVEWexner Medical CenterComment on above:Performed By: #### CMP, CMADM #### [facility] [address] [address] [address] Nidhi DawnLEUKOCYTESMODERATEAbnormalNEGGrand Lake Joint [facility] District Memorial HospitalComhelen [facility] hospital on above:Performed By: #### CMP, CMADM #### [facility] [address] [address] [address] Nidhi DawnNitrite Ql (U)PositiveAbnormalNEGGrand Lake [facility] Hospital Comment on above:Performed By: #### CMP, CMADM #### [facility] [address] [address] [address] Nidhi DawnpH (U)[pH]Abnormal5-9[facility] CenterComment on above: Performed By: #### CMP, CMADM #### [facility] [address] [place] [address] Dr. Nidhi DawnProtein (U) [Mass/Vol]100 mg/dLAbnormalNEGATIVE/ TRACEThe [facility] HospitalComment on above:Performed By: #### CMP, CMADM #### [facility] [address] [place] [address] Dr. Nidhi DawnSPEC GRAVITY<=1.953Sgeuawns6.005-<=1.025The [facility] Comment on above:Performed By: #### CMP, CMADM #### [facility] [address] [place] [address] Dr. Nidhi Kuo MICRO INDINDICATEDNoSt. Francis Hospitale [facility] HospitalComment on above: Performed By: #### CMP, CMADM #### [facility] [address] [place] [address] Dr. Nidhi Snyder Qn (U)1.0 {Lawrence'U}/dLNormal0.2 - 1.0The [facility] HospitalComment on above:Performed By: #### CMP, CMADM #### [facility] [address] [place] [address] Dr. Nidhi Koenig T3on [id number] T31.84 pg/mlLCritically low2.18-3.98The [facility] HospitalComment on above:Performed By: #### CBC #### [facility] [address] [place] [address] Dr. Nidhi DawnPROSirisha CHEM 8 (BAS METB)on [id number] gap [Moles/Vol]10.9 mmol/LNormalThe [facility] HospitalComment on above:Performed By: #### CBC #### [facility] [address] [place] [address] Dr. Nidhi DawnCalcium [Mass/Vol]8.6 mg/dLNormal8.5-10.1The [facility] Comment on above:Performed By: #### CBC #### [facility] [address] [place] [address] Dr. Nidhi DawnChloride [Moles/Vol]102 mmol/NLbecdw27-174Uxu [facility] Comment on above:Performed By: #### CBC #### [facility] [address] [address] [address] Nidhi DawnCO2 [Moles/Vol]24.9 mmol/TOxxgff83.0-32.0The [facility] Comment on above:Performed By: #### CBC #### [facility] [address] [address] [address] Nidhi DawnCreatinine [Mass/Vol]0.42 mg/dLCritically low0.55-1.02The [facility] HospitalComment on above:Performed By: #### CBC #### [facility] [address] [place] [address] Dr. Nidhi CrooksGFR-AF GREEK>60Normal>=60The [facility] HospitalComment on above:Performed By: #### CBC #### [facility] [address] [address] [address] Nidhi CrooksGFR-NON AF GREEK>60Normal>=60The [facility] HospitalComment on above:Performed By: #### CBC #### [facility] [address] [address] [address] Nidhi DawnGlucose [Mass/Vol]103 mg/wQHlfpwt40-247Chf [facility] Comment on above:Performed By: #### CBC #### [facility] [address] [address] [address] Nidhi DawnPotassium [Moles/Vol]3.8 mmol/LNormal3.5-5.1The [facility] Comment on above:Performed By: #### CBC #### [facility] [address] [address] [address] Nidhi DawnSodium [Moles/Vol]134 mmol/LCritically lgy150-620Kph [facility] HospitalComment on above:Performed By: #### CBC #### [facility] [address] [address] [address] Nidhi DawnUrea nitrogen [Mass/Vol]14.0 mg/dLNormal7.0-18.0The [facility] HospitalComment on above:Performed By: #### CBC #### [facility] [address] [place] [address] Dr. Nidhi Macedo nitrogen/Creatinine [Mass ratio]33.3 mg/mgNoSelect Medical Specialty Hospital - Columbus SouthComment on above:Performed By: #### CBC #### [facility] [address] [address] [address] Nidhi Logan MICROSCOPIC ONLYon [id number]TCWK SEENThe [facility] HospitalComment on above:Performed By: #### CMP, CMADM #### [facility] [address] [place] [address] Dr. Nidhi Collado identified Cx Nom (U)INDICATEDOhio State East HospitalComment on above:Performed By: #### CMP, CMADM #### [facility] [address] [place] [address] Dr. Nidhi Ledezma SEENNormalNONE SEENTriHealth on above:Performed By: #### CMP, CMADM #### [facility] [address] [place] [address] Dr. Nidhi Alvarez LM Nom (Urine sed)NONE SEENNormalNONE SEENWexner Medical CenterComhelen [facility]berry [facility] hospital on above:Performed By: #### CMP, CMADM #### [facility] [address] [place] [address] Dr. Nidhi Lopezthelial cells LM Ql (Urine sed)RARENormalNONE SEEN /RAREWexner Medical CenterComhelen newberry joy hospital on above:Performed By: #### CMP, CMADM #### [facility] [address] [place] [address] Dr. Nidhi DaughertyACEAbnormalNONE SEENWexner Medical CenterComhelen [facility] hospital on above:Performed By: #### CMP, CMADM #### [facility] [address] [place] [address] Dr. Nidhi DawnStqakRLZ4-09Wimsjpob1-6Ugi Patrick HospitalComment on above:Performed By: #### CMP, CMADM #### [facility] [address] [place] [address] Dr. Nidhi DawnVmostZCH11-28RejnghuxFZOV SEENThe [facility] HospitalComhelen [facility] hospital on above: Performed By: #### CMP, CMADM #### [facility] [address] [place] [address] Dr. Nidhi ZayasC AUTO DIFFon [id number] #0.0 103/ulNormal0.0-0.1The [facility] HospitalComhelen newberry [facility] hospital on above:Performed By: #### CBC #### [facility] [address] [place] [address] Dr. Nidhi DawnBasophils/100 WBC (Bld)0.1 %Critically low0.2-2.0[facility] CenterComhelen newberry joy hospital on above:Performed By: #### CBC #### [facility] [address] [place] [address] Dr. Nidhi Romero #0.0 103/ulNormal0.0-0.7The [facility] HospitalComhelen [facility]berry [facility] hospital on above: Performed By: #### CBC #### [facility] [address] [place] [address] Dr. Nidhi Crooksosinophils/100 WBC (Bld)0.1 %Critically low0.9-7.0[facility] on above:Performed By: #### CBC #### [facility] [address] [place] [address] Dr. Nidhi Crooksrythrocyte distribution width (RBC) [Ratio]13.9 %Roxcvv13.0-15.0 [facility] CenterComhelen newberry [facility] hospital on above:Performed By: #### CBC #### [facility] [address] [place] [address] Dr. Nidhi DawnHematocrit (Bld) [Volume fraction]31.4 %Critically low36.0-48.0 [facility] CenterComhelen newberry [facility] hospital on above:Performed By: #### CBC #### [facility] [address] [place] [address] Dr. Nidhi DawnHemoglobin (Bld) [Mass/Vol]10.3 g/dLCritically low12.0-16.0The [facility] HospitalComment on above:Performed By: #### CBC #### [facility] [address] [place] [address] Dr. Nidhi Killian #0.03 10e3/ulNormal0.00-0.03The [facility] HospitalComment on above:Performed By: #### CBC #### [facility] [address] [place] [address] Dr. Nidhi Killian %0.3 %Normal0.0-0.5The [facility] HospitalComment on above: Performed By: #### CBC #### [facility] [address] [place] [address] Dr. Nidhi Guaman #1.3 103/ulNormal1.2-3.8The [facility] HospitalComment on above:Performed By: #### CBC #### [facility] [address] [place] [address] Dr. Nidhi Avilahocytes/100 WBC (Bld)13.5 %Critically low20.5-60.0The [facility] HospitalComment on above:Performed By: #### CBC #### [facility] [address] [place] [address] Dr. Nidhi PrabhakarUAL DIFF REQNONormalThe [facility] HospitalComment on above: Performed By: #### CBC #### [facility] [address] [place] [address] Dr. Nidhi Burrows (RBC) [Entitic mass]30.3 baFtpzqe40.7-34.0The [facility] HospitalComment on above:Performed By: #### CBC #### [facility] [address] [place] [address] Dr. Nidhi Burrows (RBC) [Mass/Vol]32.8 g/mEGrphcg78.9-35.2The [facility] HospitalComment on above:Performed By: #### CBC #### [facility] [address] [place] [address] Dr. Nidhi Haro (RBC) [Entitic vol]92.4 eYWifqgw45.0-99.0The [facility] HospitalComment on above:Performed By: #### CBC #### [facility] [address] [place] [address] Dr. Nidhi Franks #1.1 103/ulCritically high0.3-0.8The [facility] Comment on above:Performed By: #### CBC #### [facility] [address] [place] [address] Dr. Nidhi Veeocytes/100 WBC (Bld)11.1 %Normal1.7-12.0[facility] Comment on above:Performed By: #### CBC #### [facility] [address] [place] [address] Dr. Nidhi Charles #7.4 103/ulCritically high1.4-6.5The [facility] Comment on above:Performed By: #### CBC #### [facility] [address] [place] [address] Dr. Nidhi Jonesutrophils/100 WBC (Bld)74.9 %Rnntkv20.0-75.0The [facility] HospitalComment on above:Performed By: #### CBC #### [facility] [address] [place] [address] Dr. Nidhi Saez mean volume (Bld) [Entitic vol]9.9 fLNormal9.5-13.5The [facility] HospitalComment on above:Performed By: #### CBC #### [facility] [address] [place] [address] Dr. Nidhi DawnPLT219 103/aeZhggao221-497Kxq [facility] HospitalComment on above: Performed By: #### CBC #### [facility] [address] [place] [address] Dr. Nidhi DawnRBC3.40 106/ulCritically low4.20-5.40The [facility] HospitalComment on above:Performed By: #### CBC #### [facility] [address] [place] [address] Dr. Yilan ChangWBC9.9 103/ulNormal4.0-11.0The [facility] HospitalComment on above: Performed By: #### CBC #### [facility] [address] [place] [address] Dr. Nidhi DawnPROF CHEM 8 (BAS METB)on 19-94-3537Nlrpm gap [Moles/Vol]9.7 mmol/LNormalThe [facility] HospitalComment on above:Performed By: #### BMP #### [facility] [address] [place] [address] Dr. Nidhi DawnCalcium [Mass/Vol]8.5 mg/dLNormal8.5-10.1The [facility] Comment on above:Performed By: #### BMP #### [facility] [address] [place] [address] Dr. Nidhi DawnChloride [Moles/Vol]102 mmol/DMvxjsa51-222Sbo [facility] Comment on above:Performed By: #### BMP #### [facility] [address] [place] [address] Dr. Nidhi DawnCO2 [Moles/Vol]28.8 mmol/GNoyuyh11.0-32.0The [facility] Comment on above:Performed By: #### BMP #### [facility] [address] [place] [address] Dr. Nidhi DawnCreatinine [Mass/Vol]0.54 mg/dLCritically low0.55-1.02The [facility] HospitalComment on above:Performed By: #### BMP #### [facility] [address] [place] [address] Dr. Nidhi CrooksGFR-AF GREEK>60Normal>=60The [facility] HospitalComment on above:Performed By: #### BMP #### [facility] [address] [place] [address] Dr. Nidhi CrooksGFR-NON AF GREEK>60Normal>=60The [facility] HospitalComment on above:Performed By: #### BMP #### [facility] [address] [place] [address] Dr. Yilan ChangGlucose [Mass/Vol]108 mg/dLCritically kqwt02-886Vqk [facility] HospitalComment on above:Performed By: #### BMP #### [facility] [address] [place] [address] Dr. Nidhi DawnPotassium [Moles/Vol]3.5 mmol/LNormal3.5-5.1[facility] Comment on above:Performed By: #### BMP #### [facility] [address] [place] [address] Dr. Nidhi DawnSodium [Moles/Vol]137 mmol/UDyhjhh807-735Tcr [facility] Comment on above:Performed By: #### BMP #### [facility] [address] [place] [address] Dr. Nidhi DawnUrea nitrogen [Mass/Vol]14.0 mg/dLNormal7.0-18.0[facility] CenterComment on above:Performed By: #### BMP #### [facility] [address] [place] [address] Dr. Nidhi Maceod nitrogen/Creatinine [Mass ratio]25.9 mg/mgNormalThe [facility] HospitalComment on above:Performed By: #### BMP #### [facility] [address] [place] [address] Dr. Nidhi Haney CELESTINO ADMITon [id number] [Catalytic activity/Vol]60 U/L Sahvaj27-434Rpd [facility] HospitalComment on above:Performed By: #### CBC #### [facility] [address] [place] [address] Dr. Nidhi Duque.MB [Mass/Vol]2.29 ng/mLNormal<=3.60[facility] Comment on above:Performed By: #### CBC #### [facility] [address] [place] [address] Dr. Nidhi DawnHSTROP5.8 pg/mLNormal4.0-51.3The [facility] HospitalComment on above:Result Comment: CUT-OFF POINTS HAVE BEEN ESTABLISHED BASED ON THE FOURTH UNIVERSAL DEFINITIONS OF MYOCARDIAL INFARCTION. THE UPPER REFERENCE LIMIT (URL) OF TROPONIN, DEFINED THE 99TH PERCENTILE OF cTnI DISTRIBUTION IN A REFERENCE POPULATION, HAS BEEN CONFIRMED THE DECISION THRESHOLD FOR AR DIAGNOSIS.Performed By: #### CBC #### [facility] [address] [place] [address] Dr. Nidhi Watt63 ng/mLNormal9-82[facility] CenterComment on above: Performed By: #### CBC #### [facility] [address] [place] [address] Dr. Nidhi Panda AUTO DIFFon [id number] #0.0 103/ulNormal0.0-0.1The [facility] HospitalComment on above:Performed By: #### CBC #### [facility] [address] [place] [address] Dr. Nidhi DawnBasophils/100 WBC (Bld)0.3 %Normal0.2-2.0[facility] Comment on above:Performed By: #### CBC #### [facility] [address] [place] [address] Dr. Nidhi Romero #0.0 103/ulNormal0.0-0.7The [facility] HospitalComment on above: Performed By: #### CBC #### [facility] [address] [place] [address] Dr. Nidhi Crooksosinophils/100 WBC (Bld)0.3 %Critically low0.9-7.0[facility] CenterComment on above:Performed By: #### CBC #### [facility] [address] [place] [address] Dr. Nidhi Crooksrythrocyte distribution width (RBC) [Ratio]13.8 %Bflkrq25.0-15.0 [facility] CenterComment on above:Performed By: #### CBC #### [facility] [address] [place] [address] Dr. Nidhi DawnHematocrit (Bld) [Volume fraction]39.3 %Kouktp45.0-48.0[facility] CenterComment on above:Performed By: #### CBC #### [facility] [address] [place], [place] [address] Dr. Nidhi DawnHemoglobin (Bld) [Mass/Vol]12.8 g/rVZvwnpe46.0-16.0The [facility] HospitalComment on above:Performed By: #### CBC #### [facility] [address] [place] [address] Dr. Nidhi Killian #0.10 10e3/ulCritically high0.00-0.03The [facility] Comment on above:Performed By: #### CBC #### [facility] [address] [place] [address] Dr. Nidhi Killian %0.8 %Critically high0.0-0.5The [facility] HospitalComment on above:Performed By: #### CBC #### [facility] [address] [place] [address] Dr. Nidhi Guaman #1.1 103/ulCritically low1.2-3.8The [facility] Comment on above:Performed By: #### CBC #### [facility] [address] [place] [address] Dr. Nidhi Avilahocytes/100 WBC (Bld)9.3 %Critically low20.5-60.0The [facility] HospitalComment on above:Performed By: #### CBC #### [facility] [address] [place] [address] Dr. Nidhi PrabhakarUAL DIFF REQNONormalThe [facility] HospitalComment on above: Performed By: #### CBC #### [facility] [address] [place] [address] Dr. Nidhi Burrows (RBC) [Entitic mass]30.0 bqJzelar28.7-34.0The [facility] HospitalComment on above:Performed By: #### CBC #### [facility] [address] [place] [address] Dr. Nidhi Burrows (RBC) [Mass/Vol]32.6 g/gJWsddyw93.9-35.2The [facility] HospitalComment on above:Performed By: #### CBC #### [facility] [address] [address] [address] Nidhi BurrowsV (RBC) [Entitic vol]92.3 rKDirdkt56.0-99.0The [facility] HospitalComment on above:Performed By: #### CBC #### [facility] [address] [place] [address] Dr. Nidhi Franks #0.8 103/ulNormal0.3-0.8The [facility] HospitalComment on above:Performed By: #### CBC #### [facility] [address] [place] [address] Dr. Nidhi Veeocytes/100 WBC (Bld)6.6 %Normal1.7-12.0The [facility] Comment on above:Performed By: #### CBC #### [facility] [address] [place] [address] Dr. Nidhi Charles #9.8 103/ulCritically high1.4-6.5The [facility] Comment on above:Performed By: #### CBC #### [facility] [address] [place] [address] Dr. Nidhi Jonesutrophils/100 WBC (Bld)82.7 %Critically high43.0-75.0The [facility] HospitalComment on above:Performed By: #### CBC #### [facility] [address] [place] [address] Dr. Nidhi Saez mean volume (Bld) [Entitic vol]9.3 fLCritically low 9.5-13.5The [facility] HospitalComment on above:Performed By: #### CBC #### [facility] [address] [place] [address] Dr. Nidhi DawnPLT284 103/sjXwfcbx261-004Ffm [facility] HospitalComment on above: Performed By: #### CBC #### [facility] [address] [place] [address] Dr. Nidhi DawnRBC4.26 106/ulNormal4.20-5.40The [facility] HospitalComment on above:Performed By: #### CBC #### [facility] [address] [place], [place] [address] Dr. Nidhi DawnWBC11.8 103/ulCritically high4.0-11.0The [facility] HospitalComment on above:Performed By: #### CBC #### [facility] [address] [place], [place] [address] Dr. Nidhi DawnCT CHEST W CONon [id number] CHEST W CONEXAMINATION: CT CHEST W CON HISTORY: Unspecified fall ; right [...] Electronically authenticated by: TAYLOR PENA Date: 2022-03-31 14:36[facility] CSPINE WO CONon [id number] [facility] CT CSPINE WO CON HISTORY: Unspecified fall COMPARISON: No [...] Electronically authenticated by: TAYLOR PENA Date: 2022-03-31 14:48[facility] [id number] HEAD WO CONEXAMINATION: CT HEAD WO CON HISTORY: Unspecified fall [...] Electronically authenticated by: TAYLOR PENA Date: 2022-03-31 14:11[facility] L[facility] CONon [id number] LSPINE WO CONEXAMINATION: CT LSPINE WO CON, 03/31/2022 1:16 PM EDT HISTORY: [...] Electronically authenticated by: TAYLOR PENA Date: 2022-03-31 14:27[facility] HospitalCovid-19 PCR (CVDTBH)on [id number]-CoV-2 (COVID-19) RNA COLLINS+probe Ql (Unsp spec)Not detectedNormalNOT DETECTEDThe [facility] Comment on above:Result Comment: When diagnostic testing is negative, the [...] for this test is supported by the [place] of Health and Human Service's declaration that circumstances exist to justify the emergency use of in vitro diagnostics for the detection and/or diagnosis of the virus that causes COVID-19. This EUA will remain in effect for the duration of the COVID-19 declaration justifying emergency of IVDs, unless it is terminated or revoked by the FDA (after which the test may no longer be used).Performed By: #### CVDTBH #### [facility] [address] [place] [address] Dr. Nidhi DawnPROF 14(COMP METB)on [id number] [Mass/Vol]3.7 g/dLNormal 3.4-5.0[facility] Medical CenterComment on above:Performed By: #### CBC #### [facility] [address] [place] [address] Dr. Nidhi DawnAlbumin/Globulin [Mass ratio]1.2 {ratio}NormalThe [facility] on above:Performed By: #### CBC #### [facility] [address] [place] [address] Dr. Nidhi Hardin [Catalytic activity/Vol]55 U/LPepizl73-520Dlj [facility] on above:Performed By: #### CBC #### [facility] [address] [place] [address] Dr. Nidhi Worrell [Catalytic activity/Vol]24 U/JBpgwst10-16Hzj [facility] on above:Performed By: #### CBC #### [facility] [address] [address] [address] Nidhi Kirkpatrick gap [Moles/Vol]9.2 mmol/LNormalThe [facility] HospitalComment on above:Performed By: #### CBC #### [facility] [address] [address] [address] Nidhi DawnAST [Catalytic activity/Vol]19 U/JEwslbk02-01Uqh [facility] HospitalComment on above:Performed By: #### CBC #### [facility] [address] [address] [address] Nidhi DawnBilirubin [Mass/Vol]0.5 mg/dLNormal0.2-1.0The [facility] Comment on above:Performed By: #### CBC #### [facility] [address] [address] [address] Nidhi DawnCalcium [Mass/Vol]9.1 mg/dLNormal8.5-10.1The [facility] Comment on above:Performed By: #### CBC #### [facility] [address] [address] [address] Nidhi DawnChloride [Moles/Vol]103 mmol/QNxpyvk17-596Heo [facility] Comment on above:Performed By: #### CBC #### [facility] [address] [place] [address] Dr. Nidhi DawnCO2 [Moles/Vol]28.0 mmol/ILnqpvl17.0-32.0The [facility] Comment on above:Performed By: #### CBC #### [facility] [address] [place] [address] Dr. Nidhi DawnCreatinine [Mass/Vol]0.56 mg/dLNormal0.55-1.02The [facility] HospitalComment on above:Performed By: #### CBC #### [facility] [address] [address] [address] Terrell ChangEGFR-AF GREEK>60Normal>=60The [facility] HospitalComment on above:Performed By: #### CBC #### [facility] [address] [address] [address] Nidhi CrooksGFR-NON AF GREEK>60Normal>=60The [facility] HospitalComment on above:Performed By: #### CBC #### [facility] [address] [place] [address] Dr. Nidhi DawnGlobulin (S) [Mass/Vol]3.2 g/dLNormalThMount St. Mary HospitalComment on above:Performed By: #### CBC #### [facility] [address] [place] [address] Dr. Nidhi DawnGlucose [Mass/Vol]140 mg/dLCritically vvae19-440Oec [facility] HospitalComment on above:Performed By: #### CBC #### [facility] [address] [place] [address] Dr. Nidhi DawnPotassium [Moles/Vol]3.2 mmol/LCritically low3.5-5.1The [facility] HospitalComment on above:Performed By: #### CBC #### [facility] [address] [place] [address] Dr. Nidhi DawnProtein [Mass/Vol]6.9 g/dLNormal6.4-8.2[facility] Comment on above:Performed By: #### CBC #### [facility] [address] [place] [address] Dr. Nidhi DawnSodium [Moles/Vol]137 mmol/IBupqvv327-510Hcg [facility] Comment on above:Performed By: #### CBC #### [facility] [address] [place] [address] Dr. Nidhi DawnUrea nitrogen [Mass/Vol]13.0 mg/dLNormal7.0-18.0The [facility] HospitalComment on above:Performed By: #### CBC #### [facility] [address] [place] [address] Dr. Nidhi Macedo nitrogen/Creatinine [Mass ratio]23.2 mg/mgNormalThe [facility] HospitalComment on above:Performed By: #### CBC #### [facility] [address] [place] [address] Dr. Nidhi IrizarryIMEon [id number] Coag (PPP) [Relative time]1.01 {INR} NormalThe [facility] HospitalComment on above:Performed By: #### CBC #### [facility] [address] [place] [address] Dr. Nidhi Abrams GUIDELINESSEE BELOWNormalThMount St. Mary HospitalComment on above:Result Comment: DESIRED INR: 2.0 - 3.0 CONDITIONS NOT LISTED BELOW 2.5 - 3.5 FOR PROSTHETIC HEART VALVE REPLACEMENT 2.5 - 3.5 RECURRENT THROMBOSIS Performed By: #### CBC #### [facility] [address] [place] [address] Dr. Nidhi DawnPT Coag (PPP) [Time]10.9 sNormal9.0-11.6The [facility] Comment on above:Performed By: #### CBC #### [facility] [address] [place] [address] Dr. Nidhi Kennedy [id number] Coag (Bld) [Time]25.7 uQonzzl70.3-36.2The [facility] HospitalComment on above:Performed By: #### CBC #### [facility] [address] [place] [address] Dr. Nidhi Zapata 85-03-9941UHD6.763 uIU/mLCritically high0.358-3.740The [facility] HospitalComment on above:Performed By: #### CBC #### [facility] [address] [place] [address] Dr. Nidhi DawnXR HIP RT 2 3V W PELVISon [id number] HIP RT 2 3V W PELVISEXAM: XR FEMUR RT, XR HIP RT 2 [...] Electronically authenticated by: AVEL BUENO Date: 2022-03-31 14:33[facility] HospitalXR H[facility] 2 3V W PELVISon [id number] HIP RT 2 3V W PELVIS EXAM:XR [...] Electronically authenticated by: KANDIS KENNY Date: 2021-12-14 21:43[facility] HospitalCT PELVIS WO CONon [id number] PELVIS WO CONEXAMINATION: CT PELVIS WO CON HISTORY: Pain COMPARISON: None. TECHNIQUE: [...] Electronically authenticated by: ISRAEL JUÁREZ Date: 2021-12-13 18:[address] [place] [address] Vital Signs Date TimeVital SignValuePerforming IdoamyfjsQchhlgjz62-50-0596 11:28-0400Body kzqukr109.9 Esdras Olvera APRN-BRAND PLANNER Work Phone: [facility]05-07-2025 11:28-0400Body mass index (BMI) [Ratio]17.2 kg/i7RayxqeiAshley Olvera APRN-BRAND PLANNER Work Phone: [facility]05-07-2025 11:28-0400Body fpnpilyvmyv22.4 [degF]Ashley Olvera COMMANDER POLICE RESERVES-BRAND PLANNER Work Phone: [facility] [employer] Gftagi47-80-6514 11:28-0400Body oamaqm73.65 kgAshley Olvera APRN-BRAND PLANNER Work Phone: [facility] [employer] Pvbntd39-86-8644 11:28-0400Diastolic blood zccfxeoc44 mm[Hg]Ashley Olvera APRN-BRAND PLANNER Work Phone: [facility]05-07-2025 11:28-0400Heart rate 63 /minAshley Olvera APRN-BRAND PLANNER Work Phone: [facility]05-07-2025 11:28-0400 Respiratory rate18 /minAshley Olvera APRN-BRAND PLANNER Work Phone: [facility]05-07-2025 11:28-2084KwZ4% (BldA) [Mass fraction]91 %Ashley Olvera APRN-BRAND PLANNER Work Phone: [facility]05-07-2025 11:28-0400Systolic blood mm[Hg]Ashley Olvera COMMANDER POLICE RESERVES-BRAND PLANNER Work Phone: [facility]12-31-2024 11:24-0500Body .9 Esdras Olvera APRN-BRAND PLANNER Work Phone: [facility] [employer] Bzrrim96-87-1302 11:24-0500Body mass index (BMI) [Ratio]18.78 kg/g2RbikjwpAshley Olvera APRN-BRAND PLANNER Work Phone: [facility] [employer] Snjyhe55-38-7156 11:24-0500Body jatcpbmlkbb48.5 [degF]Aslhey Olvera APRN-BRAND PLANNER Work Phone: [facility]12-31-2024 11:24-0500Body glhimy34.19 kgAshley Olvera APRN-BRAND PLANNER Work Phone: [facility]12-31-2024 11:24-0500Diastolic blood vqvrunaf80 mm[Hg]Ashley Olvera APRN-BRAND PLANNER Work Phone: [facility]12-31-2024 11:24-0500Heart rate 68 /minAshley Olvera APRN-BRAND PLANNER Work Phone: [facility] [employer] Vvrccr97-97-0781 11:24-0500 Respiratory rate18 /minAshley Olvera APRN-BRAND PLANNER Work Phone: [facility]12-31-2024 11:24-5529XzU9% (BldA) [Mass fraction]99 %Ashley Olvera APRN-BRAND PLANNER Work Phone: [facility]12-31-2024 11:24-0500Systolic blood yhbtumkf264 mm[Hg]Ashley Olvera APRN-BRAND PLANNER Work Phone: [facility] [employer] Xnltnu63-65-6708 11:12-0400Body fbsdyq971.9 cmValenitish Olvera APRN-BRAND PLANNER Work Phone: [facility] [employer] Qfbkug33-75-4972 11:12-0400Body mass index (BMI) [Ratio]17.17 kg/o6JbcfbyuAshley Olvera APRN-BRAND PLANNER Work Phone: [facility] [employer] Mddhep75-37-5123 11:12-0400Body viiokkjcpjj14.7 [degF]Ashley Olvera APRN-BRAND PLANNER Work Phone: [facility]09-17-2024 11:12-0400Body olssmz85.56 kgAshley Olvera APRN-BRAND PLANNER Work Phone: [facility]09-17-2024 11:12-0400Diastolic blood xwztlafm60 mm[Hg]Ashley Olvera COMMANDER POLICE RESERVES-BRAND PLANNER Work Phone: [facility]09-17-2024 11:12-0400Heart rate 64 /minAshley Olvera APRN-BRAND PLANNER Work Phone: [facility]09-17-2024 11:12-0400 Respiratory rate20 /minAshley Olvera COMMANDER POLICE RESERVES-BRAND PLANNER Work Phone: [facility]09-17-2024 11:12-7897QeJ9% (BldA) [Mass fraction]97 %Ashley Olvera APRN-BRAND PLANNER Work Phone: [facility]09-17-2024 11:12-0400Systolic blood znzomvle980 mm[Hg]Ashley Olvera COMMANDER POLICE RESERVES-BRAND PLANNER Work Phone: [facility]08-28-2024 11:32-0400Body kawhsm625.9 cmVsae Olvera APRN-BRAND PLANNER Work Phone: [facility] [employer] Cljsxd83-06-0184 11:32-0400Body mass index (BMI) [Ratio]18.34 kg/a8FuckzezAshley Olvera APRN-BRAND PLANNER Work Phone: [facility]08-28-2024 11:32-0400Body dldgeoweyun78.01 [degF]Ashley Olvera COMMANDER POLICE RESERVES-BRAND PLANNER Work Phone: [facility]08-28-2024 11:32-0400Body .19 kgAshley Olvera COMMANDER POLICE RESERVES-BRAND PLANNER Work Phone: [facility]08-28-2024 11:32-0400Diastolic blood nhydegfh22 mm[Hg]Ashley Olvera APRN-BRAND PLANNER Work Phone: [facility] [employer] Krmkis87-96-0654 11:32-0400Heart rate 64 /minAshley Olvera APRN-BRAND PLANNER Work Phone: [facility]08-28-2024 11:32-0400 Respiratory rate18 /minAshley Olvera APRN-BRAND PLANNER Work Phone: [facility]08-28-2024 11:32-7730FrR1% (BldA) [Mass fraction]97 %Ashley Olvera APRN-BRAND PLANNER Work Phone: [facility] [employer] Dfnfrl28-15-4898 11:32-0400Systolic blood rzhyxypw440 mm[Hg]Ashley Olvera APRN-BRAND PLANNER Work Phone: [facility] [employer] Aufnyx91-66-1333 11:44-0400Body komhou441.9 cmVsae Olvera APRN-BRAND PLANNER Work Phone: [facility]04-30-2024 11:44-0400Body mass index (BMI) [Ratio]19.83 kg/z1VjdaxbyAshley Olvera APRN-BRAND PLANNER Work Phone: [facility]04-30-2024 11:44-0400Body cbkctegbqoh40.1 [degF]Ashley Olvera APRN-BRAND PLANNER Work Phone: [facility] [employer] Srieit11-95-8433 11:44-0400Body .54 kgAshley Olvera APRN-BRAND PLANNER Work Phone: [facility]04-30-2024 11:44-0400Diastolic blood orhpriou76 mm[Hg]Ashley Olvera APRN-BRAND PLANNER Work Phone: [facility]04-30-2024 11:44-0400Heart rate 78 /minAshley Olvera APRN-BRAND PLANNER Work Phone: [facility] [employer] Dzgpnv97-06-1613 11:44-0400 Respiratory rate18 /minAshley Olvera APRN-BRAND PLANNER Work Phone: [facility] Pubppx17-91-9783 11:44-3159GcS8% (BldA) [Mass fraction]96 %Ashley Olvera APRN-BRAND PLANNER Work Phone: [facility] [employer] Ihkexi35-00-6490 11:44-0400Systolic blood mm[Hg]Ashley Olvera APRN-BRAND PLANNER Work Phone: [facility] [employer] Icfyec11-48-7890 11:40-0400Body ecdjos768.9 cmVsae Olvera COMMANDER POLICE RESERVES-BRAND PLANNER Work Phone: [facility]04-03-2024 11:40-0400Body mass index (BMI) [Ratio]19.09 kg/m9CbzoggcAshley Olvera APRN-BRAND PLANNER Work Phone: [facility] [employer] Bctftt16-49-5297 11:40-0400Body vyuubmumfgq87.39 [degF]Ashley Olvera APRN-BRAND PLANNER Work Phone: [facility] [employer] Ewdniz21-13-6279 11:40-0400Body izyzkq45.87 kgAshley Olvera APRN-BRAND PLANNER Work Phone: [facility] [employer] Uxkpkn06-05-8394 11:40-0400Diastolic blood lqjwrjio15 mm[Hg]Ashley Olvera APRN-BRAND PLANNER Work Phone: [facility] [employer] Rhwwjy77-22-2308 11:40-0400Heart rate 57 /minAshley Olvera APRN-BRAND PLANNER Work Phone: [facility] [employer] Iyyfgf97-59-0715 11:40-0400 Respiratory rate18 /minAshley Olvera APRN-BRAND PLANNER Work Phone: [facility]04-03-2024 11:40-9888SdU2% (BldA) [Mass fraction]99 %Ashley Olvera APRN-BRAND PLANNER Work Phone: [facility]04-03-2024 11:40-0400Systolic blood egsazbjd324 mm[Hg]Ashley Olvera COMMANDER POLICE RESERVES-BRAND PLANNER Work Phone: [facility]03-18-2024 11:45-0400Body lqrcap688.9 Esdras Olvera COMMANDER POLICE RESERVES-BRAND PLANNER Work Phone: [facility]03-18-2024 11:45-0400Body mass index (BMI) [Ratio]18.46 kg/n3TccirvuAshley Olvera COMMANDER POLICE RESERVES-BRAND PLANNER Work Phone: [facility] [employer] Xtabmo75-03-5792 11:45-0400Body agijdfzzekk34.3 [degF]Ashley Olvera COMMANDER POLICE RESERVES-BRAND PLANNER Work Phone: [facility]03-18-2024 11:45-0400Body lvplcy17.46 kgAshley Olvera COMMANDER POLICE RESERVES-BRAND PLANNER Work Phone: [facility]03-18-2024 11:45-0400Diastolic blood yxdmapas45 mm[Hg]Ashley Olvera COMMANDER POLICE RESERVES-BRAND PLANNER Work Phone: [facility] [employer] Epzase95-47-8076 11:45-0400Heart rate 70 /minAshley Olvera COMMANDER POLICE RESERVES-BRAND PLANNER Work Phone: [facility] [employer] Ojyqug74-42-0393 11:45-0400 Respiratory rate22 /minAshley Olvera COMMANDER POLICE RESERVES-BRAND PLANNER Work Phone: [facility]03-18-2024 11:45-6019FgN1% (BldA) [Mass fraction]100 %Ashley Olvera COMMANDER POLICE RESERVES-BRAND PLANNER Work Phone: [facility]03-18-2024 11:45-0400Systolic blood qtksfzib407 mm[Hg]Ashley Olvera COMMANDER POLICE RESERVES-BRAND PLANNER Work Phone: [facility] [employer] Ronrxy18-40-7075 15:42-0500Body atpwmz607.9 Esdras Olvera COMMANDER POLICE RESERVES-BRAND PLANNER Work Phone: [facility]03-06-2024 15:42-0500Body mass index (BMI) [Ratio]19.79 kg/c7KdpjjqlAshley Olvera APRN-BRAND PLANNER Work Phone: [facility]03-06-2024 15:42-0500Body lpafwxdlrzw07.01 [degF]Ashley Olvera APRN-BRAND PLANNER Work Phone: [facility]03-06-2024 15:42-0500Body kbiktk88.45 kgAshley Olvera APRN-BRAND PLANNER Work Phone: [facility]03-06-2024 15:42-0500Diastolic blood lnjtbeuy43 mm[Hg]Ashley Olvera APRN-BRAND PLANNER Work Phone: [facility]03-06-2024 15:42-0500Heart rate 59 /minAshley Olvera APRN-SARAH Work Phone: [facility]03-06-2024 15:42-0500 Respiratory rate18 /minAshley Olvera APRN-BRAND PLANNER Work Phone: [facility]03-06-2024 15:42-2549KmT1% (BldA) [Mass fraction]93 %Ashley Olvera APRN-BRAND PLANNER Work Phone: [facility]03-06-2024 15:42-0500Systolic blood svfiwhmo778 mm[Hg]Ashley Olvera APRN-BRAND PLANNER Work Phone: [facility]03-13-2023 16:00-0400Body slyqjnhvdzl47.6 [degF][employer] TRAFFIC [employer]OLLER-C Ashley Olvera Work Phone: [facility]03-13-2023 16:00-0400 Diastolic blood btputkds14 mm[Hg]AIR [employer]TE TRAFFIC CONTROLLER-C Ashley Olvera Work Phone: [facility]03-13-2023 16:00-0400 Heart rate77 /minNP-C Ashley Olvera Work Phone: [facility]03-13-2023 16:00-0400 Respiratory rate16 /minNP-C Ashley Olvera Work Phone: [phone]03-13-2023 16:00-0400 SaO2% (BldA) [Mass fraction]100 %A[employer] TRAFFIC CONTROLLER-C Ashley Olvera Work Phone: [phone]03-13-2023 16:00-0400 Systolic blood jwbnjaqc268 mm[Hg]AIR [employer]TE TRAFFIC CONTROLLER-C Ashley Olvera Work Phone: [phone]03-12-2023 20:00-0400 Inhaled oxygen flow rate2 L/minNP-C Ashley Wade Work Phone: [phone] [place], [place] [address]003-09-2023 06:00-0500 Body qcosvb61 kgNP-C Ashley Wade Work Phone: [phone]03-08-2023 16:10-0500 Body darqyc066.32 cmNP-C Ashley Olvera Work Phone: [phone]03-08-2023 16:10-0500 Body mass index (BMI) [Ratio]18.6 kg/m2NP-C Ashley Olvera Work Phone: [phone]05-23-2022 16:30-0400 Body qitspo848.4 cmPshayla Galvan Other [employer] Other 05-23-2022 16:30-0400Body mass index (BMI) [Ratio] 19.33 kg/p3IcpfneRylie Galvan Other [employer] [facility] [employer] Other 05-23-2022 16:30-0400Body xrweaxclted67 [degF]Rylie Galvan Other [employer] Other 05-23-2022 16:30-0400Body vkxayb59.91 kgRylie Galvan Other [employer] Other 05-23-2022 16:30-0400Diastolic blood flibydpy80 mm[Hg] Rylie Galvan Other [employer] Other 05-23-2022 16:30-0400Respiratory rate18 /minRylie Galvan Other [employer] Other 05-23-2022 16:30-1119PcN4% (BldA) [Mass fraction]97 % Rylie Galvan Other [employer] Other 05-23-2022 16:30-0400Systolic blood obhdoosi552 mm[Hg] Rylie Galvan Other [employer] Other Encounters Encounter DateEncounter TypeCare ProviderFacilityStart: 03-04-2025 End: 16-24-8658Uddbrxgpc encounterAlexigia LUEVANOAProMedstephen Physicians Internal Medicine - Family MedicineStart: 11-27-2024 End: 06-32-1746Rufaub outpatient visit 25 minutesAshley Olvera APRN-BRAND PLANNER Work Phone: [facility] - Family MedicineComment on above:Benign essential HTN (Primary Dx); 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); Depression, major, in remission; Primary osteoarthritis involving multiple jointsStart: 11-27-2024 End: 21-11-3054nvzysvishyKGUVKCY J [facility]OBl[facility] Start: 07-30-2024 End: 77-15-3920Slwopsrhh encounterDolores [facility] Call CenterComment on above:Advice OnlyStart: 07-25-2024 End: 07-74-3946Rxgvfj OnlyMariahhector Hawkins Wade PAULSON-BRAND PLANNER Work Phone: [facility] Internal Medicine - Family MedicineComment on above:Deficiency of vitamin A95Wxqou: 07-23-2024 End: 10-31-2076bggyopsiyfHRBEOUFCleveland Clinic Hillcrest Hospitaltart: 07-23-2024 End: 89-61-6530Ofidbep encounter procedureMariahhector Shruthi Olvera APRN-BRAND PLANNER Work Phone: [facility] Physicians Internal Medicine - Family MedicineComment on above:Medicare annual wellness visit, subsequent (Primary Dx); Benign essential HTN; Deficiency of vitamin B12; Vitamin D deficiencyStart: 07-23-2024 End: 02-28-0684wbpspoumgjDAERYQZProvidence [facility] Start: 59-70-8808Hsztdgkuq for general adult medical examination without abnormal findingsCHRISTUS Saint [facility] PPGStart: 04-09-2024 End: 07-44-8619zfmylllcnaYQOFHNIMemorial Health Systemtart: 04-09-2024 End: 48-14-6300Lpcrdt outpatient visit 15 minutesAshley Olvera APRN-BRAND PLANNER Work Phone: [facility] - [facility] HospitalComment on above:Behavioral change (Primary Dx); Benign essential HTNStart: 04-09-2024 End: 27-14-4478cmugryfoayGLAKFMAProvidence Mount Carmel Hospital [facility] Start: 04-08-2024 End: 75-34-3107Glxjcicpe encounterValenitish Olvera APRN-SARAH Work Phone: [facility] - [facility] MedicineStart: 03-20-2024 End: 60-63-7858Uoiqxh outpatient visit 15 minutesAshley Olvera APRN-BRAND PLANNER Work Phone: [facility] Physicians Internal Medicine - Family MedicineComment on above:Benign essential HTN (Primary Dx); 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 ([facility]); Current moderate episode of major depressive disorder without prior episode ([facility])Start: 03-20-2024 End: 09-57-7525dspkirygocZINRQNL J CASTILLOBluffton Hospital [facility] Start: 01-29-2024 End: 87-25-2212Xciuxsrqd encounterValenitish Olvera APRN-BRAND PLANNER Work Phone: [facility] Physicians Internal Medicine - Family MedicineStart: 11-21-2023 End: 53-44-2480Vjldac outpatient visit 15 minutesAshley Olvera APRN-BRAND PLANNER Work Phone: [facility] Physicians Internal Medicine - Family MedicineComment on above:Closed fracture of one rib of right side with routine healing, subsequent encounter (Primary Dx)Start: 11-07-2023 End: 43-73-2133oenstbtnrqTXZKI NORTHEIMNot AvailableStart: 10-25-2023 End: 40-79-0571Hilpuy outpatient visit 15 minutesAshley Olvera APRN-BRAND PLANNER Work Phone: [facility] Physicians Internal Medicine - Family MedicineComment on above:Arthritis, multiple joint involvement (Primary Dx); History of healed osteoporosis fracture; Decreased mobility and enduranceStart: 38-17-4720Twcckk OnlyAshley Olvera APRN-BRAND PLANNER Work Phone: [facility] Physicians Internal Medicine - Family MedicineComment on above:Arthritis, multiple joint involvement (Primary Dx); Benign essential HTNStart: 86-54-2202AwmhejYdcjesuzPam Gastelum CMAProMediwa Physicians Internal Medicine - Family MedicineComment on above:Arthritis, multiple joint involvementStart: 10-09-2023 End: 33-16-7214Ufeqmhnpoplj care manage srvc 7 day dischargeAshley Olvera APRN-BRAND PLANNER Work Phone: [facility] Physicians Internal Medicine - Family MedicineComment on above:Pneumonia of left lower lobe due to infectious organism (Primary Dx); Benign essential HTN; Arthritis, multiple joint involvement; Rash and nonspecific skin eruptionStart: 09-27-2023 End: 28-34-6143Fwhqgh outpatient visit 15 minutesAshley Olvera APRN-BRAND PLANNER Work Phone: [facility] - Family MedicineComment on above:Rash and nonspecific skin eruption (Primary Dx); 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); Current moderate episode of major depressive disorder without prior episode (CMS-HCC); Malignant neoplasm of colon, unspecified part of colon (CMS-HCC)Start: 10-25-2022 End: 58-71-5399lfrbdwvwvsZcpyef Olexa Other [place] [facility] Other Start: 56-65-0542Utlthytdd encounterThomas OlexaFPG [facility] OrthopedicsStart: 10-14-2022 End: 29-64-9034kjfxvrnhtbTHDIEAA CASTILLOFacility:I6Chyao: 09-28-2022 End: 82-22-7117Muzzwstdwm and management of inpatientThomas Olexa [facility]: 09-28-2022 End: 29-43-2535Fwuakzjwmd and management of inpatientNP-C Ashley Olvera Work Phone: [facility] [place] [facility] Work Phone: Start: 09-27-2022 End: 35-95-2092sdmlsqkurjGJBLCC DIAB .Facility:R9Baips: 05-02-2022 End: 31-05-1578nyjxzftwgpFSOVJN NIYA .Facility:C9Dyztr: 40-15-4568Tfokbic encounter procedureStorm Russell APRN.POWER CHECKER Work Phone: [facility] MAINStart: 63-34-4268Sdcapoqn Macarena Russell APRN.POWER CHECKER Work Phone: [facility] DepartmentStart: 79-64-8412Lgeuoao encounter Racheal Russell APRN.POWER CHECKER Work Phone: [facility] MAINStart: 92-85-2290Yngxrweu Macarena Russell APRN.POWER CHECKER Work Phone: [facility] DepartmentStart: 51-84-9425Ljklaqf encounter procedureDebra Vásquez Work Phone: [facility] TRMStart: 29-67-5602Domhkzqn Note Itri A Fahad Work Phone: [facility] TermStart: 03-31-2022 End: 01-05-9906Kzfiqiyxln and management of inpatientDR GAB FONSECA .Facility: Start: 12-13-2021 End: 03-04-4027xzacredvhuAU BONIFACIO LEMOS .[employer] Other Start: 74-24-1289Yxklfb outpatient visit 15 minutes Rylie GalvanFPG [facility] Procedures DateProcedureProcedure DetailPerforming ClinicianStart: 60-98-0392Jqbbl depression screening assessmentMariahhector MistryOlvera COMMANDER POLICE RESERVES-BRAND PLANNER Work Phone: Start: 95-63-9609Ppvyc depression screening assessment Ashley Olvera COMMANDER POLICE RESERVES-BRAND PLANNER Work Phone: Start: 75-48-6577Imvxi dip stick/tablet rgnt non-auto w/o micrscpValenitish Hawkins Olvera COMMANDER POLICE RESERVES-BRAND PLANNER Work Phone: Start: 72-34-9057Vyluv depression screening assessment Ashley Olvera COMMANDER POLICE RESERVES-BRAND PLANNER Work Phone: Start: 76-19-3947Yqndu depression screening assessment Ashley Mistryillo COMMANDER POLICE RESERVES-BRAND PLANNER Work Phone: Start: 95-32-9817Mbhkn depression screening assessment Ashley Olvera COMMANDER POLICE RESERVES-BRAND PLANNER Work Phone: Start: 83-46-6951Uccns depression screening assessment Ashley Mistryillo COMMANDER POLICE RESERVES-BRAND PLANNER Work Phone: Start: 19-42-6064Kextb depression screening assessment Ashley Mistryillo COMMANDER POLICE RESERVES-BRAND PLANNER Work Phone: Start: 11-23-4012Voqkc X-ray of left hipNP-C Ashley Olvera Work Phone: Start: 94-97-3434Fqwzq X-ray of left hipNP-C Ashley Olvera Work Phone: Start: 62-72-2894Mkhw reduction with internal fixation AIR [employer]OU[employer] TRAFFIC [employer]OLLER-C Ashley Olvera Work Phone: Start: 91-12-0258Lfiff X-ray of left femurNP-C Ashley Olvera Work Phone: Start: 50-17-9235Vejva X-ray of left hipNP-C Ashley Olvera Work Phone: Plan of Treatment DateCare ActivityDetailAuthorStart: 29-16-4607EEpC,Tdap and Td Vaccines (3 - Td or Tdap)DTaP,Tdap and Td Vaccines (3 - Td or Tdap)[facility] SystemStart: 58-58-6073Jxstogjsqw ScreeningDepression ScreeningProOhiohealth Berger Hospital SystemStart: 41-91-8441Lqkq Risk ScreeningFall Risk ScreeningCincinnati Shriners Hospital SystemStart: 61-95-9785Ewwpbfv ScreeningTobacco ScreeningCincinnati Shriners Hospital SystemStart: 29-34-0409Zsazrnjhhs ScreeningDepression ScreeningCincinnati Shriners Hospital SystemStart: 25-26-9877Grrf Risk ScreeningFall Risk ScreeningCincinnati Shriners Hospital SystemStart: 12-31-2025Medicare Annual Wellness VisitMedicare Annual Wellness VisitCincinnati Shriners Hospital SystemStart: 87-51-4812Qkuebsb ScreeningTobacco ScreeningCincinnati Shriners Hospital SystemStart: 04-02-2025 End: 89-93-0940Rjfubhr encounter ovadgmzif78/10/2025 11:20 AM EDT Office Visit [facility] [address] [place] [address] Ashley Olvera, COMMANDER POLICE RESERVES-BRAND PLANNER [address] [place] [address] [facility] - Family MedicineStart: 89-60-5447Bqhxbgnyq vaccinationInfluenza VaccineProOhiohealth Berger Hospital SystemStart: 51-95-4682Ryqqz BMI ScreeningAdult BMI ScreeningProVan Wert County Hospitalca Health SystemStart: 26-17-2124Muadkdv ScreeningTobacco ScreeningKettering Health Miamisburgca Health SystemStart: 11-27-2024 End: 90-09-9450Cqppakd encounter kbknramfc87/07/2025 11:20 AM EDT Office Visit [facility] [address] [place] [address] Ashley Olvera, COMMANDER POLICE RESERVES-BRAND PLANNER [address] [place] [address] [facility] - Family MedicineStart: 59-85-2395Cvava BMI ScreeningAdult BMI ScreeningKettering Health Miamisburgca [facility] SystemStart: 93-43-5927Yrickeujmq ScreeningDepression ScreeningKettering Health Miamisburgca [facility] SystemStart: 35-49-0143Hlob Risk ScreeningFall Risk ScreeningKettering Health Miamisburgca Health SystemStart: 50-06-4293Mkeowtp ScreeningTobacco ScreeningGrace Cottage HospitalMedica Health SystemStart: 95-87-0616Hysai BMI ScreeningAdult BMI ScreeningKettering Health Miamisburgca Health SystemStart: 35-83-8498Ijaepvmzje ScreeningDepression ScreeningProMedica Health SystemStart: 63-47-4786Xoil Risk ScreeningFall Risk ScreeningGrace Cottage HospitalMedica Health SystemStart: 55-92-6377Pdeayto ScreeningTobacco ScreeningKettering Health Miamisburgca Health SystemStart: 48-04-3040Unabi BMI ScreeningAdult BMI ScreeningProMedica Health SystemStart: 19-30-2530Iiotvvjjbb ScreeningDepression ScreeningGrace Cottage HospitalMedica Health SystemStart: 15-46-5945Lyew Risk ScreeningFall Risk ScreeningKettering Health Miamisburgca Health SystemStart: 17-94-9325Tzwfbjb ScreeningTobacco ScreeningGrace Cottage HospitalMedica Health SystemStart: 40-33-6116Hnanrle ScreeningTobacco ScreeningGrace Cottage HospitalMedica [facility] SystemStart: 73-72-1591Ovtag BMI ScreeningAdult BMI ScreeningProVan Wert County Hospitalca [facility] SystemStart: 88-77-1459Bnizehxpud ScreeningDepression ScreeningKettering Health Miamisburgca [facility] SystemStart: 19-76-2682Yqha Risk ScreeningFall Risk ScreeningProProMedica Defiance Regional Hospitaltart: 07-23-2024 End: 50-33-7909Kksvkgf encounter muazaudsx26/31/2024 11:20 AM EST Office Visit [facility] [address] [place] [address] Ashley Olvera, COMMANDER POLICE RESERVES-BRAND PLANNER [address] [place] [address] [facility] MedicineStart: 12-21-2024Medicare Annual Wellness VisitMedicare Annual Wellness VisitProProMedica Defiance Regional Hospitaltart: 04-09-2024 End: 62-71-4259Utvneis encounter tssmlltte49/17/2024 11:00 AM EDT Office Visit [facility] [address] [place] [address] Ashley Olvera, COMMANDER POLICE RESERVES-BRAND PLANNER [address] [place] [address] [facility] MedicineStart: 57-06-2668DTCMA-19 Vaccine ( season)COVID-19 Vaccine ( season)[facility] Start: 17-42-3901WEIBS-19 Vaccine ( season)COVID-19 Vaccine ( season)[facility] SystemStart: 89-65-7171Glryqcvzp vaccination Influenza VaccineOn license of [facility]art: 03-20-2024 End: 89-72-2175Jgppuwh encounter iymxuphsc18/28/2024 11:20 AM EDT Office Visit [facility] [address] [place] [address] Ashley Olvera, COMMANDER POLICE RESERVES-BRAND PLANNER [address] [place] [address] [facility] Physicians Internal Medicine [facility] MedicineStart: 01-09-2024 End: 44-83-8824Vgexuyd encounter vtocouqaz75/18/2024 10:40 AM EDT [facility] [address] [place] [address] Ashley Olvera, COMMANDER POLICE RESERVES-BRAND PLANNER [address] [place] [address] [facility] Physicians Internal [facility] MedicineStart: 96-03-0186Xxogc BMI Follow Up PlanAdult BMI Follow Up PlanOn license of [facility] Centertart: 20-72-9576AJQPI-19 Vaccine (2022- season)COVID-19 Vaccine (2022- season)On license of [facility] Cent[facility]art: 93-63-4378JskoswmaeCincinnati Shriners Hospitaltart: 09-28-2022 [facility]: 01-23-5136FterjjrzganoWmkaobdmuCincinnati Shriners Hospitaltart: 27-94-0451Srqhmdhb admissionCincinnati Shriners Hospitaltart: 81-30-7449Jbtyhzbuy vaccinationINFLUENZA (#1)[facility]: 92-67-1881TVKGOIV DIRECTIVE DISCUSSIONADVANCE DIRECTIVE DISCUSSIONAultman Orrville Hospitaltart: 05-12-9837NTECVMQH SCREENDIABETES SCREENAultman Orrville Hospitaltart: 52-03-8964KTUL DENSITYBONE DENSITYAultman Orrville Hospitaltart: 77-74-4054NZBRLAWNAVWD: 65+ (1 - PCV)PNEUMOCOCCAL: 65+ (1 - PCV)[facility]: 1985 SHINGRIX VACCINE (1 of 2)SHINGRIX VACCINE (1 of 2)[facility]tart: 72-54-7991Zzknnakdsltcdr of varicella zoster vaccineZoster (Shingles) Vaccine (1 of 2)On [facility] of [facility]: 25-91-9584Idmjw microalbumin profile DTAP,TDAP,TD (1 - Tdap)[facility] Hospitaltart: 40-17-8466YKTVE-19 VACCINE (#1) COVID-19 VACCINE (#1)[facility] HospitalCkzpdz46-qxnnxkmifpbmas D2 [Mass/volume] in Serum or [facility]25-hydroxyvitamin D3 [Mass/volume] in Serum or [facility]25-Hydroxyvitamin D3+25- Hydroxyvitamin D2 [Mass/volume] in Serum or [facility] End: 09-82-4481BJV W Auto Differential panel - BloodCBC auto differential Lab Routine Benign essential HTN 1 Occurrences starting 07/23/2024 until 07/23/2025 [facility] SystemComment on above:1 Occurrences starting 07/23/2024 until 07/23/2025 End: 28-52-5609Dnwqiensfsqql metabolic 2000 panel - Serum or PlasmaComprehensive metabolic panel Lab Routine Benign essential HTN 1 Occurrences starting 07/23/2024 until 07/23/2025[facility] Work Phone: Comment on above:1 Occurrences starting 07/23/2024 until 07/23/2025 End: 31-99-1112Dubiatjeurxkn metabolic 2000 panel - Serum or PlasmaComprehensive metabolic panel Lab Routine Behavioral change Benign essential HTN 1 Occurrences starting 04/09/2024 until 04/09/2025[facility] Work Phone: Comment on above:1 Occurrences starting 04/09/2024 until 04/09/2025 End: 64-79-7084Spgrqhdiexgdnq vitamin b-12Vitamin B12 Lab Routine Deficiency of vitamin B12 1 Occurrences starting 07/23/2024 until 07/23/2025[facility] Health SystemComment on above:1 Occurrences starting 07/23/2024 until 07/23/2025[facility] Work Phone: End: 49-41-3659Skzlkufgwxr [Units/volume] in Serum or PlasmaTSH Lab Routine Benign essential HTN 1 Occurrences starting 07/23/2024 until 07/23/2025ProOhiohealth Berger Hospital SystemComment on above:1 Occurrences starting 07/23/2024 until 07/23/2025 End: 57-74-7965Gyyrzjk D 25 hydroxyVitamin D 25 hydroxy Lab Routine Vitamin D deficiency 1 Occurrences starting 07/23/2024 until 07/24/2025[facility]burgFastr [facility] SystemComment on above:1 Occurrences starting 07/23/2024 until 07/24/2025XR Hip - left 2 [facility] Immunizations Immunization DateImmunizationNotesCare YnunavzeWdzdcsbb58-32-0824pscmzmhyf virus vaccine, unspecified formulationValerie Olvera COMMANDER POLICE RESERVES-BRAND PLANNER Work Phone: [facility] Brevity Jxridn46-82-2067Tzkepufzi Vaccine, Quadrivalent, AdjuvantedValerie Olvera COMMANDER POLICE RESERVES-BRAND PLANNER Work Phone: [facility] Iucmpg43-72-7508nqmtmbahc virus vaccine, unspecified formulationValerie Olvera COMMANDER POLICE RESERVES-BRAND PLANNER Work Phone: [facility] Lptcwc95-58-1078aedeeyryz, seasonal, injectableValerie Olvera COMMANDER POLICE RESERVES-BRAND PLANNER Work Phone: [facility] [employer]vity Bpltpl87-10-1741amupxlvgpwgo polysaccharide vaccine, 23 valentValerie Olvera COMMANDER POLICE RESERVES-BRAND PLANNER Work Phone: [facility] Ttswbw00-24-5280Tyictybrc Vaccine, Quadrivalent, AdjuvantedValerie Olvera COMMANDER POLICE RESERVES-BRAND PLANNER Work Phone: [facility] Pqqkzn66-04-1882HLMAO-77, mRNA, LNP- S, PF, 30mcg/0.3mL DoseValerie Olvera COMMANDER POLICE RESERVES-BRAND PLANNER Work Phone: [facility] Qapmnv16-74-9177DRWYO-04, mRNA, LNP- S, PF, 30mcg/0.3mL DoseValerie Olvera COMMANDER POLICE RESERVES-BRAND PLANNER Work Phone: [facility] Qrgjaw92-27-7805Qcicnyjno, High-dose, QuadrivalentValerie Olvera COMMANDER POLICE RESERVES-BRAND PLANNER Work Phone: [facility] Gtqkrd80-30-2630rndjipqhqu, tetanus toxoids and pertussis vaccineValerie Olvera COMMANDER POLICE RESERVES-BRAND PLANNER Work Phone: [facility] HospitalQvobia22-52-8267Paedchpzx, High-dose, QuadrivalentValerie Olvera COMMANDER POLICE RESERVES-BRAND PLANNER Work Phone: [facility] HospitalDhrolp87-70-8061sutxyvatz, high dose seasonal, preservative-freeValerie Olvera COMMANDER POLICE RESERVES-BRAND PLANNER Work Phone: [facility] HospitalRhlnvt71-09-1647dcdocmrfiato polysaccharide vaccine, 23 valentValerie Olvera COMMANDER POLICE RESERVES-BRAND PLANNER Work Phone: [facility] HospitalFhdhmv79-72-5604mcbucpybf, high dose seasonal, preservative-freeValerie Olvera COMMANDER POLICE RESERVES-BRAND PLANNER Work Phone: [facility] HospitalOlitna75-67-2904nnthiftas, injectable, quadrivalent, preservative freeValerie Olvera COMMANDER POLICE RESERVES-BRAND PLANNER Work Phone: [facility] HospitalPqjdbn27-35-2916qkawqclrgvjb conjugate vaccine, 13 valentValerie Olvera COMMANDER POLICE RESERVES-BRAND PLANNER Work Phone: [facility]06-15-2017tetanus toxoid, reduced diphtheria toxoid, and acellular pertussis vaccine, adsorbedValerie Olvera COMMANDER POLICE RESERVES-BRAND PLANNER Work Phone: [facility] HospitalXhlanl69-70-6594jxwpvdfqm, injectable, quadrivalent, preservative freeValerie Olvera COMMANDER POLICE RESERVES-BRAND PLANNER Work Phone: [facility] HospitalOtjrdp37-32-5649gzsoqnfsa, seasonal, injectable, preservative freeValerie Olvera COMMANDER POLICE RESERVES-BRAND PLANNER Work Phone: [facility] HospitalUqtpew31-40-6950wknvfasnj virus vaccine, whole virusValerie Olvera COMMANDER POLICE RESERVES-BRAND PLANNER Work Phone: [facility] HospitalLxywwp01-57-7580svcsjhacczot vaccine, unspecified formulationValerie Olvera COMMANDER POLICE RESERVES-BRAND PLANNER Work Phone: [facility] HospitalOsytnp72-80-0307dyibiesjb virus vaccine, whole virusValerie Olvera COMMANDER POLICE RESERVES-BRAND PLANNER Work Phone: [facility] [employer] Wievdn04-07-3431pvzjgjvmt virus vaccine, whole virusValerie Olvera COMMANDER POLICE RESERVES-BRAND PLANNER Work Phone: [facility] HospitalVslxjs81-17-5886sonttkhku virus vaccine, whole virusValerie Olvera COMMANDER POLICE RESERVES-BRAND PLANNER Work Phone: [facility] HospitalBgdzcj59-67-1298axccpputp virus vaccine, whole virusValerie Olvera COMMANDER POLICE RESERVES-BRAND PLANNER Work Phone: [facility] HospitalKdqpsd57-86-2157cplhzwgfh virus vaccine, whole virusValerie Olvera COMMANDER POLICE RESERVES-BRAND PLANNER Work Phone: [facility] Payers DatePayer CategoryPayerPolicy ID2025Medicarecare [employer] MEDICARE [id number] [id number]-[id number] [id number] Health [id number] 09.08.840.1.981351.3.57[id number] 2.16.840.1.095123.3.57[id number] 2.16.840.1.707699.3.57[id number] 2.16.840.1.680137.3.57[id number] 2.16.840.1.052801.3.57[id number] 2.16.840.1.246300.3.57[id number] 2.16.840.1.946021.3.57[id number] 2.16.840.1.202099.3.57[id number] 2.16.840.1.512502.3.57[id number] 2.16.840.1.902359.3.57[id number] 2.16.840.1.443007.3.57[id number] 2.16.840.1.22[id number] 2.16.840.1.235662.3.579.2.531 Social History DateTypeDetailFacilityStart: 08-04-2020 End: 59-21-9095Jby Assigned At BirthOn license of [facility] Centertart: 05-28-2014 End: 92-48-8819Vboghra smoking status NHISNever smoked tobaccoMedina Hospital Start: 10-25-2016 End: 07-41-0790Yiclduk intakeCurrent drinker of alcohol (finding)[facility]: 53-23-5540Ioj Assigned At BirthNot on fileAultman Orrville Hospitaltart: 54-38-6070Pbhumni smoking status NHISUnknown if ever smokedCincinnati Shriners Hospitaltart: 21-87-0271Zwn Assigned At BirthFeCleveland Clinic [facility] Hospitaltart: 82-16-1896Zytreio use and exposureSmokeless tobacco non-userOn license of [facility] Centertart: 08-04-2020 End: 39-64-0833Oynoqhk of Social functionWVUMedicine Barnesville HospitalAdolescent depression screening elwdccltti6HtyFsflobOn license of [facility] Centertart: 22-81-5445Hdr Female (finding)[facility] Goals DatePatient GoalDesired Activity/State Functional Status KkmfWuycvtnvqlOpmcyaWjdkhzop98-94-1086Xsxnxwcwna statusPatient Not at Baseline [facility] Work Phone: Mental Status YzoqVxnrthrpvzYxkkspPftytdya99-08-7574Ikdmswlaq functionCognitive Status Patient Not at BaselineKettering Health [facility] Work Phone: Clinical Notes 12-13-2021 to 03-04-2025 Note Date & NbmnQnyhQlyluncb13-61-2133 Miscellaneous Notes* Telephone Encounter - Blu Vargas CNA - 03/04/2025 11:57 AM EDT Attempted to contact patient regarding rescheduling her 04/02 appointment. Per patients niece I will have my , her nephew, Celestino, call back to reschedule . Per patients niece Celestino takes her toall of her appointments due to patient having dementia documented in this encounterWVUMedicine Barnesville Hospital08-12-2025 Telephone encounter Note* Telephone Encounter - Blu Vargas CNA - 03/04/2025 11:57 AM EDT Attempted to contact patient regarding rescheduling her 04/02 appointment. Per patients niece I will have my , her nephew, Celestino, call back to reschedule . Per patients niece Celestino takes her toall of her appointments due to patient having dementia [facility]05-07-2025 History of Present illness Narrative* Ashley Olvera, [employer] - 11/27/2024 11:20 AM EDT Images from the original note were not included. [address] [facility] [id number] SUBJECTIVE: Patient ID: Ananmaria Garcia is a 89 y.o. female. Chief Complaint Patient presents with controlled substance Patient is accompanied by her POA today. She resides in placement assistant living. Memory impaired. Has chronic pain of joints. Takes Meloxicam daily. Overall has been effective. Has only needed tramadol once so far this month. POA reports current medications for pain is effective for Annamaria. Blood pressure is well controlled. 108/58. Hypertension This is a chronic problem. The current episode started more than 1 year ago. The problem is controlled. Pertinent negatives include no chest pain, palpitations or shortness of breath. There are no associated agents to hypertension. Risk factors for coronary artery disease include post-menopausal state, sedentary lifestyle and family history. Past treatments include calcium channel blockers. The current treatment provides significant improvement. There are no compliance problems. The following portions of the patient's history were reviewed and updated as appropriate: allergies, current medications, past family history, past medical history, past social history, past surgicalhistory and problem list. Past Surgical History: Procedure Laterality Date CATARACT EXTRACTION, BILATERAL 07/24/2013 CHOLECYSTECTOMY COLECTOMY 07/24/2015 partial . 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 [...] of Systems Reason unable to perform ROS: POA assist with ROS due to patient's memory. Constitutional: Negative for chills and fever. HENT: Negative. Eyes: Negative for visual disturbance. Respiratory: Negative for chest tightness and shortness of breath. Cardiovascular: Negative for chest pain and palpitations. Gastrointestinal: Negative. Endocrine: Negative. Genitourinary: Negative for menstrual problem and pelvic pain. Musculoskeletal: Negative. Osteoarthritis of joints Allergic/Immunologic: Negative. Neurological: Negative for syncope and facial asymmetry. Hematological: Does not bruise/bleed easily. Psychiatric/Behavioral: Negative. PHYSICAL EXAMINATION: Vitals: 11/27/24 1128 BP: 108/58 BP Site: Left Arm BP Postition: Sitting BP CUFF SIZE: S (7-9 inches) Pulse: 63 Resp: 18 Temp: 36.9 C (98.4 F) TempSrc: Tympanic SpO2: 91% Weight: 38.6 kg (85 lb 3.2 oz) Height: 149.9 cm (4' 11.02 ) Physical Exam Vitals and nursing note [...] normal. ASSESSMENT/PLAN: Annamaria was seen today for controlled substance. 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 Depression Depression: Not at risk (11/27/2024) PHQ-2 PHQ-2 Score: 0 Stable. Continue sertraline 25 mg oral daily 3. Osteoarthritis multiple joints Pain is controlled with meloxicam 7.5 mg oral daily She does take Tylenol PRN Tramadol she rarely takes. One dose administered over this past week. 4. Alzheimer's POA reports memory has declined but there are no longer behavior outbursts/agitation. She currentlyresides at local assisted living who assist with ADLs, meal preparation, supervision, and medication administration. ALL QUESTIONS ANSWERED Total time spent was 25 minutes: Preparing to see the patient (e.g., review of tests) Obtaining and/or reviewing separately obtained history Performing a medically appropriate examination and/or evaluation Counseling and educating the patient/family/caregiver Ordering medications, tests, or procedures Follow-up: 4 months CV. Narcotic agreement. Tramadol. GAGE Guerrero 11/27/24 1243 documented in this [facility]01-07-2025 Miscellaneous Notes* Telephone Encounter - Archana Hammond - 07/30/2024 8:11 PM EST Contract: [id number] re Open Buttock Wounds Advice Request * Telephone Encounter - Archana Hammond - 07/30/2024 8:11 PM EST Call was Connected to Clifton Olvera [employer] cell documented in this [facility] Telephone encounter Note* Telephone Encounter - Archana Hammond - 07/30/2024 8:11 PM EST Contract: [id number] re Open Buttock Wounds Advice Request [facility] [employer] [id number] Telephone encounter Note* Telephone Encounter - Archana Hammond - 07/30/2024 8:11 PM EST Call was Connected to [place]ifton Wade [employer] cell [facility] [id number] History of Present illness Narrative* GAGE Guerrero - 07/23/2024 11:20 AM EST Subjective SUBJECTIVE: Patient ID: Annamaria Garcia is a 88 y.o. female who presents for a Medicare Annual Wellness exam. Presents for annual Medicare Wellness She is accompanied by her nephew. She resides at local assisted living home. All needs are assisted by staff. Has dementia. Annual Exam Pertinent negatives include no chest pain, chills or fever. The following portions of the patient's history were reviewed and updated as appropriate: allergies, current medications, past family history, past medical history, past social history, past surgicalhistory and problem list. Past Surgical History: Procedure Laterality Date CATARACT EXTRACTION, BILATERAL 07/24/2013 CHOLECYSTECTOMY COLECTOMY 07/24/2015 partial . 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 [...] 04/17/2019, 05/09/2022 Pneumococcal, Unspecified 06/28/2012 Tdap 01/05/2017 AWV FLOWSHEET : Lifestyle Assessment Do you smoke or use smokeless tobacco?: No If you smoke or use smokeless tobacco, are you ready to quit?: NA Are you exposed to secondhand smoke?: No On average, how many drinks of alcohol do you consume in a week?: None Do you exercise for 30 or more minutes on average at least 3 days a week?: (!) Never Do you have any tooth, denture, or oral problems?: No Do you snore or has anyone told you that you snore?: No Do you try to eat a balanced diet?: (!) No Do you have difficulty performing any of these activities? (check all that apply): (!) Bathing, Dressing, Grooming, Getting out of a chair, Walking, Using the toilet Do you have difficulty performing any of these activities? (check all that apply): (!) Laundry, Housekeeping, Preparing a meal, Using transportation, Shopping, Paying bills, Managing finances Patient resides at assisted living. Staff assist with medications, food preparation, assistance with ADLS when needed. POA, nephew, assist with transportation and finances. Patient does not have exercise routine; stays active. Eats what she chooses from what is prepared for her. Fall Risk Depression Screening Little interest or pleasure in doing things: Not at all Feeling down, depressed, or hopeless: Not at all Trouble falling or staying asleep, or sleeping too much: Not at all Feeling tired or having little energy: Not at all Poor appetite or overeating: Not at all Feeling bad about yourself - or that you are a failure or have let yourself or your family down: Not at all Trouble concentrating on things, such as reading the newspaper or watching television: Not at all Moving or speaking so slowly that other people could have noticed. Or the opposite - being so fidgety or restless that you have been moving around a lot more than usual: Not at all Thoughts that you would be better off , or of hurting yourself in some way: Not at all Safety Assessment Do you have throw rugs on the floor?: No Do you feel safe at your home?: Yes Do you feel unsteady when walking?: No Are you having difficulty with driving?: N/A Do you have trouble seeing?: (!) Yes What assistive device do you use? (check all that apply): (!) Bath bar/seat, Wheelchair, Walker Hearing Assessment Do you strain or struggle to hear/understand conversations?: (!) Yes Do you have trouble hearing the television or radio when others do not?: (!) Yes Does your family ever voice concerns about your hearing?: (!) Yes Do you wear hearing aid/s?: No Discussed audiology testing. Referral if hearing issues continue. Personal Health During the past 4 weeks, how would you rate your overall health?: Good Do you understand how to take all of your medications?: (!) No How confident are you that you can control and manage most of your health problems?: (!) Not very confident In the past 12 months, how many times have you been hospitalized?: None Patient has memory issues. Needs assistance with decision making when in regards to her health. End of Life Planning Do you have a living will?: Yes Do you have a durable power of legal officer?: Yes Cognitive Screening Do you have trouble remembering or recalling facts or events?: (!) Yes Do family members or caregivers report that you have difficulty remembering things?: (!) Yes Clock Drawing Test: Not Assessed REVIEW OF SYSTEMS: Review of Systems Constitutional: Negative for chills and fever. HENT: Negative. Eyes: Negative for visual disturbance. Respiratory: Negative for chest tightness and shortness of breath. Cardiovascular: Negative for chest pain and palpitations. Gastrointestinal: Negative. Endocrine: Negative. Genitourinary: Negative for menstrual problem and pelvic pain. Musculoskeletal: Negative. Skin: Negative. Allergic/Immunologic: Negative. Neurological: Negative for syncope and facial asymmetry. Hematological: Does not bruise/bleed easily. Psychiatric/Behavioral: Positive for confusion. Objective PHYSICAL EXAMINATION: Vitals: 07/23/24 1124 BP: 110/70 BP Site: Left Arm BP Postition: Sitting Pulse: 68 Resp: 18 Temp: 36.4 C (97.5 F) TempSrc: Oral SpO2: 99% Weight: 42.2 kg (93 lb) Height: 149.9 cm (4' 11 ) . Relevant Labs: No results found for: HGBA1C No results found for: MICROALBUR , URINECREAT , ALBCREATRA Lab Results Component Value Date TSH 2.86 03/13/2023 TSH 2.15 11/16/2021 Lab Results Component Value Date VITD25 39.8 10/31/2022 VITD25 41.1 09/21/2022 Lab Results Component Value Date WBC 7.0 07/13/2023 RBCCOUNT 3.56 (L) 07/13/2023 HGB 11.5 (L) 07/13/2023 HCT 33.8 (L) 07/13/2023 MCV 95 07/13/2023 MCH 32.2 07/13/2023 MCHC 33.9 07/13/2023 RDW 13.2 07/13/2023 PLT 285 07/13/2023 MPV 8.1 07/13/2023 No results found for: PSA Lab Results Component Value Date SODIUM 140 04/09/2024 K 3.8 04/09/2024 CL 100 04/09/2024 CO2 33 (H) 04/09/2024 ANIONGAP 7 04/09/2024 BUN 11 04/09/2024 GLU 92 04/09/2024 CALCIUM 9.6 04/09/2024 TOTALPROTEI 6.7 04/09/2024 ALBUMIN 3.7 04/09/2024 ALKPHOS 101 04/09/2024 AST 13 04/09/2024 ALT 9 04/09/2024 GFR >60 11/16/2021 GFR >60 11/16/2021 Imaging: No results found. Physical Exam Vitals and nursing note reviewed. [...] 2 seconds. Neurological: Mental Status: She is alert and oriented to person, place, and time. Deep Tendon Reflexes: Reflexes are normal and symmetric. Psychiatric: Mood and Affect: Mood normal. Behavior: Behavior normal. Thought Content: Thought content normal. Judgment: Judgment normal. Assessment/Plan ASSESSMENT/PLAN Annamaria was seen today for annual exam. Diagnoses and all orders for this visit: Medicare annual wellness visit, subsequent Benign essential HTN - Comprehensive metabolic panel; Future - CBC auto differential; Future - TSH; Future Deficiency of vitamin B12 - Vitamin B12; Future Vitamin D deficiency - Vitamin D 25 hydroxy; Future The OARRS/MAPPS database was reviewed today and found to be appropriate. No indication of medication diversion, or non compliance. Yearly wellness labs drawn in office today Total time spent was 30 minutes: Preparing to see the patient (e.g., review of tests) Obtaining and/or reviewing separately obtained history Performing a medically appropriate examination and/or evaluation Counseling and educating the patient/family/caregiver Ordering medications, tests, or procedures No follow-ups on file. There are no Patient Instructions on file for this visit. GAGE Guerrero 07/23/24 1155 documented in this encounterWVUM[facility]09-17-2024 History of Present illness Narrative* GAGE Guerrero - 04/09/2024 11:00 AM EDT Images from the original note were not included. [address] [facility] [id number] SUBJECTIVE: Patient ID: Annamaria Garcia is a 88 y.o. female. Chief Complaint Patient presents with Urinary Tract Infection Patient resides at assistive living. She is accompanied by her POA, nephew today. Nephew states she has been experiencing behavior changes. She wandered out of the facility on Monday, staff found her outside in the parking lot. Nursing is concerned she may have a UTI. She now has memory ankle bracelet on for safety. She is cooperative in office today. The following portions of the patient's history were reviewed and updated as appropriate: allergies, current medications, past family history, past medical history, past social history, past surgicalhistory and problem list. Past Surgical History: Procedure Laterality Date CATARACT EXTRACTION, BILATERAL 07/24/2013 CHOLECYSTECTOMY COLECTOMY 07/24/2015 partial . 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 Musculoskeletal: Negative. Skin: Negative. Allergic/Immunologic: Negative. Neurological: Negative for syncope and facial asymmetry. Hematological: Does not bruise/bleed easily. Psychiatric/Behavioral: Positive for behavioral problems. PHYSICAL EXAMINATION: Vitals: 04/09/24 1112 BP: 142/70 BP Site: Left Arm BP Postition: Sitting Pulse: 64 Resp: 20 Temp: 36.5 C (97.7 F) TempSrc: Oral SpO2: 97% Weight: 38.6 kg (85 lb) Height: 149.9 cm (4' 11 ) [...] normal. ASSESSMENT/PLAN: Annamaria was seen today for urinary tract infection. Diagnoses and all orders for this visit: Behavioral change - POCT urinalysis dipstick only - Comprehensive metabolic panel; Future Benign essential HTN - Comprehensive metabolic panel; Future Urine dip reveals elevated ph, otherwise negative. Lab draw for CMP. Assess kidney function. She now has memory bracelet on for safety at facility due to dementia. ALL QUESTIONS ANSWERED Total time spent was 25 minutes: Preparing to see the patient (e.g., review of tests) Obtaining and/or reviewing separately obtained history Performing a medically appropriate examination and/or evaluation Counseling and educating the patient/family/caregiver Ordering medications, tests, or procedures Follow-up: Next scheduled Sooner if needed GAGE Guerrero 04/09/24 1240 documented in this encounterWV[facility]09-16-2024 Miscellaneous Notes* Telephone Encounter - Laura Padilla - 04/08/2024 1:59 PM EDT Patients linda called and said the patient has a UTI and was wondering if we would be able to bring her in * Telephone Encounter - GAGE Guerrero - 04/08/2024 1:59 PM EDT Check tomorrow schedule. We have nothing for today * Telephone Encounter - Laura Padilla - 04/08/2024 1:59 PM EDT 11:00 same day is all * Telephone Encounter - GAGE Guerrero - 04/08/2024 1:59 PM EDT Put her in * Telephone Encounter - Laura Padilla - 04/08/2024 1:59 PM EDT She's in documented in this encounterWV[facility]09-16-2024 Telephone encounter Note* Telephone Encounter - Laura Padilla - 04/08/2024 1:59 PM EDT Patients linda called and said the patient has a UTI and was wondering if we would be able to bring her in [facility]09-16-2024 Telephone encounter Note* Telephone Encounter - GAGE Guerrero - 04/08/2024 1:59 PM EDT Check tomorrow schedule. We have nothing for today [facility]09-16-2024 Telephone encounter Note* Telephone Encounter - Laura Padilla - 04/08/2024 1:59 PM EDT 11:00 same day is all [facility]09-16-2024 Telephone encounter Note* Telephone Encounter - GAGE Guerrero - 04/08/2024 1:59 PM EDT Put her in [facility]09-16-2024 Telephone encounter Note* Telephone Encounter - Laura Padilla - 04/08/2024 1:59 PM EDT She's in [facility]08-28-[facility] History of Present illness Narrative* Ashley Olvera, KH[employer]AND PLANNER - 03/20/2024 11:20 AM EDT Images from the original note were not included. [address] [place] [id number] SUBJECTIVE: Patient ID: Annamaria Garcia is a 88 y.o. female. Chief Complaint Patient presents with controlled Presents for narcotic agreement follow up. She is accompanied by her nephew, Celestino. Nephew reports arthralgia pain has been controlled. Has not needed tramadol this month for pain. Istaking Mobic 7.5 mg oral daily. Moods have been stable. Arthritis Pertinent negatives include no fever. The following portions of the patient's history were reviewed and updated as appropriate: allergies, current medications, past family history, past medical history, past social history, past surgicalhistory and problem list. Past Surgical History: Procedure Laterality Date CATARACT EXTRACTION, BILATERAL 07/24/2013 CHOLECYSTECTOMY COLECTOMY 07/24/2015 partial . 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 HENT: Negative. Eyes: Negative for visual disturbance. Respiratory: Negative for chest tightness and shortness of breath. Cardiovascular: Negative for chest pain and palpitations. Gastrointestinal: Negative. Endocrine: Negative. Genitourinary: Negative for menstrual problem and pelvic pain. Musculoskeletal: Positive for arthralgias and arthritis. Skin: Negative. Allergic/Immunologic: Negative. Neurological: Negative for syncope and facial asymmetry. Hematological: Does not bruise/bleed easily. Psychiatric/Behavioral: Negative. PHYSICAL EXAMINATION: Vitals: 03/20/24 1132 BP: 140/70 BP Site: Left Arm BP Postition: Sitting Pulse: 64 Resp: 18 Temp: 36.7 C (98 F) TempSrc: Oral SpO2: 97% Weight: 41.2 kg (90 lb 12.8 oz) Height: 149.9 cm (4' 11 ) [...] 2 seconds. Neurological: Mental Status: She is alert and oriented to person, place, and time. Deep Tendon Reflexes: Reflexes are normal and symmetric. Psychiatric: Mood and Affect: Mood normal. Behavior: Behavior normal. Thought Content: Thought content normal. Judgment: Judgment normal. ASSESSMENT/PLAN: Annamaria was seen today for controlled. 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 Was recently moved to ground floor for closer supervision from staff. No reported behaviors or outbursts. ALL QUESTIONS ANSWERED Total time spent was 25 minutes: Preparing to see the patient (e.g., review of tests) Obtaining and/or reviewing separately obtained history Performing a medically appropriate examination and/or evaluation Counseling and educating the patient/family/caregiver Ordering medications, tests, or procedures Follow-up: Medicare wellness GAGE Guerrero 03/20/24 1233 documented in this encounterWVUMed[facility]07-08-2024 Miscellaneous Notes* Telephone Encounter - Dotty Crooks - 01/29/2024 10:24 AM EDTSummary: PT discharge PT from [facility] called to report patient has reached her baseline and was being dischargedfrom PT today. [facility] nurse will notify PT if any regression is noticed. documented in this encounterKettering Health MiamisburgFastr Paul [facility] Memorial [id number] Telephone encounter Note* Telephone Encounter - Dotty Crooks - 01/29/2024 10:24 AM EDT Summary: PT discharge PT from [facility] PT [facility] called to report patient has reached her baseline and was being dischargedfrom PT today. [facility] nurse will notify PT if any regression is noticed. [facility] SouthSun[facility] Communication [employer] [id number] History of Present illness Narrative* Ashley Olvera APRN-[facility] - 11/21/2023 11:40 AM EDT Images from the original note were not included. [address] [facility] [id number] SUBJECTIVE: Patient ID: Annamaria Garcia is a 88 y.o. female. Chief Complaint Patient presents with Follow-up Er/ broken ribs Patient is accompanied by her nephew, Celestino. She was seen at [facility] on 11/14/23 for unwitnessed fall. She was found on the floor in her apartment complaining of right sided rib pain. Subsequently, resulting in 9th right sided rib pain. Today, she reports the pain is tolerable, doing much better now. Follow-up Pertinent negatives include no chest pain, chills or fever. The following portions of the patient's history were reviewed and updated as appropriate: allergies, current medications, past family history, past medical history, past social history, past surgicalhistory and problem list. Past Surgical History: Procedure Laterality Date CATARACT EXTRACTION, BILATERAL 07/24/2013 CHOLECYSTECTOMY COLECTOMY 07/24/2015 partial . colon cancer COLONOSCOPY 07/24/2015 EYE SURGERY Bilateral 07/24/2013 blephoplasty FRACTURE SURGERY Left Hip Past Medical History: Diagnosis Date B12 deficiency Colonic cancer (CMS-HCC) s/p robotic resection. 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 HENT: Negative. Eyes: Negative for visual disturbance. Respiratory: Negative for chest tightness and shortness of breath. Cardiovascular: Negative for chest pain and palpitations. Endocrine: Negative. Genitourinary: Negative for menstrual problem and pelvic pain. Musculoskeletal: Negative. Fracture rib Skin: Negative. Allergic/Immunologic: Negative. Neurological: Negative for syncope and facial asymmetry. Hematological: Does not bruise/bleed easily. Psychiatric/Behavioral: Negative. PHYSICAL EXAMINATION: Vitals: 11/21/23 1144 BP: 140/70 BP Site: Left Arm BP Postition: Sitting Pulse: 78 Resp: 18 Temp: 36.7 C (98.1 F) SpO2: 96% Weight: 44.5 kg (98 lb 3.2 oz) Height: 149.9 cm (4' 11 ) [...] There is no abdominal tenderness. Musculoskeletal: General: Tenderness present. Normal range of motion. Cervical back: Normal range of motion and neck supple. Comments: Right lower rib cage. No visual swelling or crepitus. Lymphadenopathy: Cervical: No cervical adenopathy. Skin: General: Skin is warm and dry. Capillary Refill: Capillary refill takes less than 2 seconds. Neurological: Mental Status: She is alert and oriented to person, place, and time. Deep Tendon Reflexes: Reflexes are normal and symmetric. Psychiatric: Mood and Affect: Mood normal. Behavior: Behavior normal. Thought Content: Thought content normal. Judgment: Judgment normal. ASSESSMENT/PLAN: Annamaria was seen today for follow-up. Diagnoses and all orders for this visit: Closed fracture of one rib of right side with routine healing, subsequent encounter Patient is doing very well with recovery. She reports very little pain, compared to week prior. Is currently taking Tylenol and has tramadol PRN available for pain. ALL QUESTIONS ANSWERED Total time spent was 25 minutes: Preparing to see the patient (e.g., review of tests) Obtaining and/or reviewing separately obtained history Performing a medically appropriate examination and/or evaluation Counseling and educating the patient/family/caregiver Ordering medications, tests, or procedures Follow-up: Next scheduled Sooner if needed Ashley Olvera, KHURRAM-BRAND PLANNER 11/21/23 1303 documented in this encounterGrace Cottage HospitalSwitch Identity Governance [id number] History of Present illness Narrative* GAGE Guerrero - 10/25/2023 11:30 AM EDT Images from the original note were not included. [address] [place] [id number] SUBJECTIVE: Patient ID: Annamaria Garcia is a [...] or fever. The symptoms are aggravated by standing,walking, twisting, exertion and bending. She has tried oral narcotics, position changes, rest, lying down, NSAIDs and acetaminophen for the symptoms. The treatment provided moderate relief. The following portions of the patient's history were reviewed and updated as appropriate: allergies, current medications, past family history, past medical history, past social history, past surgicalhistory and problem list. Past Surgical History: Procedure Laterality Date CATARACT EXTRACTION, BILATERAL 07/24/2013 CHOLECYSTECTOMY COLECTOMY 07/24/2015 partial . colon cancer COLONOSCOPY 07/24/2015 EYE SURGERY Bilateral 07/24/2013 blephoplasty FRACTURE SURGERY Left Hip Past Medical History: Diagnosis Date B12 deficiency Colonic cancer (CMS-HCC) s/p robotic resection. 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 Resides at assisted living in [place]. ALL QUESTIONS ANSWERED Total time spent was 25 minutes: Preparing to see the patient (e.g., review of tests) Obtaining and/or reviewing separately obtained history Performing a medically appropriate examination and/or evaluation Counseling and educating the patient/family/caregiver Ordering medications, tests, or procedures Follow-up: 4 months GAGE Guerrero 10/25/23 1251 documented in this encounterWVUMedicine [facility]03-18-2024 Miscellaneous Notes* Telephone Encounter - Justus Gastelum CMA - 10/09/2023 1:[address] and would like the recent Scripts sent to [facility] instead of the other pharmacy that was listed. [phone] documented in this encounterWVUMedicine [facility]03-18-2024 Telephone encounter Note* Telephone Encounter - Justus Gastelum CMA - 10/09/2023 1:[address] called and would like the recent Scripts sent to [facility] instead of the other pharmacy that was listed. [phone] [facility]03-18-[facility] History of Present illness Narrative* GAGE Guerrero - 10/09/2023 11:20 AM EDT Images from the original note were not included. [address] [facility] [place] [address] Patient ID: Annamaria Garcia is a 88 y.o. female. Transition of Care Diagnosis on Discharge: Hypertensive urgency, Left lower lobe penumonia Name of Discharging Facility: [facility] Date of Facility Discharge: October 02, 2023 Date of Interactive Contact and Name of Machine Compositor: Medication Reconciliation Completed: Yes Medication Reconciliation Questions/Concerns: [...] Services Utilized/Needed by the Patient: [facility] Home care / PT *Additional Questions/Concerns Requiring PCP Follow-Up: Pain control for arthritis SUBJECTIVE: Patient ID: Annamaria Garcia is a 88 y.o. female. Chief Complaint Patient presents with Hypertension [facility] follow up 09/29-10/01 Hypertension This is [...] past medical history, past social history, past surgicalhistory and problem list. REVIEW OF SYSTEMS: Review [...] GAGE Guerrero 10/09/23 1307 documented in this encounterWVUMedicine [facility]03-06-2024 History of Present illness Narrative* GAGE Guerrero - 09/27/2023 3:40 PM EST Images from the original note were not included. [address] [place] [address] SUBJECTIVE: Patient ID: Annamaria Garcia is a 88 y.o. female. Chief Complaint Patient presents with ER follow up. Rash on lower legs and face Is accompanied by her POA, nephew today. Nephew states she has a rash for over one month on lower legs. Rash on face started approximately 2weeks ago. Was started on Medrol dose pack approximately 3 weeks ago. Rash did improve about 50% but returned worse. Family took her to [facility] ER last week for evaluation. Ordered another Medrol dose packand clobetasol cream. Has not resolved. There is [...] past medical history, past social history, past surgicalhistory and problem list. Past Surgical History: Procedure Laterality Date CATARACT EXTRACTION, BILATERAL 07/24/2013 CHOLECYSTECTOMY COLECTOMY 07/24/2015 partial . 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 Documented By: Mimi Artis APRN 10/02/22 1240 Signed By: <Electronically signed by KHURRAM Artis> 10/02/22 1244 <Electronically signed by Gordon You MD> 10/02/22 2120 [facility] Work Phone: 1(249) 302-825503-12-2023 Progress note Author Gordon You [facility] October 02, 2022 9:16pmNote Date/TimeMarch 2022 12:12pmW[place]ita[place] [address] Hospitalist Progress Note Signed Patient: Annamaria Garcia MR#: [id number] : 1935 Acct:[id number] Age/Sex: 87 / F Adm Date: 3 Loc: 4N Room: 5C7555-8 Type: ADM IN Attending Dr: Gordon You [...] the plan of care and confirmed the BRAND PLANNER's written note. Documented By: Mimi Artis APRN 10/01/22 1207 Signed By: <Electronically signed by KHURRAM Artis> 10/01/22 1213 <Electronically signed by Gordon You MD> 10/02/22 211 [facility] Work Phone: 1(526) 989-142003-12-2023 Progress note Author Leighton Valente [facility] October 02, 2022 12:49pmNote Date/TimeMar2022 12:43pmWichita[place] [address] Orthopedic Progress Note Signed Patient: Annamaria Garcia MR#: [id number] : 1935 Acct:[id number] Age/Sex: 87 / F Adm Date: 3 Loc: Room: [address] [place] [address] Type: ADM IN Attending Dr: Gordon You [...] % (Auto) 72.4 Lymph % (Auto) 12.7 Nicollet % (Auto) 13.6 Eos % (Auto) 1.0 Baso % (Auto) 0.3 Nucleat RBC Rel Count 0.0 Neut # (Auto) 5.3 Lymph # (Auto) 0.9 L Nicollet # (Auto) 1.0 H Eos # (Auto) [...] <Electronically signed by MD Leighton Valente> 10/02/22 [facility]9 [facility] Work Phone: 1(846) 960-701603-10-2023 Progress note Author Yani Cyr [facility] September 30, 2022 4:42pmNote Date/TimeMar2022 12:30pmWichita[place] [address] Hospitalist Progress Note Signed Patient: Annamaria Garcia MR#: [id number] : 1935 Acct:[id number] Age/Sex: 87 / F Adm Date: 3 Loc: 4N Room: [address] [place] [address] Type: ADM IN Attending Dr: Yani Cyr MD Copies to: ~ Date of Service: 09/30/2022 Subjective Subjective Narrative: Patient seen and examined at bedside. No acute events overnight. Resting comfortably in chair, doesnot appear to be in a lot of [...] signed by Yani Cyr MD> 09/30/22 1642 [facility] Work Phone: 1(464) 505-987103-09-2023 Progress note Author Leighton Valente [facility] September 29, 2022 12:30pmNote Date/TimeMarch 2022 7:53[place] [id number] Orthopedic Progress Note Signed Patient: Annamaria Garcia MR#: [id number] : 1935 Acct:[id number] Age/Sex: 87 / F Adm Date: 3 Loc: 4N Room: [address] [place] [address] Type: ADM IN Attending Dr: Adama Kothari [...] signed by MD Leighton Valente> 09/29/22 1230 [facility] Work Phone: 1(726) 732-982903-09-2023 Consult note Author Leighton Valente [facility] September 29, 2022 7:45amNote Date/TimeMarch 2022 7:39[place] [address] Orthopedic Consult Note Signed Patient: Annamaria Garcia MR#: [id number] : 1935 Acct:[id number] Age/Sex: 87 / F Adm Date: 3 Loc: 4 Room: 3M6462-2 Type: ADM IN Attending Dr: Adama Kothari MD Copies to: MD Leighton Paul MD Valerie J Castillo NP-C~ History of Present Illness HPI Consult date: 09/29/2022 Requesting provider: Adama Kothari MD History of present illness: Patient is an 87-year-old female who sustained a fall with complaints of left hip pain.. [facility] at [facility]. [facility] have demonstrated displaced left intertrochanteric hip fracture. Review of Systems Review of Systems All other systems reviewed & are negative unless noted below or in HPI PMFSH Vaccinated for COVID-19?: Yes Medical History (Updated 09/29/22 @ 05:21 by Cary Zabala, LIANA) Anemia Dementia Frequent falls HTN (hypertension) Surgical [...] % (Auto) 87.9, Lymph % (Auto) 4.7, Nicollet % (Auto) 7.4, Eos % (Auto)0.0, Baso % (Auto) 0.0, Nucleat RBC Rel Count 0.1, Neut # (Auto) 10.7 H, Lymph #(Auto) 0.6 L, Nicollet # (Auto) 0.9 H, Eos # (Auto) [...] signed by MD Leighton Valente> 09/29/22 0745 [facility] Work Phone: 1(120) 362-111103-08-2023 History and physical note Author Juliet Green [facility] September 28, 2022 9:41pmNote Date/TimeMar 2022 4:41[place] [address] Hospitalist H&P Signed Patient: Annamaria Garcia MR#: [id number] : 1935 Acct:[id number] Age/Sex: 87 / F Adm Date: 3 Loc: 4N Room: [address] [place] [address] Type: ADM IN Attending Dr: Adama Kothari MD Copies to: MD Juliet Paul MD Valerie J Castillo AIR ROUTE TRAFFIC CONTROLLER-C~ HPI DATE OF EXAMINATION: 09/28/22 CHIEF COMPLAINT: hip fx HISTORY OF PRESENT ILLNESS: 87 years old female sustained what it seems mechanical fall, without any prodromal symptoms at home, where she lives alone, and presented to [facility] emergency room where she was diagnosed with [...] she complained of left hip pain otherwise shedenied any complaints. The patient's niece was at [...] <Electronically signed by Juliet Green MD> 09/28/22 2149 [facility] Work Phone: 1(967) 456-666603-08-2023 Progress note Author Adama [facility] September 28, 2022 7:19pmNote Date/TimeMarch 2022 10:[address] [place] [address] Hospitalist Progress Note Signed Patient: Annamaria Garcia MR#: [id number] : 1935 Acct:[id number] Age/Sex: 87 / F Adm Date: 3 Loc: 4N Room: 7J1601-7 Type: ADM IN Attending Dr: Adama Kothari MD Copies to: ~ Date of Service: 09/28/2022 Subjective Subjective Narrative: Patient seen and examined with family in the room, just medicated and resting comfortably. No chestpain, on 2 L of oxygen via nasal [...] Meq Kcl IV 09/28/23 05:29 75 mls/hr .[id number] XIAO Administration Lactated Ringer's 1,000 mls @ [...] signed by Adama Kothari MD> 09/28/22 1919 [facility] Work Phone: 1(196) 934-292103-08-2023 Hospital Discharge instructions Additional Instructions SNF Physician: [...] Mepilex border foam to Coccyx for protection. [facility] Work Phone: 1(426) 112-426809-26-2022 NoteHNO ID: [id number] Author: Storm Russell APRN.POWER CHECKER Service: ? Author Type: Nurse Specialist Type: Progress Notes Filed: 04/21/2022 7:19 AM Note Text: [facility] NOTE NAME: STANISLAW GARCIA NO.: [id number] DATE OF SERVICE: 04/18/2022 [facility] [...] no supplement. DICTATED BY: SARAH Bliss/Bernice JOB# [id number] cc:[facility]09-21-2022 NoteHNO ID: [id number] Author: Storm Russell APRN.POWER CHECKER Service: ? Author Type: Nurse Specialist Type: Progress Notes Filed: 04/14/2022 3:59 PM Note Text: [facility] NOTE NAME: ANNAMARIA GARCIACHELI NO.: [id number] DATE OF SERVICE: 04/13/2022 [facility] [...] supportive care. DICTATED BY: SARAH Bliss/Bernice JOB# [id number] cc:[facility]09-21-2022 History of Present illness Narrative* Storm Russell APRN.POWER CHECKER - 04/13/2022 12:[address] [facility] NOTE NAME: ANNAMARIA GARCIARAMONSANDRO NO.: [id number] DATE OF SERVICE: 04/13/2022 [facility] [...] supportive care. DICTATED BY: SARAH Bliss JOB# [id number] cc:[facility] documented in this encounterMedina Hospital09-16-2022 NoteHNO ID: [id number] Author: Storm Russell APRN.CNS Service: ? Author Type: Nurse Specialist Type: Progress Notes Filed: 04/11/2022 7:39 PM Note Text: [facility] NOTE NAME: STANISLAW GARCIA NO.: [id number] DATE OF SERVICE: 04/08/2022 [facility] [...] normal range. DICTATED BY: SARAH Bliss JOB# [id number] cc:[facility]09-16-2022 History of Present illness Narrative* Storm Russell APRN.POWER CHECKER - 04/08/2022 12:[address] [facility] NOTE NAME: STANISLAW GARCIA NO.: [id number] DATE OF SERVICE: 04/08/2022 [facility] [...] normal range. DICTATED BY: SARAH Bliss/Bernice JOB# [id number] cc:[facility] documented in this encounterMedina Hospital09-13-2022 NoteHNO ID: [id number] Author: Debra Vásquez Service: ? Author Type: Physician Type: Progress Notes Filed: 04/06/2022 5:49 PM Note Text: [facility] NOTE NAME: STANISLAW GARCIA NO.: [id number] DATE OF SERVICE: 04/05/2022 [facility] DATE OF : 1935 NEW PATIENT HISTORY AND PHYSICAL HISTORY OF PRESENT ILLNESS: Patient is an 86-year-old female, who is admitted to us from [facility] with a diagnoses of acute nondisplaced [...] she knew that she was somewhere is [place]. She is aware of having had a [...] hospital. DICTATED BY: MD ROCHELLE Silverio/Bernice JOB# [id number] cc:[facility]09-13-2022 History of Present illness Narrative* Debra Vásquez - 04/05/2022 12:[address] [facility] NOTE NAME: STANISLAW GARCIA NO.: [id number] DATE OF SERVICE: 04/05/2022 [facility] DATE OF : 1935 NEW PATIENT HISTORY AND PHYSICAL HISTORY OF PRESENT ILLNESS: Patient is an 86-year-old female, who is admitted to us from [facility] with a diagnoses of acute nondisplaced [...] she knew that she was somewhere is [place]. She is aware of having had a [...] hospital. DICTATED BY: MD ROCHELLE Silverio/Bernice JOB# [id number] cc:[facility] documented in this encounterMedina Hospital05-23-2022 Evaluation note* Encounter Date Diagnosis Assessment Notes Treatment Notes Treatment Clinical Notes November, Unspecified fall, initial encoun ter (ICD-10 - W19.XXXA) November,ight hip pain (ICD-10 - M25.551)It is recommended that she go to the emergency room of your choice for further evaluation of your head injury and hip pain after falling at home. Patient and niece verbalized understanding and agreement with above plan, states she will go to [facility] for further evaluation. Patient states the pain is worsening with time and is unable to bear weight on the right leg. She lives in a split-level home and is concerned about using crutches at home. November,Unspecified place in unspecified non-institutional (private) residence as the place of occurrence of the external cause (ICD-10 - Y92.009) November,Injury of head, initial encounter (ICD-10 - S09.90XA) [employer] Other Evaluation note* Diagnosis Onset Date Resolution Status Fall acuteHip fracture, leftacute [facility] Work Phone: Evaluation noteNo InformationNort LastRoom Other Evaluation note* Diagnosis Medicare annual wellness visit, subsequent- Primary Benign essential HTN Deficiency of vitamin B12 Vitamin D deficiency documented [facility]* Diagnosis Deficiency of vitamin B12 documented in this encounter [facility]* Diagnosis Closed fracture of one rib of right side with routine healing, subsequent encounter- Primary documented in this encounter [facility]* Diagnosis Rash and nonspecific skin eruption- Primary Rash and other nonspecific skin eruption 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 ([facility]) Malignant neoplasm of colon, unspecified part of colon (CMS-HCC) documented in this encounter [facility]* Diagnosis Arthritis, multiple joint involvement Unspecified arthropathy, multiple sites documented in this encounter [facility]* Diagnosis Pneumonia of left lower lobe due to infectious organism- Primary Benign essential HTN Arthritis, multiple joint involvement Unspecified arthropathy, multiple sites Rash and nonspecific skin eruption Rash and other nonspecific skin eruption documented in this encounter [facility]* Diagnosis Arthritis, multiple joint involvement- Primary Unspecified arthropathy, multiple sites Benign essential HTN documented in this encounter [facility]* Diagnosis Arthritis, multiple joint involvement- Primary Unspecified arthropathy, multiple sites History of healed osteoporosis fracture Decreased mobility and endurance documented in this encounter [facility]* Diagnosis Benign essential HTN- Primary 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 ([facility]) documented in this encounter [facility]* Diagnosis Behavioral change- Primary Benign essential HTN documented in this encounter [facility]* Diagnosis Benign essential HTN- Primary 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 * Yearly Physical for Adults ([facility]) documented in this encounterProOhiohealth [facility] SystemInstructionsNot on file documented in this encounterProOhiohealth [facility] Hospital SystemInstructionsNot on file documented in this [facility] SystemInstructions* Attachments The following attachments cannot be sent through Care Everywhere. * Rib Fracture Discharge Instructions ([facility] [place]) documented in this encounterProOhiohealth [facility] Hospital SystemInstructionsNot on file documented in this encounterCincinnati [facility] SystemInstructions* Attachments The following attachments cannot be sent through Care Everywhere. * Skin Rash ([facility] [place]) documented in this encounterProAt[facility] Brevity SystemInstructionsNot on file documented in this encounterCincinnati [facility] SystemInstructions* Attachments The following attachments cannot be sent through Care Everywhere. * Joint Pain ([facility] [place]) documented in this encounterProAtrium [facility] Brevity SystemInstructionsNot on file documented in this encounterCincinnati [facility]rin[facility] Hospital SystemInstructions* Attachments The following attachments cannot be sent through Care Everywhere. * Chronic pain ([place]) documented in this [facility]Aden[facility] SystemInstructions* Attachments The following attachments cannot be sent through Care Everywhere. * Controlling your blood pressure through lifestyle ([place]) documented in this [facility] Brevity SystemInstructions* Attachments The following attachments cannot be sent through Care Everywhere. * High blood pressure in adults ([place]) documented in this [facility] SystemInstructions* Attachments The following attachments cannot be sent through Care Everywhere. * High Blood Pressure Discharge Instructions ([place]) documented in this [facility] SystemReason for referral (narrative)* Consultation (Routine) - Pending ReviewSpecialtyDiagnoses / ProceduresReferred By ContactReferred To ContactDermatology Diagnoses Rash and nonspecific skin eruption Ashley Olvera, COMMANDER POLICE RESERVES-BRAND PLANNER [address] [place] [address] Shawanda Cintron MD [address], [facility] [address] [place] [address] Referral IDStatusReasonStart DateExpiration DateVisits RequestedVisits [id number] Review Specialty Services Required / [facility] Advance Directives TypeDate RecordedPatient RepresentativeExplanationAdvance Directive(s)04/04/2016 12:27 PM Advance Directive Response Recorded Date/ Time Advance Directives No September 28 2:49am TypeDate RecordedPatient RepresentativeExplanationAdvance Directive04/11/2023 3:23 PMPOA 04/11/23Advance Directive03/08/2023 11:14 AMguardianship 03/08/2023Type Date RecordedPatient RepresentativeExplanationAdvance Directive04/11/2023 3:23 PM POA 04/11/23Advance Directive03/08/2023 11:14 AMguardianship 03/08/2023 Summary Purpose Family History No Family History Records FoundNo Family History Records FoundNo Family History Records FoundNo Family History Records FoundNo Family History Records FoundNo Family History Records Found Chief Complaint and Reason for Visit Chief Complaint L femoral head fract ure Reason for Visit Fall Hip fracture, left Reason for Referral SpecialtyDiagnoses / ProceduresReferred By ContactReferred To Contact Diagnoses Arthritis, multiple joint involvement Ashley Olvera, GAGE [address] [place] [address] Referral IDStatusReasonStart DateExpiration DateVisits RequestedVisits [id number] [id number] Additional Source Comments REASON FOR VISIT (unrecogniz ed section and content) ReasonCommentsAnnual ExamMedicareReasonOnset DateCommentsAdvice Only07/30/2024 ReasonCommentsFollow-upEr/ broken ribsReasonCommentsER follow up. Rash on lower legs and faceReasonCommentsHypertensionTbh follow up 09/29-10/01ReasonComments Back PainBack pain for a few weeksReasonCommentscontrolledReasonCommentsUrinary Tract InfectionReasonCommentscontrolled substance Source Comments (unrecognize d section and content) In the event this informatio n is protected by the Federal Confidentiality of Alcohol and Drug Abuse Patient Records regulations: The Federal rules restrict any use of the information to criminally investigate or prosecute any alcohol or drug abuse patient.Med[facility] HospitalIn the event this information is protected by the Federal Confidentiality of Alcohol and Drug Abuse Patient Records regulations: The Federal rules restrict any use of the information to criminally investigate or prosecute any alcohol or drug abuse patient.Medina HospitalIn the event this information is protected by the Federal Confidentiality of Alcohol and Drug Abuse Patient Records regulations: The Federal rules restrict any use of the information to criminally investigate or prosecute any alcohol or drug abuse patient.[facility] Care Teams (unrecognized sec tion and content) Team MemberRelationshipSpecialtyStart DateEnd Date Richard He PCP - GeneralFamily Qgynsibo83/16/14Team MemberRelationshipSpecialtyStart Date End Date Richard He PCP - GeneralFamily Bnpozrfc27/16/14 Team Status: Active Member Role Status Dates JULES Guerrero Primary Care Provider Active Team Status: Inactive Member Role Status Dates Ashley J Olvera , [employer] Primary Care Provider Active Juliet Green , MDAdmit ProviderActiveTheleno Valente , Other ProviderActive Galen Escobar MDOther ProviderActiveCovic Van MDOther ProviderActive Silvestre Saunders DOOther ProviderActiveRobdanis Moses II, MDOther Provider ActiveYani Cyr , MDAttending ProviderActiveTeam MemberRelationshipSpecialty Start DateEnd Date Ashley Olvera [employer] [address] [place] [address] PCP - [facility] Zqgumweo87/31/19Team MemberRelationshipSpecialtyStart Date End Date Ashley Olvera [facility] [address] [place] [address] PCP - [facility]07/23/19Team MemberRelationshipSpecialtyStart Date End Date Ashley [facility] [address] [place] [address] PCP - [facility] Wtovbvow31/31/19Team MemberRelationshipSpecialtyStart Date End Date Ashley Olver[facility] [address] [place] [address] [facility] - [facility]udy[facility]xwg[facility]/31/19Team MemberRelationshipSpecialtyStart Date End Date Ashley [facility]vera [facility] [address] [place] [address] [facility] - [facility] Hmllhbld24/31/19Team MemberRelationshipSpecialtyStart Date End Date Ashley Olvera [employer] [facility] [address] [place] [address] PCP - [facility]07/23/19Te MemberRelationshipSpecialtyStart Date End Date Ashley Olvera [employer] [facility] [address] [place] [address] PCP - [facility]07/23/19Te MemberRelationshipSpecialtyStart Date End Date Ashley Olvera [employer] [facility] [address] [place] [address] PCP - [facility]07/23/19Te MemberRelationshipSpecialtyStart Date End Date Ashley Olvera [employer] [facility] [address] [place] [address] PCP - [facility]07/23/19Te MemberRelationshipSpecialtyStart Date End Date Ashley Olvera [employer] [facility] [address] [place] [address] PCP - [facility]07/23/19Te MemberRelationshipSpecialtyStart Date End Date Reagan Mckeon, [employer] [facility] [address] [place] [address] PCP - GeneralInternal Medicine03/04/25 INFORMATION SOURCE (unrecogn ized section and content) DATE CREATED AUTHOR 04/25/2022 [facility] DATE CREATED AUTHOR AUTHOR'S ORGANIZ ATION 10/17/2022 [facility] DATE CREATED AUTHOR AUTHOR'S ORGANIZ ATION 10/17/2022 [facility] DATE CREATED AUTHOR AUTHOR'S ORGANIZ ATION 11/08/2023 [facility] DATE CREATED AUTHOR AUTHOR'S ORGANIZ ATION 07/25/2024 [facility] DATE CREATED AUTHOR AUTHOR'S ORGANIZ ATION 11/30/2024 [facility] [employer] FOR RECORDS PERTAINING TO PATIENTS [...] BE BASED ON THE PRIMARY CLINICAL RECORDS. [employer] [facility]. provides no warranty or guarantee of the accuracy or completeness of information in this document.
--- NOTE | 2025-05-19 09:54 | ED.GENADUL1 ---
HPI HPI - General Adult General Chief complaint: Fall Stated complaint: FALL Time Seen by Provider: 05/19/25 07:48 Source: other Source information: squad Mode of arrival: ambulance Limitations: altered mental status History of Present Illness HPI narrative: The patient is a 89 years old female is presenting to the ER after the longterm called and the EMS because they are worried that she might have had a fall. Apparently they did not have a nurse overnight and the patient was found to be in the position in her bed she also have a history of dementia and it is hard to evaluate her mental condition as she is as a baseline confused. The patient presented to us here holding her currently bear denying any complaint and not showing any distress When asked if she have any pain the patient did point to her left leg and knee Related Data Home Medications ?Medication ?Instructions ?Recorded ?Confirmed acetaminophen 325 mg tablet 325 mg PO Q6H PRN fever or pain 04/10/23 08/30/24 (Tylenol) aspirin 325 mg capsule 325 mg PO DAILY 04/10/23 08/30/24 calcium 600 mg (as carbonate)-vit 1 tab PO DAILY 04/10/23 08/30/24 D3 20 mcg (800 unit) chewable tablet (Caltrate plus D) cholecalciferol (vitamin D3) 50 50 mcg PO DAILY 04/10/23 08/30/24 mcg (2,000 unit) capsule ferrous sulfate 325 mg (65 mg 325 mg PO DAILY 04/10/23 08/30/24 iron) tablet,delayed release sertraline 25 mg tablet 25 mg PO Q24H 04/10/23 08/30/24 diphenhydramine HCl 25 mg capsule 25 mg PO Q4H PRN itching 09/30/23 08/30/24 (Allergy (diphenhydramine)) amlodipine 5 mg tablet 10 mg PO QD 08/30/24 08/30/24 meloxicam 7.5 mg tablet 7.5 mg PO DAILY 08/30/24 08/30/24 Previous Rx's ?Medication ?Instructions ?Recorded clobetasol 0.05 % topical cream 1 applic topical DAILY 2 weeks #60 09/22/23 grams amoxicillin 875 mg-potassium 1 tab PO BID 7 days #14 tabs 10/02/23 clavulanate 125 mg tablet lidocaine 5 % topical patch 1 patch topical DAILY #30 ea 10/02/23 (Lidoderm) tramadol 50 mg tablet 50 mg PO Q8H PRN pain #20 tabs 10/02/23 Allergies Allergy/AdvReac Type Severity Reaction Status Date / Time No Known Drug Allergies Allergy Verified 12/06/23 19:53 Opioid HPI Opioid Management Most Recent Opioid Data: Last Pain Scale 7 10/02/23, 10:38 Last Pain Intensity 6 10/02/23, 10:38 Last ORT Total Score 0 10/01/23, 03:53 Last ORT Risk Category Low Risk 10/01/23, 03:53 Review of Systems ROS Status of ROS 10 or more systems reviewed and unremarkable except as noted in history and below [facility] Medical History (Updated 05/19/25 @ 09:58 by Jenifer Jacobs MD) Acute hyponatremia ?E87.1 - Hypo-osmolality and hyponatremia (ICD-10) Acute back pain ?M54.9 - Dorsalgia, unspecified (ICD-10) Keratitis ?H16.9 - Unspecified keratitis (ICD-10) Rash and nonspecific skin eruption ?R21 - Rash and other nonspecific skin eruption (ICD-10) Ankle sprain and strain ?S93.409A - Sprain of unspecified ligament of unspecified ankle, initial encounter (ICD-10) ?S96.919A - Strain of unspecified muscle and tendon at ankle and foot level, unspecified foot, initial encounter (ICD-10) Acute anterior epistaxis ?R04.0 - Epistaxis (ICD-10) Chronic mastoiditis, 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 - Chronic mastoiditis, right ear (ICD-10) Bilateral fracture of pubic rami with routine healing ?S32.591D - Other specified fracture of right pubis, subsequent encounter for fracture with routine healing (ICD-10) ?S32.592D - Other specified fracture of left pubis, subsequent encounter for fracture with routine healing (ICD-10) Pubic bone fracture ?S32.509A - Unspecified fracture of unspecified pubis, initial encounter for closed fracture (ICD-10) Hip fracture, intertrochanteric ?S72.143A - Displaced intertrochanteric fracture of unspecified femur, initial encounter for closed fracture (ICD-10) H/O fracture of hip ?Z87.81 - Personal history of (healed) traumatic fracture (ICD-10) Closed sacral fracture ?S32.10XA - Unspecified fracture of sacrum, initial encounter for closed fracture (ICD-10) Dementia ?F03.90 - Unspecified dementia, unspecified severity, without behavioral disturbance, psychotic disturbance, mood disturbance, and anxiety (ICD-10) Osteoporosis ?M81.0 - Age-related osteoporosis without current pathological fracture (ICD-10) Social History (Updated 10/01/23 @ 03:49 by Caity Arteaga RN) Within the past year, how often did you have a drink containing alcohol: never Score interpretation: A score less than 3 is consistent with normal alcohol consumption. Smoking status: Former smoker Non-prescribed substance use: denies use Gender Identity: female Exam Narrative Exam Narrative: Nurses notes and vital signs reviewed and patient is not hypoxic. General: Well-appearing and in no apparent distress. Skin: Warm, dry, no pallor noted. No rash. Head: Normocephalic, atraumatic. Neck: Supple, non-tender. Eye: Pupils are equal, round and EOMI. No scleral icterus. Ears, Nose, Mouth, and Throat: TM are clear, no nasal mucosal hypertrophy. Oral mucosa is moist, no posterior oropharynx erythema, uvula is mid-line Cardiovascular: Regular Rate and Rhythm without murmur, gallop or rub. Respiratory: No accessory muscle use or respiratory distress. Lungs are clear to auscultation, no wheezing, rales or rhonchi Chest Wall: no tenderness Back: It was noted that the patient have tenderness at the mid to lower thoracic intervertebral line. No signs of trauma Musculoskeletal: normal ROM, no calf or popliteal tenderness, no lower extremity edema/swelling GI: Abdomen is soft, non-distended. Normal bowel sounds. No masses appreciated. No tenderness to palpation. No rebound, guarding, or rigidity noted. Neurological: A&O x1. No cranial nerve dysfunction observed. Psychiatric: Cooperative and interactive. Normal mood and affect. Constitutional Vital Signs, click to edit/add: Last Vital Signs Temp 97.4 F L 05/19/25 07:41 Pulse 63 05/19/25 07:41 Resp 18 05/19/25 07:41 BP 171/85 H 05/19/25 07:41 Pulse Ox 97 05/19/25 07:41 O2 Del Method Room Air 05/19/25 07:41 Course Vital Signs Vital signs: Vital Signs Temperature 97.4 F L 05/19/25 07:41 Pulse Rate 63 05/19/25 07:41 Respiratory Rate 18 05/19/25 07:41 Blood Pressure 171/85 H 05/19/25 07:41 Pulse Oximetry 97 05/19/25 07:41 Oxygen Delivery Method Room Air 05/19/25 07:41 Temperature 97.4 F L 05/19/25 07:41 Pulse Rate 63 05/19/25 07:41 Respiratory Rate 18 05/19/25 07:41 Blood Pressure 171/85 H 05/19/25 07:41 Pulse Oximetry 97 05/19/25 07:41 Oxygen Delivery Method Room Air 05/19/25 07:41 Medical Decision Making MDM Narrative Medical decision making narrative: The patient did have a CT head and neck that showed no acute significant pathology X-ray of the patient thoracic spine obtained with tenderness although the patient was not tender over time sometimes she was tender in some time she was not and I did do the evaluation multiple times. The patient Thursby spine shows multiple level of compression fracture and there is progression at T12 . The reading of the x-ray; AP and lateral views were obtained. There is osteopenia. There is thoracolumbar dextroscoliotic curvature. No significant displacement is seen. There are compression fractures at T6, T8 and T11 which were present previously. There is moderate worsening compression deformity at T12. There is continued compression deformity at L2. Mild endplate spurring is seen. There are no paraspinal soft tissue abnormalities. Right now the patient does not have any significant pain there is no weakness or any alarming symptoms at the moment but the patient finding was delivered to the caring staff with the instruction about fall precaution and further evaluation of the compression fracture in case the patient complained of pain The patient also had a CBC and chemistry showing no acute significant pathology and her vitals in the ER were within normal The patient to follow-up with the primary care within 2 to 3 days and to come back to the ER in case of any worsening of the current symptoms or any new symptoms or concerns Lab Data Labs: Lab Results 05/19/25 Range/Units 08:00 WBC 6.4 (4.0-11.0) 10^3/uL RBC 3.88 L (4.20-5.40) 10^6/uL Hgb 12.5 (12.0-16.0) g/dL Hct 37.0 (36.0-48.0) % MCV 95.4 (81.0-99.0) fL MCH 32.2 (26.7-34.0) pg MCHC 33.8 (29.9-35.2) g/dL RDW 12.8 (11.0-15.0) % Plt Count 311 (150-450) 10^3/uL MPV 9.4 L (9.5-13.5) fL Neut % (Auto) 66.0 (43.0-75.0) % Lymph % (Auto) 21.2 (20.5-60.0) % [place] % (Auto) 10.6 (1.7-12.0) % Eos % (Auto) 1.4 (0.9-7.0) % Baso % (Auto) 0.6 (0.2-2.0) % Neut # (Auto) 4.2 (1.4-6.5) 10^3/uL Lymph # (Auto) 1.4 (1.2-3.8) 10^3/uL [place] # (Auto) 0.7 (0.3-0.8) 10^3/uL Eos # (Auto) 0.1 (0.0-0.7) 10^3/uL Baso # (Auto) 0.0 (0.0-0.1) 10^3/uL Abs Immat Gran (auto) 0.01 (0.00-0.03) 10^3/uL Imm/Tot Granulo (auto) 0.2 (0.0-0.5) % Sodium 146 H (136-145) mmol/L Potassium 3.5 (3.5-5.1) mmol/L Chloride 105 (98-107) mmol/L Carbon Dioxide 33.6 H (21.0-32.0) mmol/L Anion Gap 10.9 BUN 16.0 (7.0-18.0) mg/dL Creatinine 0.37 L (0.55-1.02) mg/dL Est GFR ( Amer) >60 (>=60 mL/min/1.73m^2) Est GFR (Non-Af Amer) >60 (>=60 mL/min/1.73m^2) BUN/Creatinine Ratio 43.2 Glucose 93 (74-106) mg/dL Calcium 9.8 (8.5-10.1) mg/dL Total Bilirubin 0.4 (0.2-1.0) mg/dL AST 18 (15-37) U/L ALT 19 (14-59) U/L Alkaline Phosphatase 62 (46-116) U/L Total Protein 7.0 (6.4-8.2) g/dL Albumin 3.3 L (3.4-5.0) g/dL Globulin 3.7 g/dL Albumin/Globulin Ratio 0.9 Discharge Plan Discharge Chief Complaint: Fall Clinical Impression: Fall, Compression of thoracic vertebra, Osteopenia Patient Disposition: Home, Self-Care Time of Disposition Decision: 09:56 Condition: Good Prescriptions / Home Meds: No Action clobetasol 0.05 % cream 1 applic topical DAILY 14 Days Qty: 60 1RF meloxicam 7.5 mg tablet 7.5 mg PO DAILY amlodipine 5 mg Tablet 10 mg PO QD sertraline 25 mg tablet 25 mg PO Q24H ferrous sulfate 325 mg (65 mg iron) tablet,delayed release (DR/EC) 325 mg PO DAILY cholecalciferol (vitamin D3) 50 mcg (2,000 unit) capsule 50 mcg PO DAILY Rx Instructions: 1000 units daily aspirin 325 mg capsule 325 mg PO DAILY Caltrate 600 plus D 600 mg-20 mcg (800 unit) tablet,chewable 1 tab PO DAILY acetaminophen [Tylenol] 325 mg tablet 325 mg PO Q6H PRN (Reason: fever or pain) diphenhydramine HCl [Allergy (diphenhydramine)] 25 mg capsule 25 mg PO Q4H PRN (Reason: itching) amoxicillin-pot clavulanate 875-125 mg tablet 1 tab PO BID 7 Days Qty: 14 0RF lidocaine [Lidoderm] 5 % adhesive patch,medicated 1 patch topical DAILY Qty: 30 0RF Rx Instructions: leave on most painful area (tailbone/lumbar spine) for up to 12 hrs tramadol 50 mg tablet 50 mg PO Q8H PRN (Reason: pain) Qty: 20 0RF Print Language: Bolivian Instructions: Fall Prevention (ED) Additional Instructions: Please continue to control the pain with Tylenol the patient was not in any significant pain when she was in the ER Right now the patient have a compression fracture in multiple levels which mostly old not new but there is progression of one of the vertebra at T12, patient have no significant pain at the moment and the treatment usually is supportive unless the patient pain is not controlled Referrals: ASHLEY BONILLA [Primary Care Provider, Unknown] - 1 week
== END 2025-05-19 12:25 | disposition home or self-care (01) ==
PROVIDERS: Emergency Provider Emergency Medicine; PCP Nurse Practitioner
DX: M48.54XA Collapsed vertebra, not elsewhere classified, thoracic region, initial encounter for fracture (principal); M85.80 Other specified disorders of bone density and structure, unspecified site; F03.90 Unspecified dementia, unspecified severity, without behavioral disturbance, psychotic disturbance, mood disturbance, and anxiety; Z91.81 History of falling
CPT/HCPCS: 36415; 70450; 72070; 72125; 73502; 73560; 76376; 80053; 85025; 99285